=== PATIENT | female | born 1955 | race Caucasian/White ===

== ENCOUNTER → 2016-11-01 | Outpatient (CLI) | payer BC, OTHER ==
[~2016-11-01] MED LIST: ACET-2267 PO; AMLO5TAB2 PO; CCLB10TRX; CIPR500T4 PO; FLUT1DIS26 IH; IBP800T; LEVO50TA6 PO; ONDA4TAB11 PO; POTA10TA10 PO; PRD20T PO; RT-ALBUINH IH; SIMV20TA3 PO; SULF-222 PO; TRIA1TAB3 PO; TRIAMTERENE/HCTZ; VENL150T PO; VNL75CCR
== END ==
LOC: RT 13:11
PROVIDERS: ATTEND Internal Medicine
DX: J84.9 Interstitial pulmonary disease, unspecified (principal)
CPT/HCPCS: 94060; 94726; 94729

== ENCOUNTER → 2017-04-04 | Outpatient (CLI) | payer BC ==
[2017-04-04 16:05] LABS: BASOPHILS % (AUTO) 1 % (0-10); EOSINOPHILS # (AUTO) 0.1 10^3/uL (0.0-0.3); EOSINOPHILS % (AUTO) 1 % (0-10); LYMPHOCYTES % (AUTO) 32 % (12-44); MEAN CORPUSCULAR HEMOGLOBIN 28 PG (25-34); MEAN CORPUSCULAR HGB CONC 32 G/DL (32-36); MEAN CORPUSCULAR VOLUME 87 FL (80-99); MEAN PLATELET VOLUME 10.1 FL (7.4-10.4); MONOCYTES % (AUTO) 16 % (0-12); NEUTROPHILS # (AUTO) 3.2 X 10^3 (1.8-7.8); NEUTROPHILS % (AUTO) 50 % (42-75); PLATELET COUNT 321 10^3/uL (130-400); RED BLOOD COUNT 4.64 10^6/uL (4.35-5.85); RED CELL DISTRIBUTION WIDTH 13.3 % (10.0-14.5); WHITE BLOOD COUNT 6.4 10^3/uL (4.3-11.0)
== END ==
LOC: LAB 15:46
DX: Z51.81 Encounter for therapeutic drug level monitoring (principal)
CPT/HCPCS: 36415; 85025

== ENCOUNTER → 2017-04-21 | Outpatient (CLI) | payer BC ==
[2017-04-21 15:44] LABS: ALBUMIN 4.1 GM/DL (3.2-4.5); BILIRUBIN,TOTAL 0.3 MG/DL (0.1-1.0); CALCIUM 10.1 MG/DL (8.5-10.1); CREATININE SERUM 1.37 MG/DL (0.60-1.30); POTASSIUM 3.7 MMOL/L (3.6-5.0); TOTAL PROTEIN 6.9 GM/DL (6.4-8.2); hs C REACTIVE PROTEIN 0.47 MG/DL (0.00-0.50)
--- NOTE | 2017-04-21 19:19 | Diagnostic Imaging Report ---
Three views of the right knee. INDICATION: Right knee pain. FINDINGS: No fracture, dislocation or radiopaque foreign body is seen. No suprapatellar effusion is noted. IMPRESSION: Unremarkable exam. Dictated by: Dictated on workstation # [id number]
[2017-04-23 13:34] LABS: ALDOLASE 4.3 U/L (1.5-8.1)
== END ==
LOC: RAD 14:54
PROVIDERS: ATTEND Internal Medicine Rheumatology
DX: M25.561 Pain in right knee (principal); M33.21 Polymyositis with respiratory involvement
CPT/HCPCS: 36415; 73562; 80053; 82085; 82550; 82784; 85652; 86141

== ENCOUNTER → 2017-08-03 | Outpatient (CLI) | payer BC | LOC: RT 14:59 | PROVIDERS: ATTEND Internal Medicine | DX: J84.9 Interstitial pulmonary disease, unspecified (principal) ==

== ENCOUNTER 2017-09-16 11:37 | Outpatient (RCR) | payer BC ==
[2017-09-16 12:33] LABS: BASOPHILS % (AUTO) 0 % (0-10); EOSINOPHILS # (AUTO) 0.1 10^3/uL (0.0-0.3); EOSINOPHILS % (AUTO) 1 % (0-10); HEMATOCRIT 46 % (35-52); HEMOGLOBIN 15.2 G/DL (11.5-16.0); LYMPHOCYTES # (AUTO) 1.6 X 10^3 (1.0-4.0); LYMPHOCYTES % (AUTO) 20 % (12-44); MEAN CORPUSCULAR HEMOGLOBIN 28 PG (25-34); MEAN CORPUSCULAR HGB CONC 33 G/DL (32-36); MEAN CORPUSCULAR VOLUME 86 FL (80-99); MEAN PLATELET VOLUME 9.7 FL (7.4-10.4); MONOCYTES # (AUTO) 1.3 X 10^3 (0.0-1.0); MONOCYTES % (AUTO) 16 % (0-12); NEUTROPHILS # (AUTO) 5.1 X 10^3 (1.8-7.8); NEUTROPHILS % (AUTO) 63 % (42-75); PLATELET COUNT 287 10^3/uL (130-400); RED BLOOD COUNT 5.39 10^6/uL (4.35-5.85); RED CELL DISTRIBUTION WIDTH 14.3 % (10.0-14.5); WHITE BLOOD COUNT 8.2 10^3/uL (4.3-11.0)
== END 2017-12-15 | disposition home or self-care (01) ==
LOC: LAB 11:37
PROVIDERS: ATTEND Internal Medicine Rheumatology
DX: Z51.81 Encounter for therapeutic drug level monitoring (principal); Z79.899 Other long term (current) drug therapy
CPT/HCPCS: 36415; 85025

== ENCOUNTER → 2017-09-16 | Outpatient (CLI) | payer BC ==
--- NOTE | 2017-09-16 13:13 | Diagnostic Imaging Report ---
PROCEDURE: CT chest without contrast. TECHNIQUE: Multiple contiguous axial images were obtained through the chest without the use of intravenous contrast. INDICATION: Interstitial lung disease, followup. Comparison is made with prior CT from 07/15/2015. No axillary lymphadenopathy is detected. Hilar and mediastinal evaluation is limited without intravenous contrast but no gross abnormality is seen. No pericardial or pleural fluid is identified on today's study. There has been significant improvement in the patchy bilateral airspace infiltrates when compared to examination from June 2015. Many infiltrates have largely cleared. The minimal residual patchy airspace infiltrates right upper lobe as well as superior segment of the right lower lobe, right middle lobe and lingula are seen. Some minimal patchy infiltrate in the left lower lobe. Left lower lobe, image 17 is noted measuring 3 mm. This was likely present on prior exam, however, was obscured by numerous infiltrates at this location. Tiny nodule subpleural posterolateral right lower lobe is seen, image 30 measuring 4 mm. No other abnormality is seen. Upper abdomen is unremarkable. IMPRESSION: Patchy bilateral upper and lower lobe pulmonary infiltrates, however, this is significantly improved when compared with prior CT from 07/15/2015. There has been resolution of previously noted small bilateral pleural effusions as well. Dictated by: Dictated on workstation # [id number]
== END ==
LOC: RAD 11:40
PROVIDERS: ATTEND Internal Medicine
DX: J84.9 Interstitial pulmonary disease, unspecified (principal); R91.8 Other nonspecific abnormal finding of lung field
CPT/HCPCS: 71250

== ENCOUNTER 2018-09-30 10:00 | Inpatient (IN) | payer SELFPAY ==
[~2018-09-30] VITALS: Ht 154.9 cm; Wt 76.8 kg
[2018-09-30] VITALS (12 sets, daily range): BP systolic 132–162; BP diastolic 69–99
[~2018-09-30 10:00] MED LIST changes: -AMLO5TAB2 PO; +AMLO5TAB9 PO
[2018-09-30] MEDS ORDERED: NS IV 1000 ML 1,000 ML IV ONE ×2 (10:27→11:25)
[2018-09-30 10:35] LABS: BASOPHILS % (AUTO) 0 % (0-10); EOSINOPHILS % (AUTO) 0 % (0-10); HEMATOCRIT 47 % (35-52); HEMOGLOBIN 15.5 G/DL (11.5-16.0); LYMPHOCYTES # (AUTO) 1.9 X 10^3 (1.0-4.0); LYMPHOCYTES % (AUTO) 10 % (12-44); MEAN CORPUSCULAR HEMOGLOBIN 28 PG (25-34); MEAN CORPUSCULAR HGB CONC 33 G/DL (32-36); MEAN CORPUSCULAR VOLUME 84 FL (80-99); MONOCYTES # (AUTO) 2.2 X 10^3 (0.0-1.0); MONOCYTES % (AUTO) 12 % (0-12); NEUTROPHILS # (AUTO) 14.6 X 10^3 (1.8-7.8); NEUTROPHILS % (AUTO) 78 % (42-75); PLATELET COUNT 402 10^3/uL (130-400); RED CELL DISTRIBUTION WIDTH 14.9 % (10.0-14.5); WHITE BLOOD COUNT 18.7 10^3/uL (4.3-11.0)
[2018-09-30] MEDS ORDERED: METO-352 PO (10:38)
[2018-09-30] MEDS ORDERED: VENL150C PO (10:38)
[2018-09-30] MEDS ORDERED: GABA-486 PO (10:38)
[2018-09-30] MEDS ORDERED: GABA-488 PO (10:38)
[2018-09-30] MEDS ORDERED: CLON0.1T PO (10:38)
[2018-09-30] MEDS ORDERED: METO-370 PO (10:38)
[2018-09-30] MEDS ORDERED: MYCO500T34 PO (10:38)
[2018-09-30 10:48] LABS: ALBUMIN 3.8 GM/DL (3.2-4.5); BILIRUBIN,TOTAL 0.4 MG/DL (0.1-1.0); CALCIUM 9.8 MG/DL (8.5-10.1); CREATININE SERUM 2.5 MG/DL (0.60-1.30); POTASSIUM 3.6 MMOL/L (3.6-5.0); TOTAL PROTEIN 6.6 GM/DL (6.4-8.2)
--- NOTE | 2018-09-30 10:49 | ED General ---
General Chief Complaint: Dizziness/Syncope Stated Complaint: NAUSEA, DIZZY, PAIN IN RIGHT LEG, SWEATING Nursing Triage Note: PT PRESENTS TO ED WITH COMPLAINTS OF NAUSEA, DIZZINESS, BILATERAL UPPER THIGH PAIN, L MEDIAL BACK PAIN, AND INCREASED SWEATING. PT STATES WHEN SHE GOT TO WORK THIS AM SHE DID NOT FEEL WELL, MORE TIRED THAN USUAL AND BECAME DIZZY AND DIAPHORETIC. PT HAS HX OF AUTOIMMUNE DZ AND PER DAUGHTER OVER THE PAST MONTH HAS HAD ISSUES WITH HER ELECTROLYTES AND CREATININE LEVELS. Nursing Sepsis Screen: No Definite Risk Source of Information: Patient, Family Exam Limitations: No Limitations History of Present Illness Date Seen by Provider: Sep 30, 2018 Time Seen by Provider: 10:17 Initial Comments This 62-year-old woman presents to the emergency room with complaints of dizziness, diaphoresis, leg aches, nausea, mild cough, and diarrhea this morning. She has multiple chronic problems including interstitial lung disease and polymyositis. She last received a Rituxan injection about 4 days ago. She had previously been on CellCept and is to restart it but has not due to insurance issues. She is afebrile and mildly tachycardic. She also reports increasing creatinine recently. She reports her last creatinine was 1.7 and she is to have it rechecked by Dr. Maya. Dr. Maya is her primary care provider. 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 Eliseo Sorto at [facility]. Allergies and Home Medications Allergies Coded Allergies: No Known Drug Allergies (Verified , 09/01/07) Home Medications Clonidine HCl 0.1 Mg Tablet, 0.1 MG PO DAILY, (Reported) Gabapentin 300 Mg Capsule, 300 MG PO HS, (Reported) Gabapentin 100 Mg Capsule, 100 MG PO DAILY, (Reported) Levothyroxine Sodium 50 Mcg Tablet, 50 MCG PO HS, (Reported) Metoprolol Succinate 50 Mg Tab.er.24h, 50 MG PO DAILY, (Reported) Metoprolol Succinate 50 Mg Tab.er.24h, 50 MG PO DAILY, (Reported) Mycophenolate Mofetil 500 Mg Tablet, 500 MG PO BID, (Reported) Potassium Chloride 10 Meq Tablet.er, 10 MEQ PO DAILY, (Reported) Venlafaxine HCl 150 Mg Cap.er.24h, 150 MG PO DAILY, (Reported) Patient Home Medication List Home Medication List Reviewed: Yes Review of Systems Review of Systems Constitutional: see HPI EENTM: no symptoms reported Respiratory: see HPI Cardiovascular: other (tachycardia) Gastrointestinal: see HPI Genitourinary: see HPI Musculoskeletal: see HPI Skin: no symptoms reported Psychiatric/Neurological: No Symptoms Reported Hematologic/Lymphatic: No Symptoms Reported Immunological/Allergic: see HPI Past Dvqbdok-Dwpbed-Mqxfyo Hx Past Med/Social Hx: Reviewed and Corrections made Patient Social History Alcohol Use: Denies Use Recreational Drug Use: No Smoking Status: Never a Smoker 2nd Hand Smoke Exposure: No Recent Foreign Travel: No Contact w/Someone Who Travel: No Recent Infectious Disease Expo: No Recent Hopitalizations: Yes (CHILDBIRTH ONLY) Past Medical History Surgeries: Yes (ORAL WORK ONLY) Gallbladder Respiratory: Yes (inerstitial lung disease) Cardiac: Yes High Cholesterol, Hypertension Neurological: Yes Neuropathy Reproductive Disorders: No Genitourinary: Yes (HISTORY OF ACUTE RENAL FAILURE) Gastrointestinal: No (RECENT DIAHRREA) Gastroesophageal Reflux Musculoskeletal: Yes (polymyositis) Endocrine: Yes (OVERLAP SYNDROME) Hypothyroidsim HEENT: No Loss of Vision: Denies Hearing Impairment: Denies Cancer: No Psychosocial: Yes Anxiety Integumentary: No Blood Disorders: No Adverse Reaction/Blood Tranf: No Family Medical History No Pertinent Family Hx Physical Exam Vital Signs Vital Signs - First Documented 09/30/18 09/30/18 10:20 14:05 Temp 96.7 Pulse 105 Resp 20 B/P (MAP) 133/80 (97) Pulse Ox 93 O2 Delivery Room Air Capillary Refill : Less Than 3 Seconds Height, Weight, BMI Height: 5'1.00" Weight: 170lbs. 6.0oz. 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63 MMOL/L (0.50-2.00) *H 1.43 MMOL/L (0.50-2.00) Progress/Results/Core Measures Suspected Sepsis Recent Fever Within 48 Hours: No Infection Criteria Present: None New/Unexplained Altered Menta: No Sepsis Screen: No Definite Risk SIRS Temperature:96.7 Pulse: 105 Respiratory Rate: 20 Laboratory Tests 09/30/18 10:00: White Blood Count 18.7H Blood Pressure 133 /80 Mean: 97 09/30/18 11:42: Lactic Acid Level 2.63*H 09/30/18 13:58: Lactic Acid Level 1.43 Laboratory Tests 09/30/18 10:00: Creatinine 2.50H, Platelet Count 402H, Total Bilirubin 0.4 Results/Orders Lab Results Laboratory Tests Test 09/30/18 10:00 09/30/18 11:42 09/30/18 13:58 Range/Units White Blood Count 18.7 H 4.3-11.0 10^3/uL Red Blood Count 5.62 4.35-5.85 10^6/uL Hemoglobin 15.5 11.5-16.0 G/DL Hematocrit 47 35-52 % Mean Corpuscular Volume 84 80-99 FL Mean Corpuscular Hemoglobin 28 25-34 PG Mean Corpuscular Hemoglobin Concent 33 32-36 G/DL Red Cell Distribution Width 14.9 H 10.0-14.5 % Platelet Count 402 H 130-400 10^3/uL Mean Platelet Volume 10.0 7.4-10.4 FL Neutrophils (%) (Auto) 78 H 42-75 % Lymphocytes (%) (Auto) 10 L 12-44 % Monocytes (%) (Auto) 12 0-12 % Eosinophils (%) (Auto) 0 0-10 % Basophils (%) (Auto) 0 0-10 % Neutrophils # (Auto) 14.6 H 1.8-7.8 X 10^3 Lymphocytes # (Auto) 1.9 1.0-4.0 X 10^3 Monocytes # (Auto) 2.2 H 0.0-1.0 X 10^3 Eosinophils # (Auto) 0.0 0.0-0.3 10^3/uL Basophils # (Auto) 0.0 0.0-0.1 10^3/uL Neutrophils % (Manual) 87 % Lymphocytes % (Manual) 4 % Monocytes % (Manual) 9 % Eosinophils % (Manual) 0 % Basophils % (Manual) 0 % Band Neutrophils 0 % Blood Morphology Comment NORMAL Erythrocyte Sedimentation Rate 1 0-30 MM/HR Sodium Level 139 135-145 MMOL/L Potassium Level 3.6 3.6-5.0 MMOL/L Chloride Level 105 98-107 MMOL/L Carbon Dioxide Level 21 21-32 MMOL/L Anion Gap 13 5-14 MMOL/L Blood Urea Nitrogen 25 H 7-18 MG/DL Creatinine 2.50 H 0.60-1.30 MG/DL Estimat Glomerular Filtration Rate 20 BUN/Creatinine Ratio 10 Glucose Level 144 H 70-105 MG/DL Calcium Level 9.8 8.5-10.1 MG/DL Corrected Calcium 10.0 8.5-10.1 MG/DL Total Bilirubin 0.4 0.1-1.0 MG/DL Aspartate Amino Transf (AST/SGOT) 22 5-34 U/L Alanine Aminotransferase (ALT/SGPT) 13 0-55 U/L Alkaline Phosphatase 99 40-136 U/L Total Creatine Kinase 164 29-168 U/L Myoglobin 432.8 H 10.0-92.0 NG/ML C-Reactive Protein High Sensitivity 2.14 H 0.00-0.50 MG/DL Total Protein 6.6 6.4-8.2 GM/DL Albumin 3.8 3.2-4.5 GM/DL Lactic Acid Level 2.63 *H 1.43 0.50-2.00 MMOL/L Micro Results Microbiology 09/30/18 Influenza Types A,B Antigen (KELLY) - Final, Complete My Orders Orders - AFSHIN TAI MD Cbc With Automated Diff (09/30/18 10:27) Comprehensive Metabolic Panel (09/30/18 10:27) Creatine Kinase (09/30/18 10:27) Hs C Reactive Protein (09/30/18 10:27) Ua Culture If Indicated (09/30/18 10:27) Influenza A And B Antigens (09/30/18 10:27) Erythrocyte Sedimentation Rate (09/30/18 10:27) Myoglobin Serum (09/30/18 10:27) Saline Lock/Iv-Start (09/30/18 10:27) Chest Pa/Lat (2 View) (09/30/18 10:27) Ns Iv 1000 Ml (Sodium Chloride 0.9%) (09/30/18 10:27) Manual Differential (09/30/18 10:00) Ns Iv 1000 Ml (Sodium Chloride 0.9%) (09/30/18 11:25) Blood Culture (09/30/18 11:33) Lactic Acid Analyzer (09/30/18 11:33) Piperacillin/Tazobactam (Bulk) (Zosyn In (09/30/18 12:30) Methylprednisolone Sod Succ (Solu-Medrol (09/30/18 12:30) Saline Lock/Iv-Start (09/30/18 12:24) Ns Iv 500 Ml (Sodium Chloride 0.9%) (09/30/18 12:24) Bladder Scan (09/30/18 12:34) General/Regular (09/30/18 Lunch) Medications Given in ED Current Medications Medications Dose Ordered Sig/Shannan Route Start Time Stop Time Status Last Admin Dose Admin Sodium Chloride 500 ml @ 0 mls/hr Q0M ONCE IV 09/30/18 12:24 09/30/18 12:25 DC 09/30/18 14:40 0 MLS/HR Sodium Chloride 1,000 ml @ 0 mls/hr Q0M ONCE IV 09/30/18 10:27 09/30/18 10:29 DC 09/30/18 10:42 0 MLS/HR Sodium Chloride 1,000 ml @ 0 mls/hr Q0M ONCE IV 09/30/18 11:25 09/30/18 11:26 DC 09/30/18 11:44 0 MLS/HR Vital Signs/I&O 09/30/18 09/30/18 09/30/186/19 10:20 14:00 14:05 14:15 Temp 96.7 98.2 Pulse 105 67 77 Resp 20 20 20 B/P (MAP) 133/80 (97) 161/78 (105) 142/69 Pulse Ox 93 98 95 95 O2 Delivery Room Air Room Air Capillary Refill : Less Than 3 Seconds Blood Pressure Mean: 97 Progress Note #1: Time: 11:45 Progress Note Patient has been seen and evaluated. Labs have been reviewed. She has a leukocytosis of 18. Also myoglobin is mildly elevated but CK is normal. Creatinine has bumped up to 2.5. She will receive a second liter of IV fluid. She has not yet been able to urinate to provide a urine specimen. There is suspicion of new interstitial lung disease involvement in the right midlung versus infiltrate. In the context of her leukocytosis, consideration should be given for a new infectious process. Blood cultures and lactic acid will be drawn. UA will be collected as soon as she is able to provide it. Vital signs are stable at this time. Progress Note #2: Time: 12:41 Progress Note Presuming the infiltrate in the right midlung is related to pneumonia, patient meets severe sepsis criteria because of the acute on chronic renal failure. We will treat her accordingly. She is receiving her second liter of IV normal saline now. A total of 2500 mL has been ordered in the ER to complete a 30 ML per kilogram bolus. Zosyn will be initiated in the ER for initial treatment of pneumonia. Case was discussed with Dr. BRENNAN and Dr. Terrell. Based on discussions she will receive Solu-Medrol 125 mg IV as a steroid bolus in the ER. Dr. Terrell requests Solu-Medrol 40 mg IV every 6 and empiric broad- spectrum antibiotic coverage with Zosyn and vancomycin since she is immunocompromised. Progress Note #3: Progress Note Patient received Zosyn in the ER. Patient felt as though she needed to urinate but could not. Bladder scan only revealed 30 ML of urine. Urine specimen cannot be obtained in the ER due to patient's inability to urinate. She received 1500 mL normal saline in the ER with fluid still running and she was transferred to the floor. A second IV was initiated. Instructions were given to completely 2500 mL bolus on the floor. Diagnostic Imaging Diagonstic Imaging: Xray Plain Films/CT/US/NM/MRI: chest Comments Chest x-ray viewed by me and report reviewed. Compared with prior. See report below: NAME: ADDY SIMMONS [facility] REC#: [id number] PT STATUS: REG ER : 1955 PHYSICIAN: AFSHIN TAI MD ADMIT DATE: 09/30/18/ER Draft Date of Exam:09/30/18 CHEST PA/LAT (2 VIEW) EXAMINATION: CHEST (PA AND LATERAL) CLINICAL INDICATION: 62-year-old female, dizziness, syncope. COMPARISON: July 19, 2015. FINDINGS: Stable overall appearance of the cardiomediastinal silhouette. There is no identified pneumothorax. There is no pleural effusion. There are streaky opacities in the left lung base, right midlung, and right lower lobe which are grossly unchanged since comparison exam. The right mid lung opacities; however, are more prominent. There are abdominal surgical clips in the right upper quadrant likely relating to prior cholecystectomy. IMPRESSION: Predominantly unchanged linear opacities in the lungs bilaterally since 2016 suggesting chronic lung changes although there are more prominent linear opacities in the right midlung which could relate to interval progression of chronic lung changes, atelectasis, and/or infiltrate. Dictated on workstation # [id number] Dict: 09/30/18 1058 Trans: 09/30/18 1109 [facility] [id number] Interpreted by: GASTON VEGA MD Departure Communication (Admissions) Time/Spoke to Admitting Phy: 12:10 Dr. BRENNAN Time/Spoke to Consulting Phy: 12:15 Dr. Terrell Impression Primary Impression: Severe sepsis Additional Impressions: Pneumonia Qualified Codes: J18.1 - Lobar pneumonia, unspecified organism Acute on chronic renal failure Qualified Codes: N17.9 - Acute kidney failure, unspecified; N18.9 - Chronic kidney disease, unspecified Elevated myoglobin level Immunocompromised state Diarrhea Qualified Codes: R19.7 - Diarrhea, unspecified Disposition: ADMITTED INPATIENT Condition: Improved Admissions Decision to Admit Reason: Admit from ER (General) Decision to Admit/Date: Sep 30, 2018 Time/Decision to Admit Time: 12:05 Departure-Patient Inst. Referrals: ANALI MAYA MD (PCP/Family) Primary Care Physician AFSHIN TAI MD Sep 30, 2018 10:49
--- NOTE | 2018-09-30 11:10 | Diagnostic Imaging Report ---
EXAMINATION: CHEST (PA AND LATERAL) CLINICAL INDICATION: 62-year-old female, dizziness, syncope. COMPARISON: July 19, 2015. FINDINGS: Stable overall appearance of the cardiomediastinal silhouette. There is no identified pneumothorax. There is no pleural effusion. There are streaky opacities in the left lung base, right midlung, and right lower lobe which are grossly unchanged since comparison exam. The right mid lung opacities; however, are more prominent. There are abdominal surgical clips in the right upper quadrant likely relating to prior cholecystectomy. IMPRESSION: Predominantly unchanged linear opacities in the lungs bilaterally since 2016 suggesting chronic lung changes although there are more prominent linear opacities in the right midlung which could relate to interval progression of chronic lung changes, atelectasis, and/or infiltrate. Dictated by: Dictated on workstation # [id number]
[2018-09-30 11:13] LABS: BAND NEUTROPHILS 0 %; BASOPHILS % (MANUAL) 0 %; EOSINOPHILS % (MANUAL) 0 %; ERYTHROCYTE SEDIMENTATION RATE 1 MM/HR (0-30); LYMPHOCYTES % (MANUAL) 4 %; MONOCYTES % (MANUAL) 9 %; NEUTROPHILS % (MANUAL) 87 %; RBC MORPH NORMAL
[2018-09-30] MEDS ORDERED: NS IV 500 ML 500 ML IV ONE (12:24)
[2018-09-30] MEDS ORDERED: PIPERACILLIN/TAZOBACTAM (BULK) 4.5 GM in NS (IVPB) 100 ML IV ONE (12:30)
[2018-09-30] MEDS ORDERED: methylPREDNISolone 125 MG (Solu-MEDROL) VIAL IVP ONE (12:30)
--- OUTSIDE RECORDS SUMMARY | 2018-09-30 13:17 | XMS REPORT | Encounter Summary ---
Author Author [facility] Organization [facility] Address Unknown Phone Unavailable Care Team Providers Care Keel Press Operator Name Role Phone Damian Lamar MD Unavailable Meghana Maya MD PCP Brad Marr RN 2 Unavailable Buck Sol MD Unavailable Neo Burrell MD Unavailable Mychart, Generic Provider Unavailable Unavailable Fly Hyatt MD Unavailable Dione Vera MD Unavailable Madhav Morales MD Unavailable Brooke Lugo RN Unavailable Unavailable Reason for Visit * Reason Comments Appointment Request Encounter Details Care Team Description Date Type Department Monik Sorto, DO [address] [facility] [address] [place] [address] Appointment Request 09/29/2018 Telephone [facility] [id number] [place] [address] Social History Date Tobacco Use Types Packs/Day Years Used Never Smoker Smokeless Tobacco: Never Used Alcohol Use Drinks/Week oz/Week Comments No 0 Standard 0.0 drinks or equivalent Sex Assigned at Date Recorded Not on file Industry Job Start Date Occupation Not on file Not on file Not on file Travel End Travel History Travel Start No recent travel history available. documented as of this encounter Functional Status Date of Assessment Functional Status Response 09/26/2018 Does the patient have a hearing impairment: No 09/26/2018 Does the patient have a visual impairment: Yes 09/26/2018 Does the patient have impaired ambulation: No 09/26/2018 Does the patient have an activity of daily living No (ADL) impairment: 09/26/2018 Does the patient have an instrumental activity of No daily living (IADL) impairment: Date of Assessment Cognitive Status Response 09/26/2018 Does the patient have a cognitive impairment: No documented as of this encounter Miscellaneous Notes * Telephone Encounter - Rosendo Duran RN - 09/29/2018 10:03 AM CDT Sending message via Tri[employer] * Telephone Encounter - Rosendo Duran RN - 09/29/2018 10:03 AM CDT ----- Message from Monik Sorto DO sent at 09/29/2018 9:58 AM CDT ----- Rosendo, for Ms. Angel - could you reach out to her to refer her to scheduling - she cancelled her follow-up appointment and did not make another one. Also, could you ask if she has a PCP. Ideally her PCP should be following her creatinine. Thanks. Monik Sorto documented in this encounter Plan of Treatment Not on filedocumented as of this encounter Visit Diagnoses Not on filedocumented in this encounter
--- OUTSIDE RECORDS SUMMARY | 2018-09-30 13:17 | XMS REPORT | Encounter Summary ---
Author Author [facility] Organization [facility] Address Unknown Phone Unavailable Care Team Providers Care Washroom Operator Name Role Phone Damian Lamar MD Unavailable Meghana Maya MD PCP Brad Marr RN 2 Unavailable Buck Sol MD Unavailable Neo Burrell MD Unavailable Mychart, Generic Provider Unavailable Unavailable Fly Hyatt MD Unavailable Dione Vera MD Unavailable Madhav Morales MD Unavailable Brooke Lugo RN Unavailable Unavailable Reason for Visit * Reason Comments Results Encounter Details Care Team Description Date Type Department Monik Sorto, DO [address] [facility] [address] [place] [address] Results 09/27/2018 Telephone [facility] [address] [place], [place] [id number] Social History Date Tobacco Use Types Packs/Day [...] Telephone Encounter - Rosendo Duran RN - 09/28/2018 1:27 PM CDT Replying via M-Audio * Telephone Encounter - Monik Sorto DO - 09/28/2018 12:27 PM CDT I would recommend increasing fluid intake to ensure adequate hydration. I will order a repeat Cr, which can be drawn before your next infusion. She can ask them to draw the lab then. Thanks. * Telephone Encounter - Rosendo Duran RN - 09/27/2018 2:02 PM CDT Pt responded to Dr. Sorto's questions concerning worsening kidney function. Pt isn't taking NSAID's Routing to Dr. Sorto for review/recommendations? * Telephone Encounter - Rosendo Duran RN - 09/27/2018 2:02 PM CDT Regarding: RE:lab results Contact: ----- Message from Marysol Malone sent at 09/27/2018 1:38 PM CDT ----- I have been taking Acetaminophen 250mg 2 tabs 2-3 times a day for pain in my back and my legs. I dont think I have taken any since Tuesday. I am trying to drink as much as I can. ----- Message ----- From: NURSE Rosendo Ocasio Sent: 09/27/2018 12:35 PM CDT To: Carolann Angel Subject: lab results Ashu Vuong, Below is Dr. Sorto's review of your recent labs and follow up questions, "-Kidney function is slowly worsening. -Blood counts are stable -Liver tests are normal. -CRP, inflammatory marker, is elevated. -Are you staying well hydrated and are you taking NSAIDs? Thanks." In case you were wondering the kidney function lab is creatinine and on 09-12-18 you were at 1.6 and on 09-26-18 you were at 1.7 (normal range is 0.4-1.0) Taking NSAID's like ibuprofen and aleve as well as something as simple as being dehydrated can make this worse, which is why Dr. Sorto is asking the above questions. Rosendo North RN documented in this encounter Plan of Treatment Order Schedule Name Priority Associated Diagnoses Expected: 10/09/2018, Expires: 09/29/2019 CREATININE Routine Elevated serum creatinine documented as of this encounter Visit Diagnoses Diagnosis Elevated serum creatinine - Primary Other nonspecific findings on examination of blood documented in this encounter
--- OUTSIDE RECORDS SUMMARY | 2018-09-30 13:17 | XMS REPORT | Encounter Summary ---
Author Author [facility] Organization [facility] Address Unknown Phone Unavailable Care Team Providers Care Shop Helper Name Role Phone Damian Lamar MD Unavailable Meghana Maya MD PCP Brda Marr RN 2 Unavailable Buck Sol MD Unavailable Neo Burrell MD Unavailable Mychart, Generic Provider Unavailable Unavailable Fly Hyatt MD Unavailable Dione Vera MD Unavailable Madhav Morales MD Unavailable Brooke Lugo RN Unavailable Unavailable Reason for Visit * Reason Comments Labs Only Encounter Details Care Team Description Date Type Department Michelle Rooney MD [address] [facility] [address] [place] [address] Labs Only 09/12/2018 Telephone [facility] [address] [place], [place] [id number] Social History Date Tobacco Use Types Packs/Day [...] Status Date of Assessment Functional Status Response 02/06/2018 Does the patient have a hearing impairment: No 02/06/2018 Does the patient have a visual impairment: Yes 02/06/2018 Does the patient have impaired ambulation: No 02/06/2018 Does the patient have an activity of daily living No (ADL) impairment: 02/06/2018 Does the patient have an instrumental activity of No daily living (IADL) impairment: Date of Assessment Cognitive Status Response 02/06/2018 Does the patient have a cognitive impairment: No documented as of this encounter Miscellaneous Notes * Telephone Encounter - Michelle Rooney MD - 09/12/2018 8:12 PM CDT Called by [employer] about patient's results. Discovered that this was likely because of your potassium. She believes she is on potassium but it was recalled. On clarification she realizes that this was actually losartan potassium. Her PCP is Dr. Maya. She denies any cardiac symptoms or recent changes in her health. The last time she had shortness of breath was when she needed to climb stairs to get Dr. Sorto 's office. We discussed how if she develops any new cardiovascular symptoms, or other concerning symptoms she needs to go to the emergency room. Tomorrow she needs to discuss this first thing with her PCP, who manages her electrolytes and other labs on a regular basis. I instructed her to call us if she has not heard from her PCP within the next 24 hours. She verbalized understanding and agreement with the plan. documented in this encounter Plan of Treatment Not on filedocumented as of this encounter Visit Diagnoses Not on filedocumented in this encounter
--- OUTSIDE RECORDS SUMMARY | 2018-09-30 13:17 | XMS REPORT | Clinical Summary ---
Author Author [facility] Organization [facility] Address Unknown Phone Unavailable Care Team Providers Care Desktop Support Engineer Name Role Phone Damian Lamar MD Unavailable Meghana Maya MD PCP Brad Marr RN 2 Unavailable Buck Sol MD Unavailable Neo Burrell MD Unavailable Mychart, Generic Provider Unavailable Unavailable Fly Hyatt MD Unavailable Dione Vera MD Unavailable Madhav Morales MD Unavailable Brooke Lugo RN Unavailable Unavailable Source Comments Some departments are not documenting in the electronic medical record. If you do not see the information that you expected, contact Release of Information in the Health Information Management department at [phone] for further assistance in locating additional records.[facility] Allergies Comments Active Allergy Reactions Severity Noted Date Seasonal Allergies RHINORRHEA, Low 12/09/2016 SNEEZING Medications End Date Status Medication Sig Dispensed Refills Start Date Active venlafaxine XR (EFFEXOR Take 150 mg 0 XR) 150 mg capsule by mouth daily. Active coenzyme Q10(+) 100 mg Take 100 mg 0 cap by mouth once. Active metoprolol XL (TOPROL XL) Take 75 mg by 0 25 mg extended release mouth daily. tablet Active cloNIDine (CATAPRESS) 0.1 4 mg tablet 8 Active metoprolol XL (TOPROL XL) 4 50 mg extended release 8 tablet Active potassium chloride 4 (K-DUR) 10 mEq tablet 8 Active gabapentin (NEURONTIN) TAKE ONE 90 capsule 1 300 mg capsule CAPSULE BY 8 MOUTH EVERY NIGHT AT BEDTIME Active mycophenolate mofetil TAKE TWO 180 tablet 0 (CELLCEPT) 500 mg tablet TABLETS BY 8 MOUTH TWICE A DAY. DUE FOR LABS Active Problems Problem Noted Date Meralgia paraesthetica, right 09/07/2018 Long-term current use of rituximab 09/07/2018 Weakness 09/07/2018 Hyperhidrosis 12/11/2016 Neuropathy 12/11/2016 Gastroesophageal reflux disease without esophagitis 11/08/2016 Current chronic use of systemic steroids 05/14/2016 Obesity, Class I, BMI 30-34.9 05/14/2016 Overview: BMI 34.8 on 05/13/2016 Encounter for long-term (current) use of high-risk medication 05/13/2016 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 10/06/2015 Chronic respiratory failure with hypoxia 10/06/2015 ILD (interstitial lung disease) 10/06/2015 Positive GEMA (antinuclear antibody) 08/21/2015 P-ANCA and MPO antibodies positive 08/21/2015 Weakness of right hip 08/21/2015 Myositis associated antibody positive 08/21/2015 Respiratory distress 07/20/2015 Polymyositis associated with autoimmune disease Encounters Care Team Description Date Type Specialty Monik Sorto DO Appointment Request 09/29/2018 Telephone Rheumatology Monik Sorto DO 09/29/2018 Orders Only Rheumatology Monik Sorto DO Results 09/27/2018 Telephone Rheumatology Monik Sorto DO Overlap syndrome (HCC) (Primary Dx); Chronic respiratory failure with hypoxia (HCC); ILD (interstitial lung disease) (HCC); Positive GEMA (antinuclear antibody); P-ANCA and MPO antibodies positive; Weakness of right hip; Myositis associated antibody positive; Polymyositis with respiratory involvement (HCC) 09/26/2018 Infusion Infusion Michael Cleveland Antwon 09/20/2018 Orders Only Infusion Michelle Rooney MD Labs Only 09/12/2018 Telephone Monik Yang DO 09/11/2018 Orders Only Rheumatology Monik Sorto DO General Question 09/07/2018 Telephone Rheumatology Sorto, Monik L., DO Myalgia (Primary Dx); Meralgia paraesthetica, right; Polymyositis with respiratory involvement (HCC); Weakness; ILD (interstitial lung disease) (HCC); Raynaud's disease without gangrene; Long-term current use of rituximab; Positive GEMA (antinuclear antibody); Myositis associated antibody positive 09/06/2018 Office Visit Rheumatology Dmitriy Rameshi 08/24/2018 Documentation Infusion Monik Sorto, General Question 08/22/2018 Telephone Rheumatology Monik Sorto, DO Infusion Therapy 08/16/2018 Telephone Rheumatology Monik Sorto, Infusion Therapy 08/07/2018 Telephone Rheumatology from Last 3 Months Family History Medical History Relation Name Comments Arthritis-rheumatoid Brother Juvenile onset Hypertension Maternal Grandmother Cancer Mother Hypertension Mother Relation Name Status Comments Brother Alive Brother Father Maternal Grandmother Mother Social History Date Tobacco Use Types Packs/Day Years Used Never Smoker Smokeless Tobacco: Never Used Alcohol Use Drinks/Week oz/Week Comments No 0 Standard 0.0 drinks or equivalent Sex Assigned at Date Recorded Not on file Industry Job Start Date Occupation Not on file Not on file Not on file Travel End Travel History Travel Start No recent travel history available. Last Filed Vital Signs Time Taken Vital Sign Reading 09/26/2018 1:50 PM CDT Blood Pressure 157/96 09/26/2018 1:50 PM CDT Pulse 85 09/26/2018 9:47 AM CDT Temperature 36.8 C (98.2 F) 09/06/2018 3:58 PM CDT Respiratory Rate 18 09/26/2018 9:47 AM CDT Oxygen Saturation 95% - Inhaled Oxygen - Concentration 09/26/2018 9:47 AM CDT Weight 79.7 kg (175 lb 12.8 oz) 09/26/2018 9:47 AM CDT Height 154.9 cm (5' 1") 09/26/2018 9:47 AM CDT Body Mass Index 33.22 Plan of Treatment Health Maintenance Due Date Last Done Comments PHYSICAL (COMPREHENSIVE) 11/01/1963 EXAM DTAP/TDAP VACCINES (1 - 1974 Tdap) CERVICAL CANCER SCREENING 1986 BREAST CANCER SCREENING 1996 COLORECTAL CANCER 2006 SCREENING SHINGLES RECOMBINANT 2006 VACCINE (1 of 2) INFLUENZA VACCINE 01/25/2019 HEPATITIS C SCREENING Completed 07/20/2015 HIV SCREENING Completed 07/20/2015 Procedures Comments Procedure Name Priority Date/Time Associated Diagnosis C REACTIVE PROTEIN (CRP) Routine 09/26/2018 Overlap syndrome (HCC) 2:00 PM CDT Chronic respiratory failure with hypoxia (HCC) ILD (interstitial lung disease) (HCC) Positive GEMA (antinuclear antibody) P-ANCA and MPO antibodies positive Weakness of right hip Myositis associated antibody positive Polymyositis with respiratory involvement (HCC) COMPREHENSIVE METABOLIC Routine 09/26/2018 Overlap syndrome (HCC) PANEL 2:00 PM CDT Chronic respiratory failure with hypoxia (HCC) ILD (interstitial lung disease) (HCC) Positive GEMA (antinuclear antibody) P-ANCA and MPO antibodies positive Weakness of right hip Myositis associated antibody positive Polymyositis with respiratory involvement (HCC) CBC AND DIFF Routine 09/26/2018 Overlap syndrome (HCC) 2:00 PM CDT Chronic respiratory failure with hypoxia (HCC) ILD (interstitial lung disease) (HCC) Positive GEMA (antinuclear antibody) P-ANCA and MPO antibodies positive Weakness of right hip Myositis associated antibody positive Polymyositis with respiratory involvement (HCC) ALDOLASE 09/12/2018 2:30 PM CDT CREATINE KINASE-CPK 09/12/2018 2:30 PM CDT CBC AND DIFF 09/12/2018 2:30 PM CDT COMPREHENSIVE METABOLIC 09/12/2018 PANEL 2:30 PM CDT from Last 3 Months Results * CBC AND DIFF (09/26/2018 2:00 PM CDT) Only the most recent of 2 results within the time period is included. White Blood 10.9 4.5 - 11.0 K/UL [facility] Cells RBC 4.32 4.0 - 5.0 M/UL [facility] Hemoglobin 12.1 12.0 - 15.0 GM/DL [facility] Hematocrit 37.0 36 - 45 % [facility] MCV 85.4 80 - 100 FL [facility] MCH 28.0 26 - 34 PG [facility] MCHC 32.8 32.0 - 36.0 G/DL [facility] RDW 15.0 11 - 15 % [facility] Platelet Count 272 150 - 400 K/UL [facility] MPV 8.3 7 - 11 FL [facility] Neutrophils 91 (H) 41 - 77 % [facility] Lymphocytes 6 (L) 24 - 44 % [facility] Monocytes 3 (L) 4 - 12 % [facility] Eosinophils 0 0 - 5 % [facility] Basophils 0 0 - 2 % [facility] Absolute 9.90 (H) 1.8 - 7.0 K/UL [facility] Neutrophil Count Absolute Lymph 0.60 (L) 1.0 - 4.8 K/UL [facility] Count Absolute 0.40 0 - 0.80 K/UL [facility] Monocyte Count Absolute 0.00 0 - 0.45 K/UL [facility] Eosinophil Count Absolute 0.00 0 - 0.20 K/UL [facility] Basophil Count Specimen Blood Performing Organization Address City[facility] Phone Number [facility] [address] [place] [address] * C REACTIVE PROTEIN (CRP) (09/26/2018 2:00 PM CDT) Pathologist [facility] C-Reactive 2.46 (H) <1.0 MG/DL [facility] Protein Specimen Blood Performing Organization Address City/[facility] Phone Number [facility] [address] [place] [address] * COMPREHENSIVE METABOLIC PANEL (09/26/2018 2:00 PM CDT) Only the most recent of 2 results within the time period is included. Pathologist [facility] Sodium 138 137 - 147 MMOL/L [facility] Potassium 4.0 3.5 - 5.1 MMOL/L [facility] Chloride 109 98 - 110 MMOL/L [facility] Glucose 192 (H) 70 - 100 MG/DL [facility] Blood Urea 20 7 - 25 MG/DL [facility] Nitrogen Creatinine 1.70 (H) 0.4 - 1.00 MG/DL [facility] Calcium 9.1 8.5 - 10.6 MG/DL [facility] Total Protein 6.1 6.0 - 8.0 G/DL [facility] Total Bilirubin 0.2 (L) 0.3 - 1.2 MG/DL [facility] Albumin 3.6 3.5 - 5.0 G/DL [facility] Alk Phosphatase 85 25 - 110 U/L [facility] AST (SGOT) 24 7 - 40 U/L [facility] CO2 20 (L) 21 - 30 MMOL/L [facility] ALT (SGPT) 8 7 - 56 U/L [facility] Anion Gap 9 3 - 12 [facility] eGFR Non 31 (L) >60 mL/min [facility] Comment: [place] The eGFR is not validated for use in drug dosing adjustments.Continue to use estimated creatinine clearance per dosing reference text.Please contact the Clinical Pharmacist for questions. eGFR 37 (L) >60 mL/min [facility] [place] Comment: The eGFR is not validated for use in drug dosing adjustments.Continue to use estimated creatinine clearance per dosing reference text.Please contact the Clinical Pharmacist for questions. Specimen Blood Performing Organization Address [facility]ode Phone Number [facility] [address] [place] [address] * ALDOLASE (09/12/2018 2:30 PM CDT) Aldolase 9.3 (H) < OR=8.1 U/L [facility] Comment: DIAGNOSTICS REPORT COMMENT: FASTING:NO Test Performed at: [facility] [address] [place], [id number] MADISON RAYMUNDO DO,MPH Performing Organization Address [facility] Phone Number [facility] [address] [place] [address] * CREATINE KINASE-CPK (09/12/2018 2:30 PM CDT) Creatine Kinase 170 (H) 30 - 135 U/L [facility] Comment: DIAGNOSTICS REPORT COMMENT: FASTING:NO Test Performed at: [facility] [address] [place], [id number] DANUTA PADILLA Performing Organization Address [facility] Phone Number [facility] [address] [place] [address] from Last 3 Months Advance Directives Patient has advance care planning documents, and code status on file. For more information, please contact: [facility] [address] [place] [address] Date Inactivated Comments Code Status Date Activated 07/27/2015 4:09 PM Full Code 07/20/2015 4:54 PM Provider has discussed Code Status Yes w/Patient or Family?
--- OUTSIDE RECORDS SUMMARY | 2018-09-30 13:17 | XMS REPORT | Encounter Summary ---
Author Author [facility] Organization [facility] Address Unknown Phone Unavailable Care Team Providers Care Chaplain Name Role Phone Damian Lamar MD Unavailable Meghana Maya MD PCP Brad Marr RN 2 Unavailable Buck Sol MD Unavailable Neo Burrell MD Unavailable Mychart, Generic Provider Unavailable Unavailable Fly Hyatt MD Unavailable Dione Vera MD Unavailable Madhav Morales MD Unavailable Brooke Lugo RN Unavailable Unavailable Encounter Details Care Team Description Date Type Department Michael Cleveland Antwon 09/20/2018 Orders Only The [address] [address] Social History Date Tobacco Use Types Packs/Day [...] impairment: No documented as of this encounter Plan of Treatment Not on filedocumented as of this encounter Visit Diagnoses Not on filedocumented in this encounter
--- OUTSIDE RECORDS SUMMARY | 2018-09-30 13:17 | XMS REPORT | Encounter Summary ---
Author Author [facility] Organization [facility] Address Unknown Phone Unavailable Care Team Providers Care Gas Technician Name Role Phone Damian Lamar MD Unavailable Meghana Maya MD PCP Brad Marr RN 2 Unavailable Buck Sol MD Unavailable Neo Burrell MD Unavailable Mychart, Generic Provider Unavailable Unavailable Fly Hyatt MD Unavailable Dione Vera MD Unavailable Madhav Morales MD Unavailable Brooke Lugo RN Unavailable Unavailable Reason for Visit * Reason Comments Infusion Therapy * Treatment (Routine) Referred By Contact Referred To Contact Status Reason Specialty Diagnoses / Procedures Bird Castle MD Forwarding address unknown Left [facility] 05/26/18 [facility] Infusion Cl [address] [address] Authorized Infusion Diagnoses Polymyositis with respiratory involvement (HCC) P rocedures RITUXIMAB (RITUXAN) Encounter Details Care Team Description Date Type Department Monik Sorto, DO [address] [place] [address] Overlap syndrome (HCC) (Primary Dx); Chronic respiratory failure with hypoxia (HCC); ILD (interstitial lung disease) (HCC); Positive GEMA (antinuclear antibody); P-ANCA and MPO antibodies positive; Weakness of right hip; Myositis associated antibody positive; Polymyositis with respiratory involvement (HCC) 09/26/2018 Infusion [facility] [address] [address] Social History Date Tobacco Use Types Packs/Day [...] history available. documented as of this encounter Last Filed Vital Signs Time Taken Vital Sign Reading 09/26/2018 1:50 PM CDT Blood Pressure 157/96 09/26/2018 1:50 PM CDT Pulse 85 09/26/2018 9:47 AM CDT Temperature 36.8 C (98.2 F) - Respiratory Rate - 09/26/2018 9:47 AM CDT Oxygen Saturation 95% - Inhaled Oxygen - Concentration 09/26/2018 9:47 AM CDT Weight 79.7 kg (175 lb 12.8 oz) 09/26/2018 9:47 AM CDT Height 154.9 cm (5' 1") 09/26/2018 9:47 AM CDT Body Mass Index 33.22 documented in this encounter Functional Status Date of Assessment [...] impairment: No documented as of this encounter Patient Instructions * Patient Instructions* Stew Teran RN - 09/26/2018 9:00 AM CDT Pt learning assessment complete. Pt education provided on previous clinic visit. Pt denies need for additional education related to diagnosis, test or treatment. documented in this encounter Plan of Treatment Not on filedocumented as of this encounter Procedures Comments Procedure Name Priority Date/Time Associated Diagnosis CBC AND DIFF Routine 09/26/2018 Overlap syndrome (HCC) 2:00 PM CDT Chronic respiratory failure with hypoxia (HCC) ILD (interstitial lung disease) (HCC) Positive GEMA (antinuclear antibody) P-ANCA and MPO antibodies positive Weakness of right hip Myositis associated antibody positive Polymyositis with respiratory involvement (HCC) C REACTIVE PROTEIN (CRP) Routine 09/26/2018 Overlap [...] antibody positive Polymyositis with respiratory involvement (HCC) documented in this encounter Results * C REACTIVE PROTEIN (CRP) (09/26/2018 2:00 PM CDT) C-Reactive 2.46 (H) <1.0 MG/DL [facility] Protein Specimen Blood Performing Organization Address City/State/Zipcode Phone Number [facility] [address] [place] [address] * COMPREHENSIVE METABOLIC PANEL (09/26/2018 2:00 PM CDT) Sodium 138 137 - 147 MMOL/L [facility] [...] (L) >60 mL/min [facility] Comment: [place] The eGFR is not validated for use in drug dosing adjustments.Continue to use estimated creatinine clearance per dosing reference text.Please contact the Clinical Pharmacist for questions. eGFR 37 (L) >60 mL/min [facility] [place] Comment: The eGFR is not validated for use in drug dosing adjustments.Continue to use estimated creatinine clearance per dosing reference text.Please contact the Clinical Pharmacist for questions. Specimen Blood Performing Organization Address City/State/Zipcode Phone Number [facility] [address] [place] [address] * CBC AND DIFF (09/26/2018 2:00 PM CDT) White Blood 10.9 4.5 - 11.0 K/UL [...] Basophil Count Specimen Blood Performing Organization Address City/[facility]/Zipcode Phone Number [facility] [address] [place] [address] documented in this encounter Visit Diagnoses Diagnosis Overlap syndrome (HCC) - Primary Other specified diffuse disease of connective tissue Chronic respiratory failure with hypoxia (HCC) Chronic respiratory failure ILD (interstitial lung disease) (HCC) Postinflammatory pulmonary fibrosis Positive GEMA (antinuclear antibody) Other and unspecified nonspecific immunological findings P-ANCA and MPO antibodies positive Other and unspecified nonspecific immunological findings Weakness of right hip Myositis associated antibody positive Polymyositis with respiratory involvement (HCC) Polymyositis documented in this encounter Administered Medications Action Date Dose Rate Site Medication Order MAR Action 09/26/2018 9:56 AM CDT 500 mg acetaminophen (TYLENOL) tablet 500 mg Given 500 mg, Oral, ONCE, 1 dose, Tue09/26/18 at 1000, Day 1: TOTAL ACETAMINOPHEN DOSE NOT TO EXCEED 4GM DAILY, 09/26/2018 9:56 AM CDT 25 mg diphenhydrAMINE (BENADRYL) capsule 25 mg Given 25 mg, Oral, ONCE, 1 dose, Tue09/26/18 at 1000, Day 1, 09/26/2018 10:05 AM CDT 125 mg methylPREDNISolone (SOLU-MEDROL PF) Given injection 125 mg 125 mg, Intravenous, 2 mL, ONCE, 1 dose, Tue09/26/18 at 1000, Day 1, 09/26/2018 11:48 AM CDT 1,000 mg 100 mL/hr riTUXimab (RITUXAN) 1,000 mg in sodium Dose/Rate chloride 0.9% (NS) 250 mL IVPB Change 1,000 mg, 250 mL, Intravenous, ONCE, 1 dose, Tue09/26/18 at 1030, Day 1 Pharmacy may round to the nearest vial size. -Initiate infusion rate at 50 mg/hr; if there is no reaction, increase the rate by 50 mg/hr increments every 30 minutes, to a maximum rate of 400 mg/hr. -If patient tolerated previous rituximab infusion, subsequent infusions may be started at 100 mg/hr; if there is no reaction, increase the rate by 100 mg/hr increments every 30 minutes, to a maximum rate of 400 mg/hr. -If hypersensitivity or infusion reaction develops during infusion, temporarily slow or stop infusion; if symptoms resolve, increase rate of infusion as tolerated, but If symptoms do not resolve, stop infusion and notify provider. NOTE: This is a HIGH ALERT Medication., 1,000 mg 75 mL/hr Dose/Rate Change 09/26/2018 11:28 AM CDT 1,000 mg 50 mL/hr Dose/Rate Change 09/26/2018 10:56 AM CDT documented in this encounter
--- OUTSIDE RECORDS SUMMARY | 2018-09-30 13:17 | XMS REPORT | Encounter Summary ---
Author Author [facility] Organization [facility] Address Unknown Phone Unavailable Care Team Providers Care Child Welfare Caseworker Name Role Phone Damian Lamar MD Unavailable Meghana Maya MD PCP Brad Marr RN 2 Unavailable Buck Sol MD Unavailable Neo Burrell MD Unavailable Mychart, Generic Provider Unavailable Unavailable Fly Hyatt MD Unavailable Dione Vera MD Unavailable Madhav Morales MD Unavailable Brooke Lugo RN Unavailable Unavailable Encounter Details Care Team Description Date Type Department Monik Sorto, DO [address] [facility] [address] [place] [address] 09/29/2018 Orders Only The [facility] [address] [place], [place] [id number] Social History Date Tobacco Use Types Packs/Day [...]
--- OUTSIDE RECORDS SUMMARY | 2018-09-30 13:17 | XMS REPORT | Encounter Summary ---
Author Author [facility] Organization [facility] Address Unknown Phone Unavailable Care Team Providers Care Forensic Medical Examiner Name Role Phone Damian Lamar MD Unavailable Meghana Maya MD PCP Brad Marr RN 2 Unavailable Buck Sol MD Unavailable Neo Burrell MD Unavailable Mychart, Generic Provider Unavailable Unavailable Fly Hyatt MD Unavailable Dione Vera MD Unavailable Madhav Morales MD Unavailable Brooke Lugo RN Unavailable Unavailable Encounter Details Care Team Description Date Type Department Monik Sorto, DO 4000 [facility] [place] [address] [place] [address] 09/11/2018 Orders Only The [facility] [address] [place], [place] [id number] Social History Date Tobacco Use Types Packs/Day [...] Comments Procedure Name Priority Date/Time Associated Diagnosis ALDOLASE 09/12/2018 2:30 PM CDT CBC AND DIFF 09/12/2018 2:30 PM CDT CREATINE KINASE-CPK 09/12/2018 2:30 PM CDT COMPREHENSIVE METABOLIC 09/12/2018 PANEL 2:30 PM CDT documented in this encounter Results * ALDOLASE (09/12/2018 2:30 PM CDT) Aldolase 9.3 (H) < OR=8.1 U/L [facility] Comment: DIAGNOSTICS REPORT COMMENT: FASTING:NO Test Performed at: [facility] [address], [id number] MADISON RAYMUNDO DO,MPH Performing Organization Address [facility] Phone Number [facility] [id number] [place] [address] * CREATINE KINASE-CPK (09/12/2018 2:30 PM CDT) Pathologist [facility] Creatine Kinase 170 (H) 30 - 135 U/L [facility] Comment: DIAGNOSTICS REPORT COMMENT: FASTING:NO Test Performed at: [facility] [address] [place]DA [id number] DANUTA PADILLA Performing Organization Address [facility] Phone Number [facility] [id number] [facility] [place] [address] * CBC AND DIFF (09/12/2018 2:30 PM CDT) White Blood 8.18 4.0 - 11.0 T/CMM [facility] Cells DIAGNOSTICS RBC 4.92 4.0 - 5.6 x10e6/uL [facility] Hemoglobin 13.5 12.0 - 16.3 GM/DL [facility] Hematocrit 43.4 37.1 - 49.6 % [facility] Comment: DIAGNOSTICS Due to new instrumentation, as of Mar some normal reference ranges have changed. MCV 88.2 81.2 - 102.0 fl [facility] MCH 27.4 26.7 - 32.2 pg [facility] MCHC 31.1 30.3 - 35.0 g/dL [facility] RDW 14.2 12.0 - 14.5 % [facility] Platelet Count 318 150 - 450 T/CMM [facility] MPV 9.9 9.5 - 12.5 fl [facility] Absolute 5.36 1.5 - 8.0 T/CMM [facility] Neutrophil DIAGNOSTICS Count Neutrophils 65.6 34.0 - 75.0 % [facility] Absolute Lymph 1.61 0.6 - 6.0 T/CMM [facility] Count DIAGNOSTICS Lymphocytes 19.7 17.0 - 50.0 % [facility] Absolute 1.14 (H) 0 - 1.1 T/CMM [facility] Monocyte Count DIAGNOSTICS Monocytes 13.9 (H) 4.0 - 12.0 % [facility] Absolute 0.01 0 - 0.6 T/CMM [facility] Eosinophil DIAGNOSTICS Count Eosinophils 0.1 0 - 6 % [facility] Absolute 0.04 0 - 0.2 T/CMM [facility] Basophil Count DIAGNOSTICS Basophils 0.5 0 - 2.0 % [facility] Comment: DIAGNOSTICS Test Performed at: [facility] [address] [place], [id number] DANUTA PADILLA [facility] Organization Address City/State/Zipcode Phone Number [facility] [address] [place] [address] * COMPREHENSIVE METABOLIC PANEL (09/12/2018 2:30 PM CDT) Glucose 101 65 - 105 mg/dL [facility] Blood Urea 17 7 - 17 mg/dL [facility] Nitrogen DIAGNOSTICS Creatinine 1.6 (H) 0.52 - 1.04 mg/dL [facility] eGFR Non 35 SEE BELOW mL/min [facility] Comment: DIAGNOSTICS [place] The GFR is calculated using a modified MDRD calculation. This GFR should not be used to determine patient medication dosages.The Cockcroft-Gault calculation should be used to determine medication dosage. It is recommended that this formula not be used with patients of extreme body size or muscle mass (e.g. obese, severely malnourished, amputees, paraplegics or other muscle wasting diseases) or with unusual dietary intake (e.g. vegetarian, creatine supplements, etc.). REFERENCE for GLOMERULAR FILTRATION RATE AVERAGE GFR FOR 60-69 YEARS OLD=85 mL/min/1.73 sq.meters CHRONIC KIDNEY DISEASE LESS THAN 60 mL/min/1.73 sq.meters KIDNEY FAILURE LESS THAN 15 mL/min/1.73 sq.meters THIRD NATIONAL HEALTH AND NUTRITION EXAMINATION SURVEY 2002 BUN/Creatinine 11 10 - 30 [facility] Ratio DIAGNOSTICS Sodium 144Comment: New Sodium 135 - 145 mmol/L [facility] Reference Range has been DIAGNOSTICS established. Potassium 2.9 (L) 3.5 - 5.1 mmol/L [facility] Chloride 104 98 - 107 mmol/L [facility] CO2 25 20 - 30 mmol/L [facility] Calcium 9.1 8.4 - 10.2 mg/dL [facility] Total Protein 5.7 (L) 6.3 - 8.2 g/dL [facility] Albumin 3.5 3.5 - 5.0 g/dL [facility] Globulin 2.2 (L) 2.3 - 4.0 g/dL [facility] Albumin/Globuli 1.6 1.0 - 2.5 [facility] n Ratio DIAGNOSTICS Total Bilirubin 0.3 0.2 - 1.3 mg/dL [facility] Alk Phosphatase 94 38 - 126 U/L [facility] AST (SGOT) 28 16 - 43 U/L [facility] ALT (SGPT) 14 0 - 35 U/L [facility] Comment: DIAGNOSTICS Test Performed at: [facility] [address] [place] [id number] DANUTA PADILLA Performing Organization Address City/State/Zipcode Phone Number [facility] [address] [place] [address] documented in this encounter Visit Diagnoses Not on filedocumented in this encounter
--- OUTSIDE RECORDS SUMMARY | 2018-09-30 13:17 | XMS REPORT | Encounter Summary ---
Author Author [facility] Organization [facility] Address Unknown Phone Unavailable Care Team Providers Care Sales Representative Meats Name Role Phone Damian Lamar MD Unavailable Meghana Maya MD PCP Brad Marr RN 2 Unavailable Buck Sol MD Unavailable Neo Burrell MD Unavailable Mychart, Generic Provider Unavailable Unavailable Fly Hyatt MD Unavailable Dione Vera MD Unavailable Madhav Morales MD Unavailable Brooke Lugo RN Unavailable Unavailable Reason for Visit * Reason Comments General Question Encounter Details Care Team Description Date Type Department Monik Sorto, DO 4000 [facility] [address] [place] [address] General Question 09/07/2018 Telephone The [facility] [address] [place] [address] Social History Date Tobacco Use Types Packs/Day [...] Telephone Encounter - Rosendo Duran RN - 09/11/2018 12:02 PM CDT Pt responded with, "[address] [place] [address] Also, go ahead and fax the other orders to Dr Blanca office. We will have them submit them to the hospital as needed." Faxed standing labs to [facility] at [phone] and received confirmation refaxed standing labs to [facility] with the stamp on it and received confirmation Faxed the PFT and CT of Chest to pt's PCP at fax number [phone]. And received fax confirmation. Let pt know via [employer] * Telephone Encounter - Rosendo Duran RN - 09/07/2018 3:31 PM CDT Sent pt [facility] message asking for the address of the [facility] to pt and asked if I should send orders for CT and PFT to her PCP. Will await response Labs already printed and stamped. Placing in the refill basket for now * Telephone Encounter - Rosendo Duran RN - 09/07/2018 3:20 PM CDT ----- Message from Monik Sorto DO sent at 09/07/2018 8:54 AM CDT ----- I saw Ms. Angel yesterday in clinic. I ordered some labs for her to have done. She needs them printed and stamped with the [facility] discount stamp. I tried to do this yesterday evening, but, unfortunately, the printer wasn't working. Could you please do this and send them to a [facility] near the patient? Also, I ordered a PFT and CT Chest. The patient requests that they are done at [email or web address]. Is it possible for you to fax the orders there for the patient? Ms. Angel states she can discuss with them about discounted prices. Thanks. Monik Sorto documented in this encounter Plan of Treatment Not on filedocumented as of this encounter Visit Diagnoses Not on filedocumented in this encounter
--- OUTSIDE RECORDS SUMMARY | 2018-09-30 13:18 | XMS REPORT | Encounter Summary ---
Author Author [facility] Organization [facility] Address Unknown Phone Unavailable Care Team Providers Care Impregnator And Drier Name Role Phone Damian Lamar MD Unavailable [...] Date Type Department Monik Sorto, DO 4000 [facility] 6 [place] [address] General Question 08/22/2018 Telephone The [facility] [address] [place] [address] Social History Date Tobacco Use Types Packs/Day [...] Miscellaneous Notes * Telephone Encounter - Rosendo Druan RN - 08/31/2018 8:34 AM DIRECTOR OF PRODUCT MARKETING I let infusion know we wouldn't be signing orders until pt is seen in clinic again. Routing to [facility] to see what we can do to get pt in sooner CTOR OF PRODUCT MARKETING * Telephone Encounter - Buck Sol MD - 08/31/2018 6:47 AM DIRECTOR OF PRODUCT MARKETING The patient was last seen by a physician almost 1 year ago (not myself). I don' t feel comfortable signing these orders without a reassessment by a physician. Please see if the patient can be seen urgently by one of our providers. Thanks, Buck Sol MD MS CTOR OF PRODUCT MARKETING * Telephone Encounter - Rosendo Duran RN - 08/30/2018 8:56 AM DIRECTOR OF PRODUCT MARKETING Received email below from [facility] in [facility], "The form Dr. Sol signed was for replacement Rituxan and the patient has been approved, but scheduling is unable to reach out to the patient since the O2 orders are signed by Dr. Estrella which is no longer with us." Routing to Dr. Sol for review and to go into O2 and resubmit new Rituxan orders CTOR OF PRODUCT MARKETING * Telephone Encounter - Rosendo Duran RN - 08/23/2018 7:43 AM DIRECTOR OF PRODUCT MARKETING Faxed back to My at fax number [phone]. Received fax confirmation Placing in [employer] CTOR OF PRODUCT MARKETING * Telephone Encounter - Rosendo Duran RN - 08/22/2018 9:47 AM DIRECTOR OF PRODUCT MARKETING Received form from [employer] needing signature for pt assistance for Rituxan. Placing in Dr. Sol's box to sign since he is staff production cost estimator CTOR OF PRODUCT MARKETING documented in this encounter Plan of Treatment Not on filedocumented as of this encounter Visit Diagnoses Not on filedocumented in this encounter
--- OUTSIDE RECORDS SUMMARY | 2018-09-30 13:18 | XMS REPORT | Encounter Summary ---
Author Author [facility] Organization [facility] Address Unknown Phone Unavailable Care Team Providers Care Instrument Maker Name Role Phone Damian Lamar MD Unavailable Meghana Maya MD PCP Brad Marr RN 2 Unavailable Buck Sol MD Unavailable Neo Burrell MD Unavailable Mychart, Generic Provider Unavailable Unavailable Fly Hyatt MD Unavailable Dione Vera MD Unavailable Madhav Morales MD Unavailable Brooke Lugo RN Unavailable Unavailable Encounter Details Care Team Description Date Type Department My Ramesh 08/24/2018 Documentation The [address] [address] Social History Date Tobacco Use Types Packs/Day [...] impairment: No documented as of this encounter Progress Notes * My Ramesh - 08/24/2018 9:09 AM SPECIMEN COLLECTOR MEDICATION ASSISTANCE PROGRAM (MAP) HOSPICE SUPERINTENDENT SUPPLIED MEDICATION Drug: Rituxan (rituximab) Solar Technician Program: [employer] Patient Foundation Status: Enrolled Enrollment Period: 08/23/2018-Until therapy is discontinued, patients health insurance or financial status changes, or patient no longer meets the program eligibility requirements. Provided/Replacement: Replacement Notes: Patient eligibility is based off insurance status and/or dx and patient must continue to meet all criteria to remain in the program. Please notify the MAP Program of any changes. This program does not support ancillary charges like chair time, administration fees, lab fees, scans, etc. IMEN COLLECTOR documented in this encounter Plan of Treatment Not on filedocumented as of this encounter Visit Diagnoses Not on filedocumented in this encounter
--- OUTSIDE RECORDS SUMMARY | 2018-09-30 13:18 | XMS REPORT | Encounter Summary ---
Author Author [facility] Organization [facility] Address Unknown Phone Unavailable Care Team Providers Care Farm Machinery Engine Mechanic Name Role Phone Damian Lamar MD Unavailable Meghana Maya MD PCP Brad Marr RN 2 Unavailable Buck Sol MD Unavailable Neo Burrell MD Unavailable Mychart, Generic Provider Unavailable Unavailable Fly Hyatt MD Unavailable Dione Vera MD Unavailable Madhav Morales MD Unavailable Brooke Lugo RN Unavailable Unavailable Reason for Visit * Reason Comments Infusion Therapy Encounter Details Care Team Description Date Type Department Monik Sorto, DO 4000 [facility] [address] [place] [address] Infusion Therapy 08/16/2018 Telephone The [facility] [address] [place] [address] Social History Date Tobacco Use Types Packs/Day [...] encounter Miscellaneous Notes * Telephone Encounter - Stefania Robbins RN - 08/17/2018 11:50 AM JEWELRY ENAMELER Faxed lab orders to [facility] in [facility] fax # [phone] LRY ENAMELER * Addendum Note - Monik Sorto DO - 08/17/2018 11:43 AM JEWELRY ENAMELER Addended by: MONIK SORTO on: 08/17/2018 11:43 AM Modules accepted: Orders LRY ENAMELER * Telephone Encounter - Monik Sorto DO - 08/17/2018 11:41 AM JEWELRY ENAMELER I have ordered the labs. She may have them done with the infusion or if she would prefer, we can fax them. Either way. Thank you. LRY ENAMELER * Telephone Encounter - Stefania Robbins RN - 08/17/2018 11:20 AM JEWELRY ENAMELER What labs would you like? Or are you going to have them done with the infusion? Patient would like labs sent to [facility]. Explained to patient the need to be seen and its importance. She stated understanding. Added to scheduled 12/27/18 at 3PM with Noreen and added to wait- list. LRY ENAMELER * Telephone Encounter - Monik Sorto DO - 08/17/2018 11:01 AM JEWELRY ENAMELER Ms. Angel was seen on 01/23/18 by the rheumatology department, Elsa Johnson APRN. I think it is appropriate to order an infusion at this time. She will need labs done now as well. I will order just one infusion, which should last 6 months. However, before I order the infusion I would like the patient to at least have an appointment scheduled with me. By the time she is due for the next infusion, she will need to be seen again at [facility] before another infusion is ordered. Regarding payment for the infusion, I agree she will have to discus this with the infusion center. Thanks. LRY ENAMELER * Telephone Encounter - Holly Jarvis RN - 08/16/2018 10:28 AM JEWELRY ENAMELER Pt states she lost her insurance but has noticed a bump on her wrist and soreness in her muscles. Pt states she is going to get her infusion to see if this helps as she is due. Pt asking for assistance with paying. Pt did not have a pen and asked for phone numbers to be sent via [employer] Sent pt both infusion scheduling number and billing. Routing to Dr. Sorto for update. LRY ENAMELER documented in this encounter Plan of Treatment Order Schedule Name Priority Associated Diagnoses Expected: 08/17/2018, Expires: 08/17/2019 CBC AND DIFF Routine Polymyositis (HCC) Long-term current use of rituximab Expected: 08/17/2018, Expires: 08/17/2019 ALT (SGPT) Routine Polymyositis (HCC) Long-term current use of rituximab Expected: 08/17/2018, Expires: 08/17/2019 CREATININE Routine Polymyositis (HCC) Long-term current use of rituximab Expected: 08/17/2018, Expires: 08/17/2019 ALDOLASE Routine Polymyositis (HCC) Long-term current use of rituximab Expected: 08/17/2018, Expires: 08/17/2019 CREATINE KINASE-CPK Routine Polymyositis (HCC) Long-term current use of rituximab documented as of this encounter Visit Diagnoses Diagnosis Polymyositis (HCC) - Primary Polymyositis Long-term current use of rituximab documented in this encounter
--- OUTSIDE RECORDS SUMMARY | 2018-09-30 13:18 | XMS REPORT | Encounter Summary ---
Author Author [facility] Organization [facility] Address Unknown Phone Unavailable Care Team Providers Care Promotions Manager Name Role Phone Damian Lamar MD Unavailable Meghana Maya MD PCP Brad Marr RN 2 Unavailable Buck Sol MD Unavailable Neo Burrell MD Unavailable Mychart, Generic Provider Unavailable Unavailable Fly Hyatt MD Unavailable Dione Vera MD Unavailable Madhav Morales MD Unavailable Brooke Lugo RN Unavailable Unavailable Reason for Referral * Radiology Services (Routine) Referred By Contact Referred To Contact Status Reason Specialty Diagnoses / Procedures Jill Pittman MD [address] [facility] [id number] [place] [address] New Request Radiology Diagnoses Myalgia Polymyositis with respiratory involvement (HCC) ILD (interstitial lung disease) (HCC) Raynaud's disease without gangrene P rocedures CT CHEST WO CONTRAST Reason for Visit * Reason Comments Office Visit Follow Up Encounter Details Care Team Description Date Type Department Monik Sorto DO 4000 [facility] [address] [place] [address] Myalgia (Primary Dx); Meralgia paraesthetica, right; Polymyositis with respiratory involvement (HCC); Weakness; ILD (interstitial lung disease) (HCC); Raynaud's disease without gangrene; Long-term current use of rituximab; Positive GEMA (antinuclear antibody); Myositis associated antibody positive 09/06/2018 Office Visit [facility] [id number] [place] [address] Social History Date Tobacco Use Types Packs/Day [...] Vital Signs Time Taken Vital Sign Reading 09/06/2018 3:58 PM CDT Blood Pressure 148/88 09/06/2018 3:58 PM CDT Pulse 113 09/06/2018 3:58 PM CDT Temperature 37.2 C (99 F) 09/06/2018 3:58 PM CDT Respiratory Rate 18 09/06/2018 3:58 PM CDT Oxygen Saturation 97% - Inhaled Oxygen - Concentration 09/06/2018 3:58 PM CDT Weight 77.5 kg (170 lb 12.8 oz) 09/06/2018 3:58 PM CDT Height 152.4 cm (5') 09/06/2018 3:58 PM CDT Body Mass Index 33.36 documented in this encounter Functional Status Date [...] this encounter Patient Instructions * Patient Instructions* Monik Sorto DO - 09/06/2018 3:00 PM CDT -Please have labs done as soon as possible. -I have ordered a CT of your chest and lung function tests. You should hear from the hospital about scheduling them. -Please make an appointment with Dr. Hyatt, lung doctor, as soon as possible. documented in this encounter Progress Notes * Jill Pittman MD - 09/06/2018 3:00 PM CDT ATTESTATION I personally performed the rios portions of the E/M visit, discussed the case with the Rheumatology fellow, Dr. Monik Sorto, and concur with her documentation of history, physical exam, assessment, and treatment plan unless otherwise noted. Ms. Angel presents to transition care for connective tissue disease with associated interstitial lung disease in the setting of her original in presentation in 2015 for acute hypoxemic respiratory failure. Laboratory studies have included positive GEMA, PM/Scl, MPO (but negative pANCA). Aldolase was mildly elevated (11.2) at presentation with normal CK. EMG did not demonstrate any evidence of myopathy. PFTs from 04/2016 were consistent with moderate restriction. CT chest from 06/2015 demonstrated mild to moderate lower lung zone predominant interstitial lung disease with predominant linear and reticular opacities and mild diffuse groundglass opacities and mild traction bronchiectasis. Rituximab and mycophenolate mofetil were utilized in the past. She had previously noted wearing off effect with rituximab. She last received rituximab in -01/2018. She has been off mycophenolate mofetil since . She currently does not have access to insurance. She reports more recently developing myalgia and fatigue. The most painful area is the right forearm. She also notes numbness of the left thigh suggestive of meralgia paresthetica. The pain symptoms are less typical of the disease activity in the past. She notes minimal respiratory symptoms currently. Will plan to update laboratory testing including muscle enzymes. Also, would recommend CT chest in addition to pulmonary function tests to assess disease activity. Will plan to follow-up regarding coverage strategies for rituximab in the setting of currently being without insurance. Staff Name: Jill Pittman MD * Monik Sorto DO - 09/06/2018 3:00 PM CDT Subjective: Carolann Angel is a 62 y.o. female, w/ PMH of polymyositis (weakly positive Anti-PM/Scl Ab, elevated aldolase/CK, normal EMG [09/2015]) associated with ILD, +GEMA >=1280 nucleolar/speckled, persistently +MPO with negative p- ANCA (without evidence of vasculitis), CKD Stage 3, HTN, HLD, hypothyroidism, and anxiety. Previous History: Patient was first seen by the Rheumatology consult service during 06/2015 hospitalization for respiratory failure. Her symptoms date back to 08/2014. At that time she started having fatigue. 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 She was treated with antibiotics and steroids. In 2015, during a hospitalization for respiratory failure, CT Chest showed slightly increased patchy peripheral small areas of consolidation in the lung bases with development of tiny pleural effusions, septal and peribronchaial vascular thickening. She was transferred to [facility] due to concern for possible EGPA with + p-ANCA/negative MPO. Repeat CT chest showed mild to moderate lower lung zone predominant interstitial lung disease with predominantly reticular and linear interstitial opacities peripherally, mild traction bronchiectasis, bilateral fairly diffuse groundglass opacities in the lower lung zones and minimal groundglass opacity in the left lung apex laterally. She was treated with IV pulse dose steroids then discharged on 60mg prednisone qd. MPA and overlap connective tissue disease were both considered as possible etiologies. EMG in 09/2015 was essentially unremarkable. Given +PM/Scl Ab, elevated Aldolase and pattern of lung disease she is felt to have CTD with myositis/ILD. She follows with Dr. Hyatt in the ILD clinic. She received her first RTX infusion in January 2016, which has been continued every 6 months. At in 03/2017, prednisone was discontinued. In 04/2016, MMF was added to her regimen and titrated up to 1000mg BID given decreased lung capacity on PFT's. Because of improvement in PFT's in 08/2017, MMF was decreased to 500mg BID. Patient presents for her first office follow-up since 09/2017. Interval history: Ms. Angel presents today for scheduled follow-up. She states she recently changed jobs and has lost her insurance. Her last rituximab infusions were 01/23 and 02/06/18. She is no longer taking CellCept. She states she stopped taking it in May due to issues with her insurance only wanting to send it to her house; however, patient states she has a neighbor who will likely still her prescriptions and so she has not asked for any refills. She reports that she does not have any shortness of breath or cough. She is experiencing diffuse muscle pains. She specifically has an area on her right forearm, laterally, that is painful, sometimes tender to touch, and is worse with flexing her hand. She also feels just more fatigued and more weak. Denies any dysphasia. She drove herself to the appointment today from 2 hours away. Reviewing patient's previous presentation of myositis, she states that in 2016 she had more weakness and does not remember any specific muscle pains. Of note , patient also has an area on her right outer thigh which she describes as " ", meaning it is numb in that area. Review of Systems HENT: Positive for postnasal drip. Musculoskeletal: Positive for back pain and gait problem. C/o right arm and right leg pains All other systems reviewed and are negative. Objective: cloNIDine (CATAPRESS) 0.1 mg tablet coenzyme Q10(+) 100 mg cap Take 100 mg by mouth once. gabapentin (NEURONTIN) 300 mg capsule TAKE ONE CAPSULE BY MOUTH EVERY NIGHT AT BEDTIME metoprolol XL (TOPROL XL) 25 mg extended release tablet Take 75 mg by mouth daily. metoprolol XL (TOPROL XL) 50 mg extended release tablet mycophenolate mofetil (CELLCEPT) 500 mg tablet TAKE TWO TABLETS BY MOUTH TWICE A DAY. DUE FOR LABS potassium chloride (K-DUR) 10 mEq tablet venlafaxine XR (EFFEXOR XR) 150 mg capsule Take 150 mg by mouth daily. Discussed patient's BMI with her. The body mass index is 33.36 kg/m. and falls within the category of Obesity 1 (30 to <35); specialist visit only, referred back to Primary Care Provider for follow up. Vitals: 09/06/18 1558 BP: 148/88 Pulse: 113 Resp: 18 Temp: 37.2 C (99 F) TempSrc: Oral SpO2: 97% Weight: 77.5 kg (170 lb 12.8 oz) Height: 152.4 cm (60") Physical Exam Constitutional: She is oriented to person, place, and time. She appears well- developed and well-nourished. No distress. HENT: Head: Normocephalic and atraumatic. Mouth/Throat: Oropharynx is clear and moist. Eyes: Conjunctivae are normal. Right eye exhibits no discharge. Left eye exhibits no discharge. No scleral icterus. Cardiovascular: Normal rate, regular rhythm and normal heart sounds. Pulmonary/Chest: Effort normal. No respiratory distress. She has no wheezes. She has rales. Musculoskeletal: Puffy hands without any specific joint swelling. 4/5 strength in biceps/triceps (possibly limited to pain), 5/5 in all other extremities. Neurological: She is alert and oriented to person, place, and time. Skin: Skin is warm and dry. No rash noted. No erythema. Psychiatric: She has a normal mood and affect. Her behavior is normal. Judgment and thought content normal. Vitals reviewed. Assessment: Myalgia Fatigue Weakness Meralgia paresthetica, right Polymyositis (weakly +anti-PM/Scl Ab) ILD Raynauds CKD Stage 3 Variable MPO/p-ANCA positivity + GEMA, >=1280, nucleolar/speckled Immunosuppression on rituximab Vitamin B12 deficiency Peripheral neuropathy Impression: Ms. Angel is being followed by rheumatology for polymyositis and ILD. She has not been seen in the clinic since 09/2017. Since that time, unfortunately, patient has lost insurance and has had difficulty obtaining her drugs and ability to afford doctor's appointments. Patient has some subjective weakness, and possibly objective weakness on exam. However, her her complaint is mostly myalgia, which is not consistent with her original presentation of only weakness. It is possible that there is another reason for myalgia, such as fibromyalgia. But since patient has not been on therapy and since we do not have any recent muscle enzymes we cannot rule out a flare of her polymyositis at this time. We have asked the patient to obtain the labs and imaging as below. We would also like to restart rituximab and will work with our pharmacist to see if patient qualifies for medication assistance. Plan: -Pt is currently not on any therapy due to lack of insurance and issues with access to medications. (Last RTX infusion 02/06/18 and last MMF dose in 05/2018) -Labs today: CBC, CMP, aldolase, CK. (Will fax lab orders with [employer]) -If labs return with muscle enzyme elevations (in setting of myalgias and possible weakness): will start prednisone taper, starting at 60mg daily, as well as continue with plan to restarting RTX. -We would like to restart RTX infusions, 1 gram D1&15, every 6 months if able. I will discuss possible assistance program for patient with our pharmacist, Dolores, RianD. -Will hold off on restarting MMF at this time. Will await lab and imaging results. -Ordered today: Hi Res CT Chest and PFTs. Per pt's request, we will send these orders to [facility] as pt thinks she may be able to negotiate cost there. -Strongly encouraged patient to scheduled a follow-up with Dr. Hyatt, ILD clinic. Her last appointment was 07/2017. -Regarding numbness of right lateral thigh: this is most consistent with meralgia paresthetica, mostly likely related to weight. -Pneumonia vaccine given in 06/2015 (suspect Pneumovax); Prevnar 03/2017 -RTC in 3 months Patient seen and discussed with Dr. Pittman. Monik Sorto DO Rheumatology Fellow, PGY-4 Pager: [phone] documented in this encounter Plan of Treatment Order Schedule Name Priority Associated Diagnoses Expected: 09/06/2018, Expires: 09/07/2019 CBC AND DIFF Routine Myalgia Polymyositis with respiratory involvement (HCC) ILD (interstitial lung disease) (HCC) Raynaud's disease without gangrene Expected: 09/06/2018, Expires: 09/07/2019 COMPREHENSIVE METABOLIC PANEL Routine Myalgia Polymyositis with respiratory involvement (HCC) ILD (interstitial lung disease) (HCC) Raynaud's disease without gangrene Expected: 09/06/2018, Expires: 09/07/2019 ALDOLASE Routine Myalgia Polymyositis with respiratory involvement (HCC) ILD (interstitial lung disease) (HCC) Raynaud's disease without gangrene Expected: 09/06/2018, Expires: 09/07/2019 CREATINE KINASE-CPK Routine Myalgia Polymyositis with respiratory involvement (HCC) ILD (interstitial lung disease) (HCC) Raynaud's disease without gangrene Ordered: 09/06/2018 PFT COMPLETE PULM FUNCTION Routine Myalgia Polymyositis with respiratory involvement (HCC) ILD (interstitial lung disease) (HCC) Raynaud's disease without gangrene Expected: 09/06/2018 (Approximate), Expires: 09/07/2019 CT CHEST WO CONTRAST Routine Myalgia Polymyositis with respiratory involvement (HCC) ILD (interstitial lung disease) (HCC) Raynaud's disease without gangrene documented as of this encounter Visit Diagnoses Diagnosis Myalgia - Primary Mylagia and myositis, unspecified Meralgia paraesthetica, right Polymyositis with respiratory involvement (HCC) Polymyositis Weakness Other malaise and fatigue ILD (interstitial lung disease) (HCC) Postinflammatory pulmonary fibrosis Raynaud's disease without gangrene Long-term current use of rituximab Positive GEMA (antinuclear antibody) Other and unspecified nonspecific immunological findings Myositis associated antibody positive documented in this encounter
--- OUTSIDE RECORDS SUMMARY | 2018-09-30 13:18 | XMS REPORT | Encounter Summary ---
Author Author [facility] Organization [facility] Address Unknown Phone Unavailable Care Team Providers Care Marketing Services Rep Name Role Phone Damian Lamar MD Unavailable [...] Date Type Department Monik Sorto, DO [address] [facility] [address] [place] [address] Infusion Therapy 08/07/2018 Telephone [facility] [address] [place] [address] Social History Date Tobacco Use Types Packs/Day [...] encounter Miscellaneous Notes * Telephone Encounter - Holly Jarvis RN - 08/07/2018 12:24 PM FLOOR FINISHER Pt lvm stating she has questions about helping to get her infusion cost covered. Called pt and lvm. R FINISHER documented in this encounter Plan of Treatment Not on filedocumented as of this encounter Visit Diagnoses Not on filedocumented in this encounter
--- OUTSIDE RECORDS SUMMARY | 2018-09-30 13:21 | XMS REPORT | CCD ---
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 04/21/[address]: 065507780 Never smoker 04/21/2015 Alcohol history Unknown occasionally drinks alcohol 04/21/2015 Allergies, Adverse Reactions, Alerts Substance Reaction Codes Entered Date Inactivated Date Status [id number] REDUCTASE INHIBITORS myalgias Unknown 2015 No Inactive Date Active Past Medical History Illness Codes Condition Status Onset Date Resolved Date Hypokalemia ICD-9: 276.8 ICD-10: E87.6 Active 09/13/2018 Unknown Interstitial pulmonary disease, unspecified ICD-9: 515 ICD-10: J84.9 Active 01/24/2017 Unknown Chronic kidney disease, stage 3 (moderate) ICD-9: 585.3 ICD-10: N18.3 Active 05/04/2018 Unknown Essential (primary) hypertension ICD-9: 401.1 ICD-10: I10 Active 08/30/2016 Unknown Mixed hyperlipidemia ICD-9: 272.2 ICD-10: E78.2 Active 04/20/2015 Unknown Drug-induced polyneuropathy ICD-9: 357.7 ICD-10: G62.0 Active 08/30/2016 Unknown Impaired fasting glucose ICD-9: 790.21 ICD-10: R73.01 Active 04/20/2015 Unknown Other specified hypothyroidism ICD-9: 244.8 ICD-10: E03.8 Active 06/23/2016 Unknown Other fatigue ICD-9: 780.79 ICD-10: R53.83 Active 01/24/2017 Unknown Other malaise ICD-9: 780.79 ICD-10: R53.81 Active 06/22/2017 Unknown Acute laryngopharyngitis ICD-9: 465.0 ICD-10: J06.0 Active 10/13/2016 Unknown Other acute sinusitis ICD-9: 461.8 ICD-10: J01.80 Active 10/13/2016 Unknown Other allergic rhinitis ICD-9: 477.8 ICD-10: J30.89 Active 03/02/2017 Unknown Generalized hyperhidrosis ICD-9: 780.8 ICD-10: R61 Active 01/24/2017 Unknown Pain in left shoulder ICD-9: 719.41 ICD-10: M25.512 Active 07/01/2016 Unknown Pain in thoracic spine ICD-9: 724.1 ICD-10: M54.6 Active 07/01/2016 Unknown Zoster without complications ICD-9: 053.9 ICD-10: B02.9 Active 07/01/2016 Unknown Essential (primary) hypertension ICD-9: 401.9 ICD-10: I10 Active 06/23/2016 Unknown Menopausal and female climacteric states ICD-9: 627.2 ICD-10: N95.1 Active 06/23/2016 Unknown Encounter for screening mammogram for malignant neoplasm of breast ICD-9: V76.12 ICD-10: Z12.31 Active 05/13/2016 Unknown Atrophy of thyroid (acquired) ICD-9: 244.8 ICD-10: E03.4 Active 05/03/2016 Unknown Pain in left foot ICD- 9: 729.5 ICD-10: M79.672 Active 05/03/2016 Unknown Hypothyroidism, unspecified ICD-9: 244.9 ICD-10: E03.9 Active 04/05/2016 Unknown Pain in left leg ICD-9 : 729.5 ICD-10: M79.605 Active 04/05/2016 Unknown Localized edema ICD-9 : 782.3 ICD-10: R60.0 Active 03/17/2016 Unknown Diarrhea, unspecified ICD-9: 787.91 ICD-10: R19.7 Active 09/22/2015 Unknown Acute maxillary sinusitis, unspecified ICD-9: 461.0 ICD-10: J01.00 Active 08/11/2015 Unknown Myositis, unspecified ICD-9: 729.1 ICD-10: M60.9 Active 08/11/2015 Unknown Other myositis, multiple sites ICD-9: 729.1 ICD-10: M60.89 Active 08/03/2015 Unknown [place] Parrish Unknown Active 06/30/2015 Unknown Dyspnea, unspecified ICD-9: 786.09 ICD-10: R06.00 Active 05/15/2015 Unknown Hypertension Unknown Active 04/21/2015 Unknown Hypothryroidism Unknown Active 04/21/2015 Unknown Encounter for screening mammogram for malignant neoplasm of breast ICD-9: V76.11 ICD-10: Z12.31 Active 04/20/2015 Unknown Problems Condition Codes Effective Dates Condition Status Hypokalemia ICD-9: 276.8 ICD-10: E87.6 09/13/2018 Active Interstitial pulmonary disease, unspecified ICD-9: 515 ICD-10: J84.9 01/24/2017 Active Chronic kidney disease, stage 3 (moderate) ICD-9: 585.3 ICD-10: N18.3 05/04/2018 Active Essential (primary) hypertension ICD-9: 401.1 ICD-10: I10 08/30/2016 Active Mixed hyperlipidemia ICD-9: 272.2 ICD-10: E78.2 04/20/2015 Active Drug-induced polyneuropathy ICD-9: 357.7 ICD-10: G62.0 08/30/2016 Active Impaired fasting glucose ICD-9: 790.21 ICD-10: R73.01 04/20/2015 Active Other specified hypothyroidism ICD-9: 244.8 ICD-10: E03.8 06/23/2016 Active Other fatigue ICD-9: 780.79 ICD-10: R53.83 01/24/2017 Active Other malaise ICD-9: 780.79 ICD-10: R53.81 06/22/2017 Active Acute laryngopharyngitis ICD-9: 465.0 ICD-10: J06.0 10/13/2016 Active Other acute sinusitis ICD-9: 461.8 ICD-10: J01.80 10/13/2016 Active Other allergic rhinitis ICD-9: 477.8 ICD-10: J30.89 03/02/2017 Active Generalized hyperhidrosis ICD-9: 780.8 ICD-10: R61 01/24/2017 Active Pain in left shoulder ICD-9: 719.41 ICD-10: M25.512 07/01/2016 Active Pain in thoracic spine ICD-9: 724.1 ICD-10: M54.6 07/01/2016 Active Zoster without complications ICD-9: 053.9 ICD-10: B02.9 07/01/2016 Active Essential (primary) hypertension ICD-9: 401.9 ICD-10: I10 06/23/2016 Active Menopausal and female climacteric states ICD-9: 627.2 ICD-10: N95.1 06/23/2016 Active Encounter for screening mammogram for malignant neoplasm of breast ICD-9: V76.12 ICD-10: Z12.31 05/13/2016 Active Atrophy of thyroid (acquired) ICD-9: 244.8 ICD-10: E03.4 05/03/2016 Active Pain in left foot ICD- 9: 729.5 ICD-10: M79.672 05/03/2016 Active Hypothyroidism, unspecified ICD-9: 244.9 ICD-10: E03.9 04/05/2016 Active Pain in left leg ICD-9 : 729.5 ICD-10: M79.605 04/05/2016 Active Localized edema ICD-9 : 782.3 ICD-10: R60.0 03/17/2016 Active Diarrhea, unspecified ICD-9: 787.91 ICD-10: R19.7 09/22/2015 Active Acute maxillary sinusitis, unspecified ICD-9: 461.0 ICD-10: J01.00 08/11/2015 Active Myositis, unspecified ICD-9: 729.1 ICD-10: M60.9 08/11/2015 Active Other myositis, multiple sites ICD-9: 729.1 ICD-10: M60.89 08/03/2015 Active Churg Parrish Unknown 06/30/2015 Active Dyspnea, unspecified ICD-9: 786.09 ICD-10: R06.00 05/15/2015 Active Hypertension Unknown 04/21/2015 Active Hypothryroidism Unknown 04/21/2015 Active Encounter for screening mammogram for malignant neoplasm of breast ICD-9: V76.11 ICD-10: Z12.31 04/20/2015 Active Medications Medication Codes Instructions Start Date Stop Date Status Fill Instructions candesartan 4 mg tablet RxNorm: 102208 1 Tablet(s) PO daily 10/14/2018 Active potassium chloride ER 10 mEq tablet,extended release RxNorm: 768196 Tablet(s) TAKE ONE TABLET BY MOUTH DAILY 09/15/2018 03/13/2019 Active clonidine HCl 0.1 mg tablet RxNorm: 322631 TAKE ONE TABLET BY MOUTH TWICE A DAY 09/14/2018 02/10/2019 Active losartan 25 mg tablet RxNorm: 388276 TAKE ONE TABLET BY MOUTH DAILY 09/14/2018 11/12/2018 Active clonidine HCl 0.1 mg tablet RxNorm: 294333 Tablet(s) TAKE ONE TABLET BY MOUTH AT BEDTIME 09/13/2018 No Stop Date Active venlafaxine ER 150 mg capsule,extended release 24 hr RxNorm: 629151 TAKE ONE CAPSULE BY MOUTH DAILY 05/15/20182018 Active Lipitor 20 mg tablet RxNorm: 864564 TAKE ONE TABLET BY MOUTH DAILY 05/15/2018 11/10/2018 Active losartan 25 mg tablet RxNorm: 154857 TAKE ONE TABLET BY MOUTH DAILY 04/17/2018 07/14/2018 Inactive losartan 25 mg tablet RxNorm: 291085 TAKE ONE TABLET BY MOUTH DAILY 04/17/2018 04/16/2018 Inactive Lipitor 20 mg tablet RxNorm: 437041 1 Tablet(s) PO daily 201701/11/2018 Inactive Lipitor 20 mg tablet RxNorm: 511935 1 Tablet(s) PO daily 201705/11/2018 Inactive clonidine HCl 0.1 mg tablet RxNorm: 865703 TAKE ONE TABLET BY MOUTH TWICE A DAY 01/04/2018 07/02/2018 Inactive potassium chloride ER 10 mEq tablet,extended release RxNorm: 672658 TAKE ONE TABLET BY MOUTH DAILY 01/04/20182018 Inactive losartan 25 mg tablet RxNorm: 979162 TAKE ONE TABLET BY MOUTH DAILY 01/03/2018 04/02/2018 Inactive levothyroxine 50 mcg tablet RxNorm: 350815 1 Tablet(s) PO daily 12/08/2017 09/12/2018 Inactive losartan 25 mg tablet RxNorm: 675830 1 Tablet(s) PO daily 201701/02/2018 Inactive venlafaxine ER 150 mg capsule,extended release 24 hr RxNorm: 070683 TAKE ONE CAPSULE BY MOUTH DAILY 12/06/20172017 Inactive metoprolol succinate ER 50 mg tablet,extended release 24 hr RxNorm: 161198 TAKE ONE TABLET BY MOUTH DAILY 08/29/201701/25 Inactive metoprolol succinate ER 50 mg tablet,extended release 24 hr RxNorm: 641731 TAKE ONE TABLET BY MOUTH DAILY 08/29/201708/28 Inactive metoprolol succinate ER 50 mg tablet,extended release 24 hr RxNorm: 696207 TAKE ONE TABLET BY MOUTH DAILY 08/29/201708/28 Inactive Tamiflu 75 mg capsule RxNorm: 891790 1 Capsule(s) PO BID 201606/26/2017 Inactive Kenalog 40 mg/mL suspension for injection RxNorm: 7882849 1.5 Milliliter(s) Inj 06/22/2017 06/22/2017 Inactive clonidine HCl 0.1 mg tablet RxNorm: 086626 TAKE ONE TABLET BY MOUTH TWICE A DAY 06/06/2017 12/02/2017 Inactive potassium chloride ER 10 mEq tablet,extended release RxNorm: 547245 TAKE ONE TABLET BY MOUTH DAILY 06/06/20172017 Inactive venlafaxine ER 150 mg capsule,extended release 24 hr RxNorm: 624801 TAKE ONE CAPSULE BY MOUTH DAILY 05/23/20172017 Inactive Zithromax 500 mg tablet RxNorm: 555608 1 Tablet(s) PO daily 05/22/2017 Inactive potassium chloride ER 10 mEq tablet,extended release RxNorm: 857090 TAKE ONE TABLET BY MOUTH DAILY 04/21/20172016 Inactive potassium chloride ER 10 mEq tablet,extended release RxNorm: 827153 TAKE ONE TABLET BY MOUTH DAILY 03/16/20172016 Inactive Zithromax Z-Jacek 250 mg tablet RxNorm: 685180 1 Tablet(s) PO UD 03/02/2017 06/21/2017 Inactive venlafaxine ER 150 mg capsule,extended release 24 hr RxNorm: 807746 Capsule(s) TAKE ONE CAPSULE BY MOUTH DAILY 02/17/2017 02/16/2017 Inactive venlafaxine ER 150 mg capsule,extended release 24 hr RxNorm: 447052 TAKE ONE CAPSULE BY MOUTH DAILY 02/17/20172017 Inactive clonidine HCl 0.1 mg tablet RxNorm: 262264 TAKE ONE TABLET BY MOUTH EVERY NIGHT AT BEDTIME 02/14/2017 01/03/2018 Inactive metoprolol succinate ER 50 mg tablet,extended release 24 hr RxNorm: 319325 TAKE ONE TABLET BY MOUTH DAILY 02/14/201708/12 Inactive Protonix 40 mg tablet,delayed release RxNorm: 561403 TAKE ONE TABLET BY MOUTH DAILY WHILE ON PREDNISONE 01/25/201709/12 Inactive Zithromax Z-Jacek 250 mg tablet RxNorm: 499188 1 Tablet(s) PO UD 01/24/2017 01/03/2018 Inactive potassium chloride ER 10 mEq tablet,extended release RxNorm: 502229 TAKE ONE TABLET BY MOUTH DAILY 01/17/20172016 Inactive clonidine HCl 0.1 mg tablet RxNorm: 134946 TAKE ONE TABLET BY MOUTH EVERY NIGHT AT BEDTIME 01/17/2017 02/13/2017 Inactive potassium chloride ER 10 mEq tablet,extended release RxNorm: 056933 TAKE ONE TABLET BY MOUTH DAILY 12/16/20162016 Inactive venlafaxine ER 150 mg capsule,extended release 24 hr RxNorm: 428028 TAKE ONE CAPSULE BY MOUTH DAILY 11/18/20162016 Inactive clonidine HCl 0.1 mg tablet RxNorm: 005192 TAKE ONE TABLET BY MOUTH EVERY NIGHT AT BEDTIME 11/08/2016 01/06/2017 Inactive clonidine HCl 0.1 mg tablet RxNorm: 266616 1 Tablet(s) BID 01/16/2017 Inactive potassium chloride ER 10 mEq tablet,extended release RxNorm: 055630 TAKE ONE TABLET BY MOUTH DAILY 10/15/20162016 Inactive Zithromax Z-Jacek 250 mg tablet RxNorm: 618609 1 Tablet(s) PO UD 10/13/2016 01/03/2018 Inactive potassium chloride ER 10 mEq tablet,extended release RxNorm: 746627 TAKE ONE TABLET BY MOUTH DAILY 10/12/20162016 Inactive potassium chloride ER 10 mEq tablet,extended release RxNorm: 043437 Tablet(s) BID TAKE ONE TABLET BY MOUTH TWICE DAILY 09/17/2016 10/11/2016 Inactive potassium chloride ER 10 mEq tablet,extended release RxNorm: 121716 TAKE ONE TABLET BY MOUTH DAILY 09/13/20162016 Inactive clonidine HCl 0.1 mg tablet RxNorm: 147032 Tablet(s) TAKE ONE TABLET BY MOUTH EVERY NIGHT AT BEDTIME 08/12/20162016 Inactive gabapentin 300 mg capsule RxNorm: 843592 1 Capsule(s) PO QHS No Stop Date Active venlafaxine ER 150 mg capsule,extended release 24 hr RxNorm: 438742 TAKE ONE CAPSULE BY MOUTH DAILY 08/09/20162016 Inactive metoprolol succinate ER 50 mg tablet,extended release 24 hr RxNorm: 112261 TAKE ONE TABLET BY MOUTH DAILY 07/29/201601/24 Inactive clonidine HCl 0.1 mg tablet RxNorm: 346472 TAKE ONE TABLET BY MOUTH EVERY NIGHT AT BEDTIME 07/21/2016 08/11/2016 Inactive potassium chloride ER 10 mEq tablet,extended release RxNorm: 314648 TAKE ONE TABLET BY MOUTH DAILY 07/14/20162016 Inactive Prescriber not associated with this practice or location acyclovir 400 mg tablet RxNorm: 938306 2 Tablet(s) PO QID 07/0207/11/2016 Inactive cyclobenzaprine 5 mg tablet RxNorm: 593810 1-2 Tablet(s) PO TID as needed 07/02/2016 07/06/2016 Inactive capsaicin 0.1 % topical cream RxNorm: 655340 1 Application TOP TID as needed 07/02/2016 09/12/2018 Inactive Protonix 40 mg tablet,delayed release RxNorm: 339420 TAKE ONE TABLET BY MOUTH DAILY WHILE ON PREDNISONE 06/29/201612/25 Inactive clonidine HCl 0.1 mg tablet RxNorm: 407532 1 Tablet(s) PO QHS 06/25/2016 07/20/2016 Inactive calcium carbonate 500 mg calcium (1,250 mg) tablet RxNorm: 038238 TAKE ONE TABLET BY MOUTH DAILY WHILE ON PREDNISONE. MAY STOP TAKING WHEN PREDNISONE IS COMPLETE 06/01/2016 09/12/2018 Inactive Vitamin D3 1,000 unit tablet RxNorm: 818715 1 Tablet(s) PO daily . May stop taking once prednisone is complete. 04/26/2016 09/12/2018 Inactive metoprolol succinate ER 50 mg tablet,extended release 24 hr RxNorm: 782053 1.5 Tablet(s) PO daily 04/06/2016 06/23/2016 Inactive prednisone 10 mg tablet RxNorm: 878628 1 Tablet(s) PO daily 12/201506/21/2017 Inactive metoprolol succinate ER 50 mg tablet,extended release 24 hr RxNorm: 367748 1 Tablet(s) PO daily 03/18/2016 04/05/2016 Inactive amlodipine 10 mg tablet RxNorm: 383561 1/2 Tablet(s) PO daily 02/24/2016 06/21/2016 Inactive metoprolol succinate ER 25 mg tablet,extended release 24 hr RxNorm: 406160 1 Tablet(s) PO daily 02/24/2016 03/16/2016 Inactive calcium carbonate 500 mg calcium (1,250 mg) tablet RxNorm: 619047 TAKE ONE TABLET BY MOUTH DAILY WHILE ON PREDNISONE. MAY STOP TAKING WHEN PREDNISONE IS COMPLETE 02/16/2016 05/15/2016 Inactive Protonix 40 mg tablet,delayed release RxNorm: 966366 TAKE ONE TABLET BY MOUTH DAILY WHILE ON PREDNISONE 02/10/201605/09 Inactive venlafaxine ER 150 mg capsule,extended release 24 hr RxNorm: 690049 Capsule(s) TAKE ONE CAPSULE BY MOUTH DAILY 12/10/2015 04/07/2016 Inactive calcium carbonate 500 mg calcium (1,250 mg) tablet RxNorm: 214652 1 Tablet(s) PO daily 12/01/2015 01/29/2016 Inactive Vitamin D3 1,000 unit tablet RxNorm: 232403 1 Tablet(s) PO daily 12/01/2015 03/29/2016 Inactive levothyroxine 50 mcg tablet RxNorm: 795033 1 Tablet(s) PO daily 12/01/2015 11/24/2016 Inactive amlodipine 10 mg tablet RxNorm: 525257 1 Tablet(s) PO daily 11/18/2015 Inactive amlodipine 10 mg tablet RxNorm: 059484 1 Tablet(s) PO daily 02/23/2016 Inactive amlodipine 5 mg tablet RxNorm: 929849 1 Tablet(s) PO daily 11/18/2015 Inactive venlafaxine ER 150 mg capsule,extended release 24 hr RxNorm: 052170 TAKE ONE CAPSULE BY MOUTH DAILY 11/13/20152015 Inactive Protonix 40 mg tablet,delayed release RxNorm: 541790 1 Tablet(s) PO daily while on prednisone 2015 02/09/2016 Inactive prednisone 10 mg tablet RxNorm: 256211 2 Tablet(s) PO UD 201504/01/2016 Inactive 60mg for 2 days, then 50mg for 2 days, then 40mg for 2 days, then 30mg for 2 days, then 20mg for 2 days, then 10mg for 2 days, then 5mg for 2 days potassium chloride ER 10 mEq tablet,extended release RxNorm: 800961 TAKE ONE TABLET BY MOUTH DAILY 09/22/20152015 Inactive venlafaxine ER 150 mg capsule,extended release 24 hr RxNorm: 333715 TAKE ONE CAPSULE BY MOUTH DAILY 09/08/20152015 Inactive cefdinir 300 mg capsule RxNorm: 829775 1 Capsule(s) PO BID 08/22/2015 Inactive cefdinir 300 mg capsule RxNorm: 127470 1 Capsule(s) PO BID 08/18/2015 Inactive Kenalog 40 mg/mL suspension for injection RxNorm: 0887957 1 Milliliter(s) Inj 08/04/2015 08/04/2015 Inactive triamterene 37.5 mg-hydrochlorothiazide 25 mg tablet RxNorm: 639036 1 Tablet(s) PO BID 06/17/2015 08/03/2015 Inactive potassium chloride ER 10 mEq tablet,extended release RxNorm: 071728 1 Tablet(s) PO daily 05/30/2015 08/03/2015 Inactive Levaquin 250 mg tablet RxNorm: 380192 Tablet(s) PO UD 500 mg day one, then 250 mg day 2-7 05/27/2015 08/03/2015 Inactive prednisone 10 mg tablet RxNorm: 173261 Tablet(s) PO UD 201410/29/2015 Inactive 60mg for 2 days, then 50mg for 2 days, then 40mg for 2 days, then 30mg for 2 days, then 20mg for 2 days, then 10mg for 2 days, then 5mg for 2 days albuterol sulfate 1.25 mg/3 mL solution for nebulization RxNorm: 901867 3 Milliliter(s) INH Q4-6H as needed dyspnea 05/23/2015 09/12/2018 Inactive Zithromax 500 mg tablet RxNorm: 197203 1 Tablet(s) PO daily 05/15/2015 Inactive Zithromax 500 mg tablet RxNorm: 396819 1 Tablet(s) PO daily 05/20/2015 Inactive prednisone 20 mg tablet RxNorm: 852560 3 Tablet(s) PO daily 05/16/2015 Inactive venlafaxine ER 150 mg capsule,extended release 24 hr RxNorm: 471161 TAKE ONE CAPSULE BY MOUTH DAILY 05/12/20152015 Inactive Keflex 500 mg capsule RxNorm: 222704 1 Capsule(s) PO TID 201405/18/2015 Inactive simvastatin 20 mg tablet RxNorm: 661141 1 Tablet(s) PO daily 04/09/2015 Inactive simvastatin 20 mg tablet RxNorm: 487197 1 Tablet(s) PO daily 08/11/2015 Inactive venlafaxine ER 150 mg capsule,extended release 24 hr RxNorm: 341749 TAKE ONE CAPSULE BY MOUTH DAILY 04/08/20152014 Inactive amlodipine 5 mg tablet RxNorm: 864322 1 Tablet(s) PO daily 04/201503/06/2015 Inactive amlodipine 5 mg tablet RxNorm: 076900 1 Tablet(s) PO daily 04/201507/04/2015 Inactive venlafaxine ER 150 mg capsule,extended release 24 hr RxNorm: 964375 1 Capsule(s) PO daily 01/29/2015 03/29/2015 Inactive Co Q-10 oral RxNorm: 08470 oral No Start Date Active gabapentin 100 mg capsule RxNorm: 030218 1 Capsule(s) PO QAM No Start Date Active albuterol sulfate 1.25 mg/3 mL solution for nebulization RxNorm: 189293 3 Milliliter(s) INH Q4-6H as needed dyspnea No Start Date 05/22/2015 Inactive levothyroxine 50 mcg tablet RxNorm: 302764 1 Tablet(s) PO daily No Start Date 11/30/2015 Inactive metoprolol succinate ER 50 mg tablet,extended release 24 hr RxNorm: 349296 1 Tablet(s) PO daily No Start Date 2018 Inactive gabapentin 300 mg capsule RxNorm: 639060 1 Capsule(s) PO QHS No Start Date 08/09/2016 Inactive vitamin B complex oral RxNorm: 08089 oral No Start Date 09/12/2018 Inactive Vitamin D3 1,000 unit tablet RxNorm: 354608 1 Tablet(s) PO daily No Start Date 11/30/2015 Inactive Protonix 40 mg tablet,delayed release RxNorm: 057676 1 Tablet(s) PO daily while on prednisone No Start Date 10/30/2015 Inactive calcium carbonate oral RxNorm: oral No Start Date 11/30/2015 Inactive potassium chloride ER 10 mEq tablet,extended release RxNorm: 506416 1 Tablet(s) PO daily No Start Date 05/29/2015 Inactive Levaquin 250 mg tablet RxNorm: 286451 Tablet(s) PO UD 500 mg day one, then 250 mg day 2-7 No Start Date 05/26/2015 Inactive triamterene 37.5 mg-hydrochlorothiazide 25 mg tablet RxNorm: 862041 1 Tablet(s) PO BID No Start Date 06/16/2015 Inactive prednisone 10 mg tablet RxNorm: 280278 Tablet(s) PO UD No Start Date 05/26/2015 Inactive 60mg for 2 days, then 50mg for 2 days, then 40mg for 2 days, then 30mg for 2 days, then 20mg for 2 days, then 10mg for 2 days, then 5mg for 2 days venlafaxine ER 150 mg capsule,extended release 24 hr RxNorm: 896824 1 Capsule(s) PO daily No Start Date 01/28/2015 Inactive Medication Administered Medication Codes Instructions Start Date Status Kenalog 40 mg/mL suspension for injection RxNorm: 8747940 1.5Milliliter 06/22/2017 No longer Active Kenalog 40 mg/mL suspension for injection RxNorm: 4092055 1Milliliter 08/04/2015 No longer Active Immunizations No Immunization data Assessments Condition Codes Effective Dates Interstitial pulmonary disease, unspecified ICD-10: J84.9 ICD-9: 515 09/13/2018 Hypokalemia ICD-10: E87.6 ICD-9: 276.8 09/13/2018 Chronic kidney disease, stage 3 (moderate) ICD-10: N18.3 ICD-9: 585.3 05/04/2018 Mixed hyperlipidemia ICD-10: E78.2 ICD-9: 272.2 05/04/2018 Essential (primary) hypertension ICD-10: I10 ICD-9: 401.1 05/04/2018 Other specified hypothyroidism ICD-10: E03.8 ICD-9: 244.8 12/06/2017 Other fatigue ICD-10: R53.83 ICD-9: 780.79 06/22/2017 Other malaise ICD-10: R53.81 ICD-9: 780.79 06/22/2017 Other allergic rhinitis ICD-10: J30.89 ICD-9: 477.8 03/02/2017 Acute laryngopharyngitis ICD-10: J06.0 ICD-9: 465.0 03/02/2017 Other acute sinusitis ICD-10: J01.80 ICD-9: 461.8 03/02/2017 Generalized hyperhidrosis ICD-10: R61 ICD-9: 780.8 01/24/2017 Impaired fasting glucose ICD-10: R73.01 ICD-9: 790.21 08/30/2016 Drug-induced polyneuropathy ICD-10: G62.0 ICD-9: 357.7 08/30/2016 Zoster without complications ICD-10: B02.9 ICD-9: 053.9 07/02/2016 Pain in thoracic spine ICD-10: M54.6 ICD-9: 724.1 07/02/2016 Pain in left shoulder ICD-10: M25.512 ICD-9: 719.41 07/02/2016 Essential (primary) hypertension ICD-10: I10 ICD-9: 401.9 06/24/2016 Menopausal and female climacteric states ICD-10: N95.1 ICD-9: 627.2 06/24/2016 Encounter for screening mammogram for malignant neoplasm of breast ICD-10: Z12.31 ICD-9: V76.12 05/14/2016 Pain in left foot ICD-10: M79.672 ICD-9: 729.5 05/04/2016 Atrophy of thyroid (acquired) ICD-10: E03.4 ICD-9: 244.8 05/04/2016 Pain in left leg ICD-10: M79.605 ICD-9: 729.5 04/06/2016 Localized edema ICD-10: R60.0 ICD-9: 782.3 03/18/2016 Hypothyroidism, unspecified ICD-10: E03.9 ICD-9: 244.9 12/16/2015 Diarrhea, unspecified ICD-10: R19.7 ICD-9: 787.91 09/23/2015 Acute maxillary sinusitis, unspecified ICD-10: J01.00 ICD-9: 461.0 08/12/2015 Myositis, unspecified ICD-10: M60.9 ICD-9: 729.1 08/12/2015 Other myositis, multiple sites ICD-10: M60.89 ICD-9: 729.1 08/04/2015 Dyspnea, unspecified ICD-10: R06.00 ICD-9: 786.09 05/16/2015 Encounter for screening mammogram for malignant neoplasm of breast ICD-10: Z12.31 ICD-9: V76.11 04/21/2015 Reason For Visit Reason For Visit Effective Dates Notes abnormal test results 09/13/2018 hypertension 05/04/2018 hypertension 01/10/2018 hypertension 12/06/2017 cough 06/22/2017 sinus congestion 03/02/2017 diaphoresis 01/24/2017 cough 10/13/2016 hypertension 08/30/2016 shoulder pain 07/02/2016 menopausal symptoms 06/24/2016 hypertension 05/04/2016 hypertension 04/06/2016 blood pressure followup 03/18/2016 blood pressure followup 03/11/2016 edema 02/24/2016 hypertension 12/16/2015 hypertension 10/30/2015 diarrhea 09/23/2015 diarrhea 09/10/2015 nasal discharge 08/12/2015 knee pain 08/04/2015 shortness of breath 05/16/2015 hypothyroid 04/21/2015 Results Observation Observation Code Item Item Code Result Date Electrolytes Ord62 NA 140 mEq/L 09/15/2018 Electrolytes Ord62 K 4.2 mEq/L 09/15/2018 Electrolytes Ord62 CL 111 mEq/L 09/15/2018 Electrolytes Ord62 CO2 20.0 mEq/L 09/15/2018 Electrolytes Ord62 ANION GAP 13 09/15/2018 Comp Metabolic Ecn779 NA 140 mEq/L 01/10/2018 Comp Metabolic Htg896 K 3.8 mEq/L 01/10/2018 Comp Metabolic Uct499 CL 106 mEq/L 01/10/2018 Comp Metabolic Twn769 CO2 25.0 mEq/L 01/10/2018 Comp Metabolic Iwx909 ANION GAP 13 01/10/2018 Comp Metabolic Tam882 GLUCOSE 110 mg/dL 01/10/2018 Comp Metabolic Ttt643 Creat 1.5 mg/dL 01/10/2018 Comp Metabolic Cjo295 eGFR 37 ml/min/1.73m2 01/10/2018 Comp Metabolic Urm117 BUN 23 mg/dL 01/10/2018 Comp Metabolic Qbi595 B/C Ratio 15.3 Ratio 01/10/2018 Comp Metabolic Isg197 CALCIUM 9.2 mg/dL 01/10/2018 Comp Metabolic Sat906 ALK PHOS 87 U/L 01/10/2018 Comp Metabolic Bzo564 AST(SGOT) 15 U/L 01/10/2018 Comp Metabolic Yeq523 ALT(SGPT) 9 U/L 01/10/2018 Comp Metabolic Mnz344 BILI T 0.4 mg/dL 01/10/2018 Comp Metabolic Mnt541 ALBUMIN 3.8 g/dL 01/10/2018 Comp Metabolic Hcm303 TPRO 6.2 g/dL 01/10/2018 Comp Metabolic Nig256 GLOB 2.4 g/dL 01/10/2018 Comp Metabolic Rji235 A/G Ratio 1.6 Ratio 01/10/2018 Comp Metabolic Xwg858 Osmo 284 mOsmo 01/10/2018 C-Reactive Protein Qnt Crqnt CRP 0.5 mg/dl 01/10/2018 Lipid Ord30 CHOL 233 mg/dL 01/10/2018 Lipid Ord30 HDL 33.0 mg/dl 01/10/2018 Lipid Ord30 TRIG 319 mg/dL 01/10/2018 Lipid Ord30 LDL Unable to calculate Due to elevated triglycerides mg/dL 01/10/2018 Lipid Ord30 C/HDL 7.1 Ratio 01/10/2018 Cbc With Differential Ord2 WBC 6.50 K/ul 01/10/2018 Cbc With Differential Ord2 RBC 4.96 M/ul 01/10/2018 Cbc With Differential Ord2 HGB 13.7 g/dl 01/10/2018 Cbc With Differential Ord2 HCT 43.0 % 01/10/2018 Cbc With Differential Ord2 Neut% 61.1 % 01/10/2018 Cbc With Differential Ord2 MCV 86.7 fl 01/10/2018 Cbc With Differential Ord2 Lymph% 22.6 % 01/10/2018 Cbc With Differential Ord2 MCH 27.6 pg 01/10/2018 Cbc With Differential Ord2 [place]% 15.2 % 01/10/2018 Cbc With Differential Ord2 MCHC 31.9 pg 01/10/2018 Cbc With Differential Ord2 Eos% 0.8 % 01/10/2018 Cbc With Differential Ord2 PLT 333 K/ul 01/10/2018 Cbc With Differential Ord2 Baso% 0.3 % 01/10/2018 Cbc With Differential Ord2 RDW 14.3 % 01/10/2018 Cbc With Differential Ord2 Neut ABS# 3.97 K/ul 01/10/2018 Cbc With Differential Ord2 Lymph ABS# 1.47 K/ul 01/10/2018 Cbc With Differential Ord2 [place] ABS# 1.0 K/ul 01/10/2018 Cbc With Differential Ord2 Eos ABS# 0.1 K/ul 01/10/2018 Cbc With Differential Ord2 Baso ABS# 0.0 K/ul 01/10/2018 Sed Rate Ord21 ESR 12 mm/hr 01/10/2018 Free T4 Axe765 FREE T4 0.57 ng/dL 12/06/2017 Tsh Ord6 TSH (3rd IS) 7.40 uIU/mL 12/06/2017 C A/B FLU [id number] Influenza A Scr Negative 06/22/2017 C A/B FLU [id number] Influenza B Scr Negative 06/22/2017 C A/B FLU [id number] Influenza Intrp B AG: PRID:PT:NOSE:NOM:IF See Footnote 06/22/2017 Comp Metabolic Hgz317 NA 140 mEq/L 08/30/2016 Comp Metabolic Kst043 K 3.3 mEq/L 08/30/2016 Comp Metabolic Vmq663 CL 104 mEq/L 08/30/2016 Comp Metabolic Tob652 CO2 26.0 mEq/L 08/30/2016 Comp Metabolic Pvd790 ANION GAP 13 08/30/2016 Comp Metabolic Vbr244 GLUCOSE 143 mg/dL 08/30/2016 Comp Metabolic Bqp777 Creat 1.3 mg/dL 08/30/2016 Comp Metabolic Jqd325 eGFR 43 ml/min/1.73m2 08/30/2016 Comp Metabolic Igf641 BUN 19 mg/dL 08/30/2016 Comp Metabolic Gha500 B/C Ratio 14.3 Ratio 08/30/2016 Comp Metabolic Pvi181 CALCIUM 10.0 mg/dL 08/30/2016 Comp Metabolic Zmu280 ALK PHOS 67 U/L 08/30/2016 Comp Metabolic Zeh451 AST(SGOT) 28 U/L 08/30/2016 Comp Metabolic Eun181 ALT(SGPT) 43 U/L 08/30/2016 Comp Metabolic Fxh028 BILI T 0.4 mg/dL 08/30/2016 Comp Metabolic Npi913 ALBUMIN 4.0 g/dL 08/30/2016 Comp Metabolic Axt880 TPRO 6.2 g/dL 08/30/2016 Comp Metabolic Emm198 GLOB 2.2 g/dL 08/30/2016 Comp Metabolic Uda060 A/G Ratio 1.8 Ratio 08/30/2016 Comp Metabolic Bel254 Osmo 284 mOsmo 08/30/2016 %Hba1C Gks187 % HbA1c 29412-0 6.1 % 08/30/2016 %Hba1C Fip288 Gluc Ave 128 mg/dL 08/30/2016 Free T4 Fla105 FREE T4 0.75 ng/dL 06/25/2016 Tsh Ord6 hTSH II 2.80 uIU/mL 06/25/2016 Metabolic Ord15 NA 142 mEq/L 12/16/2015 Metabolic Ord15 K 3.4 mEq/L 12/16/2015 Metabolic Ord15 CL 107 mEq/L 12/16/2015 Metabolic Ord15 CO2 29.0 mEq/L 12/16/2015 Metabolic Ord15 GLUCOSE 102 mg/dL 12/16/2015 Metabolic Ord15 BUN 23 mg/dL 12/16/2015 Metabolic Ord15 Creat 1.4 mg/dL 12/16/2015 Metabolic Ord15 B/C Ratio 16.7 Ratio 12/16/2015 Metabolic Ord15 eGFR 42 ml/min/1.73m2 12/16/2015 Metabolic Ord15 Osmo 287 mOsmo 12/16/2015 Metabolic Ord15 ANION GAP 9 12/16/2015 Metabolic Ord15 CALCIUM 9.4 mg/dL 12/16/2015 Magnesium Ord90 Mag 2.1 mg/dL 12/16/2015 Free T4 Skr181 FREE T4 0.92 ng/dL 12/16/2015 Tsh Ord6 hTSH II 4.67 uIU/mL 12/16/2015 Sed Rate Ord21 ESR 12 mm/hr 08/05/2015 Tsh Ord6 hTSH II 2.32 uIU/mL 08/04/2015 Cbc With Differential Ord2 WBC 8.40 K/ul 08/04/2015 Cbc With Differential Ord2 RBC 4.21 M/ul 08/04/2015 Cbc With Differential Ord2 HGB 12.0 g/dl 08/04/2015 Cbc With Differential Ord2 HCT 38.5 % 08/04/2015 Cbc With Differential Ord2 Neut% 84.3 % 08/04/2015 Cbc With Differential Ord2 MCV 91.4 fl 08/04/2015 Cbc With Differential Ord2 Lymph% 8.7 % 08/04/2015 Cbc With Differential Ord2 MCH 28.5 pg 08/04/2015 Cbc With Differential Ord2 [place]% 6.1 % 08/04/2015 Cbc With Differential Ord2 MCHC 31.2 pg 08/04/2015 Cbc With Differential Ord2 Eos% 0.8 % 08/04/2015 Cbc With Differential Ord2 PLT 286 K/ul 08/04/2015 Cbc With Differential Ord2 Baso% 0.1 % 08/04/2015 Cbc With Differential Ord2 RDW 18.7 % 08/04/2015 Cbc With Differential Ord2 Neut ABS# 7.08 K/ul 08/04/2015 Cbc With Differential Ord2 Lymph ABS# 0.73 K/ul 08/04/2015 Cbc With Differential Ord2 [place] ABS# 0.5 K/ul 08/04/2015 Cbc With Differential Ord2 Eos ABS# 0.1 K/ul 08/04/2015 Cbc With Differential Ord2 Baso ABS# 0.0 K/ul 08/04/2015 Cbc With Differential Ord2 New Analyzer Notice Please note new ref ranges starting 07-09-2015 due to implemntation of new five part differential hematolgy analyzer. 08/04/2015 C-Reactive Protein Qnt Crqnt CRP 0.8 mg/dl 08/04/2015 Comp Metabolic Zaj233 NA 139 mEq/L 08/04/2015 Comp Metabolic Ivr072 K 3.4 mEq/L 08/04/2015 Comp Metabolic Sja167 CL 109 mEq/L 08/04/2015 Comp Metabolic Kqe760 CO2 22.0 mEq/L 08/04/2015 Comp Metabolic Mkn195 ANION GAP 11 08/04/2015 Comp Metabolic Gfc293 GLUCOSE 177 mg/dL 08/04/2015 Comp Metabolic Rdy033 Creat 1.0 mg/dL 08/04/2015 Comp Metabolic Xpz414 eGFR 64 ml/min/1.73m2 08/04/2015 Comp Metabolic Cor449 BUN 35 mg/dL 08/04/2015 Comp Metabolic Mvj470 B/C Ratio 36.8 Ratio 08/04/2015 Comp Metabolic Ots713 CALCIUM 8.5 mg/dL 08/04/2015 Comp Metabolic Xaf388 ALK PHOS 57 U/L 08/04/2015 Comp Metabolic Vdi913 AST(SGOT) 21 U/L 08/04/2015 Comp Metabolic Ger701 ALT(SGPT) 63 U/L 08/04/2015 Comp Metabolic Pqn917 BILI T 0.3 mg/dL 08/04/2015 Comp Metabolic Rys770 ALBUMIN 3.1 g/dL 08/04/2015 Comp Metabolic Uki464 TPRO 5.1 g/dL 08/04/2015 Comp Metabolic Gid805 GLOB 2.0 g/dL 08/04/2015 Comp Metabolic Kkr107 A/G Ratio 1.6 Ratio 08/04/2015 Comp Metabolic Xab651 Osmo 290 mOsmo 08/04/2015 Cpk Ord61 CPK 52 U/L 08/04/2015 Random Urine Protein/Creatinine Ratio Kay3458 U Prot 8.5 mg/dl 05/27/2015 Random Urine Protein/Creatinine Ratio Flf1923 U CREAT 201.0 mg/dL 05/27/2015 Random Urine Protein/Creatinine Ratio Wdz1590 R MTP/Creat Ratio 0.04 05/27/2015 Urinalysis Ord28 U-Color Yellow 05/27/2015 Urinalysis Ord28 U-Clarity Clear 05/27/2015 Urinalysis Ord28 U-Gluc Negative 05/27/2015 Urinalysis Ord28 U-Bili Negative 05/27/2015 Urinalysis Ord28 U-Ketone Negative 05/27/2015 Urinalysis Ord28 U-SG 1.015 05/27/2015 Urinalysis Ord28 U-Blood Negative 05/27/2015 Urinalysis Ord28 U-pH 6.0 05/27/2015 Urinalysis Ord28 U-Protein Negative 05/27/2015 Urinalysis Ord28 U-Urobilin 0.2 E.U./dL E.U./dL 05/27/2015 Urinalysis Ord28 U-Nitrites Negative 05/27/2015 Urinalysis Ord28 U-Leuk Negative 05/27/2015 Urinalysis Ord28 U-Bact None 05/27/2015 Urinalysis Ord28 U-Squamous Epi None per/HPF 05/27/2015 Urinalysis Ord28 U-Crystal None per/HPF 05/27/2015 Urinalysis Ord28 U-Mucus 4+ 05/27/2015 Urinalysis Ord28 U-Renal tubular epi None 05/27/2015 Urinalysis Ord28 U-RBC None per/HPF 05/27/2015 Urinalysis Ord28 U-Transitional epi None per/HPF 05/27/2015 Urinalysis Ord28 U-WBC RARE per/HPF 05/27/2015 Urinalysis Ord28 U-Cast HYALINE CAST per/HPF 05/27/2015 Urinalysis Ord28 U-VOL VOLUME SUFFICIENT (10mL) 05/27/2015 Urinalysis Ord28 U-Yeast NEGATIVE 05/27/2015 Urinalysis Ord28 U-Com Urine saved if culture needed (specimen acceptable for 48 hours from collection if refrigerated) 05/27/2015 Renal Ypl419 NA 136 mEq/L 05/26/2015 Renal Nys613 K 3.3 mEq/L 05/26/2015 Renal Pmu905 CL 99 mEq/L 05/26/2015 Renal Dwe464 CO2 25.0 mEq/L 05/26/2015 Renal Sax369 ANION GAP 15 05/26/2015 Renal Dwu565 Osmo 274 mOsmo 05/26/2015 Renal Rwk556 GLUCOSE 106 mg/dL 05/26/2015 Renal Oxm493 BUN 17 mg/dL 05/26/2015 Renal Vnm570 Creat 1.4 mg/dL 05/26/2015 Renal Kxw936 eGFR 40 ml/min/1.73m2 05/26/2015 Renal Vfh758 B/C Ratio 12.0 Ratio 05/26/2015 Renal Ylw217 CALCIUM 9.3 mg/dL 05/26/2015 Renal Lll464 PHOS 3.4 mg/dL 05/26/2015 Renal Bfv606 ALBUMIN 3.4 g/dL 05/26/2015 Cbc With Differential Ord2 WBC 10.9 K/uL 05/26/2015 Cbc With Differential Ord2 LYM 2.3 K/uL 05/26/2015 Cbc With Differential Ord2 LYM% 21.2 % 05/26/2015 Cbc With Differential Ord2 NEUT/GRAN 7.6 K/uL 05/26/2015 Cbc With Differential Ord2 NEUT/GRAN % 70.0 % 05/26/2015 Cbc With Differential Ord2 MID 1.0 K/uL 05/26/2015 Cbc With Differential Ord2 MID% 8.8 % 05/26/2015 Cbc With Differential Ord2 RBC 4.92 M/uL 05/26/2015 Cbc With Differential Ord2 HGB 14.4 g/dL 05/26/2015 Cbc With Differential Ord2 HCT 44.0 % 05/26/2015 Cbc With Differential Ord2 MCV 90 fL 05/26/2015 Cbc With Differential Ord2 MCH 29 pg 05/26/2015 Cbc With Differential Ord2 MCHC 33 g/dL 05/26/2015 Cbc With Differential Ord2 PLT 384 K/uL 05/26/2015 Cbc With Differential Ord2 RDW 14.5 % 05/26/2015 Cbc With Differential Ord2 WBC 9.8 K/uL 04/21/2015 Cbc With Differential Ord2 LYM 2.2 K/uL 04/21/2015 Cbc With Differential Ord2 LYM% 22.1 % 04/21/2015 Cbc With Differential Ord2 NEUT/GRAN 6.6 K/uL 04/21/2015 Cbc With Differential Ord2 NEUT/GRAN % 67.2 % 04/21/2015 Cbc With Differential Ord2 MID 1.0 K/uL 04/21/2015 Cbc With Differential Ord2 MID% 10.7 % 04/21/2015 Cbc With Differential Ord2 RBC 5.01 M/uL 04/21/2015 Cbc With Differential Ord2 HGB 14.6 g/dL 04/21/2015 Cbc With Differential Ord2 HCT 45.5 % 04/21/2015 Cbc With Differential Ord2 MCV 91 fL 04/21/2015 Cbc With Differential Ord2 MCH 29 pg 04/21/2015 Cbc With Differential Ord2 MCHC 32 g/dL 04/21/2015 Cbc With Differential Ord2 PLT 374 K/uL 04/21/2015 Cbc With Differential Ord2 RDW 14.3 % 04/21/2015 Free T4 Grt562 FREE T4 0.91 ng/dL 04/21/2015 %Hba1C Jnc040 % HbA1c 34372-8 5.8 % 04/21/2015 %Hba1C Imw643 Gluc Ave 120 mg/dL 04/21/2015 Comp Metabolic Kxl448 NA 137 mEq/L 04/21/2015 Comp Metabolic Mdw437 K 3.6 mEq/L 04/21/2015 Comp Metabolic Ttt310 CL 98 mEq/L 04/21/2015 Comp Metabolic Xnk191 CO2 25.0 mEq/L 04/21/2015 Comp Metabolic Bxe635 ANION GAP 18 04/21/2015 Comp Metabolic Glf343 GLUCOSE 83 mg/dL 04/21/2015 Comp Metabolic Dhi210 Creat 1.6 mg/dL 04/21/2015 Comp Metabolic Qhz274 eGFR 36 ml/min/1.73m2 04/21/2015 Comp Metabolic Nwg678 BUN 28 mg/dL 04/21/2015 Comp Metabolic Flu950 B/C Ratio 17.9 Ratio 04/21/2015 Comp Metabolic Ynq843 CALCIUM 9.5 mg/dL 04/21/2015 Comp Metabolic Eut081 ALK PHOS 60 U/L 04/21/2015 Comp Metabolic Qcm857 AST(SGOT) 22 U/L 04/21/2015 Comp Metabolic Kox235 ALT(SGPT) 10 U/L 04/21/2015 Comp Metabolic Nlv257 BILI T 0.4 mg/dL 04/21/2015 Comp Metabolic Ojv919 ALBUMIN 4.0 g/dL 04/21/2015 Comp Metabolic Djs489 TPRO 6.8 g/dL 04/21/2015 Comp Metabolic Lpk007 GLOB 2.8 g/dL 04/21/2015 Comp Metabolic Mmz041 A/G Ratio 1.4 Ratio 04/21/2015 Comp Metabolic Qws004 Osmo 278 mOsmo 04/21/2015 Tsh Ord6 hTSH II 2.58 uIU/mL 04/21/2015 Review of Systems System Result Effective Dates Constitutional No recent illness 2018 Constitutional No chills 09/13/2018 Constitutional No diaphoresis 09/13/2018 Constitutional No fever 09/13/2018 Eyes No eye erythema 09/13/2018 Ears/Nose/Throat/Neck No nasal discharge 09/13/2018 Ears/Nose/Throat/Neck nasal allergies Cardiovascular No chest pain/pressure Respiratory No cough 09/13/2018 Respiratory dyspnea on exertion 2018 Respiratory No dyspnea 09/13/2018 Respiratory No chest congestion 2018 Gastrointestinal No abdominal pain 2018 Neurologic No alteration of consciousness 09/13/2018 Neurologic No mental status change 2018 Constitutional No recent illness 2017 Constitutional No chills 05/04/2018 Constitutional fatigue 05/04/2018 Constitutional No fever 05/04/2018 Constitutional No malaise 05/04/2018 Eyes No eye pain 05/04/2018 Eyes No vision change 05/04/2018 Ears/Nose/Throat/Neck No dizziness 2017 Ears/Nose/Throat/Neck No nasal allergies 05/04/2018 Ears/Nose/Throat/Neck No nasal discharge 05/04/2018 Cardiovascular No chest pain/pressure 01/2018 Respiratory No chest congestion 2017 Respiratory No cough 05/04/2018 Respiratory dyspnea on exertion 2017 Respiratory No dyspnea 05/04/2018 Gastrointestinal No abdominal pain 2017 Gastrointestinal No constipation 2017 Gastrointestinal No diarrhea 05/04/2018 Gastrointestinal No nausea 05/04/2018 Gastrointestinal No vomiting 05/04/2018 Dermatologic No rash 05/04/2018 Neurologic No alteration of consciousness 05/04/2018 Neurologic No mental status change 2017 Eyes No eye erythema 05/04/2018 Musculoskeletal arthralgia(s) 05/04/2018 Constitutional No recent illness 2017 Constitutional No chills 01/10/2018 Constitutional fatigue 01/10/2018 Constitutional No fever 01/10/2018 Constitutional No malaise 01/10/2018 Eyes No eye pain 01/10/2018 Eyes No vision change 01/10/2018 Ears/Nose/Throat/Neck No dizziness 2017 Ears/Nose/Throat/Neck No nasal allergies 01/10/2018 Ears/Nose/Throat/Neck No nasal discharge 01/10/2018 Cardiovascular No chest pain/pressure Cardiovascular fatigue 01/10/2018 Respiratory No chest congestion 2017 Respiratory No cough 01/10/2018 Respiratory dyspnea on exertion 2017 Respiratory No dyspnea 01/10/2018 Gastrointestinal No abdominal pain 2017 Gastrointestinal No constipation 2017 Gastrointestinal No diarrhea 01/10/2018 Gastrointestinal No nausea 01/10/2018 Gastrointestinal No vomiting 01/10/2018 Musculoskeletal arthralgia(s) 01/10/2018 Dermatologic No rash 01/10/2018 Neurologic No alteration of consciousness 01/10/2018 Neurologic No mental status change 2017 Constitutional diaphoresis 01/10/2018 Eyes No eye pain 12/06/2017 Eyes No vision change 12/06/2017 Ears/Nose/Throat/Neck No dizziness 2017 Cardiovascular No chest pain/pressure 05/2018 Gastrointestinal No abdominal pain 2017 Gastrointestinal No constipation 2017 Gastrointestinal No diarrhea 12/06/2017 Gastrointestinal No nausea 12/06/2017 Gastrointestinal No vomiting 12/06/2017 Musculoskeletal arthralgia(s) 12/06/2017 Dermatologic No rash 12/06/2017 Neurologic No alteration of consciousness 12/06/2017 Constitutional No recent illness 2017 Constitutional No chills 12/06/2017 Constitutional diaphoresis 12/06/2017 Constitutional fatigue 12/06/2017 Constitutional No fever 12/06/2017 Constitutional No malaise 12/06/2017 Ears/Nose/Throat/Neck No nasal discharge 12/06/2017 Ears/Nose/Throat/Neck No nasal allergies 12/06/2017 Cardiovascular dyspnea 12/06/2017 Cardiovascular fatigue 12/06/2017 Respiratory dyspnea on exertion 2017 Respiratory No dyspnea 12/06/2017 Respiratory No cough 12/06/2017 Respiratory No chest congestion 2017 Neurologic No mental status change 2017 Constitutional recent illness 06/22/2017 Constitutional chills 06/22/2017 Constitutional fever 06/22/2017 Eyes No eye erythema 06/22/2017 Ears/Nose/Throat/Neck nasal allergies Ears/Nose/Throat/Neck nasal discharge Ears/Nose/Throat/Neck postnasal drip Ears/Nose/Throat/Neck sinus congestion Ears/Nose/Throat/Neck No sore throat Cardiovascular No chest pain/pressure Respiratory chest congestion 06/22/2017 Respiratory cough 06/22/2017 Gastrointestinal No abdominal pain 2016 Dermatologic No rash 06/22/2017 Neurologic No alteration of consciousness 06/22/2017 Neurologic No mental status change 2016 Constitutional diaphoresis 06/22/2017 Constitutional malaise 06/22/2017 Constitutional No recent illness 2016 Constitutional No chills 03/02/2017 Constitutional No fever 03/02/2017 Eyes No eye erythema 03/02/2017 Ears/Nose/Throat/Neck nasal allergies 11/2016 Ears/Nose/Throat/Neck nasal discharge 11/2016 Ears/Nose/Throat/Neck postnasal drip 11/2016 Ears/Nose/Throat/Neck sinus congestion Cardiovascular No chest pain/pressure 11/2016 Cardiovascular No dyspnea 03/02/2017 Respiratory cough 03/02/2017 Respiratory No dyspnea 03/02/2017 Gastrointestinal No abdominal pain 2016 Dermatologic No rash 03/02/2017 Neurologic No alteration of consciousness 03/02/2017 Neurologic No mental status change 2016 Ears/Nose/Throat/Neck sore throat 2016 Respiratory chest congestion 03/02/2017 Constitutional No recent illness 2016 Constitutional No chills 01/24/2017 Constitutional diaphoresis 01/24/2017 Constitutional No fever 01/24/2017 Constitutional fatigue 01/24/2017 Eyes No eye erythema 01/24/2017 Ears/Nose/Throat/Neck nasal allergies Ears/Nose/Throat/Neck No nasal discharge 01/24/2017 Cardiovascular No chest pain/pressure Cardiovascular No dyspnea 01/24/2017 Respiratory No cough 01/24/2017 Respiratory No dyspnea 01/24/2017 Gastrointestinal No abdominal pain 2016 Dermatologic No rash 01/24/2017 Neurologic No alteration of consciousness 01/24/2017 Neurologic No mental status change 2016 Ears/Nose/Throat/Neck postnasal drip Ears/Nose/Throat/Neck sinus congestion Constitutional recent illness 10/13/2016 Constitutional No fever 10/13/2016 Eyes No eye erythema 10/13/2016 Ears/Nose/Throat/Neck nasal allergies Ears/Nose/Throat/Neck nasal discharge Ears/Nose/Throat/Neck postnasal drip Ears/Nose/Throat/Neck sinus congestion Ears/Nose/Throat/Neck sore throat 2016 Ears/Nose/Throat/Neck headache 2016 Cardiovascular No chest pain/pressure Respiratory cough 10/13/2016 Respiratory dyspnea on exertion 2016 Gastrointestinal No abdominal pain 2016 Neurologic No alteration of consciousness 10/13/2016 Neurologic No mental status change 2016 Constitutional No recent illness 2016 Constitutional No anorexia 08/30/2016 Constitutional No night sweats 2016 Constitutional No chills 08/30/2016 Constitutional diaphoresis 08/30/2016 Constitutional No fatigue 08/30/2016 Constitutional No fever 08/30/2016 Constitutional No insomnia 08/30/2016 Constitutional No malaise 08/30/2016 Constitutional No weight loss 08/30/2016 Constitutional No weight gain 08/30/2016 Constitutional No obesity 08/30/2016 Eyes No eye pain 08/30/2016 Eyes No vision change 08/30/2016 Ears/Nose/Throat/Neck No dizziness 2016 Ears/Nose/Throat/Neck No headache 2016 Cardiovascular dyspnea 08/30/2016 Cardiovascular No chest pain/pressure 11/2016 Cardiovascular fatigue 08/30/2016 Gastrointestinal No abdominal pain 2016 Gastrointestinal No diarrhea 08/30/2016 Gastrointestinal No constipation 2016 Gastrointestinal No nausea 08/30/2016 Gastrointestinal No vomiting 08/30/2016 Respiratory No chest congestion 2016 Respiratory No chest tightness 2016 Respiratory No cigarette smoking 2016 Respiratory No cough 08/30/2016 Respiratory dyspnea 08/30/2016 Genitourinary/Nephrology No dysuria 08/30 Genitourinary/Nephrology No anuria/oliguria 08/30/2016 Musculoskeletal No stiffness 08/30/2016 Musculoskeletal No swelling 08/30/2016 Musculoskeletal arthralgia(s) 08/30/2016 Dermatologic No rash 08/30/2016 Dermatologic No sores 08/30/2016 Neurologic No hearing loss 08/30/2016 Neurologic No headache 08/30/2016 Neurologic No alteration of consciousness 08/30/2016 Psychiatric No anxiety 08/30/2016 Psychiatric No depression 08/30/2016 Hematologic/Lymphatic No abnormal ecchymoses 08/30/2016 Hematologic/Lymphatic No abnormal bleeding and bruising 08/30/2016 Endocrine No polyuria 08/30/2016 Endocrine No polydipsia 08/30/2016 Endocrine No sweating 08/30/2016 Constitutional No recent illness 2016 Constitutional No chills 07/02/2016 Constitutional No fever 07/02/2016 Eyes No eye erythema 07/02/2016 Ears/Nose/Throat/Neck No nasal allergies 07/02/2016 Ears/Nose/Throat/Neck No nasal discharge 07/02/2016 Cardiovascular No chest pain/pressure 11/2016 Cardiovascular No dyspnea 07/02/2016 Respiratory No cough 07/02/2016 Respiratory No dyspnea 07/02/2016 Gastrointestinal No abdominal pain 2016 Neurologic No alteration of consciousness 07/02/2016 Neurologic No mental status change 2016 Musculoskeletal joint complaint 2016 Constitutional No recent illness 2015 Constitutional No chills 06/24/2016 Constitutional No fever 06/24/2016 Eyes No eye erythema 06/24/2016 Ears/Nose/Throat/Neck No nasal discharge 06/24/2016 Ears/Nose/Throat/Neck No nasal allergies 06/24/2016 Cardiovascular No chest pain/pressure Cardiovascular No dyspnea 06/24/2016 Respiratory No cough 06/24/2016 Respiratory No dyspnea 06/24/2016 Gastrointestinal No abdominal pain 2015 Dermatologic No rash 06/24/2016 Neurologic No alteration of consciousness 06/24/2016 Neurologic No mental status change 2015 Endocrine sweating 06/24/2016 Endocrine flushing 06/24/2016 Constitutional No recent illness 2015 Constitutional No anorexia 05/04/2016 Constitutional No night sweats 2015 Constitutional No chills 05/04/2016 Constitutional No diaphoresis 05/04/2016 Constitutional fatigue 05/04/2016 Constitutional No fever 05/04/2016 Constitutional No insomnia 05/04/2016 Constitutional No malaise 05/04/2016 Eyes No eye discharge 05/04/2016 Eyes No eye erythema 05/04/2016 Eyes vision change 05/04/2016 Ears/Nose/Throat/Neck No dizziness 2015 Ears/Nose/Throat/Neck No headache 2015 Cardiovascular No chest pain/pressure 01/2016 Cardiovascular No dyspnea 05/04/2016 Cardiovascular edema 05/04/2016 Respiratory No cough 05/04/2016 Gastrointestinal No abdominal pain 2015 Genitourinary/Nephrology No dysuria 05/04 Dermatologic No rash 05/04/2016 Dermatologic No sores 05/04/2016 Neurologic No alteration of consciousness 05/04/2016 Psychiatric No anxiety 05/04/2016 Psychiatric No depression 05/04/2016 Constitutional No recent illness 2015 Constitutional No anorexia 04/06/2016 Constitutional No night sweats 2015 Constitutional No chills 04/06/2016 Constitutional No diaphoresis 04/06/2016 Constitutional fatigue 04/06/2016 Constitutional No fever 04/06/2016 Constitutional No insomnia 04/06/2016 Constitutional No malaise 04/06/2016 Eyes No eye discharge 04/06/2016 Eyes No eye erythema 04/06/2016 Eyes vision change 04/06/2016 Ears/Nose/Throat/Neck No dizziness 2015 Ears/Nose/Throat/Neck No headache 2015 Cardiovascular No chest pain/pressure 04/2016 Cardiovascular No dyspnea 04/06/2016 Cardiovascular edema 04/06/2016 Respiratory No cough 04/06/2016 Gastrointestinal No abdominal pain 2015 Genitourinary/Nephrology No dysuria 04/06 Musculoskeletal joint complaint 2015 Dermatologic No rash 04/06/2016 Dermatologic No sores 04/06/2016 Neurologic No alteration of consciousness 04/06/2016 Psychiatric No anxiety 04/06/2016 Psychiatric No depression 04/06/2016 Constitutional No recent illness 2015 Constitutional No anorexia 03/18/2016 Constitutional No night sweats 2015 Constitutional No chills 03/18/2016 Constitutional diaphoresis 03/18/2016 Constitutional fatigue 03/18/2016 Constitutional No fever 03/18/2016 Constitutional No insomnia 03/18/2016 Constitutional No malaise 03/18/2016 Constitutional No weight loss 03/18/2016 Constitutional No weight gain 03/18/2016 Eyes No eye discharge 03/18/2016 Eyes No eye erythema 03/18/2016 Ears/Nose/Throat/Neck No dizziness 2015 Ears/Nose/Throat/Neck No headache 2015 Cardiovascular No chest pain/pressure Cardiovascular No dyspnea 03/18/2016 Cardiovascular edema 03/18/2016 Respiratory No cough 03/18/2016 Gastrointestinal No abdominal pain 2015 Genitourinary/Nephrology No dysuria 03/18 Musculoskeletal joint complaint 2015 Dermatologic No rash 03/18/2016 Dermatologic No sores 03/18/2016 Neurologic No alteration of consciousness 03/18/2016 Musculoskeletal joint complaint 2015 Constitutional No anorexia 03/11/2016 Constitutional No recent illness 2015 Constitutional night sweats 03/11/2016 Constitutional No chills 03/11/2016 Constitutional diaphoresis 03/11/2016 Constitutional fatigue 03/11/2016 Constitutional No fever 03/11/2016 Constitutional No insomnia 03/11/2016 Constitutional No malaise 03/11/2016 Constitutional No weight loss 03/11/2016 Constitutional No weight gain 03/11/2016 Eyes No eye discharge 03/11/2016 Eyes No eye erythema 03/11/2016 Eyes vision change 03/11/2016 Ears/Nose/Throat/Neck No dizziness 2015 Ears/Nose/Throat/Neck No headache 2015 Cardiovascular No chest pain/pressure Cardiovascular No dyspnea 03/11/2016 Cardiovascular edema 03/11/2016 Respiratory No cough 03/11/2016 Dermatologic No rash 03/11/2016 Dermatologic No sores 03/11/2016 Genitourinary/Nephrology No dysuria 03/11 Gastrointestinal No abdominal pain 2015 Neurologic No alteration of consciousness 03/11/2016 Gastrointestinal diarrhea 02/24/2016 Gastrointestinal No constipation 2015 Musculoskeletal joint complaint 2015 Constitutional No recent illness 2015 Constitutional No anorexia 02/24/2016 Constitutional No night sweats 2015 Constitutional No chills 02/24/2016 Constitutional No diaphoresis 02/24/2016 Constitutional No fever 02/24/2016 Constitutional No fatigue 02/24/2016 Constitutional No insomnia 02/24/2016 Constitutional No malaise 02/24/2016 Constitutional No weight loss 02/24/2016 Constitutional No weight gain 02/24/2016 Eyes No eye erythema 02/24/2016 Eyes No eye discharge 02/24/2016 Ears/Nose/Throat/Neck No dizziness 2015 Cardiovascular No chest pain/pressure Cardiovascular edema 02/24/2016 Respiratory No cough 02/24/2016 Respiratory dyspnea on exertion 2015 Dermatologic No rash 02/24/2016 Neurologic No alteration of consciousness 02/24/2016 Constitutional No recent illness 2015 Constitutional No anorexia 12/16/2015 Constitutional No night sweats 2015 Constitutional No chills 12/16/2015 Constitutional No diaphoresis 12/16/2015 Constitutional fatigue 12/16/2015 Constitutional No fever 12/16/2015 Constitutional No insomnia 12/16/2015 Constitutional No malaise 12/16/2015 Eyes No eye discharge 12/16/2015 Eyes No eye erythema 12/16/2015 Ears/Nose/Throat/Neck No dizziness 2015 Ears/Nose/Throat/Neck No headache 2015 Ears/Nose/Throat/Neck No nasal allergies 12/16/2015 Ears/Nose/Throat/Neck No nasal discharge 12/16/2015 Cardiovascular No chest pain/pressure Cardiovascular No edema 12/16/2015 Cardiovascular No palpitations 2015 Respiratory No productive sputum 2015 Respiratory No chest congestion 2015 Respiratory No cough 12/16/2015 Respiratory dyspnea on exertion 2015 Respiratory dyspnea 12/16/2015 Gastrointestinal No abdominal pain 2015 Gastrointestinal No constipation 2015 Gastrointestinal No diarrhea 12/16/2015 Musculoskeletal stiffness 12/16/2015 Musculoskeletal joint complaint 2015 Musculoskeletal muscle weakness 2015 Musculoskeletal myalgias 12/16/2015 Dermatologic No rash 12/16/2015 Neurologic No alteration of consciousness 12/16/2015 Psychiatric anxiety 12/16/2015 Psychiatric depression 12/16/2015 Constitutional No recent illness 2015 Constitutional No anorexia 10/30/2015 Constitutional No night sweats 2015 Constitutional No chills 10/30/2015 Constitutional No diaphoresis 10/30/2015 Constitutional fatigue 10/30/2015 Constitutional No fever 10/30/2015 Constitutional No insomnia 10/30/2015 Constitutional No malaise 10/30/2015 Eyes No eye discharge 10/30/2015 Eyes No eye erythema 10/30/2015 Ears/Nose/Throat/Neck No dizziness 2015 Ears/Nose/Throat/Neck No headache 2015 Ears/Nose/Throat/Neck No nasal allergies 10/30/2015 Ears/Nose/Throat/Neck No nasal discharge 10/30/2015 Cardiovascular No chest pain/pressure 10/2015 Cardiovascular No edema 10/30/2015 Cardiovascular exercise intolerance 10/29 Cardiovascular fatigue 10/30/2015 Cardiovascular No palpitations 2015 Respiratory No productive sputum 2015 Respiratory No chest congestion 2015 Respiratory No cough 10/30/2015 Respiratory dyspnea on exertion 2015 Respiratory dyspnea 10/30/2015 Gastrointestinal No abdominal pain 2015 Gastrointestinal No constipation 2015 Gastrointestinal No diarrhea 10/30/2015 Musculoskeletal stiffness 10/30/2015 Musculoskeletal joint complaint 2015 Musculoskeletal muscle weakness 2015 Musculoskeletal myalgias 10/30/2015 Dermatologic No rash 10/30/2015 Neurologic No alteration of consciousness 10/30/2015 Psychiatric anxiety 10/30/2015 Psychiatric depression 10/30/2015 Constitutional No recent illness 2015 Constitutional No anorexia 09/23/2015 Constitutional No night sweats 2015 Constitutional No chills 09/23/2015 Constitutional No diaphoresis 09/23/2015 Constitutional fatigue 09/23/2015 Constitutional No fever 09/23/2015 Constitutional No insomnia 09/23/2015 Constitutional No malaise 09/23/2015 Eyes No eye discharge 09/23/2015 Eyes No eye erythema 09/23/2015 Ears/Nose/Throat/Neck No dizziness 2015 Ears/Nose/Throat/Neck No headache 2015 Ears/Nose/Throat/Neck No nasal allergies 09/23/2015 Ears/Nose/Throat/Neck No nasal discharge 09/23/2015 Cardiovascular No chest pain/pressure Cardiovascular No edema 09/23/2015 Cardiovascular exercise intolerance 09/22 Cardiovascular fatigue 09/23/2015 Cardiovascular No palpitations 2015 Respiratory No productive sputum 2015 Respiratory No chest congestion 2015 Respiratory No cough 09/23/2015 Respiratory dyspnea on exertion 2015 Respiratory dyspnea 09/23/2015 Gastrointestinal No abdominal pain 2015 Gastrointestinal No constipation 2015 Gastrointestinal diarrhea 09/23/2015 Musculoskeletal stiffness 09/23/2015 Musculoskeletal No joint complaint 2015 Musculoskeletal muscle weakness 2015 Musculoskeletal No myalgias 09/23/2015 Dermatologic No rash 09/23/2015 Neurologic No alteration of consciousness 09/23/2015 Psychiatric anxiety 09/23/2015 Psychiatric depression 09/23/2015 Constitutional No recent illness 2015 Constitutional No anorexia 09/10/2015 Constitutional No night sweats 2015 Constitutional No chills 09/10/2015 Constitutional No diaphoresis 09/10/2015 Constitutional fatigue 09/10/2015 Constitutional No fever 09/10/2015 Constitutional No insomnia 09/10/2015 Constitutional No malaise 09/10/2015 Eyes No eye discharge 09/10/2015 Eyes No eye erythema 09/10/2015 Ears/Nose/Throat/Neck No dizziness 2015 Ears/Nose/Throat/Neck No headache 2015 Ears/Nose/Throat/Neck No nasal allergies 09/10/2015 Ears/Nose/Throat/Neck No nasal discharge 09/10/2015 Cardiovascular No chest pain/pressure Cardiovascular No edema 09/10/2015 Cardiovascular exercise intolerance 09/09 Cardiovascular fatigue 09/10/2015 Cardiovascular No palpitations 2015 Respiratory No productive sputum 2015 Respiratory No chest congestion 2015 Respiratory No cough 09/10/2015 Respiratory dyspnea on exertion 2015 Respiratory dyspnea 09/10/2015 Gastrointestinal No abdominal pain 2015 Gastrointestinal No constipation 2015 Gastrointestinal diarrhea 09/10/2015 Musculoskeletal stiffness 09/10/2015 Musculoskeletal muscle weakness 2015 Dermatologic No rash 09/10/2015 Neurologic No alteration of consciousness 09/10/2015 Psychiatric anxiety 09/10/2015 Psychiatric depression 09/10/2015 Musculoskeletal No joint complaint 2015 Musculoskeletal No myalgias 09/10/2015 Constitutional No fatigue 08/12/2015 Constitutional recent illness 08/12/2015 Ears/Nose/Throat/Neck No facial pain Ears/Nose/Throat/Neck headache 2015 Ears/Nose/Throat/Neck nasal discharge Ears/Nose/Throat/Neck No sinusitis 2015 Ears/Nose/Throat/Neck No sore throat Cardiovascular No chest pain/pressure Cardiovascular No dyspnea 08/12/2015 Cardiovascular No edema 08/12/2015 Cardiovascular No fatigue 08/12/2015 Cardiovascular No syncope 08/12/2015 Respiratory No chest tightness 2015 Respiratory No cigarette smoking 2015 Respiratory No cough 08/12/2015 Respiratory No dyspnea 08/12/2015 Respiratory No wheezing 08/12/2015 Gastrointestinal No constipation 2015 Gastrointestinal No diarrhea 08/12/2015 Gastrointestinal No dyspepsia 08/12/2015 Gastrointestinal No nausea 08/12/2015 Musculoskeletal No muscle weakness 2015 Musculoskeletal No myalgias 08/12/2015 Dermatologic No rash 08/12/2015 Neurologic No ataxia 08/12/2015 Neurologic No dizziness 08/12/2015 Neurologic No pain, facial 08/12/2015 Psychiatric No anxiety 08/12/2015 Psychiatric No depression 08/12/2015 Constitutional No recent illness 2015 Constitutional No anorexia 08/04/2015 Constitutional No night sweats 2015 Constitutional No chills 08/04/2015 Constitutional No diaphoresis 08/04/2015 Constitutional fatigue 08/04/2015 Constitutional No fever 08/04/2015 Constitutional No insomnia 08/04/2015 Constitutional No malaise 08/04/2015 Eyes No eye discharge 08/04/2015 Eyes No eye erythema 08/04/2015 Ears/Nose/Throat/Neck No dizziness 2015 Ears/Nose/Throat/Neck No headache 2015 Ears/Nose/Throat/Neck No nasal allergies 08/04/2015 Ears/Nose/Throat/Neck No nasal discharge 08/04/2015 Cardiovascular No chest pain/pressure 01/2016 Cardiovascular No edema 08/04/2015 Cardiovascular exercise intolerance 08/04 Cardiovascular fatigue 08/04/2015 Cardiovascular No palpitations 2015 Respiratory No productive sputum 2015 Respiratory No chest congestion 2015 Respiratory No cough 08/04/2015 Respiratory dyspnea on exertion 2015 Respiratory dyspnea 08/04/2015 Gastrointestinal No abdominal pain 2015 Gastrointestinal No constipation 2015 Gastrointestinal No diarrhea 08/04/2015 Musculoskeletal joint complaint 2015 Dermatologic No rash 08/04/2015 Neurologic No alteration of consciousness 08/04/2015 Psychiatric anxiety 08/04/2015 Psychiatric depression 08/04/2015 Musculoskeletal muscle weakness 2015 Musculoskeletal myalgias 08/04/2015 Musculoskeletal stiffness 08/04/2015 Constitutional No recent illness 2014 Constitutional No night sweats 2014 Constitutional No chills 05/16/2015 Constitutional No diaphoresis 05/16/2015 Constitutional fatigue 05/16/2015 Constitutional No fever 05/16/2015 Constitutional No insomnia 05/16/2015 Constitutional No malaise 05/16/2015 Eyes No eye discharge 05/16/2015 Eyes No eye erythema 05/16/2015 Ears/Nose/Throat/Neck No dizziness 2014 Ears/Nose/Throat/Neck No headache 2014 Ears/Nose/Throat/Neck No nasal allergies 05/16/2015 Ears/Nose/Throat/Neck No nasal discharge 05/16/2015 Cardiovascular No chest pain/pressure Cardiovascular No edema 05/16/2015 Respiratory No productive sputum 2014 Respiratory No chest congestion 2014 Respiratory No cough 05/16/2015 Gastrointestinal No abdominal pain 2014 Gastrointestinal No constipation 2014 Gastrointestinal No diarrhea 05/16/2015 Musculoskeletal No joint complaint 2014 Dermatologic No rash 05/16/2015 Neurologic No alteration of consciousness 05/16/2015 Psychiatric anxiety 05/16/2015 Psychiatric depression 05/16/2015 Constitutional No anorexia 05/16/2015 Cardiovascular fatigue 05/16/2015 Cardiovascular exercise intolerance 05/16 Cardiovascular No palpitations 2014 Respiratory dyspnea on exertion 2014 Respiratory dyspnea 05/16/2015 Constitutional recent illness 05/12/2015 Constitutional fatigue 05/12/2015 Respiratory chest tightness 05/12/2015 Respiratory cigarette smoking 05/12/2015 Respiratory dyspnea on exertion 2014 Gastrointestinal No abdominal pain 2014 Cardiovascular No chest pain/pressure Cardiovascular No arrhythmia 05/12/2015 Constitutional No recent illness 2014 Constitutional No anorexia 04/21/2015 Constitutional No night sweats 2014 Constitutional No chills 04/21/2015 Constitutional No diaphoresis 04/21/2015 Constitutional fatigue 04/21/2015 Constitutional No fever 04/21/2015 Constitutional No insomnia 04/21/2015 Constitutional No malaise 04/21/2015 Constitutional weight loss 04/21/2015 Eyes No eye discharge 04/21/2015 Eyes No eye erythema 04/21/2015 Ears/Nose/Throat/Neck No dizziness 2014 Ears/Nose/Throat/Neck No headache 2014 Ears/Nose/Throat/Neck No nasal allergies 04/21/2015 Ears/Nose/Throat/Neck No nasal discharge 04/21/2015 Cardiovascular No chest pain/pressure Cardiovascular No dyspnea 04/21/2015 Cardiovascular No edema 04/21/2015 Respiratory No productive sputum 2014 Respiratory No chest congestion 2014 Respiratory No cough 04/21/2015 Gastrointestinal No abdominal pain 2014 Gastrointestinal No diarrhea 04/21/2015 Gastrointestinal No constipation 2014 Genitourinary/Nephrology No dysuria 04/21 Neurologic No alteration of consciousness 04/21/2015 Dermatologic No rash 04/21/2015 Musculoskeletal No joint complaint 2014 Psychiatric anxiety 04/21/2015 Psychiatric depression 04/21/2015 Endocrine No hair loss 04/21/2015 Endocrine dry or coarse skin 04/21/2015 Hematologic/Lymphatic No abnormal bleeding and bruising 04/21/2015 Physical Exam Exam Name System Name Item Name Status Result Effective Dates Notes Full Exam - General 1994 Constitutional general appearance Overall: well nourished 09/13/2018 None Full Exam - General 1994 Constitutional general appearance Overall: in no acute distress 09/13/2018 None Full Exam - General 1994 Constitutional general appearance Overall: well developed 09/13/2018 None Full Exam - General 1994 Eyes conjunctiva /eyelids Overall: eyelids normal 09/13/2018 None Full Exam - General 1994 Eyes conjunctiva /eyelids Overall: cornea clear 09/13/2018 None Full Exam - General 1994 Eyes conjunctiva /eyelids Overall: conjunctiva clear 09/13/2018 None Full Exam - General 1994 Ears/Nose/Throat lips/teeth/gingiva Overall: benign lips 09/13/2018 None Full Exam - General 1994 Ears/Nose/Throat oral cavity/pharynx/larynx Overall: oral mucosa clear 09/13/2018 None Full Exam - General 1994 Respiratory respiratory effort/rhythm Overall: normal rate 09/13/2018 None Full Exam - General 1994 Respiratory respiratory effort/rhythm Overall: no retractions 09/13/2018 None Full Exam - General 1994 Respiratory auscultation Diffuse: diminished 09/13/2018 None Full Exam - General 1994 Cardiovascular auscultation of heart Overall: regular rate 09/13/2018 None Full Exam - General 1994 Cardiovascular auscultation of heart Overall: normal heart sounds 09/13/2018 None Full Exam - General 1994 Musculoskeletal head and neck Overall: head atraumatic 09/13/2018 None Full Exam - General 1994 Musculoskeletal gait and station Overall: normal station 09/13/2018 None Full Exam - General 1994 Musculoskeletal gait and station Overall: normal gait 09/13/2018 None Full Exam - General 1994 Neurologic cranial nerves Overall: crainial nerves 2 - 12 grossly intact 09/13/2018 None Full Exam - General 1994 Psychiatric orientation/consciousness Overall: oriented to person, place and time 09/13/2018 None Full Exam - General 1994 Psychiatric mood and affect Overall: normal mood and affect 09/13/2018 None Full Exam - General 1994 Constitutional general appearance Overall: well developed 05/04/2018 None Full Exam - General 1994 Constitutional general appearance Overall: in no acute distress 05/04/2018 None Full Exam - General 1994 Constitutional general appearance Overall: well nourished 05/04/2018 None Full Exam - General 1994 Eyes conjunctiva /eyelids Overall: conjunctiva clear 05/04/2018 None Full Exam - General 1994 Eyes conjunctiva /eyelids Overall: cornea clear 05/04/2018 None Full Exam - General 1994 Eyes conjunctiva /eyelids Overall: eyelids normal 05/04/2018 None Full Exam - General 1994 Ears/Nose/Throat lips/teeth/gingiva Overall: benign lips 05/04/2018 None Full Exam - General 1994 Ears/Nose/Throat oral cavity/pharynx/larynx Overall: oral mucosa clear 05/04/2018 None Full Exam - General 1994 Respiratory auscultation Overall: breath sounds clear bilaterally 05/04/2018 None Full Exam - General 1994 Respiratory auscultation Diffuse: diminished 05/04/2018 None Full Exam - General 1994 Respiratory respiratory effort/rhythm Overall: no retractions 05/04/2018 None Full Exam - General 1994 Respiratory respiratory effort/rhythm Overall: normal rate 05/04/2018 None Full Exam - General 1994 Cardiovascular auscultation of heart Overall: regular rate 05/04/2018 None Full Exam - General 1994 Cardiovascular auscultation of heart Overall: normal heart sounds 05/04/2018 None Full Exam - General 1994 Abdomen abdominal exam Overall: normal bowel sounds 05/04/2018 None Full Exam - General 1994 Musculoskeletal gait and station Overall: normal gait 05/04/2018 None Full Exam - General 1994 Musculoskeletal gait and station Overall: normal station 05/04/2018 None Full Exam - General 1994 Musculoskeletal head and neck Overall: head atraumatic 05/04/2018 None Full Exam - General 1994 Neurologic cranial nerves Overall: crainial nerves 2 - 12 grossly intact 05/04/2018 None Full Exam - General 1994 Psychiatric orientation/consciousness Overall: oriented to person, place and time 05/04/2018 None Full Exam - General 1994 Psychiatric mood and affect Overall: normal mood and affect 05/04/2018 None Full Exam - General 1994 Psychiatric appearance Overall: well-groomed, good eye contact 05/04/2018 None Full Exam - General 1994 Ears/Nose/Throat otoscopic exam Overall: tympanic membranes clear 05/04/2018 None Full Exam - General 1994 Ears/Nose/Throat otoscopic exam Overall: external auditory canals clear 05/04/2018 None Full Exam - General 1994 Constitutional general appearance Overall: well developed 01/10/2018 None Full Exam - General 1994 Constitutional general appearance Overall: in no acute distress 01/10/2018 None Full Exam - General 1994 Constitutional general appearance Overall: well nourished 01/10/2018 None Full Exam - General 1994 Eyes conjunctiva /eyelids Overall: conjunctiva clear 01/10/2018 None Full Exam - General 1994 Eyes conjunctiva /eyelids Overall: cornea clear 01/10/2018 None Full Exam - General 1994 Eyes conjunctiva /eyelids Overall: eyelids normal 01/10/2018 None Full Exam - General 1994 Ears/Nose/Throat lips/teeth/gingiva Overall: benign lips 01/10/2018 None Full Exam - General 1994 Ears/Nose/Throat oral cavity/pharynx/larynx Overall: oral mucosa clear 01/10/2018 None Full Exam - General 1994 Respiratory auscultation Overall: breath sounds clear bilaterally 01/10/2018 None Full Exam - General 1994 Respiratory respiratory effort/rhythm Overall: no retractions 01/10/2018 None Full Exam - General 1994 Respiratory respiratory effort/rhythm Overall: normal rate 01/10/2018 None Full Exam - General 1994 Cardiovascular auscultation of heart Overall: regular rate 01/10/2018 None Full Exam - General 1994 Cardiovascular auscultation of heart Overall: normal heart sounds 01/10/2018 None Full Exam - General 1994 Abdomen abdominal exam Overall: normal bowel sounds 01/10/2018 None Full Exam - General 1994 Musculoskeletal gait and station Overall: normal gait 01/10/2018 None Full Exam - General 1994 Musculoskeletal gait and station Overall: normal station 01/10/2018 None Full Exam - General 1994 Musculoskeletal head and neck Overall: head atraumatic 01/10/2018 None Full Exam - General 1994 Neurologic cranial nerves Overall: crainial nerves 2 - 12 grossly intact 01/10/2018 None Full Exam - General 1994 Psychiatric orientation/consciousness Overall: oriented to person, place and time 01/10/2018 None Full Exam - General 1994 Psychiatric mood and affect Overall: normal mood and affect 01/10/2018 None Full Exam - General 1994 Psychiatric appearance Overall: well-groomed, good eye contact 01/10/2018 None Full Exam - General 1994 Respiratory auscultation Diffuse: diminished 01/10/2018 None Full Exam - General 1994 Constitutional general appearance Overall: in no acute distress 12/06/2017 None Full Exam - General 1994 Constitutional general appearance Overall: well nourished 12/06/2017 None Full Exam - General 1994 Eyes conjunctiva /eyelids Overall: conjunctiva clear 12/06/2017 None Full Exam - General 1994 Eyes conjunctiva /eyelids Overall: cornea clear 12/06/2017 None Full Exam - General 1994 Eyes conjunctiva /eyelids Overall: eyelids normal 12/06/2017 None Full Exam - General 1994 Eyes pupils and irises Overall: pupils equal, round, reactive to light and accomodation 12/06/2017 None Full Exam - General 1994 Ears/Nose/Throat otoscopic exam Overall: external auditory canals clear 12/06/2017 None Full Exam - General 1994 Ears/Nose/Throat otoscopic exam Overall: tympanic membranes clear 12/06/2017 None Full Exam - General 1994 Ears/Nose/Throat lips/teeth/gingiva Overall: benign lips 12/06/2017 None Full Exam - General 1994 Ears/Nose/Throat oral cavity/pharynx/larynx Overall: oral mucosa clear 12/06/2017 None Full Exam - General 1994 Respiratory auscultation Overall: breath sounds clear bilaterally 12/06/2017 None Full Exam - General 1994 Respiratory respiratory effort/rhythm Overall: no retractions 12/06/2017 None Full Exam - General 1994 Respiratory respiratory effort/rhythm Overall: normal rate 12/06/2017 None Full Exam - General 1994 Cardiovascular auscultation of heart Overall: regular rate 12/06/2017 None Full Exam - General 1994 Cardiovascular auscultation of heart Overall: normal heart sounds 12/06/2017 None Full Exam - General 1994 Abdomen abdominal exam Overall: no tenderness 12/06/2017 None Full Exam - General 1994 Abdomen abdominal exam Overall: normal bowel sounds 12/06/2017 None Full Exam - General 1994 Musculoskeletal gait and station Overall: normal gait 12/06/2017 None Full Exam - General 1994 Musculoskeletal gait and station Overall: normal station 12/06/2017 None Full Exam - General 1994 Neurologic cranial nerves Overall: crainial nerves 2 - 12 grossly intact 12/06/2017 None Full Exam - General 1994 Neurologic motor Overall: normal bulk, tone 12/06/2017 None Full Exam - General 1994 Psychiatric orientation/consciousness Overall: oriented to person, place and time 12/06/2017 None Full Exam - General 1994 Psychiatric mood and affect Overall: normal mood and affect 12/06/2017 None Full Exam - General 1994 Psychiatric appearance Overall: well-groomed, good eye contact 12/06/2017 None Full Exam - General 1994 Constitutional general appearance Overall: well developed 12/06/2017 None Full Exam - General 1994 Musculoskeletal head and neck Overall: head atraumatic 12/06/2017 None Full Exam - General 1994 Constitutional general appearance Overall: well developed 06/22/2017 None Full Exam - General 1994 Constitutional general appearance Overall: in no acute distress 06/22/2017 None Full Exam - General 1994 Constitutional general appearance Overall: well nourished 06/22/2017 None Full Exam - General 1994 Eyes conjunctiva /eyelids Overall: conjunctiva clear 06/22/2017 None Full Exam - General 1994 Eyes conjunctiva /eyelids Overall: eyelids normal 06/22/2017 None Full Exam - General 1994 Ears/Nose/Throat otoscopic exam Overall: external auditory canals clear 06/22/2017 None Full Exam - General 1994 Ears/Nose/Throat otoscopic exam Tympanic membrane: air- fluid level 06/22/2017 None Full Exam - General 1994 Ears/Nose/Throat lips/teeth/gingiva Overall: benign lips 06/22/2017 None Full Exam - General 1994 Ears/Nose/Throat oral cavity/pharynx/larynx Overall: oral mucosa clear 06/22/2017 None Full Exam - General 1994 Ears/Nose/Throat oral cavity/pharynx/larynx Posterior Pharynx: clear post nasal drainage 06/22/2017 None Full Exam - General 1994 Ears/Nose/Throat oral cavity/pharynx/larynx Oropharynx: erythema 06/22/2017 None Full Exam - General 1994 Respiratory auscultation Overall: breath sounds clear bilaterally 06/22/2017 None Full Exam - General 1994 Respiratory respiratory effort/rhythm Overall: no retractions 06/22/2017 None Full Exam - General 1994 Respiratory respiratory effort/rhythm Overall: normal rate 06/22/2017 None Full Exam - General 1994 Cardiovascular auscultation of heart Overall: regular rate 06/22/2017 None Full Exam - General 1994 Cardiovascular auscultation of heart Overall: normal heart sounds 06/22/2017 None Full Exam - General 1994 Lymphatic neck nodes Overall: anterior cervical chain benign 06/22/2017 None Full Exam - General 1994 Lymphatic neck nodes Overall: posterior cervical chain benign 06/22/2017 None Full Exam - General 1994 Musculoskeletal gait and station Overall: normal gait 06/22/2017 None Full Exam - General 1994 Musculoskeletal gait and station Overall: normal station 06/22/2017 None Full Exam - General 1994 Musculoskeletal head and neck Overall: head atraumatic 06/22/2017 None Full Exam - General 1994 Neurologic cranial nerves Overall: crainial nerves 2 - 12 grossly intact 06/22/2017 None Full Exam - General 1994 Psychiatric orientation/consciousness Overall: oriented to person, place and time 06/22/2017 None Full Exam - General 1994 Psychiatric mood and affect Overall: normal mood and affect 06/22/2017 None Full Exam - General 1994 Psychiatric appearance Overall: well-groomed, good eye contact 06/22/2017 None Full Exam - General 1994 Constitutional general appearance Overall: well developed 03/02/2017 None Full Exam - General 1994 Constitutional general appearance Overall: in no acute distress 03/02/2017 None Full Exam - General 1994 Constitutional general appearance Overall: well nourished 03/02/2017 None Full Exam - General 1994 Eyes conjunctiva /eyelids Overall: conjunctiva clear 03/02/2017 None Full Exam - General 1994 Eyes conjunctiva /eyelids Overall: eyelids normal 03/02/2017 None Full Exam - General 1994 Ears/Nose/Throat lips/teeth/gingiva Overall: benign lips 03/02/2017 None Full Exam - General 1994 Ears/Nose/Throat oral cavity/pharynx/larynx Overall: oral mucosa clear 03/02/2017 None Full Exam - General 1994 Respiratory auscultation Overall: breath sounds clear bilaterally 03/02/2017 None Full Exam - General 1994 Respiratory respiratory effort/rhythm Overall: no retractions 03/02/2017 None Full Exam - General 1994 Respiratory respiratory effort/rhythm Overall: normal rate 03/02/2017 None Full Exam - General 1994 Cardiovascular auscultation of heart Overall: regular rate 03/02/2017 None Full Exam - General 1994 Cardiovascular auscultation of heart Overall: normal heart sounds 03/02/2017 None Full Exam - General 1994 Musculoskeletal gait and station Overall: normal gait 03/02/2017 None Full Exam - General 1994 Musculoskeletal gait and station Overall: normal station 03/02/2017 None Full Exam - General 1994 Musculoskeletal head and neck Overall: head atraumatic 03/02/2017 None Full Exam - General 1994 Neurologic cranial nerves Overall: crainial nerves 2 - 12 grossly intact 03/02/2017 None Full Exam - General 1994 Psychiatric orientation/consciousness Overall: oriented to person, place and time 03/02/2017 None Full Exam - General 1994 Psychiatric mood and affect Overall: normal mood and affect 03/02/2017 None Full Exam - General 1994 Psychiatric appearance Overall: well-groomed, good eye contact 03/02/2017 None Full Exam - General 1994 Ears/Nose/Throat otoscopic exam Overall: external auditory canals clear 03/02/2017 None Full Exam - General 1994 Ears/Nose/Throat otoscopic exam Tympanic membrane: air- fluid level 03/02/2017 None Full Exam - General 1994 Ears/Nose/Throat oral cavity/pharynx/larynx Posterior Pharynx: clear post nasal drainage 03/02/2017 None Full Exam - General 1994 Ears/Nose/Throat oral cavity/pharynx/larynx Oropharynx: erythema 03/02/2017 None Full Exam - General 1994 Lymphatic neck nodes Overall: posterior cervical chain benign 03/02/2017 None Full Exam - General 1994 Lymphatic neck nodes Overall: anterior cervical chain benign 03/02/2017 None Full Exam - General 1994 Constitutional general appearance Overall: well developed 01/24/2017 None Full Exam - General 1994 Constitutional general appearance Overall: in no acute distress 01/24/2017 None Full Exam - General 1994 Constitutional general appearance Overall: well nourished 01/24/2017 None Full Exam - General 1994 Eyes conjunctiva /eyelids Overall: conjunctiva clear 01/24/2017 None Full Exam - General 1994 Eyes conjunctiva /eyelids Overall: eyelids normal 01/24/2017 None Full Exam - General 1994 Ears/Nose/Throat lips/teeth/gingiva Overall: benign lips 01/24/2017 None Full Exam - General 1994 Ears/Nose/Throat oral cavity/pharynx/larynx Overall: oral mucosa clear 01/24/2017 None Full Exam - General 1994 Respiratory respiratory effort/rhythm Overall: no retractions 01/24/2017 None Full Exam - General 1994 Respiratory respiratory effort/rhythm Overall: normal rate 01/24/2017 None Full Exam - General 1994 Respiratory auscultation Overall: breath sounds clear bilaterally 01/24/2017 None Full Exam - General 1994 Cardiovascular auscultation of heart Overall: regular rate 01/24/2017 None Full Exam - General 1994 Cardiovascular auscultation of heart Overall: normal heart sounds 01/24/2017 None Full Exam - General 1994 Musculoskeletal head and neck Overall: head atraumatic 01/24/2017 None Full Exam - General 1994 Musculoskeletal gait and station Overall: normal gait 01/24/2017 None Full Exam - General 1994 Musculoskeletal gait and station Overall: normal station 01/24/2017 None Full Exam - General 1994 Neurologic cranial nerves Overall: crainial nerves 2 - 12 grossly intact 01/24/2017 None Full Exam - General 1994 Psychiatric orientation/consciousness Overall: oriented to person, place and time 01/24/2017 None Full Exam - General 1994 Psychiatric mood and affect Overall: normal mood and affect 01/24/2017 None Full Exam - General 1994 Psychiatric appearance Overall: well-groomed, good eye contact 01/24/2017 None Full Exam - ENT Constitutional general appearance Overall: well nourished 10/13/2016 None Full Exam - ENT Constitutional general appearance Overall: well developed 10/13/2016 None Full Exam - ENT Constitutional general appearance Overall: in no acute distress 10/13/2016 None Full Exam - ENT Ears/Nose/Throat otoscopic exam Overall: external auditory canals normal 10/13/2016 None Full Exam - ENT Ears/Nose/Throat otoscopic exam Overall: tympanic membranes normal 10/13/2016 None Full Exam - ENT Ears/Nose/Throat lips/ teeth/gingiva Overall: benign lips 10/13/2016 None Full Exam - ENT Ears/Nose/Throat oropharynx Overall: oral mucosa clear 10/13/2016 None Full Exam - ENT Ears/Nose/Throat oropharynx Oropharynx: erythema 10/13/2016 None Full Exam - ENT Face and Head palpation Left maxillary sinus: tender 10/13/2016 None Full Exam - ENT Face and Head palpation Right maxillary sinus: tender 10/13/2016 None Full Exam - ENT Respiratory auscultation Diffuse: diminished None Full Exam - ENT Respiratory inspection Overall: no retractions 10/13/2016 None Full Exam - ENT Respiratory inspection Overall: normal rate None Full Exam - ENT Cardiovascular auscultation of heart Overall: regular rate 10/13/2016 None Full Exam - ENT Cardiovascular auscultation of heart Overall: normal heart sounds 10/13/2016 None Full Exam - ENT Lymphatic palpation of lymph nodes Overall: anterior cervical chain benign 10/13/2016 None Full Exam - ENT Lymphatic palpation of lymph nodes Overall: posterior cervical chain benign 10/13/2016 None Full Exam - ENT Neurologic mood and affect Overall: normal mood 10/13/2016 None Full Exam - ENT Neurologic mood and affect Overall: normal affect 10/13/2016 None Full Exam - ENT Neurologic orientation Overall: oriented to person, place and time 10/13/2016 None Full Exam - General 1994 Constitutional general appearance Development: well developed 08/30/2016 None Full Exam - General 1994 Constitutional general appearance Development: appears stated age 0308/30/2016 None Full Exam - General 1994 Eyes pupils and irises Overall: pupils equal, round, reactive to light and accomodation 08/30/2016 None Full Exam - General 1994 Eyes conjunctiva /eyelids Overall: conjunctiva clear 08/30/2016 None Full Exam - General 1994 Eyes conjunctiva /eyelids Overall: cornea clear 08/30/2016 None Full Exam - General 1994 Eyes conjunctiva /eyelids Overall: eyelids normal 08/30/2016 None Full Exam - General 1994 Ears/Nose/Throat otoscopic exam Overall: external auditory canals clear 08/30/2016 None Full Exam - General 1994 Ears/Nose/Throat otoscopic exam Overall: tympanic membranes clear 08/30/2016 None Full Exam - General 1994 Ears/Nose/Throat lips/teeth/gingiva Overall: benign lips 08/30/2016 None Full Exam - General 1994 Ears/Nose/Throat lips/teeth/gingiva Overall: normal dentition 08/30/2016 None Full Exam - General 1994 Ears/Nose/Throat oral cavity/pharynx/larynx Overall: oral mucosa clear 08/30/2016 None Full Exam - General 1994 Neck thyroid Overall: normal size 11/2016 None Full Exam - General 1994 Neck thyroid Overall: normal consistency 08/30/2016 None Full Exam - General 1994 Neck thyroid Overall: nontender 2016 None Full Exam - General 1994 Neck inspection of neck Overall: normal size 08/30/2016 None Full Exam - General 1994 Neck inspection of neck Overall: normal appearance 08/30/2016 None Full Exam - General 1994 Respiratory auscultation Overall: breath sounds clear bilaterally 08/30/2016 None Full Exam - General 1994 Respiratory respiratory effort/rhythm Overall: no retractions 08/30/2016 None Full Exam - General 1994 Respiratory respiratory effort/rhythm Overall: normal rate 08/30/2016 None Full Exam - General 1994 Cardiovascular auscultation of heart Overall: regular rate 08/30/2016 None Full Exam - General 1994 Cardiovascular auscultation of heart Overall: normal heart sounds 08/30/2016 None Full Exam - General 1994 Cardiovascular auscultation of heart Overall: no murmurs 08/30/2016 None Full Exam - General 1994 Abdomen abdominal exam Overall: no tenderness 08/30/2016 None Full Exam - General 1994 Abdomen abdominal exam Overall: normal bowel sounds 08/30/2016 None Full Exam - General 1994 Neurologic motor Overall: normal bulk, tone 08/30/2016 None Full Exam - General 1994 Psychiatric orientation/consciousness Overall: oriented to person, place and time 08/30/2016 None Full Exam - General 1994 Psychiatric speech Overall: normal quality, no aphasia 08/30/2016 None Full Exam - General 1994 Psychiatric judgment/insight Overall: judgment and insight intact 08/30/2016 None Full Exam - General 1994 Constitutional general appearance Overall: in no acute distress 08/30/2016 None Full Exam - General 1994 Constitutional general appearance Overall: well nourished 08/30/2016 None Full Exam - General 1994 Neurologic cranial nerves Overall: crainial nerves 2 - 12 grossly intact 08/30/2016 None Full Exam - General 1994 Psychiatric mood and affect Overall: normal mood and affect 08/30/2016 None Full Exam - General 1994 Psychiatric appearance Overall: well-groomed, good eye contact 08/30/2016 None Full Exam - General 1994 Musculoskeletal gait and station Overall: normal gait 08/30/2016 None Full Exam - General 1994 Musculoskeletal gait and station Overall: normal station 08/30/2016 None Full Exam - General 1994 Constitutional general appearance Overall: well developed 07/02/2016 None Full Exam - General 1994 Constitutional general appearance Overall: in no acute distress 07/02/2016 None Full Exam - General 1994 Constitutional general appearance Overall: well nourished 07/02/2016 None Full Exam - General 1994 Eyes conjunctiva /eyelids Overall: conjunctiva clear 07/02/2016 None Full Exam - General 1994 Eyes conjunctiva /eyelids Overall: eyelids normal 07/02/2016 None Full Exam - General 1994 Ears/Nose/Throat lips/teeth/gingiva Overall: benign lips 07/02/2016 None Full Exam - General 1994 Ears/Nose/Throat oral cavity/pharynx/larynx Overall: oral mucosa clear 07/02/2016 None Full Exam - General 1994 Respiratory respiratory effort/rhythm Overall: no retractions 07/02/2016 None Full Exam - General 1994 Respiratory respiratory effort/rhythm Overall: normal rate 07/02/2016 None Full Exam - General 1994 Neurologic cranial nerves Overall: crainial nerves 2 - 12 grossly intact 07/02/2016 None Full Exam - General 1994 Psychiatric orientation/consciousness Overall: oriented to person, place and time 07/02/2016 None Full Exam - General 1994 Psychiatric mood and affect Overall: normal mood and affect 07/02/2016 None Full Exam - General 1994 Psychiatric appearance Overall: well-groomed, good eye contact 07/02/2016 None Full Exam - General 1994 Musculoskeletal spine, ribs and pelvis Spine: tender @ thoracic spine 07/02/2016 None Full Exam - General 1994 Integument inspection of skin Location: shoulder 07/02/2016 left posterior - erythematous patch Full Exam - General 1994 Constitutional general appearance Overall: well developed 06/24/2016 None Full Exam - General 1994 Constitutional general appearance Overall: in no acute distress 06/24/2016 None Full Exam - General 1994 Constitutional general appearance Overall: well nourished 06/24/2016 None Full Exam - General 1994 Eyes conjunctiva /eyelids Overall: conjunctiva clear 06/24/2016 None Full Exam - General 1994 Eyes conjunctiva /eyelids Overall: eyelids normal 06/24/2016 None Full Exam - General 1994 Ears/Nose/Throat lips/teeth/gingiva Overall: benign lips 06/24/2016 None Full Exam - General 1994 Ears/Nose/Throat oral cavity/pharynx/larynx Overall: oral mucosa clear 06/24/2016 None Full Exam - General 1994 Respiratory auscultation Overall: breath sounds clear bilaterally 06/24/2016 None Full Exam - General 1994 Respiratory respiratory effort/rhythm Overall: no retractions 06/24/2016 None Full Exam - General 1994 Respiratory respiratory effort/rhythm Overall: normal rate 06/24/2016 None Full Exam - General 1994 Cardiovascular auscultation of heart Overall: regular rate 06/24/2016 None Full Exam - General 1994 Cardiovascular auscultation of heart Overall: normal heart sounds 06/24/2016 None Full Exam - General 1994 Neurologic cranial nerves Overall: crainial nerves 2 - 12 grossly intact 06/24/2016 None Full Exam - General 1994 Psychiatric orientation/consciousness Overall: oriented to person, place and time 06/24/2016 None Full Exam - General 1994 Psychiatric mood and affect Overall: normal mood and affect 06/24/2016 None Full Exam - General 1994 Psychiatric appearance Overall: well-groomed, good eye contact 06/24/2016 None Full Exam - General 1994 Constitutional general appearance Overall: well developed 05/04/2016 None Full Exam - General 1994 Constitutional general appearance Overall: in no acute distress 05/04/2016 None Full Exam - General 1994 Constitutional general appearance Overall: well nourished 05/04/2016 None Full Exam - General 1994 Eyes conjunctiva /eyelids Overall: conjunctiva clear 05/04/2016 None Full Exam - General 1994 Eyes pupils and irises Overall: pupils equal, round, reactive to light and accomodation 05/04/2016 None Full Exam - General 1994 Ears/Nose/Throat lips/teeth/gingiva Overall: benign lips 05/04/2016 None Full Exam - General 1994 Respiratory auscultation Overall: breath sounds clear bilaterally 05/04/2016 None Full Exam - General 1994 Respiratory respiratory effort/rhythm Overall: no retractions 05/04/2016 None Full Exam - General 1994 Respiratory respiratory effort/rhythm Overall: normal rate 05/04/2016 None Full Exam - General 1994 Cardiovascular auscultation of heart Overall: regular rate 05/04/2016 None Full Exam - General 1994 Cardiovascular auscultation of heart Overall: normal heart sounds 05/04/2016 None Full Exam - General 1994 Abdomen abdominal exam Overall: no tenderness 05/04/2016 None Full Exam - General 1994 Abdomen abdominal exam Overall: normal bowel sounds 05/04/2016 None Full Exam - General 1994 Musculoskeletal lower extremity Inspection - foot: swelling 05/04/2016 None Full Exam - General 1994 Musculoskeletal lower extremity Palpation - foot: tender 05/04/2016 None Full Exam - General 1994 Musculoskeletal lower extremity ROM - foot: pain with ROM 05/04/2016 None Full Exam - General 1994 Musculoskeletal gait and station Overall: normal station 05/04/2016 None Full Exam - General 1994 Neurologic cranial nerves Overall: crainial nerves 2 - 12 grossly intact 05/04/2016 None Full Exam - General 1994 Psychiatric orientation/consciousness Overall: oriented to person, place and time 05/04/2016 None Full Exam - General 1994 Constitutional general appearance Overall: well developed 04/06/2016 None Full Exam - General 1994 Constitutional general appearance Overall: in no acute distress 04/06/2016 None Full Exam - General 1994 Constitutional general appearance Overall: well nourished 04/06/2016 None Full Exam - General 1994 Eyes conjunctiva /eyelids Overall: conjunctiva clear 04/06/2016 None Full Exam - General 1994 Eyes pupils and irises Overall: pupils equal, round, reactive to light and accomodation 04/06/2016 None Full Exam - General 1994 Ears/Nose/Throat lips/teeth/gingiva Overall: benign lips 04/06/2016 None Full Exam - General 1994 Respiratory auscultation Overall: breath sounds clear bilaterally 04/06/2016 None Full Exam - General 1994 Respiratory respiratory effort/rhythm Overall: no retractions 04/06/2016 None Full Exam - General 1994 Respiratory respiratory effort/rhythm Overall: normal rate 04/06/2016 None Full Exam - General 1994 Cardiovascular auscultation of heart Overall: regular rate 04/06/2016 None Full Exam - General 1994 Cardiovascular auscultation of heart Overall: normal heart sounds 04/06/2016 None Full Exam - General 1994 Abdomen abdominal exam Overall: no tenderness 04/06/2016 None Full Exam - General 1994 Abdomen abdominal exam Overall: normal bowel sounds 04/06/2016 None Full Exam - General 1994 Musculoskeletal lower extremity Inspection - foot: swelling 04/06/2016 None Full Exam - General 1994 Musculoskeletal lower extremity Palpation - foot: tender 04/06/2016 None Full Exam - General 1994 Musculoskeletal lower extremity ROM - foot: pain with ROM 04/06/2016 None Full Exam - General 1994 Musculoskeletal gait and station Overall: normal station 04/06/2016 None Full Exam - General 1994 Neurologic cranial nerves Overall: crainial nerves 2 - 12 grossly intact 04/06/2016 None Full Exam - General 1994 Psychiatric orientation/consciousness Overall: oriented to person, place and time 04/06/2016 None Full Exam - General 1994 Constitutional general appearance Overall: well developed 03/18/2016 None Full Exam - General 1994 Constitutional general appearance Overall: in no acute distress 03/18/2016 None Full Exam - General 1994 Constitutional general appearance Overall: well nourished 03/18/2016 None Full Exam - General 1994 Eyes conjunctiva /eyelids Overall: conjunctiva clear 03/18/2016 None Full Exam - General 1994 Eyes pupils and irises Overall: pupils equal, round, reactive to light and accomodation 03/18/2016 None Full Exam - General 1994 Ears/Nose/Throat lips/teeth/gingiva Overall: benign lips 03/18/2016 None Full Exam - General 1994 Respiratory auscultation Overall: breath sounds clear bilaterally 03/18/2016 None Full Exam - General 1994 Respiratory respiratory effort/rhythm Overall: no retractions 03/18/2016 None Full Exam - General 1994 Respiratory respiratory effort/rhythm Overall: normal rate 03/18/2016 None Full Exam - General 1994 Cardiovascular auscultation of heart Overall: regular rate 03/18/2016 None Full Exam - General 1994 Cardiovascular auscultation of heart Overall: normal heart sounds 03/18/2016 None Full Exam - General 1994 Abdomen abdominal exam Overall: no tenderness 03/18/2016 None Full Exam - General 1994 Abdomen abdominal exam Overall: normal bowel sounds 03/18/2016 None Full Exam - General 1994 Musculoskeletal gait and station Overall: normal station 03/18/2016 None Full Exam - General 1994 Integument inspection of skin Overall: few scattered moles, no gross abnormalities 03/18/2016 None Full Exam - General 1994 Neurologic cranial nerves Overall: crainial nerves 2 - 12 grossly intact 03/18/2016 None Full Exam - General 1994 Psychiatric orientation/consciousness Overall: oriented to person, place and time 03/18/2016 None Full Exam - General 1994 Constitutional general appearance Overall: well developed 03/11/2016 None Full Exam - General 1994 Constitutional general appearance Overall: in no acute distress 03/11/2016 None Full Exam - General 1994 Constitutional general appearance Overall: well nourished 03/11/2016 None Full Exam - General 1994 Eyes conjunctiva /eyelids Overall: conjunctiva clear 03/11/2016 None Full Exam - General 1994 Eyes pupils and irises Overall: pupils equal, round, reactive to light and accomodation 03/11/2016 None Full Exam - General 1994 Ears/Nose/Throat lips/teeth/gingiva Overall: benign lips 03/11/2016 None Full Exam - General 1994 Respiratory auscultation Overall: breath sounds clear bilaterally 03/11/2016 None Full Exam - General 1994 Respiratory respiratory effort/rhythm Overall: no retractions 03/11/2016 None Full Exam - General 1994 Respiratory respiratory effort/rhythm Overall: normal rate 03/11/2016 None Full Exam - General 1994 Cardiovascular auscultation of heart Overall: regular rate 03/11/2016 None Full Exam - General 1994 Cardiovascular auscultation of heart Overall: normal heart sounds 03/11/2016 None Full Exam - General 1994 Abdomen abdominal exam Overall: no tenderness 03/11/2016 None Full Exam - General 1994 Abdomen abdominal exam Overall: normal bowel sounds 03/11/2016 None Full Exam - General 1994 Musculoskeletal gait and station Overall: normal station 03/11/2016 None Full Exam - General 1994 Integument inspection of skin Overall: few scattered moles, no gross abnormalities 03/11/2016 None Full Exam - General 1994 Neurologic cranial nerves Overall: crainial nerves 2 - 12 grossly intact 03/11/2016 None Full Exam - General 1994 Psychiatric orientation/consciousness Overall: oriented to person, place and time 03/11/2016 None Full Exam - General 1994 Musculoskeletal lower extremity Inspection - foot: swelling 03/11/2016 None Full Exam - General 1994 Musculoskeletal lower extremity Palpation - foot: tender 03/11/2016 None Full Exam - General 1994 Musculoskeletal lower extremity ROM - foot: pain with ROM 03/11/2016 None Full Exam - General 1994 Constitutional general appearance Overall: well developed 02/24/2016 None Full Exam - General 1994 Constitutional general appearance Overall: in no acute distress 02/24/2016 None Full Exam - General 1994 Constitutional general appearance Overall: well nourished 02/24/2016 None Full Exam - General 1994 Eyes conjunctiva /eyelids Overall: conjunctiva clear 02/24/2016 None Full Exam - General 1994 Eyes pupils and irises Overall: pupils equal, round, reactive to light and accomodation 02/24/2016 None Full Exam - General 1994 Ears/Nose/Throat lips/teeth/gingiva Overall: benign lips 02/24/2016 None Full Exam - General 1994 Respiratory auscultation Overall: breath sounds clear bilaterally 02/24/2016 None Full Exam - General 1994 Respiratory respiratory effort/rhythm Overall: no retractions 02/24/2016 None Full Exam - General 1994 Respiratory respiratory effort/rhythm Overall: normal rate 02/24/2016 None Full Exam - General 1994 Cardiovascular extremities Cyanosis present: fingers 02/24/2016 None Full Exam - General 1994 Cardiovascular auscultation of heart Overall: regular rate 02/24/2016 None Full Exam - General 1994 Cardiovascular auscultation of heart Overall: normal heart sounds 02/24/2016 None Full Exam - General 1994 Abdomen abdominal exam Overall: no tenderness 02/24/2016 None Full Exam - General 1994 Abdomen abdominal exam Overall: normal bowel sounds 02/24/2016 None Full Exam - General 1994 Musculoskeletal gait and station Overall: normal station 02/24/2016 None Full Exam - General 1994 Integument inspection of skin Overall: few scattered moles, no gross abnormalities 02/24/2016 None Full Exam - General 1994 Neurologic cranial nerves Overall: crainial nerves 2 - 12 grossly intact 02/24/2016 None Full Exam - General 1994 Psychiatric orientation/consciousness Overall: oriented to person, place and time 02/24/2016 None Full Exam - General 1994 Constitutional general appearance Overall: well developed 12/16/2015 None Full Exam - General 1994 Constitutional general appearance Overall: in no acute distress 12/16/2015 None Full Exam - General 1994 Constitutional general appearance Overall: well nourished 12/16/2015 None Full Exam - General 1994 Eyes conjunctiva /eyelids Overall: conjunctiva clear 12/16/2015 None Full Exam - General 1994 Eyes pupils and irises Overall: pupils equal, round, reactive to light and accomodation 12/16/2015 None Full Exam - General 1994 Ears/Nose/Throat lips/teeth/gingiva Overall: benign lips 12/16/2015 None Full Exam - General 1994 Respiratory auscultation Overall: breath sounds clear bilaterally 12/16/2015 None Full Exam - General 1994 Respiratory auscultation Lower lung field: diminished 12/16/2015 None Full Exam - General 1994 Respiratory respiratory effort/rhythm Overall: no retractions 12/16/2015 None Full Exam - General 1994 Respiratory respiratory effort/rhythm Overall: normal rate 12/16/2015 None Full Exam - General 1994 Cardiovascular extremities Cyanosis present: fingers 12/16/2015 None Full Exam - General 1994 Cardiovascular auscultation of heart Overall: regular rate 12/16/2015 None Full Exam - General 1994 Cardiovascular auscultation of heart Overall: normal heart sounds 12/16/2015 None Full Exam - General 1994 Abdomen abdominal exam Overall: no tenderness 12/16/2015 None Full Exam - General 1994 Abdomen abdominal exam Overall: normal bowel sounds 12/16/2015 None Full Exam - General 1994 Musculoskeletal gait and station Overall: normal station 12/16/2015 None Full Exam - General 1994 Musculoskeletal gait and station Gait: abnormal swing through 12/16/2015 - somewhat waddling gait - per pt due to pain Full Exam - General 1994 Integument inspection of skin Overall: few scattered moles, no gross abnormalities 12/16/2015 None Full Exam - General 1994 Neurologic cranial nerves Overall: crainial nerves 2 - 12 grossly intact 12/16/2015 None Full Exam - General 1994 Psychiatric orientation/consciousness Overall: oriented to person, place and time 12/16/2015 None Full Exam - General 1994 Constitutional general appearance Overall: well developed 10/30/2015 None Full Exam - General 1994 Constitutional general appearance Overall: in no acute distress 10/30/2015 None Full Exam - General 1994 Constitutional general appearance Overall: well nourished 10/30/2015 None Full Exam - General 1994 Eyes conjunctiva /eyelids Overall: conjunctiva clear 10/30/2015 None Full Exam - General 1994 Eyes pupils and irises Overall: pupils equal, round, reactive to light and accomodation 10/30/2015 None Full Exam - General 1994 Ears/Nose/Throat lips/teeth/gingiva Overall: benign lips 10/30/2015 None Full Exam - General 1994 Respiratory auscultation Overall: breath sounds clear bilaterally 10/30/2015 None Full Exam - General 1994 Respiratory auscultation Lower lung field: diminished 10/30/2015 None Full Exam - General 1994 Respiratory respiratory effort/rhythm Overall: no retractions 10/30/2015 None Full Exam - General 1994 Respiratory respiratory effort/rhythm Overall: normal rate 10/30/2015 None Full Exam - General 1994 Cardiovascular extremities Cyanosis present: fingers 10/30/2015 None Full Exam - General 1994 Cardiovascular auscultation of heart Overall: regular rate 10/30/2015 None Full Exam - General 1994 Cardiovascular auscultation of heart Overall: normal heart sounds 10/30/2015 None Full Exam - General 1994 Abdomen abdominal exam Overall: no tenderness 10/30/2015 None Full Exam - General 1994 Abdomen abdominal exam Overall: normal bowel sounds 10/30/2015 None Full Exam - General 1994 Musculoskeletal gait and station Overall: normal station 10/30/2015 None Full Exam - General 1994 Musculoskeletal gait and station Gait: abnormal swing through 10/30/2015 - somewhat waddling gait - per pt due to pain Full Exam - General 1994 Integument inspection of skin Overall: few scattered moles, no gross abnormalities 10/30/2015 None Full Exam - General 1994 Neurologic cranial nerves Overall: crainial nerves 2 - 12 grossly intact 10/30/2015 None Full Exam - General 1994 Psychiatric orientation/consciousness Overall: oriented to person, place and time 10/30/2015 None Full Exam - General 1994 Constitutional general appearance Overall: well developed 09/23/2015 None Full Exam - General 1994 Constitutional general appearance Overall: in no acute distress 09/23/2015 None Full Exam - General 1994 Constitutional general appearance Overall: well nourished 09/23/2015 None Full Exam - General 1994 Eyes conjunctiva /eyelids Overall: conjunctiva clear 09/23/2015 None Full Exam - General 1994 Eyes pupils and irises Overall: pupils equal, round, reactive to light and accomodation 09/23/2015 None Full Exam - General 1994 Ears/Nose/Throat lips/teeth/gingiva Overall: benign lips 09/23/2015 None Full Exam - General 1994 Respiratory auscultation Overall: breath sounds clear bilaterally 09/23/2015 None Full Exam - General 1994 Respiratory auscultation Lower lung field: diminished 09/23/2015 None Full Exam - General 1994 Respiratory respiratory effort/rhythm Overall: no retractions 09/23/2015 None Full Exam - General 1994 Respiratory respiratory effort/rhythm Overall: normal rate 09/23/2015 None Full Exam - General 1994 Cardiovascular extremities Cyanosis present: fingers 09/23/2015 None Full Exam - General 1994 Cardiovascular auscultation of heart Overall: regular rate 09/23/2015 None Full Exam - General 1994 Cardiovascular auscultation of heart Overall: normal heart sounds 09/23/2015 None Full Exam - General 1994 Abdomen abdominal exam Overall: no tenderness 09/23/2015 None Full Exam - General 1994 Abdomen abdominal exam Overall: normal bowel sounds 09/23/2015 None Full Exam - General 1994 Musculoskeletal gait and station Overall: normal station 09/23/2015 None Full Exam - General 1994 Musculoskeletal gait and station Gait: abnormal swing through 09/23/2015 - somewhat waddling gait - per pt due to pain Full Exam - General 1994 Integument inspection of skin Overall: few scattered moles, no gross abnormalities 09/23/2015 None Full Exam - General 1994 Neurologic cranial nerves Overall: crainial nerves 2 - 12 grossly intact 09/23/2015 None Full Exam - General 1994 Psychiatric orientation/consciousness Overall: oriented to person, place and time 09/23/2015 None Full Exam - General 1994 Constitutional general appearance Overall: well developed 09/10/2015 None Full Exam - General 1994 Constitutional general appearance Overall: in no acute distress 09/10/2015 None Full Exam - General 1994 Constitutional general appearance Overall: well nourished 09/10/2015 None Full Exam - General 1994 Eyes conjunctiva /eyelids Overall: conjunctiva clear 09/10/2015 None Full Exam - General 1994 Eyes pupils and irises Overall: pupils equal, round, reactive to light and accomodation 09/10/2015 None Full Exam - General 1994 Ears/Nose/Throat lips/teeth/gingiva Overall: benign lips 09/10/2015 None Full Exam - General 1994 Respiratory auscultation Overall: breath sounds clear bilaterally 09/10/2015 None Full Exam - General 1994 Respiratory auscultation Lower lung field: diminished 09/10/2015 None Full Exam - General 1994 Respiratory respiratory effort/rhythm Overall: no retractions 09/10/2015 None Full Exam - General 1994 Respiratory respiratory effort/rhythm Overall: normal rate 09/10/2015 None Full Exam - General 1994 Cardiovascular extremities Cyanosis present: fingers 09/10/2015 None Full Exam - General 1994 Cardiovascular auscultation of heart Overall: regular rate 09/10/2015 None Full Exam - General 1994 Cardiovascular auscultation of heart Overall: normal heart sounds 09/10/2015 None Full Exam - General 1994 Abdomen abdominal exam Overall: no tenderness 09/10/2015 None Full Exam - General 1994 Abdomen abdominal exam Overall: normal bowel sounds 09/10/2015 None Full Exam - General 1994 Musculoskeletal gait and station Overall: normal station 09/10/2015 None Full Exam - General 1994 Musculoskeletal gait and station Gait: abnormal swing through 09/10/2015 - somewhat waddling gait - per pt due to pain Full Exam - General 1994 Integument inspection of skin Overall: few scattered moles, no gross abnormalities 09/10/2015 None Full Exam - General 1994 Neurologic cranial nerves Overall: crainial nerves 2 - 12 grossly intact 09/10/2015 None Full Exam - General 1994 Psychiatric orientation/consciousness Overall: oriented to person, place and time 09/10/2015 None Full Exam - General 1994 Constitutional general appearance Development: appears stated age 0208/12/2015 None Full Exam - General 1994 Constitutional general appearance Development: well developed 08/12/2015 None Full Exam - General 1994 Constitutional general appearance Hygiene/Attention to Grooming: good hygiene 08/12/2015 None Full Exam - General 1994 Eyes conjunctiva /eyelids Overall: conjunctiva clear 08/12/2015 None Full Exam - General 1994 Eyes conjunctiva /eyelids Overall: cornea clear 08/12/2015 None Full Exam - General 1994 Eyes conjunctiva /eyelids Overall: eyelids normal 08/12/2015 None Full Exam - General 1994 Eyes pupils and irises Overall: pupils equal, round, reactive to light and accomodation 08/12/2015 None Full Exam - General 1994 Ears/Nose/Throat otoscopic exam Overall: external auditory canals clear 08/12/2015 None Full Exam - General 1994 Ears/Nose/Throat otoscopic exam Overall: tympanic membranes clear 08/12/2015 None Full Exam - General 1994 Ears/Nose/Throat lips/teeth/gingiva Overall: benign lips 08/12/2015 None Full Exam - General 1994 Ears/Nose/Throat lips/teeth/gingiva Overall: normal dentition 08/12/2015 None Full Exam - General 1994 Ears/Nose/Throat oral cavity/pharynx/larynx Overall: hypopharynx benign 08/12/2015 None Full Exam - General 1994 Ears/Nose/Throat oral cavity/pharynx/larynx Overall: no masses 08/12/2015 None Full Exam - General 1994 Ears/Nose/Throat oral cavity/pharynx/larynx Overall: oral mucosa clear 08/12/2015 None Full Exam - General 1994 Ears/Nose/Throat oral cavity/pharynx/larynx Overall: oropharyngeal mucosa clear 08/12/2015 None Full Exam - General 1994 Respiratory auscultation Overall: breath sounds clear bilaterally 08/12/2015 None Full Exam - General 1994 Respiratory respiratory effort/rhythm Overall: no retractions 08/12/2015 None Full Exam - General 1994 Respiratory respiratory effort/rhythm Overall: normal rate 08/12/2015 None Full Exam - General 1994 Cardiovascular extremities Overall: no clubbing 08/12/2015 None Full Exam - General 1994 Cardiovascular auscultation of heart Overall: normal heart sounds 08/12/2015 None Full Exam - General 1994 Cardiovascular auscultation of heart Overall: regular rate 08/12/2015 None Full Exam - General 1994 Abdomen abdominal exam Overall: no tenderness 08/12/2015 None Full Exam - General 1994 Abdomen abdominal exam Overall: normal bowel sounds 08/12/2015 None Full Exam - General 1994 Integument inspection of skin Overall: few scattered moles, no gross abnormalities 08/12/2015 None Full Exam - General 1994 Neurologic deep tendon reflexes Overall: deep tendon reflexes intact 08/12/2015 None Full Exam - General 1994 Neurologic cranial nerves Overall: crainial nerves 2 - 12 grossly intact 08/12/2015 None Full Exam - General 1994 Psychiatric orientation/consciousness Overall: oriented to person, place and time 08/12/2015 None Full Exam - General 1994 Psychiatric mood and affect Overall: normal mood and affect 08/12/2015 None Full Exam - General 1994 Constitutional general appearance Overall: well developed 08/04/2015 None Full Exam - General 1994 Constitutional general appearance Overall: in no acute distress 08/04/2015 None Full Exam - General 1994 Constitutional general appearance Overall: well nourished 08/04/2015 None Full Exam - General 1994 Eyes conjunctiva /eyelids Overall: conjunctiva clear 08/04/2015 None Full Exam - General 1994 Eyes pupils and irises Overall: pupils equal, round, reactive to light and accomodation 08/04/2015 None Full Exam - General 1994 Ears/Nose/Throat lips/teeth/gingiva Overall: benign lips 08/04/2015 None Full Exam - General 1994 Respiratory auscultation Overall: breath sounds clear bilaterally 08/04/2015 None Full Exam - General 1994 Respiratory auscultation Lower lung field: diminished 08/04/2015 None Full Exam - General 1994 Respiratory respiratory effort/rhythm Overall: no retractions 08/04/2015 None Full Exam - General 1994 Respiratory respiratory effort/rhythm Overall: normal rate 08/04/2015 None Full Exam - General 1994 Cardiovascular extremities Cyanosis present: fingers 08/04/2015 None Full Exam - General 1994 Cardiovascular auscultation of heart Overall: regular rate 08/04/2015 None Full Exam - General 1994 Cardiovascular auscultation of heart Overall: normal heart sounds 08/04/2015 None Full Exam - General 1994 Abdomen abdominal exam Overall: no tenderness 08/04/2015 None Full Exam - General 1994 Abdomen abdominal exam Overall: normal bowel sounds 08/04/2015 None Full Exam - General 1994 Musculoskeletal gait and station Overall: normal station 08/04/2015 None Full Exam - General 1994 Integument inspection of skin Overall: few scattered moles, no gross abnormalities 08/04/2015 None Full Exam - General 1994 Neurologic cranial nerves Overall: crainial nerves 2 - 12 grossly intact 08/04/2015 None Full Exam - General 1994 Psychiatric orientation/consciousness Overall: oriented to person, place and time 08/04/2015 None Full Exam - General 1994 Musculoskeletal gait and station Gait: abnormal swing through 08/04/2015 - somewhat waddling gait - per pt due to pain Full Exam - General 1994 Constitutional general appearance Overall: well developed 05/16/2015 None Full Exam - General 1994 Constitutional general appearance Overall: in no acute distress 05/16/2015 None Full Exam - General 1994 Constitutional general appearance Overall: well nourished 05/16/2015 None Full Exam - General 1994 Eyes pupils and irises Overall: pupils equal, round, reactive to light and accomodation 05/16/2015 None Full Exam - General 1994 Respiratory auscultation Overall: breath sounds clear bilaterally 05/16/2015 None Full Exam - General 1994 Respiratory respiratory effort/rhythm Overall: no retractions 05/16/2015 None Full Exam - General 1994 Respiratory respiratory effort/rhythm Overall: normal rate 05/16/2015 None Full Exam - General 1994 Cardiovascular auscultation of heart Overall: regular rate 05/16/2015 None Full Exam - General 1994 Cardiovascular auscultation of heart Overall: normal heart sounds 05/16/2015 None Full Exam - General 1994 Abdomen abdominal exam Overall: no tenderness 05/16/2015 None Full Exam - General 1994 Abdomen abdominal exam Overall: normal bowel sounds 05/16/2015 None Full Exam - General 1994 Musculoskeletal gait and station Overall: normal gait 05/16/2015 None Full Exam - General 1994 Musculoskeletal gait and station Overall: normal station 05/16/2015 None Full Exam - General 1994 Integument inspection of skin Overall: few scattered moles, no gross abnormalities 05/16/2015 None Full Exam - General 1994 Neurologic cranial nerves Overall: crainial nerves 2 - 12 grossly intact 05/16/2015 None Full Exam - General 1994 Psychiatric orientation/consciousness Overall: oriented to person, place and time 05/16/2015 None Full Exam - General 1994 Eyes conjunctiva /eyelids Overall: conjunctiva clear 05/16/2015 None Full Exam - General 1994 Ears/Nose/Throat lips/teeth/gingiva Overall: benign lips 05/16/2015 None Full Exam - General 1994 Cardiovascular extremities Cyanosis present: fingers 05/16/2015 None Full Exam - General 1994 Respiratory auscultation Lower lung field: diminished 05/16/2015 None Full Exam - General 1994 Constitutional general appearance Development: well developed 05/12/2015 None Full Exam - General 1994 Constitutional general appearance Development: appears stated age 1105/12/2015 None Full Exam - General 1994 Constitutional general appearance Evidence of Distress: mild distress 05/12/2015 None Full Exam - General 1994 Respiratory respiratory effort/rhythm Overall: normal rate 05/12/2015 None Full Exam - General 1994 Respiratory respiratory effort/rhythm Overall: no retractions 05/12/2015 None Full Exam - General 1994 Respiratory auscultation Overall: breath sounds clear bilaterally 05/12/2015 None Full Exam - General 1994 Cardiovascular auscultation of heart Overall: regular rate 05/12/2015 None Full Exam - General 1994 Cardiovascular auscultation of heart Overall: normal heart sounds 05/12/2015 None Full Exam - General 1994 Cardiovascular auscultation of heart Overall: no murmurs 05/12/2015 None Full Exam - General 1994 Cardiovascular extremities Overall: no clubbing 05/12/2015 None Full Exam - General 1994 Abdomen abdominal exam Overall: no tenderness 05/12/2015 None Full Exam - General 1994 Abdomen abdominal exam Overall: normal bowel sounds 05/12/2015 None Full Exam - General 1994 Psychiatric orientation/consciousness Overall: oriented to person, place and time 05/12/2015 None Full Exam - General 1994 Psychiatric mood and affect Mood: happy 05/12/2015 None Full Exam - General 1994 Psychiatric mood and affect Overall: normal mood and affect 05/12/2015 None Full Exam - General 1994 Constitutional general appearance Overall: well developed 04/21/2015 None Full Exam - General 1994 Constitutional general appearance Overall: well nourished 04/21/2015 None Full Exam - General 1994 Constitutional general appearance Overall: in no acute distress 04/21/2015 None Full Exam - General 1994 Psychiatric orientation/consciousness Overall: oriented to person, place and time 04/21/2015 None Full Exam - General 1994 Neurologic deep tendon reflexes Overall: deep tendon reflexes intact 04/21/2015 None Full Exam - General 1994 Neurologic cranial nerves Overall: crainial nerves 2 - 12 grossly intact 04/21/2015 None Full Exam - General 1994 Integument inspection of skin Overall: few scattered moles, no gross abnormalities 04/21/2015 None Full Exam - General 1994 Musculoskeletal gait and station Overall: normal gait 04/21/2015 None Full Exam - General 1994 Musculoskeletal gait and station Overall: normal station 04/21/2015 None Full Exam - General 1994 Lymphatic neck nodes Overall: anterior cervical chain benign 04/21/2015 None Full Exam - General 1994 Lymphatic neck nodes Overall: posterior cervical chain benign 04/21/2015 None Full Exam - General 1994 Abdomen abdominal exam Overall: no tenderness 04/21/2015 None Full Exam - General 1994 Abdomen abdominal exam Overall: normal bowel sounds 04/21/2015 None Full Exam - General 1994 Cardiovascular auscultation of heart Overall: regular rate 04/21/2015 None Full Exam - General 1994 Cardiovascular auscultation of heart Overall: normal heart sounds 04/21/2015 None Full Exam - General 1994 Cardiovascular auscultation of heart Overall: no murmurs 04/21/2015 None Full Exam - General 1994 Cardiovascular extremities Overall: no clubbing 04/21/2015 None Full Exam - General 1994 Respiratory auscultation Overall: breath sounds clear bilaterally 04/21/2015 None Full Exam - General 1994 Respiratory respiratory effort/rhythm Overall: normal rate 04/21/2015 None Full Exam - General 1994 Respiratory respiratory effort/rhythm Overall: no retractions 04/21/2015 None Full Exam - General 1994 Ears/Nose/Throat otoscopic exam Overall: tympanic membranes clear 04/21/2015 None Full Exam - General 1994 Ears/Nose/Throat otoscopic exam Overall: external auditory canals clear 04/21/2015 None Full Exam - General 1994 Ears/Nose/Throat oral cavity/pharynx/larynx Overall: oropharyngeal mucosa clear 04/21/2015 None Full Exam - General 1994 Ears/Nose/Throat oral cavity/pharynx/larynx Overall: no masses 04/21/2015 None Full Exam - General 1994 Ears/Nose/Throat oral cavity/pharynx/larynx Overall: oral mucosa clear 04/21/2015 None Full Exam - General 1994 Neck thyroid Overall: normal size None Full Exam - General 1994 Eyes conjunctiva /eyelids Overall: conjunctiva clear 04/21/2015 None Full Exam - General 1994 Eyes pupils and irises Overall: pupils equal, round, reactive to light and accomodation 04/21/2015 None Procedures Procedure Codes Date THER/PROPH/DIAG INJ SC/IM CPT-4: 52445 06/22/2017 TRIAMCINOLONE ACET INJ NOS CPT-4: J3301 06/22/2017 THER/PROPH/DIAG INJ SC/IM CPT-4: 25422 08/04/2015 TRIAMCINOLONE ACET INJ NOS CPT-4: J3301 08/04/2015 Vital Signs Date Vital 09/13/2018 Blood Pressure 1: 156/86 Code : 8480-6 BMI: 32.3 Code : 90139-9 Heart Rate 1 : 90 bpm Height: 5'1" SpO2: 98% Weight: 171 lbs 05/04/2018 Blood Pressure 1: 158/88 Code : 8480-6 BMI: 33.3 Code : 44943-8 Heart Rate 1 : 63 bpm Height: 5'1" SpO2: 98% Weight: 176 lbs 01/10/2018 Blood Pressure 1: 138/88 Code : 8480-6 BMI: 31.9 Code : 24896-4 Heart Rate 1 : 78 bpm Height: 5'1" SpO2: 99% Weight: 169 lbs 12/06/2017 Blood Pressure 1: 158/98 Code : 8480-6 BMI: 32.3 Code : 57666-6 Heart Rate 1 : 60 bpm Height: 5'1" SpO2: 100% Weight: 171 lbs 06/22/2017 Blood Pressure 1: 168/92 Code : 8480-6 BMI: 32.6 Code : 96909-1 Heart Rate 1 : 133 bpm Height: 5'1" SpO2: 97% Temperature: 37.6 (C) / 99.7 (F) Weight: 172 lbs 8 oz 03/02/2017 Blood Pressure 1: 168/90 Code : 8480-6 BMI: 35.0 Code : 60904-1 Heart Rate 1 : 80 bpm Height: 5'1" SpO2: 94% Weight: 185 lbs 01/24/2017 Blood Pressure 1: 130/68 Code : 8480-6 BMI: 35.3 Code : 00377-2 Heart Rate 1 : 66 bpm Height: 5'1" SpO2: 98% Weight: 187 lbs 10/13/2016 Blood Pressure 1: 136/74 Code : 8480-6 BMI: 35.1 Code : 85481-8 Heart Rate 1 : 71 bpm Height: 5'1" SpO2: 97% Weight: 186 lbs 08/30/2016 Blood Pressure 1: 128/80 Code : 8480-6 BMI: 35.0 Code : 53053-1 Heart Rate 1 : 75 bpm Height: 5'1" SpO2: 96% Weight: 185 lbs 8 oz 07/02/2016 Blood Pressure 1: 140/78 Code : 8480-6 Heart Rate 1: 63 bpm Height: 5'1" SpO2: 98% 06/24/2016 Blood Pressure 1: 148/100 Code: 8480-6 BMI: 34.2 Code: 88930-8 Heart Rate 1: 110 bpm Height : 5'1" SpO2: 94% Weight: 181 lbs 05/04/2016 Blood Pressure 1: 150/90 Code : 8480-6 Blood Pressure 1: 134/82 Code: 8480-6 BMI: 34.6 Code: 17757-4 Heart Rate 1: 74 bpm Height: 5'1" SpO2: 98% Weight: 183 lbs 04/06/2016 Blood Pressure 1: 156/92 Code : 8480-6 Blood Pressure 1: 158/88 Code: 8480-6 BMI: 34.8 Code: 00624-0 Heart Rate 1: 69 bpm Height: 5'1" SpO2: 97% Weight: 184 lbs 03/18/2016 Blood Pressure 1: 148/90 Code : 8480-6 BMI: 35.1 Code : 55312-7 Heart Rate 1 : 106 bpm Height: 5'1" SpO2: 94% Weight: 186 lbs 03/11/2016 Blood Pressure 1: 140/90 Code : 8480-6 BMI: 35.1 Code : 75378-1 Heart Rate 1 : 103 bpm Height: 5'1" SpO2: 96% Weight: 186 lbs 02/24/2016 Blood Pressure 1: 130/80 Code : 8480-6 BMI: 34.4 Code : 91731-7 Heart Rate 1 : 110 bpm Height: 5'1" SpO2: 96% Weight: 182 lbs 12/16/2015 Blood Pressure 1: 144/98 Code : 8480-6 BMI: 33.8 Code : 37843-1 Heart Rate 1 : 97 bpm Height: 5'1" SpO2: 98% Weight: 179 lbs 10/30/2015 Blood Pressure 1: 138/88 Code : 8480-6 BMI: 33.6 Code : 63266-5 Heart Rate 1 : 88 bpm Height: 5'1" SpO2: 98% Weight: 178 lbs 09/23/2015 Blood Pressure 1: 152/94 Code : 8480-6 BMI: 32.7 Code : 47027-2 Heart Rate 1 : 83 bpm Height: 5'1" SpO2: 97% Weight: 173 lbs 09/10/2015 Blood Pressure 1: 136/82 Code : 8480-6 BMI: 32.1 Code : 20578-2 Heart Rate 1 : 105 bpm Height: 5'1" SpO2: 97% Weight: 170 lbs 08/12/2015 Blood Pressure 1: 132/70 Code : 8480-6 BMI: 31.2 Code : 53808-4 Heart Rate 1 : 88 bpm Height: 5'1" SpO2: 95% Temperature: 36.7 (C) / 98.0 (F) Weight: 165 lbs 08/04/2015 Blood Pressure 1: 136/80 Code : 8480-6 BMI: 31.0 Code : 35815-9 Heart Rate 1 : 110 bpm Height: 5'1" SpO2: 98% Weight: 164 lbs 05/16/2015 Blood Pressure 1: 138/88 Code : 8480-6 BMI: 32.9 Code : 77045-4 Heart Rate 1 : 87 bpm Height: 5'1" SpO2: 90% Weight: 174 lbs 05/12/2015 BMI: 31.7 Code: 81731-1 Height: 5'1" Weight: 168 lbs 04/21/2015 Blood Pressure 1: 124/82 Code : 8480-6 BMI: 32.1 Code : 36489-2 Heart Rate 1 : 87 bpm Height: 5'1" Weight: 170 lbs Functional Status No Functional Status data History of Present Illness Symptom Name Status Result Effective Date Notes Abnormal Indicator abnormal 09/13/2018 None Onset of Symptom several months ago 09/13/2018 None Onset and Resolution ongoing 09/13/2018 None Triggers Denies no known associated factors 09/13/2018 None Test Performed 1 days ago 09/13/2018 None hypertension Onset and Resolution ongoing 05/04/2018 None hypertension Onset of Symptom during adulthood 05/04/2018 None hypertension Blood Pressure Values not checking blood pressure at home 05/04/2018 None hypertension Alleviating Factors medication 05/04/2018 None hypertension Exacerbating Factors stress 05/04/2018 None hypertension Pertinent Findings Denies dizziness 05/04/2018 None hypertension Pertinent Findings Denies dyspnea 05/04/2018 None hypertension Pertinent Findings Denies edema 05/04/2018 None hypertension Onset and Resolution ongoing 01/10/2018 None hypertension Onset of Symptom during adulthood 01/10/2018 None hypertension Blood Pressure Values not checking blood pressure at home 01/10/2018 None hypertension Alleviating Factors medication 01/10/2018 None hypertension Exacerbating Factors stress 01/10/2018 None hypertension Pertinent Findings Denies dizziness 01/10/2018 None hypertension Pertinent Findings Denies dyspnea 01/10/2018 None hypertension Pertinent Findings Denies edema 01/10/2018 None hypertension Onset and Resolution ongoing 12/06/2017 None hypertension Onset of Symptom during adulthood 12/06/2017 None hypertension Blood Pressure Values not checking blood pressure at home 12/06/2017 None hypertension Alleviating Factors medication 12/06/2017 None hypertension Exacerbating Factors stress 12/06/2017 None hypertension Pertinent Findings Denies dizziness 12/06/2017 None hypertension Pertinent Findings Denies dyspnea 12/06/2017 None hypertension Pertinent Findings Denies edema 12/06/2017 None hypothyroid Location at the level of the thyroid 12/06/2017 None hypothyroid Quality chronic 12/06/2017 None hypothyroid Onset and Resolution ongoing 12/06/2017 None hypothyroid Alleviating Factors medication 12/06/2017 None cough Location in the throat 06/22/2017 None cough Location in the lung 06/22/2017 None cough Quality acute None cough Quality hacking 06/22/2017 None cough Quality productive 06/22/2017 None cough Onset and Resolution sudden in onset 06/22/2017 None cough Onset of Symptom 3 days ago 06/22/2017 None cough Pertinent Findings chest discomfort 06/22/2017 None cough Pertinent Findings fever 06/22/2017 None cough Pertinent Findings hoarseness 06/22/2017 None cough Pertinent Findings ill contacts 06/22/2017 None cough Pertinent Findings lethargy 06/22/2017 None cough Pertinent Findings muscle aches 06/22/2017 None cough Pertinent Findings nasal congestion 06/22/2017 None cough Pertinent Findings purulent sputum 06/22/2017 None cough Pertinent Findings post nasal drip 06/22/2017 None cough Pertinent Findings sputum production 06/22/2017 None cough Pertinent Findings weakness 06/22/2017 None cough Pertinent Findings vomiting 06/22/2017 None cough Triggers post nasal drip 06/22/2017 None cough Triggers ill contacts 06/22/2017 None cough Triggers no known associated factors 06/22/2017 None cough Alleviating Factors OTC medications 06/22/2017 None malaise Quality acute 06/22/2017 None malaise Onset and Resolution sudden in onset 06/22/2017 None malaise Onset of Symptom 3 days ago 06/22/2017 None malaise Ill Contacts ill contacts 06/22/2017 None malaise Triggers no known associated factors 06/22/2017 None malaise Triggers stress 06/22/2017 None malaise Pertinent Findings cough 06/22/2017 None malaise Pertinent Findings fever 06/22/2017 None malaise Pertinent Findings lightheadedness 06/22/2017 None malaise Pertinent Findings nausea 06/22/2017 None malaise Pertinent Findings upper respiratory tract symptoms 06/22/2017 None malaise Pertinent Findings vomiting 06/22/2017 None sinus congestion Location frontal sinuses 03/02/2017 None sinus congestion Quality fullness 03/02/2017 None sinus congestion Quality pressure 03/02/2017 None sinus congestion Onset and Resolution sudden in onset 03/02/2017 None sinus congestion Onset of Symptom 2 days ago 03/02/2017 None sinus congestion Frequency of Episodes daily 03/02/2017 None sinus congestion Pertinent Findings cough 03/02/2017 None sinus congestion Pertinent Findings decreased energy level 03/02/2017 None sinus congestion Pertinent Findings hoarseness 03/02/2017 None sore throat Location diffusely 03/02/2017 None sore throat Quality aching 03/02/2017 None sore throat Quality constant 03/02/2017 None sore throat Quality dull 03/02/2017 None sore throat Quality scratchy 03/02/2017 None sore throat Onset and Resolution sudden in onset 03/02/2017 None sore throat Onset of Symptom 2 days ago 03/02/2017 None sore throat Frequency of Episodes daily 03/02/2017 None sore throat Pertinent Findings cough 03/02/2017 None sore throat Pertinent Findings hoarseness 03/02/2017 None diaphoresis Quality constant 01/24/2017 None diaphoresis Onset and Resolution ongoing 01/24/2017 None diaphoresis Onset of Symptom 8 months ago 01/24/2017 None diaphoresis Severity moderate 01/24/2017 None diaphoresis Severity severe 01/24/2017 None diaphoresis Frequency of Episodes daily 01/24/2017 None diaphoresis Triggers no known associated factors 01/24/2017 None diaphoresis Pertinent Findings Denies fever 01/24/2017 None diaphoresis Alleviating Factors medication 01/24/2017 None sinus congestion Location maxillary sinuses 01/24/2017 None sinus congestion Quality acute 01/24/2017 None sinus congestion Location on the left 01/24/2017 None sinus congestion Pertinent Findings Denies fever 01/24/2017 None sinus congestion Pertinent Findings facial pain 01/24/2017 None cough Location in the throat 10/13/2016 None cough Quality constant 10/13/2016 None cough Quality hacking 10/13/2016 None cough Onset and Resolution sudden in onset 10/13/2016 None cough Onset of Symptom 3 days ago 10/13/2016 None cough Frequency of Episodes daily 10/13/2016 None cough Pertinent Findings hoarseness 10/13/2016 None cough Pertinent Findings nasal congestion 10/13/2016 None sore throat Location diffusely 10/13/2016 None sore throat Quality constant 10/13/2016 None sore throat Quality scratchy 10/13/2016 None sore throat Quality aching 10/13/2016 None sore throat Onset and Resolution sudden in onset 10/13/2016 None sore throat Onset of Symptom 4 days ago 10/13/2016 None sore throat Frequency of Episodes daily 10/13/2016 None sinus congestion Location on both sides 10/13/2016 None sinus congestion Quality fullness 10/13/2016 None sinus congestion Onset and Resolution sudden in onset 10/13/2016 None sinus congestion Onset of Symptom 4 days ago 10/13/2016 None sinus congestion Frequency of Episodes daily 10/13/2016 None hypertension Onset and Resolution ongoing 08/30/2016 None hypertension Onset of Symptom during adulthood 08/30/2016 None hypertension Blood Pressure Values not checking blood pressure at home 08/30/2016 None hypertension Alleviating Factors medication 08/30/2016 None hypertension Pertinent Findings Denies dizziness 08/30/2016 None hypertension Pertinent Findings Denies dyspnea 08/30/2016 -She continues to have wheezing though hypertension Pertinent Findings Denies edema 08/30/2016 None hypothyroid Location at the level of the thyroid 08/30/2016 None hypothyroid Quality chronic 08/30/2016 None hypothyroid Onset and Resolution ongoing 08/30/2016 None hypothyroid Alleviating Factors medication 08/30/2016 None hypertension Exacerbating Factors stress 08/30/2016 None shoulder pain Location Left Posterior Shoulder 07/02/2016 None shoulder pain Quality acute 07/02/2016 None shoulder pain Onset and Resolution sudden in onset 07/02/2016 None shoulder pain Onset and Resolution improved during the day 07/02/2016 None shoulder pain Pertinent Findings Denies fever 07/02/2016 None menopausal symptoms Quality constant 06/24/2016 None menopausal symptoms Quality hot flashes 06/24/2016 None menopausal symptoms Quality palpitations 06/24/2016 None menopausal symptoms Onset and Resolution sudden in onset 06/24/2016 None menopausal symptoms Onset of Symptom 1 years ago 06/24/2016 None menopausal symptoms Frequency of Episodes daily 06/24/2016 None hypertension Onset and Resolution ongoing 05/04/2016 None hypertension Onset of Symptom during adulthood 05/04/2016 None hypertension Alleviating Factors medication 05/04/2016 None hypertension Pertinent Findings Denies dizziness 05/04/2016 None hypertension Pertinent Findings Denies dyspnea 05/04/2016 None hypertension Pertinent Findings edema 05/04/2016 -improved hypertension Blood Pressure Values not checking blood pressure at home 05/04/2016 None hypertension Blood Pressure Values patient checking blood pressure at home - did not bring in readings 05/04/2016 None hypothyroid Location at the level of the thyroid 05/04/2016 None hypothyroid Quality chronic 05/04/2016 None hypothyroid Onset and Resolution ongoing 05/04/2016 None hypothyroid Alleviating Factors medication 05/04/2016 None hypertension Onset and Resolution ongoing 04/06/2016 None hypertension Onset of Symptom during adulthood 04/06/2016 None hypertension Alleviating Factors medication 04/06/2016 None hypertension Pertinent Findings Denies dizziness 04/06/2016 None hypertension Pertinent Findings Denies dyspnea 04/06/2016 None hypertension Pertinent Findings edema 04/06/2016 None hypothyroid Location at the level of the thyroid 04/06/2016 None hypothyroid Quality chronic 04/06/2016 None hypothyroid Onset and Resolution ongoing 04/06/2016 None hypothyroid Alleviating Factors medication 04/06/2016 None hypertension Blood Pressure Values patient checking blood pressure at home - did not bring in readings 04/06/2016 None foot pain Location on the left 04/06/2016 None foot pain Location on the right 04/06/2016 None foot pain Location on the plantar surface 04/06/2016 None foot pain Limitation on Activities allows weight bearing activity 04/06/2016 None foot pain Pertinent Findings swelling 04/06/2016 None foot pain Pertinent Findings numbness 04/06/2016 None blood pressure followup Quality intermittent 03/18/2016 None blood pressure followup Onset and Resolution ongoing 03/18/2016 None blood pressure followup Onset of Symptom during adulthood 03/18/2016 None blood pressure followup Frequency of Episodes daily 03/18/2016 None blood pressure followup Pertinent Findings anxiety 03/18/2016 None blood pressure followup Pertinent Findings Denies dyspnea 03/18/2016 None blood pressure followup Pertinent Findings Denies edema 03/18/2016 None blood pressure followup Blood Pressure Values pt checking blood pressure - see scanned document 03/18 None blood pressure followup Quality intermittent 03/11/2016 None blood pressure followup Onset and Resolution ongoing 03/11/2016 None blood pressure followup Blood Pressure Values not checking blood pressure at home 03/11/2016 None blood pressure followup Frequency of Episodes daily 03/11/2016 None blood pressure followup Pertinent Findings anxiety 03/11/2016 None blood pressure followup Pertinent Findings dyspnea 03/11/2016 None blood pressure followup Pertinent Findings Denies edema 03/11/2016 None blood pressure followup Onset of Symptom during adulthood 03/11/2016 None edema Onset and Resolution ongoing 02/24/2016 None edema Onset of Symptom 1 months ago 02/24/2016 None edema Pertinent Findings Denies back pain 02/24/2016 None edema Pertinent Findings Denies dyspnea 02/24/2016 None edema Pertinent Findings Denies tachypnea 02/24/2016 None edema Limitation on Activities does not limit activities 02/24/2016 None edema Frequency of Episodes increasing 02/24/2016 None edema Triggers no known associated factors 02/24/2016 None edema Alleviating Factors rest 02/24/2016 None edema Quality acute None edema Location on the left leg 02/24/2016 None edema Location on the right leg 02/24/2016 None hypertension Onset and Resolution ongoing 12/16/2015 None hypertension Onset of Symptom during adulthood 12/16/2015 None hypertension Blood Pressure Values not checking blood pressure at home 12/16/2015 None hypertension Alleviating Factors medication 12/16/2015 None hypertension Pertinent Findings Denies dizziness 12/16/2015 None hypertension Pertinent Findings Denies dyspnea 12/16/2015 None hypertension Pertinent Findings edema 12/16/2015 None hypothyroid Onset and Resolution ongoing 12/16/2015 None hypothyroid Alleviating Factors medication 12/16/2015 None hypothyroid Quality chronic 12/16/2015 None hypothyroid Location at the level of the thyroid 12/16/2015 None hypertension Quality intermittent 10/30/2015 None hypertension Onset and Resolution ongoing 10/30/2015 None hypertension Onset of Symptom during adulthood 10/30/2015 None hypertension Blood Pressure Values not checking blood pressure at home 10/30/2015 None hypertension Severity not consistently severe symptoms, the symptoms fluctuate from no symptoms to anxiety and headaches 10/30/2015 None hypertension Pertinent Findings Denies dizziness 10/30/2015 None hypertension Pertinent Findings dyspnea 10/30/2015 None hypertension Pertinent Findings Denies edema 10/30/2015 None diarrhea Quality acute 09/23/2015 None diarrhea Quality watery 09/23/2015 None diarrhea Onset and Resolution sudden in onset 09/23/2015 None diarrhea Onset of Symptom 2 days ago 09/23/2015 None nausea Onset and Resolution sudden in onset 09/23/2015 None nausea Onset of Symptom 2 days ago 09/23/2015 None nausea Quality acute 09/23/2015 None diarrhea Quality improving 09/23/2015 None nausea Quality improving 09/23/2015 None diarrhea Quality intermittent 09/10/2015 None diarrhea Quality loose 09/10/2015 None diarrhea Onset and Resolution ongoing 09/10/2015 since her hospitalization diarrhea Timing of Episodes after meals 09/10/2015 None diarrhea Triggers stress 09/10/2015 None nasal discharge Quality acute 08/12/2015 None nasal discharge Quality clear 08/12/2015 None nasal discharge Onset and Resolution sudden in onset 08/12/2015 None nasal discharge Onset of Symptom 2 days ago 08/12/2015 None nasal discharge Pertinent Findings cough 08/12/2015 -nonproductive nasal discharge Pertinent Findings Denies hoarseness 08/12/2015 None nasal discharge Location in both nares 08/12/2015 None sinusitis Location in the bilateral frontal sinuses 08/12/2015 None sinusitis Location in the bilateral maxillary sinuses 08/12/2015 None sinusitis Onset and Resolution gradual in onset 08/12/2015 None sinusitis Onset and Resolution ongoing 08/12/2015 None sinusitis Pertinent Findings facial pain 08/12/2015 None sinusitis Pertinent Findings fatigue 08/12/2015 None sinusitis Pertinent Findings headache 08/12/2015 None sinusitis Pertinent Findings sinus pain 08/12/2015 None sinusitis Pertinent Findings sinus pressure 08/12/2015 None sinusitis Quality acute 08/12/2015 None sinusitis Quality pain 08/12/2015 None sinusitis Quality pressure 08/12/2015 None sinusitis Severity moderate 08/12/2015 None knee pain Location on the right 08/04/2015 None knee pain Location on the left 08/04/2015 None knee pain Quality sharp pain 08/04/2015 None knee pain Quality acute 08/04/2015 None knee pain Onset and Resolution sudden in onset 08/04/2015 None knee pain Onset of Symptom 2 days ago 08/04/2015 None knee pain Timing of Episodes at night 08/04/2015 -most pain is at night knee pain Limitation on Activities allows weight bearing activity 08/04/2015 None knee pain Limitation on Activities moderately limits activities 08/04/2015 None knee pain Severity severe 08/04/2015 None ankle pain Location on the left 08/04/2015 None ankle pain Location on the right 08/04/2015 None ankle pain Quality acute 08/04/2015 None ankle pain Timing of Episodes at night 08/04/2015 -most pain at night ankle pain Timing of Episodes wakes-up from pain 08/04/2015 None ankle pain Onset and Resolution sudden in onset 08/04/2015 None ankle pain Onset of Symptom 2 days ago 08/04/2015 None ankle pain Limitation on Activities allows weight bearing activity 08/04/2015 None ankle pain Limitation on Activities moderately limits activities 08/04/2015 None ankle pain Severity severe 08/04/2015 None foot pain Location on the left 08/04/2015 None foot pain Location on the right 08/04/2015 None foot pain Quality acute 08/04/2015 None foot pain Timing of Episodes wakes-up from pain 08/04/2015 None foot pain Onset and Resolution sudden in onset 08/04/2015 None foot pain Onset of Symptom 2 days ago 08/04/2015 None foot pain Limitation on Activities moderately limits activities 08/04/2015 None foot pain Severity severe 08/04/2015 None Hospital Follow Up Quality acute illness 08/04/2015 None shortness of breath Onset of Symptom during adulthood 05/16/2015 None shortness of breath Onset and Resolution ongoing 05/16/2015 None hypertension Onset and Resolution ongoing 05/16/2015 None hypertension Onset of Symptom during adulthood 05/16/2015 None hypothyroid Quality stable 04/21/2015 None hypothyroid Pertinent Findings Denies coarse skin 04/21/2015 None hypothyroid Pertinent Findings Denies brittle nails 04/21/2015 None hypertension Quality intermittent 04/21/2015 None hypertension Onset and Resolution ongoing 04/21/2015 None hypertension Pertinent Findings anxiety 04/21/2015 controlled with effexor hypertension Pertinent Findings Denies dizziness 04/21/2015 None hypertension Pertinent Findings Denies dyspnea 04/21/2015 None hypothyroid Onset and Resolution ongoing 04/21/2015 None hypothyroid Onset of Symptom during adulthood 04/21/2015 None hypothyroid Frequency of Episodes unchanged 04/21/2015 None hypothyroid Triggers no known associated factors 04/21/2015 None hypothyroid Alleviating Factors medication 04/21/2015 None hypertension Severity not consistently severe symptoms, the symptoms fluctuate from no symptoms to anxiety and headaches 04/21/2015 None hypertension Frequency of Episodes unchanged 04/21/2015 None hypertension Onset of Symptom during adulthood 04/21/2015 None hypertension Blood Pressure Values not checking blood pressure at home 04/21/2015 None hypertension Triggers no known associated factors 04/21/2015 None hypertension Alleviating Factors medication 04/21/2015 None Advance Directives No Advance Directive data Encounters Encounter Performer Location Codes Date EST. PATIENT, LEVEL III Diagnosis: Hypokalemia[ICD10: E87.6] Diagnosis: Interstitial pulmonary disease, unspecified[ICD10: J84.9] Britney Maya MD, [facility] CPT-4: 01993 09/13/2018 14519 EST. PATIENT, LEVEL IV Diagnosis: Essential (primary) hypertension[ICD10: I10] Diagnosis: Interstitial pulmonary disease, unspecified[ICD10: J84.9] Diagnosis: Chronic kidney disease, stage 3 (moderate)[ICD10: N18.3] Diagnosis: Mixed hyperlipidemia[ICD10: E78.2] Britney Maya MD, [facility] CPT-4: 86144 05/04/2018 03496 EST. PATIENT, LEVEL IV Diagnosis: Essential (primary) hypertension[ICD10: I10] Diagnosis: Interstitial pulmonary disease, unspecified[ICD10: J84.9] Diagnosis: Chronic kidney disease, stage 3 (moderate)[ICD10: N18.3] Diagnosis: Mixed hyperlipidemia[ICD10: E78.2] Britney Maya MD, [facility] CPT-4: 33369 01/10/2018 81648 EST. PATIENT, LEVEL IV Diagnosis: Other specified hypothyroidism[ICD10: E03.8] Diagnosis: Essential (primary) hypertension[ICD10: I10] Britney Maya MD, [facility] CPT-4: 68065 12/06/2017 74146 EST. PATIENT, LEVEL IV Diagnosis: Other malaise[ICD10: R53.81] Diagnosis: Other fatigue[ICD10: R53.83] Britney Maya MD, [facility] CPT-4 : 53302 06/22/2017 14825 EST. PATIENT, LEVEL IV Diagnosis: Acute laryngopharyngitis[ICD10: J06.0] Diagnosis: Other acute sinusitis[ICD10: J01.80] Diagnosis: Other allergic rhinitis[ICD10: J30.89] Britney Maya MD, [facility] CPT-4: 88990 03/02/2017 32763 EST. PATIENT, LEVEL IV Diagnosis: Generalized hyperhidrosis[ICD10: R61] Diagnosis: Other acute sinusitis[ICD10: J01.80] Diagnosis: Other fatigue[ICD10: R53.83] Diagnosis: Interstitial pulmonary disease, unspecified[ICD10: J84.9] Britney Maya MD, [facility] CPT-4: 59316 01/24/2017 29109 EST. PATIENT, LEVEL IV Diagnosis: Acute laryngopharyngitis[ICD10: J06.0] Diagnosis: Other acute sinusitis[ICD10: J01.80] Britney Maya MD, [facility] CPT-4: 95844 10/13/2016 ([id number]) 35281 EST. 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 PATIENT, LEVEL IV Diagnosis: Pain in thoracic spine[ICD10: M54.6] Diagnosis: Pain in left shoulder[ICD10: M25.512] Diagnosis: Zoster without complications[ICD10: B02.9] Britney Maya MD, [facility] CPT-4: 92991 07/02/2016 46548 EST. PATIENT, LEVEL III Diagnosis: Other specified hypothyroidism[ICD10: E03.8] Diagnosis: Menopausal and female climacteric states[ICD10: N95.1] Diagnosis: Essential (primary) hypertension[ICD10: I10] Britney Maya MD, [facility] CPT-4: 34495 06/24/2016 ([id number]) 31406 EST. PATIENT, LEVEL IV Diagnosis: Essential (primary) hypertension[ICD10: I10] Diagnosis: Atrophy of thyroid (acquired)[ICD10: E03.4] Diagnosis: Pain in left foot[ICD10: M79.672] Meghana Maya MD, [facility] CPT-4: 45993 05/04/2016 ([id number]) 40676 EST. PATIENT, LEVEL IV Diagnosis: Essential (primary) hypertension[ICD10: I10] Diagnosis: Pain in left leg[ICD10: M79.605] Diagnosis: Pain in left foot[ICD10: M79.672] Diagnosis: Atrophy of thyroid (acquired)[ICD10: E03.4] Meghana Maya MD, [facility] CPT-4: 13800 04/06/2016 ([id number]) 76457 EST. PATIENT, LEVEL III Diagnosis: Essential (primary) hypertension[ICD10: I10] Diagnosis: Localized edema[ICD10: R60.0] Catie Maya MD, [facility] CPT-4: 20599 03/18/2016 ([id number]) 22767 EST. PATIENT, LEVEL III Diagnosis: Essential (primary) hypertension[ICD10: I10] Diagnosis: Pain in left foot[ICD10: M79.672] Catie Maya MD, [facility] CPT-4: 98010 03/11/2016 ([id number]) 96668 EST. PATIENT, LEVEL III Diagnosis: Localized edema[ICD10: R60.0] Diagnosis: Essential (primary) hypertension[ICD10: I10] Catie Maya MD, [facility] CPT-4: 68293 02/24/2016 ([id number]) 28478 EST. PATIENT, LEVEL IV Diagnosis: Hypothyroidism, unspecified[ICD10: E03.9] Diagnosis: Essential (primary) hypertension[ICD10: I10] Meghana Maya MD, [facility] CPT-4: 89906 12/16/2015 ([id number]) 09266 EST. PATIENT, LEVEL III Diagnosis: Essential (primary) hypertension[ICD10: I10] Diagnosis: Hypothyroidism, unspecified[ICD10: E03.9] Meghana aMya MD, [facility] CPT-4: 98805 10/30/2015 [id number]) 00701 EST. PATIENT, LEVEL IV Diagnosis: Diarrhea, unspecified[ICD10: R19.7] Diagnosis: Essential (primary) hypertension[ICD10: I10] Meghana Maya MD, [facility] CPT-4: 85928 09/23/2015 ([id number]) 71956 EST. PATIENT, LEVEL III Diagnosis: Essential (primary) hypertension[ICD10: I10] Diagnosis: Diarrhea, unspecified[ICD10: R19.7] Meghana Maya MD, [facility] CPT-4: 10934 09/10/2015 ([id number]) 96836 EST. PATIENT, LEVEL III Diagnosis: Acute maxillary sinusitis, unspecified[ICD10: J01.00] Diagnosis: Myositis, unspecified[ICD10: M60.9] Meghana Maya MD, [facility] CPT-4: 84840 08/12/2015 ([id number]) 90398 EST. PATIENT, LEVEL IV Diagnosis: Essential (primary) hypertension[ICD10: I10] Diagnosis: Pain in left leg[ICD10: M79.605] Diagnosis: Other myositis, multiple sites[ICD10: M60.89] Diagnosis: Hypothyroidism, unspecified[ICD10: E03.9] Meghana Maya MD, [facility] CPT-4: 23943 08/04/2015 40028 EST. PATIENT, LEVEL III Diagnosis: Dyspnea, unspecified[ICD10: R06.00] Diagnosis: Essential (primary) hypertension[ICD10: I10] Meghana Maya MD, [facility] CPT-4: 83924 05/16/2015 ([id number]) 35484 EST. PATIENT, LEVEL II Diagnosis: Dyspnea, unspecified[ICD10: R06.00] Meghana Maya MD, [facility] CPT-4: 42697 05/12/2015 ([id number]) OFFICE VISIT, NEW - LEVEL 4 Diagnosis: Essential (primary) hypertension[ICD10: I10] Diagnosis: Impaired fasting glucose[ICD10: R73.01] Diagnosis: Mixed hyperlipidemia[ICD10: E78.2] Diagnosis: Hypothyroidism, unspecified[ICD10: E03.9] Diagnosis: Encounter for screening mammogram for malignant neoplasm of breast[ ICD10: Z12.31] Catie Maya MD, [facility] CPT-4: 32815 04/21/2015 Plan of Care Planned Activity Notes Codes Status Date Visit Plan: Hypokalemia - will send RX for potassium and monitor labs Interstitial lung disease - pt is to follow up with specialist and notify clinic with any changes in current treatment plan 09/13/2018 Appointment: [phone] [id number] ([facility] [place] Complex 09/13/2018 Patient Education: Patient Medication Summary Completed 09/13/2018 Visit Plan: Hypertension - well controlled - continue with current medications, continue with no added salt diet. Pt has been encouraged to exercise daily. The pt has been advised to call the office if there are any acute concerns about change in blood pressure readings at home. Hyperlipidemia - pt has been counseled about appropriate diet, exercise, and need for low fat food choices. I have discussed the need for the patient to take medications as prescribed. If the patient has negative side effects from the medication, they are to CALL the office and not abruptly discontinue the medication without discussion with a practitioner in the office. We will check labs in 3-6 months for follow up on the patient's chronic medical problem and to assure normal liver response to medications. Interstitial pulmonary disease and chronic kidney disease - defer to specialist - pt is to notify clinic with any changes in the current treatment plan 05/04/2018 Appointment: Brit[facility] Bower [phone] [id number] (15 min) Moderate 05/04/2018 Patient Education: Patient Medication Summary Completed 05/04/2018 Patient Education: Cholesterol Management Completed 05/04/2018 Appointment: Lab Draw 02/23/2018 Visit Plan: Hypertension - well controlled - continue with current medications, continue with no added salt diet. Pt has been encouraged to exercise daily. The pt has been advised to call the office if there are any acute concerns about change in blood pressure readings at home. Hyperlipidemia - pt has been counseled about appropriate diet, exercise, and need for low fat food choices. I have discussed the need for the patient to take medications as prescribed. If the patient has negative side effects from the medication, they are to CALL the office and not abruptly discontinue the medication without discussion with a practitioner in the office. We will check labs in 3-6 months for follow up on the patient's chronic medical problem and to assure normal liver response to medications. Interstitial pulmonary disease and chronic kidney disease - defer to specialist - pt is to notify clinic with any changes in the current treatment plan 01/10/2018 Appointment: Brit[facility] Bower [phone] [facility] [id number] (30 min) Complex 01/10/2018 Patient Education: Patient Medication Summary Completed 01/10/2018 Patient Education: Obesity Completed 01/10/2018 Visit Plan: Hypertension - The patient has been counseled to cut back on salt in diet for a no added salt diet, low fat diet, start an exercise program with low weight bearing exercises and higher aerobic activity for heart health. The patient is to check blood pressure readings as an outpatient and either fax, call, or email the readings to the office next week for practitioner to review. The pt is to call for acute concerns. Hypothyroidism - pt with chronic hypothyroidism, continue with current medication, will monitor pt to signs or symptoms of lack of adequate supplementation. Pt is to continue with current dose of medication unless directed otherwise. Check labs at regular intervals wither q 3 months or q 6 months based on previous levels of control. 12/06/2017 Appointment: Britney Bowerl: [facility]4 [facility] (15 min) Moderate 12/06/2017 Patient Education: Patient Medication Summary Completed 12/06/2017 Visit Plan: URI - Pt advised to increase fluids, vitamin C. Discussed natural and expected course of this diagnosis and need to alert me if symptoms do not follow expected course, or if any worse. RX sent to patient' s pharmacy. 06/22/2017 Appointment: Britney Bowerl: [address] [facility] (15 min) Moderate 06/22/2017 Patient Education: Patient Medication Summary Completed 06/22/2017 Visit Plan: URI - Pt advised to increase fluids, vitamin C. Discussed natural and expected course of this diagnosis and need to alert me if symptoms do not follow expected course, or if any worse. RX sent to patient' s pharmacy. Sinusitis - Pt has acute infection - pain in face, maxillary region , Pt informed to use decongestant, RX given to patient, sinus rinses also recommended. Call if symptoms do not show improvement. Allergies - chronic - recommended pt to use allergy medication as prescribed. Pt has been counseled as to the appropriate use of the medication. Pt to call if allergy symptoms are not controlled with the medication. If using nasal spray, instructions as follows: Nasal spray- use twice daily, one spray per nostril twice daily, after 30 minutes, rinse out nose with saline spray.. Use opposite hand per nostril to spray in the nasal steroid allergy spray. 03/02/2017 Appointment: Britney Bower WPtel: 1015 [facility] (10 min) Simple 03/02/2017 Patient Education: Patient Medication Summary Completed 03/02/2017 Patient Education: Obesity Completed 03/02/2017 Visit Plan: Sinusitis - Pt has acute infection - pain in face, maxillary region, Pt informed to use decongestant, RX given to patient, sinus rinses also recommended. Call if symptoms do not show improvement. 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 Maya - will increase clonidine to BID - pt is to consider referral to dermatology - notify clinic if symptoms do not improve, if they worsen, or with any other questions or concerns. 01/24/2017 Appointment: Britney Bower WPtel: [facility]5 [facility] (30 min) Complex 01/24/2017 Patient Education: Patient Medication Summary Completed 01/24/2017 Visit Plan: URI - Pt advised to increase fluids, vitamin C. Discussed natural and expected course of this diagnosis and need to alert me if symptoms do not follow expected course, or if any worse. RX sent to patient' s pharmacy. Sinusitis - Pt has acute infection - pain in face, maxillary region , Pt informed to use decongestant, RX given to patient, sinus rinses also recommended. Call if symptoms do not show improvement. 10/13/2016 Appointment: Britney Bower WPtel: [facility]5 [facility] (30 min) Complex 10/13/2016 Patient Education: Patient Medication Summary Completed 10/13/2016 Patient Education: Obesity Completed 10/13/2016 Visit Plan: Hypertension - well controlled - continue with current medications, continue with no added salt diet. Pt has been encouraged to exercise daily. The pt has been advised to call the office if there are any acute concerns about change in blood pressure readings at home. 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 The patient is to call the office if the pain is worsening or does not improve. Shingles - Herpes Zoster - acute in onset - pt started on acyclovir and instructed to call if symptoms worsen or if the pt is concerned about the symptoms. Pt has been advised to avoid contact with persons who may be , or infants, or immunocompromised individuals. Pt has been instructed that shingles will continue to break out and eventually scab over a two week period, until all of the vesicles are scabbed, the pt is to be considered contagious. 07/02/2016 Appointment: Britney Bower WPtel: [facility] (30 min) Complex 07/02/2016 Patient Education: Patient Medication Summary Completed 07/02/2016 Visit Plan: Hypertension - uncontrolled - the patient's medications have been modified as documented in the visit note. The patient has been counseled to cut back on salt in diet for a no added salt diet, low fat diet, start an exercise program with low weight bearing exercises and higher aerobic activity for heart health. The patient is to check blood pressure readings as an outpatient and either fax, call, or email the readings to the office next week for practitioner to review. The pt is to call for acute concerns. Hot Flashes - will send RX - pt is to notify clinic if symptoms do not improve, if they worsen, or with any questions or concerns. Hypothyroidism - pt with chronic hypothyroidism, continue with current medication, will monitor pt to signs or symptoms of lack of adequate supplementation. Pt is to continue with current dose of medication unless directed otherwise. Check labs at regular intervals wither q 3 months or q 6 months based on previous levels of control. 06/24/2016 Appointment: Britney Bower WPtel: [facility] (30 min) Complex 06/24/2016 Patient Education: Patient Medication Summary Completed 06/24/2016 Patient Education: Obesity Completed 06/24/2016 Patient Education: Hypertension Completed 06/24/2016 Patient Education: Patient Medication Summary Completed 05/14/2016 Care Plan: [facility] 17903-2 Pending 05/14/2016 Visit Plan: Hypertension - well controlled - continue with current medications, continue with no added salt diet. Pt has been encouraged to exercise daily. The pt has been advised to call the office if there are any acute concerns about change in blood pressure readings at home. Hypothyroidism - pt with chronic hypothyroidism, continue with current medication, will monitor pt to signs or symptoms of lack of adequate supplementation. Pt is to continue with current dose of medication unless directed otherwise. Check labs at regular intervals wither q 3 months or q 6 months based on previous levels of control. Left foot pain - capzasin cream to area on foot that is painful. 05/04/2016 Appointment: Meghana Maya [facility]Ptel[facility] (15 min) Moderate 05/04/2016 Patient Education: Patient Medication Summary Completed 05/04/2016 Patient Education: Hypertension Completed 05/04/2016 Referral: Sharon Duran Patient informed. Referral info faxed. Completed Visit Plan: Hypertension - uncontrolled - the patient's medications have been modified as documented in the visit note. The patient has been counseled to cut back on salt in diet for a no added salt diet, low fat diet, start an exercise program with low weight bearing exercises and higher aerobic activity for heart health. The patient is to check blood pressure readings as an outpatient and either fax, call, or email the readings to the office next week for practitioner to review. The pt is to call for acute concerns. Metoprolol dose increased. Foot and ankle pain - pt referred to Dr. Crouch for evaluation. Hypothyroid - continue with current medication. 04/06/2016 Appointment: Meghana Maya WPtel: [facility] [place] (15 min) Moderate 04/06/2016 Patient Education: Patient Medication Summary Completed 04/06/2016 Patient Education: Obesity Completed 04/06/2016 Care Plan: Referral Order SNOMED-CT : [id number] Pending 04/06/2016 Visit Plan: Edema-improved with lower dose of amlodipine Hypertension - uncontrolled - the patient's medications have been modified as documented in the visit note. The patient has been counseled to cut back on salt in diet for a no added salt diet, low fat diet, start an exercise program with low weight bearing exercises and higher aerobic activity for heart health. The patient is to check blood pressure readings as an outpatient and either fax , call, or email the readings to the office next week for practitioner to review. The pt is to call for acute concerns. 03/18/2016 Appointment: Catie Shoemaker WPtel: [facility]5 [phone] [place] (15 min) Moderate 03/18/2016 Patient Education: Patient Medication Summary Completed 03/18/2016 Patient Education: Obesity Completed 03/18/2016 Patient Education: Hypertension Completed 03/18/2016 Visit Plan: Hypertension - well controlled - continue with current medications, continue with no added salt diet. Pt has been encouraged to exercise daily. The pt has been advised to call the office if there are any acute concerns about change in blood pressure readings at home. 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 Patient has noticed worsening symptoms since decreasing prednisone. 03/11/2016 Appointment: Catie Shoemaker WPtel: [address] [place], [place] [id number] [place] (15 min) Moderate 03/11/2016 Patient Education: Patient Medication Summary Completed 03/11/2016 Patient Education: Obesity Completed 03/11/2016 Appointment: Catie Shoemaker WPtel: [address] [place], [place] [id number] [place] (30 min) Complex 03/09/2016 Visit Plan: Edema - pt has been advised to elevate legs to prevent dependent edema, compression has been recommended to help to naturally decrease peripheral edema. Diuretic use has been discussed and pt has been instructed in appropriate use of such medication as necessary to further attempt to reduce peripheral edema. Hypertension -tachycardia - continue with current medications, continue with no added salt diet. Pt has been encouraged to exercise daily. The pt has been advised to call the office if there are any acute concerns about change in blood pressure readings at home. Dr Maya in to evaluate patient-cut back on amlodipine to 1/2 tab daily. Add beta anuj- metoprolol 25mg daily 02/24/2016 Appointment: Catie Shoemaker WPtel: 1013 [phone] [place] (15 min) Moderate 02/24/2016 Patient Education: Patient Medication Summary Completed 02/24/2016 Patient Education: Obesity Completed 02/24/2016 Patient Education: Hypertension Completed 02/24/2016 Appointment: Meghana Maya WPtel: [facility]4 [facility] [place] (15 min) Moderate 02/23/2016 Visit Plan: Hypertension - well controlled - continue with current medications, continue with no added salt diet. Pt has been encouraged to exercise daily. The pt has been advised to call the office if there are any acute concerns about change in blood pressure readings at home. Hypothyroidism - pt with chronic hypothyroidism, continue with current medication, will monitor pt to signs or symptoms of lack of adequate supplementation. Pt is to continue with current dose of medication unless directed otherwise. Check labs at regular intervals wither q 3 months or q 6 months based on previous levels of control. 12/16/2015 Appointment: Meghana Maya WPtel: 1016 [facility] [place] (15 min) Moderate 12/16/2015 Patient Education: Patient Medication Summary Completed 12/16/2015 Patient Education: Obesity Completed 12/16/2015 Visit Plan: Hypothyroidism - pt with chronic hypothyroidism , continue with current medication, will monitor pt to signs or symptoms of lack of adequate supplementation. Pt is to continue with current dose of medication unless directed otherwise. Check labs at regular intervals wither q 3 months or q 6 months based on previous levels of control. Hypertension - well controlled - continue with current medications, continue with no added salt diet. Pt has been encouraged to exercise daily. The pt has been advised to call the office if there are any acute concerns about change in blood pressure readings at home. 10/30/2015 Visit Plan: Hypothyroidism - pt with chronic hypothyroidism , continue with current medication, will monitor pt to signs or symptoms of lack of adequate supplementation. Pt is to continue with current dose of medication unless directed otherwise. Check labs at regular intervals wither q 3 months or q 6 months based on previous levels of control. Hypertension - well controlled - continue with current medications, continue with no added salt diet. Pt has been encouraged to exercise daily. The pt has been advised to call the office if there are any acute concerns about change in blood pressure readings at home. 10/30/2015 Visit Plan: Hypertension - well controlled - continue with current medications, continue with no added salt diet. Pt has been encouraged to exercise daily. The pt has been advised to call the office if there are any acute concerns about change in blood pressure readings at home. 10/30/2015 Patient Education: Patient Medication Summary Completed 10/30/2015 Patient Education: Hypertension Completed 10/30/2015 Appointment: (30 min) Complex 10/23/2015 Appointment: Meghana Maya WPtel: [address] [place] [id number] (15 min) Moderate 10/23/2015 Visit Plan: Hypertension - uncontrolled - the patient's medications have not been changed due to acute illness causing the blood pressure to be elevated. Pt to continue with current antihypertensives and will monitor her blood pressures at home. Diarrhea - finish flagyl - start probiotic tid. 09/23/2015 Patient Education: Patient Medication Summary Completed 09/23/2015 Patient Education: Obesity Completed 09/23/2015 Patient Education: Hypertension Completed 09/23/2015 Visit Plan: Diarrhea - recommended bland diet, low fat diet , start on probiotic, and rehydrate with gatorade-like product. Pt to call if feeling worse, diarrhea becomes bloody, or does not improve with above recommendations. Pt to call for acute worsening of stomach upset or stomach pain. Hypertension - well controlled - continue with current medications, continue with no added salt diet. Pt has been encouraged to exercise daily. The pt has been advised to call the office if there are any acute concerns about change in blood pressure readings at home. 09/10/2015 Appointment: Meghana Maya [facility]Ptel: [facility] (15 min) Moderate 09/10/2015 Patient Education: Patient Medication Summary Completed 09/10/2015 Patient Education: Obesity Completed 09/10/2015 Patient Education: Hypertension Completed 09/10/2015 Visit Plan: Sinusitis - Pt has acute infection - pain in face, maxillary region, Pt informed to use decongestant, RX given to patient, sinus rinses also recommended. Call if symptoms do not show improvement. 08/12/2015 Patient Education: Patient Medication Summary Completed 08/12/2015 Patient Education: Hypertension Completed 08/12/2015 Appointment: (30 min) Complex 08/05/2015 Visit Plan: Hypertension - well controlled - continue with current medications, continue with no added salt diet. Pt has been encouraged to exercise daily. The pt has been advised to call the office if there are any acute concerns about change in blood pressure readings at home. Hypothyroid check level. Myalgia/Myositis - check CPK level, hold statin, start coenzyme q10 x 2 weeks. Pt to RTC in one week for re-eval. steroid shot today - i am worried that her decrease in steroids is too fast due to the long time she has been on steroids - she is therefore going to get a steroid shot today. 08/04/2015 Patient Education: Patient Medication Summary Completed 08/04/2015 Patient Education: Hypertension Completed 08/04/2015 Appointment: (30 min) Complex 07/24/2015 Appointment: Meghana Maya WPtel: [facility] (15 min) Moderate 07/24/2015 Appointment: Lab Draw 05/27/2015 Visit Plan: Shortness of breath, fatigue - VQ scan negative. Resting O2 sat 85% on room air, Resting O2 sat 96% on 2 L per NC. Finger tips were cyanotic while on room air, became pink after using O2. States that she gets short of breath with exertion. Will send for Chest X-ray. Will have pt use home oxygen. Will refer to cardiology and for pulmonary function testing. 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 Pt has been encouraged to exercise daily. The pt has been advised to call the office if there are any acute concerns about change in blood pressure readings at home. Hypothyroidism - pt with chronic hypothyroidism, continue with current medication, will monitor pt to signs or symptoms of lack of adequate supplementation. Pt is to continue with current dose of medication unless directed otherwise. Check labs at regular intervals wither q 3 months or q 6 months based on previous levels of control. Hyperlipidemia - pt has been counseled about appropriate diet, exercise, and need for low fat food choices. I have discussed the need for the patient to take medications as prescribed. If the patient has negative side effects from the medication, they are to CALL the office and not abruptly discontinue the medication without discussion with a practitioner in the office. We will check labs in 3-6 months for follow up on the patient's chronic medical problem and to assure normal liver response to medications. Elevated blood sugar-check Hgb A1C 04/21/2015 Patient Education: Patient Medication Summary Completed 04/21/2015 Patient Education: Hypertension Completed 04/21/2015 Care Plan: [facility] : [id number] Ordered 04/21/2015 Appointment: Meghana Maya WPtel: [facility] [place] (S[facility] New Patient 04/01/2015 Referral: Sharon Duran Referral Appointment Requested Instructions Comment . Hypertension - The patient has been counseled to cut back on salt in diet for a no added salt diet, low fat diet, start an exercise program with low weight bearing exercises and higher aerobic activity for heart health. The patient is to check blood pressure readings as an outpatient and either fax , call, or email the readings to the office next week for practitioner to review. The pt is to call for acute concerns. Hypothyroidism - pt with chronic hypothyroidism, continue with current medication, will monitor pt to signs or symptoms of lack of adequate supplementation. Pt is to continue with current dose of medication unless directed otherwise. Check labs at regular intervals wither q 3 months or q 6 months based on previous levels of control. Co-Enzyme Q10 - take daily x 2 weeks STOP the simvastatin - this may be augmenting the muscle weakness and aching . Hypertension - well controlled - continue with current medications, continue with no added salt diet. Pt has been encouraged to exercise daily. The pt has been advised to call the office if there are any acute concerns about change in blood pressure readings at home. Hypothyroid check level. Myalgia/Myositis - check CPK level, hold statin, start coenzyme q10 x 2 weeks. Pt to RTC in one week for re-eval. steroid shot today - i am worried that her decrease in steroids is too fast due to the long time she has been on steroids - she is therefore going to get a steroid shot today. Potassium 40meq tonight, then 40meq in the morning and 20meq in the evening then recheck potassium first thing tuesday so we can adjust it more if needed. Hypokalemia - will send RX for potassium and monitor labs Interstitial lung disease - pt is to follow up with specialist and notify clinic with any changes in current treatment plan . 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 CROUCH IS THE SOLDER MAKING LABORER WHO SPECIALIZES IN FOOT AND ANKLE DISEASE AT [address] INCREASE THE METOPROLOL TO 1.5 PILLS DAILY. . Hypertension - uncontrolled - the patient's medications have been modified as documented in the visit note. The patient has been counseled to cut back on salt in diet for a no added salt diet, low fat diet, start an exercise program with low weight bearing exercises and higher aerobic activity for heart health. The patient is to check blood pressure readings as an outpatient and either fax , call, or email the readings to the office next week for practitioner to review. The pt is to call for acute concerns. Metoprolol dose increased. Foot and ankle pain - pt referred to Dr. Crouch for evaluation. Hypothyroid - continue with current medication. . Left shoulder/thoracic back pain - will send RX - The pt is to use prn antiinflammatories to manage acute pain. The patient is to call the office if the pain is worsening or does not improve. Shingles - Herpes Zoster - acute in onset - pt started on acyclovir and instructed to call if symptoms worsen or if the pt is concerned about the symptoms. Pt has been advised to avoid contact with persons who may be , or infants, or immunocompromised individuals. Pt has been instructed that shingles will continue to break out and eventually scab over a two week period, until all of the vesicles are scabbed, the pt is to be considered contagious. kenalog today. URI - Pt advised to increase fluids, vitamin C. Discussed natural and expected course of this diagnosis and need to alert me if symptoms do not follow expected course, or if any worse. RX sent to patient's pharmacy. . Hypertension - well controlled - continue with current medications, continue with no added salt diet. Pt has been encouraged to exercise daily. The pt has been advised to call the office if there are any acute concerns about change in blood pressure readings at home. Hyperlipidemia - pt has been counseled about appropriate diet, exercise, and need for low fat food choices. I have discussed the need for the patient to take medications as prescribed. If the patient has negative side effects from the medication, they are to CALL the office and not abruptly discontinue the medication without discussion with a practitioner in the office. We will check labs in 3-6 months for follow up on the patient's chronic medical problem and to assure normal liver response to medications. Interstitial pulmonary disease and chronic kidney disease - defer to specialist - pt is to notify clinic with any changes in the current treatment plan DX sinusitis - discussed expected course with the patient, pt advised to call for worsening symptoms, or lack of improvement on prescribed treatment course. . Sinusitis - Pt has acute infection - pain in face, maxillary region, Pt informed to use decongestant, RX given to patient, sinus rinses also recommended. Call if symptoms do not show improvement. Capzasin cream - try a small spot on the left foot- if not too irritating - then use on a larger area of skin across the top of both feet - wear gloves when applying . Hypertension - well controlled - continue with current medications, continue with no added salt diet. Pt has been encouraged to exercise daily. The pt has been advised to call the office if there are any acute concerns about change in blood pressure readings at home. Hypothyroidism - pt with chronic hypothyroidism, continue with current medication, will monitor pt to signs or symptoms of lack of adequate supplementation. Pt is to continue with current dose of medication unless directed otherwise. Check labs at regular intervals wither q 3 months or q 6 months based on previous levels of control. Left foot pain - capzasin cream to area on foot that is painful. . Hypertension - well controlled - continue with current medications, continue with no added salt diet. Pt has been encouraged to exercise daily. The pt has been advised to call the office if there are any acute concerns about change in blood pressure readings at home. Hypothyroidism - pt with chronic hypothyroidism, continue with current medication, will monitor pt to signs or symptoms of lack of adequate supplementation. Pt is to continue with current dose of medication unless directed otherwise. Check labs at regular intervals wither q 3 months or q 6 months based on previous levels of control. . Hypertension - well controlled - continue with current medications, continue with no added salt diet. Pt has been encouraged to exercise daily. The pt has been advised to call the office if there are any acute concerns about change in blood pressure readings at home. Hyperlipidemia - pt has been counseled about appropriate diet, exercise, and need for low fat food choices. I have discussed the need for the patient to take medications as prescribed. If the patient has negative side effects from the medication, they are to CALL the office and not abruptly discontinue the medication without discussion with a practitioner in the office. We will check labs in 3-6 months for follow up on the patient's chronic medical problem and to assure normal liver response to medications. Interstitial pulmonary disease and chronic kidney disease - defer to specialist - pt is to notify clinic with any changes in the current treatment plan . Hypertension - uncontrolled - the patient's medications have not been changed due to acute illness causing the blood pressure to be elevated. Pt to continue with current antihypertensives and will monitor her blood pressures at home. Diarrhea - finish flagyl - start probiotic tid. HgbA1C today- daily prednisone for the past 2 years . Hypertension - well controlled - continue with current medications, continue with no added salt diet. Pt has been encouraged to exercise daily. The pt has been advised to call the office if there are any acute concerns about change in blood pressure readings at home. Sweats/prison use of steroids-check Hgb A1C Peripheral neuropathy-improved with N25-sihuae Dr Duran for tarsel tunnel syndrome PATIENT IS TO CHECK BLOOD PRESSURE AND HEART RATE TWO TIMES DAILY AND BRING IN A RECORD OF THE READINGS INTO THE OFFICE IN TWO WEEKS. APPOINTMENT WITH RHEUMATOLGIST AT XRAY LEFT FOOT . Hypertension - well controlled - continue with current medications, continue with no added salt diet. Pt has been encouraged to exercise daily. The pt has been advised to call the office if there are any acute concerns about change in blood pressure readings at home. 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 Patient has noticed worsening symptoms since decreasing prednisone. DECREASE AMLODIPINE TO 1/2 TAB DAILY START METOPROLOL 25MG DAILY . Edema - pt has been advised to elevate legs to prevent dependent edema, compression has been recommended to help to naturally decrease peripheral edema. Diuretic use has been discussed and pt has been instructed in appropriate use of such medication as necessary to further attempt to reduce peripheral edema. Hypertension -tachycardia - continue with current medications, continue with no added salt diet. Pt has been encouraged to exercise daily. The pt has been advised to call the office if there are any acute concerns about change in blood pressure readings at home. Dr Maya in to evaluate patient-cut back on amlodipine to 1/2 tab daily. Add beta anuj-metoprolol 25mg daily . Shortness of breath, fatigue - VQ scan negative. Resting O2 sat 85% on room air, Resting O2 sat 96% on 2 L per NC. Finger tips were cyanotic while on room air, became pink after using O2. States that she gets short of breath with exertion. Will send for Chest X-ray. Will have pt use home oxygen. Will refer to cardiology and for pulmonary function testing. . URI - Pt advised to increase fluids, vitamin C. Discussed natural and expected course of this diagnosis and need to alert me if symptoms do not follow expected course, or if any worse. RX sent to patient's pharmacy. Sinusitis - Pt has acute infection - pain in face, maxillary region, Pt informed to use decongestant, RX given to patient, sinus rinses also recommended. Call if symptoms do not show improvement. Allergies - chronic - recommended pt to use allergy medication as prescribed. Pt has been counseled as to the appropriate use of the medication. Pt to call if allergy symptoms are not controlled with the medication. If using nasal spray, instructions as follows: Nasal spray- use twice daily, one spray per nostril twice daily, after 30 minutes, rinse out nose with saline spray.. Use opposite hand per nostril to spray in the nasal steroid allergy spray. . URI - Pt advised to increase fluids, vitamin C. Discussed natural and expected course of this diagnosis and need to alert me if symptoms do not follow expected course, or if any worse. RX sent to patient's pharmacy. Sinusitis - Pt has acute infection - pain in face, maxillary region, Pt informed to use decongestant, RX given to patient, sinus rinses also recommended. Call if symptoms do not show improvement. INCREASE METOPROLOL TO 50MG DAILY . Edema-improved with lower dose of amlodipine Hypertension - uncontrolled - the patient's medications have been modified as documented in the visit note. The patient has been counseled to cut back on salt in diet for a no added salt diet, low fat diet, start an exercise program with low weight bearing exercises and higher aerobic activity for heart health. The patient is to check blood pressure readings as an outpatient and either fax , call, or email the readings to the office next week for practitioner to review. The pt is to call for acute concerns. . Sinusitis - Pt has acute infection - pain in face, maxillary region, Pt informed to use decongestant, RX given to patient, sinus rinses also recommended. Call if symptoms do not show improvement. 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 Maya - will increase clonidine to BID - pt is to consider referral to dermatology - notify clinic if symptoms do not improve, if they worsen, or with any other questions or concerns. probiotic - [place]_, probiotic pearls, etc - take three times daily x 2 weeks then 2 times daily x 1 week then daily thereafter. . Diarrhea - recommended bland diet, low fat diet, start on probiotic, and rehydrate with gatorade-like product. Pt to call if feeling worse, diarrhea becomes bloody, or does not improve with above recommendations. Pt to call for acute worsening of stomach upset or stomach pain. Hypertension - well controlled - continue with current medications, continue with no added salt diet. Pt has been encouraged to exercise daily. The pt has been advised to call the office if there are any acute concerns about change in blood pressure readings at home. . Hypertension - uncontrolled - the patient's medications have been modified as documented in the visit note. The patient has been counseled to cut back on salt in diet for a no added salt diet, low fat diet, start an exercise program with low weight bearing exercises and higher aerobic activity for heart health. The patient is to check blood pressure readings as an outpatient and either fax , call, or email the readings to the office next week for practitioner to review. The pt is to call for acute concerns. Hot Flashes - will send RX - pt is to notify clinic if symptoms do not improve, if they worsen, or with any questions or concerns. Hypothyroidism - pt with chronic hypothyroidism, continue with current medication, will monitor pt to signs or symptoms of lack of adequate supplementation. Pt is to continue with current dose of medication unless directed otherwise. Check labs at regular intervals wither q 3 months or q 6 months based on previous levels of control. . Hypothyroidism - pt with chronic hypothyroidism, continue with current medication, will monitor pt to signs or symptoms of lack of adequate supplementation. Pt is to continue with current dose of medication unless directed otherwise. Check labs at regular intervals wither q 3 months or q 6 months based on previous levels of control. Hypertension - well controlled - continue with current medications, continue with no added salt diet. Pt has been encouraged to exercise daily. The pt has been advised to call the office if there are any acute concerns about change in blood pressure readings at home. . Hypothyroidism - pt with chronic hypothyroidism, continue with current medication, will monitor pt to signs or symptoms of lack of adequate supplementation. Pt is to continue with current dose of medication unless directed otherwise. Check labs at regular intervals wither q 3 months or q 6 months based on previous levels of control. Hypertension - well controlled - continue with current medications, continue with no added salt diet. Pt has been encouraged to exercise daily. The pt has been advised to call the office if there are any acute concerns about change in blood pressure readings at home. . Hypertension - well controlled - continue with current medications, continue with no added salt diet. Pt has been encouraged to exercise daily. The pt has been advised to call the office if there are any acute concerns about change in blood pressure readings at home. Plan: ([id number]) [facility] . Hypertension - well controlled - continue with current medications, continue with no added salt diet. Pt has been encouraged to exercise daily. The pt has been advised to call the office if there are any acute concerns about change in blood pressure readings at home. Hypothyroidism - pt with chronic hypothyroidism, continue with current medication, will monitor pt to signs or symptoms of lack of adequate supplementation. Pt is to continue with current dose of medication unless directed otherwise. Check labs at regular intervals wither q 3 months or q 6 months based on previous levels of control. Hyperlipidemia - pt has been counseled about appropriate diet, exercise, and need for low fat food choices. I have discussed the need for the patient to take medications as prescribed. If the patient has negative side effects from the medication, they are to CALL the office and not abruptly discontinue the medication without discussion with a practitioner in the office. We will check labs in 3-6 months for follow up on the patient's chronic medical problem and to assure normal liver response to medications. Elevated blood sugar-check Hgb A1C
--- OUTSIDE RECORDS SUMMARY | 2018-09-30 13:24 | XMS REPORT | CCD ---
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 04/21/[address]: 225206126 Never smoker 04/21/2015 Alcohol history Unknown occasionally drinks alcohol 04/21/2015 Allergies, Adverse Reactions, Alerts Substance Reaction Codes Entered Date Inactivated Date Status [id number] REDUCTASE INHIBITORS myalgias Unknown 2015 No Inactive [...] Fill Instructions candesartan 4 mg tablet RxNorm: 451087 1 Tablet(s) PO daily 10/14/2018 Active potassium chloride ER 10 mEq tablet,extended release RxNorm: 690998 Tablet(s) TAKE ONE TABLET BY MOUTH DAILY 09/15/2018 03/13/2019 Active clonidine HCl 0.1 mg tablet RxNorm: 825899 TAKE ONE TABLET BY MOUTH TWICE A DAY 09/14/2018 02/10/2019 Active losartan 25 mg tablet RxNorm: 945640 TAKE ONE TABLET BY MOUTH DAILY 09/14/2018 11/12/2018 Active clonidine HCl 0.1 mg tablet RxNorm: 927719 Tablet(s) TAKE ONE TABLET BY MOUTH AT BEDTIME 09/13/2018 No Stop Date Active venlafaxine ER 150 mg capsule,extended release 24 hr RxNorm: 392237 TAKE ONE CAPSULE BY MOUTH DAILY 05/15/20182018 Active Lipitor 20 mg tablet RxNorm: 496641 TAKE ONE TABLET BY MOUTH DAILY 05/15/2018 11/10/2018 Active losartan 25 mg tablet RxNorm: 275737 TAKE ONE TABLET BY MOUTH DAILY 04/17/2018 07/14/2018 Inactive losartan 25 mg tablet RxNorm: 419592 TAKE ONE TABLET BY MOUTH DAILY 04/17/2018 04/16/2018 Inactive Lipitor 20 mg tablet RxNorm: 400170 1 Tablet(s) PO daily 201701/11/2018 Inactive Lipitor 20 mg tablet RxNorm: 850758 1 Tablet(s) PO daily 201705/11/2018 Inactive clonidine HCl 0.1 mg tablet RxNorm: 840060 TAKE ONE TABLET BY MOUTH TWICE A DAY 01/04/2018 07/02/2018 Inactive potassium chloride ER 10 mEq tablet,extended release RxNorm: 385473 TAKE ONE TABLET BY MOUTH DAILY 01/04/20182018 Inactive losartan 25 mg tablet RxNorm: 701600 TAKE ONE TABLET BY MOUTH DAILY 01/03/2018 04/02/2018 Inactive levothyroxine 50 mcg tablet RxNorm: 978042 1 Tablet(s) PO daily 12/08/2017 09/12/2018 Inactive losartan 25 mg tablet RxNorm: 865613 1 Tablet(s) PO daily 201701/02/2018 Inactive venlafaxine ER 150 mg capsule,extended release 24 hr RxNorm: 044827 TAKE ONE CAPSULE BY MOUTH DAILY 12/06/20172017 Inactive metoprolol succinate ER 50 mg tablet,extended release 24 hr RxNorm: 692032 TAKE ONE TABLET BY MOUTH DAILY 08/29/201701/25 Inactive metoprolol succinate ER 50 mg tablet,extended release 24 hr RxNorm: 769733 TAKE ONE TABLET BY MOUTH DAILY 08/29/201708/28 Inactive metoprolol succinate ER 50 mg tablet,extended release 24 hr RxNorm: 977222 TAKE ONE TABLET BY MOUTH DAILY 08/29/201708/28 Inactive Tamiflu 75 mg capsule RxNorm: 901726 1 Capsule(s) PO BID 201606/26/2017 Inactive Kenalog 40 mg/mL suspension for injection RxNorm: 1293194 1.5 Milliliter(s) Inj 06/22/2017 06/22/2017 Inactive clonidine HCl 0.1 mg tablet RxNorm: 576442 TAKE ONE TABLET BY MOUTH TWICE A DAY 06/06/2017 12/02/2017 Inactive potassium chloride ER 10 mEq tablet,extended release RxNorm: 251908 TAKE ONE TABLET BY MOUTH DAILY 06/06/20172017 Inactive venlafaxine ER 150 mg capsule,extended release 24 hr RxNorm: 936956 TAKE ONE CAPSULE BY MOUTH DAILY 05/23/20172017 Inactive Zithromax 500 mg tablet RxNorm: 704674 1 Tablet(s) PO daily 05/22/2017 Inactive potassium chloride ER 10 mEq tablet,extended release RxNorm: 652732 TAKE ONE TABLET BY MOUTH DAILY 04/21/20172016 Inactive potassium chloride ER 10 mEq tablet,extended release RxNorm: 713361 TAKE ONE TABLET BY MOUTH DAILY 03/16/20172016 Inactive Zithromax Z-Jacek 250 mg tablet RxNorm: 606766 1 Tablet(s) PO UD 03/02/2017 06/21/2017 Inactive venlafaxine ER 150 mg capsule,extended release 24 hr RxNorm: 567498 Capsule(s) TAKE ONE CAPSULE BY MOUTH DAILY 02/17/2017 02/16/2017 Inactive venlafaxine ER 150 mg capsule,extended release 24 hr RxNorm: 092116 TAKE ONE CAPSULE BY MOUTH DAILY 02/17/20172017 Inactive clonidine HCl 0.1 mg tablet RxNorm: 656723 TAKE ONE TABLET BY MOUTH EVERY NIGHT AT BEDTIME 02/14/2017 01/03/2018 Inactive metoprolol succinate ER 50 mg tablet,extended release 24 hr RxNorm: 486006 TAKE ONE TABLET BY MOUTH DAILY 02/14/201708/12 Inactive Protonix 40 mg tablet,delayed release RxNorm: 540973 TAKE ONE TABLET BY MOUTH DAILY WHILE ON PREDNISONE 01/25/201709/12 Inactive Zithromax Z-Jacek 250 mg tablet RxNorm: 136731 1 Tablet(s) PO UD 01/24/2017 01/03/2018 Inactive potassium chloride ER 10 mEq tablet,extended release RxNorm: 825216 TAKE ONE TABLET BY MOUTH DAILY 01/17/20172016 Inactive clonidine HCl 0.1 mg tablet RxNorm: 153248 TAKE ONE TABLET BY MOUTH EVERY NIGHT AT BEDTIME 01/17/2017 02/13/2017 Inactive potassium chloride ER 10 mEq tablet,extended release RxNorm: 406155 TAKE ONE TABLET BY MOUTH DAILY 12/16/20162016 Inactive venlafaxine ER 150 mg capsule,extended release 24 hr RxNorm: 448366 TAKE ONE CAPSULE BY MOUTH DAILY 11/18/20162016 Inactive clonidine HCl 0.1 mg tablet RxNorm: 435620 TAKE ONE TABLET BY MOUTH EVERY NIGHT AT BEDTIME 11/08/2016 01/06/2017 Inactive clonidine HCl 0.1 mg tablet RxNorm: 268583 1 Tablet(s) BID 01/16/2017 Inactive potassium chloride ER 10 mEq tablet,extended release RxNorm: 791635 TAKE ONE TABLET BY MOUTH DAILY 10/15/20162016 Inactive Zithromax Z-Jacek 250 mg tablet RxNorm: 048973 1 Tablet(s) PO UD 10/13/2016 01/03/2018 Inactive potassium chloride ER 10 mEq tablet,extended release RxNorm: 184797 TAKE ONE TABLET BY MOUTH DAILY 10/12/20162016 Inactive potassium chloride ER 10 mEq tablet,extended release RxNorm: 140429 Tablet(s) BID TAKE ONE TABLET BY MOUTH TWICE DAILY 09/17/2016 10/11/2016 Inactive potassium chloride ER 10 mEq tablet,extended release RxNorm: 174910 TAKE ONE TABLET BY MOUTH DAILY 09/13/20162016 Inactive clonidine HCl 0.1 mg tablet RxNorm: 404306 Tablet(s) TAKE ONE TABLET BY MOUTH EVERY NIGHT AT BEDTIME 08/12/20162016 Inactive gabapentin 300 mg capsule RxNorm: 610717 1 Capsule(s) PO QHS No Stop Date Active venlafaxine ER 150 mg capsule,extended release 24 hr RxNorm: 372655 TAKE ONE CAPSULE BY MOUTH DAILY 08/09/20162016 Inactive metoprolol succinate ER 50 mg tablet,extended release 24 hr RxNorm: 165974 TAKE ONE TABLET BY MOUTH DAILY 07/29/201601/24 Inactive clonidine HCl 0.1 mg tablet RxNorm: 022706 TAKE ONE TABLET BY MOUTH EVERY NIGHT AT BEDTIME 07/21/2016 08/11/2016 Inactive potassium chloride ER 10 mEq tablet,extended release RxNorm: 486790 TAKE ONE TABLET BY MOUTH DAILY 07/14/20162016 Inactive Prescriber not associated with this practice or location acyclovir 400 mg tablet RxNorm: 912932 2 Tablet(s) PO QID 07/0207/11/2016 Inactive cyclobenzaprine 5 mg tablet RxNorm: 219366 1-2 Tablet(s) PO TID as needed 07/02/2016 07/06/2016 Inactive capsaicin 0.1 % topical cream RxNorm: 614370 1 Application TOP TID as needed 07/02/2016 09/12/2018 Inactive Protonix 40 mg tablet,delayed release RxNorm: 087156 TAKE ONE TABLET BY MOUTH DAILY WHILE ON PREDNISONE 06/29/201612/25 Inactive clonidine HCl 0.1 mg tablet RxNorm: 599574 1 Tablet(s) PO QHS 06/25/2016 07/20/2016 Inactive calcium carbonate 500 mg calcium (1,250 mg) tablet RxNorm: 853825 TAKE ONE TABLET BY MOUTH DAILY WHILE ON PREDNISONE. MAY STOP TAKING WHEN PREDNISONE IS COMPLETE 06/01/2016 09/12/2018 Inactive Vitamin D3 1,000 unit tablet RxNorm: 442323 1 Tablet(s) PO daily . May stop taking once prednisone is complete. 04/26/2016 09/12/2018 Inactive metoprolol succinate ER 50 mg tablet,extended release 24 hr RxNorm: 506017 1.5 Tablet(s) PO daily 04/06/2016 06/23/2016 Inactive prednisone 10 mg tablet RxNorm: 077581 1 Tablet(s) PO daily 12/201506/21/2017 Inactive metoprolol succinate ER 50 mg tablet,extended release 24 hr RxNorm: 592040 1 Tablet(s) PO daily 03/18/2016 04/05/2016 Inactive amlodipine 10 mg tablet RxNorm: 960253 1/2 Tablet(s) PO daily 02/24/2016 06/21/2016 Inactive metoprolol succinate ER 25 mg tablet,extended release 24 hr RxNorm: 766929 1 Tablet(s) PO daily 02/24/2016 03/16/2016 Inactive calcium carbonate 500 mg calcium (1,250 mg) tablet RxNorm: 630087 TAKE ONE TABLET BY MOUTH DAILY WHILE ON PREDNISONE. MAY STOP TAKING WHEN PREDNISONE IS COMPLETE 02/16/2016 05/15/2016 Inactive Protonix 40 mg tablet,delayed release RxNorm: 464112 TAKE ONE TABLET BY MOUTH DAILY WHILE ON PREDNISONE 02/10/201605/09 Inactive venlafaxine ER 150 mg capsule,extended release 24 hr RxNorm: 664321 Capsule(s) TAKE ONE CAPSULE BY MOUTH DAILY 12/10/2015 04/07/2016 Inactive calcium carbonate 500 mg calcium (1,250 mg) tablet RxNorm: 677039 1 Tablet(s) PO daily 12/01/2015 01/29/2016 Inactive Vitamin D3 1,000 unit tablet RxNorm: 457068 1 Tablet(s) PO daily 12/01/2015 03/29/2016 Inactive levothyroxine 50 mcg tablet RxNorm: 647752 1 Tablet(s) PO daily 12/01/2015 11/24/2016 Inactive amlodipine 10 mg tablet RxNorm: 312335 1 Tablet(s) PO daily 11/18/2015 Inactive amlodipine 10 mg tablet RxNorm: 603129 1 Tablet(s) PO daily 02/23/2016 Inactive amlodipine 5 mg tablet RxNorm: 384254 1 Tablet(s) PO daily 11/18/2015 Inactive venlafaxine ER 150 mg capsule,extended release 24 hr RxNorm: 262103 TAKE ONE CAPSULE BY MOUTH DAILY 11/13/20152015 Inactive Protonix 40 mg tablet,delayed release RxNorm: 085345 1 Tablet(s) PO daily while on prednisone 2015 02/09/2016 Inactive prednisone 10 mg tablet RxNorm: 234635 2 Tablet(s) PO UD 201504/01/2016 Inactive 60mg for 2 days, then 50mg for 2 days, then 40mg for 2 days, then 30mg for 2 days, then 20mg for 2 days, then 10mg for 2 days, then 5mg for 2 days potassium chloride ER 10 mEq tablet,extended release RxNorm: 219754 TAKE ONE TABLET BY MOUTH DAILY 09/22/20152015 Inactive venlafaxine ER 150 mg capsule,extended release 24 hr RxNorm: 920480 TAKE ONE CAPSULE BY MOUTH DAILY 09/08/20152015 Inactive cefdinir 300 mg capsule RxNorm: 630104 1 Capsule(s) PO BID 08/22/2015 Inactive cefdinir 300 mg capsule RxNorm: 453807 1 Capsule(s) PO BID 08/18/2015 Inactive Kenalog 40 mg/mL suspension for injection RxNorm: 5794565 1 Milliliter(s) Inj 08/04/2015 08/04/2015 Inactive triamterene 37.5 mg-hydrochlorothiazide 25 mg tablet RxNorm: 376719 1 Tablet(s) PO BID 06/17/2015 08/03/2015 Inactive potassium chloride ER 10 mEq tablet,extended release RxNorm: 870255 1 Tablet(s) PO daily 05/30/2015 08/03/2015 Inactive Levaquin 250 mg tablet RxNorm: 824625 Tablet(s) PO UD 500 mg day one, then 250 mg day 2-7 05/27/2015 08/03/2015 Inactive prednisone 10 mg tablet RxNorm: 910773 Tablet(s) PO UD 201410/29/2015 Inactive 60mg for 2 days, then 50mg for 2 days, then 40mg for 2 days, then 30mg for 2 days, then 20mg for 2 days, then 10mg for 2 days, then 5mg for 2 days albuterol sulfate 1.25 mg/3 mL solution for nebulization RxNorm: 781017 3 Milliliter(s) INH Q4-6H as needed dyspnea 05/23/2015 09/12/2018 Inactive Zithromax 500 mg tablet RxNorm: 004763 1 Tablet(s) PO daily 05/15/2015 Inactive Zithromax 500 mg tablet RxNorm: 955639 1 Tablet(s) PO daily 05/20/2015 Inactive prednisone 20 mg tablet RxNorm: 940051 3 Tablet(s) PO daily 05/16/2015 Inactive venlafaxine ER 150 mg capsule,extended release 24 hr RxNorm: 209080 TAKE ONE CAPSULE BY MOUTH DAILY 05/12/20152015 Inactive Keflex 500 mg capsule RxNorm: 789757 1 Capsule(s) PO TID 201405/18/2015 Inactive simvastatin 20 mg tablet RxNorm: 884680 1 Tablet(s) PO daily 04/09/2015 Inactive simvastatin 20 mg tablet RxNorm: 807817 1 Tablet(s) PO daily 08/11/2015 Inactive venlafaxine ER 150 mg capsule,extended release 24 hr RxNorm: 300413 TAKE ONE CAPSULE BY MOUTH DAILY 04/08/20152014 Inactive amlodipine 5 mg tablet RxNorm: 298962 1 Tablet(s) PO daily 04/201503/06/2015 Inactive amlodipine 5 mg tablet RxNorm: 527329 1 Tablet(s) PO daily 04/201507/04/2015 Inactive venlafaxine ER 150 mg capsule,extended release 24 hr RxNorm: 596624 1 Capsule(s) PO daily 01/29/2015 03/29/2015 Inactive Co Q-10 oral RxNorm: 35830 oral No Start Date Active gabapentin 100 mg capsule RxNorm: 678470 1 Capsule(s) PO QAM No Start Date Active albuterol sulfate 1.25 mg/3 mL solution for nebulization RxNorm: 786815 3 Milliliter(s) INH Q4-6H as needed dyspnea No Start Date 05/22/2015 Inactive levothyroxine 50 mcg tablet RxNorm: 474273 1 Tablet(s) PO daily No Start Date 11/30/2015 Inactive metoprolol succinate ER 50 mg tablet,extended release 24 hr RxNorm: 849559 1 Tablet(s) PO daily No Start Date 2018 Inactive gabapentin 300 mg capsule RxNorm: 973597 1 Capsule(s) PO QHS No Start Date 08/09/2016 Inactive vitamin B complex oral RxNorm: 40784 oral No Start Date 09/12/2018 Inactive Vitamin D3 1,000 unit tablet RxNorm: 748889 1 Tablet(s) PO daily No Start Date 11/30/2015 Inactive Protonix 40 mg tablet,delayed release RxNorm: 988748 1 Tablet(s) PO daily while on prednisone No Start Date 10/30/2015 Inactive calcium carbonate oral RxNorm: oral No Start Date 11/30/2015 Inactive potassium chloride ER 10 mEq tablet,extended release RxNorm: 461626 1 Tablet(s) PO daily No Start Date 05/29/2015 Inactive Levaquin 250 mg tablet RxNorm: 086221 Tablet(s) PO UD 500 mg day one, then 250 mg day 2-7 No Start Date 05/26/2015 Inactive triamterene 37.5 mg-hydrochlorothiazide 25 mg tablet RxNorm: 255829 1 Tablet(s) PO BID No Start Date 06/16/2015 Inactive prednisone 10 mg tablet RxNorm: 905411 Tablet(s) PO UD No Start Date 05/26/2015 Inactive 60mg for 2 days, then 50mg for 2 days, then 40mg for 2 days, then 30mg for 2 days, then 20mg for 2 days, then 10mg for 2 days, then 5mg for 2 days venlafaxine ER 150 mg capsule,extended release 24 hr RxNorm: 799486 1 Capsule(s) PO daily No Start Date 01/28/2015 Inactive Medication Administered Medication Codes Instructions Start Date Status Kenalog 40 mg/mL suspension for injection RxNorm: 6818192 1.5Milliliter 06/22/2017 No longer Active Kenalog 40 mg/mL suspension for injection RxNorm: 0062375 1Milliliter 08/04/2015 No longer Active Immunizations No [...] Ord62 ANION GAP 13 09/15/2018 Comp Metabolic Gze382 NA 140 mEq/L 01/10/2018 Comp Metabolic Qrn240 K 3.8 mEq/L 01/10/2018 Comp Metabolic Oid210 CL 106 mEq/L 01/10/2018 Comp Metabolic Wdf760 CO2 25.0 mEq/L 01/10/2018 Comp Metabolic Sck173 ANION GAP 13 01/10/2018 Comp Metabolic Nux969 GLUCOSE 110 mg/dL 01/10/2018 Comp Metabolic Sge272 Creat 1.5 mg/dL 01/10/2018 Comp Metabolic Eyt000 eGFR 37 ml/min/1.73m2 01/10/2018 Comp Metabolic Uwf565 BUN 23 mg/dL 01/10/2018 Comp Metabolic Cuf505 B/C Ratio 15.3 Ratio 01/10/2018 Comp Metabolic Nyq767 CALCIUM 9.2 mg/dL 01/10/2018 Comp Metabolic Zuk083 ALK PHOS 87 U/L 01/10/2018 Comp Metabolic Lyb848 AST(SGOT) 15 U/L 01/10/2018 Comp Metabolic Utc881 ALT(SGPT) 9 U/L 01/10/2018 Comp Metabolic Jzs569 BILI T 0.4 mg/dL 01/10/2018 Comp Metabolic Dcg180 ALBUMIN 3.8 g/dL 01/10/2018 Comp Metabolic Llb156 TPRO 6.2 g/dL 01/10/2018 Comp Metabolic Xmy374 GLOB 2.4 g/dL 01/10/2018 Comp Metabolic Kom675 A/G Ratio 1.6 Ratio 01/10/2018 Comp Metabolic Bft446 Osmo 284 mOsmo 01/10/2018 C-Reactive Protein Qnt [...] 27.6 pg 01/10/2018 Cbc With Differential Ord2 [place]% 15.2 % 01/10/2018 Cbc With Differential Ord2 [...] 1.47 K/ul 01/10/2018 Cbc With Differential Ord2 [place] ABS# 1.0 K/ul 01/10/2018 Cbc With Differential Ord2 Eos ABS# 0.1 K/ul 01/10/2018 Cbc With Differential Ord2 Baso ABS# 0.0 K/ul 01/10/2018 Sed Rate Ord21 ESR 12 mm/hr 01/10/2018 Free T4 Ybq555 FREE T4 0.57 ng/dL 12/06/2017 Tsh Ord6 TSH (3rd IS) 7.40 uIU/mL 12/06/2017 C A/B FLU 0245878 Influenza A Scr Negative 06/22/2017 C A/B FLU 4490822 Influenza B Scr Negative 06/22/2017 C A/B FLU 4098129 Influenza Intrp B AG: PRID:PT:NOSE:NOM:IF See Footnote 06/22/2017 Comp Metabolic Bde019 NA 140 mEq/L 08/30/2016 Comp Metabolic Jfr455 K 3.3 mEq/L 08/30/2016 Comp Metabolic Jxb129 CL 104 mEq/L 08/30/2016 Comp Metabolic Zvi775 CO2 26.0 mEq/L 08/30/2016 Comp Metabolic Ieq604 ANION GAP 13 08/30/2016 Comp Metabolic Enl047 GLUCOSE 143 mg/dL 08/30/2016 Comp Metabolic Irc683 Creat 1.3 mg/dL 08/30/2016 Comp Metabolic Amc886 eGFR 43 ml/min/1.73m2 08/30/2016 Comp Metabolic Qrz417 BUN 19 mg/dL 08/30/2016 Comp Metabolic Owi079 B/C Ratio 14.3 Ratio 08/30/2016 Comp Metabolic Jdu557 CALCIUM 10.0 mg/dL 08/30/2016 Comp Metabolic Zha924 ALK PHOS 67 U/L 08/30/2016 Comp Metabolic Ifh980 AST(SGOT) 28 U/L 08/30/2016 Comp Metabolic Vgo298 ALT(SGPT) 43 U/L 08/30/2016 Comp Metabolic Moq056 BILI T 0.4 mg/dL 08/30/2016 Comp Metabolic Wld980 ALBUMIN 4.0 g/dL 08/30/2016 Comp Metabolic Pop366 TPRO 6.2 g/dL 08/30/2016 Comp Metabolic Zdn242 GLOB 2.2 g/dL 08/30/2016 Comp Metabolic Bnc976 A/G Ratio 1.8 Ratio 08/30/2016 Comp Metabolic Gps094 Osmo 284 mOsmo 08/30/2016 %Hba1C Owm034 % HbA1c 72350-8 6.1 % 08/30/2016 %Hba1C Zeq249 Gluc Ave 128 mg/dL 08/30/2016 Free T4 Ksq389 FREE T4 0.75 ng/dL 06/25/2016 Tsh Ord6 [...] Ord90 Mag 2.1 mg/dL 12/16/2015 Free T4 Hcw322 FREE T4 0.92 ng/dL 12/16/2015 Tsh Ord6 [...] 28.5 pg 08/04/2015 Cbc With Differential Ord2 [place]% 6.1 % 08/04/2015 Cbc With Differential Ord2 [...] 0.73 K/ul 08/04/2015 Cbc With Differential Ord2 [place] ABS# 0.5 K/ul 08/04/2015 Cbc With Differential Ord2 Eos ABS# 0.1 K/ul 08/04/2015 Cbc With Differential Ord2 Baso ABS# 0.0 K/ul 08/04/2015 Cbc With Differential Ord2 New Analyzer Notice Please note new ref ranges starting 07-09-2015 due to implemntation of new five part differential hematolgy analyzer. 08/04/2015 C-Reactive Protein Qnt Crqnt CRP 0.8 mg/dl 08/04/2015 Comp Metabolic Ssh976 NA 139 mEq/L 08/04/2015 Comp Metabolic Cpk299 K 3.4 mEq/L 08/04/2015 Comp Metabolic Sep253 CL 109 mEq/L 08/04/2015 Comp Metabolic Jpx492 CO2 22.0 mEq/L 08/04/2015 Comp Metabolic Agh297 ANION GAP 11 08/04/2015 Comp Metabolic Xox809 GLUCOSE 177 mg/dL 08/04/2015 Comp Metabolic Zac566 Creat 1.0 mg/dL 08/04/2015 Comp Metabolic Dra707 eGFR 64 ml/min/1.73m2 08/04/2015 Comp Metabolic Gou251 BUN 35 mg/dL 08/04/2015 Comp Metabolic Fat312 B/C Ratio 36.8 Ratio 08/04/2015 Comp Metabolic Gon306 CALCIUM 8.5 mg/dL 08/04/2015 Comp Metabolic Kjj362 ALK PHOS 57 U/L 08/04/2015 Comp Metabolic Wja213 AST(SGOT) 21 U/L 08/04/2015 Comp Metabolic Cev166 ALT(SGPT) 63 U/L 08/04/2015 Comp Metabolic Dbb283 BILI T 0.3 mg/dL 08/04/2015 Comp Metabolic Obi720 ALBUMIN 3.1 g/dL 08/04/2015 Comp Metabolic Lot968 TPRO 5.1 g/dL 08/04/2015 Comp Metabolic Beg704 GLOB 2.0 g/dL 08/04/2015 Comp Metabolic Gqn018 A/G Ratio 1.6 Ratio 08/04/2015 Comp Metabolic Lxw775 Osmo 290 mOsmo 08/04/2015 Cpk Ord61 CPK 52 U/L 08/04/2015 Random Urine Protein/Creatinine Ratio For2765 U Prot 8.5 mg/dl 05/27/2015 Random Urine Protein/Creatinine Ratio Fci0878 U CREAT 201.0 mg/dL 05/27/2015 Random Urine Protein/Creatinine Ratio Jgz4645 R MTP/Creat Ratio 0.04 05/27/2015 Urinalysis Ord28 [...] hours from collection if refrigerated) 05/27/2015 Renal Qld391 NA 136 mEq/L 05/26/2015 Renal Epd015 K 3.3 mEq/L 05/26/2015 Renal Aew382 CL 99 mEq/L 05/26/2015 Renal Jfd406 CO2 25.0 mEq/L 05/26/2015 Renal Ewb974 ANION GAP 15 05/26/2015 Renal Itc057 Osmo 274 mOsmo 05/26/2015 Renal Lqu622 GLUCOSE 106 mg/dL 05/26/2015 Renal Eoz518 BUN 17 mg/dL 05/26/2015 Renal Dlf439 Creat 1.4 mg/dL 05/26/2015 Renal Fjo259 eGFR 40 ml/min/1.73m2 05/26/2015 Renal Hza396 B/C Ratio 12.0 Ratio 05/26/2015 Renal Tct119 CALCIUM 9.3 mg/dL 05/26/2015 Renal Dtk540 PHOS 3.4 mg/dL 05/26/2015 Renal Pml208 ALBUMIN 3.4 g/dL 05/26/2015 Cbc With Differential [...] Ord2 RDW 14.3 % 04/21/2015 Free T4 Ndr052 FREE T4 0.91 ng/dL 04/21/2015 %Hba1C Why497 % HbA1c 98252-2 5.8 % 04/21/2015 %Hba1C Gbb730 Gluc Ave 120 mg/dL 04/21/2015 Comp Metabolic Fxs483 NA 137 mEq/L 04/21/2015 Comp Metabolic Rqh015 K 3.6 mEq/L 04/21/2015 Comp Metabolic Xoc634 CL 98 mEq/L 04/21/2015 Comp Metabolic Qst008 CO2 25.0 mEq/L 04/21/2015 Comp Metabolic Own865 ANION GAP 18 04/21/2015 Comp Metabolic Idw311 GLUCOSE 83 mg/dL 04/21/2015 Comp Metabolic Ggv328 Creat 1.6 mg/dL 04/21/2015 Comp Metabolic Mmd597 eGFR 36 ml/min/1.73m2 04/21/2015 Comp Metabolic Yea288 BUN 28 mg/dL 04/21/2015 Comp Metabolic Fnt479 B/C Ratio 17.9 Ratio 04/21/2015 Comp Metabolic Dbs544 CALCIUM 9.5 mg/dL 04/21/2015 Comp Metabolic Lmd060 ALK PHOS 60 U/L 04/21/2015 Comp Metabolic Oxd342 AST(SGOT) 22 U/L 04/21/2015 Comp Metabolic Vzg823 ALT(SGPT) 10 U/L 04/21/2015 Comp Metabolic Kvw366 BILI T 0.4 mg/dL 04/21/2015 Comp Metabolic Knm238 ALBUMIN 4.0 g/dL 04/21/2015 Comp Metabolic Bye139 TPRO 6.8 g/dL 04/21/2015 Comp Metabolic Pzp378 GLOB 2.8 g/dL 04/21/2015 Comp Metabolic Pkz430 A/G Ratio 1.4 Ratio 04/21/2015 Comp Metabolic Lcu246 Osmo 278 mOsmo 04/21/2015 Tsh Ord6 hTSH [...] Procedure Codes Date THER/PROPH/DIAG INJ SC/IM CPT-4: 51243 06/22/2017 TRIAMCINOLONE ACET INJ NOS CPT-4: J3301 06/22/2017 THER/PROPH/DIAG INJ SC/IM CPT-4: 33731 08/04/2015 TRIAMCINOLONE ACET INJ NOS CPT-4: J3301 08/04/2015 Vital Signs Date Vital 09/13/2018 Blood Pressure 1: 156/86 Code : 8480-6 BMI: 32.3 Code : 66319-7 Heart Rate 1 : 90 bpm Height: 5'1" SpO2: 98% Weight: 171 lbs 05/04/2018 Blood Pressure 1: 158/88 Code : 8480-6 BMI: 33.3 Code : 66848-1 Heart Rate 1 : 63 bpm Height: 5'1" SpO2: 98% Weight: 176 lbs 01/10/2018 Blood Pressure 1: 138/88 Code : 8480-6 BMI: 31.9 Code : 58291-6 Heart Rate 1 : 78 bpm Height: 5'1" SpO2: 99% Weight: 169 lbs 12/06/2017 Blood Pressure 1: 158/98 Code : 8480-6 BMI: 32.3 Code : 38092-3 Heart Rate 1 : 60 bpm Height: 5'1" SpO2: 100% Weight: 171 lbs 06/22/2017 Blood Pressure 1: 168/92 Code : 8480-6 BMI: 32.6 Code : 42555-5 Heart Rate 1 : 133 bpm Height: 5'1" SpO2: 97% Temperature: 37.6 (C) / 99.7 (F) Weight: 172 lbs 8 oz 03/02/2017 Blood Pressure 1: 168/90 Code : 8480-6 BMI: 35.0 Code : 21386-2 Heart Rate 1 : 80 bpm Height: 5'1" SpO2: 94% Weight: 185 lbs 01/24/2017 Blood Pressure 1: 130/68 Code : 8480-6 BMI: 35.3 Code : 32134-1 Heart Rate 1 : 66 bpm Height: 5'1" SpO2: 98% Weight: 187 lbs 10/13/2016 Blood Pressure 1: 136/74 Code : 8480-6 BMI: 35.1 Code : 03105-3 Heart Rate 1 : 71 bpm Height: 5'1" SpO2: 97% Weight: 186 lbs 08/30/2016 Blood Pressure 1: 128/80 Code : 8480-6 BMI: 35.0 Code : 59053-3 Heart Rate 1 : 75 bpm Height: 5'1" SpO2: 96% Weight: 185 lbs 8 oz 07/02/2016 Blood Pressure 1: 140/78 Code : 8480-6 Heart Rate 1: 63 bpm Height: 5'1" SpO2: 98% 06/24/2016 Blood Pressure 1: 148/100 Code: 8480-6 BMI: 34.2 Code: 96620-4 Heart Rate 1: 110 bpm Height : 5'1" SpO2: 94% Weight: 181 lbs 05/04/2016 Blood Pressure 1: 150/90 Code : 8480-6 Blood Pressure 1: 134/82 Code: 8480-6 BMI: 34.6 Code: 39445-4 Heart Rate 1: 74 bpm Height: 5'1" SpO2: 98% Weight: 183 lbs 04/06/2016 Blood Pressure 1: 156/92 Code : 8480-6 Blood Pressure 1: 158/88 Code: 8480-6 BMI: 34.8 Code: 60549-8 Heart Rate 1: 69 bpm Height: 5'1" SpO2: 97% Weight: 184 lbs 03/18/2016 Blood Pressure 1: 148/90 Code : 8480-6 BMI: 35.1 Code : 58305-9 Heart Rate 1 : 106 bpm Height: 5'1" SpO2: 94% Weight: 186 lbs 03/11/2016 Blood Pressure 1: 140/90 Code : 8480-6 BMI: 35.1 Code : 42202-9 Heart Rate 1 : 103 bpm Height: 5'1" SpO2: 96% Weight: 186 lbs 02/24/2016 Blood Pressure 1: 130/80 Code : 8480-6 BMI: 34.4 Code : 15917-9 Heart Rate 1 : 110 bpm Height: 5'1" SpO2: 96% Weight: 182 lbs 12/16/2015 Blood Pressure 1: 144/98 Code : 8480-6 BMI: 33.8 Code : 32190-7 Heart Rate 1 : 97 bpm Height: 5'1" SpO2: 98% Weight: 179 lbs 10/30/2015 Blood Pressure 1: 138/88 Code : 8480-6 BMI: 33.6 Code : 19572-4 Heart Rate 1 : 88 bpm Height: 5'1" SpO2: 98% Weight: 178 lbs 09/23/2015 Blood Pressure 1: 152/94 Code : 8480-6 BMI: 32.7 Code : 94655-8 Heart Rate 1 : 83 bpm Height: 5'1" SpO2: 97% Weight: 173 lbs 09/10/2015 Blood Pressure 1: 136/82 Code : 8480-6 BMI: 32.1 Code : 13825-9 Heart Rate 1 : 105 bpm Height: 5'1" SpO2: 97% Weight: 170 lbs 08/12/2015 Blood Pressure 1: 132/70 Code : 8480-6 BMI: 31.2 Code : 91889-9 Heart Rate 1 : 88 bpm Height: 5'1" SpO2: 95% Temperature: 36.7 (C) / 98.0 (F) Weight: 165 lbs 08/04/2015 Blood Pressure 1: 136/80 Code : 8480-6 BMI: 31.0 Code : 39795-6 Heart Rate 1 : 110 bpm Height: 5'1" SpO2: 98% Weight: 164 lbs 05/16/2015 Blood Pressure 1: 138/88 Code : 8480-6 BMI: 32.9 Code : 63975-3 Heart Rate 1 : 87 bpm Height: 5'1" SpO2: 90% Weight: 174 lbs 05/12/2015 BMI: 31.7 Code: 93518-2 Height: 5'1" Weight: 168 lbs 04/21/2015 Blood Pressure 1: 124/82 Code : 8480-6 BMI: 32.1 Code : 96584-9 Heart Rate 1 : 87 bpm Height: [...] pulmonary disease, unspecified[ICD10: J84.9] Britney Maya MD, [facility] CPT-4: 78681 09/13/2018 [id number] EST. PATIENT, LEVEL IV Diagnosis: Essential (primary) hypertension[ICD10: I10] Diagnosis: Interstitial pulmonary disease, unspecified[ICD10: J84.9] Diagnosis: Chronic kidney disease, stage 3 (moderate)[ICD10: N18.3] Diagnosis: Mixed hyperlipidemia[ICD10: E78.2] Britney Maya MD, [facility] CPT-4: 01227 05/04/2018 71351 EST. PATIENT, LEVEL IV Diagnosis: Essential (primary) hypertension[ICD10: I10] Diagnosis: Interstitial pulmonary disease, unspecified[ICD10: J84.9] Diagnosis: Chronic kidney disease, stage 3 (moderate)[ICD10: N18.3] Diagnosis: Mixed hyperlipidemia[ICD10: E78.2] Britney Maya MD, [facility] CPT-4: 28294 01/10/2018 55211 EST. PATIENT, LEVEL IV Diagnosis: Other specified hypothyroidism[ICD10: E03.8] Diagnosis: Essential (primary) hypertension[ICD10: I10] Britney Maya MD, [facility] CPT-4: 26952 12/06/2017 44650 EST. PATIENT, LEVEL IV Diagnosis: Other malaise[ICD10: R53.81] Diagnosis: Other fatigue[ICD10: R53.83] Britney Maya MD, [facility] CPT-4 : 31306 06/22/2017 60607 EST. PATIENT, LEVEL IV Diagnosis: Acute laryngopharyngitis[ICD10: J06.0] Diagnosis: Other acute sinusitis[ICD10: J01.80] Diagnosis: Other allergic rhinitis[ICD10: J30.89] Britney Maya MD, [facility] CPT-4: 93183 03/02/2017 76927 EST. PATIENT, LEVEL IV Diagnosis: Generalized hyperhidrosis[ICD10: R61] Diagnosis: Other acute sinusitis[ICD10: J01.80] Diagnosis: Other fatigue[ICD10: R53.83] Diagnosis: Interstitial pulmonary disease, unspecified[ICD10: J84.9] Britney Maya MD, [facility] CPT-4: 49368 01/24/2017 49792 EST. PATIENT, LEVEL IV Diagnosis: Acute laryngopharyngitis[ICD10: J06.0] Diagnosis: Other acute sinusitis[ICD10: J01.80] Britney Maya MD, [facility] CPT-4: 30751 10/13/2016 ([id number]) 34812 EST. 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 PATIENT, LEVEL IV Diagnosis: Pain in thoracic spine[ICD10: M54.6] Diagnosis: Pain in left shoulder[ICD10: M25.512] Diagnosis: Zoster without complications[ICD10: B02.9] Britney Maya MD, [facility] CPT-4: 67151 07/02/2016 94396 EST. PATIENT, LEVEL III Diagnosis: Other specified hypothyroidism[ICD10: E03.8] Diagnosis: Menopausal and female climacteric states[ICD10: N95.1] Diagnosis: Essential (primary) hypertension[ICD10: I10] Britney Maya MD, [facility] CPT-4: 31736 06/24/2016 ([id number]) 06775 EST. PATIENT, LEVEL IV Diagnosis: Essential (primary) hypertension[ICD10: I10] Diagnosis: Atrophy of thyroid (acquired)[ICD10: E03.4] Diagnosis: Pain in left foot[ICD10: M79.672] Meghana Maya MD, [facility] CPT-4: 09775 05/04/2016 ([id number]) 78775 EST. PATIENT, LEVEL IV Diagnosis: Essential (primary) hypertension[ICD10: I10] Diagnosis: Pain in left leg[ICD10: M79.605] Diagnosis: Pain in left foot[ICD10: M79.672] Diagnosis: Atrophy of thyroid (acquired)[ICD10: E03.4] Meghana Maya MD, [facility] CPT-4: 27761 04/06/2016 ([id number]) 42224 EST. PATIENT, LEVEL III Diagnosis: Essential (primary) hypertension[ICD10: I10] Diagnosis: Localized edema[ICD10: R60.0] Catie Maya MD, [facility] CPT-4: 01461 03/18/2016 ([id number]) 06151 EST. PATIENT, LEVEL III Diagnosis: Essential (primary) hypertension[ICD10: I10] Diagnosis: Pain in left foot[ICD10: M79.672] Catie Maya MD, [facility] CPT-4: 09878 03/11/2016 ([id number]) 40154 EST. PATIENT, LEVEL III Diagnosis: Localized edema[ICD10: R60.0] Diagnosis: Essential (primary) hypertension[ICD10: I10] Catie Maya MD, [facility] CPT-4: 29159 02/24/2016 ([id number]) 92239 EST. PATIENT, LEVEL IV Diagnosis: Hypothyroidism, unspecified[ICD10: E03.9] Diagnosis: Essential (primary) hypertension[ICD10: I10] Meghana Maya MD, [facility] CPT-4: 79652 12/16/2015 ([id number]) 56292 EST. PATIENT, LEVEL III Diagnosis: Essential (primary) hypertension[ICD10: I10] Diagnosis: Hypothyroidism, unspecified[ICD10: E03.9] Meghana Maya MD, [facility] CPT-4: 97097 10/30/2015 [id number]) 40970 EST. PATIENT, LEVEL IV Diagnosis: Diarrhea, unspecified[ICD10: R19.7] Diagnosis: Essential (primary) hypertension[ICD10: I10] Meghana Maya MD, [facility] CPT-4: 39588 09/23/2015 ([id number]) 25554 EST. PATIENT, LEVEL III Diagnosis: Essential (primary) hypertension[ICD10: I10] Diagnosis: Diarrhea, unspecified[ICD10: R19.7] Meghana Maya MD, [facility] CPT-4: 68542 09/10/2015 ([id number]) 33298 EST. PATIENT, LEVEL III Diagnosis: Acute maxillary sinusitis, unspecified[ICD10: J01.00] Diagnosis: Myositis, unspecified[ICD10: M60.9] Meghana Maya MD, [facility] CPT-4: 98200 08/12/2015 ([id number]) 66063 EST. PATIENT, LEVEL IV Diagnosis: Essential (primary) hypertension[ICD10: I10] Diagnosis: Pain in left leg[ICD10: M79.605] Diagnosis: Other myositis, multiple sites[ICD10: M60.89] Diagnosis: Hypothyroidism, unspecified[ICD10: E03.9] Meghana Maya MD, [facility] CPT-4: 66251 08/04/2015 58849 EST. PATIENT, LEVEL III Diagnosis: Dyspnea, unspecified[ICD10: R06.00] Diagnosis: Essential (primary) hypertension[ICD10: I10] Meghana Maya MD, [facility] CPT-4: 35644 05/16/2015 ([id number]) 45926 EST. PATIENT, LEVEL II Diagnosis: Dyspnea, unspecified[ICD10: R06.00] Meghana Maya MD, [facility] CPT-4: 67646 05/12/2015 ([id number]) OFFICE VISIT, NEW - LEVEL 4 Diagnosis: Essential (primary) hypertension[ICD10: I10] Diagnosis: Impaired fasting glucose[ICD10: R73.01] Diagnosis: Mixed hyperlipidemia[ICD10: E78.2] Diagnosis: Hypothyroidism, unspecified[ICD10: E03.9] Diagnosis: Encounter for screening mammogram for malignant neoplasm of breast[ ICD10: Z12.31] Catie Maya MD, [facility] CPT-4: 32417 04/21/2015 Plan of Care Planned Activity Notes Codes Status Date Visit Plan: Hypokalemia - will send RX for potassium and monitor labs Interstitial lung disease - pt is to follow up with specialist and notify clinic with any changes in current treatment plan 09/13/2018 [phone] ([facility] Complex 09/13/2018 Patient Education: Patient [...] treatment plan 05/04/2018 Appointment[phone] ([facility] min) Moderate 05/04/2018 Patient Education: Patient [...] treatment plan 01/10/2018 App[facility]ment[phone] (30 min) Complex 01/10/2018 Patient Education: Patient [...] levels of control. 12/06/2017 Appointment: Britney Bowerl: [facility]7 [facility] (15 min) Moderate 12/06/2017 Patient Education: Patient Medication Summary Completed 12/06/2017 Visit Plan: URI - Pt advised to increase fluids, vitamin C. Discussed natural and expected course of this diagnosis and need to alert me if symptoms do not follow expected course, or if any worse. RX sent to patient' s pharmacy. 06/22/2017 Appointment: Britney Bowerl: [phone] [facility] (15 min) Moderate 06/22/2017 Patient Education: Patient [...] spray. 03/02/2017 Appointment: Britney Bower WPtel: [phone] [facility] (10 min) Simple 03/02/2017 Patient Education: Patient Medication Summary Completed 03/02/2017 Patient Education: Obesity Completed 03/02/2017 Visit Plan: Sinusitis - Pt has acute infection - pain in face, maxillary region, Pt informed to use decongestant, RX given to patient, sinus rinses also recommended. Call if symptoms do not show improvement. 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 Maya - will increase clonidine to BID - pt is to consider referral to dermatology - notify clinic if symptoms do not improve, if they worsen, or with any other questions or concerns. 01/24/2017 Appointment: Britney Bower WPtel: [facility]5 [facility] (30 min) Complex 01/24/2017 Patient Education: [...] show improvement. 10/13/2016 Appointment: Britney Bower WPtel: [facility]5 [facility] (30 min) Complex 10/13/2016 Patient Education: [...] change in blood pressure readings at home. 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 07/02/2016 Appointment: Britney Bower WPtel: [facility] ([facility] 07/02/2016 Patient Education: Patient [...] control. 06/24/2016 Appointment: [phone] ([facility] min) Complex 06/24/2016 Patient Education: Patient Medication Summary Completed 06/24/2016 Patient Education: Obesity Completed 06/24/2016 Patient Education: Hypertension Completed 06/24/2016 Patient Education: Patient Medication Summary Completed 05/14/2016 Care Plan: [facility] : 07601-2 Pending 05/14/2016 Visit Plan: Hypertension - well [...] painful. 05/04/2016 [facility]ment[phone] ([facility] min) Moderate 05/04/2016 Patient Education: [...] current medication. 04/06/2016 Appointment: Meghana Maya WPtel: [facility] [place] (15 min) Moderate 04/06/2016 Patient Education: Patient Medication Summary Completed 04/06/2016 Patient Education: Obesity Completed 04/06/2016 Care Plan: Referral Order SNOMED-CT : [id number] Pending 04/06/2016 Visit Plan: Edema-improved with lower [...] acute concerns. 03/18/2016 Appointment: Catie Shoemaker WPtel: [facility]5 [phone] [place] (15 min) Moderate 03/18/2016 Patient [...] xray left foot-recommend she follow up with venetian blind maker at regarding left foot pain/numbness/weakness. Patient has noticed worsening symptoms since decreasing prednisone. 03/11/2016 Appointment: Catie Shoemaker WPtel: [address] [place], [place] [phone] [place] (15 min) Moderate 03/11/2016 Patient Education: Patient Medication Summary Completed 03/11/2016 Patient Education: Obesity Completed 03/11/2016 Appointment: Catie Shoemaker WPtel: [address] [place], [place] [phone] [place] (30 min) Complex 03/09/2016 Visit Plan: [...] daily 02/24/2016 Appointment: Catie Shoemaker WPtel: [phone] [phone] [place] (15 min) Moderate 02/24/2016 Patient Education: Patient Medication Summary Completed 02/24/2016 Patient Education: Obesity Completed 02/24/2016 Patient Education: Hypertension Completed 02/24/2016 Appointment: Meghana Maya WPtel: [facility]3 [facility] [place] (15 min) Moderate 02/23/2016 Visit Plan: [...] of control. 12/16/2015 Appointment: Meghana Maya WPtel: [phone] [facility] [place] (15 min) Moderate 12/16/2015 Patient Education: [...] min) Complex 10/23/2015 Appointment: Meghana Maya WPtel: [address] [place] [address] (15 min) Moderate 10/23/2015 Visit Plan: Hypertension [...] home. 09/10/2015 Appointment: [phone] ([facility] min) Moderate 09/10/2015 Patient Education: [...] Complex 07/24/2015 Appointment: [phone] [facility] (15 min) Moderate 07/24/2015 Appointment: Lab [...] Completed 04/21/2015 Care Plan: [facility] : 61169-5 Ordered 04/21/2015 Appointment: Meghana Maya WPtel: [facility] [place] ([place] New Patient 04/01/2015 Referral: Sharon Duran Referral Appointment Requested Instructions Comment Co-Enzyme Q10 - take daily x 2 [...] with any changes in current treatment plan DECREASE AMLODIPINE TO 1/2 TAB DAILY START [...] daily. Add beta anuj-metoprolol 25mg daily . Hypertension - uncontrolled - the patient's [...] months based on previous levels of control. Plan: ([id number]) [facility] . Hypertension - well [...] to medications. Elevated blood sugar-check Hgb A1C PATIENT IS TO CHECK BLOOD PRESSURE AND [...] xray left foot-recommend she follow up with venetian blind maker at regarding left foot pain/numbness/weakness. Patient has noticed worsening symptoms since decreasing prednisone. HgbA1C today- daily prednisone for the past 2 years . Hypertension - well controlled - continue with current medications, continue with no added salt diet. Pt has been encouraged to exercise daily. The pt has been advised to call the office if there are any acute concerns about change in blood pressure readings at home. 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 Hypertension - uncontrolled - the patient's medications have not been changed due to acute illness causing the blood pressure to be elevated. Pt to continue with current antihypertensives and will monitor her blood pressures at home. Diarrhea - finish flagyl - start probiotic tid. . Hypertension - well controlled - continue [...] any changes in the current treatment plan kenalog today. URI - Pt advised to increase fluids, vitamin C. Discussed natural and expected course of this diagnosis and need to alert me if symptoms do not follow expected course, or if any worse. RX sent to patient's pharmacy. . Left shoulder/thoracic back pain - will [...] the pt is to be considered contagious. DR. CROUCH IS THE SUPPLY CHAIN PLANNER WHO SPECIALIZES IN FOOT AND ANKLE DISEASE AT [address] INCREASE THE METOPROLOL TO 1.5 PILLS [...] Hypothyroid - continue with current medication. . Hypertension - The patient has been [...] change in blood pressure readings at home. probiotic - [employer], probiotic pearls, etc - take three times [...] in blood pressure readings at home. . Sinusitis - Pt has acute infection - pain in face, maxillary region, Pt informed to use decongestant, RX given to patient, sinus rinses also recommended. Call if symptoms do not show improvement. 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 Maya - will increase clonidine to BID - pt is to consider referral to dermatology - notify clinic if symptoms do not improve, if they worsen, or with any other questions or concerns. INCREASE METOPROLOL TO 50MG DAILY . Edema-improved [...] is to call for acute concerns. . Shortness of breath, fatigue - VQ [...] cardiology and for pulmonary function testing. . Hypertension - well controlled - continue [...] months based on previous levels of control. Capzasin cream - try a small spot [...] to area on foot that is painful. DX sinusitis - discussed expected course with the patient, pt advised to call for worsening symptoms, or lack of improvement on prescribed treatment course. . Sinusitis - Pt has acute infection - pain in face, maxillary region, Pt informed to use decongestant, RX given to patient, sinus rinses also recommended. Call if symptoms do not show improvement. . Hypertension - well controlled - continue [...] changes in the current treatment plan . 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 Hypertension - well controlled - continue [...] in blood pressure readings at home. . URI - Pt advised to increase [...] Call if symptoms do not show improvement. . URI - Pt advised to increase [...]
--- OUTSIDE RECORDS SUMMARY | 2018-09-30 13:27 | XMS REPORT | CCD ---
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 04/21/[address]: 190479963 Never smoker 04/21/2015 Alcohol history Unknown occasionally drinks alcohol 04/21/2015 Allergies, Adverse Reactions, Alerts Substance Reaction Codes Entered Date Inactivated Date Status [id number] REDUCTASE INHIBITORS myalgias Unknown 2015 No Inactive Date Active Past Medical History Illness Codes Condition Status Onset Date Resolved Date Chronic kidney disease, stage 3 (moderate) ICD-9: 585.3 ICD-10: N18.3 Active 05/04/2018 Unknown Essential (primary) hypertension ICD-9: 401.1 ICD-10: I10 Active 08/30/2016 Unknown Interstitial pulmonary disease, unspecified ICD-9: 515 ICD-10: J84.9 Active 01/24/2017 Unknown Mixed hyperlipidemia ICD-9: 272.2 ICD-10: E78.2 [...] Problems Condition Codes Effective Dates Condition Status Chronic kidney disease, stage 3 (moderate) ICD-9: 585.3 ICD-10: N18.3 05/04/2018 Active Essential (primary) hypertension ICD-9: 401.1 ICD-10: I10 08/30/2016 Active Interstitial pulmonary disease, unspecified ICD-9: 515 ICD-10: J84.9 01/24/2017 Active Mixed hyperlipidemia ICD-9: 272.2 ICD-10: E78.2 [...] Fill Instructions candesartan 4 mg tablet RxNorm: 481138 1 Tablet(s) PO daily 10/14/2018 Active potassium chloride ER 10 mEq tablet,extended release RxNorm: 367980 Tablet(s) TAKE ONE TABLET BY MOUTH DAILY 09/15/2018 03/13/2019 Active clonidine HCl 0.1 mg tablet RxNorm: 392906 TAKE ONE TABLET BY MOUTH TWICE A DAY 09/14/2018 02/10/2019 Active losartan 25 mg tablet RxNorm: 880650 TAKE ONE TABLET BY MOUTH DAILY 09/14/2018 11/12/2018 Active clonidine HCl 0.1 mg tablet RxNorm: 230858 Tablet(s) TAKE ONE TABLET BY MOUTH AT BEDTIME 09/13/2018 No Stop Date Active venlafaxine ER 150 mg capsule,extended release 24 hr RxNorm: 492518 TAKE ONE CAPSULE BY MOUTH DAILY 05/15/20182018 Active Lipitor 20 mg tablet RxNorm: 596658 TAKE ONE TABLET BY MOUTH DAILY 05/15/2018 11/10/2018 Active losartan 25 mg tablet RxNorm: 107720 TAKE ONE TABLET BY MOUTH DAILY 04/17/2018 07/14/2018 Inactive losartan 25 mg tablet RxNorm: 175755 TAKE ONE TABLET BY MOUTH DAILY 04/17/2018 04/16/2018 Inactive Lipitor 20 mg tablet RxNorm: 874869 1 Tablet(s) PO daily 201701/11/2018 Inactive Lipitor 20 mg tablet RxNorm: 436968 1 Tablet(s) PO daily 201705/11/2018 Inactive clonidine HCl 0.1 mg tablet RxNorm: 985762 TAKE ONE TABLET BY MOUTH TWICE A DAY 01/04/2018 07/02/2018 Inactive potassium chloride ER 10 mEq tablet,extended release RxNorm: 442149 TAKE ONE TABLET BY MOUTH DAILY 01/04/20182018 Inactive losartan 25 mg tablet RxNorm: 900358 TAKE ONE TABLET BY MOUTH DAILY 01/03/2018 04/02/2018 Inactive levothyroxine 50 mcg tablet RxNorm: 954088 1 Tablet(s) PO daily 12/08/2017 09/12/2018 Inactive losartan 25 mg tablet RxNorm: 023290 1 Tablet(s) PO daily 201701/02/2018 Inactive venlafaxine ER 150 mg capsule,extended release 24 hr RxNorm: 149560 TAKE ONE CAPSULE BY MOUTH DAILY 12/06/20172017 Inactive metoprolol succinate ER 50 mg tablet,extended release 24 hr RxNorm: 747400 TAKE ONE TABLET BY MOUTH DAILY 08/29/201701/25 Inactive metoprolol succinate ER 50 mg tablet,extended release 24 hr RxNorm: 894146 TAKE ONE TABLET BY MOUTH DAILY 08/29/201708/28 Inactive metoprolol succinate ER 50 mg tablet,extended release 24 hr RxNorm: 259966 TAKE ONE TABLET BY MOUTH DAILY 08/29/201708/28 Inactive Tamiflu 75 mg capsule RxNorm: 664615 1 Capsule(s) PO BID 201606/26/2017 Inactive Kenalog 40 mg/mL suspension for injection RxNorm: 4572386 1.5 Milliliter(s) Inj 06/22/2017 06/22/2017 Inactive clonidine HCl 0.1 mg tablet RxNorm: 555207 TAKE ONE TABLET BY MOUTH TWICE A DAY 06/06/2017 12/02/2017 Inactive potassium chloride ER 10 mEq tablet,extended release RxNorm: 032297 TAKE ONE TABLET BY MOUTH DAILY 06/06/20172017 Inactive venlafaxine ER 150 mg capsule,extended release 24 hr RxNorm: 750470 TAKE ONE CAPSULE BY MOUTH DAILY 05/23/20172017 Inactive Zithromax 500 mg tablet RxNorm: 716629 1 Tablet(s) PO daily 05/22/2017 Inactive potassium chloride ER 10 mEq tablet,extended release RxNorm: 527137 TAKE ONE TABLET BY MOUTH DAILY 04/21/20172016 Inactive potassium chloride ER 10 mEq tablet,extended release RxNorm: 411041 TAKE ONE TABLET BY MOUTH DAILY 03/16/20172016 Inactive Zithromax Z-Jacek 250 mg tablet RxNorm: 550315 1 Tablet(s) PO UD 03/02/2017 06/21/2017 Inactive venlafaxine ER 150 mg capsule,extended release 24 hr RxNorm: 781966 Capsule(s) TAKE ONE CAPSULE BY MOUTH DAILY 02/17/2017 02/16/2017 Inactive venlafaxine ER 150 mg capsule,extended release 24 hr RxNorm: 051882 TAKE ONE CAPSULE BY MOUTH DAILY 02/17/20172017 Inactive clonidine HCl 0.1 mg tablet RxNorm: 578995 TAKE ONE TABLET BY MOUTH EVERY NIGHT AT BEDTIME 02/14/2017 01/03/2018 Inactive metoprolol succinate ER 50 mg tablet,extended release 24 hr RxNorm: 253867 TAKE ONE TABLET BY MOUTH DAILY 02/14/201708/12 Inactive Protonix 40 mg tablet,delayed release RxNorm: 680825 TAKE ONE TABLET BY MOUTH DAILY WHILE ON PREDNISONE 01/25/201709/12 Inactive Zithromax Z-Jacek 250 mg tablet RxNorm: 166048 1 Tablet(s) PO UD 01/24/2017 01/03/2018 Inactive potassium chloride ER 10 mEq tablet,extended release RxNorm: 949815 TAKE ONE TABLET BY MOUTH DAILY 01/17/20172016 Inactive clonidine HCl 0.1 mg tablet RxNorm: 910654 TAKE ONE TABLET BY MOUTH EVERY NIGHT AT BEDTIME 01/17/2017 02/13/2017 Inactive potassium chloride ER 10 mEq tablet,extended release RxNorm: 918467 TAKE ONE TABLET BY MOUTH DAILY 12/16/20162016 Inactive venlafaxine ER 150 mg capsule,extended release 24 hr RxNorm: 175598 TAKE ONE CAPSULE BY MOUTH DAILY 11/18/20162016 Inactive clonidine HCl 0.1 mg tablet RxNorm: 344684 TAKE ONE TABLET BY MOUTH EVERY NIGHT AT BEDTIME 11/08/2016 01/06/2017 Inactive clonidine HCl 0.1 mg tablet RxNorm: 945387 1 Tablet(s) BID 01/16/2017 Inactive potassium chloride ER 10 mEq tablet,extended release RxNorm: 468714 TAKE ONE TABLET BY MOUTH DAILY 10/15/20162016 Inactive Zithromax Z-Jacek 250 mg tablet RxNorm: 231562 1 Tablet(s) PO UD 10/13/2016 01/03/2018 Inactive potassium chloride ER 10 mEq tablet,extended release RxNorm: 615140 TAKE ONE TABLET BY MOUTH DAILY 10/12/20162016 Inactive potassium chloride ER 10 mEq tablet,extended release RxNorm: 506426 Tablet(s) BID TAKE ONE TABLET BY MOUTH TWICE DAILY 09/17/2016 10/11/2016 Inactive potassium chloride ER 10 mEq tablet,extended release RxNorm: 148289 TAKE ONE TABLET BY MOUTH DAILY 09/13/20162016 Inactive clonidine HCl 0.1 mg tablet RxNorm: 075078 Tablet(s) TAKE ONE TABLET BY MOUTH EVERY NIGHT AT BEDTIME 08/12/20162016 Inactive gabapentin 300 mg capsule RxNorm: 387657 1 Capsule(s) PO QHS No Stop Date Active venlafaxine ER 150 mg capsule,extended release 24 hr RxNorm: 742717 TAKE ONE CAPSULE BY MOUTH DAILY 08/09/20162016 Inactive metoprolol succinate ER 50 mg tablet,extended release 24 hr RxNorm: 924482 TAKE ONE TABLET BY MOUTH DAILY 07/29/201601/24 Inactive clonidine HCl 0.1 mg tablet RxNorm: 369924 TAKE ONE TABLET BY MOUTH EVERY NIGHT AT BEDTIME 07/21/2016 08/11/2016 Inactive potassium chloride ER 10 mEq tablet,extended release RxNorm: 502038 TAKE ONE TABLET BY MOUTH DAILY 07/14/20162016 Inactive Prescriber not associated with this practice or location acyclovir 400 mg tablet RxNorm: 856750 2 Tablet(s) PO QID 07/0207/11/2016 Inactive cyclobenzaprine 5 mg tablet RxNorm: 706330 1-2 Tablet(s) PO TID as needed 07/02/2016 07/06/2016 Inactive capsaicin 0.1 % topical cream RxNorm: 645028 1 Application TOP TID as needed 07/02/2016 09/12/2018 Inactive Protonix 40 mg tablet,delayed release RxNorm: 405299 TAKE ONE TABLET BY MOUTH DAILY WHILE ON PREDNISONE 06/29/201612/25 Inactive clonidine HCl 0.1 mg tablet RxNorm: 793301 1 Tablet(s) PO QHS 06/25/2016 07/20/2016 Inactive calcium carbonate 500 mg calcium (1,250 mg) tablet RxNorm: 887980 TAKE ONE TABLET BY MOUTH DAILY WHILE ON PREDNISONE. MAY STOP TAKING WHEN PREDNISONE IS COMPLETE 06/01/2016 09/12/2018 Inactive Vitamin D3 1,000 unit tablet RxNorm: 898082 1 Tablet(s) PO daily . May stop taking once prednisone is complete. 04/26/2016 09/12/2018 Inactive metoprolol succinate ER 50 mg tablet,extended release 24 hr RxNorm: 796321 1.5 Tablet(s) PO daily 04/06/2016 06/23/2016 Inactive prednisone 10 mg tablet RxNorm: 884728 1 Tablet(s) PO daily 12/201506/21/2017 Inactive metoprolol succinate ER 50 mg tablet,extended release 24 hr RxNorm: 590191 1 Tablet(s) PO daily 03/18/2016 04/05/2016 Inactive amlodipine 10 mg tablet RxNorm: 364400 1/2 Tablet(s) PO daily 02/24/2016 06/21/2016 Inactive metoprolol succinate ER 25 mg tablet,extended release 24 hr RxNorm: 656720 1 Tablet(s) PO daily 02/24/2016 03/16/2016 Inactive calcium carbonate 500 mg calcium (1,250 mg) tablet RxNorm: 662468 TAKE ONE TABLET BY MOUTH DAILY WHILE ON PREDNISONE. MAY STOP TAKING WHEN PREDNISONE IS COMPLETE 02/16/2016 05/15/2016 Inactive Protonix 40 mg tablet,delayed release RxNorm: 153909 TAKE ONE TABLET BY MOUTH DAILY WHILE ON PREDNISONE 02/10/201605/09 Inactive venlafaxine ER 150 mg capsule,extended release 24 hr RxNorm: 560738 Capsule(s) TAKE ONE CAPSULE BY MOUTH DAILY 12/10/2015 04/07/2016 Inactive calcium carbonate 500 mg calcium (1,250 mg) tablet RxNorm: 325993 1 Tablet(s) PO daily 12/01/2015 01/29/2016 Inactive Vitamin D3 1,000 unit tablet RxNorm: 938708 1 Tablet(s) PO daily 12/01/2015 03/29/2016 Inactive levothyroxine 50 mcg tablet RxNorm: 299901 1 Tablet(s) PO daily 12/01/2015 11/24/2016 Inactive amlodipine 10 mg tablet RxNorm: 064075 1 Tablet(s) PO daily 11/18/2015 Inactive amlodipine 10 mg tablet RxNorm: 189002 1 Tablet(s) PO daily 02/23/2016 Inactive amlodipine 5 mg tablet RxNorm: 236657 1 Tablet(s) PO daily 11/18/2015 Inactive venlafaxine ER 150 mg capsule,extended release 24 hr RxNorm: 408510 TAKE ONE CAPSULE BY MOUTH DAILY 11/13/20152015 Inactive Protonix 40 mg tablet,delayed release RxNorm: 448612 1 Tablet(s) PO daily while on prednisone 2015 02/09/2016 Inactive prednisone 10 mg tablet RxNorm: 775972 2 Tablet(s) PO UD 201504/01/2016 Inactive 60mg for 2 days, then 50mg for 2 days, then 40mg for 2 days, then 30mg for 2 days, then 20mg for 2 days, then 10mg for 2 days, then 5mg for 2 days potassium chloride ER 10 mEq tablet,extended release RxNorm: 146207 TAKE ONE TABLET BY MOUTH DAILY 09/22/20152015 Inactive venlafaxine ER 150 mg capsule,extended release 24 hr RxNorm: 386793 TAKE ONE CAPSULE BY MOUTH DAILY 09/08/20152015 Inactive cefdinir 300 mg capsule RxNorm: 764654 1 Capsule(s) PO BID 08/22/2015 Inactive cefdinir 300 mg capsule RxNorm: 137661 1 Capsule(s) PO BID 08/18/2015 Inactive Kenalog 40 mg/mL suspension for injection RxNorm: 5852674 1 Milliliter(s) Inj 08/04/2015 08/04/2015 Inactive triamterene 37.5 mg-hydrochlorothiazide 25 mg tablet RxNorm: 090954 1 Tablet(s) PO BID 06/17/2015 08/03/2015 Inactive potassium chloride ER 10 mEq tablet,extended release RxNorm: 846868 1 Tablet(s) PO daily 05/30/2015 08/03/2015 Inactive Levaquin 250 mg tablet RxNorm: 406416 Tablet(s) PO UD 500 mg day one, then 250 mg day 2-7 05/27/2015 08/03/2015 Inactive prednisone 10 mg tablet RxNorm: 442068 Tablet(s) PO UD 201410/29/2015 Inactive 60mg for 2 days, then 50mg for 2 days, then 40mg for 2 days, then 30mg for 2 days, then 20mg for 2 days, then 10mg for 2 days, then 5mg for 2 days albuterol sulfate 1.25 mg/3 mL solution for nebulization RxNorm: 748862 3 Milliliter(s) INH Q4-6H as needed dyspnea 05/23/2015 09/12/2018 Inactive Zithromax 500 mg tablet RxNorm: 316728 1 Tablet(s) PO daily 05/15/2015 Inactive Zithromax 500 mg tablet RxNorm: 739177 1 Tablet(s) PO daily 05/20/2015 Inactive prednisone 20 mg tablet RxNorm: 646282 3 Tablet(s) PO daily 05/16/2015 Inactive venlafaxine ER 150 mg capsule,extended release 24 hr RxNorm: 553794 TAKE ONE CAPSULE BY MOUTH DAILY 05/12/20152015 Inactive Keflex 500 mg capsule RxNorm: 733970 1 Capsule(s) PO TID 201405/18/2015 Inactive simvastatin 20 mg tablet RxNorm: 872780 1 Tablet(s) PO daily 04/09/2015 Inactive simvastatin 20 mg tablet RxNorm: 101773 1 Tablet(s) PO daily 08/11/2015 Inactive venlafaxine ER 150 mg capsule,extended release 24 hr RxNorm: 755122 TAKE ONE CAPSULE BY MOUTH DAILY 04/08/20152014 Inactive amlodipine 5 mg tablet RxNorm: 190408 1 Tablet(s) PO daily 04/201503/06/2015 Inactive amlodipine 5 mg tablet RxNorm: 990303 1 Tablet(s) PO daily 04/201507/04/2015 Inactive venlafaxine ER 150 mg capsule,extended release 24 hr RxNorm: 725948 1 Capsule(s) PO daily 01/29/2015 03/29/2015 Inactive Co Q-10 oral RxNorm: 38756 oral No Start Date Active gabapentin 100 mg capsule RxNorm: 893424 1 Capsule(s) PO QAM No Start Date Active albuterol sulfate 1.25 mg/3 mL solution for nebulization RxNorm: 553244 3 Milliliter(s) INH Q4-6H as needed dyspnea No Start Date 05/22/2015 Inactive levothyroxine 50 mcg tablet RxNorm: 869017 1 Tablet(s) PO daily No Start Date 11/30/2015 Inactive metoprolol succinate ER 50 mg tablet,extended release 24 hr RxNorm: 156680 1 Tablet(s) PO daily No Start Date 2018 Inactive gabapentin 300 mg capsule RxNorm: 460876 1 Capsule(s) PO QHS No Start Date 08/09/2016 Inactive vitamin B complex oral RxNorm: 44114 oral No Start Date 09/12/2018 Inactive Vitamin D3 1,000 unit tablet RxNorm: 710116 1 Tablet(s) PO daily No Start Date 11/30/2015 Inactive Protonix 40 mg tablet,delayed release RxNorm: 778189 1 Tablet(s) PO daily while on prednisone No Start Date 10/30/2015 Inactive calcium carbonate oral RxNorm: oral No Start Date 11/30/2015 Inactive potassium chloride ER 10 mEq tablet,extended release RxNorm: 004006 1 Tablet(s) PO daily No Start Date 05/29/2015 Inactive Levaquin 250 mg tablet RxNorm: 896206 Tablet(s) PO UD 500 mg day one, then 250 mg day 2-7 No Start Date 05/26/2015 Inactive triamterene 37.5 mg-hydrochlorothiazide 25 mg tablet RxNorm: 568864 1 Tablet(s) PO BID No Start Date 06/16/2015 Inactive prednisone 10 mg tablet RxNorm: 871063 Tablet(s) PO UD No Start Date 05/26/2015 Inactive 60mg for 2 days, then 50mg for 2 days, then 40mg for 2 days, then 30mg for 2 days, then 20mg for 2 days, then 10mg for 2 days, then 5mg for 2 days venlafaxine ER 150 mg capsule,extended release 24 hr RxNorm: 684083 1 Capsule(s) PO daily No Start Date 01/28/2015 Inactive Medication Administered Medication Codes Instructions Start Date Status Kenalog 40 mg/mL suspension for injection RxNorm: 2243331 1.5Milliliter 06/22/2017 No longer Active Kenalog 40 mg/mL suspension for injection RxNorm: 8785471 1Milliliter 08/04/2015 No longer Active Immunizations No Immunization data Assessments Condition Codes Effective Dates Chronic kidney disease, stage 3 (moderate) ICD-10: N18.3 ICD-9: 585.3 05/04/2018 Interstitial pulmonary disease, unspecified ICD-10: J84.9 ICD-9: 515 05/04/2018 Mixed hyperlipidemia ICD-10: E78.2 ICD-9: 272.2 [...] Visit Reason For Visit Effective Dates Notes hypertension 05/04/2018 hypertension 01/10/2018 hypertension 12/06/2017 cough [...] Ord62 ANION GAP 13 09/15/2018 Comp Metabolic Utd771 NA 140 mEq/L 01/10/2018 Comp Metabolic Adx383 K 3.8 mEq/L 01/10/2018 Comp Metabolic Nmz632 CL 106 mEq/L 01/10/2018 Comp Metabolic Gwn129 CO2 25.0 mEq/L 01/10/2018 Comp Metabolic Hle010 ANION GAP 13 01/10/2018 Comp Metabolic Szo849 GLUCOSE 110 mg/dL 01/10/2018 Comp Metabolic Zul071 Creat 1.5 mg/dL 01/10/2018 Comp Metabolic Xnb270 eGFR 37 ml/min/1.73m2 01/10/2018 Comp Metabolic Rbx400 BUN 23 mg/dL 01/10/2018 Comp Metabolic Gae417 B/C Ratio 15.3 Ratio 01/10/2018 Comp Metabolic Ldb866 CALCIUM 9.2 mg/dL 01/10/2018 Comp Metabolic Ocn411 ALK PHOS 87 U/L 01/10/2018 Comp Metabolic Qou937 AST(SGOT) 15 U/L 01/10/2018 Comp Metabolic Yle031 ALT(SGPT) 9 U/L 01/10/2018 Comp Metabolic Tsl473 BILI T 0.4 mg/dL 01/10/2018 Comp Metabolic Epz542 ALBUMIN 3.8 g/dL 01/10/2018 Comp Metabolic Rwj827 TPRO 6.2 g/dL 01/10/2018 Comp Metabolic Mor995 GLOB 2.4 g/dL 01/10/2018 Comp Metabolic Wdc575 A/G Ratio 1.6 Ratio 01/10/2018 Comp Metabolic Ffx932 Osmo 284 mOsmo 01/10/2018 C-Reactive Protein Qnt [...] 27.6 pg 01/10/2018 Cbc With Differential Ord2 [place]% 15.2 % 01/10/2018 Cbc With Differential Ord2 [...] 1.47 K/ul 01/10/2018 Cbc With Differential Ord2 [place] ABS# 1.0 K/ul 01/10/2018 Cbc With Differential Ord2 Eos ABS# 0.1 K/ul 01/10/2018 Cbc With Differential Ord2 Baso ABS# 0.0 K/ul 01/10/2018 Sed Rate Ord21 ESR 12 mm/hr 01/10/2018 Free T4 Bte712 FREE T4 0.57 ng/dL 12/06/2017 Tsh Ord6 TSH (3rd IS) 7.40 uIU/mL 12/06/2017 C A/B FLU 8090044 Influenza A Scr Negative 06/22/2017 C A/B FLU 8468960 Influenza B Scr Negative 06/22/2017 C A/B FLU 6172986 Influenza Intrp B AG: PRID:PT:NOSE:NOM:IF See Footnote 06/22/2017 Comp Metabolic Vmb421 NA 140 mEq/L 08/30/2016 Comp Metabolic Mxk794 K 3.3 mEq/L 08/30/2016 Comp Metabolic Yup225 CL 104 mEq/L 08/30/2016 Comp Metabolic Xrp423 CO2 26.0 mEq/L 08/30/2016 Comp Metabolic Yfs683 ANION GAP 13 08/30/2016 Comp Metabolic Yvu349 GLUCOSE 143 mg/dL 08/30/2016 Comp Metabolic Uvd525 Creat 1.3 mg/dL 08/30/2016 Comp Metabolic Flt990 eGFR 43 ml/min/1.73m2 08/30/2016 Comp Metabolic Ovt280 BUN 19 mg/dL 08/30/2016 Comp Metabolic Gfg316 B/C Ratio 14.3 Ratio 08/30/2016 Comp Metabolic Yhk024 CALCIUM 10.0 mg/dL 08/30/2016 Comp Metabolic Nti960 ALK PHOS 67 U/L 08/30/2016 Comp Metabolic Vyw485 AST(SGOT) 28 U/L 08/30/2016 Comp Metabolic Jql088 ALT(SGPT) 43 U/L 08/30/2016 Comp Metabolic Bwv911 BILI T 0.4 mg/dL 08/30/2016 Comp Metabolic Vkb030 ALBUMIN 4.0 g/dL 08/30/2016 Comp Metabolic Hxn138 TPRO 6.2 g/dL 08/30/2016 Comp Metabolic Pwp120 GLOB 2.2 g/dL 08/30/2016 Comp Metabolic Oge011 A/G Ratio 1.8 Ratio 08/30/2016 Comp Metabolic Ujy736 Osmo 284 mOsmo 08/30/2016 %Hba1C Pmt141 % HbA1c 51453-0 6.1 % 08/30/2016 %Hba1C Amw786 Gluc Ave 128 mg/dL 08/30/2016 Free T4 Yux442 FREE T4 0.75 ng/dL 06/25/2016 Tsh Ord6 [...] Ord90 Mag 2.1 mg/dL 12/16/2015 Free T4 Qvz948 FREE T4 0.92 ng/dL 12/16/2015 Tsh Ord6 [...] 28.5 pg 08/04/2015 Cbc With Differential Ord2 [place]% 6.1 % 08/04/2015 Cbc With Differential Ord2 [...] 0.73 K/ul 08/04/2015 Cbc With Differential Ord2 [place] ABS# 0.5 K/ul 08/04/2015 Cbc With Differential Ord2 Eos ABS# 0.1 K/ul 08/04/2015 Cbc With Differential Ord2 Baso ABS# 0.0 K/ul 08/04/2015 Cbc With Differential Ord2 New Analyzer Notice Please note new ref ranges starting 07-09-2015 due to implemntation of new five part differential hematolgy analyzer. 08/04/2015 C-Reactive Protein Qnt Crqnt CRP 0.8 mg/dl 08/04/2015 Comp Metabolic Pig679 NA 139 mEq/L 08/04/2015 Comp Metabolic Tic996 K 3.4 mEq/L 08/04/2015 Comp Metabolic Eim175 CL 109 mEq/L 08/04/2015 Comp Metabolic Uec625 CO2 22.0 mEq/L 08/04/2015 Comp Metabolic Wgm667 ANION GAP 11 08/04/2015 Comp Metabolic Uzp548 GLUCOSE 177 mg/dL 08/04/2015 Comp Metabolic Luh383 Creat 1.0 mg/dL 08/04/2015 Comp Metabolic Jgu774 eGFR 64 ml/min/1.73m2 08/04/2015 Comp Metabolic Wsq443 BUN 35 mg/dL 08/04/2015 Comp Metabolic Tfw447 B/C Ratio 36.8 Ratio 08/04/2015 Comp Metabolic Zju211 CALCIUM 8.5 mg/dL 08/04/2015 Comp Metabolic Nac454 ALK PHOS 57 U/L 08/04/2015 Comp Metabolic Oif549 AST(SGOT) 21 U/L 08/04/2015 Comp Metabolic Bdn591 ALT(SGPT) 63 U/L 08/04/2015 Comp Metabolic Tsj751 BILI T 0.3 mg/dL 08/04/2015 Comp Metabolic Kgo609 ALBUMIN 3.1 g/dL 08/04/2015 Comp Metabolic Tyw759 TPRO 5.1 g/dL 08/04/2015 Comp Metabolic Ake219 GLOB 2.0 g/dL 08/04/2015 Comp Metabolic Xgh442 A/G Ratio 1.6 Ratio 08/04/2015 Comp Metabolic Xts315 Osmo 290 mOsmo 08/04/2015 Cpk Ord61 CPK 52 U/L 08/04/2015 Random Urine Protein/Creatinine Ratio Zed9935 U Prot 8.5 mg/dl 05/27/2015 Random Urine Protein/Creatinine Ratio Pmb4639 U CREAT 201.0 mg/dL 05/27/2015 Random Urine Protein/Creatinine Ratio Bzy9307 R MTP/Creat Ratio 0.04 05/27/2015 Urinalysis Ord28 [...] hours from collection if refrigerated) 05/27/2015 Renal Wun029 NA 136 mEq/L 05/26/2015 Renal Fit701 K 3.3 mEq/L 05/26/2015 Renal Pfy807 CL 99 mEq/L 05/26/2015 Renal Jyu088 CO2 25.0 mEq/L 05/26/2015 Renal Yfy636 ANION GAP 15 05/26/2015 Renal Pxf554 Osmo 274 mOsmo 05/26/2015 Renal Jxh352 GLUCOSE 106 mg/dL 05/26/2015 Renal Uof636 BUN 17 mg/dL 05/26/2015 Renal Fql765 Creat 1.4 mg/dL 05/26/2015 Renal Ujf792 eGFR 40 ml/min/1.73m2 05/26/2015 Renal Bdr315 B/C Ratio 12.0 Ratio 05/26/2015 Renal Cru310 CALCIUM 9.3 mg/dL 05/26/2015 Renal Sje812 PHOS 3.4 mg/dL 05/26/2015 Renal Mtb886 ALBUMIN 3.4 g/dL 05/26/2015 Cbc With Differential [...] Ord2 RDW 14.3 % 04/21/2015 Free T4 Tsn385 FREE T4 0.91 ng/dL 04/21/2015 %Hba1C Ztj938 % HbA1c 30341-7 5.8 % 04/21/2015 %Hba1C Xbr331 Gluc Ave 120 mg/dL 04/21/2015 Comp Metabolic Zrr656 NA 137 mEq/L 04/21/2015 Comp Metabolic Kbp092 K 3.6 mEq/L 04/21/2015 Comp Metabolic Lpc041 CL 98 mEq/L 04/21/2015 Comp Metabolic Mgv228 CO2 25.0 mEq/L 04/21/2015 Comp Metabolic Xqr300 ANION GAP 18 04/21/2015 Comp Metabolic Pah674 GLUCOSE 83 mg/dL 04/21/2015 Comp Metabolic Piz165 Creat 1.6 mg/dL 04/21/2015 Comp Metabolic Cov385 eGFR 36 ml/min/1.73m2 04/21/2015 Comp Metabolic Seu277 BUN 28 mg/dL 04/21/2015 Comp Metabolic Utr739 B/C Ratio 17.9 Ratio 04/21/2015 Comp Metabolic Wpm857 CALCIUM 9.5 mg/dL 04/21/2015 Comp Metabolic Lnw669 ALK PHOS 60 U/L 04/21/2015 Comp Metabolic Kxg945 AST(SGOT) 22 U/L 04/21/2015 Comp Metabolic Qys365 ALT(SGPT) 10 U/L 04/21/2015 Comp Metabolic Cmc867 BILI T 0.4 mg/dL 04/21/2015 Comp Metabolic Opp644 ALBUMIN 4.0 g/dL 04/21/2015 Comp Metabolic Bva700 TPRO 6.8 g/dL 04/21/2015 Comp Metabolic Boi306 GLOB 2.8 g/dL 04/21/2015 Comp Metabolic Ltq763 A/G Ratio 1.4 Ratio 04/21/2015 Comp Metabolic Qlu502 Osmo 278 mOsmo 04/21/2015 Tsh Ord6 hTSH II 2.58 uIU/mL 04/21/2015 Review of Systems System Result Effective Dates Constitutional No recent illness 2017 Constitutional No [...] drainage 03/02/2017 None Full Exam - General 1995 Ears/Nose/Throat oral cavity/pharynx/larynx Oropharynx: erythema 03/02/2017 None [...] lips 08/30/2016 None Full Exam - General 1995 Ears/Nose/Throat lips/teeth/gingiva Overall: normal dentition 08/30/2016 None [...] distress 08/30/2016 None Full Exam - General 1995 Constitutional general appearance Overall: well nourished 08/30/2016 [...] Procedure Codes Date THER/PROPH/DIAG INJ SC/IM CPT-4: 89535 06/22/2017 TRIAMCINOLONE ACET INJ NOS CPT-4: J3301 06/22/2017 THER/PROPH/DIAG INJ SC/IM CPT-4: 45196 08/04/2015 TRIAMCINOLONE ACET INJ NOS CPT-4: J3301 08/04/2015 Vital Signs Date Vital 05/04/2018 Blood Pressure 1: 158/88 Code : 8480-6 BMI: 33.3 Code : 89351-4 Heart Rate 1 : 63 bpm Height: 5'1" SpO2: 98% Weight: 176 lbs 01/10/2018 Blood Pressure 1: 138/88 Code : 8480-6 BMI: 31.9 Code : 28024-7 Heart Rate 1 : 78 bpm Height: 5'1" SpO2: 99% Weight: 169 lbs 12/06/2017 Blood Pressure 1: 158/98 Code : 8480-6 BMI: 32.3 Code : 07615-1 Heart Rate 1 : 60 bpm Height: 5'1" SpO2: 100% Weight: 171 lbs 06/22/2017 Blood Pressure 1: 168/92 Code : 8480-6 BMI: 32.6 Code : 68448-2 Heart Rate 1 : 133 bpm Height: 5'1" SpO2: 97% Temperature: 37.6 (C) / 99.7 (F) Weight: 172 lbs 8 oz 03/02/2017 Blood Pressure 1: 168/90 Code : 8480-6 BMI: 35.0 Code : 14399-4 Heart Rate 1 : 80 bpm Height: 5'1" SpO2: 94% Weight: 185 lbs 01/24/2017 Blood Pressure 1: 130/68 Code : 8480-6 BMI: 35.3 Code : 20466-3 Heart Rate 1 : 66 bpm Height: 5'1" SpO2: 98% Weight: 187 lbs 10/13/2016 Blood Pressure 1: 136/74 Code : 8480-6 BMI: 35.1 Code : 75465-4 Heart Rate 1 : 71 bpm Height: 5'1" SpO2: 97% Weight: 186 lbs 08/30/2016 Blood Pressure 1: 128/80 Code : 8480-6 BMI: 35.0 Code : 45786-5 Heart Rate 1 : 75 bpm Height: 5'1" SpO2: 96% Weight: 185 lbs 8 oz 07/02/2016 Blood Pressure 1: 140/78 Code : 8480-6 Heart Rate 1: 63 bpm Height: 5'1" SpO2: 98% 06/24/2016 Blood Pressure 1: 148/100 Code: 8480-6 BMI: 34.2 Code: 62206-3 Heart Rate 1: 110 bpm Height : 5'1" SpO2: 94% Weight: 181 lbs 05/04/2016 Blood Pressure 1: 150/90 Code : 8480-6 Blood Pressure 1: 134/82 Code: 8480-6 BMI: 34.6 Code: 39573-8 Heart Rate 1: 74 bpm Height: 5'1" SpO2: 98% Weight: 183 lbs 04/06/2016 Blood Pressure 1: 156/92 Code : 8480-6 Blood Pressure 1: 158/88 Code: 8480-6 BMI: 34.8 Code: 29604-4 Heart Rate 1: 69 bpm Height: 5'1" SpO2: 97% Weight: 184 lbs 03/18/2016 Blood Pressure 1: 148/90 Code : 8480-6 BMI: 35.1 Code : 32621-6 Heart Rate 1 : 106 bpm Height: 5'1" SpO2: 94% Weight: 186 lbs 03/11/2016 Blood Pressure 1: 140/90 Code : 8480-6 BMI: 35.1 Code : 74872-5 Heart Rate 1 : 103 bpm Height: 5'1" SpO2: 96% Weight: 186 lbs 02/24/2016 Blood Pressure 1: 130/80 Code : 8480-6 BMI: 34.4 Code : 22864-8 Heart Rate 1 : 110 bpm Height: 5'1" SpO2: 96% Weight: 182 lbs 12/16/2015 Blood Pressure 1: 144/98 Code : 8480-6 BMI: 33.8 Code : 30718-2 Heart Rate 1 : 97 bpm Height: 5'1" SpO2: 98% Weight: 179 lbs 10/30/2015 Blood Pressure 1: 138/88 Code : 8480-6 BMI: 33.6 Code : 10745-2 Heart Rate 1 : 88 bpm Height: 5'1" SpO2: 98% Weight: 178 lbs 09/23/2015 Blood Pressure 1: 152/94 Code : 8480-6 BMI: 32.7 Code : 13196-3 Heart Rate 1 : 83 bpm Height: 5'1" SpO2: 97% Weight: 173 lbs 09/10/2015 Blood Pressure 1: 136/82 Code : 8480-6 BMI: 32.1 Code : 70794-4 Heart Rate 1 : 105 bpm Height: 5'1" SpO2: 97% Weight: 170 lbs 08/12/2015 Blood Pressure 1: 132/70 Code : 8480-6 BMI: 31.2 Code : 95766-3 Heart Rate 1 : 88 bpm Height: 5'1" SpO2: 95% Temperature: 36.7 (C) / 98.0 (F) Weight: 165 lbs 08/04/2015 Blood Pressure 1: 136/80 Code : 8480-6 BMI: 31.0 Code : 03542-2 Heart Rate 1 : 110 bpm Height: 5'1" SpO2: 98% Weight: 164 lbs 05/16/2015 Blood Pressure 1: 138/88 Code : 8480-6 BMI: 32.9 Code : 61542-2 Heart Rate 1 : 87 bpm Height: 5'1" SpO2: 90% Weight: 174 lbs 05/12/2015 BMI: 31.7 Code: 44926-7 Height: 5'1" Weight: 168 lbs 04/21/2015 Blood Pressure 1: 124/82 Code : 8480-6 BMI: 32.1 Code : 98639-0 Heart Rate 1 : 87 bpm Height: 5'1" Weight: 170 lbs Functional Status No Functional Status data History of Present Illness Symptom Name Status Result Effective Date Notes hypertension Onset and Resolution ongoing 05/04/2018 None [...] Performer Location Codes Date EST. PATIENT, LEVEL IV Diagnosis: Essential (primary) hypertension[ICD10: I10] Diagnosis: Interstitial pulmonary disease, unspecified[ICD10: J84.9] Diagnosis: Chronic kidney disease, stage 3 (moderate)[ICD10: N18.3] Diagnosis: Mixed hyperlipidemia[ICD10: E78.2] [facility] CPT-4: 17001 05/04/2018 00398 EST. PATIENT, LEVEL IV Diagnosis: Essential (primary) hypertension[ICD10: I10] Diagnosis: Interstitial pulmonary disease, unspecified[ICD10: J84.9] Diagnosis: Chronic kidney disease, stage 3 (moderate)[ICD10: N18.3] Diagnosis: Mixed hyperlipidemia[ICD10: E78.2] [facility] CPT-4: 02188 01/10/2018 32156 EST. PATIENT, LEVEL IV Diagnosis: Other specified hypothyroidism[ICD10: E03.8] Diagnosis: Essential (primary) hypertension[ICD10: I10] Britney Maya MD, [facility] CPT-4: 62783 12/06/2017 79319 EST. PATIENT, LEVEL IV Diagnosis: Other malaise[ICD10: R53.81] Diagnosis: Other fatigue[ICD10: R53.83] Britney Maya MD, [facility] CPT-4 : 57718 06/22/2017 75628 EST. PATIENT, LEVEL IV Diagnosis: Acute laryngopharyngitis[ICD10: J06.0] Diagnosis: Other acute sinusitis[ICD10: J01.80] Diagnosis: Other allergic rhinitis[ICD10: J30.89] Britney Myaa MD, [facility] CPT-4: 95102 03/02/2017 62532 EST. PATIENT, LEVEL IV Diagnosis: Generalized hyperhidrosis[ICD10: R61] Diagnosis: Other acute sinusitis[ICD10: J01.80] Diagnosis: Other fatigue[ICD10: R53.83] Diagnosis: Interstitial pulmonary disease, unspecified[ICD10: J84.9] Britney Maya MD, [facility] CPT-4: 52364 01/24/2017 47656 EST. PATIENT, LEVEL IV Diagnosis: Acute laryngopharyngitis[ICD10: J06.0] Diagnosis: Other acute sinusitis[ICD10: J01.80] Britney Maya MD, [facility] CPT-4: 35887 10/13/2016 ([id number]) 52186 EST. PATIENT, LEVEL IV Diagnosis: Essential (primary) hypertension[ICD10: I10] Diagnosis: Drug-induced polyneuropathy[ICD10: G62.0] Diagnosis: Impaired fasting glucose[ICD10: R73.01] Catie Maya MD, [facility] CPT-4: 96270 08/30/2016 64359 EST. PATIENT, LEVEL IV Diagnosis: Pain in thoracic spine[ICD10: M54.6] Diagnosis: Pain in left shoulder[ICD10: M25.512] Diagnosis: Zoster without complications[ICD10: B02.9] Britney Maya MD, [facility] CPT-4: 40795 07/02/2016 32217 EST. PATIENT, LEVEL III Diagnosis: Other specified hypothyroidism[ICD10: E03.8] Diagnosis: Menopausal and female climacteric states[ICD10: N95.1] Diagnosis: Essential (primary) hypertension[ICD10: I10] Britney Maya MD, [facility] CPT-4: 31832 06/24/2016 ([id number]) 81275 EST. PATIENT, LEVEL IV Diagnosis: Essential (primary) hypertension[ICD10: I10] Diagnosis: Atrophy of thyroid (acquired)[ICD10: E03.4] Diagnosis: Pain in left foot[ICD10: M79.672] Meghana Maya MD, [facility] CPT-4: 36431 05/04/2016 ([id number]) 65648 EST. PATIENT, LEVEL IV Diagnosis: Essential (primary) hypertension[ICD10: I10] Diagnosis: Pain in left leg[ICD10: M79.605] Diagnosis: Pain in left foot[ICD10: M79.672] Diagnosis: Atrophy of thyroid (acquired)[ICD10: E03.4] Meghana Maya MD, [facility] CPT-4: 96797 04/06/2016 ([id number]) 82047 EST. PATIENT, LEVEL III Diagnosis: Essential (primary) hypertension[ICD10: I10] Diagnosis: Localized edema[ICD10: R60.0] Catie Maya MD, [facility] CPT-4: 44687 03/18/2016 ([id number]) 74915 EST. PATIENT, LEVEL III Diagnosis: Essential (primary) hypertension[ICD10: I10] Diagnosis: Pain in left foot[ICD10: M79.672] Catie Maya MD, [facility] CPT-4: 42416 03/11/2016 ([id number]) 52563 EST. PATIENT, LEVEL III Diagnosis: Localized edema[ICD10: R60.0] Diagnosis: Essential (primary) hypertension[ICD10: I10] Catie Maya MD, [facility] CPT-4: 49020 02/24/2016 ([id number]) 46710 EST. PATIENT, LEVEL IV Diagnosis: Hypothyroidism, unspecified[ICD10: E03.9] Diagnosis: Essential (primary) hypertension[ICD10: I10] Meghana Maya MD, [facility] CPT-4: 95534 12/16/2015 ([id number]) 30230 EST. PATIENT, LEVEL III Diagnosis: Essential (primary) hypertension[ICD10: I10] Diagnosis: Hypothyroidism, unspecified[ICD10: E03.9] Meghana Maya MD [facility] CPT-4: 41838 10/30/2015 ([id number]) 11189 EST. PATIENT, LEVEL IV Diagnosis: Diarrhea, unspecified[ICD10: R19.7] Diagnosis: Essential (primary) hypertension[ICD10: I10] Meghana Maya MD [facility] CPT-4: 14729 09/23/2015 ([id number]) 38668 EST. PATIENT, LEVEL III Diagnosis: Essential (primary) hypertension[ICD10: I10] Diagnosis: Diarrhea, unspecified[ICD10: R19.7] Meghana Maya MD [facility] CPT-4: 27257 09/10/2015 ([id number]) 65978 EST. PATIENT, LEVEL III Diagnosis: Acute maxillary sinusitis, unspecified[ICD10: J01.00] Diagnosis: Myositis, unspecified[ICD10: M60.9] Meghana Maya MD [facility] CPT-4: 52490 08/12/2015 ([id number]) 36670 EST. PATIENT, LEVEL IV Diagnosis: Essential (primary) hypertension[ICD10: I10] Diagnosis: Pain in left leg[ICD10: M79.605] Diagnosis: Other myositis, multiple sites[ICD10: M60.89] Diagnosis: Hypothyroidism, unspecified[ICD10: E03.9] Meghana Maya MD, [facility] CPT-4: 64812 08/04/2015 29536 EST. PATIENT, LEVEL III Diagnosis: Dyspnea, unspecified[ICD10: R06.00] Diagnosis: Essential (primary) hypertension[ICD10: I10] Meghana Maay MD [facility] CPT-4: 39797 05/16/2015 ([id number]) 89882 EST. PATIENT, LEVEL II Diagnosis: Dyspnea, unspecified[ICD10: R06.00] Meghana Maya MD [facility] CPT-4: 89743 05/12/2015 ([id number]) OFFICE VISIT, NEW - LEVEL 4 Diagnosis: Essential (primary) hypertension[ICD10: I10] Diagnosis: Impaired fasting glucose[ICD10: R73.01] Diagnosis: Mixed hyperlipidemia[ICD10: E78.2] Diagnosis: Hypothyroidism, unspecified[ICD10: E03.9] Diagnosis: Encounter for screening mammogram for malignant neoplasm of breast[ ICD10: Z12.31] Catie Maya MD, [facility] CPT-4: 62176 04/21/2015 Plan of Care Planned Activity Notes Codes Status Date Appointment: Britney Bower WPtel: [phone] [facility] (30 min) Complex 09/13/2018 Visit Plan: Hypertension - well controlled [...] treatment plan 05/04/2018 Appointment: [phone] (15 min) Moderate 05/04/2018 Patient Education: Patient [...] treatment plan 01/10/2018 Appointment: Britney Bower WPtel: [phone] [facility] (30 min) Complex 01/10/2018 Patient Education: Patient [...] previous levels of control. 12/06/2017 Appointment: Britney Bower WPtel: [phone] [facility] [place] (15 min) Moderate 12/06/2017 Patient Education: Patient Medication Summary Completed 12/06/2017 Visit Plan: URI - Pt advised to increase fluids, vitamin C. Discussed natural and expected course of this diagnosis and need to alert me if symptoms do not follow expected course, or if any worse. RX sent to patient' s pharmacy. 06/22/2017 Appointment: [facility] Bower [phone] [place] (15 min) Moderate 06/22/2017 Patient Education: Patient [...] allergy spray. 03/02/2017 Appointment: Brit[facility] Bower [facility]el[phone] (10 min) Simple 03/02/2017 Patient Education: Patient Medication Summary Completed 03/02/2017 Patient Education: Obesity Completed 03/02/2017 Visit Plan: Sinusitis - Pt has acute infection - pain in face, maxillary region, Pt informed to use decongestant, RX given to patient, sinus rinses also recommended. Call if symptoms do not show improvement. Interstitial pulmonary disease, fatigue - will complete paperwork for pt to come garbage pick up man - pt is to continue with her specialist at [facility] - Discussed with Dr. Maya - will increase clonidine to BID - pt is to consider referral to dermatology - notify clinic if symptoms do not improve, if they worsen, or with any other questions or concerns. 01/24/2017 Appointment: [facility] Bower [phone] (30 min) Complex 01/24/2017 Patient Education: Patient [...] show improvement. 10/13/2016 Appointment: Britney Bower WPtel: [phone] [facility] (30 min) Complex 10/13/2016 Patient Education: Patient Medication Summary Completed 10/13/2016 Patient Education: Obesity Completed 10/13/2016 Visit Plan: Hypertension - well controlled - continue with current medications, continue with no added salt diet. Pt has been encouraged to exercise daily. The pt has been advised to call the office if there are any acute concerns about change in blood pressure readings at home. 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 (15 min) Moderate 08/30/2016 Patient Education: Patient Medication Summary Completed 08/30/2016 Patient Education: Obesity Completed 08/30/2016 Care Plan: [facility] : 20191-5 Ordered 08/30/2016 Care Plan: Comp Metabolic Ordered [...] considered contagious. 07/02/2016 Appointment: Britney Bower WPtel: [phone] [facility] (30 min) Complex 07/02/2016 Patient Education: Patient [...] control. 06/24/2016 Appointment: [phone] (30 min) Complex 06/24/2016 Patient Education: Patient Medication Summary Completed 06/24/2016 Patient Education: Obesity Completed 06/24/2016 Patient Education: Hypertension Completed 06/24/2016 Patient Education: Patient Medication Summary Completed 05/14/2016 Care Plan: [facility] 49238-7 Pending 05/14/2016 Visit Plan: Hypertension - well [...] is painful. 05/04/2016 Appointment: [phone] (15 min) Moderate 05/04/2016 Patient Education: Patient [...] current medication. 04/06/2016 Appointment: Meghana Maya WPtel: [phone] [place] (15 min) Moderate 04/06/2016 Patient Education: Patient Medication Summary Completed 04/06/2016 Patient Education: Obesity Completed 04/06/2016 Care Plan: Referral Order SNOMED-CT : [id number] Pending 04/06/2016 Visit Plan: Edema-improved with lower [...] acute concerns. 03/18/2016 Appointment: Catie Shoemaker WPtel: [phone] [place] (15 min) Moderate 03/18/2016 Patient Education: [...] xray left foot-recommend she follow up with salesperson surgical appliances at regarding left foot pain/numbness/weakness. Patient has noticed worsening symptoms since decreasing prednisone. 03/11/2016 Appointment: Catie Shoemaker WPtel: [address] [place] [address] (15 min) Moderate 03/11/2016 Patient Education: Patient Medication Summary Completed 03/11/2016 Patient Education: Obesity Completed 03/11/2016 Appointment: Catie Shoemaker WPtel: [address] [place] [address] (30 min) Complex 03/09/2016 Visit Plan: Edema [...] 25mg daily 02/24/2016 Appointment: Catie Shoemaker WPtel: [address] [place] [address] (15 min) Moderate 02/24/2016 Patient Education: Patient Medication Summary Completed 02/24/2016 Patient Education: Obesity Completed 02/24/2016 Patient Education: Hypertension Completed 02/24/2016 Appointment: Meghana Maya WPtel: [address] [place], [place] [id number] (15 min) Moderate 02/23/2016 Visit Plan: Hypertension [...] of control. 12/16/2015 Appointment: Meghana Maya WPtel: [phone] (15 min) Moderate 12/16/2015 Patient Education: Patient [...] min) Complex 10/23/2015 Appointment: Meghana Maya WPtel: [phone] [facility] (15 min) Moderate 10/23/2015 Visit Plan: Hypertension [...] at home. 09/10/2015 Appointment: Meghana Maya WPtel: [phone] (15 min) Moderate 09/10/2015 Patient Education: Patient [...] Complex 07/24/2015 Appointment: Meghana Maya WPtel: [phone] (15 min) Moderate 07/24/2015 Appointment: Lab Draw [...] Education: Hypertension Completed 04/21/2015 Care Plan: [facility]AMMOGRAPHY[facility] : 08173-6 Ordered 04/21/2015 Appointment: Meghana Maya WPtel: [facility] [place] (S) New Patient 04/01/2015 Referral: Sharon [...] going to get a steroid shot today. . 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 CROUCH IS THE NIGHT SHIFT SUPERVISOR WHO SPECIALIZES IN FOOT AND ANKLE DISEASE AT [address] INCREASE THE METOPROLOL TO 1.5 PILLS [...] change in blood pressure readings at home. Sweats/half-way use of steroids-check Hgb A1C Peripheral neuropathy-improved with [id number] Dr Duran for tarsel tunnel syndrome PATIENT [...] xray left foot-recommend she follow up with salesperson surgical appliances at regarding left foot pain/numbness/weakness. Patient has [...] will complete paperwork for pt to come garbage pick up man - pt is to continue with her specialist at [facility] - Discussed with Dr. Maya - will increase clonidine to BID - pt is to consider referral to dermatology - notify clinic if symptoms do not improve, if they worsen, or with any other questions or concerns. probiotic - callie [employer], probiotic pearls, etc - take three times [...]
--- OUTSIDE RECORDS SUMMARY | 2018-09-30 13:31 | XMS REPORT | CCD ---
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 04/21/[address]: 723515992 Never smoker 04/21/2015 Alcohol history Unknown occasionally drinks alcohol 04/21/2015 Allergies, Adverse Reactions, Alerts Substance Reaction Codes Entered Date Inactivated Date Status YSYZNPR-XIF-SIV REDUCTASE INHIBITORS myalgias Unknown 2015 No Inactive [...] Fill Instructions candesartan 4 mg tablet RxNorm: 461831 1 Tablet(s) PO daily 10/14/2018 Active clonidine HCl 0.1 mg tablet RxNorm: 624031 TAKE ONE TABLET BY MOUTH TWICE A DAY 09/14/2018 02/10/2019 Active losartan 25 mg tablet RxNorm: 892464 TAKE ONE TABLET BY MOUTH DAILY 09/14/2018 11/12/2018 Active clonidine HCl 0.1 mg tablet RxNorm: 772204 Tablet(s) TAKE ONE TABLET BY MOUTH AT BEDTIME 09/13/2018 No Stop Date Active venlafaxine ER 150 mg capsule,extended release 24 hr RxNorm: 527525 TAKE ONE CAPSULE BY MOUTH DAILY 05/15/20182018 Active Lipitor 20 mg tablet RxNorm: 546463 TAKE ONE TABLET BY MOUTH DAILY 05/15/2018 11/10/2018 Active losartan 25 mg tablet RxNorm: 638054 TAKE ONE TABLET BY MOUTH DAILY 04/17/2018 07/14/2018 Inactive losartan 25 mg tablet RxNorm: 999792 TAKE ONE TABLET BY MOUTH DAILY 04/17/2018 04/16/2018 Inactive Lipitor 20 mg tablet RxNorm: 451993 1 Tablet(s) PO daily 201701/11/2018 Inactive Lipitor 20 mg tablet RxNorm: 873860 1 Tablet(s) PO daily 201705/11/2018 Inactive clonidine HCl 0.1 mg tablet RxNorm: 533819 TAKE ONE TABLET BY MOUTH TWICE A DAY 01/04/2018 07/02/2018 Inactive potassium chloride ER 10 mEq tablet,extended release RxNorm: 568306 TAKE ONE TABLET BY MOUTH DAILY 01/04/20182018 Inactive losartan 25 mg tablet RxNorm: 188595 TAKE ONE TABLET BY MOUTH DAILY 01/03/2018 04/02/2018 Inactive levothyroxine 50 mcg tablet RxNorm: 941067 1 Tablet(s) PO daily 12/08/2017 09/12/2018 Inactive losartan 25 mg tablet RxNorm: 678260 1 Tablet(s) PO daily 201701/02/2018 Inactive venlafaxine ER 150 mg capsule,extended release 24 hr RxNorm: 071922 TAKE ONE CAPSULE BY MOUTH DAILY 12/06/20172017 Inactive metoprolol succinate ER 50 mg tablet,extended release 24 hr RxNorm: 260817 TAKE ONE TABLET BY MOUTH DAILY 08/29/201701/25 Inactive metoprolol succinate ER 50 mg tablet,extended release 24 hr RxNorm: 796868 TAKE ONE TABLET BY MOUTH DAILY 08/29/201708/28 Inactive metoprolol succinate ER 50 mg tablet,extended release 24 hr RxNorm: 840327 TAKE ONE TABLET BY MOUTH DAILY 08/29/201708/28 Inactive Tamiflu 75 mg capsule RxNorm: 920125 1 Capsule(s) PO BID 201606/26/2017 Inactive Kenalog 40 mg/mL suspension for injection RxNorm: 2222295 1.5 Milliliter(s) Inj 06/22/2017 06/22/2017 Inactive clonidine HCl 0.1 mg tablet RxNorm: 507658 TAKE ONE TABLET BY MOUTH TWICE A DAY 06/06/2017 12/02/2017 Inactive potassium chloride ER 10 mEq tablet,extended release RxNorm: 476127 TAKE ONE TABLET BY MOUTH DAILY 06/06/20172017 Inactive venlafaxine ER 150 mg capsule,extended release 24 hr RxNorm: 554681 TAKE ONE CAPSULE BY MOUTH DAILY 05/23/20172017 Inactive Zithromax 500 mg tablet RxNorm: 002503 1 Tablet(s) PO daily 05/22/2017 Inactive potassium chloride ER 10 mEq tablet,extended release RxNorm: 641016 TAKE ONE TABLET BY MOUTH DAILY 04/21/20172016 Inactive potassium chloride ER 10 mEq tablet,extended release RxNorm: 596790 TAKE ONE TABLET BY MOUTH DAILY 03/16/20172016 Inactive Zithromax Z-Jacek 250 mg tablet RxNorm: 174723 1 Tablet(s) PO UD 03/02/2017 06/21/2017 Inactive venlafaxine ER 150 mg capsule,extended release 24 hr RxNorm: 022146 Capsule(s) TAKE ONE CAPSULE BY MOUTH DAILY 02/17/2017 02/16/2017 Inactive venlafaxine ER 150 mg capsule,extended release 24 hr RxNorm: 445419 TAKE ONE CAPSULE BY MOUTH DAILY 02/17/20172017 Inactive clonidine HCl 0.1 mg tablet RxNorm: 603260 TAKE ONE TABLET BY MOUTH EVERY NIGHT AT BEDTIME 02/14/2017 01/03/2018 Inactive metoprolol succinate ER 50 mg tablet,extended release 24 hr RxNorm: 067695 TAKE ONE TABLET BY MOUTH DAILY 02/14/201708/12 Inactive Protonix 40 mg tablet,delayed release RxNorm: 216655 TAKE ONE TABLET BY MOUTH DAILY WHILE ON PREDNISONE 01/25/201709/12 Inactive Zithromax Z-Jacek 250 mg tablet RxNorm: 822279 1 Tablet(s) PO UD 01/24/2017 01/03/2018 Inactive potassium chloride ER 10 mEq tablet,extended release RxNorm: 938821 TAKE ONE TABLET BY MOUTH DAILY 01/17/20172016 Inactive clonidine HCl 0.1 mg tablet RxNorm: 129203 TAKE ONE TABLET BY MOUTH EVERY NIGHT AT BEDTIME 01/17/2017 02/13/2017 Inactive potassium chloride ER 10 mEq tablet,extended release RxNorm: 604117 TAKE ONE TABLET BY MOUTH DAILY 12/16/20162016 Inactive venlafaxine ER 150 mg capsule,extended release 24 hr RxNorm: 036887 TAKE ONE CAPSULE BY MOUTH DAILY 11/18/20162016 Inactive clonidine HCl 0.1 mg tablet RxNorm: 846877 TAKE ONE TABLET BY MOUTH EVERY NIGHT AT BEDTIME 11/08/2016 01/06/2017 Inactive clonidine HCl 0.1 mg tablet RxNorm: 915953 1 Tablet(s) BID 01/16/2017 Inactive potassium chloride ER 10 mEq tablet,extended release RxNorm: 161459 TAKE ONE TABLET BY MOUTH DAILY 10/15/20162016 Inactive Zithromax Z-Jacek 250 mg tablet RxNorm: 882405 1 Tablet(s) PO UD 10/13/2016 01/03/2018 Inactive potassium chloride ER 10 mEq tablet,extended release RxNorm: 157674 TAKE ONE TABLET BY MOUTH DAILY 10/12/20162016 Inactive potassium chloride ER 10 mEq tablet,extended release RxNorm: 674541 Tablet(s) BID TAKE ONE TABLET BY MOUTH TWICE DAILY 09/17/2016 10/11/2016 Inactive potassium chloride ER 10 mEq tablet,extended release RxNorm: 982709 TAKE ONE TABLET BY MOUTH DAILY 09/13/20162016 Inactive clonidine HCl 0.1 mg tablet RxNorm: 748197 Tablet(s) TAKE ONE TABLET BY MOUTH EVERY NIGHT AT BEDTIME 08/12/20162016 Inactive gabapentin 300 mg capsule RxNorm: 742439 1 Capsule(s) PO QHS No Stop Date Active venlafaxine ER 150 mg capsule,extended release 24 hr RxNorm: 123445 TAKE ONE CAPSULE BY MOUTH DAILY 08/09/20162016 Inactive metoprolol succinate ER 50 mg tablet,extended release 24 hr RxNorm: 671378 TAKE ONE TABLET BY MOUTH DAILY 07/29/201601/24 Inactive clonidine HCl 0.1 mg tablet RxNorm: 863264 TAKE ONE TABLET BY MOUTH EVERY NIGHT AT BEDTIME 07/21/2016 08/11/2016 Inactive potassium chloride ER 10 mEq tablet,extended release RxNorm: 787242 TAKE ONE TABLET BY MOUTH DAILY 07/14/20162016 Inactive Prescriber not associated with this practice or location acyclovir 400 mg tablet RxNorm: 591664 2 Tablet(s) PO QID 07/0207/11/2016 Inactive cyclobenzaprine 5 mg tablet RxNorm: 522783 1-2 Tablet(s) PO TID as needed 07/02/2016 07/06/2016 Inactive capsaicin 0.1 % topical cream RxNorm: 832810 1 Application TOP TID as needed 07/02/2016 09/12/2018 Inactive Protonix 40 mg tablet,delayed release RxNorm: 926629 TAKE ONE TABLET BY MOUTH DAILY WHILE ON PREDNISONE 06/29/201612/25 Inactive clonidine HCl 0.1 mg tablet RxNorm: 304670 1 Tablet(s) PO QHS 06/25/2016 07/20/2016 Inactive calcium carbonate 500 mg calcium (1,250 mg) tablet RxNorm: 963969 TAKE ONE TABLET BY MOUTH DAILY WHILE ON PREDNISONE. MAY STOP TAKING WHEN PREDNISONE IS COMPLETE 06/01/2016 09/12/2018 Inactive Vitamin D3 1,000 unit tablet RxNorm: 145469 1 Tablet(s) PO daily . May stop taking once prednisone is complete. 04/26/2016 09/12/2018 Inactive metoprolol succinate ER 50 mg tablet,extended release 24 hr RxNorm: 193587 1.5 Tablet(s) PO daily 04/06/2016 06/23/2016 Inactive prednisone 10 mg tablet RxNorm: 528419 1 Tablet(s) PO daily 12/201506/21/2017 Inactive metoprolol succinate ER 50 mg tablet,extended release 24 hr RxNorm: 385480 1 Tablet(s) PO daily 03/18/2016 04/05/2016 Inactive amlodipine 10 mg tablet RxNorm: 576064 1/2 Tablet(s) PO daily 02/24/2016 06/21/2016 Inactive metoprolol succinate ER 25 mg tablet,extended release 24 hr RxNorm: 358940 1 Tablet(s) PO daily 02/24/2016 03/16/2016 Inactive calcium carbonate 500 mg calcium (1,250 mg) tablet RxNorm: 405901 TAKE ONE TABLET BY MOUTH DAILY WHILE ON PREDNISONE. MAY STOP TAKING WHEN PREDNISONE IS COMPLETE 02/16/2016 05/15/2016 Inactive Protonix 40 mg tablet,delayed release RxNorm: 256068 TAKE ONE TABLET BY MOUTH DAILY WHILE ON PREDNISONE 02/10/201605/09 Inactive venlafaxine ER 150 mg capsule,extended release 24 hr RxNorm: 596274 Capsule(s) TAKE ONE CAPSULE BY MOUTH DAILY 12/10/2015 04/07/2016 Inactive calcium carbonate 500 mg calcium (1,250 mg) tablet RxNorm: 915563 1 Tablet(s) PO daily 12/01/2015 01/29/2016 Inactive Vitamin D3 1,000 unit tablet RxNorm: 100280 1 Tablet(s) PO daily 12/01/2015 03/29/2016 Inactive levothyroxine 50 mcg tablet RxNorm: 046753 1 Tablet(s) PO daily 12/01/2015 11/24/2016 Inactive amlodipine 10 mg tablet RxNorm: 394446 1 Tablet(s) PO daily 11/18/2015 Inactive amlodipine 10 mg tablet RxNorm: 690597 1 Tablet(s) PO daily 02/23/2016 Inactive amlodipine 5 mg tablet RxNorm: 771350 1 Tablet(s) PO daily 11/18/2015 Inactive venlafaxine ER 150 mg capsule,extended release 24 hr RxNorm: 970823 TAKE ONE CAPSULE BY MOUTH DAILY 11/13/20152015 Inactive Protonix 40 mg tablet,delayed release RxNorm: 245971 1 Tablet(s) PO daily while on prednisone 2015 02/09/2016 Inactive prednisone 10 mg tablet RxNorm: 166672 2 Tablet(s) PO UD 201504/01/2016 Inactive 60mg for 2 days, then 50mg for 2 days, then 40mg for 2 days, then 30mg for 2 days, then 20mg for 2 days, then 10mg for 2 days, then 5mg for 2 days potassium chloride ER 10 mEq tablet,extended release RxNorm: 479387 TAKE ONE TABLET BY MOUTH DAILY 09/22/20152015 Inactive venlafaxine ER 150 mg capsule,extended release 24 hr RxNorm: 318016 TAKE ONE CAPSULE BY MOUTH DAILY 09/08/20152015 Inactive cefdinir 300 mg capsule RxNorm: 894036 1 Capsule(s) PO BID 08/22/2015 Inactive cefdinir 300 mg capsule RxNorm: 420268 1 Capsule(s) PO BID 08/18/2015 Inactive Kenalog 40 mg/mL suspension for injection RxNorm: 5660089 1 Milliliter(s) Inj 08/04/2015 08/04/2015 Inactive triamterene 37.5 mg-hydrochlorothiazide 25 mg tablet RxNorm: 559692 1 Tablet(s) PO BID 06/17/2015 08/03/2015 Inactive potassium chloride ER 10 mEq tablet,extended release RxNorm: 838429 1 Tablet(s) PO daily 05/30/2015 08/03/2015 Inactive Levaquin 250 mg tablet RxNorm: 247776 Tablet(s) PO UD 500 mg day one, then 250 mg day 2-7 05/27/2015 08/03/2015 Inactive prednisone 10 mg tablet RxNorm: 413212 Tablet(s) PO UD 201410/29/2015 Inactive 60mg for 2 days, then 50mg for 2 days, then 40mg for 2 days, then 30mg for 2 days, then 20mg for 2 days, then 10mg for 2 days, then 5mg for 2 days albuterol sulfate 1.25 mg/3 mL solution for nebulization RxNorm: 966943 3 Milliliter(s) INH Q4-6H as needed dyspnea 05/23/2015 09/12/2018 Inactive Zithromax 500 mg tablet RxNorm: 030866 1 Tablet(s) PO daily 05/15/2015 Inactive Zithromax 500 mg tablet RxNorm: 005430 1 Tablet(s) PO daily 05/20/2015 Inactive prednisone 20 mg tablet RxNorm: 224606 3 Tablet(s) PO daily 05/16/2015 Inactive venlafaxine ER 150 mg capsule,extended release 24 hr RxNorm: 316459 TAKE ONE CAPSULE BY MOUTH DAILY 05/12/20152015 Inactive Keflex 500 mg capsule RxNorm: 942167 1 Capsule(s) PO TID 201405/18/2015 Inactive simvastatin 20 mg tablet RxNorm: 417777 1 Tablet(s) PO daily 04/09/2015 Inactive simvastatin 20 mg tablet RxNorm: 199066 1 Tablet(s) PO daily 08/11/2015 Inactive venlafaxine ER 150 mg capsule,extended release 24 hr RxNorm: 454006 TAKE ONE CAPSULE BY MOUTH DAILY 04/08/20152014 Inactive amlodipine 5 mg tablet RxNorm: 081435 1 Tablet(s) PO daily 04/201503/06/2015 Inactive amlodipine 5 mg tablet RxNorm: 768868 1 Tablet(s) PO daily 04/201507/04/2015 Inactive venlafaxine ER 150 mg capsule,extended release 24 hr RxNorm: 380980 1 Capsule(s) PO daily 01/29/2015 03/29/2015 Inactive Co Q-10 oral RxNorm: 45049 oral No Start Date Active gabapentin 100 mg capsule RxNorm: 048881 1 Capsule(s) PO QAM No Start Date Active albuterol sulfate 1.25 mg/3 mL solution for nebulization RxNorm: 895832 3 Milliliter(s) INH Q4-6H as needed dyspnea No Start Date 05/22/2015 Inactive levothyroxine 50 mcg tablet RxNorm: 364700 1 Tablet(s) PO daily No Start Date 11/30/2015 Inactive metoprolol succinate ER 50 mg tablet,extended release 24 hr RxNorm: 708157 1 Tablet(s) PO daily No Start Date 2018 Inactive gabapentin 300 mg capsule RxNorm: 992831 1 Capsule(s) PO QHS No Start Date 08/09/2016 Inactive vitamin B complex oral RxNorm: 31480 oral No Start Date 09/12/2018 Inactive Vitamin D3 1,000 unit tablet RxNorm: 699380 1 Tablet(s) PO daily No Start Date 11/30/2015 Inactive Protonix 40 mg tablet,delayed release RxNorm: 748560 1 Tablet(s) PO daily while on prednisone No Start Date 10/30/2015 Inactive calcium carbonate oral RxNorm: oral No Start Date 11/30/2015 Inactive potassium chloride ER 10 mEq tablet,extended release RxNorm: 276592 1 Tablet(s) PO daily No Start Date 05/29/2015 Inactive Levaquin 250 mg tablet RxNorm: 824978 Tablet(s) PO UD 500 mg day one, then 250 mg day 2-7 No Start Date 05/26/2015 Inactive triamterene 37.5 mg-hydrochlorothiazide 25 mg tablet RxNorm: 495305 1 Tablet(s) PO BID No Start Date 06/16/2015 Inactive prednisone 10 mg tablet RxNorm: 478552 Tablet(s) PO UD No Start Date 05/26/2015 Inactive 60mg for 2 days, then 50mg for 2 days, then 40mg for 2 days, then 30mg for 2 days, then 20mg for 2 days, then 10mg for 2 days, then 5mg for 2 days venlafaxine ER 150 mg capsule,extended release 24 hr RxNorm: 613111 1 Capsule(s) PO daily No Start Date 01/28/2015 Inactive Medication Administered Medication Codes Instructions Start Date Status Kenalog 40 mg/mL suspension for injection RxNorm: 6836707 1.5Milliliter 06/22/2017 No longer Active Kenalog 40 mg/mL suspension for injection RxNorm: 5379690 1Milliliter 08/04/2015 No longer Active Immunizations No [...] Ord62 ANION GAP 13 09/15/2018 Comp Metabolic Ckt632 NA 140 mEq/L 01/10/2018 Comp Metabolic Gav605 K 3.8 mEq/L 01/10/2018 Comp Metabolic Edc678 CL 106 mEq/L 01/10/2018 Comp Metabolic Quc179 CO2 25.0 mEq/L 01/10/2018 Comp Metabolic Qpp856 ANION GAP 13 01/10/2018 Comp Metabolic Mis198 GLUCOSE 110 mg/dL 01/10/2018 Comp Metabolic Nth466 Creat 1.5 mg/dL 01/10/2018 Comp Metabolic Wyf617 eGFR 37 ml/min/1.73m2 01/10/2018 Comp Metabolic Stg140 BUN 23 mg/dL 01/10/2018 Comp Metabolic Nux885 B/C Ratio 15.3 Ratio 01/10/2018 Comp Metabolic Tcf582 CALCIUM 9.2 mg/dL 01/10/2018 Comp Metabolic Llj642 ALK PHOS 87 U/L 01/10/2018 Comp Metabolic Ytp277 AST(SGOT) 15 U/L 01/10/2018 Comp Metabolic Fmu960 ALT(SGPT) 9 U/L 01/10/2018 Comp Metabolic Mfg715 BILI T 0.4 mg/dL 01/10/2018 Comp Metabolic Uom462 ALBUMIN 3.8 g/dL 01/10/2018 Comp Metabolic Krf145 TPRO 6.2 g/dL 01/10/2018 Comp Metabolic Jsy783 GLOB 2.4 g/dL 01/10/2018 Comp Metabolic Ygf100 A/G Ratio 1.6 Ratio 01/10/2018 Comp Metabolic Lfw498 Osmo 284 mOsmo 01/10/2018 C-Reactive Protein Qnt [...] 27.6 pg 01/10/2018 Cbc With Differential Ord2 [place]% 15.2 % 01/10/2018 Cbc With Differential Ord2 [...] 1.47 K/ul 01/10/2018 Cbc With Differential Ord2 [place] ABS# 1.0 K/ul 01/10/2018 Cbc With Differential Ord2 Eos ABS# 0.1 K/ul 01/10/2018 Cbc With Differential Ord2 Baso ABS# 0.0 K/ul 01/10/2018 Sed Rate Ord21 ESR 12 mm/hr 01/10/2018 Free T4 Unm044 FREE T4 0.57 ng/dL 12/06/2017 Tsh Ord6 TSH (3rd IS) 7.40 uIU/mL 12/06/2017 C A/B FLU 5818935 Influenza A Scr Negative 06/22/2017 C A/B FLU 1105573 Influenza B Scr Negative 06/22/2017 C A/B FLU 2906536 Influenza Intrp B AG: PRID:PT:NOSE:NOM:IF See Footnote 06/22/2017 Comp Metabolic Cod560 NA 140 mEq/L 08/30/2016 Comp Metabolic Izf852 K 3.3 mEq/L 08/30/2016 Comp Metabolic Yvb680 CL 104 mEq/L 08/30/2016 Comp Metabolic Rfa561 CO2 26.0 mEq/L 08/30/2016 Comp Metabolic Wsz191 ANION GAP 13 08/30/2016 Comp Metabolic Emd934 GLUCOSE 143 mg/dL 08/30/2016 Comp Metabolic Eqb253 Creat 1.3 mg/dL 08/30/2016 Comp Metabolic Mdk300 eGFR 43 ml/min/1.73m2 08/30/2016 Comp Metabolic Xtk765 BUN 19 mg/dL 08/30/2016 Comp Metabolic Kas444 B/C Ratio 14.3 Ratio 08/30/2016 Comp Metabolic Sxe523 CALCIUM 10.0 mg/dL 08/30/2016 Comp Metabolic Eks317 ALK PHOS 67 U/L 08/30/2016 Comp Metabolic Hwj408 AST(SGOT) 28 U/L 08/30/2016 Comp Metabolic Kbm570 ALT(SGPT) 43 U/L 08/30/2016 Comp Metabolic Jvx629 BILI T 0.4 mg/dL 08/30/2016 Comp Metabolic Vqj670 ALBUMIN 4.0 g/dL 08/30/2016 Comp Metabolic Mij873 TPRO 6.2 g/dL 08/30/2016 Comp Metabolic Xml087 GLOB 2.2 g/dL 08/30/2016 Comp Metabolic Pbn916 A/G Ratio 1.8 Ratio 08/30/2016 Comp Metabolic Zkt249 Osmo 284 mOsmo 08/30/2016 %Hba1C Vmn241 % HbA1c 28518-7 6.1 % 08/30/2016 %Hba1C Tsf051 Gluc Ave 128 mg/dL 08/30/2016 Free T4 Tut731 FREE T4 0.75 ng/dL 06/25/2016 Tsh Ord6 [...] Ord90 Mag 2.1 mg/dL 12/16/2015 Free T4 Eez852 FREE T4 0.92 ng/dL 12/16/2015 Tsh Ord6 [...] 28.5 pg 08/04/2015 Cbc With Differential Ord2 [place]% 6.1 % 08/04/2015 Cbc With Differential Ord2 [...] 0.73 K/ul 08/04/2015 Cbc With Differential Ord2 [place] ABS# 0.5 K/ul 08/04/2015 Cbc With Differential Ord2 Eos ABS# 0.1 K/ul 08/04/2015 Cbc With Differential Ord2 Baso ABS# 0.0 K/ul 08/04/2015 Cbc With Differential Ord2 New Analyzer Notice Please note new ref ranges starting 07-09-2015 due to implemntation of new five part differential hematolgy analyzer. 08/04/2015 C-Reactive Protein Qnt Crqnt CRP 0.8 mg/dl 08/04/2015 Comp Metabolic Tar636 NA 139 mEq/L 08/04/2015 Comp Metabolic Cdk443 K 3.4 mEq/L 08/04/2015 Comp Metabolic Leu326 CL 109 mEq/L 08/04/2015 Comp Metabolic Vqy409 CO2 22.0 mEq/L 08/04/2015 Comp Metabolic Ypm246 ANION GAP 11 08/04/2015 Comp Metabolic Zsl115 GLUCOSE 177 mg/dL 08/04/2015 Comp Metabolic Zsx287 Creat 1.0 mg/dL 08/04/2015 Comp Metabolic Xur091 eGFR 64 ml/min/1.73m2 08/04/2015 Comp Metabolic Nfb093 BUN 35 mg/dL 08/04/2015 Comp Metabolic Rfa116 B/C Ratio 36.8 Ratio 08/04/2015 Comp Metabolic Oel819 CALCIUM 8.5 mg/dL 08/04/2015 Comp Metabolic Vrz438 ALK PHOS 57 U/L 08/04/2015 Comp Metabolic Cve868 AST(SGOT) 21 U/L 08/04/2015 Comp Metabolic Ixx788 ALT(SGPT) 63 U/L 08/04/2015 Comp Metabolic Bbc802 BILI T 0.3 mg/dL 08/04/2015 Comp Metabolic Rqf916 ALBUMIN 3.1 g/dL 08/04/2015 Comp Metabolic Gkd637 TPRO 5.1 g/dL 08/04/2015 Comp Metabolic Rsc009 GLOB 2.0 g/dL 08/04/2015 Comp Metabolic Qmf353 A/G Ratio 1.6 Ratio 08/04/2015 Comp Metabolic Knc618 Osmo 290 mOsmo 08/04/2015 Cpk Ord61 CPK 52 U/L 08/04/2015 Random Urine Protein/Creatinine Ratio Lfz6869 U Prot 8.5 mg/dl 05/27/2015 Random Urine Protein/Creatinine Ratio Yti3222 U CREAT 201.0 mg/dL 05/27/2015 Random Urine Protein/Creatinine Ratio Xbz2168 R MTP/Creat Ratio 0.04 05/27/2015 Urinalysis Ord28 [...] hours from collection if refrigerated) 05/27/2015 Renal Qzx929 NA 136 mEq/L 05/26/2015 Renal Xgx064 K 3.3 mEq/L 05/26/2015 Renal Ygj815 CL 99 mEq/L 05/26/2015 Renal Eyi525 CO2 25.0 mEq/L 05/26/2015 Renal Nou680 ANION GAP 15 05/26/2015 Renal Xpe082 Osmo 274 mOsmo 05/26/2015 Renal Ccv102 GLUCOSE 106 mg/dL 05/26/2015 Renal Uvo948 BUN 17 mg/dL 05/26/2015 Renal Hhe743 Creat 1.4 mg/dL 05/26/2015 Renal Bgy316 eGFR 40 ml/min/1.73m2 05/26/2015 Renal Koz039 B/C Ratio 12.0 Ratio 05/26/2015 Renal Gjj216 CALCIUM 9.3 mg/dL 05/26/2015 Renal Oqe962 PHOS 3.4 mg/dL 05/26/2015 Renal Yjy418 ALBUMIN 3.4 g/dL 05/26/2015 Cbc With Differential [...] Ord2 RDW 14.3 % 04/21/2015 Free T4 Anr239 FREE T4 0.91 ng/dL 04/21/2015 %Hba1C Ukv948 % HbA1c 29749-5 5.8 % 04/21/2015 %Hba1C Nqo080 Gluc Ave 120 mg/dL 04/21/2015 Comp Metabolic Nvx701 NA 137 mEq/L 04/21/2015 Comp Metabolic Vcs708 K 3.6 mEq/L 04/21/2015 Comp Metabolic Xih206 CL 98 mEq/L 04/21/2015 Comp Metabolic Klr315 CO2 25.0 mEq/L 04/21/2015 Comp Metabolic Nig934 ANION GAP 18 04/21/2015 Comp Metabolic Gdb725 GLUCOSE 83 mg/dL 04/21/2015 Comp Metabolic Ggl501 Creat 1.6 mg/dL 04/21/2015 Comp Metabolic Qre462 eGFR 36 ml/min/1.73m2 04/21/2015 Comp Metabolic Tlw218 BUN 28 mg/dL 04/21/2015 Comp Metabolic Vad642 B/C Ratio 17.9 Ratio 04/21/2015 Comp Metabolic Aav158 CALCIUM 9.5 mg/dL 04/21/2015 Comp Metabolic Omm183 ALK PHOS 60 U/L 04/21/2015 Comp Metabolic Soy309 AST(SGOT) 22 U/L 04/21/2015 Comp Metabolic Ufx108 ALT(SGPT) 10 U/L 04/21/2015 Comp Metabolic Sxp372 BILI T 0.4 mg/dL 04/21/2015 Comp Metabolic Rer338 ALBUMIN 4.0 g/dL 04/21/2015 Comp Metabolic Dhi390 TPRO 6.8 g/dL 04/21/2015 Comp Metabolic Xtm879 GLOB 2.8 g/dL 04/21/2015 Comp Metabolic Hey209 A/G Ratio 1.4 Ratio 04/21/2015 Comp Metabolic Wfo085 Osmo 278 mOsmo 04/21/2015 Tsh Ord6 hTSH [...] Procedure Codes Date THER/PROPH/DIAG INJ SC/IM CPT-4: 85586 06/22/2017 TRIAMCINOLONE ACET INJ NOS CPT-4: J3301 06/22/2017 THER/PROPH/DIAG INJ SC/IM CPT-4: 36834 08/04/2015 TRIAMCINOLONE ACET INJ NOS CPT-4: J3301 08/04/2015 Vital Signs Date Vital 05/04/2018 Blood Pressure 1: 158/88 Code : 8480-6 BMI: 33.3 Code : 04671-7 Heart Rate 1 : 63 bpm Height: 5'1" SpO2: 98% Weight: 176 lbs 01/10/2018 Blood Pressure 1: 138/88 Code : 8480-6 BMI: 31.9 Code : 99789-8 Heart Rate 1 : 78 bpm Height: 5'1" SpO2: 99% Weight: 169 lbs 12/06/2017 Blood Pressure 1: 158/98 Code : 8480-6 BMI: 32.3 Code : 60741-2 Heart Rate 1 : 60 bpm Height: 5'1" SpO2: 100% Weight: 171 lbs 06/22/2017 Blood Pressure 1: 168/92 Code : 8480-6 BMI: 32.6 Code : 66562-7 Heart Rate 1 : 133 bpm Height: 5'1" SpO2: 97% Temperature: 37.6 (C) / 99.7 (F) Weight: 172 lbs 8 oz 03/02/2017 Blood Pressure 1: 168/90 Code : 8480-6 BMI: 35.0 Code : 53815-5 Heart Rate 1 : 80 bpm Height: 5'1" SpO2: 94% Weight: 185 lbs 01/24/2017 Blood Pressure 1: 130/68 Code : 8480-6 BMI: 35.3 Code : 93315-3 Heart Rate 1 : 66 bpm Height: 5'1" SpO2: 98% Weight: 187 lbs 10/13/2016 Blood Pressure 1: 136/74 Code : 8480-6 BMI: 35.1 Code : 09081-9 Heart Rate 1 : 71 bpm Height: 5'1" SpO2: 97% Weight: 186 lbs 08/30/2016 Blood Pressure 1: 128/80 Code : 8480-6 BMI: 35.0 Code : 64997-2 Heart Rate 1 : 75 bpm Height: 5'1" SpO2: 96% Weight: 185 lbs 8 oz 07/02/2016 Blood Pressure 1: 140/78 Code : 8480-6 Heart Rate 1: 63 bpm Height: 5'1" SpO2: 98% 06/24/2016 Blood Pressure 1: 148/100 Code: 8480-6 BMI: 34.2 Code: 41773-6 Heart Rate 1: 110 bpm Height : 5'1" SpO2: 94% Weight: 181 lbs 05/04/2016 Blood Pressure 1: 150/90 Code : 8480-6 Blood Pressure 1: 134/82 Code: 8480-6 BMI: 34.6 Code: 92255-2 Heart Rate 1: 74 bpm Height: 5'1" SpO2: 98% Weight: 183 lbs 04/06/2016 Blood Pressure 1: 156/92 Code : 8480-6 Blood Pressure 1: 158/88 Code: 8480-6 BMI: 34.8 Code: 14212-1 Heart Rate 1: 69 bpm Height: 5'1" SpO2: 97% Weight: 184 lbs 03/18/2016 Blood Pressure 1: 148/90 Code : 8480-6 BMI: 35.1 Code : 52583-2 Heart Rate 1 : 106 bpm Height: 5'1" SpO2: 94% Weight: 186 lbs 03/11/2016 Blood Pressure 1: 140/90 Code : 8480-6 BMI: 35.1 Code : 48506-7 Heart Rate 1 : 103 bpm Height: 5'1" SpO2: 96% Weight: 186 lbs 02/24/2016 Blood Pressure 1: 130/80 Code : 8480-6 BMI: 34.4 Code : 99762-7 Heart Rate 1 : 110 bpm Height: 5'1" SpO2: 96% Weight: 182 lbs 12/16/2015 Blood Pressure 1: 144/98 Code : 8480-6 BMI: 33.8 Code : 44891-9 Heart Rate 1 : 97 bpm Height: 5'1" SpO2: 98% Weight: 179 lbs 10/30/2015 Blood Pressure 1: 138/88 Code : 8480-6 BMI: 33.6 Code : 10866-0 Heart Rate 1 : 88 bpm Height: 5'1" SpO2: 98% Weight: 178 lbs 09/23/2015 Blood Pressure 1: 152/94 Code : 8480-6 BMI: 32.7 Code : 82976-1 Heart Rate 1 : 83 bpm Height: 5'1" SpO2: 97% Weight: 173 lbs 09/10/2015 Blood Pressure 1: 136/82 Code : 8480-6 BMI: 32.1 Code : 03950-4 Heart Rate 1 : 105 bpm Height: 5'1" SpO2: 97% Weight: 170 lbs 08/12/2015 Blood Pressure 1: 132/70 Code : 8480-6 BMI: 31.2 Code : 89643-0 Heart Rate 1 : 88 bpm Height: 5'1" SpO2: 95% Temperature: 36.7 (C) / 98.0 (F) Weight: 165 lbs 08/04/2015 Blood Pressure 1: 136/80 Code : 8480-6 BMI: 31.0 Code : 59323-7 Heart Rate 1 : 110 bpm Height: 5'1" SpO2: 98% Weight: 164 lbs 05/16/2015 Blood Pressure 1: 138/88 Code : 8480-6 BMI: 32.9 Code : 14247-7 Heart Rate 1 : 87 bpm Height: 5'1" SpO2: 90% Weight: 174 lbs 05/12/2015 BMI: 31.7 Code: 85225-0 Height: 5'1" Weight: 168 lbs 04/21/2015 Blood Pressure 1: 124/82 Code : 8480-6 BMI: 32.1 Code : 11855-9 Heart Rate 1 : 87 bpm Height: [...] hyperlipidemia[ICD10: E78.2] [facility] CPT-4: 10719 05/04/2018 64018 EST. PATIENT, LEVEL IV Diagnosis: Essential (primary) hypertension[ICD10: I10] Diagnosis: Interstitial pulmonary disease, unspecified[ICD10: J84.9] Diagnosis: Chronic kidney disease, stage 3 (moderate)[ICD10: N18.3] Diagnosis: Mixed hyperlipidemia[ICD10: E78.2] [facility] CPT-4: 36928 01/10/2018 81360 EST. PATIENT, LEVEL IV Diagnosis: Other specified hypothyroidism[ICD10: E03.8] Diagnosis: Essential (primary) hypertension[ICD10: I10] [facility] CPT-4: 07796 12/06/2017 51408 EST. PATIENT, LEVEL IV Diagnosis: Other malaise[ICD10: R53.81] Diagnosis: Other fatigue[ICD10: R53.83] Britney Maya MD, [facility] CPT-4 : 73185 06/22/2017 49310 EST. PATIENT, LEVEL IV Diagnosis: Acute laryngopharyngitis[ICD10: J06.0] Diagnosis: Other acute sinusitis[ICD10: J01.80] Diagnosis: Other allergic rhinitis[ICD10: J30.89] Britney Maya MD, [facility] CPT-4: 39383 03/02/2017 36116 EST. PATIENT, LEVEL IV Diagnosis: Generalized hyperhidrosis[ICD10: R61] Diagnosis: Other acute sinusitis[ICD10: J01.80] Diagnosis: Other fatigue[ICD10: R53.83] Diagnosis: Interstitial pulmonary disease, unspecified[ICD10: J84.9] Britney Maya MD, [facility] CPT-4: 28179 01/24/2017 35322 EST. PATIENT, LEVEL IV Diagnosis: Acute laryngopharyngitis[ICD10: J06.0] Diagnosis: Other acute sinusitis[ICD10: J01.80] Britney Maya MD, [facility] CPT-4: 40737 10/13/2016 ([id number]) 19713 EST. PATIENT, LEVEL IV Diagnosis: Essential (primary) hypertension[ICD10: I10] Diagnosis: Drug-induced polyneuropathy[ICD10: G62.0] Diagnosis: Impaired fasting glucose[ICD10: R73.01] Catie Maya MD, [facility] CPT-4: 88837 08/30/2016 70975 EST. PATIENT, LEVEL IV Diagnosis: Pain in thoracic spine[ICD10: M54.6] Diagnosis: Pain in left shoulder[ICD10: M25.512] Diagnosis: Zoster without complications[ICD10: B02.9] Britney Maya MD, [facility] CPT-4: 88965 07/02/2016 65714 EST. PATIENT, LEVEL III Diagnosis: Other specified hypothyroidism[ICD10: E03.8] Diagnosis: Menopausal and female climacteric states[ICD10: N95.1] Diagnosis: Essential (primary) hypertension[ICD10: I10] Britney Maya MD, [facility] CPT-4: 32534 06/24/2016 ([id number]) 90511 EST. PATIENT, LEVEL IV Diagnosis: Essential (primary) hypertension[ICD10: I10] Diagnosis: Atrophy of thyroid (acquired)[ICD10: E03.4] Diagnosis: Pain in left foot[ICD10: M79.672] Meghana Maya MD, [facility] CPT-4: 53018 05/04/2016 ([id number]) 22364 EST. PATIENT, LEVEL IV Diagnosis: Essential (primary) hypertension[ICD10: I10] Diagnosis: Pain in left leg[ICD10: M79.605] Diagnosis: Pain in left foot[ICD10: M79.672] Diagnosis: Atrophy of thyroid (acquired)[ICD10: E03.4] Meghana Maya MD, [facility] CPT-4: 56407 04/06/2016 ([id number]) 37683 EST. PATIENT, LEVEL III Diagnosis: Essential (primary) hypertension[ICD10: I10] Diagnosis: Localized edema[ICD10: R60.0] Catie Maya MD, [facility] CPT-4: 67928 03/18/2016 ([id number]) 49875 EST. PATIENT, LEVEL III Diagnosis: Essential (primary) hypertension[ICD10: I10] Diagnosis: Pain in left foot[ICD10: M79.672] Catie Maya MD, [facility] CPT-4: 98098 03/11/2016 ([id number]) 04365 EST. PATIENT, LEVEL III Diagnosis: Localized edema[ICD10: R60.0] Diagnosis: Essential (primary) hypertension[ICD10: I10] Catie Maya MD, [facility] CPT-4: 47756 02/24/2016 ([id number]) 03695 EST. PATIENT, LEVEL IV Diagnosis: Hypothyroidism, unspecified[ICD10: E03.9] Diagnosis: Essential (primary) hypertension[ICD10: I10] Meghana Maya MD, [facility] CPT-4: 57246 12/16/2015 ([id number]) 07231 EST. PATIENT, LEVEL III Diagnosis: Essential (primary) hypertension[ICD10: I10] Diagnosis: Hypothyroidism, unspecified[ICD10: E03.9] Meghana Maya MD [facility] CPT-4: 68163 10/30/2015 ([id number]) 33785 EST. PATIENT, LEVEL IV Diagnosis: Diarrhea, unspecified[ICD10: R19.7] Diagnosis: Essential (primary) hypertension[ICD10: I10] Meghana Maya MD [facility] CPT-4: 79957 09/23/2015 ([id number]) 67990 EST. PATIENT, LEVEL III Diagnosis: Essential (primary) hypertension[ICD10: I10] Diagnosis: Diarrhea, unspecified[ICD10: R19.7] Meghana Maya MD [facility] CPT-4: 68058 09/10/2015 ([id number]) 81049 EST. PATIENT, LEVEL III Diagnosis: Acute maxillary sinusitis, unspecified[ICD10: J01.00] Diagnosis: Myositis, unspecified[ICD10: M60.9] Meghana Maya MD [facility] CPT-4: 55628 08/12/2015 ([id number]) 17163 EST. PATIENT, LEVEL IV Diagnosis: Essential (primary) hypertension[ICD10: I10] Diagnosis: Pain in left leg[ICD10: M79.605] Diagnosis: Other myositis, multiple sites[ICD10: M60.89] Diagnosis: Hypothyroidism, unspecified[ICD10: E03.9] Meghana Maya MD [facility] CPT-4: 35174 08/04/2015 18817 EST. PATIENT, LEVEL III Diagnosis: Dyspnea, unspecified[ICD10: R06.00] Diagnosis: Essential (primary) hypertension[ICD10: I10] Meghana Maya MD [facility] CPT-4: 97068 05/16/2015 ([id number]) 48989 EST. PATIENT, LEVEL II Diagnosis: Dyspnea, unspecified[ICD10: R06.00] Meghana Maya MD [facility] CPT-4: 72304 05/12/2015 ([id number]) OFFICE VISIT, NEW - LEVEL 4 Diagnosis: Essential (primary) hypertension[ICD10: I10] Diagnosis: Impaired fasting glucose[ICD10: R73.01] Diagnosis: Mixed hyperlipidemia[ICD10: E78.2] Diagnosis: Hypothyroidism, unspecified[ICD10: E03.9] Diagnosis: Encounter for screening mammogram for malignant neoplasm of breast[ ICD10: Z12.31] Catie Maya MD, [facility] CPT-4: 74889 04/21/2015 Plan of Care Planned Activity Notes Codes Status Date Appointment: Britney Bower WPtel: [facility] (30 min) Complex 09/13/2018 Visit Plan: Hypertension [...] plan 05/04/2018 [facility]ment[phone] (15 min) Moderate 05/04/2018 Patient Education: Patient [...] plan 01/10/2018 Appointment: Britney Bower WPtel: [phone] [facility] (30 min) Complex 01/10/2018 Patient Education: Patient [...] of control. 12/06/2017 Appointment: Britney Bower WPtel: [facility] (15 min) Moderate 12/06/2017 Patient Education: Patient Medication Summary Completed 12/06/2017 Visit Plan: URI - Pt advised to increase fluids, vitamin C. Discussed natural and expected course of this diagnosis and need to alert me if symptoms do not follow expected course, or if any worse. RX sent to patient' s pharmacy. 06/22/2017 Appointment: [phone] [place] (15 min) Moderate 06/22/2017 Patient Education: [...] spray. 03/02/2017 Appointment: Britney Bower WPtel: [phone] [phone] (10 min) Simple 03/02/2017 Patient Education: Patient Medication Summary Completed 03/02/2017 Patient Education: Obesity Completed 03/02/2017 Visit Plan: Sinusitis - Pt has acute infection - pain in face, maxillary region, Pt informed to use decongestant, RX given to patient, sinus rinses also recommended. Call if symptoms do not show improvement. 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 Maya - will increase clonidine to BID - pt is to consider referral to dermatology - notify clinic if symptoms do not improve, if they worsen, or with any other questions or concerns. 01/24/2017 Appointment: Britney Bower WPtel: [phone] [phone] (30 min) Complex 01/24/2017 Patient Education: Patient [...] show improvement. 10/13/2016 Appointment: Britney Bower WPtel: [phone] [facility] [place] (30 min) Complex 10/13/2016 Patient Education: Patient Medication Summary Completed 10/13/2016 Patient Education: Obesity Completed 10/13/2016 Visit Plan: Hypertension - well controlled - continue with current medications, continue with no added salt diet. Pt has been encouraged to exercise daily. The pt has been advised to call the office if there are any acute concerns about change in blood pressure readings at home. 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 07/02/2016 Appointment: [phone] [place] (30 min) Complex 07/02/2016 Patient Education: Patient [...] control. 06/24/2016 Appointment: [phone] (30 min) Complex 06/24/2016 Patient Education: Patient Medication Summary Completed 06/24/2016 Patient Education: Obesity Completed 06/24/2016 Patient Education: Hypertension Completed 06/24/2016 Patient Education: Patient Medication Summary Completed 05/14/2016 Care Plan: SCREENINGMAMMOGRAPHYDIGITAL LOINC : 46511-5 Pending 05/14/2016 Visit Plan: Hypertension - well [...] painful. 05/04/2016 Appointment: [phone] (15 min) Moderate 05/04/2016 Patient Education: Patient [...] current medication. 04/06/2016 Appointment: Meghana Maya WPtel: [facility]5 [facility] (15 min) Moderate 04/06/2016 Patient Education: Patient Medication Summary Completed 04/06/2016 Patient Education: Obesity Completed 04/06/2016 Care Plan: Referral Order SNOMED-CT : [id number] Pending 04/06/2016 Visit Plan: Edema-improved with lower [...] acute concerns. 03/18/2016 Appointment: Catie Shoemaker WPtel: [phone] [place] (15 min) Moderate 03/18/2016 Patient Education: [...] xray left foot-recommend she follow up with embedder at regarding left foot pain/numbness/weakness. Patient has noticed worsening symptoms since decreasing prednisone. 03/11/2016 Appointment: Catie Shoemaker WPtel: [phone] (15 min) Moderate 03/11/2016 Patient Education: Patient Medication Summary Completed 03/11/2016 Patient Education: Obesity Completed 03/11/2016 Appointment: Catie Shoemaker WPtel: [phone] [phone] (30 min) Complex 03/09/2016 Visit Plan: Edema [...] 25mg daily 02/24/2016 Appointment: [facility] Shoemaker [facility]Ptel[phone] (15 min) Moderate 02/24/2016 Patient Education: Patient Medication Summary Completed 02/24/2016 Patient Education: Obesity Completed 02/24/2016 Patient Education: Hypertension Completed 02/24/2016 Appointment: Meghana Maya WPtel: [facility] (15 min) Moderate 02/23/2016 Visit Plan: Hypertension [...] control. 12/16/2015 Appointment: Meghana Maya WPtel: [phone] [facility] (15 min) Moderate 12/16/2015 Patient Education: Patient [...] min) Complex 10/23/2015 Appointment: [phone] (15 min) Moderate 10/23/2015 Visit Plan: Hypertension [...] home. 09/10/2015 Appointment: Meghana Maya WPtel: [phone] [facility] (15 min) Moderate 09/10/2015 Patient Education: Patient [...] Complex 07/24/2015 Appointment: Meghana Maya WPtel: [phone] [facility] (15 min) Moderate 07/24/2015 Appointment: Lab Draw [...] Completed 04/21/2015 Care Plan: SCREENINGMAMMOGRAPHYDIGITAL LOINC : 75893-7 Ordered 04/21/2015 Appointment: Meghana Maya WPtel: [facility] [place] ([place] New Patient 04/01/2015 Referral: Sharon [...] VQ scan negative DR. CROUCH IS THE BREAD SLICER MACHINE WHO SPECIALIZES IN FOOT AND ANKLE DISEASE AT [address] INCREASE THE METOPROLOL TO 1.5 PILLS [...] change in blood pressure readings at home. 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 Maya - will increase clonidine to BID - pt is to consider referral to dermatology - notify clinic if symptoms do not improve, if they worsen, or with any other questions or concerns. probiotic - callie [employer], probiotic pearls, etc - take three times [...]
--- OUTSIDE RECORDS SUMMARY | 2018-09-30 13:35 | XMS REPORT | CCD ---
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/[address]: 508025098 Never smoker 04/21/2015 Alcohol history Unknown occasionally drinks alcohol 04/21/2015 Allergies, Adverse Reactions, Alerts Substance Reaction Codes Entered Date Inactivated Date Status [id number] REDUCTASE INHIBITORS myalgias Unknown 2015 No Inactive [...] Start Date Stop Date Status Fill Instructions clonidine HCl 0.1 mg tablet RxNorm: 453211 TAKE ONE TABLET BY MOUTH TWICE A DAY 09/14/2018 02/10/2019 Active losartan 25 mg tablet RxNorm: 899563 TAKE ONE TABLET BY MOUTH DAILY 09/14/2018 11/12/2018 Active venlafaxine ER 150 mg capsule,extended release 24 hr RxNorm: 090353 TAKE ONE CAPSULE BY MOUTH DAILY 05/15/20182018 Active Lipitor 20 mg tablet RxNorm: 598887 TAKE ONE TABLET BY MOUTH DAILY 05/15/2018 11/10/2018 Active losartan 25 mg tablet RxNorm: 193768 TAKE ONE TABLET BY MOUTH DAILY 04/17/2018 07/15/2018 Inactive losartan 25 mg tablet RxNorm: 591687 TAKE ONE TABLET BY MOUTH DAILY 04/17/2018 04/16/2018 Inactive Lipitor 20 mg tablet RxNorm: 648468 1 Tablet(s) PO daily 201701/11/2018 Inactive Lipitor 20 mg tablet RxNorm: 422428 1 Tablet(s) PO daily 201705/11/2018 Inactive clonidine HCl 0.1 mg tablet RxNorm: 101321 TAKE ONE TABLET BY MOUTH TWICE A DAY 01/04/2018 07/02/2018 Inactive potassium chloride ER 10 mEq tablet,extended release RxNorm: 976736 TAKE ONE TABLET BY MOUTH DAILY 01/04/20182018 Inactive losartan 25 mg tablet RxNorm: 127920 TAKE ONE TABLET BY MOUTH DAILY 01/03/2018 04/02/2018 Inactive levothyroxine 50 mcg tablet RxNorm: 360658 1 Tablet(s) PO daily 12/08/2017 09/12/2018 Inactive losartan 25 mg tablet RxNorm: 576232 1 Tablet(s) PO daily 201701/02/2018 Inactive venlafaxine ER 150 mg capsule,extended release 24 hr RxNorm: 220245 TAKE ONE CAPSULE BY MOUTH DAILY 12/06/20172017 Inactive metoprolol succinate ER 50 mg tablet,extended release 24 hr RxNorm: 077387 TAKE ONE TABLET BY MOUTH DAILY 08/29/201701/25 Inactive metoprolol succinate ER 50 mg tablet,extended release 24 hr RxNorm: 391255 TAKE ONE TABLET BY MOUTH DAILY 08/29/201708/28 Inactive metoprolol succinate ER 50 mg tablet,extended release 24 hr RxNorm: 927641 TAKE ONE TABLET BY MOUTH DAILY 08/29/201708/28 Inactive Tamiflu 75 mg capsule RxNorm: 562219 1 Capsule(s) PO BID 201606/26/2017 Inactive Kenalog 40 mg/mL suspension for injection RxNorm: 4511428 1.5 Milliliter(s) Inj 06/22/2017 06/22/2017 Inactive clonidine HCl 0.1 mg tablet RxNorm: 703258 TAKE ONE TABLET BY MOUTH TWICE A DAY 06/06/2017 12/02/2017 Inactive potassium chloride ER 10 mEq tablet,extended release RxNorm: 012819 TAKE ONE TABLET BY MOUTH DAILY 06/06/20172017 Inactive venlafaxine ER 150 mg capsule,extended release 24 hr RxNorm: 278782 TAKE ONE CAPSULE BY MOUTH DAILY 05/23/20172017 Inactive Zithromax 500 mg tablet RxNorm: 406889 1 Tablet(s) PO daily 05/22/2017 Inactive potassium chloride ER 10 mEq tablet,extended release RxNorm: 211253 TAKE ONE TABLET BY MOUTH DAILY 04/21/20172016 Inactive potassium chloride ER 10 mEq tablet,extended release RxNorm: 680806 TAKE ONE TABLET BY MOUTH DAILY 03/16/20172016 Inactive Zithromax Z-Jacek 250 mg tablet RxNorm: 374330 1 Tablet(s) PO UD 03/02/2017 06/21/2017 Inactive venlafaxine ER 150 mg capsule,extended release 24 hr RxNorm: 239886 Capsule(s) TAKE ONE CAPSULE BY MOUTH DAILY 02/17/2017 02/16/2017 Inactive venlafaxine ER 150 mg capsule,extended release 24 hr RxNorm: 262752 TAKE ONE CAPSULE BY MOUTH DAILY 02/17/20172017 Inactive clonidine HCl 0.1 mg tablet RxNorm: 063574 TAKE ONE TABLET BY MOUTH EVERY NIGHT AT BEDTIME 02/14/2017 01/03/2018 Inactive metoprolol succinate ER 50 mg tablet,extended release 24 hr RxNorm: 967379 TAKE ONE TABLET BY MOUTH DAILY 02/14/201708/12 Inactive Protonix 40 mg tablet,delayed release RxNorm: 809902 TAKE ONE TABLET BY MOUTH DAILY WHILE ON PREDNISONE 01/25/201709/12 Inactive Zithromax Z-Jacek 250 mg tablet RxNorm: 814814 1 Tablet(s) PO UD 01/24/2017 01/03/2018 Inactive potassium chloride ER 10 mEq tablet,extended release RxNorm: 739078 TAKE ONE TABLET BY MOUTH DAILY 01/17/20172016 Inactive clonidine HCl 0.1 mg tablet RxNorm: 218323 TAKE ONE TABLET BY MOUTH EVERY NIGHT AT BEDTIME 01/17/2017 02/13/2017 Inactive potassium chloride ER 10 mEq tablet,extended release RxNorm: 889782 TAKE ONE TABLET BY MOUTH DAILY 12/16/20162016 Inactive venlafaxine ER 150 mg capsule,extended release 24 hr RxNorm: 008591 TAKE ONE CAPSULE BY MOUTH DAILY 11/18/20162016 Inactive clonidine HCl 0.1 mg tablet RxNorm: 525395 TAKE ONE TABLET BY MOUTH EVERY NIGHT AT BEDTIME 11/08/2016 01/06/2017 Inactive clonidine HCl 0.1 mg tablet RxNorm: 227007 1 Tablet(s) BID 01/16/2017 Inactive potassium chloride ER 10 mEq tablet,extended release RxNorm: 325706 TAKE ONE TABLET BY MOUTH DAILY 10/15/20162016 Inactive Zithromax Z-Jacek 250 mg tablet RxNorm: 315903 1 Tablet(s) PO UD 10/13/2016 01/03/2018 Inactive potassium chloride ER 10 mEq tablet,extended release RxNorm: 040096 TAKE ONE TABLET BY MOUTH DAILY 10/12/20162016 Inactive potassium chloride ER 10 mEq tablet,extended release RxNorm: 440927 Tablet(s) BID TAKE ONE TABLET BY MOUTH TWICE DAILY 09/17/2016 10/11/2016 Inactive potassium chloride ER 10 mEq tablet,extended release RxNorm: 451359 TAKE ONE TABLET BY MOUTH DAILY 09/13/20162016 Inactive clonidine HCl 0.1 mg tablet RxNorm: 512023 Tablet(s) TAKE ONE TABLET BY MOUTH EVERY NIGHT AT BEDTIME 08/12/20162016 Inactive gabapentin 300 mg capsule RxNorm: 765446 1 Capsule(s) PO Q No Stop Date Active venlafaxine ER 150 mg capsule,extended release 24 hr RxNorm: 209570 TAKE ONE CAPSULE BY MOUTH DAILY 08/09/20162016 Inactive metoprolol succinate ER 50 mg tablet,extended release 24 hr RxNorm: 627355 TAKE ONE TABLET BY MOUTH DAILY 07/29/201601/24 Inactive clonidine HCl 0.1 mg tablet RxNorm: 282050 TAKE ONE TABLET BY MOUTH EVERY NIGHT AT BEDTIME 07/21/2016 08/11/2016 Inactive potassium chloride ER 10 mEq tablet,extended release RxNorm: 846250 TAKE ONE TABLET BY MOUTH DAILY 07/14/20162016 Inactive Prescriber not associated with this practice or location acyclovir 400 mg tablet RxNorm: 764776 2 Tablet(s) PO QID 07/0207/11/2016 Inactive cyclobenzaprine 5 mg tablet RxNorm: 986731 1-2 Tablet(s) PO TID as needed 07/02/2016 07/06/2016 Inactive capsaicin 0.1 % topical cream RxNorm: 317962 1 Application TOP TID as needed 07/02/2016 09/12/2018 Inactive Protonix 40 mg tablet,delayed release RxNorm: 487146 TAKE ONE TABLET BY MOUTH DAILY WHILE ON PREDNISONE 06/29/201612/25 Inactive clonidine HCl 0.1 mg tablet RxNorm: 511256 1 Tablet(s) PO QHS 06/25/2016 07/20/2016 Inactive calcium carbonate 500 mg calcium (1,250 mg) tablet RxNorm: 863261 TAKE ONE TABLET BY MOUTH DAILY WHILE ON PREDNISONE. MAY STOP TAKING WHEN PREDNISONE IS COMPLETE 06/01/2016 09/12/2018 Inactive Vitamin D3 1,000 unit tablet RxNorm: 660086 1 Tablet(s) PO daily . May stop taking once prednisone is complete. 04/26/2016 09/12/2018 Inactive metoprolol succinate ER 50 mg tablet,extended release 24 hr RxNorm: 051255 1.5 Tablet(s) PO daily 04/06/2016 06/23/2016 Inactive prednisone 10 mg tablet RxNorm: 492886 1 Tablet(s) PO daily 12/201506/21/2017 Inactive metoprolol succinate ER 50 mg tablet,extended release 24 hr RxNorm: 133232 1 Tablet(s) PO daily 03/18/2016 04/05/2016 Inactive amlodipine 10 mg tablet RxNorm: 982281 1/2 Tablet(s) PO daily 02/24/2016 06/21/2016 Inactive metoprolol succinate ER 25 mg tablet,extended release 24 hr RxNorm: 964955 1 Tablet(s) PO daily 02/24/2016 03/16/2016 Inactive calcium carbonate 500 mg calcium (1,250 mg) tablet RxNorm: 288531 TAKE ONE TABLET BY MOUTH DAILY WHILE ON PREDNISONE. MAY STOP TAKING WHEN PREDNISONE IS COMPLETE 02/16/2016 05/15/2016 Inactive Protonix 40 mg tablet,delayed release RxNorm: 834628 TAKE ONE TABLET BY MOUTH DAILY WHILE ON PREDNISONE 02/10/201605/09 Inactive venlafaxine ER 150 mg capsule,extended release 24 hr RxNorm: 340597 Capsule(s) TAKE ONE CAPSULE BY MOUTH DAILY 12/10/2015 04/07/2016 Inactive calcium carbonate 500 mg calcium (1,250 mg) tablet RxNorm: 883493 1 Tablet(s) PO daily 12/01/2015 01/29/2016 Inactive Vitamin D3 1,000 unit tablet RxNorm: 614952 1 Tablet(s) PO daily 12/01/2015 03/29/2016 Inactive levothyroxine 50 mcg tablet RxNorm: 216371 1 Tablet(s) PO daily 12/01/2015 11/24/2016 Inactive amlodipine 10 mg tablet RxNorm: 343527 1 Tablet(s) PO daily 11/18/2015 Inactive amlodipine 10 mg tablet RxNorm: 262296 1 Tablet(s) PO daily 02/23/2016 Inactive amlodipine 5 mg tablet RxNorm: 443943 1 Tablet(s) PO daily 11/18/2015 Inactive venlafaxine ER 150 mg capsule,extended release 24 hr RxNorm: 209371 TAKE ONE CAPSULE BY MOUTH DAILY 11/13/20152015 Inactive Protonix 40 mg tablet,delayed release RxNorm: 467957 1 Tablet(s) PO daily while on prednisone 2015 02/09/2016 Inactive prednisone 10 mg tablet RxNorm: 596739 2 Tablet(s) PO UD 201504/01/2016 Inactive 60mg for 2 days, then 50mg for 2 days, then 40mg for 2 days, then 30mg for 2 days, then 20mg for 2 days, then 10mg for 2 days, then 5mg for 2 days potassium chloride ER 10 mEq tablet,extended release RxNorm: 867416 TAKE ONE TABLET BY MOUTH DAILY 09/22/20152015 Inactive venlafaxine ER 150 mg capsule,extended release 24 hr RxNorm: 839287 TAKE ONE CAPSULE BY MOUTH DAILY 09/08/20152015 Inactive cefdinir 300 mg capsule RxNorm: 550650 1 Capsule(s) PO BID 08/22/2015 Inactive cefdinir 300 mg capsule RxNorm: 941161 1 Capsule(s) PO BID 08/18/2015 Inactive Kenalog 40 mg/mL suspension for injection RxNorm: 0268963 1 Milliliter(s) Inj 08/04/2015 08/04/2015 Inactive triamterene 37.5 mg-hydrochlorothiazide 25 mg tablet RxNorm: 806836 1 Tablet(s) PO BID 06/17/2015 08/03/2015 Inactive potassium chloride ER 10 mEq tablet,extended release RxNorm: 005829 1 Tablet(s) PO daily 05/30/2015 08/03/2015 Inactive Levaquin 250 mg tablet RxNorm: 751690 Tablet(s) PO UD 500 mg day one, then 250 mg day 2-7 05/27/2015 08/03/2015 Inactive prednisone 10 mg tablet RxNorm: 111418 Tablet(s) PO UD 201410/29/2015 Inactive 60mg for 2 days, then 50mg for 2 days, then 40mg for 2 days, then 30mg for 2 days, then 20mg for 2 days, then 10mg for 2 days, then 5mg for 2 days albuterol sulfate 1.25 mg/3 mL solution for nebulization RxNorm: 117248 3 Milliliter(s) INH Q4-6H as needed dyspnea 05/23/2015 09/12/2018 Inactive Zithromax 500 mg tablet RxNorm: 593047 1 Tablet(s) PO daily 05/15/2015 Inactive Zithromax 500 mg tablet RxNorm: 109507 1 Tablet(s) PO daily 05/20/2015 Inactive prednisone 20 mg tablet RxNorm: 697274 3 Tablet(s) PO daily 05/16/2015 Inactive venlafaxine ER 150 mg capsule,extended release 24 hr RxNorm: 378422 TAKE ONE CAPSULE BY MOUTH DAILY 05/12/20152015 Inactive Keflex 500 mg capsule RxNorm: 789028 1 Capsule(s) PO TID 201405/18/2015 Inactive simvastatin 20 mg tablet RxNorm: 056808 1 Tablet(s) PO daily 04/09/2015 Inactive simvastatin 20 mg tablet RxNorm: 003908 1 Tablet(s) PO daily 08/11/2015 Inactive venlafaxine ER 150 mg capsule,extended release 24 hr RxNorm: 725923 TAKE ONE CAPSULE BY MOUTH DAILY 04/08/20152014 Inactive amlodipine 5 mg tablet RxNorm: 553160 1 Tablet(s) PO daily 04/201503/06/2015 Inactive amlodipine 5 mg tablet RxNorm: 417724 1 Tablet(s) PO daily 04/201507/04/2015 Inactive venlafaxine ER 150 mg capsule,extended release 24 hr RxNorm: 151634 1 Capsule(s) PO daily 01/29/2015 03/29/2015 Inactive Co Q-10 oral RxNorm: 39646 oral No Start Date Active gabapentin 100 mg capsule RxNorm: 246071 1 Capsule(s) PO QAM No Start Date Active albuterol sulfate 1.25 mg/3 mL solution for nebulization RxNorm: 404467 3 Milliliter(s) INH Q4-6H as needed dyspnea No Start Date 05/22/2015 Inactive levothyroxine 50 mcg tablet RxNorm: 238305 1 Tablet(s) PO daily No Start Date 11/30/2015 Inactive metoprolol succinate ER 50 mg tablet,extended release 24 hr RxNorm: 593036 1 Tablet(s) PO daily No Start Date 2018 Inactive gabapentin 300 mg capsule RxNorm: 629682 1 Capsule(s) PO QHS No Start Date 08/09/2016 Inactive vitamin B complex oral RxNorm: 75188 oral No Start Date 09/12/2018 Inactive Vitamin D3 1,000 unit tablet RxNorm: 856844 1 Tablet(s) PO daily No Start Date 11/30/2015 Inactive Protonix 40 mg tablet,delayed release RxNorm: 867046 1 Tablet(s) PO daily while on prednisone No Start Date 10/30/2015 Inactive calcium carbonate oral RxNorm: oral No Start Date 11/30/2015 Inactive potassium chloride ER 10 mEq tablet,extended release RxNorm: 110634 1 Tablet(s) PO daily No Start Date 05/29/2015 Inactive Levaquin 250 mg tablet RxNorm: 834464 Tablet(s) PO UD 500 mg day one, then 250 mg day 2-7 No Start Date 05/26/2015 Inactive triamterene 37.5 mg-hydrochlorothiazide 25 mg tablet RxNorm: 501878 1 Tablet(s) PO BID No Start Date 06/16/2015 Inactive prednisone 10 mg tablet RxNorm: 312735 Tablet(s) PO UD No Start Date 05/26/2015 Inactive 60mg for 2 days, then 50mg for 2 days, then 40mg for 2 days, then 30mg for 2 days, then 20mg for 2 days, then 10mg for 2 days, then 5mg for 2 days venlafaxine ER 150 mg capsule,extended release 24 hr RxNorm: 834374 1 Capsule(s) PO daily No Start Date 01/28/2015 Inactive Medication Administered Medication Codes Instructions Start Date Status Kenalog 40 mg/mL suspension for injection RxNorm: 1857597 1.5Milliliter 06/22/2017 No longer Active Kenalog 40 mg/mL suspension for injection RxNorm: 1142330 1Milliliter 08/04/2015 No longer Active Immunizations No [...] Observation Code Item Item Code Result Date Comp Metabolic Htf393 NA 140 mEq/L 01/10/2018 Comp Metabolic Rfw047 K 3.8 mEq/L 01/10/2018 Comp Metabolic Gmz752 CL 106 mEq/L 01/10/2018 Comp Metabolic Xre703 CO2 25.0 mEq/L 01/10/2018 Comp Metabolic Wsc274 ANION GAP 13 01/10/2018 Comp Metabolic Qvu379 GLUCOSE 110 mg/dL 01/10/2018 Comp Metabolic Urr961 Creat 1.5 mg/dL 01/10/2018 Comp Metabolic Nbr940 eGFR 37 ml/min/1.73m2 01/10/2018 Comp Metabolic Hxl637 BUN 23 mg/dL 01/10/2018 Comp Metabolic Rdx490 B/C Ratio 15.3 Ratio 01/10/2018 Comp Metabolic Fju899 CALCIUM 9.2 mg/dL 01/10/2018 Comp Metabolic Lgy013 ALK PHOS 87 U/L 01/10/2018 Comp Metabolic Qwj005 AST(SGOT) 15 U/L 01/10/2018 Comp Metabolic Bcl630 ALT(SGPT) 9 U/L 01/10/2018 Comp Metabolic Udt978 BILI T 0.4 mg/dL 01/10/2018 Comp Metabolic Red109 ALBUMIN 3.8 g/dL 01/10/2018 Comp Metabolic Cud837 TPRO 6.2 g/dL 01/10/2018 Comp Metabolic Vyt427 GLOB 2.4 g/dL 01/10/2018 Comp Metabolic Mga167 A/G Ratio 1.6 Ratio 01/10/2018 Comp Metabolic Xji273 Osmo 284 mOsmo 01/10/2018 C-Reactive Protein Qnt [...] 27.6 pg 01/10/2018 Cbc With Differential Ord2 Thayer% 15.2 % 01/10/2018 Cbc With Differential Ord2 [...] 1.47 K/ul 01/10/2018 Cbc With Differential Ord2 Thayer ABS# 1.0 K/ul 01/10/2018 Cbc With Differential Ord2 Eos ABS# 0.1 K/ul 01/10/2018 Cbc With Differential Ord2 Baso ABS# 0.0 K/ul 01/10/2018 Sed Rate Ord21 ESR 12 mm/hr 01/10/2018 Free T4 Fol359 FREE T4 0.57 ng/dL 12/06/2017 Tsh Ord6 TSH (3rd IS) 7.40 uIU/mL 12/06/2017 C A/B FLU 1847808 Influenza A Scr Negative 06/22/2017 C A/B FLU 2633161 Influenza B Scr Negative 06/22/2017 C A/B FLU 3801708 Influenza Intrp B AG: PRID:PT:NOSE:NOM:IF See Footnote 06/22/2017 Comp Metabolic Sgl883 NA 140 mEq/L 08/30/2016 Comp Metabolic Zty793 K 3.3 mEq/L 08/30/2016 Comp Metabolic Mum995 CL 104 mEq/L 08/30/2016 Comp Metabolic Hbq391 CO2 26.0 mEq/L 08/30/2016 Comp Metabolic Xut483 ANION GAP 13 08/30/2016 Comp Metabolic Itp538 GLUCOSE 143 mg/dL 08/30/2016 Comp Metabolic Iws039 Creat 1.3 mg/dL 08/30/2016 Comp Metabolic Lms605 eGFR 43 ml/min/1.73m2 08/30/2016 Comp Metabolic Gmk380 BUN 19 mg/dL 08/30/2016 Comp Metabolic Pdl784 B/C Ratio 14.3 Ratio 08/30/2016 Comp Metabolic Srn946 CALCIUM 10.0 mg/dL 08/30/2016 Comp Metabolic Lxh275 ALK PHOS 67 U/L 08/30/2016 Comp Metabolic Dam524 AST(SGOT) 28 U/L 08/30/2016 Comp Metabolic Grz894 ALT(SGPT) 43 U/L 08/30/2016 Comp Metabolic Deo361 BILI T 0.4 mg/dL 08/30/2016 Comp Metabolic Pra759 ALBUMIN 4.0 g/dL 08/30/2016 Comp Metabolic Szp029 TPRO 6.2 g/dL 08/30/2016 Comp Metabolic Enn569 GLOB 2.2 g/dL 08/30/2016 Comp Metabolic Tct121 A/G Ratio 1.8 Ratio 08/30/2016 Comp Metabolic Qox055 Osmo 284 mOsmo 08/30/2016 %Hba1C Dwy386 % HbA1c 38446-8 6.1 % 08/30/2016 %Hba1C Awd454 Gluc Ave 128 mg/dL 08/30/2016 Free T4 Cyg932 FREE T4 0.75 ng/dL 06/25/2016 Tsh Ord6 [...] Ord90 Mag 2.1 mg/dL 12/16/2015 Free T4 Eet280 FREE T4 0.92 ng/dL 12/16/2015 Tsh Ord6 [...] 28.5 pg 08/04/2015 Cbc With Differential Ord2 Thayer% 6.1 % 08/04/2015 Cbc With Differential Ord2 [...] 0.73 K/ul 08/04/2015 Cbc With Differential Ord2 Thayer ABS# 0.5 K/ul 08/04/2015 Cbc With Differential Ord2 Eos ABS# 0.1 K/ul 08/04/2015 Cbc With Differential Ord2 Baso ABS# 0.0 K/ul 08/04/2015 Cbc With Differential Ord2 New Analyzer Notice Please note new ref ranges starting 07-09-2015 due to implemntation of new five part differential hematolgy analyzer. 08/04/2015 C-Reactive Protein Qnt Crqnt CRP 0.8 mg/dl 08/04/2015 Comp Metabolic Pka283 NA 139 mEq/L 08/04/2015 Comp Metabolic Jcd344 K 3.4 mEq/L 08/04/2015 Comp Metabolic Kbm052 CL 109 mEq/L 08/04/2015 Comp Metabolic Sxt016 CO2 22.0 mEq/L 08/04/2015 Comp Metabolic Sgw821 ANION GAP 11 08/04/2015 Comp Metabolic Aoc708 GLUCOSE 177 mg/dL 08/04/2015 Comp Metabolic Mrf462 Creat 1.0 mg/dL 08/04/2015 Comp Metabolic Ori019 eGFR 64 ml/min/1.73m2 08/04/2015 Comp Metabolic Xnl054 BUN 35 mg/dL 08/04/2015 Comp Metabolic Kcj814 B/C Ratio 36.8 Ratio 08/04/2015 Comp Metabolic Nfp734 CALCIUM 8.5 mg/dL 08/04/2015 Comp Metabolic Veg410 ALK PHOS 57 U/L 08/04/2015 Comp Metabolic Dsp882 AST(SGOT) 21 U/L 08/04/2015 Comp Metabolic Gzj041 ALT(SGPT) 63 U/L 08/04/2015 Comp Metabolic Jmx556 BILI T 0.3 mg/dL 08/04/2015 Comp Metabolic Gpx527 ALBUMIN 3.1 g/dL 08/04/2015 Comp Metabolic Wtr526 TPRO 5.1 g/dL 08/04/2015 Comp Metabolic Kcz656 GLOB 2.0 g/dL 08/04/2015 Comp Metabolic Vam569 A/G Ratio 1.6 Ratio 08/04/2015 Comp Metabolic Aan281 Osmo 290 mOsmo 08/04/2015 Cpk Ord61 CPK 52 U/L 08/04/2015 Random Urine Protein/Creatinine Ratio Bmr9667 U Prot 8.5 mg/dl 05/27/2015 Random Urine Protein/Creatinine Ratio Ibz1684 U CREAT 201.0 mg/dL 05/27/2015 Random Urine Protein/Creatinine Ratio Sii6901 R MTP/Creat Ratio 0.04 05/27/2015 Urinalysis Ord28 [...] hours from collection if refrigerated) 05/27/2015 Renal Sqb523 NA 136 mEq/L 05/26/2015 Renal Hyw695 K 3.3 mEq/L 05/26/2015 Renal Ocz405 CL 99 mEq/L 05/26/2015 Renal Uog227 CO2 25.0 mEq/L 05/26/2015 Renal Iby362 ANION GAP 15 05/26/2015 Renal Ijd088 Osmo 274 mOsmo 05/26/2015 Renal Xij152 GLUCOSE 106 mg/dL 05/26/2015 Renal Due579 BUN 17 mg/dL 05/26/2015 Renal Anw413 Creat 1.4 mg/dL 05/26/2015 Renal Hir102 eGFR 40 ml/min/1.73m2 05/26/2015 Renal Qsx639 B/C Ratio 12.0 Ratio 05/26/2015 Renal Nat815 CALCIUM 9.3 mg/dL 05/26/2015 Renal Dqd792 PHOS 3.4 mg/dL 05/26/2015 Renal Qrx942 ALBUMIN 3.4 g/dL 05/26/2015 Cbc With Differential [...] Ord2 RDW 14.3 % 04/21/2015 Free T4 Sih396 FREE T4 0.91 ng/dL 04/21/2015 %Hba1C Djs072 % HbA1c 05375-9 5.8 % 04/21/2015 %Hba1C Nsd083 Gluc Ave 120 mg/dL 04/21/2015 Comp Metabolic Mar663 NA 137 mEq/L 04/21/2015 Comp Metabolic Huh008 K 3.6 mEq/L 04/21/2015 Comp Metabolic Owe220 CL 98 mEq/L 04/21/2015 Comp Metabolic Iot049 CO2 25.0 mEq/L 04/21/2015 Comp Metabolic Ggv628 ANION GAP 18 04/21/2015 Comp Metabolic Vtg272 GLUCOSE 83 mg/dL 04/21/2015 Comp Metabolic Rrk317 Creat 1.6 mg/dL 04/21/2015 Comp Metabolic Ekn267 eGFR 36 ml/min/1.73m2 04/21/2015 Comp Metabolic Ifc424 BUN 28 mg/dL 04/21/2015 Comp Metabolic Qml019 B/C Ratio 17.9 Ratio 04/21/2015 Comp Metabolic Duw236 CALCIUM 9.5 mg/dL 04/21/2015 Comp Metabolic Rdv998 ALK PHOS 60 U/L 04/21/2015 Comp Metabolic Eop597 AST(SGOT) 22 U/L 04/21/2015 Comp Metabolic Cso783 ALT(SGPT) 10 U/L 04/21/2015 Comp Metabolic Bdr002 BILI T 0.4 mg/dL 04/21/2015 Comp Metabolic Ykn047 ALBUMIN 4.0 g/dL 04/21/2015 Comp Metabolic Ejy753 TPRO 6.8 g/dL 04/21/2015 Comp Metabolic Nca106 GLOB 2.8 g/dL 04/21/2015 Comp Metabolic Viv936 A/G Ratio 1.4 Ratio 04/21/2015 Comp Metabolic Iwd482 Osmo 278 mOsmo 04/21/2015 Tsh Ord6 hTSH [...] Procedure Codes Date THER/PROPH/DIAG INJ SC/IM CPT-4: 84458 06/22/2017 TRIAMCINOLONE ACET INJ NOS CPT-4: J3301 06/22/2017 THER/PROPH/DIAG INJ SC/IM CPT-4: 47594 08/04/2015 TRIAMCINOLONE ACET INJ NOS CPT-4: J3301 08/04/2015 Vital Signs Date Vital 05/04/2018 Blood Pressure 1: 158/88 Code : 8480-6 BMI: 33.3 Code : 89388-9 Heart Rate 1 : 63 bpm Height: 5'1" SpO2: 98% Weight: 176 lbs 01/10/2018 Blood Pressure 1: 138/88 Code : 8480-6 BMI: 31.9 Code : 28525-8 Heart Rate 1 : 78 bpm Height: 5'1" SpO2: 99% Weight: 169 lbs 12/06/2017 Blood Pressure 1: 158/98 Code : 8480-6 BMI: 32.3 Code : 85028-3 Heart Rate 1 : 60 bpm Height: 5'1" SpO2: 100% Weight: 171 lbs 06/22/2017 Blood Pressure 1: 168/92 Code : 8480-6 BMI: 32.6 Code : 74194-9 Heart Rate 1 : 133 bpm Height: 5'1" SpO2: 97% Temperature: 37.6 (C) / 99.7 (F) Weight: 172 lbs 8 oz 03/02/2017 Blood Pressure 1: 168/90 Code : 8480-6 BMI: 35.0 Code : 62359-4 Heart Rate 1 : 80 bpm Height: 5'1" SpO2: 94% Weight: 185 lbs 01/24/2017 Blood Pressure 1: 130/68 Code : 8480-6 BMI: 35.3 Code : 68535-1 Heart Rate 1 : 66 bpm Height: 5'1" SpO2: 98% Weight: 187 lbs 10/13/2016 Blood Pressure 1: 136/74 Code : 8480-6 BMI: 35.1 Code : 81631-7 Heart Rate 1 : 71 bpm Height: 5'1" SpO2: 97% Weight: 186 lbs 08/30/2016 Blood Pressure 1: 128/80 Code : 8480-6 BMI: 35.0 Code : 23000-1 Heart Rate 1 : 75 bpm Height: 5'1" SpO2: 96% Weight: 185 lbs 8 oz 07/02/2016 Blood Pressure 1: 140/78 Code : 8480-6 Heart Rate 1: 63 bpm Height: 5'1" SpO2: 98% 06/24/2016 Blood Pressure 1: 148/100 Code: 8480-6 BMI: 34.2 Code: 20924-0 Heart Rate 1: 110 bpm Height : 5'1" SpO2: 94% Weight: 181 lbs 05/04/2016 Blood Pressure 1: 150/90 Code : 8480-6 Blood Pressure 1: 134/82 Code: 8480-6 BMI: 34.6 Code: 21254-2 Heart Rate 1: 74 bpm Height: 5'1" SpO2: 98% Weight: 183 lbs 04/06/2016 Blood Pressure 1: 156/92 Code : 8480-6 Blood Pressure 1: 158/88 Code: 8480-6 BMI: 34.8 Code: 61255-3 Heart Rate 1: 69 bpm Height: 5'1" SpO2: 97% Weight: 184 lbs 03/18/2016 Blood Pressure 1: 148/90 Code : 8480-6 BMI: 35.1 Code : 50718-5 Heart Rate 1 : 106 bpm Height: 5'1" SpO2: 94% Weight: 186 lbs 03/11/2016 Blood Pressure 1: 140/90 Code : 8480-6 BMI: 35.1 Code : 85506-7 Heart Rate 1 : 103 bpm Height: 5'1" SpO2: 96% Weight: 186 lbs 02/24/2016 Blood Pressure 1: 130/80 Code : 8480-6 BMI: 34.4 Code : 79067-4 Heart Rate 1 : 110 bpm Height: 5'1" SpO2: 96% Weight: 182 lbs 12/16/2015 Blood Pressure 1: 144/98 Code : 8480-6 BMI: 33.8 Code : 29348-4 Heart Rate 1 : 97 bpm Height: 5'1" SpO2: 98% Weight: 179 lbs 10/30/2015 Blood Pressure 1: 138/88 Code : 8480-6 BMI: 33.6 Code : 27477-5 Heart Rate 1 : 88 bpm Height: 5'1" SpO2: 98% Weight: 178 lbs 09/23/2015 Blood Pressure 1: 152/94 Code : 8480-6 BMI: 32.7 Code : 18282-2 Heart Rate 1 : 83 bpm Height: 5'1" SpO2: 97% Weight: 173 lbs 09/10/2015 Blood Pressure 1: 136/82 Code : 8480-6 BMI: 32.1 Code : 52702-1 Heart Rate 1 : 105 bpm Height: 5'1" SpO2: 97% Weight: 170 lbs 08/12/2015 Blood Pressure 1: 132/70 Code : 8480-6 BMI: 31.2 Code : 10171-4 Heart Rate 1 : 88 bpm Height: 5'1" SpO2: 95% Temperature: 36.7 (C) / 98.0 (F) Weight: 165 lbs 08/04/2015 Blood Pressure 1: 136/80 Code : 8480-6 BMI: 31.0 Code : 82915-5 Heart Rate 1 : 110 bpm Height: 5'1" SpO2: 98% Weight: 164 lbs 05/16/2015 Blood Pressure 1: 138/88 Code : 8480-6 BMI: 32.9 Code : 08254-1 Heart Rate 1 : 87 bpm Height: 5'1" SpO2: 90% Weight: 174 lbs 05/12/2015 BMI: 31.7 Code: 89258-0 Height: 5'1" Weight: 168 lbs 04/21/2015 Blood Pressure 1: 124/82 Code : 8480-6 BMI: 32.1 Code : 12975-6 Heart Rate 1 : 87 bpm Height: [...] data Encounters Encounter Performer Location Codes Date 70274 EST. PATIENT, LEVEL IV Diagnosis: Essential (primary) hypertension[ICD10: I10] Diagnosis: Interstitial pulmonary disease, unspecified[ICD10: J84.9] Diagnosis: Chronic kidney disease, stage 3 (moderate)[ICD10: N18.3] Diagnosis: Mixed hyperlipidemia[ICD10: E78.2] Britney Maya MD, [facility] CPT-4: 46486 05/04/2018 26839 EST. PATIENT, LEVEL IV Diagnosis: Essential (primary) hypertension[ICD10: I10] Diagnosis: Interstitial pulmonary disease, unspecified[ICD10: J84.9] Diagnosis: Chronic kidney disease, stage 3 (moderate)[ICD10: N18.3] Diagnosis: Mixed hyperlipidemia[ICD10: E78.2] Britney Maya MD, [facility] CPT-4: 50713 01/10/2018 55787 EST. PATIENT, LEVEL IV Diagnosis: Other specified hypothyroidism[ICD10: E03.8] Diagnosis: Essential (primary) hypertension[ICD10: I10] Britney Maya MD, [facility] CPT-4: 20259 12/06/2017 87359 EST. PATIENT, LEVEL IV Diagnosis: Other malaise[ICD10: R53.81] Diagnosis: Other fatigue[ICD10: R53.83] Britney Maya MD, [facility] CPT-4 : 29117 06/22/2017 00013 EST. PATIENT, LEVEL IV Diagnosis: Acute laryngopharyngitis[ICD10: J06.0] Diagnosis: Other acute sinusitis[ICD10: J01.80] Diagnosis: Other allergic rhinitis[ICD10: J30.89] Britney Maya MD, [facility] CPT-4: 57907 03/02/2017 01096 EST. PATIENT, LEVEL IV Diagnosis: Generalized hyperhidrosis[ICD10: R61] Diagnosis: Other acute sinusitis[ICD10: J01.80] Diagnosis: Other fatigue[ICD10: R53.83] Diagnosis: Interstitial pulmonary disease, unspecified[ICD10: J84.9] Britney Maya MD, [facility] CPT-4: 81762 01/24/2017 56199 EST. PATIENT, LEVEL IV Diagnosis: Acute laryngopharyngitis[ICD10: J06.0] Diagnosis: Other acute sinusitis[ICD10: J01.80] Britney Maya MD, [facility] CPT-4: 97730 10/13/2016 ([id number]) 76062 EST. PATIENT, LEVEL IV Diagnosis: Essential (primary) hypertension[ICD10: I10] Diagnosis: Drug-induced polyneuropathy[ICD10: G62.0] Diagnosis: Impaired fasting glucose[ICD10: R73.01] Catie Maya MD, [facility] CPT-4: 88752 08/30/2016 02364 EST. PATIENT, LEVEL IV Diagnosis: Pain in thoracic spine[ICD10: M54.6] Diagnosis: Pain in left shoulder[ICD10: M25.512] Diagnosis: Zoster without complications[ICD10: B02.9] Britney Maya MD, [facility] CPT-4: 63294 07/02/2016 15535 EST. PATIENT, LEVEL III Diagnosis: Other specified hypothyroidism[ICD10: E03.8] Diagnosis: Menopausal and female climacteric states[ICD10: N95.1] Diagnosis: Essential (primary) hypertension[ICD10: I10] Britney Maya MD, [facility] CPT-4: 20730 06/24/2016 ([id number]) 41869 EST. PATIENT, LEVEL IV Diagnosis: Essential (primary) hypertension[ICD10: I10] Diagnosis: Atrophy of thyroid (acquired)[ICD10: E03.4] Diagnosis: Pain in left foot[ICD10: M79.672] Meghana Maya MD, [facility] CPT-4: 61491 05/04/2016 ([id number]) 99048 EST. PATIENT, LEVEL IV Diagnosis: Essential (primary) hypertension[ICD10: I10] Diagnosis: Pain in left leg[ICD10: M79.605] Diagnosis: Pain in left foot[ICD10: M79.672] Diagnosis: Atrophy of thyroid (acquired)[ICD10: E03.4] Meghana Maya MD, [facility] CPT-4: 55707 04/06/2016 ([id number]) 96762 EST. PATIENT, LEVEL III Diagnosis: Essential (primary) hypertension[ICD10: I10] Diagnosis: Localized edema[ICD10: R60.0] Catie Maya MD, [facility] CPT-4: 91957 03/18/2016 ([id number]) 59570 EST. PATIENT, LEVEL III Diagnosis: Essential (primary) hypertension[ICD10: I10] Diagnosis: Pain in left foot[ICD10: M79.672] Catie Maya MD, [facility] CPT-4: 20338 03/11/2016 ([id number]) 78834 EST. PATIENT, LEVEL III Diagnosis: Localized edema[ICD10: R60.0] Diagnosis: Essential (primary) hypertension[ICD10: I10] Catie Maya MD, [facility] CPT-4: 83863 02/24/2016 ([id number]) 85047 EST. PATIENT, LEVEL IV Diagnosis: Hypothyroidism, unspecified[ICD10: E03.9] Diagnosis: Essential (primary) hypertension[ICD10: I10] Meghana Maya MD, [facility] CPT-4: 73118 12/16/2015 ([id number]) 62883 EST. PATIENT, LEVEL III Diagnosis: Essential (primary) hypertension[ICD10: I10] Diagnosis: Hypothyroidism, unspecified[ICD10: E03.9] Meghana Maya MD, [facility] CPT-4: 15123 10/30/2015 ([id number]) 92108 EST. PATIENT, LEVEL IV Diagnosis: Diarrhea, unspecified[ICD10: R19.7] Diagnosis: Essential (primary) hypertension[ICD10: I10] Meghana Maya MD, [facility] CPT-4: 10318 09/23/2015 ([id number]) 04320 EST. PATIENT, LEVEL III Diagnosis: Essential (primary) hypertension[ICD10: I10] Diagnosis: Diarrhea, unspecified[ICD10: R19.7] Meghana Maya MD, [facility] CPT-4: 86341 09/10/2015 ([id number]) 82720 EST. PATIENT, LEVEL III Diagnosis: Acute maxillary sinusitis, unspecified[ICD10: J01.00] Diagnosis: Myositis, unspecified[ICD10: M60.9] Meghana Maya MD, [facility] CPT-4: 24026 08/12/2015 ([id number]) 41766 EST. PATIENT, LEVEL IV Diagnosis: Essential (primary) hypertension[ICD10: I10] Diagnosis: Pain in left leg[ICD10: M79.605] Diagnosis: Other myositis, multiple sites[ICD10: M60.89] Diagnosis: Hypothyroidism, unspecified[ICD10: E03.9] Meghana Maya MD, [facility] CPT-4: 63466 08/04/2015 95358 EST. PATIENT, LEVEL III Diagnosis: Dyspnea, unspecified[ICD10: R06.00] Diagnosis: Essential (primary) hypertension[ICD10: I10] Meghana Maya MD, [facility] CPT-4: 32422 05/16/2015 ([id number]) 40045 EST. PATIENT, LEVEL II Diagnosis: Dyspnea, unspecified[ICD10: R06.00] [facility] CPT-4: 17357 05/12/2015 ([id number]) OFFICE VISIT, NEW - LEVEL 4 Diagnosis: Essential (primary) hypertension[ICD10: I10] Diagnosis: Impaired fasting glucose[ICD10: R73.01] Diagnosis: Mixed hyperlipidemia[ICD10: E78.2] Diagnosis: Hypothyroidism, unspecified[ICD10: E03.9] Diagnosis: Encounter for screening mammogram for malignant neoplasm of breast[ ICD10: Z12.31] [facility] CPT-4: 69013 04/21/2015 Plan of Care Planned Activity Notes Codes Status Date Appointment: Britney Bower WPtel: [address] [place], [place] [phone] (30 min) Complex 09/13/2018 Visit Plan: Hypertension [...] plan 05/04/2018 Appointment: [phone] (15 min) Moderate 05/04/2018 Patient Education: Patient [...] the current treatment plan 01/10/2018 Appointment: [facility] Bow[facility]el: [phone] (30 min) Complex 01/10/2018 Patient Education: Patient [...] of control. 12/06/2017 Appointment: Britney Bower WPtel: [facility] (15 min) Moderate 12/06/2017 Patient Education: Patient Medication Summary Completed 12/06/2017 Visit Plan: URI - Pt advised to increase fluids, vitamin C. Discussed natural and expected course of this diagnosis and need to alert me if symptoms do not follow expected course, or if any worse. RX sent to patient' s pharmacy. 06/22/2017 Appointment: Britney Bower WPtel: [phone] [phone] (15 min) Moderate 06/22/2017 Patient Education: Patient [...] allergy spray. 03/02/2017 Appointment: Britney Bower WPtel: [facility] (10 min) Simple 03/02/2017 Patient Education: Patient Medication Summary Completed 03/02/2017 Patient Education: Obesity Completed 03/02/2017 Visit Plan: Sinusitis - Pt has acute infection - pain in face, maxillary region, Pt informed to use decongestant, RX given to patient, sinus rinses also recommended. Call if symptoms do not show improvement. 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 Maya - will increase clonidine to BID - pt is to consider referral to dermatology - notify clinic if symptoms do not improve, if they worsen, or with any other questions or concerns. 01/24/2017 Appointment: Britney Bower WPtel: [address] [place], [place] [phone] (30 min) Complex 01/24/2017 Patient Education: Patient [...] show improvement. 10/13/2016 Appointment: Britney Bower WPtel: [address] [place], [place] [phone] (30 min) Complex 10/13/2016 Patient Education: Patient Medication Summary Completed 10/13/2016 Patient Education: Obesity Completed 10/13/2016 Visit Plan: Hypertension - well controlled - continue with current medications, continue with no added salt diet. Pt has been encouraged to exercise daily. The pt has been advised to call the office if there are any acute concerns about change in blood pressure readings at home. Sweats/jail use of steroids-check Hgb A1C Peripheral neuropathy-improved with B12- seeing Dr Duran for tarsel tunnel syndrome 08/30/2016 Appointment: Catie Shoemaker [facility]el[phone] (15 min) Moderate 08/30/2016 Patient Education: Patient Medication Summary Completed 08/30/2016 Patient Education: Obesity Completed 08/30/2016 Care Plan: %Hba1C [facility] : 33211-6 Ordered 08/30/2016 Care Plan: Comp Metabolic Ordered [...] contagious. 07/02/2016 Appointment: Brit[facility] Bower WPtel: [phone] (30 min) Complex 07/02/2016 Patient Education: Patient [...] levels of control. 06/24/2016 Appointment: Britney Bower WPtel:[phone] [place] (30 min) Complex 06/24/2016 Patient Education: Patient Medication Summary Completed 06/24/2016 Patient Education: Obesity Completed 06/24/2016 Patient Education: Hypertension Completed 06/24/2016 Patient Education: Patient Medication Summary Completed 05/14/2016 Care Plan: [employer] : 79785-5 Pending 05/14/2016 Visit Plan: Hypertension - well [...] painful. 05/04/2016 Appointment: [phone] [place] (15 min) Moderate 05/04/2016 Patient Education: Patient [...] current medication. 04/06/2016 Appointment: [phone] [place] (15 min) Moderate 04/06/2016 Patient Education: Patient Medication Summary Completed 04/06/2016 Patient Education: Obesity Completed 04/06/2016 Care Plan: Referral Order SNOMED-CT : [id number] Pending 04/06/2016 Visit Plan: Edema-improved with lower [...] acute concerns. 03/18/2016 Appointment: Catie Shoemaker WPtel: [phone] (15 min) Moderate 03/18/2016 Patient Education: Patient [...] xray left foot-recommend she follow up with radio journalist at regarding left foot pain/numbness/weakness. Patient has noticed worsening symptoms since decreasing prednisone. 03/11/2016 Appointment: Catie Shoemaker WPtel: [address] [place], [place] [phone] (15 min) Moderate 03/11/2016 Patient Education: Patient Medication Summary Completed 03/11/2016 Patient Education: Obesity Completed 03/11/2016 Appointment: Catie Shoemaker WPtel: [phone] (30 min) Complex 03/09/2016 Visit Plan: Edema [...] 25mg daily 02/24/2016 Appointment: Catie Shoemaker WPtel: [phone] [phone] [place] (15 min) Moderate 02/24/2016 Patient Education: Patient Medication Summary Completed 02/24/2016 Patient Education: Obesity Completed 02/24/2016 Patient Education: Hypertension Completed 02/24/2016 Appointment: Meghana Maya WPtel: [phone] [facility] [place] (15 min) Moderate 02/23/2016 Visit [...] of control. 12/16/2015 Appointment: Meghana Maya WPtel: [phone] [facility] (15 min) Moderate 12/16/2015 Patient Education: Patient Medication Summary Completed 12/16/2015 Patient Education: Obesity Completed 12/16/2015 Visit Plan: Hypertension - well controlled - [...] Complex 10/23/2015 Appointment: [facility]el[phone] (15 min) Moderate 10/23/2015 Visit Plan: Hypertension [...] at home. 09/10/2015 Appointment: [facility]Ptel[phone] [facility] (15 min) Moderate 09/10/2015 Patient Education: Patient [...] Complex 07/24/2015 Appointment: [facility]hana [facility]Ptel[phone] (15 min) Moderate 07/24/2015 Appointment: Lab Draw [...] Completed 04/21/2015 Care Plan: [employer] : 15039-7 Ordered 04/21/2015 Appointment: Meghana Maya WPtel: [address] [place], [place] [address] [place] (S) New Patient 04/01/2015 Referral: Sharon Duran Referral Appointment Requested Instructions Comment DR. CROUCH IS THE SCRAP DEALER WHO SPECIALIZES IN FOOT AND ANKLE DISEASE AT [address] INCREASE THE METOPROLOL TO 1.5 PILLS [...] continue with current medication. . Hypertension - well controlled - continue [...] if symptoms do not show improvement. . Shortness of breath, fatigue - VQ [...] to cardiology and for pulmonary function testing. DECREASE AMLODIPINE TO 1/2 TAB DAILY START [...] tab daily. Add beta anuj-metoprolol 25mg daily PATIENT IS TO CHECK BLOOD PRESSURE AND HEART RATE TWO TIMES DAILY AND BRING IN A RECORD OF THE READINGS INTO THE OFFICE IN TWO WEEKS. APPOINTMENT WITH RHEUMATOLGIST AT [facility] LEFT FOOT . Hypertension - well controlled [...] xray left foot-recommend she follow up with radio journalist at regarding left foot pain/numbness/weakness. Patient has noticed worsening symptoms since decreasing prednisone. . Hypertension - uncontrolled - the patient's [...] the current treatment plan . Hypertension - well controlled - continue [...] the pt is to be considered contagious. . 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 Hypertension - The patient has been [...] to medications. Elevated blood sugar-check Hgb A1C . Hypothyroidism - pt with chronic hypothyroidism, [...] based on previous levels of control. . Sinusitis - Pt has acute infection - pain in face, maxillary region, Pt informed to use decongestant, RX given to patient, sinus rinses also recommended. Call if symptoms do not show improvement. 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 . URI - Pt advised to increase [...] spray in the nasal steroid allergy spray. HgbA1C today- daily prednisone for the past 2 years . Hypertension - well controlled - continue with current medications, continue with no added salt diet. Pt has been encouraged to exercise daily. The pt has been advised to call the office if there are any acute concerns about change in blood pressure readings at home. 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 probiotic - callie [employer], probiotic pearls, etc - take three times [...]
--- OUTSIDE RECORDS SUMMARY | 2018-09-30 13:39 | XMS REPORT | CCD ---
Author Author Catie Shoemaker MD, [facility] Address [address] [place] [address] Phone Care Team Providers Care Tire Setter Name Role Phone PP Unavailable CCM Unavailable Summary Purpose Interface Exchange Insurance Providers Payer name Policy type / Coverage type Covered republican ID Effective Begin Date Effective End Date [facility] Commercial Insurance [id number] Unknown Family history Mother Diagnosis Age At Onset Hypertension Unknown Breast cancer Unknown Osteoporosis Unknown Father Diagnosis Age At Onset kidney disease Unknown Cancer Unknown Hyperlipidemia Unknown Social History Social History Element Codes Description Effective Dates Marital status Unknown 04/21/2015 Number of children Unknown 1 04/21/2015 Employment Unknown 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 04/21/[address]: [id number] Never smoker 04/21/2015 Alcohol history Unknown occasionally drinks alcohol 04/21/2015 Allergies, Adverse Reactions, Alerts Substance Reaction Codes Entered Date Inactivated Date Status [id number] REDUCTASE INHIBITORS myalgias Unknown 2015 No Inactive [...] Start Date Stop Date Status Fill Instructions Lipitor 20 mg tablet RxNorm: 569518 TAKE ONE TABLET BY MOUTH DAILY 05/15/2018 11/10/2018 Active losartan 25 mg tablet RxNorm: 932991 TAKE ONE TABLET BY MOUTH DAILY 04/17/2018 07/15/2018 Active losartan 25 mg tablet RxNorm: 280802 TAKE ONE TABLET BY MOUTH DAILY 04/17/2018 04/16/2018 Inactive Lipitor 20 mg tablet RxNorm: 882577 1 Tablet(s) PO daily 201701/11/2018 Inactive Lipitor 20 mg tablet RxNorm: 520810 1 Tablet(s) PO daily 201705/11/2018 Inactive clonidine HCl 0.1 mg tablet RxNorm: 252672 TAKE ONE TABLET BY MOUTH TWICE A DAY 01/04/2018 07/02/2018 Active potassium chloride ER 10 mEq tablet,extended release RxNorm: 884429 TAKE ONE TABLET BY MOUTH DAILY 01/04/20182018 Active losartan 25 mg tablet RxNorm: 066034 TAKE ONE TABLET BY MOUTH DAILY 01/03/2018 04/02/2018 Inactive levothyroxine 50 mcg tablet RxNorm: 414027 1 Tablet(s) PO daily 12/08/2017 12/02/2018 Active venlafaxine ER 150 mg capsule,extended release 24 hr RxNorm: 726958 TAKE ONE CAPSULE BY MOUTH DAILY 12/06/20172017 Inactive losartan 25 mg tablet RxNorm: 566775 1 Tablet(s) PO daily 201701/02/2018 Inactive metoprolol succinate ER 50 mg tablet,extended release 24 hr RxNorm: 681323 TAKE ONE TABLET BY MOUTH DAILY 08/29/201701/25 Inactive metoprolol succinate ER 50 mg tablet,extended release 24 hr RxNorm: 774465 TAKE ONE TABLET BY MOUTH DAILY 08/29/201708/28 Inactive metoprolol succinate ER 50 mg tablet,extended release 24 hr RxNorm: 098610 TAKE ONE TABLET BY MOUTH DAILY 08/29/201708/28 Inactive Tamiflu 75 mg capsule RxNorm: 349794 1 Capsule(s) PO BID 201606/26/2017 Inactive Kenalog 40 mg/mL suspension for injection RxNorm: 4178395 1.5 Milliliter(s) Inj 06/22/2017 06/22/2017 Inactive clonidine HCl 0.1 mg tablet RxNorm: 380590 TAKE ONE TABLET BY MOUTH TWICE A DAY 06/06/2017 12/02/2017 Inactive potassium chloride ER 10 mEq tablet,extended release RxNorm: 852924 TAKE ONE TABLET BY MOUTH DAILY 06/06/20172017 Inactive venlafaxine ER 150 mg capsule,extended release 24 hr RxNorm: 787062 TAKE ONE CAPSULE BY MOUTH DAILY 05/23/20172017 Inactive Zithromax 500 mg tablet RxNorm: 879735 1 Tablet(s) PO daily 05/22/2017 Inactive potassium chloride ER 10 mEq tablet,extended release RxNorm: 265713 TAKE ONE TABLET BY MOUTH DAILY 04/21/20172016 Inactive potassium chloride ER 10 mEq tablet,extended release RxNorm: 258631 TAKE ONE TABLET BY MOUTH DAILY 03/16/20172016 Inactive Zithromax Z-Jacek 250 mg tablet RxNorm: 126437 1 Tablet(s) PO UD 03/02/2017 06/21/2017 Inactive venlafaxine ER 150 mg capsule,extended release 24 hr RxNorm: 987208 TAKE ONE CAPSULE BY MOUTH DAILY 02/17/20172017 Inactive venlafaxine ER 150 mg capsule,extended release 24 hr RxNorm: 517532 Capsule(s) TAKE ONE CAPSULE BY MOUTH DAILY 02/17/2017 02/16/2017 Inactive clonidine HCl 0.1 mg tablet RxNorm: 922423 TAKE ONE TABLET BY MOUTH EVERY NIGHT AT BEDTIME 02/14/2017 01/03/2018 Inactive metoprolol succinate ER 50 mg tablet,extended release 24 hr RxNorm: 511103 TAKE ONE TABLET BY MOUTH DAILY 02/14/201708/12 Inactive Protonix 40 mg tablet,delayed release RxNorm: 842493 TAKE ONE TABLET BY MOUTH DAILY WHILE ON PREDNISONE 01/25/201706/23 Inactive Zithromax Z-Jacek 250 mg tablet RxNorm: 332340 1 Tablet(s) PO UD 01/24/2017 01/03/2018 Inactive potassium chloride ER 10 mEq tablet,extended release RxNorm: 246217 TAKE ONE TABLET BY MOUTH DAILY 01/17/20172016 Inactive clonidine HCl 0.1 mg tablet RxNorm: 802321 TAKE ONE TABLET BY MOUTH EVERY NIGHT AT BEDTIME 01/17/2017 02/13/2017 Inactive potassium chloride ER 10 mEq tablet,extended release RxNorm: 259977 TAKE ONE TABLET BY MOUTH DAILY 12/16/20162016 Inactive venlafaxine ER 150 mg capsule,extended release 24 hr RxNorm: 269542 TAKE ONE CAPSULE BY MOUTH DAILY 11/18/20162016 Inactive clonidine HCl 0.1 mg tablet RxNorm: 176235 TAKE ONE TABLET BY MOUTH EVERY NIGHT AT BEDTIME 11/08/2016 01/06/2017 Inactive clonidine HCl 0.1 mg tablet RxNorm: 557227 1 Tablet(s) BID 01/16/2017 Inactive potassium chloride ER 10 mEq tablet,extended release RxNorm: 267965 TAKE ONE TABLET BY MOUTH DAILY 10/15/20162016 Inactive Zithromax Z-Jacek 250 mg tablet RxNorm: 301107 1 Tablet(s) PO UD 10/13/2016 01/03/2018 Inactive potassium chloride ER 10 mEq tablet,extended release RxNorm: 564066 TAKE ONE TABLET BY MOUTH DAILY 10/12/20162016 Inactive potassium chloride ER 10 mEq tablet,extended release RxNorm: 187406 Tablet(s) BID TAKE ONE TABLET BY MOUTH TWICE DAILY 09/17/2016 10/11/2016 Inactive potassium chloride ER 10 mEq tablet,extended release RxNorm: 186946 TAKE ONE TABLET BY MOUTH DAILY 09/13/20162016 Inactive clonidine HCl 0.1 mg tablet RxNorm: 409980 Tablet(s) TAKE ONE TABLET BY MOUTH EVERY NIGHT AT BEDTIME 08/12/20162016 Inactive gabapentin 300 mg capsule RxNorm: 351737 1 Capsule(s) PO Q No Stop Date Active venlafaxine ER 150 mg capsule,extended release 24 hr RxNorm: 286260 TAKE ONE CAPSULE BY MOUTH DAILY 08/09/20162016 Inactive metoprolol succinate ER 50 mg tablet,extended release 24 hr RxNorm: 154683 TAKE ONE TABLET BY MOUTH DAILY 07/29/201601/24 Inactive clonidine HCl 0.1 mg tablet RxNorm: 040595 TAKE ONE TABLET BY MOUTH EVERY NIGHT AT BEDTIME 07/21/2016 08/11/2016 Inactive potassium chloride ER 10 mEq tablet,extended release RxNorm: 025740 TAKE ONE TABLET BY MOUTH DAILY 07/14/20162016 Inactive Prescriber not associated with this practice or location capsaicin 0.1 % topical cream RxNorm: 953350 1 Application TOP TID as needed 07/02/2016 No Stop Date Active acyclovir 400 mg tablet RxNorm: 765406 2 Tablet(s) PO QID 07/0207/11/2016 Inactive cyclobenzaprine 5 mg tablet RxNorm: 169360 1-2 Tablet(s) PO TID as needed 07/02/2016 07/06/2016 Inactive Protonix 40 mg tablet,delayed release RxNorm: 773560 TAKE ONE TABLET BY MOUTH DAILY WHILE ON PREDNISONE 06/29/201612/25 Inactive clonidine HCl 0.1 mg tablet RxNorm: 402622 1 Tablet(s) PO QHS 06/25/2016 07/20/2016 Inactive calcium carbonate 500 mg calcium (1,250 mg) tablet RxNorm: 953538 TAKE ONE TABLET BY MOUTH DAILY WHILE ON PREDNISONE. MAY STOP TAKING WHEN PREDNISONE IS COMPLETE 06/01/2016 09/28/2016 Inactive Vitamin D3 1,000 unit tablet RxNorm: 817203 1 Tablet(s) PO daily . May stop taking once prednisone is complete. 04/26/2016 10/22/2016 Inactive metoprolol succinate ER 50 mg tablet,extended release 24 hr RxNorm: 007622 1.5 Tablet(s) PO daily 04/06/2016 06/23/2016 Inactive prednisone 10 mg tablet RxNorm: 667888 1 Tablet(s) PO daily 12/201506/21/2017 Inactive metoprolol succinate ER 50 mg tablet,extended release 24 hr RxNorm: 476985 1 Tablet(s) PO daily 03/18/2016 04/05/2016 Inactive amlodipine 10 mg tablet RxNorm: 857685 1/2 Tablet(s) PO daily 02/24/2016 06/21/2016 Inactive metoprolol succinate ER 25 mg tablet,extended release 24 hr RxNorm: 154077 1 Tablet(s) PO daily 02/24/2016 03/16/2016 Inactive calcium carbonate 500 mg calcium (1,250 mg) tablet RxNorm: 021164 TAKE ONE TABLET BY MOUTH DAILY WHILE ON PREDNISONE. MAY STOP TAKING WHEN PREDNISONE IS COMPLETE 02/16/2016 05/15/2016 Inactive Protonix 40 mg tablet,delayed release RxNorm: 130632 TAKE ONE TABLET BY MOUTH DAILY WHILE ON PREDNISONE 02/10/201605/09 Inactive venlafaxine ER 150 mg capsule,extended release 24 hr RxNorm: 700329 Capsule(s) TAKE ONE CAPSULE BY MOUTH DAILY 12/10/2015 04/07/2016 Inactive calcium carbonate 500 mg calcium (1,250 mg) tablet RxNorm: 141373 1 Tablet(s) PO daily 12/01/2015 01/29/2016 Inactive Vitamin D3 1,000 unit tablet RxNorm: 424479 1 Tablet(s) PO daily 12/01/2015 03/29/2016 Inactive levothyroxine 50 mcg tablet RxNorm: 008889 1 Tablet(s) PO daily 12/01/2015 11/24/2016 Inactive amlodipine 10 mg tablet RxNorm: 863151 1 Tablet(s) PO daily 11/18/2015 Inactive amlodipine 10 mg tablet RxNorm: 188662 1 Tablet(s) PO daily 02/23/2016 Inactive amlodipine 5 mg tablet RxNorm: 967731 1 Tablet(s) PO daily 11/18/2015 Inactive venlafaxine ER 150 mg capsule,extended release 24 hr RxNorm: 596224 TAKE ONE CAPSULE BY MOUTH DAILY 11/13/20152015 Inactive Protonix 40 mg tablet,delayed release RxNorm: 875848 1 Tablet(s) PO daily while on prednisone 2015 02/09/2016 Inactive prednisone 10 mg tablet RxNorm: 490820 2 Tablet(s) PO UD 201504/01/2016 Inactive 60mg for 2 days, then 50mg for 2 days, then 40mg for 2 days, then 30mg for 2 days, then 20mg for 2 days, then 10mg for 2 days, then 5mg for 2 days potassium chloride ER 10 mEq tablet,extended release RxNorm: 642811 TAKE ONE TABLET BY MOUTH DAILY 09/22/20152015 Inactive venlafaxine ER 150 mg capsule,extended release 24 hr RxNorm: 765207 TAKE ONE CAPSULE BY MOUTH DAILY 09/08/20152015 Inactive cefdinir 300 mg capsule RxNorm: 051434 1 Capsule(s) PO BID 08/22/2015 Inactive cefdinir 300 mg capsule RxNorm: 081747 1 Capsule(s) PO BID 08/18/2015 Inactive Kenalog 40 mg/mL suspension for injection RxNorm: 4190944 1 Milliliter(s) Inj 08/04/2015 08/04/2015 Inactive triamterene 37.5 mg-hydrochlorothiazide 25 mg tablet RxNorm: 217946 1 Tablet(s) PO BID 06/17/2015 08/03/2015 Inactive potassium chloride ER 10 mEq tablet,extended release RxNorm: 281105 1 Tablet(s) PO daily 05/30/2015 08/03/2015 Inactive Levaquin 250 mg tablet RxNorm: 375538 Tablet(s) PO UD 500 mg day one, then 250 mg day 2-7 05/27/2015 08/03/2015 Inactive prednisone 10 mg tablet RxNorm: 189638 Tablet(s) PO UD 201410/29/2015 Inactive 60mg for 2 days, then 50mg for 2 days, then 40mg for 2 days, then 30mg for 2 days, then 20mg for 2 days, then 10mg for 2 days, then 5mg for 2 days albuterol sulfate 1.25 mg/3 mL solution for nebulization RxNorm: 699946 3 Milliliter(s) INH Q4-6H as needed dyspnea 05/23/2015 No Stop Date Active Zithromax 500 mg tablet RxNorm: 354027 1 Tablet(s) PO daily 05/15/2015 Inactive Zithromax 500 mg tablet RxNorm: 379140 1 Tablet(s) PO daily 05/20/2015 Inactive prednisone 20 mg tablet RxNorm: 500474 3 Tablet(s) PO daily 05/16/2015 Inactive venlafaxine ER 150 mg capsule,extended release 24 hr RxNorm: 381259 TAKE ONE CAPSULE BY MOUTH DAILY 05/12/20152015 Inactive Keflex 500 mg capsule RxNorm: 314479 1 Capsule(s) PO TID 201405/18/2015 Inactive simvastatin 20 mg tablet RxNorm: 697552 1 Tablet(s) PO daily 04/09/2015 Inactive simvastatin 20 mg tablet RxNorm: 699619 1 Tablet(s) PO daily 08/11/2015 Inactive venlafaxine ER 150 mg capsule,extended release 24 hr RxNorm: 442539 TAKE ONE CAPSULE BY MOUTH DAILY 04/08/20152014 Inactive amlodipine 5 mg tablet RxNorm: 486599 1 Tablet(s) PO daily 04/201503/06/2015 Inactive amlodipine 5 mg tablet RxNorm: 249839 1 Tablet(s) PO daily 04/201507/04/2015 Inactive venlafaxine ER 150 mg capsule,extended release 24 hr RxNorm: 904376 1 Capsule(s) PO daily 01/29/2015 03/29/2015 Inactive metoprolol succinate ER 50 mg tablet,extended release 24 hr RxNorm: 341008 1 Tablet(s) PO daily No Start Date Active vitamin B complex oral RxNorm: 39421 oral No Start Date Active Co Q-10 oral RxNorm: 06120 oral No Start Date Active albuterol sulfate 1.25 mg/3 mL solution for nebulization RxNorm: 658862 3 Milliliter(s) INH Q4-6H as needed dyspnea No Start Date 05/22/2015 Inactive levothyroxine 50 mcg tablet RxNorm: 284118 1 Tablet(s) PO daily No Start Date 11/30/2015 Inactive gabapentin 300 mg capsule RxNorm: 831315 1 Capsule(s) PO QHS No Start Date 08/09/2016 Inactive Vitamin D3 1,000 unit tablet RxNorm: 993110 1 Tablet(s) PO daily No Start Date 11/30/2015 Inactive Protonix 40 mg tablet,delayed release RxNorm: 308019 1 Tablet(s) PO daily while on prednisone No Start Date 10/30/2015 Inactive calcium carbonate oral RxNorm: oral No Start Date 11/30/2015 Inactive potassium chloride ER 10 mEq tablet,extended release RxNorm: 475804 1 Tablet(s) PO daily No Start Date 05/29/2015 Inactive Levaquin 250 mg tablet RxNorm: 810392 Tablet(s) PO UD 500 mg day one, then 250 mg day 2-7 No Start Date 05/26/2015 Inactive triamterene 37.5 mg-hydrochlorothiazide 25 mg tablet RxNorm: 474733 1 Tablet(s) PO BID No Start Date 06/16/2015 Inactive prednisone 10 mg tablet RxNorm: 917947 Tablet(s) PO UD No Start Date 05/26/2015 Inactive 60mg for 2 days, then 50mg for 2 days, then 40mg for 2 days, then 30mg for 2 days, then 20mg for 2 days, then 10mg for 2 days, then 5mg for 2 days venlafaxine ER 150 mg capsule,extended release 24 hr RxNorm: 837935 1 Capsule(s) PO daily No Start Date 01/28/2015 Inactive Medication Administered Medication Codes Instructions Start Date Status Kenalog 40 mg/mL suspension for injection RxNorm: 5272051 1.5Milliliter 06/22/2017 No longer Active Kenalog 40 mg/mL suspension for injection RxNorm: 3660510 1Milliliter 08/04/2015 No longer Active Immunizations No [...] Observation Code Item Item Code Result Date C-Reactive Protein Qnt Crqnt CRP 0.5 mg/dl 01/10/2018 Cbc With Differential Ord2 WBC 6.50 K/ul 01/10/2018 Cbc With Differential Ord2 RBC 4.96 M/ul 01/10/2018 Cbc With Differential Ord2 HGB 13.7 g/dl 01/10/2018 Cbc With Differential Ord2 HCT 43.0 % 01/10/2018 Cbc With Differential Ord2 Neut% 61.1 % 01/10/2018 Cbc With Differential Ord2 Lymph% 22.6 % 01/10/2018 Cbc With Differential Ord2 MCV 86.7 fl 01/10/2018 Cbc With Differential Ord2 MCH 27.6 pg 01/10/2018 Cbc With Differential Ord2 [place]% 15.2 % 01/10/2018 Cbc With Differential Ord2 MCHC 31.9 pg 01/10/2018 Cbc With Differential Ord2 Eos% 0.8 % 01/10/2018 Cbc With Differential Ord2 PLT 333 K/ul 01/10/2018 Cbc With Differential Ord2 Baso% 0.3 % 01/10/2018 Cbc With Differential Ord2 Neut ABS# 3.97 K/ul 01/10/2018 Cbc With Differential Ord2 RDW 14.3 % 01/10/2018 Cbc With Differential Ord2 Lymph ABS# 1.47 K/ul 01/10/2018 Cbc With Differential Ord2 [place] ABS# 1.0 K/ul 01/10/2018 Cbc With Differential Ord2 Eos ABS# 0.1 K/ul 01/10/2018 Cbc With Differential Ord2 Baso ABS# 0.0 K/ul 01/10/2018 Lipid Ord30 CHOL 233 mg/dL 01/10/2018 Lipid Ord30 HDL 33.0 mg/dl 01/10/2018 Lipid Ord30 TRIG 319 mg/dL 01/10/2018 Lipid Ord30 LDL Unable to calculate Due to elevated triglycerides mg/dL 01/10/2018 Lipid Ord30 C/HDL 7.1 Ratio 01/10/2018 Comp Metabolic Vcg472 NA 140 mEq/L 01/10/2018 Comp Metabolic Okg641 K 3.8 mEq/L 01/10/2018 Comp Metabolic Pdd727 CL 106 mEq/L 01/10/2018 Comp Metabolic Qcs108 CO2 25.0 mEq/L 01/10/2018 Comp Metabolic Caf444 ANION GAP 13 01/10/2018 Comp Metabolic Hzi091 GLUCOSE 110 mg/dL 01/10/2018 Comp Metabolic Tsd906 Creat 1.5 mg/dL 01/10/2018 Comp Metabolic Oli946 eGFR 37 ml/min/1.73m2 01/10/2018 Comp Metabolic Tkp310 BUN 23 mg/dL 01/10/2018 Comp Metabolic Xvd154 B/C Ratio 15.3 Ratio 01/10/2018 Comp Metabolic Xat532 CALCIUM 9.2 mg/dL 01/10/2018 Comp Metabolic Mcp447 ALK PHOS 87 U/L 01/10/2018 Comp Metabolic Ofm477 AST(SGOT) 15 U/L 01/10/2018 Comp Metabolic Apc034 ALT(SGPT) 9 U/L 01/10/2018 Comp Metabolic Nuq229 BILI T 0.4 mg/dL 01/10/2018 Comp Metabolic Obo675 ALBUMIN 3.8 g/dL 01/10/2018 Comp Metabolic Lzw322 TPRO 6.2 g/dL 01/10/2018 Comp Metabolic Mev207 GLOB 2.4 g/dL 01/10/2018 Comp Metabolic Tyd744 A/G Ratio 1.6 Ratio 01/10/2018 Comp Metabolic Clc884 Osmo 284 mOsmo 01/10/2018 Sed Rate Ord21 ESR 12 mm/hr 01/10/2018 Tsh Ord6 TSH (3rd IS) 7.40 uIU/mL 12/06/2017 Free T4 Giw237 FREE T4 0.57 ng/dL 12/06/2017 C A/B FLU 8980754 Influenza A Scr Negative 06/22/2017 C A/B FLU 2017733 Influenza B Scr Negative 06/22/2017 C A/B FLU [id number] Influenza Intrp B AG: PRID:PT:NOSE:NOM:IF See Footnote 06/22/2017 Comp Metabolic Qiv633 NA 140 mEq/L 08/30/2016 Comp Metabolic Ixf437 K 3.3 mEq/L 08/30/2016 Comp Metabolic Ira939 CL 104 mEq/L 08/30/2016 Comp Metabolic Ypr472 CO2 26.0 mEq/L 08/30/2016 Comp Metabolic Qpy591 ANION GAP 13 08/30/2016 Comp Metabolic Yee638 GLUCOSE 143 mg/dL 08/30/2016 Comp Metabolic Quc847 Creat 1.3 mg/dL 08/30/2016 Comp Metabolic Nuu333 eGFR 43 ml/min/1.73m2 08/30/2016 Comp Metabolic Qds297 BUN 19 mg/dL 08/30/2016 Comp Metabolic Bdd651 B/C Ratio 14.3 Ratio 08/30/2016 Comp Metabolic Rio293 CALCIUM 10.0 mg/dL 08/30/2016 Comp Metabolic Dca116 ALK PHOS 67 U/L 08/30/2016 Comp Metabolic Mit226 AST(SGOT) 28 U/L 08/30/2016 Comp Metabolic Fcr874 ALT(SGPT) 43 U/L 08/30/2016 Comp Metabolic Utu470 BILI T 0.4 mg/dL 08/30/2016 Comp Metabolic Omb880 ALBUMIN 4.0 g/dL 08/30/2016 Comp Metabolic Jsg879 TPRO 6.2 g/dL 08/30/2016 Comp Metabolic Cgy652 GLOB 2.2 g/dL 08/30/2016 Comp Metabolic Bnt694 A/G Ratio 1.8 Ratio 08/30/2016 Comp Metabolic Pvy977 Osmo 284 mOsmo 08/30/2016 %Hba1C Vto457 % HbA1c 56243-2 6.1 % 08/30/2016 %Hba1C Cti305 Gluc Ave 128 mg/dL 08/30/2016 Free T4 Joq624 FREE T4 0.75 ng/dL 06/25/2016 Tsh Ord6 hTSH II 2.80 uIU/mL 06/25/2016 Free T4 Zrj243 FREE T4 0.92 ng/dL 12/16/2015 Metabolic Ord15 NA 142 mEq/L 12/16/2015 Metabolic [...] 12/16/2015 Magnesium Ord90 Mag 2.1 mg/dL 12/16/2015 Tsh Ord6 hTSH II 4.67 uIU/mL 12/16/2015 Sed Rate Ord21 ESR 12 mm/hr 08/05/2015 Cpk Ord61 CPK 52 U/L 08/04/2015 Comp Metabolic Rui661 NA 139 mEq/L 08/04/2015 Comp Metabolic Xuw224 K 3.4 mEq/L 08/04/2015 Comp Metabolic Xvj317 CL 109 mEq/L 08/04/2015 Comp Metabolic Rfc867 CO2 22.0 mEq/L 08/04/2015 Comp Metabolic Fyv678 ANION GAP 11 08/04/2015 Comp Metabolic Tvi556 GLUCOSE 177 mg/dL 08/04/2015 Comp Metabolic Xex394 Creat 1.0 mg/dL 08/04/2015 Comp Metabolic Pko986 eGFR 64 ml/min/1.73m2 08/04/2015 Comp Metabolic Avb110 BUN 35 mg/dL 08/04/2015 Comp Metabolic Ppf019 B/C Ratio 36.8 Ratio 08/04/2015 Comp Metabolic Aws178 CALCIUM 8.5 mg/dL 08/04/2015 Comp Metabolic Vpv953 ALK PHOS 57 U/L 08/04/2015 Comp Metabolic Ydf472 AST(SGOT) 21 U/L 08/04/2015 Comp Metabolic Rry669 ALT(SGPT) 63 U/L 08/04/2015 Comp Metabolic Zyg009 BILI T 0.3 mg/dL 08/04/2015 Comp Metabolic Isd843 ALBUMIN 3.1 g/dL 08/04/2015 Comp Metabolic Szy867 TPRO 5.1 g/dL 08/04/2015 Comp Metabolic Gob447 GLOB 2.0 g/dL 08/04/2015 Comp Metabolic Bhq134 A/G Ratio 1.6 Ratio 08/04/2015 Comp Metabolic Vwz265 Osmo 290 mOsmo 08/04/2015 C-Reactive Protein Qnt Crqnt CRP 0.8 mg/dl 08/04/2015 Cbc With Differential Ord2 WBC 8.40 K/ul 08/04/2015 Cbc With Differential Ord2 RBC 4.21 M/ul 08/04/2015 Cbc With Differential Ord2 HGB 12.0 g/dl 08/04/2015 Cbc With Differential Ord2 HCT 38.5 % 08/04/2015 Cbc With Differential Ord2 Neut% 84.3 % 08/04/2015 Cbc With Differential Ord2 Lymph% 8.7 % 08/04/2015 Cbc With Differential Ord2 MCV 91.4 fl 08/04/2015 Cbc With Differential Ord2 [place]% 6.1 % 08/04/2015 Cbc With Differential Ord2 MCH 28.5 pg 08/04/2015 Cbc With Differential Ord2 Eos% 0.8 % 08/04/2015 Cbc With Differential Ord2 MCHC 31.2 pg 08/04/2015 Cbc With Differential Ord2 Baso% 0.1 % 08/04/2015 Cbc With Differential Ord2 PLT 286 K/ul 08/04/2015 Cbc With Differential Ord2 RDW 18.7 % 08/04/2015 Cbc With Differential Ord2 Neut ABS# 7.08 K/ul 08/04/2015 Cbc With Differential Ord2 Lymph ABS# 0.73 K/ul 08/04/2015 Cbc With Differential Ord2 [place] ABS# 0.5 K/ul 08/04/2015 Cbc With Differential Ord2 Eos ABS# 0.1 K/ul 08/04/2015 Cbc With Differential Ord2 Baso ABS# 0.0 K/ul 08/04/2015 Cbc With Differential Ord2 New Analyzer Notice Please note new ref ranges starting 07-09-2015 due to implemntation of new five part differential hematolgy analyzer. 08/04/2015 Tsh Ord6 hTSH II 2.32 uIU/mL 08/04/2015 Random Urine Protein/Creatinine Ratio Ztk3483 U Prot 8.5 mg/dl 05/27/2015 Random Urine Protein/Creatinine Ratio Mcu3264 U CREAT 201.0 mg/dL 05/27/2015 Random Urine Protein/Creatinine Ratio Iki6822 R MTP/Creat Ratio 0.04 05/27/2015 Urinalysis Ord28 [...] hours from collection if refrigerated) 05/27/2015 Renal Cgu458 NA 136 mEq/L 05/26/2015 Renal Xyi982 K 3.3 mEq/L 05/26/2015 Renal Lab230 CL 99 mEq/L 05/26/2015 Renal Hyl639 CO2 25.0 mEq/L 05/26/2015 Renal Caz934 ANION GAP 15 05/26/2015 Renal Inn564 Osmo 274 mOsmo 05/26/2015 Renal Xjj091 GLUCOSE 106 mg/dL 05/26/2015 Renal Dzr946 BUN 17 mg/dL 05/26/2015 Renal Uqt612 Creat 1.4 mg/dL 05/26/2015 Renal Nsi864 eGFR 40 ml/min/1.73m2 05/26/2015 Renal Egh792 B/C Ratio 12.0 Ratio 05/26/2015 Renal Ewj184 CALCIUM 9.3 mg/dL 05/26/2015 Renal Xea055 PHOS 3.4 mg/dL 05/26/2015 Renal Tlj415 ALBUMIN 3.4 g/dL 05/26/2015 Cbc With Differential [...] With Differential Ord2 RDW 14.5 % 05/26/2015 Free T4 Wvb584 FREE T4 0.91 ng/dL 04/21/2015 Tsh Ord6 hTSH II 2.58 uIU/mL 04/21/2015 Cbc With Differential Ord2 WBC 9.8 K/uL [...] With Differential Ord2 RDW 14.3 % 04/21/2015 %Hba1C Mfp094 % HbA1c 30608-7 5.8 % 04/21/2015 %Hba1C Ckd143 Gluc Ave 120 mg/dL 04/21/2015 Comp Metabolic Yak524 NA 137 mEq/L 04/21/2015 Comp Metabolic Muc367 K 3.6 mEq/L 04/21/2015 Comp Metabolic Szk083 CL 98 mEq/L 04/21/2015 Comp Metabolic Sza283 CO2 25.0 mEq/L 04/21/2015 Comp Metabolic Zka290 ANION GAP 18 04/21/2015 Comp Metabolic Vtn714 GLUCOSE 83 mg/dL 04/21/2015 Comp Metabolic Dnj448 Creat 1.6 mg/dL 04/21/2015 Comp Metabolic Zyj801 eGFR 36 ml/min/1.73m2 04/21/2015 Comp Metabolic Pbl148 BUN 28 mg/dL 04/21/2015 Comp Metabolic Zdh447 B/C Ratio 17.9 Ratio 04/21/2015 Comp Metabolic Dna254 CALCIUM 9.5 mg/dL 04/21/2015 Comp Metabolic Bml984 ALK PHOS 60 U/L 04/21/2015 Comp Metabolic Cwi997 AST(SGOT) 22 U/L 04/21/2015 Comp Metabolic Vji965 ALT(SGPT) 10 U/L 04/21/2015 Comp Metabolic Bba990 BILI T 0.4 mg/dL 04/21/2015 Comp Metabolic Rsj969 ALBUMIN 4.0 g/dL 04/21/2015 Comp Metabolic Fbv130 TPRO 6.8 g/dL 04/21/2015 Comp Metabolic Xrn595 GLOB 2.8 g/dL 04/21/2015 Comp Metabolic Yvu920 A/G Ratio 1.4 Ratio 04/21/2015 Comp Metabolic Bjr878 Osmo 278 mOsmo 04/21/2015 Review of Systems System Result Effective [...] normal 08/30/2016 None Full Exam - General 1995 Ears/Nose/Throat otoscopic exam Overall: external auditory canals [...] Procedure Codes Date THER/PROPH/DIAG INJ SC/IM CPT-4: 22301 06/22/2017 TRIAMCINOLONE ACET INJ NOS CPT-4: J3301 06/22/2017 THER/PROPH/DIAG INJ SC/IM CPT-4: 50085 08/04/2015 TRIAMCINOLONE ACET INJ NOS CPT-4: J3301 08/04/2015 Vital Signs Date Vital 05/04/2018 Blood Pressure 1: 158/88 Code : 8480-6 BMI: 33.3 Code : 77313-8 Heart Rate 1 : 63 bpm Height: 5'1" SpO2: 98% Weight: 176 lbs 01/10/2018 Blood Pressure 1: 138/88 Code : 8480-6 BMI: 31.9 Code : 69420-9 Heart Rate 1 : 78 bpm Height: 5'1" SpO2: 99% Weight: 169 lbs 12/06/2017 Blood Pressure 1: 158/98 Code : 8480-6 BMI: 32.3 Code : 79241-0 Heart Rate 1 : 60 bpm Height: 5'1" SpO2: 100% Weight: 171 lbs 06/22/2017 Blood Pressure 1: 168/92 Code : 8480-6 BMI: 32.6 Code : 49272-3 Heart Rate 1 : 133 bpm Height: 5'1" SpO2: 97% Temperature: 37.6 (C) / 99.7 (F) Weight: 172 lbs 8 oz 03/02/2017 Blood Pressure 1: 168/90 Code : 8480-6 BMI: 35.0 Code : 01327-8 Heart Rate 1 : 80 bpm Height: 5'1" SpO2: 94% Weight: 185 lbs 01/24/2017 Blood Pressure 1: 130/68 Code : 8480-6 BMI: 35.3 Code : 20029-8 Heart Rate 1 : 66 bpm Height: 5'1" SpO2: 98% Weight: 187 lbs 10/13/2016 Blood Pressure 1: 136/74 Code : 8480-6 BMI: 35.1 Code : 70910-2 Heart Rate 1 : 71 bpm Height: 5'1" SpO2: 97% Weight: 186 lbs 08/30/2016 Blood Pressure 1: 128/80 Code : 8480-6 BMI: 35.0 Code : 79050-7 Heart Rate 1 : 75 bpm Height: 5'1" SpO2: 96% Weight: 185 lbs 8 oz 07/02/2016 Blood Pressure 1: 140/78 Code : 8480-6 Heart Rate 1: 63 bpm Height: 5'1" SpO2: 98% 06/24/2016 Blood Pressure 1: 148/100 Code: 8480-6 BMI: 34.2 Code: 57379-3 Heart Rate 1: 110 bpm Height : 5'1" SpO2: 94% Weight: 181 lbs 05/04/2016 Blood Pressure 1: 134/82 Code : 8480-6 Blood Pressure 1: 150/90 Code: 8480-6 BMI: 34.6 Code: 15453-2 Heart Rate 1: 74 bpm Height: 5'1" SpO2: 98% Weight: 183 lbs 04/06/2016 Blood Pressure 1: 158/88 Code : 8480-6 Blood Pressure 1: 156/92 Code: 8480-6 BMI: 34.8 Code: 21714-1 Heart Rate 1: 69 bpm Height: 5'1" SpO2: 97% Weight: 184 lbs 03/18/2016 Blood Pressure 1: 148/90 Code : 8480-6 BMI: 35.1 Code : 53892-6 Heart Rate 1 : 106 bpm Height: 5'1" SpO2: 94% Weight: 186 lbs 03/11/2016 Blood Pressure 1: 140/90 Code : 8480-6 BMI: 35.1 Code : 64428-2 Heart Rate 1 : 103 bpm Height: 5'1" SpO2: 96% Weight: 186 lbs 02/24/2016 Blood Pressure 1: 130/80 Code : 8480-6 BMI: 34.4 Code : 06871-7 Heart Rate 1 : 110 bpm Height: 5'1" SpO2: 96% Weight: 182 lbs 12/16/2015 Blood Pressure 1: 144/98 Code : 8480-6 BMI: 33.8 Code : 28079-7 Heart Rate 1 : 97 bpm Height: 5'1" SpO2: 98% Weight: 179 lbs 10/30/2015 Blood Pressure 1: 138/88 Code : 8480-6 BMI: 33.6 Code : 28900-6 Heart Rate 1 : 88 bpm Height: 5'1" SpO2: 98% Weight: 178 lbs 09/23/2015 Blood Pressure 1: 152/94 Code : 8480-6 BMI: 32.7 Code : 60027-0 Heart Rate 1 : 83 bpm Height: 5'1" SpO2: 97% Weight: 173 lbs 09/10/2015 Blood Pressure 1: 136/82 Code : 8480-6 BMI: 32.1 Code : 36495-7 Heart Rate 1 : 105 bpm Height: 5'1" SpO2: 97% Weight: 170 lbs 08/12/2015 Blood Pressure 1: 132/70 Code : 8480-6 BMI: 31.2 Code : 03713-3 Heart Rate 1 : 88 bpm Height: 5'1" SpO2: 95% Temperature: 36.7 (C) / 98.0 (F) Weight: 165 lbs 08/04/2015 Blood Pressure 1: 136/80 Code : 8480-6 BMI: 31.0 Code : 89500-3 Heart Rate 1 : 110 bpm Height: 5'1" SpO2: 98% Weight: 164 lbs 05/16/2015 Blood Pressure 1: 138/88 Code : 8480-6 BMI: 32.9 Code : 95730-9 Heart Rate 1 : 87 bpm Height: 5'1" SpO2: 90% Weight: 174 lbs 05/12/2015 BMI: 31.7 Code: 31306-7 Height: 5'1" Weight: 168 lbs 04/21/2015 Blood Pressure 1: 124/82 Code : 8480-6 BMI: 32.1 Code : 03707-7 Heart Rate 1 : 87 bpm Height: [...] Diagnosis: Mixed hyperlipidemia[ICD10: E78.2] Britney Maya MD, [facility] CPT-4: 36312 05/04/2018 78771 EST. PATIENT, LEVEL IV Diagnosis: Essential (primary) hypertension[ICD10: I10] Diagnosis: Interstitial pulmonary disease, unspecified[ICD10: J84.9] Diagnosis: Chronic kidney disease, stage 3 (moderate)[ICD10: N18.3] Diagnosis: Mixed hyperlipidemia[ICD10: E78.2] Britney Maya MD, [facility] CPT-4: 97052 01/10/2018 58612 EST. PATIENT, LEVEL IV Diagnosis: Other specified hypothyroidism[ICD10: E03.8] Diagnosis: Essential (primary) hypertension[ICD10: I10] Britney Maya MD, [facility] CPT-4: 95694 12/06/2017 71163 EST. PATIENT, LEVEL IV Diagnosis: Other malaise[ICD10: R53.81] Diagnosis: Other fatigue[ICD10: R53.83] Britney Maya MD, [facility] CPT-4 : 76752 06/22/2017 26956 EST. PATIENT, LEVEL IV Diagnosis: Acute laryngopharyngitis[ICD10: J06.0] Diagnosis: Other acute sinusitis[ICD10: J01.80] Diagnosis: Other allergic rhinitis[ICD10: J30.89] Britney Maya MD, [facility] CPT-4: 77550 03/02/2017 41967 EST. PATIENT, LEVEL IV Diagnosis: Generalized hyperhidrosis[ICD10: R61] Diagnosis: Other acute sinusitis[ICD10: J01.80] Diagnosis: Other fatigue[ICD10: R53.83] Diagnosis: Interstitial pulmonary disease, unspecified[ICD10: J84.9] Britney Maya MD, [facility] CPT-4: 30977 01/24/2017 92094 EST. PATIENT, LEVEL IV Diagnosis: Acute laryngopharyngitis[ICD10: J06.0] Diagnosis: Other acute sinusitis[ICD10: J01.80] Britney Maya MD, [facility] CPT-4: 71655 10/13/2016 ([id number]) 71268 EST. PATIENT, LEVEL IV Diagnosis: Essential (primary) hypertension[ICD10: I10] Diagnosis: Drug-induced polyneuropathy[ICD10: G62.0] Diagnosis: Impaired fasting glucose[ICD10: R73.01] Catie Maya MD, [facility] CPT-4: 24303 08/30/2016 27149 EST. PATIENT, LEVEL IV Diagnosis: Pain in thoracic spine[ICD10: M54.6] Diagnosis: Pain in left shoulder[ICD10: M25.512] Diagnosis: Zoster without complications[ICD10: B02.9] Britney Maya MD, [facility] CPT-4: 39267 07/02/2016 10812 EST. PATIENT, LEVEL III Diagnosis: Other specified hypothyroidism[ICD10: E03.8] Diagnosis: Menopausal and female climacteric states[ICD10: N95.1] Diagnosis: Essential (primary) hypertension[ICD10: I10] Britney Maya MD, [facility] CPT-4: 77063 06/24/2016 ([id number]) 82146 EST. PATIENT, LEVEL IV Diagnosis: Essential (primary) hypertension[ICD10: I10] Diagnosis: Atrophy of thyroid (acquired)[ICD10: E03.4] Diagnosis: Pain in left foot[ICD10: M79.672] Meghana Maya MD, [facility] CPT-4: 52411 05/04/2016 ([id number]) 99179 EST. PATIENT, LEVEL IV Diagnosis: Essential (primary) hypertension[ICD10: I10] Diagnosis: Pain in left leg[ICD10: M79.605] Diagnosis: Pain in left foot[ICD10: M79.672] Diagnosis: Atrophy of thyroid (acquired)[ICD10: E03.4] Meghana Maya MD, [facility] CPT-4: 68599 04/06/2016 ([id number]) 05911 EST. PATIENT, LEVEL III Diagnosis: Essential (primary) hypertension[ICD10: I10] Diagnosis: Localized edema[ICD10: R60.0] Catie Maya MD, [facility] CPT-4: 31874 03/18/2016 ([id number]) 87695 EST. PATIENT, LEVEL III Diagnosis: Essential (primary) hypertension[ICD10: I10] Diagnosis: Pain in left foot[ICD10: M79.672] Catie Maya MD, [facility] CPT-4: 56662 03/11/2016 ([id number]) 99548 EST. PATIENT, LEVEL III Diagnosis: Localized edema[ICD10: R60.0] Diagnosis: Essential (primary) hypertension[ICD10: I10] Catie Maya MD, [facility] CPT-4: 39235 02/24/2016 ([id number]) 16525 EST. PATIENT, LEVEL IV Diagnosis: Hypothyroidism, unspecified[ICD10: E03.9] Diagnosis: Essential (primary) hypertension[ICD10: I10] Meghana Maya MD [facility] CPT-4: 49006 12/16/2015 ([id number]) 77192 EST. PATIENT, LEVEL III Diagnosis: Essential (primary) hypertension[ICD10: I10] Diagnosis: Hypothyroidism, unspecified[ICD10: E03.9] Meghana Maya MD, [facility] CPT-4: 20158 10/30/2015 ([id number]) 91802 EST. PATIENT, LEVEL IV Diagnosis: Diarrhea, unspecified[ICD10: R19.7] Diagnosis: Essential (primary) hypertension[ICD10: I10] Meghana Maya MD, [facility] CPT-4: 06701 09/23/2015 ([id number]) 07553 EST. PATIENT, LEVEL III Diagnosis: Essential (primary) hypertension[ICD10: I10] Diagnosis: Diarrhea, unspecified[ICD10: R19.7] Meghana Maya MD, [facility] CPT-4: 92482 09/10/2015 ([id number]) 44763 EST. PATIENT, LEVEL III Diagnosis: Acute maxillary sinusitis, unspecified[ICD10: J01.00] Diagnosis: Myositis, unspecified[ICD10: M60.9] Meghana Maya MD, [facility] CPT-4: 11631 08/12/2015 ([id number]) 75776 EST. PATIENT, LEVEL IV Diagnosis: Essential (primary) hypertension[ICD10: I10] Diagnosis: Pain in left leg[ICD10: M79.605] Diagnosis: Other myositis, multiple sites[ICD10: M60.89] Diagnosis: Hypothyroidism, unspecified[ICD10: E03.9] Meghana Maya MD, [facility] CPT-4: 79423 08/04/2015 11938 EST. PATIENT, LEVEL III Diagnosis: Dyspnea, unspecified[ICD10: R06.00] Diagnosis: Essential (primary) hypertension[ICD10: I10] Meghana Maya MD, [facility] CPT-4: 04914 05/16/2015 ([id number]) 24343 EST. PATIENT, LEVEL II Diagnosis: Dyspnea, unspecified[ICD10: R06.00] Meghana Maya MD, [facility] CPT-4: 81950 05/12/2015 ([id number]) OFFICE VISIT, NEW - LEVEL 4 Diagnosis: Essential (primary) hypertension[ICD10: I10] Diagnosis: Impaired fasting glucose[ICD10: R73.01] Diagnosis: Mixed hyperlipidemia[ICD10: E78.2] Diagnosis: Hypothyroidism, unspecified[ICD10: E03.9] Diagnosis: Encounter for screening mammogram for malignant neoplasm of breast[ ICD10: Z12.31] Catie Maya MD, [facility] CPT-4: 95487 04/21/2015 Plan of Care Planned Activity Notes Codes Status Date Visit Plan: Hypertension - well controlled - [...] the current treatment plan 05/04/2018 [phone] ([facility] min) Moderate 05/04/2018 Patient Education: [...] the current treatment plan 01/10/2018 App[facility]ment[phone] (30 min) Complex 01/10/2018 Patient Education: Patient [...] previous levels of control. 12/06/2017 Appointment: Britney Bower: [facility] (15 min) Moderate 12/06/2017 Patient Education: Patient Medication Summary Completed 12/06/2017 Visit Plan: URI - Pt advised to increase fluids, vitamin C. Discussed natural and expected course of this diagnosis and need to alert me if symptoms do not follow expected course, or if any worse. RX sent to patient' s pharmacy. 06/22/2017 Appointment: Britney Bower WPtel: [facility]5 [facility] (15 min) Moderate 06/22/2017 Patient Education: Patient [...] allergy spray. 03/02/2017 Appointment: Britney Bower WPtel: [facility]5 [facility] (10 min) Simple 03/02/2017 Patient Education: Patient Medication Summary Completed 03/02/2017 Patient Education: Obesity Completed 03/02/2017 Visit Plan: Sinusitis - Pt has acute infection - pain in face, maxillary region, Pt informed to use decongestant, RX given to patient, sinus rinses also recommended. Call if symptoms do not show improvement. 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 Maya - will increase clonidine to BID - pt is to consider referral to dermatology - notify clinic if symptoms do not improve, if they worsen, or with any other questions or concerns. 01/24/2017 Appointment: Britney Bower WPtel: [address] [place], [place] [id number] (30 min) Complex 01/24/2017 Patient Education: Patient [...] show improvement. 10/13/2016 Appointment: Britney Bower WPtel: [facility] (30 min) Complex 10/13/2016 Patient Education: Patient Medication Summary Completed 10/13/2016 Patient Education: Obesity Completed 10/13/2016 Visit Plan: Hypertension - well controlled - continue with current medications, continue with no added salt diet. Pt has been encouraged to exercise daily. The pt has been advised to call the office if there are any acute concerns about change in blood pressure readings at home. Sweats/halfway use of steroids-check Hgb A1C Peripheral neuropathy-improved with B12- seeing Dr Duran for tarsel tunnel syndrome 08/30/2016 Appointment: Catie Shoemaker WPtel: [facility]6 [phone] (15 min) Moderate 08/30/2016 Patient Education: Patient Medication Summary Completed 08/30/2016 Patient Education: Obesity Completed 08/30/2016 Care Plan: %Hba1C LOINC : 89308-1 Ordered 08/30/2016 Care Plan: Comp Metabolic Ordered [...] contagious. 07/02/2016 Appointment: [phone] ([facility] min) Complex 07/02/2016 Patient Education: [...] control. 06/24/2016 Appointment: [phone] [facility] (30 min) Complex 06/24/2016 Patient Education: Patient Medication Summary Completed 06/24/2016 Patient Education: Obesity Completed 06/24/2016 Patient Education: Hypertension Completed 06/24/2016 Patient Education: Patient Medication Summary Completed 05/14/2016 Care Plan: SCREENINGMAMMOGRAPHYDIGITAL [facility] : 11251-9 Pending 05/14/2016 Visit Plan: Hypertension - well [...] is painful. 05/04/2016 Appointment: Meghana Maya WPtel: [facility]5 [facility] (15 min) Moderate 05/04/2016 Patient Education: Patient [...] medication. 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 Patient has noticed worsening symptoms since decreasing prednisone. 03/11/2016 Appointment: Catie Shoemaker WPtel: [facility] (15 min) Moderate 03/11/2016 Patient Education: Patient Medication Summary Completed 03/11/2016 Patient Education: Obesity Completed 03/11/2016 Appointment: Catie Shoemaker WPtel: [phone] (30 min) Complex 03/09/2016 Visit Plan: Edema [...] daily 02/24/2016 Appointment: Catie Shoemaker WPtel: [phone] [phone] (15 min) Moderate 02/24/2016 Patient Education: Patient Medication Summary Completed 02/24/2016 Patient Education: Obesity Completed 02/24/2016 Patient Education: Hypertension Completed 02/24/2016 Appointment: Meghana Maya WPtel: [phone] [facility] (15 min) Moderate 02/23/2016 Visit Plan: Hypertension [...] of control. 12/16/2015 Appointment: Meghana Maya WPtel: [phone] [facility] (15 min) Moderate 12/16/2015 Patient Education: Patient [...] Complex 10/23/2015 Appointment: [phone] (15 min) Moderate 10/23/2015 Visit Plan: Hypertension [...] home. 09/10/2015 Appointment: [phone] (15 min) Moderate 09/10/2015 Patient Education: [...] min) Complex 07/24/2015 Appointment: [phone] (15 min) Moderate 07/24/2015 Appointment: Lab [...] Completed 04/21/2015 Care Plan: SCREENINGMAMMOGRAPHYDIGITAL LOINC : 25695-1 Ordered 04/21/2015 Appointment: Meghana Maya [facility]Ptel[phone] [facility] [place] New Patient 04/01/2015 Referral: Sharon Duran Referral Appointment Requested Instructions Comment DECREASE AMLODIPINE TO 1/2 TAB DAILY START [...] beta anuj-metoprolol 25mg daily . Hypertension - well controlled - continue [...] Call if symptoms do not show improvement. DR. CROUCH IS THE MEDIA RELATIONS ASSOCIATE WHO SPECIALIZES IN FOOT AND ANKLE DISEASE AT [address] INCREASE THE METOPROLOL TO 1.5 PILLS [...] Hypothyroid - continue with current medication. . 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 . 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 . Hypothyroidism - pt with chronic hypothyroidism, [...] change in blood pressure readings at home. PATIENT IS TO CHECK BLOOD PRESSURE AND HEART RATE TWO TIMES DAILY AND BRING IN A RECORD OF THE READINGS INTO THE OFFICE IN TWO WEEKS. APPOINTMENT WITH RHEUMATOLGIST AT [facility] LEFT FOOT . 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 Patient has [...] any changes in the current treatment plan probiotic - [employer] probiotic pearls, etc - take three times [...] change in blood pressure readings at home. 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 Hypertension - well [...] to medications. Elevated blood sugar-check Hgb A1C kenalog today. URI - Pt advised to [...]
--- OUTSIDE RECORDS SUMMARY | 2018-09-30 13:43 | XMS REPORT | CCD ---
Author Author Catie Shoemaker MD, [facility] Address [address] [place] [address] Phone Care Team Providers Care Mamma Logist Name Role Phone PP Unavailable CCM Unavailable Summary Purpose Interface Exchange Insurance Providers Payer name Policy type / Coverage type Covered green party ID Effective Begin Date Effective End Date [facility] Commercial Insurance [id number] Unknown Family history Mother Diagnosis Age At Onset Hypertension Unknown Breast cancer Unknown Osteoporosis Unknown Father Diagnosis Age At Onset kidney disease Unknown Cancer Unknown Hyperlipidemia Unknown Social History Social History Element Codes Description Effective Dates Marital status Unknown 04/21/2015 Number of children Unknown 1 04/21/2015 Employment Unknown 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 04/21/[address]: 145038259 Never smoker 04/21/2015 Alcohol history Unknown occasionally drinks alcohol 04/21/2015 Allergies, Adverse Reactions, Alerts Substance Reaction Codes Entered Date Inactivated Date Status [id number] REDUCTASE INHIBITORS myalgias Unknown 2015 No Inactive [...] Start Date Stop Date Status Fill Instructions losartan 25 mg tablet RxNorm: 658881 TAKE ONE TABLET BY MOUTH DAILY 04/17/2018 07/15/2018 Active losartan 25 mg tablet RxNorm: 109696 TAKE ONE TABLET BY MOUTH DAILY 04/17/2018 04/16/2018 Inactive Lipitor 20 mg tablet RxNorm: 515200 1 Tablet(s) PO daily 201705/11/2018 Active Lipitor 20 mg tablet RxNorm: 102692 1 Tablet(s) PO daily 201701/11/2018 Inactive clonidine HCl 0.1 mg tablet RxNorm: 092895 TAKE ONE TABLET BY MOUTH TWICE A DAY 01/04/2018 07/02/2018 Active potassium chloride ER 10 mEq tablet,extended release RxNorm: 311617 TAKE ONE TABLET BY MOUTH DAILY 01/04/20182018 Active losartan 25 mg tablet RxNorm: 932579 TAKE ONE TABLET BY MOUTH DAILY 01/03/2018 04/02/2018 Inactive levothyroxine 50 mcg tablet RxNorm: 243270 1 Tablet(s) PO daily 12/08/2017 12/02/2018 Active venlafaxine ER 150 mg capsule,extended release 24 hr RxNorm: 866488 TAKE ONE CAPSULE BY MOUTH DAILY 12/06/20172017 Inactive losartan 25 mg tablet RxNorm: 377023 1 Tablet(s) PO daily 201701/02/2018 Inactive metoprolol succinate ER 50 mg tablet,extended release 24 hr RxNorm: 119115 TAKE ONE TABLET BY MOUTH DAILY 08/29/201701/25 Inactive metoprolol succinate ER 50 mg tablet,extended release 24 hr RxNorm: 047075 TAKE ONE TABLET BY MOUTH DAILY 08/29/201708/28 Inactive metoprolol succinate ER 50 mg tablet,extended release 24 hr RxNorm: 763542 TAKE ONE TABLET BY MOUTH DAILY 08/29/201708/28 Inactive Tamiflu 75 mg capsule RxNorm: 964368 1 Capsule(s) PO BID 201606/26/2017 Inactive Kenalog 40 mg/mL suspension for injection RxNorm: 9636326 1.5 Milliliter(s) Inj 06/22/2017 06/22/2017 Inactive clonidine HCl 0.1 mg tablet RxNorm: 438316 TAKE ONE TABLET BY MOUTH TWICE A DAY 06/06/2017 12/02/2017 Inactive potassium chloride ER 10 mEq tablet,extended release RxNorm: 540014 TAKE ONE TABLET BY MOUTH DAILY 06/06/20172017 Inactive venlafaxine ER 150 mg capsule,extended release 24 hr RxNorm: 195081 TAKE ONE CAPSULE BY MOUTH DAILY 05/23/20172017 Inactive Zithromax 500 mg tablet RxNorm: 564975 1 Tablet(s) PO daily 05/22/2017 Inactive potassium chloride ER 10 mEq tablet,extended release RxNorm: 255073 TAKE ONE TABLET BY MOUTH DAILY 04/21/20172016 Inactive potassium chloride ER 10 mEq tablet,extended release RxNorm: 649086 TAKE ONE TABLET BY MOUTH DAILY 03/16/20172016 Inactive Zithromax Z-Jacek 250 mg tablet RxNorm: 314677 1 Tablet(s) PO UD 03/02/2017 06/21/2017 Inactive venlafaxine ER 150 mg capsule,extended release 24 hr RxNorm: 943842 TAKE ONE CAPSULE BY MOUTH DAILY 02/17/20172017 Inactive venlafaxine ER 150 mg capsule,extended release 24 hr RxNorm: 874666 Capsule(s) TAKE ONE CAPSULE BY MOUTH DAILY 02/17/2017 02/16/2017 Inactive clonidine HCl 0.1 mg tablet RxNorm: 712902 TAKE ONE TABLET BY MOUTH EVERY NIGHT AT BEDTIME 02/14/2017 01/03/2018 Inactive metoprolol succinate ER 50 mg tablet,extended release 24 hr RxNorm: 313628 TAKE ONE TABLET BY MOUTH DAILY 02/14/201708/12 Inactive Protonix 40 mg tablet,delayed release RxNorm: 580656 TAKE ONE TABLET BY MOUTH DAILY WHILE ON PREDNISONE 01/25/201706/23 Inactive Zithromax Z-Jacek 250 mg tablet RxNorm: 530192 1 Tablet(s) PO UD 01/24/2017 01/03/2018 Inactive potassium chloride ER 10 mEq tablet,extended release RxNorm: 022492 TAKE ONE TABLET BY MOUTH DAILY 01/17/20172016 Inactive clonidine HCl 0.1 mg tablet RxNorm: 172905 TAKE ONE TABLET BY MOUTH EVERY NIGHT AT BEDTIME 01/17/2017 02/13/2017 Inactive potassium chloride ER 10 mEq tablet,extended release RxNorm: 813387 TAKE ONE TABLET BY MOUTH DAILY 12/16/20162016 Inactive venlafaxine ER 150 mg capsule,extended release 24 hr RxNorm: 075101 TAKE ONE CAPSULE BY MOUTH DAILY 11/18/20162016 Inactive clonidine HCl 0.1 mg tablet RxNorm: 068533 TAKE ONE TABLET BY MOUTH EVERY NIGHT AT BEDTIME 11/08/2016 01/06/2017 Inactive clonidine HCl 0.1 mg tablet RxNorm: 567338 1 Tablet(s) BID 01/16/2017 Inactive potassium chloride ER 10 mEq tablet,extended release RxNorm: 523941 TAKE ONE TABLET BY MOUTH DAILY 10/15/20162016 Inactive Zithromax Z-Jacek 250 mg tablet RxNorm: 752978 1 Tablet(s) PO UD 10/13/2016 01/03/2018 Inactive potassium chloride ER 10 mEq tablet,extended release RxNorm: 666121 TAKE ONE TABLET BY MOUTH DAILY 10/12/20162016 Inactive potassium chloride ER 10 mEq tablet,extended release RxNorm: 172028 Tablet(s) BID TAKE ONE TABLET BY MOUTH TWICE DAILY 09/17/2016 10/11/2016 Inactive potassium chloride ER 10 mEq tablet,extended release RxNorm: 202800 TAKE ONE TABLET BY MOUTH DAILY 09/13/20162016 Inactive clonidine HCl 0.1 mg tablet RxNorm: 593128 Tablet(s) TAKE ONE TABLET BY MOUTH EVERY NIGHT AT BEDTIME 08/12/20162016 Inactive gabapentin 300 mg capsule RxNorm: 008947 1 Capsule(s) PO QHS No Stop Date Active venlafaxine ER 150 mg capsule,extended release 24 hr RxNorm: 251346 TAKE ONE CAPSULE BY MOUTH DAILY 08/09/20162016 Inactive metoprolol succinate ER 50 mg tablet,extended release 24 hr RxNorm: 251174 TAKE ONE TABLET BY MOUTH DAILY 07/29/201601/24 Inactive clonidine HCl 0.1 mg tablet RxNorm: 710033 TAKE ONE TABLET BY MOUTH EVERY NIGHT AT BEDTIME 07/21/2016 08/11/2016 Inactive potassium chloride ER 10 mEq tablet,extended release RxNorm: 065333 TAKE ONE TABLET BY MOUTH DAILY 07/14/20162016 Inactive Prescriber not associated with this practice or location capsaicin 0.1 % topical cream RxNorm: 303871 1 Application TOP TID as needed 07/02/2016 No Stop Date Active acyclovir 400 mg tablet RxNorm: 966707 2 Tablet(s) PO QID 07/0207/11/2016 Inactive cyclobenzaprine 5 mg tablet RxNorm: 177250 1-2 Tablet(s) PO TID as needed 07/02/2016 07/06/2016 Inactive Protonix 40 mg tablet,delayed release RxNorm: 674182 TAKE ONE TABLET BY MOUTH DAILY WHILE ON PREDNISONE 06/29/201612/25 Inactive clonidine HCl 0.1 mg tablet RxNorm: 036616 1 Tablet(s) PO QHS 06/25/2016 07/20/2016 Inactive calcium carbonate 500 mg calcium (1,250 mg) tablet RxNorm: 529555 TAKE ONE TABLET BY MOUTH DAILY WHILE ON PREDNISONE. MAY STOP TAKING WHEN PREDNISONE IS COMPLETE 06/01/2016 09/28/2016 Inactive Vitamin D3 1,000 unit tablet RxNorm: 540429 1 Tablet(s) PO daily . May stop taking once prednisone is complete. 04/26/2016 10/22/2016 Inactive metoprolol succinate ER 50 mg tablet,extended release 24 hr RxNorm: 009500 1.5 Tablet(s) PO daily 04/06/2016 06/23/2016 Inactive prednisone 10 mg tablet RxNorm: 790505 1 Tablet(s) PO daily 12/201506/21/2017 Inactive metoprolol succinate ER 50 mg tablet,extended release 24 hr RxNorm: 961258 1 Tablet(s) PO daily 03/18/2016 04/05/2016 Inactive amlodipine 10 mg tablet RxNorm: 832485 1/2 Tablet(s) PO daily 02/24/2016 06/21/2016 Inactive metoprolol succinate ER 25 mg tablet,extended release 24 hr RxNorm: 669168 1 Tablet(s) PO daily 02/24/2016 03/16/2016 Inactive calcium carbonate 500 mg calcium (1,250 mg) tablet RxNorm: 541149 TAKE ONE TABLET BY MOUTH DAILY WHILE ON PREDNISONE. MAY STOP TAKING WHEN PREDNISONE IS COMPLETE 02/16/2016 05/15/2016 Inactive Protonix 40 mg tablet,delayed release RxNorm: 419928 TAKE ONE TABLET BY MOUTH DAILY WHILE ON PREDNISONE 02/10/201605/09 Inactive venlafaxine ER 150 mg capsule,extended release 24 hr RxNorm: 920789 Capsule(s) TAKE ONE CAPSULE BY MOUTH DAILY 12/10/2015 04/07/2016 Inactive calcium carbonate 500 mg calcium (1,250 mg) tablet RxNorm: 581823 1 Tablet(s) PO daily 12/01/2015 01/29/2016 Inactive Vitamin D3 1,000 unit tablet RxNorm: 422441 1 Tablet(s) PO daily 12/01/2015 03/29/2016 Inactive levothyroxine 50 mcg tablet RxNorm: 235246 1 Tablet(s) PO daily 12/01/2015 11/24/2016 Inactive amlodipine 10 mg tablet RxNorm: 720907 1 Tablet(s) PO daily 11/18/2015 Inactive amlodipine 10 mg tablet RxNorm: 605449 1 Tablet(s) PO daily 02/23/2016 Inactive amlodipine 5 mg tablet RxNorm: 008606 1 Tablet(s) PO daily 11/18/2015 Inactive venlafaxine ER 150 mg capsule,extended release 24 hr RxNorm: 918223 TAKE ONE CAPSULE BY MOUTH DAILY 11/13/20152015 Inactive Protonix 40 mg tablet,delayed release RxNorm: 077316 1 Tablet(s) PO daily while on prednisone 2015 02/09/2016 Inactive prednisone 10 mg tablet RxNorm: 906409 2 Tablet(s) PO UD 201504/01/2016 Inactive 60mg for 2 days, then 50mg for 2 days, then 40mg for 2 days, then 30mg for 2 days, then 20mg for 2 days, then 10mg for 2 days, then 5mg for 2 days potassium chloride ER 10 mEq tablet,extended release RxNorm: 694718 TAKE ONE TABLET BY MOUTH DAILY 09/22/20152015 Inactive venlafaxine ER 150 mg capsule,extended release 24 hr RxNorm: 985767 TAKE ONE CAPSULE BY MOUTH DAILY 09/08/20152015 Inactive cefdinir 300 mg capsule RxNorm: 416741 1 Capsule(s) PO BID 08/22/2015 Inactive cefdinir 300 mg capsule RxNorm: 115521 1 Capsule(s) PO BID 08/18/2015 Inactive Kenalog 40 mg/mL suspension for injection RxNorm: 4870733 1 Milliliter(s) Inj 08/04/2015 08/04/2015 Inactive triamterene 37.5 mg-hydrochlorothiazide 25 mg tablet RxNorm: 178871 1 Tablet(s) PO BID 06/17/2015 08/03/2015 Inactive potassium chloride ER 10 mEq tablet,extended release RxNorm: 369093 1 Tablet(s) PO daily 05/30/2015 08/03/2015 Inactive Levaquin 250 mg tablet RxNorm: 271106 Tablet(s) PO UD 500 mg day one, then 250 mg day 2-7 05/27/2015 08/03/2015 Inactive prednisone 10 mg tablet RxNorm: 623996 Tablet(s) PO UD 201410/29/2015 Inactive 60mg for 2 days, then 50mg for 2 days, then 40mg for 2 days, then 30mg for 2 days, then 20mg for 2 days, then 10mg for 2 days, then 5mg for 2 days albuterol sulfate 1.25 mg/3 mL solution for nebulization RxNorm: 198623 3 Milliliter(s) INH Q4-6H as needed dyspnea 05/23/2015 No Stop Date Active Zithromax 500 mg tablet RxNorm: 452400 1 Tablet(s) PO daily 05/15/2015 Inactive Zithromax 500 mg tablet RxNorm: 611599 1 Tablet(s) PO daily 05/20/2015 Inactive prednisone 20 mg tablet RxNorm: 552471 3 Tablet(s) PO daily 05/16/2015 Inactive venlafaxine ER 150 mg capsule,extended release 24 hr RxNorm: 013984 TAKE ONE CAPSULE BY MOUTH DAILY 05/12/20152015 Inactive Keflex 500 mg capsule RxNorm: 182679 1 Capsule(s) PO TID 201405/18/2015 Inactive simvastatin 20 mg tablet RxNorm: 214439 1 Tablet(s) PO daily 04/09/2015 Inactive simvastatin 20 mg tablet RxNorm: 082973 1 Tablet(s) PO daily 08/11/2015 Inactive venlafaxine ER 150 mg capsule,extended release 24 hr RxNorm: 497856 TAKE ONE CAPSULE BY MOUTH DAILY 04/08/20152014 Inactive amlodipine 5 mg tablet RxNorm: 358004 1 Tablet(s) PO daily 04/201503/06/2015 Inactive amlodipine 5 mg tablet RxNorm: 895785 1 Tablet(s) PO daily 04/201507/04/2015 Inactive venlafaxine ER 150 mg capsule,extended release 24 hr RxNorm: 652424 1 Capsule(s) PO daily 01/29/2015 03/29/2015 Inactive metoprolol succinate ER 50 mg tablet,extended release 24 hr RxNorm: 929324 1 Tablet(s) PO daily No Start Date Active vitamin B complex oral RxNorm: 46438 oral No Start Date Active Co Q-10 oral RxNorm: 60743 oral No Start Date Active albuterol sulfate 1.25 mg/3 mL solution for nebulization RxNorm: 679249 3 Milliliter(s) INH Q4-6H as needed dyspnea No Start Date 05/22/2015 Inactive levothyroxine 50 mcg tablet RxNorm: 339526 1 Tablet(s) PO daily No Start Date 11/30/2015 Inactive gabapentin 300 mg capsule RxNorm: 086037 1 Capsule(s) PO QHS No Start Date 08/09/2016 Inactive Vitamin D3 1,000 unit tablet RxNorm: 522628 1 Tablet(s) PO daily No Start Date 11/30/2015 Inactive Protonix 40 mg tablet,delayed release RxNorm: 611622 1 Tablet(s) PO daily while on prednisone No Start Date 10/30/2015 Inactive calcium carbonate oral RxNorm: oral No Start Date 11/30/2015 Inactive potassium chloride ER 10 mEq tablet,extended release RxNorm: 437694 1 Tablet(s) PO daily No Start Date 05/29/2015 Inactive Levaquin 250 mg tablet RxNorm: 167199 Tablet(s) PO UD 500 mg day one, then 250 mg day 2-7 No Start Date 05/26/2015 Inactive triamterene 37.5 mg-hydrochlorothiazide 25 mg tablet RxNorm: 829420 1 Tablet(s) PO BID No Start Date 06/16/2015 Inactive prednisone 10 mg tablet RxNorm: 993146 Tablet(s) PO UD No Start Date 05/26/2015 Inactive 60mg for 2 days, then 50mg for 2 days, then 40mg for 2 days, then 30mg for 2 days, then 20mg for 2 days, then 10mg for 2 days, then 5mg for 2 days venlafaxine ER 150 mg capsule,extended release 24 hr RxNorm: 412659 1 Capsule(s) PO daily No Start Date 01/28/2015 Inactive Medication Administered Medication Codes Instructions Start Date Status Kenalog 40 mg/mL suspension for injection RxNorm: 7912566 1.5Milliliter 06/22/2017 No longer Active Kenalog 40 mg/mL suspension for injection RxNorm: 9218016 1Milliliter 08/04/2015 No longer Active Immunizations No [...] Item Item Code Result Date Comp Metabolic Rul750 NA 140 mEq/L 01/10/2018 Comp Metabolic Bia525 K 3.8 mEq/L 01/10/2018 Comp Metabolic Knu018 CL 106 mEq/L 01/10/2018 Comp Metabolic Ext953 CO2 25.0 mEq/L 01/10/2018 Comp Metabolic Mgp960 ANION GAP 13 01/10/2018 Comp Metabolic Iyf037 GLUCOSE 110 mg/dL 01/10/2018 Comp Metabolic Erm356 Creat 1.5 mg/dL 01/10/2018 Comp Metabolic Min335 eGFR 37 ml/min/1.73m2 01/10/2018 Comp Metabolic Djl760 BUN 23 mg/dL 01/10/2018 Comp Metabolic Rse130 B/C Ratio 15.3 Ratio 01/10/2018 Comp Metabolic Sbm007 CALCIUM 9.2 mg/dL 01/10/2018 Comp Metabolic Jjb307 ALK PHOS 87 U/L 01/10/2018 Comp Metabolic Hip700 AST(SGOT) 15 U/L 01/10/2018 Comp Metabolic Sen757 ALT(SGPT) 9 U/L 01/10/2018 Comp Metabolic Bkf041 BILI T 0.4 mg/dL 01/10/2018 Comp Metabolic Znv922 ALBUMIN 3.8 g/dL 01/10/2018 Comp Metabolic Bam386 TPRO 6.2 g/dL 01/10/2018 Comp Metabolic Cwh491 GLOB 2.4 g/dL 01/10/2018 Comp Metabolic Euv122 A/G Ratio 1.6 Ratio 01/10/2018 Comp Metabolic Cwh694 Osmo 284 mOsmo 01/10/2018 C-Reactive Protein Qnt [...] 27.6 pg 01/10/2018 Cbc With Differential Ord2 [place]% 15.2 % 01/10/2018 Cbc With Differential Ord2 [...] 1.47 K/ul 01/10/2018 Cbc With Differential Ord2 [place] ABS# 1.0 K/ul 01/10/2018 Cbc With Differential Ord2 Eos ABS# 0.1 K/ul 01/10/2018 Cbc With Differential Ord2 Baso ABS# 0.0 K/ul 01/10/2018 Sed Rate Ord21 ESR 12 mm/hr 01/10/2018 Free T4 Kmp957 FREE T4 0.57 ng/dL 12/06/2017 Tsh Ord6 TSH (3rd IS) 7.40 uIU/mL 12/06/2017 C A/B FLU [id number] Influenza A Scr Negative 06/22/2017 C A/B FLU 3771829 Influenza B Scr Negative 06/22/2017 C A/B FLU [id number] Influenza Intrp B AG: PRID:PT:NOSE:NOM:IF See Footnote 06/22/2017 Comp Metabolic Sle584 NA 140 mEq/L 08/30/2016 Comp Metabolic Uvg996 K 3.3 mEq/L 08/30/2016 Comp Metabolic Oie415 CL 104 mEq/L 08/30/2016 Comp Metabolic Esy291 CO2 26.0 mEq/L 08/30/2016 Comp Metabolic Hwp059 ANION GAP 13 08/30/2016 Comp Metabolic Hcd925 GLUCOSE 143 mg/dL 08/30/2016 Comp Metabolic Xgt935 Creat 1.3 mg/dL 08/30/2016 Comp Metabolic Hkq752 eGFR 43 ml/min/1.73m2 08/30/2016 Comp Metabolic Bqs855 BUN 19 mg/dL 08/30/2016 Comp Metabolic Afl548 B/C Ratio 14.3 Ratio 08/30/2016 Comp Metabolic Xvb058 CALCIUM 10.0 mg/dL 08/30/2016 Comp Metabolic Pkc962 ALK PHOS 67 U/L 08/30/2016 Comp Metabolic Mvx062 AST(SGOT) 28 U/L 08/30/2016 Comp Metabolic Wxd754 ALT(SGPT) 43 U/L 08/30/2016 Comp Metabolic Clu469 BILI T 0.4 mg/dL 08/30/2016 Comp Metabolic Nlf135 ALBUMIN 4.0 g/dL 08/30/2016 Comp Metabolic Ubp993 TPRO 6.2 g/dL 08/30/2016 Comp Metabolic Kuj170 GLOB 2.2 g/dL 08/30/2016 Comp Metabolic Efe370 A/G Ratio 1.8 Ratio 08/30/2016 Comp Metabolic Dhv566 Osmo 284 mOsmo 08/30/2016 %Hba1C Vso988 % HbA1c 11604-9 6.1 % 08/30/2016 %Hba1C Ydl367 Gluc Ave 128 mg/dL 08/30/2016 Free T4 Udb958 FREE T4 0.75 ng/dL 06/25/2016 Tsh Ord6 [...] Ord90 Mag 2.1 mg/dL 12/16/2015 Free T4 Oye660 FREE T4 0.92 ng/dL 12/16/2015 Tsh Ord6 hTSH II 4.67 uIU/mL 12/16/2015 Sed Rate Ord21 ESR 12 mm/hr 08/05/2015 Tsh Ord6 hTSH II 2.32 uIU/mL 08/04/2015 Cbc With Differential Ord2 WBC 8.40 K/ul 08/04/2015 Cbc With Differential Ord2 RBC 4.21 M/ul 08/04/2015 Cbc With Differential Ord2 HGB 12.0 g/dl 08/04/2015 Cbc With Differential Ord2 Neut% 84.3 % 08/04/2015 Cbc With Differential Ord2 HCT 38.5 % 08/04/2015 Cbc With Differential Ord2 MCV 91.4 fl 08/04/2015 Cbc With Differential Ord2 Lymph% 8.7 % 08/04/2015 Cbc With Differential Ord2 MCH 28.5 pg 08/04/2015 Cbc With Differential Ord2 [place]% 6.1 % 08/04/2015 Cbc With Differential Ord2 [...] 0.73 K/ul 08/04/2015 Cbc With Differential Ord2 [place] ABS# 0.5 K/ul 08/04/2015 Cbc With Differential Ord2 Eos ABS# 0.1 K/ul 08/04/2015 Cbc With Differential Ord2 Baso ABS# 0.0 K/ul 08/04/2015 Cbc With Differential Ord2 New Analyzer Notice Please note new ref ranges starting 07-09-2015 due to implemntation of new five part differential hematolgy analyzer. 08/04/2015 C-Reactive Protein Qnt Crqnt CRP 0.8 mg/dl 08/04/2015 Comp Metabolic Lfq358 NA 139 mEq/L 08/04/2015 Comp Metabolic Rem744 K 3.4 mEq/L 08/04/2015 Comp Metabolic Avp838 CL 109 mEq/L 08/04/2015 Comp Metabolic Btp561 CO2 22.0 mEq/L 08/04/2015 Comp Metabolic Sfp578 ANION GAP 11 08/04/2015 Comp Metabolic Hhv163 GLUCOSE 177 mg/dL 08/04/2015 Comp Metabolic Brk248 Creat 1.0 mg/dL 08/04/2015 Comp Metabolic Rej724 eGFR 64 ml/min/1.73m2 08/04/2015 Comp Metabolic Hva023 BUN 35 mg/dL 08/04/2015 Comp Metabolic Cqb188 B/C Ratio 36.8 Ratio 08/04/2015 Comp Metabolic Fea609 CALCIUM 8.5 mg/dL 08/04/2015 Comp Metabolic Wkn297 ALK PHOS 57 U/L 08/04/2015 Comp Metabolic Inb342 AST(SGOT) 21 U/L 08/04/2015 Comp Metabolic Rhi609 ALT(SGPT) 63 U/L 08/04/2015 Comp Metabolic Ufr954 BILI T 0.3 mg/dL 08/04/2015 Comp Metabolic Qno462 ALBUMIN 3.1 g/dL 08/04/2015 Comp Metabolic Omb557 TPRO 5.1 g/dL 08/04/2015 Comp Metabolic Pkn373 GLOB 2.0 g/dL 08/04/2015 Comp Metabolic Jng454 A/G Ratio 1.6 Ratio 08/04/2015 Comp Metabolic Cps886 Osmo 290 mOsmo 08/04/2015 Cpk Ord61 CPK 52 U/L 08/04/2015 Random Urine Protein/Creatinine Ratio Rwn5546 U Prot 8.5 mg/dl 05/27/2015 Random Urine Protein/Creatinine Ratio Ycz8476 U CREAT 201.0 mg/dL 05/27/2015 Random Urine Protein/Creatinine Ratio Lnu8951 R MTP/Creat Ratio 0.04 05/27/2015 Urinalysis Ord28 [...] U-VOL VOLUME SUFFICIENT (10mL) 05/27/2015 Urinalysis Ord28 U-Com Urine saved if culture needed (specimen acceptable for 48 hours from collection if refrigerated) 05/27/2015 Urinalysis Ord28 U-Yeast NEGATIVE 05/27/2015 Renal Sfy019 NA 136 mEq/L 05/26/2015 Renal Wap856 K 3.3 mEq/L 05/26/2015 Renal Fel049 CL 99 mEq/L 05/26/2015 Renal Rmz552 CO2 25.0 mEq/L 05/26/2015 Renal Ajo911 ANION GAP 15 05/26/2015 Renal Xtd342 Osmo 274 mOsmo 05/26/2015 Renal Zkt021 GLUCOSE 106 mg/dL 05/26/2015 Renal Jkz561 BUN 17 mg/dL 05/26/2015 Renal Swb469 Creat 1.4 mg/dL 05/26/2015 Renal Mhz571 eGFR 40 ml/min/1.73m2 05/26/2015 Renal Mjb736 B/C Ratio 12.0 Ratio 05/26/2015 Renal Yqe150 CALCIUM 9.3 mg/dL 05/26/2015 Renal Nbg044 PHOS 3.4 mg/dL 05/26/2015 Renal Emb580 ALBUMIN 3.4 g/dL 05/26/2015 Cbc With Differential [...] Ord2 RDW 14.3 % 04/21/2015 Free T4 Fip610 FREE T4 0.91 ng/dL 04/21/2015 %Hba1C Jvb513 % HbA1c 48632-6 5.8 % 04/21/2015 %Hba1C Pyj852 Gluc Ave 120 mg/dL 04/21/2015 Comp Metabolic Vtz196 NA 137 mEq/L 04/21/2015 Comp Metabolic Elg174 K 3.6 mEq/L 04/21/2015 Comp Metabolic Ggy265 CL 98 mEq/L 04/21/2015 Comp Metabolic Mvy053 CO2 25.0 mEq/L 04/21/2015 Comp Metabolic Adw918 ANION GAP 18 04/21/2015 Comp Metabolic Syh941 GLUCOSE 83 mg/dL 04/21/2015 Comp Metabolic Wov421 Creat 1.6 mg/dL 04/21/2015 Comp Metabolic Djz518 eGFR 36 ml/min/1.73m2 04/21/2015 Comp Metabolic Ttp147 BUN 28 mg/dL 04/21/2015 Comp Metabolic Hmy115 B/C Ratio 17.9 Ratio 04/21/2015 Comp Metabolic Bpq015 CALCIUM 9.5 mg/dL 04/21/2015 Comp Metabolic Qaf081 ALK PHOS 60 U/L 04/21/2015 Comp Metabolic Egq641 AST(SGOT) 22 U/L 04/21/2015 Comp Metabolic Hqr650 ALT(SGPT) 10 U/L 04/21/2015 Comp Metabolic Lso608 BILI T 0.4 mg/dL 04/21/2015 Comp Metabolic Zvu947 ALBUMIN 4.0 g/dL 04/21/2015 Comp Metabolic Psq560 TPRO 6.8 g/dL 04/21/2015 Comp Metabolic Tga341 GLOB 2.8 g/dL 04/21/2015 Comp Metabolic Yao572 A/G Ratio 1.4 Ratio 04/21/2015 Comp Metabolic Urj151 Osmo 278 mOsmo 04/21/2015 Tsh Ord6 hTSH [...] Procedure Codes Date THER/PROPH/DIAG INJ SC/IM CPT-4: 78256 06/22/2017 TRIAMCINOLONE ACET INJ NOS CPT-4: J3301 06/22/2017 THER/PROPH/DIAG INJ SC/IM CPT-4: 03507 08/04/2015 TRIAMCINOLONE ACET INJ NOS CPT-4: J3301 08/04/2015 Vital Signs Date Vital 05/04/2018 Blood Pressure 1: 158/88 Code : 8480-6 BMI: 33.3 Code : 51200-0 Heart Rate 1 : 63 bpm Height: 5'1" SpO2: 98% Weight: 176 lbs 01/10/2018 Blood Pressure 1: 138/88 Code : 8480-6 BMI: 31.9 Code : 86143-0 Heart Rate 1 : 78 bpm Height: 5'1" SpO2: 99% Weight: 169 lbs 12/06/2017 Blood Pressure 1: 158/98 Code : 8480-6 BMI: 32.3 Code : 40293-0 Heart Rate 1 : 60 bpm Height: 5'1" SpO2: 100% Weight: 171 lbs 06/22/2017 Blood Pressure 1: 168/92 Code : 8480-6 BMI: 32.6 Code : 75020-9 Heart Rate 1 : 133 bpm Height: 5'1" SpO2: 97% Temperature: 37.6 (C) / 99.7 (F) Weight: 172 lbs 8 oz 03/02/2017 Blood Pressure 1: 168/90 Code : 8480-6 BMI: 35.0 Code : 69718-9 Heart Rate 1 : 80 bpm Height: 5'1" SpO2: 94% Weight: 185 lbs 01/24/2017 Blood Pressure 1: 130/68 Code : 8480-6 BMI: 35.3 Code : 51876-6 Heart Rate 1 : 66 bpm Height: 5'1" SpO2: 98% Weight: 187 lbs 10/13/2016 Blood Pressure 1: 136/74 Code : 8480-6 BMI: 35.1 Code : 49781-8 Heart Rate 1 : 71 bpm Height: 5'1" SpO2: 97% Weight: 186 lbs 08/30/2016 Blood Pressure 1: 128/80 Code : 8480-6 BMI: 35.0 Code : 60472-8 Heart Rate 1 : 75 bpm Height: 5'1" SpO2: 96% Weight: 185 lbs 8 oz 07/02/2016 Blood Pressure 1: 140/78 Code : 8480-6 Heart Rate 1: 63 bpm Height: 5'1" SpO2: 98% 06/24/2016 Blood Pressure 1: 148/100 Code: 8480-6 BMI: 34.2 Code: 75478-6 Heart Rate 1: 110 bpm Height : 5'1" SpO2: 94% Weight: 181 lbs 05/04/2016 Blood Pressure 1: 150/90 Code : 8480-6 Blood Pressure 1: 134/82 Code: 8480-6 BMI: 34.6 Code: 80576-3 Heart Rate 1: 74 bpm Height: 5'1" SpO2: 98% Weight: 183 lbs 04/06/2016 Blood Pressure 1: 156/92 Code : 8480-6 Blood Pressure 1: 158/88 Code: 8480-6 BMI: 34.8 Code: 05732-7 Heart Rate 1: 69 bpm Height: 5'1" SpO2: 97% Weight: 184 lbs 03/18/2016 Blood Pressure 1: 148/90 Code : 8480-6 BMI: 35.1 Code : 59735-8 Heart Rate 1 : 106 bpm Height: 5'1" SpO2: 94% Weight: 186 lbs 03/11/2016 Blood Pressure 1: 140/90 Code : 8480-6 BMI: 35.1 Code : 29634-8 Heart Rate 1 : 103 bpm Height: 5'1" SpO2: 96% Weight: 186 lbs 02/24/2016 Blood Pressure 1: 130/80 Code : 8480-6 BMI: 34.4 Code : 57016-3 Heart Rate 1 : 110 bpm Height: 5'1" SpO2: 96% Weight: 182 lbs 12/16/2015 Blood Pressure 1: 144/98 Code : 8480-6 BMI: 33.8 Code : 26600-7 Heart Rate 1 : 97 bpm Height: 5'1" SpO2: 98% Weight: 179 lbs 10/30/2015 Blood Pressure 1: 138/88 Code : 8480-6 BMI: 33.6 Code : 47750-5 Heart Rate 1 : 88 bpm Height: 5'1" SpO2: 98% Weight: 178 lbs 09/23/2015 Blood Pressure 1: 152/94 Code : 8480-6 BMI: 32.7 Code : 11886-7 Heart Rate 1 : 83 bpm Height: 5'1" SpO2: 97% Weight: 173 lbs 09/10/2015 Blood Pressure 1: 136/82 Code : 8480-6 BMI: 32.1 Code : 59011-7 Heart Rate 1 : 105 bpm Height: 5'1" SpO2: 97% Weight: 170 lbs 08/12/2015 Blood Pressure 1: 132/70 Code : 8480-6 BMI: 31.2 Code : 92657-8 Heart Rate 1 : 88 bpm Height: 5'1" SpO2: 95% Temperature: 36.7 (C) / 98.0 (F) Weight: 165 lbs 08/04/2015 Blood Pressure 1: 136/80 Code : 8480-6 BMI: 31.0 Code : 07681-8 Heart Rate 1 : 110 bpm Height: 5'1" SpO2: 98% Weight: 164 lbs 05/16/2015 Blood Pressure 1: 138/88 Code : 8480-6 BMI: 32.9 Code : 88340-9 Heart Rate 1 : 87 bpm Height: 5'1" SpO2: 90% Weight: 174 lbs 05/12/2015 BMI: 31.7 Code: 41584-4 Height: 5'1" Weight: 168 lbs 04/21/2015 Blood Pressure 1: 124/82 Code : 8480-6 BMI: 32.1 Code : 34978-5 Heart Rate 1 : 87 bpm Height: [...] data Encounters Encounter Performer Location Codes Date 76625 EST. PATIENT, LEVEL IV Diagnosis: Essential (primary) hypertension[ICD10: I10] Diagnosis: Interstitial pulmonary disease, unspecified[ICD10: J84.9] Diagnosis: Chronic kidney disease, stage 3 (moderate)[ICD10: N18.3] Diagnosis: Mixed hyperlipidemia[ICD10: E78.2] Britney Maya MD, [facility] CPT-4: 96938 05/04/2018 22496 EST. PATIENT, LEVEL IV Diagnosis: Essential (primary) hypertension[ICD10: I10] Diagnosis: Interstitial pulmonary disease, unspecified[ICD10: J84.9] Diagnosis: Chronic kidney disease, stage 3 (moderate)[ICD10: N18.3] Diagnosis: Mixed hyperlipidemia[ICD10: E78.2] Britney Maya MD, [facility] CPT-4: 29783 01/10/2018 18308 EST. PATIENT, LEVEL IV Diagnosis: Other specified hypothyroidism[ICD10: E03.8] Diagnosis: Essential (primary) hypertension[ICD10: I10] Britney Maya MD, [facility] CPT-4: 20504 12/06/2017 24558 EST. PATIENT, LEVEL IV Diagnosis: Other malaise[ICD10: R53.81] Diagnosis: Other fatigue[ICD10: R53.83] Britney Maya MD, [facility] CPT-4 : 41876 06/22/2017 09780 EST. PATIENT, LEVEL IV Diagnosis: Acute laryngopharyngitis[ICD10: J06.0] Diagnosis: Other acute sinusitis[ICD10: J01.80] Diagnosis: Other allergic rhinitis[ICD10: J30.89] Britney Maya MD, [facility] CPT-4: 18510 03/02/2017 09205 EST. PATIENT, LEVEL IV Diagnosis: Generalized hyperhidrosis[ICD10: R61] Diagnosis: Other acute sinusitis[ICD10: J01.80] Diagnosis: Other fatigue[ICD10: R53.83] Diagnosis: Interstitial pulmonary disease, unspecified[ICD10: J84.9] Britney Maya MD, [facility] CPT-4: 68075 01/24/2017 80622 EST. PATIENT, LEVEL IV Diagnosis: Acute laryngopharyngitis[ICD10: J06.0] Diagnosis: Other acute sinusitis[ICD10: J01.80] Britney Maya MD, [facility] CPT-4: 42889 10/13/2016 ([id number]) 29921 EST. 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 PATIENT, LEVEL IV Diagnosis: Pain in thoracic spine[ICD10: M54.6] Diagnosis: Pain in left shoulder[ICD10: M25.512] Diagnosis: Zoster without complications[ICD10: B02.9] Britney Maya MD, [facility] CPT-4: 18220 07/02/2016 11049 EST. PATIENT, LEVEL III Diagnosis: Other specified hypothyroidism[ICD10: E03.8] Diagnosis: Menopausal and female climacteric states[ICD10: N95.1] Diagnosis: Essential (primary) hypertension[ICD10: I10] Britney Maya MD, [facility] CPT-4: 62970 06/24/2016 ([id number]) 97598 EST. PATIENT, LEVEL IV Diagnosis: Essential (primary) hypertension[ICD10: I10] Diagnosis: Atrophy of thyroid (acquired)[ICD10: E03.4] Diagnosis: Pain in left foot[ICD10: M79.672] Mehgana Maya MD, [facility] CPT-4: 26303 05/04/2016 ([id number]) 48517 EST. PATIENT, LEVEL IV Diagnosis: Essential (primary) hypertension[ICD10: I10] Diagnosis: Pain in left leg[ICD10: M79.605] Diagnosis: Pain in left foot[ICD10: M79.672] Diagnosis: Atrophy of thyroid (acquired)[ICD10: E03.4] Meghana Maya MD, [facility] CPT-4: 74539 04/06/2016 ([id number]) 73608 EST. PATIENT, LEVEL III Diagnosis: Essential (primary) hypertension[ICD10: I10] Diagnosis: Localized edema[ICD10: R60.0] Catie Maya MD, [facility] CPT-4: 29906 03/18/2016 ([id number]) 60179 EST. PATIENT, LEVEL III Diagnosis: Essential (primary) hypertension[ICD10: I10] Diagnosis: Pain in left foot[ICD10: M79.672] Catie Maya MD, [facility] CPT-4: 93486 03/11/2016 ([id number]) 33134 EST. PATIENT, LEVEL III Diagnosis: Localized edema[ICD10: R60.0] Diagnosis: Essential (primary) hypertension[ICD10: I10] Catie Maya MD, [facility] CPT-4: 80796 02/24/2016 ([id number]) 63381 EST. PATIENT, LEVEL IV Diagnosis: Hypothyroidism, unspecified[ICD10: E03.9] Diagnosis: Essential (primary) hypertension[ICD10: I10] Meghana Maya MD, [facility] CPT-4: 75390 12/16/2015 ([id number]) 31986 EST. PATIENT, LEVEL III Diagnosis: Essential (primary) hypertension[ICD10: I10] Diagnosis: Hypothyroidism, unspecified[ICD10: E03.9] Meghana Maya MD, [facility] CPT-4: 90351 10/30/2015 ([id number]) 86920 EST. PATIENT, LEVEL IV Diagnosis: Diarrhea, unspecified[ICD10: R19.7] Diagnosis: Essential (primary) hypertension[ICD10: I10] Meghana Maya MD, [facility] CPT-4: 95533 09/23/2015 ([id number]) 50588 EST. PATIENT, LEVEL III Diagnosis: Essential (primary) hypertension[ICD10: I10] Diagnosis: Diarrhea, unspecified[ICD10: R19.7] Meghana Maya MD, [facility] CPT-4: 20610 09/10/2015 ([id number]) 21187 EST. PATIENT, LEVEL III Diagnosis: Acute maxillary sinusitis, unspecified[ICD10: J01.00] Diagnosis: Myositis, unspecified[ICD10: M60.9] Meghana Maya MD, [facility] CPT-4: 59566 08/12/2015 ([id number]) 21725 EST. PATIENT, LEVEL IV Diagnosis: Essential (primary) hypertension[ICD10: I10] Diagnosis: Pain in left leg[ICD10: M79.605] Diagnosis: Other myositis, multiple sites[ICD10: M60.89] Diagnosis: Hypothyroidism, unspecified[ICD10: E03.9] [facility] CPT-4: 72416 08/04/2015 19133 EST. PATIENT, LEVEL III Diagnosis: Dyspnea, unspecified[ICD10: R06.00] Diagnosis: Essential (primary) hypertension[ICD10: I10] [facility] CPT-4: 11395 05/16/2015 ([id number]) 93133 EST. PATIENT, LEVEL II Diagnosis: Dyspnea, unspecified[ICD10: R06.00] Meghana Maya MD, [facility] CPT-4: 83236 05/12/2015 ([id number]) OFFICE VISIT, NEW - LEVEL 4 Diagnosis: Essential (primary) hypertension[ICD10: I10] Diagnosis: Impaired fasting glucose[ICD10: R73.01] Diagnosis: Mixed hyperlipidemia[ICD10: E78.2] Diagnosis: Hypothyroidism, unspecified[ICD10: E03.9] Diagnosis: Encounter for screening mammogram for malignant neoplasm of breast[ ICD10: Z12.31] Catie Maya MD, [facility] CPT-4: 31347 04/21/2015 Plan of Care Planned Activity Notes [...] the current treatment plan 05/04/2018 [phone] [facility] (15 min) Moderate 05/04/2018 Patient Education: [...] plan 01/10/2018 Appointment: Brit[facility] [phone] [facility] [email or web address] (30 min) Complex 01/10/2018 Patient Education: Patient [...] control. 12/06/2017 Appointment: Brit[facility]el[facility] [phone] [facility] [place] (15 min) Moderate 12/06/2017 Patient Education: Patient Medication Summary Completed 12/06/2017 Visit Plan: URI - Pt advised to increase fluids, vitamin C. Discussed natural and expected course of this diagnosis and need to alert me if symptoms do not follow expected course, or if any worse. RX sent to patient' s pharmacy. 06/22/2017 Appointment: Brit[facility]el[facility] [phone] [facility] (15 min) Moderate 06/22/2017 Patient Education: Patient [...] spray. 03/02/2017 Appointment: Brit[facility]el[facility] [phone] [facility] (10 min) Simple 03/02/2017 Patient Education: Patient Medication Summary Completed 03/02/2017 Patient Education: Obesity Completed 03/02/2017 Visit Plan: Sinusitis - Pt has acute infection - pain in face, maxillary region, Pt informed to use decongestant, RX given to patient, sinus rinses also recommended. Call if symptoms do not show improvement. 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 Maya - will increase clonidine to BID - pt is to consider referral to dermatology - notify clinic if symptoms do not improve, if they worsen, or with any other questions or concerns. 01/24/2017 Appointment: Britney Bower WPtel: [phone] [facility] (30 min) Complex 01/24/2017 Patient Education: Patient [...] show improvement. 10/13/2016 Appointment: Britney Bower WPtel: [phone] [facility] (30 min) Complex 10/13/2016 Patient Education: Patient [...] in blood pressure readings at home. 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 07/02/2016 Appointment: Brit[facility]ower [facility]el[facility] [phone] [facility] (30 min) Complex 07/02/2016 Patient Education: [...] control. 06/24/2016 Appointment: Brit[facility]el[facility] [phone] [facility] (30 min) Complex 06/24/2016 Patient Education: Patient Medication Summary Completed 06/24/2016 Patient Education: Obesity Completed 06/24/2016 Patient Education: Hypertension Completed 06/24/2016 Patient Education: Patient Medication Summary Completed 05/14/2016 Care Plan: SCREENINGMAMMOGRAPHYDIGITAL LOINC : 41920-5 Pending 05/14/2016 Visit Plan: Hypertension - well [...] is painful. 05/04/2016 Appointment: Meghana Maya WPtel: [address] [place], [place] [phone] (15 min) Moderate 05/04/2016 Patient Education: Patient [...] current medication. 04/06/2016 Appointment: Meghana Maya WPtel: [address] [place], [place] [phone] (15 min) Moderate 04/06/2016 Patient Education: Patient Medication Summary Completed 04/06/2016 Patient Education: Obesity Completed 04/06/2016 Care Plan: Referral Order SNOMED-CT : [id number] Pending 04/06/2016 Visit Plan: Edema-improved with lower [...] acute concerns. 03/18/2016 Appointment: Catie Shoemaker WPtel: [phone] (15 min) Moderate 03/18/2016 Patient Education: Patient [...] xray left foot-recommend she follow up with marine equipment sales engineer at regarding left foot pain/numbness/weakness. Patient has noticed worsening symptoms since decreasing prednisone. 03/11/2016 Appointment: Catie Shoemaker WPtel: [phone] [phone] (15 min) Moderate 03/11/2016 Patient Education: Patient Medication Summary Completed 03/11/2016 Patient Education: Obesity Completed 03/11/2016 Appointment: Catie Shoemaker WPtel: [phone] [place] (30 min) Complex 03/09/2016 Visit Plan: [...] daily 02/24/2016 Appointment: Catie Shoemaker WPtel: [phone] [phone] (15 min) Moderate 02/24/2016 Patient Education: Patient Medication Summary Completed 02/24/2016 Patient Education: Obesity Completed 02/24/2016 Patient Education: Hypertension Completed 02/24/2016 Appointment: Meghana Maya WPtel: [phone] [facility] (15 min) Moderate 02/23/2016 Visit Plan: Hypertension [...] of control. 12/16/2015 Appointment: Meghana Maya WPtel: [phone] [facility] (15 min) Moderate 12/16/2015 Patient Education: [...] Complex 10/23/2015 Appointment: Meghana Maya WPtel: [phone] [facility] (15 min) Moderate 10/23/2015 Visit Plan: Hypertension [...] home. 09/10/2015 Appointment: Meghana Maya WPtel: [phone] [facility] (15 min) Moderate 09/10/2015 Patient Education: Patient [...] min) Complex 07/24/2015 Appointment: Meghana Maya WPtel: [facility] (15 min) Moderate 07/24/2015 Appointment: Lab Draw [...] Completed 04/21/2015 Care Plan: SCREENINGMAMMOGRAPHYDIGITAL INC : 57600-3 Ordered 04/21/2015 Appointment: [facility]el[facility] [phone] [facility] [place] (S[facility] New Patient 04/01/2015 Referral: Sharon [...] VQ scan negative DR. CROUCH IS THE DIRECTOR [employer]POR[employer] SALES WHO SPECIALIZES IN FOOT AND ANKLE DISEASE AT [address] INCREASE THE METOPROLOL TO 1.5 PILLS [...] - finish flagyl - start probiotic tid. Plan: ([id number]) SCREENINGMAMMOGRAPHYDIGITAL . Hypertension - well [...] medications. Elevated blood sugar-check Hgb A1C . Hypertension - well controlled - continue [...] blood pressure readings at home. 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 . Shortness of breath, fatigue - VQ [...] IN TWO WEEKS. APPOINTMENT WITH RHEUMATOLGIST AT [facility] LEFT FOOT . Hypertension - well controlled [...] xray left foot-recommend she follow up with marine equipment sales engineer at regarding left foot pain/numbness/weakness. Patient has [...] in blood pressure readings at home. 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 Hypothyroidism - pt with chronic hypothyroidism, [...]
--- OUTSIDE RECORDS SUMMARY | 2018-09-30 13:47 | XMS REPORT | CCD ---
Author Author Catie Shoemaker MD, [facility] Address [address] [place] [address] Phone Care Team Providers Care Conduit Helper Name Role Phone PP Unavailable CCM Unavailable Summary Purpose Interface Exchange Insurance Providers Payer name Policy type / Coverage type Covered green party ID Effective Begin Date Effective End Date [facility] [id number] Unknown Family history Mother Diagnosis Age At Onset Hypertension Unknown Breast cancer Unknown Osteoporosis Unknown Father Diagnosis Age At Onset kidney disease Unknown Cancer Unknown Hyperlipidemia Unknown Social History Social History Element Codes Description Effective Dates Marital status Unknown 04/21/2015 Number of children Unknown 1 04/21/2015 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/[address]: 702043363 Never smoker 04/21/2015 Alcohol history Unknown occasionally drinks alcohol 04/21/2015 Allergies, Adverse Reactions, Alerts Substance Reaction Codes Entered Date Inactivated Date Status [id number]-HAK REDUCTASE INHIBITORS myalgias Unknown 2015 No Inactive [...] Fill Instructions losartan 25 mg tablet RxNorm: 143802 TAKE ONE TABLET BY MOUTH DAILY 04/17/2018 07/15/2018 Active losartan 25 mg tablet RxNorm: 920359 TAKE ONE TABLET BY MOUTH DAILY 04/17/2018 04/16/2018 Inactive Lipitor 20 mg tablet RxNorm: 264383 1 Tablet(s) PO daily 201705/11/2018 Active Lipitor 20 mg tablet RxNorm: 908667 1 Tablet(s) PO daily 201701/11/2018 Inactive clonidine HCl 0.1 mg tablet RxNorm: 906051 TAKE ONE TABLET BY MOUTH TWICE A DAY 01/04/2018 07/02/2018 Active potassium chloride ER 10 mEq tablet,extended release RxNorm: 297086 TAKE ONE TABLET BY MOUTH DAILY 01/04/20182018 Active losartan 25 mg tablet RxNorm: 826704 TAKE ONE TABLET BY MOUTH DAILY 01/03/2018 04/02/2018 Inactive levothyroxine 50 mcg tablet RxNorm: 041129 1 Tablet(s) PO daily 12/08/2017 12/02/2018 Active venlafaxine ER 150 mg capsule,extended release 24 hr RxNorm: 818792 TAKE ONE CAPSULE BY MOUTH DAILY 12/06/20172017 Inactive losartan 25 mg tablet RxNorm: 992822 1 Tablet(s) PO daily 201701/02/2018 Inactive metoprolol succinate ER 50 mg tablet,extended release 24 hr RxNorm: 908445 TAKE ONE TABLET BY MOUTH DAILY 08/29/201701/25 Inactive metoprolol succinate ER 50 mg tablet,extended release 24 hr RxNorm: 346229 TAKE ONE TABLET BY MOUTH DAILY 08/29/201708/28 Inactive metoprolol succinate ER 50 mg tablet,extended release 24 hr RxNorm: 490606 TAKE ONE TABLET BY MOUTH DAILY 08/29/201708/28 Inactive Tamiflu 75 mg capsule RxNorm: 849165 1 Capsule(s) PO BID 201606/26/2017 Inactive Kenalog 40 mg/mL suspension for injection RxNorm: 5794492 1.5 Milliliter(s) Inj 06/22/2017 06/22/2017 Inactive clonidine HCl 0.1 mg tablet RxNorm: 039460 TAKE ONE TABLET BY MOUTH TWICE A DAY 06/06/2017 12/02/2017 Inactive potassium chloride ER 10 mEq tablet,extended release RxNorm: 779966 TAKE ONE TABLET BY MOUTH DAILY 06/06/20172017 Inactive venlafaxine ER 150 mg capsule,extended release 24 hr RxNorm: 820763 TAKE ONE CAPSULE BY MOUTH DAILY 05/23/20172017 Inactive Zithromax 500 mg tablet RxNorm: 052201 1 Tablet(s) PO daily 05/22/2017 Inactive potassium chloride ER 10 mEq tablet,extended release RxNorm: 497806 TAKE ONE TABLET BY MOUTH DAILY 04/21/20172016 Inactive potassium chloride ER 10 mEq tablet,extended release RxNorm: 109165 TAKE ONE TABLET BY MOUTH DAILY 03/16/20172016 Inactive Zithromax Z-Jacek 250 mg tablet RxNorm: 758943 1 Tablet(s) PO UD 03/02/2017 06/21/2017 Inactive venlafaxine ER 150 mg capsule,extended release 24 hr RxNorm: 142969 TAKE ONE CAPSULE BY MOUTH DAILY 02/17/20172017 Inactive venlafaxine ER 150 mg capsule,extended release 24 hr RxNorm: 235987 Capsule(s) TAKE ONE CAPSULE BY MOUTH DAILY 02/17/2017 02/16/2017 Inactive clonidine HCl 0.1 mg tablet RxNorm: 031482 TAKE ONE TABLET BY MOUTH EVERY NIGHT AT BEDTIME 02/14/2017 01/03/2018 Inactive metoprolol succinate ER 50 mg tablet,extended release 24 hr RxNorm: 981394 TAKE ONE TABLET BY MOUTH DAILY 02/14/201708/12 Inactive Protonix 40 mg tablet,delayed release RxNorm: 514313 TAKE ONE TABLET BY MOUTH DAILY WHILE ON PREDNISONE 01/25/201706/23 Inactive Zithromax Z-Jacek 250 mg tablet RxNorm: 236973 1 Tablet(s) PO UD 01/24/2017 01/03/2018 Inactive potassium chloride ER 10 mEq tablet,extended release RxNorm: 895004 TAKE ONE TABLET BY MOUTH DAILY 01/17/20172016 Inactive clonidine HCl 0.1 mg tablet RxNorm: 625982 TAKE ONE TABLET BY MOUTH EVERY NIGHT AT BEDTIME 01/17/2017 02/13/2017 Inactive potassium chloride ER 10 mEq tablet,extended release RxNorm: 931849 TAKE ONE TABLET BY MOUTH DAILY 12/16/20162016 Inactive venlafaxine ER 150 mg capsule,extended release 24 hr RxNorm: 962994 TAKE ONE CAPSULE BY MOUTH DAILY 11/18/20162016 Inactive clonidine HCl 0.1 mg tablet RxNorm: 426577 TAKE ONE TABLET BY MOUTH EVERY NIGHT AT BEDTIME 11/08/2016 01/06/2017 Inactive clonidine HCl 0.1 mg tablet RxNorm: 022754 1 Tablet(s) BID 01/16/2017 Inactive potassium chloride ER 10 mEq tablet,extended release RxNorm: 520971 TAKE ONE TABLET BY MOUTH DAILY 10/15/20162016 Inactive Zithromax Z-Jacek 250 mg tablet RxNorm: 100544 1 Tablet(s) PO UD 10/13/2016 01/03/2018 Inactive potassium chloride ER 10 mEq tablet,extended release RxNorm: 159385 TAKE ONE TABLET BY MOUTH DAILY 10/12/20162016 Inactive potassium chloride ER 10 mEq tablet,extended release RxNorm: 736632 Tablet(s) BID TAKE ONE TABLET BY MOUTH TWICE DAILY 09/17/2016 10/11/2016 Inactive potassium chloride ER 10 mEq tablet,extended release RxNorm: 214098 TAKE ONE TABLET BY MOUTH DAILY 09/13/20162016 Inactive clonidine HCl 0.1 mg tablet RxNorm: 574298 Tablet(s) TAKE ONE TABLET BY MOUTH EVERY NIGHT AT BEDTIME 08/12/20162016 Inactive gabapentin 300 mg capsule RxNorm: 688657 1 Capsule(s) PO QHS No Stop Date Active venlafaxine ER 150 mg capsule,extended release 24 hr RxNorm: 738353 TAKE ONE CAPSULE BY MOUTH DAILY 08/09/20162016 Inactive metoprolol succinate ER 50 mg tablet,extended release 24 hr RxNorm: 481296 TAKE ONE TABLET BY MOUTH DAILY 07/29/201601/24 Inactive clonidine HCl 0.1 mg tablet RxNorm: 711088 TAKE ONE TABLET BY MOUTH EVERY NIGHT AT BEDTIME 07/21/2016 08/11/2016 Inactive potassium chloride ER 10 mEq tablet,extended release RxNorm: 738324 TAKE ONE TABLET BY MOUTH DAILY 07/14/20162016 Inactive Prescriber not associated with this practice or location capsaicin 0.1 % topical cream RxNorm: 807141 1 Application TOP TID as needed 07/02/2016 No Stop Date Active acyclovir 400 mg tablet RxNorm: 225685 2 Tablet(s) PO QID 07/0207/11/2016 Inactive cyclobenzaprine 5 mg tablet RxNorm: 741001 1-2 Tablet(s) PO TID as needed 07/02/2016 07/06/2016 Inactive Protonix 40 mg tablet,delayed release RxNorm: 922085 TAKE ONE TABLET BY MOUTH DAILY WHILE ON PREDNISONE 06/29/201612/25 Inactive clonidine HCl 0.1 mg tablet RxNorm: 702172 1 Tablet(s) PO QHS 06/25/2016 07/20/2016 Inactive calcium carbonate 500 mg calcium (1,250 mg) tablet RxNorm: 202301 TAKE ONE TABLET BY MOUTH DAILY WHILE ON PREDNISONE. MAY STOP TAKING WHEN PREDNISONE IS COMPLETE 06/01/2016 09/28/2016 Inactive Vitamin D3 1,000 unit tablet RxNorm: 927485 1 Tablet(s) PO daily . May stop taking once prednisone is complete. 04/26/2016 10/22/2016 Inactive metoprolol succinate ER 50 mg tablet,extended release 24 hr RxNorm: 561858 1.5 Tablet(s) PO daily 04/06/2016 06/23/2016 Inactive prednisone 10 mg tablet RxNorm: 263649 1 Tablet(s) PO daily 12/201506/21/2017 Inactive metoprolol succinate ER 50 mg tablet,extended release 24 hr RxNorm: 328785 1 Tablet(s) PO daily 03/18/2016 04/05/2016 Inactive amlodipine 10 mg tablet RxNorm: 325472 1/2 Tablet(s) PO daily 02/24/2016 06/21/2016 Inactive metoprolol succinate ER 25 mg tablet,extended release 24 hr RxNorm: 061623 1 Tablet(s) PO daily 02/24/2016 03/16/2016 Inactive calcium carbonate 500 mg calcium (1,250 mg) tablet RxNorm: 251708 TAKE ONE TABLET BY MOUTH DAILY WHILE ON PREDNISONE. MAY STOP TAKING WHEN PREDNISONE IS COMPLETE 02/16/2016 05/15/2016 Inactive Protonix 40 mg tablet,delayed release RxNorm: 797769 TAKE ONE TABLET BY MOUTH DAILY WHILE ON PREDNISONE 02/10/201605/09 Inactive venlafaxine ER 150 mg capsule,extended release 24 hr RxNorm: 454908 Capsule(s) TAKE ONE CAPSULE BY MOUTH DAILY 12/10/2015 04/07/2016 Inactive calcium carbonate 500 mg calcium (1,250 mg) tablet RxNorm: 182040 1 Tablet(s) PO daily 12/01/2015 01/29/2016 Inactive Vitamin D3 1,000 unit tablet RxNorm: 904331 1 Tablet(s) PO daily 12/01/2015 03/29/2016 Inactive levothyroxine 50 mcg tablet RxNorm: 565505 1 Tablet(s) PO daily 12/01/2015 11/24/2016 Inactive amlodipine 10 mg tablet RxNorm: 662294 1 Tablet(s) PO daily 11/18/2015 Inactive amlodipine 10 mg tablet RxNorm: 349291 1 Tablet(s) PO daily 02/23/2016 Inactive amlodipine 5 mg tablet RxNorm: 621443 1 Tablet(s) PO daily 11/18/2015 Inactive venlafaxine ER 150 mg capsule,extended release 24 hr RxNorm: 748920 TAKE ONE CAPSULE BY MOUTH DAILY 11/13/20152015 Inactive Protonix 40 mg tablet,delayed release RxNorm: 580479 1 Tablet(s) PO daily while on prednisone 2015 02/09/2016 Inactive prednisone 10 mg tablet RxNorm: 482222 2 Tablet(s) PO UD 201504/01/2016 Inactive 60mg for 2 days, then 50mg for 2 days, then 40mg for 2 days, then 30mg for 2 days, then 20mg for 2 days, then 10mg for 2 days, then 5mg for 2 days potassium chloride ER 10 mEq tablet,extended release RxNorm: 222307 TAKE ONE TABLET BY MOUTH DAILY 09/22/20152015 Inactive venlafaxine ER 150 mg capsule,extended release 24 hr RxNorm: 089497 TAKE ONE CAPSULE BY MOUTH DAILY 09/08/20152015 Inactive cefdinir 300 mg capsule RxNorm: 438113 1 Capsule(s) PO BID 08/22/2015 Inactive cefdinir 300 mg capsule RxNorm: 978277 1 Capsule(s) PO BID 08/18/2015 Inactive Kenalog 40 mg/mL suspension for injection RxNorm: 5716073 1 Milliliter(s) Inj 08/04/2015 08/04/2015 Inactive triamterene 37.5 mg-hydrochlorothiazide 25 mg tablet RxNorm: 567962 1 Tablet(s) PO BID 06/17/2015 08/03/2015 Inactive potassium chloride ER 10 mEq tablet,extended release RxNorm: 286950 1 Tablet(s) PO daily 05/30/2015 08/03/2015 Inactive Levaquin 250 mg tablet RxNorm: 389532 Tablet(s) PO UD 500 mg day one, then 250 mg day 2-7 05/27/2015 08/03/2015 Inactive prednisone 10 mg tablet RxNorm: 549309 Tablet(s) PO UD 201410/29/2015 Inactive 60mg for 2 days, then 50mg for 2 days, then 40mg for 2 days, then 30mg for 2 days, then 20mg for 2 days, then 10mg for 2 days, then 5mg for 2 days albuterol sulfate 1.25 mg/3 mL solution for nebulization RxNorm: 554697 3 Milliliter(s) INH Q4-6H as needed dyspnea 05/23/2015 No Stop Date Active Zithromax 500 mg tablet RxNorm: 724487 1 Tablet(s) PO daily 05/15/2015 Inactive Zithromax 500 mg tablet RxNorm: 645184 1 Tablet(s) PO daily 05/20/2015 Inactive prednisone 20 mg tablet RxNorm: 472909 3 Tablet(s) PO daily 05/16/2015 Inactive venlafaxine ER 150 mg capsule,extended release 24 hr RxNorm: 525214 TAKE ONE CAPSULE BY MOUTH DAILY 05/12/20152015 Inactive Keflex 500 mg capsule RxNorm: 677760 1 Capsule(s) PO TID 201405/18/2015 Inactive simvastatin 20 mg tablet RxNorm: 364784 1 Tablet(s) PO daily 04/09/2015 Inactive simvastatin 20 mg tablet RxNorm: 818861 1 Tablet(s) PO daily 08/11/2015 Inactive venlafaxine ER 150 mg capsule,extended release 24 hr RxNorm: 076927 TAKE ONE CAPSULE BY MOUTH DAILY 04/08/20152014 Inactive amlodipine 5 mg tablet RxNorm: 211842 1 Tablet(s) PO daily 04/201503/06/2015 Inactive amlodipine 5 mg tablet RxNorm: 353868 1 Tablet(s) PO daily 04/201507/04/2015 Inactive venlafaxine ER 150 mg capsule,extended release 24 hr RxNorm: 399109 1 Capsule(s) PO daily 01/29/2015 03/29/2015 Inactive metoprolol succinate ER 50 mg tablet,extended release 24 hr RxNorm: 794058 1 Tablet(s) PO daily No Start Date Active vitamin B complex oral RxNorm: 27332 oral No Start Date Active Co Q-10 oral RxNorm: 21857 oral No Start Date Active albuterol sulfate 1.25 mg/3 mL solution for nebulization RxNorm: 164893 3 Milliliter(s) INH Q4-6H as needed dyspnea No Start Date 05/22/2015 Inactive levothyroxine 50 mcg tablet RxNorm: 762552 1 Tablet(s) PO daily No Start Date 11/30/2015 Inactive gabapentin 300 mg capsule RxNorm: 548139 1 Capsule(s) PO QHS No Start Date 08/09/2016 Inactive Vitamin D3 1,000 unit tablet RxNorm: 318435 1 Tablet(s) PO daily No Start Date 11/30/2015 Inactive Protonix 40 mg tablet,delayed release RxNorm: 358335 1 Tablet(s) PO daily while on prednisone No Start Date 10/30/2015 Inactive calcium carbonate oral RxNorm: oral No Start Date 11/30/2015 Inactive potassium chloride ER 10 mEq tablet,extended release RxNorm: 319666 1 Tablet(s) PO daily No Start Date 05/29/2015 Inactive Levaquin 250 mg tablet RxNorm: 715410 Tablet(s) PO UD 500 mg day one, then 250 mg day 2-7 No Start Date 05/26/2015 Inactive triamterene 37.5 mg-hydrochlorothiazide 25 mg tablet RxNorm: 893720 1 Tablet(s) PO BID No Start Date 06/16/2015 Inactive prednisone 10 mg tablet RxNorm: 444635 Tablet(s) PO UD No Start Date 05/26/2015 Inactive 60mg for 2 days, then 50mg for 2 days, then 40mg for 2 days, then 30mg for 2 days, then 20mg for 2 days, then 10mg for 2 days, then 5mg for 2 days venlafaxine ER 150 mg capsule,extended release 24 hr RxNorm: 521419 1 Capsule(s) PO daily No Start Date 01/28/2015 Inactive Medication Administered Medication Codes Instructions Start Date Status Kenalog 40 mg/mL suspension for injection RxNorm: 4264506 1.5Milliliter 06/22/2017 No longer Active Kenalog 40 mg/mL suspension for injection RxNorm: 1240995 1Milliliter 08/04/2015 No longer Active Immunizations No [...] Item Item Code Result Date Comp Metabolic Khr259 NA 140 mEq/L 01/10/2018 Comp Metabolic Riw517 K 3.8 mEq/L 01/10/2018 Comp Metabolic Bhq460 CL 106 mEq/L 01/10/2018 Comp Metabolic Mwy538 CO2 25.0 mEq/L 01/10/2018 Comp Metabolic Yrq266 ANION GAP 13 01/10/2018 Comp Metabolic Nnd814 GLUCOSE 110 mg/dL 01/10/2018 Comp Metabolic Upl024 Creat 1.5 mg/dL 01/10/2018 Comp Metabolic Bsd430 eGFR 37 ml/min/1.73m2 01/10/2018 Comp Metabolic Cpw983 BUN 23 mg/dL 01/10/2018 Comp Metabolic Bcn480 B/C Ratio 15.3 Ratio 01/10/2018 Comp Metabolic Tsl280 CALCIUM 9.2 mg/dL 01/10/2018 Comp Metabolic Rlk560 ALK PHOS 87 U/L 01/10/2018 Comp Metabolic Ucy933 AST(SGOT) 15 U/L 01/10/2018 Comp Metabolic Nig569 ALT(SGPT) 9 U/L 01/10/2018 Comp Metabolic Lvw682 BILI T 0.4 mg/dL 01/10/2018 Comp Metabolic Hpd584 ALBUMIN 3.8 g/dL 01/10/2018 Comp Metabolic Lcu728 TPRO 6.2 g/dL 01/10/2018 Comp Metabolic Ggp379 GLOB 2.4 g/dL 01/10/2018 Comp Metabolic Bkb105 A/G Ratio 1.6 Ratio 01/10/2018 Comp Metabolic Lzv539 Osmo 284 mOsmo 01/10/2018 C-Reactive Protein Qnt [...] 27.6 pg 01/10/2018 Cbc With Differential Ord2 [place]% 15.2 % 01/10/2018 Cbc With Differential Ord2 [...] 1.47 K/ul 01/10/2018 Cbc With Differential Ord2 [place] ABS# 1.0 K/ul 01/10/2018 Cbc With Differential Ord2 Eos ABS# 0.1 K/ul 01/10/2018 Cbc With Differential Ord2 Baso ABS# 0.0 K/ul 01/10/2018 Sed Rate Ord21 ESR 12 mm/hr 01/10/2018 Free T4 Osy581 FREE T4 0.57 ng/dL 12/06/2017 Tsh Ord6 TSH (3rd IS) 7.40 uIU/mL 12/06/2017 C A/B FLU 2095830 Influenza A Scr Negative 06/22/2017 C A/B FLU 9574485 Influenza B Scr Negative 06/22/2017 C A/B FLU 6796354 Influenza Intrp B AG: PRID:PT:NOSE:NOM:IF See Footnote 06/22/2017 Comp Metabolic Tlk178 NA 140 mEq/L 08/30/2016 Comp Metabolic Ymm829 K 3.3 mEq/L 08/30/2016 Comp Metabolic Jus689 CL 104 mEq/L 08/30/2016 Comp Metabolic Lpw643 CO2 26.0 mEq/L 08/30/2016 Comp Metabolic Nua167 ANION GAP 13 08/30/2016 Comp Metabolic Ijr959 GLUCOSE 143 mg/dL 08/30/2016 Comp Metabolic Utx522 Creat 1.3 mg/dL 08/30/2016 Comp Metabolic Asw041 eGFR 43 ml/min/1.73m2 08/30/2016 Comp Metabolic Uwc260 BUN 19 mg/dL 08/30/2016 Comp Metabolic Kdt953 B/C Ratio 14.3 Ratio 08/30/2016 Comp Metabolic Ipb488 CALCIUM 10.0 mg/dL 08/30/2016 Comp Metabolic Wos651 ALK PHOS 67 U/L 08/30/2016 Comp Metabolic Iff244 AST(SGOT) 28 U/L 08/30/2016 Comp Metabolic Fml572 ALT(SGPT) 43 U/L 08/30/2016 Comp Metabolic Ekv770 BILI T 0.4 mg/dL 08/30/2016 Comp Metabolic Dpx108 ALBUMIN 4.0 g/dL 08/30/2016 Comp Metabolic Djt101 TPRO 6.2 g/dL 08/30/2016 Comp Metabolic Cim683 GLOB 2.2 g/dL 08/30/2016 Comp Metabolic Dck351 A/G Ratio 1.8 Ratio 08/30/2016 Comp Metabolic Shi934 Osmo 284 mOsmo 08/30/2016 %Hba1C Vpy957 % HbA1c 45255-6 6.1 % 08/30/2016 %Hba1C Byd997 Gluc Ave 128 mg/dL 08/30/2016 Free T4 Zec007 FREE T4 0.75 ng/dL 06/25/2016 Tsh Ord6 [...] Ord90 Mag 2.1 mg/dL 12/16/2015 Free T4 Ewq838 FREE T4 0.92 ng/dL 12/16/2015 Tsh Ord6 [...] 28.5 pg 08/04/2015 Cbc With Differential Ord2 [place]% 6.1 % 08/04/2015 Cbc With Differential Ord2 [...] 0.73 K/ul 08/04/2015 Cbc With Differential Ord2 [place] ABS# 0.5 K/ul 08/04/2015 Cbc With Differential Ord2 Eos ABS# 0.1 K/ul 08/04/2015 Cbc With Differential Ord2 Baso ABS# 0.0 K/ul 08/04/2015 Cbc With Differential Ord2 New Analyzer Notice Please note new ref ranges starting 07-09-2015 due to implemntation of new five part differential hematolgy analyzer. 08/04/2015 C-Reactive Protein Qnt Crqnt CRP 0.8 mg/dl 08/04/2015 Comp Metabolic Uzg639 NA 139 mEq/L 08/04/2015 Comp Metabolic Dqv407 K 3.4 mEq/L 08/04/2015 Comp Metabolic Lii973 CL 109 mEq/L 08/04/2015 Comp Metabolic Ksc529 CO2 22.0 mEq/L 08/04/2015 Comp Metabolic Ggh650 ANION GAP 11 08/04/2015 Comp Metabolic Pgd913 GLUCOSE 177 mg/dL 08/04/2015 Comp Metabolic Zis608 Creat 1.0 mg/dL 08/04/2015 Comp Metabolic Urv673 eGFR 64 ml/min/1.73m2 08/04/2015 Comp Metabolic Sey850 BUN 35 mg/dL 08/04/2015 Comp Metabolic Kuh704 B/C Ratio 36.8 Ratio 08/04/2015 Comp Metabolic Xtn072 CALCIUM 8.5 mg/dL 08/04/2015 Comp Metabolic Zma069 ALK PHOS 57 U/L 08/04/2015 Comp Metabolic Qac336 AST(SGOT) 21 U/L 08/04/2015 Comp Metabolic Ron357 ALT(SGPT) 63 U/L 08/04/2015 Comp Metabolic Mtz549 BILI T 0.3 mg/dL 08/04/2015 Comp Metabolic Jnf913 ALBUMIN 3.1 g/dL 08/04/2015 Comp Metabolic Pjk311 TPRO 5.1 g/dL 08/04/2015 Comp Metabolic Obo871 GLOB 2.0 g/dL 08/04/2015 Comp Metabolic Wgz939 A/G Ratio 1.6 Ratio 08/04/2015 Comp Metabolic Gnm118 Osmo 290 mOsmo 08/04/2015 Cpk Ord61 CPK 52 U/L 08/04/2015 Random Urine Protein/Creatinine Ratio Yoe3167 U Prot 8.5 mg/dl 05/27/2015 Random Urine Protein/Creatinine Ratio Csv2266 U CREAT 201.0 mg/dL 05/27/2015 Random Urine Protein/Creatinine Ratio Qhz2052 R MTP/Creat Ratio 0.04 05/27/2015 Urinalysis Ord28 [...] 05/27/2015 Urinalysis Ord28 U-Yeast NEGATIVE 05/27/2015 Renal Jay918 NA 136 mEq/L 05/26/2015 Renal Pvp754 K 3.3 mEq/L 05/26/2015 Renal Kuw301 CL 99 mEq/L 05/26/2015 Renal Ujf653 CO2 25.0 mEq/L 05/26/2015 Renal Tco465 ANION GAP 15 05/26/2015 Renal Nqw868 Osmo 274 mOsmo 05/26/2015 Renal Vun687 GLUCOSE 106 mg/dL 05/26/2015 Renal Ipg084 BUN 17 mg/dL 05/26/2015 Renal Pvb493 Creat 1.4 mg/dL 05/26/2015 Renal Nwp284 eGFR 40 ml/min/1.73m2 05/26/2015 Renal Ufd154 B/C Ratio 12.0 Ratio 05/26/2015 Renal Ijk081 CALCIUM 9.3 mg/dL 05/26/2015 Renal Nue408 PHOS 3.4 mg/dL 05/26/2015 Renal Jfq414 ALBUMIN 3.4 g/dL 05/26/2015 Cbc With Differential [...] Ord2 RDW 14.3 % 04/21/2015 Free T4 Nlz705 FREE T4 0.91 ng/dL 04/21/2015 %Hba1C Lfm624 % HbA1c 22588-4 5.8 % 04/21/2015 %Hba1C Ooy937 Gluc Ave 120 mg/dL 04/21/2015 Comp Metabolic Ctf399 NA 137 mEq/L 04/21/2015 Comp Metabolic Thb732 K 3.6 mEq/L 04/21/2015 Comp Metabolic Rmp584 CL 98 mEq/L 04/21/2015 Comp Metabolic Xwv574 CO2 25.0 mEq/L 04/21/2015 Comp Metabolic Lnb172 ANION GAP 18 04/21/2015 Comp Metabolic Pnd530 GLUCOSE 83 mg/dL 04/21/2015 Comp Metabolic Bok922 Creat 1.6 mg/dL 04/21/2015 Comp Metabolic Aul863 eGFR 36 ml/min/1.73m2 04/21/2015 Comp Metabolic Ysb619 BUN 28 mg/dL 04/21/2015 Comp Metabolic Iab310 B/C Ratio 17.9 Ratio 04/21/2015 Comp Metabolic Wdr761 CALCIUM 9.5 mg/dL 04/21/2015 Comp Metabolic Ihi945 ALK PHOS 60 U/L 04/21/2015 Comp Metabolic Cct951 AST(SGOT) 22 U/L 04/21/2015 Comp Metabolic Wfi731 ALT(SGPT) 10 U/L 04/21/2015 Comp Metabolic Gux767 BILI T 0.4 mg/dL 04/21/2015 Comp Metabolic Ikj874 ALBUMIN 4.0 g/dL 04/21/2015 Comp Metabolic Ibu243 TPRO 6.8 g/dL 04/21/2015 Comp Metabolic Fnh311 GLOB 2.8 g/dL 04/21/2015 Comp Metabolic Naa272 A/G Ratio 1.4 Ratio 04/21/2015 Comp Metabolic Gic477 Osmo 278 mOsmo 04/21/2015 Tsh Ord6 hTSH [...] Procedure Codes Date THER/PROPH/DIAG INJ SC/IM CPT-4: 02141 06/22/2017 TRIAMCINOLONE ACET INJ NOS CPT-4: J3301 06/22/2017 THER/PROPH/DIAG INJ SC/IM CPT-4: 95906 08/04/2015 TRIAMCINOLONE ACET INJ NOS CPT-4: J3301 08/04/2015 Vital Signs Date Vital 05/04/2018 Blood Pressure 1: 158/88 Code : 8480-6 BMI: 33.3 Code : 69694-3 Heart Rate 1 : 63 bpm Height: 5'1" SpO2: 98% Weight: 176 lbs 01/10/2018 Blood Pressure 1: 138/88 Code : 8480-6 BMI: 31.9 Code : 97709-2 Heart Rate 1 : 78 bpm Height: 5'1" SpO2: 99% Weight: 169 lbs 12/06/2017 Blood Pressure 1: 158/98 Code : 8480-6 BMI: 32.3 Code : 30801-5 Heart Rate 1 : 60 bpm Height: 5'1" SpO2: 100% Weight: 171 lbs 06/22/2017 Blood Pressure 1: 168/92 Code : 8480-6 BMI: 32.6 Code : 01184-4 Heart Rate 1 : 133 bpm Height: 5'1" SpO2: 97% Temperature: 37.6 (C) / 99.7 (F) Weight: 172 lbs 8 oz 03/02/2017 Blood Pressure 1: 168/90 Code : 8480-6 BMI: 35.0 Code : 23682-2 Heart Rate 1 : 80 bpm Height: 5'1" SpO2: 94% Weight: 185 lbs 01/24/2017 Blood Pressure 1: 130/68 Code : 8480-6 BMI: 35.3 Code : 23273-2 Heart Rate 1 : 66 bpm Height: 5'1" SpO2: 98% Weight: 187 lbs 10/13/2016 Blood Pressure 1: 136/74 Code : 8480-6 BMI: 35.1 Code : 18066-1 Heart Rate 1 : 71 bpm Height: 5'1" SpO2: 97% Weight: 186 lbs 08/30/2016 Blood Pressure 1: 128/80 Code : 8480-6 BMI: 35.0 Code : 28029-6 Heart Rate 1 : 75 bpm Height: 5'1" SpO2: 96% Weight: 185 lbs 8 oz 07/02/2016 Blood Pressure 1: 140/78 Code : 8480-6 Heart Rate 1: 63 bpm Height: 5'1" SpO2: 98% 06/24/2016 Blood Pressure 1: 148/100 Code: 8480-6 BMI: 34.2 Code: 32310-7 Heart Rate 1: 110 bpm Height : 5'1" SpO2: 94% Weight: 181 lbs 05/04/2016 Blood Pressure 1: 150/90 Code : 8480-6 Blood Pressure 1: 134/82 Code: 8480-6 BMI: 34.6 Code: 91305-2 Heart Rate 1: 74 bpm Height: 5'1" SpO2: 98% Weight: 183 lbs 04/06/2016 Blood Pressure 1: 156/92 Code : 8480-6 Blood Pressure 1: 158/88 Code: 8480-6 BMI: 34.8 Code: 81124-5 Heart Rate 1: 69 bpm Height: 5'1" SpO2: 97% Weight: 184 lbs 03/18/2016 Blood Pressure 1: 148/90 Code : 8480-6 BMI: 35.1 Code : 93969-4 Heart Rate 1 : 106 bpm Height: 5'1" SpO2: 94% Weight: 186 lbs 03/11/2016 Blood Pressure 1: 140/90 Code : 8480-6 BMI: 35.1 Code : 41078-7 Heart Rate 1 : 103 bpm Height: 5'1" SpO2: 96% Weight: 186 lbs 02/24/2016 Blood Pressure 1: 130/80 Code : 8480-6 BMI: 34.4 Code : 56337-8 Heart Rate 1 : 110 bpm Height: 5'1" SpO2: 96% Weight: 182 lbs 12/16/2015 Blood Pressure 1: 144/98 Code : 8480-6 BMI: 33.8 Code : 78775-8 Heart Rate 1 : 97 bpm Height: 5'1" SpO2: 98% Weight: 179 lbs 10/30/2015 Blood Pressure 1: 138/88 Code : 8480-6 BMI: 33.6 Code : 45530-5 Heart Rate 1 : 88 bpm Height: 5'1" SpO2: 98% Weight: 178 lbs 09/23/2015 Blood Pressure 1: 152/94 Code : 8480-6 BMI: 32.7 Code : 97564-8 Heart Rate 1 : 83 bpm Height: 5'1" SpO2: 97% Weight: 173 lbs 09/10/2015 Blood Pressure 1: 136/82 Code : 8480-6 BMI: 32.1 Code : 88411-5 Heart Rate 1 : 105 bpm Height: 5'1" SpO2: 97% Weight: 170 lbs 08/12/2015 Blood Pressure 1: 132/70 Code : 8480-6 BMI: 31.2 Code : 75536-2 Heart Rate 1 : 88 bpm Height: 5'1" SpO2: 95% Temperature: 36.7 (C) / 98.0 (F) Weight: 165 lbs 08/04/2015 Blood Pressure 1: 136/80 Code : 8480-6 BMI: 31.0 Code : 35956-2 Heart Rate 1 : 110 bpm Height: 5'1" SpO2: 98% Weight: 164 lbs 05/16/2015 Blood Pressure 1: 138/88 Code : 8480-6 BMI: 32.9 Code : 84423-3 Heart Rate 1 : 87 bpm Height: 5'1" SpO2: 90% Weight: 174 lbs 05/12/2015 BMI: 31.7 Code: 87596-1 Height: 5'1" Weight: 168 lbs 04/21/2015 Blood Pressure 1: 124/82 Code : 8480-6 BMI: 32.1 Code : 49177-1 Heart Rate 1 : 87 bpm Height: [...] Diagnosis: Mixed hyperlipidemia[ICD10: E78.2] Britney Maya MD, [facility] CPT-4: 93055 05/04/2018 [id number] EST. PATIENT, LEVEL IV Diagnosis: Essential (primary) hypertension[ICD10: I10] Diagnosis: Interstitial pulmonary disease, unspecified[ICD10: J84.9] Diagnosis: Chronic kidney disease, stage 3 (moderate)[ICD10: N18.3] Diagnosis: Mixed hyperlipidemia[ICD10: E78.2] Britney Maya MD, [facility] CPT-4: 94772 01/10/2018 [id number] EST. PATIENT, LEVEL IV Diagnosis: Other specified hypothyroidism[ICD10: E03.8] Diagnosis: Essential (primary) hypertension[ICD10: I10] Britney Maya MD, [facility] CPT-4: 01275 12/06/2017 91497 EST. PATIENT, LEVEL IV Diagnosis: Other malaise[ICD10: R53.81] Diagnosis: Other fatigue[ICD10: R53.83] Britney Maya MD, [facility] CPT-4 : 26806 06/22/2017 83262 EST. PATIENT, LEVEL IV Diagnosis: Acute laryngopharyngitis[ICD10: J06.0] Diagnosis: Other acute sinusitis[ICD10: J01.80] Diagnosis: Other allergic rhinitis[ICD10: J30.89] Britney Maya MD, [facility] CPT-4: 95778 03/02/2017 71409 EST. PATIENT, LEVEL IV Diagnosis: Generalized hyperhidrosis[ICD10: R61] Diagnosis: Other acute sinusitis[ICD10: J01.80] Diagnosis: Other fatigue[ICD10: R53.83] Diagnosis: Interstitial pulmonary disease, unspecified[ICD10: J84.9] Britney Maya MD, [facility] CPT-4: 11116 01/24/2017 17177 EST. PATIENT, LEVEL IV Diagnosis: Acute laryngopharyngitis[ICD10: J06.0] Diagnosis: Other acute sinusitis[ICD10: J01.80] Britney Maya MD, [facility] CPT-4: 59228 10/13/2016 ([id number]) 58503 EST. 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 PATIENT, LEVEL IV Diagnosis: Pain in thoracic spine[ICD10: M54.6] Diagnosis: Pain in left shoulder[ICD10: M25.512] Diagnosis: Zoster without complications[ICD10: B02.9] Britney Maya MD, [facility] CPT-4: 77250 07/02/2016 54999 EST. PATIENT, LEVEL III Diagnosis: Other specified hypothyroidism[ICD10: E03.8] Diagnosis: Menopausal and female climacteric states[ICD10: N95.1] Diagnosis: Essential (primary) hypertension[ICD10: I10] Britney Maya MD, [facility] CPT-4: 17902 06/24/2016 ([id number]) 34631 EST. PATIENT, LEVEL IV Diagnosis: Essential (primary) hypertension[ICD10: I10] Diagnosis: Atrophy of thyroid (acquired)[ICD10: E03.4] Diagnosis: Pain in left foot[ICD10: M79.672] Meghana Maya MD, [facility] CPT-4: 48952 05/04/2016 ([id number]) 34837 EST. PATIENT, LEVEL IV Diagnosis: Essential (primary) hypertension[ICD10: I10] Diagnosis: Pain in left leg[ICD10: M79.605] Diagnosis: Pain in left foot[ICD10: M79.672] Diagnosis: Atrophy of thyroid (acquired)[ICD10: E03.4] Meghana Maya MD, [facility] CPT-4: 59856 04/06/2016 ([id number]) 83657 EST. PATIENT, LEVEL III Diagnosis: Essential (primary) hypertension[ICD10: I10] Diagnosis: Localized edema[ICD10: R60.0] Catie Maya MD, [facility] CPT-4: 12117 03/18/2016 ([id number]) 10494 EST. PATIENT, LEVEL III Diagnosis: Essential (primary) hypertension[ICD10: I10] Diagnosis: Pain in left foot[ICD10: M79.672] Catie Maya MD, [facility] CPT-4: 59331 03/11/2016 ([id number]) 24818 EST. PATIENT, LEVEL III Diagnosis: Localized edema[ICD10: R60.0] Diagnosis: Essential (primary) hypertension[ICD10: I10] Catie Maya MD, [facility] CPT-4: 23015 02/24/2016 ([id number]) 21472 EST. PATIENT, LEVEL IV Diagnosis: Hypothyroidism, unspecified[ICD10: E03.9] Diagnosis: Essential (primary) hypertension[ICD10: I10] Meghana Maya MD, [facility] CPT-4: 54609 12/16/2015 ([id number]) 89792 EST. PATIENT, LEVEL III Diagnosis: Essential (primary) hypertension[ICD10: I10] Diagnosis: Hypothyroidism, unspecified[ICD10: E03.9] Meghana Maya MD, [facility] CPT-4: 57086 10/30/2015 ([id number]) 31028 EST. PATIENT, LEVEL IV Diagnosis: Diarrhea, unspecified[ICD10: R19.7] Diagnosis: Essential (primary) hypertension[ICD10: I10] Meghana Maya MD, [facility] CPT-4: 92848 09/23/2015 ([id number]) 32706 EST. PATIENT, LEVEL III Diagnosis: Essential (primary) hypertension[ICD10: I10] Diagnosis: Diarrhea, unspecified[ICD10: R19.7] Meghana Maya MD, [facility] CPT-4: 62418 09/10/2015 ([id number]) 40220 EST. PATIENT, LEVEL III Diagnosis: Acute maxillary sinusitis, unspecified[ICD10: J01.00] Diagnosis: Myositis, unspecified[ICD10: M60.9] Meghana Maya MD, [facility] CPT-4: 09511 08/12/2015 ([id number]) 55825 EST. PATIENT, LEVEL IV Diagnosis: Essential (primary) hypertension[ICD10: I10] Diagnosis: Pain in left leg[ICD10: M79.605] Diagnosis: Other myositis, multiple sites[ICD10: M60.89] Diagnosis: Hypothyroidism, unspecified[ICD10: E03.9] Meghana Maya MD, [facility] CPT-4: 31261 08/04/2015 22899 EST. PATIENT, LEVEL III Diagnosis: Dyspnea, unspecified[ICD10: R06.00] Diagnosis: Essential (primary) hypertension[ICD10: I10] [facility] CPT-4: 67338 05/16/2015 ([id number]) 15673 EST. PATIENT, LEVEL II Diagnosis: Dyspnea, unspecified[ICD10: R06.00] Meghana Maya MD, [facility] CPT-4: 05087 05/12/2015 ([id number]) OFFICE VISIT, NEW - LEVEL 4 Diagnosis: Essential (primary) hypertension[ICD10: I10] Diagnosis: Impaired fasting glucose[ICD10: R73.01] Diagnosis: Mixed hyperlipidemia[ICD10: E78.2] Diagnosis: Hypothyroidism, unspecified[ICD10: E03.9] Diagnosis: Encounter for screening mammogram for malignant neoplasm of breast[ ICD10: Z12.31] Catie Maya MD, [facility] CPT-4: 31906 04/21/2015 Plan of Care Planned Activity Notes [...] plan 05/04/2018 [phone] ([facility] min) Moderate 05/04/2018 Patient Education: Patient [...] plan 01/10/2018 Appointment[phone] (30 min) Complex 01/10/2018 Patient Education: Patient [...] control. 12/06/2017 Appointment: Britney Bower WPtel: [phone] [facility] [place] (15 min) Moderate 12/06/2017 Patient Education: Patient Medication Summary Completed 12/06/2017 Visit Plan: URI - Pt advised to increase fluids, vitamin C. Discussed natural and expected course of this diagnosis and need to alert me if symptoms do not follow expected course, or if any worse. RX sent to patient' s pharmacy. 06/22/2017 Appointment: Britney Bower WPtel: [phone] [phone] (15 min) Moderate 06/22/2017 Patient Education: Patient [...] spray. 03/02/2017 Appointment: Britney Bower WPtel: [phone] [facility] (10 min) Simple 03/02/2017 Patient Education: Patient Medication Summary Completed 03/02/2017 Patient Education: Obesity Completed 03/02/2017 Visit Plan: Sinusitis - Pt has acute infection - pain in face, maxillary region, Pt informed to use decongestant, RX given to patient, sinus rinses also recommended. Call if symptoms do not show improvement. Interstitial pulmonary disease, fatigue - will complete paperwork for pt to come meat pickler - pt is to continue with her specialist at [facility] - Discussed with Dr. Maya - will increase clonidine to BID - pt is to consider referral to dermatology - notify clinic if symptoms do not improve, if they worsen, or with any other questions or concerns. 01/24/2017 Appointment: Britney Bower WPtel: [address] [place], [place] [phone] (30 min) Complex 01/24/2017 Patient Education: Patient [...] show improvement. 10/13/2016 Appointment: Britney Bower WPtel: [facility] [place][note 2]4 [facility] (30 min) Complex 10/13/2016 Patient Education: Patient [...] in blood pressure readings at home. Sweats/terminal carman use of steroids-check Hgb A1C Peripheral neuropathy-improved with B12- seeing Dr Duran for tarsel tunnel syndrome 08/30/2016 Appointment: Catie Shoemaker WPtel: [facility] [place][note 2]5 [phone] [place] (15 min) Moderate 08/30/2016 Patient Education: Patient Medication Summary Completed 08/30/2016 Patient Education: Obesity Completed 08/30/2016 Care Plan: %Hba1C LOINC : 58627-4 Ordered 08/30/2016 Care Plan: Comp Metabolic Ordered [...] contagious. 07/02/2016 App[facility]ment[phone] ([facility] min) Complex 07/02/2016 Patient Education: Patient [...] control. 06/24/2016 App[facility]ment: [phone] (30 min) Complex 06/24/2016 Patient Education: Patient Medication Summary Completed 06/24/2016 Patient Education: Obesity Completed 06/24/2016 Patient Education: Hypertension Completed 06/24/2016 Patient Education: Patient Medication Summary Completed 05/14/2016 Care Plan: SCREENINGMAMMOGRAPHYDIGITAL [facility] : 59295-6 Pending 05/14/2016 Visit Plan: Hypertension - well [...] is painful. 05/04/2016 Appointment: Meghana Maya WPtel: [facility] [place][note 2]5 [facility] (15 min) Moderate 05/04/2016 Patient Education: Patient [...] current medication. 04/06/2016 Appointment: Meghana Maya WPtel: [facility] [place][note 2]2 [facility] (15 min) Moderate 04/06/2016 Patient Education: Patient Medication Summary Completed 04/06/2016 Patient Education: Obesity Completed 04/06/2016 Care Plan: Referral Order SNOMED-CT : [id number] Pending 04/06/2016 Visit Plan: Edema-improved with lower [...] acute concerns. 03/18/2016 Appointment: Catie Shoemaker WPtel: [phone] [phone] (15 min) Moderate 03/18/2016 Patient Education: Patient [...] xray left foot-recommend she follow up with systems support engineer at regarding left foot pain/numbness/weakness. Patient has noticed worsening symptoms since decreasing prednisone. 03/11/2016 Appointment: Catie Shoemaker WPtel: [facility] [place][note 2]0 [phone] (15 min) Moderate 03/11/2016 Patient Education: Patient Medication Summary Completed 03/11/2016 Patient Education: Obesity Completed 03/11/2016 Appointment: Catie Shoemaker WPtel: [phone] [phone] (30 min) Complex 03/09/2016 Visit Plan: Edema [...] daily 02/24/2016 Appointment: Catie Shoemaker WPtel: [phone] [phone] (15 min) Moderate 02/24/2016 Patient Education: Patient Medication Summary Completed 02/24/2016 Patient Education: Obesity Completed 02/24/2016 Patient Education: Hypertension Completed 02/24/2016 Appointment: CyrusMeghana WPtel: [phone] [facility] (15 min) Moderate 02/23/2016 Visit Plan: Hypertension [...] of control. 12/16/2015 Appointment: Meghana Maya WPtel: [phone] [facility] (15 min) Moderate 12/16/2015 Patient Education: [...] min) Complex 10/23/2015 Appointment: Meghana Maya WPtel: [phone] [facility] (15 min) Moderate 10/23/2015 Visit Plan: Hypertension [...] at home. 09/10/2015 Appointment: [phone] (15 min) Moderate 09/10/2015 Patient Education: Patient [...] min) Complex 07/24/2015 Appointment: Meghana Maya WPtel: [facility] [place][note 2]0 [facility] (15 min) Moderate 07/24/2015 Appointment: Lab Draw [...] Completed 04/21/2015 Care Plan: SCREENINGMAMMOGRAPHYDIGITAL LOINC : 67538-0 Ordered 04/21/2015 Appointment: Meghana Maya WPtel: [facility] [place][note 2]8 [facility] [place] (S[place] New Patient 04/01/2015 Referral: Sharon [...] VQ scan negative DR. CROUCH IS THE [employer] WHO SPECIALIZES IN FOOT AND ANKLE DISEASE AT [address] INCREASE THE METOPROLOL TO 1.5 PILLS [...] change in blood pressure readings at home. Sweats/snf use of steroids-check Hgb A1C Peripheral neuropathy-improved with [id number] Dr Duran for tarsel tunnel syndrome PATIENT [...] xray left foot-recommend she follow up with systems support engineer at regarding left foot pain/numbness/weakness. Patient [...] will complete paperwork for pt to come meat pickler - pt is to continue with her specialist at [facility] - Discussed with Dr. Maya - will increase clonidine to BID - pt is to consider referral to dermatology - notify clinic if symptoms do not improve, if they worsen, or with any other questions or concerns. probiotic - eyefactive, probiotic pearls, etc - take three times [...]
--- OUTSIDE RECORDS SUMMARY | 2018-09-30 13:50 | XMS REPORT | CCD ---
Author Author Catie Shoemaker MD, [facility] Address [address] [place] [address] Phone Care Team Providers Care Pipe Supervisor Name Role Phone PP Unavailable CCM Unavailable Summary Purpose Interface Exchange Insurance Providers Payer name Policy type / Coverage type Covered democrat ID Effective Begin Date Effective End Date [facility] [id number] Unknown Family history Mother Diagnosis Age At Onset Hypertension Unknown Breast cancer Unknown Osteoporosis Unknown Father Diagnosis Age At Onset kidney disease Unknown Cancer Unknown Hyperlipidemia Unknown Social History Social History Element Codes Description Effective Dates Marital status Unknown 04/21/2015 Number of children Unknown 1 04/21/2015 Employment Unknown 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 04/21/[address]: 380510458 Never smoker 04/21/2015 Alcohol history Unknown occasionally drinks alcohol 04/21/2015 Allergies, Adverse Reactions, Alerts Substance Reaction Codes Entered Date Inactivated Date Status [id number] REDUCTASE INHIBITORS myalgias Unknown 2015 No Inactive Date Active Past Medical History Illness Codes Condition Status Onset Date Resolved Date Other fatigue ICD-9: 780.79 ICD-10: R53.83 Active 01/24/2017 Unknown Other malaise ICD-9: 780.79 ICD-10: R53.81 Active 06/22/2017 Unknown Acute laryngopharyngitis ICD-9: 465.0 ICD-10: J06.0 Active 10/13/2016 Unknown Other acute sinusitis ICD-9: 461.8 ICD-10: J01.80 Active 10/13/2016 Unknown Other allergic rhinitis ICD-9: 477.8 ICD-10: J30.89 Active 03/02/2017 Unknown Generalized hyperhidrosis ICD-9: 780.8 ICD-10: R61 Active 01/24/2017 Unknown Interstitial pulmonary disease, unspecified ICD-9: 515 ICD-10: J84.9 Active 01/24/2017 Unknown Drug-induced polyneuropathy ICD-9: 357.7 ICD-10: G62.0 Active 08/30/2016 Unknown Essential (primary) hypertension ICD-9: 401.1 ICD-10: I10 Active 08/30/2016 Unknown Impaired fasting glucose ICD-9: 790.21 ICD-10: R73.01 Active 04/20/2015 Unknown Pain in left shoulder ICD-9: 719.41 ICD-10: M25.512 Active 07/01/2016 Unknown Pain in thoracic spine ICD-9: 724.1 ICD-10: M54.6 Active 07/01/2016 Unknown Zoster without complications ICD-9: 053.9 ICD-10: B02.9 Active 07/01/2016 Unknown Essential (primary) hypertension ICD-9: 401.9 ICD-10: I10 Active 06/23/2016 Unknown Menopausal and female climacteric states ICD-9: 627.2 ICD-10: N95.1 Active 06/23/2016 Unknown Other specified hypothyroidism ICD-9: 244.8 ICD-10: E03.8 Active 06/23/2016 Unknown Encounter for screening mammogram [...] Unknown Churg Parrish Unknown Active 06/30/2015 Unknown Chronic kidney disease, stage 3 (moderate) ICD-9: 585.3 ICD-10: N18.3 Active 06/05/2015 Unknown Dyspnea, unspecified ICD-9: 786.09 ICD-10: R06.00 Active 05/15/2015 Unknown Hypertension Unknown Active 04/21/2015 Unknown Hypothryroidism Unknown Active 04/21/2015 Unknown Encounter for screening mammogram for malignant neoplasm of breast ICD-9: V76.11 ICD-10: Z12.31 Active 04/20/2015 Unknown Mixed hyperlipidemia ICD-9: 272.2 ICD-10: E78.2 Active 04/20/2015 Unknown Problems Condition Codes Effective Dates Condition Status Other fatigue ICD-9: 780.79 ICD-10: R53.83 01/24/2017 Active Other malaise ICD-9: 780.79 ICD-10: R53.81 06/22/2017 Active Acute laryngopharyngitis ICD-9: 465.0 ICD-10: J06.0 10/13/2016 Active Other acute sinusitis ICD-9: 461.8 ICD-10: J01.80 10/13/2016 Active Other allergic rhinitis ICD-9: 477.8 ICD-10: J30.89 03/02/2017 Active Generalized hyperhidrosis ICD-9: 780.8 ICD-10: R61 01/24/2017 Active Interstitial pulmonary disease, unspecified ICD-9: 515 ICD-10: J84.9 01/24/2017 Active Drug-induced polyneuropathy ICD-9: 357.7 ICD-10: G62.0 08/30/2016 Active Essential (primary) hypertension ICD-9: 401.1 ICD-10: I10 08/30/2016 Active Impaired fasting glucose ICD-9: 790.21 ICD-10: R73.01 04/20/2015 Active Pain in left shoulder ICD-9: 719.41 ICD-10: M25.512 07/01/2016 Active Pain in thoracic spine ICD-9: 724.1 ICD-10: M54.6 07/01/2016 Active Zoster without complications ICD-9: 053.9 ICD-10: B02.9 07/01/2016 Active Essential (primary) hypertension ICD-9: 401.9 ICD-10: I10 06/23/2016 Active Menopausal and female climacteric states ICD-9: 627.2 ICD-10: N95.1 06/23/2016 Active Other specified hypothyroidism ICD-9: 244.8 ICD-10: E03.8 06/23/2016 Active Encounter for screening mammogram for [...] 08/03/2015 Active Churg Parrish Unknown 06/30/2015 Active Chronic kidney disease, stage 3 (moderate) ICD-9: 585.3 ICD-10: N18.3 06/05/2015 Active Dyspnea, unspecified ICD-9: 786.09 ICD-10: R06.00 05/15/2015 Active Hypertension Unknown 04/21/2015 Active Hypothryroidism Unknown 04/21/2015 Active Encounter for screening mammogram for malignant neoplasm of breast ICD-9: V76.11 ICD-10: Z12.31 04/20/2015 Active Mixed hyperlipidemia ICD-9: 272.2 ICD-10: E78.2 04/20/2015 Active Medications Medication Codes Instructions Start Date Stop Date Status Fill Instructions Tamiflu 75 mg capsule RxNorm: 347958 1 Capsule(s) PO BID 201606/26/2017 Inactive Kenalog 40 mg/mL suspension for injection RxNorm: 8344810 1.5 Milliliter(s) Inj 06/22/2017 06/22/2017 Inactive clonidine HCl 0.1 mg tablet RxNorm: 009268 TAKE ONE TABLET BY MOUTH TWICE A DAY 06/06/2017 12/02/2017 Active potassium chloride ER 10 mEq tablet,extended release RxNorm: 678512 TAKE ONE TABLET BY MOUTH DAILY 06/06/20172017 Active venlafaxine ER 150 mg capsule,extended release 24 hr RxNorm: 438254 TAKE ONE CAPSULE BY MOUTH DAILY 05/23/20172017 Active Zithromax 500 mg tablet RxNorm: 649507 1 Tablet(s) PO daily 05/22/2017 Inactive potassium chloride ER 10 mEq tablet,extended release RxNorm: 620878 TAKE ONE TABLET BY MOUTH DAILY 04/21/20172016 Inactive potassium chloride ER 10 mEq tablet,extended release RxNorm: 625277 TAKE ONE TABLET BY MOUTH DAILY 03/16/20172016 Inactive Zithromax Z-Jacek 250 mg tablet RxNorm: 995710 1 Tablet(s) PO UD 03/02/2017 06/21/2017 Inactive venlafaxine ER 150 mg capsule,extended release 24 hr RxNorm: 513603 TAKE ONE CAPSULE BY MOUTH DAILY 02/17/20172017 Active venlafaxine ER 150 mg capsule,extended release 24 hr RxNorm: 607627 Capsule(s) TAKE ONE CAPSULE BY MOUTH DAILY 02/17/2017 02/16/2017 Inactive clonidine HCl 0.1 mg tablet RxNorm: 875553 TAKE ONE TABLET BY MOUTH EVERY NIGHT AT BEDTIME 02/14/2017 05/14/2017 Inactive metoprolol succinate ER 50 mg tablet,extended release 24 hr RxNorm: 859170 TAKE ONE TABLET BY MOUTH DAILY 02/14/201708/12 Active Protonix 40 mg tablet,delayed release RxNorm: 377517 TAKE ONE TABLET BY MOUTH DAILY WHILE ON PREDNISONE 01/25/201706/23 Inactive Zithromax Z-Jacek 250 mg tablet RxNorm: 709250 1 Tablet(s) PO UD 01/24/2017 No Stop Date Active potassium chloride ER 10 mEq tablet,extended release RxNorm: 550201 TAKE ONE TABLET BY MOUTH DAILY 01/17/20172016 Inactive clonidine HCl 0.1 mg tablet RxNorm: 939605 TAKE ONE TABLET BY MOUTH EVERY NIGHT AT BEDTIME 01/17/2017 02/13/2017 Inactive potassium chloride ER 10 mEq tablet,extended release RxNorm: 746598 TAKE ONE TABLET BY MOUTH DAILY 12/16/20162016 Inactive venlafaxine ER 150 mg capsule,extended release 24 hr RxNorm: 931806 TAKE ONE CAPSULE BY MOUTH DAILY 11/18/20162016 Inactive clonidine HCl 0.1 mg tablet RxNorm: 771031 TAKE ONE TABLET BY MOUTH EVERY NIGHT AT BEDTIME 11/08/2016 01/06/2017 Inactive clonidine HCl 0.1 mg tablet RxNorm: 882892 1 Tablet(s) BID 01/16/2017 Inactive potassium chloride ER 10 mEq tablet,extended release RxNorm: 384279 TAKE ONE TABLET BY MOUTH DAILY 10/15/20162016 Inactive Zithromax Z-Jacek 250 mg tablet RxNorm: 935309 1 Tablet(s) PO UD 10/13/2016 No Stop Date Active potassium chloride ER 10 mEq tablet,extended release RxNorm: 230969 TAKE ONE TABLET BY MOUTH DAILY 10/12/20162016 Inactive potassium chloride ER 10 mEq tablet,extended release RxNorm: 906999 Tablet(s) BID TAKE ONE TABLET BY MOUTH TWICE DAILY 09/17/2016 10/11/2016 Inactive potassium chloride ER 10 mEq tablet,extended release RxNorm: 280979 TAKE ONE TABLET BY MOUTH DAILY 09/13/20162016 Inactive clonidine HCl 0.1 mg tablet RxNorm: 574546 Tablet(s) TAKE ONE TABLET BY MOUTH EVERY NIGHT AT BEDTIME 08/12/20162016 Inactive gabapentin 300 mg capsule RxNorm: 006265 1 Capsule(s) PO Q No Stop Date Active venlafaxine ER 150 mg capsule,extended release 24 hr RxNorm: 219814 TAKE ONE CAPSULE BY MOUTH DAILY 08/09/20162016 Inactive metoprolol succinate ER 50 mg tablet,extended release 24 hr RxNorm: 055443 TAKE ONE TABLET BY MOUTH DAILY 07/29/201601/24 Inactive clonidine HCl 0.1 mg tablet RxNorm: 858963 TAKE ONE TABLET BY MOUTH EVERY NIGHT AT BEDTIME 07/21/2016 08/11/2016 Inactive potassium chloride ER 10 mEq tablet,extended release RxNorm: 029495 TAKE ONE TABLET BY MOUTH DAILY 07/14/20162016 Inactive Prescriber not associated with this practice or location capsaicin 0.1 % topical cream RxNorm: 732418 1 Application TOP TID as needed 07/02/2016 No Stop Date Active acyclovir 400 mg tablet RxNorm: 293227 2 Tablet(s) PO QID 07/0207/11/2016 Inactive cyclobenzaprine 5 mg tablet RxNorm: 637608 1-2 Tablet(s) PO TID as needed 07/02/2016 07/06/2016 Inactive Protonix 40 mg tablet,delayed release RxNorm: 304173 TAKE ONE TABLET BY MOUTH DAILY WHILE ON PREDNISONE 06/29/201612/25 Inactive clonidine HCl 0.1 mg tablet RxNorm: 958118 1 Tablet(s) PO QHS 06/25/2016 07/20/2016 Inactive calcium carbonate 500 mg calcium (1,250 mg) tablet RxNorm: 990394 TAKE ONE TABLET BY MOUTH DAILY WHILE ON PREDNISONE. MAY STOP TAKING WHEN PREDNISONE IS COMPLETE 06/01/2016 09/28/2016 Inactive Vitamin D3 1,000 unit tablet RxNorm: 092018 1 Tablet(s) PO daily . May stop taking once prednisone is complete. 04/26/2016 10/22/2016 Inactive metoprolol succinate ER 50 mg tablet,extended release 24 hr RxNorm: 568317 1.5 Tablet(s) PO daily 04/06/2016 06/23/2016 Inactive prednisone 10 mg tablet RxNorm: 137160 1 Tablet(s) PO daily 12/201506/21/2017 Inactive metoprolol succinate ER 50 mg tablet,extended release 24 hr RxNorm: 385015 1 Tablet(s) PO daily 03/18/2016 04/05/2016 Inactive amlodipine 10 mg tablet RxNorm: 898485 1/2 Tablet(s) PO daily 02/24/2016 06/21/2016 Inactive metoprolol succinate ER 25 mg tablet,extended release 24 hr RxNorm: 929109 1 Tablet(s) PO daily 02/24/2016 03/16/2016 Inactive calcium carbonate 500 mg calcium (1,250 mg) tablet RxNorm: 992186 TAKE ONE TABLET BY MOUTH DAILY WHILE ON PREDNISONE. MAY STOP TAKING WHEN PREDNISONE IS COMPLETE 02/16/2016 05/15/2016 Inactive Protonix 40 mg tablet,delayed release RxNorm: 617650 TAKE ONE TABLET BY MOUTH DAILY WHILE ON PREDNISONE 02/10/201605/09 Inactive venlafaxine ER 150 mg capsule,extended release 24 hr RxNorm: 563308 Capsule(s) TAKE ONE CAPSULE BY MOUTH DAILY 12/10/2015 04/07/2016 Inactive levothyroxine 50 mcg tablet RxNorm: 955961 1 Tablet(s) PO daily 12/01/2015 11/24/2016 Inactive calcium carbonate 500 mg calcium (1,250 mg) tablet RxNorm: 988388 1 Tablet(s) PO daily 12/01/2015 01/29/2016 Inactive Vitamin D3 1,000 unit tablet RxNorm: 994815 1 Tablet(s) PO daily 12/01/2015 03/29/2016 Inactive amlodipine 10 mg tablet RxNorm: 932985 1 Tablet(s) PO daily 11/18/2015 Inactive amlodipine 10 mg tablet RxNorm: 078018 1 Tablet(s) PO daily 02/23/2016 Inactive amlodipine 5 mg tablet RxNorm: 248389 1 Tablet(s) PO daily 11/18/2015 Inactive venlafaxine ER 150 mg capsule,extended release 24 hr RxNorm: 629120 TAKE ONE CAPSULE BY MOUTH DAILY 11/13/20152015 Inactive Protonix 40 mg tablet,delayed release RxNorm: 560276 1 Tablet(s) PO daily while on prednisone 2015 02/09/2016 Inactive prednisone 10 mg tablet RxNorm: 672309 2 Tablet(s) PO UD 201504/01/2016 Inactive 60mg for 2 days, then 50mg for 2 days, then 40mg for 2 days, then 30mg for 2 days, then 20mg for 2 days, then 10mg for 2 days, then 5mg for 2 days potassium chloride ER 10 mEq tablet,extended release RxNorm: 260765 TAKE ONE TABLET BY MOUTH DAILY 09/22/20152015 Inactive venlafaxine ER 150 mg capsule,extended release 24 hr RxNorm: 147115 TAKE ONE CAPSULE BY MOUTH DAILY 09/08/20152015 Inactive cefdinir 300 mg capsule RxNorm: 852934 1 Capsule(s) PO BID 08/22/2015 Inactive cefdinir 300 mg capsule RxNorm: 073398 1 Capsule(s) PO BID 08/18/2015 Inactive Kenalog 40 mg/mL suspension for injection RxNorm: 1814035 1 Milliliter(s) Inj 08/04/2015 08/04/2015 Inactive triamterene 37.5 mg-hydrochlorothiazide 25 mg tablet RxNorm: 325247 1 Tablet(s) PO BID 06/17/2015 08/03/2015 Inactive potassium chloride ER 10 mEq tablet,extended release RxNorm: 121402 1 Tablet(s) PO daily 05/30/2015 08/03/2015 Inactive Levaquin 250 mg tablet RxNorm: 136806 Tablet(s) PO UD 500 mg day one, then 250 mg day 2-7 05/27/2015 08/03/2015 Inactive prednisone 10 mg tablet RxNorm: 618054 Tablet(s) PO UD 201410/29/2015 Inactive 60mg for 2 days, then 50mg for 2 days, then 40mg for 2 days, then 30mg for 2 days, then 20mg for 2 days, then 10mg for 2 days, then 5mg for 2 days albuterol sulfate 1.25 mg/3 mL solution for nebulization RxNorm: 227893 3 Milliliter(s) INH Q4-6H as needed dyspnea 05/23/2015 No Stop Date Active Zithromax 500 mg tablet RxNorm: 647951 1 Tablet(s) PO daily 05/15/2015 Inactive Zithromax 500 mg tablet RxNorm: 995225 1 Tablet(s) PO daily 05/20/2015 Inactive prednisone 20 mg tablet RxNorm: 354950 3 Tablet(s) PO daily 05/16/2015 Inactive venlafaxine ER 150 mg capsule,extended release 24 hr RxNorm: 885283 TAKE ONE CAPSULE BY MOUTH DAILY 05/12/20152015 Inactive Keflex 500 mg capsule RxNorm: 733186 1 Capsule(s) PO TID 201405/18/2015 Inactive simvastatin 20 mg tablet RxNorm: 880318 1 Tablet(s) PO daily 04/09/2015 Inactive simvastatin 20 mg tablet RxNorm: 498100 1 Tablet(s) PO daily 08/11/2015 Inactive venlafaxine ER 150 mg capsule,extended release 24 hr RxNorm: 318685 TAKE ONE CAPSULE BY MOUTH DAILY 04/08/20152014 Inactive amlodipine 5 mg tablet RxNorm: 791067 1 Tablet(s) PO daily 04/201503/06/2015 Inactive amlodipine 5 mg tablet RxNorm: 248070 1 Tablet(s) PO daily 04/201507/04/2015 Inactive venlafaxine ER 150 mg capsule,extended release 24 hr RxNorm: 420356 1 Capsule(s) PO daily 01/29/2015 03/29/2015 Inactive metoprolol succinate ER 50 mg tablet,extended release 24 hr RxNorm: 025416 1 Tablet(s) PO daily No Start Date Active vitamin B complex oral RxNorm: 42651 oral No Start Date Active Co Q-10 oral RxNorm: 13392 oral No Start Date Active albuterol sulfate 1.25 mg/3 mL solution for nebulization RxNorm: 366738 3 Milliliter(s) INH Q4-6H as needed dyspnea No Start Date 05/22/2015 Inactive levothyroxine 50 mcg tablet RxNorm: 248408 1 Tablet(s) PO daily No Start Date 11/30/2015 Inactive gabapentin 300 mg capsule RxNorm: 723335 1 Capsule(s) PO QHS No Start Date 08/09/2016 Inactive Vitamin D3 1,000 unit tablet RxNorm: 170324 1 Tablet(s) PO daily No Start Date 11/30/2015 Inactive Protonix 40 mg tablet,delayed release RxNorm: 013366 1 Tablet(s) PO daily while on prednisone No Start Date 10/30/2015 Inactive calcium carbonate oral RxNorm: oral No Start Date 11/30/2015 Inactive potassium chloride ER 10 mEq tablet,extended release RxNorm: 062008 1 Tablet(s) PO daily No Start Date 05/29/2015 Inactive Levaquin 250 mg tablet RxNorm: 119883 Tablet(s) PO UD 500 mg day one, then 250 mg day 2-7 No Start Date 05/26/2015 Inactive triamterene 37.5 mg-hydrochlorothiazide 25 mg tablet RxNorm: 373597 1 Tablet(s) PO BID No Start Date 06/16/2015 Inactive prednisone 10 mg tablet RxNorm: 700430 Tablet(s) PO UD No Start Date 05/26/2015 Inactive 60mg for 2 days, then 50mg for 2 days, then 40mg for 2 days, then 30mg for 2 days, then 20mg for 2 days, then 10mg for 2 days, then 5mg for 2 days venlafaxine ER 150 mg capsule,extended release 24 hr RxNorm: 659015 1 Capsule(s) PO daily No Start Date 01/28/2015 Inactive Medication Administered Medication Codes Instructions Start Date Status Kenalog 40 mg/mL suspension for injection RxNorm: 1132996 1.5Milliliter 06/22/2017 No longer Active Kenalog 40 mg/mL suspension for injection RxNorm: 0269586 1Milliliter 08/04/2015 No longer Active Immunizations No Immunization data Assessments Condition Codes Effective Dates Other fatigue ICD-10: R53.83 ICD-9: 780.79 06/22/2017 Other malaise ICD-10: R53.81 ICD-9: 780.79 06/22/2017 Other allergic rhinitis ICD-10: J30.89 ICD-9: 477.8 03/02/2017 Acute laryngopharyngitis ICD-10: J06.0 ICD-9: 465.0 03/02/2017 Other acute sinusitis ICD-10: J01.80 ICD-9: 461.8 03/02/2017 Generalized hyperhidrosis ICD-10: R61 ICD-9: 780.8 01/24/2017 Interstitial pulmonary disease, unspecified ICD-10: J84.9 ICD-9: 515 01/24/2017 Impaired fasting glucose ICD-10: R73.01 ICD-9: 790.21 08/30/2016 Drug-induced polyneuropathy ICD-10: G62.0 ICD-9: 357.7 08/30/2016 Essential (primary) hypertension ICD-10: I10 ICD-9: 401.1 08/30/2016 Zoster without complications ICD-10: B02.9 ICD-9: 053.9 07/02/2016 Pain in thoracic spine ICD-10: M54.6 ICD-9: 724.1 07/02/2016 Pain in left shoulder ICD-10: M25.512 ICD-9: 719.41 07/02/2016 Essential (primary) hypertension ICD-10: I10 ICD-9: 401.9 06/24/2016 Menopausal and female climacteric states ICD-10: N95.1 ICD-9: 627.2 06/24/2016 Other specified hypothyroidism ICD-10: E03.8 ICD-9: 244.8 06/24/2016 Encounter for screening mammogram for malignant [...] Dyspnea, unspecified ICD-10: R06.00 ICD-9: 786.09 05/16/2015 Mixed hyperlipidemia ICD-10: E78.2 ICD-9: 272.2 04/21/2015 Encounter for screening mammogram for malignant neoplasm of breast ICD-10: Z12.31 ICD-9: V76.11 04/21/2015 Reason For Visit Reason For Visit Effective Dates Notes cough 06/22/2017 sinus congestion 03/02/2017 diaphoresis 01/24/2017 cough 10/13/2016 hypertension 08/30/2016 shoulder pain 07/02/2016 menopausal symptoms 06/24/2016 hypertension 05/04/2016 hypertension 04/06/2016 blood pressure followup 03/18/2016 blood pressure followup 03/11/2016 edema 02/24/2016 hypertension 12/16/2015 hypertension 10/30/2015 diarrhea 09/23/2015 diarrhea 09/10/2015 nasal discharge 08/12/2015 knee pain 08/04/2015 shortness of breath 05/16/2015 hypothyroid 04/21/2015 Results Observation Observation Code Item Item Code Result Date C A/B FLU 0080762 Influenza A Scr Negative 06/22/2017 C A/B FLU 8596224 Influenza B Scr Negative 06/22/2017 C A/B FLU 1094962 Influenza Intrp B AG: PRID:PT:NOSE:NOM:IF See Footnote 06/22/2017 Comp Metabolic Zgb427 NA 140 mEq/L 08/30/2016 Comp Metabolic Cat814 K 3.3 mEq/L 08/30/2016 Comp Metabolic Cnt419 CL 104 mEq/L 08/30/2016 Comp Metabolic Geg696 CO2 26.0 mEq/L 08/30/2016 Comp Metabolic Hvk055 ANION GAP 13 08/30/2016 Comp Metabolic Mjk903 GLUCOSE 143 mg/dL 08/30/2016 Comp Metabolic Pnw184 Creat 1.3 mg/dL 08/30/2016 Comp Metabolic Qbz059 eGFR 43 ml/min/1.73m2 08/30/2016 Comp Metabolic Loq320 BUN 19 mg/dL 08/30/2016 Comp Metabolic Luh246 B/C Ratio 14.3 Ratio 08/30/2016 Comp Metabolic Mtc942 CALCIUM 10.0 mg/dL 08/30/2016 Comp Metabolic Dzr012 ALK PHOS 67 U/L 08/30/2016 Comp Metabolic Efe580 AST(SGOT) 28 U/L 08/30/2016 Comp Metabolic Ufg243 ALT(SGPT) 43 U/L 08/30/2016 Comp Metabolic Amn338 BILI T 0.4 mg/dL 08/30/2016 Comp Metabolic Aea072 ALBUMIN 4.0 g/dL 08/30/2016 Comp Metabolic Uah365 TPRO 6.2 g/dL 08/30/2016 Comp Metabolic Bln168 GLOB 2.2 g/dL 08/30/2016 Comp Metabolic Boh876 A/G Ratio 1.8 Ratio 08/30/2016 Comp Metabolic Amq653 Osmo 284 mOsmo 08/30/2016 %Hba1C Eic258 % HbA1c 19636-5 6.1 % 08/30/2016 %Hba1C Qpd205 Gluc Ave 128 mg/dL 08/30/2016 Free T4 Jtk736 FREE T4 0.75 ng/dL 06/25/2016 Tsh Ord6 [...] Ord90 Mag 2.1 mg/dL 12/16/2015 Free T4 Yby232 FREE T4 0.92 ng/dL 12/16/2015 Tsh Ord6 [...] 28.5 pg 08/04/2015 Cbc With Differential Ord2 [place]% 6.1 % 08/04/2015 Cbc With Differential Ord2 [...] 0.73 K/ul 08/04/2015 Cbc With Differential Ord2 [place] ABS# 0.5 K/ul 08/04/2015 Cbc With Differential Ord2 Eos ABS# 0.1 K/ul 08/04/2015 Cbc With Differential Ord2 Baso ABS# 0.0 K/ul 08/04/2015 Cbc With Differential Ord2 New Analyzer Notice Please note new ref ranges starting 07-09-2015 due to implemntation of new five part differential hematolgy analyzer. 08/04/2015 C-Reactive Protein Qnt Crqnt CRP 0.8 mg/dl 08/04/2015 Comp Metabolic Sqi225 NA 139 mEq/L 08/04/2015 Comp Metabolic Abw590 K 3.4 mEq/L 08/04/2015 Comp Metabolic Ucw158 CL 109 mEq/L 08/04/2015 Comp Metabolic Kyw741 CO2 22.0 mEq/L 08/04/2015 Comp Metabolic Kqa355 ANION GAP 11 08/04/2015 Comp Metabolic Wbx738 GLUCOSE 177 mg/dL 08/04/2015 Comp Metabolic Nwa841 Creat 1.0 mg/dL 08/04/2015 Comp Metabolic Ykw255 eGFR 64 ml/min/1.73m2 08/04/2015 Comp Metabolic Arv908 BUN 35 mg/dL 08/04/2015 Comp Metabolic Iwu083 B/C Ratio 36.8 Ratio 08/04/2015 Comp Metabolic Pih795 CALCIUM 8.5 mg/dL 08/04/2015 Comp Metabolic Ijz870 ALK PHOS 57 U/L 08/04/2015 Comp Metabolic Yho903 AST(SGOT) 21 U/L 08/04/2015 Comp Metabolic Dqn221 ALT(SGPT) 63 U/L 08/04/2015 Comp Metabolic Vik024 BILI T 0.3 mg/dL 08/04/2015 Comp Metabolic Zkv441 ALBUMIN 3.1 g/dL 08/04/2015 Comp Metabolic Dwr825 TPRO 5.1 g/dL 08/04/2015 Comp Metabolic Mlg285 GLOB 2.0 g/dL 08/04/2015 Comp Metabolic Ret461 A/G Ratio 1.6 Ratio 08/04/2015 Comp Metabolic Xaw369 Osmo 290 mOsmo 08/04/2015 Cpk Ord61 CPK 52 U/L 08/04/2015 Random Urine Protein/Creatinine Ratio Tkg5377 U Prot 8.5 mg/dl 05/27/2015 Random Urine Protein/Creatinine Ratio Sci7694 U CREAT 201.0 mg/dL 05/27/2015 Random Urine Protein/Creatinine Ratio Xoc7370 R MTP/Creat Ratio 0.04 05/27/2015 Urinalysis Ord28 [...] 05/27/2015 Urinalysis Ord28 U-Yeast NEGATIVE 05/27/2015 Renal Fdr286 NA 136 mEq/L 05/26/2015 Renal Izi753 K 3.3 mEq/L 05/26/2015 Renal Tpu147 CL 99 mEq/L 05/26/2015 Renal Vla038 CO2 25.0 mEq/L 05/26/2015 Renal Rkw796 ANION GAP 15 05/26/2015 Renal Bbd000 Osmo 274 mOsmo 05/26/2015 Renal Zyr600 GLUCOSE 106 mg/dL 05/26/2015 Renal Vzq063 BUN 17 mg/dL 05/26/2015 Renal Xol220 Creat 1.4 mg/dL 05/26/2015 Renal Lqg517 eGFR 40 ml/min/1.73m2 05/26/2015 Renal Dub962 B/C Ratio 12.0 Ratio 05/26/2015 Renal Rpm038 CALCIUM 9.3 mg/dL 05/26/2015 Renal Vts982 PHOS 3.4 mg/dL 05/26/2015 Renal Btt245 ALBUMIN 3.4 g/dL 05/26/2015 Cbc With Differential [...] Ord2 RDW 14.3 % 04/21/2015 Free T4 Ydf972 FREE T4 0.91 ng/dL 04/21/2015 %Hba1C Wbm015 % HbA1c 32255-7 5.8 % 04/21/2015 %Hba1C Cso120 Gluc Ave 120 mg/dL 04/21/2015 Comp Metabolic Icp500 NA 137 mEq/L 04/21/2015 Comp Metabolic Gch887 K 3.6 mEq/L 04/21/2015 Comp Metabolic Pwj652 CL 98 mEq/L 04/21/2015 Comp Metabolic Wxf091 CO2 25.0 mEq/L 04/21/2015 Comp Metabolic Oso842 ANION GAP 18 04/21/2015 Comp Metabolic Eya358 GLUCOSE 83 mg/dL 04/21/2015 Comp Metabolic Bke156 Creat 1.6 mg/dL 04/21/2015 Comp Metabolic Thm662 eGFR 36 ml/min/1.73m2 04/21/2015 Comp Metabolic Dxp197 BUN 28 mg/dL 04/21/2015 Comp Metabolic Zme748 B/C Ratio 17.9 Ratio 04/21/2015 Comp Metabolic Tep596 CALCIUM 9.5 mg/dL 04/21/2015 Comp Metabolic Eij958 ALK PHOS 60 U/L 04/21/2015 Comp Metabolic Tth113 AST(SGOT) 22 U/L 04/21/2015 Comp Metabolic Oxm515 ALT(SGPT) 10 U/L 04/21/2015 Comp Metabolic Ucd634 BILI T 0.4 mg/dL 04/21/2015 Comp Metabolic Iic090 ALBUMIN 4.0 g/dL 04/21/2015 Comp Metabolic Mgn290 TPRO 6.8 g/dL 04/21/2015 Comp Metabolic Ahr965 GLOB 2.8 g/dL 04/21/2015 Comp Metabolic Ded324 A/G Ratio 1.4 Ratio 04/21/2015 Comp Metabolic Qki848 Osmo 278 mOsmo 04/21/2015 Tsh Ord6 hTSH II 2.58 uIU/mL 04/21/2015 Review of Systems System Result Effective Dates Constitutional recent illness 06/22/2017 Constitutional chills 06/22/2017 [...] Procedure Codes Date THER/PROPH/DIAG INJ SC/IM CPT-4: 46220 06/22/2017 TRIAMCINOLONE ACET INJ NOS CPT-4: J3301 06/22/2017 THER/PROPH/DIAG INJ SC/IM CPT-4: 22610 08/04/2015 TRIAMCINOLONE ACET INJ NOS CPT-4: J3301 08/04/2015 Vital Signs Date Vital 06/22/2017 Blood Pressure 1: 168/92 Code : 8480-6 BMI: 32.6 Code : 71785-8 Heart Rate 1 : 133 bpm Height: 5'1" SpO2: 97% Temperature: 37.6 (C) / 99.7 (F) Weight: 172 lbs 8 oz 03/02/2017 Blood Pressure 1: 168/90 Code : 8480-6 BMI: 35.0 Code : 66295-9 Heart Rate 1 : 80 bpm Height: 5'1" SpO2: 94% Weight: 185 lbs 01/24/2017 Blood Pressure 1: 130/68 Code : 8480-6 BMI: 35.3 Code : 02611-0 Heart Rate 1 : 66 bpm Height: 5'1" SpO2: 98% Weight: 187 lbs 10/13/2016 Blood Pressure 1: 136/74 Code : 8480-6 BMI: 35.1 Code : 17146-0 Heart Rate 1 : 71 bpm Height: 5'1" SpO2: 97% Weight: 186 lbs 08/30/2016 Blood Pressure 1: 128/80 Code : 8480-6 BMI: 35.0 Code : 10198-4 Heart Rate 1 : 75 bpm Height: 5'1" SpO2: 96% Weight: 185 lbs 8 oz 07/02/2016 Blood Pressure 1: 140/78 Code : 8480-6 Heart Rate 1: 63 bpm Height: 5'1" SpO2: 98% 06/24/2016 Blood Pressure 1: 148/100 Code: 8480-6 BMI: 34.2 Code: 56640-5 Heart Rate 1: 110 bpm Height : 5'1" SpO2: 94% Weight: 181 lbs 05/04/2016 Blood Pressure 1: 150/90 Code : 8480-6 Blood Pressure 1: 134/82 Code: 8480-6 BMI: 34.6 Code: 25208-6 Heart Rate 1: 74 bpm Height: 5'1" SpO2: 98% Weight: 183 lbs 04/06/2016 Blood Pressure 1: 156/92 Code : 8480-6 Blood Pressure 1: 158/88 Code: 8480-6 BMI: 34.8 Code: 22863-2 Heart Rate 1: 69 bpm Height: 5'1" SpO2: 97% Weight: 184 lbs 03/18/2016 Blood Pressure 1: 148/90 Code : 8480-6 BMI: 35.1 Code : 43882-7 Heart Rate 1 : 106 bpm Height: 5'1" SpO2: 94% Weight: 186 lbs 03/11/2016 Blood Pressure 1: 140/90 Code : 8480-6 BMI: 35.1 Code : 41857-1 Heart Rate 1 : 103 bpm Height: 5'1" SpO2: 96% Weight: 186 lbs 02/24/2016 Blood Pressure 1: 130/80 Code : 8480-6 BMI: 34.4 Code : 55350-0 Heart Rate 1 : 110 bpm Height: 5'1" SpO2: 96% Weight: 182 lbs 12/16/2015 Blood Pressure 1: 144/98 Code : 8480-6 BMI: 33.8 Code : 63173-1 Heart Rate 1 : 97 bpm Height: 5'1" SpO2: 98% Weight: 179 lbs 10/30/2015 Blood Pressure 1: 138/88 Code : 8480-6 BMI: 33.6 Code : 50389-2 Heart Rate 1 : 88 bpm Height: 5'1" SpO2: 98% Weight: 178 lbs 09/23/2015 Blood Pressure 1: 152/94 Code : 8480-6 BMI: 32.7 Code : 09939-6 Heart Rate 1 : 83 bpm Height: 5'1" SpO2: 97% Weight: 173 lbs 09/10/2015 Blood Pressure 1: 136/82 Code : 8480-6 BMI: 32.1 Code : 48309-7 Heart Rate 1 : 105 bpm Height: 5'1" SpO2: 97% Weight: 170 lbs 08/12/2015 Blood Pressure 1: 132/70 Code : 8480-6 BMI: 31.2 Code : 37391-4 Heart Rate 1 : 88 bpm Height: 5'1" SpO2: 95% Temperature: 36.7 (C) / 98.0 (F) Weight: 165 lbs 08/04/2015 Blood Pressure 1: 136/80 Code : 8480-6 BMI: 31.0 Code : 19208-7 Heart Rate 1 : 110 bpm Height: 5'1" SpO2: 98% Weight: 164 lbs 05/16/2015 Blood Pressure 1: 138/88 Code : 8480-6 BMI: 32.9 Code : 44822-5 Heart Rate 1 : 87 bpm Height: 5'1" SpO2: 90% Weight: 174 lbs 05/12/2015 BMI: 31.7 Code: 19994-1 Height: 5'1" Weight: 168 lbs 04/21/2015 Blood Pressure 1: 124/82 Code : 8480-6 BMI: 32.1 Code : 90128-8 Heart Rate 1 : 87 bpm Height: 5'1" Weight: 170 lbs Functional Status No Functional Status data History of Present Illness Symptom Name Status Result Effective Date Notes cough Location in the throat 06/22/2017 None [...] Codes Date EST. PATIENT, LEVEL IV Diagnosis: Other malaise[ICD10: R53.81] Diagnosis: Other fatigue[ICD10: R53.83] [facility] CPT-4 : 57003 06/22/201759318 EST. PATIENT, LEVEL IV Diagnosis: Acute laryngopharyngitis[ICD10: J06.0] Diagnosis: Other acute sinusitis[ICD10: J01.80] Diagnosis: Other allergic rhinitis[ICD10: J30.89] Britney Maya MD, [facility] CPT-4: 82393 03/02/2017 79632 EST. PATIENT, LEVEL IV Diagnosis: Generalized hyperhidrosis[ICD10: R61] Diagnosis: Other acute sinusitis[ICD10: J01.80] Diagnosis: Other fatigue[ICD10: R53.83] Diagnosis: Interstitial pulmonary disease, unspecified[ICD10: J84.9] Britney Maya MD, [facility] CPT-4: 54903 01/24/2017 78247 EST. PATIENT, LEVEL IV Diagnosis: Acute laryngopharyngitis[ICD10: J06.0] Diagnosis: Other acute sinusitis[ICD10: J01.80] Britney Maya MD, [facility] CPT-4: 33040 10/13/2016 ([id number]) 97330 EST. 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 PATIENT, LEVEL IV Diagnosis: Pain in thoracic spine[ICD10: M54.6] Diagnosis: Pain in left shoulder[ICD10: M25.512] Diagnosis: Zoster without complications[ICD10: B02.9] Britney Maya MD, [facility] CPT-4: 45904 07/02/2016 62950 EST. PATIENT, LEVEL III Diagnosis: Other specified hypothyroidism[ICD10: E03.8] Diagnosis: Menopausal and female climacteric states[ICD10: N95.1] Diagnosis: Essential (primary) hypertension[ICD10: I10] Britney Maya MD, [facility] CPT-4: 60361 06/24/2016 ([id number]) 53573 EST. PATIENT, LEVEL IV Diagnosis: Essential (primary) hypertension[ICD10: I10] Diagnosis: Atrophy of thyroid (acquired)[ICD10: E03.4] Diagnosis: Pain in left foot[ICD10: M79.672] Meghana Maya MD, [facility] CPT-4: 08090 05/04/2016 ([id number]) 84359 EST. PATIENT, LEVEL IV Diagnosis: Essential (primary) hypertension[ICD10: I10] Diagnosis: Pain in left leg[ICD10: M79.605] Diagnosis: Pain in left foot[ICD10: M79.672] Diagnosis: Atrophy of thyroid (acquired)[ICD10: E03.4] Meghana Maya MD, [facility] CPT-4: 30146 04/06/2016 ([id number]) 95365 EST. PATIENT, LEVEL III Diagnosis: Essential (primary) hypertension[ICD10: I10] Diagnosis: Localized edema[ICD10: R60.0] Catie Maya MD, [facility] CPT-4: 43211 03/18/2016 ([id number]) 42816 EST. PATIENT, LEVEL III Diagnosis: Essential (primary) hypertension[ICD10: I10] Diagnosis: Pain in left foot[ICD10: M79.672] Catie Maya MD [facility] CPT-4: 52762 03/11/2016 ([id number]) 01210 EST. PATIENT, LEVEL III Diagnosis: Localized edema[ICD10: R60.0] Diagnosis: Essential (primary) hypertension[ICD10: I10] Catie Maya MD, [facility] CPT-4: 72544 02/24/2016 ([id number]) 29267 EST. PATIENT, LEVEL IV Diagnosis: Hypothyroidism, unspecified[ICD10: E03.9] Diagnosis: Essential (primary) hypertension[ICD10: I10] Meghana Maya MD, [facility] CPT-4: 30607 12/16/2015 ([id number]) 21854 EST. PATIENT, LEVEL III Diagnosis: Essential (primary) hypertension[ICD10: I10] Diagnosis: Hypothyroidism, unspecified[ICD10: E03.9] Meghana Maya MD, [facility] CPT-4: 40080 10/30/2015 ([id number]) 11314 EST. PATIENT, LEVEL IV Diagnosis: Diarrhea, unspecified[ICD10: R19.7] Diagnosis: Essential (primary) hypertension[ICD10: I10] Meghana Maya MD, [facility] CPT-4: 25898 09/23/2015 ([id number]) 51592 EST. PATIENT, LEVEL III Diagnosis: Essential (primary) hypertension[ICD10: I10] Diagnosis: Diarrhea, unspecified[ICD10: R19.7] Meghana Maya MD [facility] CPT-4: 40786 09/10/2015 ([id number]) 75616 EST. PATIENT, LEVEL III Diagnosis: Acute maxillary sinusitis, unspecified[ICD10: J01.00] Diagnosis: Myositis, unspecified[ICD10: M60.9] Meghana Maya MD [facility] CPT-4: 91203 08/12/2015 ([id number]) 60741 EST. PATIENT, LEVEL IV Diagnosis: Essential (primary) hypertension[ICD10: I10] Diagnosis: Pain in left leg[ICD10: M79.605] Diagnosis: Other myositis, multiple sites[ICD10: M60.89] Diagnosis: Hypothyroidism, unspecified[ICD10: E03.9] Meghana Maya MD, [facility] CPT-4: 31977 08/04/2015 23875 EST. PATIENT, LEVEL III Diagnosis: Dyspnea, unspecified[ICD10: R06.00] Diagnosis: Essential (primary) hypertension[ICD10: I10] Meghana Maya MD [facility] CPT-4: 72900 05/16/2015 ([id number]) 10474 EST. PATIENT, LEVEL II Diagnosis: Dyspnea, unspecified[ICD10: R06.00] Meghana Maya MD, [facility] CPT-4: 41132 05/12/2015 ([id number]) OFFICE VISIT, NEW - LEVEL 4 Diagnosis: Essential (primary) hypertension[ICD10: I10] Diagnosis: Impaired fasting glucose[ICD10: R73.01] Diagnosis: Mixed hyperlipidemia[ICD10: E78.2] Diagnosis: Hypothyroidism, unspecified[ICD10: E03.9] Diagnosis: Encounter for screening mammogram for malignant neoplasm of breast[ ICD10: Z12.31] Catie Maya MD, [facility] CPT-4: 30608 04/21/2015 Plan of Care Planned Activity Notes Codes Status Date Visit Plan: URI - Pt advised to increase fluids, vitamin C. Discussed natural and expected course of this diagnosis and need to alert me if symptoms do not follow expected course, or if any worse. RX sent to patient' s pharmacy. 06/22/2017 Appointment: Britney Bower WPtel: [phone] [facility] (15 min) Moderate 06/22/2017 Patient Education: [...] allergy spray. 03/02/2017 Appointment: Britney Bower WPtel: [facility] (10 min) Simple 03/02/2017 Patient Education: Patient Medication Summary Completed 03/02/2017 Patient Education: Obesity Completed 03/02/2017 Visit Plan: Sinusitis - Pt has acute infection - pain in face, maxillary region, Pt informed to use decongestant, RX given to patient, sinus rinses also recommended. Call if symptoms do not show improvement. 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 Maya - will increase clonidine to BID - pt is to consider referral to dermatology - notify clinic if symptoms do not improve, if they worsen, or with any other questions or concerns. 01/24/2017 Appointment: Britney Bower WPtel: [facility] [place] (30 min) Complex 01/24/2017 Patient Education: Patient [...] improvement. 10/13/2016 [phone] [place] ([facility] min) Complex 10/13/2016 Patient Education: [...] change in blood pressure readings at home. 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 07/02/2016 App[facility]ment[phone] [facility] ([facility] min) Complex 07/02/2016 Patient Education: Patient [...] control. 06/24/2016 App[facility]ment[phone] [facility] (30 min) Complex 06/24/2016 Patient Education: Patient Medication Summary Completed 06/24/2016 Patient Education: Obesity Completed 06/24/2016 Patient Education: Hypertension Completed 06/24/2016 Patient Education: Patient Medication Summary Completed 05/14/2016 Care Plan: [facility]MO[facility]APHY[facility] : 41670-9 Pending 05/14/2016 Visit Plan: Hypertension - well [...] painful. 05/04/2016 App[facility]ment[phone] [facility] [place] (15 min) Moderate 05/04/2016 Patient Education: [...] medication. 04/06/2016 Appointment: [phone] [facility] (15 min) Moderate 04/06/2016 Patient Education: Patient Medication Summary Completed 04/06/2016 Patient Education: Obesity Completed 04/06/2016 Care Plan: Referral Order SNOMED-CT : [id number] Pending 04/06/2016 Visit Plan: Edema-improved with lower [...] acute concerns. 03/18/2016 [phone] [phone] [place] (15 min) Moderate 03/18/2016 Patient Education: [...] xray left foot-recommend she follow up with fugitive investigator at regarding left foot pain/numbness/weakness. Patient has noticed worsening symptoms since decreasing prednisone. 03/11/2016 Appointment: Catie Shoemaker WPtel: [phone] [phone] (15 min) Moderate 03/11/2016 Patient Education: Patient Medication Summary Completed 03/11/2016 Patient Education: Obesity Completed 03/11/2016 Appointment: Catie Shoemaker WPtel: [phone] [phone] (30 min) Complex 03/09/2016 Visit Plan: [...] daily 02/24/2016 Appointment: Catie Shoemaker WPtel: [phone] [phone] [place] (15 min) Moderate 02/24/2016 Patient Education: Patient Medication Summary Completed 02/24/2016 Patient Education: Obesity Completed 02/24/2016 Patient Education: Hypertension Completed 02/24/2016 Appointment: Meghana Maya WPtel: [phone] [facility] [place] (15 min) Moderate 02/23/2016 Visit Plan: [...] of control. 12/16/2015 Appointment: Meghana Maya WPtel: [facility] [place] (15 min) Moderate 12/16/2015 Patient Education: [...] 10/30/2015 Appointment: (30 min) Complex 10/23/2015 Appointment: Thornton Meghana WPtel: [phone] [facility] (15 min) Moderate 10/23/2015 Visit Plan: Hypertension [...] home. 09/10/2015 Appointment: Meghana Maya WPtel: [phone] [facility] (15 min) Moderate 09/10/2015 Patient Education: Patient [...] min) Complex 07/24/2015 Appointment: [facility] [phone] [facility] (15 min) Moderate 07/24/2015 Appointment: Lab Draw [...] Completed 04/21/2015 Care Plan: SCREENINGMAMMOGRAPHYDIGITAL LOINC : 01680-5 Ordered 04/21/2015 Appointment: ZulmaMeghana [facility]el[facility] [phone] [facility] [place] ([place] New Patient 04/01/2015 Referral: Sharon [...] VQ scan negative DR. 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 RX sent to patient's pharmacy. DX sinusitis - discussed expected course with [...] previous levels of control. . Hypertension - uncontrolled - the patient's [...] change in blood pressure readings at home. 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 Maya - will increase clonidine to BID - pt is to consider referral to dermatology - notify clinic if symptoms do not improve, if they worsen, or with any other questions or concerns. probiotic - gracielokeshe [employer], probiotic pearls, etc - take three times [...]
--- OUTSIDE RECORDS SUMMARY | 2018-09-30 13:54 | XMS REPORT | CCD ---
Author Author Catie Shoemaker MD, [facility] Address [address] [place] [address] Phone Care Team Providers Care Hog Buyer Name Role Phone PP Unavailable CCM Unavailable Summary Purpose Interface Exchange Insurance Providers Payer name Policy type / Coverage type Covered libertarian ID Effective Begin Date Effective End Date [facility] [id number] Unknown Family history Mother Diagnosis Age At Onset Hypertension Unknown Breast cancer Unknown Osteoporosis Unknown Father Diagnosis Age At Onset kidney disease Unknown Cancer Unknown Hyperlipidemia Unknown Social History Social History Element Codes Description Effective Dates Marital status Unknown 04/21/2015 Number of children Unknown 1 04/21/2015 Employment 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 04/21/[address]: 458552420 Never smoker 04/21/2015 Alcohol history Unknown occasionally drinks alcohol 04/21/2015 Allergies, Adverse Reactions, Alerts Substance Reaction Codes Entered Date Inactivated Date Status RRMULAM-VNT-PJU REDUCTASE INHIBITORS myalgias Unknown 2015 No Inactive [...] Fill Instructions Tamiflu 75 mg capsule RxNorm: 571520 1 Capsule(s) PO BID 201606/26/2017 Inactive Kenalog 40 mg/mL suspension for injection RxNorm: 7846248 1.5 Milliliter(s) Inj 06/22/2017 06/22/2017 Inactive clonidine HCl 0.1 mg tablet RxNorm: 150210 TAKE ONE TABLET BY MOUTH TWICE A DAY 06/06/2017 12/02/2017 Active potassium chloride ER 10 mEq tablet,extended release RxNorm: 792946 TAKE ONE TABLET BY MOUTH DAILY 06/06/20172017 Active venlafaxine ER 150 mg capsule,extended release 24 hr RxNorm: 867936 TAKE ONE CAPSULE BY MOUTH DAILY 05/23/20172017 Active Zithromax 500 mg tablet RxNorm: 111504 1 Tablet(s) PO daily 05/22/2017 Inactive potassium chloride ER 10 mEq tablet,extended release RxNorm: 729991 TAKE ONE TABLET BY MOUTH DAILY 04/21/20172016 Inactive potassium chloride ER 10 mEq tablet,extended release RxNorm: 756268 TAKE ONE TABLET BY MOUTH DAILY 03/16/20172016 Inactive Zithromax Z-Jacek 250 mg tablet RxNorm: 605232 1 Tablet(s) PO UD 03/02/2017 06/21/2017 Inactive venlafaxine ER 150 mg capsule,extended release 24 hr RxNorm: 280569 TAKE ONE CAPSULE BY MOUTH DAILY 02/17/20172017 Active venlafaxine ER 150 mg capsule,extended release 24 hr RxNorm: 245127 Capsule(s) TAKE ONE CAPSULE BY MOUTH DAILY 02/17/2017 02/16/2017 Inactive clonidine HCl 0.1 mg tablet RxNorm: 660184 TAKE ONE TABLET BY MOUTH EVERY NIGHT AT BEDTIME 02/14/2017 05/14/2017 Inactive metoprolol succinate ER 50 mg tablet,extended release 24 hr RxNorm: 521746 TAKE ONE TABLET BY MOUTH DAILY 02/14/201708/12 Active Protonix 40 mg tablet,delayed release RxNorm: 858293 TAKE ONE TABLET BY MOUTH DAILY WHILE ON PREDNISONE 01/25/201706/23 Inactive Zithromax Z-Jacek 250 mg tablet RxNorm: 089854 1 Tablet(s) PO UD 01/24/2017 No Stop Date Active potassium chloride ER 10 mEq tablet,extended release RxNorm: 034429 TAKE ONE TABLET BY MOUTH DAILY 01/17/20172016 Inactive clonidine HCl 0.1 mg tablet RxNorm: 675848 TAKE ONE TABLET BY MOUTH EVERY NIGHT AT BEDTIME 01/17/2017 02/13/2017 Inactive potassium chloride ER 10 mEq tablet,extended release RxNorm: 568934 TAKE ONE TABLET BY MOUTH DAILY 12/16/20162016 Inactive venlafaxine ER 150 mg capsule,extended release 24 hr RxNorm: 395666 TAKE ONE CAPSULE BY MOUTH DAILY 11/18/20162016 Inactive clonidine HCl 0.1 mg tablet RxNorm: 604704 TAKE ONE TABLET BY MOUTH EVERY NIGHT AT BEDTIME 11/08/2016 01/06/2017 Inactive clonidine HCl 0.1 mg tablet RxNorm: 591850 1 Tablet(s) BID 01/16/2017 Inactive potassium chloride ER 10 mEq tablet,extended release RxNorm: 861976 TAKE ONE TABLET BY MOUTH DAILY 10/15/20162016 Inactive Zithromax Z-Jacek 250 mg tablet RxNorm: 693585 1 Tablet(s) PO UD 10/13/2016 No Stop Date Active potassium chloride ER 10 mEq tablet,extended release RxNorm: 039204 TAKE ONE TABLET BY MOUTH DAILY 10/12/20162016 Inactive potassium chloride ER 10 mEq tablet,extended release RxNorm: 163888 Tablet(s) BID TAKE ONE TABLET BY MOUTH TWICE DAILY 09/17/2016 10/11/2016 Inactive potassium chloride ER 10 mEq tablet,extended release RxNorm: 355677 TAKE ONE TABLET BY MOUTH DAILY 09/13/20162016 Inactive clonidine HCl 0.1 mg tablet RxNorm: 257162 Tablet(s) TAKE ONE TABLET BY MOUTH EVERY NIGHT AT BEDTIME 08/12/20162016 Inactive gabapentin 300 mg capsule RxNorm: 238120 1 Capsule(s) PO Q No Stop Date Active venlafaxine ER 150 mg capsule,extended release 24 hr RxNorm: 843711 TAKE ONE CAPSULE BY MOUTH DAILY 08/09/20162016 Inactive metoprolol succinate ER 50 mg tablet,extended release 24 hr RxNorm: 943206 TAKE ONE TABLET BY MOUTH DAILY 07/29/201601/24 Inactive clonidine HCl 0.1 mg tablet RxNorm: 278339 TAKE ONE TABLET BY MOUTH EVERY NIGHT AT BEDTIME 07/21/2016 08/11/2016 Inactive potassium chloride ER 10 mEq tablet,extended release RxNorm: 952331 TAKE ONE TABLET BY MOUTH DAILY 07/14/20162016 Inactive Prescriber not associated with this practice or location capsaicin 0.1 % topical cream RxNorm: 554850 1 Application TOP TID as needed 07/02/2016 No Stop Date Active acyclovir 400 mg tablet RxNorm: 509435 2 Tablet(s) PO QID 07/0207/11/2016 Inactive cyclobenzaprine 5 mg tablet RxNorm: 743680 1-2 Tablet(s) PO TID as needed 07/02/2016 07/06/2016 Inactive Protonix 40 mg tablet,delayed release RxNorm: 848537 TAKE ONE TABLET BY MOUTH DAILY WHILE ON PREDNISONE 06/29/201612/25 Inactive clonidine HCl 0.1 mg tablet RxNorm: 071580 1 Tablet(s) PO QHS 06/25/2016 07/20/2016 Inactive calcium carbonate 500 mg calcium (1,250 mg) tablet RxNorm: 068496 TAKE ONE TABLET BY MOUTH DAILY WHILE ON PREDNISONE. MAY STOP TAKING WHEN PREDNISONE IS COMPLETE 06/01/2016 09/28/2016 Inactive Vitamin D3 1,000 unit tablet RxNorm: 778010 1 Tablet(s) PO daily . May stop taking once prednisone is complete. 04/26/2016 10/22/2016 Inactive metoprolol succinate ER 50 mg tablet,extended release 24 hr RxNorm: 491892 1.5 Tablet(s) PO daily 04/06/2016 06/23/2016 Inactive prednisone 10 mg tablet RxNorm: 463606 1 Tablet(s) PO daily 12/201506/21/2017 Inactive metoprolol succinate ER 50 mg tablet,extended release 24 hr RxNorm: 962219 1 Tablet(s) PO daily 03/18/2016 04/05/2016 Inactive amlodipine 10 mg tablet RxNorm: 629678 1/2 Tablet(s) PO daily 02/24/2016 06/21/2016 Inactive metoprolol succinate ER 25 mg tablet,extended release 24 hr RxNorm: 479116 1 Tablet(s) PO daily 02/24/2016 03/16/2016 Inactive calcium carbonate 500 mg calcium (1,250 mg) tablet RxNorm: 884023 TAKE ONE TABLET BY MOUTH DAILY WHILE ON PREDNISONE. MAY STOP TAKING WHEN PREDNISONE IS COMPLETE 02/16/2016 05/15/2016 Inactive Protonix 40 mg tablet,delayed release RxNorm: 714889 TAKE ONE TABLET BY MOUTH DAILY WHILE ON PREDNISONE 02/10/201605/09 Inactive venlafaxine ER 150 mg capsule,extended release 24 hr RxNorm: 374866 Capsule(s) TAKE ONE CAPSULE BY MOUTH DAILY 12/10/2015 04/07/2016 Inactive levothyroxine 50 mcg tablet RxNorm: 419972 1 Tablet(s) PO daily 12/01/2015 11/24/2016 Inactive calcium carbonate 500 mg calcium (1,250 mg) tablet RxNorm: 916035 1 Tablet(s) PO daily 12/01/2015 01/29/2016 Inactive Vitamin D3 1,000 unit tablet RxNorm: 075303 1 Tablet(s) PO daily 12/01/2015 03/29/2016 Inactive amlodipine 10 mg tablet RxNorm: 843028 1 Tablet(s) PO daily 11/18/2015 Inactive amlodipine 10 mg tablet RxNorm: 303069 1 Tablet(s) PO daily 02/23/2016 Inactive amlodipine 5 mg tablet RxNorm: 511990 1 Tablet(s) PO daily 11/18/2015 Inactive venlafaxine ER 150 mg capsule,extended release 24 hr RxNorm: 593393 TAKE ONE CAPSULE BY MOUTH DAILY 11/13/20152015 Inactive Protonix 40 mg tablet,delayed release RxNorm: 656029 1 Tablet(s) PO daily while on prednisone 2015 02/09/2016 Inactive prednisone 10 mg tablet RxNorm: 997660 2 Tablet(s) PO UD 201504/01/2016 Inactive 60mg for 2 days, then 50mg for 2 days, then 40mg for 2 days, then 30mg for 2 days, then 20mg for 2 days, then 10mg for 2 days, then 5mg for 2 days potassium chloride ER 10 mEq tablet,extended release RxNorm: 618897 TAKE ONE TABLET BY MOUTH DAILY 09/22/20152015 Inactive venlafaxine ER 150 mg capsule,extended release 24 hr RxNorm: 065954 TAKE ONE CAPSULE BY MOUTH DAILY 09/08/20152015 Inactive cefdinir 300 mg capsule RxNorm: 366219 1 Capsule(s) PO BID 08/22/2015 Inactive cefdinir 300 mg capsule RxNorm: 692936 1 Capsule(s) PO BID 08/18/2015 Inactive Kenalog 40 mg/mL suspension for injection RxNorm: 8812861 1 Milliliter(s) Inj 08/04/2015 08/04/2015 Inactive triamterene 37.5 mg-hydrochlorothiazide 25 mg tablet RxNorm: 401164 1 Tablet(s) PO BID 06/17/2015 08/03/2015 Inactive potassium chloride ER 10 mEq tablet,extended release RxNorm: 669358 1 Tablet(s) PO daily 05/30/2015 08/03/2015 Inactive Levaquin 250 mg tablet RxNorm: 351743 Tablet(s) PO UD 500 mg day one, then 250 mg day 2-7 05/27/2015 08/03/2015 Inactive prednisone 10 mg tablet RxNorm: 417719 Tablet(s) PO UD 201410/29/2015 Inactive 60mg for 2 days, then 50mg for 2 days, then 40mg for 2 days, then 30mg for 2 days, then 20mg for 2 days, then 10mg for 2 days, then 5mg for 2 days albuterol sulfate 1.25 mg/3 mL solution for nebulization RxNorm: 321630 3 Milliliter(s) INH Q4-6H as needed dyspnea 05/23/2015 No Stop Date Active Zithromax 500 mg tablet RxNorm: 833193 1 Tablet(s) PO daily 05/15/2015 Inactive Zithromax 500 mg tablet RxNorm: 065971 1 Tablet(s) PO daily 05/20/2015 Inactive prednisone 20 mg tablet RxNorm: 608951 3 Tablet(s) PO daily 05/16/2015 Inactive venlafaxine ER 150 mg capsule,extended release 24 hr RxNorm: 472739 TAKE ONE CAPSULE BY MOUTH DAILY 05/12/20152015 Inactive Keflex 500 mg capsule RxNorm: 218390 1 Capsule(s) PO TID 201405/18/2015 Inactive simvastatin 20 mg tablet RxNorm: 580104 1 Tablet(s) PO daily 04/09/2015 Inactive simvastatin 20 mg tablet RxNorm: 862241 1 Tablet(s) PO daily 08/11/2015 Inactive venlafaxine ER 150 mg capsule,extended release 24 hr RxNorm: 175030 TAKE ONE CAPSULE BY MOUTH DAILY 04/08/20152014 Inactive amlodipine 5 mg tablet RxNorm: 540381 1 Tablet(s) PO daily 04/201503/06/2015 Inactive amlodipine 5 mg tablet RxNorm: 979023 1 Tablet(s) PO daily 04/201507/04/2015 Inactive venlafaxine ER 150 mg capsule,extended release 24 hr RxNorm: 436623 1 Capsule(s) PO daily 01/29/2015 03/29/2015 Inactive metoprolol succinate ER 50 mg tablet,extended release 24 hr RxNorm: 771514 1 Tablet(s) PO daily No Start Date Active vitamin B complex oral RxNorm: 09466 oral No Start Date Active Co Q-10 oral RxNorm: 71905 oral No Start Date Active albuterol sulfate 1.25 mg/3 mL solution for nebulization RxNorm: 947063 3 Milliliter(s) INH Q4-6H as needed dyspnea No Start Date 05/22/2015 Inactive levothyroxine 50 mcg tablet RxNorm: 866240 1 Tablet(s) PO daily No Start Date 11/30/2015 Inactive gabapentin 300 mg capsule RxNorm: 880843 1 Capsule(s) PO QHS No Start Date 08/09/2016 Inactive Vitamin D3 1,000 unit tablet RxNorm: 924520 1 Tablet(s) PO daily No Start Date 11/30/2015 Inactive Protonix 40 mg tablet,delayed release RxNorm: 595111 1 Tablet(s) PO daily while on prednisone No Start Date 10/30/2015 Inactive calcium carbonate oral RxNorm: oral No Start Date 11/30/2015 Inactive potassium chloride ER 10 mEq tablet,extended release RxNorm: 630077 1 Tablet(s) PO daily No Start Date 05/29/2015 Inactive Levaquin 250 mg tablet RxNorm: 719159 Tablet(s) PO UD 500 mg day one, then 250 mg day 2-7 No Start Date 05/26/2015 Inactive triamterene 37.5 mg-hydrochlorothiazide 25 mg tablet RxNorm: 651477 1 Tablet(s) PO BID No Start Date 06/16/2015 Inactive prednisone 10 mg tablet RxNorm: 424191 Tablet(s) PO UD No Start Date 05/26/2015 Inactive 60mg for 2 days, then 50mg for 2 days, then 40mg for 2 days, then 30mg for 2 days, then 20mg for 2 days, then 10mg for 2 days, then 5mg for 2 days venlafaxine ER 150 mg capsule,extended release 24 hr RxNorm: 455930 1 Capsule(s) PO daily No Start Date 01/28/2015 Inactive Medication Administered Medication Codes Instructions Start Date Status Kenalog 40 mg/mL suspension for injection RxNorm: 6346362 1.5Milliliter 06/22/2017 No longer Active Kenalog 40 mg/mL suspension for injection RxNorm: 8354165 1Milliliter 08/04/2015 No longer Active Immunizations No [...] Item Code Result Date C A/B FLU 9225612 Influenza A Scr Negative 06/22/2017 C A/B FLU 0301740 Influenza B Scr Negative 06/22/2017 C A/B FLU 7578591 Influenza Intrp B AG: PRID:PT:NOSE:NOM:IF See Footnote 06/22/2017 Comp Metabolic Nsk489 NA 140 mEq/L 08/30/2016 Comp Metabolic Xbn422 K 3.3 mEq/L 08/30/2016 Comp Metabolic Orn569 CL 104 mEq/L 08/30/2016 Comp Metabolic Ptv626 CO2 26.0 mEq/L 08/30/2016 Comp Metabolic Woz810 ANION GAP 13 08/30/2016 Comp Metabolic Eph150 GLUCOSE 143 mg/dL 08/30/2016 Comp Metabolic Clw426 Creat 1.3 mg/dL 08/30/2016 Comp Metabolic Wtf117 eGFR 43 ml/min/1.73m2 08/30/2016 Comp Metabolic Fko478 BUN 19 mg/dL 08/30/2016 Comp Metabolic Riy035 B/C Ratio 14.3 Ratio 08/30/2016 Comp Metabolic Dst704 CALCIUM 10.0 mg/dL 08/30/2016 Comp Metabolic Mtl546 ALK PHOS 67 U/L 08/30/2016 Comp Metabolic Pyf734 AST(SGOT) 28 U/L 08/30/2016 Comp Metabolic Mop167 ALT(SGPT) 43 U/L 08/30/2016 Comp Metabolic Gpz878 BILI T 0.4 mg/dL 08/30/2016 Comp Metabolic Kyh975 ALBUMIN 4.0 g/dL 08/30/2016 Comp Metabolic Hzf477 TPRO 6.2 g/dL 08/30/2016 Comp Metabolic Eay317 GLOB 2.2 g/dL 08/30/2016 Comp Metabolic Twy090 A/G Ratio 1.8 Ratio 08/30/2016 Comp Metabolic Kzv221 Osmo 284 mOsmo 08/30/2016 %Hba1C Fim406 % HbA1c 41588-0 6.1 % 08/30/2016 %Hba1C Juo107 Gluc Ave 128 mg/dL 08/30/2016 Free T4 Rql102 FREE T4 0.75 ng/dL 06/25/2016 Tsh Ord6 [...] Ord90 Mag 2.1 mg/dL 12/16/2015 Free T4 Kcg237 FREE T4 0.92 ng/dL 12/16/2015 Tsh Ord6 [...] 28.5 pg 08/04/2015 Cbc With Differential Ord2 Smyth% 6.1 % 08/04/2015 Cbc With Differential Ord2 [...] 0.73 K/ul 08/04/2015 Cbc With Differential Ord2 Smyth ABS# 0.5 K/ul 08/04/2015 Cbc With Differential Ord2 Eos ABS# 0.1 K/ul 08/04/2015 Cbc With Differential Ord2 Baso ABS# 0.0 K/ul 08/04/2015 Cbc With Differential Ord2 New Analyzer Notice Please note new ref ranges starting 07-09-2015 due to implemntation of new five part differential hematolgy analyzer. 08/04/2015 C-Reactive Protein Qnt Crqnt CRP 0.8 mg/dl 08/04/2015 Comp Metabolic Cva307 NA 139 mEq/L 08/04/2015 Comp Metabolic Rfb221 K 3.4 mEq/L 08/04/2015 Comp Metabolic Fks772 CL 109 mEq/L 08/04/2015 Comp Metabolic Dbb949 CO2 22.0 mEq/L 08/04/2015 Comp Metabolic Psw493 ANION GAP 11 08/04/2015 Comp Metabolic Qux522 GLUCOSE 177 mg/dL 08/04/2015 Comp Metabolic Chn601 Creat 1.0 mg/dL 08/04/2015 Comp Metabolic Ffj368 eGFR 64 ml/min/1.73m2 08/04/2015 Comp Metabolic Wye891 BUN 35 mg/dL 08/04/2015 Comp Metabolic Qrs237 B/C Ratio 36.8 Ratio 08/04/2015 Comp Metabolic Isg478 CALCIUM 8.5 mg/dL 08/04/2015 Comp Metabolic Coy710 ALK PHOS 57 U/L 08/04/2015 Comp Metabolic Whx787 AST(SGOT) 21 U/L 08/04/2015 Comp Metabolic Jxz309 ALT(SGPT) 63 U/L 08/04/2015 Comp Metabolic Mfi554 BILI T 0.3 mg/dL 08/04/2015 Comp Metabolic Cjb614 ALBUMIN 3.1 g/dL 08/04/2015 Comp Metabolic Qyo040 TPRO 5.1 g/dL 08/04/2015 Comp Metabolic Aba352 GLOB 2.0 g/dL 08/04/2015 Comp Metabolic Bqp253 A/G Ratio 1.6 Ratio 08/04/2015 Comp Metabolic Nyl779 Osmo 290 mOsmo 08/04/2015 Cpk Ord61 CPK 52 U/L 08/04/2015 Random Urine Protein/Creatinine Ratio Agk1849 U Prot 8.5 mg/dl 05/27/2015 Random Urine Protein/Creatinine Ratio Abu6352 U CREAT 201.0 mg/dL 05/27/2015 Random Urine Protein/Creatinine Ratio Sji1859 R MTP/Creat Ratio 0.04 05/27/2015 Urinalysis Ord28 [...] 05/27/2015 Urinalysis Ord28 U-Yeast NEGATIVE 05/27/2015 Renal Zlc748 NA 136 mEq/L 05/26/2015 Renal Vck916 K 3.3 mEq/L 05/26/2015 Renal Bgz584 CL 99 mEq/L 05/26/2015 Renal Xzf099 CO2 25.0 mEq/L 05/26/2015 Renal Lah759 ANION GAP 15 05/26/2015 Renal Dht168 Osmo 274 mOsmo 05/26/2015 Renal Iah282 GLUCOSE 106 mg/dL 05/26/2015 Renal Oov867 BUN 17 mg/dL 05/26/2015 Renal Dhm586 Creat 1.4 mg/dL 05/26/2015 Renal Fnp122 eGFR 40 ml/min/1.73m2 05/26/2015 Renal Nlz093 B/C Ratio 12.0 Ratio 05/26/2015 Renal Nrb162 CALCIUM 9.3 mg/dL 05/26/2015 Renal Syw530 PHOS 3.4 mg/dL 05/26/2015 Renal Zwg649 ALBUMIN 3.4 g/dL 05/26/2015 Cbc With Differential [...] Ord2 RDW 14.3 % 04/21/2015 Free T4 Aog943 FREE T4 0.91 ng/dL 04/21/2015 %Hba1C Cno327 % HbA1c 00379-0 5.8 % 04/21/2015 %Hba1C Wgg844 Gluc Ave 120 mg/dL 04/21/2015 Comp Metabolic Kzr947 NA 137 mEq/L 04/21/2015 Comp Metabolic Uas415 K 3.6 mEq/L 04/21/2015 Comp Metabolic Sma761 CL 98 mEq/L 04/21/2015 Comp Metabolic Saz377 CO2 25.0 mEq/L 04/21/2015 Comp Metabolic Oqv569 ANION GAP 18 04/21/2015 Comp Metabolic Ffq940 GLUCOSE 83 mg/dL 04/21/2015 Comp Metabolic Fqv388 Creat 1.6 mg/dL 04/21/2015 Comp Metabolic Apf673 eGFR 36 ml/min/1.73m2 04/21/2015 Comp Metabolic Yja964 BUN 28 mg/dL 04/21/2015 Comp Metabolic Vrx625 B/C Ratio 17.9 Ratio 04/21/2015 Comp Metabolic Krc067 CALCIUM 9.5 mg/dL 04/21/2015 Comp Metabolic Jyk222 ALK PHOS 60 U/L 04/21/2015 Comp Metabolic Wyu751 AST(SGOT) 22 U/L 04/21/2015 Comp Metabolic Rrh986 ALT(SGPT) 10 U/L 04/21/2015 Comp Metabolic Agp439 BILI T 0.4 mg/dL 04/21/2015 Comp Metabolic Dzu537 ALBUMIN 4.0 g/dL 04/21/2015 Comp Metabolic Mnu523 TPRO 6.8 g/dL 04/21/2015 Comp Metabolic Ipe950 GLOB 2.8 g/dL 04/21/2015 Comp Metabolic Fqf268 A/G Ratio 1.4 Ratio 04/21/2015 Comp Metabolic Tsv378 Osmo 278 mOsmo 04/21/2015 Tsh Ord6 hTSH [...] Procedure Codes Date THER/PROPH/DIAG INJ SC/IM CPT-4: 92497 06/22/2017 TRIAMCINOLONE ACET INJ NOS CPT-4: J3301 06/22/2017 THER/PROPH/DIAG INJ SC/IM CPT-4: 12323 08/04/2015 TRIAMCINOLONE ACET INJ NOS CPT-4: J3301 08/04/2015 Vital Signs Date Vital 06/22/2017 Blood Pressure 1: 168/92 Code : 8480-6 BMI: 32.6 Code : 78845-1 Heart Rate 1 : 133 bpm Height: 5'1" SpO2: 97% Temperature: 37.6 (C) / 99.7 (F) Weight: 172 lbs 8 oz 03/02/2017 Blood Pressure 1: 168/90 Code : 8480-6 BMI: 35.0 Code : 22015-3 Heart Rate 1 : 80 bpm Height: 5'1" SpO2: 94% Weight: 185 lbs 01/24/2017 Blood Pressure 1: 130/68 Code : 8480-6 BMI: 35.3 Code : 96864-6 Heart Rate 1 : 66 bpm Height: 5'1" SpO2: 98% Weight: 187 lbs 10/13/2016 Blood Pressure 1: 136/74 Code : 8480-6 BMI: 35.1 Code : 11057-3 Heart Rate 1 : 71 bpm Height: 5'1" SpO2: 97% Weight: 186 lbs 08/30/2016 Blood Pressure 1: 128/80 Code : 8480-6 BMI: 35.0 Code : 61703-1 Heart Rate 1 : 75 bpm Height: 5'1" SpO2: 96% Weight: 185 lbs 8 oz 07/02/2016 Blood Pressure 1: 140/78 Code : 8480-6 Heart Rate 1: 63 bpm Height: 5'1" SpO2: 98% 06/24/2016 Blood Pressure 1: 148/100 Code: 8480-6 BMI: 34.2 Code: 52951-1 Heart Rate 1: 110 bpm Height : 5'1" SpO2: 94% Weight: 181 lbs 05/04/2016 Blood Pressure 1: 150/90 Code : 8480-6 Blood Pressure 1: 134/82 Code: 8480-6 BMI: 34.6 Code: 92578-4 Heart Rate 1: 74 bpm Height: 5'1" SpO2: 98% Weight: 183 lbs 04/06/2016 Blood Pressure 1: 156/92 Code : 8480-6 Blood Pressure 1: 158/88 Code: 8480-6 BMI: 34.8 Code: 65973-8 Heart Rate 1: 69 bpm Height: 5'1" SpO2: 97% Weight: 184 lbs 03/18/2016 Blood Pressure 1: 148/90 Code : 8480-6 BMI: 35.1 Code : 81540-4 Heart Rate 1 : 106 bpm Height: 5'1" SpO2: 94% Weight: 186 lbs 03/11/2016 Blood Pressure 1: 140/90 Code : 8480-6 BMI: 35.1 Code : 33876-1 Heart Rate 1 : 103 bpm Height: 5'1" SpO2: 96% Weight: 186 lbs 02/24/2016 Blood Pressure 1: 130/80 Code : 8480-6 BMI: 34.4 Code : 25525-0 Heart Rate 1 : 110 bpm Height: 5'1" SpO2: 96% Weight: 182 lbs 12/16/2015 Blood Pressure 1: 144/98 Code : 8480-6 BMI: 33.8 Code : 66320-2 Heart Rate 1 : 97 bpm Height: 5'1" SpO2: 98% Weight: 179 lbs 10/30/2015 Blood Pressure 1: 138/88 Code : 8480-6 BMI: 33.6 Code : 21807-3 Heart Rate 1 : 88 bpm Height: 5'1" SpO2: 98% Weight: 178 lbs 09/23/2015 Blood Pressure 1: 152/94 Code : 8480-6 BMI: 32.7 Code : 93299-2 Heart Rate 1 : 83 bpm Height: 5'1" SpO2: 97% Weight: 173 lbs 09/10/2015 Blood Pressure 1: 136/82 Code : 8480-6 BMI: 32.1 Code : 49373-5 Heart Rate 1 : 105 bpm Height: 5'1" SpO2: 97% Weight: 170 lbs 08/12/2015 Blood Pressure 1: 132/70 Code : 8480-6 BMI: 31.2 Code : 60714-8 Heart Rate 1 : 88 bpm Height: 5'1" SpO2: 95% Temperature: 36.7 (C) / 98.0 (F) Weight: 165 lbs 08/04/2015 Blood Pressure 1: 136/80 Code : 8480-6 BMI: 31.0 Code : 09184-0 Heart Rate 1 : 110 bpm Height: 5'1" SpO2: 98% Weight: 164 lbs 05/16/2015 Blood Pressure 1: 138/88 Code : 8480-6 BMI: 32.9 Code : 38139-3 Heart Rate 1 : 87 bpm Height: 5'1" SpO2: 90% Weight: 174 lbs 05/12/2015 BMI: 31.7 Code: 04831-5 Height: 5'1" Weight: 168 lbs 04/21/2015 Blood Pressure 1: 124/82 Code : 8480-6 BMI: 32.1 Code : 20791-0 Heart Rate 1 : 87 bpm Height: [...] R53.83] [facility] CPT-4 : 57842 06/22/201744007 EST. PATIENT, LEVEL IV Diagnosis: Acute laryngopharyngitis[ICD10: J06.0] Diagnosis: Other acute sinusitis[ICD10: J01.80] Diagnosis: Other allergic rhinitis[ICD10: J30.89] Britney Maya MD, [facility] CPT-4: 40169 03/02/2017 [id number] EST. PATIENT, LEVEL IV Diagnosis: Generalized hyperhidrosis[ICD10: R61] Diagnosis: Other acute sinusitis[ICD10: J01.80] Diagnosis: Other fatigue[ICD10: R53.83] Diagnosis: Interstitial pulmonary disease, unspecified[ICD10: J84.9] Britney Maya MD, [facility] CPT-4: 35204 01/24/2017 [id number] EST. PATIENT, LEVEL IV Diagnosis: Acute laryngopharyngitis[ICD10: J06.0] Diagnosis: Other acute sinusitis[ICD10: J01.80] Britney Maya MD, [facility] CPT-4: 59613 10/13/2016 ([id number]) 64737 EST. PATIENT, LEVEL IV Diagnosis: Essential (primary) hypertension[ICD10: I10] Diagnosis: Drug-induced polyneuropathy[ICD10: G62.0] Diagnosis: Impaired fasting glucose[ICD10: R73.01] Catie Maya MD, [facility] CPT-4: 18705 08/30/2016 91452 EST. PATIENT, LEVEL IV Diagnosis: Pain in thoracic spine[ICD10: M54.6] Diagnosis: Pain in left shoulder[ICD10: M25.512] Diagnosis: Zoster without complications[ICD10: B02.9] Britney Maya MD, [facility] CPT-4: 82782 07/02/2016 [id number] EST. PATIENT, LEVEL III Diagnosis: Other specified hypothyroidism[ICD10: E03.8] Diagnosis: Menopausal and female climacteric states[ICD10: N95.1] Diagnosis: Essential (primary) hypertension[ICD10: I10] Britney Maya MD, [facility] CPT-4: 79416 06/24/2016 ([id number]) 76319 EST. PATIENT, LEVEL IV Diagnosis: Essential (primary) hypertension[ICD10: I10] Diagnosis: Atrophy of thyroid (acquired)[ICD10: E03.4] Diagnosis: Pain in left foot[ICD10: M79.672] Meghana Maya MD, [facility] CPT-4: 94720 05/04/2016 ([id number]) 39661 EST. PATIENT, LEVEL IV Diagnosis: Essential (primary) hypertension[ICD10: I10] Diagnosis: Pain in left leg[ICD10: M79.605] Diagnosis: Pain in left foot[ICD10: M79.672] Diagnosis: Atrophy of thyroid (acquired)[ICD10: E03.4] Meghana Maya MD, [facility] CPT-4: 38154 04/06/2016 ([id number]) 47812 EST. PATIENT, LEVEL III Diagnosis: Essential (primary) hypertension[ICD10: I10] Diagnosis: Localized edema[ICD10: R60.0] Catie Maya MD, [facility] CPT-4: 27249 03/18/2016 ([id number]) 97250 EST. PATIENT, LEVEL III Diagnosis: Essential (primary) hypertension[ICD10: I10] Diagnosis: Pain in left foot[ICD10: M79.672] Catie Maya MD [facility] CPT-4: 57047 03/11/2016 ([id number]) 01489 EST. PATIENT, LEVEL III Diagnosis: Localized edema[ICD10: R60.0] Diagnosis: Essential (primary) hypertension[ICD10: I10] Catie Maya MD, [facility] CPT-4: 66627 02/24/2016 ([id number]) 28121 EST. PATIENT, LEVEL IV Diagnosis: Hypothyroidism, unspecified[ICD10: E03.9] Diagnosis: Essential (primary) hypertension[ICD10: I10] Meghana Maya MD, [facility] CPT-4: 91414 12/16/2015 ([id number]) 70486 EST. PATIENT, LEVEL III Diagnosis: Essential (primary) hypertension[ICD10: I10] Diagnosis: Hypothyroidism, unspecified[ICD10: E03.9] Meghana Maya MD, [facility] CPT-4: 17518 10/30/2015 ([id number]) 59124 EST. PATIENT, LEVEL IV Diagnosis: Diarrhea, unspecified[ICD10: R19.7] Diagnosis: Essential (primary) hypertension[ICD10: I10] Meghana Maya MD, [facility] CPT-4: 88596 09/23/2015 ([id number]) 79309 EST. PATIENT, LEVEL III Diagnosis: Essential (primary) hypertension[ICD10: I10] Diagnosis: Diarrhea, unspecified[ICD10: R19.7] Meghana Maya MD [facility] CPT-4: 95532 09/10/2015 ([id number]) 64991 EST. PATIENT, LEVEL III Diagnosis: Acute maxillary sinusitis, unspecified[ICD10: J01.00] Diagnosis: Myositis, unspecified[ICD10: M60.9] Meghana Maya MD [facility] CPT-4: 10360 08/12/2015 ([id number]) [id number] EST. PATIENT, LEVEL IV Diagnosis: Essential (primary) hypertension[ICD10: I10] Diagnosis: Pain in left leg[ICD10: M79.605] Diagnosis: Other myositis, multiple sites[ICD10: M60.89] Diagnosis: Hypothyroidism, unspecified[ICD10: E03.9] Meghana Maya MD, [facility] CPT-4: 66444 08/04/2015 [id number] EST. PATIENT, LEVEL III Diagnosis: Dyspnea, unspecified[ICD10: R06.00] Diagnosis: Essential (primary) hypertension[ICD10: I10] Meghana Maya MD [facility] CPT-4: 77793 05/16/2015 ([id number]) [id number] EST. PATIENT, LEVEL II Diagnosis: Dyspnea, unspecified[ICD10: R06.00] Meghana Maya MD, [facility] CPT-4: 08060 05/12/2015 ([id number]) OFFICE VISIT, NEW - LEVEL 4 Diagnosis: Essential (primary) hypertension[ICD10: I10] Diagnosis: Impaired fasting glucose[ICD10: R73.01] Diagnosis: Mixed hyperlipidemia[ICD10: E78.2] Diagnosis: Hypothyroidism, unspecified[ICD10: E03.9] Diagnosis: Encounter for screening mammogram for malignant neoplasm of breast[ ICD10: Z12.31] Catie Maya MD, [facility] CPT-4: 90018 04/21/2015 Plan of Care Planned Activity Notes Codes Status Date Visit Plan: URI - Pt advised to increase fluids, vitamin C. Discussed natural and expected course of this diagnosis and need to alert me if symptoms do not follow expected course, or if any worse. RX sent to patient' s pharmacy. 06/22/2017 Appointment: Britney Bower WPtel: [phone] [facility] (15 min) Moderate 06/22/2017 Patient Education: [...] allergy spray. 03/02/2017 Appointment: Britney Bower WPtel: [facility]5 [facility] (10 min) Simple 03/02/2017 Patient Education: Patient Medication Summary Completed 03/02/2017 Patient Education: Obesity Completed 03/02/2017 Visit Plan: Sinusitis - Pt has acute infection - pain in face, maxillary region, Pt informed to use decongestant, RX given to patient, sinus rinses also recommended. Call if symptoms do not show improvement. Interstitial pulmonary disease, fatigue - will complete paperwork for pt to come hot die picker - pt is to continue with her specialist at [facility] - Discussed with Dr. Maya - will increase clonidine to BID - pt is to consider referral to dermatology - notify clinic if symptoms do not improve, if they worsen, or with any other questions or concerns. 01/24/2017 Appointment: Britney Bower WPtel: [facility] [place] (30 min) Complex 01/24/2017 Patient [...] improvement. 10/13/2016 App[facility]ment: [phone] [place] (30 min) Complex 10/13/2016 Patient Education: [...] in blood pressure readings at home. Sweats/termite helper use of steroids-check Hgb A1C Peripheral neuropathy-improved with B12- seeing Dr Duran for tarsel tunnel syndrome 08/30/2016 Appointment: Catie Shoemaker WPtel: [phone] [place] (15 min) Moderate 08/30/2016 Patient Education: Patient Medication Summary Completed 08/30/2016 Patient Education: Obesity Completed 08/30/2016 Care Plan: %Hba1C LOINC : 92722-6 Ordered 08/30/2016 Care Plan: Comp Metabolic Ordered [...] contagious. 07/02/2016 Appointment: Brit[facility]el[phone] (30 min) Complex 07/02/2016 Patient Education: [...] control. 06/24/2016 Appointment: Brit[facility]el[phone] (30 min) Complex 06/24/2016 Patient Education: Patient Medication Summary Completed 06/24/2016 Patient Education: Obesity Completed 06/24/2016 Patient Education: Hypertension Completed 06/24/2016 Patient Education: Patient Medication Summary Completed 05/14/2016 Care Plan: SCREENINGMAMMOGRAPHYDIGITAL [facility] : 43288-1 Pending 05/14/2016 Visit Plan: Hypertension - well [...] [facility] ([facility] min) Moderate 04/06/2016 Patient Education: Patient Medication Summary Completed 04/06/2016 Patient Education: Obesity Completed 04/06/2016 Care Plan: Referral Order SNOMED-CT : [id number] Pending 04/06/2016 Visit Plan: Edema-improved with lower [...] acute concerns. 03/18/2016 Appointment: Catie Shoemaker [facility]Ptel[phone] [facility] [place] (15 min) Moderate 03/18/2016 Patient Education: [...] xray left foot-recommend she follow up with microfilming document preparer at regarding left foot pain/numbness/weakness. Patient has noticed worsening symptoms since decreasing prednisone. 03/11/2016 Appointment: Catie Shoemaker WPtel: [phone] [phone] (15 min) Moderate 03/11/2016 Patient Education: Patient Medication Summary Completed 03/11/2016 Patient Education: Obesity Completed 03/11/2016 Appointment: Catie Shoemaker WPtel: [phone] [phone] (30 min) Complex 03/09/2016 Visit Plan: [...] daily 02/24/2016 Appointment: Catie Shoemaker WPtel: [phone] [phone] [place] (15 min) Moderate 02/24/2016 Patient Education: Patient Medication Summary Completed 02/24/2016 Patient Education: Obesity Completed 02/24/2016 Patient Education: Hypertension Completed 02/24/2016 Appointment: Meghana Maya WPtel: [phone] [facility] [place] (15 min) Moderate 02/23/2016 Visit Plan: [...] of control. 12/16/2015 Appointment: Meghana Maya WPtel: [facility] [place] (15 min) Moderate 12/16/2015 Patient Education: [...] 10/30/2015 Appointment: (30 min) Complex 10/23/2015 Appointment: [place] Meghana WPtel: [phone] [facility] (15 min) Moderate 10/23/2015 Visit Plan: Hypertension [...] home. 09/10/2015 Appointment: Meghana Maya WPtel: [phone] [facility] (15 min) Moderate 09/10/2015 Patient Education: Patient [...] Complex 07/24/2015 Appointment: Meghana [facility]el[phone] (15 min) Moderate [...] Completed 04/21/2015 Care Plan: SCREENINGMAMMOGRAPHYDIGITAL LOINC : 31602-5 Ordered 04/21/2015 Appointment: ZulmaMehgana WPtel: [phone] [facility] [place] (S) New Patient 04/01/2015 Referral: Sharon [...] VQ scan negative DR. CROUCH IS THE CATCHER HELPER WHO SPECIALIZES IN FOOT AND ANKLE DISEASE AT [address] INCREASE THE METOPROLOL TO 1.5 PILLS [...] in blood pressure readings at home. Sweats/termite helper use of steroids-check Hgb A1C Peripheral neuropathy-improved with [id number] Dr Duran for tarsel tunnel syndrome PATIENT [...] xray left foot-recommend she follow up with microfilming document preparer at regarding left foot pain/numbness/weakness. Patient has [...] will complete paperwork for pt to come hot die picker - pt is to continue with her specialist at [facility] - Discussed with Dr. Maya - will increase clonidine to BID - pt is to consider referral to dermatology - notify clinic if symptoms do not improve, if they worsen, or with any other questions or concerns. probiotic - [email or web address], probiotic pearls, etc - take three [...]
--- NOTE | 2018-09-30 14:40 | NUR ---
ANTIBIOTICS: Zosyn - no changes, using adjusted bodywt to calculate CrCl, 22ml/min. No dose adjustments unless CrCl less than or equal to 20ml/min. Vancomycin - loading dose of 1500mg IV over 2 hours x 1, then 500mg every 24 hours x 2 days.
[2018-09-30] MEDS ORDERED: ONDANSETRON 4 MG/2 ML (SDV) Z0FRAN IV PRN (14:45)
[2018-09-30] MEDS ORDERED: VANCOMYCIN 1500 MG/NS 500 ML IVPB IV NR ×2 (14:45)
[2018-09-30] MEDS: NS IV 1000 ML 1,000 ML IV SCH ×2 (15:14→23:38)
[2018-09-30] MEDS ORDERED: NOREPINEPHRINE 4 MG/NS 250 ML DRIP IV SCH ×2 (15:30)
[2018-09-30 15:53] LABS: BILIRUBIN,URINE NEGATIVE (NEGATIVE); CLARITY,URINE SLIGHTLY CLOUDY; COLOR,URINE YELLOW; GLUCOSE, URINE (UA) NEGATIVE (NEGATIVE); KETONES,URINE NEGATIVE (NEGATIVE); LEUKOCYTE ESTERASE ,URINE 3+ (NEGATIVE); NITRITE,URINE NEGATIVE (NEGATIVE); PH,URINE 5 (5-9); PROTEIN,URINE 1+ (NEGATIVE); UROBILINOGEN,URINE NORMAL (NORMAL)
[2018-09-30 16:08] LABS: BACTERIA,URINE NEGATIVE /HPF; SQUAMOUS EPITHELIAL CELL,UR RARE /HPF
--- NOTE | 2018-09-30 16:12 | NUR ---
Carolann Angel] admitted to room 428-1, with an admitting diagnosis of severe sepsis , on 09/30/18 from ED via stretcher, accompanied by staff, and family. CAROLANN ANGEL introduced to surroundings, call light, bed controls, phone, TV, temperature control, lights, meal times, smoking policy, visitor policy, side rail policy, bathrooms and showers. Patient Rights given to patient in the handbook. CAROLANN ANGEL verbalizes understanding that [facility] is not responsible for the loss or damage to any personal effects or valuables that are kept in the patients possession during their hospitalization. The following Patient Care Plans were discussed with the : Discharge Planning, medications, pain management, and dehydration. CAROLANN ANGEL verbalizes understanding of Interdisciplinary Patient Education. Patient and/or family were informed about the Rapid Response Team and its purpose.
[2018-09-30] MEDS: methylPREDNISolone 40 MG/ML (Solu-MEDROL) VIAL IV SCH ×2 (17:50→23:38)
[2018-09-30] MEDS: PIPERACILLIN/TAZO 4.5 GM/NS 100 ML IV SCH ×2 (18:43)
[2018-09-30] MEDS ORDERED: RT-ALBUTEROL/IPRATROPIUM 3 ML (DUONEB) VIAL ONE (20:49)
[2018-10-01 00:05] VITALS: BP 141/63
[2018-10-01] MEDS: PIPERACILLIN/TAZO 4.5 GM/NS 100 ML IV SCH ×6 (02:18→17:57)
[2018-10-01 04:00] VITALS: BP 158/79
[2018-10-01 05:27] LABS: BASOPHILS % (AUTO) 0 % (0-10); EOSINOPHILS % (AUTO) 0 % (0-10); HEMATOCRIT 35 % (35-52); HEMOGLOBIN 11.1 G/DL (11.5-16.0); LYMPHOCYTES # (AUTO) 0.6 X 10^3 (1.0-4.0); LYMPHOCYTES % (AUTO) 6 % (12-44); MEAN CORPUSCULAR HEMOGLOBIN 28 PG (25-34); MEAN CORPUSCULAR HGB CONC 32 G/DL (32-36); MEAN CORPUSCULAR VOLUME 86 FL (80-99); MEAN PLATELET VOLUME 9.7 FL (7.4-10.4); MONOCYTES # (AUTO) 0.4 X 10^3 (0.0-1.0); MONOCYTES % (AUTO) 4 % (0-12); NEUTROPHILS # (AUTO) 10.2 X 10^3 (1.8-7.8); NEUTROPHILS % (AUTO) 91 % (42-75); PLATELET COUNT 287 10^3/uL (130-400); RED CELL DISTRIBUTION WIDTH 14.8 % (10.0-14.5); WHITE BLOOD COUNT 11.3 10^3/uL (4.3-11.0)
[2018-10-01 05:51] LABS: BILIRUBIN,TOTAL 0.2 MG/DL (0.1-1.0); CALCIUM 8.6 MG/DL (8.5-10.1); CREATININE SERUM 2.11 MG/DL (0.60-1.30); POTASSIUM 3.6 MMOL/L (3.6-5.0); TOTAL PROTEIN 5.2 GM/DL (6.4-8.2)
[2018-10-01] MEDS: methylPREDNISolone 40 MG/ML (Solu-MEDROL) VIAL IV SCH ×3 (05:54→17:57)
[2018-10-01] MEDS: NS IV 1000 ML 1,000 ML IV SCH ×2 (06:24→15:35)
--- NOTE | 2018-10-01 06:29 | Pulmonary Consultation ---
History of Present Illness History of Present Illness Date of Consultation 10/01/18 06:25 Date of Admission Allergies and Home Medications Allergies Coded Allergies: No Known Drug Allergies (Verified , 09/01/07) Home Medications Clonidine HCl 0.1 Mg Tablet, 0.1 MG PO DAILY, (Reported) Gabapentin 300 Mg Capsule, 300 MG PO HS, (Reported) Gabapentin 100 Mg Capsule, 100 MG PO DAILY, (Reported) Levothyroxine Sodium 50 Mcg Tablet, 50 MCG PO HS, (Reported) Metoprolol Succinate 50 Mg Tab.er.24h, 50 MG PO DAILY, (Reported) Metoprolol Succinate 50 Mg Tab.er.24h, 50 MG PO DAILY, (Reported) Mycophenolate Mofetil 500 Mg Tablet, 500 MG PO BID, (Reported) Potassium Chloride 10 Meq Tablet.er, 10 MEQ PO DAILY, (Reported) Venlafaxine HCl 150 Mg Cap.er.24h, 150 MG PO DAILY, (Reported) Past Ftwftkx-Ialawr-Bszgnt Hx Past Med/Social Hx: Reviewed and Corrections made Patient Social History Alcohol Use: Denies Use Recreational Drug Use: No Smoking Status: Never a Smoker 2nd Hand Smoke Exposure: No Recent Foreign Travel: No Contact w/Someone Who Travel: No Recent Infectious Disease Expo: No Recent Hopitalizations: Yes (CHILDBIRTH ONLY) Past Medical History Surgeries: Yes (ORAL WORK ONLY) Gallbladder Respiratory: Yes (inerstitial lung disease) Cardiac: Yes High Cholesterol, Hypertension Neurological: Yes Neuropathy Reproductive Disorders: No Genitourinary: Yes (HISTORY OF ACUTE RENAL FAILURE) Gastrointestinal: No (RECENT DIAHRREA) Gastroesophageal Reflux Musculoskeletal: Yes (polymyositis) Endocrine: Yes (OVERLAP SYNDROME) Hypothyroidsim HEENT: No Loss of Vision: Denies Hearing Impairment: Denies Cancer: No Psychosocial: Yes Anxiety Integumentary: No Blood Disorders: No Adverse Reaction/Blood Tranf: No Family Medical History No Pertinent Family Hx Sepsis Event Evaluation Height, Weight, BMI Height: 5'1.00" Weight: 170lbs. 0.0oz. 77.861979av; 32.1 BMI Method:Stated Exam Exam Vital Signs Date Time Temp Pulse Resp B/P (MAP) Pulse Ox O2 Delivery O2 Flow Rate FiO2 10/01/18 01:00 94 09/30/18 20:35 Room Air 09/30/18 19:35 98.5 82 18 132/80 (97) 93 Room Air 09/30/18 19:15 87 09/30/18 17:11 88 20 143/90 (107) 96 Room Air 09/30/18 16:41 86 18 153/84 (107) 98 Room Air 09/30/18 16:10 75 97 21 09/30/18 16:00 98.7 77 20 162/99 (120) 97 Room Air 09/30/18 15:47 77 17 162/89 (113) 98 Room Air 09/30/18 15:32 74 18 159/87 (111) 100 Room Air 09/30/18 15:29 75 09/30/18 15:17 76 16 147/86 (106) 98 Room Air 09/30/18 15:01 76 17 154/83 (106) 97 Room Air 09/30/18 14:46 76 16 161/92 (115) 99 Room Air 09/30/18 14:31 86 17 146/82 (103) 98 Room Air 09/30/18 14:16 75 18 141/87 (105) 98 Room Air 09/30/18 14:15 95 Room Air 09/30/18 14:05 98.2 77 20 142/69 95 Room Air 09/30/18 14:00 67 20 161/78 (105) 98 09/30/18 10:20 96.7 105 20 133/80 (97) 93 I & O 10/01/18 07:00 Intake Total 1120 ml Balance 1120 ml Height & Weight Height: 5'1.00" Weight: 170lbs. 0.0oz. 77.149780gy; 32.1 BMI Method:Stated General Appearance: No Apparent Distress, WD/WN HEENT: PERRL/EOMI, Normal ENT Inspection, Other (oropharynx somewhat dry) Neck: Normal Inspection Respiratory: No Accessory Muscle Use, No Respiratory Distress, Crackles ( bibasilar) Cardiovascular: Regular Rate, Rhythm, No Edema, No Murmur Capillary Refill: Less Than 3 Seconds Extremity: Normal Inspection, Non Tender, No Pedal Edema Neurologic/Psychiatric: Alert, Oriented x3, No Motor/Sensory Deficits, Normal Mood/Affect, turkey picker II-XII Norm as Tested Skin: Normal Color, Warm/Dry Results Lab Laboratory Tests 09/30/18 10:00 10/01/18 05:20 Assessment/Plan Assessment/Plan Severe sepsis with iatrogenic immunosuppression - afebrile since admission Pneumonia with atelectasis -Continue Zosyn, Vanco -Roy cultures Polymyositis -Follows with [facility] -IVF -Monitor HEYDI PEREZ DO Oct 01, 2018 06:29
[2018-10-01 08:00] VITALS: BP 172/77
[2018-10-01] MEDS: RT-ALBUTEROL/IPRATROPIUM 3 ML (DUONEB) VIAL INH SCH ×3 (09:06→18:44)
[2018-10-01] MEDS ORDERED: VENlafaxine XR 75 MG (EFFEXOR XR) CAP PO NR (11:30)
[2018-10-01] MEDS ORDERED: meTOproloL SUCCINATE 50 MG (TOPROL XL) TAB PO NR (11:30)
[2018-10-01] MEDS ORDERED: inSUlin ASPART (NovoLOG) 1 UNIT/0.01 ML (CHARGE PER UNIT) SC SCH (11:30)
[2018-10-01] MEDS ORDERED: ACETAMINOPHEN 325 MG TABLET PO PRN (11:30)
--- NOTE | 2018-10-01 11:31 | History & Physicial ---
History of Present Illness History of Present Illness Reason for visit/HPI This is a 62 year old female with a history of interstitial lung disease and polymyositis who recently started rituxan. She was at work and was very weak with pain in her legs, dizziness and sweats. She called her daughter who then called me and I instructed her to take her to the ER. The daughter reported that her kidney function has also been elevated recently and she was supposed to have that checked with Dr. Maya. The patient also reports that she has had loose stools since her rituxan dose. She was found to be septic with a WBC of 18.7 and an elevated creatinine of 2.5. She reports that her last creatinine was 1.7. She had a probable new infiltrate on CXR and she does admit that she has had some recent cough. She will be admitted for broad spectrum antibiotics, steroids and IV hydration. Pulmonology will be consulted. Date of Admission Sep 30, 2018 at 12:28 Date Seen by a Provider: Oct 01, 2018 Time Seen by a Provider: 09:40 I consulted on this patient on 10/01/18 11:26 Attending Physician Drea Brennan DO Admitting Physician Meghana Maya MD Consult Allergies and Home Medications Allergies Coded Allergies: No Known Drug Allergies (Verified , 09/01/07) Home Medications Clonidine HCl 0.1 Mg Tablet, 0.1 MG PO DAILY, (Reported) Gabapentin 300 Mg Capsule, 300 MG PO HS, (Reported) Gabapentin 100 Mg Capsule, 100 MG PO DAILY, (Reported) Levothyroxine Sodium 50 Mcg Tablet, 50 MCG PO HS, (Reported) Metoprolol Succinate 50 Mg Tab.er.24h, 50 MG PO DAILY, (Reported) Metoprolol Succinate 50 Mg Tab.er.24h, 50 MG PO DAILY, (Reported) Mycophenolate Mofetil 500 Mg Tablet, 500 MG PO BID, (Reported) Potassium Chloride 10 Meq Tablet.er, 10 MEQ PO DAILY, (Reported) Venlafaxine HCl 150 Mg Cap.er.24h, 150 MG PO DAILY, (Reported) Patient Home Medication List Home Medication List Reviewed: Yes Past Zdrzfbb-Dkymys-Ywobri Hx Patient Social History Alcohol Use: Denies Use Recreational Drug Use: No Smoking Status: Never a Smoker 2nd Hand Smoke Exposure: No Recent Foreign Travel: No Contact w/other who traveled: No Recent Hopitalizations: Yes (CHILDBIRTH ONLY) Recent Infectious Disease Expo: No Surgeries Yes (ORAL WORK ONLY) Gallbladder Respiratory Yes (inerstitial lung disease) Cardiovascular Yes High Cholesterol, Hypertension Neurological Yes Neuropathy Reproductive System Hx Reproductive Disorders: No Genitourinary Yes (HISTORY OF ACUTE RENAL FAILURE) Gastrointestinal No (RECENT DIAHRREA) Gastroesophageal Reflux Musculoskeletal Yes (polymyositis) Endocrine History of Endocrine Disorders: Yes (OVERLAP SYNDROME) Endocrine Disorders: Hypothyroidsim HEENT History of HEENT Disorders: No Loss of Vision: Denies Hearing Impairment: Denies Cancer No Psychosocial History of Psychiatric Problem: Yes Behavioral Health Disorders: Anxiety Integumentary History of Skin or Integumenta: No Blood Transfusions History of Blood Disorders: No Adverse Reaction to a Blood Tr: No Family Medical History Significant Family History: No Pertinent Family Hx Review of Systems Constitutional: diaphoresis, dizziness, weakness EENTM: No see HPI, No no symptoms reported, No ear discharge, No hearing loss, No ear pain, No blurred vision, No double vision, No eye pain, No tearing, No vision loss, No dental problems, No hoarseness, No mouth pain, No mouth swelling , No epistaxis, No nose congestion, No nose pain, No throat pain, No throat swelling, No other Respiratory: cough Cardiovascular: No no symptoms reported, No see HPI, No chest pain, No edema, No Hx of Intervention, No palpitations, No syncope, No vascular heart diseas, No other Gastrointestinal: diarrhea Genitourinary: frequency Musculoskeletal: muscle pain, muscle weakness Skin: No no symptoms reported, No see HPI, No change in color, No change in hair/nails, No dryness, No hx of skin cancer, No lesions, No lumps, No pruritus , No rash, No other Psychiatric/Neurological: Weakness Physical Exam Vital Signs Vital Signs - First Documented 09/30/18 09/30/18 09/30/18 10:20 14:05 16:10 Temp 96.7 Pulse 105 Resp 20 B/P (MAP) 133/80 (97) Pulse Ox 93 O2 Delivery Room Air FiO2 21 Capillary Refill : Less Than 3 Seconds Height, Weight, BMI Height: 5'1.00" Weight: 170lbs. 0.0oz. 77.919571yk; 32.1 BMI Method:Stated General Appearance: Mild Distress HEENT: Pharynx Normal Neck: Supple Respiratory: Crackles (bases), Decreased Breath Sounds Cardiovascular: Regular Rate, Rhythm, Systolic Murmur Gastrointestinal: Normal Bowel Sounds, Non Tender, Soft Rectal: Deferred Back: No CVA Tenderness Extremity: Non Tender, No Calf Tenderness, No Pedal Edema Neurologic/Psychiatric: Alert, Oriented x3 Skin: Warm/Dry Comments Laboratory Tests 09/30/18 11:42: Lactic Acid Level 2.63*H 09/30/18 13:58: Lactic Acid Level 1.43 09/30/18 15:45: Urine Color YELLOW, Urine Clarity SLIGHTLY CLOUDY, Urine pH 5, Urine Specific Dickens 1.010L, Urine Protein 1+H, Urine Glucose (UA) NEGATIVE, Urine Ketones NEGATIVE, Urine Nitrite NEGATIVE, Urine Bilirubin NEGATIVE, Urine Urobilinogen NORMAL, Urine Leukocyte Esterase 3+H, Urine RBC (Auto) NEGATIVE, Urine RBC NONE , Urine WBC 5-10H, Urine Squamous Epithelial Cells RARE, Urine Crystals NONE, Urine Bacteria NEGATIVE, Urine Casts NONE, Urine Mucus NEGATIVE, Urine Culture Indicated YES 10/01/18 05:20: White Blood Count 11.3H, Red Blood Count 4.01L, Hemoglobin 11.1#L, Hematocrit 35 , Mean Corpuscular Volume 86, Mean Corpuscular Hemoglobin 28, Mean Corpuscular Hemoglobin Concent 32, Red Cell Distribution Width 14.8H, Platelet Count 287, Mean Platelet Volume 9.7, Neutrophils (%) (Auto) 91H, Lymphocytes (%) (Auto) 6L , Monocytes (%) (Auto) 4, Eosinophils (%) (Auto) 0, Basophils (%) (Auto) 0, Neutrophils # (Auto) 10.2H, Lymphocytes # (Auto) 0.6L, Monocytes # (Auto) 0.4, Eosinophils # (Auto) 0.0, Basophils # (Auto) 0.0, Sodium Level 142, Potassium Level 3.6, Chloride Level 118#H, Carbon Dioxide Level 15L, Anion Gap 9, Blood Urea Nitrogen 28H, Creatinine 2.11H, Estimat Glomerular Filtration Rate 24, BUN/ Creatinine Ratio 13, Glucose Level 244H, Calcium Level 8.6, Corrected Calcium 9.4, Total Bilirubin 0.2, Aspartate Amino Transf (AST/SGOT) 14, Alanine Aminotransferase (ALT/SGPT) 9, Alkaline Phosphatase 70, Total Creatine Kinase 73 , Myoglobin 211.6H, Total Protein 5.2L, Albumin 3.0L Microbiology 09/30/18 Influenza Types A,B Antigen (KELLY) - Final, Complete Assessment/Plan Assessment and Plan 1. Sepsis--cover with broad spectrum abx until cultures back, sepsis protocol 2. Pneumonia--abx as above 3. Polymyositis--IV solumedrol given 4. Interstitial lung disease--oxygen, SVNS, IV solumedrol, treat pneumonia, add IS 5. Acute on Chronic Renal Failure--hydrate and monitor Cr 6. Dehydration--IVFs 7. Recent loose stools--check C. Diff 8. Hyperglycemia--check HbA1C and start accuchecks Admission Diagnosis Admission Status: Inpatient Order (span 2 midnights) Reason for Inpatient Admission: Will need IV abx until all final cultures back as well as IVFs until Cr improving back to baseline Clinical Quality Measures DVT/VTE Risk/Contraindication: Risk Factor Score Per Nursin RFS Level Per Nursing on Admit: 4+=Very High DREA BRENNAN DO Oct 01, 2018 11:31
--- NOTE | 2018-10-01 11:40 | NUR ---
DR VASQUEZ HERE, ORDERED TO GIVE LASIX 40MG IV NOW, DC IV FLUIDS AND GET ABG'S. O2 ON PER NC AT 2 LITERS, WHEEZES HEARD Addendum: 10/01/18 at 1144 by BETO AGUIRRE RN ABOVE ENTRY ON WRONG CHART
[2018-10-01 12:00] VITALS: BP 182/86
[2018-10-01] MEDS ORDERED: FAMOTIDINE 20 MG (PEPCID) TABLET PO NR (13:00)
[2018-10-01] MEDS: ENOXAPARIN 30 MG/0.3 ML (LOVENOX) SYR SC SCH (13:21)
--- NOTE | 2018-10-01 13:53 | NUR ---
INSTRUCTED ON NEED FOR STOOL SPECIMEN, DENIES DIARRHEA, APPETITE GOOD, IV SITE WITHOUT REDNESS OR SWELLING, DENIES PAIN OR SOB, CALL LIGHT WITHIN REACH, INSTRUCTED ON CHECKING BLOOD SUGARS.
[2018-10-01] MEDS ORDERED: VANCOMYCIN 500 MG/NS 100 ML IV SCH ×2 (15:00)
[2018-10-01 16:00] VITALS: BP 139/77
[2018-10-01] MEDS: inSUlin ASPART (NovoLOG) 1 UNIT/0.01 ML (CHARGE PER UNIT) SC SCH ×2 (16:11→21:02)
[2018-10-01 20:00] VITALS: BP 184/92
[2018-10-01] MEDS: GABAPENTIN 300 MG (NEURONTIN) CAP PO SCH (21:01)
[2018-10-01] MEDS: meTOproloL SUCCINATE 50 MG (TOPROL XL) TAB PO SCH (21:58)
[2018-10-01] MEDS ORDERED: cloNIDine 0.1 MG (CATAPRES) TAB PO ONE (22:00)
[2018-10-02] VITALS (10 sets, daily range): BP systolic 166–224; BP diastolic 74–110
[2018-10-02] MEDS: methylPREDNISolone 40 MG/ML (Solu-MEDROL) VIAL IV SCH ×4 (00:16→17:38)
[2018-10-02] MEDS: NS IV 1000 ML 1,000 ML IV SCH ×2 (00:53→17:35)
[2018-10-02] MEDS: PIPERACILLIN/TAZO 4.5 GM/NS 100 ML IV SCH ×6 (02:10→17:39)
[2018-10-02] MEDS: VENlafaxine XR 75 MG (EFFEXOR XR) CAP PO SCH (06:12)
[2018-10-02] MEDS: inSUlin ASPART (NovoLOG) 1 UNIT/0.01 ML (CHARGE PER UNIT) SC SCH ×4 (06:13→21:03)
[2018-10-02] MEDS ORDERED: LEVOTHYROXINE 50 MCG (LEVOTHROID) TAB PO ONE (06:30)
--- NOTE | 2018-10-02 07:06 | Pulmonary Progress Note ---
Subjective Time Seen by a Provider: 06:42 Subjective/Events-last exam pt feels improved. Sepsis Event Evaluation Height, Weight, BMI Height: 5'1.00" Weight: 170lbs. 0.0oz. 77.095014sg; 32.1 BMI Method:Stated Focused Exam Lactate Level 09/30/18 11:42: Lactic Acid Level 2.63*H 09/30/18 13:58: Lactic Acid Level 1.43 Time of Focused Exam: 12:30 Exam Exam Vital Signs Date Time Temp Pulse Resp B/P (MAP) Pulse Ox O2 Delivery O2 Flow Rate FiO2 10/02/18 04:15 98.1 61 18 169/74 (105) 94 Room Air 10/02/18 01:00 61 10/02/18 00:00 97.9 74 18 166/86 (112) 97 Room Air 10/01/18 20:00 97 Room Air 10/01/18 20:00 98.6 86 22 184/92 (122) 97 Room Air 10/01/18 19:00 94 10/01/18 18:45 93 Room Air 10/01/18 16:00 98.0 62 18 139/77 (97) 98 Room Air 10/01/18 13:00 88 10/01/18 12:00 98.0 89 18 182/86 (118) 96 Room Air 10/01/18 09:06 Room Air 10/01/18 08:00 97.0 95 18 172/77 (108) 95 Room Air 10/01/18 08:00 97 Room Air I & O 10/02/18 07:00 Intake Total 2790 ml Output Total 2000 ml Balance 790 ml Height & Weight Height: 5'1.00" Weight: 170lbs. 0.0oz. 77.325388km; 32.1 BMI Method:Stated General Appearance: No Apparent Distress, WD/WN HEENT: Pharynx Normal Neck: Supple Respiratory: Crackles (bases), Decreased Breath Sounds Cardiovascular: Regular Rate, Rhythm, Systolic Murmur Capillary Refill: Less Than 3 Seconds Extremity: Non Tender, No Calf Tenderness, No Pedal Edema Neurologic/Psychiatric: Alert, Oriented x3 Skin: Warm/Dry Results Lab Laboratory Tests 09/30/18 10:00 10/01/18 05:20 Assessment/Plan Assessment/Plan Severe sepsis with iatrogenic immunosuppression - afebrile since admission Pneumonia with atelectasis -Continue Zosyn, Vanco -Roy cultures -PT is now on RA -Will repeat CXR Polymyositis -Follows with [facility] -IVF -Monitor HEYDI PEREZ DO Oct 02, 2018 07:06
[2018-10-02] MEDS: RT-ALBUTEROL/IPRATROPIUM 3 ML (DUONEB) VIAL INH SCH ×5 (07:15→17:35)
--- NOTE | 2018-10-02 08:23 | Diagnostic Imaging Report ---
Portable erect AP chest 0733 hours. INDICATION: Sepsis. FINDINGS: Both the heart and the interstitial densities in the lungs do seem somewhat more prominent than noted on the prior exam of 09/30/2018. The possibility, there is now element of mild pulmonary congestion present should be considered. The vague areas of increased density in the right lung and left lung base noted previously are again evident and essentially no different. There is no new area of pneumonia identified nor is there any sign of a pleural effusion. The mediastinum is somewhat prominent but unchanged when compared to the prior study. The osseous structures are intact. IMPRESSION: The slight prominence of the heart and the interstitial densities does raise the question of early/mild pulmonary congestion. Clinical followup is recommended. Dictated by: Dictated on workstation # [id number]
--- NOTE | 2018-10-02 08:48 | Progress Note ---
Subjective Date Seen by a Provider: Oct 02, 2018 Time Seen by a Provider: 08:50 Subjective/Events-last exam PT REPORTS THAT SHE STILL FEELS REALLY SHORT OF BREATH, SHE DENIES CHEST PAIN, ABDOMINAL PAIN, NAUSEA. Review of Systems General: Fatigue HEENT: No Head Aches Pulmonary: Dyspnea, Cough Cardiovascular: No: Chest Pain, Palpitations Gastrointestinal: No: Nausea, Abdominal Pain Genitourinary: No Dysuria Neurological: No: Weakness, Confusion Focused Exam Lactate Level 09/30/18 11:42: Lactic Acid Level 2.63*H 09/30/18 13:58: Lactic Acid Level 1.43 Time of Focused Exam: 12:30 Objective Exam Last Set of Vital Signs Vital Signs Date Time Temp Pulse Resp B/P (MAP) Pulse Ox O2 Delivery O2 Flow Rate FiO2 10/02/18 08:00 95 Room Air 10/02/18 07:00 66 10/02/18 04:15 98.1 18 169/74 (105) 09/30/18 16:10 21 Capillary Refill : Less Than 3 Seconds I&O Intake and Output 10/02/18 00:00 Intake Total 2860 ml Output Total 2000 ml Balance 860 ml Intake Oral 1520 ml IV Total 1340 ml Output Urine Total 2000 ml General: Alert, Oriented X3, Cooperative HEENT: Atraumatic, PERRLA Neck: Supple Lungs: Other (DECREASED AIR MOVEMENT THROUGHOUT) Heart: Regular Rate Abdomen: Normal Bowel Sounds, Soft, No Tenderness Skin: No Rashes Neuro: Cranial Nerves 3-12 NL Psych/Mental Status: Mental Status NL, Mood NL Results Lab Laboratory Tests 10/01/18 11:53: Glucometer 177H 10/01/18 16:03: Glucometer 146H 10/01/18 21:00: Glucometer 174H 10/02/18 05:31: Glucometer 125H Microbiology 09/30/18 Blood Culture - Preliminary, Resulted No growth 09/30/18 Influenza Types A,B Antigen (KELLY) - Final, Complete Assessment/Plan Assessment/Plan Assess & Plan/Chief Complaint SEPSIS PNEUMONIA POLYMYOSITIS INTERSTITIAL LUNG DISEASE ACUTE ON CHRONIC RENAL FAILURE HYPERGLYCEMIA SEPSIS - CONTINUE WITH ANTIBIOTICS - CONTINUE WITH SEPSIS PROTOCOL PNEUMONIA - CONTINUE WITH ANTIBIOTICS - MONITOR CHEST XRAYS POLYMYOSITIS - CONTINUE WITH IV SOLUMEDROL - WEAN MEDICATION ABLE INTERSTITIAL LUNG DISEASE - SUPPORTIVE CARE ACUTE ON CHRONIC RENAL FAILURE - IMPROVING WITH HYDRATION HYPERGLYCEMIA - WORSE WITH STEROIDS Clinical Quality Measures DVT/VTE Risk/Contraindication: Risk Factor Score Per Nursin RFS Level Per Nursing on Admit: 4+=Very High ANALI MENJIVAR MD Oct 02, 2018 08:48
[2018-10-02] MEDS ORDERED: meTOproloL SUCCINATE 50 MG (TOPROL XL) TAB PO SCH (09:00)
[2018-10-02] MEDS: GABAPENTIN 100 MG (NEURONTIN) CAP PO SCH ×2 (09:10→20:58)
[2018-10-02] MEDS: meTOproloL SUCCINATE 50 MG (TOPROL XL) TAB PO SCH ×2 (09:10→21:00)
--- NOTE | 2018-10-02 09:32 | NUR ---
PRIOR TO A.M. MEDICATIONS PULSE WAS 84 B/P 186/85
[2018-10-02] MEDS ORDERED: LORA10TA7 PO (11:21)
[2018-10-02] MEDS ORDERED: ATOR20TA66 PO (11:21)
[2018-10-02] MEDS ORDERED: LOSA25TA41 PO (11:21)
[2018-10-02] MEDS ORDERED: UBID200C16 PO (11:21)
--- NOTE | 2018-10-02 11:25 | NUR ---
CALLED [facility] FOR A LIST OF MEDICATIONS RECENTLY FILLED. THE PATIENT LISTED TO ME WHAT SHE IS TAKING AND I COMPARED IT WITH THAT LIST. [facility] FILLED: 09-16-18 GABAPENTIN 100MG DAILY #30 09-16-18 VENLAFAXINE ER 150MG DAILY #30 09-16-18 LIPITOR 20MG DAILY #30 09-16-18 LOSARTAN 25MG DAILY #30 09-16-18 CLONIDINE 0.1MG BID #60 (TAKES AT HS ONLY BECAUSE AM DOSE MAKES HER SLEEPY) 09-16-18 POTASSIUM 10MEQ DAILY #30 08-19-18 GABAPENTIN 300MG HS #90 SHE ALSO TAKES CLARITIN AND CO Q 10 DAILY OTC. SHE STATES SHE IS NO LONGER TAKING LEVOTHYROXINE LAST FILLED 50MCG #90 IN FEB, OR METOPROLOL ER 50MG #30 LAST FILLED IN APRIL. SHE IS SUPPOSED TO TAKE CELLCEPT BUT HAS BEEN HAVING TROUBLE AFFORDING IT. GRETCHEN HAD CELLCEPT 500MG ON HOLD IN APRIL. SHE STATES SHE HAS BEEN OUT FOR AWHILE. SHE ALSO RECEIVES RITUXAN FROM EVERY SIX WEEKS, SHE GETS ONE THEN TWO WEEKS LATER A SECOND DOSE AND REPEATS THAT CYCLE EVERY 6 WEEKS.
[2018-10-02] MEDS ORDERED: RTX10V10 IV (11:35)
[2018-10-02] MEDS: ENOXAPARIN 30 MG/0.3 ML (LOVENOX) SYR SC SCH (11:45)
[2018-10-02] MEDS: VANCOMYCIN 1 GM/NS 250 ML IVPB IV SCH ×2 (14:57)
[2018-10-02] MEDS ORDERED: meTOproloL SUCCINATE 50 MG (TOPROL XL) TAB PO NR (16:30)
--- NOTE | 2018-10-02 16:43 | NUR ---
1600 B/P ELEVATED AT THIS TIME AT 200/[address] MENJIVAR NOTIFIED BY THIS RN NEW ORDERS RECEIVED. THIS RN WILL RE-EVALUATE B/P AT 1800 AND REPORT THE RESULTS TO DR. MENJIVAR.
--- NOTE | 2018-10-02 17:55 | NUR ---
RECHECKED HER B/P PER DOCTORS ORDERS AND THIS TIME HER B/P WAS 210/100. DR MENJIVAR IS AWARE, NEW ORDERS RECEIVED.
[2018-10-02] MEDS ORDERED: doxAzosin 2 MG (CARDURA) TAB PO NR (18:15)
--- NOTE | 2018-10-02 20:05 | NUR ---
1949-BP 224/110 CHECKED MANUALLY. 2004-SPOKE WITH DR. MENJIVAR AND INFORMED HER OF PTS BP. TELEPHONE ORDERS RECEIVED FOR 0.1MG CLONIDINE PO 1X DOSE AND 1MG ATIVAN IV 1X DOSE AND TO RECHECK PTS BP 30 MINUTES AFTER GIVING MEDS. WILL CARRY OUT ORDERS AND CONTINUE TO MONITOR PT.
[2018-10-02] MEDS ORDERED: cloNIDine 0.1 MG (CATAPRES) TAB ONE (20:06)
[2018-10-02] MEDS ORDERED: LORazepam INJ 2 MG/ML (ATIVAN) VIAL ONE (20:08)
--- NOTE | 2018-10-02 20:10 | NUR ---
LIZ RIVAS RN TO OVERRIDE 1MG ATIVAN AND 0.1 CLONIDINE AT THIS TIME. THIS RN DOES NOT HAVE OVERRIDE PRIVILEGES.
[2018-10-02] MEDS ORDERED: LORazepam INJ 2 MG/ML (ATIVAN) VIAL IVP NR (20:15)
[2018-10-02] MEDS ORDERED: cloNIDine 0.1 MG (CATAPRES) TAB PO NR (20:15)
--- NOTE | 2018-10-02 20:50 | NUR ---
2014-CLONIDINE AND ATIVAN GIVEN ORDERED 2044- BP RECHECKED 206/108. 2049-SPOKE WITH DR. MENJIVAR AND INFORMED HER OF PTS BP. TELEPHONE ORDERS RECEIVED FOR 0.1MG CLONIDINE PO Q2HRS PRN FOR SYSTOLIC GREATER THAN 180, AND ALSO RECEIVED OKAY TO GIVE 2100 METOPROLOL. WILL CARRY OUT ORDERS AND CONTINUE TO MONITOR PT.
[2018-10-02] MEDS ORDERED: cloNIDine 0.1 MG (CATAPRES) TAB PO PRN (21:00)
[2018-10-02] MEDS: cloNIDine 0.1 MG (CATAPRES) TAB PO SCH (21:02)
[2018-10-02] MEDS: GABAPENTIN 300 MG (NEURONTIN) CAP PO SCH (21:09)
--- NOTE | 2018-10-02 21:50 | NUR ---
2144- BP RECHECKED 202/104. 2149- SPOKE WITH DR. MENJIVAR AND INFORMED HER OF PTS ELEVATED BP. TELEPHONE ORDERS RECEIVED TO RECHECK PTS BP IN 30 MINUTES AND CALL IF STILL ELEVATED. WILL CARRY OUT ORDERS AND CONTINUE TO MONITOR PT.
[2018-10-02] MEDS ORDERED: hydrALAZINE (APRESOLINE) 25 MG TAB PO ONE (22:30)
[2018-10-02] MEDS ORDERED: DILTIAZEM 60 MG (CARDIZEM) TAB PO ONE (22:30)
--- NOTE | 2018-10-02 22:40 | NUR ---
2214- BP 212/110 PULSE 60. 2222- SPOKE WITH DR. MENJIVAR AND INFORMED HER OF PTS ELEVATED BP. TELEPHONE ORDERS RECEIVED FOR CARDIZEM 180MG PO 1X DOSE AND RECHECK BP IN 1 HOUR. 2225-SPOKE WITH ICU SEAT JOINER CHAINSTITCH AND WAS INFORMED PTS HEART RATE HAS RECENTLY BEEN RUNNING IN THE 50S. 2239- SPOKE WITH DR. MENJIVAR AGAIN TO INFORM HER OF PTS HEART RATE BEING IN THE 50'S. TELEPHONE ORDERS RECEIVED NOT TO GIVE CARDIZEM AND TO GIVE HYDRALAZINE 25MG PO 1X DOSE INSTEAD AND TO RECHECK BP IN 1 HOUR. WILL CARRY OUT ORDERS AND CONTINUE TO MONITOR PT.
[2018-10-03] VITALS (28 sets, daily range): BP systolic 132–219; BP diastolic 67–123
--- NOTE | 2018-10-03 00:16 | NUR ---
2350-BP 212/104. 0010-- SPOKE WITH DR. MENJIVAR AND INFORMED HER OF PTS BP. TELEPHONE ORDERS RECEIVED TO TRANSFER PT TO ICU.
--- NOTE | 2018-10-03 01:35 | NUR ---
TRANSFERRED PT TO ICU-6 AND GAVE REPORT TO OLAYINKA TRIPLETT.
[2018-10-03] MEDS ORDERED: methylPREDNISolone 40 MG/ML (Solu-MEDROL) VIAL IV SCH (02:00)
[2018-10-03] MEDS: PIPERACILLIN/TAZO 4.5 GM/NS 100 ML IV SCH ×6 (02:12→18:32)
[2018-10-03] MEDS ORDERED: hydrALAZINE (APESOLINE) 20 MG/ML VIAL ONE (02:21)
[2018-10-03 02:26] LABS: BASOPHILS % (AUTO) 0 % (0-10); EOSINOPHILS % (AUTO) 0 % (0-10); HEMATOCRIT 32 % (35-52); HEMOGLOBIN 10.1 G/DL (11.5-16.0); LYMPHOCYTES % (AUTO) 5 % (12-44); MEAN CORPUSCULAR HEMOGLOBIN 28 PG (25-34); MEAN CORPUSCULAR HGB CONC 32 G/DL (32-36); MEAN CORPUSCULAR VOLUME 87 FL (80-99); MEAN PLATELET VOLUME 9.8 FL (7.4-10.4); MONOCYTES # (AUTO) 1.2 X 10^3 (0.0-1.0); MONOCYTES % (AUTO) 6 % (0-12); NEUTROPHILS # (AUTO) 16.3 X 10^3 (1.8-7.8); NEUTROPHILS % (AUTO) 88 % (42-75); PLATELET COUNT 246 10^3/uL (130-400); RED CELL DISTRIBUTION WIDTH 15.2 % (10.0-14.5); WHITE BLOOD COUNT 18.5 10^3/uL (4.3-11.0)
[2018-10-03] MEDS ORDERED: hydrALAZINE (APESOLINE) 20 MG/ML VIAL IV PRN (02:30)
[2018-10-03 02:45] LABS: CALCIUM 8.6 MG/DL (8.5-10.1); CREATININE SERUM 1.8 MG/DL (0.60-1.30); MAGNESIUM 1.7 MG/DL (1.8-2.4); PHOSPHORUS 3.9 MG/DL (2.3-4.7); POTASSIUM 3.7 MMOL/L (3.6-5.0)
--- NOTE | 2018-10-03 04:53 | Pulmonary Progress Note ---
Subjective Time Seen by a Provider: 05:04 Subjective/Events-last exam Pt transferred here from 4th secondary to SBP of >200 Sepsis Event Evaluation Height, Weight, BMI Height: 5'1.00" Weight: 170lbs. 0.0oz. 77.092270aw; 32.1 BMI Method:Stated Focused Exam Lactate Level 09/30/18 11:42: Lactic Acid Level 2.63*H 09/30/18 13:58: Lactic Acid Level 1.43 Time of Focused Exam: 12:30 Exam Exam Vital Signs Date Time Temp Pulse Resp B/P (MAP) Pulse Ox O2 Delivery O2 Flow Rate FiO2 10/03/18 04:00 61 13 162/89 (113) 94 Nasal Cannula 2.00 10/03/18 03:00 75 16 155/76 (102) 95 Nasal Cannula 2.00 10/03/18 02:30 57 16 171/89 (116) 96 Nasal Cannula 2.00 10/03/18 02:27 48 17 188/88 (121) 95 Nasal Cannula 2.00 10/03/18 02:00 51 17 197/100 (132) 94 Nasal Cannula 2.00 10/03/18 01:52 97.6 54 16 219/110 (146) 93 Nasal Cannula 2.00 10/03/18 01:40 64 10/03/18 01:00 52 10/03/18 00:55 210/100 (136) 10/02/18 23:50 212/104 (140) 10/02/18 23:50 97.6 56 18 90 Room Air 10/02/18 22:15 212/110 (144) 10/02/18 21:45 202/104 (136) 10/02/18 20:45 79 206/108 (140) 10/02/18 20:00 Room Air 10/02/18 19:50 98.9 67 18 224/110 (148) 93 Room Air 10/02/18 19:00 60 10/02/18 16:10 99.2 71 18 97 Room Air 10/02/18 16:00 71 200/100 (133) 10/02/18 12:52 74 10/02/18 12:14 93 Room Air 10/02/18 12:00 98.8 71 18 181/84 (116) 95 Room Air 10/02/18 08:00 95 Room Air 10/02/18 08:00 98.4 84 18 186/85 (118) 93 Room Air 10/02/18 07:15 95 Room Air 10/02/18 07:00 66 I & O 10/03/18 07:00 Intake Total 2825 ml Output Total 1150 ml Balance 1675 ml Height & Weight Height: 5'1.00" Weight: 170lbs. 0.0oz. 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
[2018-10-03] MEDS: NS IV 1000 ML 1,000 ML IV SCH ×2 (05:00→20:54)
[2018-10-03] MEDS ORDERED: amLODIPine 5 MG (NORVASC) TAB ONE (05:32)
[2018-10-03] MEDS: meTOproloL SUCCINATE 50 MG (TOPROL XL) TAB PO SCH ×2 (05:36→20:54)
[2018-10-03] MEDS: amLODIPine 5 MG (NORVASC) TAB PO SCH (05:37)
[2018-10-03] MEDS: POTASSIUM CL 10MEQ/50ML IVPB 50 ML IV SCH (05:50)
[2018-10-03] MEDS: MAGNESIUM 1 GM/100 ML IVPB 100 ML IV SCH ×3 (05:50→11:26)
[2018-10-03] MEDS: inSUlin ASPART (NovoLOG) 1 UNIT/0.01 ML (CHARGE PER UNIT) SC SCH ×4 (05:51→20:52)
[2018-10-03] MEDS: KCL 20 MEQ TAB (K-DUR) PO SCH (05:51)
[2018-10-03] MEDS: RT-ALBUTEROL/IPRATROPIUM 3 ML (DUONEB) VIAL INH SCH ×4 (06:36→19:46)
[2018-10-03 07:16] LABS: ABG BASE EXCESS -4.8 MMOL/L (-2.5-2.5); ABG OXYGEN SATURATION 96 % (94-100); ABG PCO2 34 MMHG (35-45); ABG PH 7.37 (7.37-7.43); ABG PO2 72 MMHG (79-93); ABG TCO2 20.7 MMOL/L (21.0-31.0)
[2018-10-03 07:17] LABS: ALLENS TEST YES-POS; INSPIRED O2 2L; PATIENT TEMP 97.6; VENTILATOR NO
--- NOTE | 2018-10-03 08:42 | Progress Note ---
Subjective Date Seen by a Provider: Oct 03, 2018 Time Seen by a Provider: 08:40 Subjective/Events-last exam PT DENIES CHEST PAIN, SHE DOES COMPLAIN OF SHORTNESS OF BREATH, BUT THINKS THAT IT HAS IMPROVED FORM ADMISSION. Review of Systems General: Fatigue Pulmonary: Dyspnea, Cough Cardiovascular: No: Chest Pain, Palpitations Gastrointestinal: No: Nausea, Abdominal Pain Genitourinary: No Dysuria Neurological: Weakness Focused Exam Lactate Level 09/30/18 11:42: Lactic Acid Level 2.63*H 09/30/18 13:58: Lactic Acid Level 1.43 Time of Focused Exam: 12:30 Objective Exam Last Set of Vital Signs Vital Signs Date Time Temp Pulse Resp B/P (MAP) Pulse Ox O2 Delivery O2 Flow Rate FiO2 10/03/18 06:36 96 Nasal Cannula 2.00 10/03/18 06:00 54 17 179/97 (124) 10/03/18 01:52 97.6 09/30/18 16:10 21 Capillary Refill : Less Than 3 Seconds I&O Intake and Output 10/03/18 00:00 Intake Total 4095 ml Output Total 1650 ml Balance 2445 ml Intake Oral 1855 ml IV Total 2240 ml Output Urine Total 1650 ml # Voids 5 General: Alert, Oriented X3, Cooperative HEENT: Atraumatic, PERRLA Neck: Supple Lungs: Other (DECREASED AIR MOVEMENT THROUGHOUT) Heart: Regular Rate Abdomen: Normal Bowel Sounds, Soft, No Tenderness Extremities: No Edema Skin: No Rashes, No Breakdown Neuro: Strength at 5/5 X4 Ext, Cranial Nerves 3-12 NL Psych/Mental Status: Mental Status NL, Mood NL Results Lab Laboratory Tests 10/02/18 11:17: Glucometer 148H 10/02/18 16:10: Glucometer 141H 10/02/18 20:52: Glucometer 148H 10/03/18 02:20: White Blood Count 18.5H, Red Blood Count 3.63L, Hemoglobin 10.1L, Hematocrit 32L , Mean Corpuscular Volume 87, Mean Corpuscular Hemoglobin 28, Mean Corpuscular Hemoglobin Concent 32, Red Cell Distribution Width 15.2H, Platelet Count 246, Mean Platelet Volume 9.8, Neutrophils (%) (Auto) 88H, Lymphocytes (%) (Auto) 5L , Monocytes (%) (Auto) 6, Eosinophils (%) (Auto) 0, Basophils (%) (Auto) 0, Neutrophils # (Auto) 16.3H, Lymphocytes # (Auto) 1.0, Monocytes # (Auto) 1.2H, Eosinophils # (Auto) 0.0, Basophils # (Auto) 0.0, Sodium Level 140, Potassium Level 3.7, Chloride Level 114H, Carbon Dioxide Level 18L, Anion Gap 8, Blood Urea Nitrogen 30H, Creatinine 1.80H, Estimat Glomerular Filtration Rate 29, BUN/ Creatinine Ratio 17, Glucose Level 123H, Calcium Level 8.6, Phosphorus Level 3.9 , Magnesium Level 1.7L 10/03/18 07:10: Blood Gas Puncture Site RT RAD, Blood Gas Patient Temperature 97.6, Arterial Blood pH 7.37, Arterial Blood Partial Pressure CO2 34L, Arterial Blood Partial Pressure O2 72L, Arterial Blood HCO3 20L, Arterial Blood Total CO2 20.7L, Arterial Blood Oxygen Saturation 96, Arterial Blood Base Excess -4.8L, Clay Test YES-POS, Blood Gas Ventilator Setting NO, Blood Gas Inspired Oxygen 2L Microbiology 09/30/18 Blood Culture - Preliminary, Resulted No growth 09/30/18 Influenza Types A,B Antigen (KELLY) - Final, Complete 09/30/18 Urine Culture - Final, Complete NO GROWTH Assessment/Plan Assessment/Plan Assess & Plan/Chief Complaint SEPSIS PNEUMONIA POLYMYOSITIS INTERSTITIAL LUNG DISEASE ACUTE ON CHRONIC RENAL FAILURE HYPERGLYCEMIA SEPSIS - CONTINUE WITH ANTIBIOTICS - CONTINUE WITH SEPSIS PROTOCOL PNEUMONIA - CONTINUE WITH ANTIBIOTICS - MONITOR CHEST XRAYS POLYMYOSITIS - CONTINUE WITH IV SOLUMEDROL - WEAN MEDICATION ABLE INTERSTITIAL LUNG DISEASE - SUPPORTIVE CARE ACUTE ON CHRONIC RENAL FAILURE - IMPROVING WITH HYDRATION HYPERGLYCEMIA - WORSE WITH STEROIDS Clinical Quality Measures DVT/VTE Risk/Contraindication: Risk Factor Score Per Nursin RFS Level Per Nursing on Admit: 4+=Very High ANALI MENJIVAR MD Oct 03, 2018 08:42
--- NOTE | 2018-10-03 08:44 | Diagnostic Imaging Report ---
EXAMINATION: Portable erect AP chest at 3:35 AM. INDICATION: Respiratory distress. FINDINGS: The appearance of the chest has improved somewhat since 10/02/2018 as the central pulmonary vascularity and interstitial densities in both lungs are less prominent. The heart is stable in size. There is a vague area of increased density overlying the left lung base. In retrospect, this was present on the prior CT chest exam of 09/16/2017. This density may be slightly larger. It may prove worthwhile to repeat the CT chest exam for further evaluation of this finding. The mediastinum is not widened. The osseous structures are intact. IMPRESSION: 1. The appearance of the chest has improved as there does appear to be less pulmonary congestion. 2. The vague nodular density overlying the left lung base may be secondary to scar formation alone. The possibility that there is an underlying neoplastic process should still be considered. Recommendations as above. Dictated by: Dictated on workstation # [id number]
[2018-10-03] MEDS ORDERED: NON-FORMULARY MEDICATION 1 EA EA (Losartan Potassium 25 MG) PO SCH (09:00)
[2018-10-03] MEDS ORDERED: LOSARTAN 25 MG (COZAAR) TAB PO SCH (09:00)
[2018-10-03] MEDS ORDERED: FUROSEMIDE 40 MG/4 ML INJ (LASIX) IVP NR (09:44)
[2018-10-03] MEDS: FAMOTIDINE 20 MG (PEPCID) TABLET PO SCH (10:10)
[2018-10-03] MEDS: LOSARTAN 50 MG (COZAAR) TAB PO SCH (10:10)
[2018-10-03] MEDS: VENlafaxine XR 75 MG (EFFEXOR XR) CAP PO SCH (10:10)
[2018-10-03] MEDS: GABAPENTIN 100 MG (NEURONTIN) CAP PO SCH (10:10)
[2018-10-03] MEDS: methylPREDNISolone 40 MG/ML (Solu-MEDROL) VIAL IV SCH ×2 (10:11→18:33)
[2018-10-03] MEDS ORDERED: RT-ALBUTEROL/IPRATROPIUM 3 ML (DUONEB) VIAL INH PRN (11:00)
--- NOTE | 2018-10-03 13:20 | Physician Query Clarification ---
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 Patient sees a technician semiconductor development, Dr. Eliseo Sorto at [facility]. Treatment: Last received a Rituxan injection about 4 days ago. She had previously been on CellCept and is to restart it but has not due to insurance issues. Question: Can you further specify the specific organ involvement associated with the patient's polymyositis? Please document below. 1. . 2. . 3. Other, with explanation of the clinical findings. 4. Clinically undetermined, no explanation for the clinical findings. PHYSICIAN RESPONSE Can you specify per above: 1 In responding to this query, please exercise your independent professional judgment. The purpose of this communication is to more accurately reflect the complexity of your patients condition. The fact that a question is asked does not imply that any particular answer is desired or expected. Thank you for your timely response to this clarification. Requestors name: Ana Gary [facility] Phone # ext [phone] or [phone] THIS PHYSICIAN QUERY FORM IS A PERMANENT PART OF THE MEDICAL RECORD ANA GARY Oct 03, 2018 13:20 ANALI MENJIVAR MD Oct 10, 2018 20:07
[2018-10-03] MEDS ORDERED: TROUGH ORDER-PHARMACY XX NR (14:00)
[2018-10-03] MEDS: ENOXAPARIN 30 MG/0.3 ML (LOVENOX) SYR SC SCH (15:09)
[2018-10-03] MEDS: VANCOMYCIN 1 GM/NS 250 ML IVPB IV SCH ×2 (16:28)
[2018-10-03] MEDS: cloNIDine 0.1 MG (CATAPRES) TAB PO SCH (20:53)
[2018-10-03] MEDS: GABAPENTIN 300 MG (NEURONTIN) CAP PO SCH (20:53)
[2018-10-04] VITALS: BP 155/75
[2018-10-04] MEDS: methylPREDNISolone 40 MG/ML (Solu-MEDROL) VIAL IV SCH (02:02)
[2018-10-04] MEDS: PIPERACILLIN/TAZO 4.5 GM/NS 100 ML IV SCH ×6 (02:02→17:29)
[2018-10-04 03:55] LABS: BASOPHILS % (AUTO) 0 % (0-10); EOSINOPHILS % (AUTO) 0 % (0-10); HEMATOCRIT 33 % (35-52); HEMOGLOBIN 10.4 G/DL (11.5-16.0); LYMPHOCYTES # (AUTO) 0.9 X 10^3 (1.0-4.0); LYMPHOCYTES % (AUTO) 6 % (12-44); MEAN CORPUSCULAR HEMOGLOBIN 28 PG (25-34); MEAN CORPUSCULAR HGB CONC 32 G/DL (32-36); MEAN CORPUSCULAR VOLUME 86 FL (80-99); MEAN PLATELET VOLUME 10.4 FL (7.4-10.4); MONOCYTES # (AUTO) 1.8 X 10^3 (0.0-1.0); MONOCYTES % (AUTO) 12 % (0-12); NEUTROPHILS % (AUTO) 82 % (42-75); PLATELET COUNT 253 10^3/uL (130-400); RED CELL DISTRIBUTION WIDTH 15.5 % (10.0-14.5); WHITE BLOOD COUNT 14.7 10^3/uL (4.3-11.0)
[2018-10-04 04:00] VITALS: BP 165/90
[2018-10-04 04:14] LABS: CREATININE SERUM 1.85 MG/DL (0.60-1.30); POTASSIUM 3.6 MMOL/L (3.6-5.0)
[2018-10-04 04:15] LABS: CALCIUM 8.2 MG/DL (8.5-10.1); MAGNESIUM 2.3 MG/DL (1.8-2.4); PHOSPHORUS 3.7 MG/DL (2.3-4.7)
[2018-10-04] MEDS: MAGNESIUM 1 GM/100 ML IVPB 100 ML IV SCH (04:18)
[2018-10-04] MEDS: KCL 20 MEQ TAB (K-DUR) PO SCH (04:18)
[2018-10-04] MEDS: POTASSIUM CL 10MEQ/50ML IVPB 50 ML IV SCH (04:19)
[2018-10-04] MEDS: inSUlin ASPART (NovoLOG) 1 UNIT/0.01 ML (CHARGE PER UNIT) SC SCH (04:19)
--- NOTE | 2018-10-04 06:10 | Pulmonary Progress Note ---
Subjective Time Seen by a Provider: 06:40 Sepsis Event Evaluation Height, Weight, BMI Height: 5'1.00" Weight: 169lbs. 2.0oz. 76.389620wm; 32.1 BMI Method:Stated Focused Exam Time of Focused Exam: 12:30 Exam Exam Vital Signs Date Time Temp Pulse Resp B/P (MAP) Pulse Ox O2 Delivery O2 Flow Rate FiO2 10/04/18 04:00 97.5 62 20 165/90 (115) 93 Room Air 10/04/18 01:01 67 10/04/18 00:00 98.2 68 17 155/75 (101) 93 Room Air 10/03/18 23:00 72 16 153/76 (101) 92 Room Air 10/03/18 22:00 76 15 148/76 (100) 94 Room Air 10/03/18 19:46 95 Room Air 10/03/18 19:30 95 Room Air 10/03/18 19:25 98.4 73 24 165/87 (113) 95 Room Air 10/03/18 19:00 79 10/03/18 17:00 72 18 144/67 (92) 92 Room Air 10/03/18 16:15 73 18 160/79 (106) 94 Room Air 10/03/18 16:00 75 19 161/123 (136) 94 Room Air 10/03/18 15:18 94 Room Air 10/03/18 15:00 71 16 145/70 (95) 94 Room Air 10/03/18 14:00 79 38 138/70 (92) 94 Room Air 10/03/18 13:07 97.8 10/03/18 13:00 72 21 151/81 (104) 94 Room Air 10/03/18 12:43 80 10/03/18 12:00 68 16 142/67 (92) 91 Room Air 10/03/18 11:30 71 19 136/67 (90) 91 Room Air 10/03/18 11:00 72 31 132/70 (90) 92 Room Air 10/03/18 10:42 93 Room Air 10/03/18 10:42 69 93 21 10/03/18 10:30 73 24 144/75 (98) 94 Room Air 10/03/18 10:15 Room Air 10/03/18 10:00 70 15 144/75 (98) 95 Nasal Cannula 2.00 10/03/18 09:00 68 14 162/87 (112) 95 Nasal Cannula 2.00 10/03/18 08:56 94 Nasal Cannula 2.00 10/03/18 08:00 97.2 64 17 160/87 (111) 94 Nasal Cannula 2.00 10/03/18 07:12 63 10/03/18 07:00 59 17 165/90 (115) 94 Nasal Cannula 2.00 10/03/18 06:36 96 Nasal Cannula 2.00 I & O 10/04/18 07:00 Intake Total 2350 ml Output Total 2275 ml Balance 75 ml Height & Weight Height: 5'1.00" Weight: 169lbs. 2.0oz. 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
[2018-10-04] MEDS: RT-ALBUTEROL/IPRATROPIUM 3 ML (DUONEB) VIAL INH SCH ×4 (07:03→18:47)
[2018-10-04] MEDS: amLODIPine 5 MG (NORVASC) TAB PO SCH (08:09)
[2018-10-04] MEDS: LOSARTAN 50 MG (COZAAR) TAB PO SCH (08:09)
[2018-10-04] MEDS: meTOproloL SUCCINATE 50 MG (TOPROL XL) TAB PO SCH ×2 (08:10→20:21)
[2018-10-04] MEDS: GABAPENTIN 100 MG (NEURONTIN) CAP PO SCH (08:10)
[2018-10-04] MEDS: VENlafaxine XR 75 MG (EFFEXOR XR) CAP PO SCH (08:10)
[2018-10-04] MEDS: NS IV 1000 ML 1,000 ML IV SCH (08:12)
--- NOTE | 2018-10-04 08:55 | Diagnostic Imaging Report ---
EXAMINATION: Portable erect AP chest at 0030 hours. INDICATION: Dyspnea. FINDINGS: The heart size is stable when compared to the prior exam of 10/03/2018. The small area of increased density in the left lung base seen previously is again evident and no different. There is also some increased density in the right lung base. This, too, is unchanged when compared to the prior exam. The upper lungs remain clear. The mediastinum is not widened. The osseous structures are intact. IMPRESSION: 1. Stable chest. There has been no adverse change since the prior exam. 2. A CT of the chest would be recommended for further evaluation of the parenchymal density in the left lung base when the patient's condition permits. Dictated by: Dictated on workstation # [id number]
--- NOTE | 2018-10-04 09:01 | Progress Note ---
Subjective Date Seen by a Provider: Oct 04, 2018 Time Seen by a Provider: 09:00 Subjective/Events-last exam PT REPORTS THAT SHE IS FEELING BETTER - SHE STATES THAT SHE DOES FEEL LIKE HER BLOOD PRESSURE HAS BEEN INCREASING INTERMITTENTLY. Review of Systems General: No Chills, No Fatigue Pulmonary: Dyspnea; No Cough Cardiovascular: No: Chest Pain Gastrointestinal: No: Nausea Genitourinary: No Dysuria Neurological: Weakness; No: Confusion Focused Exam Time of Focused Exam: 12:30 Objective Exam Last Set of Vital Signs Vital Signs Date Time Temp Pulse Resp B/P (MAP) Pulse Ox O2 Delivery O2 Flow Rate FiO2 10/04/18 07:12 61 10/04/18 07:03 100 Nasal Cannula 2.00 10/04/18 04:00 97.5 20 165/90 (115) 10/03/18 10:42 21 Capillary Refill : Less Than 3 Seconds I&O Intake and Output 10/04/18 00:00 Intake Total 2570 ml Output Total 1650 ml Balance 920 ml Intake Oral 990 ml IV Total 1580 ml Output Urine Total 1650 ml # Voids 2 General: Alert, Oriented X3, Cooperative, No Acute Distress HEENT: Atraumatic, PERRLA Neck: Supple Lungs: Other (IMPROVED) Heart: Regular Rate Abdomen: Normal Bowel Sounds, Soft, No Tenderness Skin: No Rashes, No Breakdown Psych/Mental Status: Mental Status NL, Mood NL Results Lab Laboratory Tests 10/03/18 11:35: Glucometer 140H 10/03/18 15:03: Vancomycin Level Trough 15.6 10/03/18 16:33: Glucometer 187H 10/03/18 20:51: Glucometer 189H 10/04/18 03:25: White Blood Count 14.7H, Red Blood Count 3.76L, Hemoglobin 10.4L, Hematocrit 33L , Mean Corpuscular Volume 86, Mean Corpuscular Hemoglobin 28, Mean Corpuscular Hemoglobin Concent 32, Red Cell Distribution Width 15.5H, Platelet Count 253, Mean Platelet Volume 10.4, Neutrophils (%) (Auto) 82H, Lymphocytes (%) (Auto) 6L , Monocytes (%) (Auto) 12, Eosinophils (%) (Auto) 0, Basophils (%) (Auto) 0, Neutrophils # (Auto) 12.0H, Lymphocytes # (Auto) 0.9L, Monocytes # (Auto) 1.8H, Eosinophils # (Auto) 0.0, Basophils # (Auto) 0.0, Sodium Level 141, Potassium Level 3.6, Chloride Level 115H, Carbon Dioxide Level 19L, Anion Gap 7, Blood Urea Nitrogen 36H, Creatinine 1.85H, Estimat Glomerular Filtration Rate 28, BUN/ Creatinine Ratio 19, Glucose Level 136H, Calcium Level 8.2L, Phosphorus Level 3.7, Magnesium Level 2.3 Microbiology 09/30/18 Blood Culture - Preliminary, Resulted No growth 09/30/18 Influenza Types A,B Antigen (KELLY) - Final, Complete 09/30/18 Urine Culture - Final, Complete NO GROWTH Assessment/Plan Assessment/Plan Assess & Plan/Chief Complaint SEPSIS PNEUMONIA POLYMYOSITIS INTERSTITIAL LUNG DISEASE ACUTE ON CHRONIC RENAL FAILURE HYPERGLYCEMIA UNCONTROLLED HYPERTENSION PNEUMONIA - CONTINUE WITH ANTIBIOTICS - MONITOR CHEST XRAYS UNCONTROLLED HYPERTENSION - STOP SOLUMEDROL - INCREASE BP MEDICATIONS POLYMYOSITIS - CONTINUE WITH IV SOLUMEDROL - WEAN MEDICATION ABLE INTERSTITIAL LUNG DISEASE - SUPPORTIVE CARE ACUTE ON CHRONIC RENAL FAILURE - IMPROVING WITH HYDRATION HYPERGLYCEMIA - WORSE WITH STEROIDS Clinical Quality Measures DVT/VTE Risk/Contraindication: Risk Factor Score Per Nursin RFS Level Per Nursing on Admit: 4+=Very High ANALI MENJIVAR MD Oct 04, 2018 09:01
--- NOTE | 2018-10-04 10:27 | NUR ---
Patient transferred to [facility] per W/C accompanied by METABOLIC SPECIALIST NIXON. Patient and family notified and understand transfer. Personal belongings with patient. Report given AT BEDSIDE to THIS RN BY METABOLIC SPECIALISTUZIEL ALICEA.
[2018-10-04 10:40] VITALS: BP 170/89
[2018-10-04 12:00] VITALS: BP 144/74
[2018-10-04] MEDS ORDERED: predniSONE 20 MG TAB PO NR (12:00)
--- NOTE | 2018-10-04 13:42 | Diagnostic Imaging Report ---
PROCEDURE: CT chest without contrast. TECHNIQUE: Multiple contiguous axial images were obtained through the chest without the use of intravenous contrast. Auto Exposure Controls were utilized during the CT exam to meet ALARA standards for radiation dose reduction. INDICATION: Pneumonia COMPARISON: 09/16/2017 FINDINGS: There is a patchy bilateral nodular infiltrates greatest in the lower lungs involve dependent lower lobes but also found in the lingular segment of the left upper lobe and the right middle lobe. Appearance suggest multifocal atypical pneumonia. No evidence for pulmonary abscess or empyema. No evidence for adenopathy at this nonenhanced exam. The aorta is nonaneurysmal. There is a minute amount of pleural fluid bilaterally without loculation. The visualized upper abdomen showed no free air, free fluid or acute finding. IMPRESSION: Patchy nodular bilateral basilar infiltrates suggest multifocal pneumonia with minute pleural effusions nonloculated. Dictated by: Dictated on workstation # [id number]
[2018-10-04] MEDS: ENOXAPARIN 30 MG/0.3 ML (LOVENOX) SYR SC SCH (14:15)
[2018-10-04 16:00] VITALS: BP 126/69
[2018-10-04 20:00] VITALS: BP 155/68
[2018-10-04] MEDS: cloNIDine 0.1 MG (CATAPRES) TAB PO SCH (20:20)
[2018-10-04] MEDS: GABAPENTIN 300 MG (NEURONTIN) CAP PO SCH (20:20)
[2018-10-05 00:31] VITALS: BP 155/68
[2018-10-05] MEDS: PIPERACILLIN/TAZO 4.5 GM/NS 100 ML IV SCH ×2 (02:14)
[2018-10-05 04:00] VITALS: BP 173/90
[2018-10-05] MEDS: VENlafaxine XR 75 MG (EFFEXOR XR) CAP PO SCH (05:59)
[2018-10-05] MEDS: RT-ALBUTEROL/IPRATROPIUM 3 ML (DUONEB) VIAL INH SCH (06:58)
[2018-10-05] MEDS ORDERED: predniSONE 20 MG TAB PO SCH (07:00)
[2018-10-05 08:00] VITALS: BP 172/84
[2018-10-05] MEDS: FAMOTIDINE 20 MG (PEPCID) TABLET PO SCH (08:15)
[2018-10-05] MEDS: LOSARTAN 50 MG (COZAAR) TAB PO SCH (08:15)
[2018-10-05] MEDS: meTOproloL SUCCINATE 50 MG (TOPROL XL) TAB PO SCH (08:15)
[2018-10-05] MEDS: GABAPENTIN 100 MG (NEURONTIN) CAP PO SCH (08:15)
[2018-10-05] MEDS: amLODIPine 5 MG (NORVASC) TAB PO SCH (08:15)
[2018-10-05] MEDS ORDERED: IPRA3AMP31 INH (09:02)
[2018-10-05] MEDS ORDERED: LACT1CAP57 PO (09:02)
[2018-10-05] MEDS ORDERED: HYDR-3922 PO (09:02)
[2018-10-05] MEDS ORDERED: AMOX-358 PO (09:02)
[2018-10-05] MEDS ORDERED: PRD20T PO (09:02)
[2018-10-05] MEDS ORDERED: METO-370 PO (09:02)
[2018-10-05] MEDS ORDERED: AMLO5TAB9 PO (09:02)
[2018-10-05] MEDS ORDERED: LOSA50TA63 PO (09:02)
--- NOTE | 2018-10-05 09:03 | Discharge Inst-Complex ---
PDI Med Rec & Follow Up Appt. New Medications: Amoxicillin/Potassium Clav (Augmentin 875-125 Tablet) 1 Each Tablet 1 EACH PO BID, #14 TAB Lactobac Cmb #3/Fos/Pantethine (Probiotic & Acidophilus Cap) 1 Each Capsule 1 EACH PO BID, #30 CAP Amlodipine Besylate (Amlodipine Besylate) 5 Mg Tablet 10 MG PO DAILY, #30 TAB 3 Refills HOLD IF SBP IS LESS THAN 130 Hydralazine HCl (Hydralazine HCl) 10 Mg Tablet 10 MG PO Q6H, #120 TAB 2 Refills Ipratropium/Albuterol Sulfate (Iprat-Albut 0.5-3(2.5) mg/3 ml) 3 Ml Ampul.neb 3 ML INH RTQ4HR PRN for SOA, #60 EA 4 Refills INHALE [id number] X 2 WEEKS AND Q4HR PRN SHORTNESS OF BREATH Losartan Potassium (Losartan Potassium) 50 Mg Tablet 50 MG PO DAILY, #30 TAB 6 Refills Metoprolol Succinate (Metoprolol Succinate) 50 Mg Tab.er.24h 75 MG PO BID, #90 TAB 3 Refills Prednisone (Prednisone) 20 Mg Tab 20 MG PO DAILY@0700, #4 TAB Continued Medications: Atorvastatin Calcium (Atorvastatin Calcium) 20 Mg Tablet 20 MG PO DAILY, TAB Gabapentin (Gabapentin) 300 Mg Capsule 300 MG PO HS, CAP Gabapentin (Gabapentin) 100 Mg Capsule 100 MG PO DAILY, CAP Loratadine (Loratadine) 10 Mg Tablet 10 MG PO DAILY, TAB Potassium Chloride (Potassium Chloride) 10 Meq Tablet.er 10 MEQ PO DAILY, TAB Rituximab (Rituxan) 100 Mg/10 Ml Conc IV UD, ML RECEIVES ONE DOSE THEN REPEATS IN 2 WEEKS, REPEATS THIS CYCLE EVERY 6 WEEKS. Ubidecarenone (Co Q-10) 200 Mg Capsule 200 MG PO DAILY, CAP Venlafaxine HCl (Effexor Xr) 150 Mg Cap.er.24h 150 MG PO DAILY, CAP Discontinued Medications: Clonidine HCl (Clonidine HCl) 0.1 Mg Tablet 0.1 MG PO HS, TAB Losartan Potassium (Losartan Potassium) 25 Mg Tablet 25 MG PO DAILY, TAB Prescription: Transmitted to Pharmacy Patient Instructions: APPT WITH [facility] CHRIS POON IN 2 WKS Activity, Diet and PDI Resume Normal Activity: Yes Discharge Diet: Regular Diet Driving Instructions: No Driving for 24 Hours May Return to Work/School/Day: May Return to Work (IN 5 DAYS) Symptoms to Reoprt to DrUlises: Fever Over 101 Degrees F, Pain/Pressure in Chest, Questions/Concerns, Shortness of Breath For Problems or Questions: Contact Your Physician, Go to Emergency Room Infection Signs and Symptoms: Temperature Above 101 F ANALI MENJIVAR MD Oct 05, 2018 09:03
--- NOTE | 2018-10-05 09:06 | Discharge Summary ---
Diagnosis/Chief Complaint Date of Admission Sep 30, 2018 at 12:28 Date of Discharge Discharge Date: Oct 05, 2018 Discharge Time: 1030 Admission Diagnosis Admission Diagnosis SEPSIS PNEUMONIA POLYMYOSITIS INTERSTITIAL LUNG DISEASE ACUTE ON CHRONIC RENAL FAILURE HYPERGLYCEMIA Discharge Diagnosis SEPSIS PNEUMONIA POLYMYOSITIS INTERSTITIAL LUNG DISEASE ACUTE ON CHRONIC RENAL FAILURE HYPERGLYCEMIA Reason Hospital Visit This is a 62 year old female with a history of interstitial lung disease and polymyositis who recently started rituxan. She was at work and was very weak with pain in her legs, dizziness and sweats. She called her daughter who then called me and I instructed her to take her to the ER. The daughter reported that her kidney function has also been elevated recently and she was supposed to have that checked with Dr. Maya. The patient also reports that she has had loose stools since her rituxan dose. She was found to be septic with a WBC of 18.7 and an elevated creatinine of 2.5. She reports that her last creatinine was 1.7. She had a probable new infiltrate on CXR and she does admit that she has had some recent cough. She will be admitted for broad spectrum antibiotics, steroids and IV hydration. Pulmonology will be consulted. Discharge Summary Discharge Physical Examination Allergies: Coded Allergies: No Known Drug Allergies (Verified , 09/01/07) Vitals & I&Os Vital Signs Date Time Temp Pulse Resp B/P (MAP) Pulse Ox O2 Delivery O2 Flow Rate FiO2 10/05/18 12:16 73 18 172/84 95 Room Air 2.00 10/05/18 08:00 97.4 General Appearance: Alert, Oriented X3, Cooperative, No Acute Distress HEENT: Atraumatic, PERRLA, Mucous Memb Moist/Bath Respiratory: Clear to Auscultation, Normal Air Movement Cardiovascular: Regular Rate Abdominal: Normal Bowel Sounds, Soft Extremities: No Cyanosis Skin: No Rashes, No Breakdown Neuro: Strength at 5/5 X4 Ext, Cranial Nerves 3-12 NL Psych/Mental Status: Mental Status NL, Mood NL Hospital Course Was the Problem List Reviewed?: Yes SEPSIS PNEUMONIA POLYMYOSITIS INTERSTITIAL LUNG DISEASE ACUTE ON CHRONIC RENAL FAILURE HYPERGLYCEMIA SEPSIS - RESOLVED PNEUMONIA - FINISHED IV ANTIBIOTICS POLYMYOSITIS - TRANSITION TO ORAL STEROIDS X 4 DAYS INTERSTITIAL LUNG DISEASE - SUPPORTIVE CARE ACUTE ON CHRONIC RENAL FAILURE - IMPROVING WITH HYDRATION HYPERGLYCEMIA - WORSE WITH STEROIDS UNCONTROLLED HYPERTENSION - INCREASED HOME REGIMEN. Discharge Condition at discharge IMPROVED Instructions to patient/family Please see electronic discharge instructions given to patient. Discharge Medications Reviewed and agree with Discharge Medication list on patient's Discharge Instruction sheet Clinical Quality Measures DVT/VTE Risk/Contraindication: Risk Factor Score Per Nursin RFS Level Per Nursing on Admit: 4+=Very High ANALI MAYA MD Oct 05, 2018 09:06
--- NOTE | 2018-10-05 10:12 | NUR ---
ADDY SIMMONS demonstrates understanding of discharge instructions and accurately returns instructions upon questioning. Copy of Post-Discharge Instructions and Medication Discharge Instructions given to patient. ADDY SIMMONS is able to manage continuing needs after discharge. Patients belongings returned to patient. Skin dry and intact; no breakdown noted. Patient discharged from [facility] on 10/05/18 at 1012. ADDY SIMMONS left floor via wheelchair, accompanied by staff and family.
[2018-10-05 12:16] VITALS: BP 172/84
== END 2018-10-05 10:12 | disposition home or self-care (01) | DRG 871 ==
LOC: EDUNIT# 10:00 → ER 10:03 → 4TH 12:28 → ICU 10-03 02:12 → 4TH 10-04 10:15
PROVIDERS: ADMIT Family Medicine; ATTEND Family Medicine
DX: A41.9 Sepsis, unspecified organism (principal); R65.20 Severe sepsis without septic shock; J18.1 Lobar pneumonia, unspecified organism; N17.9 Acute kidney failure, unspecified; J84.9 Interstitial pulmonary disease, unspecified; M33.20 Polymyositis, organ involvement unspecified; J98.11 Atelectasis; E86.0 Dehydration; I16.0 Hypertensive urgency; I12.9 Hypertensive chronic kidney disease with stage 1 through stage 4 chronic kidney disease, or unspecified chronic kidney disease; N18.9 Chronic kidney disease, unspecified; R91.1 Solitary pulmonary nodule; G62.9 Polyneuropathy, unspecified; R19.7 Diarrhea, unspecified; E78.00 Pure hypercholesterolemia, unspecified; R73.9 Hyperglycemia, unspecified; E03.9 Hypothyroidism, unspecified; K21.9 Gastro-esophageal reflux disease without esophagitis; F41.9 Anxiety disorder, unspecified; Z79.899 Other long term (current) drug therapy
CPT/HCPCS: 36415; 71045; 71046; 71250; 80048; 80053; 80202; 81000; 82550; 82805; 82962; 83036; 83605; 83735; 83874; 84100; 85007; 85025; 85027; 85652; 86141; 87040; 87088; 87804; 94640; 94760; 96361; 96365; 96375

== ENCOUNTER 2019-08-06 08:13 | Emergency (ER) | payer SELFPAY ==
[~2019-08-06] VITALS: Ht 154.9 cm; Wt 77.1 kg
[~2019-08-06 08:13] MED LIST changes: +AMOX-358 PO; +ATOR20TA66 PO; +CLON0.1T PO; +GABA-486 PO; +GABA-488 PO; +HYDR-3922 PO; +IPRA3AMP31 INH; +LACT1CAP57 PO; +LORA10TA7 PO; +LOSA25TA41 PO; +LOSA50TA63 PO; +METO-352 PO; +METO50TA7 PO; +MYCO500T34 PO; +RTX10V10 IV; +SIMV20TA26 PO; -SIMV20TA3 PO; +UBID200C16 PO; +VENL150C PO
[2019-08-06] MEDS ORDERED: NS IV 1000 ML 1,000 ML IV SCH (08:53)
[2019-08-06] MEDS ORDERED: methylPREDNISolone 125 MG (Solu-MEDROL) VIAL IVP ONE (09:00)
[2019-08-06 09:09] LABS: BASOPHILS % (AUTO) 0 % (0-10); EOSINOPHILS % (AUTO) 0 % (0-10); HEMATOCRIT 36 % (35-52); LYMPHOCYTES # (AUTO) 1.4 X 10^3 (1.0-4.0); LYMPHOCYTES % (AUTO) 14 % (12-44); MEAN CORPUSCULAR HEMOGLOBIN 27 PG (25-34); MEAN CORPUSCULAR HGB CONC 33 G/DL (32-36); MEAN CORPUSCULAR VOLUME 82 FL (80-99); MEAN PLATELET VOLUME 9.8 FL (7.4-10.4); MONOCYTES # (AUTO) 2.2 X 10^3 (0.0-1.0); MONOCYTES % (AUTO) 23 % (0-12); NEUTROPHILS # (AUTO) 6.3 X 10^3 (1.8-7.8); NEUTROPHILS % (AUTO) 63 % (42-75); PLATELET COUNT 273 10^3/uL (130-400); RED CELL DISTRIBUTION WIDTH 14.3 % (10.0-14.5); WHITE BLOOD COUNT 9.9 10^3/uL (4.3-11.0)
[2019-08-06 09:15] LABS: PROTHROMBIN TIME PATIENT 13.8 SEC (12.2-14.7)
--- NOTE | 2019-08-06 09:24 | Diagnostic Imaging Report ---
INDICATION: Cough and fever. TECHNIQUE: PA and lateral films of the chest were obtained at 9:17 AM. FINDINGS: The heart and mediastinal silhouette are normal in appearance. The lungs are clear. There is no pneumothorax or pleural fluid. IMPRESSION: No acute process in the chest. Dictated by: Dictated on workstation # [id number]
[2019-08-06 09:25] LABS: ALANINE AMINOTRANSFERASE 13 U/L (0-55); ALBUMIN 4.2 GM/DL (3.2-4.5); ALKALINE PHOSPHATASE 89 U/L (40-136); BILIRUBIN,TOTAL 0.3 MG/DL (0.1-1.0); BUN/CREATININE RATIO 7; CALCIUM 9.3 MG/DL (8.5-10.1); CARBON DIOXIDE 21 MMOL/L (21-32); CHLORIDE 108 MMOL/L (98-107); CREATININE SERUM 1.76 MG/DL (0.60-1.30); GFR ESTIMATED 29; GLUCOSE 134 MG/DL (70-105); POTASSIUM 3.7 MMOL/L (3.6-5.0); SODIUM 139 MMOL/L (135-145); TOTAL PROTEIN 6.4 GM/DL (6.4-8.2)
--- NOTE | 2019-08-06 09:27 | ED Cough/URI ---
General Chief Complaint: Respiratory Problems Stated Complaint: COUGH;CHILLS;FEVER Nursing Triage Note: PT AMB TO [facility] 7 WITH COMLPLAINT OF SOA, COUGH, FEVER, CHILLS SINCE YESTERDAY. Sepsis Screen: No Definite Risk Source: patient (SOMEWHAT LMITED HISTORIAN), family (DAUGHTER) History of Present Illness Date Seen by Provider: Aug 06, 2019 Time Seen by Provider: 08:40 Initial Comments PT ARRIVES VIA POV FROM HOME, WITH DAUGHTER. PT LIVES ALONE. PT STATES SHE HAS BEEN SICK SINCE LAST Tuesday08/02/19 HAS HAD NON-PRODUCTIVE COUGH, CHEST CONGESTION, NASAL CONGESTION AND DRAINAGE SYMPTOMS HAVE BEEN WORSE SINCE TUESDAY HAD SUBJECTIVE FEVER AND CHILLS YESTERDAY NO CHEST PAIN, OTHER THAN HER CHEST HURTS WHEN SHE COUGHS HARD NO SHORTNESS OF BREATH OR WHEEZING. TOOK 1 TYLENOL AT 1830 YESTERDAY AND ONE AT 0400 THIS AM HAS NOT TAKEN ANYTHING ELSE FOR SYMPTOMS PT STATES "I HAVE A LUNG DISORDER" STATES SHE HAS BEEN DX WITH INTERSTITIAL LUNG DISEASE, AND IS FOLLOWED BY A HEALTH COACH AT --SEES HIM ONCE A YEAR. PT AND DAUGHTER REPORT THAT HE HAS TOLD THEM THAT IT APPEARS THAT IT IS GETTING BETTER. PT HAS NOT REQUIRED HOME O2 PT HAS NOT REQUIRED HOME NEBULIZER OR INHALER. NO KNOWN SICK CONTACTS, BUT STATES SHE WALKED AROUND THE MALL IN [place] LAST WEEK, AND HAD HER LAB DRAWN THERE. PCP: DR. MENJIVAR HEALTH COACH: AT Allergies and Home Medications Allergies Coded Allergies: No Known Drug Allergies (Verified , 09/01/07) Home Medications Albuterol Sulfate 2.5 Mg/3 Ml Vial.neb, 2.5 MG IH Q4H Prescribed by: VLADISLAV ROBERT on 08/06/19 112 Amlodipine Besylate 5 Mg Tablet, 10 MG PO DAILY HOLD IF SBP IS LESS THAN 130 Prescribed by: ANALI MENJVIAR on 10/05/18 09 Amoxicillin/Potassium Clav 1 Each Tablet, 1 EACH PO BID Prescribed by: ANALI MENJIVAR on 10/05/18901 Atorvastatin Calcium 20 Mg Tablet, 20 MG PO DAILY, (Reported) Azithromycin 500 Mg Tablet, 500 MG PO DAILY FOR INFECTION Prescribed by: VLADISLAV ROBERT on 08/06/19 112 Cefdinir 300 Mg Capsule, 300 MG PO BID Prescribed by: VLADISLAV ROBERT on 08/06/19 112 Gabapentin 300 Mg Capsule, 300 MG PO HS, (Reported) Gabapentin 100 Mg Capsule, 100 MG PO DAILY, (Reported) Guaifenesin/Dextromethorphan 1 Each Tbmp.12hr, 1 EACH PO BID Prescribed by: VLADISLAV ROBERT on 08/06/191128 Hydralazine HCl 10 Mg Tablet, 10 MG PO Q6H Prescribed by: ANALI MENJIVAR on 10/05/18901 Ipratropium/Albuterol Sulfate 3 Ml Ampul.neb, 3 ML INH RTQ4HR PRN for SOA INHALE [id number] X 2 WEEKS AND Q4HR PRN SHORTNESS OF BREATH Prescribed by: ANALI MENJIVAR on 10/05/18901 Lactobac Cmb #3/Fos/Pantethine 1 Each Capsule, 1 EACH PO BID Prescribed by: ANALI MENJIVAR on 10/05/18901 Loratadine 10 Mg Tablet, 10 MG PO DAILY, (Reported) Losartan Potassium 50 Mg Tablet, 50 MG PO DAILY Prescribed by: ANALI MENJIVAR on 10/05/18901 Methylprednisolone 4 Mg Tab.ds.pk, 4 MG PO UD Prescribed by: VLADISLAV ROBERT on 08/06/191128 Metoprolol Succinate 50 Mg Tab.er.24h, 75 MG PO BID Prescribed by: ANALI MENJIVAR on 10/05/18901 Potassium Chloride 10 Meq Tablet.er, 10 MEQ PO DAILY, (Reported) Prednisone 20 Mg Tab, 20 MG PO DAILY@0700 Prescribed by: ANALI MENJIVAR on 10/05/18901 Rituximab 100 Mg/10 Ml Conc, IV UD, (Reported) RECEIVES ONE DOSE THEN REPEATS IN 2 WEEKS, REPEATS THIS CYCLE EVERY 6 WEEKS. Ubidecarenone 200 Mg Capsule, 200 MG PO DAILY, (Reported) Venlafaxine HCl 150 Mg Cap.er.24h, 150 MG PO DAILY, (Reported) Patient Home Medication List Home Medication List Reviewed: Yes Review of Systems Review of Systems Constitutional: see HPI, chills, fever, malaise EENTM: nose congestion; No throat pain Respiratory: see HPI, cough; No phlegm, No short of breath, No wheezing Cardiovascular: see HPI; No edema, No palpitations, No syncope, No vascular heart diseas Gastrointestinal: no symptoms reported; No abdominal pain, No nausea, No vomiting Genitourinary: no symptoms reported Musculoskeletal: no symptoms reported Skin: no symptoms reported Psychiatric/Neurological: No Symptoms Reported Hematologic/Lymphatic: No Symptoms Reported Immunological/Allergic: no symptoms reported Past Gvbnpeq-Sjngsp-Etarhy Hx Past Med/Social Hx: Reviewed and Corrections made Patient Social History Alcohol Use: Denies Use Recreational Drug Use: No Smoking Status: Never a Smoker 2nd Hand Smoke Exposure: No Recent Foreign Travel: No Contact w/Someone Who Travel: No Recent Infectious Disease Expo: No Recent Hopitalizations: No Immunizations Up To Date Tetanus Booster (TDap): Unknown PED Vaccines UTD: Yes Seasonal Allergies Seasonal Allergies: Yes Past Medical History Surgeries: Yes (ORAL SURGERY) Gallbladder Respiratory: Yes (INTERSTITIAL LUNG DISEASE--NO HOME O2, NO INHALERS OR NEBULIZERS) Cardiac: Yes High Cholesterol, Hypertension Neurological: Yes Neuropathy Reproductive Disorders: No [employer] PROFESSIONAL History: 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 BASELINE CREATININE 1.7 ON AVERAGE) Gastrointestinal: Yes Gastroesophageal Reflux Musculoskeletal: Yes (POLYMYOSITIS) Endocrine: Yes (OVERLAP SYNDROME) Hypothyroidsim HEENT: No Loss of Vision: Denies Hearing Impairment: Denies Cancer: No Psychosocial: Yes Anxiety Integumentary: No Blood Disorders: Yes (ANEMIA) Adverse Reaction/Blood Tranf: No Family Medical History No Pertinent Family Hx Physical Exam Vital Signs - First Documented 08/06/19 08:35 Temp 39.9 Pulse 82 Resp 27 B/P (MAP) 167/86 (113) Pulse Ox 91 O2 Delivery Room Air Capillary Refill : Less Than 3 Seconds Height: 5'1.00" Weight: 169lbs. 4.8oz. 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, no motor/sensory deficits, alert, normal mood/affect, oriented x 3 Skin: normal color, warm/dry Focused Exam Lactate Level 08/06/19 08:45: Lactic Acid Level 2.36*H 08/06/19 10:54: Lactic Acid Level 1.98 Lactic Acid Level Laboratory Tests Test 08/06/19 08:45 08/06/19 10:54 Lactic Acid Level 2.36 MMOL/L (0.50-2.00) *H 1.98 MMOL/L (0.50-2.00) Progress/Results/Core Measures Suspected Sepsis Recent Fever Within 48 Hours: Yes Infection Criteria Present: None New/Unexplained Altered Menta: No Sepsis Screen: No Definite Risk SIRS Temperature: Pulse: 82 Respiratory Rate: 27 Laboratory Tests 08/06/19 08:45: White Blood Count 9.9 Blood Pressure 167 /86 Mean: 113 08/06/19 08:45: Lactic Acid Level 2.36*H 08/06/19 10:54: Lactic Acid Level 1.98 Laboratory Tests 08/06/19 08:45: Creatinine 1.76H, INR Comment 1.0, Platelet Count 273, Total Bilirubin 0.3 Results/Orders Lab Results Laboratory Tests Test 08/06/19 08:45 08/06/19 10:54 08/06/19 11:30 Range/Units White Blood Count 9.9 4.3-11.0 10^3/uL Red Blood Count 4.41 4.35-5.85 10^6/uL Hemoglobin 12.0 11.5-16.0 G/DL Hematocrit 36 35-52 % Mean Corpuscular Volume 82 80-99 FL Mean Corpuscular Hemoglobin 27 25-34 PG Mean Corpuscular Hemoglobin Concent 33 32-36 G/DL Red Cell Distribution Width 14.3 10.0-14.5 % Platelet Count 273 130-400 10^3/uL Mean Platelet Volume 9.8 7.4-10.4 FL Neutrophils (%) (Auto) 63 42-75 % Lymphocytes (%) (Auto) 14 12-44 % Monocytes (%) (Auto) 23 H 0-12 % Eosinophils (%) (Auto) 0 0-10 % Basophils (%) (Auto) 0 0-10 % Neutrophils # (Auto) 6.3 1.8-7.8 X 10^3 Lymphocytes # (Auto) 1.4 1.0-4.0 X 10^3 Monocytes # (Auto) 2.2 H 0.0-1.0 X 10^3 Eosinophils # (Auto) 0.0 0.0-0.3 10^3/uL Basophils # (Auto) 0.0 0.0-0.1 10^3/uL Neutrophils % (Manual) 66 % Lymphocytes % (Manual) 11 % Monocytes % (Manual) 19 % Eosinophils % (Manual) 1 % Basophils % (Manual) 1 % Band Neutrophils 2 % Blood Morphology Comment NORMAL Prothrombin Time 13.8 12.2-14.7 SEC INR Comment 1.0 0.8-1.4 Activated Partial Thromboplast Time 34 24-35 SEC Sodium Level 139 135-145 MMOL/L Potassium Level 3.7 3.6-5.0 MMOL/L Chloride Level 108 H 98-107 MMOL/L Carbon Dioxide Level 21 21-32 MMOL/L Anion Gap 10 5-14 MMOL/L Blood Urea Nitrogen 13 7-18 MG/DL Creatinine 1.76 H 0.60-1.30 MG/DL Estimat Glomerular Filtration Rate 29 BUN/Creatinine Ratio 7 Glucose Level 134 H 70-105 MG/DL Lactic Acid Level 2.36 *H 1.98 0.50-2.00 MMOL/L Calcium Level 9.3 8.5-10.1 MG/DL Corrected Calcium 9.1 8.5-10.1 MG/DL Total Bilirubin 0.3 0.1-1.0 MG/DL Aspartate Amino Transf (AST/SGOT) 19 5-34 U/L Alanine Aminotransferase (ALT/SGPT) 13 0-55 U/L Alkaline Phosphatase 89 40-136 U/L Troponin I < 0.028 <0.028 NG/ML B-Type Natriuretic Peptide 153.8 H <100.0 PG/ML Total Protein 6.4 6.4-8.2 GM/DL Albumin 4.2 3.2-4.5 GM/DL Urine Color YELLOW Urine Clarity CLEAR Urine pH 7.0 5-9 Urine Specific Beverly 1.010 L 1.016-1.022 Urine Protein NEGATIVE NEGATIVE Urine Glucose (UA) NEGATIVE NEGATIVE Urine Ketones NEGATIVE NEGATIVE Urine Nitrite NEGATIVE NEGATIVE Urine Bilirubin NEGATIVE NEGATIVE Urine Urobilinogen 0.2 < = 1.0 MG/DL Urine Leukocyte Esterase NEGATIVE NEGATIVE Urine RBC (Auto) NEGATIVE NEGATIVE Urine RBC NONE /HPF Urine WBC RARE /HPF Urine Squamous Epithelial Cells 0-2 /HPF Urine Crystals NONE /LPF Urine Bacteria NEGATIVE /HPF Urine Casts NONE /LPF Urine Mucus NEGATIVE /LPF Urine Culture Indicated NO Micro Results Microbiology 08/06/19 Influenza Types A,B Antigen (KELLY) - Final, Complete My Orders Orders - VLADISLAV ROBERT DO Influenza A And B Antigens (08/06/19 08:18) Cbc With Automated Diff (08/06/19 08:53) Comprehensive Metabolic Panel (08/06/19 08:53) Blood Culture (08/06/19 08:53) Sputum Culture (08/06/19 08:53) Urinalysis (08/06/19 08:53) Urine Culture (08/06/19 08:53) Protime With Inr (08/06/19 08:53) Partial Thromboplastin Time (08/06/19 08:53) Ed Iv/Invasive Line Start (08/06/19 08:53) Ed Iv/Invasive Line Start (08/06/19 08:53) Troponin I (08/06/19 08:53) Vital Signs Adult Sepsis Patie Q15M (08/06/19 08:53) O2 (08/06/19 08:53) Remove Rings In Anticipation O (08/06/19 08:53) Lactic Acid Analyzer (08/06/19 08:53) Ns Iv 1000 Ml (Sodium Chloride 0.9%) (08/06/19 08:53) Chest Pa/Lat (2 View) (08/06/19 08:53) Methylprednisolone Sod Succ (Solu-Medrol (08/06/19 09:00) Manual Differential (08/06/19 08:45) BNP (08/06/19 09:39) Ceftriaxone For Iv Use (Rocephin For I (08/06/19 09:45) Azithromycin Injection (Zithromax Inject (08/06/19 09:45) Albuterol/Ipra Inhalation Soln (Duoneb I (08/06/19 09:45) Rt Request For Service (08/06/19 09:43) Svn Small Volume Nebulizer (08/06/19 09:43) 1/2 Ns Iv Solution (0.45% Sodium Chlorid (08/06/19 09:45) Medications Given in ED Current Medications Medications Dose Ordered Sig/Shannan Route Start Time Stop Time Status Last Admin Dose Admin Albuterol/ Ipratropium 3 ml ONCE ONCE INH 08/06/19 09:45 08/06/19 09:46 DC 08/06/19 09:52 3 ML Azithromycin 500 mg/Sodium Chloride 250 ml @ 250 mls/hr ONCE ONCE IV 08/06/19 09:45 08/06/19 10:44 DC 08/06/19 10:16 250 MLS/HR Ceftriaxone Sodium 1000 mg/ Sterile Water 10 ml @ 200 mls/hr ONCE ONCE IV 08/06/19 09:45 08/06/19 09:47 DC 08/06/19 10:16 200 MLS/HR Methylprednisolone Sodium Succinate 125 mg ONCE ONCE IVP 08/06/19 09:00 08/06/19 09:01 DC 08/06/19 09:06 125 MG Vital Signs/I&O 08/06/19 08/06/19 08:35 09:52 Temp 39.9 Pulse 82 Resp 27 B/P (MAP) 167/86 (113) Pulse Ox 91 95 O2 Delivery Room Air Room Air Capillary Refill : Less Than 3 Seconds Blood Pressure Mean: 113 Progress Note : Progress Note UNEVENTFUL ER STAY NO COUGH NOTED AT ANY TIME PT HAD NO COMPLAINTS OF ANY KIND VITALS STABLE Diagnostic Imaging Comments CXR--NO ACUTE PROCESS, PER RADIOLOGIST REPORT AT 926 Reviewed: Reviewed by Me Departure Impression Primary Impression: Bronchitis Additional Impression: Influenza-like symptoms Disposition: HOME, SELF-CARE Condition: Stable Departure-Patient Inst. Referrals: ANALI MENJIVAR MD (PCP/Family) Primary Care Physician Patient Instructions: Acute Bronchitis, Adult (DC) Add. Discharge Instructions: HOME, REST LOTS OF CLEAR LIQUIDS TYLENOL 1 GRAM 4 TIMES A DAY FOR PAIN OR FEVER FOLLOW UP WITH DR. MENJIVAR IN 3-4 DAYS IF NO BETTER, RETURN TO ER IF WORSE All discharge instructions reviewed with patient and/or family. Voiced understanding. Scripts Nebulizer (Compact Compressor Nebulizer) 1 Each Each EACH MC for BREATHING, #1 Prov: VLADISLAV ROBERT DO 08/06/19 Albuterol Sulfate (Albuterol Sulfate) 2.5 Mg/3 Ml Vial.neb 2.5 MG IH Q4H, #1 EA Prov: YESICA,VLADISLAV K DO 08/06/19 Guaifenesin/Dextromethorphan (Mucinex Dm ER 1,200-60 mg Tab) 1 Each Tbmp.12hr 1 EACH PO BID for 10 Days, #20 EA Prov: VLADISLAV ROBERT DO 08/06/19 Methylprednisolone (Medrol) 4 Mg Tab.ds.pk 4 MG PO UD, #1 PKG Prov: VLADISLAV ROBERT DO 08/06/19 Azithromycin (Zithromax) 500 Mg Tablet 500 MG PO DAILY, #5 TAB FOR INFECTION Prov: VLADISLAV ROBERT DO 08/06/19 Cefdinir (Cefdinir) 300 Mg Capsule 300 MG PO BID for FOR INFECTION, #20 CAP Prov: VLADISLAV ROBERT DO 08/06/19 VLADISLAV ROBERT DO Aug 06, 2019 09:27
[2019-08-06 09:38] LABS: BAND NEUTROPHILS 2 %; BASOPHILS % (MANUAL) 1 %; EOSINOPHILS % (MANUAL) 1 %; LYMPHOCYTES % (MANUAL) 11 %; MONOCYTES % (MANUAL) 19 %; NEUTROPHILS % (MANUAL) 66 %; RBC MORPH NORMAL
[2019-08-06] MEDS ORDERED: AZITHROMYCIN INJECTION 500 MG in NS (IVPB) 250 ML IV ONE (09:45)
[2019-08-06] MEDS ORDERED: RT-ALBUTEROL/IPRATROPIUM 3 ML (DUONEB) VIAL INH ONE (09:45)
[2019-08-06] MEDS ORDERED: cefTRIAXone FOR IV USE 1,000 MG in WATER (STERILE) FOR INJECTION 10 ML IV ONE (09:45)
[2019-08-06] MEDS ORDERED: 1/2 NS IV SOLUTION 1,000 ML IV SCH (09:45)
[2019-08-06] MEDS ORDERED: CEFD300C3 PO (11:29)
[2019-08-06] MEDS ORDERED: NEBU1KIT3 MC (11:29)
[2019-08-06] MEDS ORDERED: ALBU2.5V4 IH (11:29)
[2019-08-06] MEDS ORDERED: METH4TAB PO (11:29)
[2019-08-06] MEDS ORDERED: AZIT500T PO (11:29)
[2019-08-06] MEDS ORDERED: GUAI1TBM19 PO (11:29)
[2019-08-06 11:40] LABS: BILIRUBIN,URINE NEGATIVE (NEGATIVE); CLARITY,URINE CLEAR; COLOR,URINE YELLOW; GLUCOSE, URINE (UA) NEGATIVE (NEGATIVE); KETONES,URINE NEGATIVE (NEGATIVE); LEUKOCYTE ESTERASE ,URINE NEGATIVE (NEGATIVE); NITRITE,URINE NEGATIVE (NEGATIVE); PROTEIN,URINE NEGATIVE (NEGATIVE)
[2019-08-06 11:49] LABS: BACTERIA,URINE NEGATIVE /HPF; SQUAMOUS EPITHELIAL CELL,UR 0-2 /HPF; WBC,URINE RARE /HPF
[2019-08-06 11:57] VITALS: BP 139/65
--- OUTSIDE RECORDS SUMMARY | 2019-08-14 06:04 | XMS REPORT | Encounter Summary ---
Author Author [facility] Organization [facility] Address Unknown Phone Unavailable Care Team Providers [facility] Aide Name Role Phone Damian Lamar MD Unavailable Meghana Maya MD PCP Brad Marr RN 2 Unavailable Buck Sol MD Unavailable Neo Burrell MD Unavailable Mychart, Generic Provider Unavailable Unavailable Fly Hyatt MD Unavailable Dione Vera MD Unavailable Madhav Morales MD Unavailable Brooke Lugo RN Unavailable Unavailable Reason for Visit * Reason Comments Medication Refill Gabapentin Encounter Details Care Team Description Date Type Department aJi Salas MD [address] [facility] [place] [address] 08/03/2019 Refill [facility] - [facility] Level [address]A [address] [place] [address] Social History Date Tobacco Use Types Packs/Day Years Used Never Smoker Smokeless Tobacco: Never Used Drinks/Week oz/Week Comments Alcohol Use 0 Standard drinks or equivalent 0.0 No Sex Assigned at Date Recorded Not on file Industry Job Start Date Occupation Not on file Not on file Not on file Travel End Travel History Travel Start No recent travel history available. documented as of this encounter Functional Status Date of Assessment Functional Status Response 10/24/2018 Does the patient have a hearing impairment: No 09/26/2018 Does the patient have a visual impairment: Yes 10/24/2018 Does the patient have impaired ambulation: No 10/24/2018 Does the patient have an activity of daily living No (ADL) impairment: 10/24/2018 Does the patient have an instrumental activity of No daily living (IADL) impairment: Date of Assessment Cognitive Status Response 10/24/2018 Does the patient have a cognitive impairment: No documented as of this encounter Miscellaneous Notes * Telephone Encounter - Brooke Lugo RN - 08/06/2019 11:56 AM [facility] requesting a refill of Gabapentin. Patient last seen 05/14/19. Follow u p scheduled 10/02/19. Per last OV note nothing noted regarding Gabapentin dosing . Routing to Dr. Sorto to review and approve refill. [facility] documented in this encounter Plan of Treatment Not on filedocumented as of this encounter Visit Diagnoses Not on filedocumented in this encounter
--- OUTSIDE RECORDS SUMMARY | 2019-08-14 06:04 | XMS REPORT | Encounter Summary ---
Author Author [facility] Organization [facility] Address Unknown Phone Unavailable Care Team Providers Care Process Assistant Name Role Phone Damian Lamar MD Unavailable Meghana Maya MD PCP Brad Marr RN 2 Unavailable Buck Sol MD Unavailable Neo Burrell MD Unavailable Mychart, Generic Provider Unavailable Unavailable Fly Hyatt MD Unavailable Dione Vera MD Unavailable Madhav Morales MD Unavailable Brooke Lugo RN Unavailable Unavailable Encounter Details Care Team Description Date Type Department Monik Sorto, DO [address] [facility] [address] [place] [address] [phone] 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
--- OUTSIDE RECORDS SUMMARY | 2019-08-14 06:04 | XMS REPORT | Encounter Summary ---
Author Author [facility] Organization [facility] Address Unknown Phone Unavailable Care Team Providers Care Core Setter Name Role Phone Damian Lamar MD Unavailable Meghana Maya MD PCP Brad Marr RN 2 Unavailable Buck Sol MD Unavailable Neo Burrell MD Unavailable Mychart, Generic Provider Unavailable Unavailable Fly Hyatt MD Unavailable Dione Vera MD Unavailable Madhav Morales MD Unavailable Brooke Lugo RN Unavailable Unavailable Encounter Details Care Team Description Date Type Department Provider, Historical 04/23/2019 Orders Only The [id number] [place] [address] Social History Date Tobacco Use Types Packs/Day [...] Procedures Comments Procedure Name Priority Date/Time Associated Diag nosis IRON + BINDING CAPACITY + Routine 04/04/2019 %SAT+ FERRITIN CBC AND DIFF Routine 04/04/2019 FERRITIN Routine 04/04/2019 documented in this encounter Results * FERRITIN (04/04/2019) Ferritin OTHER OUTSIDE LAB Specimen Blood - Blood Narrative Performed At This result has an attachment that is n ot available. Performing Organization Address City/State/Zipcode Ph one Number OTHER OUTSIDE LAB * IRON + BINDING CAPACITY + %SAT+ FERRITIN (04/04/2019) Iron OTHER OUTSIDE LAB % Saturation OTHER OUTSIDE LAB Iron OTHER OUTSIDE Binding-TIBC LAB Ferritin OTHER OUTSIDE LAB Specimen Blood Narrative Performed At This result has an attachment that is n ot available. Performing Organization Address City/State/Zipcode Ph one Number OTHER OUTSIDE LAB * CBC AND DIFF (04/04/2019) White Blood OTHER OUTSIDE Cells LAB RBC OTHER OUTSIDE LAB Hemoglobin OTHER OUTSIDE LAB Hematocrit OTHER OUTSIDE LAB MCV OTHER OUTSIDE LAB MCH OTHER OUTSIDE LAB MCHC OTHER OUTSIDE LAB Platelet Count OTHER OUTSIDE LAB MPV OTHER OUTSIDE LAB RDW OTHER OUTSIDE LAB Neutrophils OTHER OUTSIDE LAB Absolute OTHER OUTSIDE Neutrophil LAB Count Lymphocytes OTHER OUTSIDE LAB Absolute Lymph OTHER OUTSIDE Count LAB Monocytes OTHER OUTSIDE LAB Absolute OTHER OUTSIDE Monocyte Count LAB Eosinophil OTHER OUTSIDE LAB Absolute OTHER OUTSIDE Eosinophil LAB Count Basophils OTHER OUTSIDE LAB Absolute OTHER OUTSIDE Basophil Count LAB Atypical Lym OTHER OUTSIDE LAB Metamyelocyte OTHER OUTSIDE LAB Myelocyte OTHER OUTSIDE LAB Promyelocyte OTHER OUTSIDE LAB Blast OTHER OUTSIDE LAB RBC Morph OTHER OUTSIDE LAB WBC Morphology OTHER OUTSIDE LAB Specimen Blood - Blood Narrative Performed At This result has an attachment that is n ot available. Performing Organization Address City/State/Zipcode Ph one Number OTHER OUTSIDE LAB documented in this encounter Visit Diagnoses Not on filedocumented in this encounter
--- OUTSIDE RECORDS SUMMARY | 2019-08-14 06:04 | XMS REPORT | Encounter Summary ---
Author Author [facility] Organization [facility] Address Unknown Phone Unavailable Care Team Providers Care Telemarketer Supervisor Name Role Phone Damian Lamar MD Unavailable Meghana Maya MD PCP Brad Marr RN 2 Unavailable Buck Sol MD Unavailable Neo Burrell MD Unavailable Mychart, Generic Provider Unavailable Unavailable Fly Hyatt MD Unavailable Dione Vera MD Unavailable Madhav Morales MD Unavailable Brooke Lugo RN Unavailable Unavailable Reason for Visit * Reason Comments Other lab Encounter Details Care Team Description Date Type Department Monik Sorto, DO [address] [facility] [address] [place] [address] Other (lab) 04/19/2019 Telephone [facility] [address] [place] [address] Social History Date Tobacco Use Types Packs/Day [...] encounter Miscellaneous Notes * Telephone Encounter - Monik Sorto DO - 05/17/2019 4:43 PM MACHINE INSTALLER I actually gave her a lab print out for her to have it done at [facility] at her [facility] nt office visit. Hopefully, she has them done in the next week. Thanks. INE INSTALLER * Telephone Encounter - Marietta Williamson RN - 05/17/2019 2:57 PM MACHINE INSTALLER Called [facility], confirmed patient has not updated IMMUNOGLOBULINS-IGA,IGG,IGM or dered 04/06/2019. Routing to Dr. Sorto as FYI. INE INSTALLER * Telephone Encounter - Marietta Williamson RN - 04/19/2019 9:42 AM CDT Called and advised patient to repeat immunoglobulins 1 month from prior, end of March 2019 or early April 2019. Patient verbalized understanding, requested order to be faxed to [facility] [place], [place] fax: [phone]. Lab order faxed, confirmation received. Patient will let us know once completed. ----- Message from Monik Sorto DO sent at 04/06/2019 12:25 PM CDT ----- Can you please let Ms. Angel know that I have ordered another immunoglobulin le rachele to be checked in about 1 month. Thanks. documented in this encounter Plan of Treatment Not on filedocumented as of this encounter Visit Diagnoses Not on filedocumented in this encounter
--- OUTSIDE RECORDS SUMMARY | 2019-08-14 06:04 | XMS REPORT | Encounter Summary ---
Author Author [facility] Organization [facility] Address Unknown Phone Unavailable Care Team Providers Care Head Of Sales Promotion Name Role Phone Damian Lamar MD Unavailable Meghana Maya MD PCP Brad Marr RN 2 Unavailable Buck Sol MD Unavailable Neo Burrell MD Unavailable Mychart, Generic Provider Unavailable Unavailable Fly Hyatt MD Unavailable Dione Vera MD Unavailable Madhav Morales MD Unavailable Brooke Lugo RN Unavailable Unavailable Reason for Visit * Reason Comments Records Request Dr Maya Encounter Details Care Team Description Date Type Department Hortencia Urban, TONYA [address] [place] [address] Records Request (Dr Maya) 04/02/2019 Telephone [facility] [address] [place] [address] Social History Date Tobacco Use Types Packs/Day [...] encounter Miscellaneous Notes * Telephone Encounter - Marietta Williamson RN - 04/10/2019 11:07 AM CDT Medication list updated, routing to Donta Urban APRN as FYI - also see outside labs scanned to Outside Records. Please also reference 03/30/19 telephone encount er correspondence. * Telephone Encounter - Padmini Lozada - 04/05/2019 10:51 AM CDT Office note received with current medication list and given to the RN to update the account before being scanned to on base. * Telephone Encounter - Padmini Lozada - 04/04/2019 12:17 PM CDT Faxed request for medication list to Dr Maya @ [phone]. Confirmation re ceived @ 10:52am * Telephone Encounter - Padmini Lozada - 04/03/2019 4:10 PM CDT Lab results received and sent to on base to be scanned. * Telephone Encounter - Padmini Lozada - 04/02/2019 12:44 PM CDT Crystal, I saw Ms. Angel yesterday, and she said she had recent labs drawn in [place], [place] ordered by her PCP Dr. Meghana Maya. She said was started on a thyroid med ication but didn't remember details about it. Can you please request any recent labs and updated medications they have started her on? Thank you. Hortencia Faxed request for lab results and medication list to Dr Maya @ [phone]. Confirmation received @ 10:59am documented in this encounter Plan of Treatment Not on filedocumented as of this encounter Visit Diagnoses Not on filedocumented in this encounter
--- OUTSIDE RECORDS SUMMARY | 2019-08-14 06:04 | XMS REPORT | Encounter Summary ---
Author Author [facility] Organization [facility] Address Unknown Phone Unavailable Care Team Providers Care Instrumental Teacher Name Role Phone Damian Lamar MD Unavailable Meghana Maya MD PCP Brad Marr RN 2 Unavailable Buck Sol MD Unavailable Neo Burrell MD Unavailable Mychart, Generic Provider Unavailable Unavailable Fly Hyatt MD Unavailable Dione Vera MD Unavailable Madhav Morales MD Unavailable Brooke Lugo RN Unavailable Unavailable Reason for Visit * Reason Comments Follow-up Phone Call Encounter Details Care Team Description Date Type Department Monik Sorto, DO [address] [facility] [address] [place], [place] [id number] Follow-up Phone Call 03/30/2019 Telephone The [address] [place], [place] [id number] Social History Date Tobacco Use Types Packs/Day [...] Telephone Encounter - Marietta Williamson RN - 04/02/2019 2:18 PM CDT Patient left voicemail requesting return call to review results. Called and advised patient per results and recommendations below. Patient verbal ized understanding, will follow-up with PCP regarding management of thyroid and to check iron levels. Result letter faxed to PCP , fax confirmation received. Called Kimberly with Dr. Maya [phone], updated regarding results and recommendatio ns, she will communicate with patient, will let us know if Dermatology referral needed. Offered appointment 05/14/2019 10:00 AM CFT, patient confirmed, scheduled per Ad min. Provided patient with phone number for Social Work as she is only working p art time, is without insurance, "not old enough for Medicare", states someone at recently helped her with her Bills. * Telephone Encounter - Monik Sorto DO - 03/30/2019 4:24 PM CDT Marietta, please review the following lab results with the pt: -Blood counts look good, are stable. -Kidney function is slightly elevated, which is at pt's baseline. -CRP, marker of inflammation, is normal. -IgG level is low. This is expected - this lets us know rituximab is working. Rituximab does suppress her immune system. This is a known side effect, that was discussed when ritxuimab was started. The idea is that her immune system is ove ractive and the rituximab calms it down. Being on ritxuimab makes her more susce ptible to infections. Rituximab is not associated with hair loss. Hypothyroidism can cause hair loss. Anemia can also cause hair loss, so speaking to PCP about checking iron levels m ay be helpful. After additional evaluation by PCP, and after getting thyroid africa ated, if no improvement in hair loss, I can refer her to a structures engineer in the community for hair loss (none of the dermatologists at specialize in hair los s). Pt also needs to schedule a follow-up with me. Thanks. * Telephone Encounter - Marietta Williamson RN - 03/30/2019 3:18 PM CDT Patient left voicemail requesting return call to follow-up on results from and "issues with auto-immune deficiency" that she discussed with Donta Urban APRN 03/28/2019. Also received call from [facility] with Dr. Maya [phone] stating patient was anxious about results and thinning hair/hair falling out. Called Kimberly, states patient obtained TSH and Free T4 03/12/19, TSH 4.82 was ramona l per Kimberly, Free T4 0.55 (reference range 0.61-1.2) mildly low and Dr. Maya prescribed levothyroxine 25mcg daily. Left voicemail advising patient nurse will follow-up with Dr. Sorto regarding re sults and recommendations, including patient's concerns discussed in 03/28/[address] vis it. Routing to Dr. Sorto for review and recommendations. documented in this encounter Plan of Treatment Not on filedocumented as of this encounter Visit Diagnoses Not on filedocumented in this encounter
--- OUTSIDE RECORDS SUMMARY | 2019-08-14 06:04 | XMS REPORT | Clinical Summary ---
Author Author [facility] Organization [facility] Address Unknown Phone Unavailable Care Team Providers Care Tensioning Machine Operator Name Role Phone Damian Lamar MD Unavailable Meghana Maya MD PCP Brad Marr RN 2 Unavailable Buck Sol MD Unavailable Neo Burrell MD Unavailable Mychart, Generic Provider Unavailable Unavailable Fly Hyatt MD Unavailable Dione Vera MD Unavailable Madhav Morales MD Unavailable Brooke Lugo RN Unavailable Unavailable Source Comments Some departments are not documenting in the electronic medical record. If you d o not see the information that you expected, contact Release of Information in [facility] Health Information Management department at [phone] for further assistan ce in locating additional records.[facility] Allergies Comments Active Allergy Reactions Severity Noted Date Seasonal Allergies RHINORRHEA, Low 12/09/2016 SNEEZING Medications End Date Status Medication Sig Dispensed Refills Start Date Active venlafaxine XR (EFFEXOR Take 150 mg 0 XR) 150 mg capsule by mouth daily. Active coenzyme Q10(+) 100 mg Take 100 mg 0 cap by mouth once. Active cloNIDine (CATAPRESS) 0.1 Take 0.1 mg 06/27 5/201 mg tablet by mouth 8 twice daily. Active metoprolol XL (TOPROL XL) 4 50 mg extended release 8 tablet Active potassium chloride Take 10 mEq 4 (K-DUR) 10 mEq tablet by mouth 8 daily. Active prednisone (DELTASONE) 10 Take two 60 tablet 11 mg tablet tablets by 9 mouth daily with breakfast. Active atorvastatin (LIPITOR) 20 Take 20 mg by 0 mg tablet mouth daily. Active losartan (COZAAR) 50 mg Take 50 mg by 0 tablet mouth daily. Active OXYBUTYNIN CHLORIDE PO Take 5 mg by 0 mouth. Take one-half tab PO daily Active levothyroxine (SYNTHROID) Take 25 mcg 0 25 mcg tablet by mouth daily 30 minutes before breakfast. Active minoxidil (LONITEN) 2.5 Take 2.5 mg 0 mg tablet by mouth twice daily. Active mycophenolate mofetil Take one 180 tablet 0 04/27 (CELLCEPT) 500 mg tablet tablet by 9 mouth twice daily. Take on an empty stomach. Active gabapentin (NEURONTIN) Take one 90 capsule 1 300 mg capsule capsule by 0 mouth at bedtime daily. 08/06/2019 Discontinued gabapentin (NEURONTIN) TAKE ONE 90 capsule 1 300 mg capsule CAPSULE BY 9 MOUTH EVERY NIGHT AT BEDTIME Active Problems Problem Noted Date Uncontrolled hypertension 05/15/2019 Alopecia 05/14/2019 Meralgia paraesthetica, right 09/07/2018 Long-term current use of rituximab 09/07/2018 Weakness 09/07/2018 Hyperhidrosis 12/11/2016 Neuropathy 12/11/2016 Gastroesophageal reflux disease without esophagitis 11/08/2016 Current chronic use of systemic steroids 05/14/2016 Obesity, Class I, BMI 30-34.9 05/14/2016 Overview: BMI 34.8 on 05/13/2016 Encounter for long-term (current) use of high-risk me dication 05/13/2016 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 10/06/2015 Chronic respiratory failure with hypoxia 10/06/2015 ILD (interstitial lung disease) 10/06/2015 Positive GEMA (antinuclear antibody) 08/21/2015 P-ANCA and MPO antibodies positive 08/21/2015 Weakness of right hip 08/21/2015 Myositis associated antibody positive 08/21/2015 Respiratory distress 07/20/2015 Polymyositis associated with autoimmune disease Encounters Care Team Description Date Type Specialty Jai Salas MD 08/03/2019 Refill Allergy,Immunology and Rheumatology Monik Sorto, DO Follow-up Phone Call (need for labs) 06/11/2019 Telephone Rheumatology Monik Sorto, 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); Polymyositis with respiratory involvement (HCC); Long-term current use of rituximab; Encounter for long-term (current) use of high-risk medication; Myositis associated antibody positive; Alopecia; Uncontrolled hypertension 05/14/2019 Office Visit Rheumatology from Last 3 Months Immunizations Name Administration Dates Next Due Flu Vaccine =>6 Months 05/14/2019 Quadrivalent PF Family History Medical History Relation Name Comments None Reported Brother Arthritis-rheumatoid Brother Juvenile onset None Reported Father Hypertension Maternal Grandmother Cancer Mother Hypertension Mother Relation Name Status Comments Brother Alive Brother Other Father Maternal Grandmother Other Mother Social History Date Tobacco Use Types [...] travel history available. Last Filed Vital Signs Reading Time Taken Comments Vital Sign 186/84 05/14/2019 10:13 AM TILE GRADER Blood Pressure 60 05/14/2019 10:13 AM TILE GRADER Pulse 36.7 C (98 F) 05/14/2019 10:13 AM TILE GRADER Temperature 17 05/14/2019 10:13 AM TILE GRADER Respiratory Rate 97% 05/14/2019 10:13 AM TILE GRADER Oxygen Saturation - - Inhaled Oxygen Concentration 78.7 kg (173 lb 6.4 oz) 05/14/2019 10:13 AM TILE GRADER Weight 154.9 cm (5' 1") 05/14/2019 10:13 AM TILE GRADER Height 32.76 05/14/2019 10:13 AM TILE GRADER Body Mass Index Plan of Treatment Health Maintenance Due Date Last Done Comments DTAP/TDAP VACCINES (1 - 11/01/1967 Tdap) PHYSICAL (COMPREHENSIVE) 1974 EXAM CERVICAL CANCER SCREENING 1986 BREAST CANCER SCREENING 1996 COLORECTAL CANCER 2006 SCREENING SHINGLES RECOMBINANT 2006 VACCINE (1 of 2) HEPATITIS C SCREENING Completed 07/20/2015 HIV SCREENING Completed 07/20/2015 INFLUENZA VACCINE Completed 05/14/2019 Results Not on filefrom Last 3 Months Advance Directives Patient Agriscience Teacher Explanation Type Date Recorded Advance Directive/DPOA Date Inactivated Comments Code Status Date Activated 07/27/2015 4:09 PM Full Code 07/20/2015 4:54 PM Provider has discussed Code Status Yes w/Patient or Family?
--- OUTSIDE RECORDS SUMMARY | 2019-08-14 06:04 | XMS REPORT | Encounter Summary ---
Author Author [facility] Organization [facility] Address Unknown Phone Unavailable Care Team Providers Care Wood Furniture Assembler Name Role Phone Damian Lamar MD Unavailable Meghana Maya MD PCP Brad Marr RN 2 Unavailable Buck Sol MD Unavailable Neo Burrell MD Unavailable Mychart, Generic Provider Unavailable Unavailable Fly Hyatt MD Unavailable Dione Vera MD Unavailable Madhav Morales MD Unavailable Brooke Lugo RN Unavailable Unavailable Reason for Visit * Reason Comments General Question Encounter Details Care Team Description Date Type Department Fly Hyatt MD [address] [facility] [address] [place] [address] General Question 04/05/2019 Telephone [facility] [address] [place] [address] Social History Date Tobacco Use [...] encounter Miscellaneous Notes * Telephone Encounter - Lacie Parker RN - 04/05/2019 3:12 PM CDT Carolann Angel called today stating she has been losing her hair for several we eks now. She followed up with her PCP and Photograph Retoucher who have advised her to start using Rogaine but they also wanted her to make sure it was okay with Dr. Hyatt prior to using it, they stated it could affect her breathing and pulmona ry function. Message sent to Dr. Hyatt for recommendation, awaiting response at this time. 04/06/19 @ 0914: Per Dr. Hyatt, he is fine with her using Rogaine at this time. Patient notifie d, verbalized understanding and will call with any other questions or concerns. documented in this encounter Plan of Treatment Not on filedocumented as of this encounter Visit Diagnoses Not on filedocumented in this encounter
--- OUTSIDE RECORDS SUMMARY | 2019-08-14 06:04 | XMS REPORT | Encounter Summary ---
Author Author [facility] Organization [facility] Address Unknown Phone Unavailable Care Team Providers Care Service Learning Coordinator Name Role Phone Damian Lamar MD Unavailable Meghana Maya MD PCP Brad Marr RN 2 Unavailable Buck Sol MD Unavailable Neo Burrell MD Unavailable Mychart, Generic Provider Unavailable Unavailable Fly Hyatt MD Unavailable Dione Vera MD Unavailable Madahv Morales MD Unavailable Brooke Lugo RN Unavailable Unavailable Reason for Visit * Reason Comments Follow-up Phone Call need for labs Encounter Details Care Team Description Date Type Department Monik Sorto, DO [address] [facility] [address] [place] [address] Follow-up Phone Call (need for labs) 06/11/2019 Telephone [facility] [address] [place], [place] [id number] [place] [address] Social History Date Tobacco Use [...] Telephone Encounter - Brooke Lugo RN - 08/03/2019 3:43 PM CARD PROCESSING CLERK Pt called and lvm for a return call regarding nephrology and labs. Called pt and notified her that nephrology had attempted to contact her for an appt last year, but they had trouble contacting her. Provided pt phone number to contact Nephr qamar at [phone]. Pt stated understanding and will call to schedule appt. P t also states she had labs drawn on Tuesday at [facility] in [place], [place]. Will call [facility] lab next week at to request results. Pt also notified of follow up appt and requested a later time that day. Transfer red pt to scheduling to see if they had a later time for her to come in for appt . Pt had no further questions at this time. PROCESSING CLERK * Telephone Encounter - Marietta Williamson RN - 06/12/2019 10:27 AM CARD PROCESSING CLERK Called patient, states she has not obtained labs yet "I've been so busy", states with the holidays she has accrued additional expenses, she will likely postpone labs until after [place]. Advised patient to let us know once labs obtained. Patient verbalized understanding, states she will either go to [facility] or [facility] in [place]. Patient states the travel expenses to [place] would likely c ancel out any benefit of the discount at [facility]. PROCESSING CLERK * Telephone Encounter - Marietta Williamson RN - 06/11/2019 12:02 PM CARD PROCESSING CLERK Called [facility] , no recent results on file for patient since last seen by Dr. Sorto 05/14/19. Left voicemail advising patient to return call to further discuss if and where l abs were drawn since last visit. PROCESSING CLERK documented in this encounter Plan of Treatment Not on filedocumented as of this encounter Visit Diagnoses Not on filedocumented in this encounter
--- OUTSIDE RECORDS SUMMARY | 2019-08-14 06:04 | XMS REPORT | Encounter Summary ---
Author Author [facility] Organization [facility] Address Unknown Phone Unavailable Care Team Providers Care Senior Validation Engineer Name Role Phone Damian Lamar MD Unavailable Meghana Maya MD PCP Brad Marr RN 2 Unavailable Buck Sol MD Unavailable Neo Burrell MD Unavailable Mychart, Generic Provider Unavailable Unavailable Fly Hyatt MD Unavailable Dione Vera MD Unavailable Madhav Morales MD Unavailable Brooke Lugo RN Unavailable Unavailable Encounter Details Care Team Description Date Type Department Michael Cleveland Antwon 04/05/2019 Orders Only The [address] [address] Social History Date Tobacco Use Types Packs/Day [...]
--- OUTSIDE RECORDS SUMMARY | 2019-08-14 06:04 | XMS REPORT | Encounter Summary ---
Author Author [facility] Organization [facility] Address Unknown Phone Unavailable Care Team Providers Care Medical Economics Consultant Name Role Phone Damian Lamar MD Unavailable Meghana Maya MD PCP Brad Marr RN 2 Unavailable Buck Sol MD Unavailable Neo Burrell MD Unavailable Mychart, Generic Provider Unavailable Unavailable Fly Hyatt MD Unavailable Dione Vera MD Unavailable Madhav Morales MD Unavailable Brooke Lugo RN Unavailable Unavailable Reason for Visit * Reason Comments Financial Concerns VM Encounter Details Care Team Description Date Type Department Monik Sorto, DO [address] [facility] [address] [place] [address] Financial Concerns (VM) 04/04/2019 Telephone The [address] [place], [place] [id number] Social History Date Tobacco Use Types Packs/Day [...] encounter Miscellaneous Notes * Telephone Encounter - Jef Baltazar - 04/05/2019 4:20 PM CDT 04-04-19 VM received from pt requesting a return call to discuss options for fi nancing labs and doctor appts. 04-05-19 Return call placed. SW denied being with the billing dept and unable to address financial aspects of pts request (e.g. Financing labs/visits). LALO en couraged pt to visit with the billing dept for more info about this. Pt acknowl edged this noting she's received 100% financial asst but isn't sure how this uyen lies to seeing the doctor. SW again encouraged pt to f/u with the billing dept for answers to specific questions like this. Agreed. Pt notes MAG where she ge ts her labs said that she could get asst from [facility] and [facility]. SW again encouraged pt to f/u with the source directly (e.g. [facility]) but noted pt can request that [facility] send her labs to [facility]. SW denied any knowledge about up front costs due to being uninsured. Pt acknowledged this. SW encouraged pt to go directly to [facility] vs [facility] Pt confirmed she's [place] from . Various [facility] locations noted as [place] [place] [place] the roney s[place] to pts zip code. SW agreed to mail pt this info for further f/u. Accepted . Pt also confirmed applying for Disability in September. SW agreed to also mail p t a Medicaid application. Accepted. Additional active listening and support pr ovided. SW agreed to mail resource info and encouraged pt f/u with the billing dept. Agreed. Call concluded. 04-06-19 [facility] locations and [place] Medicaid application mailed to pt as noted. documented in this encounter Plan of Treatment Not on filedocumented as of this encounter Visit Diagnoses Not on filedocumented in this encounter
--- OUTSIDE RECORDS SUMMARY | 2019-08-14 06:04 | XMS REPORT | Encounter Summary ---
Author Author [facility] Organization [facility] Address Unknown Phone Unavailable Care Team Providers Care Quality Control Representative Name Role Phone Damian Lamar MD Unavailable Meghana Maya MD PCP Brad Marr RN 2 Unavailable Buck Sol MD Unavailable Neo Burrell MD Unavailable Mychart, Generic Provider Unavailable Unavailable Fly Hyatt MD Unavailable Dione Vera MD Unavailable Madhav Morales MD Unavailable Brooke Lugo RN Unavailable Unavailable Reason for Referral * Consult, Test & Treat (Routine) Referred By Contact Referred To Contact Status Reason Specialty Diagnoses / Procedures Radha Chase MD [address] [place] [address] [facility] [address] [place] [address] New Request Specialty Services Nephrology Diagnoses Required 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) Long-term current use of rituximab Encounter for long-term (current) use of high-risk medication Myositis associated antibody positive Alopecia Reason for Visit * Reason Comments Office Visit Follow Up Encounter Details Care Team Description Date Type Department Monik Sorto DO [address] [facility] [address] [place], [place] [id number] 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); Polymyositis with respiratory involvement (HCC); Long-term current use of rituximab; Encounter for long-term (current) use of high-risk medication; Myositis associated antibody positive; Alopecia; Uncontrolled hypertension 05/14/2019 Office Visit [facility] [address] [facility] [id number] [place] [address] Social History Date Tobacco Use Types Packs/Day [...] of this encounter Last Filed Vital Signs Reading Time Taken Comments Vital Sign 186/84 05/14/2019 10:13 AM HOSPITAL MEDICAL ASSISTANT Blood Pressure 60 05/14/2019 10:13 AM HOSPITAL MEDICAL ASSISTANT Pulse 36.7 C (98 F) 05/14/2019 10:13 AM HOSPITAL MEDICAL ASSISTANT Temperature 17 05/14/2019 10:13 AM HOSPITAL MEDICAL ASSISTANT Respiratory Rate 97% 05/14/2019 10:13 AM HOSPITAL MEDICAL ASSISTANT Oxygen Saturation - - Inhaled Oxygen Concentration 78.7 kg (173 lb 6.4 oz) 05/14/2019 10:13 AM HOSPITAL MEDICAL ASSISTANT Weight 154.9 cm (5' 1") 05/14/2019 10:13 AM HOSPITAL MEDICAL ASSISTANT Height 32.76 05/14/2019 10:13 AM HOSPITAL MEDICAL ASSISTANT Body Mass Index documented in this encounter Functional Status Date [...] * Patient Instructions* Monik Sorto DO - 05/14/2019 10:00 AM HOSPITAL MEDICAL ASSISTANT -Continue with rituximab infusions and mycophenolate mofetil 500mg twice a day -You are being refered to nephrology (kidney doctors) -Please make a follow-up appointment with Dr. Hyatt, pulmonary (lung doctor) -Please have labs done every 3 months ITAL MEDICAL ASSISTANT documented in this encounter Progress Notes * Monik Sorto DO - 05/14/2019 10:00 AM HOSPITAL MEDICAL ASSISTANT ATTESTATION HPI: 63-year-old female with a history of myositis, ILD (PM SCL antibody positiv e)-currently being managed with rituximab for muscle disease and CellCept for IL D. Patient follows with Dr. Hyatt in pulmonology. Patient also has a persist ently positive p-ANCA and MPO without any evidence of small vessel vasculitis. She does have a history of CKD stage III. PHYSICAL EXAM: GEN: Pleasant SKIN: normal skin examination, no rashes, no edema CVS: S1S2 normal RS: AEBE no rales or rhonchi MUSCULOSKELETAL EXAM: Normal ROM in bilateral shoulders, elbows, wrists, knees, ankles. No synovitis appreciated in MC Ps, PIPs, DIPs ASSESSMENT/PLAN: 1. Myositis 2. Interstitial lung disease 3. High-risk medication use 4. Positive anti-antibody 5. CKD 6. Uncontrolled hypertension -Since patient's muscle disease and interstitial lung disease are stable we will continue with the same dose of medications. -DMARD monitoring labs every 3 months. -For uncontrolled hypertension-referral to nephrology placed. I pe rsonally performed the rios portions of the E/M visit, discussed case with r irmat/fellow and concur with the documentation of history, physical exam, asse ssment, and treatment plan unless otherwise noted. Radha Chase MD Rheumatology and Immunology 11:30 PM05/16/2019 Subjective: Carolann Angel is a 63 y.o. female, w/ PMH of polymyositis (weakly positive Anti-PM/Scl Ab, elevated aldolase, normal EMG [09/2015]) associated with ILD, +GEMA >=1280 nucleolar/speckled, persistently +MPO with negative p-ANCA (without evidence of vasculitis), CKD Stage 3, HTN, HLD, hypothyroidism, and anxiety. Previous History: Patient was first seen by the Rheumatology consult service during 06/2015 hosp italization for respiratory failure. In 04/2015 she developed dyspnea on exertio n. In 06/2015, during a hospitalization for respiratory failure, CT Chest showed slightly increased patchy peripheral small areas of consolidation in the lung ba ses with development of tiny pleural effusions, septal and peribronchaial vascul ar thickening. She was transferred to [facility] due to concern for possible EGPA with + p-ANCA/negative MPO. Repeat CT chest showed mild to moderate lower lung zon e predominant interstitial lung disease with predominantly reticular and linear interstitial opacities peripherally, mild traction bronchiectasis, bilateral renetta rly diffuse groundglass opacities in the lower lung zones and minimal groundglas s opacity in the left lung apex laterally. She was treated with IV pulse dose st eroids then discharged on 60mg prednisone qd. MPA and overlap connective tissue disease were both considered as possible etiologies. EMG in 09/2015 was essential ly unremarkable. Given +PM/Scl Ab, elevated aldolase, and pattern of lung diseas e she is felt to have myositis/ILD. She received her first RTX infusion in January 2016, which has been continued every 6 months. In 04/2016, MMF was added to her regimen and titrated up to 1000mg BID given decreased lung capacity on P FT's. At OV in 03/2017, prednisone was discontinued. Because of improvement in PFT's in 08/2017, MMF was decreased to 500mg BID. Interval history: Ms. Angel presents to the office for a scheduled follow-up. She is accompanied by her daughter. Last RTX infusions were on 03/28 and 04/11. Tolerating infusions without issue. Pt reports she feels like she has difficulty climbing stairs, po ssibly due to her balance. Also trouble getting out of chairs, but states it recinos s seem to be related to knee pain when standing. Denies difficulty swallowing, c ough, or SOB. Dr. Hyatt restarted her MMF 500mg BID when he saw her in September, she states she needs a refill. Pt also complains of dramatic hair loss that star rita at the end of February. Her PCP started her on iron pills and thyroid medic ation. Told her stress may also be playing a role since at the time the hair los s was starting, pt lost her house. No new rashes. Acid reflux controlled. Review of Systems HENT: Positive for sinus pressure and tinnitus. Gastrointestinal: Positive for diarrhea. Endocrine: Positive for cold intolerance and heat intolerance. Musculoskeletal: Weakness Joint Pain All other systems reviewed and are negative. Objective: atorvastatin (LIPITOR) 20 mg tablet Take 20 mg by mouth daily. cloNIDine (CATAPRESS) 0.1 mg tablet Take 0.1 mg by mouth twice daily. coenzyme Q10(+) 100 mg cap Take 100 mg by mouth once. gabapentin (NEURONTIN) 300 mg capsule TAKE ONE CAPSULE BY MOUTH EVERY NIGHT AT BEDTIME (Patient taking differently: Take 300 mg by mouth at bedtime daily.) levothyroxine (SYNTHROID) 25 mcg tablet Take 25 mcg by mouth daily 30 minute s before breakfast. losartan (COZAAR) 50 mg tablet Take 50 mg by mouth daily. metoprolol XL (TOPROL XL) 50 mg extended release tablet minoxidil (LONITEN) 2.5 mg tablet Take 2.5 mg by mouth twice daily. mycophenolate mofetil (CELLCEPT) 500 mg tablet Take one tablet by mouth twic e daily. Take on an empty stomach. OXYBUTYNIN CHLORIDE PO Take 5 mg by mouth. Take one-half tab PO daily potassium chloride (K-DUR) 10 mEq tablet Take 10 mEq by mouth daily. prednisone (DELTASONE) 10 mg tablet Take two tablets by mouth daily with alex jackson. venlafaxine XR (EFFEXOR XR) 150 mg capsule Take 150 mg by mouth daily. Discussed patient's BMI with her. The body mass index is 32.76 kg/m. and fall s within the category of Obesity 1 (30 to <35); specialist visit only, referred back to Primary Care Provider for follow up. Vitals: 05/14/19 1013 BP: 186/84 Pulse: 60 Resp: 17 Temp: 36.7 C (98 F) TempSrc: Oral SpO2: 97% Weight: 78.7 kg (173 lb 6.4 oz) Height: 154.9 cm (61") Physical Exam Constitutional: She is oriented to person, place, and time. She appears well-dev eloped and well-nourished. No distress. HENT: Head: Normocephalic and atraumatic. Mouth/Throat: Oropharynx is clear and moist. Eyes: Conjunctivae are normal. Right eye exhibits no discharge. Left eye exhibit s no discharge. No scleral icterus. Cardiovascular: Normal rate, regular rhythm and normal heart sounds. Pulmonary/Chest: Effort normal. No respiratory distress. She has no wheezes. She has rales. Musculoskeletal: 5/5 strentgh in all extremities No synovitis Neurological: She is alert and oriented to person, place, and time. Skin: Skin is warm and dry. No rash noted. No erythema. Psychiatric: She has a normal mood and affect. Her behavior is normal. Judgment and thought content normal. Vitals reviewed. Assessment: Alopecia Polymyositis (weakly +anti-PM/Scl Ab) ILD HTN, uncontrolled Raynaud's CKD Stage 3 Immunosuppression on rituximab DMARD monitoring on MMF Vitamin B12 deficiency Peripheral neuropathy Impression: Ms. Angel is being followed by rheumatology for polymyositis with ILD. Currently, her strength is normal and will check muscle enzymes today as we ll. Plan to continue with RTX infusion, and MMF, as desired by pulmonary. Of not e, pt's BP is high today. She denies CP, SOB, ANGEL, or blurry vision. She reports long standing uncontrolled BP so I will refer her to nephrology for further gabo homa. Plan: -Continue RTX 1 gram D1&15, every 6 months -Continue MMF 500mg BID -Continue DMARD lab monitoring q 3 months: CBC, CMP (to be in between RTX infusi ons, as monitoring labs will also be drawn at RTX infusions). Pt given lab order s with discount [facility] stamp. -Labs to be drawn at time of RTX infusion: CBC, CMP, CRP, aldolase, CK -Continue to follow-up with Dr. Hyatt as scheduled -Regarding uncontrolled HTN: pt asymptomatic. Referral placed to nephrology -Alopecia being managed by PCP -Pneumonia vaccine given in 06/2015 (suspect Pneumovax); Prevnar 03/2017. Flu vac cine today. -RTC in 3 months Patient seen and discussed with Dr. Chase. Monik Sorto DO Rheumatology Fellow, PGY-5 Pager: [phone] ITAL MEDICAL ASSISTANT documented in this encounter Plan of Treatment Order Schedule Name Type Priority Associated Diag noses ONE TIME for 15 Occurrences starting until 11/11/2020 CBC AND DIFF Lab Routine Polymyositis as sociated with autoimmune disease (HCC) Polymyositis with respiratory involvement (HCC) Long-term current use of rituximab Encounter for long-term (current) use of high-risk medication Myositis associated antibody positive Alopecia ONE TIME for 15 Occurrences starting until 11/11/2020 COMPREHENSIVE METABOLIC Lab Routine Polymy ositis associated PANEL with autoimmune disease (HCC) Polymyositis with respiratory involvement (HCC) Long-term current use of rituximab Encounter for long-term (current) use of high-risk medication Myositis associated antibody positive Alopecia Expected: 05/14/2019, Expires: 0 ALDOLASE Lab Routine Polymyositis as sociated with autoimmune disease (HCC) Polymyositis with respiratory involvement (HCC) Long-term current use of rituximab Encounter for long-term (current) use of high-risk medication Myositis associated antibody positive Alopecia Expected: 05/14/2019 (Approximate), Expi res: 05/14/2020 CREATINE KINASE-CPK Lab Routine Polymyosit is associated with autoimmune disease (HCC) Polymyositis with respiratory involvement (HCC) Long-term current use of rituximab Encounter for long-term (current) use of high-risk medication Myositis associated antibody positive Alopecia Expected: 05/14/2019 (Approximate), Expi res: 05/14/2020 URINALYSIS DIPSTICK Lab Routine Polymyosit is associated REFLEX TO CULTURE with autoimmune disease (HCC) Polymyositis with respiratory involvement (HCC) Long-term current use of rituximab Encounter for long-term (current) use of high-risk medication Myositis associated antibody positive Alopecia Expected: 05/14/2019 (Approximate), Expi res: 05/14/2020 URINALYSIS MICROSCOPIC Lab Routine Polymyo sitis associated REFLEX TO CULTURE with autoimmune disease (HCC) Polymyositis with respiratory involvement (HCC) Long-term current use of rituximab Encounter for long-term (current) use of high-risk medication Myositis associated antibody positive Alopecia Expected: 05/14/2019 (Approximate), Expi res: 05/14/2020 UA REFLEX CULTURE LABEL Lab Routine Polymy ositis associated with autoimmune disease (HCC) Polymyositis with respiratory involvement (HCC) Long-term current use of rituximab Encounter for long-term (current) use of high-risk medication Myositis associated antibody positive Alopecia Order Schedule Name Type Priority Associated Diag noses Ordered: 05/14/2019 AMB REFERRAL TO Outpatient Routine Polymyositis a ssociated NEPHROLOGY Referral with autoimmune dis ease (HCC) Polymyositis with respiratory involvement (HCC) Long-term current use of rituximab Encounter for long-term (current) use of high-risk medication Myositis associated antibody positive Alopecia documented as of this encounter Visit Diagnoses Diagnosis Polymyositis associated with autoimmune disease (HCC) - Primary Polymyositis Polymyositis with respiratory involveme nt (HCC) Polymyositis Long-term current use of rituximab Encounter for long-term (current) use o f high-risk medication Encounter for long-term (current) use o f other medications Myositis associated antibody positive Alopecia Alopecia, unspecified Uncontrolled hypertension Unspecified essential hypertension documented in this encounter
--- OUTSIDE RECORDS SUMMARY | 2019-08-14 06:04 | XMS REPORT | Encounter Summary ---
Author Author [facility] Organization [facility] Address Unknown Phone Unavailable Care Team Providers Care Chemist Internship Name Role Phone Damian Lamar MD Unavailable Meghana Maya MD PCP Brad Marr RN 2 Unavailable Buck Sol MD Unavailable Neo Burrell MD Unavailable Mychart, Generic Provider Unavailable Unavailable Fly Hyatt MD Unavailable Dione Vera MD Unavailable Madhav Morales MD Unavailable Brooke Lugo RN Unavailable Unavailable Reason for Visit * Treatment (Routine) Referred By Contact Referred To Contact Status Reason Specialty Diagnoses / Procedures Bird Castle MD Forwarding address unknown Left [facility]U 05/26/18 [facility]fusion Cl [address] [place] [id number] Closed Infusion Diagnoses Polymyositis with respiratory involvement (HCC) P rocedures RITUXIMAB (RITUXAN) Encounter Details Care Team Description Date Type Department Monik Sorto, DO [address] [place] [address] [place] [address] Overlap syndrome (HCC) (Primary Dx); Chronic respiratory failure with hypoxia (HCC); ILD (interstitial lung disease) (HCC); Positive GEMA (antinuclear antibody); P-ANCA and MPO antibodies positive; Weakness of right hip; Myositis associated antibody positive; Polymyositis with respiratory involvement (HCC) 04/11/2019 [facility] [address] [place] [id number] Social History Date Tobacco Use Types Packs/Day [...] Signs Reading Time Taken Comments Vital Sign 203/91 04/11/2019 2:54 PM CDT Blood Pressure 67 04/11/2019 2:54 PM CDT Pulse 36.7 C (98.1 F) 04/11/2019 10:36 AM CDT Temperature - - Respiratory Rate 98% 04/11/2019 2:54 PM CDT Oxygen Saturation - - Inhaled Oxygen Concentration 76.7 kg (169 lb 3.2 oz) 04/11/2019 10:36 AM CDT Weight 154.9 cm (5' 0.98") 04/11/2019 10:36 AM CDT Height 31.99 04/11/2019 10:36 AM CDT Body Mass Index documented in this encounter [...] this encounter Patient Instructions * Patient Instructions* Michelle Velasco RN - 04/11/2019 10:45 AM CDT Rituximab injection Brand Name: Rituxan What is this medicine? RITUXIMAB (ri TUX i mab) is a monoclonal antibody. It is used to treat certain t ypes of cancer like non-Hodgkin lymphoma and chronic lymphocytic leukemia. It is also used to treat rheumatoid arthritis, granulomatosis with polyangiitis (or W egener's granulomatosis), microscopic polyangiitis, and pemphigus vulgaris. How should I use this medicine? This medicine is for infusion into a vein. It is administered in a hospital or [facility] by a specially trained health health care technician. A special MedGuide will be given to you by the pharmacist with each prescription and refill. Be sure to read this information carefully each time. Talk to your chinese herbalist regarding the use of this medicine in children. This m edicine is not approved for use in children. What side effects may I notice from receiving this medicine? Side effects that you should report to your doctor or health health care technician a s soon as possible: allergic reactions like skin rash, itching or hives; swelling of the face, li ps, or tongue breathing problems chest pain changes in vision diarrhea headache with fever, neck stiffness, sensitivity to light, nausea, or confusi on fast, irregular heartbeat loss of memory low blood counts - this medicine may decrease the number of white blood cells , red blood cells and platelets. You may be at increased risk for infections and bleeding. mouth sores problems with balance, talking, or walking redness, blistering, peeling or loosening of the skin, including inside the m outh signs of infection - fever or chills, cough, sore throat, pain or difficulty passing urine signs and symptoms of kidney injury like trouble passing urine or change in t he amount of urine signs and symptoms of liver injury like dark yellow or brown urine; general i ll feeling or flu-like symptoms; light-colored stools; loss of appetite; nausea; right upper belly pain; unusually weak or tired; yellowing of the eyes or skin signs and symptoms of low blood pressure like dizziness; feeling faint or lig htheaded, falls; unusually weak or tired stomach pain swelling of the ankles, feet, hands unusual bleeding or bruising vomiting Side effects that usually do not require medical attention (report to your docto r or health health care technician if they continue or are bothersome): headache joint pain muscle cramps or muscle pain nausea tiredness What may interact with this medicine? cisplatin live virus vaccines What if I miss a dose? It is important not to miss a dose. Call your doctor or health health care technician if you are unable to keep an appointment. Where should I keep my medicine? This drug is given in a hospital or clinic and will not be stored at home. What should I tell my health care provider before I take this medicine? They need to know if you have any of these conditions: heart disease infection (especially a virus infection such as hepatitis B, chickenpox, cold sores, or herpes) immune system problems irregular heartbeat kidney disease low blood counts, like low white cell, platelet, or red cell counts lung or breathing disease, like asthma recently received or scheduled to receive a vaccine an unusual or allergic reaction to rituximab, other medicines, foods, dyes, o r preservatives or trying to get breast-feeding What should I watch for while using this medicine? Your condition will be monitored carefully while you are receiving this medicine . You may need blood work done while you are taking this medicine. This medicine can cause serious allergic reactions. To reduce your risk you may need to take medicine before treatment with this medicine. Take your medicine as directed. In some patients, this medicine may cause a serious brain infection that may cau se . If you have any problems seeing, thinking, speaking, walking, or stand ing, tell your healthcare professional right away. If you cannot reach your heal thcare professional, urgently seek other source of medical care. Call your doctor or health health care technician for advice if you get a fever, chil ls or sore throat, or other symptoms of a cold or flu. Do not treat yourself. Th is drug decreases your body's ability to fight infections. Try to avoid being ar ound people who are sick. Do not become while taking this medicine or for 12 months after stoppin g it. Women should inform their doctor if they wish to become or think they might be . There is a potential for serious side effects to an unbo title attorney. Talk to your health health care technician or pharmacist for more informati on. Do not breast-feed an while taking this medicine or for 6 months afte r stopping it. NOTE:This sheet is a summary. It may not cover all possible information. If you have questions about this medicine, talk to your doctor, pharmacist, or health c are provider. Copyright 2019 [employer] documented in this encounter Progress Notes * Michelle Velasco RN - 04/11/2019 10:45 AM CDT 1455: Patient tolerated infusion without difficulty. No signs of reaction note d. Discussed pt's hypertension with her. Several NIBP readings taken following infusion; all low 200s/90s. Pt stated she did not currently have any symptoms but occasionally has a headache at night. Pt also stated she has a new anti-hyp ertensive medication to black pickler from her pharmacy this evening. Declined celso castrejon to be seen by a rheum CRYSTAL LAPPER at this time. Encouraged pt to notify PCP of vane presley. documented in this encounter Plan of Treatment Not on filedocumented as of this encounter Visit Diagnoses Diagnosis Overlap syndrome (HCC) - Primary Other specified diffuse disease of conn ective tissue Chronic respiratory failure with hypoxi a (HCC) Chronic respiratory failure ILD (interstitial lung disease) (HCC) Postinflammatory pulmonary fibrosis Positive GEMA (antinuclear antibody) Other and unspecified nonspecific immun ological findings P-ANCA and MPO antibodies positive Other and unspecified nonspecific immun ological findings Weakness of right hip Myositis associated antibody positive Polymyositis with respiratory involveme nt (HCC) Polymyositis documented in this encounter Administered Medications Action Date Dose Rate Site Medication Order MAR Action 04/11/2019 11:09 AM CDT 500 mg acetaminophen (TYLENOL) tablet 500 mg Given 500 mg, Oral, ONCE, 1 dose, Tue 9 at 1045, Day 15 TOTAL ACETAMINOPHEN DOSE NOT TO EXCEED 4GM DAILY, 04/11/2019 11:09 AM CDT 25 mg diphenhydrAMINE (BENADRYL) capsule 25 mg Given 25 mg, Oral, ONCE, 1 dose, Tue04/11/19 at 1045, Day 15, 04/11/2019 11:09 AM CDT 125 mg methylPREDNISolone (SOLU-MEDROL PF) Given injection 125 mg 125 mg, Intravenous, 2 mL, ONCE, 1 dose , Tue04/11/19 at 1045, Day 15, 04/11/2019 12:47 PM CDT 100 mL/hr riTUXimab (RITUXAN) 1,000 mg in sodium Dose/Rate chloride 0.9% (NS) 250 mL IVPB Change 1,000 mg, 250 mL, Intravenous, ONCE, 1 dose, Tue04/11/19 at 1115, Day 15 Pharmacy may round to the nearest vial size. -Initiate infusion rate at 50 mg/hr; if there is no reaction, increas e the rate by 50 mg/hr increments every 3 0 minutes, to a maximum rate of 400 mg/hr . -If patient tolerated previous rituximab infusion, subsequent infusion s may be started at 100 mg/hr; if there i s no reaction, increase the rate by 100 mg/hr increments every 30 minutes, to a maximum rate of 400 mg/hr. -If hypersensitivity or infusion reaction develops during infusion, temporarily slow or stop infusion; if symptoms resolve, increase rate of infusion as tolerated, but If symptoms do not resolve, stop infusion and notify provider. NOTE: This is a HIGH ALERT Medication., 75 mL/hr Dose/Rate Change 04/11/2019 12:17 PM CDT 50 mL/hr Dose/Rate Change 04/11/2019 11:45 AM CDT documented in this encounter
--- OUTSIDE RECORDS SUMMARY | 2019-08-14 06:04 | XMS REPORT | Encounter Summary ---
Author Author [facility] Organization [facility] Address Unknown Phone Unavailable Care Team Providers Care Paper Feeder Name Role Phone Damian Lamar MD Unavailable Meghana Maya MD PCP Brad Marr RN 2 Unavailable Buck Sol MD Unavailable Neo Burrell MD Unavailable Mychart, Generic Provider Unavailable Unavailable Fly Hyatt MD Unavailable Dione Vera MD Unavailable Madhav Morales MD Unavailable Brooke Lugo RN Unavailable Unavailable Reason for Visit * Reason Comments Office Visit Follow Up Infusion Therapy Encounter Details Care Team Description Date Type Department Hortencia Urban, TONYA [address] [place], [place] [id number] Myalgia (Primary Dx); Polymyositis with respiratory involvement ([facility]); Weakness; ILD (interstitial lung disease) ([facility]); Raynaud's disease without gangrene; Long-term current use of rituximab; Positive GEMA (antinuclear antibody); Neuropathy; CKD (chronic kidney disease) stage 3, GFR 30-59 ml/min ([facility]); Thinning hair 03/28/2019 Office Visit [facility] [address] [place] [address] Social History Date Tobacco Use [...] as of this encounter Progress Notes * Hortencia Urban, [facility] - 03/28/2019 1:00 PM CDT Date of Service: 03/28/2019 Subjective: Carolann Angel is a 63 y.o. female. History of Present Illness Carolann Angel is a 63 y.o. female, w/ PMH of polymyositis (weakly positive Anti-PM/Scl Ab, elevated aldolase/CK, normal EMG [09/2015]) associated w ith ILD, +GEMA >=1280 nucleolar/speckled, persistently +MPO with negative p-ANCA (without evidence of vasculitis), CKD Stage 3, HTN, HLD, hypothyroidism, and anxiety. Previous History: Patient was first seen by the Rheumatology consult service during 06/2015 hosp italization for respiratory failure. Her symptoms date back to 08/2014. At that t ashlyn she started having fatigue. 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 Shewas treated with antibiotics and steroids. In 06/2015, durin g a hospitalization for respiratory failure, CT Chest showed slightly increased patchy peripheral small areas of consolidation in the lung bases with developmen t of tiny pleural effusions, septal and peribronchaial vascular thickening. She was transferred to [facility] due to concern for possible EGPA with + p-ANCA/negative MPO. Repeat CT chest showed mild to moderate lower lung zone predominant inter stitial lung disease with predominantly reticular and linear interstitial opacit ies peripherally, mild traction bronchiectasis, bilateral fairly diffuse groundg lass opacities in the lower lung zones and minimal groundglass opacity in the le ft lung apex laterally. She was treated with IV pulse dose steroids then dischar ged on 60mg prednisone qd. MPA and overlap connective tissue disease were both c onsidered as possible etiologies. EMG in 09/2015 was essentially unremarkable. Gi edi +PM/Scl Ab, elevated Aldolase and pattern of lung disease she is felt to hav e CTD with myositis/ILD. She follows with Dr. Hyatt in the ILD clinic. She r eceived her first RTX infusion in January 2016, which has been continued philly ry 6 months. At OV in 03/2017, prednisone was discontinued.In 04/2016, MMF w as added to her regimen and titrated up to 1000mg BID given decreased lung capac ity on PFT's. Because of improvement in PFT's in 08/2017, MMF was decreased to 500mg BID. Patient presents for her first office follow-up since 09/2017. Interval history: She presents to the infusion clinic today for Day 1 Rituxan infusion. She report s that she has been doing fairly well. She does report some intermittent muscle aching in her legs, particularly when she is on her feet more. She also reports some swelling in her ankles at the end of the day that resolves with elevating h er feet. She takes gabapentin for neuropathy in her feet which she says has impr linette. She reports occasional Raynaud's symptoms of her fingers turning purple wh en they get cold, but denies any ulcers. She reports an occasional cough but den ies dyspnea. She denies joint pain and rash. She reports that her hair has been thinning over the past two weeks. When she wa shes her hair or burrell it she has a lot of hair coming out. She does report bein g under some stress with a recent move. She said she went to her PCP and had her thyroid checked and was put on a small dose of medication. She last saw Dr. Hyatt in pulmonary in September 2018 and had last seen rheumatjonah whitley in August 2018. She reports she has missed or canceled some appointment becaus e of lapses in insurance and not being able to afford to come. She reports that she continues to take CellCept 500 mg twice daily and gabapenti n 300 mg at bedtime. She is off of prednisone. Review of Systems Musculoskeletal: Positive for myalgias. Skin: Hair thinning All other systems reviewed and are negative. Medical History: Diagnosis Date Anxiety HLD (hyperlipidemia) HTN (hypertension) Hypothyroidism ILD (interstitial lung disease) (HCC) Polymyositis associated with autoimmune disease (HCC) Surgical History: Procedure Laterality Date CHOLECYSTECTOMY Family History Problem Relation Age of Onset Cancer Mother Hypertension Mother None Reported Father None Reported Brother Arthritis-rheumatoid Brother Juvenile onset Hypertension Maternal Grandmother Social History Socioeconomic History Marital status: Single Spouse name: Not on file Number of children: Not on file Years of education: Not on file Highest education level: Not on file Occupational History 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 Has one daughter. 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 Objective: cloNIDine (CATAPRESS) 0.1 mg tablet coenzyme Q10(+) 100 mg cap Take 100 mg by mouth once. gabapentin (NEURONTIN) 300 mg capsule TAKE ONE CAPSULE BY MOUTH EVERY NIGHT AT BEDTIME metoprolol XL (TOPROL XL) 25 mg extended release tablet Take 75 mg by mouth daily. metoprolol XL (TOPROL XL) 50 mg extended release tablet mycophenolate mofetil (CELLCEPT) 500 mg tablet Take one tablet by mouth twic e daily. Take on an empty stomach. mycophenolate mofetil (CELLCEPT) 500 mg tablet TAKE TWO TABLETS BY MOUTH TWI CE A DAY. DUE FOR LABS potassium chloride (K-DUR) 10 mEq tablet prednisone (DELTASONE) 10 mg tablet Take two tablets by mouth daily with alex jackson. venlafaxine XR (EFFEXOR XR) 150 mg capsule Take 150 mg by mouth daily. Vital Signs: Pulse: 68 RR: 16 SpO2: 99% on RA Physical Exam Constitutional: She is oriented to person, place, and time. She appears well-dev eloped and well-nourished. HENT: Head: Normocephalic and atraumatic. Eyes: Conjunctivae are normal. Right eye exhibits no discharge. Left eye exhibit s no discharge. No scleral icterus. Cardiovascular: Normal rate, regular rhythm, normal heart sounds and intact dist al pulses. Exam reveals no gallop and no friction rub. No murmur heard. Pulmonary/Chest: Effort normal and breath sounds normal. She has no wheezes. She has no rales. Musculoskeletal: No synovitis of any joints of upper and lower extremities bilaterally. No dactyl itis. Range of motion of joints WFL. Neurological: She is alert and oriented to person, place, and time. Skin: Skin is warm and dry. No rash noted. No erythema. Hair thin on top of scalp. Psychiatric: She has a normal mood and affect. Her behavior is normal. Vitals reviewed. Assessment and Plan: 1. Myalgia 2. Polymyositis with respiratory involvement ([facility]) 3. Weakness 4. ILD (interstitial lung disease) ([facility]) 5. Raynaud's disease without gangrene 6. Long-term current use of rituximab 7. Positive GEMA (antinuclear antibody) 8. Neuropathy 9. CKD (chronic kidney disease) stage 3, GFR 30-59 ml/min ([facility]) 10. Thinning hair She is most concerned today about her thinning hair. On exam hair appears thin a nd scalp is visible on top of her head. She said she was recently put on thyroid medication, unsure of dose. Will recommend she continue to follow with PCP. She denies dyspnea. She reports occasional muscle aches in her legs, particularl y when she works and is on her feet for an extended period of time. She says joe ropathy is improved with gabapentin. She has tolerated Rituxan infusions well in the past. She denies any fevers, ill ness, or infection. Plan: 1. Proceed with Rituxan infusion today, and scheduled again in two weeks. 2. Continue to follow with Dr. Hyatt for ILD. 3. Continue to follow with PCP Dr. Maya in [place], [place]. Will request recor ds regarding recent labs and thyroid medication. 4. She does not currently have a rheumatology follow up. She needs follow up vis it with Dr. Sorto. She also needs to schedule follow up with Dr. Hyatt, as she recently missed a scheduled appointment with him. She will return in 2 weeks for Day 15 Rituxan. Will schedule follow up with Dr. oSrto. Hortencia Urban APRN documented in this encounter Plan of Treatment Not on filedocumented as of this encounter Visit Diagnoses Diagnosis Myalgia - Primary Mylagia and myositis, unspecified Polymyositis with respiratory involveme nt ([facility]) Polymyositis Weakness Other malaise and fatigue ILD (interstitial lung disease) ([facility]) Postinflammatory pulmonary fibrosis Raynaud's disease without gangrene Long-term current use of rituximab Positive GEMA (antinuclear antibody) Other and unspecified nonspecific immun ological findings Neuropathy Mononeuritis of unspecified site CKD (chronic kidney disease) stage 3, G FR 30-59 ml/min ([facility]) Chronic kidney disease, Stage III (mode rate) Thinning hair Alopecia, unspecified documented in this encounter
--- OUTSIDE RECORDS SUMMARY | 2019-08-14 06:05 | XMS REPORT | Encounter Summary ---
Author Author [facility] Organization [facility] Address Unknown Phone Unavailable Care Team Providers Care Station Supervisor Name Role Phone Damian Lamar MD Unavailable Meghana Maya MD PCP Brad Marr RN 2 Unavailable Buck Sol MD Unavailable Neo Burrell MD Unavailable Mychart, Generic Provider Unavailable Unavailable Fly Hyatt MD Unavailable Dione Vera MD Unavailable Madhav Morales MD Unavailable Brooke Lugo RN Unavailable Unavailable Encounter Details Care Team Description Date Type Department Michael Cleveland Antwon 03/22/2019 Orders Only The [address] [address] Social History Date Tobacco Use Types Packs/Day [...]
--- OUTSIDE RECORDS SUMMARY | 2019-08-14 06:05 | XMS REPORT | Encounter Summary ---
Author Author [facility] Organization [facility] Address Unknown Phone Unavailable Care Team Providers Care Glass Sander Belt Name Role Phone Damian Lamar MD Unavailable [...] MD Forwarding address unknown Left [facility] 05/26/18 [facility] Infusion Cl [address] [place] [id number] Closed Infusion Diagnoses Polymyositis with respiratory involvement (HCC) P rocedures RITUXIMAB (RITUXAN) Encounter Details Care Team Description Date Type Department Monik Sorto, DO [address] [place] [address] [phone] Overlap syndrome (HCC) (Primary Dx); Chronic respiratory failure with hypoxia (HCC); ILD (interstitial lung disease) (HCC); Positive GEMA (antinuclear antibody); P-ANCA and MPO antibodies positive; Weakness of right hip; Myositis associated antibody positive; Polymyositis with respiratory involvement (HCC) 03/28/[address] [facility] [address] [place] [id number] Social History Date Tobacco Use Types Packs/Day [...] Signs Reading Time Taken Comments Vital Sign 191/96 03/28/2019 1:37 PM CDT Blood Pressure 68 03/28/2019 1:37 PM CDT Pulse 36.8 C (98.2 F) 03/28/2019 9:45 AM CDT Temperature - - Respiratory Rate 99% 03/28/2019 1:37 PM CDT Oxygen Saturation - - Inhaled Oxygen Concentration 75.9 kg (167 lb 6.4 oz) 03/28/2019 9:45 AM CDT Weight 154.9 cm (5' 1") 03/28/2019 9:45 AM CDT Height 31.63 03/28/2019 9:45 AM CDT Body Mass Index documented in [...] this encounter Patient Instructions * Patient Instructions* Muna Oliver RN - 03/28/2019 10:45 AM CDT Rituximab injection Brand Name: [...] It is administered in a hospital or [facility] by a specially trained health child care specialist. A special MedGuide will be given to you by the pharmacist with each prescription and refill. Be sure to read this information carefully each time. Talk to your aeg[employer] console operator track regarding the use of this medicine in children. This m edicine is not approved for use in children. What side effects may I notice from receiving this medicine? Side effects that you should report to your doctor or health child care specialist a s soon as possible: allergic reactions [...] (report to your docto r or health child care specialist if they continue or are bothersome): headache joint pain muscle cramps or muscle pain nausea tiredness What may interact with this medicine? cisplatin live virus vaccines What if I miss a dose? It is important not to miss a dose. Call your doctor or health child care specialist if you are unable to keep an [...] right away. If you cannot [facility], urgently seek other source of medical care. Call your doctor or health child care specialist for advice if you get a fever, [...] for serious side effects to an unbo overnight cashier. Talk to your health child care specialist or pharmacist for more informati on. Do not breast-feed an while taking this medicine or for 6 months afte r stopping it. NOTE:This sheet is a summary. It may not cover all possible information. If you have questions about this medicine, talk to your doctor, pharmacist, or health c are provider. Copyright 2019 [employer] documented in this encounter Progress Notes * Muna Oliver RN - 03/28/2019 10:45 AM CDT Patient tolerated infusion, no reaction noted. documented in this encounter Plan of Treatment Not on filedocumented as of this encounter Procedures Comments Procedure Name Priority Date/Time Associated Diag nosis HC CBC W/ AUTOMATED DIFF Routine 03/28/2019 Overl ap syndrome (HCC) 9:56 AM CDT Chronic respiratory failure with hypoxia (HCC) ILD (interstitial lung disease) (HCC) Positive GEMA (antinuclear antibody) P-ANCA and MPO antibodies positive Weakness of right hip Myositis associated antibody positive Polymyositis with respiratory involvement (HCC) HC C-REACTIVE PROTEIN Routine 03/28/2019 Overlap syndrome (HCC) (CRP) 9:56 AM CDT Chronic respiratory failure with hypoxia (HCC) ILD (interstitial lung disease) (HCC) Positive GEMA (antinuclear antibody) P-ANCA and MPO antibodies positive Weakness of right hip Myositis associated antibody positive Polymyositis with respiratory involvement (HCC) HC IGG Routine 03/28/2019 Overlap syndrom e (HCC) 9:56 AM CDT Chronic respiratory failure with hypoxia (HCC) ILD (interstitial lung disease) (HCC) Positive GEMA (antinuclear antibody) P-ANCA and MPO antibodies positive Weakness of right hip Myositis associated antibody positive HC COMPREHENSIVE Routine 03/28/2019 Overlap syndr ome (HCC) METABOLIC PANEL 9:56 AM CDT Chronic respiratory failure with hypoxia (HCC) ILD (interstitial lung disease) (HCC) Positive GEMA (antinuclear antibody) P-ANCA and MPO antibodies positive Weakness of right hip Myositis associated antibody positive Polymyositis with respiratory involvement (HCC) documented in this encounter Results * IMMUNOGLOBULIN G (IGG) (03/28/2019 9:56 AM CDT) IgG 504 (L) 762 - 1,488 MG/DL [facility] Specimen Blood Performing Organization Address City[facility] Ph one Number [facility] [address] [place] [address] * C REACTIVE PROTEIN (CRP) (03/28/2019 9:56 AM CDT) C-Reactive 0.85 <1.0 MG/DL [facility] Protein Specimen Blood Performing Organization Address City/[facility]/Zipcode Ph one Number [facility] [address] [place] [address] * COMPREHENSIVE METABOLIC PANEL (03/28/2019 9:56 AM CDT) Sodium 142 137 - 147 MMOL/L [facility] Potassium 3.7 3.5 - 5.1 MMOL/L [facility] Chloride 110 98 - 110 MMOL/L [facility] Glucose 79 70 - 100 MG/DL [facility] Blood Urea 18 7 - 25 MG/DL [facility] Nitrogen Creatinine 1.56 (H) 0.4 - 1.00 MG/DL [facility] Calcium 9.3 8.5 - 10.6 MG/DL [facility] Total Protein 6.1 6.0 - 8.0 G/DL [facility] Total Bilirubin 0.4 0.3 - 1.2 MG/DL [facility] Albumin 3.9 3.5 - 5.0 G/DL [facility] Alk Phosphatase 77 25 - 110 U/L [facility] AST (SGOT) 19 7 - 40 U/L [facility] CO2 25 21 - 30 MMOL/L [facility] ALT (SGPT) 8 7 - 56 U/L [facility] Anion Gap 7 3 - 12 [facility] eGFR Non 34 (L) >60 mL/min [facility] Comment: Lebanese The eGFR is not validated f or use in drug dosing adjustments. Continue to use estimated creatinine clearance per dosing reference text. Please contact the Clinical Pharmacist for questions. eGFR 41 (L) >60 mL/min [facility] [place] Comment: The eGFR is not validated for use in drug dosing adjustments. Continue to use estimated creatinine clearance per dosing reference text. Please contact the Clinical Pharmacist for questions. Specimen Blood Performing Organization Address City/State/Zipcode Ph one Number [facility] [address] [place] [address] * CBC AND DIFF (03/28/2019 9:56 AM CDT) White Blood 6.5 4.5 - 11.0 K/UL [facility] Cells RBC 4.50 4.0 - 5.0 M/UL [facility] Hemoglobin 12.0 12.0 - 15.0 GM/DL [facility] Hematocrit 37.1 36 - 45 % [facility] MCV 82.3 80 - 100 FL [facility] MCH 26.7 26 - 34 PG [facility] MCHC 32.5 32.0 - 36.0 G/DL [facility] RDW 15.4 (H) 11 - 15 % [facility] Platelet Count 252 150 - 400 K/UL [facility] MPV 9.2 7 - 11 FL [facility] Neutrophils 62 41 - 77 % [facility] Lymphocytes 22 (L) 24 - 44 % [facility] Monocytes 15 (H) 4 - 12 % [facility] Eosinophils 1 0 - 5 % [facility] Basophils 0 0 - 2 % [facility] Absolute 4.00 1.8 - 7.0 K/UL [facility] Neutrophil Count Absolute Lymph 1.40 1.0 - 4.8 K/UL [facility] Count Absolute 1.00 (H) 0 - 0.80 K/UL [facility] Monocyte Count Absolute 0.00 0 - 0.45 K/UL [facility] Eosinophil Count Absolute 0.00 0 - 0.20 K/UL [facility] Basophil Count Specimen Blood Performing Organization Address City/State/Zipcode Ph one Number [facility] [address] [place] [address] documented in this encounter Visit Diagnoses Diagnosis [...] Dose Rate Site Medication Order MAR Action 03/28/2019 10:00 AM CDT 500 mg acetaminophen (TYLENOL) tablet 500 mg Given 500 mg, Oral, ONCE, 1 dose, Tue03/28/19 at 1000, Day 1: TOTAL ACETAMINOPHEN DOSE NOT TO EXCEED 4GM DAILY, 03/28/2019 10:00 AM CDT 25 mg diphenhydrAMINE (BENADRYL) capsule 25 mg Given 25 mg, Oral, ONCE, 1 dose, Tue03/28/19 at 1000, Day 1, 03/28/2019 10:00 AM CDT 125 mg methylPREDNISolone (SOLU-MEDROL PF) Given injection 125 mg 125 mg, Intravenous, 2 mL, ONCE, 1 dose , Tue03/28/19 at 1000, Day 1, 03/28/2019 11:46 AM CDT 100 mL/hr riTUXimab (RITUXAN) 1,000 mg in sodium Dose/Rate chloride 0.9% (NS) 250 mL IVPB Change 1,000 mg, 250 mL, Intravenous, ONCE, 1 dose, Tue03/28/19 at 1030, Day 1 Pharmacy may round [...] HIGH ALERT Medication., 75 mL/hr Dose/Rate Change 03/28/2019 11:16 AM CDT 50 mL/hr Dose/Rate Change 03/28/2019 10:46 AM CDT documented in this encounter
--- OUTSIDE RECORDS SUMMARY | 2019-08-14 06:06 | XMS REPORT | CCD ---
Author Author Carolann Shoemaker Organization Meghana Maya MD, [facility] Address [facility] [address] [place] [address] Phone Care Team Providers Care Watch Repairer Apprentice Name Role Phone PP Unavailable CCM Unavailable Summary Purpose Interface Exchange Family history Mother Diagnosis Age At Onset Hypertension Unknown Breast cancer Unknown Osteoporosis Unknown Father Diagnosis Age At Onset kidney disease Unknown Cancer Unknown Hyperlipidemia Unknown Social History Social History Element Codes Description Effective Dates Marital status Unknown D ivorced 04/21/2015 Number of children Unknown 1 04/21/2015 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/21/[address]: 424007927 Never smoker 04/21/2015 Alcohol history Unknown occasionally drinks alcohol 04/21/2015 Allergies, Adverse Reactions, Alerts Substance Reaction Codes Entered Date Inactivated Date Status [id number] REDU CTASE INHIBITORS myalgias Unknown 016 No Inactive Date Active Past Medical History Illness Codes Condition Status Onset Date Resolved Date Essential (primary) hypertension ICD-9: 401.1 ICD-10: I10 Active 08/30/2016 Unknown Hypothyroidism, unsp ecified ICD-9: 244.9 ICD-10: E03.9 Active 04/05/2016 Unknown Other specified hypo thyroidism ICD-9: 244.8 ICD-10: E03.8 Active 06/23/2016 Unknown Chronic kidney disea se, stage 3 (moderate) ICD-9: 585.3 ICD-10: N18.3 Active 10/12/2018 Unknown Encounter for follow -up examination after completed treatment for conditions other than malignant neoplasm ICD-9: V67.9 ICD-10: Z09 Active 10/12/2018 Unknown Hypokalemia ICD-9: 276.8 ICD-10: E87.6 Active 09/13/2018 Unknown Interstitial pulmona ry disease, unspecified ICD-9: 515 ICD-10: J84.9 Active 01/24/2017 Unknown Mixed hyperlipidemia ICD-9: 272.2 ICD-10: E78.2 Active 04/20/2015 Unknown 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 ICD-10: G62.0 Active 08/30/2016 Unknown Impaired fasting glu cose ICD-9: 790.21 ICD-10: R73.01 Active 04/20/2015 Unknown Other fatigue ICD-9: 780.79 ICD-10: R53.83 Active 01/24/2017 Unknown Other malaise ICD-9: 780.79 ICD-10: R53.81 Active 06/22/2017 Unknown Acute laryngopharyng itis ICD-9: 465.0 ICD-10: J06.0 Active 10/13/2016 Unknown Other acute sinusitis ICD-9: 461.8 ICD-10: J01.80 Active 10/13/2016 Unknown Other allergic rhinitis ICD-9: 477.8 ICD-10: J30.89 Active 03/02/2017 Unknown Generalized hyperhid rosis ICD-9: 780.8 ICD-10: R61 Active 01/24/2017 Unknown Pain in left shoulder ICD-9: 719.41 ICD-10: M25.512 Active 07/01/2016 Unknown Pain in thoracic spine ICD-9: 724.1 ICD-10: M54.6 Active 07/01/2016 Unknown Zoster without compl ications ICD-9: 053.9 ICD-10: B02.9 Active 07/01/2016 Unknown Essential (primary) hypertension ICD-9: 401.9 ICD-10: I10 Active 06/23/2016 Unknown Menopausal and femal e climacteric states ICD-9: 627.2 ICD-10: N95.1 Active 06/23/2016 Unknown Encounter for screen ing mammogram for malignant neoplasm of breast ICD-9: V76.12 ICD-10: Z12.31 Active 05/13/2016 Unknown Atrophy of thyroid ( acquired) ICD-9: 244.8 ICD-10: E03.4 Active 05/03/2016 Unknown Pain in left foot ICD-9: 729.5 ICD-10: M79.672 Active 05/03/2016 Unknown Pain in left leg ICD-9: 729.5 ICD-10: M79.605 Active 04/05/2016 Unknown Localized edema ICD-9: 782.3 ICD-10: R60.0 Active 03/17/2016 Unknown Diarrhea, unspecified ICD-9: 787.91 ICD-10: R19.7 Active 09/22/2015 Unknown Acute maxillary sinu sitis, unspecified ICD-9: 461.0 ICD-10: J01.00 Active 08/11/2015 Unknown Myositis, unspecified ICD-9: 729.1 ICD-10: M60.9 Active 08/11/2015 Unknown Other myositis, mult iple sites ICD-9: 729.1 ICD-10: M60.89 Active 08/03/2015 Unknown Churg Parrish Unknown Active 06/30/2015 Unknow n Dyspnea, unspecified ICD-9: 786.09 ICD-10: R06.00 Active 05/15/2015 Unknown Hypertension Unknown Active 04/21/2015 Unknow n Hypothryroidism Unknown Active 04/21/2015 Unknow n Encounter for screen ing mammogram for malignant neoplasm of breast ICD-9: V76.11 ICD-10: Z12.31 Active 04/20/2015 Unknown Problems Condition Codes Effectiv e Dates Condition Status Essential (primary) hypertension ICD-9: 401.1 ICD-10: I10 08/30/2016 Active Hypothyroidism, unsp ecified ICD-9: 244.9 ICD-10: E03.9 04/05/2016 Active Other specified hypo thyroidism ICD-9: 244.8 ICD-10: E03.8 06/23/2016 Active Chronic kidney disea se, stage 3 (moderate) ICD-9: 585.3 ICD-10: N18.3 10/12/2018 Active Encounter for follow -up examination after completed treatment for conditions other than malignant neoplasm ICD-9: V67.9 ICD-10: Z09 10/12/2018 Active Hypokalemia ICD-9: 276.8 ICD-10: E87.6 09/13/2018 Active Interstitial pulmona ry disease, unspecified ICD-9: 515 ICD-10: J84.9 01/24/2017 Active Mixed hyperlipidemia ICD-9: 272.2 ICD-10: E78.2 04/20/2015 Active 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 ICD-10: G62.0 08/30/2016 Active Impaired fasting glu cose ICD-9: 790.21 ICD-10: R73.01 04/20/2015 Active Other fatigue ICD-9: 780.79 ICD-10: R53.83 01/24/2017 Active Other malaise ICD-9: 780.79 ICD-10: R53.81 06/22/2017 Active Acute laryngopharyng itis ICD-9: 465.0 ICD-10: J06.0 10/13/2016 Active Other acute sinusitis ICD-9: 461.8 ICD-10: J01.80 10/13/2016 Active Other allergic rhinitis ICD-9: 477.8 ICD-10: J30.89 03/02/2017 Active Generalized hyperhid rosis ICD-9: 780.8 ICD-10: R61 01/24/2017 Active Pain in left shoulder ICD-9: 719.41 ICD-10: M25.512 07/01/2016 Active Pain in thoracic spine ICD-9: 724.1 ICD-10: M54.6 07/01/2016 Active Zoster without compl ications ICD-9: 053.9 ICD-10: B02.9 07/01/2016 Active Essential (primary) hypertension ICD-9: 401.9 ICD-10: I10 06/23/2016 Active Menopausal and femal e climacteric states ICD-9: 627.2 ICD-10: N95.1 06/23/2016 Active Encounter for screen ing mammogram for malignant neoplasm of breast ICD-9: V76.12 ICD-10: Z12.31 05/13/2016 Active Atrophy of thyroid ( acquired) ICD-9: 244.8 ICD-10: E03.4 05/03/2016 Active Pain in left foot ICD-9: 729.5 ICD-10: M79.672 05/03/2016 Active Pain in left leg ICD-9: 729.5 ICD-10: M79.605 04/05/2016 Active Localized edema ICD-9: 782.3 ICD-10: R60.0 03/17/2016 Active Diarrhea, unspecified ICD-9: 787.91 ICD-10: R19.7 09/22/2015 Active Acute maxillary sinu sitis, unspecified ICD-9: 461.0 ICD-10: J01.00 08/11/2015 Active Myositis, unspecified ICD-9: 729.1 ICD-10: M60.9 08/11/2015 Active Other myositis, mult iple sites ICD-9: 729.1 ICD-10: M60.89 08/03/2015 Active Churg Parrish Unknown 06/30/2015 Active Dyspnea, unspecified ICD-9: 786.09 ICD-10: R06.00 05/15/2015 Active Hypertension Unknown 04/21/2015 Active Hypothryroidism Unknown 04/21/2015 Active Encounter for screen ing mammogram for malignant neoplasm of breast ICD-9: V76.11 ICD-10: Z12.31 04/20/2015 Active Medications Medication Codes Instruc tions Start Date Stop Date Sta tus Fill Instructions levothyroxine 25 mcg tablet RxNorm: 828083 1 Tablet(s) PO QAM 03/13/2019 07/10/2019 Active levothyroxine 25 mcg tablet RxNorm: 139678 1 Tablet(s) PO QAM 03/13/2019 03/12/2019 Inactive losartan 50 mg tablet RxNorm: 954639 1 Tablet(s) PO daily 02/06/2019 06/05/2019 Active oxybutynin chloride 5 mg tablet RxNorm: 993621 Tablet(s) TAKE ONE-ANGEL LF TABLET BY MOUTH DAILY 02/06/2019 06/05/2019 Active metoprolol succinate ER 50 mg tablet,extended release 24 hr RxNorm: 509846 1 Tablet(s) PO BID 02/06/2019 06/05/2019 Active oxybutynin chloride 5 mg tablet RxNorm: 470910 TAKE ONE-HALF TABLET BY MOUTH DAILY 01/30/2019 02/05/2019 In active metoprolol succinate ER 100 mg tablet,extended release 24 hr RxNorm: 933375 1 Tablet(s) PO daily 01/22/2019 01/21/2019 Inactive metoprolol succinate ER 50 mg tablet,extended release 24 hr RxNorm: 988141 1 Tablet(s) PO daily 01/22/2019 02/05/2019 Inactive metoprolol succinate ER 100 mg tablet,extended release 24 hr RxNorm: 889360 1 Tablet(s) PO daily 01/22/2019 01/22/2019 Inactive oxybutynin chloride 5 mg tablet RxNorm: 124915 1/2 Tablet(s) PO hari y 01/04/2019 01/29/2019 In active oxybutynin chloride 5 mg tablet RxNorm: 251734 1/2 Tablet(s) PO hari y 01/04/2019 01/03/2019 In active Lipitor 20 mg tablet RxNorm: 988560 TAKE ONE TABLET BY MOUTH DAILY 12/04/2018 06/01/2019 Ac tive venlafaxine ER 150 m g capsule,extended release 24 hr RxNorm: 386418 TAKE ONE CAPSULE BY MOUTH DAILY 12/04/2018 06/01/2019 Active losartan 25 mg tablet RxNorm: 497666 TAKE ONE TABLET BY MOUTH DAILY 12/04/2018 01/24/2019 In active nystatin 100,000 uni t/mL oral suspension RxNorm: 968343 4 Unit(s) PO QID 10/17/2018 10/23/2018 In active nystatin 100,000 uni t/mL oral suspension RxNorm: 263309 4 Unit(s) PO QID 10/17/2018 10/16/2018 In active metoprolol succinate ER 50 mg tablet,extended release 24 hr RxNorm: 499706 1 Tablet(s) PO daily 10/17/2018 01/19/2019 Inactive potassium chloride E R 10 mEq tablet,extended release RxNorm: 982318 Tablet(s) TAKE ONE TABLET BY MOUTH DAILY 09/15/2018 03/13/2019 Inactive candesartan 4 mg tablet RxNorm: 319238 1 Tablet(s) PO daily 09/15/2018 10/14/2018 Inactive clonidine HCl 0.1 mg tablet RxNorm: 679869 TAKE ONE TABLET BY [facility] TWICE A DAY 09/14/2018 02/10/2019 In active losartan 25 mg tablet RxNorm: 980055 TAKE ONE TABLET BY MOUTH DAILY 09/14/2018 11/12/2018 In active clonidine HCl 0.1 mg tablet RxNorm: 405869 Tablet(s) TAKE ONE TA BLET BY MOUTH AT BEDTIME 09/13/2018 No Stop Date Active venlafaxine ER 150 m g capsule,extended release 24 hr RxNorm: 591588 TAKE ONE CAPSULE BY MOUTH DAILY 05/15/2018 11/10/2018 Inactive Lipitor 20 mg tablet RxNorm: 900509 TAKE ONE TABLET BY MOUTH DAILY 05/15/2018 11/10/2018 In active losartan 25 mg tablet RxNorm: 956383 TAKE ONE TABLET BY MOUTH DAILY 04/17/2018 07/14/2018 In active losartan 25 mg tablet RxNorm: 147566 TAKE ONE TABLET BY MOUTH DAILY 04/17/2018 04/16/2018 In active Lipitor 20 mg tablet RxNorm: 633330 1 Tablet(s) PO daily 01/12/2018 01/11/2018 Inactive Lipitor 20 mg tablet RxNorm: 345108 1 Tablet(s) PO daily 01/12/2018 05/11/2018 Inactive clonidine HCl 0.1 mg tablet RxNorm: 112464 TAKE ONE TABLET BY [facility] TWICE A DAY 01/04/2018 07/02/2018 In active potassium chloride E R 10 mEq tablet,extended release RxNorm: 657005 TAKE ONE TABLET BY MOUTH DAILY 01/04/2018 09/12/2018 Inactive losartan 25 mg tablet RxNorm: 163979 TAKE ONE TABLET BY MOUTH DAILY 01/03/2018 04/02/2018 In active levothyroxine 50 mcg tablet RxNorm: 755330 1 Tablet(s) PO daily 12/08/2017 09/12/2018 Inactive losartan 25 mg tablet RxNorm: 089635 1 Tablet(s) PO daily 12/06/2017 01/02/2018 Inactive venlafaxine ER 150 m g capsule,extended release 24 hr RxNorm: 600888 TAKE ONE CAPSULE BY MOUTH DAILY 12/06/2017 05/04/2018 Inactive metoprolol succinate ER 50 mg tablet,extended release 24 hr RxNorm: 985268 TAKE ONE TABLET BY MOUTH DAILY 08/29/2017 01/25/2018 Inactive metoprolol succinate ER 50 mg tablet,extended release 24 hr RxNorm: 582340 TAKE ONE TABLET BY MOUTH DAILY 08/29/2017 08/28/2017 Inactive metoprolol succinate ER 50 mg tablet,extended release 24 hr RxNorm: 018171 TAKE ONE TABLET BY MOUTH DAILY 08/29/2017 08/28/2017 Inactive Tamiflu 75 mg capsule RxNorm: 512436 1 Capsule(s) PO BID 06/22/2017 06/26/2017 Inactive Kenalog 40 mg/mL jenna pension for injection RxNorm: 2628820 1.5 Milliliter(s) In j 06/22/2017 06/22/2017 In active clonidine HCl 0.1 mg tablet RxNorm: 564966 TAKE ONE TABLET BY [facility] TWICE A DAY 06/06/2017 12/02/2017 In active potassium chloride E R 10 mEq tablet,extended release RxNorm: 343845 TAKE ONE TABLET BY MOUTH DAILY 06/06/2017 12/02/2017 Inactive venlafaxine ER 150 m g capsule,extended release 24 hr RxNorm: 275944 TAKE ONE CAPSULE BY MOUTH DAILY 05/23/2017 11/18/2017 Inactive Zithromax 500 mg tablet RxNorm: 303274 1 Tablet(s) PO daily 05/18/2017 05/22/2017 Inactive potassium chloride E R 10 mEq tablet,extended release RxNorm: 442105 TAKE ONE TABLET BY MOUTH DAILY 04/21/2017 05/20/2017 Inactive potassium chloride E R 10 mEq tablet,extended release RxNorm: 739522 TAKE ONE TABLET BY MOUTH DAILY 03/16/2017 04/14/2017 Inactive Zithromax Z-Jacek 250 mg tablet RxNorm: 594109 1 Tablet(s) PO UD 03/02/2017 06/21/2017 Inactive venlafaxine ER 150 m g capsule,extended release 24 hr RxNorm: 220138 Capsule(s) TAKE ONE CAPSULE BY MOUTH DAILY 02/17/2017 02/16/2017 Inactive venlafaxine ER 150 m g capsule,extended release 24 hr RxNorm: 343716 TAKE ONE CAPSULE BY MOUTH DAILY 02/17/2017 05/14/2018 Inactive clonidine HCl 0.1 mg tablet RxNorm: 423814 TAKE ONE TABLET BY [facility] EVERY NIGHT AT BEDTIME 02/14/2017 01/03/2018 Inactive metoprolol succinate ER 50 mg tablet,extended release 24 hr RxNorm: 398033 TAKE ONE TABLET BY MOUTH DAILY 02/14/2017 08/12/2017 Inactive Protonix 40 mg table t,delayed release RxNorm: 957979 TAKE ONE TABLET BY [facility] DAILY WHILE ON PREDNISONE 01/25/2017 09/12/2018 Inactive Zithromax Z-Jacek 250 mg tablet RxNorm: 205828 1 Tablet(s) PO UD 01/24/2017 01/03/2018 Inactive potassium chloride E R 10 mEq tablet,extended release RxNorm: 080363 TAKE ONE TABLET BY MOUTH DAILY 01/17/2017 03/15/2017 Inactive clonidine HCl 0.1 mg tablet RxNorm: 218483 TAKE ONE TABLET BY [facility] EVERY NIGHT AT BEDTIME 01/17/2017 02/13/2017 Inactive potassium chloride E R 10 mEq tablet,extended release RxNorm: 360310 TAKE ONE TABLET BY MOUTH DAILY 12/16/2016 01/14/2017 Inactive venlafaxine ER 150 m g capsule,extended release 24 hr RxNorm: 641871 TAKE ONE CAPSULE BY MOUTH DAILY 11/18/2016 02/15/2017 Inactive clonidine HCl 0.1 mg tablet RxNorm: 735218 TAKE ONE TABLET BY DE [facility] EVERY NIGHT AT BEDTIME 11/08/2016 01/06/2017 Inactive clonidine HCl 0.1 mg tablet RxNorm: 048859 1 Tablet(s) BID 10/19/2016 01/16/2017 Inactive potassium chloride E R 10 mEq tablet,extended release RxNorm: 440695 TAKE ONE TABLET BY MOUTH DAILY 10/15/2016 11/13/2016 Inactive Zithromax Z-Jacek 250 mg tablet RxNorm: 262821 1 Tablet(s) PO UD 10/13/2016 01/03/2018 Inactive potassium chloride E R 10 mEq tablet,extended release RxNorm: 422618 TAKE ONE TABLET BY MOUTH DAILY 10/12/2016 10/14/2016 Inactive potassium chloride E R 10 mEq tablet,extended release RxNorm: 119949 Tablet(s) BID TAKE ONE TABLET BY MOUTH TWICE DAILY 09/17/2016 10/11/2016 Inactive potassium chloride E R 10 mEq tablet,extended release RxNorm: 880050 TAKE ONE TABLET BY MOUTH DAILY 09/13/2016 09/16/2016 Inactive clonidine HCl 0.1 mg tablet RxNorm: 466219 Tablet(s) TAKE ONE TA BLET BY MOUTH EVERY NIGHT AT BEDTIME 08/12/2016 10/18/2016 Inactive gabapentin 300 mg ca psule RxNorm: 627054 1 Capsule(s) PO Q 08/10/2016 No Stop Date Active venlafaxine ER 150 m g capsule,extended release 24 hr RxNorm: 484318 TAKE ONE CAPSULE BY MOUTH DAILY 08/09/2016 11/06/2016 Inactive metoprolol succinate ER 50 mg tablet,extended release 24 hr RxNorm: 011841 TAKE ONE TABLET BY MOUTH DAILY 07/29/2016 01/24/2017 Inactive clonidine HCl 0.1 mg tablet RxNorm: 267847 TAKE ONE TABLET BY MO [facility] EVERY NIGHT AT BEDTIME 07/21/2016 08/11/2016 Inactive potassium chloride E R 10 mEq tablet,extended release RxNorm: 396713 TAKE ONE TABLET BY MOUTH DAILY 07/14/2016 09/11/2016 Inactive Prescriber not associated w ith this practice or location acyclovir 400 mg tablet RxNorm: 355237 2 Tablet(s) PO QID 07/02/2016 07/11/2016 Inactive cyclobenzaprine 5 mg tablet RxNorm: 821827 1-2 Tablet(s) PO TID as needed 07/02/2016 07/06/2016 In active capsaicin 0.1 % topi reagan cream RxNorm: 808841 1 Application TOP TID as needed 07/02/2016 09/12/2018 In active Protonix 40 mg table t,delayed release RxNorm: 700507 TAKE ONE TABLET BY [facility] DAILY WHILE ON PREDNISONE 06/29/2016 12/25/2016 Inactive clonidine HCl 0.1 mg tablet RxNorm: 790616 1 Tablet(s) PO QHS 06/25/2016 07/20/2016 Inactive calcium carbonate 50 0 mg calcium (1,250 mg) tablet RxNorm: 581278 TAKE ONE TABLET BY MOUTH DAILY WHILE ON PREDNISONE. MAY STOP TAKING WHEN PREDNISONE IS COMPLETE 06/01/2016 09/12/2018 In active Vitamin D3 1,000 uni t tablet RxNorm: 735896 1 Tablet(s) PO daily . May stop taking once prednisone is complete. 04/26/2016 09/12/2018 Inactive metoprolol succinate ER 50 mg tablet,extended release 24 hr RxNorm: 191085 1.5 Tablet(s) PO daily 04/06/2016 06/23/2016 Inactive prednisone 10 mg tablet RxNorm: 135590 1 Tablet(s) PO daily 04/02/2016 06/21/2017 Inactive metoprolol succinate ER 50 mg tablet,extended release 24 hr RxNorm: 651667 1 Tablet(s) PO daily 03/18/2016 04/05/2016 Inactive amlodipine 10 mg tablet RxNorm: 725027 1/2 Tablet(s) PO daily 02/24/2016 06/21/2016 Inactive metoprolol succinate ER 25 mg tablet,extended release 24 hr RxNorm: 549022 1 Tablet(s) PO daily 02/24/2016 03/16/2016 Inactive calcium carbonate 50 0 mg calcium (1,250 mg) tablet RxNorm: 377092 TAKE ONE TABLET BY MOUTH DAILY WHILE ON PREDNISONE. MAY STOP TAKING WHEN PREDNISONE IS COMPLETE 02/16/2016 05/15/2016 In active Protonix 40 mg table t,delayed release RxNorm: 804476 TAKE ONE TABLET BY [facility] DAILY WHILE ON PREDNISONE 02/10/2016 05/09/2016 Inactive venlafaxine ER 150 m g capsule,extended release 24 hr RxNorm: 750151 Capsule(s) TAKE ONE CAPSULE BY MOUTH DAILY 12/10/2015 04/07/2016 Inactive calcium carbonate 50 0 mg calcium (1,250 mg) tablet RxNorm: 506836 1 Tablet(s) PO daily 12/01/2015 01/29/2016 Inactive Vitamin D3 1,000 uni t tablet RxNorm: 388318 1 Tablet(s) PO daily 12/01/2015 03/29/2016 Inactive levothyroxine 50 mcg tablet RxNorm: 806562 1 Tablet(s) PO daily 12/01/2015 11/24/2016 Inactive amlodipine 10 mg tablet RxNorm: 480607 1 Tablet(s) PO daily 11/19/2015 11/18/2015 Inactive amlodipine 10 mg tablet RxNorm: 536559 1 Tablet(s) PO daily 11/19/2015 02/23/2016 Inactive amlodipine 5 mg tablet RxNorm: 101178 1 Tablet(s) PO daily 11/17/2015 11/18/2015 Inactive venlafaxine ER 150 m g capsule,extended release 24 hr RxNorm: 801100 TAKE ONE CAPSULE BY MOUTH DAILY 11/13/2015 12/09/2015 Inactive Protonix 40 mg table t,delayed release RxNorm: 583043 1 Tablet(s) PO daily while on prednisone 2015 02/09/2016 Inactive prednisone 10 mg tablet RxNorm: 627596 2 Tablet(s) PO UD 10/30/2015 04/01/2016 Inactive 60mg for 2 days, then 50mg for 2 days, then 40mg for 2 days, then 30mg for 2 days, then 20mg for 2 days, then 10mg for 2 days, then 5mg for 2 days potassium chloride E R 10 mEq tablet,extended release RxNorm: 860124 TAKE ONE TABLET BY MOUTH DAILY 09/22/2015 12/19/2015 Inactive venlafaxine ER 150 m g capsule,extended release 24 hr RxNorm: 916278 TAKE ONE CAPSULE BY MOUTH DAILY 09/08/2015 11/06/2015 Inactive cefdinir 300 mg capsule RxNorm: 133700 1 Capsule(s) PO BID 08/20/2015 08/22/2015 Inactive cefdinir 300 mg capsule RxNorm: 697075 1 Capsule(s) PO BID 08/12/2015 08/18/2015 Inactive Kenalog 40 mg/mL jenna pension for injection RxNorm: 9890862 1 Milliliter(s) Inj 08/04/2015 08/04/2015 In active triamterene 37.5 mg- hydrochlorothiazide 25 mg tablet RxNorm: 544266 1 Tablet(s) PO BID 06/17/2015 08/03/2015 Inactive potassium chloride E R 10 mEq tablet,extended release RxNorm: 716063 1 Tablet(s) PO daily 05/30/2015 08/03/2015 Inactive Levaquin 250 mg tablet RxNorm: 817259 Tablet(s) PO UD 500 mg day one, then 250 mg day 2-7 05/27/2015 08/03/2015 Inactive prednisone 10 mg tablet RxNorm: 752604 Tablet(s) PO UD 05/27/2015 10/29/2015 Inactive 60mg for 2 days, then 50mg for 2 days, then 40mg for 2 days, then 30mg for 2 days, then 20mg for 2 days, then 10mg for 2 days, then 5mg for 2 days albuterol sulfate 1. 25 mg/3 mL solution for nebulization RxNorm: 062999 3 Milliliter(s) INH Q4-6H as needed dyspnea 05/23/2015 09/12/2018 Inactive Zithromax 500 mg tablet RxNorm: 468832 1 Tablet(s) PO daily 05/16/2015 05/15/2015 Inactive Zithromax 500 mg tablet RxNorm: 826218 1 Tablet(s) PO daily 05/16/2015 05/20/2015 Inactive prednisone 20 mg tablet RxNorm: 233696 3 Tablet(s) PO daily 05/12/2015 05/16/2015 Inactive venlafaxine ER 150 m g capsule,extended release 24 hr RxNorm: 056384 TAKE ONE CAPSULE BY MOUTH DAILY 05/12/2015 08/09/2015 Inactive Keflex 500 mg capsule RxNorm: 732220 1 Capsule(s) PO TID 05/12/2015 05/18/2015 Inactive simvastatin 20 mg ta blet RxNorm: 915972 1 Tablet(s) PO daily 04/10/2015 04/09/2015 Inactive simvastatin 20 mg ta blet RxNorm: 615300 1 Tablet(s) PO daily 04/10/2015 08/11/2015 Inactive venlafaxine ER 150 m g capsule,extended release 24 hr RxNorm: 919649 TAKE ONE CAPSULE BY MOUTH DAILY 04/08/2015 05/07/2015 Inactive amlodipine 5 mg tablet RxNorm: 319169 1 Tablet(s) PO daily 03/07/2015 03/06/2015 Inactive amlodipine 5 mg tablet RxNorm: 171660 1 Tablet(s) PO daily 03/07/2015 07/04/2015 Inactive venlafaxine ER 150 m g capsule,extended release 24 hr RxNorm: 194733 1 Capsule(s) PO daily 01/29/2015 03/29/2015 Inactive Co Q-10 oral RxNorm: 45548 oral No Start Date Active gabapentin 100 mg ca psule RxNorm: 579121 1 Capsule(s) PO QAM No Start Date Active albuterol sulfate 1. 25 mg/3 mL solution for nebulization RxNorm: 931533 3 Milliliter(s) INH Q4-6H as needed dyspnea No Start Date 05/22/2015 Inactive levothyroxine 50 mcg tablet RxNorm: 067565 1 Tablet(s) PO daily No Start Date 11/30/2015 Inactive metoprolol succinate ER 50 mg tablet,extended release 24 hr RxNorm: 016163 1 Tablet(s) PO daily No Start Date 09/12/2018 Inactive gabapentin 300 mg ca psule RxNorm: 479323 1 Capsule(s) PO QHS No Start Date 08/09/2016 Inactive vitamin B complex oral RxNorm: 15787 oral No Start Date 09/12/2018 Inactive Vitamin D3 1,000 uni t tablet RxNorm: 848697 1 Tablet(s) PO daily No Start Date 11/30/2015 Inactive Protonix 40 mg table t,delayed release RxNorm: 828163 1 Tablet(s) PO daily while on prednisone No Start Date 10/30/2015 Inactive calcium carbonate oral RxNorm: oral No Start Date 11/30/2015 Inactive potassium chloride E R 10 mEq tablet,extended release RxNorm: 474134 1 Tablet(s) PO daily No Start Date 05/29/2015 Inactive Levaquin 250 mg tablet RxNorm: 296171 Tablet(s) PO UD 500 mg day one, then 250 mg day 2-7 No Start Date 05/26/2015 Inactive triamterene 37.5 mg- hydrochlorothiazide 25 mg tablet RxNorm: 726963 1 Tablet(s) PO BID No Start Date 06/16/2015 Inactive prednisone 10 mg tablet RxNorm: 783331 Tablet(s) PO UD No Start Date 05/26/2015 Inactive 60mg for 2 days, then 50mg for 2 days, then 40mg for 2 days, then 30mg for 2 days, then 20mg for 2 days, then 10mg for 2 days, then 5mg for 2 days venlafaxine ER 150 m g capsule,extended release 24 hr RxNorm: 226488 1 Capsule(s) PO daily No Start Date 01/28/2015 Inactive Medication Administered Medication Codes Instruc tions Start Date Status Kenalog 40 mg/mL suspension for injection RxNorm: 6765433 1.5Milliliter 06/22/2017 No longer Active Kenalog 40 mg/mL suspension for injection RxNorm: 7691455 1Milliliter 08/04/2015 N o longer Active Immunizations No Immunization data Assessments Condition Codes Effectiv e Dates Essential (primary) hypertension ICD -10: I10 ICD-9: 401.1 03/12/2019 Other specified hypothyroidism ICD-1 0: E03.8 ICD-9: 244.8 03/12/2019 Encounter for follow-up examination afte r completed treatment for conditions other than malignant neoplasm ICD-10: Z09 ICD-9: V67.9 10/12/2018 Chronic kidney disease, stage 3 (moderate) ICD-10: N18.3 ICD-9: 585.3 10/12/2018 Interstitial pulmonary disease, unspecified ICD-10: J84.9 ICD-9: 515 09/13/2018 Hypokalemia ICD-10: E87.6 ICD-9: 276.8 09/13/2018 Mixed hyperlipidemia ICD-10: E78.2 ICD-9: 272.2 05/04/2018 Other fatigue ICD-10: R53.83 ICD-9: 780.79 06/22/2017 Other malaise ICD-10: R53.81 ICD-9: 780.79 06/22/2017 Other allergic rhinitis ICD-10: J30. 89 ICD-9: 477.8 03/02/2017 Acute laryngopharyngitis ICD-10: J06 .0 ICD-9: 465.0 03/02/2017 Other acute sinusitis ICD-10: J01.80 ICD-9: 461.8 03/02/2017 Generalized hyperhidrosis ICD-10: R6 1 ICD-9: 780.8 01/24/2017 Impaired fasting glucose ICD-10: R73 .01 ICD-9: 790.21 08/30/2016 Drug-induced polyneuropathy ICD-10: G62.0 ICD-9: 357.7 08/30/2016 Zoster without complications ICD-10: B02.9 ICD-9: 053.9 07/02/2016 Pain in thoracic spine ICD-10: M54.6 ICD-9: 724.1 07/02/2016 Pain in left shoulder ICD-10: M25.51 2 ICD-9: 719.41 07/02/2016 Essential (primary) hypertension ICD -10: I10 ICD-9: 401.9 06/24/2016 Menopausal and female climacteric states ICD-10: N95.1 ICD-9: 627.2 06/24/2016 Encounter for screening mammogram for ma lignant neoplasm of breast ICD-10: Z12.31 ICD-9: V76.12 05/14/2016 Pain in left foot ICD-10: M79.672 ICD-9: 729.5 05/04/2016 Atrophy of thyroid (acquired) ICD-10 : E03.4 ICD-9: 244.8 05/04/2016 Pain in left leg ICD-10: M79.605 ICD-9: 729.5 04/06/2016 Localized edema ICD-10: R60.0 ICD-9: 782.3 03/18/2016 Hypothyroidism, unspecified ICD-10: E03.9 ICD-9: 244.9 12/16/2015 Diarrhea, unspecified ICD-10: R19.7 ICD-9: 787.91 09/23/2015 Acute maxillary sinusitis, unspecified ICD-10: J01.00 ICD-9: 461.0 08/12/2015 Myositis, unspecified ICD-10: M60.9 ICD-9: 729.1 08/12/2015 Other myositis, multiple sites ICD-1 0: M60.89 ICD-9: 729.1 08/04/2015 Dyspnea, unspecified ICD-10: R06.00 ICD-9: 786.09 05/16/2015 Encounter for screening mammogram for ma lignant neoplasm of breast ICD-10: Z12.31 ICD-9: V76.11 04/21/2015 Reason For Visit Reason For Visit Effective Dates Notes hair loss 03/12/2019 hypertension 01/22/2019 Hospital Follow Up 10/12/2018 abnormal test results 09/13/2018 hypertension 05/04/2018 hypertension [...] Observation Code Item Item Code Result Date Tsh Ord6 TSH (3rd IS) 4.82 uIU/mL 03/12/2019 Free T4 Azx725 FREE T4 0.55 ng/dL 03/12/2019 Comp Metabolic Ohv340 NA 142 mEq/L 10/12/2018 Comp Metabolic Nzi926 K 4.0 mEq/L 10/12/2018 Comp Metabolic Mea223 CL 105 mEq/L 10/12/2018 Comp Metabolic Bcb346 CO2 21.0 mEq/L 10/12/2018 Comp Metabolic Pmw807 AN ION GAP 20 10/12/2018 Comp Metabolic Qwm776 GL UCOSE 105 mg/dL 10/12/2018 Comp Metabolic Yhz270 Cr eat 1.8 mg/dL 10/12/2018 Comp Metabolic Fig616 eG FR 30 ml/min/1.73m2 10/12 Comp Metabolic Riu764 BUN 19 mg/dL 10/12/2018 Comp Metabolic Bct344 B/ C Ratio 10.5 Ratio 10/12/2018 Comp Metabolic Hac257 CA LCIUM 9.0 mg/dL 10/12/2018 Comp Metabolic Vph836 AL K PHOS 74 U/L 10/12/2018 Comp Metabolic Qvg766 T(SGOT) 21 U/L 10/12/2018 Comp Metabolic Zgv865 AL T(SGPT) 22 U/L 10/12/2018 Comp Metabolic Arz332 BI LI T 0.4 mg/dL 10/12/2018 Comp Metabolic Zro455 AL BUMIN 3.9 g/dL 10/12/2018 Comp Metabolic Mzy737 TP RO 6.1 g/dL 10/12/2018 Comp Metabolic Eyt292 GL OB 2.2 g/dL 10/12/2018 Comp Metabolic Wke007 A/ G Ratio 1.7 Ratio 10/12/2018 Comp Metabolic Hus994 Os mo 286 mOsmo 10/12/2018 Cbc With Differential Ord2 WBC 14.12 K/ul 10/12/2018 Cbc With Differential Ord2 RBC 5.00 M/ul 10/12/2018 Cbc With Differential Ord2 HGB 14.0 g/dl 10/12/2018 Cbc With Differential Ord2 HCT 44.9 % 10/12/2018 Cbc With Differential Ord2 Neut% 70.5 % 10/12/2018 Cbc With Differential Ord2 MCV 89.8 fl 10/12/2018 Cbc With Differential Ord2 Lymph% 12.5 % 10/12/2018 Cbc With Differential Ord2 MCH 28.0 pg 10/12/2018 Cbc With Differential Ord2 [place]% 16.6 % 10/12/2018 Cbc With Differential Ord2 MCHC 31.2 pg 10/12/2018 Cbc With Differential Ord2 Eos% 0.2 % 10/12/2018 Cbc With Differential Ord2 Baso% 0.2 % 10/12/2018 Cbc With Differential Ord2 PLT 304 K/ul 10/12/2018 Cbc With Differential Ord2 Neut ABS# 9.94 K/ul 10/12/2018 Cbc With Differential Ord2 RDW 16.3 % 10/12/2018 Cbc With Differential Ord2 Lymph ABS# 1.77 K/ul 10/12/2018 Cbc With Differential Ord2 [place] ABS# 2.4 K/ul 10/12/2018 Cbc With Differential Ord2 Eos ABS# 0.0 K/ul 10/12/2018 Cbc With Differential Ord2 Baso ABS# 0.0 K/ul 10/12/2018 Electrolytes Ord62 NA 140 mEq/L 09/15/2018 Electrolytes Ord62 K 4.2 mEq/L 09/15/2018 Electrolytes Ord62 CL 111 mEq/L 09/15/2018 Electrolytes Ord62 CO2 20.0 mEq/L 09/15/2018 Electrolytes Ord62 ANION GAP 13 09/15/2018 Comp Metabolic Nac360 NA 140 mEq/L 01/10/2018 Comp Metabolic Gra141 K 3.8 mEq/L 01/10/2018 Comp Metabolic Bdd256 CL 106 mEq/L 01/10/2018 Comp Metabolic Cpk757 CO2 25.0 mEq/L 01/10/2018 Comp Metabolic Wvn611 AN ION GAP 13 01/10/2018 Comp Metabolic Cak748 GL UCOSE 110 mg/dL 01/10/2018 Comp Metabolic Khe485 Cr eat 1.5 mg/dL 01/10/2018 Comp Metabolic Ejb159 eG FR 37 ml/min/1.73m2 01/10 Comp Metabolic Wrf603 BUN 23 mg/dL 01/10/2018 Comp Metabolic Lmc738 B/ C Ratio 15.3 Ratio 01/10/2018 Comp Metabolic Ujc049 CA LCIUM 9.2 mg/dL 01/10/2018 Comp Metabolic Cqt092 AL K PHOS 87 U/L 01/10/2018 Comp Metabolic Vwy630 T(SGOT) 15 U/L 01/10/2018 Comp Metabolic Yzf681 AL T(SGPT) 9 U/L 01/10/2018 Comp Metabolic Fix842 BI LI T 0.4 mg/dL 01/10/2018 Comp Metabolic Hio003 AL BUMIN 3.8 g/dL 01/10/2018 Comp Metabolic Gjf504 TP RO 6.2 g/dL 01/10/2018 Comp Metabolic Ykj122 GL OB 2.4 g/dL 01/10/2018 Comp Metabolic Hyg361 A/ G Ratio 1.6 Ratio 01/10/2018 Comp Metabolic Woo673 Os mo 284 mOsmo 01/10/2018 C-Reactive Protein Qnt Crqnt CRP 0.5 mg/dl 01/10/2018 Lipid Ord30 CHOL 233 mg/dL 01/10/2018 Lipid Ord30 HDL 33.0 mg/dl 01/10/2018 Lipid Ord30 TRIG 319 mg/dL 01/10/2018 Lipid Ord30 LDL Unable to calculate Due to elevated trig lycerides mg/dL 01/10/2018 Lipid Ord30 C/HDL 7.1 Ratio [...] 27.6 pg 01/10/2018 Cbc With Differential Ord2 [place]% 15.2 % 01/10/2018 Cbc With Differential Ord2 [...] 1.47 K/ul 01/10/2018 Cbc With Differential Ord2 [place] ABS# 1.0 K/ul 01/10/2018 Cbc With Differential Ord2 Eos ABS# 0.1 K/ul 01/10/2018 Cbc With Differential Ord2 Baso ABS# 0.0 K/ul 01/10/2018 Sed Rate Ord21 ESR 12 mm/hr 01/10/2018 Free T4 Kek140 FREE T4 0.57 ng/dL 12/06/2017 Tsh Ord6 TSH (3rd IS) 7.40 uIU/mL 12/06/2017 C A/B FLU [id number] Influe nza A Scr Negative 06/22/2017 C A/B FLU [id number] Influe nza B Scr Negative 06/22/2017 C A/B FLU [id number] Influe nza Intrp B AG:PRID:PT:NOSE:NOM:IF See Footnote 06/22/2017 Comp Metabolic Zvn003 NA 140 mEq/L 08/30/2016 Comp Metabolic Fau421 K 3.3 mEq/L 08/30/2016 Comp Metabolic Rvd816 CL 104 mEq/L 08/30/2016 Comp Metabolic Iea780 CO2 26.0 mEq/L 08/30/2016 Comp Metabolic Vvs068 AN ION GAP 13 08/30/2016 Comp Metabolic Jqm820 GL UCOSE 143 mg/dL 08/30/2016 Comp Metabolic Hff079 Cr eat 1.3 mg/dL 08/30/2016 Comp Metabolic Fmq509 eG FR 43 ml/min/1.73m2 08/30 Comp Metabolic Tmw066 BUN 19 mg/dL 08/30/2016 Comp Metabolic Ubt077 B/ C Ratio 14.3 Ratio 08/30/2016 Comp Metabolic Udj517 CA LCIUM 10.0 mg/dL 08/30/2016 Comp Metabolic Cxm745 AL K PHOS 67 U/L 08/30/2016 Comp Metabolic Bed081 T(SGOT) 28 U/L 08/30/2016 Comp Metabolic Fiy757 AL T(SGPT) 43 U/L 08/30/2016 Comp Metabolic Cuh416 BI LI T 0.4 mg/dL 08/30/2016 Comp Metabolic Clh565 AL BUMIN 4.0 g/dL 08/30/2016 Comp Metabolic Lon553 TP RO 6.2 g/dL 08/30/2016 Comp Metabolic Kiv612 GL OB 2.2 g/dL 08/30/2016 Comp Metabolic Dgc490 A/ G Ratio 1.8 Ratio 08/30/2016 Comp Metabolic Xfn024 Os mo 284 mOsmo 08/30/2016 %Hba1C Npt248 % HbA1c 58973-1 6.1 % 08/30/2016 %Hba1C Dep416 Gluc Ave 128 mg/dL 08/30/2016 Free T4 Eal303 FREE T4 0.75 ng/dL 06/25/2016 Tsh Ord6 [...] Ord90 Mag 2.1 mg/dL 12/16/2015 Free T4 Euh728 FREE T4 0.92 ng/dL 12/16/2015 Tsh Ord6 [...] 28.5 pg 08/04/2015 Cbc With Differential Ord2 [place]% 6.1 % 08/04/2015 Cbc With Differential Ord2 [...] 0.73 K/ul 08/04/2015 Cbc With Differential Ord2 [place] ABS# 0.5 K/ul 08/04/2015 Cbc With Differential Ord2 Eos ABS# 0.1 K/ul 08/04/2015 Cbc With Differential Ord2 Baso ABS# 0.0 K/ul 08/04/2015 Cbc With Differential Ord2 New Analyzer Notice Please note new ref ranges s tarting 07-09-2015 due to implemntation of new five part differential hematolgy analyzer. 08/04/2015 C-Reactive Protein Qnt Crqnt CRP 0.8 mg/dl 08/04/2015 Comp Metabolic Juk271 NA 139 mEq/L 08/04/2015 Comp Metabolic Rax656 K 3.4 mEq/L 08/04/2015 Comp Metabolic Bmz308 CL 109 mEq/L 08/04/2015 Comp Metabolic Hvr032 CO2 22.0 mEq/L 08/04/2015 Comp Metabolic Zoc766 AN ION GAP 11 08/04/2015 Comp Metabolic Mlz915 GL UCOSE 177 mg/dL 08/04/2015 Comp Metabolic Gjy364 Cr eat 1.0 mg/dL 08/04/2015 Comp Metabolic Inl535 eG FR 64 ml/min/1.73m2 08/04 Comp Metabolic Byu438 BUN 35 mg/dL 08/04/2015 Comp Metabolic Iga112 B/ C Ratio 36.8 Ratio 08/04/2015 Comp Metabolic Jir309 CA LCIUM 8.5 mg/dL 08/04/2015 Comp Metabolic Xwc664 AL K PHOS 57 U/L 08/04/2015 Comp Metabolic Vbf091 T(SGOT) 21 U/L 08/04/2015 Comp Metabolic Psi257 AL T(SGPT) 63 U/L 08/04/2015 Comp Metabolic Nhu210 BI LI T 0.3 mg/dL 08/04/2015 Comp Metabolic Oql282 AL BUMIN 3.1 g/dL 08/04/2015 Comp Metabolic Hbv427 TP RO 5.1 g/dL 08/04/2015 Comp Metabolic Vdf194 GL OB 2.0 g/dL 08/04/2015 Comp Metabolic Jjv161 A/ G Ratio 1.6 Ratio 08/04/2015 Comp Metabolic Exk393 Os mo 290 mOsmo 08/04/2015 Cpk Ord61 CPK 52 U/L 08/04/2015 Random Urine Protein/Creatinine Ratio Hmi5530 U Prot 8.5 mg/dl 05/27/2015 Random Urine Protein/Creatinine Ratio Fbv6665 U CREAT 201.0 mg/dL 05/27/2015 Random Urine Protein/Creatinine Ratio Ned0232 R MTP/Creat Ratio 0.04 05/27/2015 Urinalysis Ord28 U-Color Yellow 05/27/2015 Urinalysis Ord28 U-[place] ty Clear 05/27/2015 Urinalysis Ord28 U-Gluc Negative 05/27/2015 Urinalysis Ord28 U-Bili Negative 05/27/2015 Urinalysis Ord28 U-Ketone Negative 05/27/2015 Urinalysis Ord28 U-SG 1.015 05/27/2015 Urinalysis Ord28 U-Blood Negative 05/27/2015 Urinalysis Ord28 U-pH 6.0 05/27/2015 Urinalysis Ord28 U-Prote in Negative 05/27/2015 Urinalysis Ord28 U-Urobi elmer 0.2 E.U./dL E.U./dL Urinalysis Ord28 U-Nitri david Negative 05/27/2015 Urinalysis Ord28 U-Leuk Negative 05/27/2015 Urinalysis Ord28 U-Bact None 05/27/2015 Urinalysis Ord28 U-Squam ous Epi None per/HPF 5 Urinalysis Ord28 U-Cryst al None per/HPF 5 Urinalysis Ord28 U-Mucus 4+ 05/27/2015 Urinalysis Ord28 U-Renal tubular epi None 05/27/2015 Urinalysis Ord28 U-RBC None per/HPF 05/27/2015 Urinalysis Ord28 U-Trans itional epi None per/HPF 5 Urinalysis Ord28 U-WBC RARE per/HPF 05/27/2015 Urinalysis Ord28 U-Cast HYALINE CAST per/HPF 05/27/2015 Urinalysis Ord28 U-VOL VOLUME SUFFICIENT (10mL) 05/27/2015 Urinalysis Ord28 U-Yeast NEGATIVE 05/27/2015 Urinalysis Ord28 U-Com Urine saved if culture needed (specimen acceptable for 48 hours from collection if refrigerated) 05/27/2015 Renal Oxf341 NA 136 mEq/L 05/26/2015 Renal Gyr117 K 3.3 mEq/L 05/26/2015 Renal Nls670 CL 99 mEq/L 05/26/2015 Renal Hin196 CO2 25.0 mEq/L 05/26/2015 Renal Aip855 ANION GAP 15 05/26/2015 Renal Fue645 Osmo 274 mOsmo 05/26/2015 Renal Ebv378 GLUCOSE 106 mg/dL 05/26/2015 Renal Mir724 BUN 17 mg/dL 05/26/2015 Renal Ezf273 Creat 1.4 mg/dL 05/26/2015 Renal Zlb415 eGFR 40 ml/min/1.73m2 05/26/2015 Renal Wsm982 B/C Ratio 12.0 Ratio 05/26/2015 Renal Gqk740 CALCIUM 9.3 mg/dL 05/26/2015 Renal Ssw987 PHOS 3.4 mg/dL 05/26/2015 Renal Bsj839 ALBUMIN 3.4 g/dL 05/26/2015 Cbc With Differential [...] Ord2 RDW 14.3 % 04/21/2015 Free T4 Zra688 FREE T4 0.91 ng/dL 04/21/2015 %Hba1C Aps722 % HbA1c 17462-7 5.8 % 04/21/2015 %Hba1C Exv009 Gluc Ave 120 mg/dL 04/21/2015 Comp Metabolic Zrt875 NA 137 mEq/L 04/21/2015 Comp Metabolic Tqn526 K 3.6 mEq/L 04/21/2015 Comp Metabolic Emx942 CL 98 mEq/L 04/21/2015 Comp Metabolic Sku659 CO2 25.0 mEq/L 04/21/2015 Comp Metabolic Vit667 AN ION GAP 18 04/21/2015 Comp Metabolic Wgj445 GL UCOSE 83 mg/dL 04/21/2015 Comp Metabolic Qlb074 Cr eat 1.6 mg/dL 04/21/2015 Comp Metabolic Ekd525 eG FR 36 ml/min/1.73m2 04/21 Comp Metabolic Buf369 BUN 28 mg/dL 04/21/2015 Comp Metabolic Tha725 B/ C Ratio 17.9 Ratio 04/21/2015 Comp Metabolic Yzs607 CA LCIUM 9.5 mg/dL 04/21/2015 Comp Metabolic Ubu987 AL K PHOS 60 U/L 04/21/2015 Comp Metabolic Ygt008 T(SGOT) 22 U/L 04/21/2015 Comp Metabolic Jqs125 AL T(SGPT) 10 U/L 04/21/2015 Comp Metabolic Sza961 BI LI T 0.4 mg/dL 04/21/2015 Comp Metabolic Hyg404 AL BUMIN 4.0 g/dL 04/21/2015 Comp Metabolic Mns349 TP RO 6.8 g/dL 04/21/2015 Comp Metabolic Stu974 GL OB 2.8 g/dL 04/21/2015 Comp Metabolic Bqq237 A/ G Ratio 1.4 Ratio 04/21/2015 Comp Metabolic Gho215 Os mo 278 mOsmo 04/21/2015 Tsh Ord6 hTSH II 2.58 uIU/mL 04/21/2015 Review of Systems System Result Effective Dates Constitutional No recent illness 03/12/2019 Constitutional No chills 03/12/2019 Constitutional No diaphoresis 03/12/2019 Constitutional No fever 03/12/2019 Eyes No eye erythema Ears/Nose/Throat/Neck No nasal discharge 03/12/2019 Cardiovascular No chest pain/pressure 03/12/2019 Cardiovascular No dyspnea 03/12/2019 Respiratory No chest congestion 03/12/2019 Respiratory No cough Gastrointestinal No abdominal pain 03/12/2019 Neurologic No alteration of consciousness 03/12/2019 Neurologic No mental status change 03/12/2019 Constitutional fatigue 0 03/12/2019 Endocrine hair loss 02/25 Constitutional recent illness 10/12/2018 Constitutional No chills 10/12/2018 Constitutional No diaphoresis 10/12/2018 Constitutional No fever 10/12/2018 Eyes No eye erythema Ears/Nose/Throat/Neck No nasal discharge 10/12/2018 Cardiovascular No chest pain/pressure 10/12/2018 Respiratory No cough Respiratory No chest congestion 10/12/2018 Respiratory dyspnea on exertion 10/12/2018 Respiratory No dyspnea 0 10/12/2018 Neurologic No alteration of consciousness 10/12/2018 Neurologic No mental status change 10/12/2018 Constitutional No recent illness 09/13/2018 Constitutional No chills 09/13/2018 Constitutional No diaphoresis 09/13/2018 Constitutional No fever 09/13/2018 Eyes No eye erythema Ears/Nose/Throat/Neck No nasal discharge 09/13/2018 Ears/Nose/Throat/Neck nasal allergies 09/13/2018 Cardiovascular No chest pain/pressure 09/13/2018 Respiratory No cough Respiratory dyspnea on exertion 09/13/2018 Respiratory No dyspnea 0 09/13/2018 Respiratory No chest congestion 09/13/2018 Gastrointestinal No abdominal pain 09/13/2018 Neurologic No alteration of consciousness 09/13/2018 Neurologic No mental status change 09/13/2018 Constitutional No recent illness 05/04/2018 Constitutional No chills 05/04/2018 Constitutional fatigue 1 07/04/2017 Constitutional No fever 05/04/2018 Constitutional No malaise 05/04/2018 Eyes No eye pain 018 Eyes No vision change Ears/Nose/Throat/Neck No dizziness 05/04/2018 Ears/Nose/Throat/Neck No nasal allergies 05/04/2018 Ears/Nose/Throat/Neck No nasal discharge 05/04/2018 Cardiovascular No chest pain/pressure 05/04/2018 Respiratory No chest congestion 05/04/2018 Respiratory No cough 01/2018 Respiratory dyspnea on exertion 05/04/2018 Respiratory No dyspnea 1 07/04/2017 Gastrointestinal No abdominal pain 05/04/2018 Gastrointestinal No constipation 05/04/2018 Gastrointestinal No diarrhea 05/04/2018 Gastrointestinal No nausea 05/04/2018 Gastrointestinal No vomiting 05/04/2018 Dermatologic No rash 01/2018 Neurologic No alteration of consciousness 05/04/2018 Neurologic No mental status change 05/04/2018 Eyes No eye erythema 01/2018 Musculoskeletal arthralgia(s) 05/04/2018 Constitutional No recent illness 01/10/2018 Constitutional No chills 01/10/2018 Constitutional fatigue 0 01/10/2018 Constitutional No fever 01/10/2018 Constitutional No malaise 01/10/2018 Eyes No eye pain 018 Eyes No vision change Ears/Nose/Throat/Neck No dizziness 01/10/2018 Ears/Nose/Throat/Neck No nasal allergies 01/10/2018 Ears/Nose/Throat/Neck No nasal discharge 01/10/2018 Cardiovascular No chest pain/pressure 01/10/2018 Cardiovascular fatigue 0 01/10/2018 Respiratory No chest congestion 01/10/2018 Respiratory No cough Respiratory dyspnea on exertion 01/10/2018 Respiratory No dyspnea 0 01/10/2018 Gastrointestinal No abdominal pain 01/10/2018 Gastrointestinal No constipation 01/10/2018 Gastrointestinal No diarrhea 01/10/2018 Gastrointestinal No nausea 01/10/2018 Gastrointestinal No vomiting 01/10/2018 Musculoskeletal arthralgia(s) 01/10/2018 Dermatologic No rash Neurologic No alteration of consciousness 01/10/2018 Neurologic No mental status change 01/10/2018 Constitutional diaphoresis 01/10/2018 Eyes No eye pain 018 Eyes No vision change Ears/Nose/Throat/Neck No dizziness 12/06/2017 Cardiovascular No chest pain/pressure 12/06/2017 Gastrointestinal No abdominal pain 12/06/2017 Gastrointestinal No constipation 12/06/2017 Gastrointestinal No diarrhea 12/06/2017 Gastrointestinal No nausea 12/06/2017 Gastrointestinal No vomiting 12/06/2017 Musculoskeletal arthralgia(s) 12/06/2017 Dermatologic No rash 05/2018 Neurologic No alteration of consciousness 12/06/2017 Constitutional No recent illness 12/06/2017 Constitutional No chills 12/06/2017 Constitutional diaphoresis 12/06/2017 Constitutional fatigue 0 12/06/2017 Constitutional No fever 12/06/2017 Constitutional No malaise 12/06/2017 Ears/Nose/Throat/Neck No nasal discharge 12/06/2017 Ears/Nose/Throat/Neck No nasal allergies 12/06/2017 Cardiovascular dyspnea 0 12/06/2017 Cardiovascular fatigue 0 12/06/2017 Respiratory dyspnea on exertion 12/06/2017 Respiratory No dyspnea 0 12/06/2017 Respiratory No cough 05/2018 Respiratory No chest congestion 12/06/2017 Neurologic No mental status change 12/06/2017 Constitutional recent illness 06/22/2017 Constitutional chills Constitutional fever Eyes No eye erythema Ears/Nose/Throat/Neck nasal allergies 06/22/2017 Ears/Nose/Throat/Neck nasal discharge 06/22/2017 Ears/Nose/Throat/Neck postnasal drip 06/22/2017 Ears/Nose/Throat/Neck sinus congestion 06/22/2017 Ears/Nose/Throat/Neck No sore throat 06/22/2017 Cardiovascular No chest pain/pressure 06/22/2017 Respiratory chest congestion 06/22/2017 Respiratory cough 2016 Gastrointestinal No abdominal pain 06/22/2017 Dermatologic No rash Neurologic No alteration of consciousness 06/22/2017 Neurologic No mental status change 06/22/2017 Constitutional diaphoresis 06/22/2017 Constitutional malaise 1 08/23/2016 Constitutional No recent illness 03/02/2017 Constitutional No chills 03/02/2017 Constitutional No fever 03/02/2017 Eyes No eye erythema 11/2016 Ears/Nose/Throat/Neck nasal allergies 03/02/2017 Ears/Nose/Throat/Neck nasal discharge 03/02/2017 Ears/Nose/Throat/Neck postnasal drip 03/02/2017 Ears/Nose/Throat/Neck sinus congestion 03/02/2017 Cardiovascular No chest pain/pressure 03/02/2017 Cardiovascular No dyspnea 03/02/2017 Respiratory cough 2016 Respiratory No dyspnea 0 03/02/2017 Gastrointestinal No abdominal pain 03/02/2017 Dermatologic No rash 11/2016 Neurologic No alteration of consciousness 03/02/2017 Neurologic No mental status change 03/02/2017 Ears/Nose/Throat/Neck sore throat 03/02/2017 Respiratory chest congestion 03/02/2017 Constitutional No recent illness 01/24/2017 Constitutional No chills 01/24/2017 Constitutional diaphoresis 01/24/2017 Constitutional No fever 01/24/2017 Constitutional fatigue 0 01/24/2017 Eyes No eye erythema Ears/Nose/Throat/Neck nasal allergies 01/24/2017 Ears/Nose/Throat/Neck No nasal discharge 01/24/2017 Cardiovascular No chest pain/pressure 01/24/2017 Cardiovascular No dyspnea 01/24/2017 Respiratory No cough Respiratory No dyspnea 0 01/24/2017 Gastrointestinal No abdominal pain 01/24/2017 Dermatologic No rash Neurologic No alteration of consciousness 01/24/2017 Neurologic No mental status change 01/24/2017 Ears/Nose/Throat/Neck postnasal drip 01/24/2017 Ears/Nose/Throat/Neck sinus congestion 01/24/2017 Constitutional recent illness 10/13/2016 Constitutional No fever 10/13/2016 Eyes No eye erythema Ears/Nose/Throat/Neck nasal allergies 10/13/2016 Ears/Nose/Throat/Neck nasal discharge 10/13/2016 Ears/Nose/Throat/Neck postnasal drip 10/13/2016 Ears/Nose/Throat/Neck sinus congestion 10/13/2016 Ears/Nose/Throat/Neck sore throat 10/13/2016 Ears/Nose/Throat/Neck headache 10/13/2016 Cardiovascular No chest pain/pressure 10/13/2016 Respiratory cough 2016 Respiratory dyspnea on exertion 10/13/2016 Gastrointestinal No abdominal pain 10/13/2016 Neurologic No alteration of consciousness 10/13/2016 Neurologic No mental status change 10/13/2016 Constitutional No recent illness 08/30/2016 Constitutional No anorexia 08/30/2016 Constitutional No night sweats 08/30/2016 Constitutional No chills 08/30/2016 Constitutional diaphoresis 08/30/2016 Constitutional No fatigue 08/30/2016 Constitutional No fever 08/30/2016 Constitutional No insomnia 08/30/2016 Constitutional No malaise 08/30/2016 Constitutional No weight loss 08/30/2016 Constitutional No weight gain 08/30/2016 Constitutional No obesity 08/30/2016 Eyes No eye pain 017 Eyes No vision change Ears/Nose/Throat/Neck No dizziness 08/30/2016 Ears/Nose/Throat/Neck No headache 08/30/2016 Cardiovascular dyspnea 0 08/30/2016 Cardiovascular No chest pain/pressure 08/30/2016 Cardiovascular fatigue 0 08/30/2016 Gastrointestinal No abdominal pain 08/30/2016 Gastrointestinal No diarrhea 08/30/2016 Gastrointestinal No constipation 08/30/2016 Gastrointestinal No nausea 08/30/2016 Gastrointestinal No vomiting 08/30/2016 Respiratory No chest congestion 08/30/2016 Respiratory No chest tightness 08/30/2016 Respiratory No cigarette smoking 08/30/2016 Respiratory No cough 11/2016 Respiratory dyspnea 11/2016 Genitourinary/Nephrology No dysuria 08/30/2016 Genitourinary/Nephrology No anuria/oliguri a 08/30/2016 Musculoskeletal No stiffness 08/30/2016 Musculoskeletal No swelling 08/30/2016 Musculoskeletal arthralgia(s) 08/30/2016 Dermatologic No rash 11/2016 Dermatologic No sores Neurologic No hearing loss 08/30/2016 Neurologic No headache 0 08/30/2016 Neurologic No alteration of consciousness 08/30/2016 Psychiatric No anxiety 0 08/30/2016 Psychiatric No depression 08/30/2016 Hematologic/Lymphatic No abnormal ec chymoses 08/30/2016 Hematologic/Lymphatic No abnormal bl eeding and bruising 08/30/2016 Endocrine No polyuria Endocrine No polydipsia 08/30/2016 Endocrine No sweating Constitutional No recent illness 07/02/2016 Constitutional No chills 07/02/2016 Constitutional No fever 07/02/2016 Eyes No eye erythema 11/2016 Ears/Nose/Throat/Neck No nasal allergies 07/02/2016 Ears/Nose/Throat/Neck No nasal discharge 07/02/2016 Cardiovascular No chest pain/pressure 07/02/2016 Cardiovascular No dyspnea 07/02/2016 Respiratory No cough 11/2016 Respiratory No dyspnea 0 07/02/2016 Gastrointestinal No abdominal pain 07/02/2016 Neurologic No alteration of consciousness 07/02/2016 Neurologic No mental status change 07/02/2016 Musculoskeletal joint complaint 07/02/2016 Constitutional No recent illness 06/24/2016 Constitutional No chills 06/24/2016 Constitutional No fever 06/24/2016 Eyes No eye erythema Ears/Nose/Throat/Neck No nasal discharge 06/24/2016 Ears/Nose/Throat/Neck No nasal allergies 06/24/2016 Cardiovascular No chest pain/pressure 06/24/2016 Cardiovascular No dyspnea 06/24/2016 Respiratory No cough Respiratory No dyspnea 1 08/25/2015 Gastrointestinal No abdominal pain 06/24/2016 Dermatologic No rash Neurologic No alteration of consciousness 06/24/2016 Neurologic No mental status change 06/24/2016 Endocrine sweating 06/24 Endocrine flushing 06/24 Constitutional No recent illness 05/04/2016 Constitutional No anorexia 05/04/2016 Constitutional No night sweats 05/04/2016 Constitutional No chills 05/04/2016 Constitutional No diaphoresis 05/04/2016 Constitutional fatigue 1 07/04/2015 Constitutional No fever 05/04/2016 Constitutional No insomnia 05/04/2016 Constitutional No malaise 05/04/2016 Eyes No eye discharge Eyes No eye erythema 01/2016 Eyes vision change 05/04 Ears/Nose/Throat/Neck No dizziness 05/04/2016 Ears/Nose/Throat/Neck No headache 05/04/2016 Cardiovascular No chest pain/pressure 05/04/2016 Cardiovascular No dyspnea 05/04/2016 Cardiovascular edema 01/2016 Respiratory No cough 01/2016 Gastrointestinal No abdominal pain 05/04/2016 Genitourinary/Nephrology No dysuria 05/04/2016 Dermatologic No rash 01/2016 Dermatologic No sores Neurologic No alteration of consciousness 05/04/2016 Psychiatric No anxiety 1 07/04/2015 Psychiatric No depression 05/04/2016 Constitutional No recent illness 04/06/2016 Constitutional No anorexia 04/06/2016 Constitutional No night sweats 04/06/2016 Constitutional No chills 04/06/2016 Constitutional No diaphoresis 04/06/2016 Constitutional fatigue 1 Constitutional No fever 04/06/2016 Constitutional No insomnia 04/06/2016 Constitutional No malaise 04/06/2016 Eyes No eye discharge Eyes No eye erythema 04/2016 Eyes vision change 04/06 Ears/Nose/Throat/Neck No dizziness 04/06/2016 Ears/Nose/Throat/Neck No headache 04/06/2016 Cardiovascular No chest pain/pressure 04/06/2016 Cardiovascular No dyspnea 04/06/2016 Cardiovascular edema 04/2016 Respiratory No cough 04/2016 Gastrointestinal No abdominal pain 04/06/2016 Genitourinary/Nephrology No dysuria 04/06/2016 Musculoskeletal joint complaint 04/06/2016 Dermatologic No rash 04/2016 Dermatologic No sores Neurologic No alteration of consciousness 04/06/2016 Psychiatric No anxiety 1 Psychiatric No depression 04/06/2016 Constitutional No recent illness 03/18/2016 Constitutional No anorexia 03/18/2016 Constitutional No night sweats 03/18/2016 Constitutional No chills 03/18/2016 Constitutional diaphoresis 03/18/2016 Constitutional fatigue 0 03/18/2016 Constitutional No fever 03/18/2016 Constitutional No insomnia 03/18/2016 Constitutional No malaise 03/18/2016 Constitutional No weight loss 03/18/2016 Constitutional No weight gain 03/18/2016 Eyes No eye discharge Eyes No eye erythema Ears/Nose/Throat/Neck No dizziness 03/18/2016 Ears/Nose/Throat/Neck No headache 03/18/2016 Cardiovascular No chest pain/pressure 03/18/2016 Cardiovascular No dyspnea 03/18/2016 Cardiovascular edema Respiratory No cough Gastrointestinal No abdominal pain 03/18/2016 Genitourinary/Nephrology No dysuria 03/18/2016 Musculoskeletal joint complaint 03/18/2016 Dermatologic No rash Dermatologic No sores Neurologic No alteration of consciousness 03/18/2016 Musculoskeletal joint complaint 03/11/2016 Constitutional No anorexia 03/11/2016 Constitutional No recent illness 03/11/2016 Constitutional night sweats 03/11/2016 Constitutional No chills 03/11/2016 Constitutional diaphoresis 03/11/2016 Constitutional fatigue 0 03/11/2016 Constitutional No fever 03/11/2016 Constitutional No insomnia 03/11/2016 Constitutional No malaise 03/11/2016 Constitutional No weight loss 03/11/2016 Constitutional No weight gain 03/11/2016 Eyes No eye discharge Eyes No eye erythema Eyes vision change 03/11 Ears/Nose/Throat/Neck No dizziness 03/11/2016 Ears/Nose/Throat/Neck No headache 03/11/2016 Cardiovascular No chest pain/pressure 03/11/2016 Cardiovascular No dyspnea 03/11/2016 Cardiovascular edema Respiratory No cough Dermatologic No rash Dermatologic No sores Genitourinary/Nephrology No dysuria 03/11/2016 Gastrointestinal No abdominal pain 03/11/2016 Neurologic No alteration of consciousness 03/11/2016 Gastrointestinal diarrhea 02/24/2016 Gastrointestinal No constipation 02/24/2016 Musculoskeletal joint complaint 02/24/2016 Constitutional No recent illness 02/24/2016 Constitutional No anorexia 02/24/2016 Constitutional No night sweats 02/24/2016 Constitutional No chills 02/24/2016 Constitutional No diaphoresis 02/24/2016 Constitutional No fever 02/24/2016 Constitutional No fatigue 02/24/2016 Constitutional No insomnia 02/24/2016 Constitutional No malaise 02/24/2016 Constitutional No weight loss 02/24/2016 Constitutional No weight gain 02/24/2016 Eyes No eye erythema Eyes No eye discharge Ears/Nose/Throat/Neck No dizziness 02/24/2016 Cardiovascular No chest pain/pressure 02/24/2016 Cardiovascular edema Respiratory No cough Respiratory dyspnea on exertion 02/24/2016 Dermatologic No rash Neurologic No alteration of consciousness 02/24/2016 Constitutional No recent illness 12/16/2015 Constitutional No anorexia 12/16/2015 Constitutional No night sweats 12/16/2015 Constitutional No chills 12/16/2015 Constitutional No diaphoresis 12/16/2015 Constitutional fatigue 0 12/16/2015 Constitutional No fever 12/16/2015 Constitutional No insomnia 12/16/2015 Constitutional No malaise 12/16/2015 Eyes No eye discharge Eyes No eye erythema Ears/Nose/Throat/Neck No dizziness 12/16/2015 Ears/Nose/Throat/Neck No headache 12/16/2015 Ears/Nose/Throat/Neck No nasal allergies 12/16/2015 Ears/Nose/Throat/Neck No nasal discharge 12/16/2015 Cardiovascular No chest pain/pressure 12/16/2015 Cardiovascular No edema 12/16/2015 Cardiovascular No palpitations 12/16/2015 Respiratory No productive sputum 12/16/2015 Respiratory No chest congestion 12/16/2015 Respiratory No cough Respiratory dyspnea on exertion 12/16/2015 Respiratory dyspnea 11/26 Gastrointestinal No abdominal pain 12/16/2015 Gastrointestinal No constipation 12/16/2015 Gastrointestinal No diarrhea 12/16/2015 Musculoskeletal stiffness 12/16/2015 Musculoskeletal joint complaint 12/16/2015 Musculoskeletal muscle weakness 12/16/2015 Musculoskeletal myalgias 12/16/2015 Dermatologic No rash Neurologic No alteration of consciousness 12/16/2015 Psychiatric anxiety 11/26 Psychiatric depression 0 12/16/2015 Constitutional No recent illness 10/30/2015 Constitutional No anorexia 10/30/2015 Constitutional No night sweats 10/30/2015 Constitutional No chills 10/30/2015 Constitutional No diaphoresis 10/30/2015 Constitutional fatigue 0 10/30/2015 Constitutional No fever 10/30/2015 Constitutional No insomnia 10/30/2015 Constitutional No malaise 10/30/2015 Eyes No eye discharge Eyes No eye erythema 10/2015 Ears/Nose/Throat/Neck No dizziness 10/30/2015 Ears/Nose/Throat/Neck No headache 10/30/2015 Ears/Nose/Throat/Neck No nasal allergies 10/30/2015 Ears/Nose/Throat/Neck No nasal discharge 10/30/2015 Cardiovascular No chest pain/pressure 10/30/2015 Cardiovascular No edema 10/30/2015 Cardiovascular exercise intolerance 10/30/2015 Cardiovascular fatigue 0 10/30/2015 Cardiovascular No palpitations 10/30/2015 Respiratory No productive sputum 10/30/2015 Respiratory No chest congestion 10/30/2015 Respiratory No cough 10/2015 Respiratory dyspnea on exertion 10/30/2015 Respiratory dyspnea 05/0 10/2015 Gastrointestinal No abdominal pain 10/30/2015 Gastrointestinal No constipation 10/30/2015 Gastrointestinal No diarrhea 10/30/2015 Musculoskeletal stiffness 10/30/2015 Musculoskeletal joint complaint 10/30/2015 Musculoskeletal muscle weakness 10/30/2015 Musculoskeletal myalgias 10/30/2015 Dermatologic No rash 10/2015 Neurologic No alteration of consciousness 10/30/2015 Psychiatric anxiety 050 10/2015 Psychiatric depression 0 10/30/2015 Constitutional No recent illness 09/23/2015 Constitutional No anorexia 09/23/2015 Constitutional No night sweats 09/23/2015 Constitutional No chills 09/23/2015 Constitutional No diaphoresis 09/23/2015 Constitutional fatigue 0 09/23/2015 Constitutional No fever 09/23/2015 Constitutional No insomnia 09/23/2015 Constitutional No malaise 09/23/2015 Eyes No eye discharge Eyes No eye erythema Ears/Nose/Throat/Neck No dizziness 09/23/2015 Ears/Nose/Throat/Neck No headache 09/23/2015 Ears/Nose/Throat/Neck No nasal allergies 09/23/2015 Ears/Nose/Throat/Neck No nasal discharge 09/23/2015 Cardiovascular No chest pain/pressure 09/23/2015 Cardiovascular No edema 09/23/2015 Cardiovascular exercise intolerance 09/23/2015 Cardiovascular fatigue 0 09/23/2015 Cardiovascular No palpitations 09/23/2015 Respiratory No productive sputum 09/23/2015 Respiratory No chest congestion 09/23/2015 Respiratory No cough Respiratory dyspnea on exertion 09/23/2015 Respiratory dyspnea 08/26 Gastrointestinal No abdominal pain 09/23/2015 Gastrointestinal No constipation 09/23/2015 Gastrointestinal diarrhea 09/23/2015 Musculoskeletal stiffness 09/23/2015 Musculoskeletal No joint complaint 09/23/2015 Musculoskeletal muscle weakness 09/23/2015 Musculoskeletal No myalgias 09/23/2015 Dermatologic No rash Neurologic No alteration of consciousness 09/23/2015 Psychiatric anxiety 08/26 Psychiatric depression 0 09/23/2015 Constitutional No recent illness 09/10/2015 Constitutional No anorexia 09/10/2015 Constitutional No night sweats 09/10/2015 Constitutional No chills 09/10/2015 Constitutional No diaphoresis 09/10/2015 Constitutional fatigue 0 09/10/2015 Constitutional No fever 09/10/2015 Constitutional No insomnia 09/10/2015 Constitutional No malaise 09/10/2015 Eyes No eye discharge Eyes No eye erythema Ears/Nose/Throat/Neck No dizziness 09/10/2015 Ears/Nose/Throat/Neck No headache 09/10/2015 Ears/Nose/Throat/Neck No nasal allergies 09/10/2015 Ears/Nose/Throat/Neck No nasal discharge 09/10/2015 Cardiovascular No chest pain/pressure 09/10/2015 Cardiovascular No edema 09/10/2015 Cardiovascular exercise intolerance 09/10/2015 Cardiovascular fatigue 0 09/10/2015 Cardiovascular No palpitations 09/10/2015 Respiratory No productive sputum 09/10/2015 Respiratory No chest congestion 09/10/2015 Respiratory No cough Respiratory dyspnea on exertion 09/10/2015 Respiratory dyspnea 08/25 Gastrointestinal No abdominal pain 09/10/2015 Gastrointestinal No constipation 09/10/2015 Gastrointestinal diarrhea 09/10/2015 Musculoskeletal stiffness 09/10/2015 Musculoskeletal muscle weakness 09/10/2015 Dermatologic No rash Neurologic No alteration of consciousness 09/10/2015 Psychiatric anxiety 08/25 Psychiatric depression 0 09/10/2015 Musculoskeletal No joint complaint 09/10/2015 Musculoskeletal No myalgias 09/10/2015 Constitutional No fatigue 08/12/2015 Constitutional recent illness 08/12/2015 Ears/Nose/Throat/Neck No facial pain 08/12/2015 Ears/Nose/Throat/Neck headache 08/12/2015 Ears/Nose/Throat/Neck nasal discharge 08/12/2015 Ears/Nose/Throat/Neck No sinusitis 08/12/2015 Ears/Nose/Throat/Neck No sore throat 08/12/2015 Cardiovascular No chest pain/pressure 08/12/2015 Cardiovascular No dyspnea 08/12/2015 Cardiovascular No edema 08/12/2015 Cardiovascular No fatigue 08/12/2015 Cardiovascular No syncope 08/12/2015 Respiratory No chest tightness 08/12/2015 Respiratory No cigarette smoking 08/12/2015 Respiratory No cough Respiratory No dyspnea 0 08/12/2015 Respiratory No wheezing 08/12/2015 Gastrointestinal No constipation 08/12/2015 Gastrointestinal No diarrhea 08/12/2015 Gastrointestinal No dyspepsia 08/12/2015 Gastrointestinal No nausea 08/12/2015 Musculoskeletal No muscle weakness 08/12/2015 Musculoskeletal No myalgias 08/12/2015 Dermatologic No rash Neurologic No ataxia Neurologic No dizziness 08/12/2015 Neurologic No pain, facial 08/12/2015 Psychiatric No anxiety 0 08/12/2015 Psychiatric No depression 08/12/2015 Constitutional No recent illness 08/04/2015 Constitutional No anorexia 08/04/2015 Constitutional No night sweats 08/04/2015 Constitutional No chills 08/04/2015 Constitutional No diaphoresis 08/04/2015 Constitutional fatigue 0 08/04/2015 Constitutional No fever 08/04/2015 Constitutional No insomnia 08/04/2015 Constitutional No malaise 08/04/2015 Eyes No eye discharge Eyes No eye erythema 01/2016 Ears/Nose/Throat/Neck No dizziness 08/04/2015 Ears/Nose/Throat/Neck No headache 08/04/2015 Ears/Nose/Throat/Neck No nasal allergies 08/04/2015 Ears/Nose/Throat/Neck No nasal discharge 08/04/2015 Cardiovascular No chest pain/pressure 08/04/2015 Cardiovascular No edema 08/04/2015 Cardiovascular exercise intolerance 08/04/2015 Cardiovascular fatigue 0 08/04/2015 Cardiovascular No palpitations 08/04/2015 Respiratory No productive sputum 08/04/2015 Respiratory No chest congestion 08/04/2015 Respiratory No cough 01/2016 Respiratory dyspnea on exertion 08/04/2015 Respiratory dyspnea 01/2016 Gastrointestinal No abdominal pain 08/04/2015 Gastrointestinal No constipation 08/04/2015 Gastrointestinal No diarrhea 08/04/2015 Musculoskeletal joint complaint 08/04/2015 Dermatologic No rash 01/2016 Neurologic No alteration of consciousness 08/04/2015 Psychiatric anxiety 02/0 01/2016 Psychiatric depression 0 08/04/2015 Musculoskeletal muscle weakness 08/04/2015 Musculoskeletal myalgias 08/04/2015 Musculoskeletal stiffness 08/04/2015 Constitutional No recent illness 05/16/2015 Constitutional No night sweats 05/16/2015 Constitutional No chills 05/16/2015 Constitutional No diaphoresis 05/16/2015 Constitutional fatigue 1 07/16/2014 Constitutional No fever 05/16/2015 Constitutional No insomnia 05/16/2015 Constitutional No malaise 05/16/2015 Eyes No eye discharge Eyes No eye erythema Ears/Nose/Throat/Neck No dizziness 05/16/2015 Ears/Nose/Throat/Neck No headache 05/16/2015 Ears/Nose/Throat/Neck No nasal allergies 05/16/2015 Ears/Nose/Throat/Neck No nasal discharge 05/16/2015 Cardiovascular No chest pain/pressure 05/16/2015 Cardiovascular No edema 05/16/2015 Respiratory No productive sputum 05/16/2015 Respiratory No chest congestion 05/16/2015 Respiratory No cough Gastrointestinal No abdominal pain 05/16/2015 Gastrointestinal No constipation 05/16/2015 Gastrointestinal No diarrhea 05/16/2015 Musculoskeletal No joint complaint 05/16/2015 Dermatologic No rash Neurologic No alteration of consciousness 05/16/2015 Psychiatric anxiety 04/28 Psychiatric depression 1 07/16/2014 Constitutional No anorexia 05/16/2015 Cardiovascular fatigue 1 07/16/2014 Cardiovascular exercise intolerance 05/16/2015 Cardiovascular No palpitations 05/16/2015 Respiratory dyspnea on exertion 05/16/2015 Respiratory dyspnea 04/28 Constitutional recent illness 05/12/2015 Constitutional fatigue 1 07/12/2014 Respiratory chest tightness 05/12/2015 Respiratory cigarette smoking 05/12/2015 Respiratory dyspnea on exertion 05/12/2015 Gastrointestinal No abdominal pain 05/12/2015 Cardiovascular No chest pain/pressure 05/12/2015 Cardiovascular No arrhythmia 05/12/2015 Constitutional No recent illness 04/21/2015 Constitutional No anorexia 04/21/2015 Constitutional No night sweats 04/21/2015 Constitutional No chills 04/21/2015 Constitutional No diaphoresis 04/21/2015 Constitutional fatigue 1 Constitutional No fever 04/21/2015 Constitutional No insomnia 04/21/2015 Constitutional No malaise 04/21/2015 Constitutional weight loss 04/21/2015 Eyes No eye discharge Eyes No eye erythema Ears/Nose/Throat/Neck No dizziness 04/21/2015 Ears/Nose/Throat/Neck No headache 04/21/2015 Ears/Nose/Throat/Neck No nasal allergies 04/21/2015 Ears/Nose/Throat/Neck No nasal discharge 04/21/2015 Cardiovascular No chest pain/pressure 04/21/2015 Cardiovascular No dyspnea 04/21/2015 Cardiovascular No edema 04/21/2015 Respiratory No productive sputum 04/21/2015 Respiratory No chest congestion 04/21/2015 Respiratory No cough Gastrointestinal No abdominal pain 04/21/2015 Gastrointestinal No diarrhea 04/21/2015 Gastrointestinal No constipation 04/21/2015 Genitourinary/Nephrology No dysuria 04/21/2015 Neurologic No alteration of consciousness 04/21/2015 Dermatologic No rash Musculoskeletal No joint complaint 04/21/2015 Psychiatric anxiety 03/28 Psychiatric depression 1 Endocrine No hair loss 1 Endocrine dry or coarse skin 04/21/2015 Hematologic/Lymphatic No abnormal bl eeding and bruising 04/21/2015 Physical Exam Exam Name System Name It em Name Status Result Effective Dates Notes Full Exam - General 1994 Constitutional general appearance Overall: well developed 03/12/2019 None Full Exam - General 1994 Constitutional general appearance Overall: in no acute distress 03/12/2019 None Full Exam - General 1994 Constitutional general appearance Overall: well nourished 03/12/2019 None Full Exam - General 1994 Eyes conjunctiva/eyelids Overall: conjunctiva clear 03/12/2019 None Full Exam - General 1994 Eyes conjunctiva/eyelids Overall: cornea clear 03/12/2019 None Full Exam - General 1994 Eyes conjunctiva/eyelids Overall: eyelids normal 03/12/2019 None Full Exam - General 1994 Ears/Nose/Throat lips/teeth/gingiva Overall: benign lips 03/12/2019 None Full Exam - General 1994 Ears/Nose/Throat oral cavity/pharynx/larynx Overall: oral mucosa clear 03/12/2019 None Full Exam - General 1994 Ears/Nose/Throat oral cavity/pharynx/larynx Overall: oropharyngeal mucosa clear 03/12/2019 None Full Exam - General 1994 Respiratory auscultation Overall: breath sounds clear bilaterally 03/12/2019 None Full Exam - General 1994 Respiratory respiratory effort/rhythm Overall: no retractions 03/12/2019 None Full Exam - General 1994 Respiratory respiratory effort/rhythm Overall: normal rate 03/12/2019 None Full Exam - General 1994 Cardiovascular auscultation of heart Overall: regular rate 03/12/2019 None Full Exam - General 1994 Cardiovascular auscultation of heart Overall: normal heart sounds 03/12/2019 None Full Exam - General 1994 Musculoskeletal head and neck Overall: head atraumatic 03/12/2019 None Full Exam - General 1994 Neurologic cranial nerves Overall: crainial nerves 2 - 12 grossly intact 03/12/2019 None Full Exam - General 1994 Psychiatric orientation/consciousness Overall: oriented to person, place and time 03/12/2019 None Full Exam - General 1994 Psychiatric mood and affect Overall: normal mood and affect 03/12/2019 None Full Exam - General 1994 Psychiatric appearance Overall: well-groomed, good eye contact 03/12/2019 None Full Exam - General 1994 Constitutional general appearance Overall: well developed 10/12/2018 None Full Exam - General 1994 Constitutional general appearance Overall: in no acute distress 10/12/2018 None Full Exam - General 1994 Constitutional general appearance Overall: well nourished 10/12/2018 None Full Exam - General 1994 Eyes conjunctiva/eyelids Overall: eyelids normal 10/12/2018 None Full Exam - General 1994 Eyes conjunctiva/eyelids Overall: cornea clear 10/12/2018 None Full Exam - General 1994 Eyes conjunctiva/eyelids Overall: conjunctiva clear 10/12/2018 None Full Exam - General 1994 Ears/Nose/Throat otoscopic exam Overall: tympanic membranes clear 10/12/2018 None Full Exam - General 1994 Ears/Nose/Throat otoscopic exam Overall: external auditory canals clear 10/12/2018 None Full Exam - General 1994 Ears/Nose/Throat lips/teeth/gingiva Overall: benign lips 10/12/2018 None Full Exam - General 1994 Ears/Nose/Throat oral cavity/pharynx/larynx Overall: oral mucosa clear 10/12/2018 None Full Exam - General 1994 Respiratory respiratory effort/rhythm Overall: normal rate 10/12/2018 None Full Exam - General 1994 Respiratory respiratory effort/rhythm Overall: no retractions 10/12/2018 None Full Exam - General 1994 Respiratory auscultation Diffuse: diminished 10/12/2018 None Full Exam - General 1994 Cardiovascular auscultation of heart Overall: regular rate 10/12/2018 None Full Exam - General 1994 Cardiovascular auscultation of heart Overall: normal heart sounds 10/12/2018 None Full Exam - General 1994 Musculoskeletal head and neck Overall: head atraumatic 10/12/2018 None Full Exam - General 1994 Musculoskeletal gait and station Overall: normal station 10/12/2018 None Full Exam - General 1994 Musculoskeletal gait and station Overall: normal gait 10/12/2018 None Full Exam - General 1994 Neurologic cranial nerves Overall: crainial nerves 2 - 12 grossly intact 10/12/2018 None Full Exam - General 1994 Psychiatric orientation/consciousness Overall: oriented to person, place and time 10/12/2018 None Full Exam - General 1994 Psychiatric mood and affect Overall: normal mood and affect 10/12/2018 None Full Exam - General 1994 Constitutional general appearance Overall: well nourished 09/13/2018 None Full Exam - General 1994 Constitutional general appearance Overall: in no acute distress 09/13/2018 None Full Exam - General 1994 Constitutional general appearance Overall: well developed 09/13/2018 None Full Exam - General 1994 Eyes conjunctiva/eyelids Overall: eyelids normal 09/13/2018 None Full Exam - General 1994 Eyes conjunctiva/eyelids Overall: cornea clear 09/13/2018 None Full Exam - General 1994 Eyes conjunctiva/eyelids Overall: conjunctiva clear 09/13/2018 None Full Exam [...] None Full Exam - General 1994 Eyes conjunctiva/eyelids Overall: conjunctiva clear 05/04/2018 None Full Exam - General 1994 Eyes conjunctiva/eyelids Overall: cornea clear 05/04/2018 None Full Exam - General 1994 Eyes conjunctiva/eyelids Overall: eyelids normal 05/04/2018 None Full Exam [...] None Full Exam - General 1994 Eyes conjunctiva/eyelids Overall: conjunctiva clear 01/10/2018 None Full Exam - General 1994 Eyes conjunctiva/eyelids Overall: cornea clear 01/10/2018 None Full Exam - General 1994 Eyes conjunctiva/eyelids Overall: eyelids normal 01/10/2018 None Full Exam [...] None Full Exam - General 1994 Eyes conjunctiva/eyelids Overall: conjunctiva clear 12/06/2017 None Full Exam - General 1994 Eyes conjunctiva/eyelids Overall: cornea clear 12/06/2017 None Full Exam - General 1994 Eyes conjunctiva/eyelids Overall: eyelids normal 12/06/2017 None Full Exam [...] None Full Exam - General 1994 Eyes conjunctiva/eyelids Overall: conjunctiva clear 06/22/2017 None Full Exam - General 1994 Eyes conjunctiva/eyelids Overall: eyelids normal 06/22/2017 None Full Exam - General 1994 Ears/Nose/Throat otoscopic exam Overall: external auditory canals clear 06/22/2017 None Full Exam - General 1994 Ears/Nose/Throat otoscopic exam Tympanic membrane: air-fluid level 06/22/2017 None Full Exam - General [...] None Full Exam - General 1994 Eyes conjunctiva/eyelids Overall: conjunctiva clear 03/02/2017 None Full Exam - General 1994 Eyes conjunctiva/eyelids Overall: eyelids normal 03/02/2017 None Full Exam [...] General 1994 Ears/Nose/Throat otoscopic exam Tympanic membrane: air-fluid level 03/02/2017 None Full Exam - General [...] None Full Exam - General 1994 Eyes conjunctiva/eyelids Overall: conjunctiva clear 01/24/2017 None Full Exam - General 1994 Eyes conjunctiva/eyelids Overall: eyelids normal 01/24/2017 None Full Exam [...] 10/13/2016 None Full Exam - ENT Ears/Nose/Throat lips/teeth/gingiva Overall: benign lips 10/13/2016 None Full Exam - ENT Ears/Nose/Throat oropharynx Overall: oral mucosa clear 10/13/2016 None Full Exam - ENT Ears/Nose/Throat oropharynx Oropharynx: erythema 10/13/2016 None Full Exam - ENT Face and Head palpation Left maxillary sinus: tender 10/13/2016 None Full Exam - ENT Face and Head palpation Right maxillary sinus: tender 10/13/2016 None Full Exam - ENT Respiratory auscultation Diffuse: diminished 09/25 None Full Exam - ENT Respiratory inspection [...] Neurologic orientation Overall: oriented to person, place a nd time 10/13/2016 None Full Exam - General 1994 Constitutional general appearance Development: well developed 08/30/2016 None Full Exam - General 1994 Constitutional general appearance Development: appears stated age 0308/30/2016 None Full Exam - General 1994 Eyes pupils and irises Overall: pupils equal, round, reactive to light and accomodation 08/30/2016 None Full Exam - General 1994 Eyes conjunctiva/eyelids Overall: conjunctiva clear 08/30/2016 None Full Exam - General 1994 Eyes conjunctiva/eyelids Overall: cornea clear 08/30/2016 None Full Exam - General 1994 Eyes conjunctiva/eyelids Overall: eyelids normal 08/30/2016 None Full Exam [...] - General 1994 Neck thyroid Overall: nontender 08/30 None Full Exam - General 1994 Neck [...] None Full Exam - General 1994 Eyes conjunctiva/eyelids Overall: conjunctiva clear 07/02/2016 None Full Exam - General 1994 Eyes conjunctiva/eyelids Overall: eyelids normal 07/02/2016 None Full Exam [...] skin Location: shoulder 07/02/2016 left posterior - erythema tous patch Full Exam - General 1994 Constitutional general appearance Overall: well developed 06/24/2016 None Full Exam - General 1994 Constitutional general appearance Overall: in no acute distress 06/24/2016 None Full Exam - General 1994 Constitutional general appearance Overall: well nourished 06/24/2016 None Full Exam - General 1994 Eyes conjunctiva/eyelids Overall: conjunctiva clear 06/24/2016 None Full Exam - General 1994 Eyes conjunctiva/eyelids Overall: eyelids normal 06/24/2016 None Full Exam [...] None Full Exam - General 1994 Eyes conjunctiva/eyelids Overall: conjunctiva clear 05/04/2016 None Full Exam [...] None Full Exam - General 1994 Eyes conjunctiva/eyelids Overall: conjunctiva clear 04/06/2016 None Full Exam [...] None Full Exam - General 1994 Eyes conjunctiva/eyelids Overall: conjunctiva clear 03/18/2016 None Full Exam [...] None Full Exam - General 1994 Eyes conjunctiva/eyelids Overall: conjunctiva clear 03/11/2016 None Full Exam [...] None Full Exam - General 1994 Eyes conjunctiva/eyelids Overall: conjunctiva clear 02/24/2016 None Full Exam [...] None Full Exam - General 1994 Eyes conjunctiva/eyelids Overall: conjunctiva clear 12/16/2015 None Full Exam [...] None Full Exam - General 1994 Eyes conjunctiva/eyelids Overall: conjunctiva clear 10/30/2015 None Full Exam [...] None Full Exam - General 1994 Eyes conjunctiva/eyelids Overall: conjunctiva clear 09/23/2015 None Full Exam [...] None Full Exam - General 1994 Eyes conjunctiva/eyelids Overall: conjunctiva clear 09/10/2015 None Full Exam [...] None Full Exam - General 1994 Eyes conjunctiva/eyelids Overall: conjunctiva clear 08/12/2015 None Full Exam - General 1994 Eyes conjunctiva/eyelids Overall: cornea clear 08/12/2015 None Full Exam - General 1994 Eyes conjunctiva/eyelids Overall: eyelids normal 08/12/2015 None Full Exam [...] None Full Exam - General 1994 Eyes conjunctiva/eyelids Overall: conjunctiva clear 08/04/2015 None Full Exam [...] None Full Exam - General 1994 Eyes conjunctiva/eyelids Overall: conjunctiva clear 05/16/2015 None Full Exam [...] None Full Exam - General 1994 Eyes conjunctiva/eyelids Overall: conjunctiva clear 04/21/2015 None Full Exam - General 1994 Eyes pupils and irises Overall: pupils equal, round, reactive to light and accomodation 04/21/2015 None Procedures Procedure Codes Date THER/PROPH/DIAG INJ SC/IM CPT-4: 16130 06/22/2017 TRIAMCINOLONE ACET I [place] NOS CPT-4: J3301 06/22/2017 THER/PROPH/DIAG INJ SC/IM CPT-4: 33316 08/04/2015 TRIAMCINOLONE ACET I [place] NOS CPT-4: J3301 08/04/2015 Vital Signs Date Vital 03/12/2019 Blood Pressure 1: 148/88 Code: 8480-6 BMI: 31.4 Code: 30317-3 Heart Rate 1: 66 bpm Height: 5'1" SpO2: 96% Weight: 166 lbs 01/22/2019 Blood Pressure 1: 220/128 Code: 8480-6 Heart Rate 1: 100 bpm SpO2: 98% 10/12/2018 Blood Pressure 1: 110/74 Code: 8480-6 Heart Rate 1: 105 bpm Height: 5'1" SpO2: 95% Weight: 09/13/2018 Blood Pressure 1: 156/86 Code: 8480-6 BMI: 32.3 Code: 73835-3 Heart Rate 1: 90 bpm Height: 5'1" SpO2: 98% Weight: 171 lbs 05/04/2018 Blood Pressure 1: 158/88 Code: 8480-6 BMI: 33.3 Code: 22581-2 Heart Rate 1: 63 bpm Height: 5'1" SpO2: 98% Weight: 176 lbs 01/10/2018 Blood Pressure 1: 138/88 Code: 8480-6 BMI: 31.9 Code: 83132-6 Heart Rate 1: 78 bpm Height: 5'1" SpO2: 99% Weight: 169 lbs 12/06/2017 Blood Pressure 1: 158/98 Code: 8480-6 BMI: 32.3 Code: 68335-4 Heart Rate 1: 60 bpm Height: 5'1" SpO2: 100% Weight: 171 lbs 06/22/2017 Blood Pressure 1: 168/92 Code: 8480-6 BMI: 32.6 Code: 91275-0 Heart Rate 1: 133 bpm Height: 5'1" SpO2: 97% Temperature: 37.6 (C ) / 99.7 (F) Weight: 172 lbs 8 oz 03/02/2017 Blood Pressure 1: 168/90 Code: 8480-6 BMI: 35.0 Code: 19154-2 Heart Rate 1: 80 bpm Height: 5'1" SpO2: 94% Weight: 185 lbs 01/24/2017 Blood Pressure 1: 130/68 Code: 8480-6 BMI: 35.3 Code: 02780-6 Heart Rate 1: 66 bpm Height: 5'1" SpO2: 98% Weight: 187 lbs 10/13/2016 Blood Pressure 1: 136/74 Code: 8480-6 BMI: 35.1 Code: 00815-6 Heart Rate 1: 71 bpm Height: 5'1" SpO2: 97% Weight: 186 lbs 08/30/2016 Blood Pressure 1: 128/80 Code: 8480-6 BMI: 35.0 Code: 51611-0 Heart Rate 1: 75 bpm Height: 5'1" SpO2: 96% Weight: 185 lbs 8 oz 07/02/2016 Blood Pressure 1: 140/78 Code: 8480-6 Heart Rate 1: 63 bpm Height: 5'1" SpO2: 98% 06/24/2016 Blood Pressure 1: 148/100 Code: 8480-6 BMI: 34.2 Code: 58323-0 Heart Rate 1: 110 bpm Height: 5'1" SpO2: 94% Weight: 181 lbs 05/04/2016 Blood Pressure 1: 150/90 Code: 8480-6 Blood Pressure 1: 134/82 Code: 8480-6 BMI: 34.6 Code: 83649-1 Heart Rate 1: 74 bpm Height: 5'1" SpO2: 98% Weight: 183 lbs 04/06/2016 Blood Pressure 1: 156/92 Code: 8480-6 Blood Pressure 1: 158/88 Code: 8480-6 BMI: 34.8 Code: 51661-2 Heart Rate 1: 69 bpm Height: 5'1" SpO2: 97% Weight: 184 lbs 03/18/2016 Blood Pressure 1: 148/90 Code: 8480-6 BMI: 35.1 Code: 79746-8 Heart Rate 1: 106 bpm Height: 5'1" SpO2: 94% Weight: 186 lbs 03/11/2016 Blood Pressure 1: 140/90 Code: 8480-6 BMI: 35.1 Code: 55042-2 Heart Rate 1: 103 bpm Height: 5'1" SpO2: 96% Weight: 186 lbs 02/24/2016 Blood Pressure 1: 130/80 Code: 8480-6 BMI: 34.4 Code: 24315-2 Heart Rate 1: 110 bpm Height: 5'1" SpO2: 96% Weight: 182 lbs 12/16/2015 Blood Pressure 1: 144/98 Code: 8480-6 BMI: 33.8 Code: 57643-8 Heart Rate 1: 97 bpm Height: 5'1" SpO2: 98% Weight: 179 lbs 10/30/2015 Blood Pressure 1: 138/88 Code: 8480-6 BMI: 33.6 Code: 69470-5 Heart Rate 1: 88 bpm Height: 5'1" SpO2: 98% Weight: 178 lbs 09/23/2015 Blood Pressure 1: 152/94 Code: 8480-6 BMI: 32.7 Code: 41267-3 Heart Rate 1: 83 bpm Height: 5'1" SpO2: 97% Weight: 173 lbs 09/10/2015 Blood Pressure 1: 136/82 Code: 8480-6 BMI: 32.1 Code: 55129-6 Heart Rate 1: 105 bpm Height: 5'1" SpO2: 97% Weight: 170 lbs 08/12/2015 Blood Pressure 1: 132/70 Code: 8480-6 BMI: 31.2 Code: 25371-9 Heart Rate 1: 88 bpm Height: 5'1" SpO2: 95% Temperature: 36.7 (C ) / 98.0 (F) Weight: 165 lbs 08/04/2015 Blood Pressure 1: 136/80 Code: 8480-6 BMI: 31.0 Code: 36591-2 Heart Rate 1: 110 bpm Height: 5'1" SpO2: 98% Weight: 164 lbs 05/16/2015 Blood Pressure 1: 138/88 Code: 8480-6 BMI: 32.9 Code: 63466-9 Heart Rate 1: 87 bpm Height: 5'1" SpO2: 90% Weight: 174 lbs 05/12/2015 BMI: 31.7 Code: 86900-1 Height: 5'1" Weight: 168 lbs 04/21/2015 Blood Pressure 1: 124/82 Code: 8480-6 BMI: 32.1 Code: 87394-5 Heart Rate 1: 87 bpm Height: 5'1" Weight: 170 lbs Functional Status No Functional Status data History of Present Illness Symptom Name Status Resu lt Effective Date Notes Location on the scalp 03/12/2019 None Quality new 03/12/2019 None Onset and Resolution s udden in onset 03/12/2019 None Onset of Symptom 1 wee k ago 03/12/2019 None Limitation on Activities moderately limits activities 03/12/2019 None Frequency of Episodes unchanged 03/12/2019 None Frequency of Episodes daily 03/12/2019 None _ infection 10/12/2018 None Onset of Symptom 2 wee ks ago 10/12/2018 None Abnormal Indicator abn ormal 09/13/2018 None Onset of Symptom sever al months ago 09/13/2018 None Onset and Resolution o ngoing 09/13/2018 None Triggers Denies no kno wn associated factors 09/13/2018 None Test Performed 1 [...] of the thyroid 12/06/2017 None hypothyroid Quality flight surgeon marley 12/06/2017 None hypothyroid Onset and Resolution ongoing 12/06/2017 None hypothyroid Alleviating Factors medication 12/06/2017 None cough Location in the th roat 06/22/2017 None cough Location in the braulio ng 06/22/2017 None cough Quality acute 06/22/2017 None cough Quality hacking 06/22/2017 None cough [...] Findings vomiting 06/22/2017 None cough Triggers post nasa l drip 06/22/2017 None cough Triggers ill conta cts 06/22/2017 None cough Triggers no known associated factors 06/22/2017 None cough Alleviating Factors OTC medications 06/22/2017 None malaise Quality acute 06/22/2017 None malaise Onset and Resolution sudden in onset 06/22/2017 None malaise Onset of Symptom 3 days ago 06/22/2017 None malaise Ill Contacts ill contacts 06/22/2017 None malaise Triggers no know n associated factors 06/22/2017 None malaise Triggers stress [...] Findings hoarseness 03/02/2017 None sore throat Location dif fusely 03/02/2017 None sore throat Quality achi ng 03/02/2017 None sore throat Quality cons tant 03/02/2017 None sore throat Quality dull 03/02/2017 None sore throat Quality scra tchy 03/02/2017 None sore throat Onset and Resolution sudden in onset 03/02/2017 None sore throat Onset of Symptom 2 days ago 03/02/2017 None sore throat Frequency of Episodes daily 03/02/2017 None sore throat Pertinent Findings cough 03/02/2017 None sore throat Pertinent Findings hoarseness 03/02/2017 None diaphoresis Quality cons tant 01/24/2017 None diaphoresis Onset and Resolution ongoing 01/24/2017 None diaphoresis Onset of Symptom 8 months ago 01/24/2017 None diaphoresis Severity mod erate 01/24/2017 None diaphoresis Severity sev ere 01/24/2017 None diaphoresis Frequency of Episodes daily [...] pain 01/24/2017 None cough Location in the th roat 10/13/2016 None cough Quality constant 10/13/2016 None cough Quality hacking 10/13/2016 None cough Onset and Resolution sudden in onset 10/13/2016 None cough Onset of Symptom 3 days ago 10/13/2016 None cough Frequency of Episodes daily 10/13/2016 None cough Pertinent Findings hoarseness 10/13/2016 None cough Pertinent Findings nasal congestion 10/13/2016 None sore throat Location dif fusely 10/13/2016 None sore throat Quality cons tant 10/13/2016 None sore throat Quality scra tchy 10/13/2016 None sore throat Quality achi ng 10/13/2016 None sore throat Onset and Resolution [...] of the thyroid 08/30/2016 None hypothyroid Quality flight surgeon marley 08/30/2016 None hypothyroid Onset and Resolution ongoing 08/30/2016 None hypothyroid Alleviating Factors medication 08/30/2016 None hypertension Exacerbating Factors stress 08/30/2016 None shoulder pain Location L eft Posterior Shoulder 07/02/2016 None shoulder pain Quality ac eloisa 07/02/2016 None shoulder pain Onset and Resolution [...] of the thyroid 05/04/2016 None hypothyroid Quality flight surgeon marley 05/04/2016 None hypothyroid Onset and Resolution ongoing [...] of the thyroid 04/06/2016 None hypothyroid Quality flight surgeon marley 04/06/2016 None hypothyroid Onset and Resolution ongoing 04/06/2016 None hypothyroid Alleviating Factors medication 04/06/2016 None hypertension Blood Pressure Values patient checking blood pressure at home - did not bring in readings 04/06/2016 None foot pain Location on th e left 04/06/2016 None foot pain Location on th e right 04/06/2016 None foot pain Location on th e plantar surface 04/06/2016 None foot pain Limitation on Activities allows weight bearing activity 04/06/2016 None foot pain Pertinent Findings swelling 04/06/2016 None foot pain Pertinent Findings numbness 04/06/2016 None blood pressure followup Quality intermittent 03/18/2016 None blood pressure followup Onset and Re solution ongoing 03/18/2016 None blood pressure followup Onset of Symptom during adulthood 03/18/2016 None blood pressure followup Frequency of Episodes daily 03/18/2016 None blood pressure followup Pertinent Findings anxiety 03/18/2016 None blood pressure followup Pertinent Findings Denies dyspnea 03/18/2016 None blood pressure followup Pertinent Findings Denies edema 03/18/2016 None blood pressure followup Blood Pressu re Values pt checking blood pressure - see scanned document 03/18/2016 None blood pressure followup Quality intermittent 03/11/2016 None blood pressure followup Onset and Re solution ongoing 03/11/2016 None blood pressure followup Blood Pressu re Values not checking blood pressure at home [...] Factors rest 02/24/2016 None edema Quality acute 02/24/2016 None edema Location on the le ft leg 02/24/2016 None edema Location on the ri ght leg 02/24/2016 None hypertension Onset and Resolution [...] Alleviating Factors medication 12/16/2015 None hypothyroid Quality flight surgeon marley 12/16/2015 None hypothyroid Location at the level of the thyroid 12/16/2015 None hypertension Quality int ermittent 10/30/2015 None hypertension Onset and Resolution ongoing 10/30/2015 None hypertension Onset of Symptom during adulthood 10/30/2015 None hypertension Blood Pressure Values not checking blood pressure at home 10/30/2015 None hypertension Severity no t consistently severe symptoms, the symptoms fluctuate from [...] nausea Quality acute 09/23/2015 None diarrhea Quality improvi ng 09/23/2015 None nausea Quality improving 09/23/2015 None diarrhea Quality intermi ttent 09/10/2015 None diarrhea Quality loose 09/10/2015 None [...] both nares 08/12/2015 None sinusitis Location in th e bilateral frontal sinuses 08/12/2015 None sinusitis Location in th e bilateral maxillary sinuses 08/12/2015 None sinusitis Onset [...] sinusitis Quality pain 08/12/2015 None sinusitis Quality pressu re 08/12/2015 None sinusitis Severity moder ate 08/12/2015 None knee pain Location on th e right 08/04/2015 None knee pain Location on th e left 08/04/2015 None knee pain Quality sharp [...] severe 08/04/2015 None ankle pain Location on t he left 08/04/2015 None ankle pain Location on t he right 08/04/2015 None ankle pain Quality acute [...] limits activities 08/04/2015 None ankle pain Severity tyler re 08/04/2015 None foot pain Location on th e left 08/04/2015 None foot pain Location on th e right 08/04/2015 None foot pain Quality acute [...] Symptom during adulthood 05/16/2015 None hypothyroid Quality stab le 04/21/2015 None hypothyroid Pertinent Findings Denies coarse skin 04/21/2015 None hypothyroid Pertinent Findings Denies brittle nails 04/21/2015 None hypertension Quality int ermittent 04/21/2015 None hypertension Onset and Resolution ongoing [...] Alleviating Factors medication 04/21/2015 None hypertension Severity no t consistently severe symptoms, the symptoms fluctuate from [...] No Advance Directive data Encounters Encounter Performer Loca tion Codes Date EST. PATIENT, LEVEL IV Diagnosis: Other specified hypothyroidism[ICD10: E03.8] Diagnosis: Essential (primary) hypertension[ICD10: I10] Britney Maya MD, [facility] CPT-4: 02479 03/12/2019 ([id number]) Miscellcliffordou s no charge Diagnosis: Essential (primary) hypertension[ICD10: I10] Meghana Maya MD, [facility] CPT-4: 42540 01/22/2019 [id number] EST. PATIENT, LEVEL III Diagnosis: Chronic kidney disease, stage 3 (moderate)[ICD10: N18.3] Diagnosis: Essential (primary) hypertension[ICD10: I10] Diagnosis: Encounter for follow-up examination after completed treatment for conditions other than malignant neoplasm[ICD10: Z09] Britney Maya MD, [facility] CPT-4: 45434 10/12/2018 66003 EST. PATIENT, LEVEL III Diagnosis: Hypokalemia[ICD10: E87.6] Diagnosis: Interstitial pulmonary disease, unspecified[ICD10: J84.9] Britney Maya MD, [facility] CPT-4: 22622 09/13/2018 38327 EST. PATIENT, LEVEL IV Diagnosis: Essential (primary) hypertension[ICD10: I10] Diagnosis: Interstitial pulmonary disease, unspecified[ICD10: J84.9] Diagnosis: Chronic kidney disease, stage 3 (moderate)[ICD10: N18.3] Diagnosis: Mixed hyperlipidemia[ICD10: E78.2] Britney Maya MD, [facility] CPT-4: 36517 05/04/2018 82284 EST. PATIENT, LEVEL IV Diagnosis: Essential (primary) hypertension[ICD10: I10] Diagnosis: Interstitial pulmonary disease, unspecified[ICD10: J84.9] Diagnosis: Chronic kidney disease, stage 3 (moderate)[ICD10: N18.3] Diagnosis: Mixed hyperlipidemia[ICD10: E78.2] Britney Maya MD, [facility] CPT-4: 86282 01/10/2018 23339 EST. PATIENT, LEVEL IV Diagnosis: Other specified hypothyroidism[ICD10: E03.8] Diagnosis: Essential (primary) hypertension[ICD10: I10] Britney Maya MD, [facility] CPT-4: 83483 12/06/2017 63033 EST. PATIENT, LEVEL IV Diagnosis: Other malaise[ICD10: R53.81] Diagnosis: Other fatigue[ICD10: R53.83] Britney Maya MD, [facility] CPT-4: 73382 06/22/2017 38817 EST. PATIENT, LEVEL IV Diagnosis: Acute laryngopharyngitis[ICD10: J06.0] Diagnosis: Other acute sinusitis[ICD10: J01.80] Diagnosis: Other allergic rhinitis[ICD10: J30.89] Britney Maya MD, [facility] CPT-4: 70364 03/02/2017 70805 EST. PATIENT, LEVEL IV Diagnosis: Generalized hyperhidrosis[ICD10: R61] Diagnosis: Other acute sinusitis[ICD10: J01.80] Diagnosis: Other fatigue[ICD10: R53.83] Diagnosis: Interstitial pulmonary disease, unspecified[ICD10: J84.9] Britney Maya MD, [facility] CPT-4: 24556 01/24/2017 54791 EST. PATIENT, LEVEL IV Diagnosis: Acute laryngopharyngitis[ICD10: J06.0] Diagnosis: Other acute sinusitis[ICD10: J01.80] Britney Maya MD, [facility] CPT- 4: 23328 10/13/2016 ([id number]) 65006 EST. 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 PATIENT, LEVEL IV Diagnosis: Pain in thoracic spine[ICD10: M54.6] Diagnosis: Pain in left shoulder[ICD10: M25.512] Diagnosis: Zoster without complications[ICD10: B02.9] Britney Maya MD, [facility] CPT-4: 76779 07/02/2016 99357 EST. PATIENT, LEVEL III Diagnosis: Other specified hypothyroidism[ICD10: E03.8] Diagnosis: Menopausal and female climacteric states[ICD10: N95.1] Diagnosis: Essential (primary) hypertension[ICD10: I10] Britney Maya MD, [facility] CPT-4: 05130 06/24/2016 ([id number]) 51816 EST. P ATIENT, LEVEL IV Diagnosis: Essential (primary) hypertension[ICD10: I10] Diagnosis: Atrophy of thyroid (acquired)[ICD10: E03.4] Diagnosis: Pain in left foot[ICD10: M79.672] Meghana Maya MD, [facility] CPT-4: 44978 05/04/2016 ([id number]) 07649 EST. P ATIENT, LEVEL IV Diagnosis: Essential (primary) hypertension[ICD10: I10] Diagnosis: Pain in left leg[ICD10: M79.605] Diagnosis: Pain in left foot[ICD10: M79.672] Diagnosis: Atrophy of thyroid (acquired)[ICD10: E03.4] Meghana Maya MD, [facility] CPT-4: 30210 04/06/2016 ([id number]) 61996 EST. P ATIENT, LEVEL III Diagnosis: Essential (primary) hypertension[ICD10: I10] Diagnosis: Localized edema[ICD10: R60.0] Catie Maya MD, [facility] CPT- 4: 52222 03/18/2016 ([id number]) 69330 EST. P ATIENT, LEVEL III Diagnosis: Essential (primary) hypertension[ICD10: I10] Diagnosis: Pain in left foot[ICD10: M79.672] Catie Maya MD, [facility] CPT- 4: 32038 03/11/2016 ([id number]) 64683 EST. P ATIENT, LEVEL III Diagnosis: Localized edema[ICD10: R60.0] Diagnosis: Essential (primary) hypertension[ICD10: I10] Catie Maya MD, [facility] CPT-4: 27549 02/24/2016 ([id number]) 77111 EST. P ATIENT, LEVEL IV Diagnosis: Hypothyroidism, unspecified[ICD10: E03.9] Diagnosis: Essential (primary) hypertension[ICD10: I10] Meghana Maya MD, [facility] CPT-4: 04989 12/16/2015 ([id number]) 95709 EST. P ATIENT, LEVEL III Diagnosis: Essential (primary) hypertension[ICD10: I10] Diagnosis: Hypothyroidism, unspecified[ICD10: E03.9] Meghana Maya MD, [facility] CPT-4: 62718 10/30/2015 ([id number]) 76884 EST. P ATIENT, LEVEL IV Diagnosis: Diarrhea, unspecified[ICD10: R19.7] Diagnosis: Essential (primary) hypertension[ICD10: I10] Meghana Maya MD, [facility] CPT-4: 29003 09/23/2015 ([id number]) 96212 EST. P ATIENT, LEVEL III Diagnosis: Essential (primary) hypertension[ICD10: I10] Diagnosis: Diarrhea, unspecified[ICD10: R19.7] Meghana Maya MD, [facility] CPT- 4: 29016 09/10/2015 ([id number]) 27646 EST. P ATIENT, LEVEL III Diagnosis: Acute maxillary sinusitis, unspecified[ICD10: J01.00] Diagnosis: Myositis, unspecified[ICD10: M60.9] Meghana Maya MD, [facility] CPT- 4: 93336 08/12/2015 ([id number]) 38849 EST. P ATIENT, LEVEL IV Diagnosis: Essential (primary) hypertension[ICD10: I10] Diagnosis: Pain in left leg[ICD10: M79.605] Diagnosis: Other myositis, multiple sites[ICD10: M60.89] Diagnosis: Hypothyroidism, unspecified[ICD10: E03.9] Meghana Maya MD, [facility] CPT-4: 84254 08/04/2015 75533 EST. PATIENT, LEVEL III Diagnosis: Dyspnea, unspecified[ICD10: R06.00] Diagnosis: Essential (primary) hypertension[ICD10: I10] Meghana Maya MD, [facility] CPT-4: 58018 05/16/2015 ([id number]) 98417 EST. P ATIENT, LEVEL II Diagnosis: Dyspnea, unspecified[ICD10: R06.00] Meghana Maya MD, [facility] CPT- 4: 29923 05/12/2015 ([id number]) OFFICE [facility] LEVEL 4 Diagnosis: Essential (primary) hypertension[ICD10: I10] Diagnosis: Impaired fasting glucose[ICD10: R73.01] Diagnosis: Mixed hyperlipidemia[ICD10: E78.2] Diagnosis: Hypothyroidism, unspecified[ICD10: E03.9] Diagnosis: Encounter for screening mammogram for malignant neoplasm of breast[ICD10: Z12.31] Catie Maya MD, [facility] CPT-4: 67105 04/21/2015 Plan of Care Planned Activity Notes C odes Status Date Visit Plan: Hypertension - uncontro lled - the patient's medications have been modified as documented in the visit note. The patient has been counseled to cut back on salt in diet for a no added salt diet, low fat d iet, start an exercise program with low weight [...] directed otherwise. Check labs at regular intervals q 3 months or q 6 months bas ed on previous levels of control. 03/12/2019 Appointment: Britney Bower WPtel[facility] [address] [facility] (30 min) Complex 03/12/2019 Patient Education: Patient Medication Summary Completed 03/12/2019 Care Plan: Tsh Pending 03/12/2019 Care Plan: Free T4 Pending 03/12/2019 Appointment: Nurse Visit 01/22/2019 Patient Education: Patient Medication Summary Completed 01/22/2019 Appointment: Britney Bowertel: [facility] [address] [facility] (30 min) Complex 10/26/2018 Appointment: Britney Bower WPtel: [facility] [address] [facility] Nurse Visit 10/17/2018 Visit Plan: Hypertension - The melanie ent has been counseled to cut back on [...] pt is to call for acute concerns. Chronic kidney disease - will repeat labs and continue to monitor - pt has seen a clerk general in the 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 Hospital follow up - This was a follow up appointment from the patient's hospitalization during which time Dr. Maya formulated the assessment and plan for the follow up on this patient's medical condition. 10/12/2018 Appointment: Britney Bowertel: [address] [facility] (30 min) Complex 10/12/2018 Patient Education: Patient Medication Summary Completed 10/12/2018 Visit Plan: Hypokalemia - will send RX for potassium and monitor labs Interstitial lung disease - pt is to follow up with specialist and notify clinic with any changes in current treatment plan 09/13/2018 Appointment: [facility] ([facility] 09/13/2018 Patient Education: Patient Medication Summary Completed 09/13/2018 Visit Plan: Hypertension - well con trolled - continue with current medications, continue with [...] the current treatment plan 05/04/2018 Appointment: Brit[facility] (15 min) Moderate 05/04/2018 Patient Education: Patient Medication Summary Completed 05/04/2018 Patient Education: Cholesterol Management Completed 05/04/2018 Appointment: Lab Draw 02/23/2018 Visit Plan: Hypertension - well con trolled - continue with current medications, continue with [...] treatment plan 01/10/2018 Appointment: Britney Bower WPtel: [facility] [address] [facility] (30 min) Complex 01/10/2018 Patient Education: Patient Medication Summary Completed 01/10/2018 Patient Education: Obesity Completed 01/10/2018 Visit Plan: Hypertension - The melanie ent has been counseled to cut back on [...] of control. 12/06/2017 Appointment: Britney Bower WPtel: [facility] [address] [facility] (15 min) Moderate 12/06/2017 Patient Education: Patient Medication Summary Completed 12/06/2017 Visit Plan: URI - Pt advised to inc rease fluids, vitamin C. Discussed natural and expected course of this diagnosis and need to alert me if symptoms do not follow expected course, or if any worse. RX sent to patient's pharmacy. 06/22/2017 Appointment: Britney Bower WPtel: [facility] [address] [facility] (15 min) Moderate 06/22/2017 Patient Education: Patient Medication Summary Completed 06/22/2017 Visit Plan: URI - Pt advised to inc rease fluids, vitamin C. Discussed natural and expected [...] allergy spray. 03/02/2017 Appointment: Britney Bower WPtel: [address] [place] [address] (10 min) Simple 03/02/2017 Patient Education: Patient Medication Summary Completed 03/02/2017 Patient Education: Obesity Completed 03/02/2017 Visit Plan: Sinusitis - Pt has acut e infection - pain in face, maxillary region, Pt informed to use decongestant, RX given to patient, sinus rinses also recommended. Call if symptoms do not show improvement. Inters titial pulmonary disease, fatigue - will complete paperwork for pt to come fern picker - pt is to continue with her specialist at [facility] - Discussed with Dr. Maya - will increase clonidine to BID - pt is to consider referral to dermatology - notify clinic if symptoms do not improve, if they worsen, or with any other questions or concerns. 01/24/2017 Appointment: Britney Bower WPtel: [address] [place] [place] [id number] 01/24/2017 Patient Education: Patient Medication Summary Completed 01/24/2017 Visit Plan: URI - Pt advised to inc rease fluids, vitamin C. Discussed natural and expected [...] show improvement. 10/13/2016 Appointment: Britney Bower WPtel: [facility] [address] [facility] Complex 10/13/2016 Patient Education: Patient Medication Summary Completed 10/13/2016 Patient Education: Obesity Completed 10/13/2016 Visit Plan: Hypertension - well con trolled - continue with current medications, continue with no added salt diet. Pt has been encouraged to exercise daily. The pt has been advised to call the office if there are any acute concerns about change in blood pressure readings at home. 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 07/02/2016 Appointment: Britney Bower [phone] ([place]) Complex 07/02/2016 Patient Education: Patient Medication Summary Completed 07/02/2016 Visit Plan: Hypertension - uncontro lled - the patient's medications have been modified as documented in the visit note. The patient has been counseled to cut back on salt in diet for a no added salt diet, low fat d iet, start an exercise program with low weight [...] control. 06/24/2016 Appointment: Britney Bower [facility]el[phone] [place] ([place]) Complex 06/24/2016 Patient Education: Patient Medication Summary Completed 06/24/2016 Patient Education: Obesity Completed 06/24/2016 Patient Education: Hypertension Completed 06/24/2016 Patient Education: Patient Medication Summary Completed 05/14/2016 Care Plan: SCREENINGMAMMOGRAPHYDIGITAL LOINC : 89190-1 Pending 05/14/2016 Visit Plan: Hypertension - well con trolled - continue with current medications, continue with [...] months based on previous levels of control. L eft foot pain - capzasin cream to area on foot that is painful. 05/04/2016 Appointment: Meghana Maya [facility]el[phone] (15 min) Moderate 05/04/2016 Patient Education: Patient Medication Summary Completed 05/04/2016 Patient Education: Hypertension Completed 05/04/2016 Referral: Sharon Duran Patient infor med. Referral info faxed. Completed 04/13/2016 Visit Plan: Hypertension - uncontro lled - the patient's medications have been modified as documented in the visit note. The patient has been counseled to cut back on salt in diet for a no added salt diet, low fat d iet, start an exercise program with low weight [...] current medication. 04/06/2016 Appointment: Meghana Maya [facility]el[facility] [id number] [facility] [place] (15 min) Moderate 04/06/2016 Patient Education: Patient Medication Summary Completed 04/06/2016 Patient Education: Obesity Completed 04/06/2016 Care Plan: Referral Order SNOMED-CT : [id number] Pending 04/06/2016 Visit Plan: Edema-improved with low er dose of amlodipine Hypertension - uncontrolled - [...] acute concerns. 03/18/2016 Appointment: Catie Shoemaker WPtel[facility] [id number] [facility] [place] [place] (15 min) Moderate 03/18/2016 Patient Education: Patient Medication Summary Completed 03/18/2016 Patient Education: Obesity Completed 03/18/2016 Patient Education: Hypertension Completed 03/18/2016 Visit Plan: Hypertension - well con trolled - continue with current medications, continue with [...] xray left foot-recommend she follow up with [facility] consultant at regarding left foot pain/numbness/weakness. Patient has noticed worsening symptoms since decreasing prednisone. 03/11/2016 Appointment: Catie Shoemaker WPtel: [phone] [id number] (15 min) Moderate 03/11/2016 Patient Education: Patient Medication Summary Completed 03/11/2016 Patient Education: Obesity Completed 03/11/2016 Appointment: Catie Shoemaker WPtel: [phone] [id number] (30 min) Complex 03/09/2016 Visit Plan: Edema - pt has been adv ised to elevate legs to prevent dependent edema, compression has been recommended to help to naturally decrease peripheral edema. Diuretic use has been discussed and pt has been i nstructed in appropriate use of such medication as [...] 25mg daily 02/24/2016 Appointment: Catie Shoemaker WPtel: [facility] [id number] [phone] (15 min) Moderate 02/24/2016 Patient Education: Patient Medication Summary Completed 02/24/2016 Patient Education: Obesity Completed 02/24/2016 Patient Education: Hypertension Completed 02/24/2016 Appointment: Meghana Maya WPtel: [facility] [id number] [facility] (15 min) Moderate 02/23/2016 Visit Plan: Hypertension - well con trolled - continue with current medications, continue with [...] of control. 12/16/2015 Appointment: Meghana Maya WPtel: [phone] [place] ([place] min) Moderate 12/16/2015 Patient Education: Patient Medication Summary Completed 12/16/2015 Patient Education: Obesity Completed 12/16/2015 Visit Plan: Hypothyroidism - pt wit h chronic hypothyroidism, continue with current medication, will [...] home. 10/30/2015 Visit Plan: Hypothyroidism - pt wit h chronic hypothyroidism, continue with current medication, will [...] home. 10/30/2015 Visit Plan: Hypertension - well con trolled - continue with current medications, continue with [...] Complex 10/23/2015 Appointment: Meghana Maya WPtel: [phone] [facility] [place] [place] (15 min) Moderate 10/23/2015 Visit Plan: Hypertension - uncontro lled - the patient's medications have not been [...] bloody, or does not improve with above recomm endations. Pt to call for acute worsening of stomach upset or stomach pain. Hypertension - well controlled - continue with current medications, continue with no added salt diet. Pt has been encouraged to exercise daily. The pt has been advised to call the office if there are any acute concerns about change in blood pressure readings at home. 09/10/2015 Appointment: Meghana Maya WPtel: [phone] [facility] [place] [place] (15 min) Moderate 09/10/2015 Patient Education: Patient Medication Summary Completed 09/10/2015 Patient Education: Obesity Completed 09/10/2015 Patient Education: Hypertension Completed 09/10/2015 Visit Plan: Sinusitis - Pt has acut e infection - pain in face, maxillary region, Pt informed to use decongestant, RX given to patient, sinus rinses also recommended. Call if symptoms do not show improvement. 08/12/2015 Patient Education: Patient Medication Summary Completed 08/12/2015 Patient Education: Hypertension Completed 08/12/2015 Appointment: (30 min) Complex 08/05/2015 Visit Plan: Hypertension - well con trolled - continue with current medications, continue with [...] min) Complex 07/24/2015 Appointment: Meghana Maya WPtel: [facility] [id number] [facility] [place] [place] (15 min) Moderate 07/24/2015 Appointment: Lab Draw 05/27/2015 Visit Plan: Shortness of breath, fa tigue - VQ scan negative. 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 H yperlipidemia - pt has been counseled about appropriate [...] Completed 04/21/2015 Care Plan: SCREENINGMAMMOGRAPHYDIGITAL LOINC : 94529-4 Ordered 04/21/2015 Appointment: Meghana Maya WPtel: [phone] [facility] [place] [place] [place] (S[place] New Patient 04/01/2015 Referral: Sharon Duran Referral Appointment Requested Instructions Comment [phone] - fax f or our office increase losartan to 100mg daily . Hypertension - uncontrolled - the melanie ent's medications have been modified as documented in [...] directed otherwise. Check labs at regular intervals q 3 months or q 6 months based on previous levels of control. . Hypertension - wel l controlled - continue with current medications, continue [...] the current treatment plan . Hypertension - unc ontrolled - the patient's medications have not been changed due to acute illness causing the blood pressure to be elevated. Pt to continue with current antihypertensives and will monitor her blood pressures at home. Diarrhea - finish flagyl - start probiotic tid. . URI - Pt advised t o increase fluids, vitamin C. Discussed natural and [...] do not show improvement. . Hypertension - unc ontrolled - the patient's medications have been modified [...] previous levels of control. . Hypothyroidism - p t with chronic hypothyroidism, continue with current medication, [...] pressure readings at home. . Hypertension - wel l controlled - continue with current medications, continue [...] previous levels of control. Capzasin cream - tr y a small spot on the left foot- if not too irritating - then use on a larger area of skin across the top of both feet - wear gloves when applying . Hypertension - well controlled - taylor nue with current medications, continue with no added [...] foot that is painful. DX sinusitis - discu ssed expected course with the patient, pt advised to call for worsening symptoms, or lack of improvement on prescribed treatment course. . Sinusitis - Pt has acute infection - p ain in face, maxillary region, Pt informed to use decongestant, RX given to patient, sinus rinses also recommended. Call if symptoms do not show improvement. . Hypertension - wel l controlled - continue with current medications, continue [...] any changes in the current treatment plan elviaalog today. URI - Pt advised to increase fluids, vitamin C. Discussed natural and expected course of this diagnosis and need to alert me if symptoms do not follow expected course, or if any worse. RX sent to patient's pharmacy. . Left shoulder/thor acic back pain - will send RX - [...] be considered contagious. DR. CROUCH IS THE P ODIATRIST WHO SPECIALIZES IN FOOT AND ANKLE DISEASE AT [address] INCREASE THE METOPROLOL TO 1.5 PILLS DAILY. . Hypertension - uncontrolled - the melanie ent's medications have been modified as documented in [...] continue with current medication. . 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 Hypokalemia - will send RX for potassium and monitor labs Interstitial lung disease - pt is to follow up with specialist and notify clinic with any changes in current treatment plan Co-Enzyme Q10 - take daily x 2 weeks STOP the simvastatin - this may be augmenting the muscle weakness and aching . Hypertension - well controlled - taylor nue with current medications, continue with no added [...] previous levels of control. . Hypertension - The patient has been [...] pt is to call for acute concerns. Chronic kidney disease - will repeat labs and continue to monitor - pt has seen a clerk general in the 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 Hospital follow up - This was a follow up appointment from the patient's hospitalization during which time Dr. Maya formulated the assessment and plan for the follow up on this patient's medical condition. 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 Maya - will increase clonidine to BID - pt is to consider referral to dermatology - notify clinic if symptoms do not improve, if they worsen, or with any other questions or concerns. INCREASE METOPROLOL TO 50MG DAILY . Edema-improved with lower dose of amlo dipine Hypertension - uncontrolled - the patient's medications [...] acute concerns. . URI - Pt advised t o increase fluids, vitamin C. Discussed natural and [...] nasal steroid allergy spray. . Shortness of breat h, fatigue - VQ scan negative. Resting O2 [...] FOOT . Hypertension - well controlled - taylor nue with current medications, continue with no added [...] xray left foot-recommend she follow up with [employer] [facility] consultant at regarding left foot pain/numbness/weakness. Patient has noticed worsening symptoms since decreasing prednisone. HgbA1C today- daily prednisone for the past 2 years . Hypertension - well controlled - taylor nue with current medications, continue with no added salt diet. Pt has been encouraged to exercise daily. The pt has been advised to call the office if there are any acute concerns about change in blood pressure readings at home. 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 Hypothyroidism - p t with chronic hypothyroidism, continue with current medication, [...] pressure readings at home. . Hypertension - wel l controlled - continue with current medications, continue with no added salt diet. Pt has been encouraged to exercise daily. The pt has been advised to call the office if there are any acute concerns about change in blood pressure readings at home. Plan: ([id number]) SCREEN INGMAMMOGRAPHYDIGITAL . Hypertension - well controlled - taylor nue with current medications, continue with no added [...]
--- OUTSIDE RECORDS SUMMARY | 2019-08-14 06:09 | XMS REPORT | CCD ---
Author Author Carolann Shoemaker Organization Meghana Maya MD, [facility] Address [facility] [place] [address] Phone Care Team Providers Care Polish Maker Name Role Phone PP Unavailable CCM Unavailable Summary Purpose Interface Exchange Family history Mother Diagnosis Age At Onset Hypertension Unknown Breast cancer Unknown Osteoporosis Unknown Father Diagnosis Age At Onset kidney disease Unknown Cancer Unknown Hyperlipidemia Unknown Social History Social History Element Codes Description Effective Dates Marital status Unknown D ivorced 04/21/2015 Number of children Unknown 1 04/21/2015 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/[address]: 750859697 Never smoker 04/21/2015 Alcohol history Unknown occasionally drinks alcohol 04/21/2015 Allergies, Adverse Reactions, Alerts Substance Reaction Codes Entered Date Inactivated Date Status [id number] REDU CTASE INHIBITORS myalgias Unknown 016 No [...] Fill Instructions levothyroxine 25 mcg tablet RxNorm: 187007 1 Tablet(s) PO QAM 03/13/2019 07/10/2019 Active levothyroxine 25 mcg tablet RxNorm: 831797 1 Tablet(s) PO QAM 03/13/2019 03/12/2019 Inactive losartan 50 mg tablet RxNorm: 875651 1 Tablet(s) PO daily 02/06/2019 06/05/2019 Active oxybutynin chloride 5 mg tablet RxNorm: 759889 Tablet(s) TAKE ONE-ANGEL LF TABLET BY MOUTH DAILY 02/06/2019 06/05/2019 Active metoprolol succinate ER 50 mg tablet,extended release 24 hr RxNorm: 304172 1 Tablet(s) PO BID 02/06/2019 06/05/2019 Active oxybutynin chloride 5 mg tablet RxNorm: 902963 TAKE ONE-HALF TABLET BY MOUTH DAILY 01/30/2019 02/05/2019 In active metoprolol succinate ER 100 mg tablet,extended release 24 hr RxNorm: 352475 1 Tablet(s) PO daily 01/22/2019 01/21/2019 Inactive metoprolol succinate ER 50 mg tablet,extended release 24 hr RxNorm: 560543 1 Tablet(s) PO daily 01/22/2019 02/05/2019 Inactive metoprolol succinate ER 100 mg tablet,extended release 24 hr RxNorm: 283470 1 Tablet(s) PO daily 01/22/2019 01/22/2019 Inactive oxybutynin chloride 5 mg tablet RxNorm: 951347 1/2 Tablet(s) PO hari y 01/04/2019 01/29/2019 In active oxybutynin chloride 5 mg tablet RxNorm: 010228 1/2 Tablet(s) PO hari y 01/04/2019 01/03/2019 In active Lipitor 20 mg tablet RxNorm: 805276 TAKE ONE TABLET BY MOUTH DAILY 12/04/2018 06/01/2019 Ac tive venlafaxine ER 150 m g capsule,extended release 24 hr RxNorm: 427761 TAKE ONE CAPSULE BY MOUTH DAILY 12/04/2018 06/01/2019 Active losartan 25 mg tablet RxNorm: 485368 TAKE ONE TABLET BY MOUTH DAILY 12/04/2018 01/24/2019 In active nystatin 100,000 uni t/mL oral suspension RxNorm: 888755 4 Unit(s) PO QID 10/17/2018 10/23/2018 In active nystatin 100,000 uni t/mL oral suspension RxNorm: 217980 4 Unit(s) PO QID 10/17/2018 10/16/2018 In active metoprolol succinate ER 50 mg tablet,extended release 24 hr RxNorm: 042319 1 Tablet(s) PO daily 10/17/2018 01/19/2019 Inactive potassium chloride E R 10 mEq tablet,extended release RxNorm: 921092 Tablet(s) TAKE ONE TABLET BY MOUTH DAILY 09/15/2018 03/13/2019 Inactive candesartan 4 mg tablet RxNorm: 852194 1 Tablet(s) PO daily 09/15/2018 10/14/2018 Inactive clonidine HCl 0.1 mg tablet RxNorm: 532492 TAKE ONE TABLET BY [facility] TWICE A DAY 09/14/2018 02/10/2019 In active losartan 25 mg tablet RxNorm: 978443 TAKE ONE TABLET BY MOUTH DAILY 09/14/2018 11/12/2018 In active clonidine HCl 0.1 mg tablet RxNorm: 607496 Tablet(s) TAKE ONE TA BLET BY MOUTH AT BEDTIME 09/13/2018 No Stop Date Active venlafaxine ER 150 m g capsule,extended release 24 hr RxNorm: 874422 TAKE ONE CAPSULE BY MOUTH DAILY 05/15/2018 11/10/2018 Inactive Lipitor 20 mg tablet RxNorm: 256194 TAKE ONE TABLET BY MOUTH DAILY 05/15/2018 11/10/2018 In active losartan 25 mg tablet RxNorm: 058983 TAKE ONE TABLET BY MOUTH DAILY 04/17/2018 07/14/2018 In active losartan 25 mg tablet RxNorm: 225448 TAKE ONE TABLET BY MOUTH DAILY 04/17/2018 04/16/2018 In active Lipitor 20 mg tablet RxNorm: 833576 1 Tablet(s) PO daily 01/12/2018 01/11/2018 Inactive Lipitor 20 mg tablet RxNorm: 075439 1 Tablet(s) PO daily 01/12/2018 05/11/2018 Inactive clonidine HCl 0.1 mg tablet RxNorm: 494068 TAKE ONE TABLET BY [facility] TWICE A DAY 01/04/2018 07/02/2018 In active potassium chloride E R 10 mEq tablet,extended release RxNorm: 304355 TAKE ONE TABLET BY MOUTH DAILY 01/04/2018 09/12/2018 Inactive losartan 25 mg tablet RxNorm: 455586 TAKE ONE TABLET BY MOUTH DAILY 01/03/2018 04/02/2018 In active levothyroxine 50 mcg tablet RxNorm: 585718 1 Tablet(s) PO daily 12/08/2017 09/12/2018 Inactive losartan 25 mg tablet RxNorm: 618231 1 Tablet(s) PO daily 12/06/2017 01/02/2018 Inactive venlafaxine ER 150 m g capsule,extended release 24 hr RxNorm: 451971 TAKE ONE CAPSULE BY MOUTH DAILY 12/06/2017 05/04/2018 Inactive metoprolol succinate ER 50 mg tablet,extended release 24 hr RxNorm: 034790 TAKE ONE TABLET BY MOUTH DAILY 08/29/2017 01/25/2018 Inactive metoprolol succinate ER 50 mg tablet,extended release 24 hr RxNorm: 172571 TAKE ONE TABLET BY MOUTH DAILY 08/29/2017 08/28/2017 Inactive metoprolol succinate ER 50 mg tablet,extended release 24 hr RxNorm: 410243 TAKE ONE TABLET BY MOUTH DAILY 08/29/2017 08/28/2017 Inactive Tamiflu 75 mg capsule RxNorm: 262875 1 Capsule(s) PO BID 06/22/2017 06/26/2017 Inactive Kenalog 40 mg/mL jenna pension for injection RxNorm: 4392093 1.5 Milliliter(s) In j 06/22/2017 06/22/2017 In active clonidine HCl 0.1 mg tablet RxNorm: 461965 TAKE ONE TABLET BY [facility] TWICE A DAY 06/06/2017 12/02/2017 In active potassium chloride E R 10 mEq tablet,extended release RxNorm: 436785 TAKE ONE TABLET BY MOUTH DAILY 06/06/2017 12/02/2017 Inactive venlafaxine ER 150 m g capsule,extended release 24 hr RxNorm: 441965 TAKE ONE CAPSULE BY MOUTH DAILY 05/23/2017 11/18/2017 Inactive Zithromax 500 mg tablet RxNorm: 368566 1 Tablet(s) PO daily 05/18/2017 05/22/2017 Inactive potassium chloride E R 10 mEq tablet,extended release RxNorm: 883212 TAKE ONE TABLET BY MOUTH DAILY 04/21/2017 05/20/2017 Inactive potassium chloride E R 10 mEq tablet,extended release RxNorm: 636538 TAKE ONE TABLET BY MOUTH DAILY 03/16/2017 04/14/2017 Inactive Zithromax Z-Jacek 250 mg tablet RxNorm: 689937 1 Tablet(s) PO UD 03/02/2017 06/21/2017 Inactive venlafaxine ER 150 m g capsule,extended release 24 hr RxNorm: 665487 Capsule(s) TAKE ONE CAPSULE BY MOUTH DAILY 02/17/2017 02/16/2017 Inactive venlafaxine ER 150 m g capsule,extended release 24 hr RxNorm: 051504 TAKE ONE CAPSULE BY MOUTH DAILY 02/17/2017 05/14/2018 Inactive clonidine HCl 0.1 mg tablet RxNorm: 855581 TAKE ONE TABLET BY [facility] EVERY NIGHT AT BEDTIME 02/14/2017 01/03/2018 Inactive metoprolol succinate ER 50 mg tablet,extended release 24 hr RxNorm: 667571 TAKE ONE TABLET BY MOUTH DAILY 02/14/2017 08/12/2017 Inactive Protonix 40 mg table t,delayed release RxNorm: 046588 TAKE ONE TABLET BY [facility] DAILY WHILE ON PREDNISONE 01/25/2017 09/12/2018 Inactive Zithromax Z-Jacek 250 mg tablet RxNorm: 800778 1 Tablet(s) PO UD 01/24/2017 01/03/2018 Inactive potassium chloride E R 10 mEq tablet,extended release RxNorm: 409979 TAKE ONE TABLET BY MOUTH DAILY 01/17/2017 03/15/2017 Inactive clonidine HCl 0.1 mg tablet RxNorm: 298433 TAKE ONE TABLET BY [facility] EVERY NIGHT AT BEDTIME 01/17/2017 02/13/2017 Inactive potassium chloride E R 10 mEq tablet,extended release RxNorm: 043988 TAKE ONE TABLET BY MOUTH DAILY 12/16/2016 01/14/2017 Inactive venlafaxine ER 150 m g capsule,extended release 24 hr RxNorm: 826225 TAKE ONE CAPSULE BY MOUTH DAILY 11/18/2016 02/15/2017 Inactive clonidine HCl 0.1 mg tablet RxNorm: 379224 TAKE ONE TABLET BY [place] [facility] EVERY NIGHT AT BEDTIME 11/08/2016 01/06/2017 Inactive clonidine HCl 0.1 mg tablet RxNorm: 661949 1 Tablet(s) BID 10/19/2016 01/16/2017 Inactive potassium chloride E R 10 mEq tablet,extended release RxNorm: 166559 TAKE ONE TABLET BY MOUTH DAILY 10/15/2016 11/13/2016 Inactive Zithromax Z-Ajcek 250 mg tablet RxNorm: 625866 1 Tablet(s) PO UD 10/13/2016 01/03/2018 Inactive potassium chloride E R 10 mEq tablet,extended release RxNorm: 742091 TAKE ONE TABLET BY MOUTH DAILY 10/12/2016 10/14/2016 Inactive potassium chloride E R 10 mEq tablet,extended release RxNorm: 090005 Tablet(s) BID TAKE ONE TABLET BY MOUTH TWICE DAILY 09/17/2016 10/11/2016 Inactive potassium chloride E R 10 mEq tablet,extended release RxNorm: 123762 TAKE ONE TABLET BY MOUTH DAILY 09/13/2016 09/16/2016 Inactive clonidine HCl 0.1 mg tablet RxNorm: 654432 Tablet(s) TAKE ONE TA BLET BY MOUTH EVERY NIGHT AT BEDTIME 08/12/2016 10/18/2016 Inactive gabapentin 300 mg ca psule RxNorm: 456116 1 Capsule(s) PO Q 08/10/2016 No Stop Date Active venlafaxine ER 150 m g capsule,extended release 24 hr RxNorm: 781044 TAKE ONE CAPSULE BY MOUTH DAILY 08/09/2016 11/06/2016 Inactive metoprolol succinate ER 50 mg tablet,extended release 24 hr RxNorm: 971312 TAKE ONE TABLET BY MOUTH DAILY 07/29/2016 01/24/2017 Inactive clonidine HCl 0.1 mg tablet RxNorm: 345963 TAKE ONE TABLET BY [facility] EVERY NIGHT AT BEDTIME 07/21/2016 08/11/2016 Inactive potassium chloride E R 10 mEq tablet,extended release RxNorm: 539414 TAKE ONE TABLET BY MOUTH DAILY 07/14/2016 09/11/2016 Inactive Prescriber not associated w ith this practice or location acyclovir 400 mg tablet RxNorm: 484227 2 Tablet(s) PO QID 07/02/2016 07/11/2016 Inactive cyclobenzaprine 5 mg tablet RxNorm: 365651 1-2 Tablet(s) PO TID as needed 07/02/2016 07/06/2016 In active capsaicin 0.1 % topi reagan cream RxNorm: 812877 1 Application TOP TID as needed 07/02/2016 09/12/2018 In active Protonix 40 mg table t,delayed release RxNorm: 911452 TAKE ONE TABLET BY [facility] DAILY WHILE ON PREDNISONE 06/29/2016 12/25/2016 Inactive clonidine HCl 0.1 mg tablet RxNorm: 791124 1 Tablet(s) PO QHS 06/25/2016 07/20/2016 Inactive calcium carbonate 50 0 mg calcium (1,250 mg) tablet RxNorm: 946895 TAKE ONE TABLET BY MOUTH DAILY WHILE ON PREDNISONE. MAY STOP TAKING WHEN PREDNISONE IS COMPLETE 06/01/2016 09/12/2018 In active Vitamin D3 1,000 uni t tablet RxNorm: 680000 1 Tablet(s) PO daily . May stop taking once prednisone is complete. 04/26/2016 09/12/2018 Inactive metoprolol succinate ER 50 mg tablet,extended release 24 hr RxNorm: 556723 1.5 Tablet(s) PO daily 04/06/2016 06/23/2016 Inactive prednisone 10 mg tablet RxNorm: 696066 1 Tablet(s) PO daily 04/02/2016 06/21/2017 Inactive metoprolol succinate ER 50 mg tablet,extended release 24 hr RxNorm: 122759 1 Tablet(s) PO daily 03/18/2016 04/05/2016 Inactive amlodipine 10 mg tablet RxNorm: 045257 1/2 Tablet(s) PO daily 02/24/2016 06/21/2016 Inactive metoprolol succinate ER 25 mg tablet,extended release 24 hr RxNorm: 435493 1 Tablet(s) PO daily 02/24/2016 03/16/2016 Inactive calcium carbonate 50 0 mg calcium (1,250 mg) tablet RxNorm: 441631 TAKE ONE TABLET BY MOUTH DAILY WHILE ON PREDNISONE. MAY STOP TAKING WHEN PREDNISONE IS COMPLETE 02/16/2016 05/15/2016 In active Protonix 40 mg table t,delayed release RxNorm: 424746 TAKE ONE TABLET BY [facility] DAILY WHILE ON PREDNISONE 02/10/2016 05/09/2016 Inactive venlafaxine ER 150 m g capsule,extended release 24 hr RxNorm: 585566 Capsule(s) TAKE ONE CAPSULE BY MOUTH DAILY 12/10/2015 04/07/2016 Inactive calcium carbonate 50 0 mg calcium (1,250 mg) tablet RxNorm: 740566 1 Tablet(s) PO daily 12/01/2015 01/29/2016 Inactive Vitamin D3 1,000 uni t tablet RxNorm: 475249 1 Tablet(s) PO daily 12/01/2015 03/29/2016 Inactive levothyroxine 50 mcg tablet RxNorm: 907272 1 Tablet(s) PO daily 12/01/2015 11/24/2016 Inactive amlodipine 10 mg tablet RxNorm: 433287 1 Tablet(s) PO daily 11/19/2015 11/18/2015 Inactive amlodipine 10 mg tablet RxNorm: 117411 1 Tablet(s) PO daily 11/19/2015 02/23/2016 Inactive amlodipine 5 mg tablet RxNorm: 934123 1 Tablet(s) PO daily 11/17/2015 11/18/2015 Inactive venlafaxine ER 150 m g capsule,extended release 24 hr RxNorm: 185635 TAKE ONE CAPSULE BY MOUTH DAILY 11/13/2015 12/09/2015 Inactive Protonix 40 mg table t,delayed release RxNorm: 201781 1 Tablet(s) PO daily while on prednisone 2015 02/09/2016 Inactive prednisone 10 mg tablet RxNorm: 147342 2 Tablet(s) PO UD 10/30/2015 04/01/2016 Inactive 60mg for 2 days, then 50mg for 2 days, then 40mg for 2 days, then 30mg for 2 days, then 20mg for 2 days, then 10mg for 2 days, then 5mg for 2 days potassium chloride E R 10 mEq tablet,extended release RxNorm: 634847 TAKE ONE TABLET BY MOUTH DAILY 09/22/2015 12/19/2015 Inactive venlafaxine ER 150 m g capsule,extended release 24 hr RxNorm: 790409 TAKE ONE CAPSULE BY MOUTH DAILY 09/08/2015 11/06/2015 Inactive cefdinir 300 mg capsule RxNorm: 679367 1 Capsule(s) PO BID 08/20/2015 08/22/2015 Inactive cefdinir 300 mg capsule RxNorm: 280924 1 Capsule(s) PO BID 08/12/2015 08/18/2015 Inactive Kenalog 40 mg/mL jenna pension for injection RxNorm: 5388211 1 Milliliter(s) Inj 08/04/2015 08/04/2015 In active triamterene 37.5 mg- hydrochlorothiazide 25 mg tablet RxNorm: 603909 1 Tablet(s) PO BID 06/17/2015 08/03/2015 Inactive potassium chloride E R 10 mEq tablet,extended release RxNorm: 338529 1 Tablet(s) PO daily 05/30/2015 08/03/2015 Inactive Levaquin 250 mg tablet RxNorm: 485003 Tablet(s) PO UD 500 mg day one, then 250 mg day 2-7 05/27/2015 08/03/2015 Inactive prednisone 10 mg tablet RxNorm: 762666 Tablet(s) PO UD 05/27/2015 10/29/2015 Inactive 60mg for 2 days, then 50mg for 2 days, then 40mg for 2 days, then 30mg for 2 days, then 20mg for 2 days, then 10mg for 2 days, then 5mg for 2 days albuterol sulfate 1. 25 mg/3 mL solution for nebulization RxNorm: 246086 3 Milliliter(s) INH Q4-6H as needed dyspnea 05/23/2015 09/12/2018 Inactive Zithromax 500 mg tablet RxNorm: 921392 1 Tablet(s) PO daily 05/16/2015 05/15/2015 Inactive Zithromax 500 mg tablet RxNorm: 219309 1 Tablet(s) PO daily 05/16/2015 05/20/2015 Inactive prednisone 20 mg tablet RxNorm: 203989 3 Tablet(s) PO daily 05/12/2015 05/16/2015 Inactive venlafaxine ER 150 m g capsule,extended release 24 hr RxNorm: 604917 TAKE ONE CAPSULE BY MOUTH DAILY 05/12/2015 08/09/2015 Inactive Keflex 500 mg capsule RxNorm: 671675 1 Capsule(s) PO TID 05/12/2015 05/18/2015 Inactive simvastatin 20 mg ta blet RxNorm: 555664 1 Tablet(s) PO daily 04/10/2015 04/09/2015 Inactive simvastatin 20 mg ta blet RxNorm: 795086 1 Tablet(s) PO daily 04/10/2015 08/11/2015 Inactive venlafaxine ER 150 m g capsule,extended release 24 hr RxNorm: 701042 TAKE ONE CAPSULE BY MOUTH DAILY 04/08/2015 05/07/2015 Inactive amlodipine 5 mg tablet RxNorm: 234196 1 Tablet(s) PO daily 03/07/2015 03/06/2015 Inactive amlodipine 5 mg tablet RxNorm: 506906 1 Tablet(s) PO daily 03/07/2015 07/04/2015 Inactive venlafaxine ER 150 m g capsule,extended release 24 hr RxNorm: 325572 1 Capsule(s) PO daily 01/29/2015 03/29/2015 Inactive Co Q-10 oral RxNorm: 30308 oral No Start Date Active gabapentin 100 mg ca psule RxNorm: 513340 1 Capsule(s) PO QAM No Start Date Active albuterol sulfate 1. 25 mg/3 mL solution for nebulization RxNorm: 050523 3 Milliliter(s) INH Q4-6H as needed dyspnea No Start Date 05/22/2015 Inactive levothyroxine 50 mcg tablet RxNorm: 434965 1 Tablet(s) PO daily No Start Date 11/30/2015 Inactive metoprolol succinate ER 50 mg tablet,extended release 24 hr RxNorm: 539819 1 Tablet(s) PO daily No Start Date 09/12/2018 Inactive gabapentin 300 mg ca psule RxNorm: 345984 1 Capsule(s) PO QHS No Start Date 08/09/2016 Inactive vitamin B complex oral RxNorm: 13992 oral No Start Date 09/12/2018 Inactive Vitamin D3 1,000 uni t tablet RxNorm: 571391 1 Tablet(s) PO daily No Start Date 11/30/2015 Inactive Protonix 40 mg table t,delayed release RxNorm: 903437 1 Tablet(s) PO daily while on prednisone No Start Date 10/30/2015 Inactive calcium carbonate oral RxNorm: oral No Start Date 11/30/2015 Inactive potassium chloride E R 10 mEq tablet,extended release RxNorm: 530416 1 Tablet(s) PO daily No Start Date 05/29/2015 Inactive Levaquin 250 mg tablet RxNorm: 704497 Tablet(s) PO UD 500 mg day one, then 250 mg day 2-7 No Start Date 05/26/2015 Inactive triamterene 37.5 mg- hydrochlorothiazide 25 mg tablet RxNorm: 871079 1 Tablet(s) PO BID No Start Date 06/16/2015 Inactive prednisone 10 mg tablet RxNorm: 071751 Tablet(s) PO UD No Start Date 05/26/2015 Inactive 60mg for 2 days, then 50mg for 2 days, then 40mg for 2 days, then 30mg for 2 days, then 20mg for 2 days, then 10mg for 2 days, then 5mg for 2 days venlafaxine ER 150 m g capsule,extended release 24 hr RxNorm: 806330 1 Capsule(s) PO daily No Start Date 01/28/2015 Inactive Medication Administered Medication Codes Instruc tions Start Date Status Kenalog 40 mg/mL suspension for injection RxNorm: 3829549 1.5Milliliter 06/22/2017 No longer Active Kenalog 40 mg/mL suspension for injection RxNorm: 9260408 1Milliliter 08/04/2015 N o longer Active Immunizations [...] (3rd IS) 4.82 uIU/mL 03/12/2019 Free T4 Zyf378 FREE T4 0.55 ng/dL 03/12/2019 Comp Metabolic Lxp879 NA 142 mEq/L 10/12/2018 Comp Metabolic Tqs707 K 4.0 mEq/L 10/12/2018 Comp Metabolic Gfz613 CL 105 mEq/L 10/12/2018 Comp Metabolic Iji880 CO2 21.0 mEq/L 10/12/2018 Comp Metabolic Mgc176 AN ION GAP 20 10/12/2018 Comp Metabolic Axn488 GL UCOSE 105 mg/dL 10/12/2018 Comp Metabolic Ehg609 Cr eat 1.8 mg/dL 10/12/2018 Comp Metabolic Vhk785 eG FR 30 ml/min/1.73m2 10/12 Comp Metabolic Ijo597 BUN 19 mg/dL 10/12/2018 Comp Metabolic Zpl410 B/ C Ratio 10.5 Ratio 10/12/2018 Comp Metabolic Xnn361 CA LCIUM 9.0 mg/dL 10/12/2018 Comp Metabolic Aia474 AL K PHOS 74 U/L 10/12/2018 Comp Metabolic Riv705 T(SGOT) 21 U/L 10/12/2018 Comp Metabolic Mbn088 AL T(SGPT) 22 U/L 10/12/2018 Comp Metabolic Zwh606 BI LI T 0.4 mg/dL 10/12/2018 Comp Metabolic Ifw034 AL BUMIN 3.9 g/dL 10/12/2018 Comp Metabolic Ywc243 TP RO 6.1 g/dL 10/12/2018 Comp Metabolic Ymd488 GL OB 2.2 g/dL 10/12/2018 Comp Metabolic Wfe580 A/ G Ratio 1.7 Ratio 10/12/2018 Comp Metabolic Ded212 Os mo 286 mOsmo 10/12/2018 Cbc With [...] 28.0 pg 10/12/2018 Cbc With Differential Ord2 [place]% 16.6 % 10/12/2018 Cbc With Differential Ord2 [...] 1.77 K/ul 10/12/2018 Cbc With Differential Ord2 [place] ABS# 2.4 K/ul 10/12/2018 Cbc With Differential Ord2 Eos ABS# 0.0 K/ul 10/12/2018 Cbc With Differential Ord2 Baso ABS# 0.0 K/ul 10/12/2018 Electrolytes Ord62 NA 140 mEq/L 09/15/2018 Electrolytes Ord62 K 4.2 mEq/L 09/15/2018 Electrolytes Ord62 CL 111 mEq/L 09/15/2018 Electrolytes Ord62 CO2 20.0 mEq/L 09/15/2018 Electrolytes Ord62 ANION GAP 13 09/15/2018 Comp Metabolic Acy936 NA 140 mEq/L 01/10/2018 Comp Metabolic Vcc524 K 3.8 mEq/L 01/10/2018 Comp Metabolic Sff364 CL 106 mEq/L 01/10/2018 Comp Metabolic Nyh745 CO2 25.0 mEq/L 01/10/2018 Comp Metabolic Qwq355 AN ION GAP 13 01/10/2018 Comp Metabolic Nje490 GL UCOSE 110 mg/dL 01/10/2018 Comp Metabolic Gue120 Cr eat 1.5 mg/dL 01/10/2018 Comp Metabolic Yct337 eG FR 37 ml/min/1.73m2 01/10 Comp Metabolic Ppf237 BUN 23 mg/dL 01/10/2018 Comp Metabolic Jcw741 B/ C Ratio 15.3 Ratio 01/10/2018 Comp Metabolic Rtu946 CA LCIUM 9.2 mg/dL 01/10/2018 Comp Metabolic Qut003 AL K PHOS 87 U/L 01/10/2018 Comp Metabolic Psy227 T(SGOT) 15 U/L 01/10/2018 Comp Metabolic Zis654 AL T(SGPT) 9 U/L 01/10/2018 Comp Metabolic Ztc287 BI LI T 0.4 mg/dL 01/10/2018 Comp Metabolic Rwx343 AL BUMIN 3.8 g/dL 01/10/2018 Comp Metabolic Hpz445 TP RO 6.2 g/dL 01/10/2018 Comp Metabolic Xok093 GL OB 2.4 g/dL 01/10/2018 Comp Metabolic Tii370 A/ G Ratio 1.6 Ratio 01/10/2018 Comp Metabolic Ity456 Os mo 284 mOsmo 01/10/2018 C-Reactive Protein [...] 27.6 pg 01/10/2018 Cbc With Differential Ord2 [place]% 15.2 % 01/10/2018 Cbc With Differential Ord2 [...] 1.47 K/ul 01/10/2018 Cbc With Differential Ord2 [place] ABS# 1.0 K/ul 01/10/2018 Cbc With Differential Ord2 Eos ABS# 0.1 K/ul 01/10/2018 Cbc With Differential Ord2 Baso ABS# 0.0 K/ul 01/10/2018 Sed Rate Ord21 ESR 12 mm/hr 01/10/2018 Free T4 Ich253 FREE T4 0.57 ng/dL 12/06/2017 Tsh Ord6 TSH (3rd IS) 7.40 uIU/mL 12/06/2017 C A/B FLU [id number] Influe nza A Scr Negative 06/22/2017 C A/B FLU [id number] Influe nza B Scr Negative 06/22/2017 C A/B FLU [id number] Influe nza Intrp B AG:PRID:PT:NOSE:NOM:IF See Footnote 06/22/2017 Comp Metabolic Sed372 NA 140 mEq/L 08/30/2016 Comp Metabolic Vgn164 K 3.3 mEq/L 08/30/2016 Comp Metabolic Qpt968 CL 104 mEq/L 08/30/2016 Comp Metabolic Soy617 CO2 26.0 mEq/L 08/30/2016 Comp Metabolic Tgj584 AN ION GAP 13 08/30/2016 Comp Metabolic Huj647 GL UCOSE 143 mg/dL 08/30/2016 Comp Metabolic Igh978 Cr eat 1.3 mg/dL 08/30/2016 Comp Metabolic Tlc713 eG FR 43 ml/min/1.73m2 08/30 Comp Metabolic Yyx954 BUN 19 mg/dL 08/30/2016 Comp Metabolic Uyt538 B/ C Ratio 14.3 Ratio 08/30/2016 Comp Metabolic Kpk738 CA LCIUM 10.0 mg/dL 08/30/2016 Comp Metabolic Alj844 AL K PHOS 67 U/L 08/30/2016 Comp Metabolic Jkm648 T(SGOT) 28 U/L 08/30/2016 Comp Metabolic Lde583 AL T(SGPT) 43 U/L 08/30/2016 Comp Metabolic Dbb918 BI LI T 0.4 mg/dL 08/30/2016 Comp Metabolic Kfm955 AL BUMIN 4.0 g/dL 08/30/2016 Comp Metabolic Vwz760 TP RO 6.2 g/dL 08/30/2016 Comp Metabolic Lni485 GL OB 2.2 g/dL 08/30/2016 Comp Metabolic Yso779 A/ G Ratio 1.8 Ratio 08/30/2016 Comp Metabolic Qdh938 Os mo 284 mOsmo 08/30/2016 %Hba1C Dyl729 % HbA1c 84449-3 6.1 % 08/30/2016 %Hba1C Pxt264 Gluc Ave 128 mg/dL 08/30/2016 Free T4 Qqh481 FREE T4 0.75 ng/dL 06/25/2016 Tsh Ord6 [...] Ord90 Mag 2.1 mg/dL 12/16/2015 Free T4 Zic701 FREE T4 0.92 ng/dL 12/16/2015 Tsh Ord6 [...] 28.5 pg 08/04/2015 Cbc With Differential Ord2 [place]% 6.1 % 08/04/2015 Cbc With Differential Ord2 [...] 0.73 K/ul 08/04/2015 Cbc With Differential Ord2 [place] ABS# 0.5 K/ul 08/04/2015 Cbc With Differential Ord2 Eos ABS# 0.1 K/ul 08/04/2015 Cbc With Differential Ord2 Baso ABS# 0.0 K/ul 08/04/2015 Cbc With Differential Ord2 New Analyzer Notice Please note new ref ranges s tarting 07-09-2015 due to implemntation of new five part differential hematolgy analyzer. 08/04/2015 C-Reactive Protein Qnt Crqnt CRP 0.8 mg/dl 08/04/2015 Comp Metabolic Cnm695 NA 139 mEq/L 08/04/2015 Comp Metabolic Nek222 K 3.4 mEq/L 08/04/2015 Comp Metabolic Yye304 CL 109 mEq/L 08/04/2015 Comp Metabolic Bqc300 CO2 22.0 mEq/L 08/04/2015 Comp Metabolic Ima523 AN ION GAP 11 08/04/2015 Comp Metabolic Ers780 GL UCOSE 177 mg/dL 08/04/2015 Comp Metabolic Rgz574 Cr eat 1.0 mg/dL 08/04/2015 Comp Metabolic Olc508 eG FR 64 ml/min/1.73m2 08/04 Comp Metabolic Mzc262 BUN 35 mg/dL 08/04/2015 Comp Metabolic Hcw798 B/ C Ratio 36.8 Ratio 08/04/2015 Comp Metabolic Qvp104 CA LCIUM 8.5 mg/dL 08/04/2015 Comp Metabolic Uhq757 AL K PHOS 57 U/L 08/04/2015 Comp Metabolic Gpb723 T(SGOT) 21 U/L 08/04/2015 Comp Metabolic Xte733 AL T(SGPT) 63 U/L 08/04/2015 Comp Metabolic Iln968 BI LI T 0.3 mg/dL 08/04/2015 Comp Metabolic Mlg180 AL BUMIN 3.1 g/dL 08/04/2015 Comp Metabolic Kwj432 TP RO 5.1 g/dL 08/04/2015 Comp Metabolic Qiw156 GL OB 2.0 g/dL 08/04/2015 Comp Metabolic Hbg413 A/ G Ratio 1.6 Ratio 08/04/2015 Comp Metabolic Yfm189 Os mo 290 mOsmo 08/04/2015 Cpk Ord61 CPK 52 U/L 08/04/2015 Random Urine Protein/Creatinine Ratio Vtk6413 U Prot 8.5 mg/dl 05/27/2015 Random Urine Protein/Creatinine Ratio Don2135 U CREAT 201.0 mg/dL 05/27/2015 Random Urine Protein/Creatinine Ratio Qlr0865 R MTP/Creat Ratio 0.04 05/27/2015 Urinalysis Ord28 [...] hours from collection if refrigerated) 05/27/2015 Renal Ybq077 NA 136 mEq/L 05/26/2015 Renal Huu953 K 3.3 mEq/L 05/26/2015 Renal Yps729 CL 99 mEq/L 05/26/2015 Renal Ril065 CO2 25.0 mEq/L 05/26/2015 Renal Exy771 ANION GAP 15 05/26/2015 Renal Mhf667 Osmo 274 mOsmo 05/26/2015 Renal Huq507 GLUCOSE 106 mg/dL 05/26/2015 Renal Hwz528 BUN 17 mg/dL 05/26/2015 Renal Bdn954 Creat 1.4 mg/dL 05/26/2015 Renal Acp775 eGFR 40 ml/min/1.73m2 05/26/2015 Renal Khq042 B/C Ratio 12.0 Ratio 05/26/2015 Renal Nyh043 CALCIUM 9.3 mg/dL 05/26/2015 Renal Gzj264 PHOS 3.4 mg/dL 05/26/2015 Renal Cat524 ALBUMIN 3.4 g/dL 05/26/2015 Cbc With Differential [...] Ord2 RDW 14.3 % 04/21/2015 Free T4 Otc571 FREE T4 0.91 ng/dL 04/21/2015 %Hba1C Lcm124 % HbA1c 77047-5 5.8 % 04/21/2015 %Hba1C Twq100 Gluc Ave 120 mg/dL 04/21/2015 Comp Metabolic Hcp399 NA 137 mEq/L 04/21/2015 Comp Metabolic Gic012 K 3.6 mEq/L 04/21/2015 Comp Metabolic Amj723 CL 98 mEq/L 04/21/2015 Comp Metabolic Bdj615 CO2 25.0 mEq/L 04/21/2015 Comp Metabolic Mxj026 AN ION GAP 18 04/21/2015 Comp Metabolic Ldw308 GL UCOSE 83 mg/dL 04/21/2015 Comp Metabolic Age552 Cr eat 1.6 mg/dL 04/21/2015 Comp Metabolic Are248 eG FR 36 ml/min/1.73m2 04/21 Comp Metabolic Pfh675 BUN 28 mg/dL 04/21/2015 Comp Metabolic Hlh026 B/ C Ratio 17.9 Ratio 04/21/2015 Comp Metabolic Xwi173 CA LCIUM 9.5 mg/dL 04/21/2015 Comp Metabolic Rcz374 AL K PHOS 60 U/L 04/21/2015 Comp Metabolic Scw063 T(SGOT) 22 U/L 04/21/2015 Comp Metabolic Bjs993 AL T(SGPT) 10 U/L 04/21/2015 Comp Metabolic Bei883 BI LI T 0.4 mg/dL 04/21/2015 Comp Metabolic Cyd596 AL BUMIN 4.0 g/dL 04/21/2015 Comp Metabolic Jts234 TP RO 6.8 g/dL 04/21/2015 Comp Metabolic Ree075 GL OB 2.8 g/dL 04/21/2015 Comp Metabolic Lry895 A/ G Ratio 1.4 Ratio 04/21/2015 Comp Metabolic Ofr103 Os mo 278 mOsmo 04/21/2015 Tsh Ord6 [...] Procedure Codes Date THER/PROPH/DIAG INJ SC/IM CPT-4: 63059 06/22/2017 TRIAMCINOLONE ACET I [place] NOS CPT-4: J3301 06/22/2017 THER/PROPH/DIAG INJ SC/IM CPT-4: 24866 08/04/2015 TRIAMCINOLONE ACET I [place] NOS CPT-4: J3301 08/04/2015 Vital Signs Date Vital 03/12/2019 Blood Pressure 1: 148/88 Code: 8480-6 BMI: 31.4 Code: 12223-2 Heart Rate 1: 66 bpm Height: 5'1" SpO2: 96% Weight: 166 lbs 01/22/2019 Blood Pressure 1: 220/128 Code: 8480-6 Heart Rate 1: 100 bpm SpO2: 98% 10/12/2018 Blood Pressure 1: 110/74 Code: 8480-6 Heart Rate 1: 105 bpm Height: 5'1" SpO2: 95% Weight: 09/13/2018 Blood Pressure 1: 156/86 Code: 8480-6 BMI: 32.3 Code: 55089-3 Heart Rate 1: 90 bpm Height: 5'1" SpO2: 98% Weight: 171 lbs 05/04/2018 Blood Pressure 1: 158/88 Code: 8480-6 BMI: 33.3 Code: 96464-0 Heart Rate 1: 63 bpm Height: 5'1" SpO2: 98% Weight: 176 lbs 01/10/2018 Blood Pressure 1: 138/88 Code: 8480-6 BMI: 31.9 Code: 40800-1 Heart Rate 1: 78 bpm Height: 5'1" SpO2: 99% Weight: 169 lbs 12/06/2017 Blood Pressure 1: 158/98 Code: 8480-6 BMI: 32.3 Code: 47227-5 Heart Rate 1: 60 bpm Height: 5'1" SpO2: 100% Weight: 171 lbs 06/22/2017 Blood Pressure 1: 168/92 Code: 8480-6 BMI: 32.6 Code: 10046-4 Heart Rate 1: 133 bpm Height: 5'1" SpO2: 97% Temperature: 37.6 (C ) / 99.7 (F) Weight: 172 lbs 8 oz 03/02/2017 Blood Pressure 1: 168/90 Code: 8480-6 BMI: 35.0 Code: 97431-9 Heart Rate 1: 80 bpm Height: 5'1" SpO2: 94% Weight: 185 lbs 01/24/2017 Blood Pressure 1: 130/68 Code: 8480-6 BMI: 35.3 Code: 94127-4 Heart Rate 1: 66 bpm Height: 5'1" SpO2: 98% Weight: 187 lbs 10/13/2016 Blood Pressure 1: 136/74 Code: 8480-6 BMI: 35.1 Code: 83151-7 Heart Rate 1: 71 bpm Height: 5'1" SpO2: 97% Weight: 186 lbs 08/30/2016 Blood Pressure 1: 128/80 Code: 8480-6 BMI: 35.0 Code: 35579-8 Heart Rate 1: 75 bpm Height: 5'1" SpO2: 96% Weight: 185 lbs 8 oz 07/02/2016 Blood Pressure 1: 140/78 Code: 8480-6 Heart Rate 1: 63 bpm Height: 5'1" SpO2: 98% 06/24/2016 Blood Pressure 1: 148/100 Code: 8480-6 BMI: 34.2 Code: 22042-4 Heart Rate 1: 110 bpm Height: 5'1" SpO2: 94% Weight: 181 lbs 05/04/2016 Blood Pressure 1: 150/90 Code: 8480-6 Blood Pressure 1: 134/82 Code: 8480-6 BMI: 34.6 Code: 41667-1 Heart Rate 1: 74 bpm Height: 5'1" SpO2: 98% Weight: 183 lbs 04/06/2016 Blood Pressure 1: 156/92 Code: 8480-6 Blood Pressure 1: 158/88 Code: 8480-6 BMI: 34.8 Code: 89150-1 Heart Rate 1: 69 bpm Height: 5'1" SpO2: 97% Weight: 184 lbs 03/18/2016 Blood Pressure 1: 148/90 Code: 8480-6 BMI: 35.1 Code: 63524-6 Heart Rate 1: 106 bpm Height: 5'1" SpO2: 94% Weight: 186 lbs 03/11/2016 Blood Pressure 1: 140/90 Code: 8480-6 BMI: 35.1 Code: 93515-0 Heart Rate 1: 103 bpm Height: 5'1" SpO2: 96% Weight: 186 lbs 02/24/2016 Blood Pressure 1: 130/80 Code: 8480-6 BMI: 34.4 Code: 40201-5 Heart Rate 1: 110 bpm Height: 5'1" SpO2: 96% Weight: 182 lbs 12/16/2015 Blood Pressure 1: 144/98 Code: 8480-6 BMI: 33.8 Code: 22228-3 Heart Rate 1: 97 bpm Height: 5'1" SpO2: 98% Weight: 179 lbs 10/30/2015 Blood Pressure 1: 138/88 Code: 8480-6 BMI: 33.6 Code: 93779-9 Heart Rate 1: 88 bpm Height: 5'1" SpO2: 98% Weight: 178 lbs 09/23/2015 Blood Pressure 1: 152/94 Code: 8480-6 BMI: 32.7 Code: 59096-8 Heart Rate 1: 83 bpm Height: 5'1" SpO2: 97% Weight: 173 lbs 09/10/2015 Blood Pressure 1: 136/82 Code: 8480-6 BMI: 32.1 Code: 58511-9 Heart Rate 1: 105 bpm Height: 5'1" SpO2: 97% Weight: 170 lbs 08/12/2015 Blood Pressure 1: 132/70 Code: 8480-6 BMI: 31.2 Code: 79712-2 Heart Rate 1: 88 bpm Height: 5'1" SpO2: 95% Temperature: 36.7 (C ) / 98.0 (F) Weight: 165 lbs 08/04/2015 Blood Pressure 1: 136/80 Code: 8480-6 BMI: 31.0 Code: 69957-2 Heart Rate 1: 110 bpm Height: 5'1" SpO2: 98% Weight: 164 lbs 05/16/2015 Blood Pressure 1: 138/88 Code: 8480-6 BMI: 32.9 Code: 15702-4 Heart Rate 1: 87 bpm Height: 5'1" SpO2: 90% Weight: 174 lbs 05/12/2015 BMI: 31.7 Code: 27682-4 Height: 5'1" Weight: 168 lbs 04/21/2015 Blood Pressure 1: 124/82 Code: 8480-6 BMI: 32.1 Code: 95825-0 Heart Rate 1: 87 bpm Height: 5'1" [...] of the thyroid 12/06/2017 None hypothyroid Quality 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/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 [place] 12/06/2017 None hypothyroid Onset and Resolution [...] of the thyroid 08/30/2016 None hypothyroid Quality grounds/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 [place] 08/30/2016 None hypothyroid Onset and Resolution [...] of the thyroid 05/04/2016 None hypothyroid Quality grounds/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 [place] 05/04/2016 None hypothyroid Onset and Resolution [...] of the thyroid 04/06/2016 None hypothyroid Quality 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 PATIENT, LEVEL III Diagnosis: Chronic kidney disease, stage 3 (moderate)[ICD10: N18.3] Diagnosis: Essential (primary) hypertension[ICD10: I10] Diagnosis: Encounter for follow-up examination after completed treatment for conditions other than malignant neoplasm[ICD10: Z09] Britney Maya MD, [facility] CPT-4: 00204 10/12/2018 39548 EST. PATIENT, LEVEL III Diagnosis: Hypokalemia[ICD10: E87.6] Diagnosis: Interstitial pulmonary disease, unspecified[ICD10: J84.9] Britney Maya MD, [facility] CPT-4: 85562 09/13/2018 84012 EST. PATIENT, LEVEL IV Diagnosis: Essential (primary) hypertension[ICD10: I10] Diagnosis: Interstitial pulmonary disease, unspecified[ICD10: J84.9] Diagnosis: Chronic kidney disease, stage 3 (moderate)[ICD10: N18.3] Diagnosis: Mixed hyperlipidemia[ICD10: E78.2] Britney Maya MD, [facility] CPT-4: 76626 05/04/2018 62196 EST. PATIENT, LEVEL IV Diagnosis: Essential (primary) hypertension[ICD10: I10] Diagnosis: Interstitial pulmonary disease, unspecified[ICD10: J84.9] Diagnosis: Chronic kidney disease, stage 3 (moderate)[ICD10: N18.3] Diagnosis: Mixed hyperlipidemia[ICD10: E78.2] Britney Maya MD, [facility] CPT-4: 81218 01/10/2018 84059 EST. PATIENT, LEVEL IV Diagnosis: Other specified hypothyroidism[ICD10: E03.8] Diagnosis: Essential (primary) hypertension[ICD10: I10] Britney Maya MD, [facility] CPT-4: 46693 12/06/2017 01073 EST. PATIENT, LEVEL IV Diagnosis: Other malaise[ICD10: R53.81] Diagnosis: Other fatigue[ICD10: R53.83] Britney Maya MD, [facility] CPT-4: 04553 06/22/2017 71143 EST. PATIENT, LEVEL IV Diagnosis: Acute laryngopharyngitis[ICD10: J06.0] Diagnosis: Other acute sinusitis[ICD10: J01.80] Diagnosis: Other allergic rhinitis[ICD10: J30.89] Britney Maya MD, [facility] CPT-4: 21396 03/02/2017 52037 EST. PATIENT, LEVEL IV Diagnosis: Generalized hyperhidrosis[ICD10: R61] Diagnosis: Other acute sinusitis[ICD10: J01.80] Diagnosis: Other fatigue[ICD10: R53.83] Diagnosis: Interstitial pulmonary disease, unspecified[ICD10: J84.9] Britney Maya MD, [facility] CPT-4: 71658 01/24/2017 63210 EST. PATIENT, LEVEL IV Diagnosis: Acute laryngopharyngitis[ICD10: J06.0] Diagnosis: Other acute sinusitis[ICD10: J01.80] Britney Maya MD, [facility] CPT- 4: 91271 10/13/2016 ([id number]) 93109 EST. P ATIENT, LEVEL IV Diagnosis: Essential (primary) hypertension[ICD10: I10] Diagnosis: Drug-induced polyneuropathy[ICD10: G62.0] Diagnosis: Impaired fasting glucose[ICD10: R73.01] Catie Maya MD, [facility] CPT-4: 95142 08/30/2016 66912 EST. PATIENT, LEVEL IV Diagnosis: Pain in thoracic spine[ICD10: M54.6] Diagnosis: Pain in left shoulder[ICD10: M25.512] Diagnosis: Zoster without complications[ICD10: B02.9] Britney Maya MD, [facility] CPT-4: 35072 07/02/2016 94755 EST. PATIENT, LEVEL III Diagnosis: Other specified hypothyroidism[ICD10: E03.8] Diagnosis: Menopausal and female climacteric states[ICD10: N95.1] Diagnosis: Essential (primary) hypertension[ICD10: I10] Britney Maya MD, [facility] CPT-4: 27370 06/24/2016 ([id number]) 35806 EST. P ATIENT, LEVEL IV Diagnosis: Essential (primary) hypertension[ICD10: I10] Diagnosis: Atrophy of thyroid (acquired)[ICD10: E03.4] Diagnosis: Pain in left foot[ICD10: M79.672] Meghana Maya MD, [facility] CPT-4: 51878 05/04/2016 ([id number]) 17845 EST. P ATIENT, LEVEL IV Diagnosis: Essential (primary) hypertension[ICD10: I10] Diagnosis: Pain in left leg[ICD10: M79.605] Diagnosis: Pain in left foot[ICD10: M79.672] Diagnosis: Atrophy of thyroid (acquired)[ICD10: E03.4] Meghana Maya MD, C CPT-4: 07025 04/06/2016 ([id number]) 06389 EST. P ATIENT, LEVEL III Diagnosis: Essential (primary) hypertension[ICD10: I10] Diagnosis: Localized edema[ICD10: R60.0] Catie Maya MD, [facility] CPT- 4: 52904 03/18/2016 ([id number]) 52658 EST. P ATIENT, LEVEL III Diagnosis: Essential (primary) hypertension[ICD10: I10] Diagnosis: Pain in left foot[ICD10: M79.672] Catie Maya MD, [facility] CPT- 4: 72425 03/11/2016 ([id number]) 51485 EST. P ATIENT, LEVEL III Diagnosis: Localized edema[ICD10: R60.0] Diagnosis: Essential (primary) hypertension[ICD10: I10] Catie Maya MD, [facility] CPT-4: 03193 02/24/2016 ([id number]) 78529 EST. P ATIENT, LEVEL IV Diagnosis: Hypothyroidism, unspecified[ICD10: E03.9] Diagnosis: Essential (primary) hypertension[ICD10: I10] Meghana Maya MD, [facility] CPT-4: 95366 12/16/2015 ([id number]) 32744 EST. P ATIENT, LEVEL III Diagnosis: Essential (primary) hypertension[ICD10: I10] Diagnosis: Hypothyroidism, unspecified[ICD10: E03.9] Meghana Maya MD, [facility] CPT-4: 84422 10/30/2015 ([id number]) 15054 EST. P ATIENT, LEVEL IV Diagnosis: Diarrhea, unspecified[ICD10: R19.7] Diagnosis: Essential (primary) hypertension[ICD10: I10] Meghana Maya MD, [facility] CPT-4: 15743 09/23/2015 ([id number]) 22328 EST. P ATIENT, LEVEL III Diagnosis: Essential (primary) hypertension[ICD10: I10] Diagnosis: Diarrhea, unspecified[ICD10: R19.7] Meghana Maya MD, [facility] CPT- 4: 73625 09/10/2015 ([id number]) 42063 EST. P ATIENT, LEVEL III Diagnosis: Acute maxillary sinusitis, unspecified[ICD10: J01.00] Diagnosis: Myositis, unspecified[ICD10: M60.9] Meghana Maya MD, [facility] CPT- 4: 74342 08/12/2015 ([id number]) 90536 EST. P ATIENT, LEVEL IV Diagnosis: Essential (primary) hypertension[ICD10: I10] Diagnosis: Pain in left leg[ICD10: M79.605] Diagnosis: Other myositis, multiple sites[ICD10: M60.89] Diagnosis: Hypothyroidism, unspecified[ICD10: E03.9] Meghana Maya MD, [facility] CPT-4: 71874 08/04/2015 19426 EST. PATIENT, LEVEL III Diagnosis: Dyspnea, unspecified[ICD10: R06.00] Diagnosis: Essential (primary) hypertension[ICD10: I10] Meghana Maya MD, [facility] CPT-4: 31346 05/16/2015 ([id number]) 23113 EST. P ATIENT, LEVEL II Diagnosis: Dyspnea, unspecified[ICD10: R06.00] Meghana Maya MD, [facility] CPT- 4: 84358 05/12/2015 ([id number]) OFFICE [facility] LEVEL 4 Diagnosis: Essential (primary) hypertension[ICD10: I10] Diagnosis: Impaired fasting glucose[ICD10: R73.01] Diagnosis: Mixed hyperlipidemia[ICD10: E78.2] Diagnosis: Hypothyroidism, unspecified[ICD10: E03.9] Diagnosis: Encounter for screening mammogram for malignant neoplasm of breast[ICD10: Z12.31] Catie Maya MD, [facility] CPT-4: 69110 04/21/2015 Plan of Care Planned Activity Notes [...] of control. 03/12/2019 Appointment: Britney Bower WPtel: [facility] (30 min) Complex 03/12/2019 Patient Education: Patient Medication Summary Completed 03/12/2019 Care Plan: Tsh Pending 03/12/2019 Care Plan: Free T4 Pending 03/12/2019 Appointment: Nurse Visit 01/22/2019 Patient Education: Patient Medication Summary Completed 01/22/2019 Appointment: Britney Bowertel: [facility] (30 min) Complex 10/26/2018 Appointment: Britney Bower WPtel: [facility] Nurse Visit 10/17/2018 Visit Plan: Hypertension - [...] to monitor - pt has seen a clubhouse manager in the 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 Hospital follow up - This was a follow up appointment from the patient's hospitalization during which time Dr. Maya formulated the assessment and plan for the follow up on this patient's medical condition. 10/12/2018 Appointment: Britney Bowertel: [phone] [facility] (30 min) Complex 10/12/2018 Patient Education: Patient Medication Summary Completed 10/12/2018 Visit Plan: Hypokalemia - will send RX for potassium and monitor labs Interstitial lung disease - pt is to follow up with specialist and notify clinic with any changes in current treatment plan 09/13/2018 [facility] ([facility] 09/13/2018 Patient Education: Patient [...] treatment plan 05/04/2018 Appointment: [facility]el[phone] (15 min) Moderate 05/04/2018 Patient Education: Patient [...] treatment plan 01/10/2018 Appointment: Britney Bower WPtel: [facility] (30 min) Complex 01/10/2018 Patient Education: Patient [...] Appointment: Britney Bower WPtel: [facility] (15 min) Moderate 12/06/2017 Patient Education: Patient Medication Summary Completed 12/06/2017 Visit Plan: URI - Pt advised to inc rease fluids, vitamin C. Discussed natural and expected course of this diagnosis and need to alert me if symptoms do not follow expected course, or if any worse. RX sent to patient's pharmacy. 06/22/2017 Appointment: Britney Bower WPtel: [facility] (15 min) Moderate 06/22/2017 Patient Education: Patient [...] allergy spray. 03/02/2017 Appointment: Britney Bower WPtel: [address] [place] [address] (10 min) Simple 03/02/2017 Patient Education: Patient [...] will complete paperwork for pt to come pickling solution maker - pt is to continue with her specialist at [facility] - Discussed with Dr. Maya - will increase clonidine to BID - pt is to consider referral to dermatology - notify clinic if symptoms do not improve, if they worsen, or with any other questions or concerns. 01/24/2017 Appointment: Britney Bower WPtel: [address] [place], [place] [id number] (30 min) Complex 01/24/2017 Patient Education: Patient [...] Appointment: Britney Bower WPtel: [facility] (30 min) Complex 10/13/2016 Patient Education: Patient [...] change in blood pressure readings at home. 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 07/02/2016 Appointment: Brit[facility]Ptel[phone] (30 min) Complex 07/02/2016 Patient [...] control. 06/24/2016 Appointment: [facility]el[phone] (30 min) Complex 06/24/2016 Patient Education: Patient Medication Summary Completed 06/24/2016 Patient Education: Obesity Completed 06/24/2016 Patient Education: Hypertension Completed 06/24/2016 Patient Education: Patient Medication Summary Completed 05/14/2016 Care Plan: SCREENINGMAMMOGRAPHYDIGITAL LOINC : 49252-7 Pending 05/14/2016 Visit Plan: Hypertension - well [...] painful. 05/04/2016 Appointment[phone] ([facility] min) Moderate 05/04/2016 Patient Education: [...] Appointment: Meghana Maya WPtel: [facility] [place] (15 min) Moderate 04/06/2016 Patient Education: Patient Medication Summary Completed 04/06/2016 Patient Education: Obesity Completed 04/06/2016 Care Plan: Referral Order SNOMED-CT : [id number] Pending 04/06/2016 Visit Plan: Edema-improved with low [...] Appointment: Catie Shoemaker WPtel: [facility] [place] (15 min) Moderate 03/18/2016 [...] xray left foot-recommend she follow up with balance truing inspector at regarding left foot pain/numbness/weakness. Patient has noticed worsening symptoms since decreasing prednisone. 03/11/2016 Appointment: Catie Shoemaker WPtel: [phone] [id number] (15 min) Moderate 03/11/2016 Patient Education: Patient Medication Summary Completed 03/11/2016 Patient Education: Obesity Completed 03/11/2016 Appointment: Catie Shoemaker WPtel: [phone] [facility] (30 min) Complex 03/09/2016 Visit Plan: [...] Appointment: Catie Shoemaker WPtel: [phone] (15 min) Moderate 02/24/2016 Patient Education: Patient Medication Summary Completed 02/24/2016 Patient Education: Obesity Completed 02/24/2016 Patient Education: Hypertension Completed 02/24/2016 Appointment: Meghana Maya WPtel: [facility] (15 min) Moderate 02/23/2016 Visit [...] control. 12/16/2015 Appointment: [facility]el[facility] (15 min) Moderate 12/16/2015 Patient Education: Patient [...] Complex 10/23/2015 Appointment: [facility]el[phone] (15 min) Moderate 10/23/2015 Visit Plan: [...] home. 09/10/2015 Appointment: [facility]Ptel[facility] (15 min) Moderate 09/10/2015 Patient Education: [...] min) Complex 07/24/2015 Appointment: Meghana Maya WPtel: [facility] (15 min) Moderate 07/24/2015 Appointment: Lab [...] Completed 04/21/2015 Care Plan: SCREENINGMAMMOGRAPHYDIGITAL LOINC : 01434-9 Ordered 04/21/2015 Appointment: Meghana Maya [facility]Ptel[facility] [place] ([place] New Patient 04/01/2015 Referral: Sharon Duran Referral Appointment Requested Instructions Comment [phone] - fax f or our office increase [...] get a steroid shot today. Potassium 40meq arun ght, then 40meq in the morning and 20meq in the evening then recheck potassium first thing tuesday so we can adjust it more if needed. Hypokalemia - will send RX for potassium and monitor labs Interstitial lung disease - pt is to follow up with specialist and notify clinic with any changes in current treatment plan . 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 CROUCH IS THE P ODIATRIST WHO SPECIALIZES IN FOOT AND ANKLE DISEASE AT [address] INCREASE THE METOPROLOL TO 1.5 PILLS [...] - continue with current medication. . Left shoulder/thor acic back pain - [...] sent to patient's pharmacy. . Hypertension - wel l controlled - [...] the current treatment plan DX sinusitis - discu ssed expected course with the patient, pt advised to call for worsening symptoms, or lack of improvement on prescribed treatment course. . Sinusitis - Pt has acute infection - p ain in face, maxillary region, Pt informed to use decongestant, RX given to patient, sinus rinses also recommended. Call if symptoms do not show improvement. Capzasin cream - tr y a small [...] foot that is painful. . Hypertension - wel l controlled - [...] change in blood pressure readings at home. 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 Patient has [...] beta anuj-metoprolol 25mg daily . Shortness of breat h, fatigue - [...] function testing. . URI - Pt advised t o [...] allergy spray. . URI - Pt advised t o [...] will complete paperwork for pt to come pickling solution maker - pt is to continue with her specialist at [facility] - Discussed with Dr. Maya - will increase clonidine to BID - pt is to consider referral to dermatology - notify clinic if symptoms do not improve, if they worsen, or with any other questions or concerns. probiotic - StartMel Joyent, probiotic pearls, etc - take three times [...] pressure readings at home. . Hypertension - The patient has been [...] to monitor - pt has seen a clubhouse manager in the 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 Hospital follow up - This was a follow up appointment from the patient's hospitalization during which time Dr. Maya formulated the assessment and plan for the follow up on this patient's medical condition. . Hypertension - unc ontrolled - the [...] pressure readings at home. . Hypothyroidism - p t with chronic [...]
--- OUTSIDE RECORDS SUMMARY | 2019-08-14 06:11 | XMS REPORT | CCD ---
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 04/21/[address]: [id number] Never smoker 04/21/2015 Alcohol history Unknown occasionally drinks alcohol 04/21/2015 Allergies, Adverse Reactions, Alerts Substance Reaction Codes Entered Date Inactivated Date Status [id number] REDU CTASE INHIBITORS myalgias Unknown 016 No [...] Date Stop Date Sta tus Fill Instructions losartan 50 mg tablet RxNorm: 679366 1 Tablet(s) PO daily 02/06/2019 06/05/2019 Active oxybutynin chloride 5 mg tablet RxNorm: 678388 Tablet(s) TAKE ONE-ANGEL LF TABLET BY MOUTH DAILY 02/06/2019 06/05/2019 Active metoprolol succinate ER 50 mg tablet,extended release 24 hr RxNorm: 341156 1 Tablet(s) PO BID 02/06/2019 06/05/2019 Active oxybutynin chloride 5 mg tablet RxNorm: 002543 TAKE ONE-HALF TABLET BY MOUTH DAILY 01/30/2019 02/05/2019 In active metoprolol succinate ER 100 mg tablet,extended release 24 hr RxNorm: 648514 1 Tablet(s) PO daily 01/22/2019 01/21/2019 Inactive metoprolol succinate ER 50 mg tablet,extended release 24 hr RxNorm: 683212 1 Tablet(s) PO daily 01/22/2019 02/05/2019 Inactive metoprolol succinate ER 100 mg tablet,extended release 24 hr RxNorm: 026230 1 Tablet(s) PO daily 01/22/2019 01/22/2019 Inactive oxybutynin chloride 5 mg tablet RxNorm: 297257 1/2 Tablet(s) PO hari y 01/04/2019 01/29/2019 In active oxybutynin chloride 5 mg tablet RxNorm: 349972 1/2 Tablet(s) PO hari y 01/04/2019 01/03/2019 In active Lipitor 20 mg tablet RxNorm: 440755 TAKE ONE TABLET BY MOUTH DAILY 12/04/2018 06/01/2019 Ac tive venlafaxine ER 150 m g capsule,extended release 24 hr RxNorm: 626295 TAKE ONE CAPSULE BY MOUTH DAILY 12/04/2018 06/01/2019 Active losartan 25 mg tablet RxNorm: 420055 TAKE ONE TABLET BY MOUTH DAILY 12/04/2018 01/24/2019 In active nystatin 100,000 uni t/mL oral suspension RxNorm: 515401 4 Unit(s) PO QID 10/17/2018 10/23/2018 In active nystatin 100,000 uni t/mL oral suspension RxNorm: 281907 4 Unit(s) PO QID 10/17/2018 10/16/2018 In active metoprolol succinate ER 50 mg tablet,extended release 24 hr RxNorm: 342097 1 Tablet(s) PO daily 10/17/2018 01/19/2019 Inactive potassium chloride E R 10 mEq tablet,extended release RxNorm: 913596 Tablet(s) TAKE ONE TABLET BY MOUTH DAILY 09/15/2018 03/13/2019 Active candesartan 4 mg tablet RxNorm: 130303 1 Tablet(s) PO daily 09/15/2018 10/14/2018 Inactive clonidine HCl 0.1 mg tablet RxNorm: 866919 TAKE ONE TABLET BY [facility] TWICE A DAY 09/14/2018 02/10/2019 In active losartan 25 mg tablet RxNorm: 850112 TAKE ONE TABLET BY MOUTH DAILY 09/14/2018 11/12/2018 In active clonidine HCl 0.1 mg tablet RxNorm: 003816 Tablet(s) TAKE ONE TA BLET BY MOUTH AT BEDTIME 09/13/2018 No Stop Date Active venlafaxine ER 150 m g capsule,extended release 24 hr RxNorm: 435016 TAKE ONE CAPSULE BY MOUTH DAILY 05/15/2018 11/10/2018 Inactive Lipitor 20 mg tablet RxNorm: 297762 TAKE ONE TABLET BY MOUTH DAILY 05/15/2018 11/10/2018 In active losartan 25 mg tablet RxNorm: 568790 TAKE ONE TABLET BY MOUTH DAILY 04/17/2018 07/14/2018 In active losartan 25 mg tablet RxNorm: 410120 TAKE ONE TABLET BY MOUTH DAILY 04/17/2018 04/16/2018 In active Lipitor 20 mg tablet RxNorm: 183859 1 Tablet(s) PO daily 01/12/2018 01/11/2018 Inactive Lipitor 20 mg tablet RxNorm: 624940 1 Tablet(s) PO daily 01/12/2018 05/11/2018 Inactive clonidine HCl 0.1 mg tablet RxNorm: 048554 TAKE ONE TABLET BY [facility] TWICE A DAY 01/04/2018 07/02/2018 In active potassium chloride E R 10 mEq tablet,extended release RxNorm: 410285 TAKE ONE TABLET BY MOUTH DAILY 01/04/2018 09/12/2018 Inactive losartan 25 mg tablet RxNorm: 926052 TAKE ONE TABLET BY MOUTH DAILY 01/03/2018 04/02/2018 In active levothyroxine 50 mcg tablet RxNorm: 345021 1 Tablet(s) PO daily 12/08/2017 09/12/2018 Inactive losartan 25 mg tablet RxNorm: 302402 1 Tablet(s) PO daily 12/06/2017 01/02/2018 Inactive venlafaxine ER 150 m g capsule,extended release 24 hr RxNorm: 383511 TAKE ONE CAPSULE BY MOUTH DAILY 12/06/2017 05/04/2018 Inactive metoprolol succinate ER 50 mg tablet,extended release 24 hr RxNorm: 833455 TAKE ONE TABLET BY MOUTH DAILY 08/29/2017 01/25/2018 Inactive metoprolol succinate ER 50 mg tablet,extended release 24 hr RxNorm: 036694 TAKE ONE TABLET BY MOUTH DAILY 08/29/2017 08/28/2017 Inactive metoprolol succinate ER 50 mg tablet,extended release 24 hr RxNorm: 303140 TAKE ONE TABLET BY MOUTH DAILY 08/29/2017 08/28/2017 Inactive Tamiflu 75 mg capsule RxNorm: 866172 1 Capsule(s) PO BID 06/22/2017 06/26/2017 Inactive Kenalog 40 mg/mL jenna pension for injection RxNorm: 8417085 1.5 Milliliter(s) In j 06/22/2017 06/22/2017 In active clonidine HCl 0.1 mg tablet RxNorm: 690311 TAKE ONE TABLET BY [facility] TWICE A DAY 06/06/2017 12/02/2017 In active potassium chloride E R 10 mEq tablet,extended release RxNorm: 798213 TAKE ONE TABLET BY MOUTH DAILY 06/06/2017 12/02/2017 Inactive venlafaxine ER 150 m g capsule,extended release 24 hr RxNorm: 945490 TAKE ONE CAPSULE BY MOUTH DAILY 05/23/2017 11/18/2017 Inactive Zithromax 500 mg tablet RxNorm: 858302 1 Tablet(s) PO daily 05/18/2017 05/22/2017 Inactive potassium chloride E R 10 mEq tablet,extended release RxNorm: 191582 TAKE ONE TABLET BY MOUTH DAILY 04/21/2017 05/20/2017 Inactive potassium chloride E R 10 mEq tablet,extended release RxNorm: 580244 TAKE ONE TABLET BY MOUTH DAILY 03/16/2017 04/14/2017 Inactive Zithromax Z-Jacek 250 mg tablet RxNorm: 938999 1 Tablet(s) PO UD 03/02/2017 06/21/2017 Inactive venlafaxine ER 150 m g capsule,extended release 24 hr RxNorm: 034267 Capsule(s) TAKE ONE CAPSULE BY MOUTH DAILY 02/17/2017 02/16/2017 Inactive venlafaxine ER 150 m g capsule,extended release 24 hr RxNorm: 046552 TAKE ONE CAPSULE BY MOUTH DAILY 02/17/2017 05/14/2018 Inactive clonidine HCl 0.1 mg tablet RxNorm: 312972 TAKE ONE TABLET BY [facility] EVERY NIGHT AT BEDTIME 02/14/2017 01/03/2018 Inactive metoprolol succinate ER 50 mg tablet,extended release 24 hr RxNorm: 193943 TAKE ONE TABLET BY MOUTH DAILY 02/14/2017 08/12/2017 Inactive Protonix 40 mg table t,delayed release RxNorm: 812822 TAKE ONE TABLET BY [facility] DAILY WHILE ON PREDNISONE 01/25/2017 09/12/2018 Inactive Zithromax Z-Jacek 250 mg tablet RxNorm: 632343 1 Tablet(s) PO UD 01/24/2017 01/03/2018 Inactive potassium chloride E R 10 mEq tablet,extended release RxNorm: 391290 TAKE ONE TABLET BY MOUTH DAILY 01/17/2017 03/15/2017 Inactive clonidine HCl 0.1 mg tablet RxNorm: 846426 TAKE ONE TABLET BY [facility] EVERY NIGHT AT BEDTIME 01/17/2017 02/13/2017 Inactive potassium chloride E R 10 mEq tablet,extended release RxNorm: 067125 TAKE ONE TABLET BY MOUTH DAILY 12/16/2016 01/14/2017 Inactive venlafaxine ER 150 m g capsule,extended release 24 hr RxNorm: 560415 TAKE ONE CAPSULE BY MOUTH DAILY 11/18/2016 02/15/2017 Inactive clonidine HCl 0.1 mg tablet RxNorm: 949702 TAKE ONE TABLET BY [facility] EVERY NIGHT AT BEDTIME 11/08/2016 01/06/2017 Inactive clonidine HCl 0.1 mg tablet RxNorm: 758762 1 Tablet(s) BID 10/19/2016 01/16/2017 Inactive potassium chloride E R 10 mEq tablet,extended release RxNorm: 026680 TAKE ONE TABLET BY MOUTH DAILY 10/15/2016 11/13/2016 Inactive Zithromax Z-Jacek 250 mg tablet RxNorm: 816980 1 Tablet(s) PO UD 10/13/2016 01/03/2018 Inactive potassium chloride E R 10 mEq tablet,extended release RxNorm: 101646 TAKE ONE TABLET BY MOUTH DAILY 10/12/2016 10/14/2016 Inactive potassium chloride E R 10 mEq tablet,extended release RxNorm: 236200 Tablet(s) BID TAKE ONE TABLET BY MOUTH TWICE DAILY 09/17/2016 10/11/2016 Inactive potassium chloride E R 10 mEq tablet,extended release RxNorm: 313278 TAKE ONE TABLET BY MOUTH DAILY 09/13/2016 09/16/2016 Inactive clonidine HCl 0.1 mg tablet RxNorm: 139648 Tablet(s) TAKE ONE TA BLET BY MOUTH EVERY NIGHT AT BEDTIME 08/12/2016 10/18/2016 Inactive gabapentin 300 mg ca psule RxNorm: 129269 1 Capsule(s) PO [facility] 08/10/2016 No Stop Date Active venlafaxine ER 150 m g capsule,extended release 24 hr RxNorm: 452693 TAKE ONE CAPSULE BY MOUTH DAILY 08/09/2016 11/06/2016 Inactive metoprolol succinate ER 50 mg tablet,extended release 24 hr RxNorm: 377920 TAKE ONE TABLET BY MOUTH DAILY 07/29/2016 01/24/2017 Inactive clonidine HCl 0.1 mg tablet RxNorm: 136024 TAKE ONE TABLET BY [facility] EVERY NIGHT AT BEDTIME 07/21/2016 08/11/2016 Inactive potassium chloride E R 10 mEq tablet,extended release RxNorm: 929984 TAKE ONE TABLET BY MOUTH DAILY 07/14/2016 09/11/2016 Inactive Prescriber not associated w ith this practice or location acyclovir 400 mg tablet RxNorm: 851556 2 Tablet(s) PO QID 07/02/2016 07/11/2016 Inactive cyclobenzaprine 5 mg tablet RxNorm: 000829 1-2 Tablet(s) PO TID as needed 07/02/2016 07/06/2016 In active capsaicin 0.1 % topi reagan cream RxNorm: 075135 1 Application TOP TID as needed 07/02/2016 09/12/2018 In active Protonix 40 mg table t,delayed release RxNorm: 021170 TAKE ONE TABLET BY [facility] DAILY WHILE ON PREDNISONE 06/29/2016 12/25/2016 Inactive clonidine HCl 0.1 mg tablet RxNorm: 581494 1 Tablet(s) PO QHS 06/25/2016 07/20/2016 Inactive calcium carbonate 50 0 mg calcium (1,250 mg) tablet RxNorm: 966680 TAKE ONE TABLET BY MOUTH DAILY WHILE ON PREDNISONE. MAY STOP TAKING WHEN PREDNISONE IS COMPLETE 06/01/2016 09/12/2018 In active Vitamin D3 1,000 uni t tablet RxNorm: 268298 1 Tablet(s) PO daily . May stop taking once prednisone is complete. 04/26/2016 09/12/2018 Inactive metoprolol succinate ER 50 mg tablet,extended release 24 hr RxNorm: 463629 1.5 Tablet(s) PO daily 04/06/2016 06/23/2016 Inactive prednisone 10 mg tablet RxNorm: 557210 1 Tablet(s) PO daily 04/02/2016 06/21/2017 Inactive metoprolol succinate ER 50 mg tablet,extended release 24 hr RxNorm: 020601 1 Tablet(s) PO daily 03/18/2016 04/05/2016 Inactive amlodipine 10 mg tablet RxNorm: 192165 1/2 Tablet(s) PO daily 02/24/2016 06/21/2016 Inactive metoprolol succinate ER 25 mg tablet,extended release 24 hr RxNorm: 682499 1 Tablet(s) PO daily 02/24/2016 03/16/2016 Inactive calcium carbonate 50 0 mg calcium (1,250 mg) tablet RxNorm: 506715 TAKE ONE TABLET BY MOUTH DAILY WHILE ON PREDNISONE. MAY STOP TAKING WHEN PREDNISONE IS COMPLETE 02/16/2016 05/15/2016 In active Protonix 40 mg table t,delayed release RxNorm: 920327 TAKE ONE TABLET BY [facility] DAILY WHILE ON PREDNISONE 02/10/2016 05/09/2016 Inactive venlafaxine ER 150 m g capsule,extended release 24 hr RxNorm: 579529 Capsule(s) TAKE ONE CAPSULE BY MOUTH DAILY 12/10/2015 04/07/2016 Inactive calcium carbonate 50 0 mg calcium (1,250 mg) tablet RxNorm: 870487 1 Tablet(s) PO daily 12/01/2015 01/29/2016 Inactive Vitamin D3 1,000 uni t tablet RxNorm: 415835 1 Tablet(s) PO daily 12/01/2015 03/29/2016 Inactive levothyroxine 50 mcg tablet RxNorm: 473576 1 Tablet(s) PO daily 12/01/2015 11/24/2016 Inactive amlodipine 10 mg tablet RxNorm: 515593 1 Tablet(s) PO daily 11/19/2015 11/18/2015 Inactive amlodipine 10 mg tablet RxNorm: 755143 1 Tablet(s) PO daily 11/19/2015 02/23/2016 Inactive amlodipine 5 mg tablet RxNorm: 337319 1 Tablet(s) PO daily 11/17/2015 11/18/2015 Inactive venlafaxine ER 150 m g capsule,extended release 24 hr RxNorm: 828525 TAKE ONE CAPSULE BY MOUTH DAILY 11/13/2015 12/09/2015 Inactive Protonix 40 mg table t,delayed release RxNorm: 873336 1 Tablet(s) PO daily while on prednisone 2015 02/09/2016 Inactive prednisone 10 mg tablet RxNorm: 187695 2 Tablet(s) PO UD 10/30/2015 04/01/2016 Inactive 60mg for 2 days, then 50mg for 2 days, then 40mg for 2 days, then 30mg for 2 days, then 20mg for 2 days, then 10mg for 2 days, then 5mg for 2 days potassium chloride E R 10 mEq tablet,extended release RxNorm: 229186 TAKE ONE TABLET BY MOUTH DAILY 09/22/2015 12/19/2015 Inactive venlafaxine ER 150 m g capsule,extended release 24 hr RxNorm: 229099 TAKE ONE CAPSULE BY MOUTH DAILY 09/08/2015 11/06/2015 Inactive cefdinir 300 mg capsule RxNorm: 321734 1 Capsule(s) PO BID 08/20/2015 08/22/2015 Inactive cefdinir 300 mg capsule RxNorm: 355994 1 Capsule(s) PO BID 08/12/2015 08/18/2015 Inactive Kenalog 40 mg/mL jenna pension for injection RxNorm: 4663092 1 Milliliter(s) Inj 08/04/2015 08/04/2015 In active triamterene 37.5 mg- hydrochlorothiazide 25 mg tablet RxNorm: 287576 1 Tablet(s) PO BID 06/17/2015 08/03/2015 Inactive potassium chloride E R 10 mEq tablet,extended release RxNorm: 681392 1 Tablet(s) PO daily 05/30/2015 08/03/2015 Inactive Levaquin 250 mg tablet RxNorm: 990777 Tablet(s) PO UD 500 mg day one, then 250 mg day 2-7 05/27/2015 08/03/2015 Inactive prednisone 10 mg tablet RxNorm: 411949 Tablet(s) PO UD 05/27/2015 10/29/2015 Inactive 60mg for 2 days, then 50mg for 2 days, then 40mg for 2 days, then 30mg for 2 days, then 20mg for 2 days, then 10mg for 2 days, then 5mg for 2 days albuterol sulfate 1. 25 mg/3 mL solution for nebulization RxNorm: 772253 3 Milliliter(s) INH Q4-6H as needed dyspnea 05/23/2015 09/12/2018 Inactive Zithromax 500 mg tablet RxNorm: 739017 1 Tablet(s) PO daily 05/16/2015 05/15/2015 Inactive Zithromax 500 mg tablet RxNorm: 355952 1 Tablet(s) PO daily 05/16/2015 05/20/2015 Inactive prednisone 20 mg tablet RxNorm: 963854 3 Tablet(s) PO daily 05/12/2015 05/16/2015 Inactive venlafaxine ER 150 m g capsule,extended release 24 hr RxNorm: 116908 TAKE ONE CAPSULE BY MOUTH DAILY 05/12/2015 08/09/2015 Inactive Keflex 500 mg capsule RxNorm: 069200 1 Capsule(s) PO TID 05/12/2015 05/18/2015 Inactive simvastatin 20 mg ta blet RxNorm: 556562 1 Tablet(s) PO daily 04/10/2015 04/09/2015 Inactive simvastatin 20 mg ta blet RxNorm: 000986 1 Tablet(s) PO daily 04/10/2015 08/11/2015 Inactive venlafaxine ER 150 m g capsule,extended release 24 hr RxNorm: 285325 TAKE ONE CAPSULE BY MOUTH DAILY 04/08/2015 05/07/2015 Inactive amlodipine 5 mg tablet RxNorm: 270149 1 Tablet(s) PO daily 03/07/2015 03/06/2015 Inactive amlodipine 5 mg tablet RxNorm: 729511 1 Tablet(s) PO daily 03/07/2015 07/04/2015 Inactive venlafaxine ER 150 m g capsule,extended release 24 hr RxNorm: 849527 1 Capsule(s) PO daily 01/29/2015 03/29/2015 Inactive Co Q-10 oral RxNorm: 94465 oral No Start Date Active gabapentin 100 mg ca psule RxNorm: 679650 1 Capsule(s) PO QAM No Start Date Active albuterol sulfate 1. 25 mg/3 mL solution for nebulization RxNorm: 550804 3 Milliliter(s) INH Q4-6H as needed dyspnea No Start Date 05/22/2015 Inactive levothyroxine 50 mcg tablet RxNorm: 451873 1 Tablet(s) PO daily No Start Date 11/30/2015 Inactive metoprolol succinate ER 50 mg tablet,extended release 24 hr RxNorm: 008148 1 Tablet(s) PO daily No Start Date 09/12/2018 Inactive gabapentin 300 mg ca psule RxNorm: 262042 1 Capsule(s) PO QHS No Start Date 08/09/2016 Inactive vitamin B complex oral RxNorm: 78956 oral No Start Date 09/12/2018 Inactive Vitamin D3 1,000 uni t tablet RxNorm: 737112 1 Tablet(s) PO daily No Start Date 11/30/2015 Inactive Protonix 40 mg table t,delayed release RxNorm: 177633 1 Tablet(s) PO daily while on prednisone No Start Date 10/30/2015 Inactive calcium carbonate oral RxNorm: oral No Start Date 11/30/2015 Inactive potassium chloride E R 10 mEq tablet,extended release RxNorm: 914658 1 Tablet(s) PO daily No Start Date 05/29/2015 Inactive Levaquin 250 mg tablet RxNorm: 001494 Tablet(s) PO UD 500 mg day one, then 250 mg day 2-7 No Start Date 05/26/2015 Inactive triamterene 37.5 mg- hydrochlorothiazide 25 mg tablet RxNorm: 587330 1 Tablet(s) PO BID No Start Date 06/16/2015 Inactive prednisone 10 mg tablet RxNorm: 538522 Tablet(s) PO UD No Start Date 05/26/2015 Inactive 60mg for 2 days, then 50mg for 2 days, then 40mg for 2 days, then 30mg for 2 days, then 20mg for 2 days, then 10mg for 2 days, then 5mg for 2 days venlafaxine ER 150 m g capsule,extended release 24 hr RxNorm: 575227 1 Capsule(s) PO daily No Start Date 01/28/2015 Inactive Medication Administered Medication Codes Instruc tions Start Date Status Kenalog 40 mg/mL suspension for injection RxNorm: 2141754 1.5Milliliter 06/22/2017 No longer Active Kenalog 40 mg/mL suspension for injection RxNorm: 4376127 1Milliliter 08/04/2015 N o longer Active Immunizations [...] (3rd IS) 4.82 uIU/mL 03/12/2019 Free T4 Rdg547 FREE T4 0.55 ng/dL 03/12/2019 Comp Metabolic Fum896 NA 142 mEq/L 10/12/2018 Comp Metabolic Pwg659 K 4.0 mEq/L 10/12/2018 Comp Metabolic Qop740 CL 105 mEq/L 10/12/2018 Comp Metabolic Sjf455 CO2 21.0 mEq/L 10/12/2018 Comp Metabolic Arp131 AN ION GAP 20 10/12/2018 Comp Metabolic Ppz086 GL UCOSE 105 mg/dL 10/12/2018 Comp Metabolic Fvk898 Cr eat 1.8 mg/dL 10/12/2018 Comp Metabolic Xgv145 eG FR 30 ml/min/1.73m2 10/12 Comp Metabolic Hmq258 BUN 19 mg/dL 10/12/2018 Comp Metabolic Qdq880 B/ C Ratio 10.5 Ratio 10/12/2018 Comp Metabolic Ugn811 CA LCIUM 9.0 mg/dL 10/12/2018 Comp Metabolic Ggj048 AL K PHOS 74 U/L 10/12/2018 Comp Metabolic Bzc849 T(SGOT) 21 U/L 10/12/2018 Comp Metabolic Nmw499 AL T(SGPT) 22 U/L 10/12/2018 Comp Metabolic Igb645 BI LI T 0.4 mg/dL 10/12/2018 Comp Metabolic Grt376 AL BUMIN 3.9 g/dL 10/12/2018 Comp Metabolic Naz098 TP RO 6.1 g/dL 10/12/2018 Comp Metabolic Wbr820 GL OB 2.2 g/dL 10/12/2018 Comp Metabolic Nma586 A/ G Ratio 1.7 Ratio 10/12/2018 Comp Metabolic Oyy290 Os mo 286 mOsmo 10/12/2018 Cbc With [...] 28.0 pg 10/12/2018 Cbc With Differential Ord2 Scre[place]% 16.6 % 10/12/2018 Cbc With Differential Ord2 [...] 1.77 K/ul 10/12/2018 Cbc With Differential Ord2 [place] ABS# 2.4 K/ul 10/12/2018 Cbc With Differential Ord2 Eos ABS# 0.0 K/ul 10/12/2018 Cbc With Differential Ord2 Baso ABS# 0.0 K/ul 10/12/2018 Electrolytes Ord62 NA 140 mEq/L 09/15/2018 Electrolytes Ord62 K 4.2 mEq/L 09/15/2018 Electrolytes Ord62 CL 111 mEq/L 09/15/2018 Electrolytes Ord62 CO2 20.0 mEq/L 09/15/2018 Electrolytes Ord62 ANION GAP 13 09/15/2018 Comp Metabolic Mch355 NA 140 mEq/L 01/10/2018 Comp Metabolic Rdw575 K 3.8 mEq/L 01/10/2018 Comp Metabolic Cxp317 CL 106 mEq/L 01/10/2018 Comp Metabolic Ydo971 CO2 25.0 mEq/L 01/10/2018 Comp Metabolic Mff146 AN ION GAP 13 01/10/2018 Comp Metabolic Xgs609 GL UCOSE 110 mg/dL 01/10/2018 Comp Metabolic Pqa312 Cr eat 1.5 mg/dL 01/10/2018 Comp Metabolic Yoe454 eG FR 37 ml/min/1.73m2 01/10 Comp Metabolic Rpu138 BUN 23 mg/dL 01/10/2018 Comp Metabolic Cwq720 B/ C Ratio 15.3 Ratio 01/10/2018 Comp Metabolic Kej997 CA LCIUM 9.2 mg/dL 01/10/2018 Comp Metabolic Rem342 AL K PHOS 87 U/L 01/10/2018 Comp Metabolic Oil298 T(SGOT) 15 U/L 01/10/2018 Comp Metabolic Kth152 AL T(SGPT) 9 U/L 01/10/2018 Comp Metabolic Hnb422 BI LI T 0.4 mg/dL 01/10/2018 Comp Metabolic Ilo050 AL BUMIN 3.8 g/dL 01/10/2018 Comp Metabolic Fhn956 TP RO 6.2 g/dL 01/10/2018 Comp Metabolic Mvf077 GL OB 2.4 g/dL 01/10/2018 Comp Metabolic Aug086 A/ G Ratio 1.6 Ratio 01/10/2018 Comp Metabolic Chc585 Os mo 284 mOsmo 01/10/2018 C-Reactive Protein [...] 27.6 pg 01/10/2018 Cbc With Differential Ord2 [place]% 15.2 % 01/10/2018 Cbc With Differential Ord2 [...] 1.47 K/ul 01/10/2018 Cbc With Differential Ord2 [place] ABS# 1.0 K/ul 01/10/2018 Cbc With Differential Ord2 Eos ABS# 0.1 K/ul 01/10/2018 Cbc With Differential Ord2 Baso ABS# 0.0 K/ul 01/10/2018 Sed Rate Ord21 ESR 12 mm/hr 01/10/2018 Free T4 Swq066 FREE T4 0.57 ng/dL 12/06/2017 Tsh Ord6 TSH (3rd IS) 7.40 uIU/mL 12/06/2017 C A/B FLU 0546026 Influe nza A Scr Negative 06/22/2017 C A/B FLU 8980134 Influe nza B Scr Negative 06/22/2017 C A/B FLU 1038001 Influe nza Intrp B AG:PRID:PT:NOSE:NOM:IF See Footnote 06/22/2017 Comp Metabolic Pbq330 NA 140 mEq/L 08/30/2016 Comp Metabolic Lms756 K 3.3 mEq/L 08/30/2016 Comp Metabolic Dfu722 CL 104 mEq/L 08/30/2016 Comp Metabolic Rgb724 CO2 26.0 mEq/L 08/30/2016 Comp Metabolic Yib765 AN ION GAP 13 08/30/2016 Comp Metabolic Iob732 GL UCOSE 143 mg/dL 08/30/2016 Comp Metabolic Ebh401 Cr eat 1.3 mg/dL 08/30/2016 Comp Metabolic Knq603 eG FR 43 ml/min/1.73m2 08/30 Comp Metabolic Mzr007 BUN 19 mg/dL 08/30/2016 Comp Metabolic Ojv663 B/ C Ratio 14.3 Ratio 08/30/2016 Comp Metabolic Wuu662 CA LCIUM 10.0 mg/dL 08/30/2016 Comp Metabolic Uff266 AL K PHOS 67 U/L 08/30/2016 Comp Metabolic Fca846 T(SGOT) 28 U/L 08/30/2016 Comp Metabolic Xou569 AL T(SGPT) 43 U/L 08/30/2016 Comp Metabolic Ppu067 BI LI T 0.4 mg/dL 08/30/2016 Comp Metabolic Mtj914 AL BUMIN 4.0 g/dL 08/30/2016 Comp Metabolic Vok663 TP RO 6.2 g/dL 08/30/2016 Comp Metabolic Ykj441 GL OB 2.2 g/dL 08/30/2016 Comp Metabolic Jpo641 A/ G Ratio 1.8 Ratio 08/30/2016 Comp Metabolic Obj074 Os mo 284 mOsmo 08/30/2016 %Hba1C Tqg337 % HbA1c 57514-6 6.1 % 08/30/2016 %Hba1C Exv748 Gluc Ave 128 mg/dL 08/30/2016 Free T4 Vxp273 FREE T4 0.75 ng/dL 06/25/2016 Tsh Ord6 [...] Ord90 Mag 2.1 mg/dL 12/16/2015 Free T4 Hik530 FREE T4 0.92 ng/dL 12/16/2015 Tsh Ord6 [...] 28.5 pg 08/04/2015 Cbc With Differential Ord2 [place]% 6.1 % 08/04/2015 Cbc With Differential Ord2 [...] 0.73 K/ul 08/04/2015 Cbc With Differential Ord2 [place] ABS# 0.5 K/ul 08/04/2015 Cbc With Differential Ord2 Eos ABS# 0.1 K/ul 08/04/2015 Cbc With Differential Ord2 Baso ABS# 0.0 K/ul 08/04/2015 Cbc With Differential Ord2 New Analyzer Notice Please note new ref ranges s tarting 07-09-2015 due to implemntation of new five part differential hematolgy analyzer. 08/04/2015 C-Reactive Protein Qnt Crqnt CRP 0.8 mg/dl 08/04/2015 Comp Metabolic Moq706 NA 139 mEq/L 08/04/2015 Comp Metabolic Fsx145 K 3.4 mEq/L 08/04/2015 Comp Metabolic Vnk491 CL 109 mEq/L 08/04/2015 Comp Metabolic Qnq866 CO2 22.0 mEq/L 08/04/2015 Comp Metabolic Zkx018 AN ION GAP 11 08/04/2015 Comp Metabolic Uxs009 GL UCOSE 177 mg/dL 08/04/2015 Comp Metabolic Ezp724 Cr eat 1.0 mg/dL 08/04/2015 Comp Metabolic Cpu802 eG FR 64 ml/min/1.73m2 08/04 Comp Metabolic Cbz426 BUN 35 mg/dL 08/04/2015 Comp Metabolic Qbu587 B/ C Ratio 36.8 Ratio 08/04/2015 Comp Metabolic Mzy500 CA LCIUM 8.5 mg/dL 08/04/2015 Comp Metabolic Dco794 AL K PHOS 57 U/L 08/04/2015 Comp Metabolic Pik111 T(SGOT) 21 U/L 08/04/2015 Comp Metabolic Qnq553 AL T(SGPT) 63 U/L 08/04/2015 Comp Metabolic Aav937 BI LI T 0.3 mg/dL 08/04/2015 Comp Metabolic Qdv306 AL BUMIN 3.1 g/dL 08/04/2015 Comp Metabolic Ibc527 TP RO 5.1 g/dL 08/04/2015 Comp Metabolic Rsq348 GL OB 2.0 g/dL 08/04/2015 Comp Metabolic Pkg188 A/ G Ratio 1.6 Ratio 08/04/2015 Comp Metabolic Bko933 Os mo 290 mOsmo 08/04/2015 Cpk Ord61 CPK 52 U/L 08/04/2015 Random Urine Protein/Creatinine Ratio Pif0358 U Prot 8.5 mg/dl 05/27/2015 Random Urine Protein/Creatinine Ratio Cvl3234 U CREAT 201.0 mg/dL 05/27/2015 Random Urine Protein/Creatinine Ratio Cbt4659 R MTP/Creat Ratio 0.04 05/27/2015 Urinalysis Ord28 [...] hours from collection if refrigerated) 05/27/2015 Renal Qrw624 NA 136 mEq/L 05/26/2015 Renal Xcn097 K 3.3 mEq/L 05/26/2015 Renal Htn266 CL 99 mEq/L 05/26/2015 Renal Ufb141 CO2 25.0 mEq/L 05/26/2015 Renal Qho016 ANION GAP 15 05/26/2015 Renal Tev738 Osmo 274 mOsmo 05/26/2015 Renal Nto418 GLUCOSE 106 mg/dL 05/26/2015 Renal Glq736 BUN 17 mg/dL 05/26/2015 Renal Rcx196 Creat 1.4 mg/dL 05/26/2015 Renal Amd145 eGFR 40 ml/min/1.73m2 05/26/2015 Renal Vhg369 B/C Ratio 12.0 Ratio 05/26/2015 Renal Nek786 CALCIUM 9.3 mg/dL 05/26/2015 Renal Aio234 PHOS 3.4 mg/dL 05/26/2015 Renal Ssk693 ALBUMIN 3.4 g/dL 05/26/2015 Cbc With Differential [...] Ord2 RDW 14.3 % 04/21/2015 Free T4 Tdo232 FREE T4 0.91 ng/dL 04/21/2015 %Hba1C Qcc844 % HbA1c 86471-4 5.8 % 04/21/2015 %Hba1C Vbo041 Gluc Ave 120 mg/dL 04/21/2015 Comp Metabolic Jnd138 NA 137 mEq/L 04/21/2015 Comp Metabolic Dra639 K 3.6 mEq/L 04/21/2015 Comp Metabolic Kvb081 CL 98 mEq/L 04/21/2015 Comp Metabolic Lat032 CO2 25.0 mEq/L 04/21/2015 Comp Metabolic Aic732 AN ION GAP 18 04/21/2015 Comp Metabolic Xww278 GL UCOSE 83 mg/dL 04/21/2015 Comp Metabolic Vgk621 Cr eat 1.6 mg/dL 04/21/2015 Comp Metabolic Pkc341 eG FR 36 ml/min/1.73m2 04/21 Comp Metabolic Ubx493 BUN 28 mg/dL 04/21/2015 Comp Metabolic Uyz683 B/ C Ratio 17.9 Ratio 04/21/2015 Comp Metabolic Ewb718 CA LCIUM 9.5 mg/dL 04/21/2015 Comp Metabolic Mal738 AL K PHOS 60 U/L 04/21/2015 Comp Metabolic Giy750 T(SGOT) 22 U/L 04/21/2015 Comp Metabolic Uxi250 AL T(SGPT) 10 U/L 04/21/2015 Comp Metabolic Qbl718 BI LI T 0.4 mg/dL 04/21/2015 Comp Metabolic Ffz123 AL BUMIN 4.0 g/dL 04/21/2015 Comp Metabolic Nus834 TP RO 6.8 g/dL 04/21/2015 Comp Metabolic Hgb900 GL OB 2.8 g/dL 04/21/2015 Comp Metabolic Llc691 A/ G Ratio 1.4 Ratio 04/21/2015 Comp Metabolic Xpy159 Os mo 278 mOsmo 04/21/2015 Tsh Ord6 [...] 08/30/2016 Respiratory No cough 11/2016 Respiratory dyspnea 03/11/2016 Genitourinary/Nephrology No dysuria 08/30/2016 Genitourinary/Nephrology No anuria/oliguri [...] Respiratory dyspnea on exertion 10/30/2015 Respiratory dyspnea 10/2015 Gastrointestinal No abdominal pain 10/30/2015 Gastrointestinal [...] No alteration of consciousness 08/04/2015 Psychiatric anxiety 01/2016 Psychiatric depression 0 08/04/2015 Musculoskeletal muscle [...] normal 01/10/2018 None Full Exam - General 1995 Ears/Nose/Throat lips/teeth/gingiva Overall: benign lips 01/10/2018 None [...] level 03/02/2017 None Full Exam - General 1995 Ears/Nose/Throat oral cavity/pharynx/larynx Posterior Pharynx: clear post [...] clear 08/30/2016 None Full Exam - General 1995 Ears/Nose/Throat otoscopic exam Overall: tympanic membranes clear [...] Procedure Codes Date THER/PROPH/DIAG INJ SC/IM CPT-4: 72495 06/22/2017 TRIAMCINOLONE ACET I [place] NOS CPT-4: J3301 06/22/2017 THER/PROPH/DIAG INJ SC/IM CPT-4: 56731 08/04/2015 TRIAMCINOLONE ACET I [place] NOS CPT-4: J3301 08/04/2015 Vital Signs Date Vital 03/12/2019 Blood Pressure 1: 148/88 Code: 8480-6 BMI: 31.4 Code: 75549-2 Heart Rate 1: 66 bpm Height: 5'1" SpO2: 96% Weight: 166 lbs 01/22/2019 Blood Pressure 1: 220/128 Code: 8480-6 Heart Rate 1: 100 bpm SpO2: 98% 10/12/2018 Blood Pressure 1: 110/74 Code: 8480-6 Heart Rate 1: 105 bpm Height: 5'1" SpO2: 95% Weight: 09/13/2018 Blood Pressure 1: 156/86 Code: 8480-6 BMI: 32.3 Code: 53859-0 Heart Rate 1: 90 bpm Height: 5'1" SpO2: 98% Weight: 171 lbs 05/04/2018 Blood Pressure 1: 158/88 Code: 8480-6 BMI: 33.3 Code: 24814-2 Heart Rate 1: 63 bpm Height: 5'1" SpO2: 98% Weight: 176 lbs 01/10/2018 Blood Pressure 1: 138/88 Code: 8480-6 BMI: 31.9 Code: 62406-6 Heart Rate 1: 78 bpm Height: 5'1" SpO2: 99% Weight: 169 lbs 12/06/2017 Blood Pressure 1: 158/98 Code: 8480-6 BMI: 32.3 Code: 51698-3 Heart Rate 1: 60 bpm Height: 5'1" SpO2: 100% Weight: 171 lbs 06/22/2017 Blood Pressure 1: 168/92 Code: 8480-6 BMI: 32.6 Code: 43891-4 Heart Rate 1: 133 bpm Height: 5'1" SpO2: 97% Temperature: 37.6 (C ) / 99.7 (F) Weight: 172 lbs 8 oz 03/02/2017 Blood Pressure 1: 168/90 Code: 8480-6 BMI: 35.0 Code: 87058-9 Heart Rate 1: 80 bpm Height: 5'1" SpO2: 94% Weight: 185 lbs 01/24/2017 Blood Pressure 1: 130/68 Code: 8480-6 BMI: 35.3 Code: 81922-1 Heart Rate 1: 66 bpm Height: 5'1" SpO2: 98% Weight: 187 lbs 10/13/2016 Blood Pressure 1: 136/74 Code: 8480-6 BMI: 35.1 Code: 66114-2 Heart Rate 1: 71 bpm Height: 5'1" SpO2: 97% Weight: 186 lbs 08/30/2016 Blood Pressure 1: 128/80 Code: 8480-6 BMI: 35.0 Code: 59798-3 Heart Rate 1: 75 bpm Height: 5'1" SpO2: 96% Weight: 185 lbs 8 oz 07/02/2016 Blood Pressure 1: 140/78 Code: 8480-6 Heart Rate 1: 63 bpm Height: 5'1" SpO2: 98% 06/24/2016 Blood Pressure 1: 148/100 Code: 8480-6 BMI: 34.2 Code: 86353-6 Heart Rate 1: 110 bpm Height: 5'1" SpO2: 94% Weight: 181 lbs 05/04/2016 Blood Pressure 1: 150/90 Code: 8480-6 Blood Pressure 1: 134/82 Code: 8480-6 BMI: 34.6 Code: 61702-5 Heart Rate 1: 74 bpm Height: 5'1" SpO2: 98% Weight: 183 lbs 04/06/2016 Blood Pressure 1: 156/92 Code: 8480-6 Blood Pressure 1: 158/88 Code: 8480-6 BMI: 34.8 Code: 23213-1 Heart Rate 1: 69 bpm Height: 5'1" SpO2: 97% Weight: 184 lbs 03/18/2016 Blood Pressure 1: 148/90 Code: 8480-6 BMI: 35.1 Code: 34638-7 Heart Rate 1: 106 bpm Height: 5'1" SpO2: 94% Weight: 186 lbs 03/11/2016 Blood Pressure 1: 140/90 Code: 8480-6 BMI: 35.1 Code: 04150-2 Heart Rate 1: 103 bpm Height: 5'1" SpO2: 96% Weight: 186 lbs 02/24/2016 Blood Pressure 1: 130/80 Code: 8480-6 BMI: 34.4 Code: 52800-4 Heart Rate 1: 110 bpm Height: 5'1" SpO2: 96% Weight: 182 lbs 12/16/2015 Blood Pressure 1: 144/98 Code: 8480-6 BMI: 33.8 Code: 72250-9 Heart Rate 1: 97 bpm Height: 5'1" SpO2: 98% Weight: 179 lbs 10/30/2015 Blood Pressure 1: 138/88 Code: 8480-6 BMI: 33.6 Code: 67764-6 Heart Rate 1: 88 bpm Height: 5'1" SpO2: 98% Weight: 178 lbs 09/23/2015 Blood Pressure 1: 152/94 Code: 8480-6 BMI: 32.7 Code: 80383-3 Heart Rate 1: 83 bpm Height: 5'1" SpO2: 97% Weight: 173 lbs 09/10/2015 Blood Pressure 1: 136/82 Code: 8480-6 BMI: 32.1 Code: 08291-0 Heart Rate 1: 105 bpm Height: 5'1" SpO2: 97% Weight: 170 lbs 08/12/2015 Blood Pressure 1: 132/70 Code: 8480-6 BMI: 31.2 Code: 98592-9 Heart Rate 1: 88 bpm Height: 5'1" SpO2: 95% Temperature: 36.7 (C ) / 98.0 (F) Weight: 165 lbs 08/04/2015 Blood Pressure 1: 136/80 Code: 8480-6 BMI: 31.0 Code: 88785-8 Heart Rate 1: 110 bpm Height: 5'1" SpO2: 98% Weight: 164 lbs 05/16/2015 Blood Pressure 1: 138/88 Code: 8480-6 BMI: 32.9 Code: 31911-3 Heart Rate 1: 87 bpm Height: 5'1" SpO2: 90% Weight: 174 lbs 05/12/2015 BMI: 31.7 Code: 71772-5 Height: 5'1" Weight: 168 lbs 04/21/2015 Blood Pressure 1: 124/82 Code: 8480-6 BMI: 32.1 Code: 81553-8 Heart Rate 1: 87 bpm Height: 5'1" [...] of the thyroid 12/06/2017 None hypothyroid Quality security tester marley 12/06/2017 None hypothyroid Onset and Resolution [...] of the thyroid 08/30/2016 None hypothyroid Quality security tester marley 08/30/2016 None hypothyroid Onset and Resolution [...] of the thyroid 05/04/2016 None hypothyroid Quality security tester marley 05/04/2016 None hypothyroid Onset and Resolution [...] of the thyroid 04/06/2016 None hypothyroid Quality security tester marley 04/06/2016 None hypothyroid Onset and Resolution [...] Alleviating Factors medication 12/16/2015 None hypothyroid Quality security tester marley 12/16/2015 None hypothyroid Location at the [...] Encounters Encounter Performer Loca tion Codes Date 33001 EST. PATIENT, LEVEL IV Diagnosis: Other specified hypothyroidism[ICD10: E03.8] Diagnosis: Essential (primary) hypertension[ICD10: I10] Britney Maya MD, [facility] CPT-4: 99628 03/12/2019 ([id number]) Neil nevarez no charge Diagnosis: Essential (primary) hypertension[ICD10: I10] Meghana Maya MD, [facility] CPT-4: 89992 01/22/2019 76235 EST. PATIENT, LEVEL III Diagnosis: Chronic kidney disease, stage 3 (moderate)[ICD10: N18.3] Diagnosis: Essential (primary) hypertension[ICD10: I10] Diagnosis: Encounter for follow-up examination after completed treatment for conditions other than malignant neoplasm[ICD10: Z09] Britney Maya MD, [facility] CPT-4: 06904 10/12/2018 12054 EST. PATIENT, LEVEL III Diagnosis: Hypokalemia[ICD10: E87.6] Diagnosis: Interstitial pulmonary disease, unspecified[ICD10: J84.9] Britney Maya MD, [facility] CPT-4: 56997 09/13/2018 87685 EST. PATIENT, LEVEL IV Diagnosis: Essential (primary) hypertension[ICD10: I10] Diagnosis: Interstitial pulmonary disease, unspecified[ICD10: J84.9] Diagnosis: Chronic kidney disease, stage 3 (moderate)[ICD10: N18.3] Diagnosis: Mixed hyperlipidemia[ICD10: E78.2] Britney Maya MD, [facility] CPT-4: 54777 05/04/2018 65841 EST. PATIENT, LEVEL IV Diagnosis: Essential (primary) hypertension[ICD10: I10] Diagnosis: Interstitial pulmonary disease, unspecified[ICD10: J84.9] Diagnosis: Chronic kidney disease, stage 3 (moderate)[ICD10: N18.3] Diagnosis: Mixed hyperlipidemia[ICD10: E78.2] Britney Maya MD, [facility] CPT-4: 63836 01/10/2018 00216 EST. PATIENT, LEVEL IV Diagnosis: Other specified hypothyroidism[ICD10: E03.8] Diagnosis: Essential (primary) hypertension[ICD10: I10] Britney Maya MD, [facility] CPT-4: 59401 12/06/2017 11200 EST. PATIENT, LEVEL IV Diagnosis: Other malaise[ICD10: R53.81] Diagnosis: Other fatigue[ICD10: R53.83] Britney Maya MD, [facility] CPT-4: 07604 06/22/2017 57364 EST. PATIENT, LEVEL IV Diagnosis: Acute laryngopharyngitis[ICD10: J06.0] Diagnosis: Other acute sinusitis[ICD10: J01.80] Diagnosis: Other allergic rhinitis[ICD10: J30.89] Britney Maya MD, [facility] CPT-4: 84483 03/02/2017 21683 EST. PATIENT, LEVEL IV Diagnosis: Generalized hyperhidrosis[ICD10: R61] Diagnosis: Other acute sinusitis[ICD10: J01.80] Diagnosis: Other fatigue[ICD10: R53.83] Diagnosis: Interstitial pulmonary disease, unspecified[ICD10: J84.9] Britney Maya MD, [facility] CPT-4: 48222 01/24/2017 04855 EST. PATIENT, LEVEL IV Diagnosis: Acute laryngopharyngitis[ICD10: J06.0] Diagnosis: Other acute sinusitis[ICD10: J01.80] Britney Maya MD, [facility] CPT- 4: 83051 10/13/2016 ([id number]) 93694 EST. P ATIENT, LEVEL IV Diagnosis: Essential (primary) hypertension[ICD10: I10] Diagnosis: Drug-induced polyneuropathy[ICD10: G62.0] Diagnosis: Impaired fasting glucose[ICD10: R73.01] Catie Maya MD, [facility] CPT-4: 54179 08/30/2016 83997 EST. PATIENT, LEVEL IV Diagnosis: Pain in thoracic spine[ICD10: M54.6] Diagnosis: Pain in left shoulder[ICD10: M25.512] Diagnosis: Zoster without complications[ICD10: B02.9] Britney Maya MD, [facility] CPT-4: 65133 07/02/2016 29278 EST. PATIENT, LEVEL III Diagnosis: Other specified hypothyroidism[ICD10: E03.8] Diagnosis: Menopausal and female climacteric states[ICD10: N95.1] Diagnosis: Essential (primary) hypertension[ICD10: I10] Britney Maya MD, [facility] CPT-4: 63941 06/24/2016 ([id number]) 75479 EST. P ATIENT, LEVEL IV Diagnosis: Essential (primary) hypertension[ICD10: I10] Diagnosis: Atrophy of thyroid (acquired)[ICD10: E03.4] Diagnosis: Pain in left foot[ICD10: M79.672] Meghana Maya MD, [facility] CPT-4: 50098 05/04/2016 ([id number]) 08508 EST. P ATIENT, LEVEL IV Diagnosis: Essential (primary) hypertension[ICD10: I10] Diagnosis: Pain in left leg[ICD10: M79.605] Diagnosis: Pain in left foot[ICD10: M79.672] Diagnosis: Atrophy of thyroid (acquired)[ICD10: E03.4] Meghana Maya MD, [facility] CPT-4: 69010 04/06/2016 ([id number]) 17044 EST. P ATIENT, LEVEL III Diagnosis: Essential (primary) hypertension[ICD10: I10] Diagnosis: Localized edema[ICD10: R60.0] Catie Maya MD, [facility] CPT- 4: 65216 03/18/2016 ([id number]) 56798 EST. P ATIENT, LEVEL III Diagnosis: Essential (primary) hypertension[ICD10: I10] Diagnosis: Pain in left foot[ICD10: M79.672] Catie Maya MD, [facility] CPT- 4: 28430 03/11/2016 ([id number]) 94675 EST. P ATIENT, LEVEL III Diagnosis: Localized edema[ICD10: R60.0] Diagnosis: Essential (primary) hypertension[ICD10: I10] Catie Maya MD, [facility] CPT-4: 05980 02/24/2016 ([id number]) 61695 EST. P ATIENT, LEVEL IV Diagnosis: Hypothyroidism, unspecified[ICD10: E03.9] Diagnosis: Essential (primary) hypertension[ICD10: I10] Meghana Maya MD, [facility] CPT-4: 36849 12/16/2015 ([id number]) 63751 EST. P ATIENT, LEVEL III Diagnosis: Essential (primary) hypertension[ICD10: I10] Diagnosis: Hypothyroidism, unspecified[ICD10: E03.9] Meghana Maya MD, [facility] CPT-4: 17745 10/30/2015 ([id number]) 19901 EST. P ATIENT, LEVEL IV Diagnosis: Diarrhea, unspecified[ICD10: R19.7] Diagnosis: Essential (primary) hypertension[ICD10: I10] Meghana Maya MD, [facility] CPT-4: 57669 09/23/2015 ([id number]) 57466 EST. P ATIENT, LEVEL III Diagnosis: Essential (primary) hypertension[ICD10: I10] Diagnosis: Diarrhea, unspecified[ICD10: R19.7] Meghana Maya MD, [facility] CPT- 4: 06885 09/10/2015 ([id number]) 63193 EST. P ATIENT, LEVEL III Diagnosis: Acute maxillary sinusitis, unspecified[ICD10: J01.00] Diagnosis: Myositis, unspecified[ICD10: M60.9] Meghana Maya MD, [facility] CPT- 4: 51000 08/12/2015 ([id number] 13620 EST. P ATIENT, LEVEL IV Diagnosis: Essential (primary) hypertension[ICD10: I10] Diagnosis: Pain in left leg[ICD10: M79.605] Diagnosis: Other myositis, multiple sites[ICD10: M60.89] Diagnosis: Hypothyroidism, unspecified[ICD10: E03.9] Meghana Maya MD, C CPT-4: 07872 08/04/2015 99957 EST. PATIENT, LEVEL III Diagnosis: Dyspnea, unspecified[ICD10: R06.00] Diagnosis: Essential (primary) hypertension[ICD10: I10] Meghana Maay MD, C CPT-4: 96354 05/16/2015 ([id number]) 10981 EST. P ATIENT, LEVEL II Diagnosis: Dyspnea, unspecified[ICD10: R06.00] Meghana Maya MD, [facility] CPT- 4: 07617 05/12/2015 ([id number]) [facility] Diagnosis: Essential (primary) hypertension[ICD10: I10] Diagnosis: Impaired fasting glucose[ICD10: R73.01] Diagnosis: Mixed hyperlipidemia[ICD10: E78.2] Diagnosis: Hypothyroidism, unspecified[ICD10: E03.9] Diagnosis: Encounter for screening mammogram for malignant neoplasm of breast[ICD10: Z12.31] Catie Maya MD, [facility] CPT-4: 50962 04/21/2015 Plan of Care Planned Activity Notes [...] ed on previous levels of control. 03/12/2019 Patient Education: Patient Medication Summary Completed 03/12/2019 Care Plan: Tsh Pending 03/12/2019 Care Plan: Free T4 Pending 03/12/2019 Appointment: Nurse Visit 01/22/2019 Patient Education: Patient Medication Summary Completed 01/22/2019 Appointment: Britney Bower WPtel: [address] [place], [place] [address] (30 min) Complex 10/26/2018 Appointment: Britney Bower WPtel: [address] [place], [place] [phone] Nurse Visit 10/17/2018 Visit Plan: Hypertension - [...] to monitor - pt has seen a surgical assistant certified in the 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 Hospital follow up - This was a follow up appointment from the patient's hospitalization during which time Dr. Maya formulated the assessment and plan for the follow up on this patient's medical condition. 10/12/2018 Appointment: Brit[facility] Bower [facility]el[facility] ([facility] min) Complex 10/12/2018 Patient Education: Patient Medication Summary Completed 10/12/2018 Visit Plan: Hypokalemia - will send RX for potassium and monitor labs Interstitial lung disease - pt is to follow up with specialist and notify clinic with any changes in current treatment plan 09/13/2018 Appointment: Britney Bower WPtel[facility] (30 min) Complex 09/13/2018 Patient Education: [...] plan 05/04/2018 Appointment: Brit[facility]Ptel[facility] [phone] [facility] (15 min) Moderate 05/04/2018 Patient Education: Patient Medication Summary Completed 05/04/2018 Patient Education: Cholesterol Management Completed 05/04/2018 Appointment: Lab Draw 02/23/2018 Visit Plan: Hypertension - jodie oliveira iraisruy - continue with current medications, continue with [...] plan 01/10/2018 Appointment: Brit[facility]ower [facility]Ptel[facility] [phone] [facility] (30 min) Complex 01/10/2018 Patient Education: [...] of control. 12/06/2017 Appointment: Britney Bower WPtel: [phone] [facility] (15 min) Moderate 12/06/2017 Patient Education: Patient Medication Summary Completed 12/06/2017 Visit Plan: URI - Pt advised to inc rease fluids, vitamin C. Discussed natural and expected course of this diagnosis and need to alert me if symptoms do not follow expected course, or if any worse. RX sent to patient's pharmacy. 06/22/2017 Appointment: Britney Bower WPtel[facility] [phone] [facility] (15 min) Moderate 06/22/2017 Patient Education: [...] spray. 03/02/2017 Appointment: Brit[facility]ower [facility]Ptel[facility] [phone] [facility] (10 min) Simple 03/02/2017 Patient Education: [...] will complete paperwork for pt to come worm picker - pt is to continue with her specialist at [facility] - Discussed with Dr. Maya - will increase clonidine to BID - pt is to consider referral to dermatology - notify clinic if symptoms do not improve, if they worsen, or with any other questions or concerns. 01/24/2017 Appointment: Britney Bower WPtel: [phone] [facility] (30 min) Complex 01/24/2017 Patient Education: Patient [...] show improvement. 10/13/2016 Appointment: Britney Bower WPtel: [facility] (30 min) Complex 10/13/2016 Patient Education: Patient [...] change in blood pressure readings at home. Sweats/skilled nursing use of steroids-check Hgb A1C Peripheral neuropathy-improved with X59-fedqvy Dr Duran for tarsel tunnel syndrome 08/30/2016 Appointment: Catie Shoemaker [facility]Ptel[facility] [phone] [phone] [place] (15 min) Moderate 08/30/2016 Patient Education: Patient Medication Summary Completed 08/30/2016 Patient Education: Obesity Completed 08/30/2016 Care Plan: %Hba1C RAEANN Guaman : 23095-4 Ordered 08/30/2016 Care Plan: Comp Metabolic Ordered [...] 07/02/2016 Appointment: Brit[facility] Bower [facility]Ptel[facility] [phone] [facility] [place] (30 min) Complex 07/02/2016 Patient Education: [...] 06/24/2016 Appointment: Brit[facility]Ptel[facility] [phone] [facility] (30 min) Complex 06/24/2016 Patient Education: Patient Medication Summary Completed 06/24/2016 Patient Education: Obesity Completed 06/24/2016 Patient Education: Hypertension Completed 06/24/2016 Patient Education: Patient Medication Summary Completed 05/14/2016 Care Plan[facility] 73585[facility]0 Pending 05/14/2016 Visit Plan: Hypertension - well [...] painful. 05/04/2016 Appointment: [phone] [facility] (15 min) Moderate 05/04/2016 Patient Education: Patient [...] medication. 04/06/2016 Appointment: Meghana Maya WPtel: [phone] [facility] [place] (15 min) Moderate 04/06/2016 Patient Education: Patient Medication Summary Completed 04/06/2016 Patient Education: Obesity Completed 04/06/2016 Care Plan: Referral Order SNOMED-CT : [id number] Pending 04/06/2016 Visit Plan: Edema-improved with low [...] acute concerns. 03/18/2016 Appointment: Catie Shoemaker WPtel: [facility]4 [phone] (15 min) Moderate 03/18/2016 Patient Education: Patient [...] xray left foot-recommend she follow up with wood cut engraver at regarding left foot pain/numbness/weakness. Patient has noticed worsening symptoms since decreasing prednisone. 03/11/2016 Appointment: Catie Shoemaker WPtel: [facility]7 [phone] [place] (15 min) Moderate 03/11/2016 Patient Education: Patient Medication Summary Completed 03/11/2016 Patient Education: Obesity Completed 03/11/2016 Appointment: Catie Shoemaker WPtel: [facility]2 [phone] [place] (30 min) Complex 03/09/2016 Visit Plan: [...] 25mg daily 02/24/2016 Appointment: Catie Shoemaker WPtel: [phone] (15 min) Moderate 02/24/2016 Patient Education: Patient Medication Summary Completed 02/24/2016 Patient Education: Obesity Completed 02/24/2016 Patient Education: Hypertension Completed 02/24/2016 Appointment: Meghana Maya WPtel: [facility]8 [facility]66[facility] (15 min) Moderate 02/23/2016 Visit Plan: [...] control. 12/16/2015 Appointment: Meghana Maya WPtel: [phone] [facility]66[facility] (15 min) Moderate 12/16/2015 Patient Education: Patient [...] min) Complex 10/23/2015 Appointment: Meghana Maya WPtel: [address] [place], [place] [address] (15 min) Moderate 10/23/2015 Visit Plan: Hypertension [...] home. 09/10/2015 Appointment: [phone] [facility] (15 min) Moderate 09/10/2015 Patient Education: Patient [...] 08/04/2015 Appointment: (30 min) Complex 07/24/2015 Appointment: Zulma Meghana [facility]Ptel[facility] [phone] [facility] (15 min) Moderate 07/24/2015 Appointment: Lab Draw [...] Completed 04/21/2015 Care Plan: SCREENINGMAMMOGRAPHYDIGITAL LOINC : 50695-7 Ordered 04/21/2015 Appointment: Meghana Maya WPtel: [facility] [place] ([place] New Patient 04/01/2015 Referral: Sharon Duran Referral Appointment Requested Instructions Comment [phone] - fax f or our office increase [...] SPECIALIZES IN FOOT AND ANKLE DISEASE AT [address] INCREASE THE METOPROLOL TO 1.5 PILLS [...] in blood pressure readings at home. 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 Patient has [...] will complete paperwork for pt to come worm picker - pt is to continue with her specialist at [facility] - Discussed with Dr. Maya - will increase clonidine to BID - pt is to consider referral to dermatology - notify clinic if symptoms do not improve, if they worsen, or with any other questions or concerns. probiotic - culturel Accipiter Radar, probiotic pearls, etc - take three times [...] to monitor - pt has seen a surgical assistant certified in the past and does not want [...]
--- OUTSIDE RECORDS SUMMARY | 2019-08-14 06:12 | XMS REPORT | CCD ---
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 04/21/[address]: [id number] Never smoker 04/21/2015 Alcohol history Unknown occasionally drinks alcohol 04/21/2015 Allergies, Adverse Reactions, Alerts Substance Reaction Codes Entered Date Inactivated Date Status WQNORGY-DBS-ARS REDU CTASE INHIBITORS myalgias Unknown 016 No Inactive Date Active Past Medical History Illness Codes Condition Status Onset Date Resolved Date Hypothyroidism, unsp ecified ICD-9: 244.9 ICD-10: E03.9 Active 04/05/2016 Unknown Other specified hypo thyroidism ICD-9: 244.8 ICD-10: E03.8 Active 06/23/2016 Unknown Essential (primary) hypertension ICD-9: 401.1 ICD-10: I10 Active 08/30/2016 Unknown Chronic kidney disea se, stage 3 [...] Condition Codes Effectiv e Dates Condition Status Hypothyroidism, unsp ecified ICD-9: 244.9 ICD-10: E03.9 04/05/2016 Active Other specified hypo thyroidism ICD-9: 244.8 ICD-10: E03.8 06/23/2016 Active Essential (primary) hypertension ICD-9: 401.1 ICD-10: I10 08/30/2016 Active Chronic kidney disea se, stage 3 [...] Fill Instructions losartan 50 mg tablet RxNorm: 414667 1 Tablet(s) PO daily 02/06/2019 06/05/2019 Active oxybutynin chloride 5 mg tablet RxNorm: 185773 Tablet(s) TAKE ONE-ANGEL LF TABLET BY MOUTH DAILY 02/06/2019 06/05/2019 Active metoprolol succinate ER 50 mg tablet,extended release 24 hr RxNorm: 475170 1 Tablet(s) PO BID 02/06/2019 06/05/2019 Active oxybutynin chloride 5 mg tablet RxNorm: 743550 TAKE ONE-HALF TABLET BY MOUTH DAILY 01/30/2019 02/05/2019 In active metoprolol succinate ER 100 mg tablet,extended release 24 hr RxNorm: 121916 1 Tablet(s) PO daily 01/22/2019 01/21/2019 Inactive metoprolol succinate ER 50 mg tablet,extended release 24 hr RxNorm: 978682 1 Tablet(s) PO daily 01/22/2019 02/05/2019 Inactive metoprolol succinate ER 100 mg tablet,extended release 24 hr RxNorm: 661941 1 Tablet(s) PO daily 01/22/2019 01/22/2019 Inactive oxybutynin chloride 5 mg tablet RxNorm: 219417 1/2 Tablet(s) PO hari y 01/04/2019 01/29/2019 In active oxybutynin chloride 5 mg tablet RxNorm: 798014 1/2 Tablet(s) PO hari y 01/04/2019 01/03/2019 In active Lipitor 20 mg tablet RxNorm: 193159 TAKE ONE TABLET BY MOUTH DAILY 12/04/2018 06/01/2019 Ac tive venlafaxine ER 150 m g capsule,extended release 24 hr RxNorm: 398819 TAKE ONE CAPSULE BY MOUTH DAILY 12/04/2018 06/01/2019 Active losartan 25 mg tablet RxNorm: 536465 TAKE ONE TABLET BY MOUTH DAILY 12/04/2018 01/24/2019 In active nystatin 100,000 uni t/mL oral suspension RxNorm: 292158 4 Unit(s) PO QID 10/17/2018 10/23/2018 In active nystatin 100,000 uni t/mL oral suspension RxNorm: 191042 4 Unit(s) PO QID 10/17/2018 10/16/2018 In active metoprolol succinate ER 50 mg tablet,extended release 24 hr RxNorm: 801916 1 Tablet(s) PO daily 10/17/2018 01/19/2019 Inactive potassium chloride E R 10 mEq tablet,extended release RxNorm: 841689 Tablet(s) TAKE ONE TABLET BY MOUTH DAILY 09/15/2018 03/13/2019 Active candesartan 4 mg tablet RxNorm: 901118 1 Tablet(s) PO daily 09/15/2018 10/14/2018 Inactive clonidine HCl 0.1 mg tablet RxNorm: 484152 TAKE ONE TABLET BY [facility] TWICE A DAY 09/14/2018 02/10/2019 In active losartan 25 mg tablet RxNorm: 439313 TAKE ONE TABLET BY MOUTH DAILY 09/14/2018 11/12/2018 In active clonidine HCl 0.1 mg tablet RxNorm: 931334 Tablet(s) TAKE ONE TA BLET BY MOUTH AT BEDTIME 09/13/2018 No Stop Date Active venlafaxine ER 150 m g capsule,extended release 24 hr RxNorm: 016724 TAKE ONE CAPSULE BY MOUTH DAILY 05/15/2018 11/10/2018 Inactive Lipitor 20 mg tablet RxNorm: 853931 TAKE ONE TABLET BY MOUTH DAILY 05/15/2018 11/10/2018 In active losartan 25 mg tablet RxNorm: 476703 TAKE ONE TABLET BY MOUTH DAILY 04/17/2018 07/14/2018 In active losartan 25 mg tablet RxNorm: 645621 TAKE ONE TABLET BY MOUTH DAILY 04/17/2018 04/16/2018 In active Lipitor 20 mg tablet RxNorm: 427253 1 Tablet(s) PO daily 01/12/2018 01/11/2018 Inactive Lipitor 20 mg tablet RxNorm: 563109 1 Tablet(s) PO daily 01/12/2018 05/11/2018 Inactive clonidine HCl 0.1 mg tablet RxNorm: 012146 TAKE ONE TABLET BY [facility] TWICE A DAY 01/04/2018 07/02/2018 In active potassium chloride E R 10 mEq tablet,extended release RxNorm: 632057 TAKE ONE TABLET BY MOUTH DAILY 01/04/2018 09/12/2018 Inactive losartan 25 mg tablet RxNorm: 445475 TAKE ONE TABLET BY MOUTH DAILY 01/03/2018 04/02/2018 In active levothyroxine 50 mcg tablet RxNorm: 799602 1 Tablet(s) PO daily 12/08/2017 09/12/2018 Inactive losartan 25 mg tablet RxNorm: 193527 1 Tablet(s) PO daily 12/06/2017 01/02/2018 Inactive venlafaxine ER 150 m g capsule,extended release 24 hr RxNorm: 852990 TAKE ONE CAPSULE BY MOUTH DAILY 12/06/2017 05/04/2018 Inactive metoprolol succinate ER 50 mg tablet,extended release 24 hr RxNorm: 246518 TAKE ONE TABLET BY MOUTH DAILY 08/29/2017 01/25/2018 Inactive metoprolol succinate ER 50 mg tablet,extended release 24 hr RxNorm: 131441 TAKE ONE TABLET BY MOUTH DAILY 08/29/2017 08/28/2017 Inactive metoprolol succinate ER 50 mg tablet,extended release 24 hr RxNorm: 835876 TAKE ONE TABLET BY MOUTH DAILY 08/29/2017 08/28/2017 Inactive Tamiflu 75 mg capsule RxNorm: 685257 1 Capsule(s) PO BID 06/22/2017 06/26/2017 Inactive Kenalog 40 mg/mL jenna pension for injection RxNorm: 3056895 1.5 Milliliter(s) In j 06/22/2017 06/22/2017 In active clonidine HCl 0.1 mg tablet RxNorm: 844637 TAKE ONE TABLET BY [facility] TWICE A DAY 06/06/2017 12/02/2017 In active potassium chloride E R 10 mEq tablet,extended release RxNorm: 117112 TAKE ONE TABLET BY MOUTH DAILY 06/06/2017 12/02/2017 Inactive venlafaxine ER 150 m g capsule,extended release 24 hr RxNorm: 813837 TAKE ONE CAPSULE BY MOUTH DAILY 05/23/2017 11/18/2017 Inactive Zithromax 500 mg tablet RxNorm: 481829 1 Tablet(s) PO daily 05/18/2017 05/22/2017 Inactive potassium chloride E R 10 mEq tablet,extended release RxNorm: 255404 TAKE ONE TABLET BY MOUTH DAILY 04/21/2017 05/20/2017 Inactive potassium chloride E R 10 mEq tablet,extended release RxNorm: 869399 TAKE ONE TABLET BY MOUTH DAILY 03/16/2017 04/14/2017 Inactive Zithromax Z-Jacek 250 mg tablet RxNorm: 787658 1 Tablet(s) PO UD 03/02/2017 06/21/2017 Inactive venlafaxine ER 150 m g capsule,extended release 24 hr RxNorm: 068896 Capsule(s) TAKE ONE CAPSULE BY MOUTH DAILY 02/17/2017 02/16/2017 Inactive venlafaxine ER 150 m g capsule,extended release 24 hr RxNorm: 180448 TAKE ONE CAPSULE BY MOUTH DAILY 02/17/2017 05/14/2018 Inactive clonidine HCl 0.1 mg tablet RxNorm: 149008 TAKE ONE TABLET BY [facility] EVERY NIGHT AT BEDTIME 02/14/2017 01/03/2018 Inactive metoprolol succinate ER 50 mg tablet,extended release 24 hr RxNorm: 621385 TAKE ONE TABLET BY MOUTH DAILY 02/14/2017 08/12/2017 Inactive Protonix 40 mg table t,delayed release RxNorm: 534286 TAKE ONE TABLET BY [facility] DAILY WHILE ON PREDNISONE 01/25/2017 09/12/2018 Inactive Zithromax Z-Jacek 250 mg tablet RxNorm: 432751 1 Tablet(s) PO UD 01/24/2017 01/03/2018 Inactive potassium chloride E R 10 mEq tablet,extended release RxNorm: 930278 TAKE ONE TABLET BY MOUTH DAILY 01/17/2017 03/15/2017 Inactive clonidine HCl 0.1 mg tablet RxNorm: 326966 TAKE ONE TABLET BY [facility] EVERY NIGHT AT BEDTIME 01/17/2017 02/13/2017 Inactive potassium chloride E R 10 mEq tablet,extended release RxNorm: 060838 TAKE ONE TABLET BY MOUTH DAILY 12/16/2016 01/14/2017 Inactive venlafaxine ER 150 m g capsule,extended release 24 hr RxNorm: 859017 TAKE ONE CAPSULE BY MOUTH DAILY 11/18/2016 02/15/2017 Inactive clonidine HCl 0.1 mg tablet RxNorm: 824611 TAKE ONE TABLET BY [facility] EVERY NIGHT AT BEDTIME 11/08/2016 01/06/2017 Inactive clonidine HCl 0.1 mg tablet RxNorm: 707021 1 Tablet(s) BID 10/19/2016 01/16/2017 Inactive potassium chloride E R 10 mEq tablet,extended release RxNorm: 823102 TAKE ONE TABLET BY MOUTH DAILY 10/15/2016 11/13/2016 Inactive Zithromax Z-Jacek 250 mg tablet RxNorm: 606326 1 Tablet(s) PO UD 10/13/2016 01/03/2018 Inactive potassium chloride E R 10 mEq tablet,extended release RxNorm: 706006 TAKE ONE TABLET BY MOUTH DAILY 10/12/2016 10/14/2016 Inactive potassium chloride E R 10 mEq tablet,extended release RxNorm: 490172 Tablet(s) BID TAKE ONE TABLET BY MOUTH TWICE DAILY 09/17/2016 10/11/2016 Inactive potassium chloride E R 10 mEq tablet,extended release RxNorm: 201193 TAKE ONE TABLET BY MOUTH DAILY 09/13/2016 09/16/2016 Inactive clonidine HCl 0.1 mg tablet RxNorm: 876913 Tablet(s) TAKE ONE TA BLET BY MOUTH EVERY NIGHT AT BEDTIME 08/12/2016 10/18/2016 Inactive gabapentin 300 mg ca psule RxNorm: 865709 1 Capsule(s) PO [facility] 08/10/2016 No Stop Date Active venlafaxine ER 150 m g capsule,extended release 24 hr RxNorm: 781581 TAKE ONE CAPSULE BY MOUTH DAILY 08/09/2016 11/06/2016 Inactive metoprolol succinate ER 50 mg tablet,extended release 24 hr RxNorm: 352020 TAKE ONE TABLET BY MOUTH DAILY 07/29/2016 01/24/2017 Inactive clonidine HCl 0.1 mg tablet RxNorm: 086305 TAKE ONE TABLET BY [facility] EVERY NIGHT AT BEDTIME 07/21/2016 08/11/2016 Inactive potassium chloride E R 10 mEq tablet,extended release RxNorm: 778794 TAKE ONE TABLET BY MOUTH DAILY 07/14/2016 09/11/2016 Inactive Prescriber not associated w ith this practice or location acyclovir 400 mg tablet RxNorm: 639820 2 Tablet(s) PO QID 07/02/2016 07/11/2016 Inactive cyclobenzaprine 5 mg tablet RxNorm: 623491 1-2 Tablet(s) PO TID as needed 07/02/2016 07/06/2016 In active capsaicin 0.1 % topi reagan cream RxNorm: 731470 1 Application TOP TID as needed 07/02/2016 09/12/2018 In active Protonix 40 mg table t,delayed release RxNorm: 987254 TAKE ONE TABLET BY [facility] DAILY WHILE ON PREDNISONE 06/29/2016 12/25/2016 Inactive clonidine HCl 0.1 mg tablet RxNorm: 197972 1 Tablet(s) PO QHS 06/25/2016 07/20/2016 Inactive calcium carbonate 50 0 mg calcium (1,250 mg) tablet RxNorm: 959740 TAKE ONE TABLET BY MOUTH DAILY WHILE ON PREDNISONE. MAY STOP TAKING WHEN PREDNISONE IS COMPLETE 06/01/2016 09/12/2018 In active Vitamin D3 1,000 uni t tablet RxNorm: 688918 1 Tablet(s) PO daily . May stop taking once prednisone is complete. 04/26/2016 09/12/2018 Inactive metoprolol succinate ER 50 mg tablet,extended release 24 hr RxNorm: 529560 1.5 Tablet(s) PO daily 04/06/2016 06/23/2016 Inactive prednisone 10 mg tablet RxNorm: 346152 1 Tablet(s) PO daily 04/02/2016 06/21/2017 Inactive metoprolol succinate ER 50 mg tablet,extended release 24 hr RxNorm: 297955 1 Tablet(s) PO daily 03/18/2016 04/05/2016 Inactive amlodipine 10 mg tablet RxNorm: 121749 1/2 Tablet(s) PO daily 02/24/2016 06/21/2016 Inactive metoprolol succinate ER 25 mg tablet,extended release 24 hr RxNorm: 246040 1 Tablet(s) PO daily 02/24/2016 03/16/2016 Inactive calcium carbonate 50 0 mg calcium (1,250 mg) tablet RxNorm: 581628 TAKE ONE TABLET BY MOUTH DAILY WHILE ON PREDNISONE. MAY STOP TAKING WHEN PREDNISONE IS COMPLETE 02/16/2016 05/15/2016 In active Protonix 40 mg table t,delayed release RxNorm: 491324 TAKE ONE TABLET BY [facility] DAILY WHILE ON PREDNISONE 02/10/2016 05/09/2016 Inactive venlafaxine ER 150 m g capsule,extended release 24 hr RxNorm: 762233 Capsule(s) TAKE ONE CAPSULE BY MOUTH DAILY 12/10/2015 04/07/2016 Inactive calcium carbonate 50 0 mg calcium (1,250 mg) tablet RxNorm: 124965 1 Tablet(s) PO daily 12/01/2015 01/29/2016 Inactive Vitamin D3 1,000 uni t tablet RxNorm: 711532 1 Tablet(s) PO daily 12/01/2015 03/29/2016 Inactive levothyroxine 50 mcg tablet RxNorm: 277205 1 Tablet(s) PO daily 12/01/2015 11/24/2016 Inactive amlodipine 10 mg tablet RxNorm: 403474 1 Tablet(s) PO daily 11/19/2015 11/18/2015 Inactive amlodipine 10 mg tablet RxNorm: 216617 1 Tablet(s) PO daily 11/19/2015 02/23/2016 Inactive amlodipine 5 mg tablet RxNorm: 211192 1 Tablet(s) PO daily 11/17/2015 11/18/2015 Inactive venlafaxine ER 150 m g capsule,extended release 24 hr RxNorm: 021040 TAKE ONE CAPSULE BY MOUTH DAILY 11/13/2015 12/09/2015 Inactive Protonix 40 mg table t,delayed release RxNorm: 769581 1 Tablet(s) PO daily while on prednisone 2015 02/09/2016 Inactive prednisone 10 mg tablet RxNorm: 891564 2 Tablet(s) PO UD 10/30/2015 04/01/2016 Inactive 60mg for 2 days, then 50mg for 2 days, then 40mg for 2 days, then 30mg for 2 days, then 20mg for 2 days, then 10mg for 2 days, then 5mg for 2 days potassium chloride E R 10 mEq tablet,extended release RxNorm: 577943 TAKE ONE TABLET BY MOUTH DAILY 09/22/2015 12/19/2015 Inactive venlafaxine ER 150 m g capsule,extended release 24 hr RxNorm: 306052 TAKE ONE CAPSULE BY MOUTH DAILY 09/08/2015 11/06/2015 Inactive cefdinir 300 mg capsule RxNorm: 989895 1 Capsule(s) PO BID 08/20/2015 08/22/2015 Inactive cefdinir 300 mg capsule RxNorm: 404910 1 Capsule(s) PO BID 08/12/2015 08/18/2015 Inactive Kenalog 40 mg/mL jenna pension for injection RxNorm: 5346900 1 Milliliter(s) Inj 08/04/2015 08/04/2015 In active triamterene 37.5 mg- hydrochlorothiazide 25 mg tablet RxNorm: 526711 1 Tablet(s) PO BID 06/17/2015 08/03/2015 Inactive potassium chloride E R 10 mEq tablet,extended release RxNorm: 322992 1 Tablet(s) PO daily 05/30/2015 08/03/2015 Inactive Levaquin 250 mg tablet RxNorm: 235961 Tablet(s) PO UD 500 mg day one, then 250 mg day 2-7 05/27/2015 08/03/2015 Inactive prednisone 10 mg tablet RxNorm: 000831 Tablet(s) PO UD 05/27/2015 10/29/2015 Inactive 60mg for 2 days, then 50mg for 2 days, then 40mg for 2 days, then 30mg for 2 days, then 20mg for 2 days, then 10mg for 2 days, then 5mg for 2 days albuterol sulfate 1. 25 mg/3 mL solution for nebulization RxNorm: 502772 3 Milliliter(s) INH Q4-6H as needed dyspnea 05/23/2015 09/12/2018 Inactive Zithromax 500 mg tablet RxNorm: 362528 1 Tablet(s) PO daily 05/16/2015 05/15/2015 Inactive Zithromax 500 mg tablet RxNorm: 274180 1 Tablet(s) PO daily 05/16/2015 05/20/2015 Inactive prednisone 20 mg tablet RxNorm: 034181 3 Tablet(s) PO daily 05/12/2015 05/16/2015 Inactive venlafaxine ER 150 m g capsule,extended release 24 hr RxNorm: 043871 TAKE ONE CAPSULE BY MOUTH DAILY 05/12/2015 08/09/2015 Inactive Keflex 500 mg capsule RxNorm: 730822 1 Capsule(s) PO TID 05/12/2015 05/18/2015 Inactive simvastatin 20 mg ta blet RxNorm: 304259 1 Tablet(s) PO daily 04/10/2015 04/09/2015 Inactive simvastatin 20 mg ta blet RxNorm: 066906 1 Tablet(s) PO daily 04/10/2015 08/11/2015 Inactive venlafaxine ER 150 m g capsule,extended release 24 hr RxNorm: 376558 TAKE ONE CAPSULE BY MOUTH DAILY 04/08/2015 05/07/2015 Inactive amlodipine 5 mg tablet RxNorm: 225720 1 Tablet(s) PO daily 03/07/2015 03/06/2015 Inactive amlodipine 5 mg tablet RxNorm: 325568 1 Tablet(s) PO daily 03/07/2015 07/04/2015 Inactive venlafaxine ER 150 m g capsule,extended release 24 hr RxNorm: 762840 1 Capsule(s) PO daily 01/29/2015 03/29/2015 Inactive Co Q-10 oral RxNorm: 54202 oral No Start Date Active gabapentin 100 mg ca psule RxNorm: 314540 1 Capsule(s) PO QAM No Start Date Active albuterol sulfate 1. 25 mg/3 mL solution for nebulization RxNorm: 424312 3 Milliliter(s) INH Q4-6H as needed dyspnea No Start Date 05/22/2015 Inactive levothyroxine 50 mcg tablet RxNorm: 236380 1 Tablet(s) PO daily No Start Date 11/30/2015 Inactive metoprolol succinate ER 50 mg tablet,extended release 24 hr RxNorm: 916458 1 Tablet(s) PO daily No Start Date 09/12/2018 Inactive gabapentin 300 mg ca psule RxNorm: 748238 1 Capsule(s) PO QHS No Start Date 08/09/2016 Inactive vitamin B complex oral RxNorm: 43729 oral No Start Date 09/12/2018 Inactive Vitamin D3 1,000 uni t tablet RxNorm: 921924 1 Tablet(s) PO daily No Start Date 11/30/2015 Inactive Protonix 40 mg table t,delayed release RxNorm: 752334 1 Tablet(s) PO daily while on prednisone No Start Date 10/30/2015 Inactive calcium carbonate oral RxNorm: oral No Start Date 11/30/2015 Inactive potassium chloride E R 10 mEq tablet,extended release RxNorm: 698754 1 Tablet(s) PO daily No Start Date 05/29/2015 Inactive Levaquin 250 mg tablet RxNorm: 932608 Tablet(s) PO UD 500 mg day one, then 250 mg day 2-7 No Start Date 05/26/2015 Inactive triamterene 37.5 mg- hydrochlorothiazide 25 mg tablet RxNorm: 157301 1 Tablet(s) PO BID No Start Date 06/16/2015 Inactive prednisone 10 mg tablet RxNorm: 329275 Tablet(s) PO UD No Start Date 05/26/2015 Inactive 60mg for 2 days, then 50mg for 2 days, then 40mg for 2 days, then 30mg for 2 days, then 20mg for 2 days, then 10mg for 2 days, then 5mg for 2 days venlafaxine ER 150 m g capsule,extended release 24 hr RxNorm: 868122 1 Capsule(s) PO daily No Start Date 01/28/2015 Inactive Medication Administered Medication Codes Instruc tions Start Date Status Kenalog 40 mg/mL suspension for injection RxNorm: 9375250 1.5Milliliter 06/22/2017 No longer Active Kenalog 40 mg/mL suspension for injection RxNorm: 6269246 1Milliliter 08/04/2015 N o longer Active Immunizations No Immunization data Assessments Condition Codes Effectiv e Dates Essential (primary) hypertension ICD -10: I10 ICD-9: 401.1 01/22/2019 Encounter for follow-up examination afte r completed treatment for conditions other than malignant neoplasm ICD-10: Z09 ICD-9: V67.9 10/12/2018 Chronic kidney disease, stage 3 (moderate) ICD-10: N18.3 ICD-9: 585.3 10/12/2018 Interstitial pulmonary disease, unspecified ICD-10: J84.9 ICD-9: 515 09/13/2018 Hypokalemia ICD-10: E87.6 ICD-9: 276.8 09/13/2018 Mixed hyperlipidemia ICD-10: E78.2 ICD-9: 272.2 05/04/2018 Other specified hypothyroidism ICD-1 0: E03.8 ICD-9: 244.8 12/06/2017 Other fatigue ICD-10: [...] Reason For Visit Effective Dates Notes hypertension 01/22/2019 Hospital Follow Up 10/12/2018 abnormal [...] Observation Code Item Item Code Result Date Free T4 Usr077 FREE T4 0.55 ng/dL 03/12/2019 Comp Metabolic Nur008 NA 142 mEq/L 10/12/2018 Comp Metabolic Dpz220 K 4.0 mEq/L 10/12/2018 Comp Metabolic Uor485 CL 105 mEq/L 10/12/2018 Comp Metabolic Fcr379 CO2 21.0 mEq/L 10/12/2018 Comp Metabolic Psq231 AN ION GAP 20 10/12/2018 Comp Metabolic Ank213 GL UCOSE 105 mg/dL 10/12/2018 Comp Metabolic Pbh099 Cr eat 1.8 mg/dL 10/12/2018 Comp Metabolic Lgf408 eG FR 30 ml/min/1.73m2 10/12 Comp Metabolic Wwd397 BUN 19 mg/dL 10/12/2018 Comp Metabolic Zde349 B/ C Ratio 10.5 Ratio 10/12/2018 Comp Metabolic Tlo768 CA LCIUM 9.0 mg/dL 10/12/2018 Comp Metabolic Ppl977 AL K PHOS 74 U/L 10/12/2018 Comp Metabolic Vro587 T(SGOT) 21 U/L 10/12/2018 Comp Metabolic Icp470 AL T(SGPT) 22 U/L 10/12/2018 Comp Metabolic Hsk800 BI LI T 0.4 mg/dL 10/12/2018 Comp Metabolic Rsb905 AL BUMIN 3.9 g/dL 10/12/2018 Comp Metabolic Rug177 TP RO 6.1 g/dL 10/12/2018 Comp Metabolic Ref748 GL OB 2.2 g/dL 10/12/2018 Comp Metabolic Dcy151 A/ G Ratio 1.7 Ratio 10/12/2018 Comp Metabolic Xjo873 Os mo 286 mOsmo 10/12/2018 Cbc With [...] 28.0 pg 10/12/2018 Cbc With Differential Ord2 [place]% 16.6 % 10/12/2018 Cbc With Differential Ord2 [...] 1.77 K/ul 10/12/2018 Cbc With Differential Ord2 [place] ABS# 2.4 K/ul 10/12/2018 Cbc With Differential Ord2 Eos ABS# 0.0 K/ul 10/12/2018 Cbc With Differential Ord2 Baso ABS# 0.0 K/ul 10/12/2018 Electrolytes Ord62 NA 140 mEq/L 09/15/2018 Electrolytes Ord62 K 4.2 mEq/L 09/15/2018 Electrolytes Ord62 CL 111 mEq/L 09/15/2018 Electrolytes Ord62 CO2 20.0 mEq/L 09/15/2018 Electrolytes Ord62 ANION GAP 13 09/15/2018 Comp Metabolic Xrr426 NA 140 mEq/L 01/10/2018 Comp Metabolic Ecp121 K 3.8 mEq/L 01/10/2018 Comp Metabolic Njr864 CL 106 mEq/L 01/10/2018 Comp Metabolic Xhj155 CO2 25.0 mEq/L 01/10/2018 Comp Metabolic Agw578 AN ION GAP 13 01/10/2018 Comp Metabolic Ylx739 GL UCOSE 110 mg/dL 01/10/2018 Comp Metabolic Epq775 Cr eat 1.5 mg/dL 01/10/2018 Comp Metabolic Yrf103 eG FR 37 ml/min/1.73m2 01/10 Comp Metabolic Cmv586 BUN 23 mg/dL 01/10/2018 Comp Metabolic Vfz950 B/ C Ratio 15.3 Ratio 01/10/2018 Comp Metabolic Smr616 CA LCIUM 9.2 mg/dL 01/10/2018 Comp Metabolic Rsr962 AL K PHOS 87 U/L 01/10/2018 Comp Metabolic Edt795 T(SGOT) 15 U/L 01/10/2018 Comp Metabolic Klf299 AL T(SGPT) 9 U/L 01/10/2018 Comp Metabolic Vww641 BI LI T 0.4 mg/dL 01/10/2018 Comp Metabolic Mih107 AL BUMIN 3.8 g/dL 01/10/2018 Comp Metabolic Lsj823 TP RO 6.2 g/dL 01/10/2018 Comp Metabolic Ssg839 GL OB 2.4 g/dL 01/10/2018 Comp Metabolic Pfo415 A/ G Ratio 1.6 Ratio 01/10/2018 Comp Metabolic Efy496 Os mo 284 mOsmo 01/10/2018 C-Reactive Protein [...] 27.6 pg 01/10/2018 Cbc With Differential Ord2 [place]% 15.2 % 01/10/2018 Cbc With Differential Ord2 [...] 1.47 K/ul 01/10/2018 Cbc With Differential Ord2 [place] ABS# 1.0 K/ul 01/10/2018 Cbc With Differential Ord2 Eos ABS# 0.1 K/ul 01/10/2018 Cbc With Differential Ord2 Baso ABS# 0.0 K/ul 01/10/2018 Sed Rate Ord21 ESR 12 mm/hr 01/10/2018 Free T4 Njq588 FREE T4 0.57 ng/dL 12/06/2017 Tsh Ord6 TSH (3rd IS) 7.40 uIU/mL 12/06/2017 C A/B FLU 1129903 Influe nza A Scr Negative 06/22/2017 C A/B FLU 3248674 Influe nza B Scr Negative 06/22/2017 C A/B FLU 4095699 Influe nza Intrp B AG:PRID:PT:NOSE:NOM:IF See Footnote 06/22/2017 Comp Metabolic Olj212 NA 140 mEq/L 08/30/2016 Comp Metabolic Kye603 K 3.3 mEq/L 08/30/2016 Comp Metabolic Ntt115 CL 104 mEq/L 08/30/2016 Comp Metabolic Aya817 CO2 26.0 mEq/L 08/30/2016 Comp Metabolic Puo034 AN ION GAP 13 08/30/2016 Comp Metabolic Olu172 GL UCOSE 143 mg/dL 08/30/2016 Comp Metabolic Aby315 Cr eat 1.3 mg/dL 08/30/2016 Comp Metabolic Pwk670 eG FR 43 ml/min/1.73m2 08/30 Comp Metabolic Giq754 BUN 19 mg/dL 08/30/2016 Comp Metabolic Gqm239 B/ C Ratio 14.3 Ratio 08/30/2016 Comp Metabolic Ubd071 CA LCIUM 10.0 mg/dL 08/30/2016 Comp Metabolic Wqv816 AL K PHOS 67 U/L 08/30/2016 Comp Metabolic Wgf832 T(SGOT) 28 U/L 08/30/2016 Comp Metabolic Fmk787 AL T(SGPT) 43 U/L 08/30/2016 Comp Metabolic Wke798 BI LI T 0.4 mg/dL 08/30/2016 Comp Metabolic Dey976 AL BUMIN 4.0 g/dL 08/30/2016 Comp Metabolic Rfj465 TP RO 6.2 g/dL 08/30/2016 Comp Metabolic Onz592 GL OB 2.2 g/dL 08/30/2016 Comp Metabolic Yiw346 A/ G Ratio 1.8 Ratio 08/30/2016 Comp Metabolic Rfm055 Os mo 284 mOsmo 08/30/2016 %Hba1C Gve691 % HbA1c 72223-7 6.1 % 08/30/2016 %Hba1C Npo188 Gluc Ave 128 mg/dL 08/30/2016 Free T4 Kwu625 FREE T4 0.75 ng/dL 06/25/2016 Tsh Ord6 [...] Ord90 Mag 2.1 mg/dL 12/16/2015 Free T4 Dvw257 FREE T4 0.92 ng/dL 12/16/2015 Tsh Ord6 [...] 28.5 pg 08/04/2015 Cbc With Differential Ord2 [place]% 6.1 % 08/04/2015 Cbc With Differential Ord2 [...] 0.73 K/ul 08/04/2015 Cbc With Differential Ord2 [place] ABS# 0.5 K/ul 08/04/2015 Cbc With Differential Ord2 Eos ABS# 0.1 K/ul 08/04/2015 Cbc With Differential Ord2 Baso ABS# 0.0 K/ul 08/04/2015 Cbc With Differential Ord2 New Analyzer Notice Please note new ref ranges s tarting 07-09-2015 due to implemntation of new five part differential hematolgy analyzer. 08/04/2015 C-Reactive Protein Qnt Crqnt CRP 0.8 mg/dl 08/04/2015 Comp Metabolic Ypx154 NA 139 mEq/L 08/04/2015 Comp Metabolic Duz526 K 3.4 mEq/L 08/04/2015 Comp Metabolic Coh534 CL 109 mEq/L 08/04/2015 Comp Metabolic Fog565 CO2 22.0 mEq/L 08/04/2015 Comp Metabolic Rvv088 AN ION GAP 11 08/04/2015 Comp Metabolic Pws969 GL UCOSE 177 mg/dL 08/04/2015 Comp Metabolic Yyt729 Cr eat 1.0 mg/dL 08/04/2015 Comp Metabolic Cxg002 eG FR 64 ml/min/1.73m2 08/04 Comp Metabolic Boz280 BUN 35 mg/dL 08/04/2015 Comp Metabolic Ser975 B/ C Ratio 36.8 Ratio 08/04/2015 Comp Metabolic Xol763 CA LCIUM 8.5 mg/dL 08/04/2015 Comp Metabolic Zcq455 AL K PHOS 57 U/L 08/04/2015 Comp Metabolic Efa302 T(SGOT) 21 U/L 08/04/2015 Comp Metabolic Wsh620 AL T(SGPT) 63 U/L 08/04/2015 Comp Metabolic Zkt212 BI LI T 0.3 mg/dL 08/04/2015 Comp Metabolic Uso780 AL BUMIN 3.1 g/dL 08/04/2015 Comp Metabolic Bha554 TP RO 5.1 g/dL 08/04/2015 Comp Metabolic Ezb569 GL OB 2.0 g/dL 08/04/2015 Comp Metabolic Ypz644 A/ G Ratio 1.6 Ratio 08/04/2015 Comp Metabolic Clf971 Os mo 290 mOsmo 08/04/2015 Cpk Ord61 CPK 52 U/L 08/04/2015 Random Urine Protein/Creatinine Ratio [id number] U Prot 8.5 mg/dl 05/27/2015 Random Urine Protein/Creatinine Ratio Gge4837 U CREAT 201.0 mg/dL 05/27/2015 Random Urine Protein/Creatinine Ratio Nbs5099 R MTP/Creat Ratio 0.04 05/27/2015 Urinalysis Ord28 [...] hours from collection if refrigerated) 05/27/2015 Renal Zeb884 NA 136 mEq/L 05/26/2015 Renal Njj079 K 3.3 mEq/L 05/26/2015 Renal Wjx119 CL 99 mEq/L 05/26/2015 Renal Bcr034 CO2 25.0 mEq/L 05/26/2015 Renal Fzx501 ANION GAP 15 05/26/2015 Renal Rxg983 Osmo 274 mOsmo 05/26/2015 Renal Ueq204 GLUCOSE 106 mg/dL 05/26/2015 Renal Rsw793 BUN 17 mg/dL 05/26/2015 Renal Alv978 Creat 1.4 mg/dL 05/26/2015 Renal Ztz059 eGFR 40 ml/min/1.73m2 05/26/2015 Renal Ali362 B/C Ratio 12.0 Ratio 05/26/2015 Renal Yjb887 CALCIUM 9.3 mg/dL 05/26/2015 Renal Cau254 PHOS 3.4 mg/dL 05/26/2015 Renal Cop679 ALBUMIN 3.4 g/dL 05/26/2015 Cbc With Differential [...] Ord2 RDW 14.3 % 04/21/2015 Free T4 Jwc818 FREE T4 0.91 ng/dL 04/21/2015 %Hba1C Eaq441 % HbA1c 10772-1 5.8 % 04/21/2015 %Hba1C Owg968 Gluc Ave 120 mg/dL 04/21/2015 Comp Metabolic Hph448 NA 137 mEq/L 04/21/2015 Comp Metabolic Szj607 K 3.6 mEq/L 04/21/2015 Comp Metabolic Lvj495 CL 98 mEq/L 04/21/2015 Comp Metabolic Hpv245 CO2 25.0 mEq/L 04/21/2015 Comp Metabolic Qsh556 AN ION GAP 18 04/21/2015 Comp Metabolic Owr310 GL UCOSE 83 mg/dL 04/21/2015 Comp Metabolic Kdr698 Cr eat 1.6 mg/dL 04/21/2015 Comp Metabolic Tjg439 eG FR 36 ml/min/1.73m2 04/21 Comp Metabolic Zar862 BUN 28 mg/dL 04/21/2015 Comp Metabolic Kxx896 B/ C Ratio 17.9 Ratio 04/21/2015 Comp Metabolic Tic072 CA LCIUM 9.5 mg/dL 04/21/2015 Comp Metabolic Myh567 AL K PHOS 60 U/L 04/21/2015 Comp Metabolic Acm592 T(SGOT) 22 U/L 04/21/2015 Comp Metabolic Cwu796 AL T(SGPT) 10 U/L 04/21/2015 Comp Metabolic Wdc500 BI LI T 0.4 mg/dL 04/21/2015 Comp Metabolic Fuk622 AL BUMIN 4.0 g/dL 04/21/2015 Comp Metabolic Olw984 TP RO 6.8 g/dL 04/21/2015 Comp Metabolic Ghs360 GL OB 2.8 g/dL 04/21/2015 Comp Metabolic Nvd607 A/ G Ratio 1.4 Ratio 04/21/2015 Comp Metabolic Ptr355 Os mo 278 mOsmo 04/21/2015 Tsh Ord6 hTSH II 2.58 uIU/mL 04/21/2015 Review of Systems System Result Effective Dates Constitutional recent illness 10/12/2018 Constitutional No chills [...] 08/30/2016 Respiratory No cough 11/2016 Respiratory dyspnea 03/0 11/2016 Genitourinary/Nephrology No dysuria 08/30/2016 Genitourinary/Nephrology No [...] No alteration of consciousness 10/30/2015 Psychiatric anxiety 05/0 10/2015 Psychiatric depression 0 10/30/2015 Constitutional No [...] clear 10/12/2018 None Full Exam - General 1995 Ears/Nose/Throat [...] clear 09/13/2018 None Full Exam - General 1995 Ears/Nose/Throat lips/teeth/gingiva Overall: benign lips 09/13/2018 None [...] nourished 03/02/2017 None Full Exam - General 1995 Eyes conjunctiva/eyelids Overall: conjunctiva clear 03/02/2017 None Full Exam - General 1994 Eyes conjunctiva/eyelids Overall: eyelids normal 03/02/2017 None Full Exam - General 1995 Ears/Nose/Throat lips/teeth/gingiva Overall: benign lips 03/02/2017 None Full Exam - General 1995 Ears/Nose/Throat oral cavity/pharynx/larynx Overall: oral mucosa clear [...] Procedure Codes Date THER/PROPH/DIAG INJ SC/IM CPT-4: 91590 06/22/2017 TRIAMCINOLONE ACET I [place] NOS CPT-4: J3301 06/22/2017 THER/PROPH/DIAG INJ SC/IM CPT-4: 52830 08/04/2015 TRIAMCINOLONE ACET I [place] NOS CPT-4: J3301 08/04/2015 Vital Signs Date Vital 01/22/2019 Blood Pressure 1: 220/128 Code: 8480-6 Heart Rate 1: 100 bpm SpO2: 98% 10/12/2018 Blood Pressure 1: 110/74 Code: 8480-6 Heart Rate 1: 105 bpm Height: 5'1" SpO2: 95% Weight: 09/13/2018 Blood Pressure 1: 156/86 Code: 8480-6 BMI: 32.3 Code: 68323-0 Heart Rate 1: 90 bpm Height: 5'1" SpO2: 98% Weight: 171 lbs 05/04/2018 Blood Pressure 1: 158/88 Code: 8480-6 BMI: 33.3 Code: 65057-0 Heart Rate 1: 63 bpm Height: 5'1" SpO2: 98% Weight: 176 lbs 01/10/2018 Blood Pressure 1: 138/88 Code: 8480-6 BMI: 31.9 Code: 51580-9 Heart Rate 1: 78 bpm Height: 5'1" SpO2: 99% Weight: 169 lbs 12/06/2017 Blood Pressure 1: 158/98 Code: 8480-6 BMI: 32.3 Code: 37424-6 Heart Rate 1: 60 bpm Height: 5'1" SpO2: 100% Weight: 171 lbs 06/22/2017 Blood Pressure 1: 168/92 Code: 8480-6 BMI: 32.6 Code: 58778-4 Heart Rate 1: 133 bpm Height: 5'1" SpO2: 97% Temperature: 37.6 (C ) / 99.7 (F) Weight: 172 lbs 8 oz 03/02/2017 Blood Pressure 1: 168/90 Code: 8480-6 BMI: 35.0 Code: 06128-5 Heart Rate 1: 80 bpm Height: 5'1" SpO2: 94% Weight: 185 lbs 01/24/2017 Blood Pressure 1: 130/68 Code: 8480-6 BMI: 35.3 Code: 91928-0 Heart Rate 1: 66 bpm Height: 5'1" SpO2: 98% Weight: 187 lbs 10/13/2016 Blood Pressure 1: 136/74 Code: 8480-6 BMI: 35.1 Code: 70405-1 Heart Rate 1: 71 bpm Height: 5'1" SpO2: 97% Weight: 186 lbs 08/30/2016 Blood Pressure 1: 128/80 Code: 8480-6 BMI: 35.0 Code: 83713-9 Heart Rate 1: 75 bpm Height: 5'1" SpO2: 96% Weight: 185 lbs 8 oz 07/02/2016 Blood Pressure 1: 140/78 Code: 8480-6 Heart Rate 1: 63 bpm Height: 5'1" SpO2: 98% 06/24/2016 Blood Pressure 1: 148/100 Code: 8480-6 BMI: 34.2 Code: 07618-1 Heart Rate 1: 110 bpm Height: 5'1" SpO2: 94% Weight: 181 lbs 05/04/2016 Blood Pressure 1: 150/90 Code: 8480-6 Blood Pressure 1: 134/82 Code: 8480-6 BMI: 34.6 Code: 45390-0 Heart Rate 1: 74 bpm Height: 5'1" SpO2: 98% Weight: 183 lbs 04/06/2016 Blood Pressure 1: 156/92 Code: 8480-6 Blood Pressure 1: 158/88 Code: 8480-6 BMI: 34.8 Code: 31111-8 Heart Rate 1: 69 bpm Height: 5'1" SpO2: 97% Weight: 184 lbs 03/18/2016 Blood Pressure 1: 148/90 Code: 8480-6 BMI: 35.1 Code: 75437-0 Heart Rate 1: 106 bpm Height: 5'1" SpO2: 94% Weight: 186 lbs 03/11/2016 Blood Pressure 1: 140/90 Code: 8480-6 BMI: 35.1 Code: 59110-4 Heart Rate 1: 103 bpm Height: 5'1" SpO2: 96% Weight: 186 lbs 02/24/2016 Blood Pressure 1: 130/80 Code: 8480-6 BMI: 34.4 Code: 98780-6 Heart Rate 1: 110 bpm Height: 5'1" SpO2: 96% Weight: 182 lbs 12/16/2015 Blood Pressure 1: 144/98 Code: 8480-6 BMI: 33.8 Code: 86034-4 Heart Rate 1: 97 bpm Height: 5'1" SpO2: 98% Weight: 179 lbs 10/30/2015 Blood Pressure 1: 138/88 Code: 8480-6 BMI: 33.6 Code: 51131-6 Heart Rate 1: 88 bpm Height: 5'1" SpO2: 98% Weight: 178 lbs 09/23/2015 Blood Pressure 1: 152/94 Code: 8480-6 BMI: 32.7 Code: 56115-2 Heart Rate 1: 83 bpm Height: 5'1" SpO2: 97% Weight: 173 lbs 09/10/2015 Blood Pressure 1: 136/82 Code: 8480-6 BMI: 32.1 Code: 11870-0 Heart Rate 1: 105 bpm Height: 5'1" SpO2: 97% Weight: 170 lbs 08/12/2015 Blood Pressure 1: 132/70 Code: 8480-6 BMI: 31.2 Code: 52487-6 Heart Rate 1: 88 bpm Height: 5'1" SpO2: 95% Temperature: 36.7 (C ) / 98.0 (F) Weight: 165 lbs 08/04/2015 Blood Pressure 1: 136/80 Code: 8480-6 BMI: 31.0 Code: 19455-4 Heart Rate 1: 110 bpm Height: 5'1" SpO2: 98% Weight: 164 lbs 05/16/2015 Blood Pressure 1: 138/88 Code: 8480-6 BMI: 32.9 Code: 22591-2 Heart Rate 1: 87 bpm Height: 5'1" SpO2: 90% Weight: 174 lbs 05/12/2015 BMI: 31.7 Code: 37484-8 Height: 5'1" Weight: 168 lbs 04/21/2015 Blood Pressure 1: 124/82 Code: 8480-6 BMI: 32.1 Code: 98901-2 Heart Rate 1: 87 bpm Height: 5'1" Weight: 170 lbs Functional Status No Functional Status data History of Present Illness Symptom Name Status Resu lt Effective Date Notes _ infection 10/12/2018 None Onset of Symptom [...] of the thyroid 12/06/2017 None hypothyroid Quality equal opportunity officer [place] 12/06/2017 None hypothyroid Onset and Resolution [...] of the thyroid 08/30/2016 None hypothyroid Quality equal opportunity officer [place] 08/30/2016 None hypothyroid Onset and Resolution ongoing 08/30/2016 None hypothyroid Alleviating Factors medication 08/30/2016 None hypertension Exacerbating Factors stress 08/30/2016 None shoulder pain Location L eft Posterior Shoulder 07/02/2016 None shoulder pain Quality [place] 07/02/2016 None shoulder pain Onset and Resolution [...] of the thyroid 05/04/2016 None hypothyroid Quality equal opportunity officer [place] 05/04/2016 None hypothyroid Onset and Resolution [...] of the thyroid 04/06/2016 None hypothyroid Quality equal opportunity officer [place] 04/06/2016 None hypothyroid Onset and Resolution [...] Alleviating Factors medication 12/16/2015 None hypothyroid Quality equal opportunity officer [place] 12/16/2015 None hypothyroid Location at the [...] Encounters Encounter Performer Loca tion Codes Date ([id number]) Miscellaneou s no charge Diagnosis: Essential (primary) hypertension[ICD10: I10] Meghana Maya MD, [place] CPT-4: 69570 01/22/2019 75427 EST. PATIENT, LEVEL III Diagnosis: Chronic kidney disease, stage 3 (moderate)[ICD10: N18.3] Diagnosis: Essential (primary) hypertension[ICD10: I10] Diagnosis: Encounter for follow-up examination after completed treatment for conditions other than malignant neoplasm[ICD10: Z09] Britney Maya MD, [facility] CPT-4: 73137 10/12/2018 36621 EST. PATIENT, LEVEL III Diagnosis: Hypokalemia[ICD10: E87.6] Diagnosis: Interstitial pulmonary disease, unspecified[ICD10: J84.9] Britney Maya MD, [facility] CPT-4: 93791 09/13/2018 26903 EST. PATIENT, LEVEL IV Diagnosis: Essential (primary) hypertension[ICD10: I10] Diagnosis: Interstitial pulmonary disease, unspecified[ICD10: J84.9] Diagnosis: Chronic kidney disease, stage 3 (moderate)[ICD10: N18.3] Diagnosis: Mixed hyperlipidemia[ICD10: E78.2] Britney Maya MD, [facility] CPT-4: 46498 05/04/2018 38991 EST. PATIENT, LEVEL IV Diagnosis: Essential (primary) hypertension[ICD10: I10] Diagnosis: Interstitial pulmonary disease, unspecified[ICD10: J84.9] Diagnosis: Chronic kidney disease, stage 3 (moderate)[ICD10: N18.3] Diagnosis: Mixed hyperlipidemia[ICD10: E78.2] Britney Maya MD, [facility] CPT-4: 75754 01/10/2018 93290 EST. PATIENT, LEVEL IV Diagnosis: Other specified hypothyroidism[ICD10: E03.8] Diagnosis: Essential (primary) hypertension[ICD10: I10] Britney Maya MD, [facility] CPT-4: 41812 12/06/2017 62280 EST. PATIENT, LEVEL IV Diagnosis: Other malaise[ICD10: R53.81] Diagnosis: Other fatigue[ICD10: R53.83] Britney Maya MD, [facility] CPT-4: 24813 06/22/2017 73062 EST. PATIENT, LEVEL IV Diagnosis: Acute laryngopharyngitis[ICD10: J06.0] Diagnosis: Other acute sinusitis[ICD10: J01.80] Diagnosis: Other allergic rhinitis[ICD10: J30.89] Britney Maya MD, [facility] CPT-4: 87878 03/02/2017 90822 EST. PATIENT, LEVEL IV Diagnosis: Generalized hyperhidrosis[ICD10: R61] Diagnosis: Other acute sinusitis[ICD10: J01.80] Diagnosis: Other fatigue[ICD10: R53.83] Diagnosis: Interstitial pulmonary disease, unspecified[ICD10: J84.9] Britney Maya MD, [facility] CPT-4: 21543 01/24/2017 78380 EST. PATIENT, LEVEL IV Diagnosis: Acute laryngopharyngitis[ICD10: J06.0] Diagnosis: Other acute sinusitis[ICD10: J01.80] Britney Maya MD, [facility] CPT- 4: 09860 10/13/2016 ([id number]) 99275 EST. P ATIENT, LEVEL IV Diagnosis: Essential (primary) hypertension[ICD10: I10] Diagnosis: Drug-induced polyneuropathy[ICD10: G62.0] Diagnosis: Impaired fasting glucose[ICD10: R73.01] Catie Maya MD, [facility] CPT-4: 59160 08/30/2016 00696 EST. PATIENT, LEVEL IV Diagnosis: Pain in thoracic spine[ICD10: M54.6] Diagnosis: Pain in left shoulder[ICD10: M25.512] Diagnosis: Zoster without complications[ICD10: B02.9] Britney Maya MD, [facility] CPT-4: 84084 07/02/2016 08936 EST. PATIENT, LEVEL III Diagnosis: Other specified hypothyroidism[ICD10: E03.8] Diagnosis: Menopausal and female climacteric states[ICD10: N95.1] Diagnosis: Essential (primary) hypertension[ICD10: I10] Britney Maya MD, [facility] CPT-4: 72670 06/24/2016 ([id number]) 18729 EST. P ATIENT, LEVEL IV Diagnosis: Essential (primary) hypertension[ICD10: I10] Diagnosis: Atrophy of thyroid (acquired)[ICD10: E03.4] Diagnosis: Pain in left foot[ICD10: M79.672] Meghana Maya MD, [facility] CPT-4: 59902 05/04/2016 ([id number]) 66215 EST. P ATIENT, LEVEL IV Diagnosis: Essential (primary) hypertension[ICD10: I10] Diagnosis: Pain in left leg[ICD10: M79.605] Diagnosis: Pain in left foot[ICD10: M79.672] Diagnosis: Atrophy of thyroid (acquired)[ICD10: E03.4] Meghana Maya MD, C CPT-4: 56949 04/06/2016 ([id number]) 08096 EST. P ATIENT, LEVEL III Diagnosis: Essential (primary) hypertension[ICD10: I10] Diagnosis: Localized edema[ICD10: R60.0] Catie Maya MD, [facility] CPT- 4: 59099 03/18/2016 ([id number]) 91701 EST. P ATIENT, LEVEL III Diagnosis: Essential (primary) hypertension[ICD10: I10] Diagnosis: Pain in left foot[ICD10: M79.672] Catie Maya MD, [facility] CPT- 4: 79973 03/11/2016 ([id number]) 12925 EST. P ATIENT, LEVEL III Diagnosis: Localized edema[ICD10: R60.0] Diagnosis: Essential (primary) hypertension[ICD10: I10] Catie Maya MD, [facility] CPT-4: 62248 02/24/2016 ([id number]) 80949 EST. P ATIENT, LEVEL IV Diagnosis: Hypothyroidism, unspecified[ICD10: E03.9] Diagnosis: Essential (primary) hypertension[ICD10: I10] Meghana Maya MD, C CPT-4: 63431 12/16/2015 ([id number]) 37691 EST. P ATIENT, LEVEL III Diagnosis: Essential (primary) hypertension[ICD10: I10] Diagnosis: Hypothyroidism, unspecified[ICD10: E03.9] Meghana Maya MD, C CPT-4: 53558 10/30/2015 ([id number]) 07449 EST. P ATIENT, LEVEL IV Diagnosis: Diarrhea, unspecified[ICD10: R19.7] Diagnosis: Essential (primary) hypertension[ICD10: I10] Meghana Maya MD, C CPT-4: 25810 09/23/2015 ([id number]) 72707 EST. P ATIENT, LEVEL III Diagnosis: Essential (primary) hypertension[ICD10: I10] Diagnosis: Diarrhea, unspecified[ICD10: R19.7] Meghana Maya MD, [facility] CPT- 4: 93240 09/10/2015 ([id number]) 39799 EST. P ATIENT, LEVEL III Diagnosis: Acute maxillary sinusitis, unspecified[ICD10: J01.00] Diagnosis: Myositis, unspecified[ICD10: M60.9] Meghana Maya MD, [facility] CPT- 4: 02703 08/12/2015 ([id number]) 17477 EST. P ATIENT, LEVEL IV Diagnosis: Essential (primary) hypertension[ICD10: I10] Diagnosis: Pain in left leg[ICD10: M79.605] Diagnosis: Other myositis, multiple sites[ICD10: M60.89] Diagnosis: Hypothyroidism, unspecified[ICD10: E03.9] Meghana Maya MD, [facility] CPT-4: 56075 08/04/2015 35087 EST. PATIENT, LEVEL III Diagnosis: Dyspnea, unspecified[ICD10: R06.00] Diagnosis: Essential (primary) hypertension[ICD10: I10] Meghana Maya MD, [facility] CPT-4: 58833 05/16/2015 ([id number]) 42886 EST. P ATIENT, LEVEL II Diagnosis: Dyspnea, unspecified[ICD10: R06.00] Meghana Maya MD, [facility] CPT- 4: 45252 05/12/2015 ([id number]) OFFICE ABIELI T, [facility] - LEVEL 4 Diagnosis: Essential (primary) hypertension[ICD10: I10] Diagnosis: Impaired fasting glucose[ICD10: R73.01] Diagnosis: Mixed hyperlipidemia[ICD10: E78.2] Diagnosis: Hypothyroidism, unspecified[ICD10: E03.9] Diagnosis: Encounter for screening mammogram for malignant neoplasm of breast[ICD10: Z12.31] [facility] CPT-4: 42004 04/21/2015 Plan of Care Planned Activity Notes C odes Status Date Appointment: Nurse Visit 01/22/2019 Patient Education: Patient Medication Summary Completed 01/22/2019 Appointment: Britney Bower WPtel: [address] [place], [place] [id number] (30 min) Complex 10/26/2018 Appointment: Britney Bower WPtel: [address] [place], [place] [id number] Nurse Visit 10/17/2018 Visit Plan: Hypertension - [...] to monitor - pt has seen a control chemist in the 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 Hospital follow up - This was a follow up appointment from the patient's hospitalization during which time Dr. Maya formulated the assessment and plan for the follow up on this patient's medical condition. 10/12/2018 Appointment: Britney Bower WPtel: [facility] (30 min) Complex 10/12/2018 Patient Education: Patient Medication Summary Completed 10/12/2018 Visit Plan: Hypokalemia - will send RX for potassium and monitor labs Interstitial lung disease - pt is to follow up with specialist and notify clinic with any changes in current treatment plan 09/13/2018 Appointment: Brit[facility] Bower WPtel[facility] (30 min) Complex 09/13/2018 Patient Education: Patient [...] plan 05/04/2018 Appointment: [facility]ower [facility]Ptel[facility] [phone] [facility] (15 min) Moderate 05/04/2018 Patient Education: Patient Medication Summary Completed 05/04/2018 Patient Education: Cholesterol Management Completed 05/04/2018 Appointment: Lab Draw 02/23/2018 Visit Plan: Hypertension - jodie lopez - continue with current medications, continue with [...] current treatment plan 01/10/2018 Appointment: [facility] Bowertel: [phone] [facility] (30 min) Complex 01/10/2018 Patient Education: Patient [...] of control. 12/06/2017 Appointment: Britney Bower WPtel: [address] [place], [place] [phone] (15 min) Moderate 12/06/2017 Patient Education: Patient Medication Summary Completed 12/06/2017 Visit Plan: URI - Pt advised to inc rease fluids, vitamin C. Discussed natural and expected course of this diagnosis and need to alert me if symptoms do not follow expected course, or if any worse. RX sent to patient's pharmacy. 06/22/2017 Appointment: Brit[facility] Bower WPtel[facility] [phone] [facility] (15 min) Moderate 06/22/2017 Patient Education: Patient [...] allergy spray. 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 Maya - will increase clonidine to BID - pt is to consider referral to dermatology - notify clinic if symptoms do not improve, if they worsen, or with any other questions or concerns. 01/24/2017 Appointment: Britney Bower WPtel: [facility] (30 min) Complex 01/24/2017 Patient Education: Patient [...] show improvement. 10/13/2016 Appointment: Britney Bower WPtel: [facility] (30 min) Complex 10/13/2016 Patient Education: Patient [...] in blood pressure readings at home. 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 07/02/2016 Appointment: Brit[facility] Bower [facility]Ptel[facility] [phone] [facility] (30 min) Complex 07/02/2016 Patient Education: Patient [...] control. 06/24/2016 Appointment: [facility]ower [facility]Ptel[facility] [phone] [facility] (30 min) Complex 06/24/2016 Patient Education: Patient Medication Summary Completed 06/24/2016 Patient Education: Obesity Completed 06/24/2016 Patient Education: Hypertension Completed 06/24/2016 Patient Education: Patient Medication Summary Completed 05/14/2016 Care Plan: SCREENINGMAMMOGRAPHYDIGITAL [facility] : 92998-2 Pending 05/14/2016 Visit Plan: Hypertension - well [...] Appointment[phone] (15 min) Moderate 05/04/2016 Patient Education: [...] medication. 04/06/2016 Appointment: [facility]ana [facility]Ptel[phone] [facility] [place] (15 min) Moderate 04/06/2016 Patient Education: Patient Medication Summary Completed 04/06/2016 Patient Education: Obesity Completed 04/06/2016 Care Plan: Referral Order SNOMED-CT : [id number] Pending 04/06/2016 Visit Plan: Edema-improved with low [...] acute concerns. 03/18/2016 Appointment: Catie Shoemaker WPtel: [phone] (15 min) Moderate 03/18/2016 Patient Education: Patient [...] xray left foot-recommend she follow up with benefits analyst at regarding left foot pain/numbness/weakness. Patient has noticed worsening symptoms since decreasing prednisone. 03/11/2016 Appointment: Catie Shoemaker WPtel: [phone] [place] (15 min) Moderate 03/11/2016 Patient Education: Patient Medication Summary Completed 03/11/2016 Patient Education: Obesity Completed 03/11/2016 Appointment: Catie Shoemaker WPtel: [phone] (30 min) Complex 03/09/2016 Visit Plan: Edema [...] 25mg daily 02/24/2016 Appointment: Catie Shoemaker WPtel: [phone] [phone] (15 min) Moderate 02/24/2016 Patient Education: Patient Medication Summary Completed 02/24/2016 Patient Education: Obesity Completed 02/24/2016 Patient Education: Hypertension Completed 02/24/2016 Appointment: Meghana Maya WPtel: [facility] (15 min) Moderate 02/23/2016 Visit Plan: Hypertension [...] control. 12/16/2015 Appointment: Meghana Maya WPtel: [phone] [facility] (15 min) Moderate 12/16/2015 Patient Education: Patient [...] min) Complex 10/23/2015 Appointment: Meghana Maya WPtel: [address] [place], [place] [address] (15 min) Moderate 10/23/2015 Visit Plan: Hypertension [...] Appointment: [facility]el[facility] [phone] [facility] (15 min) Moderate 09/10/2015 Patient Education: [...] 08/04/2015 Appointment: (30 min) Complex 07/24/2015 Appointment: [place] Meg[facility]ana [facility]Ptel: [phone] [facility] (15 min) Moderate 07/24/2015 Appointment: Lab [...] Education: Hypertension Completed 04/21/2015 Care Plan: SCREENINGMAMMOGRAPHYDIGITAL [facility] : 52306-8 Ordered 04/21/2015 Appointment: Meghana Maya WPtel: [facility] [place] (S[facility] New Patient 04/01/2015 Referral: [...] SPECIALIZES IN FOOT AND ANKLE DISEASE AT [address] INCREASE THE METOPROLOL TO 1.5 PILLS [...] change in blood pressure readings at home. Sweats/retirement use of steroids-check Hgb A1C Peripheral neuropathy-improved with T78-tlctot Dr Duran for tarsel tunnel syndrome PATIENT [...] xray left foot-recommend she follow up with benefits analyst at regarding left foot pain/numbness/weakness. 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 Maya - will increase clonidine to BID - pt is to consider referral to dermatology - notify clinic if symptoms do not improve, if they worsen, or with any other questions or concerns. probiotic - pato Loomio, probiotic pearls, etc - take three times [...] to monitor - pt has seen a control chemist in the past and does not want [...]
--- OUTSIDE RECORDS SUMMARY | 2019-08-14 06:14 | XMS REPORT | CCD ---
Author Author Carolann Shoemaker Organization Meghana Maya MD, [facility] Address [facility] [place] [address] Phone Care Team Providers Care Intelligence Operations Specialist Name Role Phone PP Unavailable CCM Unavailable Summary Purpose Interface Exchange Family history Mother Diagnosis Age At Onset Hypertension Unknown Breast cancer Unknown Osteoporosis Unknown Father Diagnosis Age At Onset kidney disease Unknown Cancer Unknown Hyperlipidemia Unknown Social History Social History Element Codes Description Effective Dates Marital status Unknown D ivorced 04/21/2015 Number of children Unknown 1 04/21/2015 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/[address]: 810558684 Never smoker 04/21/2015 Alcohol history Unknown occasionally drinks alcohol 04/21/2015 Allergies, Adverse Reactions, Alerts Substance Reaction Codes Entered Date Inactivated Date Status [id number] REDU CTASE INHIBITORS myalgias Unknown 016 No [...] ICD-10: R73.01 Active 04/20/2015 Unknown Other specified hypo thyroidism ICD-9: 244.8 [...] ICD-9: 729.5 ICD-10: M79.672 Active 05/03/2016 Unknown Hypothyroidism, unsp ecified ICD-9: 244.9 ICD-10: E03.9 Active 04/05/2016 Unknown Pain in left leg ICD-9: 729.5 [...] 790.21 ICD-10: R73.01 04/20/2015 Active Other specified hypo thyroidism ICD-9: 244.8 ICD-10: E03.8 06/23/2016 Active Other [...] foot ICD-9: 729.5 ICD-10: M79.672 05/03/2016 Active Hypothyroidism, unsp ecified ICD-9: 244.9 ICD-10: E03.9 04/05/2016 Active Pain in left leg ICD-9: 729.5 [...] Fill Instructions losartan 50 mg tablet RxNorm: 412101 1 Tablet(s) PO daily 02/06/2019 06/05/2019 Active oxybutynin chloride 5 mg tablet RxNorm: 198512 Tablet(s) TAKE ONE-ANGEL LF TABLET BY MOUTH DAILY 02/06/2019 06/05/2019 Active metoprolol succinate ER 50 mg tablet,extended release 24 hr RxNorm: 104448 1 Tablet(s) PO BID 02/06/2019 06/05/2019 Active oxybutynin chloride 5 mg tablet RxNorm: 378552 TAKE ONE-HALF TABLET BY MOUTH DAILY 01/30/2019 02/05/2019 In active metoprolol succinate ER 100 mg tablet,extended release 24 hr RxNorm: 133575 1 Tablet(s) PO daily 01/22/2019 01/21/2019 Inactive metoprolol succinate ER 50 mg tablet,extended release 24 hr RxNorm: 117723 1 Tablet(s) PO daily 01/22/2019 02/05/2019 Inactive metoprolol succinate ER 100 mg tablet,extended release 24 hr RxNorm: 222913 1 Tablet(s) PO daily 01/22/2019 01/22/2019 Inactive oxybutynin chloride 5 mg tablet RxNorm: 585104 1/2 Tablet(s) PO hari y 01/04/2019 01/29/2019 In active oxybutynin chloride 5 mg tablet RxNorm: 210926 1/2 Tablet(s) PO hari y 01/04/2019 01/03/2019 In active Lipitor 20 mg tablet RxNorm: 228634 TAKE ONE TABLET BY MOUTH DAILY 12/04/2018 06/01/2019 Ac tive venlafaxine ER 150 m g capsule,extended release 24 hr RxNorm: 870385 TAKE ONE CAPSULE BY MOUTH DAILY 12/04/2018 06/01/2019 Active losartan 25 mg tablet RxNorm: 013150 TAKE ONE TABLET BY MOUTH DAILY 12/04/2018 01/24/2019 In active nystatin 100,000 uni t/mL oral suspension RxNorm: 546367 4 Unit(s) PO QID 10/17/2018 10/23/2018 In active nystatin 100,000 uni t/mL oral suspension RxNorm: 565771 4 Unit(s) PO QID 10/17/2018 10/16/2018 In active metoprolol succinate ER 50 mg tablet,extended release 24 hr RxNorm: 977309 1 Tablet(s) PO daily 10/17/2018 01/19/2019 Inactive potassium chloride E R 10 mEq tablet,extended release RxNorm: 018623 Tablet(s) TAKE ONE TABLET BY MOUTH DAILY 09/15/2018 03/13/2019 Active candesartan 4 mg tablet RxNorm: 404719 1 Tablet(s) PO daily 09/15/2018 10/14/2018 Inactive clonidine HCl 0.1 mg tablet RxNorm: 870602 TAKE ONE TABLET BY [facility] TWICE A DAY 09/14/2018 02/10/2019 Ac tive losartan 25 mg tablet RxNorm: 980925 TAKE ONE TABLET BY MOUTH DAILY 09/14/2018 11/12/2018 In active clonidine HCl 0.1 mg tablet RxNorm: 125535 Tablet(s) TAKE ONE TA BLET BY MOUTH AT BEDTIME 09/13/2018 No Stop Date Active venlafaxine ER 150 m g capsule,extended release 24 hr RxNorm: 475427 TAKE ONE CAPSULE BY MOUTH DAILY 05/15/2018 11/10/2018 Inactive Lipitor 20 mg tablet RxNorm: 474427 TAKE ONE TABLET BY MOUTH DAILY 05/15/2018 11/10/2018 In active losartan 25 mg tablet RxNorm: 794616 TAKE ONE TABLET BY MOUTH DAILY 04/17/2018 07/14/2018 In active losartan 25 mg tablet RxNorm: 222783 TAKE ONE TABLET BY MOUTH DAILY 04/17/2018 04/16/2018 In active Lipitor 20 mg tablet RxNorm: 681946 1 Tablet(s) PO daily 01/12/2018 01/11/2018 Inactive Lipitor 20 mg tablet RxNorm: 671840 1 Tablet(s) PO daily 01/12/2018 05/11/2018 Inactive clonidine HCl 0.1 mg tablet RxNorm: 562496 TAKE ONE TABLET BY [facility] TWICE A DAY 01/04/2018 07/02/2018 In active potassium chloride E R 10 mEq tablet,extended release RxNorm: 986143 TAKE ONE TABLET BY MOUTH DAILY 01/04/2018 09/12/2018 Inactive losartan 25 mg tablet RxNorm: 813536 TAKE ONE TABLET BY MOUTH DAILY 01/03/2018 04/02/2018 In active levothyroxine 50 mcg tablet RxNorm: 759859 1 Tablet(s) PO daily 12/08/2017 09/12/2018 Inactive losartan 25 mg tablet RxNorm: 148851 1 Tablet(s) PO daily 12/06/2017 01/02/2018 Inactive venlafaxine ER 150 m g capsule,extended release 24 hr RxNorm: 436653 TAKE ONE CAPSULE BY MOUTH DAILY 12/06/2017 05/04/2018 Inactive metoprolol succinate ER 50 mg tablet,extended release 24 hr RxNorm: 629373 TAKE ONE TABLET BY MOUTH DAILY 08/29/2017 01/25/2018 Inactive metoprolol succinate ER 50 mg tablet,extended release 24 hr RxNorm: 743886 TAKE ONE TABLET BY MOUTH DAILY 08/29/2017 08/28/2017 Inactive metoprolol succinate ER 50 mg tablet,extended release 24 hr RxNorm: 717980 TAKE ONE TABLET BY MOUTH DAILY 08/29/2017 08/28/2017 Inactive Tamiflu 75 mg capsule RxNorm: 601447 1 Capsule(s) PO BID 06/22/2017 06/26/2017 Inactive Kenalog 40 mg/mL jenna pension for injection RxNorm: 7576754 1.5 Milliliter(s) In j 06/22/2017 06/22/2017 In active clonidine HCl 0.1 mg tablet RxNorm: 294802 TAKE ONE TABLET BY [facility] TWICE A DAY 06/06/2017 12/02/2017 In active potassium chloride E R 10 mEq tablet,extended release RxNorm: 718902 TAKE ONE TABLET BY MOUTH DAILY 06/06/2017 12/02/2017 Inactive venlafaxine ER 150 m g capsule,extended release 24 hr RxNorm: 019860 TAKE ONE CAPSULE BY MOUTH DAILY 05/23/2017 11/18/2017 Inactive Zithromax 500 mg tablet RxNorm: 662731 1 Tablet(s) PO daily 05/18/2017 05/22/2017 Inactive potassium chloride E R 10 mEq tablet,extended release RxNorm: 172506 TAKE ONE TABLET BY MOUTH DAILY 04/21/2017 05/20/2017 Inactive potassium chloride E R 10 mEq tablet,extended release RxNorm: 374203 TAKE ONE TABLET BY MOUTH DAILY 03/16/2017 04/14/2017 Inactive Zithromax Z-Jacek 250 mg tablet RxNorm: 439705 1 Tablet(s) PO UD 03/02/2017 06/21/2017 Inactive venlafaxine ER 150 m g capsule,extended release 24 hr RxNorm: 923214 Capsule(s) TAKE ONE CAPSULE BY MOUTH DAILY 02/17/2017 02/16/2017 Inactive venlafaxine ER 150 m g capsule,extended release 24 hr RxNorm: 265259 TAKE ONE CAPSULE BY MOUTH DAILY 02/17/2017 05/14/2018 Inactive clonidine HCl 0.1 mg tablet RxNorm: 825143 TAKE ONE TABLET BY [facility] EVERY NIGHT AT BEDTIME 02/14/2017 01/03/2018 Inactive metoprolol succinate ER 50 mg tablet,extended release 24 hr RxNorm: 073925 TAKE ONE TABLET BY MOUTH DAILY 02/14/2017 08/12/2017 Inactive Protonix 40 mg table t,delayed release RxNorm: 607057 TAKE ONE TABLET BY [facility] DAILY WHILE ON PREDNISONE 01/25/2017 09/12/2018 Inactive Zithromax Z-Jacek 250 mg tablet RxNorm: 027394 1 Tablet(s) PO UD 01/24/2017 01/03/2018 Inactive potassium chloride E R 10 mEq tablet,extended release RxNorm: 693489 TAKE ONE TABLET BY MOUTH DAILY 01/17/2017 03/15/2017 Inactive clonidine HCl 0.1 mg tablet RxNorm: 010141 TAKE ONE TABLET BY [facility] EVERY NIGHT AT BEDTIME 01/17/2017 02/13/2017 Inactive potassium chloride E R 10 mEq tablet,extended release RxNorm: 729444 TAKE ONE TABLET BY MOUTH DAILY 12/16/2016 01/14/2017 Inactive venlafaxine ER 150 m g capsule,extended release 24 hr RxNorm: 204763 TAKE ONE CAPSULE BY MOUTH DAILY 11/18/2016 02/15/2017 Inactive clonidine HCl 0.1 mg tablet RxNorm: 502606 TAKE ONE TABLET BY [facility] EVERY NIGHT AT BEDTIME 11/08/2016 01/06/2017 Inactive clonidine HCl 0.1 mg tablet RxNorm: 170471 1 Tablet(s) BID 10/19/2016 01/16/2017 Inactive potassium chloride E R 10 mEq tablet,extended release RxNorm: 821939 TAKE ONE TABLET BY MOUTH DAILY 10/15/2016 11/13/2016 Inactive Zithromax Z-Jacek 250 mg tablet RxNorm: 538211 1 Tablet(s) PO UD 10/13/2016 01/03/2018 Inactive potassium chloride E R 10 mEq tablet,extended release RxNorm: 005817 TAKE ONE TABLET BY MOUTH DAILY 10/12/2016 10/14/2016 Inactive potassium chloride E R 10 mEq tablet,extended release RxNorm: 353488 Tablet(s) BID TAKE ONE TABLET BY MOUTH TWICE DAILY 09/17/2016 10/11/2016 Inactive potassium chloride E R 10 mEq tablet,extended release RxNorm: 643026 TAKE ONE TABLET BY MOUTH DAILY 09/13/2016 09/16/2016 Inactive clonidine HCl 0.1 mg tablet RxNorm: 160413 Tablet(s) TAKE ONE TA BLET BY MOUTH EVERY NIGHT AT BEDTIME 08/12/2016 10/18/2016 Inactive gabapentin 300 mg ca psule RxNorm: 965909 1 Capsule(s) PO [facility] 08/10/2016 No Stop Date Active venlafaxine ER 150 m g capsule,extended release 24 hr RxNorm: 068191 TAKE ONE CAPSULE BY MOUTH DAILY 08/09/2016 11/06/2016 Inactive metoprolol succinate ER 50 mg tablet,extended release 24 hr RxNorm: 636551 TAKE ONE TABLET BY MOUTH DAILY 07/29/2016 01/24/2017 Inactive clonidine HCl 0.1 mg tablet RxNorm: 801857 TAKE ONE TABLET BY [facility] EVERY NIGHT AT BEDTIME 07/21/2016 08/11/2016 Inactive potassium chloride E R 10 mEq tablet,extended release RxNorm: 605304 TAKE ONE TABLET BY MOUTH DAILY 07/14/2016 09/11/2016 Inactive Prescriber not associated w ith this practice or location acyclovir 400 mg tablet RxNorm: 931691 2 Tablet(s) PO QID 07/02/2016 07/11/2016 Inactive cyclobenzaprine 5 mg tablet RxNorm: 033441 1-2 Tablet(s) PO TID as needed 07/02/2016 07/06/2016 In active capsaicin 0.1 % topi reagan cream RxNorm: 847637 1 Application TOP TID as needed 07/02/2016 09/12/2018 In active Protonix 40 mg table t,delayed release RxNorm: 900294 TAKE ONE TABLET BY [facility] DAILY WHILE ON PREDNISONE 06/29/2016 12/25/2016 Inactive clonidine HCl 0.1 mg tablet RxNorm: 107300 1 Tablet(s) PO QHS 06/25/2016 07/20/2016 Inactive calcium carbonate 50 0 mg calcium (1,250 mg) tablet RxNorm: 914430 TAKE ONE TABLET BY MOUTH DAILY WHILE ON PREDNISONE. MAY STOP TAKING WHEN PREDNISONE IS COMPLETE 06/01/2016 09/12/2018 In active Vitamin D3 1,000 uni t tablet RxNorm: 621683 1 Tablet(s) PO daily . May stop taking once prednisone is complete. 04/26/2016 09/12/2018 Inactive metoprolol succinate ER 50 mg tablet,extended release 24 hr RxNorm: 780521 1.5 Tablet(s) PO daily 04/06/2016 06/23/2016 Inactive prednisone 10 mg tablet RxNorm: 973021 1 Tablet(s) PO daily 04/02/2016 06/21/2017 Inactive metoprolol succinate ER 50 mg tablet,extended release 24 hr RxNorm: 723509 1 Tablet(s) PO daily 03/18/2016 04/05/2016 Inactive amlodipine 10 mg tablet RxNorm: 144932 1/2 Tablet(s) PO daily 02/24/2016 06/21/2016 Inactive metoprolol succinate ER 25 mg tablet,extended release 24 hr RxNorm: 809837 1 Tablet(s) PO daily 02/24/2016 03/16/2016 Inactive calcium carbonate 50 0 mg calcium (1,250 mg) tablet RxNorm: 283935 TAKE ONE TABLET BY MOUTH DAILY WHILE ON PREDNISONE. MAY STOP TAKING WHEN PREDNISONE IS COMPLETE 02/16/2016 05/15/2016 In active Protonix 40 mg table t,delayed release RxNorm: 653566 TAKE ONE TABLET BY [facility] DAILY WHILE ON PREDNISONE 02/10/2016 05/09/2016 Inactive venlafaxine ER 150 m g capsule,extended release 24 hr RxNorm: 664796 Capsule(s) TAKE ONE CAPSULE BY MOUTH DAILY 12/10/2015 04/07/2016 Inactive calcium carbonate 50 0 mg calcium (1,250 mg) tablet RxNorm: 313901 1 Tablet(s) PO daily 12/01/2015 01/29/2016 Inactive Vitamin D3 1,000 uni t tablet RxNorm: 951888 1 Tablet(s) PO daily 12/01/2015 03/29/2016 Inactive levothyroxine 50 mcg tablet RxNorm: 450837 1 Tablet(s) PO daily 12/01/2015 11/24/2016 Inactive amlodipine 10 mg tablet RxNorm: 459299 1 Tablet(s) PO daily 11/19/2015 11/18/2015 Inactive amlodipine 10 mg tablet RxNorm: 367779 1 Tablet(s) PO daily 11/19/2015 02/23/2016 Inactive amlodipine 5 mg tablet RxNorm: 363902 1 Tablet(s) PO daily 11/17/2015 11/18/2015 Inactive venlafaxine ER 150 m g capsule,extended release 24 hr RxNorm: 841222 TAKE ONE CAPSULE BY MOUTH DAILY 11/13/2015 12/09/2015 Inactive Protonix 40 mg table t,delayed release RxNorm: 767013 1 Tablet(s) PO daily while on prednisone 2015 02/09/2016 Inactive prednisone 10 mg tablet RxNorm: 766484 2 Tablet(s) PO UD 10/30/2015 04/01/2016 Inactive 60mg for 2 days, then 50mg for 2 days, then 40mg for 2 days, then 30mg for 2 days, then 20mg for 2 days, then 10mg for 2 days, then 5mg for 2 days potassium chloride E R 10 mEq tablet,extended release RxNorm: 295191 TAKE ONE TABLET BY MOUTH DAILY 09/22/2015 12/19/2015 Inactive venlafaxine ER 150 m g capsule,extended release 24 hr RxNorm: 701353 TAKE ONE CAPSULE BY MOUTH DAILY 09/08/2015 11/06/2015 Inactive cefdinir 300 mg capsule RxNorm: 427951 1 Capsule(s) PO BID 08/20/2015 08/22/2015 Inactive cefdinir 300 mg capsule RxNorm: 996357 1 Capsule(s) PO BID 08/12/2015 08/18/2015 Inactive Kenalog 40 mg/mL jenna pension for injection RxNorm: 3591816 1 Milliliter(s) Inj 08/04/2015 08/04/2015 In active triamterene 37.5 mg- hydrochlorothiazide 25 mg tablet RxNorm: 190137 1 Tablet(s) PO BID 06/17/2015 08/03/2015 Inactive potassium chloride E R 10 mEq tablet,extended release RxNorm: 251710 1 Tablet(s) PO daily 05/30/2015 08/03/2015 Inactive Levaquin 250 mg tablet RxNorm: 919081 Tablet(s) PO UD 500 mg day one, then 250 mg day 2-7 05/27/2015 08/03/2015 Inactive prednisone 10 mg tablet RxNorm: 482417 Tablet(s) PO UD 05/27/2015 10/29/2015 Inactive 60mg for 2 days, then 50mg for 2 days, then 40mg for 2 days, then 30mg for 2 days, then 20mg for 2 days, then 10mg for 2 days, then 5mg for 2 days albuterol sulfate 1. 25 mg/3 mL solution for nebulization RxNorm: 714866 3 Milliliter(s) INH Q4-6H as needed dyspnea 05/23/2015 09/12/2018 Inactive Zithromax 500 mg tablet RxNorm: 466889 1 Tablet(s) PO daily 05/16/2015 05/15/2015 Inactive Zithromax 500 mg tablet RxNorm: 410855 1 Tablet(s) PO daily 05/16/2015 05/20/2015 Inactive prednisone 20 mg tablet RxNorm: 383290 3 Tablet(s) PO daily 05/12/2015 05/16/2015 Inactive venlafaxine ER 150 m g capsule,extended release 24 hr RxNorm: 254259 TAKE ONE CAPSULE BY MOUTH DAILY 05/12/2015 08/09/2015 Inactive Keflex 500 mg capsule RxNorm: 570221 1 Capsule(s) PO TID 05/12/2015 05/18/2015 Inactive simvastatin 20 mg ta blet RxNorm: 727984 1 Tablet(s) PO daily 04/10/2015 04/09/2015 Inactive simvastatin 20 mg ta blet RxNorm: 819975 1 Tablet(s) PO daily 04/10/2015 08/11/2015 Inactive venlafaxine ER 150 m g capsule,extended release 24 hr RxNorm: 047054 TAKE ONE CAPSULE BY MOUTH DAILY 04/08/2015 05/07/2015 Inactive amlodipine 5 mg tablet RxNorm: 079658 1 Tablet(s) PO daily 03/07/2015 03/06/2015 Inactive amlodipine 5 mg tablet RxNorm: 703495 1 Tablet(s) PO daily 03/07/2015 07/04/2015 Inactive venlafaxine ER 150 m g capsule,extended release 24 hr RxNorm: 059771 1 Capsule(s) PO daily 01/29/2015 03/29/2015 Inactive Co Q-10 oral RxNorm: 48332 oral No Start Date Active gabapentin 100 mg ca psule RxNorm: 234704 1 Capsule(s) PO QAM No Start Date Active albuterol sulfate 1. 25 mg/3 mL solution for nebulization RxNorm: 839189 3 Milliliter(s) INH Q4-6H as needed dyspnea No Start Date 05/22/2015 Inactive levothyroxine 50 mcg tablet RxNorm: 256856 1 Tablet(s) PO daily No Start Date 11/30/2015 Inactive metoprolol succinate ER 50 mg tablet,extended release 24 hr RxNorm: 761773 1 Tablet(s) PO daily No Start Date 09/12/2018 Inactive gabapentin 300 mg ca psule RxNorm: 011565 1 Capsule(s) PO QHS No Start Date 08/09/2016 Inactive vitamin B complex oral RxNorm: 60577 oral No Start Date 09/12/2018 Inactive Vitamin D3 1,000 uni t tablet RxNorm: 846656 1 Tablet(s) PO daily No Start Date 11/30/2015 Inactive Protonix 40 mg table t,delayed release RxNorm: 649352 1 Tablet(s) PO daily while on prednisone No Start Date 10/30/2015 Inactive calcium carbonate oral RxNorm: oral No Start Date 11/30/2015 Inactive potassium chloride E R 10 mEq tablet,extended release RxNorm: 499198 1 Tablet(s) PO daily No Start Date 05/29/2015 Inactive Levaquin 250 mg tablet RxNorm: 390157 Tablet(s) PO UD 500 mg day one, then 250 mg day 2-7 No Start Date 05/26/2015 Inactive triamterene 37.5 mg- hydrochlorothiazide 25 mg tablet RxNorm: 100237 1 Tablet(s) PO BID No Start Date 06/16/2015 Inactive prednisone 10 mg tablet RxNorm: 789846 Tablet(s) PO UD No Start Date 05/26/2015 Inactive 60mg for 2 days, then 50mg for 2 days, then 40mg for 2 days, then 30mg for 2 days, then 20mg for 2 days, then 10mg for 2 days, then 5mg for 2 days venlafaxine ER 150 m g capsule,extended release 24 hr RxNorm: 612435 1 Capsule(s) PO daily No Start Date 01/28/2015 Inactive Medication Administered Medication Codes Instruc tions Start Date Status Kenalog 40 mg/mL suspension for injection RxNorm: 0710006 1.5Milliliter 06/22/2017 No longer Active Kenalog 40 mg/mL suspension for injection RxNorm: 9437640 1Milliliter 08/04/2015 N o longer Active Immunizations [...] Item Item Code Result Date Comp Metabolic Uwz386 NA 142 mEq/L 10/12/2018 Comp Metabolic Lht541 K 4.0 mEq/L 10/12/2018 Comp Metabolic Ppp558 CL 105 mEq/L 10/12/2018 Comp Metabolic Pea361 CO2 21.0 mEq/L 10/12/2018 Comp Metabolic Ipo483 AN ION GAP 20 10/12/2018 Comp Metabolic Ego447 GL UCOSE 105 mg/dL 10/12/2018 Comp Metabolic Xlr962 Cr eat 1.8 mg/dL 10/12/2018 Comp Metabolic Ufr528 eG FR 30 ml/min/1.73m2 10/12 Comp Metabolic Opt322 BUN 19 mg/dL 10/12/2018 Comp Metabolic Gyu439 B/ C Ratio 10.5 Ratio 10/12/2018 Comp Metabolic Hsj503 CA LCIUM 9.0 mg/dL 10/12/2018 Comp Metabolic Rem228 AL K PHOS 74 U/L 10/12/2018 Comp Metabolic Bij885 T(SGOT) 21 U/L 10/12/2018 Comp Metabolic Isn438 AL T(SGPT) 22 U/L 10/12/2018 Comp Metabolic Jvp343 BI LI T 0.4 mg/dL 10/12/2018 Comp Metabolic Sxv529 AL BUMIN 3.9 g/dL 10/12/2018 Comp Metabolic Vnu307 TP RO 6.1 g/dL 10/12/2018 Comp Metabolic Jze063 GL OB 2.2 g/dL 10/12/2018 Comp Metabolic Lfi497 A/ G Ratio 1.7 Ratio 10/12/2018 Comp Metabolic Sld722 Os mo 286 mOsmo 10/12/2018 Cbc With [...] 28.0 pg 10/12/2018 Cbc With Differential Ord2 Day% 16.6 % 10/12/2018 Cbc With Differential Ord2 [...] 1.77 K/ul 10/12/2018 Cbc With Differential Ord2 Day ABS# 2.4 K/ul 10/12/2018 Cbc With Differential Ord2 Eos ABS# 0.0 K/ul 10/12/2018 Cbc With Differential Ord2 Baso ABS# 0.0 K/ul 10/12/2018 Electrolytes Ord62 NA 140 mEq/L 09/15/2018 Electrolytes Ord62 K 4.2 mEq/L 09/15/2018 Electrolytes Ord62 CL 111 mEq/L 09/15/2018 Electrolytes Ord62 CO2 20.0 mEq/L 09/15/2018 Electrolytes Ord62 ANION GAP 13 09/15/2018 Comp Metabolic Iod109 NA 140 mEq/L 01/10/2018 Comp Metabolic Rfm254 K 3.8 mEq/L 01/10/2018 Comp Metabolic Pwl758 CL 106 mEq/L 01/10/2018 Comp Metabolic Dkq365 CO2 25.0 mEq/L 01/10/2018 Comp Metabolic Ems473 AN ION GAP 13 01/10/2018 Comp Metabolic Oug857 GL UCOSE 110 mg/dL 01/10/2018 Comp Metabolic Yxw637 Cr eat 1.5 mg/dL 01/10/2018 Comp Metabolic Cwh436 eG FR 37 ml/min/1.73m2 01/10 Comp Metabolic Trg764 BUN 23 mg/dL 01/10/2018 Comp Metabolic Jqp375 B/ C Ratio 15.3 Ratio 01/10/2018 Comp Metabolic Bal717 CA LCIUM 9.2 mg/dL 01/10/2018 Comp Metabolic Fob867 AL K PHOS 87 U/L 01/10/2018 Comp Metabolic Luo291 T(SGOT) 15 U/L 01/10/2018 Comp Metabolic Hjl644 AL T(SGPT) 9 U/L 01/10/2018 Comp Metabolic Vtr356 BI LI T 0.4 mg/dL 01/10/2018 Comp Metabolic Mua275 AL BUMIN 3.8 g/dL 01/10/2018 Comp Metabolic Imp457 TP RO 6.2 g/dL 01/10/2018 Comp Metabolic Mwu911 GL OB 2.4 g/dL 01/10/2018 Comp Metabolic Ixy773 A/ G Ratio 1.6 Ratio 01/10/2018 Comp Metabolic Ruh838 Os mo 284 mOsmo 01/10/2018 C-Reactive Protein [...] 13.7 g/dl 01/10/2018 Cbc With Differential Ord2 Neut% 61.1 % 01/10/2018 Cbc With Differential Ord2 HCT 43.0 % 01/10/2018 Cbc With Differential Ord2 Lymph% 22.6 % 01/10/2018 Cbc With Differential Ord2 MCV 86.7 fl 01/10/2018 Cbc With Differential Ord2 MCH 27.6 pg 01/10/2018 Cbc With Differential Ord2 Day% 15.2 % 01/10/2018 Cbc With Differential Ord2 [...] 1.47 K/ul 01/10/2018 Cbc With Differential Ord2 Day ABS# 1.0 K/ul 01/10/2018 Cbc With Differential Ord2 Eos ABS# 0.1 K/ul 01/10/2018 Cbc With Differential Ord2 Baso ABS# 0.0 K/ul 01/10/2018 Sed Rate Ord21 ESR 12 mm/hr 01/10/2018 Free T4 Xxw248 FREE T4 0.57 ng/dL 12/06/2017 Tsh Ord6 TSH (3rd IS) 7.40 uIU/mL 12/06/2017 C A/B FLU [id number] Influe nza A Scr Negative 06/22/2017 C A/B FLU [id number] Influe nza B Scr Negative 06/22/2017 C A/B FLU [id number] Influe nza Intrp B AG:PRID:PT:NOSE:NOM:IF See Footnote 06/22/2017 Comp Metabolic Anc273 NA 140 mEq/L 08/30/2016 Comp Metabolic Suh440 K 3.3 mEq/L 08/30/2016 Comp Metabolic Chy247 CL 104 mEq/L 08/30/2016 Comp Metabolic Sqd392 CO2 26.0 mEq/L 08/30/2016 Comp Metabolic Wzm875 AN ION GAP 13 08/30/2016 Comp Metabolic Fco716 GL UCOSE 143 mg/dL 08/30/2016 Comp Metabolic Fnk370 Cr eat 1.3 mg/dL 08/30/2016 Comp Metabolic Iip345 eG FR 43 ml/min/1.73m2 08/30 Comp Metabolic Xxm969 BUN 19 mg/dL 08/30/2016 Comp Metabolic Gfz293 B/ C Ratio 14.3 Ratio 08/30/2016 Comp Metabolic Blb749 CA LCIUM 10.0 mg/dL 08/30/2016 Comp Metabolic Jfw802 AL K PHOS 67 U/L 08/30/2016 Comp Metabolic Hap673 T(SGOT) 28 U/L 08/30/2016 Comp Metabolic Hun055 AL T(SGPT) 43 U/L 08/30/2016 Comp Metabolic Vlt210 BI LI T 0.4 mg/dL 08/30/2016 Comp Metabolic Zvs287 AL BUMIN 4.0 g/dL 08/30/2016 Comp Metabolic Uch261 TP RO 6.2 g/dL 08/30/2016 Comp Metabolic Roj838 GL OB 2.2 g/dL 08/30/2016 Comp Metabolic Sbg994 A/ G Ratio 1.8 Ratio 08/30/2016 Comp Metabolic Ydh986 Os mo 284 mOsmo 08/30/2016 %Hba1C Oza137 % HbA1c 05450-9 6.1 % 08/30/2016 %Hba1C Reu551 Gluc Ave 128 mg/dL 08/30/2016 Free T4 Kbf721 FREE T4 0.75 ng/dL 06/25/2016 Tsh Ord6 [...] Ord90 Mag 2.1 mg/dL 12/16/2015 Free T4 Aty088 FREE T4 0.92 ng/dL 12/16/2015 Tsh Ord6 [...] 8.7 % 08/04/2015 Cbc With Differential Ord2 Day% 6.1 % 08/04/2015 Cbc With Differential Ord2 MCH 28.5 pg 08/04/2015 Cbc With Differential Ord2 MCHC 31.2 pg 08/04/2015 Cbc With Differential Ord2 Eos% 0.8 % 08/04/2015 Cbc With Differential Ord2 PLT 286 K/ul 08/04/2015 Cbc With Differential Ord2 Baso% 0.1 % 08/04/2015 Cbc With Differential Ord2 RDW 18.7 % 08/04/2015 Cbc With Differential Ord2 Neut ABS# 7.08 K/ul 08/04/2015 Cbc With Differential Ord2 Lymph ABS# 0.73 K/ul 08/04/2015 Cbc With Differential Ord2 Day ABS# 0.5 K/ul 08/04/2015 Cbc With Differential Ord2 Eos ABS# 0.1 K/ul 08/04/2015 Cbc With Differential Ord2 Baso ABS# 0.0 K/ul 08/04/2015 Cbc With Differential Ord2 New Analyzer Notice Please note new ref ranges s tarting 07-09-2015 due to implemntation of new five part differential hematolgy analyzer. 08/04/2015 C-Reactive Protein Qnt Crqnt CRP 0.8 mg/dl 08/04/2015 Comp Metabolic Rtn679 NA 139 mEq/L 08/04/2015 Comp Metabolic Isx100 K 3.4 mEq/L 08/04/2015 Comp Metabolic Jlm986 CL 109 mEq/L 08/04/2015 Comp Metabolic Afm919 CO2 22.0 mEq/L 08/04/2015 Comp Metabolic Nqa322 AN ION GAP 11 08/04/2015 Comp Metabolic Quu895 GL UCOSE 177 mg/dL 08/04/2015 Comp Metabolic Loc585 Cr eat 1.0 mg/dL 08/04/2015 Comp Metabolic Wwv409 eG FR 64 ml/min/1.73m2 08/04 Comp Metabolic Hns585 BUN 35 mg/dL 08/04/2015 Comp Metabolic Vqe315 B/ C Ratio 36.8 Ratio 08/04/2015 Comp Metabolic Lgu204 CA LCIUM 8.5 mg/dL 08/04/2015 Comp Metabolic Lix931 AL K PHOS 57 U/L 08/04/2015 Comp Metabolic Qat979 T(SGOT) 21 U/L 08/04/2015 Comp Metabolic Pha344 AL T(SGPT) 63 U/L 08/04/2015 Comp Metabolic Mhk464 BI LI T 0.3 mg/dL 08/04/2015 Comp Metabolic Alm032 AL BUMIN 3.1 g/dL 08/04/2015 Comp Metabolic Hfi780 TP RO 5.1 g/dL 08/04/2015 Comp Metabolic Tzc935 GL OB 2.0 g/dL 08/04/2015 Comp Metabolic Svg338 A/ G Ratio 1.6 Ratio 08/04/2015 Comp Metabolic Yiz102 Os mo 290 mOsmo 08/04/2015 Cpk Ord61 CPK 52 U/L 08/04/2015 Random Urine Protein/Creatinine Ratio Uti1790 U Prot 8.5 mg/dl 05/27/2015 Random Urine Protein/Creatinine Ratio [id number] U CREAT 201.0 mg/dL 05/27/2015 Random Urine Protein/Creatinine Ratio Foy1635 R MTP/Creat Ratio 0.04 05/27/2015 Urinalysis Ord28 [...] hours from collection if refrigerated) 05/27/2015 Renal Odm324 NA 136 mEq/L 05/26/2015 Renal Gey585 K 3.3 mEq/L 05/26/2015 Renal Bzq916 CL 99 mEq/L 05/26/2015 Renal Fwj918 CO2 25.0 mEq/L 05/26/2015 Renal Dra713 ANION GAP 15 05/26/2015 Renal Oxn720 Osmo 274 mOsmo 05/26/2015 Renal Ozq810 GLUCOSE 106 mg/dL 05/26/2015 Renal Psl993 BUN 17 mg/dL 05/26/2015 Renal Opf394 Creat 1.4 mg/dL 05/26/2015 Renal Chp010 eGFR 40 ml/min/1.73m2 05/26/2015 Renal Tiv364 B/C Ratio 12.0 Ratio 05/26/2015 Renal Vrp591 CALCIUM 9.3 mg/dL 05/26/2015 Renal Rtw945 PHOS 3.4 mg/dL 05/26/2015 Renal Fqa384 ALBUMIN 3.4 g/dL 05/26/2015 Cbc With Differential [...] Ord2 RDW 14.3 % 04/21/2015 Free T4 Exf765 FREE T4 0.91 ng/dL 04/21/2015 %Hba1C Ykq256 % HbA1c 00166-6 5.8 % 04/21/2015 %Hba1C Ers677 Gluc Ave 120 mg/dL 04/21/2015 Comp Metabolic Mim944 NA 137 mEq/L 04/21/2015 Comp Metabolic Ynd766 K 3.6 mEq/L 04/21/2015 Comp Metabolic Mbo942 CL 98 mEq/L 04/21/2015 Comp Metabolic Vzh449 CO2 25.0 mEq/L 04/21/2015 Comp Metabolic Pna852 AN ION GAP 18 04/21/2015 Comp Metabolic Ixg617 GL UCOSE 83 mg/dL 04/21/2015 Comp Metabolic Epr805 Cr eat 1.6 mg/dL 04/21/2015 Comp Metabolic Dvl100 eG FR 36 ml/min/1.73m2 04/21 Comp Metabolic Zlu244 BUN 28 mg/dL 04/21/2015 Comp Metabolic Zxx405 B/ C Ratio 17.9 Ratio 04/21/2015 Comp Metabolic Rrf620 CA LCIUM 9.5 mg/dL 04/21/2015 Comp Metabolic Ihk589 AL K PHOS 60 U/L 04/21/2015 Comp Metabolic Hum269 T(SGOT) 22 U/L 04/21/2015 Comp Metabolic Vfi436 AL T(SGPT) 10 U/L 04/21/2015 Comp Metabolic Dmd934 BI LI T 0.4 mg/dL 04/21/2015 Comp Metabolic Lwb660 AL BUMIN 4.0 g/dL 04/21/2015 Comp Metabolic Nny154 TP RO 6.8 g/dL 04/21/2015 Comp Metabolic Khc674 GL OB 2.8 g/dL 04/21/2015 Comp Metabolic Qxn544 A/ G Ratio 1.4 Ratio 04/21/2015 Comp Metabolic Uwj295 Os mo 278 mOsmo 04/21/2015 Tsh Ord6 [...] Procedure Codes Date THER/PROPH/DIAG INJ SC/IM CPT-4: 65750 06/22/2017 TRIAMCINOLONE ACET I [place] NOS CPT-4: J3301 06/22/2017 THER/PROPH/DIAG INJ SC/IM CPT-4: 17480 08/04/2015 TRIAMCINOLONE ACET I [place] NOS CPT-4: J3301 08/04/2015 Vital Signs Date Vital 01/22/2019 Blood Pressure 1: 220/128 Code: 8480-6 Heart Rate 1: 100 bpm SpO2: 98% 10/12/2018 Blood Pressure 1: 110/74 Code: 8480-6 Heart Rate 1: 105 bpm Height: 5'1" SpO2: 95% Weight: 09/13/2018 Blood Pressure 1: 156/86 Code: 8480-6 BMI: 32.3 Code: 17227-3 Heart Rate 1: 90 bpm Height: 5'1" SpO2: 98% Weight: 171 lbs 05/04/2018 Blood Pressure 1: 158/88 Code: 8480-6 BMI: 33.3 Code: 54762-2 Heart Rate 1: 63 bpm Height: 5'1" SpO2: 98% Weight: 176 lbs 01/10/2018 Blood Pressure 1: 138/88 Code: 8480-6 BMI: 31.9 Code: 77776-2 Heart Rate 1: 78 bpm Height: 5'1" SpO2: 99% Weight: 169 lbs 12/06/2017 Blood Pressure 1: 158/98 Code: 8480-6 BMI: 32.3 Code: 21854-1 Heart Rate 1: 60 bpm Height: 5'1" SpO2: 100% Weight: 171 lbs 06/22/2017 Blood Pressure 1: 168/92 Code: 8480-6 BMI: 32.6 Code: 75732-2 Heart Rate 1: 133 bpm Height: 5'1" SpO2: 97% Temperature: 37.6 (C ) / 99.7 (F) Weight: 172 lbs 8 oz 03/02/2017 Blood Pressure 1: 168/90 Code: 8480-6 BMI: 35.0 Code: 52181-8 Heart Rate 1: 80 bpm Height: 5'1" SpO2: 94% Weight: 185 lbs 01/24/2017 Blood Pressure 1: 130/68 Code: 8480-6 BMI: 35.3 Code: 80974-0 Heart Rate 1: 66 bpm Height: 5'1" SpO2: 98% Weight: 187 lbs 10/13/2016 Blood Pressure 1: 136/74 Code: 8480-6 BMI: 35.1 Code: 31929-1 Heart Rate 1: 71 bpm Height: 5'1" SpO2: 97% Weight: 186 lbs 08/30/2016 Blood Pressure 1: 128/80 Code: 8480-6 BMI: 35.0 Code: 21286-6 Heart Rate 1: 75 bpm Height: 5'1" SpO2: 96% Weight: 185 lbs 8 oz 07/02/2016 Blood Pressure 1: 140/78 Code: 8480-6 Heart Rate 1: 63 bpm Height: 5'1" SpO2: 98% 06/24/2016 Blood Pressure 1: 148/100 Code: 8480-6 BMI: 34.2 Code: 23016-7 Heart Rate 1: 110 bpm Height: 5'1" SpO2: 94% Weight: 181 lbs 05/04/2016 Blood Pressure 1: 134/82 Code: 8480-6 Blood Pressure 1: 150/90 Code: 8480-6 BMI: 34.6 Code: 14059-3 Heart Rate 1: 74 bpm Height: 5'1" SpO2: 98% Weight: 183 lbs 04/06/2016 Blood Pressure 1: 156/92 Code: 8480-6 Blood Pressure 1: 158/88 Code: 8480-6 BMI: 34.8 Code: 20237-3 Heart Rate 1: 69 bpm Height: 5'1" SpO2: 97% Weight: 184 lbs 03/18/2016 Blood Pressure 1: 148/90 Code: 8480-6 BMI: 35.1 Code: 17361-7 Heart Rate 1: 106 bpm Height: 5'1" SpO2: 94% Weight: 186 lbs 03/11/2016 Blood Pressure 1: 140/90 Code: 8480-6 BMI: 35.1 Code: 40171-4 Heart Rate 1: 103 bpm Height: 5'1" SpO2: 96% Weight: 186 lbs 02/24/2016 Blood Pressure 1: 130/80 Code: 8480-6 BMI: 34.4 Code: 30046-4 Heart Rate 1: 110 bpm Height: 5'1" SpO2: 96% Weight: 182 lbs 12/16/2015 Blood Pressure 1: 144/98 Code: 8480-6 BMI: 33.8 Code: 10069-7 Heart Rate 1: 97 bpm Height: 5'1" SpO2: 98% Weight: 179 lbs 10/30/2015 Blood Pressure 1: 138/88 Code: 8480-6 BMI: 33.6 Code: 75421-8 Heart Rate 1: 88 bpm Height: 5'1" SpO2: 98% Weight: 178 lbs 09/23/2015 Blood Pressure 1: 152/94 Code: 8480-6 BMI: 32.7 Code: 96839-2 Heart Rate 1: 83 bpm Height: 5'1" SpO2: 97% Weight: 173 lbs 09/10/2015 Blood Pressure 1: 136/82 Code: 8480-6 BMI: 32.1 Code: 89516-4 Heart Rate 1: 105 bpm Height: 5'1" SpO2: 97% Weight: 170 lbs 08/12/2015 Blood Pressure 1: 132/70 Code: 8480-6 BMI: 31.2 Code: 03159-7 Heart Rate 1: 88 bpm Height: 5'1" SpO2: 95% Temperature: 36.7 (C ) / 98.0 (F) Weight: 165 lbs 08/04/2015 Blood Pressure 1: 136/80 Code: 8480-6 BMI: 31.0 Code: 99685-5 Heart Rate 1: 110 bpm Height: 5'1" SpO2: 98% Weight: 164 lbs 05/16/2015 Blood Pressure 1: 138/88 Code: 8480-6 BMI: 32.9 Code: 70279-2 Heart Rate 1: 87 bpm Height: 5'1" SpO2: 90% Weight: 174 lbs 05/12/2015 BMI: 31.7 Code: 33003-5 Height: 5'1" Weight: 168 lbs 04/21/2015 Blood Pressure 1: 124/82 Code: 8480-6 BMI: 32.1 Code: 73308-7 Heart Rate 1: 87 bpm Height: 5'1" [...] of the thyroid 12/06/2017 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 PATIENT, LEVEL III Diagnosis: Chronic kidney disease, stage 3 (moderate)[ICD10: N18.3] Diagnosis: Essential (primary) hypertension[ICD10: I10] Diagnosis: Encounter for follow-up examination after completed treatment for conditions other than malignant neoplasm[ICD10: Z09] Britney Maya MD, [facility] CPT-4: 56796 10/12/2018 52595 EST. PATIENT, LEVEL III Diagnosis: Hypokalemia[ICD10: E87.6] Diagnosis: Interstitial pulmonary disease, unspecified[ICD10: J84.9] Britney Maya MD, [facility] CPT-4: 63245 09/13/2018 41227 EST. PATIENT, LEVEL IV Diagnosis: Essential (primary) hypertension[ICD10: I10] Diagnosis: Interstitial pulmonary disease, unspecified[ICD10: J84.9] Diagnosis: Chronic kidney disease, stage 3 (moderate)[ICD10: N18.3] Diagnosis: Mixed hyperlipidemia[ICD10: E78.2] Britney Maya MD, [facility] CPT-4: 92440 05/04/2018 52251 EST. PATIENT, LEVEL IV Diagnosis: Essential (primary) hypertension[ICD10: I10] Diagnosis: Interstitial pulmonary disease, unspecified[ICD10: J84.9] Diagnosis: Chronic kidney disease, stage 3 (moderate)[ICD10: N18.3] Diagnosis: Mixed hyperlipidemia[ICD10: E78.2] Britney Maya MD, [facility] CPT-4: 16423 01/10/2018 70184 EST. PATIENT, LEVEL IV Diagnosis: Other specified hypothyroidism[ICD10: E03.8] Diagnosis: Essential (primary) hypertension[ICD10: I10] Britney Maya MD, [facility] CPT-4: 55223 12/06/2017 45387 EST. PATIENT, LEVEL IV Diagnosis: Other malaise[ICD10: R53.81] Diagnosis: Other fatigue[ICD10: R53.83] Britney Maya MD, [facility] CPT-4: 74707 06/22/2017 23508 EST. PATIENT, LEVEL IV Diagnosis: Acute laryngopharyngitis[ICD10: J06.0] Diagnosis: Other acute sinusitis[ICD10: J01.80] Diagnosis: Other allergic rhinitis[ICD10: J30.89] Britney Maya MD, [facility] CPT-4: 04183 03/02/2017 70671 EST. PATIENT, LEVEL IV Diagnosis: Generalized hyperhidrosis[ICD10: R61] Diagnosis: Other acute sinusitis[ICD10: J01.80] Diagnosis: Other fatigue[ICD10: R53.83] Diagnosis: Interstitial pulmonary disease, unspecified[ICD10: J84.9] Britney Maya MD, [facility] CPT-4: 45030 01/24/2017 38825 EST. PATIENT, LEVEL IV Diagnosis: Acute laryngopharyngitis[ICD10: J06.0] Diagnosis: Other acute sinusitis[ICD10: J01.80] Britney Maya MD, [facility] CPT- 4: 23774 10/13/2016 ([id number]) 49058 [facility]. 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 PATIENT, LEVEL IV Diagnosis: Pain in thoracic spine[ICD10: M54.6] Diagnosis: Pain in left shoulder[ICD10: M25.512] Diagnosis: Zoster without complications[ICD10: B02.9] Britney Maya MD, [facility] CPT-4: 29379 07/02/2016 80946 EST. PATIENT, LEVEL III Diagnosis: Other specified hypothyroidism[ICD10: E03.8] Diagnosis: Menopausal and female climacteric states[ICD10: N95.1] Diagnosis: Essential (primary) hypertension[ICD10: I10] Britney Maya MD, [facility] CPT-4: 90737 06/24/2016 ([id number]) 29058 EST. P ATIENT, LEVEL IV Diagnosis: Essential (primary) hypertension[ICD10: I10] Diagnosis: Atrophy of thyroid (acquired)[ICD10: E03.4] Diagnosis: Pain in left foot[ICD10: M79.672] Meghana Maya MD, [facility] CPT-4: 72481 05/04/2016 ([id number]) 42187 EST. P ATIENT, LEVEL IV Diagnosis: Essential (primary) hypertension[ICD10: I10] Diagnosis: Pain in left leg[ICD10: M79.605] Diagnosis: Pain in left foot[ICD10: M79.672] Diagnosis: Atrophy of thyroid (acquired)[ICD10: E03.4] Meghana Maya MD, C CPT-4: 56952 04/06/2016 ([id number]) 59029 EST. P ATIENT, LEVEL III Diagnosis: Essential (primary) hypertension[ICD10: I10] Diagnosis: Localized edema[ICD10: R60.0] Catie Maya MD, [facility] CPT- 4: 53870 03/18/2016 ([id number]) 14289 EST. P ATIENT, LEVEL III Diagnosis: Essential (primary) hypertension[ICD10: I10] Diagnosis: Pain in left foot[ICD10: M79.672] Catie Maya MD, [facility] CPT- 4: 97625 03/11/2016 ([id number]) 69006 EST. P ATIENT, LEVEL III Diagnosis: Localized edema[ICD10: R60.0] Diagnosis: Essential (primary) hypertension[ICD10: I10] Catie Maya MD, [facility] CPT-4: 81345 02/24/2016 ([id number]) 07513 EST. P ATIENT, LEVEL IV Diagnosis: Hypothyroidism, unspecified[ICD10: E03.9] Diagnosis: Essential (primary) hypertension[ICD10: I10] Meghana Maya MD, [facility] CPT-4: 61145 12/16/2015 ([id number]) 41022 EST. P ATIENT, LEVEL III Diagnosis: Essential (primary) hypertension[ICD10: I10] Diagnosis: Hypothyroidism, unspecified[ICD10: E03.9] Meghana Maya MD, [facility] CPT-4: 15980 10/30/2015 ([id number]) 98708 EST. P ATIENT, LEVEL IV Diagnosis: Diarrhea, unspecified[ICD10: R19.7] Diagnosis: Essential (primary) hypertension[ICD10: I10] Meghana Maya MD, [facility] CPT-4: 51765 09/23/2015 ([id number]) 71088 EST. [facility]: Essential (primary) hypertension[ICD10: I10] Diagnosis: Diarrhea, unspecified[ICD10: R19.7] Meghana Maya MD, [facility] CPT- 4: 53527 09/10/2015 ([id number]) 63399 EST. [facility] Diagnosis: Acute maxillary sinusitis, unspecified[ICD10: J01.00] Diagnosis: Myositis, unspecified[ICD10: M60.9] Meghana Maya MD, [facility] CPT- 4: 81060 08/12/2015 ([id number]) 25428 EST. [facility]: Essential (primary) hypertension[ICD10: I10] Diagnosis: Pain in left leg[ICD10: M79.605] Diagnosis: Other myositis, multiple sites[ICD10: M60.89] Diagnosis: Hypothyroidism, unspecified[ICD10: E03.9] Meghana Maya MD, [facility] CPT-4: 80398 08/04/2015 06748 EST. PATIENT, LEVEL III Diagnosis: Dyspnea, unspecified[ICD10: R06.00] Diagnosis: Essential (primary) hypertension[ICD10: I10] Meghana Maya MD, [facility] CPT-4: 89687 05/16/2015 ([id number]) 40369 EST. [facility] Diagnosis: Dyspnea, unspecified[ICD10: R06.00] Meghana Maya MD, [facility] CPT- 4: 03117 05/12/2015 ([id number]) [facility] - LEVEL 4 Diagnosis: Essential (primary) hypertension[ICD10: I10] Diagnosis: Impaired fasting glucose[ICD10: R73.01] Diagnosis: Mixed hyperlipidemia[ICD10: E78.2] Diagnosis: Hypothyroidism, unspecified[ICD10: E03.9] Diagnosis: Encounter for screening mammogram for malignant neoplasm of breast[ICD10: Z12.31] [facility] CPT-4: 09560 04/21/2015 Plan of Care Planned Activity Notes C odes Status Date Appointment: Nurse Visit 01/22/2019 Patient Education: Patient Medication Summary Completed 01/22/2019 Appointment: Britney Bower WPtel: [address] [place], [place] [phone] (30 min) Complex 10/26/2018 Appointment: Britney Bower WPtel: [address] [place], [place] [phone] [[email or web address]] Nurse Visit 10/17/2018 Visit Plan: Hypertension - [...] to monitor - pt has seen a frame fixer in the 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 Hospital follow up - This was a follow up appointment from the patient's hospitalization during which time Dr. Maya formulated the assessment and plan for the follow up on this patient's medical condition. 10/12/2018 Appointment: Britney Bower WPtel: [address] [place], [place] [phone] (30 min) Complex 10/12/2018 Patient Education: Patient Medication Summary Completed 10/12/2018 Visit Plan: Hypokalemia - will send RX for potassium and monitor labs Interstitial lung disease - pt is to follow up with specialist and notify clinic with any changes in current treatment plan 09/13/2018 Appointment: Britney Bower WPtel: [address] [place], [place] [phone] (30 min) Complex 09/13/2018 Patient Education: Patient [...] plan 05/04/2018 Appointment[facility] [phone] [facility] (15 min) Moderate 05/04/2018 Patient Education: [...] treatment plan 01/10/2018 Appointment: [facility]el[facility] [phone] [facility] (30 min) Complex 01/10/2018 Patient Education: [...] control. 12/06/2017 Appointment: Britney Bower WPtel: [phone] [facility] [address] [place] [address] [[email or web address]] (15 min) Moderate 12/06/2017 Patient Education: Patient Medication Summary Completed 12/06/2017 Visit Plan: URI - Pt advised to inc rease fluids, vitamin C. Discussed natural and expected course of this diagnosis and need to alert me if symptoms do not follow expected course, or if any worse. RX sent to patient's pharmacy. 06/22/2017 Appointment: Britney Bower WPtel: [phone] [facility] [address] (15 min) Moderate 06/22/2017 Patient Education: Patient [...] spray. 03/02/2017 Appointment: Britney Bower WPtel: [phone] [facility] [address] [place] [address] (10 min) Simple 03/02/2017 Patient Education: Patient [...] or concerns. 01/24/2017 Appointment: Britney Bower WPtel: [facility]6 [facility] [address] [place] [address] (30 min) Complex 01/24/2017 Patient Education: [...] show improvement. 10/13/2016 Appointment: Britney Bower WPtel: [facility]5 [facility] [address] (30 min) Complex 10/13/2016 Patient Education: Patient [...] change in blood pressure readings at home. Sweats/custodial use of steroids-check Hgb A1C Peripheral neuropathy-improved with [id number] Dr Duran for tarsel tunnel syndrome 08/30/2016 Appointment: Catie Shoemaker WPtel: [facility]9 [facility] [address] [place] [phone] (15 min) Moderate 08/30/2016 Patient Education: Patient Medication Summary Completed 08/30/2016 Patient Education: Obesity Completed 08/30/2016 Care Plan: %Hba1C RAEANN Guaman : 76867-0 Ordered 08/30/2016 Care Plan: Comp Metabolic Ordered [...] contagious. 07/02/2016 Appointment: [facility]Ptel[facility] [phone] [facility] (30 min) Complex 07/02/2016 Patient Education: [...] Bower WPtel: [phone] [facility] [address] [place] [address] [place] (30 min) Complex 06/24/2016 Patient Education: Patient Medication Summary Completed 06/24/2016 Patient Education: Obesity Completed 06/24/2016 Patient Education: Hypertension Completed 06/24/2016 Patient Education: Patient Medication Summary Completed 05/14/2016 Care Plan: SCREENINGMAMMOGRAPHYDIGITAL LOINC : 59134-8 Pending 05/14/2016 Visit Plan: Hypertension - well [...] is painful. 05/04/2016 Appointment: [phone] (15 min) Moderate 05/04/2016 Patient Education: Patient [...] current medication. 04/06/2016 Appointment: Meghana [facility]Ptel[phone] [facility] [place] (15 min) Moderate 04/06/2016 Patient Education: Patient Medication Summary Completed 04/06/2016 Patient Education: Obesity Completed 04/06/2016 Care Plan: Referral Order SNOMED-CT : [id number] Pending 04/06/2016 Visit Plan: Edema-improved with low [...] acute concerns. 03/18/2016 Appointment: Catie Shoemaker WPtel: [facility]3 [facility] [address] [place] [phone] (15 min) Moderate 03/18/2016 Patient Education: Patient Medication Summary Completed 03/18/2016 Patient Education: Obesity Completed 03/18/2016 Patient Education: Hypertension Completed 03/18/2016 Visit Plan: Hypertension - well con jessica - continue with current medications, continue with [...] xray left foot-recommend she follow up with solar pool heating installer at regarding left foot pain/numbness/weakness. Patient has noticed worsening symptoms since decreasing prednisone. 03/11/2016 Appointment: Catie Shoemaker WPtel: [phone] [place] (15 min) Moderate 03/11/2016 Patient Education: Patient Medication Summary Completed 03/11/2016 Patient Education: Obesity Completed 03/11/2016 Appointment: Catie Shoemaker [facility]Ptel[phone] (30 min) Complex 03/09/2016 Visit Plan: Edema [...] 25mg daily 02/24/2016 Appointment: Catie Shoemaker WPtel: [phone] [facility] [address] [place] [phone] [place] (15 min) Moderate 02/24/2016 Patient Education: Patient Medication Summary Completed 02/24/2016 Patient Education: Obesity Completed 02/24/2016 Patient Education: Hypertension Completed 02/24/2016 Appointment: Meghana Maya WPtel: [phone] [facility] (15 min) Moderate 02/23/2016 Visit Plan: Hypertension [...] control. 12/16/2015 Appointment: Meghana Maya WPtel: [phone] [facility] (15 min) Moderate 12/16/2015 Patient Education: Patient [...] min) Complex 10/23/2015 Appointment: Meghana Maya WPtel: [address] [place] [address] (15 min) Moderate 10/23/2015 Visit Plan: Hypertension [...] home. 09/10/2015 Appointment: Meg[facility]Ptel[phone] [facility] (15 min) Moderate 09/10/2015 Patient Education: [...] Complex 07/24/2015 Appointment: Meghana Maya WPtel: [phone] [facility] (15 min) Moderate 07/24/2015 Appointment: Lab [...] Education: Hypertension Completed 04/21/2015 Care Plan: SCREENINGMAMMOGRAPHYDIGITAL [facility] : 60215-7 Ordered 04/21/2015 Appointment: Meghana Maya WPtel: [facility] [place] (S) New Patient 04/01/2015 Referral: [...] get a steroid shot today. Potassium 40meq raun ght, then 40meq in the morning and [...] SPECIALIZES IN FOOT AND ANKLE DISEASE AT [address] INCREASE THE METOPROLOL TO 1.5 PILLS [...] change in blood pressure readings at home. Sweats/custodial use of steroids-check Hgb A1C Peripheral neuropathy-improved with [id number] Dr Duran for tarsel tunnel syndrome PATIENT [...] xray left foot-recommend she follow up with solar pool heating installer at regarding left foot pain/numbness/weakness. Patient has [...] other questions or concerns. probiotic - pato ramos Spyra, probiotic pearls, etc - take three times [...] to monitor - pt has seen a frame fixer in the past and does not want [...]
--- OUTSIDE RECORDS SUMMARY | 2019-08-14 06:16 | XMS REPORT | CCD ---
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/21/[address]: [id number] Never smoker 04/21/2015 Alcohol history Unknown occasionally drinks alcohol 04/21/2015 Allergies, Adverse Reactions, Alerts Substance Reaction Codes Entered Date Inactivated Date Status [id number] REDU CTASE INHIBITORS myalgias Unknown 016 No [...] Date Stop Date Sta tus Fill Instructions oxybutynin chloride 5 mg tablet RxNorm: 617198 TAKE ONE-HALF TABLET BY MOUTH DAILY 01/30/2019 04/29/2019 Ac tive metoprolol succinate ER 50 mg tablet,extended release 24 hr RxNorm: 035577 1 Tablet(s) PO daily 01/22/2019 01/16/2020 Active metoprolol succinate ER 100 mg tablet,extended release 24 hr RxNorm: 190829 1 Tablet(s) PO daily 01/22/2019 01/21/2019 Inactive metoprolol succinate ER 100 mg tablet,extended release 24 hr RxNorm: 812165 1 Tablet(s) PO daily 01/22/2019 01/22/2019 Inactive oxybutynin chloride 5 mg tablet RxNorm: 563084 1/2 Tablet(s) PO hari y 01/04/2019 01/29/2019 In active oxybutynin chloride 5 mg tablet RxNorm: 353495 1/2 Tablet(s) PO hari y 01/04/2019 01/03/2019 In active losartan 25 mg tablet RxNorm: 861666 TAKE ONE TABLET BY MOUTH DAILY 12/04/2018 06/01/2019 Ac tive Lipitor 20 mg tablet RxNorm: 457584 TAKE ONE TABLET BY MOUTH DAILY 12/04/2018 06/01/2019 Ac tive venlafaxine ER 150 m g capsule,extended release 24 hr RxNorm: 400872 TAKE ONE CAPSULE BY MOUTH DAILY 12/04/2018 06/01/2019 Active nystatin 100,000 uni t/mL oral suspension RxNorm: 203063 4 Unit(s) PO QID 10/17/2018 10/23/2018 In active nystatin 100,000 uni t/mL oral suspension RxNorm: 260444 4 Unit(s) PO QID 10/17/2018 10/16/2018 In active metoprolol succinate ER 50 mg tablet,extended release 24 hr RxNorm: 595533 1 Tablet(s) PO daily 10/17/2018 01/19/2019 Inactive potassium chloride E R 10 mEq tablet,extended release RxNorm: 354705 Tablet(s) TAKE ONE TABLET BY MOUTH DAILY 09/15/2018 03/13/2019 Active candesartan 4 mg tablet RxNorm: 111547 1 Tablet(s) PO daily 09/15/2018 10/14/2018 Inactive clonidine HCl 0.1 mg tablet RxNorm: 919505 TAKE ONE TABLET BY MO UT TWICE A DAY 09/14/2018 02/10/2019 Ac tive losartan 25 mg tablet RxNorm: 854916 TAKE ONE TABLET BY MOUTH DAILY 09/14/2018 11/12/2018 In active clonidine HCl 0.1 mg tablet RxNorm: 649531 Tablet(s) TAKE ONE TA BLET BY MOUTH AT BEDTIME 09/13/2018 No Stop Date Active venlafaxine ER 150 m g capsule,extended release 24 hr RxNorm: 364007 TAKE ONE CAPSULE BY MOUTH DAILY 05/15/2018 11/10/2018 Inactive Lipitor 20 mg tablet RxNorm: 327041 TAKE ONE TABLET BY MOUTH DAILY 05/15/2018 11/10/2018 In active losartan 25 mg tablet RxNorm: 040404 TAKE ONE TABLET BY MOUTH DAILY 04/17/2018 07/14/2018 In active losartan 25 mg tablet RxNorm: 380802 TAKE ONE TABLET BY MOUTH DAILY 04/17/2018 04/16/2018 In active Lipitor 20 mg tablet RxNorm: 636090 1 Tablet(s) PO daily 01/12/2018 01/11/2018 Inactive Lipitor 20 mg tablet RxNorm: 113927 1 Tablet(s) PO daily 01/12/2018 05/11/2018 Inactive clonidine HCl 0.1 mg tablet RxNorm: 773659 TAKE ONE TABLET BY MO UT TWICE A DAY 01/04/2018 07/02/2018 In active potassium chloride E R 10 mEq tablet,extended release RxNorm: 124443 TAKE ONE TABLET BY MOUTH DAILY 01/04/2018 09/12/2018 Inactive losartan 25 mg tablet RxNorm: 885781 TAKE ONE TABLET BY MOUTH DAILY 01/03/2018 04/02/2018 In active levothyroxine 50 mcg tablet RxNorm: 826206 1 Tablet(s) PO daily 12/08/2017 09/12/2018 Inactive losartan 25 mg tablet RxNorm: 882441 1 Tablet(s) PO daily 12/06/2017 01/02/2018 Inactive venlafaxine ER 150 m g capsule,extended release 24 hr RxNorm: 285858 TAKE ONE CAPSULE BY MOUTH DAILY 12/06/2017 05/04/2018 Inactive metoprolol succinate ER 50 mg tablet,extended release 24 hr RxNorm: 499036 TAKE ONE TABLET BY MOUTH DAILY 08/29/2017 01/25/2018 Inactive metoprolol succinate ER 50 mg tablet,extended release 24 hr RxNorm: 214375 TAKE ONE TABLET BY MOUTH DAILY 08/29/2017 08/28/2017 Inactive metoprolol succinate ER 50 mg tablet,extended release 24 hr RxNorm: 133260 TAKE ONE TABLET BY MOUTH DAILY 08/29/2017 08/28/2017 Inactive Tamiflu 75 mg capsule RxNorm: 845809 1 Capsule(s) PO BID 06/22/2017 06/26/2017 Inactive Kenalog 40 mg/mL jenna pension for injection RxNorm: 5280242 1.5 Milliliter(s) In j 06/22/2017 06/22/2017 In active clonidine HCl 0.1 mg tablet RxNorm: 244248 TAKE ONE TABLET BY [facility] TWICE A DAY 06/06/2017 12/02/2017 In active potassium chloride E R 10 mEq tablet,extended release RxNorm: 603522 TAKE ONE TABLET BY MOUTH DAILY 06/06/2017 12/02/2017 Inactive venlafaxine ER 150 m g capsule,extended release 24 hr RxNorm: 794550 TAKE ONE CAPSULE BY MOUTH DAILY 05/23/2017 11/18/2017 Inactive Zithromax 500 mg tablet RxNorm: 319103 1 Tablet(s) PO daily 05/18/2017 05/22/2017 Inactive potassium chloride E R 10 mEq tablet,extended release RxNorm: 760796 TAKE ONE TABLET BY MOUTH DAILY 04/21/2017 05/20/2017 Inactive potassium chloride E R 10 mEq tablet,extended release RxNorm: 331615 TAKE ONE TABLET BY MOUTH DAILY 03/16/2017 04/14/2017 Inactive Zithromax Z-Jacek 250 mg tablet RxNorm: 001320 1 Tablet(s) PO UD 03/02/2017 06/21/2017 Inactive venlafaxine ER 150 m g capsule,extended release 24 hr RxNorm: 594685 Capsule(s) TAKE ONE CAPSULE BY MOUTH DAILY 02/17/2017 02/16/2017 Inactive venlafaxine ER 150 m g capsule,extended release 24 hr RxNorm: 849520 TAKE ONE CAPSULE BY MOUTH DAILY 02/17/2017 05/14/2018 Inactive clonidine HCl 0.1 mg tablet RxNorm: 631193 TAKE ONE TABLET BY [facility] EVERY NIGHT AT BEDTIME 02/14/2017 01/03/2018 Inactive metoprolol succinate ER 50 mg tablet,extended release 24 hr RxNorm: 432756 TAKE ONE TABLET BY MOUTH DAILY 02/14/2017 08/12/2017 Inactive Protonix 40 mg table t,delayed release RxNorm: 927639 TAKE ONE TABLET BY [facility] DAILY WHILE ON PREDNISONE 01/25/2017 09/12/2018 Inactive Zithromax Z-Jacek 250 mg tablet RxNorm: 412291 1 Tablet(s) PO UD 01/24/2017 01/03/2018 Inactive potassium chloride E R 10 mEq tablet,extended release RxNorm: 285706 TAKE ONE TABLET BY MOUTH DAILY 01/17/2017 03/15/2017 Inactive clonidine HCl 0.1 mg tablet RxNorm: 709510 TAKE ONE TABLET BY [facility] EVERY NIGHT AT BEDTIME 01/17/2017 02/13/2017 Inactive potassium chloride E R 10 mEq tablet,extended release RxNorm: 007146 TAKE ONE TABLET BY MOUTH DAILY 12/16/2016 01/14/2017 Inactive venlafaxine ER 150 m g capsule,extended release 24 hr RxNorm: 387537 TAKE ONE CAPSULE BY MOUTH DAILY 11/18/2016 02/15/2017 Inactive clonidine HCl 0.1 mg tablet RxNorm: 251850 TAKE ONE TABLET BY MO [facility] EVERY NIGHT AT BEDTIME 11/08/2016 01/06/2017 Inactive clonidine HCl 0.1 mg tablet RxNorm: 204958 1 Tablet(s) BID 10/19/2016 01/16/2017 Inactive potassium chloride E R 10 mEq tablet,extended release RxNorm: 903801 TAKE ONE TABLET BY MOUTH DAILY 10/15/2016 11/13/2016 Inactive Zithromax Z-Jacek 250 mg tablet RxNorm: 267533 1 Tablet(s) PO UD 10/13/2016 01/03/2018 Inactive potassium chloride E R 10 mEq tablet,extended release RxNorm: 846408 TAKE ONE TABLET BY MOUTH DAILY 10/12/2016 10/14/2016 Inactive potassium chloride E R 10 mEq tablet,extended release RxNorm: 550879 Tablet(s) BID TAKE ONE TABLET BY MOUTH TWICE DAILY 09/17/2016 10/11/2016 Inactive potassium chloride E R 10 mEq tablet,extended release RxNorm: 759939 TAKE ONE TABLET BY MOUTH DAILY 09/13/2016 09/16/2016 Inactive clonidine HCl 0.1 mg tablet RxNorm: 135397 Tablet(s) TAKE ONE TA BLET BY MOUTH EVERY NIGHT AT BEDTIME 08/12/2016 10/18/2016 Inactive gabapentin 300 mg ca psule RxNorm: 506857 1 Capsule(s) PO QHS 08/10/2016 No Stop Date Active venlafaxine ER 150 m g capsule,extended release 24 hr RxNorm: 931236 TAKE ONE CAPSULE BY MOUTH DAILY 08/09/2016 11/06/2016 Inactive metoprolol succinate ER 50 mg tablet,extended release 24 hr RxNorm: 868094 TAKE ONE TABLET BY MOUTH DAILY 07/29/2016 01/24/2017 Inactive clonidine HCl 0.1 mg tablet RxNorm: 340851 TAKE ONE TABLET BY MO [facility] EVERY NIGHT AT BEDTIME 07/21/2016 08/11/2016 Inactive potassium chloride E R 10 mEq tablet,extended release RxNorm: 917358 TAKE ONE TABLET BY MOUTH DAILY 07/14/2016 09/11/2016 Inactive Prescriber not associated w ith this practice or location acyclovir 400 mg tablet RxNorm: 193658 2 Tablet(s) PO QID 07/02/2016 07/11/2016 Inactive cyclobenzaprine 5 mg tablet RxNorm: 624868 1-2 Tablet(s) PO TID as needed 07/02/2016 07/06/2016 In active capsaicin 0.1 % topi reagan cream RxNorm: 381449 1 Application TOP TID as needed 07/02/2016 09/12/2018 In active Protonix 40 mg table t,delayed release RxNorm: 029848 TAKE ONE TABLET BY [facility] DAILY WHILE ON PREDNISONE 06/29/2016 12/25/2016 Inactive clonidine HCl 0.1 mg tablet RxNorm: 837951 1 Tablet(s) PO QHS 06/25/2016 07/20/2016 Inactive calcium carbonate 50 0 mg calcium (1,250 mg) tablet RxNorm: 358217 TAKE ONE TABLET BY MOUTH DAILY WHILE ON PREDNISONE. MAY STOP TAKING WHEN PREDNISONE IS COMPLETE 06/01/2016 09/12/2018 In active Vitamin D3 1,000 uni t tablet RxNorm: 124818 1 Tablet(s) PO daily . May stop taking once prednisone is complete. 04/26/2016 09/12/2018 Inactive metoprolol succinate ER 50 mg tablet,extended release 24 hr RxNorm: 426761 1.5 Tablet(s) PO daily 04/06/2016 06/23/2016 Inactive prednisone 10 mg tablet RxNorm: 418391 1 Tablet(s) PO daily 04/02/2016 06/21/2017 Inactive metoprolol succinate ER 50 mg tablet,extended release 24 hr RxNorm: 617014 1 Tablet(s) PO daily 03/18/2016 04/05/2016 Inactive amlodipine 10 mg tablet RxNorm: 031429 1/2 Tablet(s) PO daily 02/24/2016 06/21/2016 Inactive metoprolol succinate ER 25 mg tablet,extended release 24 hr RxNorm: 915260 1 Tablet(s) PO daily 02/24/2016 03/16/2016 Inactive calcium carbonate 50 0 mg calcium (1,250 mg) tablet RxNorm: 838049 TAKE ONE TABLET BY MOUTH DAILY WHILE ON PREDNISONE. MAY STOP TAKING WHEN PREDNISONE IS COMPLETE 02/16/2016 05/15/2016 In active Protonix 40 mg table t,delayed release RxNorm: 347829 TAKE ONE TABLET BY [facility] DAILY WHILE ON PREDNISONE 02/10/2016 05/09/2016 Inactive venlafaxine ER 150 m g capsule,extended release 24 hr RxNorm: 191316 Capsule(s) TAKE ONE CAPSULE BY MOUTH DAILY 12/10/2015 04/07/2016 Inactive calcium carbonate 50 0 mg calcium (1,250 mg) tablet RxNorm: 462614 1 Tablet(s) PO daily 12/01/2015 01/29/2016 Inactive Vitamin D3 1,000 uni t tablet RxNorm: 392825 1 Tablet(s) PO daily 12/01/2015 03/29/2016 Inactive levothyroxine 50 mcg tablet RxNorm: 338663 1 Tablet(s) PO daily 12/01/2015 11/24/2016 Inactive amlodipine 10 mg tablet RxNorm: 722750 1 Tablet(s) PO daily 11/19/2015 11/18/2015 Inactive amlodipine 10 mg tablet RxNorm: 754470 1 Tablet(s) PO daily 11/19/2015 02/23/2016 Inactive amlodipine 5 mg tablet RxNorm: 721091 1 Tablet(s) PO daily 11/17/2015 11/18/2015 Inactive venlafaxine ER 150 m g capsule,extended release 24 hr RxNorm: 438398 TAKE ONE CAPSULE BY MOUTH DAILY 11/13/2015 12/09/2015 Inactive Protonix 40 mg table t,delayed release RxNorm: 858800 1 Tablet(s) PO daily while on prednisone 2015 02/09/2016 Inactive prednisone 10 mg tablet RxNorm: 131763 2 Tablet(s) PO UD 10/30/2015 04/01/2016 Inactive 60mg for 2 days, then 50mg for 2 days, then 40mg for 2 days, then 30mg for 2 days, then 20mg for 2 days, then 10mg for 2 days, then 5mg for 2 days potassium chloride E R 10 mEq tablet,extended release RxNorm: 818155 TAKE ONE TABLET BY MOUTH DAILY 09/22/2015 12/19/2015 Inactive venlafaxine ER 150 m g capsule,extended release 24 hr RxNorm: 088371 TAKE ONE CAPSULE BY MOUTH DAILY 09/08/2015 11/06/2015 Inactive cefdinir 300 mg capsule RxNorm: 830239 1 Capsule(s) PO BID 08/20/2015 08/22/2015 Inactive cefdinir 300 mg capsule RxNorm: 808951 1 Capsule(s) PO BID 08/12/2015 08/18/2015 Inactive Kenalog 40 mg/mL jenna pension for injection RxNorm: 2923848 1 Milliliter(s) Inj 08/04/2015 08/04/2015 In active triamterene 37.5 mg- hydrochlorothiazide 25 mg tablet RxNorm: 480561 1 Tablet(s) PO BID 06/17/2015 08/03/2015 Inactive potassium chloride E R 10 mEq tablet,extended release RxNorm: 374205 1 Tablet(s) PO daily 05/30/2015 08/03/2015 Inactive Levaquin 250 mg tablet RxNorm: 029556 Tablet(s) PO UD 500 mg day one, then 250 mg day 2-7 05/27/2015 08/03/2015 Inactive prednisone 10 mg tablet RxNorm: 277141 Tablet(s) PO UD 05/27/2015 10/29/2015 Inactive 60mg for 2 days, then 50mg for 2 days, then 40mg for 2 days, then 30mg for 2 days, then 20mg for 2 days, then 10mg for 2 days, then 5mg for 2 days albuterol sulfate 1. 25 mg/3 mL solution for nebulization RxNorm: 056197 3 Milliliter(s) INH Q4-6H as needed dyspnea 05/23/2015 09/12/2018 Inactive Zithromax 500 mg tablet RxNorm: 245821 1 Tablet(s) PO daily 05/16/2015 05/15/2015 Inactive Zithromax 500 mg tablet RxNorm: 667719 1 Tablet(s) PO daily 05/16/2015 05/20/2015 Inactive prednisone 20 mg tablet RxNorm: 669277 3 Tablet(s) PO daily 05/12/2015 05/16/2015 Inactive venlafaxine ER 150 m g capsule,extended release 24 hr RxNorm: 033473 TAKE ONE CAPSULE BY MOUTH DAILY 05/12/2015 08/09/2015 Inactive Keflex 500 mg capsule RxNorm: 374446 1 Capsule(s) PO TID 05/12/2015 05/18/2015 Inactive simvastatin 20 mg ta blet RxNorm: 723497 1 Tablet(s) PO daily 04/10/2015 04/09/2015 Inactive simvastatin 20 mg ta blet RxNorm: 519743 1 Tablet(s) PO daily 04/10/2015 08/11/2015 Inactive venlafaxine ER 150 m g capsule,extended release 24 hr RxNorm: 526699 TAKE ONE CAPSULE BY MOUTH DAILY 04/08/2015 05/07/2015 Inactive amlodipine 5 mg tablet RxNorm: 258529 1 Tablet(s) PO daily 03/07/2015 03/06/2015 Inactive amlodipine 5 mg tablet RxNorm: 141994 1 Tablet(s) PO daily 03/07/2015 07/04/2015 Inactive venlafaxine ER 150 m g capsule,extended release 24 hr RxNorm: 408412 1 Capsule(s) PO daily 01/29/2015 03/29/2015 Inactive Co Q-10 oral RxNorm: 25005 oral No Start Date Active gabapentin 100 mg ca psule RxNorm: 092290 1 Capsule(s) PO QAM No Start Date Active albuterol sulfate 1. 25 mg/3 mL solution for nebulization RxNorm: 386173 3 Milliliter(s) INH Q4-6H as needed dyspnea No Start Date 05/22/2015 Inactive levothyroxine 50 mcg tablet RxNorm: 235342 1 Tablet(s) PO daily No Start Date 11/30/2015 Inactive metoprolol succinate ER 50 mg tablet,extended release 24 hr RxNorm: 958312 1 Tablet(s) PO daily No Start Date 09/12/2018 Inactive gabapentin 300 mg ca psule RxNorm: 112948 1 Capsule(s) PO QHS No Start Date 08/09/2016 Inactive vitamin B complex oral RxNorm: 44355 oral No Start Date 09/12/2018 Inactive Vitamin D3 1,000 uni t tablet RxNorm: 753309 1 Tablet(s) PO daily No Start Date 11/30/2015 Inactive Protonix 40 mg table t,delayed release RxNorm: 842534 1 Tablet(s) PO daily while on prednisone No Start Date 10/30/2015 Inactive calcium carbonate oral RxNorm: oral No Start Date 11/30/2015 Inactive potassium chloride E R 10 mEq tablet,extended release RxNorm: 759729 1 Tablet(s) PO daily No Start Date 05/29/2015 Inactive Levaquin 250 mg tablet RxNorm: 126001 Tablet(s) PO UD 500 mg day one, then 250 mg day 2-7 No Start Date 05/26/2015 Inactive triamterene 37.5 mg- hydrochlorothiazide 25 mg tablet RxNorm: 081548 1 Tablet(s) PO BID No Start Date 06/16/2015 Inactive prednisone 10 mg tablet RxNorm: 371374 Tablet(s) PO UD No Start Date 05/26/2015 Inactive 60mg for 2 days, then 50mg for 2 days, then 40mg for 2 days, then 30mg for 2 days, then 20mg for 2 days, then 10mg for 2 days, then 5mg for 2 days venlafaxine ER 150 m g capsule,extended release 24 hr RxNorm: 305051 1 Capsule(s) PO daily No Start Date 01/28/2015 Inactive Medication Administered Medication Codes Instruc tions Start Date Status Kenalog 40 mg/mL suspension for injection RxNorm: 5257223 1.5Milliliter 06/22/2017 No longer Active Kenalog 40 mg/mL suspension for injection RxNorm: 0759426 1Milliliter 08/04/2015 N o longer Active Immunizations [...] Item Item Code Result Date Comp Metabolic Pty858 NA 142 mEq/L 10/12/2018 Comp Metabolic Wwf984 K 4.0 mEq/L 10/12/2018 Comp Metabolic Gqq873 CL 105 mEq/L 10/12/2018 Comp Metabolic Ckg550 CO2 21.0 mEq/L 10/12/2018 Comp Metabolic Nrl728 AN ION GAP 20 10/12/2018 Comp Metabolic Ser159 GL UCOSE 105 mg/dL 10/12/2018 Comp Metabolic Mdw676 Cr eat 1.8 mg/dL 10/12/2018 Comp Metabolic Mmk973 eG FR 30 ml/min/1.73m2 10/12 Comp Metabolic Yek307 BUN 19 mg/dL 10/12/2018 Comp Metabolic Bsp616 B/ C Ratio 10.5 Ratio 10/12/2018 Comp Metabolic Tsm288 CA LCIUM 9.0 mg/dL 10/12/2018 Comp Metabolic Zfm098 AL K PHOS 74 U/L 10/12/2018 Comp Metabolic Ejb372 T(SGOT) 21 U/L 10/12/2018 Comp Metabolic Tvs822 AL T(SGPT) 22 U/L 10/12/2018 Comp Metabolic Vto420 BI LI T 0.4 mg/dL 10/12/2018 Comp Metabolic Nsm901 AL BUMIN 3.9 g/dL 10/12/2018 Comp Metabolic Opr072 TP RO 6.1 g/dL 10/12/2018 Comp Metabolic Nwi129 GL OB 2.2 g/dL 10/12/2018 Comp Metabolic Rzh937 A/ G Ratio 1.7 Ratio 10/12/2018 Comp Metabolic Xoa902 Os mo 286 mOsmo 10/12/2018 Cbc With [...] 28.0 pg 10/12/2018 Cbc With Differential Ord2 [place]% 16.6 % 10/12/2018 Cbc With Differential Ord2 [...] 1.77 K/ul 10/12/2018 Cbc With Differential Ord2 [place] ABS# 2.4 K/ul 10/12/2018 Cbc With Differential Ord2 Eos ABS# 0.0 K/ul 10/12/2018 Cbc With Differential Ord2 Baso ABS# 0.0 K/ul 10/12/2018 Electrolytes Ord62 NA 140 mEq/L 09/15/2018 Electrolytes Ord62 K 4.2 mEq/L 09/15/2018 Electrolytes Ord62 CL 111 mEq/L 09/15/2018 Electrolytes Ord62 CO2 20.0 mEq/L 09/15/2018 Electrolytes Ord62 ANION GAP 13 09/15/2018 Comp Metabolic Mft695 NA 140 mEq/L 01/10/2018 Comp Metabolic Euu152 K 3.8 mEq/L 01/10/2018 Comp Metabolic Pcl485 CL 106 mEq/L 01/10/2018 Comp Metabolic Ykb310 CO2 25.0 mEq/L 01/10/2018 Comp Metabolic Fhz406 AN ION GAP 13 01/10/2018 Comp Metabolic Lkl521 GL UCOSE 110 mg/dL 01/10/2018 Comp Metabolic Xue714 Cr eat 1.5 mg/dL 01/10/2018 Comp Metabolic Gbs269 eG FR 37 ml/min/1.73m2 01/10 Comp Metabolic Kkh084 BUN 23 mg/dL 01/10/2018 Comp Metabolic Yak143 B/ C Ratio 15.3 Ratio 01/10/2018 Comp Metabolic Maq718 CA LCIUM 9.2 mg/dL 01/10/2018 Comp Metabolic Xnm925 AL K PHOS 87 U/L 01/10/2018 Comp Metabolic Ccf534 T(SGOT) 15 U/L 01/10/2018 Comp Metabolic Iis880 AL T(SGPT) 9 U/L 01/10/2018 Comp Metabolic Qyy033 BI LI T 0.4 mg/dL 01/10/2018 Comp Metabolic Bfv533 AL BUMIN 3.8 g/dL 01/10/2018 Comp Metabolic Puj489 TP RO 6.2 g/dL 01/10/2018 Comp Metabolic Ail437 GL OB 2.4 g/dL 01/10/2018 Comp Metabolic Vds716 A/ G Ratio 1.6 Ratio 01/10/2018 Comp Metabolic Oln570 Os mo 284 mOsmo 01/10/2018 C-Reactive Protein [...] 27.6 pg 01/10/2018 Cbc With Differential Ord2 [place]% 15.2 % 01/10/2018 Cbc With Differential Ord2 [...] 1.47 K/ul 01/10/2018 Cbc With Differential Ord2 [place] ABS# 1.0 K/ul 01/10/2018 Cbc With Differential Ord2 Eos ABS# 0.1 K/ul 01/10/2018 Cbc With Differential Ord2 Baso ABS# 0.0 K/ul 01/10/2018 Sed Rate Ord21 ESR 12 mm/hr 01/10/2018 Free T4 Xik542 FREE T4 0.57 ng/dL 12/06/2017 Tsh Ord6 TSH (3rd IS) 7.40 uIU/mL 12/06/2017 C A/B FLU [id number] Influe nza A Scr Negative 06/22/2017 C A/B FLU [id number] Influe nza B Scr Negative 06/22/2017 C A/B FLU [id number] Influe nza Intrp B AG:PRID:PT:NOSE:NOM:IF See Footnote 06/22/2017 Comp Metabolic Egm929 NA 140 mEq/L 08/30/2016 Comp Metabolic Omq087 K 3.3 mEq/L 08/30/2016 Comp Metabolic Qwc377 CL 104 mEq/L 08/30/2016 Comp Metabolic Xbd074 CO2 26.0 mEq/L 08/30/2016 Comp Metabolic Hbw577 AN ION GAP 13 08/30/2016 Comp Metabolic Zro347 GL UCOSE 143 mg/dL 08/30/2016 Comp Metabolic Bog750 Cr eat 1.3 mg/dL 08/30/2016 Comp Metabolic Gpi330 eG FR 43 ml/min/1.73m2 08/30 Comp Metabolic Bdh951 BUN 19 mg/dL 08/30/2016 Comp Metabolic Lct895 B/ C Ratio 14.3 Ratio 08/30/2016 Comp Metabolic Kky713 CA LCIUM 10.0 mg/dL 08/30/2016 Comp Metabolic Ado195 AL K PHOS 67 U/L 08/30/2016 Comp Metabolic Uhi710 T(SGOT) 28 U/L 08/30/2016 Comp Metabolic Cmo160 AL T(SGPT) 43 U/L 08/30/2016 Comp Metabolic Gic037 BI LI T 0.4 mg/dL 08/30/2016 Comp Metabolic Jmk785 AL BUMIN 4.0 g/dL 08/30/2016 Comp Metabolic Iod447 TP RO 6.2 g/dL 08/30/2016 Comp Metabolic Kxt044 GL OB 2.2 g/dL 08/30/2016 Comp Metabolic Yxp251 A/ G Ratio 1.8 Ratio 08/30/2016 Comp Metabolic Wrv497 Os mo 284 mOsmo 08/30/2016 %Hba1C Hiq262 % HbA1c 20230-4 6.1 % 08/30/2016 %Hba1C Csp631 Gluc Ave 128 mg/dL 08/30/2016 Free T4 Rgt738 FREE T4 0.75 ng/dL 06/25/2016 Tsh Ord6 [...] Ord90 Mag 2.1 mg/dL 12/16/2015 Free T4 Fpa833 FREE T4 0.92 ng/dL 12/16/2015 Tsh Ord6 [...] 28.5 pg 08/04/2015 Cbc With Differential Ord2 [place]% 6.1 % 08/04/2015 Cbc With Differential Ord2 [...] 0.73 K/ul 08/04/2015 Cbc With Differential Ord2 [place] ABS# 0.5 K/ul 08/04/2015 Cbc With Differential Ord2 Eos ABS# 0.1 K/ul 08/04/2015 Cbc With Differential Ord2 Baso ABS# 0.0 K/ul 08/04/2015 Cbc With Differential Ord2 New Analyzer Notice Please note new ref ranges s tarting 07-09-2015 due to implemntation of new five part differential hematolgy analyzer. 08/04/2015 C-Reactive Protein Qnt Crqnt CRP 0.8 mg/dl 08/04/2015 Comp Metabolic Ret054 NA 139 mEq/L 08/04/2015 Comp Metabolic Zuv749 K 3.4 mEq/L 08/04/2015 Comp Metabolic Eae072 CL 109 mEq/L 08/04/2015 Comp Metabolic Wmo583 CO2 22.0 mEq/L 08/04/2015 Comp Metabolic Vpg068 AN ION GAP 11 08/04/2015 Comp Metabolic Onn607 GL UCOSE 177 mg/dL 08/04/2015 Comp Metabolic Eeg667 Cr eat 1.0 mg/dL 08/04/2015 Comp Metabolic Zrr070 eG FR 64 ml/min/1.73m2 08/04 Comp Metabolic Sns653 BUN 35 mg/dL 08/04/2015 Comp Metabolic Lob546 B/ C Ratio 36.8 Ratio 08/04/2015 Comp Metabolic Gam165 CA LCIUM 8.5 mg/dL 08/04/2015 Comp Metabolic Btb603 AL K PHOS 57 U/L 08/04/2015 Comp Metabolic Tgg858 T(SGOT) 21 U/L 08/04/2015 Comp Metabolic Uod158 AL T(SGPT) 63 U/L 08/04/2015 Comp Metabolic Gee344 BI LI T 0.3 mg/dL 08/04/2015 Comp Metabolic Krn536 AL BUMIN 3.1 g/dL 08/04/2015 Comp Metabolic Scn418 TP RO 5.1 g/dL 08/04/2015 Comp Metabolic Hpk246 GL OB 2.0 g/dL 08/04/2015 Comp Metabolic Zvq141 A/ G Ratio 1.6 Ratio 08/04/2015 Comp Metabolic Rgr068 Os mo 290 mOsmo 08/04/2015 Cpk Ord61 CPK 52 U/L 08/04/2015 Random Urine Protein/Creatinine Ratio Gvr7129 U Prot 8.5 mg/dl 05/27/2015 Random Urine Protein/Creatinine Ratio Etk4533 U CREAT 201.0 mg/dL 05/27/2015 Random Urine Protein/Creatinine Ratio Bmz4106 R MTP/Creat Ratio 0.04 05/27/2015 Urinalysis Ord28 [...] hours from collection if refrigerated) 05/27/2015 Renal Vwe645 NA 136 mEq/L 05/26/2015 Renal Twr073 K 3.3 mEq/L 05/26/2015 Renal Hpi091 CL 99 mEq/L 05/26/2015 Renal Pix378 CO2 25.0 mEq/L 05/26/2015 Renal Eoo364 ANION GAP 15 05/26/2015 Renal Ceg257 Osmo 274 mOsmo 05/26/2015 Renal Cqm652 GLUCOSE 106 mg/dL 05/26/2015 Renal Dyc870 BUN 17 mg/dL 05/26/2015 Renal Xwm831 Creat 1.4 mg/dL 05/26/2015 Renal Hzl821 eGFR 40 ml/min/1.73m2 05/26/2015 Renal Jqa244 B/C Ratio 12.0 Ratio 05/26/2015 Renal Nuu770 CALCIUM 9.3 mg/dL 05/26/2015 Renal Awa446 PHOS 3.4 mg/dL 05/26/2015 Renal Amm891 ALBUMIN 3.4 g/dL 05/26/2015 Cbc With Differential [...] Ord2 RDW 14.3 % 04/21/2015 Free T4 Fbj067 FREE T4 0.91 ng/dL 04/21/2015 %Hba1C Jcp668 % HbA1c 79719-5 5.8 % 04/21/2015 %Hba1C Yww616 Gluc Ave 120 mg/dL 04/21/2015 Comp Metabolic Sfk316 NA 137 mEq/L 04/21/2015 Comp Metabolic Lgr099 K 3.6 mEq/L 04/21/2015 Comp Metabolic Tap766 CL 98 mEq/L 04/21/2015 Comp Metabolic Qgl624 CO2 25.0 mEq/L 04/21/2015 Comp Metabolic Sep013 AN ION GAP 18 04/21/2015 Comp Metabolic Wdv960 GL UCOSE 83 mg/dL 04/21/2015 Comp Metabolic Iyw080 Cr eat 1.6 mg/dL 04/21/2015 Comp Metabolic Itp797 eG FR 36 ml/min/1.73m2 04/21 Comp Metabolic Bpu242 BUN 28 mg/dL 04/21/2015 Comp Metabolic Vpd348 B/ C Ratio 17.9 Ratio 04/21/2015 Comp Metabolic Qwo446 CA LCIUM 9.5 mg/dL 04/21/2015 Comp Metabolic Kbl099 AL K PHOS 60 U/L 04/21/2015 Comp Metabolic Ngj512 T(SGOT) 22 U/L 04/21/2015 Comp Metabolic Uft069 AL T(SGPT) 10 U/L 04/21/2015 Comp Metabolic Cmf929 BI LI T 0.4 mg/dL 04/21/2015 Comp Metabolic Yxj036 AL BUMIN 4.0 g/dL 04/21/2015 Comp Metabolic Sno522 TP RO 6.8 g/dL 04/21/2015 Comp Metabolic Oxv357 GL OB 2.8 g/dL 04/21/2015 Comp Metabolic Wef494 A/ G Ratio 1.4 Ratio 04/21/2015 Comp Metabolic Wdc325 Os mo 278 mOsmo 04/21/2015 Tsh Ord6 [...] No alteration of consciousness 10/30/2015 Psychiatric anxiety 0 10/2015 Psychiatric depression 0 10/30/2015 Constitutional No [...] Respiratory dyspnea on exertion 09/23/2015 Respiratory dyspnea /2 02/2016 Gastrointestinal No abdominal pain 09/23/2015 Gastrointestinal No [...] clear 04/21/2015 None Full Exam - General 1995 Eyes pupils and irises Overall: pupils equal, round, reactive to light and accomodation 04/21/2015 None Procedures Procedure Codes Date THER/PROPH/DIAG INJ SC/IM CPT-4: 67041 06/22/2017 TRIAMCINOLONE ACET I [place] NOS CPT-4: J3301 06/22/2017 THER/PROPH/DIAG INJ SC/IM CPT-4: 11913 08/04/2015 TRIAMCINOLONE ACET I [place] NOS CPT-4: J3301 08/04/2015 Vital Signs Date Vital 01/22/2019 Blood Pressure 1: 220/128 Code: 8480-6 Heart Rate 1: 100 bpm SpO2: 98% 10/12/2018 Blood Pressure 1: 110/74 Code: 8480-6 Heart Rate 1: 105 bpm Height: 5'1" SpO2: 95% Weight: 09/13/2018 Blood Pressure 1: 156/86 Code: 8480-6 BMI: 32.3 Code: 53726-1 Heart Rate 1: 90 bpm Height: 5'1" SpO2: 98% Weight: 171 lbs 05/04/2018 Blood Pressure 1: 158/88 Code: 8480-6 BMI: 33.3 Code: 15524-4 Heart Rate 1: 63 bpm Height: 5'1" SpO2: 98% Weight: 176 lbs 01/10/2018 Blood Pressure 1: 138/88 Code: 8480-6 BMI: 31.9 Code: 33552-6 Heart Rate 1: 78 bpm Height: 5'1" SpO2: 99% Weight: 169 lbs 12/06/2017 Blood Pressure 1: 158/98 Code: 8480-6 BMI: 32.3 Code: 79839-9 Heart Rate 1: 60 bpm Height: 5'1" SpO2: 100% Weight: 171 lbs 06/22/2017 Blood Pressure 1: 168/92 Code: 8480-6 BMI: 32.6 Code: 36238-1 Heart Rate 1: 133 bpm Height: 5'1" SpO2: 97% Temperature: 37.6 (C ) / 99.7 (F) Weight: 172 lbs 8 oz 03/02/2017 Blood Pressure 1: 168/90 Code: 8480-6 BMI: 35.0 Code: 68500-1 Heart Rate 1: 80 bpm Height: 5'1" SpO2: 94% Weight: 185 lbs 01/24/2017 Blood Pressure 1: 130/68 Code: 8480-6 BMI: 35.3 Code: 79001-2 Heart Rate 1: 66 bpm Height: 5'1" SpO2: 98% Weight: 187 lbs 10/13/2016 Blood Pressure 1: 136/74 Code: 8480-6 BMI: 35.1 Code: 85829-3 Heart Rate 1: 71 bpm Height: 5'1" SpO2: 97% Weight: 186 lbs 08/30/2016 Blood Pressure 1: 128/80 Code: 8480-6 BMI: 35.0 Code: 87247-1 Heart Rate 1: 75 bpm Height: 5'1" SpO2: 96% Weight: 185 lbs 8 oz 07/02/2016 Blood Pressure 1: 140/78 Code: 8480-6 Heart Rate 1: 63 bpm Height: 5'1" SpO2: 98% 06/24/2016 Blood Pressure 1: 148/100 Code: 8480-6 BMI: 34.2 Code: 75459-8 Heart Rate 1: 110 bpm Height: 5'1" SpO2: 94% Weight: 181 lbs 05/04/2016 Blood Pressure 1: 150/90 Code: 8480-6 Blood Pressure 1: 134/82 Code: 8480-6 BMI: 34.6 Code: 40773-8 Heart Rate 1: 74 bpm Height: 5'1" SpO2: 98% Weight: 183 lbs 04/06/2016 Blood Pressure 1: 156/92 Code: 8480-6 Blood Pressure 1: 158/88 Code: 8480-6 BMI: 34.8 Code: 38156-7 Heart Rate 1: 69 bpm Height: 5'1" SpO2: 97% Weight: 184 lbs 03/18/2016 Blood Pressure 1: 148/90 Code: 8480-6 BMI: 35.1 Code: 35117-2 Heart Rate 1: 106 bpm Height: 5'1" SpO2: 94% Weight: 186 lbs 03/11/2016 Blood Pressure 1: 140/90 Code: 8480-6 BMI: 35.1 Code: 20041-2 Heart Rate 1: 103 bpm Height: 5'1" SpO2: 96% Weight: 186 lbs 02/24/2016 Blood Pressure 1: 130/80 Code: 8480-6 BMI: 34.4 Code: 63954-9 Heart Rate 1: 110 bpm Height: 5'1" SpO2: 96% Weight: 182 lbs 12/16/2015 Blood Pressure 1: 144/98 Code: 8480-6 BMI: 33.8 Code: 64157-4 Heart Rate 1: 97 bpm Height: 5'1" SpO2: 98% Weight: 179 lbs 10/30/2015 Blood Pressure 1: 138/88 Code: 8480-6 BMI: 33.6 Code: 30474-8 Heart Rate 1: 88 bpm Height: 5'1" SpO2: 98% Weight: 178 lbs 09/23/2015 Blood Pressure 1: 152/94 Code: 8480-6 BMI: 32.7 Code: 44842-4 Heart Rate 1: 83 bpm Height: 5'1" SpO2: 97% Weight: 173 lbs 09/10/2015 Blood Pressure 1: 136/82 Code: 8480-6 BMI: 32.1 Code: 11211-4 Heart Rate 1: 105 bpm Height: 5'1" SpO2: 97% Weight: 170 lbs 08/12/2015 Blood Pressure 1: 132/70 Code: 8480-6 BMI: 31.2 Code: 10085-6 Heart Rate 1: 88 bpm Height: 5'1" SpO2: 95% Temperature: 36.7 (C ) / 98.0 (F) Weight: 165 lbs 08/04/2015 Blood Pressure 1: 136/80 Code: 8480-6 BMI: 31.0 Code: 77174-8 Heart Rate 1: 110 bpm Height: 5'1" SpO2: 98% Weight: 164 lbs 05/16/2015 Blood Pressure 1: 138/88 Code: 8480-6 BMI: 32.9 Code: 20981-2 Heart Rate 1: 87 bpm Height: 5'1" SpO2: 90% Weight: 174 lbs 05/12/2015 BMI: 31.7 Code: 33432-7 Height: 5'1" Weight: 168 lbs 04/21/2015 Blood Pressure 1: 124/82 Code: 8480-6 BMI: 32.1 Code: 60116-6 Heart Rate 1: 87 bpm Height: 5'1" [...] of the thyroid 12/06/2017 None hypothyroid Quality machine try out setter marley 12/06/2017 None hypothyroid Onset and Resolution [...] of the thyroid 08/30/2016 None hypothyroid Quality machine try out setter marley 08/30/2016 None hypothyroid Onset and Resolution [...] of the thyroid 05/04/2016 None hypothyroid Quality machine try out setter marley 05/04/2016 None hypothyroid Onset and Resolution [...] of the thyroid 04/06/2016 None hypothyroid Quality machine try out setter marley 04/06/2016 None hypothyroid Onset and Resolution [...] Alleviating Factors medication 12/16/2015 None hypothyroid Quality machine try out setter marley 12/16/2015 None hypothyroid Location at the [...] Encounters Encounter Performer Loca tion Codes Date ([id number]) Miscellaneou s no charge Diagnosis: Essential (primary) hypertension[ICD10: I10] Meghana Maya MD, C CPT-4: 19006 01/22/2019 93727 EST. PATIENT, LEVEL III Diagnosis: Chronic kidney disease, stage 3 (moderate)[ICD10: N18.3] Diagnosis: Essential (primary) hypertension[ICD10: I10] Diagnosis: Encounter for follow-up examination after completed treatment for conditions other than malignant neoplasm[ICD10: Z09] Britney Maya MD, [facility] CPT-4: 74040 10/12/2018 33412 EST. PATIENT, LEVEL III Diagnosis: Hypokalemia[ICD10: E87.6] Diagnosis: Interstitial pulmonary disease, unspecified[ICD10: J84.9] Britney Maya MD, [facility] CPT-4: 12832 09/13/2018 99975 EST. PATIENT, LEVEL IV Diagnosis: Essential (primary) hypertension[ICD10: I10] Diagnosis: Interstitial pulmonary disease, unspecified[ICD10: J84.9] Diagnosis: Chronic kidney disease, stage 3 (moderate)[ICD10: N18.3] Diagnosis: Mixed hyperlipidemia[ICD10: E78.2] Britney Maya MD, [facility] CPT-4: 73953 05/04/2018 16044 EST. PATIENT, LEVEL IV Diagnosis: Essential (primary) hypertension[ICD10: I10] Diagnosis: Interstitial pulmonary disease, unspecified[ICD10: J84.9] Diagnosis: Chronic kidney disease, stage 3 (moderate)[ICD10: N18.3] Diagnosis: Mixed hyperlipidemia[ICD10: E78.2] Britney Maya MD, [facility] CPT-4: 40807 01/10/2018 03767 EST. PATIENT, LEVEL IV Diagnosis: Other specified hypothyroidism[ICD10: E03.8] Diagnosis: Essential (primary) hypertension[ICD10: I10] Britney Maya MD, [facility] CPT-4: 66679 12/06/2017 07167 EST. PATIENT, LEVEL IV Diagnosis: Other malaise[ICD10: R53.81] Diagnosis: Other fatigue[ICD10: R53.83] Britney Maya MD, [facility] CPT-4: 73825 06/22/2017 07028 EST. PATIENT, LEVEL IV Diagnosis: Acute laryngopharyngitis[ICD10: J06.0] Diagnosis: Other acute sinusitis[ICD10: J01.80] Diagnosis: Other allergic rhinitis[ICD10: J30.89] Britney Maya MD, [facility] CPT-4: 94259 03/02/2017 95098 EST. PATIENT, LEVEL IV Diagnosis: Generalized hyperhidrosis[ICD10: R61] Diagnosis: Other acute sinusitis[ICD10: J01.80] Diagnosis: Other fatigue[ICD10: R53.83] Diagnosis: Interstitial pulmonary disease, unspecified[ICD10: J84.9] Britney Maya MD, [facility] CPT-4: 13295 01/24/2017 28372 EST. PATIENT, LEVEL IV Diagnosis: Acute laryngopharyngitis[ICD10: J06.0] Diagnosis: Other acute sinusitis[ICD10: J01.80] Britney aMya MD, [facility] CPT- 4: 65351 10/13/2016 ([id number]) 61419 EST. 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 PATIENT, LEVEL IV Diagnosis: Pain in thoracic spine[ICD10: M54.6] Diagnosis: Pain in left shoulder[ICD10: M25.512] Diagnosis: Zoster without complications[ICD10: B02.9] Britney Maya MD, [facility] CPT-4: 91958 07/02/2016 48699 EST. PATIENT, LEVEL III Diagnosis: Other specified hypothyroidism[ICD10: E03.8] Diagnosis: Menopausal and female climacteric states[ICD10: N95.1] Diagnosis: Essential (primary) hypertension[ICD10: I10] Britney Maya MD, [facility] CPT-4: 30132 06/24/2016 ([id number]) 48591 EST. P ATIENT, LEVEL IV Diagnosis: Essential (primary) hypertension[ICD10: I10] Diagnosis: Atrophy of thyroid (acquired)[ICD10: E03.4] Diagnosis: Pain in left foot[ICD10: M79.672] Meghana Maya MD, [facility] CPT-4: 23524 05/04/2016 ([id number]) 11414 EST. P ATIENT, LEVEL IV Diagnosis: Essential (primary) hypertension[ICD10: I10] Diagnosis: Pain in left leg[ICD10: M79.605] Diagnosis: Pain in left foot[ICD10: M79.672] Diagnosis: Atrophy of thyroid (acquired)[ICD10: E03.4] Meghana Maya MD, C CPT-4: 35868 04/06/2016 ([id number]) 81093 EST. P ATIENT, LEVEL III Diagnosis: Essential (primary) hypertension[ICD10: I10] Diagnosis: Localized edema[ICD10: R60.0] Catie Maya MD, [facility] CPT- 4: 53822 03/18/2016 ([id number]) 81806 EST. P ATIENT, LEVEL III Diagnosis: Essential (primary) hypertension[ICD10: I10] Diagnosis: Pain in left foot[ICD10: M79.672] Catie Maya MD, [facility] CPT- 4: 77840 03/11/2016 ([id number]) 48685 EST. P ATIENT, LEVEL III Diagnosis: Localized edema[ICD10: R60.0] Diagnosis: Essential (primary) hypertension[ICD10: I10] Catie Maya MD, [facility] CPT-4: 80176 02/24/2016 ([id number]) 57674 EST. P ATIENT, LEVEL IV Diagnosis: Hypothyroidism, unspecified[ICD10: E03.9] Diagnosis: Essential (primary) hypertension[ICD10: I10] Meghana Maya MD, C CPT-4: 20207 12/16/2015 ([id number]) 54497 EST. P ATIENT, LEVEL III Diagnosis: Essential (primary) hypertension[ICD10: I10] Diagnosis: Hypothyroidism, unspecified[ICD10: E03.9] Meghana Maya MD, C CPT-4: 22679 10/30/2015 ([id number]) 66674 EST. P ATIENT, LEVEL IV Diagnosis: Diarrhea, unspecified[ICD10: R19.7] Diagnosis: Essential (primary) hypertension[ICD10: I10] Meghana Maya MD, C CPT-4: 19291 09/23/2015 ([id number]) 59530 EST. P ATIENT, LEVEL III Diagnosis: Essential (primary) hypertension[ICD10: I10] Diagnosis: Diarrhea, unspecified[ICD10: R19.7] Meghana Maya MD, [facility] CPT- 4: 31760 09/10/2015 ([id number]) 46127 EST. P ATIENT, LEVEL III Diagnosis: Acute maxillary sinusitis, unspecified[ICD10: J01.00] Diagnosis: Myositis, unspecified[ICD10: M60.9] Meghana Maya MD, [facility] CPT- 4: 97421 08/12/2015 ([id number]) 78562 EST. P ATIENT, LEVEL IV Diagnosis: Essential (primary) hypertension[ICD10: I10] Diagnosis: Pain in left leg[ICD10: M79.605] Diagnosis: Other myositis, multiple sites[ICD10: M60.89] Diagnosis: Hypothyroidism, unspecified[ICD10: E03.9] Meghana Maya MD, [facility] CPT-4: 77065 08/04/2015 66244 EST. PATIENT, LEVEL III Diagnosis: Dyspnea, unspecified[ICD10: R06.00] Diagnosis: Essential (primary) hypertension[ICD10: I10] Meghana Maya MD, [facility] CPT-4: 76387 05/16/2015 ([id number]) 98668 EST. P ATIENT, LEVEL II Diagnosis: Dyspnea, unspecified[ICD10: R06.00] Meghana Maya MD, [facility] CPT- 4: 77526 05/12/2015 ([id number]) [facility] L[facility] Diagnosis: Essential (primary) hypertension[ICD10: I10] Diagnosis: Impaired fasting glucose[ICD10: R73.01] Diagnosis: Mixed hyperlipidemia[ICD10: E78.2] Diagnosis: Hypothyroidism, unspecified[ICD10: E03.9] Diagnosis: Encounter for screening mammogram for malignant neoplasm of breast[ICD10: Z12.31] Catei Maya MD, [facility] CPT-4: 75114 04/21/2015 Plan of Care Planned Activity Notes C odes Status Date Appointment: Nurse Visit 01/22/2019 Patient Education: Patient Medication Summary Completed 01/22/2019 Appointment: Britney Bower WPtel: [phone] [facility] (30 min) [facility] 10/26/2018 [phone] [facility] 10/17/2018 Visit Plan: Hypertension - [...] to monitor - pt has seen a pipe fitter street service in the 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 Hospital follow up - This was a follow up appointment from the patient's hospitalization during which time Dr. Maya formulated the assessment and plan for the follow up on this patient's medical condition. 10/12/2018 Appointment: Britney Bower WPtel: [facility] (30 min) Complex 10/12/2018 Patient Education: Patient Medication Summary Completed 10/12/2018 Visit Plan: Hypokalemia - will send RX for potassium and monitor labs Interstitial lung disease - pt is to follow up with specialist and notify clinic with any changes in current treatment plan 09/13/2018 Appointment: Brit[facility] Bower [facility] ([facility] min) Complex 09/13/2018 Patient Education: [...] plan 05/04/2018 App[facility]ment[phone] (15 min) Moderate 05/04/2018 Patient Education: Patient Medication Summary Completed 05/04/2018 Patient Education: Cholesterol Management Completed 05/04/2018 Appointment: Lab Draw 02/23/2018 Visit Plan: Hypertension - jodie oliveira jessica - continue with current medications, continue [...] treatment plan 01/10/2018 App[facility]ment: [phone] ([facility] min) Complex 01/10/2018 Patient Education: [...] of control. 12/06/2017 Appointment: Britney Bower WPtel: [facility] (15 min) Moderate 12/06/2017 Patient Education: Patient Medication Summary Completed 12/06/2017 Visit Plan: URI - Pt advised to inc rease fluids, vitamin C. Discussed natural and expected course of this diagnosis and need to alert me if symptoms do not follow expected course, or if any worse. RX sent to patient's pharmacy. 06/22/2017 Appointment: Britney Bower WPtel: [phone] [facility] (15 min) Moderate 06/22/2017 Patient Education: [...] spray. 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 Maya - will increase clonidine to BID - pt is to consider referral to dermatology - notify clinic if symptoms do not improve, if they worsen, or with any other questions or concerns. 01/24/2017 Appointment: Britney Bower WPtel: [phone] [facility] (30 min) Complex 01/24/2017 Patient Education: [...] improvement. 10/13/2016 Appointment: Britney Bower WPtel: [phone] [facility] (30 min) Complex 10/13/2016 Patient Education: [...] of steroids-check Hgb A1C Peripheral neuropathy-improved with [id number] Dr Duran for tarsel tunnel syndrome 08/30/2016 Appointment: Catie Shoemaker WPtel: [phone] [phone] [place] (15 min) Moderate 08/30/2016 Patient Education: Patient Medication Summary Completed 08/30/2016 Patient Education: Obesity Completed 08/30/2016 Care Plan: %Hba1C GINNYIN C : 15821-6 Ordered 08/30/2016 Care Plan: Comp Metabolic Ordered [...] contagious. 07/02/2016 Appointment: [phone] (30 min) Complex 07/02/2016 Patient Education: [...] previous levels of control. 06/24/2016 Appointment: [phone] (30 min) Complex 06/24/2016 Patient Education: Patient Medication Summary Completed 06/24/2016 Patient Education: Obesity Completed 06/24/2016 Patient Education: Hypertension Completed 06/24/2016 Patient Education: Patient Medication Summary Completed 05/14/2016 Care Plan: SCREENINGMAMMOGRAPHYDIGITAL INC : 54634-9 Pending 05/14/2016 Visit Plan: Hypertension - well [...] painful. 05/04/2016 Appointment: Meghana Maya WPtel: [phone] [facility] (15 min) Moderate 05/04/2016 Patient Education: Patient [...] medication. 04/06/2016 [phone] ([facility]) Moderate 04/06/2016 Patient Education: Patient Medication Summary Completed 04/06/2016 Patient Education: Obesity Completed 04/06/2016 Care Plan: Referral Order SNOMED-CT : [id number] Pending 04/06/2016 Visit Plan: Edema-improved with low [...] concerns. 03/18/2016 Appointment: Catie Shoemaker WPtel: [phone] (15 min) Moderate 03/18/2016 Patient Education: [...] xray left foot-recommend she follow up with school bus technician at regarding left foot pain/numbness/weakness. Patient has noticed worsening symptoms since decreasing prednisone. 03/11/2016 Appointment: Catie Shoemaker WPtel: [address] [place], [place] [id number] [place] [address] (15 min) Moderate 03/11/2016 Patient Education: Patient Medication Summary Completed 03/11/2016 Patient Education: Obesity Completed 03/11/2016 Appointment: Catie Shoemaker WPtel: [id number] (30 min) Complex 03/09/2016 Visit Plan: [...] daily 02/24/2016 Appointment: Catie Shoemaker WPtel: [phone] [facility] (15 min) Moderate 02/24/2016 Patient Education: Patient Medication Summary Completed 02/24/2016 Patient Education: Obesity Completed 02/24/2016 Patient Education: Hypertension Completed 02/24/2016 Appointment: Meghana Maya WPtel: [phone] [facility] (15 min) Moderate 02/23/2016 Visit Plan: [...] of control. 12/16/2015 Appointment: Meghana Maya WPtel: [facility] (15 min) Moderate 12/16/2015 Patient Education: [...] 10/30/2015 Visit Plan: Hypertension - well con lucioed - continue with current medications, continue with [...] Complex 10/23/2015 [facility]ment[phone] (15 min) Moderate 10/23/2015 Visit Plan: [...] at home. 09/10/2015 Appointment: [phone] (15 min) Moderate 09/10/2015 Patient Education: [...] min) Complex 07/24/2015 Appointment: Meghana Maya [facility]Ptel[facility] (15 min) Moderate 07/24/2015 Appointment: Lab [...] Completed 04/21/2015 Care Plan: SCREENINGMAMMOGRAPHYDIGITAL LOINC : 58608-3 Ordered 04/21/2015 Appointment: Meghana Maya WPtel: [address] [place], [place] [address] [place] (S) New Patient 04/01/2015 Referral: Sharon Duran Referral Appointment Requested Instructions Comment Potassium 40meq arun ght, then 40meq in the morning and 20meq in the evening then recheck potassium first thing tuesday so we can adjust it more if needed. Hypokalemia - will send RX for potassium and monitor labs Interstitial lung disease - pt is to follow up with specialist and notify clinic with any changes in current treatment plan kenalog today. URI - Pt advised to increase fluids, vitamin C. Discussed natural and expected course of this diagnosis and need to alert me if symptoms do not follow expected course, or if any worse. RX sent to patient's pharmacy. PATIENT IS TO CHECK BLOOD PRESSURE AND HEART RATE TWO TIMES DAILY AND BRING IN A RECORD OF THE READINGS INTO THE OFFICE IN TWO WEEKS. APPOINTMENT WITH RHEUMATOLGIST AT [facility] LEFT FOOT . Hypertension - well [...] xray left foot-recommend she follow up with school bus technician at regarding left foot pain/numbness/weakness. Patient has noticed worsening symptoms since decreasing prednisone. INCREASE METOPROLOL TO 50MG DAILY . Edema-improved [...] is to call for acute concerns. . Hypertension - The patient has been [...] to monitor - pt has seen a pipe fitter street service in the 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 Hospital follow up - This was a follow up appointment from the patient's hospitalization during which time Dr. Maya formulated the assessment and plan for the follow up on this patient's medical condition. . URI - Pt advised t o [...] show improvement. . URI - Pt advised t o [...] spray in the nasal steroid allergy spray. Plan: (G0202) SCREEN INGMAMMOGRAPHYDIGITAL . Hypertension - [...] medications. Elevated blood sugar-check Hgb A1C . Shortness of breat h, fatigue - [...] tab daily. Add beta anuj-metoprolol 25mg daily HgbA1C today- daily prednisone for the past [...] of steroids-check Hgb A1C Peripheral neuropathy-improved with [id number] Dr Duran for tarsel tunnel syndrome . Hypertension - unc ontrolled - the patient's medications have not been changed due to acute illness causing the blood pressure to be elevated. Pt to continue with current antihypertensives and will monitor her blood pressures at home. Diarrhea - finish flagyl - start probiotic tid. . Hypertension - wel l controlled - [...] the current treatment plan . Hypertension - wel l controlled - [...] changes in the current treatment plan . Left shoulder/thor acic back pain - [...] SPECIALIZES IN FOOT AND ANKLE DISEASE AT [address] INCREASE THE METOPROLOL TO 1.5 PILLS [...] pressure readings at home. . Hypertension - unc ontrolled - the [...] months based on previous levels of control. probiotic - [facility], probiotic pearls, etc - take three times [...] will complete paperwork for pt to come rate supervisor - pt is to continue with her specialist at [facility] - Discussed with Dr. Maya - will increase clonidine to BID - pt is to consider referral to dermatology - notify clinic if symptoms do not improve, if they worsen, or with any other questions or concerns. . Hypothyroidism - p t with chronic [...]
--- OUTSIDE RECORDS SUMMARY | 2019-08-14 06:17 | XMS REPORT | CCD ---
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/[address]: [id number] Never smoker 04/21/2015 Alcohol history Unknown occasionally drinks alcohol 04/21/2015 Allergies, Adverse Reactions, Alerts Substance Reaction Codes Entered Date Inactivated Date Status [id number] REDU CTASE INHIBITORS myalgias Unknown 016 No [...] Date Stop Date Sta tus Fill Instructions metoprolol succinate ER 50 mg tablet,extended release 24 hr RxNorm: 525114 1 Tablet(s) PO daily 01/22/2019 01/16/2020 Active metoprolol succinate ER 100 mg tablet,extended release 24 hr RxNorm: 265154 1 Tablet(s) PO daily 01/22/2019 01/21/2019 Inactive metoprolol succinate ER 100 mg tablet,extended release 24 hr RxNorm: 970662 1 Tablet(s) PO daily 01/22/2019 01/22/2019 Inactive oxybutynin chloride 5 mg tablet RxNorm: 717977 1/2 Tablet(s) PO hari y 01/04/2019 02/02/2019 Ac tive oxybutynin chloride 5 mg tablet RxNorm: 807202 1/2 Tablet(s) PO hari y 01/04/2019 01/03/2019 In active losartan 25 mg tablet RxNorm: 074373 TAKE ONE TABLET BY MOUTH DAILY 12/04/2018 06/01/2019 Ac tive Lipitor 20 mg tablet RxNorm: 566364 TAKE ONE TABLET BY MOUTH DAILY 12/04/2018 06/01/2019 Ac tive venlafaxine ER 150 m g capsule,extended release 24 hr RxNorm: 984584 TAKE ONE CAPSULE BY MOUTH DAILY 12/04/2018 06/01/2019 Active nystatin 100,000 uni t/mL oral suspension RxNorm: 962205 4 Unit(s) PO QID 10/17/2018 10/23/2018 In active nystatin 100,000 uni t/mL oral suspension RxNorm: 855479 4 Unit(s) PO QID 10/17/2018 10/16/2018 In active metoprolol succinate ER 50 mg tablet,extended release 24 hr RxNorm: 115377 1 Tablet(s) PO daily 10/17/2018 01/19/2019 Inactive potassium chloride E R 10 mEq tablet,extended release RxNorm: 967491 Tablet(s) TAKE ONE TABLET BY MOUTH DAILY 09/15/2018 03/13/2019 Active candesartan 4 mg tablet RxNorm: 105376 1 Tablet(s) PO daily 09/15/2018 10/14/2018 Inactive clonidine HCl 0.1 mg tablet RxNorm: 374502 TAKE ONE TABLET BY MO UT TWICE A DAY 09/14/2018 02/10/2019 Ac tive losartan 25 mg tablet RxNorm: 395226 TAKE ONE TABLET BY MOUTH DAILY 09/14/2018 11/12/2018 In active clonidine HCl 0.1 mg tablet RxNorm: 047127 Tablet(s) TAKE ONE TA BLET BY MOUTH AT BEDTIME 09/13/2018 No Stop Date Active venlafaxine ER 150 m g capsule,extended release 24 hr RxNorm: 810096 TAKE ONE CAPSULE BY MOUTH DAILY 05/15/2018 11/10/2018 Inactive Lipitor 20 mg tablet RxNorm: 833860 TAKE ONE TABLET BY MOUTH DAILY 05/15/2018 11/10/2018 In active losartan 25 mg tablet RxNorm: 025097 TAKE ONE TABLET BY MOUTH DAILY 04/17/2018 07/14/2018 In active losartan 25 mg tablet RxNorm: 242219 TAKE ONE TABLET BY MOUTH DAILY 04/17/2018 04/16/2018 In active Lipitor 20 mg tablet RxNorm: 511535 1 Tablet(s) PO daily 01/12/2018 01/11/2018 Inactive Lipitor 20 mg tablet RxNorm: 872323 1 Tablet(s) PO daily 01/12/2018 05/11/2018 Inactive clonidine HCl 0.1 mg tablet RxNorm: 026251 TAKE ONE TABLET BY MO UT TWICE A DAY 01/04/2018 07/02/2018 In active potassium chloride E R 10 mEq tablet,extended release RxNorm: 105120 TAKE ONE TABLET BY MOUTH DAILY 01/04/2018 09/12/2018 Inactive losartan 25 mg tablet RxNorm: 073897 TAKE ONE TABLET BY MOUTH DAILY 01/03/2018 04/02/2018 In active levothyroxine 50 mcg tablet RxNorm: 717416 1 Tablet(s) PO daily 12/08/2017 09/12/2018 Inactive losartan 25 mg tablet RxNorm: 124647 1 Tablet(s) PO daily 12/06/2017 01/02/2018 Inactive venlafaxine ER 150 m g capsule,extended release 24 hr RxNorm: 667787 TAKE ONE CAPSULE BY MOUTH DAILY 12/06/2017 05/04/2018 Inactive metoprolol succinate ER 50 mg tablet,extended release 24 hr RxNorm: 124074 TAKE ONE TABLET BY MOUTH DAILY 08/29/2017 01/25/2018 Inactive metoprolol succinate ER 50 mg tablet,extended release 24 hr RxNorm: 590711 TAKE ONE TABLET BY MOUTH DAILY 08/29/2017 08/28/2017 Inactive metoprolol succinate ER 50 mg tablet,extended release 24 hr RxNorm: 255607 TAKE ONE TABLET BY MOUTH DAILY 08/29/2017 08/28/2017 Inactive Tamiflu 75 mg capsule RxNorm: 600250 1 Capsule(s) PO BID 06/22/2017 06/26/2017 Inactive Kenalog 40 mg/mL jenna pension for injection RxNorm: 9496241 1.5 Milliliter(s) In j 06/22/2017 06/22/2017 In active clonidine HCl 0.1 mg tablet RxNorm: 682235 TAKE ONE TABLET BY [facility] TWICE A DAY 06/06/2017 12/02/2017 In active potassium chloride E R 10 mEq tablet,extended release RxNorm: 588336 TAKE ONE TABLET BY MOUTH DAILY 06/06/2017 12/02/2017 Inactive venlafaxine ER 150 m g capsule,extended release 24 hr RxNorm: 168148 TAKE ONE CAPSULE BY MOUTH DAILY 05/23/2017 11/18/2017 Inactive Zithromax 500 mg tablet RxNorm: 717238 1 Tablet(s) PO daily 05/18/2017 05/22/2017 Inactive potassium chloride E R 10 mEq tablet,extended release RxNorm: 542582 TAKE ONE TABLET BY MOUTH DAILY 04/21/2017 05/20/2017 Inactive potassium chloride E R 10 mEq tablet,extended release RxNorm: 290268 TAKE ONE TABLET BY MOUTH DAILY 03/16/2017 04/14/2017 Inactive Zithromax Z-Jacek 250 mg tablet RxNorm: 397560 1 Tablet(s) PO UD 03/02/2017 06/21/2017 Inactive venlafaxine ER 150 m g capsule,extended release 24 hr RxNorm: 525298 Capsule(s) TAKE ONE CAPSULE BY MOUTH DAILY 02/17/2017 02/16/2017 Inactive venlafaxine ER 150 m g capsule,extended release 24 hr RxNorm: 199311 TAKE ONE CAPSULE BY MOUTH DAILY 02/17/2017 05/14/2018 Inactive clonidine HCl 0.1 mg tablet RxNorm: 200733 TAKE ONE TABLET BY MO UT EVERY NIGHT AT BEDTIME 02/14/2017 01/03/2018 Inactive metoprolol succinate ER 50 mg tablet,extended release 24 hr RxNorm: 673109 TAKE ONE TABLET BY MOUTH DAILY 02/14/2017 08/12/2017 Inactive Protonix 40 mg table t,delayed release RxNorm: 397528 TAKE ONE TABLET BY MO UT DAILY WHILE ON PREDNISONE 01/25/2017 09/12/2018 Inactive Zithromax Z-Jacek 250 mg tablet RxNorm: 225955 1 Tablet(s) PO UD 01/24/2017 01/03/2018 Inactive potassium chloride E R 10 mEq tablet,extended release RxNorm: 938331 TAKE ONE TABLET BY MOUTH DAILY 01/17/2017 03/15/2017 Inactive clonidine HCl 0.1 mg tablet RxNorm: 839588 TAKE ONE TABLET BY ME UT EVERY NIGHT AT BEDTIME 01/17/2017 02/13/2017 Inactive potassium chloride E R 10 mEq tablet,extended release RxNorm: 195716 TAKE ONE TABLET BY MOUTH DAILY 12/16/2016 01/14/2017 Inactive venlafaxine ER 150 m g capsule,extended release 24 hr RxNorm: 609902 TAKE ONE CAPSULE BY MOUTH DAILY 11/18/2016 02/15/2017 Inactive clonidine HCl 0.1 mg tablet RxNorm: 397507 TAKE ONE TABLET BY MO UT EVERY NIGHT AT BEDTIME 11/08/2016 01/06/2017 Inactive clonidine HCl 0.1 mg tablet RxNorm: 453511 1 Tablet(s) BID 10/19/2016 01/16/2017 Inactive potassium chloride E R 10 mEq tablet,extended release RxNorm: 962707 TAKE ONE TABLET BY MOUTH DAILY 10/15/2016 11/13/2016 Inactive Zithromax Z-Jacek 250 mg tablet RxNorm: 141361 1 Tablet(s) PO UD 10/13/2016 01/03/2018 Inactive potassium chloride E R 10 mEq tablet,extended release RxNorm: 661719 TAKE ONE TABLET BY MOUTH DAILY 10/12/2016 10/14/2016 Inactive potassium chloride E R 10 mEq tablet,extended release RxNorm: 032763 Tablet(s) BID TAKE ONE TABLET BY MOUTH TWICE DAILY 09/17/2016 10/11/2016 Inactive potassium chloride E R 10 mEq tablet,extended release RxNorm: 178388 TAKE ONE TABLET BY MOUTH DAILY 09/13/2016 09/16/2016 Inactive clonidine HCl 0.1 mg tablet RxNorm: 396491 Tablet(s) TAKE ONE TA BLET BY MOUTH EVERY NIGHT AT BEDTIME 08/12/2016 10/18/2016 Inactive gabapentin 300 mg ca psule RxNorm: 173573 1 Capsule(s) PO QHS 08/10/2016 No Stop Date Active venlafaxine ER 150 m g capsule,extended release 24 hr RxNorm: 521103 TAKE ONE CAPSULE BY MOUTH DAILY 08/09/2016 11/06/2016 Inactive metoprolol succinate ER 50 mg tablet,extended release 24 hr RxNorm: 870237 TAKE ONE TABLET BY MOUTH DAILY 07/29/2016 01/24/2017 Inactive clonidine HCl 0.1 mg tablet RxNorm: 467108 TAKE ONE TABLET BY MO UTH EVERY NIGHT AT BEDTIME 07/21/2016 08/11/2016 Inactive potassium chloride E R 10 mEq tablet,extended release RxNorm: 805959 TAKE ONE TABLET BY MOUTH DAILY 07/14/2016 09/11/2016 Inactive Prescriber not associated w ith this practice or location acyclovir 400 mg tablet RxNorm: 824846 2 Tablet(s) PO QID 07/02/2016 07/11/2016 Inactive cyclobenzaprine 5 mg tablet RxNorm: 429341 1-2 Tablet(s) PO TID as needed 07/02/2016 07/06/2016 In active capsaicin 0.1 % topi reagan cream RxNorm: 384982 1 Application TOP TID as needed 07/02/2016 09/12/2018 In active Protonix 40 mg table t,delayed release RxNorm: 745264 TAKE ONE TABLET BY MO UTH DAILY WHILE ON PREDNISONE 06/29/2016 12/25/2016 Inactive clonidine HCl 0.1 mg tablet RxNorm: 401608 1 Tablet(s) PO QHS 06/25/2016 07/20/2016 Inactive calcium carbonate 50 0 mg calcium (1,250 mg) tablet RxNorm: 394876 TAKE ONE TABLET BY MOUTH DAILY WHILE ON PREDNISONE. MAY STOP TAKING WHEN PREDNISONE IS COMPLETE 06/01/2016 09/12/2018 In active Vitamin D3 1,000 uni t tablet RxNorm: 099956 1 Tablet(s) PO daily . May stop taking once prednisone is complete. 04/26/2016 09/12/2018 Inactive metoprolol succinate ER 50 mg tablet,extended release 24 hr RxNorm: 775471 1.5 Tablet(s) PO daily 04/06/2016 06/23/2016 Inactive prednisone 10 mg tablet RxNorm: 610443 1 Tablet(s) PO daily 04/02/2016 06/21/2017 Inactive metoprolol succinate ER 50 mg tablet,extended release 24 hr RxNorm: 614373 1 Tablet(s) PO daily 03/18/2016 04/05/2016 Inactive amlodipine 10 mg tablet RxNorm: 567332 1/2 Tablet(s) PO daily 02/24/2016 06/21/2016 Inactive metoprolol succinate ER 25 mg tablet,extended release 24 hr RxNorm: 003618 1 Tablet(s) PO daily 02/24/2016 03/16/2016 Inactive calcium carbonate 50 0 mg calcium (1,250 mg) tablet RxNorm: 373549 TAKE ONE TABLET BY MOUTH DAILY WHILE ON PREDNISONE. MAY STOP TAKING WHEN PREDNISONE IS COMPLETE 02/16/2016 05/15/2016 In active Protonix 40 mg table t,delayed release RxNorm: 554348 TAKE ONE TABLET BY MO UTH DAILY WHILE ON PREDNISONE 02/10/2016 05/09/2016 Inactive venlafaxine ER 150 m g capsule,extended release 24 hr RxNorm: 929534 Capsule(s) TAKE ONE CAPSULE BY MOUTH DAILY 12/10/2015 04/07/2016 Inactive calcium carbonate 50 0 mg calcium (1,250 mg) tablet RxNorm: 273844 1 Tablet(s) PO daily 12/01/2015 01/29/2016 Inactive Vitamin D3 1,000 uni t tablet RxNorm: 693349 1 Tablet(s) PO daily 12/01/2015 03/29/2016 Inactive levothyroxine 50 mcg tablet RxNorm: 945637 1 Tablet(s) PO daily 12/01/2015 11/24/2016 Inactive amlodipine 10 mg tablet RxNorm: 989593 1 Tablet(s) PO daily 11/19/2015 11/18/2015 Inactive amlodipine 10 mg tablet RxNorm: 904732 1 Tablet(s) PO daily 11/19/2015 02/23/2016 Inactive amlodipine 5 mg tablet RxNorm: 091741 1 Tablet(s) PO daily 11/17/2015 11/18/2015 Inactive venlafaxine ER 150 m g capsule,extended release 24 hr RxNorm: 681410 TAKE ONE CAPSULE BY MOUTH DAILY 11/13/2015 12/09/2015 Inactive Protonix 40 mg table t,delayed release RxNorm: 586169 1 Tablet(s) PO daily while on prednisone 2015 02/09/2016 Inactive prednisone 10 mg tablet RxNorm: 327483 2 Tablet(s) PO UD 10/30/2015 04/01/2016 Inactive 60mg for 2 days, then 50mg for 2 days, then 40mg for 2 days, then 30mg for 2 days, then 20mg for 2 days, then 10mg for 2 days, then 5mg for 2 days potassium chloride E R 10 mEq tablet,extended release RxNorm: 771270 TAKE ONE TABLET BY MOUTH DAILY 09/22/2015 12/19/2015 Inactive venlafaxine ER 150 m g capsule,extended release 24 hr RxNorm: 887942 TAKE ONE CAPSULE BY MOUTH DAILY 09/08/2015 11/06/2015 Inactive cefdinir 300 mg capsule RxNorm: 578352 1 Capsule(s) PO BID 08/20/2015 08/22/2015 Inactive cefdinir 300 mg capsule RxNorm: 459370 1 Capsule(s) PO BID 08/12/2015 08/18/2015 Inactive Kenalog 40 mg/mL jenna pension for injection RxNorm: 0992302 1 Milliliter(s) Inj 08/04/2015 08/04/2015 In active triamterene 37.5 mg- hydrochlorothiazide 25 mg tablet RxNorm: 912287 1 Tablet(s) PO BID 06/17/2015 08/03/2015 Inactive potassium chloride E R 10 mEq tablet,extended release RxNorm: 946109 1 Tablet(s) PO daily 05/30/2015 08/03/2015 Inactive Levaquin 250 mg tablet RxNorm: 567056 Tablet(s) PO UD 500 mg day one, then 250 mg day 2-7 05/27/2015 08/03/2015 Inactive prednisone 10 mg tablet RxNorm: 299260 Tablet(s) PO UD 05/27/2015 10/29/2015 Inactive 60mg for 2 days, then 50mg for 2 days, then 40mg for 2 days, then 30mg for 2 days, then 20mg for 2 days, then 10mg for 2 days, then 5mg for 2 days albuterol sulfate 1. 25 mg/3 mL solution for nebulization RxNorm: 324411 3 Milliliter(s) INH Q4-6H as needed dyspnea 05/23/2015 09/12/2018 Inactive Zithromax 500 mg tablet RxNorm: 129771 1 Tablet(s) PO daily 05/16/2015 05/15/2015 Inactive Zithromax 500 mg tablet RxNorm: 071322 1 Tablet(s) PO daily 05/16/2015 05/20/2015 Inactive prednisone 20 mg tablet RxNorm: 836501 3 Tablet(s) PO daily 05/12/2015 05/16/2015 Inactive venlafaxine ER 150 m g capsule,extended release 24 hr RxNorm: 108136 TAKE ONE CAPSULE BY MOUTH DAILY 05/12/2015 08/09/2015 Inactive Keflex 500 mg capsule RxNorm: 639011 1 Capsule(s) PO TID 05/12/2015 05/18/2015 Inactive simvastatin 20 mg ta blet RxNorm: 784942 1 Tablet(s) PO daily 04/10/2015 04/09/2015 Inactive simvastatin 20 mg ta blet RxNorm: 979413 1 Tablet(s) PO daily 04/10/2015 08/11/2015 Inactive venlafaxine ER 150 m g capsule,extended release 24 hr RxNorm: 950241 TAKE ONE CAPSULE BY MOUTH DAILY 04/08/2015 05/07/2015 Inactive amlodipine 5 mg tablet RxNorm: 351234 1 Tablet(s) PO daily 03/07/2015 03/06/2015 Inactive amlodipine 5 mg tablet RxNorm: 094131 1 Tablet(s) PO daily 03/07/2015 07/04/2015 Inactive venlafaxine ER 150 m g capsule,extended release 24 hr RxNorm: 176095 1 Capsule(s) PO daily 01/29/2015 03/29/2015 Inactive Co Q-10 oral RxNorm: 74987 oral No Start Date Active gabapentin 100 mg ca psule RxNorm: 067298 1 Capsule(s) PO QAM No Start Date Active albuterol sulfate 1. 25 mg/3 mL solution for nebulization RxNorm: 161500 3 Milliliter(s) INH Q4-6H as needed dyspnea No Start Date 05/22/2015 Inactive levothyroxine 50 mcg tablet RxNorm: 924269 1 Tablet(s) PO daily No Start Date 11/30/2015 Inactive metoprolol succinate ER 50 mg tablet,extended release 24 hr RxNorm: 755922 1 Tablet(s) PO daily No Start Date 09/12/2018 Inactive gabapentin 300 mg ca psule RxNorm: 677519 1 Capsule(s) PO QHS No Start Date 08/09/2016 Inactive vitamin B complex oral RxNorm: 99275 oral No Start Date 09/12/2018 Inactive Vitamin D3 1,000 uni t tablet RxNorm: 914033 1 Tablet(s) PO daily No Start Date 11/30/2015 Inactive Protonix 40 mg table t,delayed release RxNorm: 753409 1 Tablet(s) PO daily while on prednisone No Start Date 10/30/2015 Inactive calcium carbonate oral RxNorm: oral No Start Date 11/30/2015 Inactive potassium chloride E R 10 mEq tablet,extended release RxNorm: 349553 1 Tablet(s) PO daily No Start Date 05/29/2015 Inactive Levaquin 250 mg tablet RxNorm: 981349 Tablet(s) PO UD 500 mg day one, then 250 mg day 2-7 No Start Date 05/26/2015 Inactive triamterene 37.5 mg- hydrochlorothiazide 25 mg tablet RxNorm: 345677 1 Tablet(s) PO BID No Start Date 06/16/2015 Inactive prednisone 10 mg tablet RxNorm: 768704 Tablet(s) PO UD No Start Date 05/26/2015 Inactive 60mg for 2 days, then 50mg for 2 days, then 40mg for 2 days, then 30mg for 2 days, then 20mg for 2 days, then 10mg for 2 days, then 5mg for 2 days venlafaxine ER 150 m g capsule,extended release 24 hr RxNorm: 835647 1 Capsule(s) PO daily No Start Date 01/28/2015 Inactive Medication Administered Medication Codes Instruc tions Start Date Status Kenalog 40 mg/mL suspension for injection RxNorm: 6299561 1.5Milliliter 06/22/2017 No longer Active Kenalog 40 mg/mL suspension for injection RxNorm: 1715171 1Milliliter 08/04/2015 N o longer Active Immunizations [...] Item Item Code Result Date Comp Metabolic Qdv054 NA 142 mEq/L 10/12/2018 Comp Metabolic Khb971 K 4.0 mEq/L 10/12/2018 Comp Metabolic Ybf009 CL 105 mEq/L 10/12/2018 Comp Metabolic Idx470 CO2 21.0 mEq/L 10/12/2018 Comp Metabolic Dgy492 AN ION GAP 20 10/12/2018 Comp Metabolic Nyx802 GL UCOSE 105 mg/dL 10/12/2018 Comp Metabolic Gwi908 Cr eat 1.8 mg/dL 10/12/2018 Comp Metabolic Xwp963 eG FR 30 ml/min/1.73m2 10/12 Comp Metabolic Cew227 BUN 19 mg/dL 10/12/2018 Comp Metabolic Rki338 B/ C Ratio 10.5 Ratio 10/12/2018 Comp Metabolic Wdt631 CA LCIUM 9.0 mg/dL 10/12/2018 Comp Metabolic Gjv913 AL K PHOS 74 U/L 10/12/2018 Comp Metabolic Oft826 T(SGOT) 21 U/L 10/12/2018 Comp Metabolic Smv329 AL T(SGPT) 22 U/L 10/12/2018 Comp Metabolic Vsi042 BI LI T 0.4 mg/dL 10/12/2018 Comp Metabolic Hxm662 AL BUMIN 3.9 g/dL 10/12/2018 Comp Metabolic Upn231 TP RO 6.1 g/dL 10/12/2018 Comp Metabolic Nid430 GL OB 2.2 g/dL 10/12/2018 Comp Metabolic Iku892 A/ G Ratio 1.7 Ratio 10/12/2018 Comp Metabolic Gko566 Os mo 286 mOsmo 10/12/2018 Cbc With [...] 28.0 pg 10/12/2018 Cbc With Differential Ord2 [place]% 16.6 % 10/12/2018 Cbc With Differential Ord2 [...] 1.77 K/ul 10/12/2018 Cbc With Differential Ord2 [place] ABS# 2.4 K/ul 10/12/2018 Cbc With Differential Ord2 Eos ABS# 0.0 K/ul 10/12/2018 Cbc With Differential Ord2 Baso ABS# 0.0 K/ul 10/12/2018 Electrolytes Ord62 NA 140 mEq/L 09/15/2018 Electrolytes Ord62 K 4.2 mEq/L 09/15/2018 Electrolytes Ord62 CL 111 mEq/L 09/15/2018 Electrolytes Ord62 CO2 20.0 mEq/L 09/15/2018 Electrolytes Ord62 ANION GAP 13 09/15/2018 Comp Metabolic Iwk707 NA 140 mEq/L 01/10/2018 Comp Metabolic Vdm025 K 3.8 mEq/L 01/10/2018 Comp Metabolic Scd449 CL 106 mEq/L 01/10/2018 Comp Metabolic Mui958 CO2 25.0 mEq/L 01/10/2018 Comp Metabolic Nns319 AN ION GAP 13 01/10/2018 Comp Metabolic Zol792 GL UCOSE 110 mg/dL 01/10/2018 Comp Metabolic Dhg326 Cr eat 1.5 mg/dL 01/10/2018 Comp Metabolic Mag291 eG FR 37 ml/min/1.73m2 01/10 Comp Metabolic Vjx007 BUN 23 mg/dL 01/10/2018 Comp Metabolic Nwz325 B/ C Ratio 15.3 Ratio 01/10/2018 Comp Metabolic Lsh117 CA LCIUM 9.2 mg/dL 01/10/2018 Comp Metabolic Wek659 AL K PHOS 87 U/L 01/10/2018 Comp Metabolic Wbj895 T(SGOT) 15 U/L 01/10/2018 Comp Metabolic Aya153 AL T(SGPT) 9 U/L 01/10/2018 Comp Metabolic Ojt795 BI LI T 0.4 mg/dL 01/10/2018 Comp Metabolic Duk172 AL BUMIN 3.8 g/dL 01/10/2018 Comp Metabolic Zgq794 TP RO 6.2 g/dL 01/10/2018 Comp Metabolic Chi898 GL OB 2.4 g/dL 01/10/2018 Comp Metabolic Var478 A/ G Ratio 1.6 Ratio 01/10/2018 Comp Metabolic Wib769 Os mo 284 mOsmo 01/10/2018 C-Reactive Protein [...] 27.6 pg 01/10/2018 Cbc With Differential Ord2 [place]% 15.2 % 01/10/2018 Cbc With Differential Ord2 [...] 1.47 K/ul 01/10/2018 Cbc With Differential Ord2 [place] ABS# 1.0 K/ul 01/10/2018 Cbc With Differential Ord2 Eos ABS# 0.1 K/ul 01/10/2018 Cbc With Differential Ord2 Baso ABS# 0.0 K/ul 01/10/2018 Sed Rate Ord21 ESR 12 mm/hr 01/10/2018 Free T4 Mxz751 FREE T4 0.57 ng/dL 12/06/2017 Tsh Ord6 TSH (3rd IS) 7.40 uIU/mL 12/06/2017 C A/B FLU 9802017 Influe nza A Scr Negative 06/22/2017 C A/B FLU [id number] Influe nza B Scr Negative 06/22/2017 C A/B FLU [id number] Influe nza Intrp B AG:PRID:PT:NOSE:NOM:IF See Footnote 06/22/2017 Comp Metabolic Aoo481 NA 140 mEq/L 08/30/2016 Comp Metabolic Llm659 K 3.3 mEq/L 08/30/2016 Comp Metabolic Qbo822 CL 104 mEq/L 08/30/2016 Comp Metabolic Zka212 CO2 26.0 mEq/L 08/30/2016 Comp Metabolic Jgp660 AN ION GAP 13 08/30/2016 Comp Metabolic Gxm811 GL UCOSE 143 mg/dL 08/30/2016 Comp Metabolic Cda942 Cr eat 1.3 mg/dL 08/30/2016 Comp Metabolic Ads477 eG FR 43 ml/min/1.73m2 08/30 Comp Metabolic Fqf570 BUN 19 mg/dL 08/30/2016 Comp Metabolic Ftn564 B/ C Ratio 14.3 Ratio 08/30/2016 Comp Metabolic Cic770 CA LCIUM 10.0 mg/dL 08/30/2016 Comp Metabolic Aao425 AL K PHOS 67 U/L 08/30/2016 Comp Metabolic Jhb299 T(SGOT) 28 U/L 08/30/2016 Comp Metabolic Cxv002 AL T(SGPT) 43 U/L 08/30/2016 Comp Metabolic Lty484 BI LI T 0.4 mg/dL 08/30/2016 Comp Metabolic Jkd023 AL BUMIN 4.0 g/dL 08/30/2016 Comp Metabolic Bqd009 TP RO 6.2 g/dL 08/30/2016 Comp Metabolic Krd417 GL OB 2.2 g/dL 08/30/2016 Comp Metabolic Xqm428 A/ G Ratio 1.8 Ratio 08/30/2016 Comp Metabolic Yle004 Os mo 284 mOsmo 08/30/2016 %Hba1C Lzp269 % HbA1c 56107-5 6.1 % 08/30/2016 %Hba1C Gmb831 Gluc Ave 128 mg/dL 08/30/2016 Free T4 Keo807 FREE T4 0.75 ng/dL 06/25/2016 Tsh Ord6 [...] Ord90 Mag 2.1 mg/dL 12/16/2015 Free T4 Een235 FREE T4 0.92 ng/dL 12/16/2015 Tsh Ord6 [...] 28.5 pg 08/04/2015 Cbc With Differential Ord2 [place]% 6.1 % 08/04/2015 Cbc With Differential Ord2 [...] 0.73 K/ul 08/04/2015 Cbc With Differential Ord2 [place] ABS# 0.5 K/ul 08/04/2015 Cbc With Differential Ord2 Eos ABS# 0.1 K/ul 08/04/2015 Cbc With Differential Ord2 Baso ABS# 0.0 K/ul 08/04/2015 Cbc With Differential Ord2 New Analyzer Notice Please note new ref ranges s tarting 07-09-2015 due to implemntation of new five part differential hematolgy analyzer. 08/04/2015 C-Reactive Protein Qnt Crqnt CRP 0.8 mg/dl 08/04/2015 Comp Metabolic Bpb224 NA 139 mEq/L 08/04/2015 Comp Metabolic Qnk805 K 3.4 mEq/L 08/04/2015 Comp Metabolic Hwb600 CL 109 mEq/L 08/04/2015 Comp Metabolic Djd476 CO2 22.0 mEq/L 08/04/2015 Comp Metabolic Nfz188 AN ION GAP 11 08/04/2015 Comp Metabolic Pik012 GL UCOSE 177 mg/dL 08/04/2015 Comp Metabolic Aeq566 Cr eat 1.0 mg/dL 08/04/2015 Comp Metabolic Blg211 eG FR 64 ml/min/1.73m2 08/04 Comp Metabolic Rwh461 BUN 35 mg/dL 08/04/2015 Comp Metabolic Kfa735 B/ C Ratio 36.8 Ratio 08/04/2015 Comp Metabolic Fpc031 CA LCIUM 8.5 mg/dL 08/04/2015 Comp Metabolic Byl126 AL K PHOS 57 U/L 08/04/2015 Comp Metabolic Qjk835 T(SGOT) 21 U/L 08/04/2015 Comp Metabolic Ock472 AL T(SGPT) 63 U/L 08/04/2015 Comp Metabolic Vml966 BI LI T 0.3 mg/dL 08/04/2015 Comp Metabolic Dmc955 AL BUMIN 3.1 g/dL 08/04/2015 Comp Metabolic Acv658 TP RO 5.1 g/dL 08/04/2015 Comp Metabolic Jbi652 GL OB 2.0 g/dL 08/04/2015 Comp Metabolic Dnn237 A/ G Ratio 1.6 Ratio 08/04/2015 Comp Metabolic Dfv292 Os mo 290 mOsmo 08/04/2015 Cpk Ord61 CPK 52 U/L 08/04/2015 Random Urine Protein/Creatinine Ratio Any7829 U Prot 8.5 mg/dl 05/27/2015 Random Urine Protein/Creatinine Ratio Ufz5198 U CREAT 201.0 mg/dL 05/27/2015 Random Urine Protein/Creatinine Ratio Kot6715 R MTP/Creat Ratio 0.04 05/27/2015 Urinalysis Ord28 [...] hours from collection if refrigerated) 05/27/2015 Renal Lox774 NA 136 mEq/L 05/26/2015 Renal Fpu354 K 3.3 mEq/L 05/26/2015 Renal Rde946 CL 99 mEq/L 05/26/2015 Renal Ldm904 CO2 25.0 mEq/L 05/26/2015 Renal Pjc717 ANION GAP 15 05/26/2015 Renal Sfk237 Osmo 274 mOsmo 05/26/2015 Renal Nlo165 GLUCOSE 106 mg/dL 05/26/2015 Renal Ocu442 BUN 17 mg/dL 05/26/2015 Renal Mab078 Creat 1.4 mg/dL 05/26/2015 Renal Qao889 eGFR 40 ml/min/1.73m2 05/26/2015 Renal Fzs656 B/C Ratio 12.0 Ratio 05/26/2015 Renal Nuf268 CALCIUM 9.3 mg/dL 05/26/2015 Renal Esy304 PHOS 3.4 mg/dL 05/26/2015 Renal Ljo173 ALBUMIN 3.4 g/dL 05/26/2015 Cbc With Differential [...] Ord2 RDW 14.3 % 04/21/2015 Free T4 Yat249 FREE T4 0.91 ng/dL 04/21/2015 %Hba1C Kpv490 % HbA1c 20878-7 5.8 % 04/21/2015 %Hba1C Cje911 Gluc Ave 120 mg/dL 04/21/2015 Comp Metabolic Wcn861 NA 137 mEq/L 04/21/2015 Comp Metabolic Bth339 K 3.6 mEq/L 04/21/2015 Comp Metabolic Ibv648 CL 98 mEq/L 04/21/2015 Comp Metabolic Yrn389 CO2 25.0 mEq/L 04/21/2015 Comp Metabolic Wax238 AN ION GAP 18 04/21/2015 Comp Metabolic Cul548 GL UCOSE 83 mg/dL 04/21/2015 Comp Metabolic Vzd028 Cr eat 1.6 mg/dL 04/21/2015 Comp Metabolic Ypb965 eG FR 36 ml/min/1.73m2 04/21 Comp Metabolic Eyv653 BUN 28 mg/dL 04/21/2015 Comp Metabolic Jnw750 B/ C Ratio 17.9 Ratio 04/21/2015 Comp Metabolic Ruh664 CA LCIUM 9.5 mg/dL 04/21/2015 Comp Metabolic Cms270 AL K PHOS 60 U/L 04/21/2015 Comp Metabolic Upl306 T(SGOT) 22 U/L 04/21/2015 Comp Metabolic Kgj085 AL T(SGPT) 10 U/L 04/21/2015 Comp Metabolic Mfe502 BI LI T 0.4 mg/dL 04/21/2015 Comp Metabolic Wgu137 AL BUMIN 4.0 g/dL 04/21/2015 Comp Metabolic Fqf567 TP RO 6.8 g/dL 04/21/2015 Comp Metabolic Bxw272 GL OB 2.8 g/dL 04/21/2015 Comp Metabolic Jxc518 A/ G Ratio 1.4 Ratio 04/21/2015 Comp Metabolic Lng918 Os mo 278 mOsmo 04/21/2015 Tsh Ord6 [...] Respiratory dyspnea on exertion 08/04/2015 Respiratory dyspnea 0 01/2016 Gastrointestinal No abdominal pain 08/04/2015 Gastrointestinal [...] clear 03/02/2017 None Full Exam - General 1995 Ears/Nose/Throat otoscopic exam Tympanic membrane: air-fluid level [...] Procedure Codes Date THER/PROPH/DIAG INJ SC/IM CPT-4: 44842 06/22/2017 TRIAMCINOLONE ACET I [place] NOS CPT-4: J3301 06/22/2017 THER/PROPH/DIAG INJ SC/IM CPT-4: 70813 08/04/2015 TRIAMCINOLONE ACET I [place] NOS CPT-4: J3301 08/04/2015 Vital Signs Date Vital 01/22/2019 Blood Pressure 1: 220/128 Code: 8480-6 Heart Rate 1: 100 bpm SpO2: 98% 10/12/2018 Blood Pressure 1: 110/74 Code: 8480-6 Heart Rate 1: 105 bpm Height: 5'1" SpO2: 95% Weight: 09/13/2018 Blood Pressure 1: 156/86 Code: 8480-6 BMI: 32.3 Code: 90137-2 Heart Rate 1: 90 bpm Height: 5'1" SpO2: 98% Weight: 171 lbs 05/04/2018 Blood Pressure 1: 158/88 Code: 8480-6 BMI: 33.3 Code: 48082-8 Heart Rate 1: 63 bpm Height: 5'1" SpO2: 98% Weight: 176 lbs 01/10/2018 Blood Pressure 1: 138/88 Code: 8480-6 BMI: 31.9 Code: 63887-8 Heart Rate 1: 78 bpm Height: 5'1" SpO2: 99% Weight: 169 lbs 12/06/2017 Blood Pressure 1: 158/98 Code: 8480-6 BMI: 32.3 Code: 22527-3 Heart Rate 1: 60 bpm Height: 5'1" SpO2: 100% Weight: 171 lbs 06/22/2017 Blood Pressure 1: 168/92 Code: 8480-6 BMI: 32.6 Code: 16215-0 Heart Rate 1: 133 bpm Height: 5'1" SpO2: 97% Temperature: 37.6 (C ) / 99.7 (F) Weight: 172 lbs 8 oz 03/02/2017 Blood Pressure 1: 168/90 Code: 8480-6 BMI: 35.0 Code: 72674-1 Heart Rate 1: 80 bpm Height: 5'1" SpO2: 94% Weight: 185 lbs 01/24/2017 Blood Pressure 1: 130/68 Code: 8480-6 BMI: 35.3 Code: 21071-1 Heart Rate 1: 66 bpm Height: 5'1" SpO2: 98% Weight: 187 lbs 10/13/2016 Blood Pressure 1: 136/74 Code: 8480-6 BMI: 35.1 Code: 64379-2 Heart Rate 1: 71 bpm Height: 5'1" SpO2: 97% Weight: 186 lbs 08/30/2016 Blood Pressure 1: 128/80 Code: 8480-6 BMI: 35.0 Code: 73818-7 Heart Rate 1: 75 bpm Height: 5'1" SpO2: 96% Weight: 185 lbs 8 oz 07/02/2016 Blood Pressure 1: 140/78 Code: 8480-6 Heart Rate 1: 63 bpm Height: 5'1" SpO2: 98% 06/24/2016 Blood Pressure 1: 148/100 Code: 8480-6 BMI: 34.2 Code: 82262-1 Heart Rate 1: 110 bpm Height: 5'1" SpO2: 94% Weight: 181 lbs 05/04/2016 Blood Pressure 1: 150/90 Code: 8480-6 Blood Pressure 1: 134/82 Code: 8480-6 BMI: 34.6 Code: 60044-1 Heart Rate 1: 74 bpm Height: 5'1" SpO2: 98% Weight: 183 lbs 04/06/2016 Blood Pressure 1: 156/92 Code: 8480-6 Blood Pressure 1: 158/88 Code: 8480-6 BMI: 34.8 Code: 39010-5 Heart Rate 1: 69 bpm Height: 5'1" SpO2: 97% Weight: 184 lbs 03/18/2016 Blood Pressure 1: 148/90 Code: 8480-6 BMI: 35.1 Code: 30923-0 Heart Rate 1: 106 bpm Height: 5'1" SpO2: 94% Weight: 186 lbs 03/11/2016 Blood Pressure 1: 140/90 Code: 8480-6 BMI: 35.1 Code: 39946-3 Heart Rate 1: 103 bpm Height: 5'1" SpO2: 96% Weight: 186 lbs 02/24/2016 Blood Pressure 1: 130/80 Code: 8480-6 BMI: 34.4 Code: 20406-2 Heart Rate 1: 110 bpm Height: 5'1" SpO2: 96% Weight: 182 lbs 12/16/2015 Blood Pressure 1: 144/98 Code: 8480-6 BMI: 33.8 Code: 85488-5 Heart Rate 1: 97 bpm Height: 5'1" SpO2: 98% Weight: 179 lbs 10/30/2015 Blood Pressure 1: 138/88 Code: 8480-6 BMI: 33.6 Code: 21480-9 Heart Rate 1: 88 bpm Height: 5'1" SpO2: 98% Weight: 178 lbs 09/23/2015 Blood Pressure 1: 152/94 Code: 8480-6 BMI: 32.7 Code: 43450-6 Heart Rate 1: 83 bpm Height: 5'1" SpO2: 97% Weight: 173 lbs 09/10/2015 Blood Pressure 1: 136/82 Code: 8480-6 BMI: 32.1 Code: 22092-6 Heart Rate 1: 105 bpm Height: 5'1" SpO2: 97% Weight: 170 lbs 08/12/2015 Blood Pressure 1: 132/70 Code: 8480-6 BMI: 31.2 Code: 01719-4 Heart Rate 1: 88 bpm Height: 5'1" SpO2: 95% Temperature: 36.7 (C ) / 98.0 (F) Weight: 165 lbs 08/04/2015 Blood Pressure 1: 136/80 Code: 8480-6 BMI: 31.0 Code: 72964-5 Heart Rate 1: 110 bpm Height: 5'1" SpO2: 98% Weight: 164 lbs 05/16/2015 Blood Pressure 1: 138/88 Code: 8480-6 BMI: 32.9 Code: 74639-9 Heart Rate 1: 87 bpm Height: 5'1" SpO2: 90% Weight: 174 lbs 05/12/2015 BMI: 31.7 Code: 41864-8 Height: 5'1" Weight: 168 lbs 04/21/2015 Blood Pressure 1: 124/82 Code: 8480-6 BMI: 32.1 Code: 66630-1 Heart Rate 1: 87 bpm Height: 5'1" [...] of the thyroid 12/06/2017 None hypothyroid Quality funeral home assistant marley 12/06/2017 None hypothyroid Onset and Resolution [...] of the thyroid 08/30/2016 None hypothyroid Quality funeral home assistant [place]ley 08/30/2016 None hypothyroid Onset and Resolution [...] of the thyroid 05/04/2016 None hypothyroid Quality funeral home assistant marley 05/04/2016 None hypothyroid Onset and Resolution [...] of the thyroid 04/06/2016 None hypothyroid Quality funeral home assistant marley 04/06/2016 None hypothyroid Onset and Resolution [...] Alleviating Factors medication 12/16/2015 None hypothyroid Quality funeral home assistant marley 12/16/2015 None hypothyroid Location at the [...] Encounters Encounter Performer Loca tion Codes Date ([id number]) Miscellaneou s no charge Diagnosis: Essential (primary) hypertension[ICD10: I10] Meghana Maya MD, [facility] CPT-4: 87757 01/22/2019 71948 EST. PATIENT, LEVEL III Diagnosis: Chronic kidney disease, stage 3 (moderate)[ICD10: N18.3] Diagnosis: Essential (primary) hypertension[ICD10: I10] Diagnosis: Encounter for follow-up examination after completed treatment for conditions other than malignant neoplasm[ICD10: Z09] Britney Maya MD, [facility] CPT-4: 87024 10/12/2018 30974 EST. PATIENT, LEVEL III Diagnosis: Hypokalemia[ICD10: E87.6] Diagnosis: Interstitial pulmonary disease, unspecified[ICD10: J84.9] Britney Maya MD, [facility] CPT-4: 09742 09/13/2018 09334 EST. PATIENT, LEVEL IV Diagnosis: Essential (primary) hypertension[ICD10: I10] Diagnosis: Interstitial pulmonary disease, unspecified[ICD10: J84.9] Diagnosis: Chronic kidney disease, stage 3 (moderate)[ICD10: N18.3] Diagnosis: Mixed hyperlipidemia[ICD10: E78.2] Britney Maya MD, [facility] CPT-4: 51150 05/04/2018 01697 EST. PATIENT, LEVEL IV Diagnosis: Essential (primary) hypertension[ICD10: I10] Diagnosis: Interstitial pulmonary disease, unspecified[ICD10: J84.9] Diagnosis: Chronic kidney disease, stage 3 (moderate)[ICD10: N18.3] Diagnosis: Mixed hyperlipidemia[ICD10: E78.2] Britney Maya MD, [facility] CPT-4: 51817 01/10/2018 81487 EST. PATIENT, LEVEL IV Diagnosis: Other specified hypothyroidism[ICD10: E03.8] Diagnosis: Essential (primary) hypertension[ICD10: I10] Britney Maya MD, [facility] CPT-4: 54760 12/06/2017 17906 EST. PATIENT, LEVEL IV Diagnosis: Other malaise[ICD10: R53.81] Diagnosis: Other fatigue[ICD10: R53.83] Britney Maya MD, [facility] CPT-4: 42286 06/22/2017 09423 EST. PATIENT, LEVEL IV Diagnosis: Acute laryngopharyngitis[ICD10: J06.0] Diagnosis: Other acute sinusitis[ICD10: J01.80] Diagnosis: Other allergic rhinitis[ICD10: J30.89] Britney Maya MD, [facility] CPT-4: 23692 03/02/2017 12350 EST. PATIENT, LEVEL IV Diagnosis: Generalized hyperhidrosis[ICD10: R61] Diagnosis: Other acute sinusitis[ICD10: J01.80] Diagnosis: Other fatigue[ICD10: R53.83] Diagnosis: Interstitial pulmonary disease, unspecified[ICD10: J84.9] Britney Maya MD, [facility] CPT-4: 19282 01/24/2017 79136 EST. PATIENT, LEVEL IV Diagnosis: Acute laryngopharyngitis[ICD10: J06.0] Diagnosis: Other acute sinusitis[ICD10: J01.80] Britney Maya MD, [facility] CPT- 4: 04754 10/13/2016 ([id number]) 56648 EST. P ATIENT, LEVEL IV Diagnosis: Essential (primary) hypertension[ICD10: I10] Diagnosis: Drug-induced polyneuropathy[ICD10: G62.0] Diagnosis: Impaired fasting glucose[ICD10: R73.01] Catie Maya MD, [facility] CPT-4: 52440 08/30/2016 73021 EST. PATIENT, LEVEL IV Diagnosis: Pain in thoracic spine[ICD10: M54.6] Diagnosis: Pain in left shoulder[ICD10: M25.512] Diagnosis: Zoster without complications[ICD10: B02.9] Britney Maya MD, [facility] CPT-4: 79110 07/02/2016 96313 EST. PATIENT, LEVEL III Diagnosis: Other specified hypothyroidism[ICD10: E03.8] Diagnosis: Menopausal and female climacteric states[ICD10: N95.1] Diagnosis: Essential (primary) hypertension[ICD10: I10] Britney Maya MD, [facility] CPT-4: 31498 06/24/2016 ([id number]) 27677 EST. P ATIENT, LEVEL IV Diagnosis: Essential (primary) hypertension[ICD10: I10] Diagnosis: Atrophy of thyroid (acquired)[ICD10: E03.4] Diagnosis: Pain in left foot[ICD10: M79.672] Meghana Maya MD, [facility] CPT-4: 53103 05/04/2016 ([id number]) 03019 EST. P ATIENT, LEVEL IV Diagnosis: Essential (primary) hypertension[ICD10: I10] Diagnosis: Pain in left leg[ICD10: M79.605] Diagnosis: Pain in left foot[ICD10: M79.672] Diagnosis: Atrophy of thyroid (acquired)[ICD10: E03.4] Meghana Maya MD, [facility] CPT-4: 80001 04/06/2016 ([id number]) 57012 EST. P ATIENT, LEVEL III Diagnosis: Essential (primary) hypertension[ICD10: I10] Diagnosis: Localized edema[ICD10: R60.0] Catie Maya MD, [facility] CPT- 4: 51392 03/18/2016 ([id number]) 36164 EST. P ATIENT, LEVEL III Diagnosis: Essential (primary) hypertension[ICD10: I10] Diagnosis: Pain in left foot[ICD10: M79.672] Catie Maya MD, [facility] CPT- 4: 69329 03/11/2016 ([id number]) 43968 EST. P ATIENT, LEVEL III Diagnosis: Localized edema[ICD10: R60.0] Diagnosis: Essential (primary) hypertension[ICD10: I10] Catie Maya MD, [facility] CPT-4: 59790 02/24/2016 ([id number]) 78177 EST. P ATIENT, LEVEL IV Diagnosis: Hypothyroidism, unspecified[ICD10: E03.9] Diagnosis: Essential (primary) hypertension[ICD10: I10] Meghana Maya MD, C CPT-4: 31791 12/16/2015 ([id number]) 09004 EST. P ATIENT, LEVEL III Diagnosis: Essential (primary) hypertension[ICD10: I10] Diagnosis: Hypothyroidism, unspecified[ICD10: E03.9] Meghana Maya MD, [facility] CPT-4: 72821 10/30/2015 ([id number]) 54627 EST. P ATIENT, LEVEL IV Diagnosis: Diarrhea, unspecified[ICD10: R19.7] Diagnosis: Essential (primary) hypertension[ICD10: I10] Meghana Maya MD, [facility] CPT-4: 26251 09/23/2015 ([id number]) 35593 EST. P ATIENT, LEVEL III Diagnosis: Essential (primary) hypertension[ICD10: I10] Diagnosis: Diarrhea, unspecified[ICD10: R19.7] Meghana Maya MD, [facility] CPT- 4: 82595 09/10/2015 ([id number]) 55537 EST. P ATIENT, LEVEL III Diagnosis: Acute maxillary sinusitis, unspecified[ICD10: J01.00] Diagnosis: Myositis, unspecified[ICD10: M60.9] Meghana Maya MD, [facility] CPT- 4: 58606 08/12/2015 ([id number]) 83940 EST. P ATIENT, LEVEL IV Diagnosis: Essential (primary) hypertension[ICD10: I10] Diagnosis: Pain in left leg[ICD10: M79.605] Diagnosis: Other myositis, multiple sites[ICD10: M60.89] Diagnosis: Hypothyroidism, unspecified[ICD10: E03.9] Meghana Maya MD, [facility] CPT-4: 10904 08/04/2015 08037 EST. PATIENT, LEVEL III Diagnosis: Dyspnea, unspecified[ICD10: R06.00] Diagnosis: Essential (primary) hypertension[ICD10: I10] Meghana Maya MD, [facility] CPT-4: 62661 05/16/2015 ([id number]) 83652 EST. P ATIENT, LEVEL II Diagnosis: Dyspnea, unspecified[ICD10: R06.00] Meghana Maya MD, [facility] CPT- 4: 90002 05/12/2015 ([id number]) [facility] 4 Diagnosis: Essential (primary) hypertension[ICD10: I10] Diagnosis: Impaired fasting glucose[ICD10: R73.01] Diagnosis: Mixed hyperlipidemia[ICD10: E78.2] Diagnosis: Hypothyroidism, unspecified[ICD10: E03.9] Diagnosis: Encounter for screening mammogram for malignant neoplasm of breast[ICD10: Z12.31] Catie Maya MD, [facility] CPT-4: 84620 04/21/2015 Plan of Care Planned Activity Notes C odes Status Date Appointment: Nurse Visit 01/22/2019 Patient Education: Patient Medication Summary Completed 01/22/2019 Appointment: Britney Bower WPtel: [address] [place], [place] [id number] (30 min) Complex 10/26/2018 Appointment: Britney Bower WPtel: [address] [place], [place] [id number] Nurse Visit 10/17/2018 Visit Plan: Hypertension - [...] to monitor - 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 Hospital follow up - This was a follow up appointment from the patient's hospitalization during which time Dr. Maya formulated the assessment and plan for the follow up on this patient's medical condition. 10/12/2018 Appointment: Britney Bower: [facility] (30 min) Complex 10/12/2018 Patient Education: Patient Medication Summary Completed 10/12/2018 Visit Plan: Hypokalemia - will send RX for potassium and monitor labs Interstitial lung disease - pt is to follow up with specialist and notify clinic with any changes in current treatment plan 09/13/2018 Appointment: Britney Bower: [facility] (30 min) Complex 09/13/2018 Patient Education: Patient Medication Summary Completed 09/13/2018 Visit Plan: Hypertension - well con lucioed [...] plan 05/04/2018 Appointment: Britney Bower WPtel: [phone] [facility] (15 min) Moderate 05/04/2018 Patient Education: Patient Medication Summary Completed 05/04/2018 Patient Education: Cholesterol Management Completed 05/04/2018 Appointment: Lab Draw 02/23/2018 Visit Plan: Hypertension - well roxanne valdesed - continue with current medications, continue with [...] plan 01/10/2018 Appointment: Britney Bower WPtel: [phone] [facility] (30 min) Complex 01/10/2018 Patient Education: Patient [...] of control. 12/06/2017 Appointment: Britney Bower WPtel: [phone] [facility] (15 min) Moderate 12/06/2017 Patient Education: Patient Medication Summary Completed 12/06/2017 Visit Plan: URI - Pt advised to inc rease fluids, vitamin C. Discussed natural and expected course of this diagnosis and need to alert me if symptoms do not follow expected course, or if any worse. RX sent to patient's pharmacy. 06/22/2017 Appointment: Britney Bower WPtel: [phone] [facility] (15 min) Moderate 06/22/2017 Patient Education: Patient [...] spray. 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 Maya - will increase clonidine to BID - pt is to consider referral to dermatology - notify clinic if symptoms do not improve, if they worsen, or with any other questions or concerns. 01/24/2017 Appointment: Britney Bower WPtel: [address] [place], [place] [phone] (30 min) Complex 01/24/2017 Patient Education: Patient [...] show improvement. 10/13/2016 Appointment: Britney Bower WPtel: [address] [place], [place] [phone] (30 min) Complex 10/13/2016 Patient Education: Patient [...] in blood pressure readings at home. 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 07/02/2016 Appointment: [phone] ([facility] min) Complex 07/02/2016 Patient Education: Patient [...] control. 06/24/2016 App[facility]ment: [phone] (30 min) Complex 06/24/2016 Patient Education: Patient Medication Summary Completed 06/24/2016 Patient Education: Obesity Completed 06/24/2016 Patient Education: Hypertension Completed 06/24/2016 Patient Education: Patient Medication Summary Completed 05/14/2016 Care Plan: SCREENINGMAMMOGRAPHYDIGITAL [facility] : 10677-0 Pending 05/14/2016 Visit Plan: Hypertension - well [...] painful. 05/04/2016 Appointment: [phone] (15 min) Moderate 05/04/2016 Patient Education: [...] medication. 04/06/2016 Appointment: [facility]el[phone] (15 min) Moderate 04/06/2016 Patient Education: Patient Medication Summary Completed 04/06/2016 Patient Education: Obesity Completed 04/06/2016 Care Plan: Referral Order SNOMED-CT : [id number] Pending 04/06/2016 Visit Plan: Edema-improved with low [...] acute concerns. 03/18/2016 Appointment: Catie Shoemaker WPtel: [address] [place], [place] [phone] (15 min) Moderate 03/18/2016 Patient Education: Patient [...] xray left foot-recommend she follow up with block chopper hand at regarding left foot pain/numbness/weakness. Patient has noticed worsening symptoms since decreasing prednisone. 03/11/2016 Appointment: Catie Shoemaker WPtel: [address] [place], [place] [phone] (15 min) Moderate 03/11/2016 Patient Education: Patient Medication Summary Completed 03/11/2016 Patient Education: Obesity Completed 03/11/2016 Appointment: Catie Shoemaker WPtel: [address] [place], [place] [phone] (30 min) Complex 03/09/2016 Visit Plan: Edema [...] 25mg daily 02/24/2016 Appointment: Catie Shoemaker WPtel: [phone] [place] (15 min) Moderate 02/24/2016 Patient Education: Patient Medication Summary Completed 02/24/2016 Patient Education: Obesity Completed 02/24/2016 Patient Education: Hypertension Completed 02/24/2016 Appointment: Meghana Maya WPtel: [phone] [facility] (15 min) Moderate 02/23/2016 Visit Plan: [...] control. 12/16/2015 Appointment: Megh[facility]Ptel: [phone] (15 min) Moderate 12/16/2015 Patient Education: [...] min) Complex 10/23/2015 Appointment: Meghana Maya WPtel: [phone] [facility] (15 min) Moderate 10/23/2015 Visit Plan: [...] at home. 09/10/2015 Appointment: Meghana Maya [facility]Ptel: [phone] (15 min) Moderate 09/10/2015 Patient Education: [...] min) Complex 07/24/2015 Appointment: Meghana Maya WPtel: [facility] (15 min) Moderate 07/24/2015 Appointment: Lab [...] Completed 04/21/2015 Care Plan: SCREENINGMAMMOGRAPHYDIGITAL LOINC : 62708-4 Ordered 04/21/2015 Appointment: Meghana Maya WPtel: [phone] [place] ([place] New Patient 04/01/2015 Referral: [...] IN FOOT AND ANKLE DISEASE AT [address] INCREASE THE METOPROLOL TO 1.5 PILLS [...] in blood pressure readings at home. 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 APPOINTMENT WITH RHEUMATOLGIST AT [facility] . Hypertension - well controlled [...] xray left foot-recommend she follow up with block chopper hand at regarding left foot pain/numbness/weakness. 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 Maya - will increase clonidine to BID - pt is to consider referral to dermatology - notify clinic if symptoms do not improve, if they worsen, or with any other questions or concerns. probiotic - [email or web address], probiotic pearls, etc - take three times [...] to monitor - pt has seen a farm boss in the past and does not want [...]
--- OUTSIDE RECORDS SUMMARY | 2019-08-14 06:19 | XMS REPORT | CCD ---
Author Author Carolann Shoemaker Organization Meghana Maya MD, [facility] Address [facility] [place] [address] Phone Care Team Providers Care Manager Consumer Name Role Phone PP Unavailable CCM Unavailable Summary Purpose Interface Exchange Family history Mother Diagnosis Age At Onset Hypertension Unknown Breast cancer Unknown Osteoporosis Unknown Father Diagnosis Age At Onset kidney disease Unknown Cancer Unknown Hyperlipidemia Unknown Social History Social History Element Codes Description Effective Dates Marital status Unknown D ivorced 04/21/2015 Number of children Unknown 1 04/21/2015 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/[address]: 075169059 Never smoker 04/21/2015 Alcohol history Unknown occasionally drinks alcohol 04/21/2015 Allergies, Adverse Reactions, Alerts Substance Reaction Codes Entered Date Inactivated Date Status [id number] REDU CTASE INHIBITORS myalgias Unknown 016 No [...] 50 mg tablet,extended release 24 hr RxNorm: 932371 1 Tablet(s) PO daily 01/22/2019 01/16/2020 Active metoprolol succinate ER 100 mg tablet,extended release 24 hr RxNorm: 928188 1 Tablet(s) PO daily 01/22/2019 01/21/2019 Inactive metoprolol succinate ER 100 mg tablet,extended release 24 hr RxNorm: 952448 1 Tablet(s) PO daily 01/22/2019 01/22/2019 Inactive oxybutynin chloride 5 mg tablet RxNorm: 359416 1/2 Tablet(s) PO hari y 01/04/2019 02/02/2019 Ac tive oxybutynin chloride 5 mg tablet RxNorm: 201458 1/2 Tablet(s) PO hari y 01/04/2019 01/03/2019 In active losartan 25 mg tablet RxNorm: 987284 TAKE ONE TABLET BY MOUTH DAILY 12/04/2018 06/01/2019 Ac tive Lipitor 20 mg tablet RxNorm: 302682 TAKE ONE TABLET BY MOUTH DAILY 12/04/2018 06/01/2019 Ac tive venlafaxine ER 150 m g capsule,extended release 24 hr RxNorm: 743880 TAKE ONE CAPSULE BY MOUTH DAILY 12/04/2018 06/01/2019 Active nystatin 100,000 uni t/mL oral suspension RxNorm: 030282 4 Unit(s) PO QID 10/17/2018 10/23/2018 In active nystatin 100,000 uni t/mL oral suspension RxNorm: 788688 4 Unit(s) PO QID 10/17/2018 10/16/2018 In active metoprolol succinate ER 50 mg tablet,extended release 24 hr RxNorm: 894054 1 Tablet(s) PO daily 10/17/2018 01/19/2019 Inactive potassium chloride E R 10 mEq tablet,extended release RxNorm: 942370 Tablet(s) TAKE ONE TABLET BY MOUTH DAILY 09/15/2018 03/13/2019 Active candesartan 4 mg tablet RxNorm: 315476 1 Tablet(s) PO daily 09/15/2018 10/14/2018 Inactive clonidine HCl 0.1 mg tablet RxNorm: 632585 TAKE ONE TABLET BY MO UT TWICE A DAY 09/14/2018 02/10/2019 Ac tive losartan 25 mg tablet RxNorm: 200419 TAKE ONE TABLET BY MOUTH DAILY 09/14/2018 11/12/2018 In active clonidine HCl 0.1 mg tablet RxNorm: 996393 Tablet(s) TAKE ONE TA BLET BY MOUTH AT BEDTIME 09/13/2018 No Stop Date Active venlafaxine ER 150 m g capsule,extended release 24 hr RxNorm: 284526 TAKE ONE CAPSULE BY MOUTH DAILY 05/15/2018 11/10/2018 Inactive Lipitor 20 mg tablet RxNorm: 260454 TAKE ONE TABLET BY MOUTH DAILY 05/15/2018 11/10/2018 In active losartan 25 mg tablet RxNorm: 741567 TAKE ONE TABLET BY MOUTH DAILY 04/17/2018 07/14/2018 In active losartan 25 mg tablet RxNorm: 217712 TAKE ONE TABLET BY MOUTH DAILY 04/17/2018 04/16/2018 In active Lipitor 20 mg tablet RxNorm: 071378 1 Tablet(s) PO daily 01/12/2018 01/11/2018 Inactive Lipitor 20 mg tablet RxNorm: 411940 1 Tablet(s) PO daily 01/12/2018 05/11/2018 Inactive clonidine HCl 0.1 mg tablet RxNorm: 570319 TAKE ONE TABLET BY MO UT TWICE A DAY 01/04/2018 07/02/2018 In active potassium chloride E R 10 mEq tablet,extended release RxNorm: 370619 TAKE ONE TABLET BY MOUTH DAILY 01/04/2018 09/12/2018 Inactive losartan 25 mg tablet RxNorm: 744660 TAKE ONE TABLET BY MOUTH DAILY 01/03/2018 04/02/2018 In active levothyroxine 50 mcg tablet RxNorm: 267421 1 Tablet(s) PO daily 12/08/2017 09/12/2018 Inactive losartan 25 mg tablet RxNorm: 231621 1 Tablet(s) PO daily 12/06/2017 01/02/2018 Inactive venlafaxine ER 150 m g capsule,extended release 24 hr RxNorm: 722242 TAKE ONE CAPSULE BY MOUTH DAILY 12/06/2017 05/04/2018 Inactive metoprolol succinate ER 50 mg tablet,extended release 24 hr RxNorm: 991143 TAKE ONE TABLET BY MOUTH DAILY 08/29/2017 01/25/2018 Inactive metoprolol succinate ER 50 mg tablet,extended release 24 hr RxNorm: 723068 TAKE ONE TABLET BY MOUTH DAILY 08/29/2017 08/28/2017 Inactive metoprolol succinate ER 50 mg tablet,extended release 24 hr RxNorm: 332141 TAKE ONE TABLET BY MOUTH DAILY 08/29/2017 08/28/2017 Inactive Tamiflu 75 mg capsule RxNorm: 660169 1 Capsule(s) PO BID 06/22/2017 06/26/2017 Inactive Kenalog 40 mg/mL jenna pension for injection RxNorm: 9319335 1.5 Milliliter(s) In j 06/22/2017 06/22/2017 In active clonidine HCl 0.1 mg tablet RxNorm: 171182 TAKE ONE TABLET BY [facility] TWICE A DAY 06/06/2017 12/02/2017 In active potassium chloride E R 10 mEq tablet,extended release RxNorm: 984633 TAKE ONE TABLET BY MOUTH DAILY 06/06/2017 12/02/2017 Inactive venlafaxine ER 150 m g capsule,extended release 24 hr RxNorm: 855459 TAKE ONE CAPSULE BY MOUTH DAILY 05/23/2017 11/18/2017 Inactive Zithromax 500 mg tablet RxNorm: 749132 1 Tablet(s) PO daily 05/18/2017 05/22/2017 Inactive potassium chloride E R 10 mEq tablet,extended release RxNorm: 048733 TAKE ONE TABLET BY MOUTH DAILY 04/21/2017 05/20/2017 Inactive potassium chloride E R 10 mEq tablet,extended release RxNorm: 506364 TAKE ONE TABLET BY MOUTH DAILY 03/16/2017 04/14/2017 Inactive Zithromax Z-Jacek 250 mg tablet RxNorm: 126969 1 Tablet(s) PO UD 03/02/2017 06/21/2017 Inactive venlafaxine ER 150 m g capsule,extended release 24 hr RxNorm: 943462 Capsule(s) TAKE ONE CAPSULE BY MOUTH DAILY 02/17/2017 02/16/2017 Inactive venlafaxine ER 150 m g capsule,extended release 24 hr RxNorm: 080282 TAKE ONE CAPSULE BY MOUTH DAILY 02/17/2017 05/14/2018 Inactive clonidine HCl 0.1 mg tablet RxNorm: 902577 TAKE ONE TABLET BY MO UT EVERY NIGHT AT BEDTIME 02/14/2017 01/03/2018 Inactive metoprolol succinate ER 50 mg tablet,extended release 24 hr RxNorm: 670983 TAKE ONE TABLET BY MOUTH DAILY 02/14/2017 08/12/2017 Inactive Protonix 40 mg table t,delayed release RxNorm: 907987 TAKE ONE TABLET BY MO UT DAILY WHILE ON PREDNISONE 01/25/2017 09/12/2018 Inactive Zithromax Z-Jacek 250 mg tablet RxNorm: 479668 1 Tablet(s) PO UD 01/24/2017 01/03/2018 Inactive potassium chloride E R 10 mEq tablet,extended release RxNorm: 454439 TAKE ONE TABLET BY MOUTH DAILY 01/17/2017 03/15/2017 Inactive clonidine HCl 0.1 mg tablet RxNorm: 317717 TAKE ONE TABLET BY SD UT EVERY NIGHT AT BEDTIME 01/17/2017 02/13/2017 Inactive potassium chloride E R 10 mEq tablet,extended release RxNorm: 383816 TAKE ONE TABLET BY MOUTH DAILY 12/16/2016 01/14/2017 Inactive venlafaxine ER 150 m g capsule,extended release 24 hr RxNorm: 550905 TAKE ONE CAPSULE BY MOUTH DAILY 11/18/2016 02/15/2017 Inactive clonidine HCl 0.1 mg tablet RxNorm: 725181 TAKE ONE TABLET BY MO UT EVERY NIGHT AT BEDTIME 11/08/2016 01/06/2017 Inactive clonidine HCl 0.1 mg tablet RxNorm: 862745 1 Tablet(s) BID 10/19/2016 01/16/2017 Inactive potassium chloride E R 10 mEq tablet,extended release RxNorm: 579296 TAKE ONE TABLET BY MOUTH DAILY 10/15/2016 11/13/2016 Inactive Zithromax Z-Jacek 250 mg tablet RxNorm: 123272 1 Tablet(s) PO UD 10/13/2016 01/03/2018 Inactive potassium chloride E R 10 mEq tablet,extended release RxNorm: 039042 TAKE ONE TABLET BY MOUTH DAILY 10/12/2016 10/14/2016 Inactive potassium chloride E R 10 mEq tablet,extended release RxNorm: 379655 Tablet(s) BID TAKE ONE TABLET BY MOUTH TWICE DAILY 09/17/2016 10/11/2016 Inactive potassium chloride E R 10 mEq tablet,extended release RxNorm: 364545 TAKE ONE TABLET BY MOUTH DAILY 09/13/2016 09/16/2016 Inactive clonidine HCl 0.1 mg tablet RxNorm: 629184 Tablet(s) TAKE ONE TA BLET BY MOUTH EVERY NIGHT AT BEDTIME 08/12/2016 10/18/2016 Inactive gabapentin 300 mg ca psule RxNorm: 261785 1 Capsule(s) PO QHS 08/10/2016 No Stop Date Active venlafaxine ER 150 m g capsule,extended release 24 hr RxNorm: 339375 TAKE ONE CAPSULE BY MOUTH DAILY 08/09/2016 11/06/2016 Inactive metoprolol succinate ER 50 mg tablet,extended release 24 hr RxNorm: 486697 TAKE ONE TABLET BY MOUTH DAILY 07/29/2016 01/24/2017 Inactive clonidine HCl 0.1 mg tablet RxNorm: 911929 TAKE ONE TABLET BY MO UTH EVERY NIGHT AT BEDTIME 07/21/2016 08/11/2016 Inactive potassium chloride E R 10 mEq tablet,extended release RxNorm: 296385 TAKE ONE TABLET BY MOUTH DAILY 07/14/2016 09/11/2016 Inactive Prescriber not associated w ith this practice or location acyclovir 400 mg tablet RxNorm: 780348 2 Tablet(s) PO QID 07/02/2016 07/11/2016 Inactive cyclobenzaprine 5 mg tablet RxNorm: 400110 1-2 Tablet(s) PO TID as needed 07/02/2016 07/06/2016 In active capsaicin 0.1 % topi reagan cream RxNorm: 716514 1 Application TOP TID as needed 07/02/2016 09/12/2018 In active Protonix 40 mg table t,delayed release RxNorm: 161348 TAKE ONE TABLET BY MO UTH DAILY WHILE ON PREDNISONE 06/29/2016 12/25/2016 Inactive clonidine HCl 0.1 mg tablet RxNorm: 677939 1 Tablet(s) PO QHS 06/25/2016 07/20/2016 Inactive calcium carbonate 50 0 mg calcium (1,250 mg) tablet RxNorm: 296386 TAKE ONE TABLET BY MOUTH DAILY WHILE ON PREDNISONE. MAY STOP TAKING WHEN PREDNISONE IS COMPLETE 06/01/2016 09/12/2018 In active Vitamin D3 1,000 uni t tablet RxNorm: 808266 1 Tablet(s) PO daily . May stop taking once prednisone is complete. 04/26/2016 09/12/2018 Inactive metoprolol succinate ER 50 mg tablet,extended release 24 hr RxNorm: 473071 1.5 Tablet(s) PO daily 04/06/2016 06/23/2016 Inactive prednisone 10 mg tablet RxNorm: 824466 1 Tablet(s) PO daily 04/02/2016 06/21/2017 Inactive metoprolol succinate ER 50 mg tablet,extended release 24 hr RxNorm: 904941 1 Tablet(s) PO daily 03/18/2016 04/05/2016 Inactive amlodipine 10 mg tablet RxNorm: 000650 1/2 Tablet(s) PO daily 02/24/2016 06/21/2016 Inactive metoprolol succinate ER 25 mg tablet,extended release 24 hr RxNorm: 546679 1 Tablet(s) PO daily 02/24/2016 03/16/2016 Inactive calcium carbonate 50 0 mg calcium (1,250 mg) tablet RxNorm: 196465 TAKE ONE TABLET BY MOUTH DAILY WHILE ON PREDNISONE. MAY STOP TAKING WHEN PREDNISONE IS COMPLETE 02/16/2016 05/15/2016 In active Protonix 40 mg table t,delayed release RxNorm: 581705 TAKE ONE TABLET BY MO UTH DAILY WHILE ON PREDNISONE 02/10/2016 05/09/2016 Inactive venlafaxine ER 150 m g capsule,extended release 24 hr RxNorm: 975328 Capsule(s) TAKE ONE CAPSULE BY MOUTH DAILY 12/10/2015 04/07/2016 Inactive calcium carbonate 50 0 mg calcium (1,250 mg) tablet RxNorm: 560165 1 Tablet(s) PO daily 12/01/2015 01/29/2016 Inactive Vitamin D3 1,000 uni t tablet RxNorm: 044245 1 Tablet(s) PO daily 12/01/2015 03/29/2016 Inactive levothyroxine 50 mcg tablet RxNorm: 065348 1 Tablet(s) PO daily 12/01/2015 11/24/2016 Inactive amlodipine 10 mg tablet RxNorm: 723707 1 Tablet(s) PO daily 11/19/2015 11/18/2015 Inactive amlodipine 10 mg tablet RxNorm: 651309 1 Tablet(s) PO daily 11/19/2015 02/23/2016 Inactive amlodipine 5 mg tablet RxNorm: 472556 1 Tablet(s) PO daily 11/17/2015 11/18/2015 Inactive venlafaxine ER 150 m g capsule,extended release 24 hr RxNorm: 201627 TAKE ONE CAPSULE BY MOUTH DAILY 11/13/2015 12/09/2015 Inactive Protonix 40 mg table t,delayed release RxNorm: 297505 1 Tablet(s) PO daily while on prednisone 2015 02/09/2016 Inactive prednisone 10 mg tablet RxNorm: 238363 2 Tablet(s) PO UD 10/30/2015 04/01/2016 Inactive 60mg for 2 days, then 50mg for 2 days, then 40mg for 2 days, then 30mg for 2 days, then 20mg for 2 days, then 10mg for 2 days, then 5mg for 2 days potassium chloride E R 10 mEq tablet,extended release RxNorm: 806781 TAKE ONE TABLET BY MOUTH DAILY 09/22/2015 12/19/2015 Inactive venlafaxine ER 150 m g capsule,extended release 24 hr RxNorm: 829585 TAKE ONE CAPSULE BY MOUTH DAILY 09/08/2015 11/06/2015 Inactive cefdinir 300 mg capsule RxNorm: 399878 1 Capsule(s) PO BID 08/20/2015 08/22/2015 Inactive cefdinir 300 mg capsule RxNorm: 245355 1 Capsule(s) PO BID 08/12/2015 08/18/2015 Inactive Kenalog 40 mg/mL jenna pension for injection RxNorm: 4087724 1 Milliliter(s) Inj 08/04/2015 08/04/2015 In active triamterene 37.5 mg- hydrochlorothiazide 25 mg tablet RxNorm: 749562 1 Tablet(s) PO BID 06/17/2015 08/03/2015 Inactive potassium chloride E R 10 mEq tablet,extended release RxNorm: 399863 1 Tablet(s) PO daily 05/30/2015 08/03/2015 Inactive Levaquin 250 mg tablet RxNorm: 023030 Tablet(s) PO UD 500 mg day one, then 250 mg day 2-7 05/27/2015 08/03/2015 Inactive prednisone 10 mg tablet RxNorm: 568095 Tablet(s) PO UD 05/27/2015 10/29/2015 Inactive 60mg for 2 days, then 50mg for 2 days, then 40mg for 2 days, then 30mg for 2 days, then 20mg for 2 days, then 10mg for 2 days, then 5mg for 2 days albuterol sulfate 1. 25 mg/3 mL solution for nebulization RxNorm: 712518 3 Milliliter(s) INH Q4-6H as needed dyspnea 05/23/2015 09/12/2018 Inactive Zithromax 500 mg tablet RxNorm: 383958 1 Tablet(s) PO daily 05/16/2015 05/15/2015 Inactive Zithromax 500 mg tablet RxNorm: 515577 1 Tablet(s) PO daily 05/16/2015 05/20/2015 Inactive prednisone 20 mg tablet RxNorm: 969089 3 Tablet(s) PO daily 05/12/2015 05/16/2015 Inactive venlafaxine ER 150 m g capsule,extended release 24 hr RxNorm: 529857 TAKE ONE CAPSULE BY MOUTH DAILY 05/12/2015 08/09/2015 Inactive Keflex 500 mg capsule RxNorm: 294031 1 Capsule(s) PO TID 05/12/2015 05/18/2015 Inactive simvastatin 20 mg ta blet RxNorm: 729564 1 Tablet(s) PO daily 04/10/2015 04/09/2015 Inactive simvastatin 20 mg ta blet RxNorm: 188096 1 Tablet(s) PO daily 04/10/2015 08/11/2015 Inactive venlafaxine ER 150 m g capsule,extended release 24 hr RxNorm: 488566 TAKE ONE CAPSULE BY MOUTH DAILY 04/08/2015 05/07/2015 Inactive amlodipine 5 mg tablet RxNorm: 765585 1 Tablet(s) PO daily 03/07/2015 03/06/2015 Inactive amlodipine 5 mg tablet RxNorm: 317904 1 Tablet(s) PO daily 03/07/2015 07/04/2015 Inactive venlafaxine ER 150 m g capsule,extended release 24 hr RxNorm: 050057 1 Capsule(s) PO daily 01/29/2015 03/29/2015 Inactive Co Q-10 oral RxNorm: 51490 oral No Start Date Active gabapentin 100 mg ca psule RxNorm: 830439 1 Capsule(s) PO QAM No Start Date Active albuterol sulfate 1. 25 mg/3 mL solution for nebulization RxNorm: 007691 3 Milliliter(s) INH Q4-6H as needed dyspnea No Start Date 05/22/2015 Inactive levothyroxine 50 mcg tablet RxNorm: 331277 1 Tablet(s) PO daily No Start Date 11/30/2015 Inactive metoprolol succinate ER 50 mg tablet,extended release 24 hr RxNorm: 608019 1 Tablet(s) PO daily No Start Date 09/12/2018 Inactive gabapentin 300 mg ca psule RxNorm: 296165 1 Capsule(s) PO QHS No Start Date 08/09/2016 Inactive vitamin B complex oral RxNorm: 87366 oral No Start Date 09/12/2018 Inactive Vitamin D3 1,000 uni t tablet RxNorm: 429221 1 Tablet(s) PO daily No Start Date 11/30/2015 Inactive Protonix 40 mg table t,delayed release RxNorm: 939709 1 Tablet(s) PO daily while on prednisone No Start Date 10/30/2015 Inactive calcium carbonate oral RxNorm: oral No Start Date 11/30/2015 Inactive potassium chloride E R 10 mEq tablet,extended release RxNorm: 729156 1 Tablet(s) PO daily No Start Date 05/29/2015 Inactive Levaquin 250 mg tablet RxNorm: 907624 Tablet(s) PO UD 500 mg day one, then 250 mg day 2-7 No Start Date 05/26/2015 Inactive triamterene 37.5 mg- hydrochlorothiazide 25 mg tablet RxNorm: 947146 1 Tablet(s) PO BID No Start Date 06/16/2015 Inactive prednisone 10 mg tablet RxNorm: 222235 Tablet(s) PO UD No Start Date 05/26/2015 Inactive 60mg for 2 days, then 50mg for 2 days, then 40mg for 2 days, then 30mg for 2 days, then 20mg for 2 days, then 10mg for 2 days, then 5mg for 2 days venlafaxine ER 150 m g capsule,extended release 24 hr RxNorm: 126135 1 Capsule(s) PO daily No Start Date 01/28/2015 Inactive Medication Administered Medication Codes Instruc tions Start Date Status Kenalog 40 mg/mL suspension for injection RxNorm: 3357053 1.5Milliliter 06/22/2017 No longer Active Kenalog 40 mg/mL suspension for injection RxNorm: 3363950 1Milliliter 08/04/2015 N o longer Active Immunizations [...] Item Item Code Result Date Comp Metabolic Eqd099 NA 142 mEq/L 10/12/2018 Comp Metabolic Qjx532 K 4.0 mEq/L 10/12/2018 Comp Metabolic Zcx108 CL 105 mEq/L 10/12/2018 Comp Metabolic Hjc293 CO2 21.0 mEq/L 10/12/2018 Comp Metabolic Qjr827 AN ION GAP 20 10/12/2018 Comp Metabolic Wgn457 GL UCOSE 105 mg/dL 10/12/2018 Comp Metabolic Swd066 Cr eat 1.8 mg/dL 10/12/2018 Comp Metabolic Kks593 eG FR 30 ml/min/1.73m2 10/12 Comp Metabolic Eem271 BUN 19 mg/dL 10/12/2018 Comp Metabolic Hiq230 B/ C Ratio 10.5 Ratio 10/12/2018 Comp Metabolic Iwu655 CA LCIUM 9.0 mg/dL 10/12/2018 Comp Metabolic Nuw528 AL K PHOS 74 U/L 10/12/2018 Comp Metabolic Hup271 T(SGOT) 21 U/L 10/12/2018 Comp Metabolic Xgm145 AL T(SGPT) 22 U/L 10/12/2018 Comp Metabolic Gdv454 BI LI T 0.4 mg/dL 10/12/2018 Comp Metabolic Iex766 AL BUMIN 3.9 g/dL 10/12/2018 Comp Metabolic Zty630 TP RO 6.1 g/dL 10/12/2018 Comp Metabolic Vll003 GL OB 2.2 g/dL 10/12/2018 Comp Metabolic Iwn286 A/ G Ratio 1.7 Ratio 10/12/2018 Comp Metabolic Xrj833 Os mo 286 mOsmo 10/12/2018 Cbc With [...] 28.0 pg 10/12/2018 Cbc With Differential Ord2 Reeves% 16.6 % 10/12/2018 Cbc With Differential Ord2 [...] 1.77 K/ul 10/12/2018 Cbc With Differential Ord2 Reeves ABS# 2.4 K/ul 10/12/2018 Cbc With Differential Ord2 Eos ABS# 0.0 K/ul 10/12/2018 Cbc With Differential Ord2 Baso ABS# 0.0 K/ul 10/12/2018 Electrolytes Ord62 NA 140 mEq/L 09/15/2018 Electrolytes Ord62 K 4.2 mEq/L 09/15/2018 Electrolytes Ord62 CL 111 mEq/L 09/15/2018 Electrolytes Ord62 CO2 20.0 mEq/L 09/15/2018 Electrolytes Ord62 ANION GAP 13 09/15/2018 Comp Metabolic Qzv431 NA 140 mEq/L 01/10/2018 Comp Metabolic Pbe825 K 3.8 mEq/L 01/10/2018 Comp Metabolic Ddf767 CL 106 mEq/L 01/10/2018 Comp Metabolic Ckc659 CO2 25.0 mEq/L 01/10/2018 Comp Metabolic Iiz729 AN ION GAP 13 01/10/2018 Comp Metabolic Zxg191 GL UCOSE 110 mg/dL 01/10/2018 Comp Metabolic Tau704 Cr eat 1.5 mg/dL 01/10/2018 Comp Metabolic Zgb786 eG FR 37 ml/min/1.73m2 01/10 Comp Metabolic Eeh616 BUN 23 mg/dL 01/10/2018 Comp Metabolic Vhr509 B/ C Ratio 15.3 Ratio 01/10/2018 Comp Metabolic Asz289 CA LCIUM 9.2 mg/dL 01/10/2018 Comp Metabolic Kgv584 AL K PHOS 87 U/L 01/10/2018 Comp Metabolic Kmy008 T(SGOT) 15 U/L 01/10/2018 Comp Metabolic Xtn199 AL T(SGPT) 9 U/L 01/10/2018 Comp Metabolic Vim138 BI LI T 0.4 mg/dL 01/10/2018 Comp Metabolic Ict869 AL BUMIN 3.8 g/dL 01/10/2018 Comp Metabolic Ksd154 TP RO 6.2 g/dL 01/10/2018 Comp Metabolic Lmd305 GL OB 2.4 g/dL 01/10/2018 Comp Metabolic Khr733 A/ G Ratio 1.6 Ratio 01/10/2018 Comp Metabolic Gpq108 Os mo 284 mOsmo 01/10/2018 C-Reactive Protein [...] 27.6 pg 01/10/2018 Cbc With Differential Ord2 Reeves% 15.2 % 01/10/2018 Cbc With Differential Ord2 [...] 1.47 K/ul 01/10/2018 Cbc With Differential Ord2 Reeves ABS# 1.0 K/ul 01/10/2018 Cbc With Differential Ord2 Eos ABS# 0.1 K/ul 01/10/2018 Cbc With Differential Ord2 Baso ABS# 0.0 K/ul 01/10/2018 Sed Rate Ord21 ESR 12 mm/hr 01/10/2018 Free T4 Dvj461 FREE T4 0.57 ng/dL 12/06/2017 Tsh Ord6 TSH (3rd IS) 7.40 uIU/mL 12/06/2017 C A/B FLU 0687192 Influe nza A Scr Negative 06/22/2017 C A/B FLU 1223202 Influe nza B Scr Negative 06/22/2017 C A/B FLU [id number] Influe nza Intrp B AG:PRID:PT:NOSE:NOM:IF See Footnote 06/22/2017 Comp Metabolic Llo332 NA 140 mEq/L 08/30/2016 Comp Metabolic Ghf222 K 3.3 mEq/L 08/30/2016 Comp Metabolic Png655 CL 104 mEq/L 08/30/2016 Comp Metabolic Vfg774 CO2 26.0 mEq/L 08/30/2016 Comp Metabolic Yhy740 AN ION GAP 13 08/30/2016 Comp Metabolic Moc877 GL UCOSE 143 mg/dL 08/30/2016 Comp Metabolic Ili460 Cr eat 1.3 mg/dL 08/30/2016 Comp Metabolic Zsn757 eG FR 43 ml/min/1.73m2 08/30 Comp Metabolic Hrf762 BUN 19 mg/dL 08/30/2016 Comp Metabolic Ccr682 B/ C Ratio 14.3 Ratio 08/30/2016 Comp Metabolic Dzy531 CA LCIUM 10.0 mg/dL 08/30/2016 Comp Metabolic Pii833 AL K PHOS 67 U/L 08/30/2016 Comp Metabolic Pot955 T(SGOT) 28 U/L 08/30/2016 Comp Metabolic Uyd810 AL T(SGPT) 43 U/L 08/30/2016 Comp Metabolic Qgb644 BI LI T 0.4 mg/dL 08/30/2016 Comp Metabolic Ihi160 AL BUMIN 4.0 g/dL 08/30/2016 Comp Metabolic Uov558 TP RO 6.2 g/dL 08/30/2016 Comp Metabolic Jcm093 GL OB 2.2 g/dL 08/30/2016 Comp Metabolic Hin659 A/ G Ratio 1.8 Ratio 08/30/2016 Comp Metabolic Awi121 Os mo 284 mOsmo 08/30/2016 %Hba1C Jgx103 % HbA1c 88047-7 6.1 % 08/30/2016 %Hba1C Aze608 Gluc Ave 128 mg/dL 08/30/2016 Free T4 Kub422 FREE T4 0.75 ng/dL 06/25/2016 Tsh Ord6 [...] Ord90 Mag 2.1 mg/dL 12/16/2015 Free T4 Dzl630 FREE T4 0.92 ng/dL 12/16/2015 Tsh Ord6 [...] 28.5 pg 08/04/2015 Cbc With Differential Ord2 Reeves% 6.1 % 08/04/2015 Cbc With Differential Ord2 [...] 0.73 K/ul 08/04/2015 Cbc With Differential Ord2 Reeves ABS# 0.5 K/ul 08/04/2015 Cbc With Differential Ord2 Eos ABS# 0.1 K/ul 08/04/2015 Cbc With Differential Ord2 Baso ABS# 0.0 K/ul 08/04/2015 Cbc With Differential Ord2 New Analyzer Notice Please note new ref ranges s tarting 07-09-2015 due to implemntation of new five part differential hematolgy analyzer. 08/04/2015 C-Reactive Protein Qnt Crqnt CRP 0.8 mg/dl 08/04/2015 Comp Metabolic Xqd139 NA 139 mEq/L 08/04/2015 Comp Metabolic Gav329 K 3.4 mEq/L 08/04/2015 Comp Metabolic Jxk779 CL 109 mEq/L 08/04/2015 Comp Metabolic Bqo629 CO2 22.0 mEq/L 08/04/2015 Comp Metabolic Glx620 AN ION GAP 11 08/04/2015 Comp Metabolic Lpo210 GL UCOSE 177 mg/dL 08/04/2015 Comp Metabolic Vxw156 Cr eat 1.0 mg/dL 08/04/2015 Comp Metabolic Eqh944 eG FR 64 ml/min/1.73m2 08/04 Comp Metabolic Eds979 BUN 35 mg/dL 08/04/2015 Comp Metabolic Kly293 B/ C Ratio 36.8 Ratio 08/04/2015 Comp Metabolic Mtu388 CA LCIUM 8.5 mg/dL 08/04/2015 Comp Metabolic Nff505 AL K PHOS 57 U/L 08/04/2015 Comp Metabolic Lxq078 T(SGOT) 21 U/L 08/04/2015 Comp Metabolic Mli489 AL T(SGPT) 63 U/L 08/04/2015 Comp Metabolic Gag315 BI LI T 0.3 mg/dL 08/04/2015 Comp Metabolic Iqs704 AL BUMIN 3.1 g/dL 08/04/2015 Comp Metabolic Php278 TP RO 5.1 g/dL 08/04/2015 Comp Metabolic Iey004 GL OB 2.0 g/dL 08/04/2015 Comp Metabolic Btv770 A/ G Ratio 1.6 Ratio 08/04/2015 Comp Metabolic Iqm745 Os mo 290 mOsmo 08/04/2015 Cpk Ord61 CPK 52 U/L 08/04/2015 Random Urine Protein/Creatinine Ratio Pup9421 U Prot 8.5 mg/dl 05/27/2015 Random Urine Protein/Creatinine Ratio Xwy6291 U CREAT 201.0 mg/dL 05/27/2015 Random Urine Protein/Creatinine Ratio Iaj5689 R MTP/Creat Ratio 0.04 05/27/2015 Urinalysis Ord28 [...] hours from collection if refrigerated) 05/27/2015 Renal Kkz424 NA 136 mEq/L 05/26/2015 Renal Pli328 K 3.3 mEq/L 05/26/2015 Renal Mql977 CL 99 mEq/L 05/26/2015 Renal Ywn469 CO2 25.0 mEq/L 05/26/2015 Renal Upn213 ANION GAP 15 05/26/2015 Renal Ngc917 Osmo 274 mOsmo 05/26/2015 Renal Twr917 GLUCOSE 106 mg/dL 05/26/2015 Renal Gyj264 BUN 17 mg/dL 05/26/2015 Renal Gaw367 Creat 1.4 mg/dL 05/26/2015 Renal Wfs448 eGFR 40 ml/min/1.73m2 05/26/2015 Renal Hqf732 B/C Ratio 12.0 Ratio 05/26/2015 Renal Iuq148 CALCIUM 9.3 mg/dL 05/26/2015 Renal Xwf349 PHOS 3.4 mg/dL 05/26/2015 Renal Awh781 ALBUMIN 3.4 g/dL 05/26/2015 Cbc With Differential [...] Ord2 RDW 14.3 % 04/21/2015 Free T4 Gbu417 FREE T4 0.91 ng/dL 04/21/2015 %Hba1C Dbn833 % HbA1c 50119-3 5.8 % 04/21/2015 %Hba1C Fjh418 Gluc Ave 120 mg/dL 04/21/2015 Comp Metabolic Nbl649 NA 137 mEq/L 04/21/2015 Comp Metabolic Uzr797 K 3.6 mEq/L 04/21/2015 Comp Metabolic Kzn219 CL 98 mEq/L 04/21/2015 Comp Metabolic Grq817 CO2 25.0 mEq/L 04/21/2015 Comp Metabolic Cby443 AN ION GAP 18 04/21/2015 Comp Metabolic Iwm137 GL UCOSE 83 mg/dL 04/21/2015 Comp Metabolic Iil726 Cr eat 1.6 mg/dL 04/21/2015 Comp Metabolic Jlx268 eG FR 36 ml/min/1.73m2 04/21 Comp Metabolic Pia751 BUN 28 mg/dL 04/21/2015 Comp Metabolic Mwk335 B/ C Ratio 17.9 Ratio 04/21/2015 Comp Metabolic Wgd323 CA LCIUM 9.5 mg/dL 04/21/2015 Comp Metabolic Ngh208 AL K PHOS 60 U/L 04/21/2015 Comp Metabolic Nqx604 T(SGOT) 22 U/L 04/21/2015 Comp Metabolic Xhn627 AL T(SGPT) 10 U/L 04/21/2015 Comp Metabolic Izv981 BI LI T 0.4 mg/dL 04/21/2015 Comp Metabolic Vms532 AL BUMIN 4.0 g/dL 04/21/2015 Comp Metabolic Ubl910 TP RO 6.8 g/dL 04/21/2015 Comp Metabolic Prx277 GL OB 2.8 g/dL 04/21/2015 Comp Metabolic Rkk331 A/ G Ratio 1.4 Ratio 04/21/2015 Comp Metabolic Mzm948 Os mo 278 mOsmo 04/21/2015 Tsh Ord6 [...] Procedure Codes Date THER/PROPH/DIAG INJ SC/IM CPT-4: 84049 06/22/2017 TRIAMCINOLONE ACET I [place] NOS CPT-4: J3301 06/22/2017 THER/PROPH/DIAG INJ SC/IM CPT-4: 75666 08/04/2015 TRIAMCINOLONE ACET I [place] NOS CPT-4: J3301 08/04/2015 Vital Signs Date Vital 01/22/2019 Blood Pressure 1: 220/128 Code: 8480-6 Heart Rate 1: 100 bpm SpO2: 98% 10/12/2018 Blood Pressure 1: 110/74 Code: 8480-6 Heart Rate 1: 105 bpm Height: 5'1" SpO2: 95% Weight: 09/13/2018 Blood Pressure 1: 156/86 Code: 8480-6 BMI: 32.3 Code: 69065-9 Heart Rate 1: 90 bpm Height: 5'1" SpO2: 98% Weight: 171 lbs 05/04/2018 Blood Pressure 1: 158/88 Code: 8480-6 BMI: 33.3 Code: 19155-3 Heart Rate 1: 63 bpm Height: 5'1" SpO2: 98% Weight: 176 lbs 01/10/2018 Blood Pressure 1: 138/88 Code: 8480-6 BMI: 31.9 Code: 12382-7 Heart Rate 1: 78 bpm Height: 5'1" SpO2: 99% Weight: 169 lbs 12/06/2017 Blood Pressure 1: 158/98 Code: 8480-6 BMI: 32.3 Code: 75956-0 Heart Rate 1: 60 bpm Height: 5'1" SpO2: 100% Weight: 171 lbs 06/22/2017 Blood Pressure 1: 168/92 Code: 8480-6 BMI: 32.6 Code: 78328-4 Heart Rate 1: 133 bpm Height: 5'1" SpO2: 97% Temperature: 37.6 (C ) / 99.7 (F) Weight: 172 lbs 8 oz 03/02/2017 Blood Pressure 1: 168/90 Code: 8480-6 BMI: 35.0 Code: 83291-1 Heart Rate 1: 80 bpm Height: 5'1" SpO2: 94% Weight: 185 lbs 01/24/2017 Blood Pressure 1: 130/68 Code: 8480-6 BMI: 35.3 Code: 67044-7 Heart Rate 1: 66 bpm Height: 5'1" SpO2: 98% Weight: 187 lbs 10/13/2016 Blood Pressure 1: 136/74 Code: 8480-6 BMI: 35.1 Code: 96124-7 Heart Rate 1: 71 bpm Height: 5'1" SpO2: 97% Weight: 186 lbs 08/30/2016 Blood Pressure 1: 128/80 Code: 8480-6 BMI: 35.0 Code: 75810-3 Heart Rate 1: 75 bpm Height: 5'1" SpO2: 96% Weight: 185 lbs 8 oz 07/02/2016 Blood Pressure 1: 140/78 Code: 8480-6 Heart Rate 1: 63 bpm Height: 5'1" SpO2: 98% 06/24/2016 Blood Pressure 1: 148/100 Code: 8480-6 BMI: 34.2 Code: 82942-0 Heart Rate 1: 110 bpm Height: 5'1" SpO2: 94% Weight: 181 lbs 05/04/2016 Blood Pressure 1: 150/90 Code: 8480-6 Blood Pressure 1: 134/82 Code: 8480-6 BMI: 34.6 Code: 58732-4 Heart Rate 1: 74 bpm Height: 5'1" SpO2: 98% Weight: 183 lbs 04/06/2016 Blood Pressure 1: 156/92 Code: 8480-6 Blood Pressure 1: 158/88 Code: 8480-6 BMI: 34.8 Code: 08558-9 Heart Rate 1: 69 bpm Height: 5'1" SpO2: 97% Weight: 184 lbs 03/18/2016 Blood Pressure 1: 148/90 Code: 8480-6 BMI: 35.1 Code: 67671-3 Heart Rate 1: 106 bpm Height: 5'1" SpO2: 94% Weight: 186 lbs 03/11/2016 Blood Pressure 1: 140/90 Code: 8480-6 BMI: 35.1 Code: 08044-3 Heart Rate 1: 103 bpm Height: 5'1" SpO2: 96% Weight: 186 lbs 02/24/2016 Blood Pressure 1: 130/80 Code: 8480-6 BMI: 34.4 Code: 27664-3 Heart Rate 1: 110 bpm Height: 5'1" SpO2: 96% Weight: 182 lbs 12/16/2015 Blood Pressure 1: 144/98 Code: 8480-6 BMI: 33.8 Code: 27727-9 Heart Rate 1: 97 bpm Height: 5'1" SpO2: 98% Weight: 179 lbs 10/30/2015 Blood Pressure 1: 138/88 Code: 8480-6 BMI: 33.6 Code: 59658-9 Heart Rate 1: 88 bpm Height: 5'1" SpO2: 98% Weight: 178 lbs 09/23/2015 Blood Pressure 1: 152/94 Code: 8480-6 BMI: 32.7 Code: 81112-4 Heart Rate 1: 83 bpm Height: 5'1" SpO2: 97% Weight: 173 lbs 09/10/2015 Blood Pressure 1: 136/82 Code: 8480-6 BMI: 32.1 Code: 75038-1 Heart Rate 1: 105 bpm Height: 5'1" SpO2: 97% Weight: 170 lbs 08/12/2015 Blood Pressure 1: 132/70 Code: 8480-6 BMI: 31.2 Code: 23189-0 Heart Rate 1: 88 bpm Height: 5'1" SpO2: 95% Temperature: 36.7 (C ) / 98.0 (F) Weight: 165 lbs 08/04/2015 Blood Pressure 1: 136/80 Code: 8480-6 BMI: 31.0 Code: 63495-3 Heart Rate 1: 110 bpm Height: 5'1" SpO2: 98% Weight: 164 lbs 05/16/2015 Blood Pressure 1: 138/88 Code: 8480-6 BMI: 32.9 Code: 58402-2 Heart Rate 1: 87 bpm Height: 5'1" SpO2: 90% Weight: 174 lbs 05/12/2015 BMI: 31.7 Code: 76363-8 Height: 5'1" Weight: 168 lbs 04/21/2015 Blood Pressure 1: 124/82 Code: 8480-6 BMI: 32.1 Code: 59929-3 Heart Rate 1: 87 bpm Height: 5'1" [...] of the thyroid 12/06/2017 None hypothyroid Quality social sciences lecturer marley 12/06/2017 None hypothyroid Onset and Resolution [...] of the thyroid 08/30/2016 None hypothyroid Quality social sciences lecturer marley 08/30/2016 None hypothyroid Onset and Resolution [...] of the thyroid 05/04/2016 None hypothyroid Quality social sciences lecturer marley 05/04/2016 None hypothyroid Onset and Resolution [...] of the thyroid 04/06/2016 None hypothyroid Quality social sciences lecturer marley 04/06/2016 None hypothyroid Onset and Resolution [...] Alleviating Factors medication 12/16/2015 None hypothyroid Quality social sciences lecturer marley 12/16/2015 None hypothyroid Location at the [...] Encounters Encounter Performer Loca tion Codes Date ([id number]) Miscellaneou s no charge Diagnosis: Essential (primary) hypertension[ICD10: I10] Meghana Maya MD, [facility] CPT-4: 01618 01/22/2019 50336 EST. PATIENT, LEVEL III Diagnosis: Chronic kidney disease, stage 3 (moderate)[ICD10: N18.3] Diagnosis: Essential (primary) hypertension[ICD10: I10] Diagnosis: Encounter for follow-up examination after completed treatment for conditions other than malignant neoplasm[ICD10: Z09] Britney Maya MD, [facility] CPT-4: 01058 10/12/2018 54040 EST. PATIENT, LEVEL III Diagnosis: Hypokalemia[ICD10: E87.6] Diagnosis: Interstitial pulmonary disease, unspecified[ICD10: J84.9] Britney Maya MD, [facility] CPT-4: 89081 09/13/2018 97148 EST. PATIENT, LEVEL IV Diagnosis: Essential (primary) hypertension[ICD10: I10] Diagnosis: Interstitial pulmonary disease, unspecified[ICD10: J84.9] Diagnosis: Chronic kidney disease, stage 3 (moderate)[ICD10: N18.3] Diagnosis: Mixed hyperlipidemia[ICD10: E78.2] Britney Maya MD, [facility] CPT-4: 18821 05/04/2018 85651 EST. PATIENT, LEVEL IV Diagnosis: Essential (primary) hypertension[ICD10: I10] Diagnosis: Interstitial pulmonary disease, unspecified[ICD10: J84.9] Diagnosis: Chronic kidney disease, stage 3 (moderate)[ICD10: N18.3] Diagnosis: Mixed hyperlipidemia[ICD10: E78.2] Britney Maya MD, [facility] CPT-4: 08563 01/10/2018 14534 EST. PATIENT, LEVEL IV Diagnosis: Other specified hypothyroidism[ICD10: E03.8] Diagnosis: Essential (primary) hypertension[ICD10: I10] Britney Maya MD, [facility] CPT-4: 81930 12/06/2017 99715 EST. PATIENT, LEVEL IV Diagnosis: Other malaise[ICD10: R53.81] Diagnosis: Other fatigue[ICD10: R53.83] Britney Maya MD, [facility] CPT-4: 34108 06/22/2017 22029 EST. PATIENT, LEVEL IV Diagnosis: Acute laryngopharyngitis[ICD10: J06.0] Diagnosis: Other acute sinusitis[ICD10: J01.80] Diagnosis: Other allergic rhinitis[ICD10: J30.89] Britney Maya MD, [facility] CPT-4: 57765 03/02/2017 08268 EST. PATIENT, LEVEL IV Diagnosis: Generalized hyperhidrosis[ICD10: R61] Diagnosis: Other acute sinusitis[ICD10: J01.80] Diagnosis: Other fatigue[ICD10: R53.83] Diagnosis: Interstitial pulmonary disease, unspecified[ICD10: J84.9] Britney Maya MD, [facility] CPT-4: 48559 01/24/2017 91079 EST. PATIENT, LEVEL IV Diagnosis: Acute laryngopharyngitis[ICD10: J06.0] Diagnosis: Other acute sinusitis[ICD10: J01.80] Britney Maya MD, [facility] CPT- 4: 36644 10/13/2016 ([id number]) 84030 EST. 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 PATIENT, LEVEL IV Diagnosis: Pain in thoracic spine[ICD10: M54.6] Diagnosis: Pain in left shoulder[ICD10: M25.512] Diagnosis: Zoster without complications[ICD10: B02.9] Britney Maya MD, [facility] CPT-4: 95958 07/02/2016 38864 EST. PATIENT, LEVEL III Diagnosis: Other specified hypothyroidism[ICD10: E03.8] Diagnosis: Menopausal and female climacteric states[ICD10: N95.1] Diagnosis: Essential (primary) hypertension[ICD10: I10] Britney Maya MD, [facility] CPT-4: 78675 06/24/2016 ([id number]) 57720 EST. P ATIENT, LEVEL IV Diagnosis: Essential (primary) hypertension[ICD10: I10] Diagnosis: Atrophy of thyroid (acquired)[ICD10: E03.4] Diagnosis: Pain in left foot[ICD10: M79.672] Meghana Maya MD, [facility] CPT-4: 55744 05/04/2016 ([id number]) 26192 EST. P ATIENT, LEVEL IV Diagnosis: Essential (primary) hypertension[ICD10: I10] Diagnosis: Pain in left leg[ICD10: M79.605] Diagnosis: Pain in left foot[ICD10: M79.672] Diagnosis: Atrophy of thyroid (acquired)[ICD10: E03.4] Meghana Maya MD, [facility] CPT-4: 17980 04/06/2016 ([id number]) 47517 EST. P ATIENT, LEVEL III Diagnosis: Essential (primary) hypertension[ICD10: I10] Diagnosis: Localized edema[ICD10: R60.0] Catie Maya MD, [facility] CPT- 4: 41992 03/18/2016 ([id number]) 48249 EST. P ATIENT, LEVEL III Diagnosis: Essential (primary) hypertension[ICD10: I10] Diagnosis: Pain in left foot[ICD10: M79.672] Catie Maya MD, [facility] CPT- 4: 15663 03/11/2016 ([id number]) 59881 EST. P ATIENT, LEVEL III Diagnosis: Localized edema[ICD10: R60.0] Diagnosis: Essential (primary) hypertension[ICD10: I10] Catie Maya MD, [facility] CPT-4: 76674 02/24/2016 ([id number]) 33340 EST. P ATIENT, LEVEL IV Diagnosis: Hypothyroidism, unspecified[ICD10: E03.9] Diagnosis: Essential (primary) hypertension[ICD10: I10] Meghana Maya MD, C CPT-4: 02252 12/16/2015 ([id number]) 93395 EST. P ATIENT, LEVEL III Diagnosis: Essential (primary) hypertension[ICD10: I10] Diagnosis: Hypothyroidism, unspecified[ICD10: E03.9] Meghana Maya MD, C CPT-4: 30668 10/30/2015 ([id number]) 24348 EST. P ATIENT, LEVEL IV Diagnosis: Diarrhea, unspecified[ICD10: R19.7] Diagnosis: Essential (primary) hypertension[ICD10: I10] Meghana Maya MD, C CPT-4: 59727 09/23/2015 ([id number]) 59155 EST. P ATIENT, LEVEL III Diagnosis: Essential (primary) hypertension[ICD10: I10] Diagnosis: Diarrhea, unspecified[ICD10: R19.7] Meghana Maya MD, [facility] CPT- 4: 72225 09/10/2015 ([id number]) 11356 EST. P ATIENT, LEVEL III Diagnosis: Acute maxillary sinusitis, unspecified[ICD10: J01.00] Diagnosis: Myositis, unspecified[ICD10: M60.9] Meghana Maya MD, [facility] CPT- 4: 39656 08/12/2015 ([id number]) 72213 EST. P ATIENT, LEVEL IV Diagnosis: Essential (primary) hypertension[ICD10: I10] Diagnosis: Pain in left leg[ICD10: M79.605] Diagnosis: Other myositis, multiple sites[ICD10: M60.89] Diagnosis: Hypothyroidism, unspecified[ICD10: E03.9] Meghana Maya MD, C CPT-4: 32678 08/04/2015 56642 EST. PATIENT, LEVEL III Diagnosis: Dyspnea, unspecified[ICD10: R06.00] Diagnosis: Essential (primary) hypertension[ICD10: I10] Meghana Maya MD, [facility] CPT-4: 13304 05/16/2015 ([id number]) 72625 EST. P ATIENT, LEVEL II Diagnosis: Dyspnea, unspecified[ICD10: R06.00] Meghana Maya MD, [facility] CPT- 4: 84237 05/12/2015 ([id number]) [facility] 4 Diagnosis: Essential (primary) hypertension[ICD10: I10] Diagnosis: Impaired fasting glucose[ICD10: R73.01] Diagnosis: Mixed hyperlipidemia[ICD10: E78.2] Diagnosis: Hypothyroidism, unspecified[ICD10: E03.9] Diagnosis: Encounter for screening mammogram for malignant neoplasm of breast[ICD10: Z12.31] Catie Maya MD, [facility] CPT-4: 05002 04/21/2015 Plan of Care Planned Activity Notes C odes Status Date Appointment: Nurse Visit 01/22/2019 Patient Education: Patient Medication Summary Completed 01/22/2019 Appointment: Britney Bower WPtel: [address] [place], [place] [address] (30 min) Complex 10/26/2018 Appointment: Britney Bower WPtel: [address] [place], [place] [address] Nurse Visit 10/17/2018 Visit Plan: Hypertension - [...] to monitor - pt has seen a cash control specialist in the 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 Hospital follow up - This was a follow up appointment from the patient's hospitalization during which time Dr. Maya formulated the assessment and plan for the follow up on this patient's medical condition. 10/12/2018 Appointment: Britney Bower: [facility] (30 min) Complex 10/12/2018 Patient Education: Patient Medication Summary Completed 10/12/2018 Visit Plan: Hypokalemia - will send RX for potassium and monitor labs Interstitial lung disease - pt is to follow up with specialist and notify clinic with any changes in current treatment plan 09/13/2018 Appointment: Britney Bower: [facility] (30 min) Complex 09/13/2018 Patient Education: Patient [...] plan 05/04/2018 Appointment: Britney Bower WPtel: [phone] [facility] (15 min) Moderate 05/04/2018 Patient Education: Patient [...] plan 01/10/2018 Appointment: Britney Bower WPtel: [phone] [facility] (30 min) Complex 01/10/2018 Patient Education: [...] of control. 12/06/2017 Appointment: Britney Bower WPtel: [phone] [facility] (15 min) Moderate 12/06/2017 Patient Education: Patient Medication Summary Completed 12/06/2017 Visit Plan: URI - Pt advised to inc rease fluids, vitamin C. Discussed natural and expected course of this diagnosis and need to alert me if symptoms do not follow expected course, or if any worse. RX sent to patient's pharmacy. 06/22/2017 Appointment: Britney Bower WPtel: [phone] [facility] (15 min) Moderate 06/22/2017 Patient Education: [...] spray. 03/02/2017 [phone] (10 min[facility] Simple 03/02/2017 Patient Education: Patient [...] will complete paperwork for pt to come strip picker - pt is to continue with her specialist at Hyper[facility] - Discussed with Dr. Maya - will increase clonidine to BID - pt is to consider referral to dermatology - notify clinic if symptoms do not improve, if they worsen, or with any other questions or concerns. 01/24/2017 Appointment: Britney Bower WPtel: [address] [place], [place] [phone] (30 min) Complex 01/24/2017 Patient Education: Patient [...] show improvement. 10/13/2016 Appointment: Britney Bower WPtel: [address] [place], [place] [phone] (30 min) Complex 10/13/2016 Patient Education: Patient [...] change in blood pressure readings at home. Sweats/exterminator helper termite use of steroids-check Hgb A1C Peripheral neuropathy-improved with D85-ripsdu Dr Duran for tarsel tunnel syndrome 08/30/2016 Appointment: Catie Shoemaker WPtel: [address] [place], [place] [phone] (15 min) Moderate 08/30/2016 Patient Education: Patient Medication Summary Completed 08/30/2016 Patient Education: Obesity Completed 08/30/2016 Care Plan: %Hba1C LOIN C : 73036-4 Ordered 08/30/2016 Care Plan: Comp Metabolic Ordered [...] contagious. 07/02/2016 App[facility]ment: [phone] [facility] ([facility]) Complex 07/02/2016 Patient [...] control. 06/24/2016 [facility]ment[phone] [facility] (30 min) Complex 06/24/2016 Patient Education: Patient Medication Summary Completed 06/24/2016 Patient Education: Obesity Completed 06/24/2016 Patient Education: Hypertension Completed 06/24/2016 Patient Education: Patient Medication Summary Completed 05/14/2016 Care Plan: SCREENING[facility]AMMOGRAPHYDIGITAL [facility] 18029-3 Pending 05/14/2016 Visit Plan: Hypertension - well [...] painful. 05/04/2016 [phone] (15 min) Moderate 05/04/2016 Patient Education: Patient [...] medication. 04/06/2016 App[facility]ment[phone] (15 min) Moderate 04/06/2016 Patient Education: Patient Medication Summary Completed 04/06/2016 Patient Education: Obesity Completed 04/06/2016 Care Plan: Referral Order SNOMED-CT : [id number] Pending 04/06/2016 Visit Plan: Edema-improved with low [...] acute concerns. 03/18/2016 Appointment: Catie Shoemaker WPtel: [address] [place], [place] [phone] (15 min) Moderate 03/18/2016 Patient Education: Patient [...] xray left foot-recommend she follow up with mold washer at regarding left foot pain/numbness/weakness. Patient has noticed worsening symptoms since decreasing prednisone. 03/11/2016 Appointment: Catie Shoemaker WPtel: [address] [place], [place] [phone] (15 min) Moderate 03/11/2016 Patient Education: Patient Medication Summary Completed 03/11/2016 Patient Education: Obesity Completed 03/11/2016 Appointment: Catie Shoemaker WPtel: [address] [place], [place] [phone] (30 min) Complex 03/09/2016 Visit Plan: Edema [...] amlodipine to 1/2 tab daily. Add beta anju- metoprolol 25mg daily 02/24/2016 Appointment: Catie Shoemaker WPtel: [phone] [place] (15 min) Moderate 02/24/2016 Patient Education: Patient Medication Summary Completed 02/24/2016 Patient Education: Obesity Completed 02/24/2016 Patient Education: Hypertension Completed 02/24/2016 Appointment: Meghana Maya WPtel: [phone] [facility] (15 min) Moderate 02/23/2016 Visit Plan: [...] Meghana Maya WPtel[facility] (15 min) Moderate 12/16/2015 Patient Education: Patient Medication Summary Completed 12/16/2015 Patient Education: Obesity Completed 12/16/2015 Visit Plan: Hypertension - well con trolled [...] min) Complex 10/23/2015 Appointment: Meghana Maya WPtel: [phone] [facility] (15 min) Moderate 10/23/2015 Visit Plan: [...] at home. 09/10/2015 Appointment: [phone] (15 min) Moderate 09/10/2015 Patient Education: Patient [...] min) Complex 07/24/2015 Appointment: Meghana Maya WPtel: [facility] (15 min) Moderate 07/24/2015 Appointment: Lab Draw [...] Completed 04/21/2015 Care Plan: SCREENINGMAMMOGRAPHYDIGITAL LOINC : 52744-0 Ordered 04/21/2015 App[facility]ment: Meghana [phone] [place] ([place] New Patient 04/01/2015 Referral: Sharon [...] SPECIALIZES IN FOOT AND ANKLE DISEASE AT [address] INCREASE THE METOPROLOL TO 1.5 PILLS [...] any changes in the current treatment plan Plan: ([id number]) SCREEN INGMAMMOGRAPHYDIGITAL . Hypertension - [...] blood sugar-check Hgb A1C . Hypertension - wel l controlled - [...] to monitor - pt has seen a cash control specialist in the 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 Hospital follow up - This was a follow up appointment from the patient's hospitalization during which time Dr. Maya formulated the assessment and plan for the follow up on this patient's medical condition. probiotic - cultureTaptera, probiotic pearls, etc - take three times [...] will complete paperwork for pt to come strip picker - pt is to continue with [...] xray left foot-recommend she follow up with mold washer at regarding left foot pain/numbness/weakness. Patient has [...] change in blood pressure readings at home. 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 Hypertension - unc ontrolled - the patient's medications have not been changed due to acute illness causing the blood pressure to be elevated. Pt to continue with current antihypertensives and will monitor her blood pressures at home. Diarrhea - finish flagyl - start probiotic tid.
--- OUTSIDE RECORDS SUMMARY | 2019-08-14 06:21 | XMS REPORT | CCD ---
Author Author Carolann Shoemaker Organization Meghana Maya MD, [facility] Address [facility] [place] [address] Phone Care Team Providers Care Data Mining Analyst Name Role Phone PP Unavailable CCM Unavailable Summary Purpose Interface Exchange Family history Mother Diagnosis Age At Onset Hypertension Unknown Breast cancer Unknown Osteoporosis Unknown Father Diagnosis Age At Onset kidney disease Unknown Cancer Unknown Hyperlipidemia Unknown Social History Social History Element Codes Description Effective Dates Marital status Unknown D ivorced 04/21/2015 Number of children Unknown 1 04/21/2015 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/[address]: 546921996 Never smoker 04/21/2015 Alcohol history Unknown occasionally drinks alcohol 04/21/2015 Allergies, Adverse Reactions, Alerts Substance Reaction Codes Entered Date Inactivated Date Status [id number] REDU CTASE INHIBITORS myalgias Unknown 016 No Inactive Date Active Past Medical History Illness Codes Condition Status Onset Date Resolved Date Chronic kidney disea se, stage 3 (moderate) ICD-9: 585.3 ICD-10: N18.3 Active 10/12/2018 Unknown Encounter for follow -up examination after completed treatment for conditions other than malignant neoplasm ICD-9: V67.9 ICD-10: Z09 Active 10/12/2018 Unknown Essential (primary) hypertension ICD-9: 401.1 ICD-10: I10 Active 08/30/2016 Unknown Hypokalemia ICD-9: 276.8 ICD-10: E87.6 Active [...] Condition Codes Effectiv e Dates Condition Status Chronic kidney disea se, stage 3 (moderate) ICD-9: 585.3 ICD-10: N18.3 10/12/2018 Active Encounter for follow -up examination after completed treatment for conditions other than malignant neoplasm ICD-9: V67.9 ICD-10: Z09 10/12/2018 Active Essential (primary) hypertension ICD-9: 401.1 ICD-10: I10 08/30/2016 Active Hypokalemia ICD-9: 276.8 ICD-10: E87.6 09/13/2018 [...] Date Stop Date Sta tus Fill Instructions Lipitor 20 mg tablet RxNorm: 496356 TAKE ONE TABLET BY MOUTH DAILY 12/04/2018 06/01/2019 Ac tive venlafaxine ER 150 m g capsule,extended release 24 hr RxNorm: 039194 TAKE ONE CAPSULE BY MOUTH DAILY 12/04/2018 06/01/2019 Active metoprolol succinate ER 50 mg tablet,extended release 24 hr RxNorm: 278650 1 Tablet(s) PO daily 10/17/2018 10/11/2019 Active nystatin 100,000 uni t/mL oral suspension RxNorm: 738367 4 Unit(s) PO QID 10/17/2018 10/23/2018 In active nystatin 100,000 uni t/mL oral suspension RxNorm: 679244 4 Unit(s) PO QID 10/17/2018 10/16/2018 In active potassium chloride E R 10 mEq tablet,extended release RxNorm: 151662 Tablet(s) TAKE ONE TABLET BY MOUTH DAILY 09/15/2018 03/13/2019 Active candesartan 4 mg tablet RxNorm: 588266 1 Tablet(s) PO daily 09/15/2018 10/14/2018 Inactive clonidine HCl 0.1 mg tablet RxNorm: 627562 TAKE ONE TABLET BY [facility] TWICE A DAY 09/14/2018 02/10/2019 Ac tive losartan 25 mg tablet RxNorm: 203290 TAKE ONE TABLET BY MOUTH DAILY 09/14/2018 11/12/2018 In active clonidine HCl 0.1 mg tablet RxNorm: 204743 Tablet(s) TAKE ONE TA BLET BY MOUTH AT BEDTIME 09/13/2018 No Stop Date Active venlafaxine ER 150 m g capsule,extended release 24 hr RxNorm: 383034 TAKE ONE CAPSULE BY MOUTH DAILY 05/15/2018 11/10/2018 Inactive Lipitor 20 mg tablet RxNorm: 008551 TAKE ONE TABLET BY MOUTH DAILY 05/15/2018 11/10/2018 In active losartan 25 mg tablet RxNorm: 300198 TAKE ONE TABLET BY MOUTH DAILY 04/17/2018 07/14/2018 In active losartan 25 mg tablet RxNorm: 129346 TAKE ONE TABLET BY MOUTH DAILY 04/17/2018 04/16/2018 In active Lipitor 20 mg tablet RxNorm: 136330 1 Tablet(s) PO daily 01/12/2018 01/11/2018 Inactive Lipitor 20 mg tablet RxNorm: 990662 1 Tablet(s) PO daily 01/12/2018 05/11/2018 Inactive clonidine HCl 0.1 mg tablet RxNorm: 919103 TAKE ONE TABLET BY [facility] TWICE A DAY 01/04/2018 07/02/2018 In active potassium chloride E R 10 mEq tablet,extended release RxNorm: 492325 TAKE ONE TABLET BY MOUTH DAILY 01/04/2018 09/12/2018 Inactive losartan 25 mg tablet RxNorm: 827951 TAKE ONE TABLET BY MOUTH DAILY 01/03/2018 04/02/2018 In active levothyroxine 50 mcg tablet RxNorm: 893313 1 Tablet(s) PO daily 12/08/2017 09/12/2018 Inactive losartan 25 mg tablet RxNorm: 286821 1 Tablet(s) PO daily 12/06/2017 01/02/2018 Inactive venlafaxine ER 150 m g capsule,extended release 24 hr RxNorm: 661714 TAKE ONE CAPSULE BY MOUTH DAILY 12/06/2017 05/04/2018 Inactive metoprolol succinate ER 50 mg tablet,extended release 24 hr RxNorm: 216156 TAKE ONE TABLET BY MOUTH DAILY 08/29/2017 01/25/2018 Inactive metoprolol succinate ER 50 mg tablet,extended release 24 hr RxNorm: 486153 TAKE ONE TABLET BY MOUTH DAILY 08/29/2017 08/28/2017 Inactive metoprolol succinate ER 50 mg tablet,extended release 24 hr RxNorm: 909813 TAKE ONE TABLET BY MOUTH DAILY 08/29/2017 08/28/2017 Inactive Tamiflu 75 mg capsule RxNorm: 182736 1 Capsule(s) PO BID 06/22/2017 06/26/2017 Inactive Kenalog 40 mg/mL jenna pension for injection RxNorm: 6700065 1.5 Milliliter(s) In j 06/22/2017 06/22/2017 In active clonidine HCl 0.1 mg tablet RxNorm: 107145 TAKE ONE TABLET BY [facility] TWICE A DAY 06/06/2017 12/02/2017 In active potassium chloride E R 10 mEq tablet,extended release RxNorm: 932534 TAKE ONE TABLET BY MOUTH DAILY 06/06/2017 12/02/2017 Inactive venlafaxine ER 150 m g capsule,extended release 24 hr RxNorm: 563213 TAKE ONE CAPSULE BY MOUTH DAILY 05/23/2017 11/18/2017 Inactive Zithromax 500 mg tablet RxNorm: 498072 1 Tablet(s) PO daily 05/18/2017 05/22/2017 Inactive potassium chloride E R 10 mEq tablet,extended release RxNorm: 884798 TAKE ONE TABLET BY MOUTH DAILY 04/21/2017 05/20/2017 Inactive potassium chloride E R 10 mEq tablet,extended release RxNorm: 940411 TAKE ONE TABLET BY MOUTH DAILY 03/16/2017 04/14/2017 Inactive Zithromax Z-Jacek 250 mg tablet RxNorm: 274765 1 Tablet(s) PO UD 03/02/2017 06/21/2017 Inactive venlafaxine ER 150 m g capsule,extended release 24 hr RxNorm: 935476 Capsule(s) TAKE ONE CAPSULE BY MOUTH DAILY 02/17/2017 02/16/2017 Inactive venlafaxine ER 150 m g capsule,extended release 24 hr RxNorm: 182228 TAKE ONE CAPSULE BY MOUTH DAILY 02/17/2017 05/14/2018 Inactive clonidine HCl 0.1 mg tablet RxNorm: 040779 TAKE ONE TABLET BY [facility] EVERY NIGHT AT BEDTIME 02/14/2017 01/03/2018 Inactive metoprolol succinate ER 50 mg tablet,extended release 24 hr RxNorm: 410958 TAKE ONE TABLET BY MOUTH DAILY 02/14/2017 08/12/2017 Inactive Protonix 40 mg table t,delayed release RxNorm: 422748 TAKE ONE TABLET BY [facility] DAILY WHILE ON PREDNISONE 01/25/2017 09/12/2018 Inactive Zithromax Z-Jacek 250 mg tablet RxNorm: 716844 1 Tablet(s) PO UD 01/24/2017 01/03/2018 Inactive potassium chloride E R 10 mEq tablet,extended release RxNorm: 776923 TAKE ONE TABLET BY MOUTH DAILY 01/17/2017 03/15/2017 Inactive clonidine HCl 0.1 mg tablet RxNorm: 621967 TAKE ONE TABLET BY [facility] EVERY NIGHT AT BEDTIME 01/17/2017 02/13/2017 Inactive potassium chloride E R 10 mEq tablet,extended release RxNorm: 310160 TAKE ONE TABLET BY MOUTH DAILY 12/16/2016 01/14/2017 Inactive venlafaxine ER 150 m g capsule,extended release 24 hr RxNorm: 685901 TAKE ONE CAPSULE BY MOUTH DAILY 11/18/2016 02/15/2017 Inactive clonidine HCl 0.1 mg tablet RxNorm: 304317 TAKE ONE TABLET BY [facility] EVERY NIGHT AT BEDTIME 11/08/2016 01/06/2017 Inactive clonidine HCl 0.1 mg tablet RxNorm: 055123 1 Tablet(s) BID 10/19/2016 01/16/2017 Inactive potassium chloride E R 10 mEq tablet,extended release RxNorm: 197831 TAKE ONE TABLET BY MOUTH DAILY 10/15/2016 11/13/2016 Inactive Zithromax Z-Jacek 250 mg tablet RxNorm: 430300 1 Tablet(s) PO UD 10/13/2016 01/03/2018 Inactive potassium chloride E R 10 mEq tablet,extended release RxNorm: 899077 TAKE ONE TABLET BY MOUTH DAILY 10/12/2016 10/14/2016 Inactive potassium chloride E R 10 mEq tablet,extended release RxNorm: 762835 Tablet(s) BID TAKE ONE TABLET BY MOUTH TWICE DAILY 09/17/2016 10/11/2016 Inactive potassium chloride E R 10 mEq tablet,extended release RxNorm: 284316 TAKE ONE TABLET BY MOUTH DAILY 09/13/2016 09/16/2016 Inactive clonidine HCl 0.1 mg tablet RxNorm: 565005 Tablet(s) TAKE ONE TA BLET BY MOUTH EVERY NIGHT AT BEDTIME 08/12/2016 10/18/2016 Inactive gabapentin 300 mg ca psule RxNorm: 502103 1 Capsule(s) PO Q 08/10/2016 No Stop Date Active venlafaxine ER 150 m g capsule,extended release 24 hr RxNorm: 303213 TAKE ONE CAPSULE BY MOUTH DAILY 08/09/2016 11/06/2016 Inactive metoprolol succinate ER 50 mg tablet,extended release 24 hr RxNorm: 974798 TAKE ONE TABLET BY MOUTH DAILY 07/29/2016 01/24/2017 Inactive clonidine HCl 0.1 mg tablet RxNorm: 129275 TAKE ONE TABLET BY [facility] EVERY NIGHT AT BEDTIME 07/21/2016 08/11/2016 Inactive potassium chloride E R 10 mEq tablet,extended release RxNorm: 825307 TAKE ONE TABLET BY MOUTH DAILY 07/14/2016 09/11/2016 Inactive Prescriber not associated w ith this practice or location acyclovir 400 mg tablet RxNorm: 699861 2 Tablet(s) PO QID 07/02/2016 07/11/2016 Inactive cyclobenzaprine 5 mg tablet RxNorm: 407905 1-2 Tablet(s) PO TID as needed 07/02/2016 07/06/2016 In active capsaicin 0.1 % topi reagan cream RxNorm: 213553 1 Application TOP TID as needed 07/02/2016 09/12/2018 In active Protonix 40 mg table t,delayed release RxNorm: 953072 TAKE ONE TABLET BY [facility] DAILY WHILE ON PREDNISONE 06/29/2016 12/25/2016 Inactive clonidine HCl 0.1 mg tablet RxNorm: 032392 1 Tablet(s) PO QHS 06/25/2016 07/20/2016 Inactive calcium carbonate 50 0 mg calcium (1,250 mg) tablet RxNorm: 866030 TAKE ONE TABLET BY MOUTH DAILY WHILE ON PREDNISONE. MAY STOP TAKING WHEN PREDNISONE IS COMPLETE 06/01/2016 09/12/2018 In active Vitamin D3 1,000 uni t tablet RxNorm: 404036 1 Tablet(s) PO daily . May stop taking once prednisone is complete. 04/26/2016 09/12/2018 Inactive metoprolol succinate ER 50 mg tablet,extended release 24 hr RxNorm: 834540 1.5 Tablet(s) PO daily 04/06/2016 06/23/2016 Inactive prednisone 10 mg tablet RxNorm: 929453 1 Tablet(s) PO daily 04/02/2016 06/21/2017 Inactive metoprolol succinate ER 50 mg tablet,extended release 24 hr RxNorm: 921960 1 Tablet(s) PO daily 03/18/2016 04/05/2016 Inactive amlodipine 10 mg tablet RxNorm: 265438 1/2 Tablet(s) PO daily 02/24/2016 06/21/2016 Inactive metoprolol succinate ER 25 mg tablet,extended release 24 hr RxNorm: 621160 1 Tablet(s) PO daily 02/24/2016 03/16/2016 Inactive calcium carbonate 50 0 mg calcium (1,250 mg) tablet RxNorm: 234538 TAKE ONE TABLET BY MOUTH DAILY WHILE ON PREDNISONE. MAY STOP TAKING WHEN PREDNISONE IS COMPLETE 02/16/2016 05/15/2016 In active Protonix 40 mg table t,delayed release RxNorm: 439467 TAKE ONE TABLET BY [facility] DAILY WHILE ON PREDNISONE 02/10/2016 05/09/2016 Inactive venlafaxine ER 150 m g capsule,extended release 24 hr RxNorm: 598655 Capsule(s) TAKE ONE CAPSULE BY MOUTH DAILY 12/10/2015 04/07/2016 Inactive calcium carbonate 50 0 mg calcium (1,250 mg) tablet RxNorm: 247800 1 Tablet(s) PO daily 12/01/2015 01/29/2016 Inactive Vitamin D3 1,000 uni t tablet RxNorm: 485670 1 Tablet(s) PO daily 12/01/2015 03/29/2016 Inactive levothyroxine 50 mcg tablet RxNorm: 809732 1 Tablet(s) PO daily 12/01/2015 11/24/2016 Inactive amlodipine 10 mg tablet RxNorm: 598385 1 Tablet(s) PO daily 11/19/2015 11/18/2015 Inactive amlodipine 10 mg tablet RxNorm: 777197 1 Tablet(s) PO daily 11/19/2015 02/23/2016 Inactive amlodipine 5 mg tablet RxNorm: 077042 1 Tablet(s) PO daily 11/17/2015 11/18/2015 Inactive venlafaxine ER 150 m g capsule,extended release 24 hr RxNorm: 143981 TAKE ONE CAPSULE BY MOUTH DAILY 11/13/2015 12/09/2015 Inactive Protonix 40 mg table t,delayed release RxNorm: 570556 1 Tablet(s) PO daily while on prednisone 2015 02/09/2016 Inactive prednisone 10 mg tablet RxNorm: 014765 2 Tablet(s) PO UD 10/30/2015 04/01/2016 Inactive 60mg for 2 days, then 50mg for 2 days, then 40mg for 2 days, then 30mg for 2 days, then 20mg for 2 days, then 10mg for 2 days, then 5mg for 2 days potassium chloride E R 10 mEq tablet,extended release RxNorm: 274435 TAKE ONE TABLET BY MOUTH DAILY 09/22/2015 12/19/2015 Inactive venlafaxine ER 150 m g capsule,extended release 24 hr RxNorm: 342488 TAKE ONE CAPSULE BY MOUTH DAILY 09/08/2015 11/06/2015 Inactive cefdinir 300 mg capsule RxNorm: 131046 1 Capsule(s) PO BID 08/20/2015 08/22/2015 Inactive cefdinir 300 mg capsule RxNorm: 313396 1 Capsule(s) PO BID 08/12/2015 08/18/2015 Inactive Kenalog 40 mg/mL jenna pension for injection RxNorm: 4438675 1 Milliliter(s) Inj 08/04/2015 08/04/2015 In active triamterene 37.5 mg- hydrochlorothiazide 25 mg tablet RxNorm: 917571 1 Tablet(s) PO BID 06/17/2015 08/03/2015 Inactive potassium chloride E R 10 mEq tablet,extended release RxNorm: 881524 1 Tablet(s) PO daily 05/30/2015 08/03/2015 Inactive Levaquin 250 mg tablet RxNorm: 332012 Tablet(s) PO UD 500 mg day one, then 250 mg day 2-7 05/27/2015 08/03/2015 Inactive prednisone 10 mg tablet RxNorm: 422418 Tablet(s) PO UD 05/27/2015 10/29/2015 Inactive 60mg for 2 days, then 50mg for 2 days, then 40mg for 2 days, then 30mg for 2 days, then 20mg for 2 days, then 10mg for 2 days, then 5mg for 2 days albuterol sulfate 1. 25 mg/3 mL solution for nebulization RxNorm: 449351 3 Milliliter(s) INH Q4-6H as needed dyspnea 05/23/2015 09/12/2018 Inactive Zithromax 500 mg tablet RxNorm: 730022 1 Tablet(s) PO daily 05/16/2015 05/15/2015 Inactive Zithromax 500 mg tablet RxNorm: 174019 1 Tablet(s) PO daily 05/16/2015 05/20/2015 Inactive prednisone 20 mg tablet RxNorm: 060903 3 Tablet(s) PO daily 05/12/2015 05/16/2015 Inactive venlafaxine ER 150 m g capsule,extended release 24 hr RxNorm: 817077 TAKE ONE CAPSULE BY MOUTH DAILY 05/12/2015 08/09/2015 Inactive Keflex 500 mg capsule RxNorm: 678416 1 Capsule(s) PO TID 05/12/2015 05/18/2015 Inactive simvastatin 20 mg ta blet RxNorm: 208014 1 Tablet(s) PO daily 04/10/2015 04/09/2015 Inactive simvastatin 20 mg ta blet RxNorm: 020176 1 Tablet(s) PO daily 04/10/2015 08/11/2015 Inactive venlafaxine ER 150 m g capsule,extended release 24 hr RxNorm: 284831 TAKE ONE CAPSULE BY MOUTH DAILY 04/08/2015 05/07/2015 Inactive amlodipine 5 mg tablet RxNorm: 426936 1 Tablet(s) PO daily 03/07/2015 03/06/2015 Inactive amlodipine 5 mg tablet RxNorm: 420987 1 Tablet(s) PO daily 03/07/2015 07/04/2015 Inactive venlafaxine ER 150 m g capsule,extended release 24 hr RxNorm: 380891 1 Capsule(s) PO daily 01/29/2015 03/29/2015 Inactive Co Q-10 oral RxNorm: 36052 oral No Start Date Active gabapentin 100 mg ca psule RxNorm: 591432 1 Capsule(s) PO QAM No Start Date Active albuterol sulfate 1. 25 mg/3 mL solution for nebulization RxNorm: 068730 3 Milliliter(s) INH Q4-6H as needed dyspnea No Start Date 05/22/2015 Inactive levothyroxine 50 mcg tablet RxNorm: 203978 1 Tablet(s) PO daily No Start Date 11/30/2015 Inactive metoprolol succinate ER 50 mg tablet,extended release 24 hr RxNorm: 108940 1 Tablet(s) PO daily No Start Date 09/12/2018 Inactive gabapentin 300 mg ca psule RxNorm: 902099 1 Capsule(s) PO QHS No Start Date 08/09/2016 Inactive vitamin B complex oral RxNorm: 18933 oral No Start Date 09/12/2018 Inactive Vitamin D3 1,000 uni t tablet RxNorm: 176927 1 Tablet(s) PO daily No Start Date 11/30/2015 Inactive Protonix 40 mg table t,delayed release RxNorm: 522045 1 Tablet(s) PO daily while on prednisone No Start Date 10/30/2015 Inactive calcium carbonate oral RxNorm: oral No Start Date 11/30/2015 Inactive potassium chloride E R 10 mEq tablet,extended release RxNorm: 534422 1 Tablet(s) PO daily No Start Date 05/29/2015 Inactive Levaquin 250 mg tablet RxNorm: 465895 Tablet(s) PO UD 500 mg day one, then 250 mg day 2-7 No Start Date 05/26/2015 Inactive triamterene 37.5 mg- hydrochlorothiazide 25 mg tablet RxNorm: 078156 1 Tablet(s) PO BID No Start Date 06/16/2015 Inactive prednisone 10 mg tablet RxNorm: 553121 Tablet(s) PO UD No Start Date 05/26/2015 Inactive 60mg for 2 days, then 50mg for 2 days, then 40mg for 2 days, then 30mg for 2 days, then 20mg for 2 days, then 10mg for 2 days, then 5mg for 2 days venlafaxine ER 150 m g capsule,extended release 24 hr RxNorm: 174618 1 Capsule(s) PO daily No Start Date 01/28/2015 Inactive Medication Administered Medication Codes Instruc tions Start Date Status Kenalog 40 mg/mL suspension for injection RxNorm: 5234235 1.5Milliliter 06/22/2017 No longer Active Kenalog 40 mg/mL suspension for injection RxNorm: 5236187 1Milliliter 08/04/2015 N o longer Active Immunizations No Immunization data Assessments Condition Codes Effectiv e Dates Encounter for follow-up examination afte r completed treatment for conditions other than malignant neoplasm ICD-10: Z09 ICD-9: V67.9 10/12/2018 Essential (primary) hypertension ICD -10: I10 ICD-9: 401.1 10/12/2018 Chronic kidney disease, stage 3 (moderate) [...] Visit Reason For Visit Effective Dates Notes Hospital Follow Up 10/12/2018 abnormal test results [...] Item Item Code Result Date Comp Metabolic Drt503 NA 142 mEq/L 10/12/2018 Comp Metabolic Wte034 K 4.0 mEq/L 10/12/2018 Comp Metabolic Huf095 CL 105 mEq/L 10/12/2018 Comp Metabolic Jpx549 CO2 21.0 mEq/L 10/12/2018 Comp Metabolic Poy263 AN ION GAP 20 10/12/2018 Comp Metabolic Gkw292 GL UCOSE 105 mg/dL 10/12/2018 Comp Metabolic Ofo267 Cr eat 1.8 mg/dL 10/12/2018 Comp Metabolic Gat286 eG FR 30 ml/min/1.73m2 10/12 Comp Metabolic Bfh799 BUN 19 mg/dL 10/12/2018 Comp Metabolic Dus739 B/ C Ratio 10.5 Ratio 10/12/2018 Comp Metabolic Fsr093 CA LCIUM 9.0 mg/dL 10/12/2018 Comp Metabolic Lqt344 AL K PHOS 74 U/L 10/12/2018 Comp Metabolic Tdh108 T(SGOT) 21 U/L 10/12/2018 Comp Metabolic Ecd068 AL T(SGPT) 22 U/L 10/12/2018 Comp Metabolic Quk776 BI LI T 0.4 mg/dL 10/12/2018 Comp Metabolic Xcg003 AL BUMIN 3.9 g/dL 10/12/2018 Comp Metabolic Obf538 TP RO 6.1 g/dL 10/12/2018 Comp Metabolic Kls485 GL OB 2.2 g/dL 10/12/2018 Comp Metabolic Bgq462 A/ G Ratio 1.7 Ratio 10/12/2018 Comp Metabolic Ruj276 Os mo 286 mOsmo 10/12/2018 Cbc With [...] 28.0 pg 10/12/2018 Cbc With Differential Ord2 Love% 16.6 % 10/12/2018 Cbc With Differential Ord2 [...] 1.77 K/ul 10/12/2018 Cbc With Differential Ord2 Love ABS# 2.4 K/ul 10/12/2018 Cbc With Differential Ord2 Eos ABS# 0.0 K/ul 10/12/2018 Cbc With Differential Ord2 Baso ABS# 0.0 K/ul 10/12/2018 Electrolytes Ord62 NA 140 mEq/L 09/15/2018 Electrolytes Ord62 K 4.2 mEq/L 09/15/2018 Electrolytes Ord62 CL 111 mEq/L 09/15/2018 Electrolytes Ord62 CO2 20.0 mEq/L 09/15/2018 Electrolytes Ord62 ANION GAP 13 09/15/2018 Comp Metabolic Ewt081 NA 140 mEq/L 01/10/2018 Comp Metabolic Euc845 K 3.8 mEq/L 01/10/2018 Comp Metabolic Hvc740 CL 106 mEq/L 01/10/2018 Comp Metabolic Iuc884 CO2 25.0 mEq/L 01/10/2018 Comp Metabolic Olx474 AN ION GAP 13 01/10/2018 Comp Metabolic Ifz968 GL UCOSE 110 mg/dL 01/10/2018 Comp Metabolic Qss134 Cr eat 1.5 mg/dL 01/10/2018 Comp Metabolic Syz380 eG FR 37 ml/min/1.73m2 01/10 Comp Metabolic Hoc090 BUN 23 mg/dL 01/10/2018 Comp Metabolic Ytm770 B/ C Ratio 15.3 Ratio 01/10/2018 Comp Metabolic Sdo308 CA LCIUM 9.2 mg/dL 01/10/2018 Comp Metabolic Msg310 AL K PHOS 87 U/L 01/10/2018 Comp Metabolic Mow211 T(SGOT) 15 U/L 01/10/2018 Comp Metabolic Bpc916 AL T(SGPT) 9 U/L 01/10/2018 Comp Metabolic Viz605 BI LI T 0.4 mg/dL 01/10/2018 Comp Metabolic Wou190 AL BUMIN 3.8 g/dL 01/10/2018 Comp Metabolic Cuu369 TP RO 6.2 g/dL 01/10/2018 Comp Metabolic Ucy567 GL OB 2.4 g/dL 01/10/2018 Comp Metabolic Mcu380 A/ G Ratio 1.6 Ratio 01/10/2018 Comp Metabolic Uar648 Os mo 284 mOsmo 01/10/2018 C-Reactive Protein [...] 27.6 pg 01/10/2018 Cbc With Differential Ord2 Love% 15.2 % 01/10/2018 Cbc With Differential Ord2 [...] 1.47 K/ul 01/10/2018 Cbc With Differential Ord2 Love ABS# 1.0 K/ul 01/10/2018 Cbc With Differential Ord2 Eos ABS# 0.1 K/ul 01/10/2018 Cbc With Differential Ord2 Baso ABS# 0.0 K/ul 01/10/2018 Sed Rate Ord21 ESR 12 mm/hr 01/10/2018 Free T4 Qmj320 FREE T4 0.57 ng/dL 12/06/2017 Tsh Ord6 TSH (3rd IS) 7.40 uIU/mL 12/06/2017 C A/B FLU [id number] Influe nza A Scr Negative 06/22/2017 C A/B FLU 1497719 Influe nza B Scr Negative 06/22/2017 C A/B FLU 2554630 Influe nza Intrp B AG:PRID:PT:NOSE:NOM:IF See Footnote 06/22/2017 Comp Metabolic Hda506 NA 140 mEq/L 08/30/2016 Comp Metabolic Wec389 K 3.3 mEq/L 08/30/2016 Comp Metabolic Kki374 CL 104 mEq/L 08/30/2016 Comp Metabolic Ecq806 CO2 26.0 mEq/L 08/30/2016 Comp Metabolic Nth101 AN ION GAP 13 08/30/2016 Comp Metabolic Juh263 GL UCOSE 143 mg/dL 08/30/2016 Comp Metabolic Ncf492 Cr eat 1.3 mg/dL 08/30/2016 Comp Metabolic Fdy045 eG FR 43 ml/min/1.73m2 08/30 Comp Metabolic Wkh734 BUN 19 mg/dL 08/30/2016 Comp Metabolic Giv658 B/ C Ratio 14.3 Ratio 08/30/2016 Comp Metabolic Nem364 CA LCIUM 10.0 mg/dL 08/30/2016 Comp Metabolic Prx690 AL K PHOS 67 U/L 08/30/2016 Comp Metabolic Vwd382 T(SGOT) 28 U/L 08/30/2016 Comp Metabolic Ypc943 AL T(SGPT) 43 U/L 08/30/2016 Comp Metabolic Ytb627 BI LI T 0.4 mg/dL 08/30/2016 Comp Metabolic Kwj334 AL BUMIN 4.0 g/dL 08/30/2016 Comp Metabolic Fvy525 TP RO 6.2 g/dL 08/30/2016 Comp Metabolic Sed857 GL OB 2.2 g/dL 08/30/2016 Comp Metabolic Gdv101 A/ G Ratio 1.8 Ratio 08/30/2016 Comp Metabolic Xls537 Os mo 284 mOsmo 08/30/2016 %Hba1C Fcw229 % HbA1c 56669-2 6.1 % 08/30/2016 %Hba1C Dwh565 Gluc Ave 128 mg/dL 08/30/2016 Free T4 Blk068 FREE T4 0.75 ng/dL 06/25/2016 Tsh Ord6 [...] Ord90 Mag 2.1 mg/dL 12/16/2015 Free T4 Rbn956 FREE T4 0.92 ng/dL 12/16/2015 Tsh Ord6 [...] 28.5 pg 08/04/2015 Cbc With Differential Ord2 Love% 6.1 % 08/04/2015 Cbc With Differential Ord2 [...] 0.73 K/ul 08/04/2015 Cbc With Differential Ord2 Love ABS# 0.5 K/ul 08/04/2015 Cbc With Differential Ord2 Eos ABS# 0.1 K/ul 08/04/2015 Cbc With Differential Ord2 Baso ABS# 0.0 K/ul 08/04/2015 Cbc With Differential Ord2 New Analyzer Notice Please note new ref ranges s tarting 07-09-2015 due to implemntation of new five part differential hematolgy analyzer. 08/04/2015 C-Reactive Protein Qnt Crqnt CRP 0.8 mg/dl 08/04/2015 Comp Metabolic Gqq736 NA 139 mEq/L 08/04/2015 Comp Metabolic Keg052 K 3.4 mEq/L 08/04/2015 Comp Metabolic Jgx751 CL 109 mEq/L 08/04/2015 Comp Metabolic Fqf844 CO2 22.0 mEq/L 08/04/2015 Comp Metabolic Anm535 AN ION GAP 11 08/04/2015 Comp Metabolic Wls654 GL UCOSE 177 mg/dL 08/04/2015 Comp Metabolic Dke535 Cr eat 1.0 mg/dL 08/04/2015 Comp Metabolic Rak702 eG FR 64 ml/min/1.73m2 08/04 Comp Metabolic Fkp589 BUN 35 mg/dL 08/04/2015 Comp Metabolic Lsx247 B/ C Ratio 36.8 Ratio 08/04/2015 Comp Metabolic Kxb962 CA LCIUM 8.5 mg/dL 08/04/2015 Comp Metabolic Vlg624 AL K PHOS 57 U/L 08/04/2015 Comp Metabolic Azc243 T(SGOT) 21 U/L 08/04/2015 Comp Metabolic Zxu208 AL T(SGPT) 63 U/L 08/04/2015 Comp Metabolic Kyz672 BI LI T 0.3 mg/dL 08/04/2015 Comp Metabolic Kwz876 AL BUMIN 3.1 g/dL 08/04/2015 Comp Metabolic Poq441 TP RO 5.1 g/dL 08/04/2015 Comp Metabolic Zox518 GL OB 2.0 g/dL 08/04/2015 Comp Metabolic Jdd351 A/ G Ratio 1.6 Ratio 08/04/2015 Comp Metabolic Lkt061 Os mo 290 mOsmo 08/04/2015 Cpk Ord61 CPK 52 U/L 08/04/2015 Random Urine Protein/Creatinine Ratio Bkx3936 U Prot 8.5 mg/dl 05/27/2015 Random Urine Protein/Creatinine Ratio Njt3928 U CREAT 201.0 mg/dL 05/27/2015 Random Urine Protein/Creatinine Ratio Fom7655 R MTP/Creat Ratio 0.04 05/27/2015 Urinalysis Ord28 [...] hours from collection if refrigerated) 05/27/2015 Renal Gvo194 NA 136 mEq/L 05/26/2015 Renal Icu276 K 3.3 mEq/L 05/26/2015 Renal Dzz988 CL 99 mEq/L 05/26/2015 Renal Jni336 CO2 25.0 mEq/L 05/26/2015 Renal Fnf317 ANION GAP 15 05/26/2015 Renal Hcv419 Osmo 274 mOsmo 05/26/2015 Renal Hum696 GLUCOSE 106 mg/dL 05/26/2015 Renal Cck456 BUN 17 mg/dL 05/26/2015 Renal Tdy111 Creat 1.4 mg/dL 05/26/2015 Renal Mst998 eGFR 40 ml/min/1.73m2 05/26/2015 Renal Wqx465 B/C Ratio 12.0 Ratio 05/26/2015 Renal Zuj104 CALCIUM 9.3 mg/dL 05/26/2015 Renal Ugc291 PHOS 3.4 mg/dL 05/26/2015 Renal Jjl522 ALBUMIN 3.4 g/dL 05/26/2015 Cbc With Differential [...] Ord2 RDW 14.3 % 04/21/2015 Free T4 Pfu150 FREE T4 0.91 ng/dL 04/21/2015 %Hba1C Eqs954 % HbA1c 01121-6 5.8 % 04/21/2015 %Hba1C Adw662 Gluc Ave 120 mg/dL 04/21/2015 Comp Metabolic Cor148 NA 137 mEq/L 04/21/2015 Comp Metabolic Cus694 K 3.6 mEq/L 04/21/2015 Comp Metabolic Xrp492 CL 98 mEq/L 04/21/2015 Comp Metabolic Knd518 CO2 25.0 mEq/L 04/21/2015 Comp Metabolic Wgg957 AN ION GAP 18 04/21/2015 Comp Metabolic Voo729 GL UCOSE 83 mg/dL 04/21/2015 Comp Metabolic Ndc683 Cr eat 1.6 mg/dL 04/21/2015 Comp Metabolic Sus358 eG FR 36 ml/min/1.73m2 04/21 Comp Metabolic Ppm662 BUN 28 mg/dL 04/21/2015 Comp Metabolic Uyx710 B/ C Ratio 17.9 Ratio 04/21/2015 Comp Metabolic Pnh630 CA LCIUM 9.5 mg/dL 04/21/2015 Comp Metabolic Olh518 AL K PHOS 60 U/L 04/21/2015 Comp Metabolic Vko040 T(SGOT) 22 U/L 04/21/2015 Comp Metabolic Vpg407 AL T(SGPT) 10 U/L 04/21/2015 Comp Metabolic Gpx760 BI LI T 0.4 mg/dL 04/21/2015 Comp Metabolic Bot693 AL BUMIN 4.0 g/dL 04/21/2015 Comp Metabolic Yrk284 TP RO 6.8 g/dL 04/21/2015 Comp Metabolic Dei221 GL OB 2.8 g/dL 04/21/2015 Comp Metabolic Wtp729 A/ G Ratio 1.4 Ratio 04/21/2015 Comp Metabolic Qsk138 Os mo 278 mOsmo 04/21/2015 Tsh Ord6 [...] Respiratory dyspnea on exertion 10/30/2015 Respiratory dyspnea 0 10/2015 Gastrointestinal No abdominal pain 10/30/2015 Gastrointestinal [...] lips 09/13/2018 None Full Exam - General 1995 [...] 08/30/2016 None Full Exam - General 1995 Eyes conjunctiva/eyelids Overall: cornea clear 08/30/2016 None [...] Procedure Codes Date THER/PROPH/DIAG INJ SC/IM CPT-4: 80562 06/22/2017 TRIAMCINOLONE ACET I [place] NOS CPT-4: J3301 06/22/2017 THER/PROPH/DIAG INJ SC/IM CPT-4: 02780 08/04/2015 TRIAMCINOLONE ACET I [place] NOS CPT-4: J3301 08/04/2015 Vital Signs Date Vital 10/12/2018 Blood Pressure 1: 110/74 Code: 8480-6 Heart Rate 1: 105 bpm Height: 5'1" SpO2: 95% Weight: 09/13/2018 Blood Pressure 1: 156/86 Code: 8480-6 BMI: 32.3 Code: 91392-3 Heart Rate 1: 90 bpm Height: 5'1" SpO2: 98% Weight: 171 lbs 05/04/2018 Blood Pressure 1: 158/88 Code: 8480-6 BMI: 33.3 Code: 14685-7 Heart Rate 1: 63 bpm Height: 5'1" SpO2: 98% Weight: 176 lbs 01/10/2018 Blood Pressure 1: 138/88 Code: 8480-6 BMI: 31.9 Code: 61883-4 Heart Rate 1: 78 bpm Height: 5'1" SpO2: 99% Weight: 169 lbs 12/06/2017 Blood Pressure 1: 158/98 Code: 8480-6 BMI: 32.3 Code: 36577-5 Heart Rate 1: 60 bpm Height: 5'1" SpO2: 100% Weight: 171 lbs 06/22/2017 Blood Pressure 1: 168/92 Code: 8480-6 BMI: 32.6 Code: 63219-2 Heart Rate 1: 133 bpm Height: 5'1" SpO2: 97% Temperature: 37.6 (C ) / 99.7 (F) Weight: 172 lbs 8 oz 03/02/2017 Blood Pressure 1: 168/90 Code: 8480-6 BMI: 35.0 Code: 34895-9 Heart Rate 1: 80 bpm Height: 5'1" SpO2: 94% Weight: 185 lbs 01/24/2017 Blood Pressure 1: 130/68 Code: 8480-6 BMI: 35.3 Code: 68722-6 Heart Rate 1: 66 bpm Height: 5'1" SpO2: 98% Weight: 187 lbs 10/13/2016 Blood Pressure 1: 136/74 Code: 8480-6 BMI: 35.1 Code: 10316-0 Heart Rate 1: 71 bpm Height: 5'1" SpO2: 97% Weight: 186 lbs 08/30/2016 Blood Pressure 1: 128/80 Code: 8480-6 BMI: 35.0 Code: 66143-6 Heart Rate 1: 75 bpm Height: 5'1" SpO2: 96% Weight: 185 lbs 8 oz 07/02/2016 Blood Pressure 1: 140/78 Code: 8480-6 Heart Rate 1: 63 bpm Height: 5'1" SpO2: 98% 06/24/2016 Blood Pressure 1: 148/100 Code: 8480-6 BMI: 34.2 Code: 75286-4 Heart Rate 1: 110 bpm Height: 5'1" SpO2: 94% Weight: 181 lbs 05/04/2016 Blood Pressure 1: 150/90 Code: 8480-6 Blood Pressure 1: 134/82 Code: 8480-6 BMI: 34.6 Code: 74373-3 Heart Rate 1: 74 bpm Height: 5'1" SpO2: 98% Weight: 183 lbs 04/06/2016 Blood Pressure 1: 156/92 Code: 8480-6 Blood Pressure 1: 158/88 Code: 8480-6 BMI: 34.8 Code: 08879-7 Heart Rate 1: 69 bpm Height: 5'1" SpO2: 97% Weight: 184 lbs 03/18/2016 Blood Pressure 1: 148/90 Code: 8480-6 BMI: 35.1 Code: 13319-5 Heart Rate 1: 106 bpm Height: 5'1" SpO2: 94% Weight: 186 lbs 03/11/2016 Blood Pressure 1: 140/90 Code: 8480-6 BMI: 35.1 Code: 82020-7 Heart Rate 1: 103 bpm Height: 5'1" SpO2: 96% Weight: 186 lbs 02/24/2016 Blood Pressure 1: 130/80 Code: 8480-6 BMI: 34.4 Code: 98373-2 Heart Rate 1: 110 bpm Height: 5'1" SpO2: 96% Weight: 182 lbs 12/16/2015 Blood Pressure 1: 144/98 Code: 8480-6 BMI: 33.8 Code: 58314-6 Heart Rate 1: 97 bpm Height: 5'1" SpO2: 98% Weight: 179 lbs 10/30/2015 Blood Pressure 1: 138/88 Code: 8480-6 BMI: 33.6 Code: 87596-8 Heart Rate 1: 88 bpm Height: 5'1" SpO2: 98% Weight: 178 lbs 09/23/2015 Blood Pressure 1: 152/94 Code: 8480-6 BMI: 32.7 Code: 18349-5 Heart Rate 1: 83 bpm Height: 5'1" SpO2: 97% Weight: 173 lbs 09/10/2015 Blood Pressure 1: 136/82 Code: 8480-6 BMI: 32.1 Code: 38377-6 Heart Rate 1: 105 bpm Height: 5'1" SpO2: 97% Weight: 170 lbs 08/12/2015 Blood Pressure 1: 132/70 Code: 8480-6 BMI: 31.2 Code: 22511-3 Heart Rate 1: 88 bpm Height: 5'1" SpO2: 95% Temperature: 36.7 (C ) / 98.0 (F) Weight: 165 lbs 08/04/2015 Blood Pressure 1: 136/80 Code: 8480-6 BMI: 31.0 Code: 37499-7 Heart Rate 1: 110 bpm Height: 5'1" SpO2: 98% Weight: 164 lbs 05/16/2015 Blood Pressure 1: 138/88 Code: 8480-6 BMI: 32.9 Code: 49546-5 Heart Rate 1: 87 bpm Height: 5'1" SpO2: 90% Weight: 174 lbs 05/12/2015 BMI: 31.7 Code: 95282-8 Height: 5'1" Weight: 168 lbs 04/21/2015 Blood Pressure 1: 124/82 Code: 8480-6 BMI: 32.1 Code: 55903-3 Heart Rate 1: 87 bpm Height: 5'1" [...] of the thyroid 12/06/2017 None hypothyroid Quality wing scorer marlye 12/06/2017 None hypothyroid Onset and Resolution ongoing [...] of the thyroid 08/30/2016 None hypothyroid Quality wing scorer marley 08/30/2016 None hypothyroid Onset and Resolution [...] of the thyroid 05/04/2016 None hypothyroid Quality wing scorer marley 05/04/2016 None hypothyroid Onset and Resolution [...] of the thyroid 04/06/2016 None hypothyroid Quality wing scorer marley 04/06/2016 None hypothyroid Onset and Resolution [...] Alleviating Factors medication 12/16/2015 None hypothyroid Quality wing scorer marley 12/16/2015 None hypothyroid Location at the [...] Encounters Encounter Performer Loca tion Codes Date 38205 EST. PATIENT, LEVEL III Diagnosis: Chronic kidney disease, stage 3 (moderate)[ICD10: N18.3] Diagnosis: Essential (primary) hypertension[ICD10: I10] Diagnosis: Encounter for follow-up examination after completed treatment for conditions other than malignant neoplasm[ICD10: Z09] Britney Maya MD, [facility] CPT-4: 18630 10/12/2018 90928 EST. PATIENT, LEVEL III Diagnosis: Hypokalemia[ICD10: E87.6] Diagnosis: Interstitial pulmonary disease, unspecified[ICD10: J84.9] Britney Maya MD, [facility] CPT-4: 87158 09/13/2018 96075 EST. PATIENT, LEVEL IV Diagnosis: Essential (primary) hypertension[ICD10: I10] Diagnosis: Interstitial pulmonary disease, unspecified[ICD10: J84.9] Diagnosis: Chronic kidney disease, stage 3 (moderate)[ICD10: N18.3] Diagnosis: Mixed hyperlipidemia[ICD10: E78.2] Britney Maya MD, [facility] CPT-4: 88806 05/04/2018 37671 EST. PATIENT, LEVEL IV Diagnosis: Essential (primary) hypertension[ICD10: I10] Diagnosis: Interstitial pulmonary disease, unspecified[ICD10: J84.9] Diagnosis: Chronic kidney disease, stage 3 (moderate)[ICD10: N18.3] Diagnosis: Mixed hyperlipidemia[ICD10: E78.2] Britney Maya MD, [facility] CPT-4: 21012 01/10/2018 57265 EST. PATIENT, LEVEL IV Diagnosis: Other specified hypothyroidism[ICD10: E03.8] Diagnosis: Essential (primary) hypertension[ICD10: I10] Britney Maya MD, [facility] CPT-4: 10214 12/06/2017 83049 EST. PATIENT, LEVEL IV Diagnosis: Other malaise[ICD10: R53.81] Diagnosis: Other fatigue[ICD10: R53.83] Britney Maya MD, [facility] CPT-4: 52380 06/22/2017 37737 EST. PATIENT, LEVEL IV Diagnosis: Acute laryngopharyngitis[ICD10: J06.0] Diagnosis: Other acute sinusitis[ICD10: J01.80] Diagnosis: Other allergic rhinitis[ICD10: J30.89] Britney Maya MD, [facility] CPT-4: 52847 03/02/2017 14882 EST. PATIENT, LEVEL IV Diagnosis: Generalized hyperhidrosis[ICD10: R61] Diagnosis: Other acute sinusitis[ICD10: J01.80] Diagnosis: Other fatigue[ICD10: R53.83] Diagnosis: Interstitial pulmonary disease, unspecified[ICD10: J84.9] Britney Maya MD, [facility] CPT-4: 01129 01/24/2017 12062 EST. PATIENT, LEVEL IV Diagnosis: Acute laryngopharyngitis[ICD10: J06.0] Diagnosis: Other acute sinusitis[ICD10: J01.80] Britney Maya MD, [facility] CPT- 4: 73808 10/13/2016 ([id number]) 59480 EST. P ATIENT, LEVEL IV Diagnosis: Essential (primary) hypertension[ICD10: I10] Diagnosis: Drug-induced polyneuropathy[ICD10: G62.0] Diagnosis: Impaired fasting glucose[ICD10: R73.01] Catie Maya MD, [facility] CPT-4: 25046 08/30/2016 02996 EST. PATIENT, LEVEL IV Diagnosis: Pain in thoracic spine[ICD10: M54.6] Diagnosis: Pain in left shoulder[ICD10: M25.512] Diagnosis: Zoster without complications[ICD10: B02.9] Britney Maya MD, [facility] CPT-4: 88552 07/02/2016 91379 EST. PATIENT, LEVEL III Diagnosis: Other specified hypothyroidism[ICD10: E03.8] Diagnosis: Menopausal and female climacteric states[ICD10: N95.1] Diagnosis: Essential (primary) hypertension[ICD10: I10] Britney Maya MD, [facility] CPT-4: 53510 06/24/2016 ([id number]) 07112 EST. P ATIENT, LEVEL IV Diagnosis: Essential (primary) hypertension[ICD10: I10] Diagnosis: Atrophy of thyroid (acquired)[ICD10: E03.4] Diagnosis: Pain in left foot[ICD10: M79.672] Meghana Maya MD, [facility] CPT-4: 55092 05/04/2016 ([id number]) 11943 EST. P ATIENT, LEVEL IV Diagnosis: Essential (primary) hypertension[ICD10: I10] Diagnosis: Pain in left leg[ICD10: M79.605] Diagnosis: Pain in left foot[ICD10: M79.672] Diagnosis: Atrophy of thyroid (acquired)[ICD10: E03.4] Meghana Maya MD, C CPT-4: 36862 04/06/2016 ([id number]) 80151 EST. P ATIENT, LEVEL III Diagnosis: Essential (primary) hypertension[ICD10: I10] Diagnosis: Localized edema[ICD10: R60.0] Catie Maya MD, [facility] CPT- 4: 34369 03/18/2016 ([id number]) 79682 EST. P ATIENT, LEVEL III Diagnosis: Essential (primary) hypertension[ICD10: I10] Diagnosis: Pain in left foot[ICD10: M79.672] Catie Maya MD, [facility] CPT- 4: 99599 03/11/2016 ([id number]) 76148 EST. P ATIENT, LEVEL III Diagnosis: Localized edema[ICD10: R60.0] Diagnosis: Essential (primary) hypertension[ICD10: I10] Catie Maya MD, [facility] CPT-4: 87128 02/24/2016 ([id number]) 50696 EST. P ATIENT, LEVEL IV Diagnosis: Hypothyroidism, unspecified[ICD10: E03.9] Diagnosis: Essential (primary) hypertension[ICD10: I10] Meghana Maya MD, [facility] CPT-4: 55573 12/16/2015 ([id number]) 98365 EST. P ATIENT, LEVEL III Diagnosis: Essential (primary) hypertension[ICD10: I10] Diagnosis: Hypothyroidism, unspecified[ICD10: E03.9] Meghana Maya MD, [facility] CPT-4: 25725 10/30/2015 ([id number]) 10285 EST. P ATIENT, LEVEL IV Diagnosis: Diarrhea, unspecified[ICD10: R19.7] Diagnosis: Essential (primary) hypertension[ICD10: I10] Meghana Maya MD, [facility] CPT-4: 80031 09/23/2015 ([id number]) 90042 EST. P ATIENT, LEVEL III Diagnosis: Essential (primary) hypertension[ICD10: I10] Diagnosis: Diarrhea, unspecified[ICD10: R19.7] Meghana Maya MD, [facility] CPT- 4: 87866 09/10/2015 ([id number]) 08240 EST. P ATIENT, LEVEL III Diagnosis: Acute maxillary sinusitis, unspecified[ICD10: J01.00] Diagnosis: Myositis, unspecified[ICD10: M60.9] Meghana Maya MD, [facility] CPT- 4: 19252 08/12/2015 ([id number]) 26616 EST. P ATIENT, LEVEL IV Diagnosis: Essential (primary) hypertension[ICD10: I10] Diagnosis: Pain in left leg[ICD10: M79.605] Diagnosis: Other myositis, multiple sites[ICD10: M60.89] Diagnosis: Hypothyroidism, unspecified[ICD10: E03.9] Meghana Maya MD, [facility] CPT-4: 01204 08/04/2015 86811 EST. PATIENT, LEVEL III Diagnosis: Dyspnea, unspecified[ICD10: R06.00] Diagnosis: Essential (primary) hypertension[ICD10: I10] Meghana Maya MD, C CPT-4: 06643 05/16/2015 ([id number]) 54509 EST. P ATIENT, LEVEL II Diagnosis: Dyspnea, unspecified[ICD10: R06.00] Meghana Maya MD, [facility] CPT- 4: 86215 05/12/2015 ([id number]) [facility], [facility] - LEVEL 4 Diagnosis: Essential (primary) hypertension[ICD10: I10] Diagnosis: Impaired fasting glucose[ICD10: R73.01] Diagnosis: Mixed hyperlipidemia[ICD10: E78.2] Diagnosis: Hypothyroidism, unspecified[ICD10: E03.9] Diagnosis: Encounter for screening mammogram for malignant neoplasm of breast[ICD10: Z12.31] [facility] CPT-4: 69182 04/21/2015 Plan of Care Planned Activity Notes C odes Status Date Appointment: Britney Bower WPtel: [address] [place], [place] [phone] (30 min) Complex 10/26/2018 Appointment: Britney Bower WPtel: [address] [place], [place] [phone] Nurse Visit 10/17/2018 Visit Plan: Hypertension - [...] to monitor - pt has seen a weather stripper in the 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 Hospital follow up - This was a follow up appointment from the patient's hospitalization during which time Dr. Maya formulated the assessment and plan for the follow up on this patient's medical condition. 10/12/2018 Appointment: Britney Bower WPtel: [address] [place], [place] [address] (30 min) Complex 10/12/2018 Patient Education: Patient Medication Summary Completed 10/12/2018 Visit Plan: Hypokalemia - will send RX for potassium and monitor labs Interstitial lung disease - pt is to follow up with specialist and notify clinic with any changes in current treatment plan 09/13/2018 Appointment: Britney Bower WPtel: [address] [place], [place] [phone] (30 min) Complex 09/13/2018 Patient Education: Patient [...] plan 05/04/2018 [facility]ment[phone] ([facility] min) Moderate 05/04/2018 Patient Education: [...] plan 01/10/2018 Appointment: [phone] (30 min) Complex 01/10/2018 Patient Education: [...] of control. 12/06/2017 Appointment: Britney Bower WPtel: [facility]5 [facility] (15 min) Moderate 12/06/2017 Patient Education: Patient Medication Summary Completed 12/06/2017 Visit Plan: URI - Pt advised to inc rease fluids, vitamin C. Discussed natural and expected course of this diagnosis and need to alert me if symptoms do not follow expected course, or if any worse. RX sent to patient's pharmacy. 06/22/2017 Appointment: Britney Bower WPtel: [phone] [facility] (15 min) Moderate 06/22/2017 [...] allergy spray. 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 Maya - will increase clonidine to BID - pt is to consider referral to dermatology - notify clinic if symptoms do not improve, if they worsen, or with any other questions or concerns. 01/24/2017 Appointment: Britney Bower WPtel: [facility]5 [facility] (30 min) Complex 01/24/2017 Patient Education: Patient [...] show improvement. 10/13/2016 Appointment: Britney Bower WPtel: [phone] [facility] (30 min) Complex 10/13/2016 Patient Education: [...] change in blood pressure readings at home. 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 07/02/2016 Appointment: [phone] [facility] (30 min) Complex 07/02/2016 Patient Education: [...] control. 06/24/2016 Appointment: [phone] (30 min) Complex 06/24/2016 Patient Education: Patient Medication Summary Completed 06/24/2016 Patient Education: Obesity Completed 06/24/2016 Patient Education: Hypertension Completed 06/24/2016 Patient Education: Patient Medication Summary Completed 05/14/2016 Care Plan: SCREENINGMAMMOGRAPHYDIGITAL [facility] : 80197-0 Pending 05/14/2016 Visit Plan: Hypertension - well [...] painful. 05/04/2016 Appointment: [phone] [facility] (15 min) Moderate 05/04/2016 Patient Education: [...] current medication. 04/06/2016 Appointment: Meghana Maya WPtel: [facility] (15 min) Moderate 04/06/2016 Patient Education: Patient Medication Summary Completed 04/06/2016 Patient Education: Obesity Completed 04/06/2016 Care Plan: Referral Order SNOMED-CT : [id number] Pending 04/06/2016 Visit Plan: Edema-improved with low [...] acute concerns. 03/18/2016 Appointment: Catie Shoemaker WPtel: [facility]8 [phone] (15 min) Moderate 03/18/2016 Patient Education: Patient [...] xray left foot-recommend she follow up with spinner concrete pipe at regarding left foot pain/numbness/weakness. Patient has noticed worsening symptoms since decreasing prednisone. 03/11/2016 Appointment: Catie Shoemaker WPtel: [facility]9 [phone] [place] (15 min) Moderate 03/11/2016 Patient Education: Patient Medication Summary Completed 03/11/2016 Patient Education: Obesity Completed 03/11/2016 Appointment: Catie Shoemaker WPtel: [address] [place], [place] [phone] [place] (30 min) Complex 03/09/2016 Visit Plan: [...] 25mg daily 02/24/2016 Appointment: Catie Shoemaker WPtel: [phone] (15 min) Moderate 02/24/2016 Patient Education: Patient Medication Summary Completed 02/24/2016 Patient Education: Obesity Completed 02/24/2016 Patient Education: Hypertension Completed 02/24/2016 Appointment: Meghana Maya WPtel: [facility] (15 min) Moderate 02/23/2016 Visit Plan: Hypertension [...] of control. 12/16/2015 Appointment: Meghana Maya WPtel: [facility]5 [facility] (15 min) Moderate 12/16/2015 Patient Education: Patient [...] min) Complex 10/23/2015 Appointment: Meghana Maya WPtel: [address] [place], [place] [address] (15 min) Moderate 10/23/2015 Visit Plan: Hypertension [...] home. 09/10/2015 Appointment: [facility]Ptel[facility] [phone] [facility] (15 min) Moderate 09/10/2015 Patient Education: [...] Complex 07/24/2015 Appointment: [phone] [facility] [place] (15 min) Moderate 07/24/2015 Appointment: Lab Draw [...] Completed 04/21/2015 Care Plan: SCREENINGMAMMOGRAPHYDIGITAL LOINC : 65295-3 Ordered 04/21/2015 Appointment: Meghana Maya WPtel: [address] [place], [place] [id number] [place] (S) New Patient 04/01/2015 Referral: Sharon [...] SPECIALIZES IN FOOT AND ANKLE DISEASE AT [address] INCREASE THE METOPROLOL TO 1.5 PILLS [...] change in blood pressure readings at home. 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 Maya - will increase clonidine to BID - pt is to consider referral to dermatology - notify clinic if symptoms do not improve, if they worsen, or with any other questions or concerns. probiotic - gracie [place], probiotic pearls, etc - take three times [...] to monitor - pt has seen a weather stripper in the past and does not want [...]
--- OUTSIDE RECORDS SUMMARY | 2019-08-14 06:22 | XMS REPORT | CCD ---
Author Author Carolann Shoemaker Organization Meghana Maya MD, [facility] Address [facility] [place] [address] Phone Care Team Providers Care Regular Senior Care Provider Name Role Phone PP Unavailable CCM Unavailable Summary Purpose Interface Exchange Family history Mother Diagnosis Age At Onset Hypertension Unknown Breast cancer Unknown Osteoporosis Unknown Father Diagnosis Age At Onset kidney disease Unknown Cancer Unknown Hyperlipidemia Unknown Social History Social History Element Codes Description Effective Dates Marital status Unknown D ivorced 04/21/2015 Number of children Unknown 1 04/21/2015 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/[address]: 314603757 Never smoker 04/21/2015 Alcohol history Unknown occasionally drinks alcohol 04/21/2015 Allergies, Adverse Reactions, Alerts Substance Reaction Codes Entered Date Inactivated Date Status [id number] REDU CTASE INHIBITORS myalgias Unknown 016 No [...] Date Stop Date Sta tus Fill Instructions venlafaxine ER 150 m g capsule,extended release 24 hr RxNorm: 318614 TAKE ONE CAPSULE BY MOUTH DAILY 12/04/2018 06/01/2019 Active metoprolol succinate ER 50 mg tablet,extended release 24 hr RxNorm: 878828 1 Tablet(s) PO daily 10/17/2018 10/11/2019 Active nystatin 100,000 uni t/mL oral suspension RxNorm: 799241 4 Unit(s) PO QID 10/17/2018 10/23/2018 In active nystatin 100,000 uni t/mL oral suspension RxNorm: 087688 4 Unit(s) PO QID 10/17/2018 10/16/2018 In active potassium chloride E R 10 mEq tablet,extended release RxNorm: 257553 Tablet(s) TAKE ONE TABLET BY MOUTH DAILY 09/15/2018 03/13/2019 Active candesartan 4 mg tablet RxNorm: 881374 1 Tablet(s) PO daily 09/15/2018 10/14/2018 Inactive clonidine HCl 0.1 mg tablet RxNorm: 198673 TAKE ONE TABLET BY [facility] TWICE A DAY 09/14/2018 02/10/2019 Ac tive losartan 25 mg tablet RxNorm: 617673 TAKE ONE TABLET BY MOUTH DAILY 09/14/2018 11/12/2018 In active clonidine HCl 0.1 mg tablet RxNorm: 969839 Tablet(s) TAKE ONE TA BLET BY MOUTH AT BEDTIME 09/13/2018 No Stop Date Active Lipitor 20 mg tablet RxNorm: 135246 TAKE ONE TABLET BY MOUTH DAILY 05/15/2018 11/10/2018 In active venlafaxine ER 150 m g capsule,extended release 24 hr RxNorm: 471428 TAKE ONE CAPSULE BY MOUTH DAILY 05/15/2018 11/10/2018 Inactive losartan 25 mg tablet RxNorm: 668093 TAKE ONE TABLET BY MOUTH DAILY 04/17/2018 07/14/2018 In active losartan 25 mg tablet RxNorm: 128922 TAKE ONE TABLET BY MOUTH DAILY 04/17/2018 04/16/2018 In active Lipitor 20 mg tablet RxNorm: 285856 1 Tablet(s) PO daily 01/12/2018 01/11/2018 Inactive Lipitor 20 mg tablet RxNorm: 448144 1 Tablet(s) PO daily 01/12/2018 05/11/2018 Inactive clonidine HCl 0.1 mg tablet RxNorm: 970459 TAKE ONE TABLET BY [facility] TWICE A DAY 01/04/2018 07/02/2018 In active potassium chloride E R 10 mEq tablet,extended release RxNorm: 525103 TAKE ONE TABLET BY MOUTH DAILY 01/04/2018 09/12/2018 Inactive losartan 25 mg tablet RxNorm: 711032 TAKE ONE TABLET BY MOUTH DAILY 01/03/2018 04/02/2018 In active levothyroxine 50 mcg tablet RxNorm: 281809 1 Tablet(s) PO daily 12/08/2017 09/12/2018 Inactive losartan 25 mg tablet RxNorm: 931870 1 Tablet(s) PO daily 12/06/2017 01/02/2018 Inactive venlafaxine ER 150 m g capsule,extended release 24 hr RxNorm: 597613 TAKE ONE CAPSULE BY MOUTH DAILY 12/06/2017 05/04/2018 Inactive metoprolol succinate ER 50 mg tablet,extended release 24 hr RxNorm: 070308 TAKE ONE TABLET BY MOUTH DAILY 08/29/2017 01/25/2018 Inactive metoprolol succinate ER 50 mg tablet,extended release 24 hr RxNorm: 123645 TAKE ONE TABLET BY MOUTH DAILY 08/29/2017 08/28/2017 Inactive metoprolol succinate ER 50 mg tablet,extended release 24 hr RxNorm: 654255 TAKE ONE TABLET BY MOUTH DAILY 08/29/2017 08/28/2017 Inactive Tamiflu 75 mg capsule RxNorm: 073109 1 Capsule(s) PO BID 06/22/2017 06/26/2017 Inactive Kenalog 40 mg/mL jenna pension for injection RxNorm: 0850980 1.5 Milliliter(s) In j 06/22/2017 06/22/2017 In active clonidine HCl 0.1 mg tablet RxNorm: 126277 TAKE ONE TABLET BY [facility] TWICE A DAY 06/06/2017 12/02/2017 In active potassium chloride E R 10 mEq tablet,extended release RxNorm: 161198 TAKE ONE TABLET BY MOUTH DAILY 06/06/2017 12/02/2017 Inactive venlafaxine ER 150 m g capsule,extended release 24 hr RxNorm: 902637 TAKE ONE CAPSULE BY MOUTH DAILY 05/23/2017 11/18/2017 Inactive Zithromax 500 mg tablet RxNorm: 955425 1 Tablet(s) PO daily 05/18/2017 05/22/2017 Inactive potassium chloride E R 10 mEq tablet,extended release RxNorm: 909220 TAKE ONE TABLET BY MOUTH DAILY 04/21/2017 05/20/2017 Inactive potassium chloride E R 10 mEq tablet,extended release RxNorm: 907727 TAKE ONE TABLET BY MOUTH DAILY 03/16/2017 04/14/2017 Inactive Zithromax Z-Jacek 250 mg tablet RxNorm: 932598 1 Tablet(s) PO UD 03/02/2017 06/21/2017 Inactive venlafaxine ER 150 m g capsule,extended release 24 hr RxNorm: 893481 Capsule(s) TAKE ONE CAPSULE BY MOUTH DAILY 02/17/2017 02/16/2017 Inactive venlafaxine ER 150 m g capsule,extended release 24 hr RxNorm: 427348 TAKE ONE CAPSULE BY MOUTH DAILY 02/17/2017 05/14/2018 Inactive clonidine HCl 0.1 mg tablet RxNorm: 101824 TAKE ONE TABLET BY [facility] EVERY NIGHT AT BEDTIME 02/14/2017 01/03/2018 Inactive metoprolol succinate ER 50 mg tablet,extended release 24 hr RxNorm: 111077 TAKE ONE TABLET BY MOUTH DAILY 02/14/2017 08/12/2017 Inactive Protonix 40 mg table t,delayed release RxNorm: 307114 TAKE ONE TABLET BY [facility] DAILY WHILE ON PREDNISONE 01/25/2017 09/12/2018 Inactive Zithromax Z-Jacek 250 mg tablet RxNorm: 453436 1 Tablet(s) PO UD 01/24/2017 01/03/2018 Inactive potassium chloride E R 10 mEq tablet,extended release RxNorm: 877835 TAKE ONE TABLET BY MOUTH DAILY 01/17/2017 03/15/2017 Inactive clonidine HCl 0.1 mg tablet RxNorm: 367936 TAKE ONE TABLET BY [facility] EVERY NIGHT AT BEDTIME 01/17/2017 02/13/2017 Inactive potassium chloride E R 10 mEq tablet,extended release RxNorm: 576115 TAKE ONE TABLET BY MOUTH DAILY 12/16/2016 01/14/2017 Inactive venlafaxine ER 150 m g capsule,extended release 24 hr RxNorm: 717264 TAKE ONE CAPSULE BY MOUTH DAILY 11/18/2016 02/15/2017 Inactive clonidine HCl 0.1 mg tablet RxNorm: 650444 TAKE ONE TABLET BY [facility] EVERY NIGHT AT BEDTIME 11/08/2016 01/06/2017 Inactive clonidine HCl 0.1 mg tablet RxNorm: 366591 1 Tablet(s) BID 10/19/2016 01/16/2017 Inactive potassium chloride E R 10 mEq tablet,extended release RxNorm: 978545 TAKE ONE TABLET BY MOUTH DAILY 10/15/2016 11/13/2016 Inactive Zithromax Z-Jacek 250 mg tablet RxNorm: 260050 1 Tablet(s) PO UD 10/13/2016 01/03/2018 Inactive potassium chloride E R 10 mEq tablet,extended release RxNorm: 882937 TAKE ONE TABLET BY MOUTH DAILY 10/12/2016 10/14/2016 Inactive potassium chloride E R 10 mEq tablet,extended release RxNorm: 406658 Tablet(s) BID TAKE ONE TABLET BY MOUTH TWICE DAILY 09/17/2016 10/11/2016 Inactive potassium chloride E R 10 mEq tablet,extended release RxNorm: 159141 TAKE ONE TABLET BY MOUTH DAILY 09/13/2016 09/16/2016 Inactive clonidine HCl 0.1 mg tablet RxNorm: 620504 Tablet(s) TAKE ONE TA BLET BY MOUTH EVERY NIGHT AT BEDTIME 08/12/2016 10/18/2016 Inactive gabapentin 300 mg ca psule RxNorm: 431450 1 Capsule(s) PO Q 08/10/2016 No Stop Date Active venlafaxine ER 150 m g capsule,extended release 24 hr RxNorm: 874192 TAKE ONE CAPSULE BY MOUTH DAILY 08/09/2016 11/06/2016 Inactive metoprolol succinate ER 50 mg tablet,extended release 24 hr RxNorm: 207766 TAKE ONE TABLET BY MOUTH DAILY 07/29/2016 01/24/2017 Inactive clonidine HCl 0.1 mg tablet RxNorm: 499775 TAKE ONE TABLET BY [facility] EVERY NIGHT AT BEDTIME 07/21/2016 08/11/2016 Inactive potassium chloride E R 10 mEq tablet,extended release RxNorm: 230049 TAKE ONE TABLET BY MOUTH DAILY 07/14/2016 09/11/2016 Inactive Prescriber not associated w ith this practice or location acyclovir 400 mg tablet RxNorm: 117496 2 Tablet(s) PO QID 07/02/2016 07/11/2016 Inactive cyclobenzaprine 5 mg tablet RxNorm: 850296 1-2 Tablet(s) PO TID as needed 07/02/2016 07/06/2016 In active capsaicin 0.1 % topi reagan cream RxNorm: 357564 1 Application TOP TID as needed 07/02/2016 09/12/2018 In active Protonix 40 mg table t,delayed release RxNorm: 325196 TAKE ONE TABLET BY [facility] DAILY WHILE ON PREDNISONE 06/29/2016 12/25/2016 Inactive clonidine HCl 0.1 mg tablet RxNorm: 662019 1 Tablet(s) PO QHS 06/25/2016 07/20/2016 Inactive calcium carbonate 50 0 mg calcium (1,250 mg) tablet RxNorm: 335567 TAKE ONE TABLET BY MOUTH DAILY WHILE ON PREDNISONE. MAY STOP TAKING WHEN PREDNISONE IS COMPLETE 06/01/2016 09/12/2018 In active Vitamin D3 1,000 uni t tablet RxNorm: 050380 1 Tablet(s) PO daily . May stop taking once prednisone is complete. 04/26/2016 09/12/2018 Inactive metoprolol succinate ER 50 mg tablet,extended release 24 hr RxNorm: 072649 1.5 Tablet(s) PO daily 04/06/2016 06/23/2016 Inactive prednisone 10 mg tablet RxNorm: 991281 1 Tablet(s) PO daily 04/02/2016 06/21/2017 Inactive metoprolol succinate ER 50 mg tablet,extended release 24 hr RxNorm: 195374 1 Tablet(s) PO daily 03/18/2016 04/05/2016 Inactive amlodipine 10 mg tablet RxNorm: 580307 1/2 Tablet(s) PO daily 02/24/2016 06/21/2016 Inactive metoprolol succinate ER 25 mg tablet,extended release 24 hr RxNorm: 227226 1 Tablet(s) PO daily 02/24/2016 03/16/2016 Inactive calcium carbonate 50 0 mg calcium (1,250 mg) tablet RxNorm: 227953 TAKE ONE TABLET BY MOUTH DAILY WHILE ON PREDNISONE. MAY STOP TAKING WHEN PREDNISONE IS COMPLETE 02/16/2016 05/15/2016 In active Protonix 40 mg table t,delayed release RxNorm: 742287 TAKE ONE TABLET BY [facility] DAILY WHILE ON PREDNISONE 02/10/2016 05/09/2016 Inactive venlafaxine ER 150 m g capsule,extended release 24 hr RxNorm: 059655 Capsule(s) TAKE ONE CAPSULE BY MOUTH DAILY 12/10/2015 04/07/2016 Inactive calcium carbonate 50 0 mg calcium (1,250 mg) tablet RxNorm: 646257 1 Tablet(s) PO daily 12/01/2015 01/29/2016 Inactive Vitamin D3 1,000 uni t tablet RxNorm: 345470 1 Tablet(s) PO daily 12/01/2015 03/29/2016 Inactive levothyroxine 50 mcg tablet RxNorm: 681706 1 Tablet(s) PO daily 12/01/2015 11/24/2016 Inactive amlodipine 10 mg tablet RxNorm: 324673 1 Tablet(s) PO daily 11/19/2015 11/18/2015 Inactive amlodipine 10 mg tablet RxNorm: 735927 1 Tablet(s) PO daily 11/19/2015 02/23/2016 Inactive amlodipine 5 mg tablet RxNorm: 075905 1 Tablet(s) PO daily 11/17/2015 11/18/2015 Inactive venlafaxine ER 150 m g capsule,extended release 24 hr RxNorm: 221756 TAKE ONE CAPSULE BY MOUTH DAILY 11/13/2015 12/09/2015 Inactive Protonix 40 mg table t,delayed release RxNorm: 136647 1 Tablet(s) PO daily while on prednisone 2015 02/09/2016 Inactive prednisone 10 mg tablet RxNorm: 771645 2 Tablet(s) PO UD 10/30/2015 04/01/2016 Inactive 60mg for 2 days, then 50mg for 2 days, then 40mg for 2 days, then 30mg for 2 days, then 20mg for 2 days, then 10mg for 2 days, then 5mg for 2 days potassium chloride E R 10 mEq tablet,extended release RxNorm: 143694 TAKE ONE TABLET BY MOUTH DAILY 09/22/2015 12/19/2015 Inactive venlafaxine ER 150 m g capsule,extended release 24 hr RxNorm: 924089 TAKE ONE CAPSULE BY MOUTH DAILY 09/08/2015 11/06/2015 Inactive cefdinir 300 mg capsule RxNorm: 853402 1 Capsule(s) PO BID 08/20/2015 08/22/2015 Inactive cefdinir 300 mg capsule RxNorm: 275313 1 Capsule(s) PO BID 08/12/2015 08/18/2015 Inactive Kenalog 40 mg/mL jenna pension for injection RxNorm: 5609217 1 Milliliter(s) Inj 08/04/2015 08/04/2015 In active triamterene 37.5 mg- hydrochlorothiazide 25 mg tablet RxNorm: 133465 1 Tablet(s) PO BID 06/17/2015 08/03/2015 Inactive potassium chloride E R 10 mEq tablet,extended release RxNorm: 787875 1 Tablet(s) PO daily 05/30/2015 08/03/2015 Inactive Levaquin 250 mg tablet RxNorm: 735426 Tablet(s) PO UD 500 mg day one, then 250 mg day 2-7 05/27/2015 08/03/2015 Inactive prednisone 10 mg tablet RxNorm: 132257 Tablet(s) PO UD 05/27/2015 10/29/2015 Inactive 60mg for 2 days, then 50mg for 2 days, then 40mg for 2 days, then 30mg for 2 days, then 20mg for 2 days, then 10mg for 2 days, then 5mg for 2 days albuterol sulfate 1. 25 mg/3 mL solution for nebulization RxNorm: 678493 3 Milliliter(s) INH Q4-6H as needed dyspnea 05/23/2015 09/12/2018 Inactive Zithromax 500 mg tablet RxNorm: 391797 1 Tablet(s) PO daily 05/16/2015 05/15/2015 Inactive Zithromax 500 mg tablet RxNorm: 162463 1 Tablet(s) PO daily 05/16/2015 05/20/2015 Inactive prednisone 20 mg tablet RxNorm: 065284 3 Tablet(s) PO daily 05/12/2015 05/16/2015 Inactive venlafaxine ER 150 m g capsule,extended release 24 hr RxNorm: 737727 TAKE ONE CAPSULE BY MOUTH DAILY 05/12/2015 08/09/2015 Inactive Keflex 500 mg capsule RxNorm: 461895 1 Capsule(s) PO TID 05/12/2015 05/18/2015 Inactive simvastatin 20 mg ta blet RxNorm: 837751 1 Tablet(s) PO daily 04/10/2015 04/09/2015 Inactive simvastatin 20 mg ta blet RxNorm: 485034 1 Tablet(s) PO daily 04/10/2015 08/11/2015 Inactive venlafaxine ER 150 m g capsule,extended release 24 hr RxNorm: 441133 TAKE ONE CAPSULE BY MOUTH DAILY 04/08/2015 05/07/2015 Inactive amlodipine 5 mg tablet RxNorm: 386386 1 Tablet(s) PO daily 03/07/2015 03/06/2015 Inactive amlodipine 5 mg tablet RxNorm: 003234 1 Tablet(s) PO daily 03/07/2015 07/04/2015 Inactive venlafaxine ER 150 m g capsule,extended release 24 hr RxNorm: 319385 1 Capsule(s) PO daily 01/29/2015 03/29/2015 Inactive Co Q-10 oral RxNorm: 11152 oral No Start Date Active gabapentin 100 mg ca psule RxNorm: 098183 1 Capsule(s) PO QAM No Start Date Active albuterol sulfate 1. 25 mg/3 mL solution for nebulization RxNorm: 127788 3 Milliliter(s) INH Q4-6H as needed dyspnea No Start Date 05/22/2015 Inactive levothyroxine 50 mcg tablet RxNorm: 532393 1 Tablet(s) PO daily No Start Date 11/30/2015 Inactive metoprolol succinate ER 50 mg tablet,extended release 24 hr RxNorm: 379883 1 Tablet(s) PO daily No Start Date 09/12/2018 Inactive gabapentin 300 mg ca psule RxNorm: 316046 1 Capsule(s) PO QHS No Start Date 08/09/2016 Inactive vitamin B complex oral RxNorm: 38306 oral No Start Date 09/12/2018 Inactive Vitamin D3 1,000 uni t tablet RxNorm: 782917 1 Tablet(s) PO daily No Start Date 11/30/2015 Inactive Protonix 40 mg table t,delayed release RxNorm: 506883 1 Tablet(s) PO daily while on prednisone No Start Date 10/30/2015 Inactive calcium carbonate oral RxNorm: oral No Start Date 11/30/2015 Inactive potassium chloride E R 10 mEq tablet,extended release RxNorm: 132489 1 Tablet(s) PO daily No Start Date 05/29/2015 Inactive Levaquin 250 mg tablet RxNorm: 101132 Tablet(s) PO UD 500 mg day one, then 250 mg day 2-7 No Start Date 05/26/2015 Inactive triamterene 37.5 mg- hydrochlorothiazide 25 mg tablet RxNorm: 596993 1 Tablet(s) PO BID No Start Date 06/16/2015 Inactive prednisone 10 mg tablet RxNorm: 875094 Tablet(s) PO UD No Start Date 05/26/2015 Inactive 60mg for 2 days, then 50mg for 2 days, then 40mg for 2 days, then 30mg for 2 days, then 20mg for 2 days, then 10mg for 2 days, then 5mg for 2 days venlafaxine ER 150 m g capsule,extended release 24 hr RxNorm: 298193 1 Capsule(s) PO daily No Start Date 01/28/2015 Inactive Medication Administered Medication Codes Instruc tions Start Date Status Kenalog 40 mg/mL suspension for injection RxNorm: 2556962 1.5Milliliter 06/22/2017 No longer Active Kenalog 40 mg/mL suspension for injection RxNorm: 0757069 1Milliliter 08/04/2015 N o longer Active Immunizations [...] Item Item Code Result Date Comp Metabolic Yjl490 NA 142 mEq/L 10/12/2018 Comp Metabolic Yjl805 K 4.0 mEq/L 10/12/2018 Comp Metabolic Lty400 CL 105 mEq/L 10/12/2018 Comp Metabolic Wyb707 CO2 21.0 mEq/L 10/12/2018 Comp Metabolic Rct531 AN ION GAP 20 10/12/2018 Comp Metabolic Zki655 GL UCOSE 105 mg/dL 10/12/2018 Comp Metabolic Wiy086 Cr eat 1.8 mg/dL 10/12/2018 Comp Metabolic Zuq919 eG FR 30 ml/min/1.73m2 10/12 Comp Metabolic Qrf126 BUN 19 mg/dL 10/12/2018 Comp Metabolic Vno059 B/ C Ratio 10.5 Ratio 10/12/2018 Comp Metabolic Bzu926 CA LCIUM 9.0 mg/dL 10/12/2018 Comp Metabolic Nlh376 AL K PHOS 74 U/L 10/12/2018 Comp Metabolic Fbr014 T(SGOT) 21 U/L 10/12/2018 Comp Metabolic Url169 AL T(SGPT) 22 U/L 10/12/2018 Comp Metabolic Xvf449 BI LI T 0.4 mg/dL 10/12/2018 Comp Metabolic Pyw435 AL BUMIN 3.9 g/dL 10/12/2018 Comp Metabolic Qbi417 TP RO 6.1 g/dL 10/12/2018 Comp Metabolic Aev200 GL OB 2.2 g/dL 10/12/2018 Comp Metabolic Yju815 A/ G Ratio 1.7 Ratio 10/12/2018 Comp Metabolic Ufo200 Os mo 286 mOsmo 10/12/2018 Cbc With [...] 28.0 pg 10/12/2018 Cbc With Differential Ord2 Carbon% 16.6 % 10/12/2018 Cbc With Differential Ord2 [...] 1.77 K/ul 10/12/2018 Cbc With Differential Ord2 Carbon ABS# 2.4 K/ul 10/12/2018 Cbc With Differential Ord2 Eos ABS# 0.0 K/ul 10/12/2018 Cbc With Differential Ord2 Baso ABS# 0.0 K/ul 10/12/2018 Electrolytes Ord62 NA 140 mEq/L 09/15/2018 Electrolytes Ord62 K 4.2 mEq/L 09/15/2018 Electrolytes Ord62 CL 111 mEq/L 09/15/2018 Electrolytes Ord62 CO2 20.0 mEq/L 09/15/2018 Electrolytes Ord62 ANION GAP 13 09/15/2018 Comp Metabolic Gun921 NA 140 mEq/L 01/10/2018 Comp Metabolic Stq311 K 3.8 mEq/L 01/10/2018 Comp Metabolic Mxb244 CL 106 mEq/L 01/10/2018 Comp Metabolic Wcf714 CO2 25.0 mEq/L 01/10/2018 Comp Metabolic Evv678 AN ION GAP 13 01/10/2018 Comp Metabolic Axp706 GL UCOSE 110 mg/dL 01/10/2018 Comp Metabolic Bqx862 Cr eat 1.5 mg/dL 01/10/2018 Comp Metabolic Uvr854 eG FR 37 ml/min/1.73m2 01/10 Comp Metabolic Gaw130 BUN 23 mg/dL 01/10/2018 Comp Metabolic Wmp490 B/ C Ratio 15.3 Ratio 01/10/2018 Comp Metabolic Acv138 CA LCIUM 9.2 mg/dL 01/10/2018 Comp Metabolic Sbh091 AL K PHOS 87 U/L 01/10/2018 Comp Metabolic Tbr139 T(SGOT) 15 U/L 01/10/2018 Comp Metabolic Jsk272 AL T(SGPT) 9 U/L 01/10/2018 Comp Metabolic Tbj103 BI LI T 0.4 mg/dL 01/10/2018 Comp Metabolic Iig421 AL BUMIN 3.8 g/dL 01/10/2018 Comp Metabolic Rgt760 TP RO 6.2 g/dL 01/10/2018 Comp Metabolic Scc367 GL OB 2.4 g/dL 01/10/2018 Comp Metabolic Klk090 A/ G Ratio 1.6 Ratio 01/10/2018 Comp Metabolic Cdq389 Os mo 284 mOsmo 01/10/2018 C-Reactive Protein [...] 27.6 pg 01/10/2018 Cbc With Differential Ord2 Carbon% 15.2 % 01/10/2018 Cbc With Differential Ord2 [...] 1.47 K/ul 01/10/2018 Cbc With Differential Ord2 Carbon ABS# 1.0 K/ul 01/10/2018 Cbc With Differential Ord2 Eos ABS# 0.1 K/ul 01/10/2018 Cbc With Differential Ord2 Baso ABS# 0.0 K/ul 01/10/2018 Sed Rate Ord21 ESR 12 mm/hr 01/10/2018 Free T4 Ihz168 FREE T4 0.57 ng/dL 12/06/2017 Tsh Ord6 TSH (3rd IS) 7.40 uIU/mL 12/06/2017 C A/B FLU [id number] Influe nza A Scr Negative 06/22/2017 C A/B FLU [id number] Influe nza B Scr Negative 06/22/2017 C A/B FLU [id number] Influe nza Intrp B AG:PRID:PT:NOSE:NOM:IF See Footnote 06/22/2017 Comp Metabolic Wrz467 NA 140 mEq/L 08/30/2016 Comp Metabolic Yff313 K 3.3 mEq/L 08/30/2016 Comp Metabolic Bta592 CL 104 mEq/L 08/30/2016 Comp Metabolic Lfp710 CO2 26.0 mEq/L 08/30/2016 Comp Metabolic Lkk790 AN ION GAP 13 08/30/2016 Comp Metabolic Wjj985 GL UCOSE 143 mg/dL 08/30/2016 Comp Metabolic Sgr716 Cr eat 1.3 mg/dL 08/30/2016 Comp Metabolic Zyw661 eG FR 43 ml/min/1.73m2 08/30 Comp Metabolic Obf431 BUN 19 mg/dL 08/30/2016 Comp Metabolic Mjd950 B/ C Ratio 14.3 Ratio 08/30/2016 Comp Metabolic Cqg025 CA LCIUM 10.0 mg/dL 08/30/2016 Comp Metabolic Siq184 AL K PHOS 67 U/L 08/30/2016 Comp Metabolic Yoz753 T(SGOT) 28 U/L 08/30/2016 Comp Metabolic Wxd112 AL T(SGPT) 43 U/L 08/30/2016 Comp Metabolic Uul573 BI LI T 0.4 mg/dL 08/30/2016 Comp Metabolic Joi519 AL BUMIN 4.0 g/dL 08/30/2016 Comp Metabolic Crt588 TP RO 6.2 g/dL 08/30/2016 Comp Metabolic Jwu907 GL OB 2.2 g/dL 08/30/2016 Comp Metabolic Qgd855 A/ G Ratio 1.8 Ratio 08/30/2016 Comp Metabolic Cvl777 Os mo 284 mOsmo 08/30/2016 %Hba1C Tgp809 % HbA1c 68936-6 6.1 % 08/30/2016 %Hba1C Wdq402 Gluc Ave 128 mg/dL 08/30/2016 Free T4 Kib998 FREE T4 0.75 ng/dL 06/25/2016 Tsh Ord6 [...] Ord90 Mag 2.1 mg/dL 12/16/2015 Free T4 Edh626 FREE T4 0.92 ng/dL 12/16/2015 Tsh Ord6 [...] 28.5 pg 08/04/2015 Cbc With Differential Ord2 Carbon% 6.1 % 08/04/2015 Cbc With Differential Ord2 [...] 0.73 K/ul 08/04/2015 Cbc With Differential Ord2 Carbon ABS# 0.5 K/ul 08/04/2015 Cbc With Differential Ord2 Eos ABS# 0.1 K/ul 08/04/2015 Cbc With Differential Ord2 Baso ABS# 0.0 K/ul 08/04/2015 Cbc With Differential Ord2 New Analyzer Notice Please note new ref ranges s tarting 07-09-2015 due to implemntation of new five part differential hematolgy analyzer. 08/04/2015 C-Reactive Protein Qnt Crqnt CRP 0.8 mg/dl 08/04/2015 Comp Metabolic Pyy069 NA 139 mEq/L 08/04/2015 Comp Metabolic Gbg620 K 3.4 mEq/L 08/04/2015 Comp Metabolic Zij820 CL 109 mEq/L 08/04/2015 Comp Metabolic Rst503 CO2 22.0 mEq/L 08/04/2015 Comp Metabolic Oml935 AN ION GAP 11 08/04/2015 Comp Metabolic Wsm387 GL UCOSE 177 mg/dL 08/04/2015 Comp Metabolic Mnt785 Cr eat 1.0 mg/dL 08/04/2015 Comp Metabolic Qli499 eG FR 64 ml/min/1.73m2 08/04 Comp Metabolic Ens013 BUN 35 mg/dL 08/04/2015 Comp Metabolic Vxq941 B/ C Ratio 36.8 Ratio 08/04/2015 Comp Metabolic Rbm539 CA LCIUM 8.5 mg/dL 08/04/2015 Comp Metabolic Gwx463 AL K PHOS 57 U/L 08/04/2015 Comp Metabolic Nxz484 T(SGOT) 21 U/L 08/04/2015 Comp Metabolic Igw204 AL T(SGPT) 63 U/L 08/04/2015 Comp Metabolic Etv356 BI LI T 0.3 mg/dL 08/04/2015 Comp Metabolic Mnj560 AL BUMIN 3.1 g/dL 08/04/2015 Comp Metabolic Rkr173 TP RO 5.1 g/dL 08/04/2015 Comp Metabolic Rly748 GL OB 2.0 g/dL 08/04/2015 Comp Metabolic Lcb931 A/ G Ratio 1.6 Ratio 08/04/2015 Comp Metabolic Szg325 Os mo 290 mOsmo 08/04/2015 Cpk Ord61 CPK 52 U/L 08/04/2015 Random Urine Protein/Creatinine Ratio Iwe1602 U Prot 8.5 mg/dl 05/27/2015 Random Urine Protein/Creatinine Ratio Ley4552 U CREAT 201.0 mg/dL 05/27/2015 Random Urine Protein/Creatinine Ratio Afg3002 R MTP/Creat Ratio 0.04 05/27/2015 Urinalysis Ord28 [...] hours from collection if refrigerated) 05/27/2015 Renal Wkm962 NA 136 mEq/L 05/26/2015 Renal Qoh790 K 3.3 mEq/L 05/26/2015 Renal Bml518 CL 99 mEq/L 05/26/2015 Renal Gwt802 CO2 25.0 mEq/L 05/26/2015 Renal Laf929 ANION GAP 15 05/26/2015 Renal Rvn213 Osmo 274 mOsmo 05/26/2015 Renal Laq213 GLUCOSE 106 mg/dL 05/26/2015 Renal Yjr100 BUN 17 mg/dL 05/26/2015 Renal Ewq390 Creat 1.4 mg/dL 05/26/2015 Renal Eri731 eGFR 40 ml/min/1.73m2 05/26/2015 Renal Gdp505 B/C Ratio 12.0 Ratio 05/26/2015 Renal Ljp234 CALCIUM 9.3 mg/dL 05/26/2015 Renal Uiz681 PHOS 3.4 mg/dL 05/26/2015 Renal Spo774 ALBUMIN 3.4 g/dL 05/26/2015 Cbc With Differential [...] Ord2 RDW 14.3 % 04/21/2015 Free T4 Wos698 FREE T4 0.91 ng/dL 04/21/2015 %Hba1C Lnf080 % HbA1c 40677-1 5.8 % 04/21/2015 %Hba1C Vny399 Gluc Ave 120 mg/dL 04/21/2015 Comp Metabolic Tyi439 NA 137 mEq/L 04/21/2015 Comp Metabolic Lol143 K 3.6 mEq/L 04/21/2015 Comp Metabolic Tsd584 CL 98 mEq/L 04/21/2015 Comp Metabolic Pdt804 CO2 25.0 mEq/L 04/21/2015 Comp Metabolic Phl713 AN ION GAP 18 04/21/2015 Comp Metabolic Ocn871 GL UCOSE 83 mg/dL 04/21/2015 Comp Metabolic Sxg590 Cr eat 1.6 mg/dL 04/21/2015 Comp Metabolic Vup972 eG FR 36 ml/min/1.73m2 04/21 Comp Metabolic Mdt710 BUN 28 mg/dL 04/21/2015 Comp Metabolic Zaw287 B/ C Ratio 17.9 Ratio 04/21/2015 Comp Metabolic Unz271 CA LCIUM 9.5 mg/dL 04/21/2015 Comp Metabolic Nae854 AL K PHOS 60 U/L 04/21/2015 Comp Metabolic Vnr817 T(SGOT) 22 U/L 04/21/2015 Comp Metabolic Fkt542 AL T(SGPT) 10 U/L 04/21/2015 Comp Metabolic Ldk588 BI LI T 0.4 mg/dL 04/21/2015 Comp Metabolic Lib814 AL BUMIN 4.0 g/dL 04/21/2015 Comp Metabolic Ied506 TP RO 6.8 g/dL 04/21/2015 Comp Metabolic Cat426 GL OB 2.8 g/dL 04/21/2015 Comp Metabolic Kzz870 A/ G Ratio 1.4 Ratio 04/21/2015 Comp Metabolic Zbe636 Os mo 278 mOsmo 04/21/2015 Tsh Ord6 [...] Respiratory dyspnea on exertion 12/16/2015 Respiratory dyspnea /06/2015 Gastrointestinal No abdominal pain 12/16/2015 Gastrointestinal No [...] Respiratory dyspnea on exertion 10/30/2015 Respiratory dyspnea 050 10/2015 Gastrointestinal No abdominal pain 10/30/2015 Gastrointestinal [...] erythema 03/02/2017 None Full Exam - General 1995 Lymphatic neck nodes Overall: posterior cervical chain [...] time 08/30/2016 None Full Exam - General 1995 Psychiatric speech Overall: normal quality, no aphasia [...] Procedure Codes Date THER/PROPH/DIAG INJ SC/IM CPT-4: 33233 06/22/2017 TRIAMCINOLONE ACET I [place] NOS CPT-4: J3301 06/22/2017 THER/PROPH/DIAG INJ SC/IM CPT-4: 83675 08/04/2015 TRIAMCINOLONE ACET I [place] NOS CPT-4: J3301 08/04/2015 Vital Signs Date Vital 10/12/2018 Blood Pressure 1: 110/74 Code: 8480-6 Heart Rate 1: 105 bpm Height: 5'1" SpO2: 95% Weight: 09/13/2018 Blood Pressure 1: 156/86 Code: 8480-6 BMI: 32.3 Code: 95583-3 Heart Rate 1: 90 bpm Height: 5'1" SpO2: 98% Weight: 171 lbs 05/04/2018 Blood Pressure 1: 158/88 Code: 8480-6 BMI: 33.3 Code: 34328-4 Heart Rate 1: 63 bpm Height: 5'1" SpO2: 98% Weight: 176 lbs 01/10/2018 Blood Pressure 1: 138/88 Code: 8480-6 BMI: 31.9 Code: 38950-8 Heart Rate 1: 78 bpm Height: 5'1" SpO2: 99% Weight: 169 lbs 12/06/2017 Blood Pressure 1: 158/98 Code: 8480-6 BMI: 32.3 Code: 11888-6 Heart Rate 1: 60 bpm Height: 5'1" SpO2: 100% Weight: 171 lbs 06/22/2017 Blood Pressure 1: 168/92 Code: 8480-6 BMI: 32.6 Code: 98019-5 Heart Rate 1: 133 bpm Height: 5'1" SpO2: 97% Temperature: 37.6 (C ) / 99.7 (F) Weight: 172 lbs 8 oz 03/02/2017 Blood Pressure 1: 168/90 Code: 8480-6 BMI: 35.0 Code: 40262-1 Heart Rate 1: 80 bpm Height: 5'1" SpO2: 94% Weight: 185 lbs 01/24/2017 Blood Pressure 1: 130/68 Code: 8480-6 BMI: 35.3 Code: 99546-3 Heart Rate 1: 66 bpm Height: 5'1" SpO2: 98% Weight: 187 lbs 10/13/2016 Blood Pressure 1: 136/74 Code: 8480-6 BMI: 35.1 Code: 80092-4 Heart Rate 1: 71 bpm Height: 5'1" SpO2: 97% Weight: 186 lbs 08/30/2016 Blood Pressure 1: 128/80 Code: 8480-6 BMI: 35.0 Code: 59948-5 Heart Rate 1: 75 bpm Height: 5'1" SpO2: 96% Weight: 185 lbs 8 oz 07/02/2016 Blood Pressure 1: 140/78 Code: 8480-6 Heart Rate 1: 63 bpm Height: 5'1" SpO2: 98% 06/24/2016 Blood Pressure 1: 148/100 Code: 8480-6 BMI: 34.2 Code: 72501-8 Heart Rate 1: 110 bpm Height: 5'1" SpO2: 94% Weight: 181 lbs 05/04/2016 Blood Pressure 1: 150/90 Code: 8480-6 Blood Pressure 1: 134/82 Code: 8480-6 BMI: 34.6 Code: 52809-3 Heart Rate 1: 74 bpm Height: 5'1" SpO2: 98% Weight: 183 lbs 04/06/2016 Blood Pressure 1: 156/92 Code: 8480-6 Blood Pressure 1: 158/88 Code: 8480-6 BMI: 34.8 Code: 57856-3 Heart Rate 1: 69 bpm Height: 5'1" SpO2: 97% Weight: 184 lbs 03/18/2016 Blood Pressure 1: 148/90 Code: 8480-6 BMI: 35.1 Code: 98831-6 Heart Rate 1: 106 bpm Height: 5'1" SpO2: 94% Weight: 186 lbs 03/11/2016 Blood Pressure 1: 140/90 Code: 8480-6 BMI: 35.1 Code: 08145-7 Heart Rate 1: 103 bpm Height: 5'1" SpO2: 96% Weight: 186 lbs 02/24/2016 Blood Pressure 1: 130/80 Code: 8480-6 BMI: 34.4 Code: 74424-6 Heart Rate 1: 110 bpm Height: 5'1" SpO2: 96% Weight: 182 lbs 12/16/2015 Blood Pressure 1: 144/98 Code: 8480-6 BMI: 33.8 Code: 63496-1 Heart Rate 1: 97 bpm Height: 5'1" SpO2: 98% Weight: 179 lbs 10/30/2015 Blood Pressure 1: 138/88 Code: 8480-6 BMI: 33.6 Code: 58272-6 Heart Rate 1: 88 bpm Height: 5'1" SpO2: 98% Weight: 178 lbs 09/23/2015 Blood Pressure 1: 152/94 Code: 8480-6 BMI: 32.7 Code: 52901-8 Heart Rate 1: 83 bpm Height: 5'1" SpO2: 97% Weight: 173 lbs 09/10/2015 Blood Pressure 1: 136/82 Code: 8480-6 BMI: 32.1 Code: 69710-8 Heart Rate 1: 105 bpm Height: 5'1" SpO2: 97% Weight: 170 lbs 08/12/2015 Blood Pressure 1: 132/70 Code: 8480-6 BMI: 31.2 Code: 87066-6 Heart Rate 1: 88 bpm Height: 5'1" SpO2: 95% Temperature: 36.7 (C ) / 98.0 (F) Weight: 165 lbs 08/04/2015 Blood Pressure 1: 136/80 Code: 8480-6 BMI: 31.0 Code: 64149-6 Heart Rate 1: 110 bpm Height: 5'1" SpO2: 98% Weight: 164 lbs 05/16/2015 Blood Pressure 1: 138/88 Code: 8480-6 BMI: 32.9 Code: 67573-0 Heart Rate 1: 87 bpm Height: 5'1" SpO2: 90% Weight: 174 lbs 05/12/2015 BMI: 31.7 Code: 25264-2 Height: 5'1" Weight: 168 lbs 04/21/2015 Blood Pressure 1: 124/82 Code: 8480-6 BMI: 32.1 Code: 03097-8 Heart Rate 1: 87 bpm Height: 5'1" [...] of the thyroid 12/06/2017 None hypothyroid Quality chrome plater marley 12/06/2017 None hypothyroid Onset and Resolution [...] of the thyroid 08/30/2016 None hypothyroid Quality chrome plater marley 08/30/2016 None hypothyroid Onset and Resolution [...] of the thyroid 05/04/2016 None hypothyroid Quality chrome plater marley 05/04/2016 None hypothyroid Onset and Resolution [...] of the thyroid 04/06/2016 None hypothyroid Quality chrome plater marley 04/06/2016 None hypothyroid Onset and Resolution [...] Alleviating Factors medication 12/16/2015 None hypothyroid Quality chrome plater marley 12/16/2015 None hypothyroid Location at the [...] Loca tion Codes Date EST. PATIENT, LEVEL III Diagnosis: Chronic kidney disease, stage 3 (moderate)[ICD10: N18.3] Diagnosis: Essential (primary) hypertension[ICD10: I10] Diagnosis: Encounter for follow-up examination after completed treatment for conditions other than malignant neoplasm[ICD10: Z09] Britney Maya MD, [facility] CPT-4: 56160 10/12/2018 77046 EST. PATIENT, LEVEL III Diagnosis: Hypokalemia[ICD10: E87.6] Diagnosis: Interstitial pulmonary disease, unspecified[ICD10: J84.9] Britney Maya MD, [facility] CPT-4: 15469 09/13/2018 00230 EST. PATIENT, LEVEL IV Diagnosis: Essential (primary) hypertension[ICD10: I10] Diagnosis: Interstitial pulmonary disease, unspecified[ICD10: J84.9] Diagnosis: Chronic kidney disease, stage 3 (moderate)[ICD10: N18.3] Diagnosis: Mixed hyperlipidemia[ICD10: E78.2] Britney Maya MD, [facility] CPT-4: 27350 05/04/2018 93707 EST. PATIENT, LEVEL IV Diagnosis: Essential (primary) hypertension[ICD10: I10] Diagnosis: Interstitial pulmonary disease, unspecified[ICD10: J84.9] Diagnosis: Chronic kidney disease, stage 3 (moderate)[ICD10: N18.3] Diagnosis: Mixed hyperlipidemia[ICD10: E78.2] Britney Maya MD, [facility] CPT-4: 56165 01/10/2018 36037 EST. PATIENT, LEVEL IV Diagnosis: Other specified hypothyroidism[ICD10: E03.8] Diagnosis: Essential (primary) hypertension[ICD10: I10] Britney Maya MD, [facility] CPT-4: 23434 12/06/2017 80859 EST. PATIENT, LEVEL IV Diagnosis: Other malaise[ICD10: R53.81] Diagnosis: Other fatigue[ICD10: R53.83] Britney Maya MD, [facility] CPT-4: 62884 06/22/2017 01618 EST. PATIENT, LEVEL IV Diagnosis: Acute laryngopharyngitis[ICD10: J06.0] Diagnosis: Other acute sinusitis[ICD10: J01.80] Diagnosis: Other allergic rhinitis[ICD10: J30.89] Britney Maya MD, [facility] CPT-4: 99931 03/02/2017 06218 EST. PATIENT, LEVEL IV Diagnosis: Generalized hyperhidrosis[ICD10: R61] Diagnosis: Other acute sinusitis[ICD10: J01.80] Diagnosis: Other fatigue[ICD10: R53.83] Diagnosis: Interstitial pulmonary disease, unspecified[ICD10: J84.9] Britney Maya MD, [facility] CPT-4: 73038 01/24/2017 59632 EST. PATIENT, LEVEL IV Diagnosis: Acute laryngopharyngitis[ICD10: J06.0] Diagnosis: Other acute sinusitis[ICD10: J01.80] Britney Maya MD, [facility] CPT- 4: 03799 10/13/2016 ([id number]) 15453 EST. P ATIENT, LEVEL IV Diagnosis: Essential (primary) hypertension[ICD10: I10] Diagnosis: Drug-induced polyneuropathy[ICD10: G62.0] Diagnosis: Impaired fasting glucose[ICD10: R73.01] Catie Maya MD, [facility] CPT-4: 92821 08/30/2016 45279 EST. PATIENT, LEVEL IV Diagnosis: Pain in thoracic spine[ICD10: M54.6] Diagnosis: Pain in left shoulder[ICD10: M25.512] Diagnosis: Zoster without complications[ICD10: B02.9] Britney Maya MD, [facility] CPT-4: 30108 07/02/2016 77075 EST. PATIENT, LEVEL III Diagnosis: Other specified hypothyroidism[ICD10: E03.8] Diagnosis: Menopausal and female climacteric states[ICD10: N95.1] Diagnosis: Essential (primary) hypertension[ICD10: I10] Britney Maya MD, [facility] CPT-4: 15626 06/24/2016 ([id number]) 78102 EST. P ATIENT, LEVEL IV Diagnosis: Essential (primary) hypertension[ICD10: I10] Diagnosis: Atrophy of thyroid (acquired)[ICD10: E03.4] Diagnosis: Pain in left foot[ICD10: M79.672] Meghana Maya MD, [facility] CPT-4: 82853 05/04/2016 ([id number]) 68596 EST. P ATIENT, LEVEL IV Diagnosis: Essential (primary) hypertension[ICD10: I10] Diagnosis: Pain in left leg[ICD10: M79.605] Diagnosis: Pain in left foot[ICD10: M79.672] Diagnosis: Atrophy of thyroid (acquired)[ICD10: E03.4] Meghana Maya MD, C CPT-4: 15286 04/06/2016 ([id number]) 88369 EST. P ATIENT, LEVEL III Diagnosis: Essential (primary) hypertension[ICD10: I10] Diagnosis: Localized edema[ICD10: R60.0] Catie Maya MD, [facility] CPT- 4: 83321 03/18/2016 ([id number]) 31633 EST. P ATIENT, LEVEL III Diagnosis: Essential (primary) hypertension[ICD10: I10] Diagnosis: Pain in left foot[ICD10: M79.672] Catie Maya MD, [facility] CPT- 4: 39107 03/11/2016 ([id number]) 38085 EST. P ATIENT, LEVEL III Diagnosis: Localized edema[ICD10: R60.0] Diagnosis: Essential (primary) hypertension[ICD10: I10] Catie Maya MD, [facility] CPT-4: 09271 02/24/2016 ([id number]) 37748 EST. P ATIENT, LEVEL IV Diagnosis: Hypothyroidism, unspecified[ICD10: E03.9] Diagnosis: Essential (primary) hypertension[ICD10: I10] Meghana Maya MD, C CPT-4: 87916 12/16/2015 ([id number]) 51141 EST. P ATIENT, LEVEL III Diagnosis: Essential (primary) hypertension[ICD10: I10] Diagnosis: Hypothyroidism, unspecified[ICD10: E03.9] Meghana Maya MD, LL C CPT-4: 08988 10/30/2015 ([id number]) 44965 EST. P ATIENT, LEVEL IV Diagnosis: Diarrhea, unspecified[ICD10: R19.7] Diagnosis: Essential (primary) hypertension[ICD10: I10] Meghana Maya MD, [facility] CPT-4: 27236 09/23/2015 ([id number]) 86247 EST. P ATIENT, LEVEL III Diagnosis: Essential (primary) hypertension[ICD10: I10] Diagnosis: Diarrhea, unspecified[ICD10: R19.7] Meghana Maya MD, [facility] CPT- 4: 76204 09/10/2015 ([id number]) 33361 EST. P ATIENT, LEVEL III Diagnosis: Acute maxillary sinusitis, unspecified[ICD10: J01.00] Diagnosis: Myositis, unspecified[ICD10: M60.9] Meghana Maya MD, [facility] CPT- 4: 51158 08/12/2015 ([id number]) 39802 EST. P ATIENT, LEVEL IV Diagnosis: Essential (primary) hypertension[ICD10: I10] Diagnosis: Pain in left leg[ICD10: M79.605] Diagnosis: Other myositis, multiple sites[ICD10: M60.89] Diagnosis: Hypothyroidism, unspecified[ICD10: E03.9] Meghana Maya MD, [facility] CPT-4: 13197 08/04/2015 59884 EST. PATIENT, LEVEL III Diagnosis: Dyspnea, unspecified[ICD10: R06.00] Diagnosis: Essential (primary) hypertension[ICD10: I10] Meghana Maya MD, [facility] CPT-4: 17833 05/16/2015 ([id number]) 52923 EST. P ATIENT, LEVEL II Diagnosis: Dyspnea, unspecified[ICD10: R06.00] Meghana Maya MD, [facility] CPT- 4: 40425 05/12/2015 ([id number]) OFFICE VISI , [facility] - LEVEL 4 Diagnosis: Essential (primary) hypertension[ICD10: I10] Diagnosis: Impaired fasting glucose[ICD10: R73.01] Diagnosis: Mixed hyperlipidemia[ICD10: E78.2] Diagnosis: Hypothyroidism, unspecified[ICD10: E03.9] Diagnosis: Encounter for screening mammogram for malignant neoplasm of breast[ICD10: Z12.31] Catie Maya MD, [facility] CPT-4: 79781 04/21/2015 Plan of Care Planned Activity Notes C odes Status Date Appointment: Britney Bower WPtel: [facility]0 [facility] (30 min) Complex 10/26/2018 Appointment: Britney Bower WPtel: [address] [place], [place] [phone] Nurse Visit 10/17/2018 Visit Plan: Hypertension - [...] to monitor - pt has seen a tail end rider in the 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 Hospital follow up - This was a follow up appointment from the patient's hospitalization during which time Dr. Maya formulated the assessment and plan for the follow up on this patient's medical condition. 10/12/2018 Appointment: Britney Bower WPtel: [address] [place], [place] [phone] (30 min) Complex 10/12/2018 Patient Education: Patient Medication Summary Completed 10/12/2018 Visit Plan: Hypokalemia - will send RX for potassium and monitor labs Interstitial lung disease - pt is to follow up with specialist and notify clinic with any changes in current treatment plan 09/13/2018 Appointment: Britney Bower WPtel: [facility]0 [facility] (30 min) Complex 09/13/2018 Patient Education: [...] plan 05/04/2018 [phone] ([facility] min) Moderate 05/04/2018 Patient [...] treatment plan 01/10/2018 Appointment: [phone] ([facility] min) Complex 01/10/2018 Patient Education: Patient [...] of control. 12/06/2017 Appointment: Brit[facility]ower [facility]el[facility] (15 min) Moderate 12/06/2017 Patient Education: Patient Medication Summary Completed 12/06/2017 Visit Plan: URI - Pt advised to inc rease fluids, vitamin C. Discussed natural and expected course of this diagnosis and need to alert me if symptoms do not follow expected course, or if any worse. RX sent to patient's pharmacy. 06/22/2017 Appointment: Britney Bower [facility]Ptel[facility] (15 min) Moderate 06/22/2017 Patient [...] the nasal steroid allergy spray. 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 Maya - will increase clonidine to BID - pt is to consider referral to dermatology - notify clinic if symptoms do not improve, if they worsen, or with any other questions or concerns. 01/24/2017 Appointment: Britney Bower WPtel: [address] [place] [phone] (30 min) Complex 01/24/2017 Patient [...] show improvement. 10/13/2016 Appointment: Britney Bower WPtel: [address] [place], [place] [phone] (30 min) Complex 10/13/2016 Patient Education: Patient [...] blood pressure readings at home. 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 07/02/2016 Appointment: [phone] ([facility] min) Complex 07/02/2016 Patient [...] of control. 06/24/2016 Appointment: [facility] [phone] [facility] [place] (30 min) Complex 06/24/2016 Patient Education: Patient Medication Summary Completed 06/24/2016 Patient Education: Obesity Completed 06/24/2016 Patient Education: Hypertension Completed 06/24/2016 Patient Education: Patient Medication Summary Completed 05/14/2016 Care Plan: SCREENINGMAMMOGRAPHYDIGITAL LOINC : 24209-6 Pending 05/14/2016 Visit Plan: Hypertension - well [...] painful. 05/04/2016 [facility]ment[phone] [place] (15 min) Moderate 05/04/2016 Patient Education: [...] medication. 04/06/2016 Appointment: [phone] [facility] [place] (15 min) Moderate 04/06/2016 Patient Education: Patient Medication Summary Completed 04/06/2016 Patient Education: Obesity Completed 04/06/2016 Care Plan: Referral Order SNOMED-CT : [id number] Pending 04/06/2016 Visit Plan: Edema-improved with low [...] acute concerns. 03/18/2016 Appointment: Catie Shoemaker WPtel[phone] [place] (15 min) Moderate 03/18/2016 [...] xray left foot-recommend she follow up with sales office manager at regarding left foot pain/numbness/weakness. Patient has noticed worsening symptoms since decreasing prednisone. 03/11/2016 Appointment: Catie Shoemaker WPtel: [phone] [place] (15 min) Moderate 03/11/2016 Patient Education: Patient Medication Summary Completed 03/11/2016 Patient Education: Obesity Completed 03/11/2016 Appointment: Catie Shoemaker WPtel: [phone] [place] (30 min) Complex 03/09/2016 Visit Plan: [...] daily 02/24/2016 Appointment: Catie Shoemaker WPtel: [phone] [phone] [place] (15 min) Moderate 02/24/2016 Patient Education: Patient Medication Summary Completed 02/24/2016 Patient Education: Obesity Completed 02/24/2016 Patient Education: Hypertension Completed 02/24/2016 Appointment: Meghana Maya WPtel: [phone] [facility] [place] (15 min) Moderate 02/23/2016 Visit Plan: [...] WPtel: [phone] [facility] [place] (15 min) Moderate 12/16/2015 Patient Education: [...] min) Complex 10/23/2015 Appointment: Meghana Maya WPtel: [address] [place] [address] (15 min) Moderate 10/23/2015 Visit Plan: Hypertension [...] at home. 09/10/2015 Appointment: Meghana Maya WPtel: [facility] (15 min) Moderate 09/10/2015 Patient Education: Patient [...] min) Complex 07/24/2015 Appointment: Zulma Meghana WPtel: [facility] (15 min) Moderate 07/24/2015 Appointment: Lab Draw [...] Education: Hypertension Completed 04/21/2015 Care Plan: SCREENINGMAMMOGRAPHYDIGITAL [facility] : 80332-7 Ordered 04/21/2015 Appointment: [facility]hana [phone] [facility] [place] ([place] New Patient 04/01/2015 Referral: Sharon Duran Referral Appointment Requested Instructions Comment . Hypertension - wel l controlled - [...] any changes in the current treatment plan DECREASE AMLODIPINE TO 1/2 [...] daily. Add beta anuj-metoprolol 25mg daily . URI - Pt advised t o [...] to cardiology and for pulmonary function testing. PATIENT IS TO CHECK BLOOD PRESSURE AND [...] xray left foot-recommend she follow up with sales office manager at regarding left foot pain/numbness/weakness. Patient has [...] change in blood pressure readings at home. Sweats/correction use of steroids-check Hgb A1C Peripheral neuropathy-improved with [id number] Dr Duran for tarsel tunnel syndrome . [...] Call if symptoms do not show improvement. kenalog today. URI - Pt advised to [...] [facility] AT [address] INCREASE THE METOPROLOL TO 1.5 PILLS [...] to monitor - pt has seen a tail end rider in the 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 Hospital follow up - This was a follow up appointment from the patient's hospitalization during which time Dr. Maya formulated the assessment and plan for the follow up on this patient's medical condition. 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 . Hypothyroidism - p t with chronic [...]
--- OUTSIDE RECORDS SUMMARY | 2019-08-14 06:24 | XMS REPORT | CCD ---
Author Author Carolann Shoemaker Organization Meghana Maya MD, [facility] Address [facility] [place] [address] Phone Care Team Providers Care Supervisor Propellant Charge Loading Name Role Phone PP Unavailable CCM Unavailable Summary Purpose Interface Exchange Insurance Providers Payer name Policy type / Coverage type Covered alliance party ID Effective Begin Date Effective End Date MEDICA Commercial Insurance [id number] Unknown Family history Mother Diagnosis Age At Onset Hypertension Unknown Breast cancer Unknown Osteoporosis Unknown Father Diagnosis Age At Onset kidney disease Unknown Cancer Unknown Hyperlipidemia Unknown Social History Social History Element Codes Description Effective Dates Marital status Unknown D ivorced 04/21/2015 Number of children Unknown 1 04/21/2015 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 04/21/[address]: [id number] Never smoker 04/21/2015 Alcohol history Unknown occasionally drinks alcohol 04/21/2015 Allergies, Adverse Reactions, Alerts Substance Reaction Codes Entered Date Inactivated Date Status [id number] REDU CTASE INHIBITORS myalgias Unknown 016 No Inactive Date Active Past Medical History Illness Codes Condition Status Onset Date Resolved Date Acute laryngopharyng itis ICD-9: 465.0 ICD-10: J06.0 Active 10/13/2016 Unknown Other acute sinusitis ICD-9: 461.8 ICD-10: J01.80 Active 10/13/2016 Unknown 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 ICD-10: G62.0 Active 08/30/2016 Unknown Essential (primary) hypertension ICD-9: 401.1 ICD-10: I10 Active 08/30/2016 Unknown Impaired fasting glu cose [...] ICD-10: N95.1 Active 06/23/2016 Unknown Other specified hypo thyroidism ICD-9: 244.8 ICD-10: E03.8 Active 06/23/2016 Unknown Encounter for screen ing [...] Churg Parrish Unknown Active 06/30/2015 Unknow n Chronic kidney disea se, stage 3 (moderate) [...] E78.2 Active 04/20/2015 Unknown Problems Condition Codes Effectiv e Dates Condition Status Acute laryngopharyng itis ICD-9: 465.0 ICD-10: J06.0 10/13/2016 Active Other acute sinusitis ICD-9: 461.8 ICD-10: J01.80 10/13/2016 Active 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 ICD-10: G62.0 08/30/2016 Active Essential (primary) hypertension ICD-9: 401.1 ICD-10: I10 08/30/2016 Active Impaired fasting glu cose ICD-9: 790.21 ICD-10: R73.01 04/20/2015 Active Pain in left shoulder ICD-9: 719.41 ICD-10: M25.512 07/01/2016 Active Pain in thoracic spine ICD-9: 724.1 ICD-10: M54.6 07/01/2016 Active Zoster without compl ications ICD-9: 053.9 ICD-10: B02.9 07/01/2016 Active Essential (primary) hypertension ICD-9: 401.9 ICD-10: I10 06/23/2016 Active Menopausal and femal e climacteric states ICD-9: 627.2 ICD-10: N95.1 06/23/2016 Active Other specified hypo thyroidism ICD-9: 244.8 ICD-10: E03.8 06/23/2016 Active Encounter for screen ing mammogram [...] Churg Parrish Unknown 06/30/2015 Active Chronic kidney disea se, stage 3 (moderate) ICD-9: 585.3 ICD-10: N18.3 06/05/2015 Active Dyspnea, unspecified ICD-9: 786.09 ICD-10: R06.00 05/15/2015 Active Hypertension Unknown 04/21/2015 Active Hypothryroidism Unknown 04/21/2015 Active Encounter for screen ing mammogram for malignant neoplasm of breast ICD-9: V76.11 ICD-10: Z12.31 04/20/2015 Active Mixed hyperlipidemia ICD-9: 272.2 ICD-10: E78.2 04/20/2015 Active Medications Medication Codes Instruc tions Start Date Stop Date Sta tus Fill Instructions potassium chloride E R 10 mEq tablet,extended release RxNorm: 432818 TAKE ONE TABLET BY MOUTH DAILY 12/16/2016 01/14/2017 Active venlafaxine ER 150 m g capsule,extended release 24 hr RxNorm: 571236 TAKE ONE CAPSULE BY MOUTH DAILY 11/18/2016 02/15/2017 Active clonidine HCl 0.1 mg tablet RxNorm: 097369 TAKE ONE TABLET BY [facility] EVERY NIGHT AT BEDTIME 11/08/2016 01/06/2017 Active clonidine HCl 0.1 mg tablet RxNorm: 093304 1 Tablet(s) BID 10/19/2016 01/16/2017 Active potassium chloride E R 10 mEq tablet,extended release RxNorm: 595732 TAKE ONE TABLET BY MOUTH DAILY 10/15/2016 11/13/2016 Inactive Zithromax Z-Jacek 250 mg tablet RxNorm: 819371 1 Tablet(s) PO UD 10/13/2016 No Stop Date Active potassium chloride E R 10 mEq tablet,extended release RxNorm: 507426 TAKE ONE TABLET BY MOUTH DAILY 10/12/2016 10/14/2016 Inactive potassium chloride E R 10 mEq tablet,extended release RxNorm: 073341 Tablet(s) BID TAKE ONE TABLET BY MOUTH TWICE DAILY 09/17/2016 10/11/2016 Inactive potassium chloride E R 10 mEq tablet,extended release RxNorm: 083412 TAKE ONE TABLET BY MOUTH DAILY 09/13/2016 09/16/2016 Inactive clonidine HCl 0.1 mg tablet RxNorm: 590834 Tablet(s) TAKE ONE TA BLET BY MOUTH EVERY NIGHT AT BEDTIME 08/12/2016 10/18/2016 Inactive gabapentin 300 mg ca psule RxNorm: 702336 1 Capsule(s) PO QHS 08/10/2016 No Stop Date Active venlafaxine ER 150 m g capsule,extended release 24 hr RxNorm: 197127 TAKE ONE CAPSULE BY MOUTH DAILY 08/09/2016 11/06/2016 Inactive metoprolol succinate ER 50 mg tablet,extended release 24 hr RxNorm: 343289 TAKE ONE TABLET BY MOUTH DAILY 07/29/2016 01/24/2017 Active clonidine HCl 0.1 mg tablet RxNorm: 920421 TAKE ONE TABLET BY [facility] EVERY NIGHT AT BEDTIME 07/21/2016 08/11/2016 Inactive potassium chloride E R 10 mEq tablet,extended release RxNorm: 053465 TAKE ONE TABLET BY MOUTH DAILY 07/14/2016 09/11/2016 Inactive Prescriber not associated w ith this practice or location capsaicin 0.1 % topi reagan cream RxNorm: 281354 1 Application TOP TID as needed 07/02/2016 No Stop Date Active acyclovir 400 mg tablet RxNorm: 119262 2 Tablet(s) PO QID 07/02/2016 07/11/2016 Inactive cyclobenzaprine 5 mg tablet RxNorm: 435205 1-2 Tablet(s) PO TID as needed 07/02/2016 07/06/2016 In active Protonix 40 mg table t,delayed release RxNorm: 537428 TAKE ONE TABLET BY [facility] DAILY WHILE ON PREDNISONE 06/29/2016 12/25/2016 Active clonidine HCl 0.1 mg tablet RxNorm: 384339 1 Tablet(s) PO QHS 06/25/2016 07/20/2016 Inactive calcium carbonate 50 0 mg calcium (1,250 mg) tablet RxNorm: 604392 TAKE ONE TABLET BY MOUTH DAILY WHILE ON PREDNISONE. MAY STOP TAKING WHEN PREDNISONE IS COMPLETE 06/01/2016 09/28/2016 In active Vitamin D3 1,000 uni t tablet RxNorm: 297903 1 Tablet(s) PO daily . May stop taking once prednisone is complete. 04/26/2016 10/22/2016 Inactive metoprolol succinate ER 50 mg tablet,extended release 24 hr RxNorm: 673515 1.5 Tablet(s) PO daily 04/06/2016 06/23/2016 Inactive prednisone 10 mg tablet RxNorm: 891856 1 Tablet(s) PO daily 04/02/2016 03/27/2017 Active metoprolol succinate ER 50 mg tablet,extended release 24 hr RxNorm: 403727 1 Tablet(s) PO daily 03/18/2016 04/05/2016 Inactive amlodipine 10 mg tablet RxNorm: 472971 1/2 Tablet(s) PO daily 02/24/2016 06/21/2016 Inactive metoprolol succinate ER 25 mg tablet,extended release 24 hr RxNorm: 170890 1 Tablet(s) PO daily 02/24/2016 03/16/2016 Inactive calcium carbonate 50 0 mg calcium (1,250 mg) tablet RxNorm: 721332 TAKE ONE TABLET BY MOUTH DAILY WHILE ON PREDNISONE. MAY STOP TAKING WHEN PREDNISONE IS COMPLETE 02/16/2016 05/15/2016 In active Protonix 40 mg table t,delayed release RxNorm: 039143 TAKE ONE TABLET BY [facility] DAILY WHILE ON PREDNISONE 02/10/2016 05/09/2016 Inactive venlafaxine ER 150 m g capsule,extended release 24 hr RxNorm: 876542 Capsule(s) TAKE ONE CAPSULE BY MOUTH DAILY 12/10/2015 04/07/2016 Inactive levothyroxine 50 mcg tablet RxNorm: 205818 1 Tablet(s) PO daily 12/01/2015 11/24/2016 Inactive calcium carbonate 50 0 mg calcium (1,250 mg) tablet RxNorm: 086941 1 Tablet(s) PO daily 12/01/2015 01/29/2016 Inactive Vitamin D3 1,000 uni t tablet RxNorm: 528942 1 Tablet(s) PO daily 12/01/2015 03/29/2016 Inactive amlodipine 10 mg tablet RxNorm: 586558 1 Tablet(s) PO daily 11/19/2015 11/18/2015 Inactive amlodipine 10 mg tablet RxNorm: 205792 1 Tablet(s) PO daily 11/19/2015 02/23/2016 Inactive amlodipine 5 mg tablet RxNorm: 913990 1 Tablet(s) PO daily 11/17/2015 11/18/2015 Inactive venlafaxine ER 150 m g capsule,extended release 24 hr RxNorm: 557761 TAKE ONE CAPSULE BY MOUTH DAILY 11/13/2015 12/09/2015 Inactive Protonix 40 mg table t,delayed release RxNorm: 328072 1 Tablet(s) PO daily while on prednisone 2015 02/09/2016 Inactive prednisone 10 mg tablet RxNorm: 720711 2 Tablet(s) PO UD 10/30/2015 04/01/2016 Inactive 60mg for 2 days, then 50mg for 2 days, then 40mg for 2 days, then 30mg for 2 days, then 20mg for 2 days, then 10mg for 2 days, then 5mg for 2 days potassium chloride E R 10 mEq tablet,extended release RxNorm: 611281 TAKE ONE TABLET BY MOUTH DAILY 09/22/2015 12/19/2015 Inactive venlafaxine ER 150 m g capsule,extended release 24 hr RxNorm: 378104 TAKE ONE CAPSULE BY MOUTH DAILY 09/08/2015 11/06/2015 Inactive cefdinir 300 mg capsule RxNorm: 353369 1 Capsule(s) PO BID 08/20/2015 08/22/2015 Inactive cefdinir 300 mg capsule RxNorm: 317295 1 Capsule(s) PO BID 08/12/2015 08/18/2015 Inactive Kenalog 40 mg/mL jenna pension for injection RxNorm: 9001064 1 Milliliter(s) Inj 08/04/2015 08/04/2015 In active triamterene 37.5 mg- hydrochlorothiazide 25 mg tablet RxNorm: 079967 1 Tablet(s) PO BID 06/17/2015 08/03/2015 Inactive potassium chloride E R 10 mEq tablet,extended release RxNorm: 420786 1 Tablet(s) PO daily 05/30/2015 08/03/2015 Inactive Levaquin 250 mg tablet RxNorm: 288575 Tablet(s) PO UD 500 mg day one, then 250 mg day 2-7 05/27/2015 08/03/2015 Inactive prednisone 10 mg tablet RxNorm: 864492 Tablet(s) PO UD 05/27/2015 10/29/2015 Inactive 60mg for 2 days, then 50mg for 2 days, then 40mg for 2 days, then 30mg for 2 days, then 20mg for 2 days, then 10mg for 2 days, then 5mg for 2 days albuterol sulfate 1. 25 mg/3 mL solution for nebulization RxNorm: 354338 3 Milliliter(s) INH Q4-6H as needed dyspnea 05/23/2015 No Stop Date Active Zithromax 500 mg tablet RxNorm: 525615 1 Tablet(s) PO daily 05/16/2015 05/15/2015 Inactive Zithromax 500 mg tablet RxNorm: 095204 1 Tablet(s) PO daily 05/16/2015 05/20/2015 Inactive prednisone 20 mg tablet RxNorm: 674172 3 Tablet(s) PO daily 05/12/2015 05/16/2015 Inactive venlafaxine ER 150 m g capsule,extended release 24 hr RxNorm: 934394 TAKE ONE CAPSULE BY MOUTH DAILY 05/12/2015 08/09/2015 Inactive Keflex 500 mg capsule RxNorm: 690915 1 Capsule(s) PO TID 05/12/2015 05/18/2015 Inactive simvastatin 20 mg ta blet RxNorm: 819719 1 Tablet(s) PO daily 04/10/2015 04/09/2015 Inactive simvastatin 20 mg ta blet RxNorm: 929445 1 Tablet(s) PO daily 04/10/2015 08/11/2015 Inactive venlafaxine ER 150 m g capsule,extended release 24 hr RxNorm: 977113 TAKE ONE CAPSULE BY MOUTH DAILY 04/08/2015 05/07/2015 Inactive amlodipine 5 mg tablet RxNorm: 654910 1 Tablet(s) PO daily 03/07/2015 03/06/2015 Inactive amlodipine 5 mg tablet RxNorm: 317673 1 Tablet(s) PO daily 03/07/2015 07/04/2015 Inactive venlafaxine ER 150 m g capsule,extended release 24 hr RxNorm: 021741 1 Capsule(s) PO daily 01/29/2015 03/29/2015 Inactive metoprolol succinate ER 50 mg tablet,extended release 24 hr RxNorm: 277902 1 Tablet(s) PO daily No Start Date Active vitamin B complex oral RxNorm: 87660 oral No Start Date Active Co Q-10 oral RxNorm: 41494 oral No Start Date Active albuterol sulfate 1. 25 mg/3 mL solution for nebulization RxNorm: 045936 3 Milliliter(s) INH Q4-6H as needed dyspnea No Start Date 05/22/2015 Inactive levothyroxine 50 mcg tablet RxNorm: 689890 1 Tablet(s) PO daily No Start Date 11/30/2015 Inactive gabapentin 300 mg ca psule RxNorm: 316386 1 Capsule(s) PO QHS No Start Date 08/09/2016 Inactive Vitamin D3 1,000 uni t tablet RxNorm: 116019 1 Tablet(s) PO daily No Start Date 11/30/2015 Inactive Protonix 40 mg table t,delayed release RxNorm: 250428 1 Tablet(s) PO daily while on prednisone No Start Date 10/30/2015 Inactive calcium carbonate oral RxNorm: oral No Start Date 11/30/2015 Inactive potassium chloride E R 10 mEq tablet,extended release RxNorm: 189575 1 Tablet(s) PO daily No Start Date 05/29/2015 Inactive Levaquin 250 mg tablet RxNorm: 083536 Tablet(s) PO UD 500 mg day one, then 250 mg day 2-7 No Start Date 05/26/2015 Inactive triamterene 37.5 mg- hydrochlorothiazide 25 mg tablet RxNorm: 419148 1 Tablet(s) PO BID No Start Date 06/16/2015 Inactive prednisone 10 mg tablet RxNorm: 673258 Tablet(s) PO UD No Start Date 05/26/2015 Inactive 60mg for 2 days, then 50mg for 2 days, then 40mg for 2 days, then 30mg for 2 days, then 20mg for 2 days, then 10mg for 2 days, then 5mg for 2 days venlafaxine ER 150 m g capsule,extended release 24 hr RxNorm: 738400 1 Capsule(s) PO daily No Start Date 01/28/2015 Inactive Medication Administered Medication Codes Instruc tions Start Date Status Kenalog 40 mg/mL suspension for injection RxNorm: 2295130 1Milliliter 08/04/2015 N o longer Active Immunizations No Immunization data Assessments Condition Codes Effectiv e Dates Other acute sinusitis ICD-10: J01.80 ICD-9: 461.8 10/13/2016 Acute laryngopharyngitis ICD-10: J06 .0 ICD-9: 465.0 10/13/2016 Impaired fasting glucose ICD-10: R73 .01 ICD-9: 790.21 08/30/2016 Drug-induced polyneuropathy ICD-10: G62.0 ICD-9: 357.7 08/30/2016 Essential (primary) hypertension ICD -10: I10 ICD-9: 401.1 08/30/2016 Zoster without complications ICD-10: B02.9 ICD-9: 053.9 07/02/2016 Pain in thoracic spine ICD-10: M54.6 ICD-9: 724.1 07/02/2016 Pain in left shoulder ICD-10: M25.51 2 ICD-9: 719.41 07/02/2016 Menopausal and female climacteric states ICD-10: N95.1 ICD-9: 627.2 06/24/2016 Other specified hypothyroidism ICD-1 0: E03.8 ICD-9: 244.8 06/24/2016 Essential (primary) hypertension ICD -10: I10 ICD-9: 401.9 06/24/2016 Encounter for screening mammogram for ma lignant neoplasm of breast ICD-10: Z12.31 ICD-9: V76.12 05/14/2016 Atrophy of thyroid (acquired) ICD-10 : E03.4 ICD-9: 244.8 05/04/2016 Pain in left foot ICD-10: M79.672 ICD-9: 729.5 05/04/2016 Pain in left leg ICD-10: M79.605 [...] of breast ICD-10: Z12.31 ICD-9: V76.11 04/21/2015 Mixed hyperlipidemia ICD-10: E78.2 ICD-9: 272.2 04/21/2015 Reason For Visit Reason For Visit Effective Dates Notes cough 10/13/2016 hypertension 08/30/2016 shoulder pain 07/02/2016 menopausal symptoms 06/24/2016 hypertension 05/04/2016 hypertension 04/06/2016 blood pressure followup 03/18/2016 blood pressure followup 03/11/2016 edema 02/24/2016 hypertension 12/16/2015 hypertension 10/30/2015 diarrhea 09/23/2015 diarrhea 09/10/2015 nasal discharge 08/12/2015 knee pain 08/04/2015 shortness of breath 05/16/2015 hypothyroid 04/21/2015 Results Observation Observation Code Item Item Code Result Date Comp Metabolic Zgr378 NA 140 mEq/L 08/30/2016 Comp Metabolic Kfw942 K 3.3 mEq/L 08/30/2016 Comp Metabolic Tcu721 CL 104 mEq/L 08/30/2016 Comp Metabolic Vvt106 CO2 26.0 mEq/L 08/30/2016 Comp Metabolic Nzg662 AN ION GAP 13 08/30/2016 Comp Metabolic Ywr102 GL UCOSE 143 mg/dL 08/30/2016 Comp Metabolic Lxq459 Cr eat 1.3 mg/dL 08/30/2016 Comp Metabolic Wpw508 eG FR 43 ml/min/1.73m2 08/30 Comp Metabolic Ics144 BUN 19 mg/dL 08/30/2016 Comp Metabolic Uyd354 B/ C Ratio 14.3 Ratio 08/30/2016 Comp Metabolic Cvg244 CA LCIUM 10.0 mg/dL 08/30/2016 Comp Metabolic Hpx166 AL K PHOS 67 U/L 08/30/2016 Comp Metabolic Hpi849 T(SGOT) 28 U/L 08/30/2016 Comp Metabolic Ocs213 AL T(SGPT) 43 U/L 08/30/2016 Comp Metabolic Ulr238 BI LI T 0.4 mg/dL 08/30/2016 Comp Metabolic Ilj158 AL BUMIN 4.0 g/dL 08/30/2016 Comp Metabolic Pba691 TP RO 6.2 g/dL 08/30/2016 Comp Metabolic Eer343 GL OB 2.2 g/dL 08/30/2016 Comp Metabolic Yqn619 A/ G Ratio 1.8 Ratio 08/30/2016 Comp Metabolic Mzi040 Os mo 284 mOsmo 08/30/2016 %Hba1C Drw996 % HbA1c 24537-3 6.1 % 08/30/2016 %Hba1C Ghq073 Gluc Ave 128 mg/dL 08/30/2016 Free T4 Dqp812 FREE T4 0.75 ng/dL 06/25/2016 Tsh Ord6 [...] Ord90 Mag 2.1 mg/dL 12/16/2015 Free T4 Fnf410 FREE T4 0.92 ng/dL 12/16/2015 Tsh Ord6 [...] 8.7 % 08/04/2015 Cbc With Differential Ord2 [place]% 6.1 % 08/04/2015 Cbc With Differential Ord2 MCH 28.5 pg 08/04/2015 Cbc With Differential Ord2 MCHC 31.2 pg 08/04/2015 Cbc With Differential Ord2 Eos% 0.8 % 08/04/2015 Cbc With Differential Ord2 Baso% 0.1 % 08/04/2015 Cbc With Differential Ord2 PLT 286 K/ul 08/04/2015 Cbc With Differential Ord2 Neut ABS# 7.08 K/ul 08/04/2015 Cbc With Differential Ord2 RDW 18.7 % 08/04/2015 Cbc With Differential Ord2 Lymph ABS# 0.73 K/ul 08/04/2015 Cbc With Differential Ord2 [place] ABS# 0.5 K/ul 08/04/2015 Cbc With Differential Ord2 Eos ABS# 0.1 K/ul 08/04/2015 Cbc With Differential Ord2 Baso ABS# 0.0 K/ul 08/04/2015 Cbc With Differential Ord2 New Analyzer Notice Please note new ref ranges s tarting 07-09-2015 due to implemntation of new five part differential hematolgy analyzer. 08/04/2015 C-Reactive Protein Qnt Crqnt CRP 0.8 mg/dl 08/04/2015 Comp Metabolic Bgn217 NA 139 mEq/L 08/04/2015 Comp Metabolic Soy840 K 3.4 mEq/L 08/04/2015 Comp Metabolic Zpp581 CL 109 mEq/L 08/04/2015 Comp Metabolic Mth065 CO2 22.0 mEq/L 08/04/2015 Comp Metabolic Fcm985 AN ION GAP 11 08/04/2015 Comp Metabolic Avt332 GL UCOSE 177 mg/dL 08/04/2015 Comp Metabolic Fav579 Cr eat 1.0 mg/dL 08/04/2015 Comp Metabolic Ctq475 eG FR 64 ml/min/1.73m2 08/04 Comp Metabolic Brq412 BUN 35 mg/dL 08/04/2015 Comp Metabolic Jbn872 B/ C Ratio 36.8 Ratio 08/04/2015 Comp Metabolic Asm588 CA LCIUM 8.5 mg/dL 08/04/2015 Comp Metabolic Pxn498 AL K PHOS 57 U/L 08/04/2015 Comp Metabolic Rct010 T(SGOT) 21 U/L 08/04/2015 Comp Metabolic Kho817 AL T(SGPT) 63 U/L 08/04/2015 Comp Metabolic Okq920 BI LI T 0.3 mg/dL 08/04/2015 Comp Metabolic Ejo944 AL BUMIN 3.1 g/dL 08/04/2015 Comp Metabolic Rhe002 TP RO 5.1 g/dL 08/04/2015 Comp Metabolic Upw121 GL OB 2.0 g/dL 08/04/2015 Comp Metabolic Zct614 A/ G Ratio 1.6 Ratio 08/04/2015 Comp Metabolic Gsh558 Os mo 290 mOsmo 08/04/2015 Cpk Ord61 CPK 52 U/L 08/04/2015 Random Urine Protein/Creatinine Ratio Tzx3000 U Prot 8.5 mg/dl 05/27/2015 Random Urine Protein/Creatinine Ratio Jsj3984 U CREAT 201.0 mg/dL 05/27/2015 Random Urine Protein/Creatinine Ratio Zud4213 R MTP/Creat Ratio 0.04 05/27/2015 Urinalysis Ord28 [...] hours from collection if refrigerated) 05/27/2015 Renal Enk667 NA 136 mEq/L 05/26/2015 Renal Hmy090 K 3.3 mEq/L 05/26/2015 Renal Wya326 CL 99 mEq/L 05/26/2015 Renal Kyg541 CO2 25.0 mEq/L 05/26/2015 Renal Lns023 ANION GAP 15 05/26/2015 Renal Txm824 Osmo 274 mOsmo 05/26/2015 Renal Sig397 GLUCOSE 106 mg/dL 05/26/2015 Renal Jea893 BUN 17 mg/dL 05/26/2015 Renal Agt984 Creat 1.4 mg/dL 05/26/2015 Renal Qdi338 eGFR 40 ml/min/1.73m2 05/26/2015 Renal Xfo586 B/C Ratio 12.0 Ratio 05/26/2015 Renal Piq527 CALCIUM 9.3 mg/dL 05/26/2015 Renal Pkz486 PHOS 3.4 mg/dL 05/26/2015 Renal Ikl235 ALBUMIN 3.4 g/dL 05/26/2015 Cbc With Differential [...] Ord2 RDW 14.3 % 04/21/2015 Free T4 Qpi578 FREE T4 0.91 ng/dL 04/21/2015 %Hba1C Qtg014 % HbA1c 60030-7 5.8 % 04/21/2015 %Hba1C Xqt323 Gluc Ave 120 mg/dL 04/21/2015 Comp Metabolic Qnl209 NA 137 mEq/L 04/21/2015 Comp Metabolic Gtt016 K 3.6 mEq/L 04/21/2015 Comp Metabolic Zxv433 CL 98 mEq/L 04/21/2015 Comp Metabolic Kqd516 CO2 25.0 mEq/L 04/21/2015 Comp Metabolic Quf163 AN ION GAP 18 04/21/2015 Comp Metabolic Wlz999 GL UCOSE 83 mg/dL 04/21/2015 Comp Metabolic Dkg339 Cr eat 1.6 mg/dL 04/21/2015 Comp Metabolic Uys472 eG FR 36 ml/min/1.73m2 04/21 Comp Metabolic Zhf429 BUN 28 mg/dL 04/21/2015 Comp Metabolic Dry473 B/ C Ratio 17.9 Ratio 04/21/2015 Comp Metabolic Jwm476 CA LCIUM 9.5 mg/dL 04/21/2015 Comp Metabolic Kis885 AL K PHOS 60 U/L 04/21/2015 Comp Metabolic Zmc708 T(SGOT) 22 U/L 04/21/2015 Comp Metabolic Pwp969 AL T(SGPT) 10 U/L 04/21/2015 Comp Metabolic Wsb268 BI LI T 0.4 mg/dL 04/21/2015 Comp Metabolic Dti647 AL BUMIN 4.0 g/dL 04/21/2015 Comp Metabolic Tag516 TP RO 6.8 g/dL 04/21/2015 Comp Metabolic Ceu392 GL OB 2.8 g/dL 04/21/2015 Comp Metabolic Bnc062 A/ G Ratio 1.4 Ratio 04/21/2015 Comp Metabolic Pvp246 Os mo 278 mOsmo 04/21/2015 Tsh Ord6 hTSH II 2.58 uIU/mL 04/21/2015 Review of Systems System Result Effective Dates Constitutional recent illness 10/13/2016 Constitutional No fever [...] Result Effective Dates Notes Full Exam - ENT Constitutional general appearance [...] time 10/13/2016 None Full Exam - General 1995 Constitutional general appearance Development: well developed 08/30/2016 [...] dentition 08/30/2016 None Full Exam - General 1995 [...] tenderness 08/30/2016 None Full Exam - General 1995 Abdomen abdominal exam Overall: normal bowel sounds [...] Procedure Codes Date THER/PROPH/DIAG INJ SC/IM CPT-4: [id number] 08/04/2015 TRIAMCINOLONE ACET I [place] NOS CPT-4: [id number] 08/04/2015 Vital Signs Date Vital 10/13/2016 Blood Pressure 1: 136/74 Code: 8480-6 BMI: 35.1 Code: 90521-0 Heart Rate 1: 71 bpm Height: 5'1" SpO2: 97% Weight: 186 lbs 08/30/2016 Blood Pressure 1: 128/80 Code: 8480-6 BMI: 35.0 Code: 18772-8 Heart Rate 1: 75 bpm Height: 5'1" SpO2: 96% Weight: 185 lbs 8 oz 07/02/2016 Blood Pressure 1: 140/78 Code: 8480-6 Heart Rate 1: 63 bpm Height: 5'1" SpO2: 98% 06/24/2016 Blood Pressure 1: 148/100 Code: 8480-6 BMI: 34.2 Code: 00841-2 Heart Rate 1: 110 bpm Height: 5'1" SpO2: 94% Weight: 181 lbs 05/04/2016 Blood Pressure 1: 134/82 Code: 8480-6 Blood Pressure 1: 150/90 Code: 8480-6 BMI: 34.6 Code: 26123-0 Heart Rate 1: 74 bpm Height: 5'1" SpO2: 98% Weight: 183 lbs 04/06/2016 Blood Pressure 1: 158/88 Code: 8480-6 Blood Pressure 1: 156/92 Code: 8480-6 BMI: 34.8 Code: 64850-5 Heart Rate 1: 69 bpm Height: 5'1" SpO2: 97% Weight: 184 lbs 03/18/2016 Blood Pressure 1: 148/90 Code: 8480-6 BMI: 35.1 Code: 39929-9 Heart Rate 1: 106 bpm Height: 5'1" SpO2: 94% Weight: 186 lbs 03/11/2016 Blood Pressure 1: 140/90 Code: 8480-6 BMI: 35.1 Code: 00277-3 Heart Rate 1: 103 bpm Height: 5'1" SpO2: 96% Weight: 186 lbs 02/24/2016 Blood Pressure 1: 130/80 Code: 8480-6 BMI: 34.4 Code: 07664-8 Heart Rate 1: 110 bpm Height: 5'1" SpO2: 96% Weight: 182 lbs 12/16/2015 Blood Pressure 1: 144/98 Code: 8480-6 BMI: 33.8 Code: 61654-3 Heart Rate 1: 97 bpm Height: 5'1" SpO2: 98% Weight: 179 lbs 10/30/2015 Blood Pressure 1: 138/88 Code: 8480-6 BMI: 33.6 Code: 87417-7 Heart Rate 1: 88 bpm Height: 5'1" SpO2: 98% Weight: 178 lbs 09/23/2015 Blood Pressure 1: 152/94 Code: 8480-6 BMI: 32.7 Code: 15024-6 Heart Rate 1: 83 bpm Height: 5'1" SpO2: 97% Weight: 173 lbs 09/10/2015 Blood Pressure 1: 136/82 Code: 8480-6 BMI: 32.1 Code: 56708-2 Heart Rate 1: 105 bpm Height: 5'1" SpO2: 97% Weight: 170 lbs 08/12/2015 Blood Pressure 1: 132/70 Code: 8480-6 BMI: 31.2 Code: 04871-4 Heart Rate 1: 88 bpm Height: 5'1" SpO2: 95% Temperature: 36.7 (C ) / 98.0 (F) Weight: 165 lbs 08/04/2015 Blood Pressure 1: 136/80 Code: 8480-6 BMI: 31.0 Code: 27277-4 Heart Rate 1: 110 bpm Height: 5'1" SpO2: 98% Weight: 164 lbs 05/16/2015 Blood Pressure 1: 138/88 Code: 8480-6 BMI: 32.9 Code: 60823-0 Heart Rate 1: 87 bpm Height: 5'1" SpO2: 90% Weight: 174 lbs 05/12/2015 BMI: 31.7 Code: 03780-6 Height: 5'1" Weight: 168 lbs 04/21/2015 Blood Pressure 1: 124/82 Code: 8480-6 BMI: 32.1 Code: 22300-1 Heart Rate 1: 87 bpm Height: 5'1" Weight: 170 lbs Functional Status No Functional Status data History of Present Illness Symptom Name Status Resu lt Effective Date Notes cough Location in the roat 10/13/2016 None cough Quality constant 10/13/2016 [...] of the thyroid 08/30/2016 None hypothyroid Quality ash handler marley 08/30/2016 None hypothyroid Onset and Resolution ongoing 08/30/2016 None hypothyroid Alleviating Factors medication 08/30/2016 None hypertension Exacerbating Factors stress 08/30/2016 None shoulder pain Location L eft Posterior Shoulder 07/02/2016 None shoulder pain Quality ac iqugmiut 07/02/2016 None shoulder pain Onset and Resolution [...] of the thyroid 05/04/2016 None hypothyroid Quality ash handler marley 05/04/2016 None hypothyroid Onset and Resolution [...] of the thyroid 04/06/2016 None hypothyroid Quality ash handler marley 04/06/2016 None hypothyroid Onset and Resolution [...] Alleviating Factors medication 12/16/2015 None hypothyroid Quality ash handler marley 12/16/2015 None hypothyroid Location at the [...] Encounters Encounter Performer Loca tion Codes Date [id number] EST. PATIENT, LEVEL IV Diagnosis: Acute laryngopharyngitis[ICD10: J06.0] Diagnosis: Other acute sinusitis[ICD10: J01.80] Britney Maya MD, [facility] CPT- 4: 02444 10/13/2016 ([id number]) [id number] EST. P ATIENT, LEVEL IV Diagnosis: Essential (primary) hypertension[ICD10: I10] Diagnosis: Drug-induced polyneuropathy[ICD10: G62.0] Diagnosis: Impaired fasting glucose[ICD10: R73.01] Catie Maya MD, [facility] CPT-4: 48273 08/30/2016 [id number] EST. PATIENT, LEVEL IV Diagnosis: Pain in thoracic spine[ICD10: M54.6] Diagnosis: Pain in left shoulder[ICD10: M25.512] Diagnosis: Zoster without complications[ICD10: B02.9] Britney Maya MD, [facility] CPT-4: 08878 07/02/2016 31555 EST. PATIENT, LEVEL III Diagnosis: Other specified hypothyroidism[ICD10: E03.8] Diagnosis: Menopausal and female climacteric states[ICD10: N95.1] Diagnosis: Essential (primary) hypertension[ICD10: I10] Britney Maya MD, [facility] CPT-4: 03683 06/24/2016 ([id number]) 21717 EST. P ATIENT, LEVEL IV Diagnosis: Essential (primary) hypertension[ICD10: I10] Diagnosis: Atrophy of thyroid (acquired)[ICD10: E03.4] Diagnosis: Pain in left foot[ICD10: M79.672] Meghana Maya MD, [facility] CPT-4: 38817 05/04/2016 ([id number]) 07478 EST. P ATIENT, LEVEL IV Diagnosis: Essential (primary) hypertension[ICD10: I10] Diagnosis: Pain in left leg[ICD10: M79.605] Diagnosis: Pain in left foot[ICD10: M79.672] Diagnosis: Atrophy of thyroid (acquired)[ICD10: E03.4] Meghana Maya MD, [facility] CPT-4: 37533 04/06/2016 ([id number]) 21978 EST. P ATIENT, LEVEL III Diagnosis: Essential (primary) hypertension[ICD10: I10] Diagnosis: Localized edema[ICD10: R60.0] Catie Maya MD, [facility] CPT- 4: 85926 03/18/2016 ([id number]) 63572 EST. P ATIENT, LEVEL III Diagnosis: Essential (primary) hypertension[ICD10: I10] Diagnosis: Pain in left foot[ICD10: M79.672] Catie Maya MD, [facility] CPT- 4: 02800 03/11/2016 ([id number]) 82166 EST. P ATIENT, LEVEL III Diagnosis: Localized edema[ICD10: R60.0] Diagnosis: Essential (primary) hypertension[ICD10: I10] Catie Maya MD, [facility] CPT-4: 16672 02/24/2016 ([id number]) 36449 EST. P ATIENT, LEVEL IV Diagnosis: Hypothyroidism, unspecified[ICD10: E03.9] Diagnosis: Essential (primary) hypertension[ICD10: I10] Meghana Maya MD, [facility] CPT-4: 46025 12/16/2015 ([id number]) 56176 EST. P ATIENT, LEVEL III Diagnosis: Essential (primary) hypertension[ICD10: I10] Diagnosis: Hypothyroidism, unspecified[ICD10: E03.9] Meghana Maya MD, [facility] CPT-4: 35272 10/30/2015 ([id number]) 48170 EST. P ATIENT, LEVEL IV Diagnosis: Diarrhea, unspecified[ICD10: R19.7] Diagnosis: Essential (primary) hypertension[ICD10: I10] Meghana Maya MD, [facility] CPT-4: 11042 09/23/2015 ([id number]) 29521 EST. P ATIENT, LEVEL III Diagnosis: Essential (primary) hypertension[ICD10: I10] Diagnosis: Diarrhea, unspecified[ICD10: R19.7] Meghana Maya MD, [facility] CPT- 4: 84555 09/10/2015 ([id number]) 22287 EST. P ATIENT, LEVEL III Diagnosis: Acute maxillary sinusitis, unspecified[ICD10: J01.00] Diagnosis: Myositis, unspecified[ICD10: M60.9] Meghana Maya MD, [facility] CPT- 4: 35409 08/12/2015 ([id number]) 25800 EST. P ATIENT, LEVEL IV Diagnosis: Essential (primary) hypertension[ICD10: I10] Diagnosis: Pain in left leg[ICD10: M79.605] Diagnosis: Other myositis, multiple sites[ICD10: M60.89] Diagnosis: Hypothyroidism, unspecified[ICD10: E03.9] Meghana Maya MD, [facility] CPT-4: 69833 08/04/2015 35701 EST. PATIENT, LEVEL III Diagnosis: Dyspnea, unspecified[ICD10: R06.00] Diagnosis: Essential (primary) hypertension[ICD10: I10] Meghana Maya MD, [facility] CPT-4: 03970 05/16/2015 ([id number]) 08296 EST. P ATIENT, LEVEL II Diagnosis: Dyspnea, unspecified[ICD10: R06.00] Meghana Maya MD, [facility] CPT- 4: 85471 05/12/2015 ([id number]) [facility] Diagnosis: Essential (primary) hypertension[ICD10: I10] Diagnosis: Impaired fasting glucose[ICD10: R73.01] Diagnosis: Mixed hyperlipidemia[ICD10: E78.2] Diagnosis: Hypothyroidism, unspecified[ICD10: E03.9] Diagnosis: Encounter for screening mammogram for malignant neoplasm of breast[ICD10: Z12.31] Catie Maya MD, [facility] CPT-4: 59865 04/21/2015 Plan of Care Planned Activity Notes C odes Status Date Visit Plan: URI - Pt advised to increase fluids, vitamin C. Discussed natural and expected course of this diagnosis and need to alert me if symptoms do not follow expected course, or if any worse. RX sent to patient's pharmacy.Sinusitis - Pt has acute infection - pain in face, maxillary region, Pt informed to use decongestant, RX given to patient, sinus rinses also recommended. Call if symptoms do not show improvement. 10/13/2016 Appointment: Britney Bower WPtel: [address] [place], [place] [phone] (30 min) Complex 10/13/2016 Patient Education: Patient Medication Summary Completed 10/13/2016 Patient Education: Obesity Completed 10/13/2016 Visit Plan: Hypertension - well controll ed - continue with current medications, continue with no added salt diet. 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 Peripheral neuropathy-improved with [id number] Dr Duran for tarsel tunnel syndrome 08/30/2016 Appointment: Catie Shoemaker [facility]el[facility] [phone] [phone] [place] (15 min) Moderate 08/30/2016 Patient Education: Patient Medication Summary Completed 08/30/2016 Patient Education: Obesity Completed 08/30/2016 Care Plan: %Hba1C RAEANN C : 00501-8 Ordered 08/30/2016 Care Plan: Comp Metabolic Ordered [...] may be , or infants, or immunocompromised individuals.Pt has been instructed that shingles will continue to break out and eventually scab over a two week period, until all of the vesicles are scabbed, the pt is to be considered contagious. 07/02/2016 Appointment: Britney Bower [facility]el[facility] [phone] [facility] [place] (30 min) Complex 07/02/2016 Patient Education: [...] the office next week for practitioner to review.The pt is to call for acute concerns.Hot Flashes - will send RX - pt [...] Bower [facility]Ptel[facility] [phone] [facility] (30 min) Complex 06/24/2016 Patient Education: Patient Medication Summary Completed 06/24/2016 Patient Education: Obesity Completed 06/24/2016 Patient Education: Hypertension Completed 06/24/2016 Patient Education: Patient Medication Summary Completed 05/14/2016 Care Plan: SCREENINGMAMMOGRAPHYDIGITAL LOINC : 03716-5 Pending 05/14/2016 Visit Plan: Hypertension - well controll ed - continue with current medications, continue with no added salt diet. Pt has been encouraged to exercise daily.The pt has been advised to call the office if there are any acute concerns about change in blood pressure readings at home.Hypothyroidism - pt with chronic hypothyroidism, continue with current medication, will monitor pt to signs or symptoms of lack of adequate supplementation. Pt is to continue with current dose of medication unless directed otherwise. Check labs at regular intervals wither q 3 months or q 6 months based on previous levels of control.Left foot pain - capzasin cream to area on foot that is painful. 05/04/2016 Appointment: [facility] [phone] [facility] (15 min) Moderate 05/04/2016 Patient Education: Patient Medication Summary Completed 05/04/2016 Patient Education: Hypertension Completed 05/04/2016 Referral: Sharon Duran Patient infor med. Referral info faxed. Completed 04/13/2016 Visit Plan: Hypertension - uncontrolled - the [...] the office next week for practitioner to review.The pt is to call for acute concerns.Metoprolol dose increased.Foot and ankle pain - pt referred to Dr. Crouch for evaluation.Hypothyroid - continue with current medication. 04/06/2016 Appointment: Meghana Maya WPtel: [facility] [place] (15 min) Moderate 04/06/2016 Patient Education: Patient Medication Summary Completed 04/06/2016 Patient Education: Obesity Completed 04/06/2016 Care Plan: Referral Order SNOMED-CT : [id number] Pending 04/06/2016 Visit Plan: Edema-improved with lower do se of amlodipine Hypertension - uncontrolled - the [...] the office next week for practitioner to review.The pt is to call for acute concerns. 03/18/2016 Appointment: Catie Shoemaker WPtel: [phone] [place] (15 min) Moderate 03/18/2016 Patient Education: Patient Medication Summary Completed 03/18/2016 Patient Education: Obesity Completed 03/18/2016 Patient Education: Hypertension Completed 03/18/2016 Visit Plan: Hypertension - well controll ed - continue with current medications, continue with no added salt diet. Pt has been encouraged to exercise daily.The pt has been advised to call the office if there are any acute concerns about change in blood pressure readings at home.Edema-improved with medication changes Left foot pain-fell about an hour ago with swelling left foot-will send patient to the hospital for xray left foot-recommend she follow up with finishing operator at regarding left foot pain/numbness/weakness. Patient has noticed worsening symptoms since decreasing prednisone. 03/11/2016 Appointment: Catie Shoemaker WPtel: [phone] (15 min) Moderate 03/11/2016 Patient Education: Patient Medication Summary Completed 03/11/2016 Patient Education: Obesity Completed 03/11/2016 Appointment: Catie Shoemaker WPtel: [phone] [phone] (30 min) Complex 03/09/2016 Visit Plan: Edema - pt has been advised to elevate legs to prevent dependent edema, compression has been recommended to help to naturally decrease peripheral edema. Diuretic use has been discussed and pt has been instructed in appropriate use of such medication as necessary to further attempt to reduce peripheral edema.Hypertension -tachycardia - continue with current medications, continue with no added salt diet. Pt has been encouraged to exercise daily.The pt has been advised to call the office if there are any acute concerns about change in blood pressure readings at home.Dr Maya in to evaluate patient-cut back on amlodipine to 1/2 tab daily. Add beta anuj-metoprolol 25mg daily 02/24/2016 Appointment: Catie Shoemaker WPtel: [phone] (15 min) Moderate 02/24/2016 Patient Education: Patient Medication Summary Completed 02/24/2016 Patient Education: Obesity Completed 02/24/2016 Patient Education: Hypertension Completed 02/24/2016 Appointment: Meghana Maya WPtel: [facility] (15 min) Moderate 02/23/2016 Visit Plan: Hypertension - well controll ed - continue with current medications, continue with no added salt diet. Pt has been encouraged to exercise daily.The pt has been advised to call the office if there are any acute concerns about change in blood pressure readings at home.Hypothyroidism - pt with chronic hypothyroidism, continue with current medication, will monitor pt to signs or symptoms of lack of adequate supplementation. Pt is to continue with current dose of medication unless directed otherwise. Check labs at regular intervals wither q 3 months or q 6 months based on previous levels of control. 2015 Appointment: Meghana Maya WPtel: [facility] (15 min) Moderate 12/16/2015 Patient Education: Patient Medication Summary Completed 12/16/2015 Patient Education: Obesity Completed 12/16/2015 Visit Plan: Hypothyroidism - pt with chr onic hypothyroidism, continue with current medication, will monitor pt to signs or symptoms of lack of adequate supplementation. Pt is to continue with current dose of medication unless directed otherwise. Check labs at regular intervals wither q 3 months or q 6 months based on previous levels of control.Hypertension - well controlled - continue with current medications, continue with no added salt diet. Pt has been encouraged to exercise daily.The pt has been advised to call the office if there are any acute concerns about change in blood pressure readings at home. 10/30/2015 Visit Plan: Hypothyroidism - pt with chr onic hypothyroidism, continue with current medication, will monitor pt to signs or symptoms of lack of adequate supplementation. Pt is to continue with current dose of medication unless directed otherwise. Check labs at regular intervals wither q 3 months or q 6 months based on previous levels of control.Hypertension - well controlled - continue with current medications, continue with no added salt diet. Pt has been encouraged to exercise daily.The pt has been advised to call the office if there are any acute concerns about change in blood pressure readings at home. 10/30/2015 Visit Plan: Hypertension - well controll ed - continue with current medications, continue with no added salt diet. Pt has been encouraged to exercise daily.The pt has been advised to call the office if there are any acute concerns about change in blood pressure readings at home. 10/30/2015 Patient Education: Patient Medication Summary Completed 10/30/2015 Patient Education: Hypertension Completed 10/30/2015 Appointment: (30 min) Complex 10/23/2015 Appointment: [facility]Ptel[phone] (15 min) Moderate 10/23/2015 Visit Plan: Hypertension - uncontrolled - the patient's medications have not been changed due to acute illness causing the blood pressure to be elevated.Pt to continue with current antihypertensives and will monitor her blood pressures at home.Diarrhea - finish flagyl - start probiotic tid. [...] acute worsening of stomach upset or stomach pain.Hypertension - well controlled - continue with current medications, continue with no added salt diet. Pt has b een encouraged to exercise daily.The pt has been advised to call the office if there are any acute concerns about change in blood pressure readings at home. 09/10/2015 Appointment: Meghana Maya WPtel: [phone] [facility] (15 min) Moderate 09/10/2015 Patient Education: Patient Medication Summary Completed 09/10/2015 Patient Education: Obesity Completed 09/10/2015 Patient Education: Hypertension Completed 09/10/2015 Visit Plan: Sinusitis - Pt has acute inf ection - pain in face, maxillary region, Pt informed to use decongestant, RX given to patient, sinus rinses also recommended. Call if symptoms do not show improvement. 08/12/2015 Patient Education: Patient Medication Summary Completed 08/12/2015 Patient Education: Hypertension Completed 08/12/2015 Appointment: (30 min) Complex 08/05/2015 Visit Plan: Hypertension - well controll ed - continue with current medications, continue with no added salt diet. Pt has been encouraged to exercise daily.The pt has been advised to call the office if there are any acute concerns about change in blood pressure readings at home.Hypothyroid check level.Myalgia/Myositis - check CPK level, hold statin, start coenzyme q10 x 2 weeks.Pt to RTC in one week for re-eval.steroid shot today - i am worried that her decrease in steroids is too fast due to the long time she has been on steroids - she is therefore going to get a steroid shot today. 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 Pt has been encouraged to exercise daily.The pt has been advised to call the office if there are any acute concerns about change in blood pressure readings at home.Hypothyroidism - pt with chronic hypothyroidism, continue with current medication, will monitor pt to signs or symptoms of lack of adequate supplementation. Pt is to continue with current dose of medication unless directed otherwise. Check labs at regular intervals wither q 3 months or q 6 months based on previous levels of control.Hyperlipidemia - pt has been counseled about appropriate [...] and to assure normal liver response to medications.Elevated blood sugar- check Hgb A1C 04/21/2015 Patient Education: Patient Medication Summary Completed 04/21/2015 Patient Education: Hypertension Completed 04/21/2015 Care Plan: SCREENINGMAMMOGRAPHYDIGITAL LOINC : 19158-9 Ordered 04/21/2015 Appointment: Meghana Maya WPtel: [address] [place] [id number] [place] (S) New Patient 04/01/2015 Referral: Sharon [...] a steroid shot today. . 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 CROUCH IS THE P ODIATRIST WHO SPECIALIZES IN FOOT AND ANKLE DISEASE AT [address] INCREASE THE METOPROLOL TO 1.5 PILLS [...] the pt is to be considered contagious. DX sinusitis - discu ssed expected course [...] previous levels of control. . Hypertension - unc ontrolled - the [...] in blood pressure readings at home. 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 Patient has [...] pt is to call for acute concerns. probiotic - [employer], probiotic pearls, etc - take three times [...]
--- OUTSIDE RECORDS SUMMARY | 2019-08-14 06:25 | XMS REPORT | CCD ---
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 04/21/[address]: [id number] Never smoker 04/21/2015 Alcohol history Unknown occasionally drinks alcohol 04/21/2015 Allergies, Adverse Reactions, Alerts Substance Reaction Codes Entered Date Inactivated Date Status [id number] REDU CTASE INHIBITORS myalgias Unknown 016 No [...] Date Stop Date Sta tus Fill Instructions nystatin 100,000 uni t/mL oral suspension RxNorm: 659354 4 Unit(s) PO QID 10/17/2018 10/23/2018 Ac tive metoprolol succinate ER 50 mg tablet,extended release 24 hr RxNorm: 675825 1 Tablet(s) PO daily 10/17/2018 10/11/2019 Active nystatin 100,000 uni t/mL oral suspension RxNorm: 952644 4 Unit(s) PO QID 10/17/2018 10/16/2018 In active potassium chloride E R 10 mEq tablet,extended release RxNorm: 148079 Tablet(s) TAKE ONE TABLET BY MOUTH DAILY 09/15/2018 03/13/2019 Active candesartan 4 mg tablet RxNorm: 051895 1 Tablet(s) PO daily 09/15/2018 10/14/2018 Inactive clonidine HCl 0.1 mg tablet RxNorm: 328347 TAKE ONE TABLET BY [facility] TWICE A DAY 09/14/2018 02/10/2019 Ac tive losartan 25 mg tablet RxNorm: 176754 TAKE ONE TABLET BY MOUTH DAILY 09/14/2018 11/12/2018 Ac tive clonidine HCl 0.1 mg tablet RxNorm: 105563 Tablet(s) TAKE ONE TA BLET BY MOUTH AT BEDTIME 09/13/2018 No Stop Date Active venlafaxine ER 150 m g capsule,extended release 24 hr RxNorm: 427998 TAKE ONE CAPSULE BY MOUTH DAILY 05/15/2018 11/10/2018 Active Lipitor 20 mg tablet RxNorm: 225653 TAKE ONE TABLET BY MOUTH DAILY 05/15/2018 11/10/2018 Ac tive losartan 25 mg tablet RxNorm: 519474 TAKE ONE TABLET BY MOUTH DAILY 04/17/2018 07/14/2018 In active losartan 25 mg tablet RxNorm: 075010 TAKE ONE TABLET BY MOUTH DAILY 04/17/2018 04/16/2018 In active Lipitor 20 mg tablet RxNorm: 880172 1 Tablet(s) PO daily 01/12/2018 01/11/2018 Inactive Lipitor 20 mg tablet RxNorm: 978415 1 Tablet(s) PO daily 01/12/2018 05/11/2018 Inactive clonidine HCl 0.1 mg tablet RxNorm: 114029 TAKE ONE TABLET BY [facility] TWICE A DAY 01/04/2018 07/02/2018 In active potassium chloride E R 10 mEq tablet,extended release RxNorm: 696067 TAKE ONE TABLET BY MOUTH DAILY 01/04/2018 09/12/2018 Inactive losartan 25 mg tablet RxNorm: 583111 TAKE ONE TABLET BY MOUTH DAILY 01/03/2018 04/02/2018 In active levothyroxine 50 mcg tablet RxNorm: 674582 1 Tablet(s) PO daily 12/08/2017 09/12/2018 Inactive losartan 25 mg tablet RxNorm: 815831 1 Tablet(s) PO daily 12/06/2017 01/02/2018 Inactive venlafaxine ER 150 m g capsule,extended release 24 hr RxNorm: 538110 TAKE ONE CAPSULE BY MOUTH DAILY 12/06/2017 05/04/2018 Inactive metoprolol succinate ER 50 mg tablet,extended release 24 hr RxNorm: 868566 TAKE ONE TABLET BY MOUTH DAILY 08/29/2017 01/25/2018 Inactive metoprolol succinate ER 50 mg tablet,extended release 24 hr RxNorm: 221950 TAKE ONE TABLET BY MOUTH DAILY 08/29/2017 08/28/2017 Inactive metoprolol succinate ER 50 mg tablet,extended release 24 hr RxNorm: 575873 TAKE ONE TABLET BY MOUTH DAILY 08/29/2017 08/28/2017 Inactive Tamiflu 75 mg capsule RxNorm: 758676 1 Capsule(s) PO BID 06/22/2017 06/26/2017 Inactive Kenalog 40 mg/mL jenna pension for injection RxNorm: 8813780 1.5 Milliliter(s) In j 06/22/2017 06/22/2017 In active clonidine HCl 0.1 mg tablet RxNorm: 560828 TAKE ONE TABLET BY [facility] TWICE A DAY 06/06/2017 12/02/2017 In active potassium chloride E R 10 mEq tablet,extended release RxNorm: 884474 TAKE ONE TABLET BY MOUTH DAILY 06/06/2017 12/02/2017 Inactive venlafaxine ER 150 m g capsule,extended release 24 hr RxNorm: 891106 TAKE ONE CAPSULE BY MOUTH DAILY 05/23/2017 11/18/2017 Inactive Zithromax 500 mg tablet RxNorm: 206944 1 Tablet(s) PO daily 05/18/2017 05/22/2017 Inactive potassium chloride E R 10 mEq tablet,extended release RxNorm: 677655 TAKE ONE TABLET BY MOUTH DAILY 04/21/2017 05/20/2017 Inactive potassium chloride E R 10 mEq tablet,extended release RxNorm: 721622 TAKE ONE TABLET BY MOUTH DAILY 03/16/2017 04/14/2017 Inactive Zithromax Z-Jacek 250 mg tablet RxNorm: 370793 1 Tablet(s) PO UD 03/02/2017 06/21/2017 Inactive venlafaxine ER 150 m g capsule,extended release 24 hr RxNorm: 863695 Capsule(s) TAKE ONE CAPSULE BY MOUTH DAILY 02/17/2017 02/16/2017 Inactive venlafaxine ER 150 m g capsule,extended release 24 hr RxNorm: 435306 TAKE ONE CAPSULE BY MOUTH DAILY 02/17/2017 05/14/2018 Inactive clonidine HCl 0.1 mg tablet RxNorm: 523133 TAKE ONE TABLET BY [facility] EVERY NIGHT AT BEDTIME 02/14/2017 01/03/2018 Inactive metoprolol succinate ER 50 mg tablet,extended release 24 hr RxNorm: 500683 TAKE ONE TABLET BY MOUTH DAILY 02/14/2017 08/12/2017 Inactive Protonix 40 mg table t,delayed release RxNorm: 808588 TAKE ONE TABLET BY [facility] DAILY WHILE ON PREDNISONE 01/25/2017 09/12/2018 Inactive Zithromax Z-Jacek 250 mg tablet RxNorm: 655886 1 Tablet(s) PO UD 01/24/2017 01/03/2018 Inactive potassium chloride E R 10 mEq tablet,extended release RxNorm: 537776 TAKE ONE TABLET BY MOUTH DAILY 01/17/2017 03/15/2017 Inactive clonidine HCl 0.1 mg tablet RxNorm: 554763 TAKE ONE TABLET BY [facility] EVERY NIGHT AT BEDTIME 01/17/2017 02/13/2017 Inactive potassium chloride E R 10 mEq tablet,extended release RxNorm: 340577 TAKE ONE TABLET BY MOUTH DAILY 12/16/2016 01/14/2017 Inactive venlafaxine ER 150 m g capsule,extended release 24 hr RxNorm: 291333 TAKE ONE CAPSULE BY MOUTH DAILY 11/18/2016 02/15/2017 Inactive clonidine HCl 0.1 mg tablet RxNorm: 733355 TAKE ONE TABLET BY [facility] EVERY NIGHT AT BEDTIME 11/08/2016 01/06/2017 Inactive clonidine HCl 0.1 mg tablet RxNorm: 966423 1 Tablet(s) BID 10/19/2016 01/16/2017 Inactive potassium chloride E R 10 mEq tablet,extended release RxNorm: 434537 TAKE ONE TABLET BY MOUTH DAILY 10/15/2016 11/13/2016 Inactive Zithromax Z-Jacek 250 mg tablet RxNorm: 051441 1 Tablet(s) PO UD 10/13/2016 01/03/2018 Inactive potassium chloride E R 10 mEq tablet,extended release RxNorm: 855098 TAKE ONE TABLET BY MOUTH DAILY 10/12/2016 10/14/2016 Inactive potassium chloride E R 10 mEq tablet,extended release RxNorm: 484614 Tablet(s) BID TAKE ONE TABLET BY MOUTH TWICE DAILY 09/17/2016 10/11/2016 Inactive potassium chloride E R 10 mEq tablet,extended release RxNorm: 038789 TAKE ONE TABLET BY MOUTH DAILY 09/13/2016 09/16/2016 Inactive clonidine HCl 0.1 mg tablet RxNorm: 257051 Tablet(s) TAKE ONE TA BLET BY MOUTH EVERY NIGHT AT BEDTIME 08/12/2016 10/18/2016 Inactive gabapentin 300 mg ca psule RxNorm: 102958 1 Capsule(s) PO QHS 08/10/2016 No Stop Date Active venlafaxine ER 150 m g capsule,extended release 24 hr RxNorm: 194505 TAKE ONE CAPSULE BY MOUTH DAILY 08/09/2016 11/06/2016 Inactive metoprolol succinate ER 50 mg tablet,extended release 24 hr RxNorm: 773400 TAKE ONE TABLET BY MOUTH DAILY 07/29/2016 01/24/2017 Inactive clonidine HCl 0.1 mg tablet RxNorm: 476640 TAKE ONE TABLET BY [facility] EVERY NIGHT AT BEDTIME 07/21/2016 08/11/2016 Inactive potassium chloride E R 10 mEq tablet,extended release RxNorm: 886258 TAKE ONE TABLET BY MOUTH DAILY 07/14/2016 09/11/2016 Inactive Prescriber not associated w ith this practice or location acyclovir 400 mg tablet RxNorm: 566195 2 Tablet(s) PO QID 07/02/2016 07/11/2016 Inactive cyclobenzaprine 5 mg tablet RxNorm: 166438 1-2 Tablet(s) PO TID as needed 07/02/2016 07/06/2016 In active capsaicin 0.1 % topi reagan cream RxNorm: 135552 1 Application TOP TID as needed 07/02/2016 09/12/2018 In active Protonix 40 mg table t,delayed release RxNorm: 386280 TAKE ONE TABLET BY [facility] DAILY WHILE ON PREDNISONE 06/29/2016 12/25/2016 Inactive clonidine HCl 0.1 mg tablet RxNorm: 443537 1 Tablet(s) PO QHS 06/25/2016 07/20/2016 Inactive calcium carbonate 50 0 mg calcium (1,250 mg) tablet RxNorm: 791203 TAKE ONE TABLET BY MOUTH DAILY WHILE ON PREDNISONE. MAY STOP TAKING WHEN PREDNISONE IS COMPLETE 06/01/2016 09/12/2018 In active Vitamin D3 1,000 uni t tablet RxNorm: 912423 1 Tablet(s) PO daily . May stop taking once prednisone is complete. 04/26/2016 09/12/2018 Inactive metoprolol succinate ER 50 mg tablet,extended release 24 hr RxNorm: 656223 1.5 Tablet(s) PO daily 04/06/2016 06/23/2016 Inactive prednisone 10 mg tablet RxNorm: 799416 1 Tablet(s) PO daily 04/02/2016 06/21/2017 Inactive metoprolol succinate ER 50 mg tablet,extended release 24 hr RxNorm: 008402 1 Tablet(s) PO daily 03/18/2016 04/05/2016 Inactive amlodipine 10 mg tablet RxNorm: 456778 1/2 Tablet(s) PO daily 02/24/2016 06/21/2016 Inactive metoprolol succinate ER 25 mg tablet,extended release 24 hr RxNorm: 392072 1 Tablet(s) PO daily 02/24/2016 03/16/2016 Inactive calcium carbonate 50 0 mg calcium (1,250 mg) tablet RxNorm: 558109 TAKE ONE TABLET BY MOUTH DAILY WHILE ON PREDNISONE. MAY STOP TAKING WHEN PREDNISONE IS COMPLETE 02/16/2016 05/15/2016 In active Protonix 40 mg table t,delayed release RxNorm: 360941 TAKE ONE TABLET BY [facility] DAILY WHILE ON PREDNISONE 02/10/2016 05/09/2016 Inactive venlafaxine ER 150 m g capsule,extended release 24 hr RxNorm: 501657 Capsule(s) TAKE ONE CAPSULE BY MOUTH DAILY 12/10/2015 04/07/2016 Inactive calcium carbonate 50 0 mg calcium (1,250 mg) tablet RxNorm: 586824 1 Tablet(s) PO daily 12/01/2015 01/29/2016 Inactive Vitamin D3 1,000 uni t tablet RxNorm: 944200 1 Tablet(s) PO daily 12/01/2015 03/29/2016 Inactive levothyroxine 50 mcg tablet RxNorm: 012630 1 Tablet(s) PO daily 12/01/2015 11/24/2016 Inactive amlodipine 10 mg tablet RxNorm: 194095 1 Tablet(s) PO daily 11/19/2015 11/18/2015 Inactive amlodipine 10 mg tablet RxNorm: 878233 1 Tablet(s) PO daily 11/19/2015 02/23/2016 Inactive amlodipine 5 mg tablet RxNorm: 266584 1 Tablet(s) PO daily 11/17/2015 11/18/2015 Inactive venlafaxine ER 150 m g capsule,extended release 24 hr RxNorm: 314061 TAKE ONE CAPSULE BY MOUTH DAILY 11/13/2015 12/09/2015 Inactive Protonix 40 mg table t,delayed release RxNorm: 450031 1 Tablet(s) PO daily while on prednisone 2015 02/09/2016 Inactive prednisone 10 mg tablet RxNorm: 355591 2 Tablet(s) PO UD 10/30/2015 04/01/2016 Inactive 60mg for 2 days, then 50mg for 2 days, then 40mg for 2 days, then 30mg for 2 days, then 20mg for 2 days, then 10mg for 2 days, then 5mg for 2 days potassium chloride E R 10 mEq tablet,extended release RxNorm: 305119 TAKE ONE TABLET BY MOUTH DAILY 09/22/2015 12/19/2015 Inactive venlafaxine ER 150 m g capsule,extended release 24 hr RxNorm: 025773 TAKE ONE CAPSULE BY MOUTH DAILY 09/08/2015 11/06/2015 Inactive cefdinir 300 mg capsule RxNorm: 274540 1 Capsule(s) PO BID 08/20/2015 08/22/2015 Inactive cefdinir 300 mg capsule RxNorm: 655573 1 Capsule(s) PO BID 08/12/2015 08/18/2015 Inactive Kenalog 40 mg/mL jenna pension for injection RxNorm: 8434272 1 Milliliter(s) Inj 08/04/2015 08/04/2015 In active triamterene 37.5 mg- hydrochlorothiazide 25 mg tablet RxNorm: 574038 1 Tablet(s) PO BID 06/17/2015 08/03/2015 Inactive potassium chloride E R 10 mEq tablet,extended release RxNorm: 570612 1 Tablet(s) PO daily 05/30/2015 08/03/2015 Inactive Levaquin 250 mg tablet RxNorm: 864663 Tablet(s) PO UD 500 mg day one, then 250 mg day 2-7 05/27/2015 08/03/2015 Inactive prednisone 10 mg tablet RxNorm: 227025 Tablet(s) PO UD 05/27/2015 10/29/2015 Inactive 60mg for 2 days, then 50mg for 2 days, then 40mg for 2 days, then 30mg for 2 days, then 20mg for 2 days, then 10mg for 2 days, then 5mg for 2 days albuterol sulfate 1. 25 mg/3 mL solution for nebulization RxNorm: 062556 3 Milliliter(s) INH Q4-6H as needed dyspnea 05/23/2015 09/12/2018 Inactive Zithromax 500 mg tablet RxNorm: 810365 1 Tablet(s) PO daily 05/16/2015 05/15/2015 Inactive Zithromax 500 mg tablet RxNorm: 343788 1 Tablet(s) PO daily 05/16/2015 05/20/2015 Inactive prednisone 20 mg tablet RxNorm: 218633 3 Tablet(s) PO daily 05/12/2015 05/16/2015 Inactive venlafaxine ER 150 m g capsule,extended release 24 hr RxNorm: 497600 TAKE ONE CAPSULE BY MOUTH DAILY 05/12/2015 08/09/2015 Inactive Keflex 500 mg capsule RxNorm: 947931 1 Capsule(s) PO TID 05/12/2015 05/18/2015 Inactive simvastatin 20 mg ta blet RxNorm: 214345 1 Tablet(s) PO daily 04/10/2015 04/09/2015 Inactive simvastatin 20 mg ta blet RxNorm: 472720 1 Tablet(s) PO daily 04/10/2015 08/11/2015 Inactive venlafaxine ER 150 m g capsule,extended release 24 hr RxNorm: 694480 TAKE ONE CAPSULE BY MOUTH DAILY 04/08/2015 05/07/2015 Inactive amlodipine 5 mg tablet RxNorm: 999918 1 Tablet(s) PO daily 03/07/2015 03/06/2015 Inactive amlodipine 5 mg tablet RxNorm: 204242 1 Tablet(s) PO daily 03/07/2015 07/04/2015 Inactive venlafaxine ER 150 m g capsule,extended release 24 hr RxNorm: 418607 1 Capsule(s) PO daily 01/29/2015 03/29/2015 Inactive Co Q-10 oral RxNorm: 00894 oral No Start Date Active gabapentin 100 mg ca psule RxNorm: 954019 1 Capsule(s) PO QAM No Start Date Active albuterol sulfate 1. 25 mg/3 mL solution for nebulization RxNorm: 020962 3 Milliliter(s) INH Q4-6H as needed dyspnea No Start Date 05/22/2015 Inactive levothyroxine 50 mcg tablet RxNorm: 369251 1 Tablet(s) PO daily No Start Date 11/30/2015 Inactive metoprolol succinate ER 50 mg tablet,extended release 24 hr RxNorm: 935315 1 Tablet(s) PO daily No Start Date 09/12/2018 Inactive gabapentin 300 mg ca psule RxNorm: 181975 1 Capsule(s) PO QHS No Start Date 08/09/2016 Inactive vitamin B complex oral RxNorm: 05084 oral No Start Date 09/12/2018 Inactive Vitamin D3 1,000 uni t tablet RxNorm: 473049 1 Tablet(s) PO daily No Start Date 11/30/2015 Inactive Protonix 40 mg table t,delayed release RxNorm: 831171 1 Tablet(s) PO daily while on prednisone No Start Date 10/30/2015 Inactive calcium carbonate oral RxNorm: oral No Start Date 11/30/2015 Inactive potassium chloride E R 10 mEq tablet,extended release RxNorm: 516450 1 Tablet(s) PO daily No Start Date 05/29/2015 Inactive Levaquin 250 mg tablet RxNorm: 079526 Tablet(s) PO UD 500 mg day one, then 250 mg day 2-7 No Start Date 05/26/2015 Inactive triamterene 37.5 mg- hydrochlorothiazide 25 mg tablet RxNorm: 564974 1 Tablet(s) PO BID No Start Date 06/16/2015 Inactive prednisone 10 mg tablet RxNorm: 570325 Tablet(s) PO UD No Start Date 05/26/2015 Inactive 60mg for 2 days, then 50mg for 2 days, then 40mg for 2 days, then 30mg for 2 days, then 20mg for 2 days, then 10mg for 2 days, then 5mg for 2 days venlafaxine ER 150 m g capsule,extended release 24 hr RxNorm: 552104 1 Capsule(s) PO daily No Start Date 01/28/2015 Inactive Medication Administered Medication Codes Instruc tions Start Date Status Kenalog 40 mg/mL suspension for injection RxNorm: 2668030 1.5Milliliter 06/22/2017 No longer Active Kenalog 40 mg/mL suspension for injection RxNorm: 2948540 1Milliliter 08/04/2015 N o longer Active Immunizations [...] Item Item Code Result Date Comp Metabolic Xcz729 NA 142 mEq/L 10/12/2018 Comp Metabolic Vfl581 K 4.0 mEq/L 10/12/2018 Comp Metabolic Riq044 CL 105 mEq/L 10/12/2018 Comp Metabolic Ici808 CO2 21.0 mEq/L 10/12/2018 Comp Metabolic Qoc078 AN ION GAP 20 10/12/2018 Comp Metabolic Mof230 GL UCOSE 105 mg/dL 10/12/2018 Comp Metabolic Hnz262 Cr eat 1.8 mg/dL 10/12/2018 Comp Metabolic Klw931 eG FR 30 ml/min/1.73m2 10/12 Comp Metabolic Uzg696 BUN 19 mg/dL 10/12/2018 Comp Metabolic Vlt576 B/ C Ratio 10.5 Ratio 10/12/2018 Comp Metabolic Vnn855 CA LCIUM 9.0 mg/dL 10/12/2018 Comp Metabolic Nng621 AL K PHOS 74 U/L 10/12/2018 Comp Metabolic Uoq265 T(SGOT) 21 U/L 10/12/2018 Comp Metabolic Ina384 AL T(SGPT) 22 U/L 10/12/2018 Comp Metabolic Dhr364 BI LI T 0.4 mg/dL 10/12/2018 Comp Metabolic Jkg505 AL BUMIN 3.9 g/dL 10/12/2018 Comp Metabolic Mib834 TP RO 6.1 g/dL 10/12/2018 Comp Metabolic Msp631 GL OB 2.2 g/dL 10/12/2018 Comp Metabolic For866 A/ G Ratio 1.7 Ratio 10/12/2018 Comp Metabolic Zgh258 Os mo 286 mOsmo 10/12/2018 Cbc With [...] 28.0 pg 10/12/2018 Cbc With Differential Ord2 [place]% 16.6 % 10/12/2018 Cbc With Differential Ord2 [...] 1.77 K/ul 10/12/2018 Cbc With Differential Ord2 [place] ABS# 2.4 K/ul 10/12/2018 Cbc With Differential Ord2 Eos ABS# 0.0 K/ul 10/12/2018 Cbc With Differential Ord2 Baso ABS# 0.0 K/ul 10/12/2018 Electrolytes Ord62 NA 140 mEq/L 09/15/2018 Electrolytes Ord62 K 4.2 mEq/L 09/15/2018 Electrolytes Ord62 CL 111 mEq/L 09/15/2018 Electrolytes Ord62 CO2 20.0 mEq/L 09/15/2018 Electrolytes Ord62 ANION GAP 13 09/15/2018 Comp Metabolic Jih575 NA 140 mEq/L 01/10/2018 Comp Metabolic Dbf782 K 3.8 mEq/L 01/10/2018 Comp Metabolic Akq805 CL 106 mEq/L 01/10/2018 Comp Metabolic Zqp285 CO2 25.0 mEq/L 01/10/2018 Comp Metabolic Jgu770 AN ION GAP 13 01/10/2018 Comp Metabolic Ufw436 GL UCOSE 110 mg/dL 01/10/2018 Comp Metabolic Nve651 Cr eat 1.5 mg/dL 01/10/2018 Comp Metabolic Vqb726 eG FR 37 ml/min/1.73m2 01/10 Comp Metabolic Red169 BUN 23 mg/dL 01/10/2018 Comp Metabolic Oli591 B/ C Ratio 15.3 Ratio 01/10/2018 Comp Metabolic Ebf827 CA LCIUM 9.2 mg/dL 01/10/2018 Comp Metabolic Ydh627 AL K PHOS 87 U/L 01/10/2018 Comp Metabolic Xjk820 T(SGOT) 15 U/L 01/10/2018 Comp Metabolic Szj762 AL T(SGPT) 9 U/L 01/10/2018 Comp Metabolic Dml162 BI LI T 0.4 mg/dL 01/10/2018 Comp Metabolic Squ951 AL BUMIN 3.8 g/dL 01/10/2018 Comp Metabolic Jrl689 TP RO 6.2 g/dL 01/10/2018 Comp Metabolic Pma645 GL OB 2.4 g/dL 01/10/2018 Comp Metabolic Foz641 A/ G Ratio 1.6 Ratio 01/10/2018 Comp Metabolic Otz467 Os mo 284 mOsmo 01/10/2018 C-Reactive Protein [...] 27.6 pg 01/10/2018 Cbc With Differential Ord2 [place]% 15.2 % 01/10/2018 Cbc With Differential Ord2 [...] 1.47 K/ul 01/10/2018 Cbc With Differential Ord2 [place] ABS# 1.0 K/ul 01/10/2018 Cbc With Differential Ord2 Eos ABS# 0.1 K/ul 01/10/2018 Cbc With Differential Ord2 Baso ABS# 0.0 K/ul 01/10/2018 Sed Rate Ord21 ESR 12 mm/hr 01/10/2018 Free T4 Hbu742 FREE T4 0.57 ng/dL 12/06/2017 Tsh Ord6 TSH (3rd IS) 7.40 uIU/mL 12/06/2017 C A/B FLU 7820916 Influe nza A Scr Negative 06/22/2017 C A/B FLU [id number] Influe nza B Scr Negative 06/22/2017 C A/B FLU [id number] Influe nza Intrp B AG:PRID:PT:NOSE:NOM:IF See Footnote 06/22/2017 Comp Metabolic Jzr357 NA 140 mEq/L 08/30/2016 Comp Metabolic Pgv167 K 3.3 mEq/L 08/30/2016 Comp Metabolic Qli949 CL 104 mEq/L 08/30/2016 Comp Metabolic Qcd335 CO2 26.0 mEq/L 08/30/2016 Comp Metabolic Gih896 AN ION GAP 13 08/30/2016 Comp Metabolic Bdb542 GL UCOSE 143 mg/dL 08/30/2016 Comp Metabolic Zkb631 Cr eat 1.3 mg/dL 08/30/2016 Comp Metabolic Orx810 eG FR 43 ml/min/1.73m2 08/30 Comp Metabolic Muf934 BUN 19 mg/dL 08/30/2016 Comp Metabolic Rxi827 B/ C Ratio 14.3 Ratio 08/30/2016 Comp Metabolic Szx837 CA LCIUM 10.0 mg/dL 08/30/2016 Comp Metabolic Wnv035 AL K PHOS 67 U/L 08/30/2016 Comp Metabolic Gcd623 T(SGOT) 28 U/L 08/30/2016 Comp Metabolic Vgs862 AL T(SGPT) 43 U/L 08/30/2016 Comp Metabolic Rpo964 BI LI T 0.4 mg/dL 08/30/2016 Comp Metabolic Aig734 AL BUMIN 4.0 g/dL 08/30/2016 Comp Metabolic Hsk124 TP RO 6.2 g/dL 08/30/2016 Comp Metabolic Shh171 GL OB 2.2 g/dL 08/30/2016 Comp Metabolic Msg914 A/ G Ratio 1.8 Ratio 08/30/2016 Comp Metabolic Bnw091 Os mo 284 mOsmo 08/30/2016 %Hba1C Vqg270 % HbA1c 78461-8 6.1 % 08/30/2016 %Hba1C Fmr623 Gluc Ave 128 mg/dL 08/30/2016 Free T4 Hfc209 FREE T4 0.75 ng/dL 06/25/2016 Tsh Ord6 [...] Ord90 Mag 2.1 mg/dL 12/16/2015 Free T4 Hne750 FREE T4 0.92 ng/dL 12/16/2015 Tsh Ord6 [...] 28.5 pg 08/04/2015 Cbc With Differential Ord2 [place]% 6.1 % 08/04/2015 Cbc With Differential Ord2 [...] 0.73 K/ul 08/04/2015 Cbc With Differential Ord2 [place] ABS# 0.5 K/ul 08/04/2015 Cbc With Differential Ord2 Eos ABS# 0.1 K/ul 08/04/2015 Cbc With Differential Ord2 Baso ABS# 0.0 K/ul 08/04/2015 Cbc With Differential Ord2 New Analyzer Notice Please note new ref ranges s tarting 07-09-2015 due to implemntation of new five part differential hematolgy analyzer. 08/04/2015 C-Reactive Protein Qnt Crqnt CRP 0.8 mg/dl 08/04/2015 Comp Metabolic Cpv559 NA 139 mEq/L 08/04/2015 Comp Metabolic Udc586 K 3.4 mEq/L 08/04/2015 Comp Metabolic Nxj701 CL 109 mEq/L 08/04/2015 Comp Metabolic Opb326 CO2 22.0 mEq/L 08/04/2015 Comp Metabolic Xyx305 AN ION GAP 11 08/04/2015 Comp Metabolic Vnz010 GL UCOSE 177 mg/dL 08/04/2015 Comp Metabolic Gxc661 Cr eat 1.0 mg/dL 08/04/2015 Comp Metabolic Vxu193 eG FR 64 ml/min/1.73m2 08/04 Comp Metabolic Wfd323 BUN 35 mg/dL 08/04/2015 Comp Metabolic Ued980 B/ C Ratio 36.8 Ratio 08/04/2015 Comp Metabolic Kru401 CA LCIUM 8.5 mg/dL 08/04/2015 Comp Metabolic Vht013 AL K PHOS 57 U/L 08/04/2015 Comp Metabolic Plm350 T(SGOT) 21 U/L 08/04/2015 Comp Metabolic Chr787 AL T(SGPT) 63 U/L 08/04/2015 Comp Metabolic Hof380 BI LI T 0.3 mg/dL 08/04/2015 Comp Metabolic Hao569 AL BUMIN 3.1 g/dL 08/04/2015 Comp Metabolic Qwt698 TP RO 5.1 g/dL 08/04/2015 Comp Metabolic Bsd916 GL OB 2.0 g/dL 08/04/2015 Comp Metabolic Mwf749 A/ G Ratio 1.6 Ratio 08/04/2015 Comp Metabolic Mnz569 Os mo 290 mOsmo 08/04/2015 Cpk Ord61 CPK 52 U/L 08/04/2015 Random Urine Protein/Creatinine Ratio Tfc4942 U Prot 8.5 mg/dl 05/27/2015 Random Urine Protein/Creatinine Ratio Hpo1867 U CREAT 201.0 mg/dL 05/27/2015 Random Urine Protein/Creatinine Ratio Tka7216 R MTP/Creat Ratio 0.04 05/27/2015 Urinalysis Ord28 [...] hours from collection if refrigerated) 05/27/2015 Renal Zsl983 NA 136 mEq/L 05/26/2015 Renal Qta484 K 3.3 mEq/L 05/26/2015 Renal Tkk475 CL 99 mEq/L 05/26/2015 Renal Nct864 CO2 25.0 mEq/L 05/26/2015 Renal Njw030 ANION GAP 15 05/26/2015 Renal Mjr184 Osmo 274 mOsmo 05/26/2015 Renal Rav214 GLUCOSE 106 mg/dL 05/26/2015 Renal Xnl451 BUN 17 mg/dL 05/26/2015 Renal Piy305 Creat 1.4 mg/dL 05/26/2015 Renal Tyv818 eGFR 40 ml/min/1.73m2 05/26/2015 Renal Vyd457 B/C Ratio 12.0 Ratio 05/26/2015 Renal Hvx963 CALCIUM 9.3 mg/dL 05/26/2015 Renal Yqu222 PHOS 3.4 mg/dL 05/26/2015 Renal Rvr996 ALBUMIN 3.4 g/dL 05/26/2015 Cbc With Differential [...] Ord2 RDW 14.3 % 04/21/2015 Free T4 Ofc427 FREE T4 0.91 ng/dL 04/21/2015 %Hba1C Bnq926 % HbA1c 99330-0 5.8 % 04/21/2015 %Hba1C Lpk403 Gluc Ave 120 mg/dL 04/21/2015 Comp Metabolic Ibb395 NA 137 mEq/L 04/21/2015 Comp Metabolic Kpd219 K 3.6 mEq/L 04/21/2015 Comp Metabolic Wgk427 CL 98 mEq/L 04/21/2015 Comp Metabolic Cnq673 CO2 25.0 mEq/L 04/21/2015 Comp Metabolic Uyc915 AN ION GAP 18 04/21/2015 Comp Metabolic Rpy492 GL UCOSE 83 mg/dL 04/21/2015 Comp Metabolic Clz576 Cr eat 1.6 mg/dL 04/21/2015 Comp Metabolic Icq579 eG FR 36 ml/min/1.73m2 04/21 Comp Metabolic Nld076 BUN 28 mg/dL 04/21/2015 Comp Metabolic Opn749 B/ C Ratio 17.9 Ratio 04/21/2015 Comp Metabolic Wvh060 CA LCIUM 9.5 mg/dL 04/21/2015 Comp Metabolic Eww669 AL K PHOS 60 U/L 04/21/2015 Comp Metabolic Dqr597 T(SGOT) 22 U/L 04/21/2015 Comp Metabolic Ouo183 AL T(SGPT) 10 U/L 04/21/2015 Comp Metabolic Hvf827 BI LI T 0.4 mg/dL 04/21/2015 Comp Metabolic Bjr450 AL BUMIN 4.0 g/dL 04/21/2015 Comp Metabolic Xzg553 TP RO 6.8 g/dL 04/21/2015 Comp Metabolic Luc199 GL OB 2.8 g/dL 04/21/2015 Comp Metabolic Umn448 A/ G Ratio 1.4 Ratio 04/21/2015 Comp Metabolic Ukw755 Os mo 278 mOsmo 04/21/2015 Tsh Ord6 [...] No alteration of consciousness 12/16/2015 Psychiatric anxiety 2 06/2015 Psychiatric depression 0 12/16/2015 Constitutional No recent [...] Respiratory dyspnea on exertion 09/10/2015 Respiratory dyspnea /11/2015 Gastrointestinal No abdominal pain 09/10/2015 Gastrointestinal No [...] Respiratory dyspnea on exertion 05/16/2015 Respiratory dyspnea 2 Constitutional recent illness 05/12/2015 Constitutional fatigue 1 [...] lips 10/12/2018 None Full Exam - General 1995 [...] normal 09/13/2018 None Full Exam - General 1995 Eyes conjunctiva/eyelids Overall: cornea clear 09/13/2018 None [...] Procedure Codes Date THER/PROPH/DIAG INJ SC/IM CPT-4: 56066 06/22/2017 TRIAMCINOLONE ACET I [place] NOS CPT-4: J3301 06/22/2017 THER/PROPH/DIAG INJ SC/IM CPT-4: 94021 08/04/2015 TRIAMCINOLONE ACET I [place] NOS CPT-4: J3301 08/04/2015 Vital Signs Date Vital 10/12/2018 Blood Pressure 1: 110/74 Code: 8480-6 Heart Rate 1: 105 bpm Height: 5'1" SpO2: 95% Weight: 09/13/2018 Blood Pressure 1: 156/86 Code: 8480-6 BMI: 32.3 Code: 96052-6 Heart Rate 1: 90 bpm Height: 5'1" SpO2: 98% Weight: 171 lbs 05/04/2018 Blood Pressure 1: 158/88 Code: 8480-6 BMI: 33.3 Code: 56535-5 Heart Rate 1: 63 bpm Height: 5'1" SpO2: 98% Weight: 176 lbs 01/10/2018 Blood Pressure 1: 138/88 Code: 8480-6 BMI: 31.9 Code: 09045-0 Heart Rate 1: 78 bpm Height: 5'1" SpO2: 99% Weight: 169 lbs 12/06/2017 Blood Pressure 1: 158/98 Code: 8480-6 BMI: 32.3 Code: 80215-8 Heart Rate 1: 60 bpm Height: 5'1" SpO2: 100% Weight: 171 lbs 06/22/2017 Blood Pressure 1: 168/92 Code: 8480-6 BMI: 32.6 Code: 27999-7 Heart Rate 1: 133 bpm Height: 5'1" SpO2: 97% Temperature: 37.6 (C ) / 99.7 (F) Weight: 172 lbs 8 oz 03/02/2017 Blood Pressure 1: 168/90 Code: 8480-6 BMI: 35.0 Code: 60324-1 Heart Rate 1: 80 bpm Height: 5'1" SpO2: 94% Weight: 185 lbs 01/24/2017 Blood Pressure 1: 130/68 Code: 8480-6 BMI: 35.3 Code: 61100-4 Heart Rate 1: 66 bpm Height: 5'1" SpO2: 98% Weight: 187 lbs 10/13/2016 Blood Pressure 1: 136/74 Code: 8480-6 BMI: 35.1 Code: 42812-4 Heart Rate 1: 71 bpm Height: 5'1" SpO2: 97% Weight: 186 lbs 08/30/2016 Blood Pressure 1: 128/80 Code: 8480-6 BMI: 35.0 Code: 81911-2 Heart Rate 1: 75 bpm Height: 5'1" SpO2: 96% Weight: 185 lbs 8 oz 07/02/2016 Blood Pressure 1: 140/78 Code: 8480-6 Heart Rate 1: 63 bpm Height: 5'1" SpO2: 98% 06/24/2016 Blood Pressure 1: 148/100 Code: 8480-6 BMI: 34.2 Code: 06842-8 Heart Rate 1: 110 bpm Height: 5'1" SpO2: 94% Weight: 181 lbs 05/04/2016 Blood Pressure 1: 150/90 Code: 8480-6 Blood Pressure 1: 134/82 Code: 8480-6 BMI: 34.6 Code: 63249-0 Heart Rate 1: 74 bpm Height: 5'1" SpO2: 98% Weight: 183 lbs 04/06/2016 Blood Pressure 1: 156/92 Code: 8480-6 Blood Pressure 1: 158/88 Code: 8480-6 BMI: 34.8 Code: 12552-0 Heart Rate 1: 69 bpm Height: 5'1" SpO2: 97% Weight: 184 lbs 03/18/2016 Blood Pressure 1: 148/90 Code: 8480-6 BMI: 35.1 Code: 59500-2 Heart Rate 1: 106 bpm Height: 5'1" SpO2: 94% Weight: 186 lbs 03/11/2016 Blood Pressure 1: 140/90 Code: 8480-6 BMI: 35.1 Code: 57254-1 Heart Rate 1: 103 bpm Height: 5'1" SpO2: 96% Weight: 186 lbs 02/24/2016 Blood Pressure 1: 130/80 Code: 8480-6 BMI: 34.4 Code: 66716-3 Heart Rate 1: 110 bpm Height: 5'1" SpO2: 96% Weight: 182 lbs 12/16/2015 Blood Pressure 1: 144/98 Code: 8480-6 BMI: 33.8 Code: 73024-4 Heart Rate 1: 97 bpm Height: 5'1" SpO2: 98% Weight: 179 lbs 10/30/2015 Blood Pressure 1: 138/88 Code: 8480-6 BMI: 33.6 Code: 04972-1 Heart Rate 1: 88 bpm Height: 5'1" SpO2: 98% Weight: 178 lbs 09/23/2015 Blood Pressure 1: 152/94 Code: 8480-6 BMI: 32.7 Code: 00611-6 Heart Rate 1: 83 bpm Height: 5'1" SpO2: 97% Weight: 173 lbs 09/10/2015 Blood Pressure 1: 136/82 Code: 8480-6 BMI: 32.1 Code: 19704-1 Heart Rate 1: 105 bpm Height: 5'1" SpO2: 97% Weight: 170 lbs 08/12/2015 Blood Pressure 1: 132/70 Code: 8480-6 BMI: 31.2 Code: 54102-9 Heart Rate 1: 88 bpm Height: 5'1" SpO2: 95% Temperature: 36.7 (C ) / 98.0 (F) Weight: 165 lbs 08/04/2015 Blood Pressure 1: 136/80 Code: 8480-6 BMI: 31.0 Code: 64378-8 Heart Rate 1: 110 bpm Height: 5'1" SpO2: 98% Weight: 164 lbs 05/16/2015 Blood Pressure 1: 138/88 Code: 8480-6 BMI: 32.9 Code: 65334-4 Heart Rate 1: 87 bpm Height: 5'1" SpO2: 90% Weight: 174 lbs 05/12/2015 BMI: 31.7 Code: 92955-6 Height: 5'1" Weight: 168 lbs 04/21/2015 Blood Pressure 1: 124/82 Code: 8480-6 BMI: 32.1 Code: 44000-8 Heart Rate 1: 87 bpm Height: 5'1" [...] of the thyroid 12/06/2017 None hypothyroid 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 marley 12/06/2017 None hypothyroid Onset and Resolution [...] of the thyroid 08/30/2016 None hypothyroid 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 marley 08/30/2016 None hypothyroid Onset and Resolution [...] of the thyroid 05/04/2016 None hypothyroid 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 marley 05/04/2016 None hypothyroid Onset and Resolution [...] of the thyroid 04/06/2016 None hypothyroid 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 marley 04/06/2016 None hypothyroid Onset and Resolution [...] Alleviating Factors medication 12/16/2015 None hypothyroid 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 marley 12/16/2015 None hypothyroid Location at the [...] than malignant neoplasm[ICD10: Z09] Britney Maya MD, [facility] CPT-4: 38542 10/12/2018 04923 EST. PATIENT, LEVEL III Diagnosis: Hypokalemia[ICD10: E87.6] Diagnosis: Interstitial pulmonary disease, unspecified[ICD10: J84.9] Britney Maya MD, [facility] CPT-4: 83997 09/13/2018 05486 EST. PATIENT, LEVEL IV Diagnosis: Essential (primary) hypertension[ICD10: I10] Diagnosis: Interstitial pulmonary disease, unspecified[ICD10: J84.9] Diagnosis: Chronic kidney disease, stage 3 (moderate)[ICD10: N18.3] Diagnosis: Mixed hyperlipidemia[ICD10: E78.2] Britney Maya MD, [facility] CPT-4: 64438 05/04/2018 62130 EST. PATIENT, LEVEL IV Diagnosis: Essential (primary) hypertension[ICD10: I10] Diagnosis: Interstitial pulmonary disease, unspecified[ICD10: J84.9] Diagnosis: Chronic kidney disease, stage 3 (moderate)[ICD10: N18.3] Diagnosis: Mixed hyperlipidemia[ICD10: E78.2] Britney Maya MD, [facility] CPT-4: 39293 01/10/2018 37192 EST. PATIENT, LEVEL IV Diagnosis: Other specified hypothyroidism[ICD10: E03.8] Diagnosis: Essential (primary) hypertension[ICD10: I10] Britney Maya MD, [facility] CPT-4: 23781 12/06/2017 44675 EST. PATIENT, LEVEL IV Diagnosis: Other malaise[ICD10: R53.81] Diagnosis: Other fatigue[ICD10: R53.83] Britney Maya MD, [facility] CPT-4: 49566 06/22/2017 62227 EST. PATIENT, LEVEL IV Diagnosis: Acute laryngopharyngitis[ICD10: J06.0] Diagnosis: Other acute sinusitis[ICD10: J01.80] Diagnosis: Other allergic rhinitis[ICD10: J30.89] Britney Maya MD, [facility] CPT-4: 83435 03/02/2017 79538 EST. PATIENT, LEVEL IV Diagnosis: Generalized hyperhidrosis[ICD10: R61] Diagnosis: Other acute sinusitis[ICD10: J01.80] Diagnosis: Other fatigue[ICD10: R53.83] Diagnosis: Interstitial pulmonary disease, unspecified[ICD10: J84.9] Britney Maya MD, [facility] CPT-4: 42975 01/24/2017 85399 EST. PATIENT, LEVEL IV Diagnosis: Acute laryngopharyngitis[ICD10: J06.0] Diagnosis: Other acute sinusitis[ICD10: J01.80] Britney Maya MD, [facility] CPT- 4: 62002 10/13/2016 ([id number]) 79422 EST. P ATIENT, LEVEL IV Diagnosis: Essential (primary) hypertension[ICD10: I10] Diagnosis: Drug-induced polyneuropathy[ICD10: G62.0] Diagnosis: Impaired fasting glucose[ICD10: R73.01] Catie Maya MD, [facility] CPT-4: 78273 08/30/2016 42326 EST. PATIENT, LEVEL IV Diagnosis: Pain in thoracic spine[ICD10: M54.6] Diagnosis: Pain in left shoulder[ICD10: M25.512] Diagnosis: Zoster without complications[ICD10: B02.9] Britney Maya MD, [facility] CPT-4: 19203 07/02/2016 72604 EST. PATIENT, LEVEL III Diagnosis: Other specified hypothyroidism[ICD10: E03.8] Diagnosis: Menopausal and female climacteric states[ICD10: N95.1] Diagnosis: Essential (primary) hypertension[ICD10: I10] Britney Maya MD, [facility] CPT-4: 51589 06/24/2016 ([id number]) 11316 EST. P ATIENT, LEVEL IV Diagnosis: Essential (primary) hypertension[ICD10: I10] Diagnosis: Atrophy of thyroid (acquired)[ICD10: E03.4] Diagnosis: Pain in left foot[ICD10: M79.672] Meghana Maya MD, [facility] CPT-4: 14178 05/04/2016 ([id number]) 26714 EST. P ATIENT, LEVEL IV Diagnosis: Essential (primary) hypertension[ICD10: I10] Diagnosis: Pain in left leg[ICD10: M79.605] Diagnosis: Pain in left foot[ICD10: M79.672] Diagnosis: Atrophy of thyroid (acquired)[ICD10: E03.4] Meghana Maya MD, C CPT-4: 80086 04/06/2016 ([id number]) 32856 EST. P ATIENT, LEVEL III Diagnosis: Essential (primary) hypertension[ICD10: I10] Diagnosis: Localized edema[ICD10: R60.0] Catie Maya MD, [facility] CPT- 4: 97499 03/18/2016 ([id number]) 42878 EST. P ATIENT, LEVEL III Diagnosis: Essential (primary) hypertension[ICD10: I10] Diagnosis: Pain in left foot[ICD10: M79.672] Catie Maya MD, [facility] CPT- 4: 29729 03/11/2016 ([id number]) 22087 EST. P ATIENT, LEVEL III Diagnosis: Localized edema[ICD10: R60.0] Diagnosis: Essential (primary) hypertension[ICD10: I10] Catie Maya MD, [facility] CPT-4: 67790 02/24/2016 ([id number]) 47267 EST. P ATIENT, LEVEL IV Diagnosis: Hypothyroidism, unspecified[ICD10: E03.9] Diagnosis: Essential (primary) hypertension[ICD10: I10] Meghana Maya MD, C CPT-4: 75112 12/16/2015 ([id number]) 47022 EST. P ATIENT, LEVEL III Diagnosis: Essential (primary) hypertension[ICD10: I10] Diagnosis: Hypothyroidism, unspecified[ICD10: E03.9] Meghana Maya MD, C CPT-4: 98833 10/30/2015 ([id number]) 12684 EST. P ATIENT, LEVEL IV Diagnosis: Diarrhea, unspecified[ICD10: R19.7] Diagnosis: Essential (primary) hypertension[ICD10: I10] Meghana Maya MD, C CPT-4: 09654 09/23/2015 ([id number]) 47348 EST. P ATIENT, LEVEL III Diagnosis: Essential (primary) hypertension[ICD10: I10] Diagnosis: Diarrhea, unspecified[ICD10: R19.7] Meghana Maya MD, [facility] CPT- 4: 93316 09/10/2015 ([id number]) 90801 EST. P ATIENT, LEVEL III Diagnosis: Acute maxillary sinusitis, unspecified[ICD10: J01.00] Diagnosis: Myositis, unspecified[ICD10: M60.9] Meghana Maya MD, [facility] CPT- 4: 24457 08/12/2015 ([id number]) 23433 EST. P ATIENT, LEVEL IV Diagnosis: Essential (primary) hypertension[ICD10: I10] Diagnosis: Pain in left leg[ICD10: M79.605] Diagnosis: Other myositis, multiple sites[ICD10: M60.89] Diagnosis: Hypothyroidism, unspecified[ICD10: E03.9] Meghana Maya MD, C CPT-4: 21094 08/04/2015 95105 EST. PATIENT, LEVEL III Diagnosis: Dyspnea, unspecified[ICD10: R06.00] Diagnosis: Essential (primary) hypertension[ICD10: I10] Meghana Maya MD, C CPT-4: 94020 05/16/2015 ([id number]) 48091 EST. P ATIENT, LEVEL II Diagnosis: Dyspnea, unspecified[ICD10: R06.00] Meghana Maya MD, [facility] CPT- 4: 40656 05/12/2015 ([id number]) [facility] LEVEL 4 Diagnosis: Essential (primary) hypertension[ICD10: I10] Diagnosis: Impaired fasting glucose[ICD10: R73.01] Diagnosis: Mixed hyperlipidemia[ICD10: E78.2] Diagnosis: Hypothyroidism, unspecified[ICD10: E03.9] Diagnosis: Encounter for screening mammogram for malignant neoplasm of breast[ICD10: Z12.31[facility] CPT-4: 40086 04/21/2015 Plan of Care Planned Activity Notes C odes Status Date Visit Plan: Hypertension - The melanie ent [...] to monitor - pt has seen a registered nurse post partum in the 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 Hospital follow up - This was a follow up appointment from the patient's hospitalization during which time Dr. Maya formulated the assessment and plan for the follow up on this patient's medical condition. 10/12/2018 Appointment: Britney Bower WPtel: [facility] (30 min) Complex 10/12/2018 Patient Education: Patient Medication Summary Completed 10/12/2018 Visit Plan: Hypokalemia - will send RX for potassium and monitor labs Interstitial lung disease - pt is to follow up with specialist and notify clinic with any changes in current treatment plan 09/13/2018 Appointment: [phone] (30 min) Complex 09/13/2018 Patient Education: Patient [...] treatment plan 05/04/2018 Appointment: [facility]el[phone] (15 min) Moderate 05/04/2018 Patient Education: Patient [...] treatment plan 01/10/2018 Appointment: [facility]el[phone] (30 min) Complex 01/10/2018 Patient Education: Patient [...] of control. 12/06/2017 Appointment: Brit[facility]ower [facility]el[phone] (15 min) Moderate 12/06/2017 Patient Education: Patient Medication Summary Completed 12/06/2017 Visit Plan: URI - Pt advised to inc rease fluids, vitamin C. Discussed natural and expected course of this diagnosis and need to alert me if symptoms do not follow expected course, or if any worse. RX sent to patient's pharmacy. 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 Maya - will increase clonidine to BID - pt is to consider referral to dermatology - notify clinic if symptoms do not improve, if they worsen, or with any other questions or concerns. 01/24/2017 Appointment: Britney Bower WPtel: [phone] [facility] (30 min) Complex 01/24/2017 Patient Education: [...] show improvement. 10/13/2016 Appointment: Britney Bower WPtel: [phone] [facility] (30 min) Complex 10/13/2016 Patient Education: [...] of steroids-check Hgb A1C Peripheral neuropathy-improved with [id number] Dr Duran for tarsel tunnel syndrome 08/30/2016 Appointment: Catie Shoemaker [facility]el[phone] [place] (15 min) Moderate 08/30/2016 Patient Education: Patient Medication Summary Completed 08/30/2016 Patient Education: Obesity Completed 08/30/2016 Care Plan: %Hba1C RAEANN C : 26124-4 Ordered 08/30/2016 Care Plan: Comp Metabolic Ordered [...] contagious. 07/02/2016 Appointment: Britney Bower [facility]Ptel[phone] [place] (30 min) Complex 07/02/2016 Patient Education: Patient [...] control. 06/24/2016 Appointment: Brit[facility] Bower [facility]el[phone] (30 min) Complex 06/24/2016 Patient Education: Patient Medication Summary Completed 06/24/2016 Patient Education: Obesity Completed 06/24/2016 Patient Education: Hypertension Completed 06/24/2016 Patient Education: Patient Medication Summary Completed 05/14/2016 Care Plan: SCREENINGMAMMOGRAPHYDIGITAL LOINC : 79348-9 Pending 05/14/2016 Visit Plan: Hypertension - well [...] is painful. 05/04/2016 Appointment: Meghana Maya WPtel: [phone] [facility] (15 min) Moderate 05/04/2016 Patient Education: Patient [...] current medication. 04/06/2016 Appointment: Meghana Maya WPtel: [phone] [facility] (15 min) Moderate 04/06/2016 Patient Education: Patient Medication Summary Completed 04/06/2016 Patient Education: Obesity Completed 04/06/2016 Care Plan: Referral Order SNOMED-CT : [id number] Pending 04/06/2016 Visit Plan: Edema-improved with low [...] acute concerns. 03/18/2016 Appointment: Catie Shoemaker WPtel: [phone] [phone] (15 min) Moderate 03/18/2016 Patient Education: [...] xray left foot-recommend she follow up with cardiopulmonary technician at regarding left foot pain/numbness/weakness. Patient has noticed worsening symptoms since decreasing prednisone. 03/11/2016 Appointment: Catie Shoemaker WPtel: [phone] (15 min) Moderate 03/11/2016 Patient Education: Patient Medication Summary Completed 03/11/2016 Patient Education: Obesity Completed 03/11/2016 Appointment: Catie Shoemaker WPtel: [phone] (30 min) Complex 03/09/2016 Visit Plan: [...] daily 02/24/2016 Appointment: Catie Shoemaker WPtel: [phone] [phone] (15 min) Moderate 02/24/2016 Patient Education: Patient Medication Summary Completed 02/24/2016 Patient Education: Obesity Completed 02/24/2016 Patient Education: Hypertension Completed 02/24/2016 Appointment: Lodi Meghana WPtel: [phone] [facility] (15 min) Moderate 02/23/2016 Visit Plan: Hypertension [...] control. 12/16/2015 Appointment: Meghana Maya WPtel: [phone] [facility] (15 min) Moderate 12/16/2015 Patient Education: Patient [...] Complex 10/23/2015 [facility]ment[phone] ([facility] min) Moderate 10/23/2015 Visit Plan: Hypertension [...] home. 09/10/2015 Appointment: [phone] (15 min) Moderate 09/10/2015 Patient Education: [...] min) Complex 07/24/2015 Appointment: Meghana Maya WPtel[facility] (15 min) Moderate 07/24/2015 Appointment: Lab [...] Education: Hypertension Completed 04/21/2015 Care Plan: SCREENINGMAMMOGRAPHYDIGITAL [facility] : 66283-6 Ordered 04/21/2015 Appointment: Meghana Maya WPtel: [address] [place], [place] [address] [place] (S) New Patient 04/01/2015 Referral: Sharon [...] SPECIALIZES IN FOOT AND ANKLE DISEASE AT [address] INCREASE THE METOPROLOL TO 1.5 PILLS [...] of steroids-check Hgb A1C Peripheral neuropathy-improved with [id number] Dr Duran for tarsel tunnel syndrome PATIENT [...] xray left foot-recommend she follow up with cardiopulmonary technician at regarding left foot pain/numbness/weakness. 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 Maya - will increase clonidine to BID - pt is to consider referral to dermatology - notify clinic if symptoms do not improve, if they worsen, or with any other questions or concerns. probiotic - [employer] OOTU, probiotic pearls, etc - take three times [...] to monitor - pt has seen a registered nurse post partum in the past and does not want [...]
--- OUTSIDE RECORDS SUMMARY | 2019-08-14 06:27 | XMS REPORT | CCD ---
Author Author Carolann Shoemaker Organization Meghana Maya MD, [facility] Address [facility] [place] [address] Phone Care Team Providers Care Website Developer Name Role Phone PP Unavailable CCM Unavailable Summary Purpose Interface Exchange Family history Mother Diagnosis Age At Onset Hypertension Unknown Breast cancer Unknown Osteoporosis Unknown Father Diagnosis Age At Onset kidney disease Unknown Cancer Unknown Hyperlipidemia Unknown Social History Social History Element Codes Description Effective Dates Marital status Unknown D ivorced 04/21/2015 Number of children Unknown 1 04/21/2015 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/21/[address]: 201032360 Never smoker 04/21/2015 Alcohol history Unknown occasionally drinks alcohol 04/21/2015 Allergies, Adverse Reactions, Alerts Substance Reaction Codes Entered Date Inactivated Date Status LPASDYN-QID-LAD REDU CTASE INHIBITORS myalgias Unknown 016 No [...] E R 10 mEq tablet,extended release RxNorm: 444849 Tablet(s) TAKE ONE TABLET BY MOUTH DAILY 09/15/2018 03/13/2019 Active candesartan 4 mg tablet RxNorm: 241954 1 Tablet(s) PO daily 09/15/2018 10/14/2018 Inactive clonidine HCl 0.1 mg tablet RxNorm: 113355 [facility] TABLET [facility] DAY 09/14/2018 02/10/2019 Ac tive losartan 25 mg tablet RxNorm: 790222 TAKE ONE TABLET BY MOUTH DAILY 09/14/2018 11/12/2018 Ac tive clonidine HCl 0.1 mg tablet RxNorm: 829912 Tablet(s) TAKE ONE TA BLET BY MOUTH AT BEDTIME 09/13/2018 No Stop Date Active venlafaxine ER 150 m g capsule,extended release 24 hr RxNorm: 100905 TAKE ONE CAPSULE BY MOUTH DAILY 05/15/2018 11/10/2018 Active Lipitor 20 mg tablet RxNorm: 153801 TAKE ONE TABLET BY MOUTH DAILY 05/15/2018 11/10/2018 Ac tive losartan 25 mg tablet RxNorm: 384461 TAKE ONE TABLET BY MOUTH DAILY 04/17/2018 07/14/2018 In active losartan 25 mg tablet RxNorm: 549054 TAKE ONE TABLET BY MOUTH DAILY 04/17/2018 04/16/2018 In active Lipitor 20 mg tablet RxNorm: 414450 1 Tablet(s) PO daily 01/12/2018 01/11/2018 Inactive Lipitor 20 mg tablet RxNorm: 946976 1 Tablet(s) PO daily 01/12/2018 05/11/2018 Inactive clonidine HCl 0.1 mg tablet RxNorm: 059053 TAKE ONE TABLET [facility] TW[facility] DAY 01/04/2018 07/02/2018 In active potassium chloride E R 10 mEq tablet,extended release RxNorm: 109752 TAKE ONE TABLET BY MOUTH DAILY 01/04/2018 09/12/2018 Inactive losartan 25 mg tablet RxNorm: 786304 TAKE ONE TABLET BY MOUTH DAILY 01/03/2018 04/02/2018 In active levothyroxine 50 mcg tablet RxNorm: 174139 1 Tablet(s) PO daily 12/08/2017 09/12/2018 Inactive losartan 25 mg tablet RxNorm: 822525 1 Tablet(s) PO daily 12/06/2017 01/02/2018 Inactive venlafaxine ER 150 m g capsule,extended release 24 hr RxNorm: 169849 TAKE ONE CAPSULE BY MOUTH DAILY 12/06/2017 05/04/2018 Inactive metoprolol succinate ER 50 mg tablet,extended release 24 hr RxNorm: 684721 TAKE ONE TABLET BY MOUTH DAILY 08/29/2017 01/25/2018 Inactive metoprolol succinate ER 50 mg tablet,extended release 24 hr RxNorm: 207496 TAKE ONE TABLET BY MOUTH DAILY 08/29/2017 08/28/2017 Inactive metoprolol succinate ER 50 mg tablet,extended release 24 hr RxNorm: 561867 TAKE ONE TABLET BY MOUTH DAILY 08/29/2017 08/28/2017 Inactive Tamiflu 75 mg capsule RxNorm: 688863 1 Capsule(s) PO BID 06/22/2017 06/26/2017 Inactive Kenalog 40 mg/mL jenna pension for injection RxNorm: 6389228 1.5 Milliliter(s) In j 06/22/2017 06/22/2017 In active clonidine HCl 0.1 mg tablet RxNorm: 523497 TAKE ONE TABLET [facility] TWICE A DAY 06/06/2017 12/02/2017 In active potassium chloride E R 10 mEq tablet,extended release RxNorm: 724125 TAKE ONE TABLET BY MOUTH DAILY 06/06/2017 12/02/2017 Inactive venlafaxine ER 150 m g capsule,extended release 24 hr RxNorm: 096780 TAKE ONE CAPSULE BY MOUTH DAILY 05/23/2017 11/18/2017 Inactive Zithromax 500 mg tablet RxNorm: 696147 1 Tablet(s) PO daily 05/18/2017 05/22/2017 Inactive potassium chloride E R 10 mEq tablet,extended release RxNorm: 587957 TAKE ONE TABLET BY MOUTH DAILY 04/21/2017 05/20/2017 Inactive potassium chloride E R 10 mEq tablet,extended release RxNorm: 881372 TAKE ONE TABLET BY MOUTH DAILY 03/16/2017 04/14/2017 Inactive Zithromax Z-Jacek 250 mg tablet RxNorm: 901957 1 Tablet(s) PO UD 03/02/2017 06/21/2017 Inactive venlafaxine ER 150 m g capsule,extended release 24 hr RxNorm: 912576 Capsule(s) TAKE ONE CAPSULE BY MOUTH DAILY 02/17/2017 02/16/2017 Inactive venlafaxine ER 150 m g capsule,extended release 24 hr RxNorm: 232974 TAKE ONE CAPSULE BY MOUTH DAILY 02/17/2017 05/14/2018 Inactive clonidine HCl 0.1 mg tablet RxNorm: 794582 TAKE ONE TABLET [facility] EVERY NIGHT AT BEDTIME 02/14/2017 01/03/2018 Inactive metoprolol succinate ER 50 mg tablet,extended release 24 hr RxNorm: 639308 TAKE ONE TABLET BY MOUTH DAILY 02/14/2017 08/12/2017 Inactive Protonix 40 mg table t,delayed release RxNorm: 441755 TAKE ONE TABLET [facility] DAILY WHILE ON PREDNISONE 01/25/2017 09/12/2018 Inactive Zithromax Z-Jacek 250 mg tablet RxNorm: 733359 1 Tablet(s) PO UD 01/24/2017 01/03/2018 Inactive potassium chloride E R 10 mEq tablet,extended release RxNorm: 125258 TAKE ONE TABLET BY MOUTH DAILY 01/17/2017 03/15/2017 Inactive clonidine HCl 0.1 mg tablet RxNorm: 994934 TAKE ONE TABLET [facility] EVERY NIGHT AT BEDTIME 01/17/2017 02/13/2017 Inactive potassium chloride E R 10 mEq tablet,extended release RxNorm: 576936 TAKE ONE TABLET BY MOUTH DAILY 12/16/2016 01/14/2017 Inactive venlafaxine ER 150 m g capsule,extended release 24 hr RxNorm: 976570 TAKE ONE CAPSULE BY MOUTH DAILY 11/18/2016 02/15/2017 Inactive clonidine HCl 0.1 mg tablet RxNorm: 162429 TAKE ONE TABLET [facility] EVERY NIGHT AT BEDTIME 11/08/2016 01/06/2017 Inactive clonidine HCl 0.1 mg tablet RxNorm: 244211 1 Tablet(s) BID 10/19/2016 01/16/2017 Inactive potassium chloride E R 10 mEq tablet,extended release RxNorm: 570782 TAKE ONE TABLET BY MOUTH DAILY 10/15/2016 11/13/2016 Inactive Zithromax Z-Jacek 250 mg tablet RxNorm: 330114 1 Tablet(s) PO UD 10/13/2016 01/03/2018 Inactive potassium chloride E R 10 mEq tablet,extended release RxNorm: 654698 TAKE ONE TABLET BY MOUTH DAILY 10/12/2016 10/14/2016 Inactive potassium chloride E R 10 mEq tablet,extended release RxNorm: 892968 Tablet(s) BID TAKE ONE TABLET BY MOUTH TWICE DAILY 09/17/2016 10/11/2016 Inactive potassium chloride E R 10 mEq tablet,extended release RxNorm: 431605 TAKE ONE TABLET BY MOUTH DAILY 09/13/2016 09/16/2016 Inactive clonidine HCl 0.1 mg tablet RxNorm: 978259 Tablet(s) TAKE ONE TA BLET BY MOUTH EVERY NIGHT AT BEDTIME 08/12/2016 10/18/2016 Inactive gabapentin 300 mg ca psule RxNorm: 697547 1 Capsule(s) PO QHS 08/10/2016 No Stop Date Active venlafaxine ER 150 m g capsule,extended release 24 hr RxNorm: 598388 TAKE ONE CAPSULE BY MOUTH DAILY 08/09/2016 11/06/2016 Inactive metoprolol succinate ER 50 mg tablet,extended release 24 hr RxNorm: 596705 TAKE ONE TABLET BY MOUTH DAILY 07/29/2016 01/24/2017 Inactive clonidine HCl 0.1 mg tablet RxNorm: 274704 TAKE ONE TABLET [facility] EVERY NIGHT AT BEDTIME 07/21/2016 08/11/2016 Inactive potassium chloride E R 10 mEq tablet,extended release RxNorm: 050856 TAKE ONE TABLET BY MOUTH DAILY 07/14/2016 09/11/2016 Inactive Prescriber not associated w ith this practice or location acyclovir 400 mg tablet RxNorm: 672038 2 Tablet(s) PO QID 07/02/2016 07/11/2016 Inactive cyclobenzaprine 5 mg tablet RxNorm: 103264 1-2 Tablet(s) PO TID as needed 07/02/2016 07/06/2016 In active capsaicin 0.1 % topi reagan cream RxNorm: 609844 1 Application TOP TID as needed 07/02/2016 09/12/2018 In active Protonix 40 mg table t,delayed release RxNorm: 591727 TAKE ONE TABLET BY [facility] DAILY WHILE ON PREDNISONE 06/29/2016 12/25/2016 Inactive clonidine HCl 0.1 mg tablet RxNorm: 838343 1 Tablet(s) PO QHS 06/25/2016 07/20/2016 Inactive calcium carbonate 50 0 mg calcium (1,250 mg) tablet RxNorm: 210816 TAKE ONE TABLET BY MOUTH DAILY WHILE ON PREDNISONE. MAY STOP TAKING WHEN PREDNISONE IS COMPLETE 06/01/2016 09/12/2018 In active Vitamin D3 1,000 uni t tablet RxNorm: 066794 1 Tablet(s) PO daily . May stop taking once prednisone is complete. 04/26/2016 09/12/2018 Inactive metoprolol succinate ER 50 mg tablet,extended release 24 hr RxNorm: 508995 1.5 Tablet(s) PO daily 04/06/2016 06/23/2016 Inactive prednisone 10 mg tablet RxNorm: 697924 1 Tablet(s) PO daily 04/02/2016 06/21/2017 Inactive metoprolol succinate ER 50 mg tablet,extended release 24 hr RxNorm: 546823 1 Tablet(s) PO daily 03/18/2016 04/05/2016 Inactive amlodipine 10 mg tablet RxNorm: 105487 1/2 Tablet(s) PO daily 02/24/2016 06/21/2016 Inactive metoprolol succinate ER 25 mg tablet,extended release 24 hr RxNorm: 000839 1 Tablet(s) PO daily 02/24/2016 03/16/2016 Inactive calcium carbonate 50 0 mg calcium (1,250 mg) tablet RxNorm: 314341 TAKE ONE TABLET BY MOUTH DAILY WHILE ON PREDNISONE. MAY STOP TAKING WHEN PREDNISONE IS COMPLETE 02/16/2016 05/15/2016 In active Protonix 40 mg table t,delayed release RxNorm: 805968 TAKE ONE TABLET [facility] DAILY WHILE ON PREDNISONE 02/10/2016 05/09/2016 Inactive venlafaxine ER 150 m g capsule,extended release 24 hr RxNorm: 717948 Capsule(s) TAKE ONE CAPSULE BY MOUTH DAILY 12/10/2015 04/07/2016 Inactive calcium carbonate 50 0 mg calcium (1,250 mg) tablet RxNorm: 393205 1 Tablet(s) PO daily 12/01/2015 01/29/2016 Inactive Vitamin D3 1,000 uni t tablet RxNorm: 032283 1 Tablet(s) PO daily 12/01/2015 03/29/2016 Inactive levothyroxine 50 mcg tablet RxNorm: 794995 1 Tablet(s) PO daily 12/01/2015 11/24/2016 Inactive amlodipine 10 mg tablet RxNorm: 818070 1 Tablet(s) PO daily 11/19/2015 11/18/2015 Inactive amlodipine 10 mg tablet RxNorm: 155065 1 Tablet(s) PO daily 11/19/2015 02/23/2016 Inactive amlodipine 5 mg tablet RxNorm: 284693 1 Tablet(s) PO daily 11/17/2015 11/18/2015 Inactive venlafaxine ER 150 m g capsule,extended release 24 hr RxNorm: 474915 TAKE ONE CAPSULE BY MOUTH DAILY 11/13/2015 12/09/2015 Inactive Protonix 40 mg table t,delayed release RxNorm: 918958 1 Tablet(s) PO daily while on prednisone 2015 02/09/2016 Inactive prednisone 10 mg tablet RxNorm: 624936 2 Tablet(s) PO UD 10/30/2015 04/01/2016 Inactive 60mg for 2 days, then 50mg for 2 days, then 40mg for 2 days, then 30mg for 2 days, then 20mg for 2 days, then 10mg for 2 days, then 5mg for 2 days potassium chloride E R 10 mEq tablet,extended release RxNorm: 365134 TAKE ONE TABLET BY MOUTH DAILY 09/22/2015 12/19/2015 Inactive venlafaxine ER 150 m g capsule,extended release 24 hr RxNorm: 779832 TAKE ONE CAPSULE BY MOUTH DAILY 09/08/2015 11/06/2015 Inactive cefdinir 300 mg capsule RxNorm: 756669 1 Capsule(s) PO BID 08/20/2015 08/22/2015 Inactive cefdinir 300 mg capsule RxNorm: 999188 1 Capsule(s) PO BID 08/12/2015 08/18/2015 Inactive Kenalog 40 mg/mL jenna pension for injection RxNorm: 2369437 1 Milliliter(s) Inj 08/04/2015 08/04/2015 In active triamterene 37.5 mg- hydrochlorothiazide 25 mg tablet RxNorm: 952723 1 Tablet(s) PO BID 06/17/2015 08/03/2015 Inactive potassium chloride E R 10 mEq tablet,extended release RxNorm: 176326 1 Tablet(s) PO daily 05/30/2015 08/03/2015 Inactive Levaquin 250 mg tablet RxNorm: 474377 Tablet(s) PO UD 500 mg day one, then 250 mg day 2-7 05/27/2015 08/03/2015 Inactive prednisone 10 mg tablet RxNorm: 486753 Tablet(s) PO UD 05/27/2015 10/29/2015 Inactive 60mg for 2 days, then 50mg for 2 days, then 40mg for 2 days, then 30mg for 2 days, then 20mg for 2 days, then 10mg for 2 days, then 5mg for 2 days albuterol sulfate 1. 25 mg/3 mL solution for nebulization RxNorm: 328942 3 Milliliter(s) INH Q4-6H as needed dyspnea 05/23/2015 09/12/2018 Inactive Zithromax 500 mg tablet RxNorm: 993655 1 Tablet(s) PO daily 05/16/2015 05/15/2015 Inactive Zithromax 500 mg tablet RxNorm: 942027 1 Tablet(s) PO daily 05/16/2015 05/20/2015 Inactive prednisone 20 mg tablet RxNorm: 390748 3 Tablet(s) PO daily 05/12/2015 05/16/2015 Inactive venlafaxine ER 150 m g capsule,extended release 24 hr RxNorm: 263276 TAKE ONE CAPSULE BY MOUTH DAILY 05/12/2015 08/09/2015 Inactive Keflex 500 mg capsule RxNorm: 717300 1 Capsule(s) PO TID 05/12/2015 05/18/2015 Inactive simvastatin 20 mg ta blet RxNorm: 880916 1 Tablet(s) PO daily 04/10/2015 04/09/2015 Inactive simvastatin 20 mg ta blet RxNorm: 414485 1 Tablet(s) PO daily 04/10/2015 08/11/2015 Inactive venlafaxine ER 150 m g capsule,extended release 24 hr RxNorm: 929364 TAKE ONE CAPSULE BY MOUTH DAILY 04/08/2015 05/07/2015 Inactive amlodipine 5 mg tablet RxNorm: 845424 1 Tablet(s) PO daily 03/07/2015 03/06/2015 Inactive amlodipine 5 mg tablet RxNorm: 586235 1 Tablet(s) PO daily 03/07/2015 07/04/2015 Inactive venlafaxine ER 150 m g capsule,extended release 24 hr RxNorm: 786509 1 Capsule(s) PO daily 01/29/2015 03/29/2015 Inactive Co Q-10 oral RxNorm: 77030 oral No Start Date Active gabapentin 100 mg ca psule RxNorm: 121491 1 Capsule(s) PO QAM No Start Date Active albuterol sulfate 1. 25 mg/3 mL solution for nebulization RxNorm: 768506 3 Milliliter(s) INH Q4-6H as needed dyspnea No Start Date 05/22/2015 Inactive levothyroxine 50 mcg tablet RxNorm: 568655 1 Tablet(s) PO daily No Start Date 11/30/2015 Inactive metoprolol succinate ER 50 mg tablet,extended release 24 hr RxNorm: 014567 1 Tablet(s) PO daily No Start Date 09/12/2018 Inactive gabapentin 300 mg ca psule RxNorm: 040944 1 Capsule(s) PO QHS No Start Date 08/09/2016 Inactive vitamin B complex oral RxNorm: 53804 oral No Start Date 09/12/2018 Inactive Vitamin D3 1,000 uni t tablet RxNorm: 206476 1 Tablet(s) PO daily No Start Date 11/30/2015 Inactive Protonix 40 mg table t,delayed release RxNorm: 296355 1 Tablet(s) PO daily while on prednisone No Start Date 10/30/2015 Inactive calcium carbonate oral RxNorm: oral No Start Date 11/30/2015 Inactive potassium chloride E R 10 mEq tablet,extended release RxNorm: 976589 1 Tablet(s) PO daily No Start Date 05/29/2015 Inactive Levaquin 250 mg tablet RxNorm: 092488 Tablet(s) PO UD 500 mg day one, then 250 mg day 2-7 No Start Date 05/26/2015 Inactive triamterene 37.5 mg- hydrochlorothiazide 25 mg tablet RxNorm: 294559 1 Tablet(s) PO BID No Start Date 06/16/2015 Inactive prednisone 10 mg tablet RxNorm: 989964 Tablet(s) PO UD No Start Date 05/26/2015 Inactive 60mg for 2 days, then 50mg for 2 days, then 40mg for 2 days, then 30mg for 2 days, then 20mg for 2 days, then 10mg for 2 days, then 5mg for 2 days venlafaxine ER 150 m g capsule,extended release 24 hr RxNorm: 262563 1 Capsule(s) PO daily No Start Date 01/28/2015 Inactive Medication Administered Medication Codes Instruc tions Start Date Status Kenalog 40 mg/mL suspension for injection RxNorm: 4058049 1.5Milliliter 06/22/2017 No longer Active Kenalog 40 mg/mL suspension for injection RxNorm: 1748544 1Milliliter 08/04/2015 N o longer Active Immunizations [...] Item Item Code Result Date Comp Metabolic Pku372 NA 142 mEq/L 10/12/2018 Comp Metabolic Hlc998 K 4.0 mEq/L 10/12/2018 Comp Metabolic Wup543 CL 105 mEq/L 10/12/2018 Comp Metabolic Pgm803 CO2 21.0 mEq/L 10/12/2018 Comp Metabolic Wbg730 AN ION GAP 20 10/12/2018 Comp Metabolic Gpj463 GL UCOSE 105 mg/dL 10/12/2018 Comp Metabolic Ury417 Cr eat 1.8 mg/dL 10/12/2018 Comp Metabolic Vah262 eG FR 30 ml/min/1.73m2 10/12 Comp Metabolic Jlt482 BUN 19 mg/dL 10/12/2018 Comp Metabolic Akh903 B/ C Ratio 10.5 Ratio 10/12/2018 Comp Metabolic Tbr225 CA LCIUM 9.0 mg/dL 10/12/2018 Comp Metabolic Umk814 AL K PHOS 74 U/L 10/12/2018 Comp Metabolic Ida729 T(SGOT) 21 U/L 10/12/2018 Comp Metabolic Lba464 AL T(SGPT) 22 U/L 10/12/2018 Comp Metabolic Lik918 BI LI T 0.4 mg/dL 10/12/2018 Comp Metabolic Awp197 AL BUMIN 3.9 g/dL 10/12/2018 Comp Metabolic Moj146 TP RO 6.1 g/dL 10/12/2018 Comp Metabolic Zax088 GL OB 2.2 g/dL 10/12/2018 Comp Metabolic Nuj875 A/ G Ratio 1.7 Ratio 10/12/2018 Comp Metabolic Nwm189 Os mo 286 mOsmo 10/12/2018 Cbc With [...] 28.0 pg 10/12/2018 Cbc With Differential Ord2 Jerauld% 16.6 % 10/12/2018 Cbc With Differential Ord2 [...] 1.77 K/ul 10/12/2018 Cbc With Differential Ord2 Jerauld ABS# 2.4 K/ul 10/12/2018 Cbc With Differential Ord2 Eos ABS# 0.0 K/ul 10/12/2018 Cbc With Differential Ord2 Baso ABS# 0.0 K/ul 10/12/2018 Electrolytes Ord62 NA 140 mEq/L 09/15/2018 Electrolytes Ord62 K 4.2 mEq/L 09/15/2018 Electrolytes Ord62 CL 111 mEq/L 09/15/2018 Electrolytes Ord62 CO2 20.0 mEq/L 09/15/2018 Electrolytes Ord62 ANION GAP 13 09/15/2018 Comp Metabolic Wom772 NA 140 mEq/L 01/10/2018 Comp Metabolic Fck566 K 3.8 mEq/L 01/10/2018 Comp Metabolic Xjn951 CL 106 mEq/L 01/10/2018 Comp Metabolic Lgx167 CO2 25.0 mEq/L 01/10/2018 Comp Metabolic Lyq560 AN ION GAP 13 01/10/2018 Comp Metabolic Pit635 GL UCOSE 110 mg/dL 01/10/2018 Comp Metabolic Erh006 Cr eat 1.5 mg/dL 01/10/2018 Comp Metabolic Dme451 eG FR 37 ml/min/1.73m2 01/10 Comp Metabolic Sed489 BUN 23 mg/dL 01/10/2018 Comp Metabolic Foz426 B/ C Ratio 15.3 Ratio 01/10/2018 Comp Metabolic Dhr720 CA LCIUM 9.2 mg/dL 01/10/2018 Comp Metabolic Lcb296 AL K PHOS 87 U/L 01/10/2018 Comp Metabolic Kxd693 T(SGOT) 15 U/L 01/10/2018 Comp Metabolic Bqd010 AL T(SGPT) 9 U/L 01/10/2018 Comp Metabolic Tvn928 BI LI T 0.4 mg/dL 01/10/2018 Comp Metabolic Upz096 AL BUMIN 3.8 g/dL 01/10/2018 Comp Metabolic Aao112 TP RO 6.2 g/dL 01/10/2018 Comp Metabolic Usw749 GL OB 2.4 g/dL 01/10/2018 Comp Metabolic Krc686 A/ G Ratio 1.6 Ratio 01/10/2018 Comp Metabolic Yyv460 Os mo 284 mOsmo 01/10/2018 C-Reactive Protein [...] 27.6 pg 01/10/2018 Cbc With Differential Ord2 Jerauld% 15.2 % 01/10/2018 Cbc With Differential Ord2 [...] 1.47 K/ul 01/10/2018 Cbc With Differential Ord2 Jerauld ABS# 1.0 K/ul 01/10/2018 Cbc With Differential Ord2 Eos ABS# 0.1 K/ul 01/10/2018 Cbc With Differential Ord2 Baso ABS# 0.0 K/ul 01/10/2018 Sed Rate Ord21 ESR 12 mm/hr 01/10/2018 Free T4 Fyf022 FREE T4 0.57 ng/dL 12/06/2017 Tsh Ord6 TSH (3rd IS) 7.40 uIU/mL 12/06/2017 C A/B FLU [id number] Influe nza A Scr Negative 06/22/2017 C A/B FLU [id number] Influe nza B Scr Negative 06/22/2017 C A/B FLU [id number] Influe nza Intrp B AG:PRID:PT:NOSE:NOM:IF See Footnote 06/22/2017 Comp Metabolic Dut997 NA 140 mEq/L 08/30/2016 Comp Metabolic Fkf883 K 3.3 mEq/L 08/30/2016 Comp Metabolic Tdv730 CL 104 mEq/L 08/30/2016 Comp Metabolic Iso093 CO2 26.0 mEq/L 08/30/2016 Comp Metabolic Hfh426 AN ION GAP 13 08/30/2016 Comp Metabolic Lsa793 GL UCOSE 143 mg/dL 08/30/2016 Comp Metabolic Hdl595 Cr eat 1.3 mg/dL 08/30/2016 Comp Metabolic Uop515 eG FR 43 ml/min/1.73m2 08/30 Comp Metabolic Bea428 BUN 19 mg/dL 08/30/2016 Comp Metabolic Bnr181 B/ C Ratio 14.3 Ratio 08/30/2016 Comp Metabolic Vvh808 CA LCIUM 10.0 mg/dL 08/30/2016 Comp Metabolic Bfu839 AL K PHOS 67 U/L 08/30/2016 Comp Metabolic Uhn543 T(SGOT) 28 U/L 08/30/2016 Comp Metabolic Cja480 AL T(SGPT) 43 U/L 08/30/2016 Comp Metabolic Jdf135 BI LI T 0.4 mg/dL 08/30/2016 Comp Metabolic Qys278 AL BUMIN 4.0 g/dL 08/30/2016 Comp Metabolic Lnh504 TP RO 6.2 g/dL 08/30/2016 Comp Metabolic Dmr857 GL OB 2.2 g/dL 08/30/2016 Comp Metabolic Grr903 A/ G Ratio 1.8 Ratio 08/30/2016 Comp Metabolic Pin543 Os mo 284 mOsmo 08/30/2016 %Hba1C Oje023 % HbA1c 44189-6 6.1 % 08/30/2016 %Hba1C Xwq569 Gluc Ave 128 mg/dL 08/30/2016 Free T4 Dbs474 FREE T4 0.75 ng/dL 06/25/2016 Tsh Ord6 [...] Ord90 Mag 2.1 mg/dL 12/16/2015 Free T4 Bkw875 FREE T4 0.92 ng/dL 12/16/2015 Tsh Ord6 [...] 28.5 pg 08/04/2015 Cbc With Differential Ord2 Jerauld% 6.1 % 08/04/2015 Cbc With Differential Ord2 [...] 0.73 K/ul 08/04/2015 Cbc With Differential Ord2 Jerauld ABS# 0.5 K/ul 08/04/2015 Cbc With Differential Ord2 Eos ABS# 0.1 K/ul 08/04/2015 Cbc With Differential Ord2 Baso ABS# 0.0 K/ul 08/04/2015 Cbc With Differential Ord2 New Analyzer Notice Please note new ref ranges s tarting 07-09-2015 due to implemntation of new five part differential hematolgy analyzer. 08/04/2015 C-Reactive Protein Qnt Crqnt CRP 0.8 mg/dl 08/04/2015 Comp Metabolic Upd001 NA 139 mEq/L 08/04/2015 Comp Metabolic Jgz326 K 3.4 mEq/L 08/04/2015 Comp Metabolic Kly976 CL 109 mEq/L 08/04/2015 Comp Metabolic Svx707 CO2 22.0 mEq/L 08/04/2015 Comp Metabolic Oct392 AN ION GAP 11 08/04/2015 Comp Metabolic Lqa774 GL UCOSE 177 mg/dL 08/04/2015 Comp Metabolic Ebz553 Cr eat 1.0 mg/dL 08/04/2015 Comp Metabolic Zhw784 eG FR 64 ml/min/1.73m2 08/04 Comp Metabolic Lhq625 BUN 35 mg/dL 08/04/2015 Comp Metabolic Vyh255 B/ C Ratio 36.8 Ratio 08/04/2015 Comp Metabolic Qwz886 CA LCIUM 8.5 mg/dL 08/04/2015 Comp Metabolic Kgj207 AL K PHOS 57 U/L 08/04/2015 Comp Metabolic Yhl412 T(SGOT) 21 U/L 08/04/2015 Comp Metabolic Scb874 AL T(SGPT) 63 U/L 08/04/2015 Comp Metabolic Uhi825 BI LI T 0.3 mg/dL 08/04/2015 Comp Metabolic Xzw942 AL BUMIN 3.1 g/dL 08/04/2015 Comp Metabolic Lgz655 TP RO 5.1 g/dL 08/04/2015 Comp Metabolic Lgz906 GL OB 2.0 g/dL 08/04/2015 Comp Metabolic Gqk951 A/ G Ratio 1.6 Ratio 08/04/2015 Comp Metabolic Ccs597 Os mo 290 mOsmo 08/04/2015 Cpk Ord61 CPK 52 U/L 08/04/2015 Random Urine Protein/Creatinine Ratio Ukd5845 U Prot 8.5 mg/dl 05/27/2015 Random Urine Protein/Creatinine Ratio Mic9729 U CREAT 201.0 mg/dL 05/27/2015 Random Urine Protein/Creatinine Ratio Mll0865 R MTP/Creat Ratio 0.04 05/27/2015 Urinalysis Ord28 [...] hours from collection if refrigerated) 05/27/2015 Renal Yfb598 NA 136 mEq/L 05/26/2015 Renal Zvd087 K 3.3 mEq/L 05/26/2015 Renal Zxi867 CL 99 mEq/L 05/26/2015 Renal Hdy612 CO2 25.0 mEq/L 05/26/2015 Renal Uop307 ANION GAP 15 05/26/2015 Renal Rwt897 Osmo 274 mOsmo 05/26/2015 Renal Xti373 GLUCOSE 106 mg/dL 05/26/2015 Renal Lck028 BUN 17 mg/dL 05/26/2015 Renal Rey951 Creat 1.4 mg/dL 05/26/2015 Renal Dva331 eGFR 40 ml/min/1.73m2 05/26/2015 Renal Tfp926 B/C Ratio 12.0 Ratio 05/26/2015 Renal Mpk445 CALCIUM 9.3 mg/dL 05/26/2015 Renal Srx195 PHOS 3.4 mg/dL 05/26/2015 Renal Pge065 ALBUMIN 3.4 g/dL 05/26/2015 Cbc With Differential [...] Ord2 RDW 14.3 % 04/21/2015 Free T4 Npz968 FREE T4 0.91 ng/dL 04/21/2015 %Hba1C Sbd223 % HbA1c 84207-2 5.8 % 04/21/2015 %Hba1C Igg441 Gluc Ave 120 mg/dL 04/21/2015 Comp Metabolic Hlc706 NA 137 mEq/L 04/21/2015 Comp Metabolic Gcq155 K 3.6 mEq/L 04/21/2015 Comp Metabolic Cpw998 CL 98 mEq/L 04/21/2015 Comp Metabolic Oln410 CO2 25.0 mEq/L 04/21/2015 Comp Metabolic Ocg607 AN ION GAP 18 04/21/2015 Comp Metabolic Kyf413 GL UCOSE 83 mg/dL 04/21/2015 Comp Metabolic Yym400 Cr eat 1.6 mg/dL 04/21/2015 Comp Metabolic Qge428 eG FR 36 ml/min/1.73m2 04/21 Comp Metabolic Ufn646 BUN 28 mg/dL 04/21/2015 Comp Metabolic Lrm993 B/ C Ratio 17.9 Ratio 04/21/2015 Comp Metabolic Bet814 CA LCIUM 9.5 mg/dL 04/21/2015 Comp Metabolic Qwh878 AL K PHOS 60 U/L 04/21/2015 Comp Metabolic Hor008 T(SGOT) 22 U/L 04/21/2015 Comp Metabolic Tmb210 AL T(SGPT) 10 U/L 04/21/2015 Comp Metabolic Afw195 BI LI T 0.4 mg/dL 04/21/2015 Comp Metabolic Lwx486 AL BUMIN 4.0 g/dL 04/21/2015 Comp Metabolic Tua223 TP RO 6.8 g/dL 04/21/2015 Comp Metabolic Kza475 GL OB 2.8 g/dL 04/21/2015 Comp Metabolic Nvl398 A/ G Ratio 1.4 Ratio 04/21/2015 Comp Metabolic Zpc740 Os mo 278 mOsmo 04/21/2015 Tsh Ord6 [...] Procedure Codes Date THER/PROPH/DIAG INJ SC/IM CPT-4: 13151 06/22/2017 TRIAMCINOLONE ACET I [place] NOS CPT-4: J3301 06/22/2017 THER/PROPH/DIAG INJ SC/IM CPT-4: 51941 08/04/2015 TRIAMCINOLONE ACET I [place] NOS CPT-4: J3301 08/04/2015 Vital Signs Date Vital 10/12/2018 Blood Pressure 1: 110/74 Code: 8480-6 Heart Rate 1: 105 bpm Height: 5'1" SpO2: 95% Weight: 09/13/2018 Blood Pressure 1: 156/86 Code: 8480-6 BMI: 32.3 Code: 81131-9 Heart Rate 1: 90 bpm Height: 5'1" SpO2: 98% Weight: 171 lbs 05/04/2018 Blood Pressure 1: 158/88 Code: 8480-6 BMI: 33.3 Code: 95789-6 Heart Rate 1: 63 bpm Height: 5'1" SpO2: 98% Weight: 176 lbs 01/10/2018 Blood Pressure 1: 138/88 Code: 8480-6 BMI: 31.9 Code: 84933-5 Heart Rate 1: 78 bpm Height: 5'1" SpO2: 99% Weight: 169 lbs 12/06/2017 Blood Pressure 1: 158/98 Code: 8480-6 BMI: 32.3 Code: 88890-5 Heart Rate 1: 60 bpm Height: 5'1" SpO2: 100% Weight: 171 lbs 06/22/2017 Blood Pressure 1: 168/92 Code: 8480-6 BMI: 32.6 Code: 25780-7 Heart Rate 1: 133 bpm Height: 5'1" SpO2: 97% Temperature: 37.6 (C ) / 99.7 (F) Weight: 172 lbs 8 oz 03/02/2017 Blood Pressure 1: 168/90 Code: 8480-6 BMI: 35.0 Code: 43734-7 Heart Rate 1: 80 bpm Height: 5'1" SpO2: 94% Weight: 185 lbs 01/24/2017 Blood Pressure 1: 130/68 Code: 8480-6 BMI: 35.3 Code: 48937-2 Heart Rate 1: 66 bpm Height: 5'1" SpO2: 98% Weight: 187 lbs 10/13/2016 Blood Pressure 1: 136/74 Code: 8480-6 BMI: 35.1 Code: 89394-7 Heart Rate 1: 71 bpm Height: 5'1" SpO2: 97% Weight: 186 lbs 08/30/2016 Blood Pressure 1: 128/80 Code: 8480-6 BMI: 35.0 Code: 30574-3 Heart Rate 1: 75 bpm Height: 5'1" SpO2: 96% Weight: 185 lbs 8 oz 07/02/2016 Blood Pressure 1: 140/78 Code: 8480-6 Heart Rate 1: 63 bpm Height: 5'1" SpO2: 98% 06/24/2016 Blood Pressure 1: 148/100 Code: 8480-6 BMI: 34.2 Code: 96155-1 Heart Rate 1: 110 bpm Height: 5'1" SpO2: 94% Weight: 181 lbs 05/04/2016 Blood Pressure 1: 150/90 Code: 8480-6 Blood Pressure 1: 134/82 Code: 8480-6 BMI: 34.6 Code: 87081-1 Heart Rate 1: 74 bpm Height: 5'1" SpO2: 98% Weight: 183 lbs 04/06/2016 Blood Pressure 1: 156/92 Code: 8480-6 Blood Pressure 1: 158/88 Code: 8480-6 BMI: 34.8 Code: 83271-9 Heart Rate 1: 69 bpm Height: 5'1" SpO2: 97% Weight: 184 lbs 03/18/2016 Blood Pressure 1: 148/90 Code: 8480-6 BMI: 35.1 Code: 77535-3 Heart Rate 1: 106 bpm Height: 5'1" SpO2: 94% Weight: 186 lbs 03/11/2016 Blood Pressure 1: 140/90 Code: 8480-6 BMI: 35.1 Code: 08382-5 Heart Rate 1: 103 bpm Height: 5'1" SpO2: 96% Weight: 186 lbs 02/24/2016 Blood Pressure 1: 130/80 Code: 8480-6 BMI: 34.4 Code: 72967-9 Heart Rate 1: 110 bpm Height: 5'1" SpO2: 96% Weight: 182 lbs 12/16/2015 Blood Pressure 1: 144/98 Code: 8480-6 BMI: 33.8 Code: 69024-1 Heart Rate 1: 97 bpm Height: 5'1" SpO2: 98% Weight: 179 lbs 10/30/2015 Blood Pressure 1: 138/88 Code: 8480-6 BMI: 33.6 Code: 84158-6 Heart Rate 1: 88 bpm Height: 5'1" SpO2: 98% Weight: 178 lbs 09/23/2015 Blood Pressure 1: 152/94 Code: 8480-6 BMI: 32.7 Code: 05839-8 Heart Rate 1: 83 bpm Height: 5'1" SpO2: 97% Weight: 173 lbs 09/10/2015 Blood Pressure 1: 136/82 Code: 8480-6 BMI: 32.1 Code: 65365-0 Heart Rate 1: 105 bpm Height: 5'1" SpO2: 97% Weight: 170 lbs 08/12/2015 Blood Pressure 1: 132/70 Code: 8480-6 BMI: 31.2 Code: 20840-5 Heart Rate 1: 88 bpm Height: 5'1" SpO2: 95% Temperature: 36.7 (C ) / 98.0 (F) Weight: 165 lbs 08/04/2015 Blood Pressure 1: 136/80 Code: 8480-6 BMI: 31.0 Code: 61515-5 Heart Rate 1: 110 bpm Height: 5'1" SpO2: 98% Weight: 164 lbs 05/16/2015 Blood Pressure 1: 138/88 Code: 8480-6 BMI: 32.9 Code: 35406-0 Heart Rate 1: 87 bpm Height: 5'1" SpO2: 90% Weight: 174 lbs 05/12/2015 BMI: 31.7 Code: 02303-0 Height: 5'1" Weight: 168 lbs 04/21/2015 Blood Pressure 1: 124/82 Code: 8480-6 BMI: 32.1 Code: 44775-3 Heart Rate 1: 87 bpm Height: 5'1" [...] of the thyroid 12/06/2017 None hypothyroid [employer] [place] 12/06/2017 None hypothyroid Onset and Resolution [...] of the thyroid 08/30/2016 None hypothyroid [employer] [place] 08/30/2016 None hypothyroid Onset and Resolution [...] of the thyroid 05/04/2016 None hypothyroid [employer] [place] 05/04/2016 None hypothyroid Onset and Resolution [...] of the thyroid 04/06/2016 None hypothyroid [employer] [place] 04/06/2016 None hypothyroid Onset and Resolution [...] Alleviating Factors medication 12/16/2015 None hypothyroid [employer] [place] 12/16/2015 None hypothyroid Location at the [...] Encounters Encounter Performer Loca tion Codes Date 99537 EST. PATIENT, LEVEL III Diagnosis: Chronic kidney disease, stage 3 (moderate)[ICD10: N18.3] Diagnosis: Essential (primary) hypertension[ICD10: I10] Diagnosis: Encounter for follow-up examination after completed treatment for conditions other than malignant neoplasm[ICD10: Z09] Britney Maya MD, [facility] CPT-4: 66554 10/12/2018 69928 EST. PATIENT, LEVEL III Diagnosis: Hypokalemia[ICD10: E87.6] Diagnosis: Interstitial pulmonary disease, unspecified[ICD10: J84.9] Britney Maya MD, [facility] CPT-4: 37286 09/13/2018 37479 EST. PATIENT, LEVEL IV Diagnosis: Essential (primary) hypertension[ICD10: I10] Diagnosis: Interstitial pulmonary disease, unspecified[ICD10: J84.9] Diagnosis: Chronic kidney disease, stage 3 (moderate)[ICD10: N18.3] Diagnosis: Mixed hyperlipidemia[ICD10: E78.2] Britney Maya MD, [facility] CPT-4: 18198 05/04/2018 41304 EST. PATIENT, LEVEL IV Diagnosis: Essential (primary) hypertension[ICD10: I10] Diagnosis: Interstitial pulmonary disease, unspecified[ICD10: J84.9] Diagnosis: Chronic kidney disease, stage 3 (moderate)[ICD10: N18.3] Diagnosis: Mixed hyperlipidemia[ICD10: E78.2] Britney Maya MD, [facility] CPT-4: 28864 01/10/2018 00943 EST. PATIENT, LEVEL IV Diagnosis: Other specified hypothyroidism[ICD10: E03.8] Diagnosis: Essential (primary) hypertension[ICD10: I10] Britney Maya MD, [facility] CPT-4: 37914 12/06/2017 63852 EST. PATIENT, LEVEL IV Diagnosis: Other malaise[ICD10: R53.81] Diagnosis: Other fatigue[ICD10: R53.83] Britney Maya MD, [facility] CPT-4: 77320 06/22/2017 60999 EST. PATIENT, LEVEL IV Diagnosis: Acute laryngopharyngitis[ICD10: J06.0] Diagnosis: Other acute sinusitis[ICD10: J01.80] Diagnosis: Other allergic rhinitis[ICD10: J30.89] Britney Maya MD, [facility] CPT-4: 97317 03/02/2017 88228 EST. PATIENT, LEVEL IV Diagnosis: Generalized hyperhidrosis[ICD10: R61] Diagnosis: Other acute sinusitis[ICD10: J01.80] Diagnosis: Other fatigue[ICD10: R53.83] Diagnosis: Interstitial pulmonary disease, unspecified[ICD10: J84.9] Britney Maya MD, [facility] CPT-4: 98449 01/24/2017 30446 EST. PATIENT, LEVEL IV Diagnosis: Acute laryngopharyngitis[ICD10: J06.0] Diagnosis: Other acute sinusitis[ICD10: J01.80] Britney Maya MD, [facility] CPT- 4: 44185 10/13/2016 ([id number]) 64686 EST. 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 PATIENT, LEVEL IV Diagnosis: Pain in thoracic spine[ICD10: M54.6] Diagnosis: Pain in left shoulder[ICD10: M25.512] Diagnosis: Zoster without complications[ICD10: B02.9] Britney Maya MD, [facility] CPT-4: 70105 07/02/2016 61700 EST. PATIENT, LEVEL III Diagnosis: Other specified hypothyroidism[ICD10: E03.8] Diagnosis: Menopausal and female climacteric states[ICD10: N95.1] Diagnosis: Essential (primary) hypertension[ICD10: I10] Britney Maya MD, [facility] CPT-4: 23140 06/24/2016 ([id number]) 72023 EST. P ATIENT, LEVEL IV Diagnosis: Essential (primary) hypertension[ICD10: I10] Diagnosis: Atrophy of thyroid (acquired)[ICD10: E03.4] Diagnosis: Pain in left foot[ICD10: M79.672] Meghana Maya MD, [facility] CPT-4: 31421 05/04/2016 ([id number]) 26243 EST. P ATIENT, LEVEL IV Diagnosis: Essential (primary) hypertension[ICD10: I10] Diagnosis: Pain in left leg[ICD10: M79.605] Diagnosis: Pain in left foot[ICD10: M79.672] Diagnosis: Atrophy of thyroid (acquired)[ICD10: E03.4] Meghana Maya MD, C CPT-4: 02421 04/06/2016 ([id number]) 54546 EST. P ATIENT, LEVEL III Diagnosis: Essential (primary) hypertension[ICD10: I10] Diagnosis: Localized edema[ICD10: R60.0] Catie Maya MD, [facility] CPT- 4: 06583 03/18/2016 ([id number]) 70923 EST. P ATIENT, LEVEL III Diagnosis: Essential (primary) hypertension[ICD10: I10] Diagnosis: Pain in left foot[ICD10: M79.672] Catie Maya MD, [facility] CPT- 4: 70645 03/11/2016 ([id number]) 74776 EST. P ATIENT, LEVEL III Diagnosis: Localized edema[ICD10: R60.0] Diagnosis: Essential (primary) hypertension[ICD10: I10] Catie Maya MD, [facility] CPT-4: 00597 02/24/2016 ([id number]) 96616 EST. P ATIENT, LEVEL IV Diagnosis: Hypothyroidism, unspecified[ICD10: E03.9] Diagnosis: Essential (primary) hypertension[ICD10: I10] Meghana Maya MD, C CPT-4: 83063 12/16/2015 ([id number]) 84990 EST. P ATIENT, LEVEL III Diagnosis: Essential (primary) hypertension[ICD10: I10] Diagnosis: Hypothyroidism, unspecified[ICD10: E03.9] Meghana Maya MD, C CPT-4: 90175 10/30/2015 ([id number]) 72611 EST. P ATIENT, LEVEL IV Diagnosis: Diarrhea, unspecified[ICD10: R19.7] Diagnosis: Essential (primary) hypertension[ICD10: I10] Meghana Maya MD, C CPT-4: 27539 09/23/2015 ([id number]) 32809 EST. P ATIENT, LEVEL III Diagnosis: Essential (primary) hypertension[ICD10: I10] Diagnosis: Diarrhea, unspecified[ICD10: R19.7] Meghana Maya MD, [facility] CPT- 4: 21614 09/10/2015 ([id number]) 50260 EST. P ATIENT, LEVEL III Diagnosis: Acute maxillary sinusitis, unspecified[ICD10: J01.00] Diagnosis: Myositis, unspecified[ICD10: M60.9] Meghana Maya MD, [facility] CPT- 4: 53313 08/12/2015 ([id number]) 00241 EST. P ATIENT, LEVEL IV Diagnosis: Essential (primary) hypertension[ICD10: I10] Diagnosis: Pain in left leg[ICD10: M79.605] Diagnosis: Other myositis, multiple sites[ICD10: M60.89] Diagnosis: Hypothyroidism, unspecified[ICD10: E03.9] Meghana Maya MD, [facility] CPT-4: 79580 08/04/2015 56914 EST. PATIENT, LEVEL III Diagnosis: Dyspnea, unspecified[ICD10: R06.00] Diagnosis: Essential (primary) hypertension[ICD10: I10] Meghana Maya MD, [facility] CPT-4: 71692 05/16/2015 ([id number]) 99227 EST. P ATIENT, LEVEL II Diagnosis: Dyspnea, unspecified[ICD10: R06.00] Meghana Maya MD, [facility] CPT- 4: 10326 05/12/2015 ([id number]) OFFICE [facility] - LEVEL 4 Diagnosis: Essential (primary) hypertension[ICD10: I10] Diagnosis: Impaired fasting glucose[ICD10: R73.01] Diagnosis: Mixed hyperlipidemia[ICD10: E78.2] Diagnosis: Hypothyroidism, unspecified[ICD10: E03.9] Diagnosis: Encounter for screening mammogram for malignant neoplasm of breast[ICD10: Z12.31] Catie Maya MD, [facility] CPT-4: 42072 04/21/2015 Plan of Care Planned Activity Notes [...] to monitor - pt has seen a gis physical scientist in the 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 Hospital follow up - This was a follow up appointment from the patient's hospitalization during which time Dr. Maya formulated the assessment and plan for the follow up on this patient's medical condition. 10/12/2018 Appointment: Britney Bower WPtel: [phone] [facility] (30 min) Complex 10/12/2018 Patient Education: Patient Medication Summary Completed 10/12/2018 Visit Plan: Hypokalemia - will send RX for potassium and monitor labs Interstitial lung disease - pt is to follow up with specialist and notify clinic with any changes in current treatment plan 09/13/2018 Appointment: Britney Bower WPtel: [phone] [facility] (30 min) Complex 09/13/2018 Patient Education: [...] current treatment plan 05/04/2018 Appointment: Britney Bowertel: [phone] [facility] [place] (15 min) Moderate 05/04/2018 Patient Education: Patient [...] plan 01/10/2018 Appointment: [phone] ([facility] Complex 01/10/2018 Patient Education: [...] control. 12/06/2017 Appointment: Brit[facility] Bower [facility]Ptel[phone] (15 min) Moderate 12/06/2017 Patient Education: Patient Medication Summary Completed 12/06/2017 Visit Plan: URI - Pt advised to inc rease fluids, vitamin C. Discussed natural and expected course of this diagnosis and need to alert me if symptoms do not follow expected course, or if any worse. RX sent to patient's pharmacy. 06/22/2017 Appointment: Britney Bower WPtel: [phone] [facility] [place] (15 min) Moderate 06/22/2017 Patient Education: [...] spray. 03/02/2017 Appointment: Britney Bower WPtel: [phone] [facility] [place] (10 min) Simple 03/02/2017 Patient Education: Patient [...] will complete paperwork for pt to come case picker - pt is to continue with her specialist at [facility] - Discussed with Dr. Maya - will increase clonidine to BID - pt is to consider referral to dermatology - notify clinic if symptoms do not improve, if they worsen, or with any other questions or concerns. 01/24/2017 Appointment: Britney Boewr [facility]Ptel[phone] [place] (30 min) Complex 01/24/2017 Patient Education: [...] show improvement. 10/13/2016 Appointment: Britney Bower WPtel: [phone] [facility] (30 min) Complex 10/13/2016 Patient Education: [...] change in blood pressure readings at home. 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 07/02/2016 Appointment: Brit[facility] Bower [facility]Ptel[phone] (30 min) Complex 07/02/2016 Patient Education: [...] control. 06/24/2016 Appointment: Brit[facility] Bower [facility]Ptel[phone] (30 min) Complex 06/24/2016 Patient Education: Patient Medication Summary Completed 06/24/2016 Patient Education: Obesity Completed 06/24/2016 Patient Education: Hypertension Completed 06/24/2016 Patient Education: Patient Medication Summary Completed 05/14/2016 Care Plan: [facility]CREENINGMAMMOGRAPHYDIGITAL [facility] : 08821-0 Pending 05/14/2016 Visit Plan: Hypertension - well [...] Maya [facility]el[phone] [place] (15 min) Moderate 05/04/2016 Patient Education: [...] medication. 04/06/2016 Appointment: Meghana Maya WPtel: [phone] (15 min) Moderate 04/06/2016 Patient Education: Patient Medication Summary Completed 04/06/2016 Patient Education: Obesity Completed 04/06/2016 Care Plan: Referral Order SNOMED-CT : [id number] Pending 04/06/2016 Visit Plan: Edema-improved with low [...] concerns. 03/18/2016 Appointment: Catie Shoemaker WPtel[phone] [place] (15 min) Moderate 03/18/2016 Patient [...] xray left foot-recommend she follow up with community health coordinator at regarding left foot pain/numbness/weakness. Patient has noticed worsening symptoms since decreasing prednisone. 03/11/2016 Appointment: Catie Shoemaker WPtel: [facility]5 [address] (15 min) Moderate 03/11/2016 Patient Education: Patient Medication Summary Completed 03/11/2016 Patient Education: Obesity Completed 03/11/2016 Appointment: Catie Shoemaker WPtel: [address] [place], [place] [id number] (30 min) Complex 03/09/2016 Visit Plan: Edema [...] 25mg daily 02/24/2016 Appointment: Catie Shoemaker WPtel: [facility]7 [address] (15 min) Moderate 02/24/2016 Patient Education: Patient Medication Summary Completed 02/24/2016 Patient Education: Obesity Completed 02/24/2016 Patient Education: Hypertension Completed 02/24/2016 Appointment: Meghana Maya WPtel: [facility]3 [facility]66[facility] (15 min) Moderate 02/23/2016 Visit [...] of control. 12/16/2015 Appointment: Meghana Maya WPtel: [facility] (15 min) Moderate 12/16/2015 Patient Education: Patient [...] Complex 10/23/2015 Appointment: Meghana Maya WPtel: [phone] (15 min) Moderate 10/23/2015 Visit Plan: Hypertension [...] at home. 09/10/2015 Appointment: Meghana Maya WPtel: [facility]5 [facility] (15 min) Moderate 09/10/2015 Patient Education: Patient [...] Maya WPtel: [phone] (15 min) Moderate 07/24/2015 Appointment: Lab Draw [...] Completed 04/21/2015 Care Plan: SCREENINGMAMMOGRAPHYDIGITAL LOINC : 28016-4 Ordered 04/21/2015 Appointment: Meghana Maya WPtel: [facility] [place] (S) New Patient 04/01/2015 Referral: Sharon [...] SPECIALIZES IN FOOT AND ANKLE DISEASE AT [address] INCREASE THE METOPROLOL TO 1.5 [...] change in blood pressure readings at home. 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 Patient has [...] will complete paperwork for pt to come case picker - pt is to continue with her specialist at [facility] - Discussed with Dr. Maya - will increase clonidine to BID - pt is to consider referral to dermatology - notify clinic if symptoms do not improve, if they worsen, or with any other questions or concerns. probiotic - culturel [employer], probiotic pearls, etc - take three times [...] to monitor - pt has seen a gis physical scientist in the past and does not want [...]
--- OUTSIDE RECORDS SUMMARY | 2019-08-14 06:28 | XMS REPORT | CCD ---
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/[address]: [id number] Never smoker 04/21/2015 Alcohol history Unknown occasionally drinks alcohol 04/21/2015 Allergies, Adverse Reactions, Alerts Substance Reaction Codes Entered Date Inactivated Date Status [id number] REDU CTASE INHIBITORS myalgias Unknown 016 No [...] E R 10 mEq tablet,extended release RxNorm: 879120 Tablet(s) TAKE ONE TABLET BY MOUTH DAILY 09/15/2018 03/13/2019 Active candesartan 4 mg tablet RxNorm: 916678 1 Tablet(s) PO daily 09/15/2018 10/14/2018 Inactive clonidine HCl 0.1 mg tablet RxNorm: 690799 TAKE ONE TABLET BY [facility] TWICE A DAY 09/14/2018 02/10/2019 Ac tive losartan 25 mg tablet RxNorm: 214189 TAKE ONE TABLET BY MOUTH DAILY 09/14/2018 11/12/2018 Ac tive clonidine HCl 0.1 mg tablet RxNorm: 050368 Tablet(s) TAKE ONE TA BLET BY MOUTH AT BEDTIME 09/13/2018 No Stop Date Active venlafaxine ER 150 m g capsule,extended release 24 hr RxNorm: 866661 TAKE ONE CAPSULE BY MOUTH DAILY 05/15/2018 11/10/2018 Active Lipitor 20 mg tablet RxNorm: 972557 TAKE ONE TABLET BY MOUTH DAILY 05/15/2018 11/10/2018 Ac tive losartan 25 mg tablet RxNorm: 626577 TAKE ONE TABLET BY MOUTH DAILY 04/17/2018 07/14/2018 In active losartan 25 mg tablet RxNorm: 445078 TAKE ONE TABLET BY MOUTH DAILY 04/17/2018 04/16/2018 In active Lipitor 20 mg tablet RxNorm: 560180 1 Tablet(s) PO daily 01/12/2018 01/11/2018 Inactive Lipitor 20 mg tablet RxNorm: 559397 1 Tablet(s) PO daily 01/12/2018 05/11/2018 Inactive clonidine HCl 0.1 mg tablet RxNorm: 337735 TAKE ONE TABLET BY [facility] TWICE A DAY 01/04/2018 07/02/2018 In active potassium chloride E R 10 mEq tablet,extended release RxNorm: 719774 TAKE ONE TABLET BY MOUTH DAILY 01/04/2018 09/12/2018 Inactive losartan 25 mg tablet RxNorm: 407734 TAKE ONE TABLET BY MOUTH DAILY 01/03/2018 04/02/2018 In active levothyroxine 50 mcg tablet RxNorm: 505594 1 Tablet(s) PO daily 12/08/2017 09/12/2018 Inactive losartan 25 mg tablet RxNorm: 088011 1 Tablet(s) PO daily 12/06/2017 01/02/2018 Inactive venlafaxine ER 150 m g capsule,extended release 24 hr RxNorm: 157499 TAKE ONE CAPSULE BY MOUTH DAILY 12/06/2017 05/04/2018 Inactive metoprolol succinate ER 50 mg tablet,extended release 24 hr RxNorm: 297875 TAKE ONE TABLET BY MOUTH DAILY 08/29/2017 01/25/2018 Inactive metoprolol succinate ER 50 mg tablet,extended release 24 hr RxNorm: 936982 TAKE ONE TABLET BY MOUTH DAILY 08/29/2017 08/28/2017 Inactive metoprolol succinate ER 50 mg tablet,extended release 24 hr RxNorm: 491194 TAKE ONE TABLET BY MOUTH DAILY 08/29/2017 08/28/2017 Inactive Tamiflu 75 mg capsule RxNorm: 923625 1 Capsule(s) PO BID 06/22/2017 06/26/2017 Inactive Kenalog 40 mg/mL jenna pension for injection RxNorm: 6126056 1.5 Milliliter(s) In j 06/22/2017 06/22/2017 In active clonidine HCl 0.1 mg tablet RxNorm: 876560 TAKE ONE TABLET BY [facility] TWICE A DAY 06/06/2017 12/02/2017 In active potassium chloride E R 10 mEq tablet,extended release RxNorm: 290049 TAKE ONE TABLET BY MOUTH DAILY 06/06/2017 12/02/2017 Inactive venlafaxine ER 150 m g capsule,extended release 24 hr RxNorm: 667062 TAKE ONE CAPSULE BY MOUTH DAILY 05/23/2017 11/18/2017 Inactive Zithromax 500 mg tablet RxNorm: 674521 1 Tablet(s) PO daily 05/18/2017 05/22/2017 Inactive potassium chloride E R 10 mEq tablet,extended release RxNorm: 718012 TAKE ONE TABLET BY MOUTH DAILY 04/21/2017 05/20/2017 Inactive potassium chloride E R 10 mEq tablet,extended release RxNorm: 043097 TAKE ONE TABLET BY MOUTH DAILY 03/16/2017 04/14/2017 Inactive Zithromax Z-Jacek 250 mg tablet RxNorm: 037127 1 Tablet(s) PO UD 03/02/2017 06/21/2017 Inactive venlafaxine ER 150 m g capsule,extended release 24 hr RxNorm: 184704 Capsule(s) TAKE ONE CAPSULE BY MOUTH DAILY 02/17/2017 02/16/2017 Inactive venlafaxine ER 150 m g capsule,extended release 24 hr RxNorm: 644067 TAKE ONE CAPSULE BY MOUTH DAILY 02/17/2017 05/14/2018 Inactive clonidine HCl 0.1 mg tablet RxNorm: 408832 TAKE ONE TABLET BY [facility] EVERY NIGHT AT BEDTIME 02/14/2017 01/03/2018 Inactive metoprolol succinate ER 50 mg tablet,extended release 24 hr RxNorm: 475959 TAKE ONE TABLET BY MOUTH DAILY 02/14/2017 08/12/2017 Inactive Protonix 40 mg table t,delayed release RxNorm: 152561 TAKE ONE TABLET BY [facility] DAILY WHILE ON PREDNISONE 01/25/2017 09/12/2018 Inactive Zithromax Z-Jacek 250 mg tablet RxNorm: 014651 1 Tablet(s) PO UD 01/24/2017 01/03/2018 Inactive potassium chloride E R 10 mEq tablet,extended release RxNorm: 095242 TAKE ONE TABLET BY MOUTH DAILY 01/17/2017 03/15/2017 Inactive clonidine HCl 0.1 mg tablet RxNorm: 443741 TAKE ONE TABLET BY [facility] EVERY NIGHT AT BEDTIME 01/17/2017 02/13/2017 Inactive potassium chloride E R 10 mEq tablet,extended release RxNorm: 918686 TAKE ONE TABLET BY MOUTH DAILY 12/16/2016 01/14/2017 Inactive venlafaxine ER 150 m g capsule,extended release 24 hr RxNorm: 455743 TAKE ONE CAPSULE BY MOUTH DAILY 11/18/2016 02/15/2017 Inactive clonidine HCl 0.1 mg tablet RxNorm: 031316 TAKE ONE TABLET BY [facility] EVERY NIGHT AT BEDTIME 11/08/2016 01/06/2017 Inactive clonidine HCl 0.1 mg tablet RxNorm: 079761 1 Tablet(s) BID 10/19/2016 01/16/2017 Inactive potassium chloride E R 10 mEq tablet,extended release RxNorm: 732388 TAKE ONE TABLET BY MOUTH DAILY 10/15/2016 11/13/2016 Inactive Zithromax Z-Jacek 250 mg tablet RxNorm: 102535 1 Tablet(s) PO UD 10/13/2016 01/03/2018 Inactive potassium chloride E R 10 mEq tablet,extended release RxNorm: 267149 TAKE ONE TABLET BY MOUTH DAILY 10/12/2016 10/14/2016 Inactive potassium chloride E R 10 mEq tablet,extended release RxNorm: 285571 Tablet(s) BID TAKE ONE TABLET BY MOUTH TWICE DAILY 09/17/2016 10/11/2016 Inactive potassium chloride E R 10 mEq tablet,extended release RxNorm: 688103 TAKE ONE TABLET BY MOUTH DAILY 09/13/2016 09/16/2016 Inactive clonidine HCl 0.1 mg tablet RxNorm: 194424 Tablet(s) TAKE ONE TA BLET BY MOUTH EVERY NIGHT AT BEDTIME 08/12/2016 10/18/2016 Inactive gabapentin 300 mg ca psule RxNorm: 831677 1 Capsule(s) PO QHS 08/10/2016 No Stop Date Active venlafaxine ER 150 m g capsule,extended release 24 hr RxNorm: 805338 TAKE ONE CAPSULE BY MOUTH DAILY 08/09/2016 11/06/2016 Inactive metoprolol succinate ER 50 mg tablet,extended release 24 hr RxNorm: 268143 TAKE ONE TABLET BY MOUTH DAILY 07/29/2016 01/24/2017 Inactive clonidine HCl 0.1 mg tablet RxNorm: 206655 TAKE ONE TABLET BY [facility] EVERY NIGHT AT BEDTIME 07/21/2016 08/11/2016 Inactive potassium chloride E R 10 mEq tablet,extended release RxNorm: 213804 TAKE ONE TABLET BY MOUTH DAILY 07/14/2016 09/11/2016 Inactive Prescriber not associated w ith this practice or location acyclovir 400 mg tablet RxNorm: 565173 2 Tablet(s) PO QID 07/02/2016 07/11/2016 Inactive cyclobenzaprine 5 mg tablet RxNorm: 646738 1-2 Tablet(s) PO TID as needed 07/02/2016 07/06/2016 In active capsaicin 0.1 % topi reagan cream RxNorm: 025599 1 Application TOP TID as needed 07/02/2016 09/12/2018 In active Protonix 40 mg table t,delayed release RxNorm: 615866 TAKE ONE TABLET BY [facility] DAILY WHILE ON PREDNISONE 06/29/2016 12/25/2016 Inactive clonidine HCl 0.1 mg tablet RxNorm: 375673 1 Tablet(s) PO QHS 06/25/2016 07/20/2016 Inactive calcium carbonate 50 0 mg calcium (1,250 mg) tablet RxNorm: 683609 TAKE ONE TABLET BY MOUTH DAILY WHILE ON PREDNISONE. MAY STOP TAKING WHEN PREDNISONE IS COMPLETE 06/01/2016 09/12/2018 In active Vitamin D3 1,000 uni t tablet RxNorm: 071911 1 Tablet(s) PO daily . May stop taking once prednisone is complete. 04/26/2016 09/12/2018 Inactive metoprolol succinate ER 50 mg tablet,extended release 24 hr RxNorm: 673755 1.5 Tablet(s) PO daily 04/06/2016 06/23/2016 Inactive prednisone 10 mg tablet RxNorm: 164790 1 Tablet(s) PO daily 04/02/2016 06/21/2017 Inactive metoprolol succinate ER 50 mg tablet,extended release 24 hr RxNorm: 365372 1 Tablet(s) PO daily 03/18/2016 04/05/2016 Inactive amlodipine 10 mg tablet RxNorm: 680068 1/2 Tablet(s) PO daily 02/24/2016 06/21/2016 Inactive metoprolol succinate ER 25 mg tablet,extended release 24 hr RxNorm: 024637 1 Tablet(s) PO daily 02/24/2016 03/16/2016 Inactive calcium carbonate 50 0 mg calcium (1,250 mg) tablet RxNorm: 298786 TAKE ONE TABLET BY MOUTH DAILY WHILE ON PREDNISONE. MAY STOP TAKING WHEN PREDNISONE IS COMPLETE 02/16/2016 05/15/2016 In active Protonix 40 mg table t,delayed release RxNorm: 267037 TAKE ONE TABLET BY [facility] DAILY WHILE ON PREDNISONE 02/10/2016 05/09/2016 Inactive venlafaxine ER 150 m g capsule,extended release 24 hr RxNorm: 261228 Capsule(s) TAKE ONE CAPSULE BY MOUTH DAILY 12/10/2015 04/07/2016 Inactive calcium carbonate 50 0 mg calcium (1,250 mg) tablet RxNorm: 122286 1 Tablet(s) PO daily 12/01/2015 01/29/2016 Inactive Vitamin D3 1,000 uni t tablet RxNorm: 998812 1 Tablet(s) PO daily 12/01/2015 03/29/2016 Inactive levothyroxine 50 mcg tablet RxNorm: 765309 1 Tablet(s) PO daily 12/01/2015 11/24/2016 Inactive amlodipine 10 mg tablet RxNorm: 953073 1 Tablet(s) PO daily 11/19/2015 11/18/2015 Inactive amlodipine 10 mg tablet RxNorm: 294788 1 Tablet(s) PO daily 11/19/2015 02/23/2016 Inactive amlodipine 5 mg tablet RxNorm: 299732 1 Tablet(s) PO daily 11/17/2015 11/18/2015 Inactive venlafaxine ER 150 m g capsule,extended release 24 hr RxNorm: 962562 TAKE ONE CAPSULE BY MOUTH DAILY 11/13/2015 12/09/2015 Inactive Protonix 40 mg table t,delayed release RxNorm: 475557 1 Tablet(s) PO daily while on prednisone 2015 02/09/2016 Inactive prednisone 10 mg tablet RxNorm: 921109 2 Tablet(s) PO UD 10/30/2015 04/01/2016 Inactive 60mg for 2 days, then 50mg for 2 days, then 40mg for 2 days, then 30mg for 2 days, then 20mg for 2 days, then 10mg for 2 days, then 5mg for 2 days potassium chloride E R 10 mEq tablet,extended release RxNorm: 599974 TAKE ONE TABLET BY MOUTH DAILY 09/22/2015 12/19/2015 Inactive venlafaxine ER 150 m g capsule,extended release 24 hr RxNorm: 809924 TAKE ONE CAPSULE BY MOUTH DAILY 09/08/2015 11/06/2015 Inactive cefdinir 300 mg capsule RxNorm: 672090 1 Capsule(s) PO BID 08/20/2015 08/22/2015 Inactive cefdinir 300 mg capsule RxNorm: 264113 1 Capsule(s) PO BID 08/12/2015 08/18/2015 Inactive Kenalog 40 mg/mL jenna pension for injection RxNorm: 5256671 1 Milliliter(s) Inj 08/04/2015 08/04/2015 In active triamterene 37.5 mg- hydrochlorothiazide 25 mg tablet RxNorm: 753918 1 Tablet(s) PO BID 06/17/2015 08/03/2015 Inactive potassium chloride E R 10 mEq tablet,extended release RxNorm: 855010 1 Tablet(s) PO daily 05/30/2015 08/03/2015 Inactive Levaquin 250 mg tablet RxNorm: 684478 Tablet(s) PO UD 500 mg day one, then 250 mg day 2-7 05/27/2015 08/03/2015 Inactive prednisone 10 mg tablet RxNorm: 301967 Tablet(s) PO UD 05/27/2015 10/29/2015 Inactive 60mg for 2 days, then 50mg for 2 days, then 40mg for 2 days, then 30mg for 2 days, then 20mg for 2 days, then 10mg for 2 days, then 5mg for 2 days albuterol sulfate 1. 25 mg/3 mL solution for nebulization RxNorm: 173340 3 Milliliter(s) INH Q4-6H as needed dyspnea 05/23/2015 09/12/2018 Inactive Zithromax 500 mg tablet RxNorm: 282416 1 Tablet(s) PO daily 05/16/2015 05/15/2015 Inactive Zithromax 500 mg tablet RxNorm: 167273 1 Tablet(s) PO daily 05/16/2015 05/20/2015 Inactive prednisone 20 mg tablet RxNorm: 649790 3 Tablet(s) PO daily 05/12/2015 05/16/2015 Inactive venlafaxine ER 150 m g capsule,extended release 24 hr RxNorm: 189516 TAKE ONE CAPSULE BY MOUTH DAILY 05/12/2015 08/09/2015 Inactive Keflex 500 mg capsule RxNorm: 776749 1 Capsule(s) PO TID 05/12/2015 05/18/2015 Inactive simvastatin 20 mg ta blet RxNorm: 778124 1 Tablet(s) PO daily 04/10/2015 04/09/2015 Inactive simvastatin 20 mg ta blet RxNorm: 499113 1 Tablet(s) PO daily 04/10/2015 08/11/2015 Inactive venlafaxine ER 150 m g capsule,extended release 24 hr RxNorm: 935399 TAKE ONE CAPSULE BY MOUTH DAILY 04/08/2015 05/07/2015 Inactive amlodipine 5 mg tablet RxNorm: 917275 1 Tablet(s) PO daily 03/07/2015 03/06/2015 Inactive amlodipine 5 mg tablet RxNorm: 587378 1 Tablet(s) PO daily 03/07/2015 07/04/2015 Inactive venlafaxine ER 150 m g capsule,extended release 24 hr RxNorm: 822052 1 Capsule(s) PO daily 01/29/2015 03/29/2015 Inactive Co Q-10 oral RxNorm: 36213 oral No Start Date Active gabapentin 100 mg ca psule RxNorm: 419771 1 Capsule(s) PO QAM No Start Date Active albuterol sulfate 1. 25 mg/3 mL solution for nebulization RxNorm: 536193 3 Milliliter(s) INH Q4-6H as needed dyspnea No Start Date 05/22/2015 Inactive levothyroxine 50 mcg tablet RxNorm: 160271 1 Tablet(s) PO daily No Start Date 11/30/2015 Inactive metoprolol succinate ER 50 mg tablet,extended release 24 hr RxNorm: 602707 1 Tablet(s) PO daily No Start Date 09/12/2018 Inactive gabapentin 300 mg ca psule RxNorm: 223953 1 Capsule(s) PO QHS No Start Date 08/09/2016 Inactive vitamin B complex oral RxNorm: 75982 oral No Start Date 09/12/2018 Inactive Vitamin D3 1,000 uni t tablet RxNorm: 495358 1 Tablet(s) PO daily No Start Date 11/30/2015 Inactive Protonix 40 mg table t,delayed release RxNorm: 342383 1 Tablet(s) PO daily while on prednisone No Start Date 10/30/2015 Inactive calcium carbonate oral RxNorm: oral No Start Date 11/30/2015 Inactive potassium chloride E R 10 mEq tablet,extended release RxNorm: 399632 1 Tablet(s) PO daily No Start Date 05/29/2015 Inactive Levaquin 250 mg tablet RxNorm: 754717 Tablet(s) PO UD 500 mg day one, then 250 mg day 2-7 No Start Date 05/26/2015 Inactive triamterene 37.5 mg- hydrochlorothiazide 25 mg tablet RxNorm: 031218 1 Tablet(s) PO BID No Start Date 06/16/2015 Inactive prednisone 10 mg tablet RxNorm: 447370 Tablet(s) PO UD No Start Date 05/26/2015 Inactive 60mg for 2 days, then 50mg for 2 days, then 40mg for 2 days, then 30mg for 2 days, then 20mg for 2 days, then 10mg for 2 days, then 5mg for 2 days venlafaxine ER 150 m g capsule,extended release 24 hr RxNorm: 724498 1 Capsule(s) PO daily No Start Date 01/28/2015 Inactive Medication Administered Medication Codes Instruc tions Start Date Status Kenalog 40 mg/mL suspension for injection RxNorm: 3396778 1.5Milliliter 06/22/2017 No longer Active Kenalog 40 mg/mL suspension for injection RxNorm: 7214314 1Milliliter 08/04/2015 N o longer Active Immunizations [...] Item Item Code Result Date Comp Metabolic Quc945 NA 142 mEq/L 10/12/2018 Comp Metabolic Ikg430 K 4.0 mEq/L 10/12/2018 Comp Metabolic Dnu744 CL 105 mEq/L 10/12/2018 Comp Metabolic Ong627 CO2 21.0 mEq/L 10/12/2018 Comp Metabolic Lpf072 AN ION GAP 20 10/12/2018 Comp Metabolic Gkz157 GL UCOSE 105 mg/dL 10/12/2018 Comp Metabolic Tjc724 Cr eat 1.8 mg/dL 10/12/2018 Comp Metabolic Jzw007 eG FR 30 ml/min/1.73m2 10/12 Comp Metabolic Ikl025 BUN 19 mg/dL 10/12/2018 Comp Metabolic Vnc687 B/ C Ratio 10.5 Ratio 10/12/2018 Comp Metabolic Hhp357 CA LCIUM 9.0 mg/dL 10/12/2018 Comp Metabolic Zux077 AL K PHOS 74 U/L 10/12/2018 Comp Metabolic Swf862 T(SGOT) 21 U/L 10/12/2018 Comp Metabolic Pxe664 AL T(SGPT) 22 U/L 10/12/2018 Comp Metabolic Cre394 BI LI T 0.4 mg/dL 10/12/2018 Comp Metabolic Lao819 AL BUMIN 3.9 g/dL 10/12/2018 Comp Metabolic Rjt072 TP RO 6.1 g/dL 10/12/2018 Comp Metabolic Lbi610 GL OB 2.2 g/dL 10/12/2018 Comp Metabolic Tig600 A/ G Ratio 1.7 Ratio 10/12/2018 Comp Metabolic Vdp055 Os mo 286 mOsmo 10/12/2018 Cbc With [...] 28.0 pg 10/12/2018 Cbc With Differential Ord2 Nolan% 16.6 % 10/12/2018 Cbc With Differential Ord2 [...] 1.77 K/ul 10/12/2018 Cbc With Differential Ord2 Nolan ABS# 2.4 K/ul 10/12/2018 Cbc With Differential Ord2 Eos ABS# 0.0 K/ul 10/12/2018 Cbc With Differential Ord2 Baso ABS# 0.0 K/ul 10/12/2018 Electrolytes Ord62 NA 140 mEq/L 09/15/2018 Electrolytes Ord62 K 4.2 mEq/L 09/15/2018 Electrolytes Ord62 CL 111 mEq/L 09/15/2018 Electrolytes Ord62 CO2 20.0 mEq/L 09/15/2018 Electrolytes Ord62 ANION GAP 13 09/15/2018 Comp Metabolic Ley143 NA 140 mEq/L 01/10/2018 Comp Metabolic Kak443 K 3.8 mEq/L 01/10/2018 Comp Metabolic Rqz492 CL 106 mEq/L 01/10/2018 Comp Metabolic Jmr634 CO2 25.0 mEq/L 01/10/2018 Comp Metabolic Qqt594 AN ION GAP 13 01/10/2018 Comp Metabolic Men463 GL UCOSE 110 mg/dL 01/10/2018 Comp Metabolic Caq809 Cr eat 1.5 mg/dL 01/10/2018 Comp Metabolic Fsp884 eG FR 37 ml/min/1.73m2 01/10 Comp Metabolic Gqx168 BUN 23 mg/dL 01/10/2018 Comp Metabolic Mej169 B/ C Ratio 15.3 Ratio 01/10/2018 Comp Metabolic Sjc426 CA LCIUM 9.2 mg/dL 01/10/2018 Comp Metabolic Zxm316 AL K PHOS 87 U/L 01/10/2018 Comp Metabolic Awn194 T(SGOT) 15 U/L 01/10/2018 Comp Metabolic Wtg779 AL T(SGPT) 9 U/L 01/10/2018 Comp Metabolic Ahk640 BI LI T 0.4 mg/dL 01/10/2018 Comp Metabolic Cob486 AL BUMIN 3.8 g/dL 01/10/2018 Comp Metabolic Bmr584 TP RO 6.2 g/dL 01/10/2018 Comp Metabolic Mpq312 GL OB 2.4 g/dL 01/10/2018 Comp Metabolic Hba226 A/ G Ratio 1.6 Ratio 01/10/2018 Comp Metabolic Axf031 Os mo 284 mOsmo 01/10/2018 C-Reactive Protein [...] 27.6 pg 01/10/2018 Cbc With Differential Ord2 Nolan% 15.2 % 01/10/2018 Cbc With Differential Ord2 [...] 1.47 K/ul 01/10/2018 Cbc With Differential Ord2 Nolan ABS# 1.0 K/ul 01/10/2018 Cbc With Differential Ord2 Eos ABS# 0.1 K/ul 01/10/2018 Cbc With Differential Ord2 Baso ABS# 0.0 K/ul 01/10/2018 Sed Rate Ord21 ESR 12 mm/hr 01/10/2018 Free T4 Gdg467 FREE T4 0.57 ng/dL 12/06/2017 Tsh Ord6 TSH (3rd IS) 7.40 uIU/mL 12/06/2017 C A/B FLU [id number] Influe nza A Scr Negative 06/22/2017 C A/B FLU [id number] Influe nza B Scr Negative 06/22/2017 C A/B FLU [id number] Influe nza Intrp B AG:PRID:PT:NOSE:NOM:IF See Footnote 06/22/2017 Comp Metabolic Hah395 NA 140 mEq/L 08/30/2016 Comp Metabolic Dsx032 K 3.3 mEq/L 08/30/2016 Comp Metabolic Ems986 CL 104 mEq/L 08/30/2016 Comp Metabolic Cia088 CO2 26.0 mEq/L 08/30/2016 Comp Metabolic Xuh768 AN ION GAP 13 08/30/2016 Comp Metabolic Szx308 GL UCOSE 143 mg/dL 08/30/2016 Comp Metabolic Hiw822 Cr eat 1.3 mg/dL 08/30/2016 Comp Metabolic Mso837 eG FR 43 ml/min/1.73m2 08/30 Comp Metabolic Idi406 BUN 19 mg/dL 08/30/2016 Comp Metabolic Upk753 B/ C Ratio 14.3 Ratio 08/30/2016 Comp Metabolic Hwc158 CA LCIUM 10.0 mg/dL 08/30/2016 Comp Metabolic Roj263 AL K PHOS 67 U/L 08/30/2016 Comp Metabolic Hzk860 T(SGOT) 28 U/L 08/30/2016 Comp Metabolic Lfl183 AL T(SGPT) 43 U/L 08/30/2016 Comp Metabolic Syz959 BI LI T 0.4 mg/dL 08/30/2016 Comp Metabolic Opp916 AL BUMIN 4.0 g/dL 08/30/2016 Comp Metabolic Ofw599 TP RO 6.2 g/dL 08/30/2016 Comp Metabolic Btx204 GL OB 2.2 g/dL 08/30/2016 Comp Metabolic Mlv253 A/ G Ratio 1.8 Ratio 08/30/2016 Comp Metabolic Yyy976 Os mo 284 mOsmo 08/30/2016 %Hba1C Btj752 % HbA1c 49776-2 6.1 % 08/30/2016 %Hba1C Vaz968 Gluc Ave 128 mg/dL 08/30/2016 Free T4 Juc811 FREE T4 0.75 ng/dL 06/25/2016 Tsh Ord6 [...] Ord90 Mag 2.1 mg/dL 12/16/2015 Free T4 Ssm430 FREE T4 0.92 ng/dL 12/16/2015 Tsh Ord6 [...] 28.5 pg 08/04/2015 Cbc With Differential Ord2 Nolan% 6.1 % 08/04/2015 Cbc With Differential Ord2 [...] 0.73 K/ul 08/04/2015 Cbc With Differential Ord2 Nolan ABS# 0.5 K/ul 08/04/2015 Cbc With Differential Ord2 Eos ABS# 0.1 K/ul 08/04/2015 Cbc With Differential Ord2 Baso ABS# 0.0 K/ul 08/04/2015 Cbc With Differential Ord2 New Analyzer Notice Please note new ref ranges s tarting 07-09-2015 due to implemntation of new five part differential hematolgy analyzer. 08/04/2015 C-Reactive Protein Qnt Crqnt CRP 0.8 mg/dl 08/04/2015 Comp Metabolic Bug906 NA 139 mEq/L 08/04/2015 Comp Metabolic Vlg796 K 3.4 mEq/L 08/04/2015 Comp Metabolic Jpo418 CL 109 mEq/L 08/04/2015 Comp Metabolic Xfq927 CO2 22.0 mEq/L 08/04/2015 Comp Metabolic Bxh306 AN ION GAP 11 08/04/2015 Comp Metabolic Ooc746 GL UCOSE 177 mg/dL 08/04/2015 Comp Metabolic Xso257 Cr eat 1.0 mg/dL 08/04/2015 Comp Metabolic Qum892 eG FR 64 ml/min/1.73m2 08/04 Comp Metabolic Zre620 BUN 35 mg/dL 08/04/2015 Comp Metabolic Vnh566 B/ C Ratio 36.8 Ratio 08/04/2015 Comp Metabolic Qbr598 CA LCIUM 8.5 mg/dL 08/04/2015 Comp Metabolic Olr920 AL K PHOS 57 U/L 08/04/2015 Comp Metabolic Vua773 T(SGOT) 21 U/L 08/04/2015 Comp Metabolic Gki657 AL T(SGPT) 63 U/L 08/04/2015 Comp Metabolic Jzw486 BI LI T 0.3 mg/dL 08/04/2015 Comp Metabolic Ghc298 AL BUMIN 3.1 g/dL 08/04/2015 Comp Metabolic Gaw322 TP RO 5.1 g/dL 08/04/2015 Comp Metabolic Pxr879 GL OB 2.0 g/dL 08/04/2015 Comp Metabolic Fni164 A/ G Ratio 1.6 Ratio 08/04/2015 Comp Metabolic Ebb143 Os mo 290 mOsmo 08/04/2015 Cpk Ord61 CPK 52 U/L 08/04/2015 Random Urine Protein/Creatinine Ratio Vkm7416 U Prot 8.5 mg/dl 05/27/2015 Random Urine Protein/Creatinine Ratio Knb7916 U CREAT 201.0 mg/dL 05/27/2015 Random Urine Protein/Creatinine Ratio Kyf1776 R MTP/Creat Ratio 0.04 05/27/2015 Urinalysis Ord28 [...] hours from collection if refrigerated) 05/27/2015 Renal Kst641 NA 136 mEq/L 05/26/2015 Renal Hjh220 K 3.3 mEq/L 05/26/2015 Renal Rhr534 CL 99 mEq/L 05/26/2015 Renal Kju603 CO2 25.0 mEq/L 05/26/2015 Renal Ite147 ANION GAP 15 05/26/2015 Renal Egh806 Osmo 274 mOsmo 05/26/2015 Renal Xbo572 GLUCOSE 106 mg/dL 05/26/2015 Renal Qne795 BUN 17 mg/dL 05/26/2015 Renal Iog021 Creat 1.4 mg/dL 05/26/2015 Renal Tet141 eGFR 40 ml/min/1.73m2 05/26/2015 Renal Bpy157 B/C Ratio 12.0 Ratio 05/26/2015 Renal Jsk204 CALCIUM 9.3 mg/dL 05/26/2015 Renal Ado324 PHOS 3.4 mg/dL 05/26/2015 Renal Tdz416 ALBUMIN 3.4 g/dL 05/26/2015 Cbc With Differential [...] Ord2 RDW 14.3 % 04/21/2015 Free T4 Qxh723 FREE T4 0.91 ng/dL 04/21/2015 %Hba1C Dwk365 % HbA1c 31310-3 5.8 % 04/21/2015 %Hba1C Ist119 Gluc Ave 120 mg/dL 04/21/2015 Comp Metabolic Vul007 NA 137 mEq/L 04/21/2015 Comp Metabolic Dqv741 K 3.6 mEq/L 04/21/2015 Comp Metabolic Ing007 CL 98 mEq/L 04/21/2015 Comp Metabolic Cbh277 CO2 25.0 mEq/L 04/21/2015 Comp Metabolic Ywj351 AN ION GAP 18 04/21/2015 Comp Metabolic Zkr175 GL UCOSE 83 mg/dL 04/21/2015 Comp Metabolic Lhk649 Cr eat 1.6 mg/dL 04/21/2015 Comp Metabolic Jgs397 eG FR 36 ml/min/1.73m2 04/21 Comp Metabolic Uyp363 BUN 28 mg/dL 04/21/2015 Comp Metabolic Tou034 B/ C Ratio 17.9 Ratio 04/21/2015 Comp Metabolic Jkq605 CA LCIUM 9.5 mg/dL 04/21/2015 Comp Metabolic Kov001 AL K PHOS 60 U/L 04/21/2015 Comp Metabolic Kbt782 T(SGOT) 22 U/L 04/21/2015 Comp Metabolic Gkq235 AL T(SGPT) 10 U/L 04/21/2015 Comp Metabolic Pqs903 BI LI T 0.4 mg/dL 04/21/2015 Comp Metabolic Xwo266 AL BUMIN 4.0 g/dL 04/21/2015 Comp Metabolic Kgt403 TP RO 6.8 g/dL 04/21/2015 Comp Metabolic Jwr391 GL OB 2.8 g/dL 04/21/2015 Comp Metabolic Cbv826 A/ G Ratio 1.4 Ratio 04/21/2015 Comp Metabolic Piv421 Os mo 278 mOsmo 04/21/2015 Tsh Ord6 [...] Procedure Codes Date THER/PROPH/DIAG INJ SC/IM CPT-4: 81296 06/22/2017 TRIAMCINOLONE ACET I [place] NOS CPT-4: J3301 06/22/2017 THER/PROPH/DIAG INJ SC/IM CPT-4: 68231 08/04/2015 TRIAMCINOLONE ACET I [place] NOS CPT-4: J3301 08/04/2015 Vital Signs Date Vital 10/12/2018 Blood Pressure 1: 110/74 Code: 8480-6 Heart Rate 1: 105 bpm Height: 5'1" SpO2: 95% Weight: 09/13/2018 Blood Pressure 1: 156/86 Code: 8480-6 BMI: 32.3 Code: 07835-2 Heart Rate 1: 90 bpm Height: 5'1" SpO2: 98% Weight: 171 lbs 05/04/2018 Blood Pressure 1: 158/88 Code: 8480-6 BMI: 33.3 Code: 71662-2 Heart Rate 1: 63 bpm Height: 5'1" SpO2: 98% Weight: 176 lbs 01/10/2018 Blood Pressure 1: 138/88 Code: 8480-6 BMI: 31.9 Code: 25603-3 Heart Rate 1: 78 bpm Height: 5'1" SpO2: 99% Weight: 169 lbs 12/06/2017 Blood Pressure 1: 158/98 Code: 8480-6 BMI: 32.3 Code: 79141-0 Heart Rate 1: 60 bpm Height: 5'1" SpO2: 100% Weight: 171 lbs 06/22/2017 Blood Pressure 1: 168/92 Code: 8480-6 BMI: 32.6 Code: 66281-1 Heart Rate 1: 133 bpm Height: 5'1" SpO2: 97% Temperature: 37.6 (C ) / 99.7 (F) Weight: 172 lbs 8 oz 03/02/2017 Blood Pressure 1: 168/90 Code: 8480-6 BMI: 35.0 Code: 59920-8 Heart Rate 1: 80 bpm Height: 5'1" SpO2: 94% Weight: 185 lbs 01/24/2017 Blood Pressure 1: 130/68 Code: 8480-6 BMI: 35.3 Code: 79104-9 Heart Rate 1: 66 bpm Height: 5'1" SpO2: 98% Weight: 187 lbs 10/13/2016 Blood Pressure 1: 136/74 Code: 8480-6 BMI: 35.1 Code: 41028-9 Heart Rate 1: 71 bpm Height: 5'1" SpO2: 97% Weight: 186 lbs 08/30/2016 Blood Pressure 1: 128/80 Code: 8480-6 BMI: 35.0 Code: 44363-5 Heart Rate 1: 75 bpm Height: 5'1" SpO2: 96% Weight: 185 lbs 8 oz 07/02/2016 Blood Pressure 1: 140/78 Code: 8480-6 Heart Rate 1: 63 bpm Height: 5'1" SpO2: 98% 06/24/2016 Blood Pressure 1: 148/100 Code: 8480-6 BMI: 34.2 Code: 70547-6 Heart Rate 1: 110 bpm Height: 5'1" SpO2: 94% Weight: 181 lbs 05/04/2016 Blood Pressure 1: 150/90 Code: 8480-6 Blood Pressure 1: 134/82 Code: 8480-6 BMI: 34.6 Code: 78510-5 Heart Rate 1: 74 bpm Height: 5'1" SpO2: 98% Weight: 183 lbs 04/06/2016 Blood Pressure 1: 156/92 Code: 8480-6 Blood Pressure 1: 158/88 Code: 8480-6 BMI: 34.8 Code: 60595-2 Heart Rate 1: 69 bpm Height: 5'1" SpO2: 97% Weight: 184 lbs 03/18/2016 Blood Pressure 1: 148/90 Code: 8480-6 BMI: 35.1 Code: 51083-1 Heart Rate 1: 106 bpm Height: 5'1" SpO2: 94% Weight: 186 lbs 03/11/2016 Blood Pressure 1: 140/90 Code: 8480-6 BMI: 35.1 Code: 55041-1 Heart Rate 1: 103 bpm Height: 5'1" SpO2: 96% Weight: 186 lbs 02/24/2016 Blood Pressure 1: 130/80 Code: 8480-6 BMI: 34.4 Code: 65938-8 Heart Rate 1: 110 bpm Height: 5'1" SpO2: 96% Weight: 182 lbs 12/16/2015 Blood Pressure 1: 144/98 Code: 8480-6 BMI: 33.8 Code: 13931-8 Heart Rate 1: 97 bpm Height: 5'1" SpO2: 98% Weight: 179 lbs 10/30/2015 Blood Pressure 1: 138/88 Code: 8480-6 BMI: 33.6 Code: 23528-8 Heart Rate 1: 88 bpm Height: 5'1" SpO2: 98% Weight: 178 lbs 09/23/2015 Blood Pressure 1: 152/94 Code: 8480-6 BMI: 32.7 Code: 41861-9 Heart Rate 1: 83 bpm Height: 5'1" SpO2: 97% Weight: 173 lbs 09/10/2015 Blood Pressure 1: 136/82 Code: 8480-6 BMI: 32.1 Code: 58663-0 Heart Rate 1: 105 bpm Height: 5'1" SpO2: 97% Weight: 170 lbs 08/12/2015 Blood Pressure 1: 132/70 Code: 8480-6 BMI: 31.2 Code: 19979-9 Heart Rate 1: 88 bpm Height: 5'1" SpO2: 95% Temperature: 36.7 (C ) / 98.0 (F) Weight: 165 lbs 08/04/2015 Blood Pressure 1: 136/80 Code: 8480-6 BMI: 31.0 Code: 33765-4 Heart Rate 1: 110 bpm Height: 5'1" SpO2: 98% Weight: 164 lbs 05/16/2015 Blood Pressure 1: 138/88 Code: 8480-6 BMI: 32.9 Code: 38616-9 Heart Rate 1: 87 bpm Height: 5'1" SpO2: 90% Weight: 174 lbs 05/12/2015 BMI: 31.7 Code: 10460-9 Height: 5'1" Weight: 168 lbs 04/21/2015 Blood Pressure 1: 124/82 Code: 8480-6 BMI: 32.1 Code: 80898-3 Heart Rate 1: 87 bpm Height: 5'1" [...] of the thyroid 12/06/2017 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[place] 12/06/2017 None hypothyroid Onset and Resolution [...] of the thyroid 08/30/2016 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[place] 08/30/2016 None hypothyroid Onset and Resolution [...] of the thyroid 05/04/2016 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 PATIENT, LEVEL III Diagnosis: Chronic kidney disease, stage 3 (moderate)[ICD10: N18.3] Diagnosis: Essential (primary) hypertension[ICD10: I10] Diagnosis: Encounter for follow-up examination after completed treatment for conditions other than malignant neoplasm[ICD10: Z09] Britney Maya MD, [facility] CPT-4: 30137 10/12/2018 94792 EST. PATIENT, LEVEL III Diagnosis: Hypokalemia[ICD10: E87.6] Diagnosis: Interstitial pulmonary disease, unspecified[ICD10: J84.9] Britney Maya MD, [facility] CPT-4: 41853 09/13/2018 58134 EST. PATIENT, LEVEL IV Diagnosis: Essential (primary) hypertension[ICD10: I10] Diagnosis: Interstitial pulmonary disease, unspecified[ICD10: J84.9] Diagnosis: Chronic kidney disease, stage 3 (moderate)[ICD10: N18.3] Diagnosis: Mixed hyperlipidemia[ICD10: E78.2] Britney Maya MD, [facility] CPT-4: 38191 05/04/2018 43198 EST. PATIENT, LEVEL IV Diagnosis: Essential (primary) hypertension[ICD10: I10] Diagnosis: Interstitial pulmonary disease, unspecified[ICD10: J84.9] Diagnosis: Chronic kidney disease, stage 3 (moderate)[ICD10: N18.3] Diagnosis: Mixed hyperlipidemia[ICD10: E78.2] Britney Maya MD, [facility] CPT-4: 18378 01/10/2018 98676 EST. PATIENT, LEVEL IV Diagnosis: Other specified hypothyroidism[ICD10: E03.8] Diagnosis: Essential (primary) hypertension[ICD10: I10] Britney Maya MD, [facility] CPT-4: 29668 12/06/2017 11702 EST. PATIENT, LEVEL IV Diagnosis: Other malaise[ICD10: R53.81] Diagnosis: Other fatigue[ICD10: R53.83] Britney Maya MD, [facility] CPT-4: 39556 06/22/2017 01797 EST. PATIENT, LEVEL IV Diagnosis: Acute laryngopharyngitis[ICD10: J06.0] Diagnosis: Other acute sinusitis[ICD10: J01.80] Diagnosis: Other allergic rhinitis[ICD10: J30.89] Britney Maya MD, [facility] CPT-4: 13360 03/02/2017 67032 EST. PATIENT, LEVEL IV Diagnosis: Generalized hyperhidrosis[ICD10: R61] Diagnosis: Other acute sinusitis[ICD10: J01.80] Diagnosis: Other fatigue[ICD10: R53.83] Diagnosis: Interstitial pulmonary disease, unspecified[ICD10: J84.9] Britney Maya MD, [facility] CPT-4: 81192 01/24/2017 47273 EST. PATIENT, LEVEL IV Diagnosis: Acute laryngopharyngitis[ICD10: J06.0] Diagnosis: Other acute sinusitis[ICD10: J01.80] Britney Maya MD, [facility] CPT- 4: 95360 10/13/2016 ([id number]) 92829 EST. P ATIENT, LEVEL IV Diagnosis: Essential (primary) hypertension[ICD10: I10] Diagnosis: Drug-induced polyneuropathy[ICD10: G62.0] Diagnosis: Impaired fasting glucose[ICD10: R73.01] Catie Maya MD, [facility] CPT-4: 75085 08/30/2016 57965 EST. PATIENT, LEVEL IV Diagnosis: Pain in thoracic spine[ICD10: M54.6] Diagnosis: Pain in left shoulder[ICD10: M25.512] Diagnosis: Zoster without complications[ICD10: B02.9] Britney Maya MD, [facility] CPT-4: 05605 07/02/2016 46220 EST. PATIENT, LEVEL III Diagnosis: Other specified hypothyroidism[ICD10: E03.8] Diagnosis: Menopausal and female climacteric states[ICD10: N95.1] Diagnosis: Essential (primary) hypertension[ICD10: I10] Britney Maya MD, [facility] CPT-4: 67867 06/24/2016 ([id number]) 41909 EST. P ATIENT, LEVEL IV Diagnosis: Essential (primary) hypertension[ICD10: I10] Diagnosis: Atrophy of thyroid (acquired)[ICD10: E03.4] Diagnosis: Pain in left foot[ICD10: M79.672] Meghana Maya MD, [facility] CPT-4: 09914 05/04/2016 ([id number]) 91075 EST. P ATIENT, LEVEL IV Diagnosis: Essential (primary) hypertension[ICD10: I10] Diagnosis: Pain in left leg[ICD10: M79.605] Diagnosis: Pain in left foot[ICD10: M79.672] Diagnosis: Atrophy of thyroid (acquired)[ICD10: E03.4] Meghana Maya MD, C CPT-4: 24593 04/06/2016 ([id number]) 07269 EST. P ATIENT, LEVEL III Diagnosis: Essential (primary) hypertension[ICD10: I10] Diagnosis: Localized edema[ICD10: R60.0] Catie Maya MD, [facility] CPT- 4: 47151 03/18/2016 ([id number]) 45823 EST. P ATIENT, LEVEL III Diagnosis: Essential (primary) hypertension[ICD10: I10] Diagnosis: Pain in left foot[ICD10: M79.672] Catie Maya MD, [facility] CPT- 4: 22716 03/11/2016 ([id number]) 93075 EST. P ATIENT, LEVEL III Diagnosis: Localized edema[ICD10: R60.0] Diagnosis: Essential (primary) hypertension[ICD10: I10] Catie Maya MD, [facility] CPT-4: 23110 02/24/2016 ([id number]) 89541 EST. P ATIENT, LEVEL IV Diagnosis: Hypothyroidism, unspecified[ICD10: E03.9] Diagnosis: Essential (primary) hypertension[ICD10: I10] Meghana Maya MD, C CPT-4: 00097 12/16/2015 ([id number]) 95766 EST. P ATIENT, LEVEL III Diagnosis: Essential (primary) hypertension[ICD10: I10] Diagnosis: Hypothyroidism, unspecified[ICD10: E03.9] Meghana Maya MD, C CPT-4: 21468 10/30/2015 ([id number]) 30969 EST. P ATIENT, LEVEL IV Diagnosis: Diarrhea, unspecified[ICD10: R19.7] Diagnosis: Essential (primary) hypertension[ICD10: I10] Meghana Maya MD, C CPT-4: 84782 09/23/2015 ([id number]) 46712 EST. P ATIENT, LEVEL III Diagnosis: Essential (primary) hypertension[ICD10: I10] Diagnosis: Diarrhea, unspecified[ICD10: R19.7] Meghana Maya MD, [facility] CPT- 4: 89550 09/10/2015 ([id number]) 94917 EST. P ATIENT, LEVEL III Diagnosis: Acute maxillary sinusitis, unspecified[ICD10: J01.00] Diagnosis: Myositis, unspecified[ICD10: M60.9] Meghana Maya MD, [facility] CPT- 4: 28085 08/12/2015 ([id number]) 93643 EST. P ATIENT, LEVEL IV Diagnosis: Essential (primary) hypertension[ICD10: I10] Diagnosis: Pain in left leg[ICD10: M79.605] Diagnosis: Other myositis, multiple sites[ICD10: M60.89] Diagnosis: Hypothyroidism, unspecified[ICD10: E03.9] Meghana Maya MD, [facility] CPT-4: 95390 08/04/2015 84717 EST. PATIENT, LEVEL III Diagnosis: Dyspnea, unspecified[ICD10: R06.00] Diagnosis: Essential (primary) hypertension[ICD10: I10] Meghana Maya MD, [facility] CPT-4: 92042 05/16/2015 ([id number]) 42376 EST. P ATIENT, LEVEL II Diagnosis: Dyspnea, unspecified[ICD10: R06.00] Meghana Maya MD, [facility] CPT- 4: 55121 05/12/2015 ([id number]) OFFICE [facility] - LEVEL 4 Diagnosis: Essential (primary) hypertension[ICD10: I10] Diagnosis: Impaired fasting glucose[ICD10: R73.01] Diagnosis: Mixed hyperlipidemia[ICD10: E78.2] Diagnosis: Hypothyroidism, unspecified[ICD10: E03.9] Diagnosis: Encounter for screening mammogram for malignant neoplasm of breast[ICD10: Z12.31] Catie aMya MD, [facility] CPT-4: 42023 04/21/2015 Plan of Care Planned Activity Notes [...] to monitor - pt has seen a geospatial technologist in the 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 Hospital follow up - This was a follow up appointment from the patient's hospitalization during which time Dr. Maya formulated the assessment and plan for the follow up on this patient's medical condition. 10/12/2018 Appointment: Britney Bower WPtel: [phone] [facility] (30 min) Complex 10/12/2018 Patient Education: Patient Medication Summary Completed 10/12/2018 Visit Plan: Hypokalemia - will send RX for potassium and monitor labs Interstitial lung disease - pt is to follow up with specialist and notify clinic with any changes in current treatment plan 09/13/2018 Appointment: Britney Bower WPtel: [phone] [facility] (30 min) Complex 09/13/2018 Patient Education: Patient [...] current treatment plan 05/04/2018 Appointment: Britney Bowertel: [phone] [facility] [place] (15 min) Moderate 05/04/2018 Patient Education: [...] plan 01/10/2018 [phone] [facility] 01/10/2018 Patient Education: [...] control. 12/06/2017 App[facility]ment: [phone] ([facility] min) Moderate 12/06/2017 Patient Education: Patient Medication Summary Completed 12/06/2017 Visit Plan: URI - Pt advised to inc rease fluids, vitamin C. Discussed natural and expected course of this diagnosis and need to alert me if symptoms do not follow expected course, or if any worse. RX sent to patient's pharmacy. 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 Maya - will increase clonidine to BID - pt is to consider referral to dermatology - notify clinic if symptoms do not improve, if they worsen, or with any other questions or concerns. 01/24/2017 Appointment: [phone] [place] (30 min) Complex 01/24/2017 Patient [...] improvement. 10/13/2016 Appointment: Britney Bower WPtel: [phone] [facility] (30 min) Complex 10/13/2016 Patient Education: Patient [...] change in blood pressure readings at home. 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 07/02/2016 Appointment: [phone] ([facility]) Complex 07/02/2016 Patient Education: [...] control. 06/24/2016 App[facility]ment: [phone] ([facility] min) Complex 06/24/2016 Patient Education: Patient Medication Summary Completed 06/24/2016 Patient Education: Obesity Completed 06/24/2016 Patient Education: Hypertension Completed 06/24/2016 Patient Education: Patient Medication Summary Completed 05/14/2016 Care Plan: SCREENINGMAMMOGRAPHYDIGITAL [facility] : 86731-2 Pending 05/14/2016 Visit Plan: Hypertension - well [...] painful. 05/04/2016 Appointment: [phone] [place] (15 min) Moderate 05/04/2016 Patient Education: [...] medication. 04/06/2016 Appointment: [facility]Ptel[phone] (15 min) Moderate 04/06/2016 Patient Education: Patient Medication Summary Completed 04/06/2016 Patient Education: Obesity Completed 04/06/2016 Care Plan: Referral Order SNOMED-CT : [id number] Pending 04/06/2016 Visit Plan: Edema-improved with low [...] acute concerns. 03/18/2016 Appointment: [facility] Shoemaker [facility]Ptel[phone] [place] (15 min) Moderate 03/18/2016 Patient [...] xray left foot-recommend she follow up with clerical coordinator at regarding left foot pain/numbness/weakness. Patient has noticed worsening symptoms since decreasing prednisone. 03/11/2016 Appointment: Catie Shoemaker WPtel: [facility] (15 min) Moderate 03/11/2016 Patient Education: Patient Medication Summary Completed 03/11/2016 Patient Education: Obesity Completed 03/11/2016 Appointment: Catie Shoemaker WPtel: [address] [place], [place] [id number] (30 min) Complex 03/09/2016 Visit Plan: Edema [...] 02/24/2016 Appointment: Catie Shoemaker WPtel: [facility] (15 min) Moderate 02/24/2016 Patient Education: Patient Medication Summary Completed 02/24/2016 Patient Education: Obesity Completed 02/24/2016 Patient Education: Hypertension Completed 02/24/2016 Appointment: Meghana Maya WPtel: [facility]0 [facility] (15 min) Moderate 02/23/2016 [...] of control. 12/16/2015 Appointment: Meghana Maya WPtel: [facility] (15 min) Moderate 12/16/2015 Patient Education: [...] Complex 10/23/2015 Appointment: Meghana Maya WPtel: [phone] (15 min) Moderate 10/23/2015 Visit Plan: [...] at home. 09/10/2015 Appointment: Meghana Maya WPtel: [facility]5 [facility] (15 min) Moderate 09/10/2015 Patient Education: Patient [...] Complex 07/24/2015 Appointment: Meghana Maya WPtel: [phone] (15 min) Moderate 07/24/2015 Appointment: Lab [...] Completed 04/21/2015 Care Plan: SCREENINGMAMMOGRAPHYDIGITAL LOINC : 71736-7 Ordered 04/21/2015 Appointment: Meghana Maya WPtel: [facility] [place] (S[facility] New Patient 04/01/2015 Referral: [...] SPECIALIZES IN FOOT AND ANKLE DISEASE AT [address] INCREASE THE METOPROLOL TO 1.5 PILLS [...] change in blood pressure readings at home. 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 Maya - will increase clonidine to BID - pt is to consider referral to dermatology - notify clinic if symptoms do not improve, if they worsen, or with any other questions or concerns. probiotic - culturel Mobim, probiotic pearls, etc - take three times [...] to monitor - pt has seen a geospatial technologist in the past and does not want [...]
--- OUTSIDE RECORDS SUMMARY | 2019-08-14 06:35 | XMS REPORT | Continuity of Care Document ---
Author Organization Unknown Address Unknown Phone Unavailable Allergies Active Description Code Type Severity Reaction Onset Reported/Identified Relationship to Patient Clinical Status Yes No Known Drug Allergies [id number] Drug Allergy Unknown N/A 09/01/2007 Medications There is no data. Problems Date Dx Coded Attending Type Code Diagnosis Diagnosed By 05/16/2012 Ot 593.9 LOREN Sherry URETERAL DIS NOS 10/24/2014 Ot V76.12 10/24/2014 Ot 611.89 10/24/2014 Ot V76.12 10/24/2014 Ot 610.0 10/24/2014 Ot V76.12 10/24/2014 Ot 587 10/24/2014 Ot 593.9 10/24/2014 BUSHRA MCPHERSON MD Ot V76.12 04/22/2015 Ot 611.89 04/22/2015 Ot V76.12 04/22/2015 Ot 610.0 04/22/2015 Ot V76.12 04/22/2015 Ot 587 04/22/2015 Ot 593.9 04/22/2015 BUSHRA MCPHERSON MD Ot V76.12 05/01/2015 Ot 611.89 05/01/2015 Ot V76.12 05/01/2015 Ot 610.0 05/01/2015 Ot V76.12 05/01/2015 Ot 587 05/01/2015 Ot 593.9 05/01/2015 BUSHRA MCPHERSON MD Ot V76.12 05/12/2015 JUVENAL MARION Ot Z12.39 05/14/2015 KAREN BOLDEN TROUBLE TRACER Ot R06.02 05/14/2015 JUVENAL MARION Ot Z12.39 05/29/2015 KAREN BOLDEN TROUBLE TRACER Ot R06.02 06/04/2015 KAREN BOLDEN APRN Ot R06.02 06/04/2015 KAREN BOLDEN TROUBLE TRACER Ot R06.02 06/12/2015 KAREN BOLDEN APRN Ot J18.9 07/02/2015 CHRIS GOLDBERGHEYDI Ot J18. 9 07/02/2015 CHRIS HEYDI GOLDBERG Ot R06. 00 07/02/2015 CHRIS HEYDI GOLDBERG Ot R09. 02 07/02/2015 JUVENAL MARION BRAND ADVOCATE Ot Z12.39 07/02/2015 KAREN BOLDEN TROUBLE TRACER Ot R06.02 07/02/2015 KAREN BOLDEN TROUBLE TRACER Ot R06.02 07/02/2015 KAREN BOLDEN TROUBLE TRACER Ot J18.9 07/02/2015 VLADISLAV GARCIA TRANSFORMER MAKER-C Ot N18.3 07/02/2015 VLADISLAV GARCIA TRANSFORMER MAKER-C Ot N26.9 07/02/2015 VLADISLAV GARCIA TRANSFORMER MAKER-C Ot N28.1 07/02/2015 CHRIS GOLDBERG HEYDI Alejandre Ot J18. 9 07/02/2015 CHRIS GOLDBERG HEYDI Alejandre Ot R06. 00 07/02/2015 CHRIS GOLDBERG HEYDI Alejandre Ot R09. 02 07/08/2015 OTTO RUDOLPH, ANALI A Ot A41.9 07/08/2015 OTTO RUDOLPH, ANALI A Ot E03.9 07/08/2015 OTTO RUDOLPH, ANALI A Ot E86.0 07/08/2015 OTTO RUDOLPH, ANALI A Ot I12.9 07/08/2015 OTTO RUDOLPH, ANALI A Ot J18.9 07/08/2015 OTTO RUDOLPH, ANALI A Ot J96.20 07/08/2015 OTTO RUDOLPH, ANALI A Ot M30.1 07/08/2015 OTTO RUDOLPH, ANALI A Ot N18.3 07/08/2015 OTTO RUDOLPH, ANALI A Ot R65.20 07/09/2015 OTTO RUDOLPH, ANALI A Ot A41.9 07/09/2015 OTTO RUDOLPH, ANALI A Ot E03.9 07/09/2015 OTTO RUDOLPH, ANALI A Ot E86.0 07/09/2015 OTTO RUDOLPH, ANALI A Ot I12.9 07/09/2015 OTTO RUDOLPH, ANALI A Ot J18.9 07/09/2015 OTTO RUDOLPH, ANALI A Ot J96.20 07/09/2015 OTTO RUDOLPH, ANALI A Ot M30.1 07/09/2015 OTTO RUDOLPH, ANALI A Ot N18.3 07/09/2015 OTTO RUDOLPH, ANALI A Ot R65.20 07/09/2015 NEW, VLADISLAV Penn TRANSFORMER MAKER-C Ot N18.3 07/09/2015 NEW, VLADISLAV Penn TRANSFORMER MAKER-C Ot N26.9 07/09/2015 NEW, VLADISLAV Penn TRANSFORMER MAKER-C Ot N28.1 07/09/2015 HEYDI PEREZ DO M Ot J18. 9 07/09/2015 HEYDI PEREZ DO M Ot R06. 00 07/09/2015 HEYDI PEREZ DO M Ot R09. 02 07/10/2015 OTTO RUDOLPH, ANALI A Ot A41.9 07/10/2015 OTTO RUDOLPH, ANALI A Ot E03.9 07/10/2015 OTTO RUDOLPH, ANALI A Ot E86.0 07/10/2015 OTTO RUDOLPH, ANALI A Ot I12.9 07/10/2015 OTTO RUDOLPH, ANALI A Ot J18.9 07/10/2015 OTTO RUDOLPH, ANALI A Ot J96.20 07/10/2015 OTTO RUDOLPH, ANALI A Ot M30.1 07/10/2015 OTTO RUDOLPH, ANALI A Ot N18.3 07/10/2015 OTTO RUDOLPH, ANALI A Ot R65.20 07/10/2015 OTTO RUDOLPH, ANALI A Ot A41.9 07/10/2015 OTTO RUDOLPH, ANALI A Ot E03.9 07/10/2015 OTTO RUDOLPH, ANALI A Ot E86.0 07/10/2015 OTTO RUDOLPH, ANALI A Ot I12.9 07/10/2015 OTTO RUDOLPH, ANALI A Ot J18.9 07/10/2015 OTTO RUDOLPH, ANALI A Ot J96.20 07/10/2015 OTTO RUDOLPH, ANALI A Ot M30.1 07/10/2015 OTTO RUDOLPH, ANALI A Ot N18.3 07/10/2015 OTTO RDUOLPH, ANALI A Ot R65.20 07/10/2015 OTTO RUDOLPH, ANALI A Ot A41.9 07/10/2015 OTTO RUDOLPH, ANALI A Ot E03.9 07/10/2015 OTTO RUDOLPH, ANALI A Ot E86.0 07/10/2015 OTTO RUDOLPH, ANALI A Ot I12.9 07/10/2015 OTTO RUDOLPH, ANALI A Ot J18.9 07/10/2015 OTTO RUDOLPH, ANALI A Ot J96.20 07/10/2015 OTTO RUDOLPH, AANLI A Ot M30.1 07/10/2015 OTTO RUDOLPH, ANALI A Ot N18.3 07/10/2015 OTTO RUDLOPH, ANALI A Ot R65.20 07/11/2015 OTTO RUDOLPH, ANALI A Ot A41.9 07/11/2015 OTTO RUDOLPH, ANALI A Ot E03.9 07/11/2015 OTTO RUDOLPH, ANALI A Ot E86.0 07/11/2015 OTTO RUDOLPH, ANALI A Ot I12.9 07/11/2015 OTTO RUDOLPH, ANALI A Ot J18.9 07/11/2015 OTTO RUDOLPH, ANALI A Ot J96.20 07/11/2015 OTTO RUDOLPH, ANALI A Ot M30.1 07/11/2015 OTTO RUDOLPH, ANALI A Ot N18.3 07/11/2015 OTTO RUDOLPH, ANALI A Ot R65.20 07/12/2015 OTTO RUDOLPH, ANALI A Ot A41.9 07/12/2015 OTTO RUDOLPH, ANALI A Ot E03.9 07/12/2015 OTTO RUDOLPH, ANALI A Ot E86.0 07/12/2015 OTTO RUDOLPH, ANALI A Ot I12.9 07/12/2015 OTTO RUDOLPH, ANALI A Ot J18.9 07/12/2015 OTTO RUDOLPH, ANALI A Ot J96.20 07/12/2015 OTTO RUDOLPH, ANALI A Ot M30.1 07/12/2015 OTTO RUDOLPH, ANALI A Ot N18.3 07/12/2015 OTTO RUDOLPH, ANALI A Ot R65.20 07/13/2015 OTTO RUDOLPH, ANALI A Ot A41.9 07/13/2015 OTTO RUDOLPH, ANALI A Ot E03.9 07/13/2015 OTTO RUDOLPH, ANALI A Ot E86.0 07/13/2015 OTTO RUDOLPH, ANALI A Ot I12.9 07/13/2015 OTTO RUDOLPH, ANALI A Ot J18.9 07/13/2015 OTTO RUDOLPH, ANALI A Ot J96.20 07/13/2015 OTTO RUDOLPH, ANALI A Ot M30.1 07/13/2015 OTTO RUDOLPH, ANALI A Ot N18.3 07/13/2015 OTTO RUDOLPH, ANALI A Ot R65.20 07/14/2015 OTTO RUDOLPH, ANALI A Ot A41.9 07/14/2015 OTTO RUDOLPH, ANALI A Ot E03.9 07/14/2015 OTTO RUDOLPH, ANALI A Ot E86.0 07/14/2015 OTTO RUDOLPH, ANALI A Ot I12.9 07/14/2015 OTTO RUDOLPH, ANALI A Ot J18.9 07/14/2015 OTTO RUDOLPH, ANALI A Ot J96.20 07/14/2015 OTTO RUDOLPH, ANALI A Ot M30.1 07/14/2015 OTTO RUDOLPH, ANALI A Ot N18.3 07/14/2015 OTTO RUDOLPH, ANALI A Ot R65.20 07/15/2015 OTTO RUDOLPH, ANALI A Ot A41.9 07/15/2015 OTTO RUDOLPH, ANALI A Ot E03.9 07/15/2015 OTTO RUDOLPH, ANALI A Ot E86.0 07/15/2015 OTTO RUDOLPH, ANALI A Ot I12.9 07/15/2015 OTTO RUDOLPH, ANALI A Ot J18.9 07/15/2015 OTTO RUDOLPH, ANALI A Ot J96.20 07/15/2015 OTTO RUDOLPH, ANALI A Ot M30.1 07/15/2015 OTTO RUDOLPH, ANALI A Ot N18.3 07/15/2015 OTTO RUDOLPH, ANALI A Ot R65.20 07/16/2015 OTTO RUDOLPH, ANALI A Ot A41.9 07/16/2015 OTTO RUDOLPH, ANALI A Ot E03.9 07/16/2015 OTTO RUDOLPH, ANALI A Ot E86.0 07/16/2015 OTTO RUDOLPH, ANALI A Ot I12.9 07/16/2015 OTTO RUDOLPH, ANALI A Ot J18.9 07/16/2015 OTTO RUDOLPH, ANALI A Ot J96.20 07/16/2015 OTTO RUDOLPH, ANALI A Ot M30.1 07/16/2015 OTTO RUDOLPH, ANALI A Ot N18.3 07/16/2015 OTTO RUDOLPH, ANALI A Ot R65.20 07/17/2015 OTTO RUDOLPH, ANALI A Ot A41.9 07/17/2015 OTTO RUDOLPH, ANALI A Ot E03.9 07/17/2015 OTTO RUDOLPH, ANALI A Ot E86.0 07/17/2015 OTTO RUDOLPH, ANALI A Ot I12.9 07/17/2015 OTTO RUDOLPH, ANALI A Ot J18.9 07/17/2015 OTTO RUDOLPH, ANALI A Ot J96.20 07/17/2015 OTTO RUDOLPH, ANALI A Ot M30.1 07/17/2015 OTTO RUDOLPH, ANALI A Ot N18.3 07/17/2015 OTTO RUDOLPH, ANALI A Ot R65.20 07/19/2015 OTTO RUDOLPH, ANALI A Ot A41.9 07/19/2015 OTTO RUDOLPH, ANALI A Ot E03.9 07/19/2015 OTTO RUDOLPH, ANALI A Ot E86.0 07/19/2015 OTTO RUDOLPH, ANAIL A Ot I12.9 07/19/2015 OTTO RUDOLPH, ANALI A Ot J18.9 07/19/2015 OTTO RUDOLPH, ANALI A Ot J96.20 07/19/2015 OTTO RUDOLPH, ANALI A Ot M30.1 07/19/2015 OTTO RUDOLPH, ANALI A Ot N18.3 07/19/2015 OTTO RUDOLPH, ANALI A Ot R65.20 07/20/2015 OTTO RUDOLPH, ANALI Martinez Ot A41.9 SEPSIS, UNSPECIFIED ORGANISM 07/20/2015 OTTO RUDOLPH, ANALI Martinez Ot D72.829 ELEVATED WHITE BLOOD CELL COUNT, UNSPECI 07/20/2015 OTTO RUDOLPH, ANALI Martinez Ot E03.9 HYPOTHYROIDISM, UNSPECIFIED 07/20/2015 OTTO RUDOLPH, ANALI A Ot E86.0 DEHYDRATION 07/20/2015 OTTO RUDOLPH, ANALI Martinez Ot I12.9 HYPERTENSIVE CHRONIC KIDNEY DISEASE W ST 07/20/2015 OTTO RUDOLPH, ANALI Martinez Ot J18.9 PNEUMONIA, UNSPECIFIED ORGANISM 07/20/2015 OTTO RUDOLPH, ANALI Martinez Ot J96.20 ACUTE AND CHR RESP FAILURE, UNSP W HYPOX 07/20/2015 OTTO RUDOLPH, ANALI Martinez Ot J98.11 ATELECTASIS 07/20/2015 ANALI MENJIVAR MD Ot K59.00 CONSTIPATION, UNSPECIFIED 07/20/2015 ANALI MENJIVAR MD Ot M30.1 POLYARTERITIS WITH LUNG INVOLVEMENT [GUERRA 07/20/2015 ANALI MENJIVAR MD Ot N18.3 CHRONIC KIDNEY DISEASE, STAGE 3 (MODERAT 07/20/2015 ANALI MENJIVAR MD Ot R50.9 FEVER, UNSPECIFIED 07/20/2015 ANALI MENJIVAR MD Ot R5 1 HEADACHE 07/20/2015 ANALI MENJIVAR MD Ot R65.20 SEVERE SEPSIS WITHOUT SEPTIC SHOCK 07/20/2015 ANALI MENJIVAR MD Ot T38.0X5A ADVERSE EFFECT OF GLUCOCORT/SYNTH ANALOG 07/20/2015 ANALI MENJIVAR MD Ot Z2 3 ENCOUNTER FOR IMMUNIZATION 07/20/2015 ANALI MENJIVAR MD Ot Z99.81 DEPENDENCE ON SUPPLEMENTAL OXYGEN 08/08/2015 Ot 611.89 08/08/2015 Ot V76.12 08/08/2015 Ot 610.0 08/08/2015 Ot V76.12 08/08/2015 Ot 587 08/08/2015 Ot 593.9 08/08/2015 VIDA RUDOLPH, BUSHRA Alejandre Ot V76.12 09/04/2015 BRADY RUDOLPH, HEYDI Alejandre Ot J84.9 09/04/2015 HEYDI ABREU MD Ot Q99.8 09/04/2015 HEYDI ABREU MD Ot R76.8 09/04/2015 BRADY RUDOLPH, HEYDI Alejander Ot R79.89 09/21/2015 GRETCHEN POZO MD Ot N39.0 URINARY TRACT INFECTION, SITE NOT SPECIF 09/21/2015 GRETCHEN POZO MD Ot R11.2 NAUSEA WITH VOMITING, UNSPECIFIED 09/21/2015 GRETCHEN POZO MD Ot R19.7 DIARRHEA, UNSPECIFIED 09/22/2015 BRADY RUDOLPH, HEYDI Alejandre Ot J84.9 09/22/2015 HEYDI ABREU MD Ot Q99.8 09/22/2015 HEYDI ABREU MD Ot R76.8 09/22/2015 HEYDI ABREU MD Ot R79.89 09/23/2015 GRETCHEN POZO MD Ot N39.0 09/23/2015 NOHELIA RUDOLPH, GRETCHEN Tan Ot R11.2 09/23/2015 NOHELIA RUDOLPH, GRETCHEN Tan Ot R19.7 10/03/2015 NOHELIA RUDOLPH, GRETCHEN Tan Ot N39.0 10/03/2015 NOHELIA RUDOLPH, GRETCHEN Tan Ot R11.2 10/03/2015 NOHELIA RUDOLPH, GRETCHEN Tan Ot R19.7 01/14/2016 DAHLIA RUDOLPH, RITIKA Weller Ot J84. 9 INTERSTITIAL PULMONARY DISEASE, UNSPECIF 01/14/2016 DAHLIA RUDOLPH, RITIKA Weller Ot R09. 02 HYPOXEMIA 03/30/2016 JUVENAL MARION Ot M79.672 PAIN IN LEFT FOOT 04/29/2016 BRADY RUDOLPH, HEYDI Alejandre Ot J84.9 INTERSTITIAL PULMONARY DISEASE, UNSPECIF 04/29/2016 BRADY RUDOLPH, HEYDI Alejandre Ot Q99.8 OTHER SPECIFIED CHROMOSOME ABNORMALITIES 04/29/2016 HEYDI ABREU MD Ot R76.8 OTHER SPECIFIED ABNORMAL IMMUNOLOGICAL F 04/29/2016 BRADY RUDOLPH, HEYDI Alejandre Ot R79.89 OTHER SPECIFIED ABNORMAL FINDINGS OF BLO 04/29/2016 DAHLIA RUDOLPH, RITIKA Weller Ot J84. 9 INTERSTITIAL PULMONARY DISEASE, UNSPECIF 04/29/2016 DAHLIA RUDOLPH, RITIKA Weller Ot R09. 02 HYPOXEMIA 04/29/2016 JUVENAL MARION Ot M79.672 PAIN IN LEFT FOOT 04/30/2016 KAREN BOLDEN APRN Ot M33.20 POLYMYOSITIS, ORGAN INVOLVEMENT UNSPECIF 05/14/2016 KAREN BOLDEN APRN Ot M33.20 POLYMYOSITIS, ORGAN INVOLVEMENT UNSPECIF 08/05/2016 Ot V76.12 OTH SCREEN MAMMO- MALIGN NEOPLASM OF MAU 08/05/2016 Ot 587 RENAL SCLEROSIS NOS 08/05/2016 Ot 593.9 LOREN L URETERAL DIS NOS 08/05/2016 BUSHRA MCPHERSON MD Ot V76.12 OTH SCREEN MAMMO-MALIGN NEOPLASM OF MAU 02/09/2017 RITIKA VILLAGOMEZ MD Ot J84. 9 INTERSTITIAL PULMONARY DISEASE, UNSPECIF 02/09/2017 JUVENAL MARION Ot Z12.39 ENCOUNTER FOR OTH SCREENING FOR MALIGNAN 02/09/2017 KAREN BOLDEN APRN Ot R06.02 SHORTNESS OF BREATH 02/09/2017 KAREN BOLDEN TROUBLE TRACER Ot R06.02 SHORTNESS OF BREATH 02/09/2017 KAREN BOLDEN TROUBLE TRACER Ot J18.9 PNEUMONIA, UNSPECIFIED ORGANISM 02/09/2017 RADHAVLADISLAVUlises TRANSFORMER MAKER-C Ot N18.3 CHRONIC KIDNEY DISEASE, STAGE 3 (MODERAT 02/09/2017 RADHAVLADISLAVUlises TRANSFORMER MAKER-C Ot N26.9 RENAL SCLEROSIS, UNSPECIFIED 02/09/2017 RADHAVLADISLAVUlises TRANSFORMER MAKER-C Ot N28.1 CYST OF KIDNEY, ACQUIRED 02/09/2017 HEYDI PEREZ DO Ot J18. 9 PNEUMONIA, UNSPECIFIED ORGANISM 02/09/2017 HEYDI PEREZ DO Ot R06. 00 DYSPNEA, UNSPECIFIED 02/09/2017 HEYDI PEREZ DO Ot R09. 02 HYPOXEMIA 02/09/2017 DAHLIA RUDOLPH, RITIKA Weller Ot J84. 9 INTERSTITIAL PULMONARY DISEASE, UNSPECIF 03/24/2017 JUVENAL MARION Ot Z12.39 ENCOUNTER FOR OTH SCREENING FOR MALIGNAN 03/24/2017 KAREN BOLDEN TROUBLE TRACER Ot R06.02 SHORTNESS OF BREATH 03/24/2017 KAREN BOLDEN TROUBLE TRACER Ot R06.02 SHORTNESS OF BREATH 03/24/2017 KAREN BOLDEN TROUBLE TRACER Ot J18.9 PNEUMONIA, UNSPECIFIED ORGANISM 03/24/2017 RADHAVLADISLAVUlises TRANSFORMER MAKER-C Ot N18.3 CHRONIC KIDNEY DISEASE, STAGE 3 (MODERAT 03/24/2017 RADHAVLADISLAVUlises TRANSFORMER MAKER-C Ot N26.9 RENAL SCLEROSIS, UNSPECIFIED 03/24/2017 RADHAVLADISLAVUlises TRANSFORMER MAKER-C Ot N28.1 CYST OF KIDNEY, ACQUIRED 03/24/2017 HEYDI PEREZ DO Ot J18. 9 PNEUMONIA, UNSPECIFIED ORGANISM 03/24/2017 HEYDI PEREZ DO Ot R06. 00 DYSPNEA, UNSPECIFIED 03/24/2017 HEYDI PEREZ DO Ot R09. 02 HYPOXEMIA 03/24/2017 DAHLIA RUDOLPH, RITIKA Weller Ot J84. 9 INTERSTITIAL PULMONARY DISEASE, UNSPECIF 04/04/2017 DAHLIA RUDOLPH, RITIKA Weller Ot J84. 9 INTERSTITIAL PULMONARY DISEASE, UNSPECIF 04/21/2017 ALLAN RUDOLPH, LEBRON Triana Ot Z51.81 ENCOUNTER FOR THERAPEUTIC DRUG LEVEL MON 04/22/2017 ERICK RUDOLPH, PIM Ot M25.5 61 PAIN IN RIGHT KNEE 04/22/2017 ERICK RUDOLPH, PIM Ot M33.2 1 POLYMYOSITIS WITH RESPIRATORY INVOLVEMEN 05/05/2017 ERICK RUDOLPH, PIM Ot M25.5 61 PAIN IN RIGHT KNEE 05/05/2017 ERICK RUDOLPH, PIM Ot M33.2 1 POLYMYOSITIS WITH RESPIRATORY INVOLVEMEN 08/04/2017 DAHLIA RUDOLPH, RITIKA Weller Ot J84. 9 INTERSTITIAL PULMONARY DISEASE, UNSPECIF 09/19/2017 DAHLIA RUDOLPH, RITIKA Weller Ot J84. 9 INTERSTITIAL PULMONARY DISEASE, UNSPECIF 09/19/2017 DAHLIA RUDOLPH, RITIKA Weller Ot R91. 8 OTHER NONSPECIFIC ABNORMAL FINDING OF YAW 09/22/2017 RITIKA VILLAGOMEZ MD Ot J84. 9 INTERSTITIAL PULMONARY DISEASE, UNSPECIF 09/22/2017 DAHLIA RUDOLPH, RITIKA Weller Ot R91. 8 OTHER NONSPECIFIC ABNORMAL FINDING OF YAW 09/30/2017 RITIKA VILLAGOMEZ MD Ot J84. 9 INTERSTITIAL PULMONARY DISEASE, UNSPECIF 09/30/2017 DAHLIA RUDOLPH, RITIKA Weller Ot R91. 8 OTHER NONSPECIFIC ABNORMAL FINDING OF YAW 10/10/2017 MORGAN GONZALEZ MD Ot Z51.81 ENCOUNTER FOR THERAPEUTIC DRUG LEVEL MON 10/10/2017 MORGAN GONZALEZ MD Ot Z79.899 OTHER TRAVELING ELECTRICIAN (CURRENT) DRUG THERAPY 12/15/2017 MORGAN GONZALEZ MD Ot Z51.81 ENCOUNTER FOR THERAPEUTIC DRUG LEVEL MON 12/15/2017 MORGAN GONZALEZ MD Ot Z79.899 OTHER INTERMEDIATE (CURRENT) DRUG THERAPY 12/19/2017 MORGAN GONZALEZ MD Ot Z51.81 ENCOUNTER FOR THERAPEUTIC DRUG LEVEL MON 12/19/2017 MORGAN GONZALEZ MD Ot Z79.899 OTHER TRAVELING ELECTRICIAN (CURRENT) DRUG THERAPY 03/25/2018 RITIKA VILLAGOMEZ MD Ot J84. 9 INTERSTITIAL PULMONARY DISEASE, UNSPECIF 03/25/2018 RITIKA VILLAGOMEZ MD Ot R91. 8 OTHER NONSPECIFIC ABNORMAL FINDING OF YAW 03/25/2018 RITIKA VILLAGOMEZ MD Ot J84. 9 INTERSTITIAL PULMONARY DISEASE, UNSPECIF 03/25/2018 ALLAN RUDOLPH, LEBRON Triana Ot Z51.81 ENCOUNTER FOR THERAPEUTIC DRUG LEVEL MON 03/25/2018 ERICK RUDOLPH, PIM Ot M25.5 61 PAIN IN RIGHT KNEE 03/25/2018 ERICK RUDOLPH, PIM Ot M33.2 1 POLYMYOSITIS WITH RESPIRATORY INVOLVEMEN 03/25/2018 DAHLIA RUDOLPH, RITIKA Weller Ot J84. 9 INTERSTITIAL PULMONARY DISEASE, UNSPECIF 03/25/2018 DAHLIA RUDOLPH, RITIKA Weller Ot J84. 9 INTERSTITIAL PULMONARY DISEASE, UNSPECIF 03/25/2018 DAHLIA RUDOLPH, RITIKA Weller Ot R91. 8 OTHER NONSPECIFIC ABNORMAL FINDING OF YAW 03/25/2018 CARLOS RUDOLPH, MORGAN Alejandre Ot Z51.81 ENCOUNTER FOR THERAPEUTIC DRUG LEVEL MON 03/25/2018 CARLOS RUDOLPH, MORGAN Alejandre Ot Z79.899 OTHER INTERMEDIATE (CURRENT) DRUG THERAPY 04/12/2018 JUVENAL MARION Ot Z12.39 ENCOUNTER FOR OTH SCREENING FOR MALIGNAN 04/12/2018 KAREN BOLDEN TROUBLE TRACER Ot R06.02 SHORTNESS OF BREATH 04/12/2018 KAREN BOLDEN TROUBLE TRACER Ot R06.02 SHORTNESS OF BREATH 04/12/2018 KAREN BOLDEN TROUBLE TRACER Ot J18.9 PNEUMONIA, UNSPECIFIED ORGANISM 04/12/2018 VLADISLAV GARCIA TRANSFORMER MAKER-C Ot N18.3 CHRONIC KIDNEY DISEASE, STAGE 3 (MODERAT 04/12/2018 VLADISLAV GARCIA TRANSFORMER MAKER-C Ot N26.9 RENAL SCLEROSIS, UNSPECIFIED 04/12/2018 VLADISLAV GARCIA TRANSFORMER MAKER-C Ot N28.1 CYST OF KIDNEY, ACQUIRED 04/12/2018 HEYDI PEREZ DO Ot J18. 9 PNEUMONIA, UNSPECIFIED ORGANISM 04/12/2018 HEYDI PEREZ DO Ot R06. 00 DYSPNEA, UNSPECIFIED 04/12/2018 HEYDI PEREZ DO Ot R09. 02 HYPOXEMIA 04/12/2018 DAHLIA RUDOLPH, RITIKA Weller Ot J84. 9 INTERSTITIAL PULMONARY DISEASE, UNSPECIF 09/14/2018 DAHLIA RUDOLPH, RITIKA Weller Ot J84. 9 INTERSTITIAL PULMONARY DISEASE, UNSPECIF 09/14/2018 ALLAN RUDOLPH, LEBRON Triana Ot Z51.81 ENCOUNTER FOR THERAPEUTIC DRUG LEVEL MON 09/14/2018 ERICK RUDOLPH, PIM Ot M25.5 61 PAIN IN RIGHT KNEE 09/14/2018 ERICK RUDOLPH, PIM Ot M33.2 1 POLYMYOSITIS WITH RESPIRATORY INVOLVEMEN 09/14/2018 RITIKA VILLAGOMEZ MD Ot J84. 9 INTERSTITIAL PULMONARY DISEASE, UNSPECIF 09/14/2018 DAHLIA RUDOLPH, RITIKA Weller Ot J84. 9 INTERSTITIAL PULMONARY DISEASE, UNSPECIF 09/14/2018 DAHLIA RUDOLPH, RITIKA Weller Ot R91. 8 OTHER NONSPECIFIC ABNORMAL FINDING OF YAW 09/14/2018 CARLOS RUDOLPH, MORGAN Alejandre Ot Z51.81 ENCOUNTER FOR THERAPEUTIC DRUG LEVEL MON 09/14/2018 CARLOS RUDOLPH, MORGAN Alejandre Ot Z79.899 OTHER INTERMEDIATE (CURRENT) DRUG THERAPY 10/04/2018 ORENDER DO, MARISSA S Ot A41.9 SEPSIS, UNSPECIFIED ORGANISM 10/04/2018 ORENDER DO, MARISSA S Ot E03.9 HYPOTHYROIDISM, UNSPECIFIED 10/04/2018 ORENDER DO, MARISSA S Ot E78.00 PURE HYPERCHOLESTEROLEMIA, UNSPECIFIED 10/04/2018 ORENDER DO, MARISSA S Ot E86.0 DEHYDRATION 10/04/2018 ORENDER DO, MARISSA S Ot F41.9 ANXIETY DISORDER, UNSPECIFIED 10/04/2018 ORENDER DO, MARISSA S Ot G62.9 POLYNEUROPATHY, UNSPECIFIED 10/04/2018 ORENDER DO, MARISSA S Ot I12.9 HYPERTENSIVE CHRONIC KIDNEY DISEASE W ST 10/04/2018 ORENDER DO, MARISSA S Ot J18.1 LOBAR PNEUMONIA, UNSPECIFIED ORGANISM 10/04/2018 ORENDER DO, MARISSA S Ot J84.9 INTERSTITIAL PULMONARY DISEASE, UNSPECIF 10/04/2018 ORENDER DO, MARISSA S Ot J98.11 ATELECTASIS 10/04/2018 ORENDER DO, MARISSA S Ot K21.9 GASTRO-ESOPHAGEAL REFLUX DISEASE WITHOUT 10/04/2018 ORENDER DO, MARISSA S Ot M33.20 POLYMYOSITIS, ORGAN INVOLVEMENT UNSPECIF 10/04/2018 ORENDER DO, MARISSA S Ot N17.9 ACUTE KIDNEY FAILURE, UNSPECIFIED 10/04/2018 ORENDER DO, MARISSA S Ot N18.9 CHRONIC KIDNEY DISEASE, UNSPECIFIED 10/04/2018 ORENDER DO, MARISSA S Ot R19.7 DIARRHEA, UNSPECIFIED 10/04/2018 ORENDER DO, MARISSA S Ot R65.20 SEVERE SEPSIS WITHOUT SEPTIC SHOCK 10/04/2018 ORENDER DO, MARISSA S Ot R73.9 HYPERGLYCEMIA, UNSPECIFIED 10/04/2018 ORENDER DO, MARISSA S Ot Z79.899 OTHER INTERMEDIATE (CURRENT) DRUG THERAPY 10/04/2018 ORENDER DO, MARISSA S Ot A41.9 SEPSIS, UNSPECIFIED ORGANISM 10/04/2018 ORENDER DO, MARISSA S Ot E03.9 HYPOTHYROIDISM, UNSPECIFIED 10/04/2018 ORENDER DO, MARISSA S Ot E78.00 PURE HYPERCHOLESTEROLEMIA, UNSPECIFIED 10/04/2018 ORENDER DO, MARISSA S Ot E86.0 DEHYDRATION 10/04/2018 ORENDER DO, MARISSA S Ot F41.9 ANXIETY DISORDER, UNSPECIFIED 10/04/2018 ORENDER DO, MARISSA S Ot G62.9 POLYNEUROPATHY, UNSPECIFIED 10/04/2018 ORENDER DO, MARISSA S Ot I12.9 HYPERTENSIVE CHRONIC KIDNEY DISEASE W ST 10/04/2018 ORENDER DO, MARISSA S Ot J18.1 LOBAR PNEUMONIA, UNSPECIFIED ORGANISM 10/04/2018 ORENDER DO, MARISSA S Ot J84.9 INTERSTITIAL PULMONARY DISEASE, UNSPECIF 10/04/2018 ORENDER DO, MARISSA S Ot J98.11 ATELECTASIS 10/04/2018 ORENDER DO, MARISSA S Ot K21.9 GASTRO-ESOPHAGEAL REFLUX DISEASE WITHOUT 10/04/2018 ORENDER DO, MARISSA S Ot M33.20 POLYMYOSITIS, ORGAN INVOLVEMENT UNSPECIF 10/04/2018 ORENDER DO, MARISSA S Ot N17.9 ACUTE KIDNEY FAILURE, UNSPECIFIED 10/04/2018 ORENDER DO, MARISSA S Ot N18.9 CHRONIC KIDNEY DISEASE, UNSPECIFIED 10/04/2018 ORENDER DO, MARISSA S Ot R19.7 DIARRHEA, UNSPECIFIED 10/04/2018 ORENDER DO, MARISSA S Ot R65.20 SEVERE SEPSIS WITHOUT SEPTIC SHOCK 10/04/2018 ORENDER DO, MARISSA S Ot R73.9 HYPERGLYCEMIA, UNSPECIFIED 10/04/2018 ORENDER DO, MARISSA S Ot Z79.899 OTHER INTERMEDIATE (CURRENT) DRUG THERAPY 10/05/2018 ORENDER DO, MARISSA S Ot A41.9 SEPSIS, UNSPECIFIED ORGANISM 10/05/2018 ORENDER DO, MARISSA S Ot E03.9 HYPOTHYROIDISM, UNSPECIFIED 10/05/2018 ORENDER DO, MARISSA S Ot E78.00 PURE HYPERCHOLESTEROLEMIA, UNSPECIFIED 10/05/2018 ORENDER DO, MARISSA S Ot E86.0 DEHYDRATION 10/05/2018 ORENDER DO, MARISSA S Ot F41.9 ANXIETY DISORDER, UNSPECIFIED 10/05/2018 ORENDER DO, MARISSA S Ot G62.9 POLYNEUROPATHY, UNSPECIFIED 10/05/2018 ORENDER DO, MARISSA S Ot I12.9 HYPERTENSIVE CHRONIC KIDNEY DISEASE W ST 10/05/2018 ORENDER DO, MARISSA S Ot J18.1 LOBAR PNEUMONIA, UNSPECIFIED ORGANISM 10/05/2018 ORENDER DO, MARISSA S Ot J84.9 INTERSTITIAL PULMONARY DISEASE, UNSPECIF 10/05/2018 ORENDER DO, MARISSA S Ot J98.11 ATELECTASIS 10/05/2018 ORENDER DO, MARISSA S Ot K21.9 GASTRO-ESOPHAGEAL REFLUX DISEASE WITHOUT 10/05/2018 ORENDER DO, MARISSA S Ot M33.20 POLYMYOSITIS, ORGAN INVOLVEMENT UNSPECIF 10/05/2018 ORENDER DO, MARISSA S Ot N17.9 ACUTE KIDNEY FAILURE, UNSPECIFIED 10/05/2018 ORENDER DO, MARISSA S Ot N18.9 CHRONIC KIDNEY DISEASE, UNSPECIFIED 10/05/2018 ORENDER DO, MARISSA S Ot R19.7 DIARRHEA, UNSPECIFIED 10/05/2018 ORENDER DO, MARISSA S Ot R65.20 SEVERE SEPSIS WITHOUT SEPTIC SHOCK 10/05/2018 ORENDER DO, MARISSA S Ot R73.9 HYPERGLYCEMIA, UNSPECIFIED 10/05/2018 ORENDER DO, MARISSA S Ot Z79.899 OTHER INTERMEDIATE (CURRENT) DRUG THERAPY 10/05/2018 ORENDER DO, MARISSA S Ot A41.9 SEPSIS, UNSPECIFIED ORGANISM 10/05/2018 ORENDER DO, MARISSA S Ot E03.9 HYPOTHYROIDISM, UNSPECIFIED 10/05/2018 ORENDER DO, MARISSA S Ot E78.00 PURE HYPERCHOLESTEROLEMIA, UNSPECIFIED 10/05/2018 ORENDER DO, MARISSA S Ot E86.0 DEHYDRATION 10/05/2018 ORENDER DO, MARISSA S Ot F41.9 ANXIETY DISORDER, UNSPECIFIED 10/05/2018 ORENDER DO, MARISSA S Ot G62.9 POLYNEUROPATHY, UNSPECIFIED 10/05/2018 ORENDER DO, MARISSA S Ot I12.9 HYPERTENSIVE CHRONIC KIDNEY DISEASE W ST 10/05/2018 ORENDER DO, MARISSA S Ot I16.0 HYPERTENSIVE URGENCY 10/05/2018 ORENDER DO, MARISSA S Ot J18.1 LOBAR PNEUMONIA, UNSPECIFIED ORGANISM 10/05/2018 ORENDER DO, MARISSA S Ot J84.9 INTERSTITIAL PULMONARY DISEASE, UNSPECIF 10/05/2018 ORENDER DO, MARISSA S Ot J98.11 ATELECTASIS 10/05/2018 ORENDER DO, MARISSA S Ot K21.9 GASTRO-ESOPHAGEAL REFLUX DISEASE WITHOUT 10/05/2018 ORENDER DO, MARISSA S Ot M33.20 POLYMYOSITIS, ORGAN INVOLVEMENT UNSPECIF 10/05/2018 ORENDER DO, MARISSA S Ot N17.9 ACUTE KIDNEY FAILURE, UNSPECIFIED 10/05/2018 ORENDER DO, MARISSA S Ot N18.9 CHRONIC KIDNEY DISEASE, UNSPECIFIED 10/05/2018 ORENDER DO, MARISSA S Ot R19.7 DIARRHEA, UNSPECIFIED 10/05/2018 ORENDER DO, MARISSA S Ot R65.20 SEVERE SEPSIS WITHOUT SEPTIC SHOCK 10/05/2018 ORENDER DO, MARISSA S Ot R73.9 HYPERGLYCEMIA, UNSPECIFIED 10/05/2018 ORENDER DO, MARISSA S Ot R91.1 SOLITARY PULMONARY NODULE 10/05/2018 ORENDER DO, MARISSA S Ot Z79.899 OTHER INTERMEDIATE (CURRENT) DRUG THERAPY 02/15/2019 JUVENAL MARION Ot Z12.39 ENCOUNTER FOR OT SCREENING FOR MALIGNAN 02/15/2019 KAREN BOLDEN APRN Ot R06.02 SHORTNESS OF BREATH 02/15/2019 KAREN BOLDEN APRN Ot R06.02 SHORTNESS OF BREATH 02/15/2019 KAREN BOLDEN APRN Ot J18.9 PNEUMONIA, UNSPECIFIED ORGANISM 02/15/2019 NEW, VLADISLAV Penn [employer]-C Ot N18.3 CHRONIC KIDNEY DISEASE, STAGE 3 (MODERAT 02/15/2019 NEW, VLADISLAV Penn [employer]-C Ot N26.9 RENAL SCLEROSIS, UNSPECIFIED 02/15/2019 NEWVLADISLAV TR[employer]FORMER MAKER-C Ot N28.1 CYST OF KIDNEY, ACQUIRED 02/15/2019 HEYDI PEREZ DO Ot J18. 9 PNEUMONIA, UNSPECIFIED ORGANISM 02/15/2019 HEYDI PEREZ DO Ot R06. 00 DYSPNEA, UNSPECIFIED 02/15/2019 HEYDI PEREZ DO Ot R09. 02 HYPOXEMIA 02/15/2019 DAHLIA RUDOLPH, RITIKA Weller Ot J84. 9 INTERSTITIAL PULMONARY DISEASE, UNSPECIF 05/09/2019 Ot 530.81 05/09/2019 Ot 574.20 05/09/2019 Ot V72.81 05/09/2019 Ot V72.83 05/09/2019 Ot V76.12 OTH SCREEN MAMMO- MALIGN NEOPLASM OF MAU 05/09/2019 KAREN BOLDEN APRN Ot J18.9 PNEUMONIA, UNSPECIFIED ORGANISM 05/09/2019 DAHLIA RUDOLPH, RITIKA Weller Ot J84. 9 INTERSTITIAL PULMONARY DISEASE, UNSPECIF 05/09/2019 CARLOS RUDOLPH, MORGAN Alejandre Ot Z51.81 ENCOUNTER FOR THERAPEUTIC DRUG LEVEL MON 05/09/2019 CARLOS RUDOLPH, MORGAN Alejandre Ot Z79.899 OTHER INTERMEDIATE (CURRENT) DRUG THERAPY 05/09/2019 Ot 611.89 OTH ER SPECIFIED DISORDERS OF BREAST 05/09/2019 Ot V76.12 OTH SCREEN MAMMO- MALIGN NEOPLASM OF MAU 05/09/2019 Ot 610.0 BHAKTI TARY CYST OF BREAST 05/09/2019 Ot V76.12 OTH SCREEN MAMMO- MALIGN NEOPLASM OF MAU 05/09/2019 Ot 587 RENAL SCLEROSIS NOS 05/09/2019 VIDA RUDOLPH, BUSHRA Alejandre Ot V76.12 OTH SCREEN MAMMO-MALIGN NEOPLASM OF MAU 05/09/2019 JUVENAL MARION Ot Z12.39 ENCOUNTER FOR OTH SCREENING FOR MALIGNAN 05/09/2019 KAREN BOLDEN APRN Ot R06.02 SHORTNESS OF BREATH 05/09/2019 KAREN BOLDEN APRN Ot R06.02 SHORTNESS OF BREATH 05/09/2019 KAREN BOLDEN APRN Ot J18.9 PNEUMONIA, UNSPECIFIED ORGANISM 05/09/2019 RADHAVLADISLAVUlises [employer]FORMER MAKER-C Ot N18.3 CHRONIC KIDNEY DISEASE, STAGE 3 (MODERAT 05/09/2019 RADHA VLADISLAV [employer] Ot N26.9 RENAL SCLEROSIS, UNSPECIFIED 05/09/2019 RADHAVLADISLAVUlises [employer]-C Ot N28.1 CYST OF KIDNEY, ACQUIRED 05/09/2019 HEYDI PEREZ DO Ot J18. 9 PNEUMONIA, UNSPECIFIED ORGANISM 05/09/2019 HEYDI PEREZ DO Ot R06. 00 DYSPNEA, UNSPECIFIED 05/09/2019 HEYDI PEREZ DO Ot R09. 02 HYPOXEMIA 05/09/2019 HEYDI ABREU MD, Ot J84.9 INTERSTITIAL PULMONARY DISEASE, UNSPECIF 05/09/2019 HEYDI ABREU MD Ot Q99.8 OTHER SPECIFIED CHROMOSOME ABNORMALITIES 05/09/2019 BRADY RUDOLPH, HEYDI Alejandre Ot R76.8 OTHER SPECIFIED ABNORMAL IMMUNOLOGICAL F 05/09/2019 BRADY RUDOLPH, HEYDI Alejandre Ot R79.89 OTHER SPECIFIED ABNORMAL FINDINGS OF BLO 05/09/2019 DAHLIA RUDOLPH, RITIKA Weller Ot J84. 9 INTERSTITIAL PULMONARY DISEASE, UNSPECIF 05/09/2019 DAHLIA RUDOLPH, RITIKA Weller Ot R09. 02 HYPOXEMIA 05/09/2019 JUVENAL MARION Ot M79.672 PAIN IN LEFT FOOT 05/09/2019 KAREN BOLDEN APRN Ot M33.20 POLYMYOSITIS, ORGAN INVOLVEMENT UNSPECIF 05/09/2019 DAHLIA RUDOLPH, RITIKA Weller Ot J84. 9 INTERSTITIAL PULMONARY DISEASE, UNSPECIF 05/09/2019 ALLAN RUDOLPH, LEBRON Triana Ot Z51.81 ENCOUNTER FOR THERAPEUTIC DRUG LEVEL MON 05/09/2019 ERICK RUDOLPH, PIM Ot M25.5 61 PAIN IN RIGHT KNEE 05/09/2019 ERICK RUDOLPH, PIM Ot M33.2 1 POLYMYOSITIS WITH RESPIRATORY INVOLVEMEN 05/09/2019 DAHLIA RUDOLPH, RITIKA Weller Ot J84. 9 INTERSTITIAL PULMONARY DISEASE, UNSPECIF 05/09/2019 DAHLIA RUDOLPH, RITIKA Weller Ot J84. 9 INTERSTITIAL PULMONARY DISEASE, UNSPECIF 05/09/2019 DAHLIA RUDOLPH, RITIKA Weller Ot R91. 8 OTHER NONSPECIFIC ABNORMAL FINDING OF YAW 05/09/2019 CARLOS RUDOLPH, MORGAN Alejandre Ot Z51.81 ENCOUNTER FOR THERAPEUTIC DRUG LEVEL MON 05/09/2019 CARLOS RUDOLPH, MORGAN Alejandre Ot Z79.899 OTHER INTERMEDIATE (CURRENT) DRUG THERAPY 08/06/2019 DAHLIA RUDOLPH, RITIKA Weller Ot J84. 9 INTERSTITIAL PULMONARY DISEASE, UNSPECIF 08/06/2019 ALLAN RUDOLPH, LEBRON B Ot Z51.81 ENCOUNTER FOR THERAPEUTIC DRUG LEVEL MON 08/06/2019 ERICK RUDOLPH, PIM Ot M25.5 61 PAIN IN RIGHT KNEE 08/06/2019 ERICK RUDOLPH, PIM Ot M33.2 1 POLYMYOSITIS WITH RESPIRATORY INVOLVEMEN 08/06/2019 DAHLIA RUDOLPH, RITIKA Weller Ot J84. 9 INTERSTITIAL PULMONARY DISEASE, UNSPECIF 08/06/2019 DAHLIA RUDOLPH, RITIKA Weller Ot J84. 9 INTERSTITIAL PULMONARY DISEASE, UNSPECIF 08/06/2019 DAHLIA RUDOLPH, RITIKA Weller Ot R91. 8 OTHER NONSPECIFIC ABNORMAL FINDING OF YAW 08/06/2019 MORGAN GONZALEZ MD Ot Z51.81 ENCOUNTER FOR THERAPEUTIC DRUG LEVEL MON 08/06/2019 MORGAN GONZALEZ MD Ot Z79.899 OTHER INTERMEDIATE (CURRENT) DRUG THERAPY 08/06/2019 DAHLIA RUDOLPH, RITIKA Weller Ot J84. 9 INTERSTITIAL PULMONARY DISEASE, UNSPECIF 08/06/2019 ALLAN RUDOLPH, LEBRON B Ot Z51.81 ENCOUNTER FOR THERAPEUTIC DRUG LEVEL MON 08/06/2019 ERICK RUDOLPH, PIM Ot M25.5 61 PAIN IN RIGHT KNEE 08/06/2019 ERICK RUDOLPH, PIM Ot M33.2 1 POLYMYOSITIS WITH RESPIRATORY INVOLVEMEN 08/06/2019 RITIKA VILLAGOMEZ MD Ot J84. 9 INTERSTITIAL PULMONARY DISEASE, UNSPECIF 08/06/2019 DAHLIA RUDOLPH, RITIKA Weller Ot J84. 9 INTERSTITIAL PULMONARY DISEASE, UNSPECIF 08/06/2019 DAHLIA RUDOLPH, RITIKA Weller Ot R91. 8 OTHER NONSPECIFIC ABNORMAL FINDING OF YAW 08/06/2019 MORGAN GONZALEZ MD Ot Z51.81 ENCOUNTER FOR THERAPEUTIC DRUG LEVEL MON 08/06/2019 MORGAN GONZALEZ MD Ot Z79.899 OTHER INTERMEDIATE (CURRENT) DRUG THERAPY Procedures Code Description Performed By Per formed On [id number] DR LOCKHART OF RIGHT MIDDLE LOBE BRONCHUS, 07/03/2015 [id number] IN SERTION OF ENDOTRACHEAL AIRWAY INTO TR 07/05/2015 [id number] RE SPIRATORY VENTILATION, 24- 96 CONSECUTI 07/05/2015 Results Test Result Range Complete blood count (CBC) with automate d white blood cell (WBC) differential - 04/29/16 09:04 Blood leukocytes automated count (number/volume) 9.1 10*3/uL 4.3-11.0 Blood erythrocytes automated count (number/volume) 5.00 10*6/uL 4.35-5.85 Venous blood hemoglobin measurement (mass/volume) 13.9 g/dL 11.5-16.0 Blood hematocrit (volume fraction) 43 % 35-52 Automated erythrocyte mean corpuscular volume 86 [ foz_us] 80-99 Automated erythrocyte mean corpuscular h emoglobin (mass per erythrocyte) 28 pg 25-34 Automated erythrocyte mean corpuscular h emoglobin concentration measurement (mass/volume) 32 g/dL 32-36 Automated erythrocyte distribution width ratio 14. 0 % 10.0- 14.5 Automated blood platelet count (count/volume) 317 10*3/uL 130-400 Automated blood platelet mean volume measurement 10.1 [foz_us] 7.4-10.4 Automated blood neutrophils/100 leukocytes 61 % 42-75 Automated blood lymphocytes/100 leukocytes 22 % 12-44 Blood monocytes/100 leukocytes 15 % 0-12 Automated blood eosinophils/100 leukocytes 1 % 0-10 Automated blood basophils/100 leukocytes 1 % 0-10 Blood neutrophils automated count (number/volume) 5.6 10*3 1.8-7.8 Blood lymphocytes automated count (number/volume) 2.0 10*3 1.0-4.0 Blood monocytes automated count (number/volume) 1. 4 10*3 0.0-1.0 Automated eosinophil count 0.1 10*3/uL 0 .0-0.3 Automated blood basophil count (count/volume) 0.1 10*3/uL 0.0-0.1 Whole blood basic metabolic panel - 09/09 09:04 Serum or plasma sodium measurement (moles/volume) 144 mmol/L 135-145 Serum or plasma potassium measurement (moles/volume) 3.4 mmol/L 3.6-5.0 Serum or plasma chloride measurement (moles/volume) 109 mmol/L 98-107 Carbon dioxide 25 mmol/L 21-32 Serum or plasma anion gap determination (moles/volume) 10 mmol/L 5-14 Serum or plasma urea nitrogen measurement (mass/volume ) 17 mg/dL 7-18 Serum or plasma creatinine measurement (mass/volume) 1.32 mg/dL 0.60-1.30 Serum or plasma urea nitrogen/creatinine mass ratio 13 NRG Serum or plasma creatinine measurement w ith calculation of estimated glomerular filtration rate 41 NRG Serum or plasma glucose measurement (mass/volume) 97 mg/dL 70-105 Serum or plasma calcium measurement (mass/volume) 9.4 mg/dL 8.5-10.1 Serum or plasma creatine kinase measurem ent (enzymatic activity/volume) - 04/29/16 09:04 Serum or plasma creatine kinase measurem ent (enzymatic activity/volume) 45 U/L 29-168 Serum or plasma C reactive protein measu rement (mass/volume) - 04/29/16 09:04 Serum or plasma C reactive protein measurement (mass/v olume) 0.28 mg/dL 0.00-0.50 Erythrocyte sedimentation rate by shimon gren method - 04/29/16 09:04 Erythrocyte sedimentation rate by westergren method 6 mm 0- 30 Serum aldolase measurement - 04/29/16 09 :04 Serum aldolase measurement 5.3 U/L 1.5 -8.1 Complete blood count (CBC) with automate d white blood cell (WBC) differential - 04/04/17 15:53 Blood leukocytes automated count (number/volume) 6.4 10*3/uL 4.3-11.0 Blood erythrocytes automated count (number/volume) 4.64 10*6/uL 4.35-5.85 Venous blood hemoglobin measurement (mass/volume) 12.9 g/dL 11.5-16.0 Blood hematocrit (volume fraction) 40 % 35-52 Automated erythrocyte mean corpuscular volume 87 [ foz_us] 80-99 Automated erythrocyte mean corpuscular h emoglobin (mass per erythrocyte) 28 pg 25-34 Automated erythrocyte mean corpuscular h emoglobin concentration measurement (mass/volume) 32 g/dL 32-36 Automated erythrocyte distribution width ratio 13. 3 % 10.0- 14.5 Automated blood platelet count (count/volume) 321 10*3/uL 130-400 Automated blood platelet mean volume measurement 10.1 [foz_us] 7.4-10.4 Automated blood neutrophils/100 leukocytes 50 % 42-75 Automated blood lymphocytes/100 leukocytes 32 % 12-44 Blood monocytes/100 leukocytes 16 % 0-12 Automated blood eosinophils/100 leukocytes 1 % 0-10 Automated blood basophils/100 leukocytes 1 % 0-10 Blood neutrophils automated count (number/volume) 3.2 10*3 1.8-7.8 Blood lymphocytes automated count (number/volume) 2.0 10*3 1.0-4.0 Blood monocytes automated count (number/volume) 1. 0 10*3 0.0-1.0 Automated eosinophil count 0.1 10*3/uL 0 .0-0.3 Automated blood basophil count (count/volume) 0.0 10*3/uL 0.0-0.1 Comprehensive metabolic panel - 04/21/17 15:16 Serum or plasma sodium measurement (moles/volume) 142 mmol/L 135-145 Serum or plasma potassium measurement (moles/volume) 3.7 mmol/L 3.6-5.0 Serum or plasma chloride measurement (moles/volume) 106 mmol/L 98-107 Carbon dioxide 27 mmol/L 21-32 Serum or plasma anion gap determination (moles/volume) 9 mmol/L 5-14 Serum or plasma urea nitrogen measurement (mass/volume ) 17 mg/dL 7-18 Serum or plasma creatinine measurement (mass/volume) 1.37 mg/dL 0.60-1.30 Serum or plasma urea nitrogen/creatinine mass ratio 12 NRG Serum or plasma creatinine measurement w ith calculation of estimated glomerular filtration rate 39 NRG Serum or plasma glucose measurement (mass/volume) 106 mg/dL 70-105 Serum or plasma calcium measurement (mass/volume) 10.1 mg/dL 8.5-10.1 Serum or plasma total bilirubin measurement (mass/volu me) 0.3 mg/dL 0.1-1.0 Serum or plasma alkaline phosphatase penny surement (enzymatic activity/volume) 93 U/L 40-136 Serum or plasma aspartate aminotransfera se measurement (enzymatic activity/volume) 27 U/L 5-34 Serum or plasma alanine aminotransferase measurement (enzymatic activity/volume) 21 U/L 0-55 Serum or plasma protein measurement (mass/volume) 6.9 g/dL 6.4-8.2 Serum or plasma albumin measurement (mass/volume) 4.1 g/dL 3.2-4.5 Serum or plasma creatine kinase measurem ent (enzymatic activity/volume) - 04/21/17 15:16 Serum or plasma creatine kinase measurem ent (enzymatic activity/volume) 62 U/L 29-168 Serum or plasma C reactive protein measu rement (mass/volume) - 04/21/17 15:16 Serum or plasma C reactive protein measurement (mass/v olume) 0.47 mg/dL 0.00-0.50 Erythrocyte sedimentation rate by shimon gren method - 04/21/17 15:16 Erythrocyte sedimentation rate by westergren method 13 mm 0- 30 Serum aldolase measurement - 04/21/17 15 :16 Serum aldolase measurement 4.3 U/L 1.5 -8.1 Serum or plasma IgG measurement (mass/vo lume) - 04/21/17 15:16 Immunoglobulin panel (IgG, IgM, IgA) serum 607 % [id number] Complete blood count (CBC) with automate d white blood cell (WBC) differential - 09/16/17 12:29 Blood leukocytes automated count (number/volume) 8.2 10*3/uL 4.3-11.0 Blood erythrocytes automated count (number/volume) 5.39 10*6/uL 4.35-5.85 Venous blood hemoglobin measurement (mass/volume) 15.2 g/dL 11.5-16.0 Blood hematocrit (volume fraction) 46 % 35-52 Automated erythrocyte mean corpuscular volume 86 [ foz_us] 80-99 Automated erythrocyte mean corpuscular h emoglobin (mass per erythrocyte) 28 pg 25-34 Automated erythrocyte mean corpuscular h emoglobin concentration measurement (mass/volume) 33 g/dL 32-36 Automated erythrocyte distribution width ratio 14. 3 % 10.0- 14.5 Automated blood platelet count (count/volume) 287 10*3/uL 130-400 Automated blood platelet mean volume measurement 9.7 [foz_us] 7.4-10.4 Automated blood neutrophils/100 leukocytes 63 % 42-75 Automated blood lymphocytes/100 leukocytes 20 % 12-44 Blood monocytes/100 leukocytes 16 % 0-12 Automated blood eosinophils/100 leukocytes 1 % 0-10 Automated blood basophils/100 leukocytes 0 % 0-10 Blood neutrophils automated count (number/volume) 5.1 10*3 1.8-7.8 Blood lymphocytes automated count (number/volume) 1.6 10*3 1.0-4.0 Blood monocytes automated count (number/volume) 1. 3 10*3 0.0-1.0 Automated eosinophil count 0.1 10*3/uL 0 .0-0.3 Automated blood basophil count (count/volume) 0.0 10*3/uL 0.0-0.1 Complete blood count (CBC) with automate d white blood cell (WBC) differential - 09/30/18 10:00 Blood leukocytes automated count (number/volume) 18.7 10*3/uL 4.3-11.0 Blood erythrocytes automated count (number/volume) 5.62 10*6/uL 4.35-5.85 Venous blood hemoglobin measurement (mass/volume) 15.5 g/dL 11.5-16.0 Blood hematocrit (volume fraction) 47 % 35-52 Automated erythrocyte mean corpuscular volume 84 [ foz_us] 80-99 Automated erythrocyte mean corpuscular h emoglobin (mass per erythrocyte) 28 pg 25-34 Automated erythrocyte mean corpuscular h emoglobin concentration measurement (mass/volume) 33 g/dL 32-36 Automated erythrocyte distribution width ratio 14. 9 % 10.0- 14.5 Automated blood platelet count (count/volume) 402 10*3/uL 130-400 Automated blood platelet mean volume measurement 10.0 [foz_us] 7.4-10.4 Automated blood neutrophils/100 leukocytes 78 % 42-75 Automated blood lymphocytes/100 leukocytes 10 % 12-44 Blood monocytes/100 leukocytes 12 % 0-12 Automated blood eosinophils/100 leukocytes 0 % 0-10 Automated blood basophils/100 leukocytes 0 % 0-10 Blood neutrophils automated count (number/volume) 14.6 10*3 1.8-7.8 Blood lymphocytes automated count (number/volume) 1.9 10*3 1.0-4.0 Blood monocytes automated count (number/volume) 2. 2 10*3 0.0-1.0 Automated eosinophil count 0.0 10*3/uL 0 .0-0.3 Automated blood basophil count (count/volume) 0.0 10*3/uL 0.0-0.1 Comprehensive metabolic panel - 09/30/18 10:00 Serum or plasma sodium measurement (moles/volume) 139 mmol/L 135-145 Serum or plasma potassium measurement (moles/volume) 3.6 mmol/L 3.6-5.0 Serum or plasma chloride measurement (moles/volume) 105 mmol/L 98-107 Carbon dioxide 21 mmol/L 21-32 Serum or plasma anion gap determination (moles/volume) 13 mmol/L 5-14 Serum or plasma urea nitrogen measurement (mass/volume ) 25 mg/dL 7-18 Serum or plasma creatinine measurement (mass/volume) 2.50 mg/dL 0.60-1.30 Serum or plasma urea nitrogen/creatinine mass ratio 10 NRG Serum or plasma creatinine measurement w ith calculation of estimated glomerular filtration rate 20 NRG Serum or plasma glucose measurement (mass/volume) 144 mg/dL 70-105 Serum or plasma calcium measurement (mass/volume) 9.8 mg/dL 8.5-10.1 Serum or plasma total bilirubin measurement (mass/volu me) 0.4 mg/dL 0.1-1.0 Serum or plasma alkaline phosphatase penny surement (enzymatic activity/volume) 99 U/L 40-136 Serum or plasma aspartate aminotransfera se measurement (enzymatic activity/volume) 22 U/L 5-34 Serum or plasma alanine aminotransferase measurement (enzymatic activity/volume) 13 U/L 0-55 Serum or plasma protein measurement (mass/volume) 6.6 g/dL 6.4-8.2 Serum or plasma albumin measurement (mass/volume) 3.8 g/dL 3.2-4.5 CALCIUM CORRECTED 10.0 mg/dL 8.5-10.1 Serum or plasma creatine kinase measurem ent (enzymatic activity/volume) - 09/30/18 10:00 Serum or plasma creatine kinase measurem ent (enzymatic activity/volume) 164 U/L 29-168 Myoglobin, serum - 09/30/18 10:00 Myoglobin, serum 432.8 ng/mL 10.0-92.0 Serum or plasma C reactive protein measu rement (mass/volume) - 09/30/18 10:00 Serum or plasma C reactive protein measurement (mass/v olume) 2.14 mg/dL 0.00-0.50 Blood manual differential performed dete ction - 09/30/18 10:00 Blood monocytes/100 leukocytes 9 % NRG Manual blood segmented neutrophils/100 leukocytes 87 % NRG Blood band neutrophils/100 leukocytes 0 % NRG Manual blood lymphocytes/100 leukocytes 4 % NRG Manual eosinophils/100 leukocytes in nose 0 % NRG Manual blood basophils/100 leukocytes 0 % NRG Blood erythrocyte morphology finding identification NORMAL NRG Erythrocyte sedimentation rate by shimon gren method - 09/30/18 10:00 Erythrocyte sedimentation rate by westergren method 1 mm 0- 30 Influenza virus A and B antigen detectio n - 09/30/18 10:38 FLU RESULT NEGATIVE FOR INFLUENZA A AND B ANTIGENS BY IA NRG Blood lactic acid measurement (moles/vol ume) - 09/30/18 11:42 Blood lactic acid measurement (moles/volume) 2.63 mmol/L 0.50-2.00 Bacterial blood culture - 09/30/18 11:42 Bacterial blood culture NG NRG Bacterial blood culture - 09/30/18 12:08 Bacterial blood culture NG NRG Serum or plasma lactate measurement (mol es/volume) - 09/30/18 13:58 Serum or plasma lactate measurement (moles/volume) 1.43 mmol/L 0.50-2.00 Complete urinalysis with reflex to cultu re - 09/30/18 15:45 Urine color determination YELLOW NRG Urine clarity determination SLIGHTLY CLOUDY NRG Urine pH measurement by test strip 5 5-9 Specific gravity of urine by test strip 1.010 1.016-1.022 Urine protein assay by test strip, semi-quantitative 1+ NEGATIVE Urine glucose detection by automated test strip NE GATIVE NEGATIVE Erythrocytes detection in urine sediment by light micr oscopy NEGATIVE NEGATIVE Urine ketones detection by automated test strip NE GATIVE NEGATIVE Urine nitrite detection by test strip NEGATIVE NEGATIVE Urine total bilirubin detection by test strip NEGA TIVE NEGATIVE Urine urobilinogen measurement by automated test strip (mass/volume) NORMAL NORMAL Urine leukocyte esterase detection by dipstick 3+ NEGATIVE Automated urine sediment erythrocyte cou nt by microscopy (number/high power field) NONE NRG Automated urine sediment leukocyte count by microscopy (number/high power field) [HPF] NRG Bacteria detection in urine sediment by light microsco py NEGATIVE NRG Squamous epithelial cells detection in u rine sediment by light microscopy RARE NRG Crystals detection in urine sediment by light microsco py NONE NRG Casts detection in urine sediment by light microscopy NONE NRG Mucus detection in urine sediment by light microscopy NEGATIVE NRG Complete urinalysis with reflex to culture YES NRG Bacterial urine culture - 09/30/18 15:45 Bacterial urine culture NG NRG Complete blood count (CBC) with automate d white blood cell (WBC) differential - 10/01/18 05:20 Blood leukocytes automated count (number/volume) 11.3 10*3/uL 4.3-11.0 Blood erythrocytes automated count (number/volume) 4.01 10*6/uL 4.35-5.85 Venous blood hemoglobin measurement (mass/volume) 11.1 g/dL 11.5-16.0 Blood hematocrit (volume fraction) 35 % 35-52 Automated erythrocyte mean corpuscular volume 86 [ foz_us] 80-99 Automated erythrocyte mean corpuscular h emoglobin (mass per erythrocyte) 28 pg 25-34 Automated erythrocyte mean corpuscular h emoglobin concentration measurement (mass/volume) 32 g/dL 32-36 Automated erythrocyte distribution width ratio 14. 8 % 10.0- 14.5 Automated blood platelet count (count/volume) 287 10*3/uL 130-400 Automated blood platelet mean volume measurement 9.7 [foz_us] 7.4-10.4 Automated blood neutrophils/100 leukocytes 91 % 42-75 Automated blood lymphocytes/100 leukocytes 6 % 12-44 Blood monocytes/100 leukocytes 4 % 0-12 Automated blood eosinophils/100 leukocytes 0 % 0-10 Automated blood basophils/100 leukocytes 0 % 0-10 Blood neutrophils automated count (number/volume) 10.2 10*3 1.8-7.8 Blood lymphocytes automated count (number/volume) 0.6 10*3 1.0-4.0 Blood monocytes automated count (number/volume) 0. 4 10*3 0.0-1.0 Automated eosinophil count 0.0 10*3/uL 0 .0-0.3 Automated blood basophil count (count/volume) 0.0 10*3/uL 0.0-0.1 Comprehensive metabolic panel - 10/01/18 05:20 Serum or plasma sodium measurement (moles/volume) 142 mmol/L 135-145 Serum or plasma potassium measurement (moles/volume) 3.6 mmol/L 3.6-5.0 Serum or plasma chloride measurement (moles/volume) 118 mmol/L 98-107 Carbon dioxide 15 mmol/L 21-32 Serum or plasma anion gap determination (moles/volume) 9 mmol/L 5-14 Serum or plasma urea nitrogen measurement (mass/volume ) 28 mg/dL 7-18 Serum or plasma creatinine measurement (mass/volume) 2.11 mg/dL 0.60-1.30 Serum or plasma urea nitrogen/creatinine mass ratio 13 NRG Serum or plasma creatinine measurement w ith calculation of estimated glomerular filtration rate 24 NRG Serum or plasma glucose measurement (mass/volume) 244 mg/dL 70-105 Serum or plasma calcium measurement (mass/volume) 8.6 mg/dL 8.5-10.1 Serum or plasma total bilirubin measurement (mass/volu me) 0.2 mg/dL 0.1-1.0 Serum or plasma alkaline phosphatase penny surement (enzymatic activity/volume) 70 U/L 40-136 Serum or plasma aspartate aminotransfera se measurement (enzymatic activity/volume) 14 U/L 5-34 Serum or plasma alanine aminotransferase measurement (enzymatic activity/volume) 9 U/L 0-55 Serum or plasma protein measurement (mass/volume) 5.2 g/dL 6.4-8.2 Serum or plasma albumin measurement (mass/volume) 3.0 g/dL 3.2-4.5 CALCIUM CORRECTED 9.4 mg/dL 8.5-10.1 Serum or plasma creatine kinase measurem ent (enzymatic activity/volume) - 10/01/18 05:20 Serum or plasma creatine kinase measurem ent (enzymatic activity/volume) 73 U/L 29-168 Myoglobin, serum - 10/01/18 05:20 Myoglobin, serum 211.6 ng/mL 10.0-92.0 Hemoglobin A1c - 10/01/18 05:20 Blood hemoglobin A1C measurement (mass/volume) 6.1 % 4.0-5.6 MEAN BLOOD GLUCOSE 128 % <=126 Capillary blood glucose measurement by g lucometer (mass/volume) - 10/01/18 11:53 Capillary blood glucose measurement by glucometer (mas s/volume) 177 mg/dL 70-110 Capillary blood glucose measurement by g lucometer (mass/volume) - 10/01/18 16:03 Capillary blood glucose measurement by glucometer (mas s/volume) 146 mg/dL 70-110 Capillary blood glucose measurement by g lucometer (mass/volume) - 10/01/18 21:00 Capillary blood glucose measurement by glucometer (mas s/volume) 174 mg/dL 70-110 Capillary blood glucose measurement by g lucometer (mass/volume) - 10/02/18 05:31 Capillary blood glucose measurement by glucometer (mas s/volume) 125 mg/dL 70-110 Capillary blood glucose measurement by g lucometer (mass/volume) - 10/02/18 11:17 Capillary blood glucose measurement by glucometer (mas s/volume) 148 mg/dL 70-110 Capillary blood glucose measurement by g lucometer (mass/volume) - 10/02/18 16:10 Capillary blood glucose measurement by glucometer (mas s/volume) 141 mg/dL 70-110 Capillary blood glucose measurement by g lucometer (mass/volume) - 10/02/18 20:52 Capillary blood glucose measurement by glucometer (mas s/volume) 148 mg/dL 70-110 Complete blood count (CBC) with automate d white blood cell (WBC) differential - 10/03/18 02:20 Blood leukocytes automated count (number/volume) 18.5 10*3/uL 4.3-11.0 Blood erythrocytes automated count (number/volume) 3.63 10*6/uL 4.35-5.85 Venous blood hemoglobin measurement (mass/volume) 10.1 g/dL 11.5-16.0 Blood hematocrit (volume fraction) 32 % 35-52 Automated erythrocyte mean corpuscular volume 87 [ foz_us] 80-99 Automated erythrocyte mean corpuscular h emoglobin (mass per erythrocyte) 28 pg 25-34 Automated erythrocyte mean corpuscular h emoglobin concentration measurement (mass/volume) 32 g/dL 32-36 Automated erythrocyte distribution width ratio 15. 2 % 10.0- 14.5 Automated blood platelet count (count/volume) 246 10*3/uL 130-400 Automated blood platelet mean volume measurement 9.8 [foz_us] 7.4-10.4 Automated blood neutrophils/100 leukocytes 88 % 42-75 Automated blood lymphocytes/100 leukocytes 5 % 12-44 Blood monocytes/100 leukocytes 6 % 0-12 Automated blood eosinophils/100 leukocytes 0 % 0-10 Automated blood basophils/100 leukocytes 0 % 0-10 Blood neutrophils automated count (number/volume) 16.3 10*3 1.8-7.8 Blood lymphocytes automated count (number/volume) 1.0 10*3 1.0-4.0 Blood monocytes automated count (number/volume) 1. 2 10*3 0.0-1.0 Automated eosinophil count 0.0 10*3/uL 0 .0-0.3 Automated blood basophil count (count/volume) 0.0 10*3/uL 0.0-0.1 Whole blood basic metabolic panel - 03/15 02:20 Serum or plasma sodium measurement (moles/volume) 140 mmol/L 135-145 Serum or plasma potassium measurement (moles/volume) 3.7 mmol/L 3.6-5.0 Serum or plasma chloride measurement (moles/volume) 114 mmol/L 98-107 Carbon dioxide 18 mmol/L 21-32 Serum or plasma anion gap determination (moles/volume) 8 mmol/L 5-14 Serum or plasma urea nitrogen measurement (mass/volume ) 30 mg/dL 7-18 Serum or plasma creatinine measurement (mass/volume) 1.80 mg/dL 0.60-1.30 Serum or plasma urea nitrogen/creatinine mass ratio 17 NRG Serum or plasma creatinine measurement w ith calculation of estimated glomerular filtration rate 29 NRG Serum or plasma glucose measurement (mass/volume) 123 mg/dL 70-105 Serum or plasma calcium measurement (mass/volume) 8.6 mg/dL 8.5-10.1 Serum or plasma phosphate measurement (m ass/volume) - 10/03/18 02:20 Serum or plasma phosphate measurement (mass/volume) 3.9 mg/dL 2.3-4.7 Magnesium - 10/03/18 02:20 Magnesium 1.7 mg/dL 1.8-2.4 Arterial blood gas measurement - 9 07:10 Blood pCO2 34 mm[Hg] 35-45 Blood pO2 72 mm[Hg] 79-93 Arterial blood bicarbonate measurement (moles/volume) 20 mmol/L 23-27 Arterial blood base excess by calculation -4.8 mmo l/L -2.5-2.5 Arterial blood oxygen saturation measurement 96 % 94-100 * Inhaled oxygen flow rate 2L NRG Arterial blood pH measurement with patient temperature correction 7.37 7.37-7.43 Arterial blood carbon dioxide, total measurement (mole s/volume) 20.7 mmol/L 21.0-31.0 Body site RT RAD NRG Assessment of wrist artery patency prior to arterial p uncture YES-POS NRG Setting of ventilation mode NO NR G Measurement of body temperature 97.6 NRG Capillary blood glucose measurement by g lucometer (mass/volume) - 10/03/18 11:35 Capillary blood glucose measurement by glucometer (mas s/volume) 140 mg/dL 70-110 Vancomycin trough - 10/03/18 15:03 Vancomycin trough 15.6 ug/mL 10.0-20.0 Capillary blood glucose measurement by g lucometer (mass/volume) - 10/03/18 16:33 Capillary blood glucose measurement by glucometer (mas s/volume) 187 mg/dL 70-110 Capillary blood glucose measurement by g lucometer (mass/volume) - 10/03/18 20:51 Capillary blood glucose measurement by glucometer (mas s/volume) 189 mg/dL 70-110 Complete blood count (CBC) with automate d white blood cell (WBC) differential - 10/04/18 03:25 Blood leukocytes automated count (number/volume) 14.7 10*3/uL 4.3-11.0 Blood erythrocytes automated count (number/volume) 3.76 10*6/uL 4.35-5.85 Venous blood hemoglobin measurement (mass/volume) 10.4 g/dL 11.5-16.0 Blood hematocrit (volume fraction) 33 % 35-52 Automated erythrocyte mean corpuscular volume 86 [ foz_us] 80-99 Automated erythrocyte mean corpuscular h emoglobin (mass per erythrocyte) 28 pg 25-34 Automated erythrocyte mean corpuscular h emoglobin concentration measurement (mass/volume) 32 g/dL 32-36 Automated erythrocyte distribution width ratio 15. 5 % 10.0- 14.5 Automated blood platelet count (count/volume) 253 10*3/uL 130-400 Automated blood platelet mean volume measurement 10.4 [foz_us] 7.4-10.4 Automated blood neutrophils/100 leukocytes 82 % 42-75 Automated blood lymphocytes/100 leukocytes 6 % 12-44 Blood monocytes/100 leukocytes 12 % 0-12 Automated blood eosinophils/100 leukocytes 0 % 0-10 Automated blood basophils/100 leukocytes 0 % 0-10 Blood neutrophils automated count (number/volume) 12.0 10*3 1.8-7.8 Blood lymphocytes automated count (number/volume) 0.9 10*3 1.0-4.0 Blood monocytes automated count (number/volume) 1. 8 10*3 0.0-1.0 Automated eosinophil count 0.0 10*3/uL 0 .0-0.3 Automated blood basophil count (count/volume) 0.0 10*3/uL 0.0-0.1 Whole blood basic metabolic panel - 09/25 03:25 Serum or plasma sodium measurement (moles/volume) 141 mmol/L 135-145 Serum or plasma potassium measurement (moles/volume) 3.6 mmol/L 3.6-5.0 Serum or plasma chloride measurement (moles/volume) 115 mmol/L 98-107 Carbon dioxide 19 mmol/L 21-32 Serum or plasma anion gap determination (moles/volume) 7 mmol/L 5-14 Serum or plasma urea nitrogen measurement (mass/volume ) 36 mg/dL 7-18 Serum or plasma creatinine measurement (mass/volume) 1.85 mg/dL 0.60-1.30 Serum or plasma urea nitrogen/creatinine mass ratio 19 NRG Serum or plasma creatinine measurement w ith calculation of estimated glomerular filtration rate 28 NRG Serum or plasma glucose measurement (mass/volume) 136 mg/dL 70-105 Serum or plasma calcium measurement (mass/volume) 8.2 mg/dL 8.5-10.1 Serum or plasma phosphate measurement (m ass/volume) - 10/04/18 03:25 Serum or plasma phosphate measurement (mass/volume) 3.7 mg/dL 2.3-4.7 Magnesium - 10/04/18 03:25 Magnesium 2.3 mg/dL 1.8-2.4 Complete blood count (CBC) with automate d white blood cell (WBC) differential - 08/06/19 08:45 Blood leukocytes automated count (number/volume) 9.9 10*3/uL 4.3-11.0 Blood erythrocytes automated count (number/volume) 4.41 10*6/uL 4.35-5.85 Venous blood hemoglobin measurement (mass/volume) 12.0 g/dL 11.5-16.0 Blood hematocrit (volume fraction) 36 % 35-52 Automated erythrocyte mean corpuscular volume 82 [ foz_us] 80-99 Automated erythrocyte mean corpuscular h emoglobin (mass per erythrocyte) 27 pg 25-34 Automated erythrocyte mean corpuscular h emoglobin concentration measurement (mass/volume) 33 g/dL 32-36 Automated erythrocyte distribution width ratio 14. 3 % 10.0- 14.5 Automated blood platelet count (count/volume) 273 10*3/uL 130-400 Automated blood platelet mean volume measurement 9.8 [fo_us] 7.4-10.4 Automated blood neutrophils/100 leukocytes 63 % 42-75 Automated blood lymphocytes/100 leukocytes 14 % 12-44 Blood monocytes/100 leukocytes 23 % 0-12 Automated blood eosinophils/100 leukocytes 0 % 0-10 Automated blood basophils/100 leukocytes 0 % 0-10 Blood neutrophils automated count (number/volume) 6.3 10*3 1.8-7.8 Blood lymphocytes automated count (number/volume) 1.4 10*3 1.0-4.0 Blood monocytes automated count (number/volume) 2. 2 10*3 0.0-1.0 Automated eosinophil count 0.0 10*3/uL 0 .0-0.3 Automated blood basophil count (count/volume) 0.0 10*3/uL 0.0-0.1 PT panel in platelet poor plasma by coag ulation assay - 08/06/19 08:45 Prothrombin time (PT) in platelet poor plasma by coagu lation assay 13.8 s 12.2-14.7 INR in platelet poor plasma or blood by coagulation as say 1.0 0.8-1.4 Activated partial thromboplastin time (a PTT) in platelet poor plasma bycoagulation assay - 08/06/19 08:45 Activated partial thromboplastin time (a PTT) in platelet poor plasma bycoagulation assay 34 s 24-35 Influenza virus A and B antigen detectio n - 08/06/19 08:45 FLU RESULT NEGATIVE FOR INFLUENZA A AND B ANTIGENS BY IA NRG Blood lactic acid measurement (moles/vol ume) - 08/06/19 08:45 Blood lactic acid measurement (moles/volume) 2.36 mmol/L 0.50-2.00 Comprehensive metabolic panel - 08/06/19 08:45 Serum or plasma sodium measurement (moles/volume) 139 mmol/L 135-145 Serum or plasma potassium measurement (moles/volume) 3.7 mmol/L 3.6-5.0 Serum or plasma chloride measurement (moles/volume) 108 mmol/L 98-107 Carbon dioxide 21 mmol/L 21-32 Serum or plasma anion gap determination (moles/volume) 10 mmol/L 5-14 Serum or plasma urea nitrogen measurement (mass/volume ) 13 mg/dL 7-18 Serum or plasma creatinine measurement (mass/volume) 1.76 mg/dL 0.60-1.30 Serum or plasma urea nitrogen/creatinine mass ratio 7 NRG Serum or plasma creatinine measurement w ith calculation of estimated glomerular filtration rate 29 NRG Serum or plasma glucose measurement (mass/volume) 134 mg/dL 70-105 Serum or plasma calcium measurement (mass/volume) 9.3 mg/dL 8.5-10.1 Serum or plasma total bilirubin measurement (mass/volu me) 0.3 mg/dL 0.1-1.0 Serum or plasma alkaline phosphatase penny surement (enzymatic activity/volume) 89 U/L 40-136 Serum or plasma aspartate aminotransfera se measurement (enzymatic activity/volume) 19 U/L 5-34 Serum or plasma alanine aminotransferase measurement (enzymatic activity/volume) 13 U/L 0-55 Serum or plasma protein measurement (mass/volume) 6.4 g/dL 6.4-8.2 Serum or plasma albumin measurement (mass/volume) 4.2 g/dL 3.2-4.5 CALCIUM CORRECTED 9.1 mg/dL 8.5-10.1 Serum or plasma troponin i.cardiac measu rement (mass/volume) - 08/06/19 08:45 Serum or plasma troponin i.cardiac measurement (mass/v olume) < ng/mL <0.028 Manual absolute plasma cell count - 07/28 08:45 Blood monocytes/100 leukocytes 19 % NRG Manual blood segmented neutrophils/100 leukocytes 66 % NRG Blood band neutrophils/100 leukocytes 2 % NRG Manual blood lymphocytes/100 leukocytes 11 % NRG Manual eosinophils/100 leukocytes in nose 1 % NRG Manual blood basophils/100 leukocytes 1 % NRG Blood erythrocyte morphology finding identification NORMAL NRG Serum or plasma lithium measurement (mol es/volume) - 08/06/19 08:45 BNP PT 153.8 pg/mL <100.0 Bacterial blood culture - 02/10/20 08:45 Bacterial blood culture NG NRG Bacterial blood culture - 08/06/19 09:05 Bacterial blood culture NG NRG Serum or plasma lactate measurement (mol es/volume) - 08/06/19 10:54 Serum or plasma lactate measurement (moles/volume) 1.98 mmol/L 0.50-2.00 Complete urinalysis with reflex to cultu re - 08/06/19 11:30 Urine color determination YELLOW NRG Urine clarity determination CLEAR NR G Urine pH measurement by test strip 7.0 5-9 Specific gravity of urine by test strip 1.010 1.016-1.022 Urine protein assay by test strip, semi-quantitative NEGATIVE NEGATIVE Urine glucose detection by automated test strip NE GATIVE NEGATIVE Erythrocytes detection in urine sediment by light micr oscopy NEGATIVE NEGATIVE Urine ketones detection by automated test strip NE GATIVE NEGATIVE Urine nitrite detection by test strip NEGATIVE NEGATIVE Urine total bilirubin detection by test strip NEGA TIVE NEGATIVE Urine urobilinogen measurement by automated test strip (mass/volume) 0.2 mg/dL < = 1.0 Urine leukocyte esterase detection by dipstick NEG ATIVE NEGATIVE Automated urine sediment erythrocyte cou nt by microscopy (number/high power field) NONE NRG Automated urine sediment leukocyte count by microscopy (number/high power field) RARE NRG Bacteria detection in urine sediment by light microsco py NEGATIVE NRG Squamous epithelial cells detection in u rine sediment by light microscopy 0-2 NRG Crystals detection in urine sediment by light microsco py NONE NRG Casts detection in urine sediment by light microscopy NONE NRG Mucus detection in urine sediment by light microscopy NEGATIVE NRG Complete urinalysis with reflex to culture NO NRG Bacterial urine culture - 08/06/19 11:30 Bacterial urine culture NG NRG Encounters ACCT No. Visit Date/Time Discharge Status Pt. Type Provider Facility Loc./Unit Complaint [id number] 05/31/2019 11:13:04 05/31/2019 23:59:5 9 CLS Outpatient [id number] 08/06/2019 08:14:00 020 11:57:00 DIS Emergency VLADISLAV ROBERT DO [facility] ER COUGH;CHILLS;FEVER [id number] 10/13/2018 14:15:00 019 23:59:59 CLS Preadmit KAREN BOLDEN APRN [facility] RT INTERSTITIAL LUNG DISEA SE [id number] 09/30/2018 12:28:00 019 10:12:00 DIS Inpatient MARISSA BRENNAN DO [facility] 4TH SEVERE SEPSIS,A CUTE ON CHRONIC RF,PNEUMONIA [id number] 09/13/2018 08:53:00 23:59:59 CLS Preadmit KAREN BOLDEN TROUBLE TRACER [facility] RAD PULM FIBROSIS [id number] 04/20/2018 14:32:00 23:59:59 CLS Preadmit RITIKA VILLAGOMEZ MD [facility] RT INTERSTITAL LUNG DISEAS E [id number] 12/16/2017 00:09:00 23:59:59 CLS Preadmit MORGAN GONZALEZ MD [facility] LAB Z51.81 [id number] 09/16/2017 11:37:00 018 00:01:00 DIS Outpatient MORGAN GONZALEZ MD [facility] LAB Z51.81 [id number] 09/16/2017 11:40:00 018 23:59:59 CLS Outpatient RITIKA VILLAGOMEZ MD [facility] RAD INTERSTITIAL LUNG DISEA SE [id number] 08/03/2017 14:59:00 018 23:59:59 CLS Outpatient RITIKA VILLAGOMEZ MD [facility] RT ILD [id number] 04/21/2017 14:54:00 23:59:59 CLS Outpatient ERICK RUDOLPH, PIM [facility] RAD M25.561,M33.21 [id number] 04/04/2017 15:46:00 017 23:59:59 CLS Outpatient LEBRON LEMUS MD [facility] LAB Z51.81 [id number] 11/01/2016 13:11:00 23:59:59 CLS Outpatient RITIKA VILLAGOMEZ MD [facility] RT ILD [id number] 04/29/2016 08:58:00 016 23:59:59 CLS Outpatient KAREN BOLDEN APRN [facility] LAB POLYMYOSITIS [id number] 03/11/2016 12:24:00 016 23:59:59 CLS Outpatient JUVENAL MARION BRAND ADVOCATE [facility] RAD L FOOT PAIN [id number] 01/13/2016 08:25:00 016 23:59:59 CLS Outpatient DAHLIA RUDOLPH, RITIKA Weller [facility] RT HYPOXEMIA,ILD,HCC [id number] 09/21/2015 05:38:00 09:58:00 DIS Emergency GRETCHEN POZO MD [facility] ER V/D [id number] 09/03/2015 08:50:00 23:59:59 CLS Outpatient HEYDI ABREU MD [facility] LAB CREATININE ELEVATION,I LD,P-ANCA MPO ANTIBODIES + [id number] 07/02/2015 21:18:00 11:55:00 DIS Inpatient OTTO RUDOLPH, ANALI Martinez [facility] 4TH SEPSIS,PNEUMONIA,RENAL INSUFFICIENCY [id number] 06/25/2015 12:39:00 23:59:59 CLS Outpatient HEYDI PEREZ DO [facility] RAD DYSPNEA,HYPOXIA, PNEUMO SHERLEY [id number] 06/25/2015 12:35:00 23:59:59 CLS Outpatient VLADISLAV GARCIAC [facility] RAD CKD STAGE III [id number] 05/23/2015 11:55:00 23:59:59 CLS Outpatient KAREN BOLDEN APRN [facility] RAD PNEUMONIA [id number] 05/16/2015 11:21:00 23:59:59 CLS Outpatient KAREN BOLDEN APRN [facility] RAD SOB [id number] 05/12/2015 13:13:00 23:59:59 CLS Outpatient KAREN BOLDEN APRN [facility] RAD SHORT OF BREATH [id number] 05/01/2015 09:49:00 23:59:59 CLS Outpatient JUVENAL MARION [facility] RAD SCREENING [id number] 11/02/2012 08:46:00 013 23:59:59 CLS Outpatient BUSHRA MCPHERSON MD [facility] RAD SCREENING [id number] 05/09/2019 09:29:00 Document Registration [id number] 05/09/2019 09:29:00 Document Registration [id number] 05/17/2012 00:00:00 Document Registration [id number] 02/16/2012 09:53:00 Document Registration [id number] 02/11/2012 10:54:00 Document Registration [id number] 09/06/2011 08:08:00 Document Registration [id number] 08/04/2010 13:27:00 Document Registration [id number] 07/27/2010 09:13:00 Document Registration [id number] 05/26/2009 08:09:00 Document Registration [id number] 08/29/2007 09:45:00 Document Registration
== END 2019-08-06 11:57 | disposition home or self-care (01) ==
LOC: EDUNIT# 08:13 → ER 08:14
DX: J40 Bronchitis, not specified as acute or chronic (principal); R09.89 Other specified symptoms and signs involving the circulatory and respiratory systems; I10 Essential (primary) hypertension; E78.00 Pure hypercholesterolemia, unspecified; F41.9 Anxiety disorder, unspecified; K21.9 Gastro-esophageal reflux disease without esophagitis; G62.9 Polyneuropathy, unspecified; E03.9 Hypothyroidism, unspecified
CPT/HCPCS: 36415; 71046; 80053; 81000; 83605; 83880; 84484; 85007; 85027; 85610; 85730; 87040; 87088; 87804; 94640; 96361; 96365; 96375

== ENCOUNTER → 2020-09-25 | Outpatient (CLI) | payer SELFPAY ==
[~2020-09-25] MED LIST changes: +ALBU2.5V4 IH; +AMLO-250 PO; -AMLO5TAB9 PO; +AZIT500T PO; +CEFD300C3 PO; -CIPR500T4 PO; +CIPR500T5 PO; +CLN.1T PO; -CLON0.1T PO; +GUAI1TBM19 PO; +METH4TAB PO; +NEBU1KIT3 MC; +RT-ALBUTEROL SULF 2.5 MG/3 ML PRE-MIX VIAL INH ONE
== END ==
LOC: RT 08:00
PROVIDERS: ATTEND Registered Nurse
DX: J84.9 Interstitial pulmonary disease, unspecified (principal)
CPT/HCPCS: 94060; 94726; 94729

== ENCOUNTER 2021-06-07 14:08 | Emergency (ER) | payer SELFPAY ==
[~2021-06-07] VITALS: Ht 154 cm; Wt 72.0 kg
[~2021-06-07 14:08] MED LIST changes: -RT-ALBUTEROL SULF 2.5 MG/3 ML PRE-MIX VIAL INH ONE
[2021-06-07] MEDS ORDERED: NS IV 1000 ML 1,000 ML IV SCH (14:45)
[2021-06-07] MEDS ORDERED: ACETAMINOPHEN 500 MG TAB (TYLENOL) PO ONE (14:45)
--- NOTE | 2021-06-07 14:50 | ED General ---
General Chief Complaint: COVID19 Suspect/Confirmed Stated Complaint: COVID POSITIVE/O2 AT 85%/FEVER/COUGH/BODY ACHE Nursing Triage Note: ARRIVED VIA AMB TO ROOM 09. TESTED POSITIVE FOR COVID TODAY WITH A RAPID TEST FROM HOME. STATES SHE FEELS SOA AND IS HAVING SOME DIARRHEA. STATES HER PULSE OX AT HOME WAS IN THE 80'S ON ROOM AIR. Source of Information: Patient Exam Limitations: No Limitations History of Present Illness Date Seen by Provider: Jun 07, 2021 Time Seen by Provider: 14:30 Initial Comments Patient is a 65-year-old female who presents to the emergency department today with a chief complaint of fevers, body aches, cough and a little shortness of breath. Patient states that she checked her home oxygen this morning and she was running 85 so she became concerned. She states that she did an at home Cov id test and it was positive this morning. She is formally vaccinated in August of this year but has not had a booster. Patient relates to me that she has a history of an autoimmune lung disease for which she receives infusions through every 6 months. She tells me she has quite extensive scarring in her lungs and it is frequently misdiagnosed as pneumonia. She tells me she has chronic diarrhea after having had a cholecystectomy. She denies sore throat, earache. No runny nose or congestion. She feels generally unwell. Her last dose of Tylenol was around 3 AM for subjective fever. She is running 1-1.4 here today. She is not tachycardic. She is quite hypertensive with a diastolic of 145. She states she has not taken any of her daily medications this morning. Shortly after my initial assessment I gave her her home medications of amlodipine 5 mg and metoprolol 50 mg. She denies any leg swelling or calf cramping. No urinary distress. She is not due for her next "infusion" until September. All other review of systems reviewed and negative except as stated Timing/Duration: 12-24 Hours Severity: Moderate Associated Systoms: Fever/Chills, Malaise, Shortness of Air, Weakness Allergies and Home Medications Allergies Coded Allergies: No Known Drug Allergies (Verified , 09/01/07) Patient Home Medication List Home Medication List Reviewed: Yes Albuterol Sulfate (Albuterol Sulfate) 2.5 Mg/3 Ml Vial.neb, 2.5 MG IH Q4H Prescribed by: VLADISLAV ROBERT on 08/06/191128 Amlodipine Besylate (Amlodipine Besylate) 5 Mg Tablet, 10 MG PO DAILY Prescribed by: ANALI MENJIVAR on 10/05/18901 Amoxicillin/Potassium Clav (Augmentin 875-125 Tablet) 1 Each Tablet, 1 EACH PO BID Prescribed by: ANALI MENJIVAR on 10/05/18901 Atorvastatin Calcium (Atorvastatin Calcium) 20 Mg Tablet, 20 MG PO DAILY, (Reported) Entered as Reported by: CARL FU on 10/02/18 112 Azithromycin (Zithromax) 500 Mg Tablet, 500 MG PO DAILY Prescribed by: VLADISLAV ROBERT on 08/06/19 112 Cefdinir (Cefdinir) 300 Mg Capsule, 300 MG PO BID Prescribed by: VLADISLAV ROBERT on 08/06/19 112 Gabapentin (Gabapentin) 300 Mg Capsule, 300 MG PO HS, (Reported) Entered as Reported by: BREANA GUTIERREZ on 09/30/18 1038 Gabapentin (Gabapentin) 100 Mg Capsule, 100 MG PO DAILY, (Reported) Entered as Reported by: BREANA GUTIREREZ on 09/30/18 1038 Guaifenesin/Dextromethorphan (Mucinex Dm ER 1,200-60 mg Tab) 1 Each Tbmp.12hr, 1 EACH PO BID Prescribed by: VLADISLAV ROBERT on 08/06/191128 Hydralazine HCl (Hydralazine HCl) 10 Mg Tablet, 10 MG PO Q6H Prescribed by: ANALI MENJIVAR on 10/05/18901 Ipratropium/Albuterol Sulfate (Iprat-Albut 0.5-3(2.5) mg/3 ml) 3 Ml Ampul.neb, 3 ML INH RTQ4HR PRN for SOA Prescribed by: ANALI MENJIVAR on 10/05/18 09 Lactobac Cmb #3/Fos/Pantethine (Probiotic & Acidophilus Cap) 1 Each Capsule, 1 EACH PO BID Prescribed by: ANALI MENJIVAR on 10/05/18901 Loratadine (Loratadine) 10 Mg Tablet, 10 MG PO DAILY, (Reported) Entered as Reported by: CARL FU on 10/02/18 112 Losartan Potassium (Losartan Potassium) 50 Mg Tablet, 50 MG PO DAILY Prescribed by: ANALI MENJIVAR on 10/05/18 09 Methylprednisolone (Medrol) 4 Mg Tab.ds.pk, 4 MG PO UD Prescribed by: VLADISLAV ROBERT on 08/06/19 112 Metoprolol Succinate (Metoprolol Succinate) 50 Mg Tab.er.24h, 75 MG PO BID Prescribed by: ANALI MENJIVAR on 10/05/18 09 Nebulizer (Compact Compressor Nebulizer) 1 Each Each, EACH MC, (DME) Prescribed by: VLADISLAV ROBERT on 08/06/19 1129 Potassium Chloride (Potassium Chloride) 10 Meq Tablet.er, 10 MEQ PO DAILY, (Reported) Entered as Reported by: DEREK FISHMAN on 07/02/15 1833 Prednisone (Prednisone) 20 Mg Tab, 20 MG PO DAILY@0700 Prescribed by: ANALI MENJIVAR on 10/05/18 09 Rituximab (Rituxan) 100 Mg/10 Ml Conc, IV UD, (Reported) Entered as Reported by: CARL FU on 10/02/18 1135 Ubidecarenone (Co Q-10) 200 Mg Capsule, 200 MG PO DAILY, (Reported) Entered as Reported by: CARL FU on 10/02/18 1121 Venlafaxine HCl (Effexor Xr) 150 Mg Cap.er.24h, 150 MG PO DAILY, (Reported) Entered as Reported by: BREANA GUTIERREZ on 09/30/18 1038 Review of Systems Review of Systems Constitutional: see HPI, fever, malaise, weakness EENTM: no symptoms reported Respiratory: cough, short of breath Cardiovascular: no symptoms reported Gastrointestinal: diarrhea Genitourinary: no symptoms reported : No Musculoskeletal: muscle cramps Skin: no symptoms reported Psychiatric/Neurological: No Symptoms Reported All Other Systems Reviewed Negative Unless Noted: Yes Past Qraskpb-Ezfvem-Slcijs Hx Patient Social History Tobacco Use?: No Substance use?: No Alcohol Use?: No Immunizations Up To Date Tetanus Booster (TDap): Unknown PED Vaccines UTD: Yes Second COVID19 Vaccination [place]: 09/14 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 BASELINE CREATININE 1.7 ON AVERAGE) Gastrointestinal: Yes Gastroesophageal Reflux Musculoskeletal: Yes (POLYMYOSITIS) Endocrine: Yes (OVERLAP SYNDROME) Hypothyroidsim HEENT: No Loss of Vision: Denies Hearing Impairment: Denies Cancer: No Psychosocial: Yes Anxiety Integumentary: No Blood Disorders: Yes (ANEMIA) Adverse Reaction/Blood Tranf: No Family Medical History No Pertinent Family Hx Physical Exam Vital Signs Vital Signs - First Documented 06/07/21 14:33 Pulse 73 Resp 18 B/P (MAP) 195/141 (159) Pulse Ox 99 O2 Delivery Room Air Capillary Refill : Less Than 3 Seconds Height, Weight, BMI Height: 5'1.00" Weight: 169lbs. 4.8oz. 76.254807xx; 30.00 BMI Method:Stated General Appearance: No Apparent Distress, WD/WN Eyes: Bilateral Eye Normal Inspection, Bilateral Eye PERRL, Bilateral Eye EOMI HEENT: Other (Very dry oral mucosa) Neck: Normal Inspection Respiratory: Lungs Clear, Normal Breath Sounds, No Accessory Muscle Use, No Respiratory Distress Cardiovascular: Regular Rate, Rhythm (70's), Systolic Murmur (Soft systolic murmur heard at the left and right upper sternal border), Other (Frequent PVCs auscultated) Gastrointestinal: Normal Bowel Sounds, Non Tender, Soft Extremity: Normal Inspection, Normal Range of Motion, Non Tender, No Calf Tenderness, No Pedal Edema Neurologic/Psychiatric: Alert, Oriented x3, No Motor/Sensory Deficits, Normal Mood/Affect Skin: Normal Color, Warm/Dry Focused Exam Lactate Level 06/07/21 14:43: Lactic Acid Level 1.84 Lactic Acid Level Laboratory Tests Test 06/07/21 14:43 Lactic Acid Level 1.84 MMOL/L (0.50-2.00) Progress/Results/Core Measures Suspected Sepsis SIRS Temperature: Pulse: 73 Respiratory Rate: 18 Laboratory Tests 06/07/21 14:43: White Blood Count 8.1 Blood Pressure 195 /141 Mean: 159 06/07/21 14:43: Lactic Acid Level 1.84 Laboratory Tests 06/07/21 14:43: Creatinine 1.40H, Platelet Count 228, Total Bilirubin 0.2 06/07/21 15:39: INR Comment 1.0 Results/Orders Lab Results Laboratory Tests Test 06/07/21 14:43 06/07/21 15:39 Range/Units White Blood Count 8.1 4.3-11.0 10^3/uL Red Blood Count 5.39 H 3.80-5.11 10^6/uL Hemoglobin 14.9 11.5-16.0 g/dL Hematocrit 47 35-52 % Mean Corpuscular Volume 88 80-99 fL Mean Corpuscular Hemoglobin 28 25-34 pg Mean Corpuscular Hemoglobin Concent 32 32-36 g/dL Red Cell Distribution Width 14.1 10.0-14.5 % Platelet Count 228 130-400 10^3/uL Mean Platelet Volume 10.5 9.0-12.2 fL Immature Granulocyte % (Auto) 0 % Neutrophils (%) (Auto) 46 42-75 % Lymphocytes (%) (Auto) 31 12-44 % Monocytes (%) (Auto) 23 H 0-12 % Eosinophils (%) (Auto) 0 0-10 % Basophils (%) (Auto) 0 0-10 % Neutrophils # (Auto) 3.8 1.8-7.8 X 10^3 Lymphocytes # (Auto) 2.5 1.0-4.0 X 10^3 Monocytes # (Auto) 1.8 H 0.0-1.0 X 10^3 Eosinophils # (Auto) 0.0 0.0-0.3 10^3/uL Basophils # (Auto) 0.0 0.0-0.1 10^3/uL Immature Granulocyte # (Auto) 0.0 0.0-0.1 10^3/uL Neutrophils % (Manual) 54 % Lymphocytes % (Manual) 28 % Monocytes % (Manual) 18 % Eosinophils % (Manual) 0 % Basophils % (Manual) 0 % Band Neutrophils 0 % Blood Morphology Comment NORMAL Sodium Level 141 135-145 MMOL/L Potassium Level 3.9 3.6-5.0 MMOL/L Chloride Level 106 98-107 MMOL/L Carbon Dioxide Level 22 21-32 MMOL/L Anion Gap 13 5-14 MMOL/L Blood Urea Nitrogen 14 7-18 MG/DL Creatinine 1.40 H 0.60-1.30 MG/DL Estimat Glomerular Filtration Rate 38 BUN/Creatinine Ratio 10 Glucose Level 87 70-105 MG/DL Lactic Acid Level 1.84 0.50-2.00 MMOL/L Calcium Level 9.3 8.5-10.1 MG/DL Corrected Calcium 9.2 8.5-10.1 MG/DL Total Bilirubin 0.2 0.1-1.0 MG/DL Aspartate Amino Transf (AST/SGOT) 32 5-34 U/L Alanine Aminotransferase (ALT/SGPT) 19 0-55 U/L Alkaline Phosphatase 91 40-136 U/L C-Reactive Protein High Sensitivity 0.67 H 0.00-0.50 MG/DL Total Protein 6.8 6.4-8.2 GM/DL Albumin 4.1 3.2-4.5 GM/DL Procalcitonin 0.05 <0.10 NG/ML Influenza Type A (RT-PCR) Not Detected Not Detecte Influenza Type B (RT-PCR) Not Detected Not Detecte SARS-CoV-2 RNA (RT-PCR) Detected H Not Detecte Prothrombin Time 13.8 12.2-14.7 SEC INR Comment 1.0 0.8-1.4 Activated Partial Thromboplast Time 31 24-35 SEC My Orders Orders - JULIANNE VASQUEZ MD Cbc With Automated Diff (06/07/21 14:44) Comprehensive Metabolic Panel (06/07/21 14:44) Blood Culture (06/07/21 14:44) Sputum Culture (06/07/21 14:44) Protime With Inr (06/07/21 14:44) Partial Thromboplastin Time (06/07/21 14:44) Chest 1 View, Ap/Pa Only (06/07/21 14:44) Ed Iv/Invasive Line Start (06/07/21 14:44) Ed Iv/Invasive Line Start (06/07/21 14:44) Vital Signs Adult Sepsis Patie Q15M (06/07/21 14:44) O2 (06/07/21 14:44) Remove Rings In Anticipation O (06/07/21 14:44) Lactic Acid Analyzer (06/07/21 14:44) Covid 19 Inhouse Test (06/07/21 14:44) Influenza A And B By Pcr (06/07/21 14:44) Procalcitonin (Pct) (06/07/21 14:44) Hs C Reactive Protein (06/07/21 14:44) Acetaminophen Tablet (Tylenol Tablet) (06/07/21 14:45) Ns Iv 1000 Ml (Sodium Chloride 0.9%) (06/07/21 14:45) Manual Differential (06/07/21 14:43) Medications Given in ED Current Medications Medications Dose Ordered Sig/Shannan Route Start Time Stop Time Status Last Admin Dose Admin Acetaminophen 1,000 mg ONCE ONCE PO 06/07/21 14:45 06/07/21 14:47 DC 06/07/21 14:53 1,000 MG Vital Signs/I&O 06/07/21 14:33 Pulse 73 Resp 18 B/P (MAP) 195/141 (159) Pulse Ox 99 O2 Delivery Room Air Capillary Refill : Less Than 3 Seconds Blood Pressure Mean: 159 Progress Note #1: Time: 16:50 Progress Note 65-year-old female who presents with a history of interstitial lung disease and Covid symptoms x1 day. Patient became concerned due to low oxygen sats at 85% at home this afternoon. She is not oxygen dependent. Symptoms started at around 1 AM last night. Evaluation today includes a physical exam, sepsis lab work included Covid and flu testing and chest x-ray. She is PCR Covid test positive. Flu negative. Labs are reviewed and are all within acceptable range. She does have chronic kidney disease that appears stable. No elevated white count, pro calcitonin at 0.05 -electrolytes are normal. She has maintained 97 to 99% room air saturations while in the department. No increased work of breathing. She is given a liter of normal saline. I have discussed with her the natural course and progression of Covid infection to include potential respiratory failure. As she is early in her course I told her to check her oxygen saturations at home regularly. If she drops below 90 or has any other emergent concerns she needs to come back to the emergency room. I also discussed with the patient monoclonal antibody therapy for Covid. We discussed that it is under emergency use authorization still through the FDA. We discussed risks and benefits and patient is eager to have the infusion. Will fill out the order form for her to get this done early this week. Progress Note #2: Time: 17:22 Progress Note Called back into the room as the patient was being discharged. She was complaining of a raw, scratchy feeling throat. She states that it feels very "sore". I reexamined her oropharynx and noted that she has what appears to be thrush on the hard palate at the posterior pharynx. Patient has quite a intense gag reflex so it was difficult to assess the tonsillar pillars. She did not have any thrush on the buccal mucosa. Nothing on the tongue. But quite a bit on the hard palate posteriorly. I initially thought on primary evaluation on admission to the ER that this was mucus as the patient was so very dehydrated on exam and had lots of mucus in the anterior portion of her oropharynx. I advised the patient that I will add nystatin to her medications. We will send this to [place]. Diagnostic Imaging Diagonstic Imaging: Xray Plain Films/CT/US/NM/MRI: chest Comments [facility], [place] NAME: ADDY SIMMONS [facility] REC#: [id number] PT STATUS: REG ER : 1955 PHYSICIAN: JULIANNE VASQUEZ MD ADMIT DATE: 06/07/21/ER Draft Date of Exam:06/07/21 CHEST 1 VIEW, AP/PA ONLY EXAMINATION: Chest 1 view. HISTORY: Cough and fever. COMPARISON: 10/04/2018. FINDINGS: The lungs are clear without edema or pneumonia. No pleural effusion or pneumothorax. Heart size is normal. IMPRESSION: Clear lungs. Dictated on workstation # [id number] Dict: 06/07/21 1514 Trans: 06/07/21 1516 [facility] [id number] Interpreted by: TWAANA DURÁN MD Electronically signed by: Departure Impression Primary Impression: COVID-19 Additional Impressions: Interstitial lung disease Oral thrush Disposition: 01 HOME, SELF-CARE Condition: Stable Departure-Patient Inst. Decision time for Depature: 16:58 Referrals: ANALI MENJIVAR MD (PCP/Family) Primary Care Physician Patient Instructions: COVID-19 Overview Add. Discharge Instructions: Continue your home medications as previously prescribed. Check your oxygen level at home regularly. If you develop any shortness of breath, oxygen saturations that are less than 90%, fever that does not resolve with Tylenol or any other emergent concerning symptoms please come back to the emergency room for reevaluation. I have filled out the order form for you to receive the monoclonal antibody infusion. The hospital will call you with an appointment time. If you do not hear from us tomorrow, please call up to the hospital for an appointment time. Please follow-up with your family doctor. You will need to quarantine for 10 days starting today for your Covid infection Scripts Nystatin (Nystatin) 100,000 Unit/1 Ml Oral.susp [id number] UNITS PO Q6H for 10 Days, #200 ML 1 teaspoon, swish and swallow 4 times a day for 10 days. Keep the medication in your mouth several minutes before swallowing Prov: JULIANNE VASQUEZ MD 06/07/21 Copy Copies To 1: ANALI MENJIVAR MD, KATHRYN M MD Jun 07, 2021 14:49
[2021-06-07 14:54] LABS: BASOPHILS % (AUTO) 0 % (0-10); EOSINOPHILS % (AUTO) 0 % (0-10); HEMATOCRIT 47 % (35-52); HEMOGLOBIN 14.9 g/dL (11.5-16.0); LYMPHOCYTES # (AUTO) 2.5 X 10^3 (1.0-4.0); LYMPHOCYTES % (AUTO) 31 % (12-44); MEAN CORPUSCULAR HEMOGLOBIN 28 pg (25-34); MEAN CORPUSCULAR HGB CONC 32 g/dL (32-36); MEAN CORPUSCULAR VOLUME 88 fL (80-99); MEAN PLATELET VOLUME 10.5 fL (9.0-12.2); MONOCYTES # (AUTO) 1.8 X 10^3 (0.0-1.0); MONOCYTES % (AUTO) 23 % (0-12); NEUTROPHILS # (AUTO) 3.8 X 10^3 (1.8-7.8); NEUTROPHILS % (AUTO) 46 % (42-75); PLATELET COUNT 228 10^3/uL (130-400); WHITE BLOOD COUNT 8.1 10^3/uL (4.3-11.0)
[2021-06-07 15:06] LABS: ALBUMIN 4.1 GM/DL (3.2-4.5)
[2021-06-07 15:07] LABS: POTASSIUM 3.9 MMOL/L (3.6-5.0)
[2021-06-07 15:08] LABS: CALCIUM 9.3 MG/DL (8.5-10.1)
[2021-06-07 15:09] LABS: TOTAL PROTEIN 6.8 GM/DL (6.4-8.2)
[2021-06-07 15:11] LABS: BILIRUBIN,TOTAL 0.2 MG/DL (0.1-1.0)
[2021-06-07 15:13] LABS: CREATININE SERUM 1.4 MG/DL (0.60-1.30)
--- NOTE | 2021-06-07 15:16 | Diagnostic Imaging Report ---
EXAMINATION: Chest 1 view. HISTORY: Cough and fever. COMPARISON: 10/04/2018. FINDINGS: The lungs are clear without edema or pneumonia. No pleural effusion or pneumothorax. Heart size is normal. IMPRESSION: Clear lungs. Dictated by: Dictated on workstation # [id number]
[2021-06-07 15:34] LABS: BAND NEUTROPHILS 0 %; BASOPHILS % (MANUAL) 0 %; EOSINOPHILS % (MANUAL) 0 %; LYMPHOCYTES % (MANUAL) 28 %; MONOCYTES % (MANUAL) 18 %; NEUTROPHILS % (MANUAL) 54 %; RBC MORPH NORMAL
[2021-06-07 15:58] LABS: PROTHROMBIN TIME PATIENT 13.8 SEC (12.2-14.7)
[2021-06-07 17:24] VITALS: BP 168/80
[2021-06-07] MEDS ORDERED: NYST1000 PO (17:28)
== END 2021-06-07 17:24 | disposition home or self-care (01) ==
LOC: EDUNIT# 14:08 → ER 14:12
DX: U07.1 COVID-19 (principal); B37.0 Candidal stomatitis; I10 Essential (primary) hypertension; E78.00 Pure hypercholesterolemia, unspecified; F41.9 Anxiety disorder, unspecified; Z79.899 Other long term (current) drug therapy
CPT/HCPCS: 36415; 71045; 80053; 83605; 84145; 85007; 85027; 85610; 85730; 86141; 87040; 87636; 96360

== ENCOUNTER 2021-06-11 09:16 | Outpatient (CLI) | payer SELFPAY ==
[~2021-06-11] VITALS: Ht 154.9 cm; Wt 72.6 kg
[~2021-06-11 09:16] MED LIST changes: +NYST1000 PO
[2021-06-11] MEDS ORDERED: EPINEPHrine INJECTION 1 MG/ML AMP IM PRN (09:30)
[2021-06-11] MEDS ORDERED: BAMLANIVIMAB 700 MG/ETESEVIMAB 1,400 MG IN NS IV ONE ×3 (09:30)
[2021-06-11] MEDS ORDERED: diphenhydrAMINE 50 MG/ML INJ (BENADRYL) IV PRN (09:30)
[2021-06-11] MEDS ORDERED: ACETAMINOPHEN 500 MG TAB (TYLENOL) PO PRN (09:30)
[2021-06-11] MEDS ORDERED: ONDANSETRON 4 MG/2 ML (SDV) Z0FRAN IV PRN (09:30)
[2021-06-11 09:33] VITALS: BP 142/82
[2021-06-11 10:50] VITALS: BP 148/79
== END 2021-06-11 10:56 | disposition home or self-care (01) ==
LOC: INFUSION 09:16
PROVIDERS: ATTEND Emergency Medicine
DX: U07.1 COVID-19 (principal)

== ENCOUNTER 2021-06-29 09:20 | Inpatient (IN) | payer SELFPAY ==
[~2021-06-29] VITALS: Ht 155 cm; Wt 70.8 kg
[2021-06-29] MEDS ORDERED: NS (IVPB) 250 ML IV ONE (09:45)
[2021-06-29 10:01] VITALS: BP 141/88
[2021-06-29 10:52] LABS: BASOPHILS % (AUTO) 0 % (0-10); EOSINOPHILS % (AUTO) 0 % (0-10); HEMATOCRIT 46 % (35-52); HEMOGLOBIN 14.7 g/dL (11.5-16.0); LYMPHOCYTES # (AUTO) 1.2 10^3/uL (1.0-4.0); LYMPHOCYTES % (AUTO) 23 % (12-44); MEAN CORPUSCULAR HEMOGLOBIN 27 pg (25-34); MEAN CORPUSCULAR HGB CONC 32 g/dL (32-36); MEAN CORPUSCULAR VOLUME 85 fL (80-99); MEAN PLATELET VOLUME 11.1 fL (9.0-12.2); MONOCYTES # (AUTO) 0.7 10^3/uL (0.0-1.0); MONOCYTES % (AUTO) 14 % (0-12); NEUTROPHILS # (AUTO) 3.3 10^3/uL (1.8-7.8); NEUTROPHILS % (AUTO) 63 % (42-75); PLATELET COUNT 262 10^3/uL (130-400); WHITE BLOOD COUNT 5.3 10^3/uL (4.3-11.0)
[2021-06-29] MEDS: NS IV 1000 ML 1,000 ML IV SCH ×2 (11:05→20:12)
[2021-06-29] MEDS: AZITHROMYCIN INJECTION 500 MG in NS (IVPB) 250 ML IV SCH ×2 (11:06→12:59)
[2021-06-29 11:10] LABS: ALBUMIN 3.8 GM/DL (3.2-4.5); BILIRUBIN,TOTAL 0.3 MG/DL (0.1-1.0); CALCIUM 9.3 MG/DL (8.5-10.1); CREATININE SERUM 1.42 MG/DL (0.60-1.30); POTASSIUM 3.5 MMOL/L (3.6-5.0); TOTAL PROTEIN 6.4 GM/DL (6.4-8.2)
--- NOTE | 2021-06-29 11:24 | Diagnostic Imaging Report ---
INDICATION: Pneumonia. TIME OF EXAM: 10:51 AM. COMPARISON: Correlation is made with the prior chest from 08/06/2019. FINDINGS: The heart size is normal. There are patchy infiltrates in the left upper lobe as well as bilateral mid and lower lung stoll, consistent with pneumonia. No effusion or pneumothorax is detected. IMPRESSION: Bilateral patchy infiltrates, consistent with pneumonia. Dictated by: Dictated on workstation # [id number]
[2021-06-29 11:52] VITALS: BP 139/91
[2021-06-29 15:55] VITALS: BP 139/91
[2021-06-29 16:06] VITALS: BP 149/82
--- NOTE | 2021-06-29 16:42 | History & Physical ---
History of Present Illness History of Present Illness Reason for visit/HPI PT IS A 65 Y/O FEMALE WHO IS KNOWN TO ME FROM CLINIC. SHE PRESENTED TO THE OFFICE TODAY WITH COMPLAINT OF EXTREME FATIGUE AND COUGH. PT WAS DIAGNOSED WITH COVID ON 06/07/2021, RECEIVED THE MONOCLONAL ANTIBODIES ON 06/11/2021. PT FELT BETTER INITIALLY, THEN SHE WENT BACK TO WORK AND FELT POORLY, STAYED AT HOME A FEW DAYS, AND TRIED TO GO BACK TO WORK AGAIN ONLY TO FEEL SO BAD THAT SHE STAYED AT HOME AND HAS BEEN MINIMALLY ACTIVE SINCE GOING HOME FROM WORK - SHE HAS BEEN LYING AROUND AT HOME AND NOT TAKING ANY OF HER MEDICATIONS FOR ABOUT 2 WEEKS. PER HER DTR'S REPORT, HER MOM HAS BEEN RUNNING A FEVER OFF AND ON SINCE 06/07/2021. SHE STARTED TO HAVE NAUSEA AND VOMITING ABOUT 2 - 3 DAYS AGO. Date of Admission Jun 29, 2021 at 09:20 Date Seen by a Provider: Jun 29, 2021 Time Seen by a Provider: 16:30 Attending Physician Anali Maya MD Admitting Physician Anali Maya MD Consult Allergies and Home Medications Allergies Coded Allergies: No Known Drug Allergies (Verified , 09/01/07) Patient Home Medication List Home Medication List Reviewed: Yes Albuterol Sulfate (Albuterol Sulfate) 2.5 Mg/3 Ml Vial.neb, 2.5 MG IH Q4H Prescribed by: VLADISLAV ROBERT on 08/06/19 112 Amlodipine Besylate (Amlodipine Besylate) 5 Mg Tablet, 10 MG PO DAILY Prescribed by: ANALI MAYA on 10/05/18 09 Amoxicillin/Potassium Clav (Augmentin 875-125 Tablet) 1 Each Tablet, 1 EACH PO BID Prescribed by: ANALI MAYA on 10/05/18 09 Atorvastatin Calcium (Atorvastatin Calcium) 20 Mg Tablet, 20 MG PO DAILY, (Reported) Entered as Reported by: CARL FU on 10/02/18 112 Azithromycin (Zithromax) 500 Mg Tablet, 500 MG PO DAILY Prescribed by: VLADISLAV ROBERT on 08/06/19 112 Cefdinir (Cefdinir) 300 Mg Capsule, 300 MG PO BID Prescribed by: VLADISLAV ROBERT on 08/06/19 112 Gabapentin (Gabapentin) 300 Mg Capsule, 300 MG PO HS, (Reported) Entered as Reported by: BREANA GUTIERREZ on 09/30/18 1038 Gabapentin (Gabapentin) 100 Mg Capsule, 100 MG PO DAILY, (Reported) Entered as Reported by: BREANA Powell MATT on 09/30/18 1038 Guaifenesin/Dextromethorphan (Mucinex Dm ER 1,200-60 mg Tab) 1 Each Tbmp.12hr, 1 EACH PO BID Prescribed by: VLADISLAV ROBERT on 08/06/19 1129 Hydralazine HCl (Hydralazine HCl) 10 Mg Tablet, 10 MG PO Q6H Prescribed by: ANALI MAYA on 10/05/18 09 Ipratropium/Albuterol Sulfate (Iprat-Albut 0.5-3(2.5) mg/3 ml) 3 Ml Ampul.neb, 3 ML INH RTQ4HR PRN for SOA Prescribed by: ANALI MAYA on 10/05/18 09 Lactobac Cmb #3/Fos/Pantethine (Probiotic & Acidophilus Cap) 1 Each Capsule, 1 EACH PO BID Prescribed by: ANALI MAYA on 10/05/18 09 Loratadine (Loratadine) 10 Mg Tablet, 10 MG PO DAILY, (Reported) Entered as Reported by: CARL FU on 10/02/18 1121 Losartan Potassium (Losartan Potassium) 50 Mg Tablet, 50 MG PO DAILY Prescribed by: ANALI MAYA on 10/05/18 09 Methylprednisolone (Medrol) 4 Mg Tab.ds.pk, 4 MG PO UD Prescribed by: VLADISLAV ROBERT on 08/06/19 112 Metoprolol Succinate (Metoprolol Succinate) 50 Mg Tab.er.24h, 75 MG PO BID Prescribed by: ANALI MAYA on 10/05/18 09 Nebulizer (Compact Compressor Nebulizer) 1 Each Each, EACH MC, (DME) Prescribed by: VLADISLAV ROBERT on 08/06/19 112 Nystatin (Nystatin) 100,000 Unit/1 Ml Oral.susp, 500,000 UNITS PO Q6H Prescribed by: JULIANNE VASQUEZ on 06/07/21 1728 Potassium Chloride (Potassium Chloride) 10 Meq Tablet.er, 10 MEQ PO DAILY, (Reported) Entered as Reported by: DEREK FISHMAN on 07/02/15 1833 Prednisone (Prednisone) 20 Mg Tab, 20 MG PO DAILY@0700 Prescribed by: ANALI MAYA on 10/05/18 0902 Rituximab (Rituxan) 100 Mg/10 Ml Conc, IV UD, (Reported) Entered as Reported by: CARL FU on 10/02/18 1135 Ubidecarenone (Co Q-10) 200 Mg Capsule, 200 MG PO DAILY, (Reported) Entered as Reported by: CARL FU on 10/02/18 1121 Venlafaxine HCl (Effexor Xr) 150 Mg Cap.er.24h, 150 MG PO DAILY, (Reported) Entered as Reported by: BREANA GUTIERREZ on 09/30/18 1038 Past Gbqllwv-Mqbigt-Dcpwpo Hx Patient Social History Marrital Status: Number of Children: 1 Number of living children: 1 Employed/Student: employed ([employer]) Tobacco Use?: No Smoking Status: Never a Smoker Use of E-Cig and/or Vaping dev: No Substance use?: Yes Alcohol Use?: No Pt feels they are or have been: Yes Immunizations Up To Date First/Initial COVID19 Vaccinat: vaccinated Second COVID19 Vaccination [place]: vaccinated PED Vaccines UTD: Yes Seasonal Allergies Seasonal Allergies: Yes Current Status Advance Directives: No Communicates: Verbally Primary Language: Wolof Preferred Spoken Language: Wolof Is interpretation needed?: No Sensory deficits: Vision impairment Implanted or Applied Medical D: None Past Medical History Surgeries: Gallbladder (2007) Currently Using CPAP: No Currently Using BIPAP: No High Cholesterol, Hypertension Neuropathy 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 History: Menopausal Renal Failure Gastroesophageal Reflux Hypothyroidsim Loss of Vision: Denies Hearing Impairment: Denies Anxiety, Depression Blood Disorders: Yes (ANEMIA) Adverse Reaction/Blood Tranf: No CHURG Lilibeth 07/01/2015 Family Medical History No Pertinent Family Hx Review of Systems Constitutional: No chills, No dizziness; fever, malaise, weakness, weight loss EENTM: No hearing loss, No hoarseness, No throat pain, No throat swelling Respiratory: cough, dyspnea on exertion, short of breath Cardiovascular: No chest pain, No edema, No palpitations Gastrointestinal: No abdominal pain; loss of appetite, nausea; No vomiting Genitourinary: no symptoms reported Musculoskeletal: back pain, muscle weakness Skin: no symptoms reported Psychiatric/Neurological: Anxiety, Depressed, Weakness All Other Systems Reviewed Negative Unless Noted: Yes Physical Exam Vital Signs Vital Signs - First Documented 06/29/21 10:01 Temp 37.6 Pulse 66 Resp 20 B/P (MAP) 141/88 (105) Pulse Ox 96 O2 Delivery Room Air Capillary Refill : Height, Weight, BMI Height: 5'1.00" Weight: 169lbs. 4.8oz. 76.028014di; 29.46 BMI Method:Stated General Appearance: No Apparent Distress, WD/WN Eyes: Bilateral Eye Normal Inspection, Bilateral Eye PERRL, Bilateral Eye EOMI HEENT: PERRL/EOMI, Pharynx Normal Neck: Full Range of Motion, Normal Inspection, Non Tender, Supple Respiratory: Chest Non Tender, Crackles (CRACKLES IN BASES BILATERALLY), Decreased Breath Sounds Cardiovascular: Regular Rate, Rhythm, No Murmur, Normal Peripheral Pulses Gastrointestinal: Normal Bowel Sounds, No Organomegaly, No Pulsatile Mass, Non Tender, Soft Rectal: Deferred Back: Normal Inspection, No CVA Tenderness, No Vertebral Tenderness Extremity: Normal Capillary Refill, Normal Range of Motion, Non Tender, No Calf Tenderness, No Pedal Edema Neurologic/Psychiatric: Alert, Oriented x3, No Motor/Sensory Deficits, Normal Mood/Affect Skin: Normal Color, Warm/Dry Lymphatic: No Adenopathy Assessment/Plan Assessment and Plan POST-COVID BACTERIAL PNEUMONIA DEHYDRATION HYPOKALEMIA ACUTE RENAL INSUFFICIENCY FEVER NAUSEA BACK PAIN MUSCLE ACHES HYPERTENSION PERIPHERAL NEUROPATHY DEPRESSION HYPOTHYROIDISM GERD POST-COVID BACTERIAL PNEUMONIA - PT ON IV CEFEPIME AND AZITHROMYCIN - REPEAT CXR ON 06/30/2021 - MAT PROTOCOL DEHYDRATION WITH HYPOKALEMIA - IV FLUID BOLUS X 1 LITER - NORMAL SALINE 100ML/HR - REPEAT LABS TOMORROW ACUTE ON CHRONIC RENAL INSUFFICIENCY - REPEAT LABS TOMORROW FEVER - PRN TYLENOL NAUSEA - PRN ZOFRAN BACK PAIN - PRN TYLENOL, USE LIDOCAINE PATCHES ON AM OFF HS. MUSCLE ACHES - SHOULD IMPROVE WITH HYDRATION - HOLD STATIN HYPERTENSION - RESUME LOSARTAN, MONITOR PRESSURES AND MAY NEED TO RESUME AMLODIPINE PERIPHERAL NEUROPATHY -WAIT FOR RECONCILIATION OF MEDICATIONS AND RESTART GABAPENTIN IF NEEDED FOR PAIN DEPRESSION - RESUME HOME MEDICATION ONCE MEDICATIONS RECONCILED. HYPOTHYROIDISM - CHECK LABS - RESUME HOME MEDICATIONS GERD - PPI THERAPY WHILE IN HOSPITAL DVT PROPHYLAXIS WITH LOVENOX AND SCD'S GI PROPHYLAXIS WITH PROBIOTIC AND PPI Admission Diagnosis POST-COVID BACTERIAL PNEUMONIA DEHYDRATION HYPOKALEMIA ACUTE RENAL INSUFFICIENCY FEVER NAUSEA BACK PAIN MUSCLE ACHES HYPERTENSION PERIPHERAL NEUROPATHY DEPRESSION HYPOTHYROIDISM GERD Admission Status: Inpatient Order (span 2 midnights) Reason for Inpatient Admission: INPT ADMISSION FOR PNEUMONIA, WEAKNESS, DEHYDRATION - WILL REQUIRE ABOUT 48-72 HOURS FOR STABILIZATION. ANALI MAYA MD Jun 29, 2021 16:42
[2021-06-29] MEDS ORDERED: LOSARTAN 50 MG (COZAAR) TAB PO NR (17:00)
[2021-06-29] MEDS: POTASSIUM CL 10MEQ/50ML IVPB 50 ML IV SCH ×2 (17:11→18:05)
[2021-06-29] MEDS: LACTOBACILLUS ACIDOPHILUS (PROBIOTIC) CAPSULE PO SCH (17:23)
[2021-06-29] MEDS: ONDANSETRON 4 MG/2 ML (SDV) Z0FRAN IVP PRN (18:39)
[2021-06-29 18:57] LABS: BILIRUBIN,URINE NEGATIVE (NEGATIVE); CLARITY,URINE SL CLOUDY; COLOR,URINE YELLOW; GLUCOSE, URINE (UA) NEGATIVE (NEGATIVE); KETONES,URINE NEGATIVE (NEGATIVE); LEUKOCYTE ESTERASE ,URINE NEGATIVE (NEGATIVE); NITRITE,URINE NEGATIVE (NEGATIVE); PROTEIN,URINE 2+ (NEGATIVE)
[2021-06-29 19:14] LABS: BACTERIA,URINE NEGATIVE /HPF; RBC,URINE RARE /HPF; SQUAMOUS EPITHELIAL CELL,UR RARE /HPF
[2021-06-29] MEDS: CEFEPIME INJECTION 2,000 MG in NS (IVPB) 50 ML IV SCH (20:08)
[2021-06-29 20:41] VITALS: BP 152/78
[2021-06-29] MEDS: RT-ALBUTEROL HFA 8.5 GM INHALER IH SCH (21:51)
[2021-06-29 23:15] VITALS: BP 150/73
[2021-06-30] MEDS: NS IV 1000 ML 1,000 ML IV SCH ×3 (01:34→23:35)
[2021-06-30] MEDS: RT-ALBUTEROL HFA 8.5 GM INHALER IH SCH ×4 (02:52→21:42)
[2021-06-30 03:54] VITALS: BP 139/78
[2021-06-30 04:37] LABS: BASOPHILS % (AUTO) 0 % (0-10); EOSINOPHILS % (AUTO) 0 % (0-10); HEMATOCRIT 39 % (35-52); HEMOGLOBIN 12.4 g/dL (11.5-16.0); LYMPHOCYTES # (AUTO) 2.3 10^3/uL (1.0-4.0); LYMPHOCYTES % (AUTO) 40 % (12-44); MEAN CORPUSCULAR HEMOGLOBIN 28 pg (25-34); MEAN CORPUSCULAR HGB CONC 32 g/dL (32-36); MEAN CORPUSCULAR VOLUME 86 fL (80-99); MEAN PLATELET VOLUME 11.2 fL (9.0-12.2); MONOCYTES # (AUTO) 1.2 10^3/uL (0.0-1.0); MONOCYTES % (AUTO) 20 % (0-12); NEUTROPHILS # (AUTO) 2.3 10^3/uL (1.8-7.8); NEUTROPHILS % (AUTO) 40 % (42-75); PLATELET COUNT 221 10^3/uL (130-400); WHITE BLOOD COUNT 5.8 10^3/uL (4.3-11.0)
[2021-06-30] MEDS ORDERED: ACETAMINOPHEN 500 MG TAB (TYLENOL) ONE (04:40)
[2021-06-30] MEDS: ACETAMINOPHEN 500 MG TAB (TYLENOL) PO PRN (04:41)
[2021-06-30 04:55] LABS: POTASSIUM 3.3 MMOL/L (3.6-5.0)
[2021-06-30 04:56] LABS: CALCIUM 8.1 MG/DL (8.5-10.1)
[2021-06-30 04:58] LABS: TOTAL PROTEIN 5.3 GM/DL (6.4-8.2)
[2021-06-30 04:59] LABS: BILIRUBIN,TOTAL 0.3 MG/DL (0.1-1.0)
[2021-06-30 05:01] LABS: CREATININE SERUM 1.34 MG/DL (0.60-1.30)
[2021-06-30 05:11] LABS: BAND NEUTROPHILS 1 %; LYMPHOCYTES % (MANUAL) 34 %; MONOCYTES % (MANUAL) 20 %; NEUTROPHILS % (MANUAL) 43 %
[2021-06-30 05:12] LABS: MICROCYTOSIS SLIGHT
[2021-06-30 07:35] VITALS: BP 144/65
[2021-06-30] MEDS ORDERED: KCL 20 MEQ TAB (K-DUR) PO ONE (08:45)
--- NOTE | 2021-06-30 08:48 | Progress Note ---
Subjective All Other Systems Reviewed All Other Systems Reviewed: Yes Objective Exam Vital Signs Vital Signs Date Time Temp Pulse Resp B/P (MAP) Pulse Ox O2 Delivery O2 Flow Rate FiO2 06/30/21 07:35 36.1 79 20 144/65 (91) 95 Room Air 06/30/21 07:00 60 06/30/21 03:54 37.2 80 17 139/78 (98) 92 Room Air 06/30/21 02:52 93 Room Air 06/30/21 01:00 76 06/29/21 23:15 36.3 75 18 150/73 (98) 93 Room Air 06/29/21 21:52 93 Room Air 06/29/21 20:41 36.7 75 20 152/78 (102) 91 Room Air 06/29/21 19:00 89 06/29/21 16:06 37.4 80 18 149/82 (104) 94 Room Air 06/29/21 15:55 37.8 81 96 06/29/21 13:00 81 06/29/21 11:52 37.8 77 20 139/91 (107) 96 Room Air 06/29/21 11:03 90 06/29/21 10:38 Room Air 06/29/21 10:01 37.6 66 20 141/88 (105) 96 Room Air I & O 06/30/21 07:00 Intake Total 1100 ml Balance 1100 ml General Appearance: No Apparent Distress, WD/WN Eyes: Bilateral Eye Normal Inspection, Bilateral Eye PERRL, Bilateral Eye EOMI HEENT: PERRL/EOMI, Pharynx Normal Neck: Full Range of Motion, Normal Inspection, Non Tender, Supple Respiratory: Chest Non Tender, Crackles (CRACKLES IN BASES BILATERALLY), Decreased Breath Sounds Cardiovascular: Regular Rate, Rhythm, No Murmur, Normal Peripheral Pulses Gastrointestinal: Normal Bowel Sounds, No Organomegaly, No Pulsatile Mass, Non Tender, Soft Rectal: Deferred Back: Normal Inspection, No CVA Tenderness, No Vertebral Tenderness Extremity: Normal Capillary Refill, Normal Range of Motion, Non Tender, No Calf Tenderness, No Pedal Edema Neurologic/Psychiatric: Alert, Oriented x3, No Motor/Sensory Deficits, Normal Mood/Affect Skin: Normal Color, Warm/Dry Lymphatic: No Adenopathy Results Lab Laboratory Tests 06/29/21 10:25: Influenza Type A Antigen NEGATIVE, Influenza Type B Antigen NEGATIVE, SARS-CoV-2 RNA (RT-PCR) Negative 06/29/21 10:30: White Blood Count 5.3, Red Blood Count 5.39H, Hemoglobin 14.7, Hematocrit 46, Mean Corpuscular Volume 85, Mean Corpuscular Hemoglobin 27, Mean Corpuscular Hemoglobin Concent 32, Red Cell Distribution Width 14.2, Platelet Count 262, Mean Platelet Volume 11.1, Immature Granulocyte % (Auto) 0, Neutrophils (%) (Auto) 63, Lymphocytes (%) (Auto) 23, Monocytes (%) (Auto) 14H, Eosinophils (%) (Auto) 0, Basophils (%) (Auto) 0, Neutrophils # (Auto) 3.3, Lymphocytes # (Auto) 1.2, Monocytes # (Auto) 0.7, Eosinophils # (Auto) 0.0, Basophils # (Auto) 0.0, Immature Granulocyte # (Auto) 0.0, Sodium Level 139, Potassium Level 3.5L, Chloride Level 108H, Carbon Dioxide Level 18L, Anion Gap 13, Blood Urea Nitrogen 16, Creatinine 1.42H, Estimat Glomerular Filtration Rate 37, BUN/Creatinine Ratio 11, Glucose Level 116H, Lactic Acid Level 1.10, Calcium Level 9.3, Corrected Calcium 9.5, Total Bilirubin 0.3, Aspartate Amino Transf (AST/SGOT) 38H, Alanine Aminotransferase (ALT/SGPT) 28, Alkaline Phosphatase 87, Total Protein 6.4, Albumin 3.8 06/29/21 14:06: Coronavirus (COVID-19)(PCR) Negative 06/29/21 18:44: Urine Color YELLOW, Urine Clarity SL CLOUDY, Urine pH 6.0, Urine Specific [place] 1.025H, Urine Protein 2+H, Urine Glucose (UA) NEGATIVE, Urine Ketones NEGATIVE, Urine Nitrite NEGATIVE, Urine Bilirubin NEGATIVE, Urine Urobilinogen 0.2, Urine Leukocyte Esterase NEGATIVE, Urine RBC (Auto) TRACE-IH, Urine RBC RARE, Urine WBC 2-5, Urine Squamous Epithelial Cells RARE, Urine Crystals NONE, Urine Bacteria NEGATIVE, Urine Casts NONE, Urine Mucus NEGATIVE, Urine Culture Indicated NO 06/30/21 04:10: White Blood Count 5.8, Red Blood Count 4.49, Hemoglobin 12.4, Hematocrit 39, Mean Corpuscular Volume 86, Mean Corpuscular Hemoglobin 28, Mean Corpuscular Hemoglobin Concent 32, Red Cell Distribution Width 14.3, Platelet Count 221, Mean Platelet Volume 11.2, Immature Granulocyte % (Auto) 0, Neutrophils (%) (Auto) 40L, Lymphocytes (%) (Auto) 40, Monocytes (%) (Auto) 20H, Eosinophils (%) (Auto) 0, Basophils (%) (Auto) 0, Neutrophils # (Auto) 2.3, Lymphocytes # (Auto) 2.3, Monocytes # (Auto) 1.2H, Eosinophils # (Auto) 0.0, Basophils # (Auto) 0.0, Immature Granulocyte # (Auto) 0.0, Neutrophils % (Manual) 43, Lymphocytes % (Manual) 34, Monocytes % (Manual) 20, Band Neutrophils 1, Microcytosis SLIGHT, Sodium Level 141, Potassium Level 3.3L, Chloride Level 111H, Carbon Dioxide Level 20L, Anion Gap 10, Blood Urea Nitrogen 16, Creatinine 1.34H, Estimat Glomerular Filtration Rate 40, BUN/Creatinine Ratio 12, Glucose Level 90, Calcium Level 8.1L, Corrected Calcium 8.9, Total Bilirubin 0.3, Aspartate Amino Transf (AST/SGOT) 27, Alanine Aminotransferase (ALT/SGPT) 21, Alkaline Phosphatase 68, Total Protein 5.3L, Albumin 3.0L Assessment/Plan Assessment/Plan Admission Dx POST-COVID BACTERIAL PNEUMONIA DEHYDRATION HYPOKALEMIA ACUTE RENAL INSUFFICIENCY FEVER NAUSEA BACK PAIN MUSCLE ACHES HYPERTENSION PERIPHERAL NEUROPATHY DEPRESSION HYPOTHYROIDISM GERD Assessment and Plan POST-COVID BACTERIAL PNEUMONIA DEHYDRATION HYPOKALEMIA ACUTE RENAL INSUFFICIENCY FEVER NAUSEA BACK PAIN MUSCLE ACHES HYPERTENSION PERIPHERAL NEUROPATHY DEPRESSION HYPOTHYROIDISM GERD POST-COVID BACTERIAL PNEUMONIA - PT ON IV CEFEPIME AND AZITHROMYCIN - REPEAT CXR ON 06/30/2021 - MAT PROTOCOL DEHYDRATION WITH HYPOKALEMIA - IV FLUID BOLUS X 1 LITER - NORMAL SALINE 100ML/HR - REPEAT LABS TOMORROW ACUTE ON CHRONIC RENAL INSUFFICIENCY - REPEAT LABS TOMORROW FEVER - PRN TYLENOL NAUSEA - PRN ZOFRAN BACK PAIN - PRN TYLENOL, USE LIDOCAINE PATCHES ON AM OFF HS. MUSCLE ACHES - SHOULD IMPROVE WITH HYDRATION - HOLD STATIN HYPERTENSION - RESUME LOSARTAN, MONITOR PRESSURES AND MAY NEED TO RESUME AMLODIPINE PERIPHERAL NEUROPATHY -WAIT FOR RECONCILIATION OF MEDICATIONS AND RESTART GABAPENTIN IF NEEDED FOR PAIN DEPRESSION - RESUME HOME MEDICATION ONCE MEDICATIONS RECONCILED. HYPOTHYROIDISM - CHECK LABS - RESUME HOME MEDICATIONS GERD - PPI THERAPY WHILE IN HOSPITAL DVT PROPHYLAXIS WITH LOVENOX AND SCD'S GI PROPHYLAXIS WITH PROBIOTIC AND PPI Admission Dx POST-COVID BACTERIAL PNEUMONIA DEHYDRATION HYPOKALEMIA ACUTE RENAL INSUFFICIENCY FEVER NAUSEA BACK PAIN MUSCLE ACHES HYPERTENSION PERIPHERAL NEUROPATHY DEPRESSION HYPOTHYROIDISM GERD Clinical Quality Measures Admission Status Admission Dx POST-COVID BACTERIAL PNEUMONIA DEHYDRATION HYPOKALEMIA ACUTE RENAL INSUFFICIENCY FEVER NAUSEA BACK PAIN MUSCLE ACHES HYPERTENSION PERIPHERAL NEUROPATHY DEPRESSION HYPOTHYROIDISM GERD ANALI MENJIVAR MD Jun 30, 2021 08:48
[2021-06-30] MEDS: ONDANSETRON 4 MG/2 ML (SDV) Z0FRAN IVP PRN (09:47)
[2021-06-30] MEDS: LOSARTAN 50 MG (COZAAR) TAB PO SCH (09:50)
[2021-06-30] MEDS: LACTOBACILLUS ACIDOPHILUS (PROBIOTIC) CAPSULE PO SCH ×3 (09:50→17:44)
[2021-06-30] MEDS: PANTOPRAZOLE 40 MG (PROTONIX) TAB PO SCH (09:50)
[2021-06-30] MEDS: AZITHROMYCIN INJECTION 500 MG in NS (IVPB) 250 ML IV SCH (09:51)
[2021-06-30] MEDS: CEFEPIME INJECTION 2,000 MG in NS (IVPB) 50 ML IV SCH ×2 (09:51→21:34)
--- NOTE | 2021-06-30 10:34 | Diagnostic Imaging Report ---
INDICATION: Lower respiratory infection. EXAMINATION: PA and lateral chest. FINDINGS: There are patchy alveolar nodular infiltrates in both lower lungs and a focus also present in the left upper lobe. The pattern and distribution of these is unchanged compared to the previous day. IMPRESSION: Multifocal patchy alveolar infiltrates, consistent with pneumonia. Stable since the previous day. Dictated by: Dictated on workstation # [id number]
[2021-06-30] MEDS ORDERED: LEVO50TA6 PO (12:20)
[2021-06-30] MEDS ORDERED: AMLO-250 PO (12:20)
[2021-06-30] MEDS ORDERED: METO50TA7 PO (12:20)
[2021-06-30] MEDS ORDERED: MULT-1067 PO (12:20)
[2021-06-30] MEDS ORDERED: MYCO500T34 PO (12:20)
[2021-06-30] MEDS ORDERED: FAMO40TA6 PO (12:20)
[2021-06-30] MEDS ORDERED: LORA10TA72 PO (12:20)
[2021-06-30] MEDS ORDERED: CLN.1T PO (12:20)
[2021-06-30] MEDS ORDERED: VENL150T PO (12:20)
[2021-06-30] MEDS ORDERED: LOSA50TA63 PO (12:20)
[2021-06-30] MEDS ORDERED: POTA10TA37 PO (12:20)
[2021-06-30] MEDS ORDERED: GABA300C PO (12:20)
[2021-06-30] MEDS ORDERED: OXYB5TAB13 PO (12:22)
--- NOTE | 2021-06-30 13:19 | Physical Therapy Progress Note ---
Therapy Progress Note Patient is up independently in room and states she does not need PT. PT educated patient on importance of ambulating in hallway and to sit up in chair to improve pulmonary function and improve endurance. Patient voices understanding. No skilled PT indicated. 1 visit MARS SANCHEZ PT Jun 30, 2021 13:19
[2021-06-30 15:14] VITALS: BP 157/85
[2021-06-30 23:55] VITALS: BP 151/77
[2021-07-01] MEDS: RT-ALBUTEROL HFA 8.5 GM INHALER IH SCH ×2 (02:56→08:52)
[2021-07-01] MEDS: ACETAMINOPHEN 500 MG TAB (TYLENOL) PO PRN (05:25)
[2021-07-01 05:53] LABS: BASOPHILS % (AUTO) 0 % (0-10); EOSINOPHILS % (AUTO) 0 % (0-10); HEMATOCRIT 38 % (35-52); LYMPHOCYTES # (AUTO) 1.4 10^3/uL (1.0-4.0); LYMPHOCYTES % (AUTO) 23 % (12-44); MEAN CORPUSCULAR HEMOGLOBIN 27 pg (25-34); MEAN CORPUSCULAR HGB CONC 32 g/dL (32-36); MEAN CORPUSCULAR VOLUME 86 fL (80-99); MEAN PLATELET VOLUME 10.9 fL (9.0-12.2); MONOCYTES # (AUTO) 1.2 10^3/uL (0.0-1.0); MONOCYTES % (AUTO) 20 % (0-12); NEUTROPHILS # (AUTO) 3.3 10^3/uL (1.8-7.8); NEUTROPHILS % (AUTO) 56 % (42-75); PLATELET COUNT 221 10^3/uL (130-400); WHITE BLOOD COUNT 5.8 10^3/uL (4.3-11.0)
[2021-07-01 06:06] LABS: POTASSIUM 3.5 MMOL/L (3.6-5.0)
[2021-07-01 06:07] LABS: CALCIUM 8.6 MG/DL (8.5-10.1)
[2021-07-01 06:11] LABS: CREATININE SERUM 1.18 MG/DL (0.60-1.30)
[2021-07-01] MEDS ORDERED: KCL 20 MEQ TAB (K-DUR) PO SCH (07:00)
[2021-07-01 08:00] VITALS: BP 144/85
[2021-07-01] MEDS: CEFEPIME INJECTION 2,000 MG in NS (IVPB) 50 ML IV SCH (08:45)
[2021-07-01] MEDS: PANTOPRAZOLE 40 MG (PROTONIX) TAB PO SCH (08:46)
[2021-07-01] MEDS: LACTOBACILLUS ACIDOPHILUS (PROBIOTIC) CAPSULE PO SCH (08:46)
[2021-07-01] MEDS: LOSARTAN 50 MG (COZAAR) TAB PO SCH (08:46)
[2021-07-01] MEDS ORDERED: VENlafaxine XR 75 MG (EFFEXOR XR) CAP PO SCH (08:57)
[2021-07-01] MEDS ORDERED: meTOproloL SUCCINATE 50 MG (TOPROL XL) TAB PO SCH (09:00)
[2021-07-01] MEDS ORDERED: OXYBUTYNIN (DITROPAN) 5 MG TAB PO SCH (09:00)
[2021-07-01] MEDS ORDERED: amLODIPine 5 MG (NORVASC) TAB PO SCH (09:00)
[2021-07-01] MEDS ORDERED: NON-FORMULARY MEDICATION 1 EA EA (Mycophenolate Mofetil (Cellcept) 500 MG) PO SCH (09:00)
[2021-07-01] MEDS ORDERED: AZITHROMYCIN 250 MG TAB (ZITHROMAX) PO SCH (09:00)
[2021-07-01] MEDS ORDERED: LEVOTHYROXINE 50 MCG (LEVOTHROID) TAB PO SCH (09:00)
[2021-07-01] MEDS ORDERED: LOSARTAN 50 MG (COZAAR) TAB PO SCH (09:00)
--- NOTE | 2021-07-01 09:15 | Discharge Summary ---
Diagnosis/Chief Complaint Date of Admission Jun 29, 2021 at 09:20 Date of Discharge Reason Hospital Visit PT IS A 65 Y/O FEMALE WHO IS KNOWN TO ME FROM CLINIC. SHE PRESENTED TO THE OFFICE TODAY WITH COMPLAINT OF EXTREME FATIGUE AND COUGH. PT WAS DIAGNOSED WITH COVID ON 06/07/2021, RECEIVED THE MONOCLONAL ANTIBODIES ON 06/11/2021. PT FELT BETTER INITIALLY, THEN SHE WENT BACK TO WORK AND FELT POORLY, STAYED AT HOME A FEW DAYS, AND TRIED TO GO BACK TO WORK AGAIN ONLY TO FEEL SO BAD THAT SHE STAYED AT HOME AND HAS BEEN MINIMALLY ACTIVE SINCE GOING HOME FROM WORK - SHE HAS BEEN LYING AROUND AT HOME AND NOT TAKING ANY OF HER MEDICATIONS FOR ABOUT 2 WEEKS. PER HER DTR'S REPORT, HER MOM HAS BEEN RUNNING A FEVER OFF AND ON SINCE 06/07/2021. SHE STARTED TO HAVE NAUSEA AND VOMITING ABOUT 2 - 3 DAYS AGO. Discharge Summary Discharge Physical Examination Allergies: Coded Allergies: No Known Drug Allergies (Verified , 09/01/07) Vitals & I&Os Vital Signs Date Time Temp Pulse Resp B/P (MAP) Pulse Ox O2 Delivery O2 Flow Rate FiO2 07/01/21 08:52 98 Room Air 07/01/21 08:00 36.5 78 18 144/85 (104) Hospital Course Pending Labs Laboratory Tests 07/01/21 05:45: White Blood Count 5.8, Red Blood Count 4.38, Hemoglobin 12.0, Hematocrit 38, Mean Corpuscular Volume 86, Mean Corpuscular Hemoglobin 27, Mean Corpuscular Hem oglobin Concent 32, Red Cell Distribution Width 14.6, Platelet Count 221, Mean Platelet Volume 10.9, Immature Granulocyte % (Auto) 0, Neutrophils (%) (Auto) 56, Lymphocytes (%) (Auto) 23, Monocytes (%) (Auto) 20, Eosinophils (%) (Auto) 0, Basophils (%) (Auto) 0, Neutrophils # (Auto) 3.3, Lymphocytes # (Auto) 1.4, Monocytes # (Auto) 1.2, Eosinophils # (Auto) 0.0, Basophils # (Auto) 0.0, Immature Granulocyte # (Auto) 0.0, Sodium Level 143, Potassium Level 3.5, Chloride Level 112, Carbon Dioxide Level 20, Anion Gap 11, Blood Urea Nitrogen 10, Creatinine 1.18, Estimat Glomerular Filtration Rate 46, BUN/Creatinine Ratio 8, Glucose Level 96, Calcium Level 8.6 Discharge Instructions to patient/family Please see electronic discharge instructions given to patient. Discharge Medications Reviewed and agree with Discharge Medication list on patient's Discharge Instruction sheet ANALI MENJIVAR MD Jul 01, 2021 09:15
[2021-07-01] MEDS ORDERED: LACT1CAP57 PO (09:18)
[2021-07-01] MEDS ORDERED: CEFD300C3 PO (09:18)
[2021-07-01] MEDS ORDERED: ALBU18HF2 INH (09:18)
[2021-07-01] MEDS ORDERED: AZIT250T12 PO (09:18)
--- NOTE | 2021-07-01 09:19 | Discharge Inst-Simple/Standard ---
Discharge Inst-Standard Reconcile Patient Problems Problems Reviewed?: Yes Discharge Medications New, Converted or Re-Newed RX: Transmitted to Pharmacy Patient Instructions/Follow Up Plan of Care/Instructions/FU: 1 [facility] Activity as Tolerated: Yes Discharge Diet: Regular Diet Return to The Hospital For: ANY WORSENING CHEST PAIN, SHORTNESS OF BREATH, DIZZINESS OR LIFETHREATENING ILLNESS OR INJURY Medication List: Active Scripts Active Ventolin Hfa (Albuterol Sulfate) 18 Gm Hfa.aer.ad 18 Gm INH Q6H Probiotic & Acidophilus Cap (Lactobac Cmb #3/Fos/Pantethine) 1 Each Capsule 1 Each PO TID Cefdinir 300 Mg Capsule 300 Mg PO BID Azithromycin 250 Mg Tablet 250 Mg PO DAILY Reported Oxybutynin Chloride 5 Mg Tablet 2.5 Mg PO DAILY TAKES OF A 5MG TAB Potassium Chloride 10 Meq Tab.er.prt 10 Meq PO DAILY Venlafaxine HCl ER (Venlafaxine HCl) 150 Mg Tab.er.24 150 Mg PO DAILY Centrum Adults Tablet (Multivitamin/Iron/Folic Acid) 1 Each Tablet 1 Each PO DAILY Clonidine HCl 0.1 Mg Tablet 0.1 Mg PO HS Claritin (Loratadine) 10 Mg Tab.rapdis 10 Mg PO DAILY Levothyroxine Sodium 50 Mcg Tablet 50 Mcg PO DAILY Famotidine 40 Mg Tablet 40 Mg PO DAILY Amlodipine Besylate 5 Mg Tablet 5 Mg PO DAILY Cellcept (Mycophenolate Mofetil) 500 Mg Tablet 500 Mg PO BID Neurontin (Gabapentin) 300 Mg Capsule 300 Mg PO HS Metoprolol Succinate 50 Mg Tab.er.24h 50 Mg PO BID Losartan Potassium 50 Mg Tablet 50 Mg PO DAILY LAST FILLED 02-05-2021 #60/60 DAY SUPPLY Atorvastatin Calcium 20 Mg Tablet 20 Mg PO DAILY Lab results: Laboratory Tests Test 07/01/21 05:45 Range/Units White Blood Count 5.8 4.3-11.0 10^3/uL Red Blood Count 4.38 3.80-5.11 10^6/uL Hemoglobin 12.0 11.5-16.0 g/dL Hematocrit 38 35-52 % Mean Corpuscular Volume 86 80-99 fL Mean Corpuscular Hemoglobin 27 25-34 pg Mean Corpuscular Hemoglobin Concent 32 32-36 g/dL Red Cell Distribution Width 14.6 H 10.0-14.5 % Platelet Count 221 130-400 10^3/uL Mean Platelet Volume 10.9 9.0-12.2 fL Immature Granulocyte % (Auto) 0 % Neutrophils (%) (Auto) 56 42-75 % Lymphocytes (%) (Auto) 23 12-44 % Monocytes (%) (Auto) 20 H 0-12 % Eosinophils (%) (Auto) 0 0-10 % Basophils (%) (Auto) 0 0-10 % Neutrophils # (Auto) 3.3 1.8-7.8 10^3/uL Lymphocytes # (Auto) 1.4 1.0-4.0 10^3/uL Monocytes # (Auto) 1.2 H 0.0-1.0 10^3/uL Eosinophils # (Auto) 0.0 0.0-0.3 10^3/uL Basophils # (Auto) 0.0 0.0-0.1 10^3/uL Immature Granulocyte # (Auto) 0.0 0.0-0.1 10^3/uL Sodium Level 143 135-145 MMOL/L Potassium Level 3.5 L 3.6-5.0 MMOL/L Chloride Level 112 H 98-107 MMOL/L Carbon Dioxide Level 20 L 21-32 MMOL/L Anion Gap 11 5-14 MMOL/L Blood Urea Nitrogen 10 7-18 MG/DL Creatinine 1.18 0.60-1.30 MG/DL Estimat Glomerular Filtration Rate 46 BUN/Creatinine Ratio 8 Glucose Level 96 70-105 MG/DL Calcium Level 8.6 8.5-10.1 MG/DL My orders: Orders - ANALI MENJIVAR MD [facility] Req (06/30/21 11:33) Patient Visit (06/30/21 ) Azithromycin Tablet (Zithromax Tablet) (07/01/21 09:00) Amlodipine Tablet (Norvasc Tablet) (07/01/21 09:00) Clonidine Tablet (Catapres Tablet) (07/01/21 21:00) Gabapentin Capsule/Tablet (Neurontin Cap (07/01/21 21:00) Levothyroxine Tablet (Synthroid Tablet) (07/01/21 09:00) Metoprolol Succinate (Xl) Tab (Toprol Xl (07/01/21 09:00) Oxybutynin Tablet (Ditropan Tablet) (07/01/21 09:00) (Nf) Mycophenolate Mofetil (Cellcept) (07/01/21 09:00) Venlafaxine Xr Capsule (Effexor Xr Capsu (07/01/21 08:57) Attending Discharge Inpt/Inobs (07/01/21 09:15) ANALI MENJIVAR MD Jul 01, 2021 09:19
--- NOTE | 2021-07-01 09:38 | Diagnostic Imaging Report ---
INDICATION: Pneumonia. PA and lateral chest obtained at 09:13 a.m. and compared to 06/30/2021. FINDINGS: Heart and mediastinal silhouette are normal in appearance. There is no change in bibasilar infiltrates compared to yesterday. There is no pneumothorax or pleural fluid collection. IMPRESSION: Stable bilateral infiltrates compared to yesterday. Dictated by: Dictated on workstation # [id number]
[2021-07-01] MEDS ORDERED: GABAPENTIN 300 MG (NEURONTIN) CAP PO SCH (21:00)
[2021-07-01] MEDS ORDERED: cloNIDine 0.1 MG (CATAPRES) TAB PO SCH (21:00)
== END 2021-07-01 10:10 | disposition home or self-care (01) | DRG 640 ==
LOC: 4TH 09:20
PROVIDERS: ADMIT Family Medicine; ATTEND Family Medicine
DX: E86.0 Dehydration (principal); J15.9 Unspecified bacterial pneumonia; U09.9 Post COVID-19 condition, unspecified; E78.00 Pure hypercholesterolemia, unspecified; G62.9 Polyneuropathy, unspecified; K21.9 Gastro-esophageal reflux disease without esophagitis; E03.9 Hypothyroidism, unspecified; F41.9 Anxiety disorder, unspecified; F32.A Depression, unspecified; E87.6 Hypokalemia; N18.9 Chronic kidney disease, unspecified; R11.0 Nausea; M79.10 Myalgia, unspecified site; I12.9 Hypertensive chronic kidney disease with stage 1 through stage 4 chronic kidney disease, or unspecified chronic kidney disease; Z20.822 Contact with and (suspected) exposure to COVID-19
CPT/HCPCS: 36410; 36415; 71046; 76937; 80048; 80053; 81000; 83605; 83735; 85007; 85025; 85027; 87040; 87635; 87636; 87804; 94640; 94760

== ENCOUNTER 2021-07-05 13:06 | Emergency (ER) | payer SELFPAY ==
[~2021-07-05] VITALS: Ht 162.6 cm; Wt 70.3 kg
[~2021-07-05 13:06] MED LIST changes: +ALBU18HF2 INH; +AZIT250T12 PO; +FAMO40TA6 PO; +GABA300C PO; +LORA10TA72 PO; +MULT-1067 PO; +OXYB5TAB13 PO; +POTA10TA37 PO
--- NOTE | 2021-07-05 13:42 | ED General ---
General Stated Complaint: FEVER Source of Information: Patient, Family (Daughter) Exam Limitations: No Limitations History of Present Illness Date Seen by Provider: Jul 05, 2021 Time Seen by Provider: 13:22 Initial Comments Patient to ER by private conveyance with her daughter and chief complaint that she was dismissed from the hospital after on Tuesday, 4 days ago after being admitted for 2 days for pneumonia. 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 She follows at [facility]. Her last dose was in March. She has had a continued productive cough. She completed 5 days outpatient cefdinir and azithromycin and has continued malaise weakness anhedonia, anorexia and nausea. No diarrhea. She was tested negative for COVID-19 on Tuesday, 6 days ago. She has had 2 doses of Moderna COVID-19 vaccination. She has had an influenza vaccine. She has not had a booster yet. She does not require oxygen at baseline. She has a history of Raynaud's. She states that she lays her head down to go to sleep and wakes up at night in the morning and then lays around in bed and does not get up to eat and drink and when her daughter does not make her take her medicines she misses those as well. She did take her metoprolol today. Allergies and Home Medications Allergies Coded Allergies: No Known Drug Allergies (Verified , 09/01/07) Patient Home Medication List Home Medication List Reviewed: Yes Albuterol Sulfate (Ventolin Hfa) 18 Gm Hfa.aer.ad, 18 GM INH Q6H Prescribed by: ANALI MENJIVAR on 07/01/21917 Amlodipine Besylate (Amlodipine Besylate) 5 Mg Tablet, 5 MG PO DAILY, (Reported) Entered as Reported by: JAN BLACKMON on 06/30/21 1220 Atorvastatin Calcium (Atorvastatin Calcium) 20 Mg Tablet, 20 MG PO DAILY, (Reported) Entered as Reported by: CARL FU on 10/02/18 1121 Azithromycin (Azithromycin) 250 Mg Tablet, 250 MG PO DAILY Prescribed by: ANALI MENJIVAR on 07/01/21917 Cefdinir (Cefdinir) 300 Mg Capsule, 300 MG PO BID Prescribed by: ANALI MENJIVAR on 07/01/21917 Clonidine HCl (Clonidine HCl) 0.1 Mg Tablet, 0.1 MG PO HS, (Reported) Entered as Reported by: JAN BLACKMON on 06/30/21 122 Famotidine (Famotidine) 40 Mg Tablet, 40 MG PO DAILY, (Reported) Entered as Reported by: JAN BLACKMON on 06/30/21 122 Gabapentin (Neurontin) 300 Mg Capsule, 300 MG PO HS, (Reported) Entered as Reported by: JAN BLACKMON on 06/30/21 1220 Lactobac Cmb #3/Fos/Pantethine (Probiotic & Acidophilus Cap) 1 Each Capsule, 1 EACH PO TID Prescribed by: ANALI MENJIVAR on 07/01/21 0918 Levothyroxine Sodium (Levothyroxine Sodium) 50 Mcg Tablet, 50 MCG PO DAILY, (Reported) Entered as Reported by: JAN BLACKMON on 06/30/21 122 Loratadine (Claritin) 10 Mg Tab.rapdis, 10 MG PO DAILY, (Reported) Entered as Reported by: JAN BLACKMON on 06/30/21 122 Losartan Potassium (Losartan Potassium) 50 Mg Tablet, 50 MG PO DAILY, (Reported) Entered as Reported by: JAN BLACKMON on 06/30/21 122 Metoprolol Succinate (Metoprolol Succinate) 50 Mg Tab.er.24h, 50 MG PO BID, (Reported) Entered as Reported by: JAN BLACKMON on 06/30/21 122 Multivitamin/Iron/Folic Acid (Centrum Adults Tablet) 1 Each Tablet, 1 EACH PO DAILY, (Reported) Entered as Reported by: JAN BLACKMON on 06/30/21 122 Mycophenolate Mofetil (Cellcept) 500 Mg Tablet, 500 MG PO BID, (Reported) Entered as Reported by: JAN BLACKMON on 06/30/21 122 Oxybutynin Chloride (Oxybutynin Chloride) 5 Mg Tablet, 2.5 MG PO DAILY, (Reported) Entered as Reported by: JAN BLACKMON on 06/30/21 122 Potassium Chloride (Potassium Chloride) 10 Meq Tab.er.prt, 10 MEQ PO DAILY, (Reported) Entered as Reported by: JAN BLACKMON on 06/30/21 122 Venlafaxine HCl (Venlafaxine HCl ER) 150 Mg Tab.er.24, 150 MG PO DAILY, (Report ed) Entered as Reported by: JAN BLACKMON on 06/30/21 1220 Discontinued Medications Albuterol Sulfate (Albuterol Sulfate) 2.5 Mg/3 Ml Vial.neb, 2.5 MG IH Q4H Discontinued Reason: Duplicate Order Prescribed by: VLADISLAV ROBERT on 08/06/19 112 Amlodipine Besylate (Amlodipine Besylate) 5 Mg Tablet, 10 MG PO DAILY Discontinued Reason: No Longer Taking Prescribed by: ANALI MENJIVAR on 10/05/18 09 Amoxicillin/Potassium Clav (Augmentin 875-125 Tablet) 1 Each Tablet, 1 EACH PO BID Discontinued Reason: No Longer Taking Prescribed by: ANALI MENJIVAR on 10/05/18 09 Azithromycin (Zithromax) 500 Mg Tablet, 500 MG PO DAILY Discontinued Reason: No Longer Taking Prescribed by: VLADISLAV ROBERT on 08/06/19 112 Cefdinir (Cefdinir) 300 Mg Capsule, 300 MG PO BID Discontinued Reason: No Longer Taking Prescribed by: VLADISLAV ROBERT on 08/06/19 112 Gabapentin (Gabapentin) 300 Mg Capsule, 300 MG PO HS, (Reported) Discontinued Reason: No Longer Taking Entered as Reported by: BREANA GUTIERREZ on 09/30/18 1038 Gabapentin (Gabapentin) 100 Mg Capsule, 100 MG PO DAILY, (Reported) Discontinued Reason: No Longer Taking Entered as Reported by: BREANA GUTIERREZ on 09/30/18 1038 Guaifenesin/Dextromethorphan (Mucinex Dm ER 1,200-60 mg Tab) 1 Each Tbmp.12hr, 1 EACH PO BID Discontinued Reason: No Longer Taking Prescribed by: VLADISLAV ROBERT on 08/06/19 1129 Hydralazine HCl (Hydralazine HCl) 10 Mg Tablet, 10 MG PO Q6H Discontinued Reason: No Longer Taking Prescribed by: ANALI MENJIVAR on 10/05/18 09 Ipratropium/Albuterol Sulfate (Iprat-Albut 0.5-3(2.5) mg/3 ml) 3 Ml Ampul.neb, 3 ML INH RTQ4HR PRN for SOA Discontinued Reason: No Longer Taking Prescribed by: ANALI MENJIVAR on 10/05/18 09 Lactobac Cmb #3/Fos/Pantethine (Probiotic & Acidophilus Cap) 1 Each Capsule, 1 EACH PO BID Discontinued Reason: No Longer Taking Prescribed by: ANALI MENJIVAR on 10/05/18 09 Loratadine (Loratadine) 10 Mg Tablet, 10 MG PO DAILY, (Reported) Discontinued Reason: No Longer Taking Entered as Reported by: CARL FU on 10/02/18 1121 Losartan Potassium (Losartan Potassium) 50 Mg Tablet, 50 MG PO DAILY Discontinued Reason: No Longer Taking Prescribed by: ANALI MENJIVAR on 10/05/18 09 Methylprednisolone (Medrol) 4 Mg Tab.ds.pk, 4 MG PO UD Discontinued Reason: No Longer Taking Prescribed by: VLADISLAV ROBERT on 08/06/19 1129 Metoprolol Succinate (Metoprolol Succinate) 50 Mg Tab.er.24h, 75 MG PO BID Discontinued Reason: No Longer Taking Prescribed by: ANALI MENJIVAR on 10/05/18901 Nebulizer (Compact Compressor Nebulizer) 1 Each Each, EACH MC, (DME) Discontinued Reason: No Longer Taking Prescribed by: VLADISLAV ROBERT on 08/06/19 1129 Nystatin (Nystatin) 100,000 Unit/1 Ml Oral.susp, 500,000 UNITS PO Q6H Discontinued Reason: No Longer Taking Prescribed by: JULIANNE VASQUEZ on 06/07/21 1728 Potassium Chloride (Potassium Chloride) 10 Meq Tablet.er, 10 MEQ PO DAILY, (Reported) Discontinued Reason: No Longer Taking Entered as Reported by: DEREK FISHMAN on 07/02/15 1833 Prednisone (Prednisone) 20 Mg Tab, 20 MG PO DAILY@0700 Discontinued Reason: No Longer Taking Prescribed by: ANALI MENJIVAR on 10/05/18 0902 Rituximab (Rituxan) 100 Mg/10 Ml Conc, IV UD, (Reported) Discontinued Reason: No Longer Taking Entered as Reported by: CARL FU on 10/02/18 1135 Ubidecarenone (Co Q-10) 200 Mg Capsule, 200 MG PO DAILY, (Reported) Discontinued Reason: No Longer Taking Entered as Reported by: CARL FU on 10/02/18 1121 Venlafaxine HCl (Effexor Xr) 150 Mg Cap.er.24h, 150 MG PO DAILY, (Reported) Discontinued Reason: No Longer Taking Entered as Reported by: BREANA GUTIERREZ on 09/30/18 1038 Review of Systems Review of Systems Constitutional: chills, fever, malaise EENTM: no symptoms reported; No ear discharge, No blurred vision Respiratory: see HPI, cough, phlegm, short of breath; No wheezing Cardiovascular: No chest pain, No Hx of Intervention, No palpitations Gastrointestinal: No abdominal pain, No constipation; loss of appetite, nausea, vomiting Genitourinary: No dysuria, No frequency Musculoskeletal: No back pain, No joint pain All Other Systems Reviewed Negative Unless Noted: Yes Past Woczfxb-Hvsaxe-Xdrqgn Hx Patient Social History Tobacco Use?: No Use of E-Cig and/or Vaping dev: No Substance use?: No Immunizations Up To Date Tetanus Booster (TDap): Unknown PED Vaccines UTD: Yes First/Initial COVID19 Vaccinat: vaccinated Second COVID19 Vaccination [place]: vaccinated Seasonal Allergies Seasonal Allergies: Yes Past Medical History Surgeries: Yes (ORAL SURGERY) Gallbladder Respiratory: Yes (INTERSTITIAL LUNG DISEASE--NO HOME O2, NO INHALERS OR NEBULIZERS) Currently Using CPAP: No Currently Using BIPAP: No Cardiac: Yes High Cholesterol, Hypertension Neurological: Yes Neuropathy 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 BASELINE CREATININE 1.7 ON AVERAGE) Renal Failure Gastrointestinal: Yes Gastroesophageal Reflux Musculoskeletal: Yes (POLYMYOSITIS) Endocrine: Yes (OVERLAP SYNDROME) Hypothyroidsim HEENT: No Loss of Vision: Denies Hearing Impairment: Denies Cancer: No Psychosocial: Yes Anxiety, Depression Integumentary: No Blood Disorders: Yes (ANEMIA) Adverse Reaction/Blood Tranf: No Family Medical History No Pertinent Family Hx Physical Exam-Suspected Sepsis Physical Exam Vital Signs Vital Signs - First Documented 07/05/21 13:20 Temp 37.2 Pulse 93 Resp 20 B/P (MAP) 134/80 (98) Pulse Ox 94 O2 Delivery Room Air Capillary Refill : Height, Weight, BMI Height: 5'1.00" Weight: 169lbs. 4.8oz. [id number]; 29.46 BMI Method:Stated General Appearance: Chronically ill, Moderate Distress Eyes: Bilateral Eye Normal Inspection, Bilateral Eye PERRL, Bilateral Eye EOMI HEENT: PERRL/EOMI; No Pharynx Normal (Dry oral mucosa) Neck: Full Range of Motion, Normal Inspection, Non Tender Respiratory: Lungs Clear, No Accessory Muscle Use, No Respiratory Distress, Decreased Breath Sounds Cardiovascular: Regular Rate, Rhythm, No Edema, Tachycardia (100 beats per) Gastrointestinal: Normal Bowel Sounds, Non Tender, Soft Extremity: Normal Capillary Refill, Normal Inspection, No Pedal Edema Neurologic/Psychiatric: Alert, Oriented x3, No Motor/Sensory Deficits Skin: normal color, warm/dry Focused Exam Lactate Level 07/05/21 14:04: Lactic Acid Level 2.32*H Lactic Acid Level Laboratory Tests Test 07/05/21 14:04 Lactic Acid Level 2.32 MMOL/L (0.50-2.00) *H Progress/Results/Core Measures Suspected Sepsis SIRS Temperature: Pulse: Respiratory Rate: Laboratory Tests 07/05/21 14:04: White Blood Count 8.5 Blood Pressure / Mean: 07/05/21 14:04: Lactic Acid Level 2.32*H Laboratory Tests 07/05/21 14:04: Creatinine 1.43H, INR Comment 1.0, Platelet Count 330, Total Bilirubin 0.4 Results/Orders Lab Results Laboratory Tests Test 07/05/21 13:27 07/05/21 14:04 Range/Units Influenza Type A (RT-PCR) Not Detected Not Detecte Influenza Type B (RT-PCR) Not Detected Not Detecte SARS-CoV-2 RNA (RT-PCR) Detected H Not Detecte White Blood Count 8.5 4.3-11.0 10^3/uL Red Blood Count 5.32 H 3.80-5.11 10^6/uL Hemoglobin 14.6 # 11.5-16.0 g/dL Hematocrit 47 35-52 % Mean Corpuscular Volume 87 80-99 fL Mean Corpuscular Hemoglobin 27 25-34 pg Mean Corpuscular Hemoglobin Concent 31 L 32-36 g/dL Red Cell Distribution Width 14.6 H 10.0-14.5 % Platelet Count 330 130-400 10^3/uL Mean Platelet Volume 11.3 9.0-12.2 fL Immature Granulocyte % (Auto) 0 % Neutrophils (%) (Auto) 65 42-75 % Lymphocytes (%) (Auto) 17 12-44 % Monocytes (%) (Auto) 16 H 0-12 % Eosinophils (%) (Auto) 1 0-10 % Basophils (%) (Auto) 0 0-10 % Neutrophils # (Auto) 5.5 1.8-7.8 10^3/uL Lymphocytes # (Auto) 1.5 1.0-4.0 10^3/uL Monocytes # (Auto) 1.4 H 0.0-1.0 10^3/uL Eosinophils # (Auto) 0.1 0.0-0.3 10^3/uL Basophils # (Auto) 0.0 0.0-0.1 10^3/uL Immature Granulocyte # (Auto) 0.0 0.0-0.1 10^3/uL Prothrombin Time 14.1 12.2-14.7 SEC INR Comment 1.0 0.8-1.4 Activated Partial Thromboplast Time 30 24-35 SEC Sodium Level 138 135-145 MMOL/L Potassium Level 4.2 3.6-5.0 MMOL/L Chloride Level 103 98-107 MMOL/L Carbon Dioxide Level 22 21-32 MMOL/L Anion Gap 13 5-14 MMOL/L Blood Urea Nitrogen 18 7-18 MG/DL Creatinine 1.43 H 0.60-1.30 MG/DL Estimat Glomerular Filtration Rate 37 BUN/Creatinine Ratio 13 Glucose Level 87 70-105 MG/DL Lactic Acid Level 2.32 *H 0.50-2.00 MMOL/L Calcium Level 9.7 8.5-10.1 MG/DL Corrected Calcium 9.7 8.5-10.1 MG/DL Total Bilirubin 0.4 0.1-1.0 MG/DL Aspartate Amino Transf (AST/SGOT) 44 H 5-34 U/L Alanine Aminotransferase (ALT/SGPT) 39 0-55 U/L Alkaline Phosphatase 82 40-136 U/L Total Protein 7.3 6.4-8.2 GM/DL Albumin 4.0 3.2-4.5 GM/DL My Orders Orders - TAMMIE SINGH Covid 19 Inhouse Test (07/05/21 13:33) Influenza A And B By Pcr (07/05/21 13:33) Cbc With Automated Diff (07/05/21 13:33) Comprehensive Metabolic Panel (07/05/21 13:33) Blood Culture (07/05/21 13:33) Sputum Culture (07/05/21 13:33) Urinalysis (07/05/21 13:33) Urine Culture (07/05/21 13:33) Protime With Inr (07/05/21 13:33) Partial Thromboplastin Time (07/05/21 13:33) Chest 1 View, Ap/Pa Only (07/05/21 13:33) Ed Iv/Invasive Line Start (07/05/21 13:33) Ed Iv/Invasive Line Start (07/05/21 13:33) Vital Signs Adult Sepsis Patie Q15M (07/05/21 13:33) Ondansetron Injection (Zofran Injectio (07/05/21 13:45) O2 (07/05/21 13:33) Remove Rings In Anticipation O (07/05/21 13:33) Lactic Acid Analyzer (07/05/21 13:33) Lactated Ringers (Lr 1000 Ml Iv Solution (07/05/21 13:45) Acetaminophen Tablet/Caplet (Tylenol T (07/05/21 13:45) Medications Given in ED Current Medications Medications Dose Ordered Sig/Shannan Route Start Time Stop Time Status Last Admin Dose Admin Acetaminophen 650 mg ONCE ONCE PO 07/05/21 13:45 07/05/21 13:46 DC 07/05/21 14:13 650 MG Lactated Ringer's 1,000 ml @ 0 mls/hr Q0M ONCE IV 07/05/21 13:45 07/05/21 13:46 DC 07/05/21 14:12 0 MLS/HR Ondansetron HCl 4 mg PRN PRN IV 07/05/21 13:45 07/05/21 14:13 DC 07/05/21 14:13 4 MG Vital Signs/I&O 07/05/21 13:20 Temp 37.2 Pulse 93 Resp 20 B/P (MAP) 134/80 (98) Pulse Ox 94 O2 Delivery Room Air Capillary Refill : Progress Note #1: Time: 13:40 Progress Note Patient has persistent cough fever chills malaise anorexia despite inpatient and outpatient antibiotic treatment. We will reswab her for COVID and influenza give her a liter of fluids. She says she been urinating plenty and had some swelling related to all the IV fluids from last week. Will treat with antibiotics if her COVID and influenza are negative. She has a 99 temperature right now so we will give her 650 mg Tylenol for the malaise/body aches/history of fever. Progress Note #2: Time: 15:51 Progress Note Patient states he feels better after the fluids. Her mouth is now moist. Patient states she has plenty of Zofran at home. We will give her some Tessalon Perles. She has a ProAir inhaler if she needs it. We will set her up for Paxil of then given her interstitial lung disease Diagnostic Imaging Diagonstic Imaging: Xray Plain Films/CT/US/NM/MRI: chest Comments NAME: ADDY SIMMONS [facility] REC#: [id number] PT STATUS: REG ER : 1955 PHYSICIAN: TAMMIE SINGH MD ADMIT DATE: 07/05/21/ER Draft Date of Exam:07/05/21 CHEST 1 VIEW, AP/PA ONLY INDICATION: SOA fever cough. TECHNIQUE: Single view chest 2:30 PM. CORRELATION STUDY: 07/01/2021. FINDINGS: Patchy bilateral pulmonary infiltrate-like opacities are present. There has been a change in the distribution and appearance of the infiltrates. The lung bases overall are improved. However, there is more focal, triangular shaped dense consolidation in the right mid to upper lung. Mediastinal structures are stable. IMPRESSION: Bilateral pulmonary infiltrate-like opacities compatible with pneumonia. However, there has been change in the distribution and appearance of the infiltrates. Findings may be related to multifocal pneumonia including Covid pneumonia. However, given the more focal area of consolidation in the right mid to upper lung field the possibility of superimposed bacterial-type pneumonia is not excluded Dictated on workstation # [id number] Dict: 07/05/21 1508 Trans: 07/05/21 1516 [facility] [id number] Interpreted by: EMILIA RINCON DO Electronically signed by: Reviewed: Reviewed by Me Departure Impression Primary Impression: COVID-19 Disposition: 01 HOME, SELF-CARE Condition: Stable Departure-Patient Inst. Decision time for Depature: 15:54 Referrals: ANALI MENJIVAR MD (PCP/Family) Primary Care Physician Patient Instructions: COVID-19 Overview Add. Discharge Instructions: Drink plenty of fluids. Take your Zofran as directed for nausea. Tessalon Perles 1 capsule every 6 hours as necessary for cough. Humidifiers and vapor rubs such as Vicks or Mentholatum. Return to the ER if you are having oxygen saturations consistently below 90% while at rest, intractable vomiting, dehydration or other worrisome symptoms. Paxlovid 150 mg initially followed by 100 mg twice a day for 5 days. Scripts [paxlovid] No Conflict Check 150 MG PO ONCE Dispense box and take 150 mg initially then 100 mg twice daily for 5 days. GFR 37. Prov: TAMMIE SINGH 07/05/21 Work/School Note: Work Release Form Date Seen in the Emergency Department: Jul 05, 2021 Return to Work: Jul 15, 2021 Restrictions: Return-No Fever (24hrs) Copy Copies To 1: ANALI MENJIVAR MD, TITUS J Jul 05, 2021 13:42
[2021-07-05] MEDS ORDERED: LACTATED RINGERS 1,000 ML IV ONE (13:45)
[2021-07-05] MEDS ORDERED: ACETAMINOPHEN 325 MG TABLET PO ONE (13:45)
[2021-07-05] MEDS ORDERED: ONDANSETRON 4 MG/2 ML (SDV) Z0FRAN IV PRN (13:45)
[2021-07-05 14:17] LABS: BASOPHILS % (AUTO) 0 % (0-10); EOSINOPHILS # (AUTO) 0.1 10^3/uL (0.0-0.3); EOSINOPHILS % (AUTO) 1 % (0-10); HEMATOCRIT 47 % (35-52); HEMOGLOBIN 14.6 g/dL (11.5-16.0); LYMPHOCYTES # (AUTO) 1.5 10^3/uL (1.0-4.0); LYMPHOCYTES % (AUTO) 17 % (12-44); MEAN CORPUSCULAR HEMOGLOBIN 27 pg (25-34); MEAN CORPUSCULAR HGB CONC 31 g/dL (32-36); MEAN CORPUSCULAR VOLUME 87 fL (80-99); MEAN PLATELET VOLUME 11.3 fL (9.0-12.2); MONOCYTES # (AUTO) 1.4 10^3/uL (0.0-1.0); MONOCYTES % (AUTO) 16 % (0-12); NEUTROPHILS # (AUTO) 5.5 10^3/uL (1.8-7.8); NEUTROPHILS % (AUTO) 65 % (42-75); PLATELET COUNT 330 10^3/uL (130-400); WHITE BLOOD COUNT 8.5 10^3/uL (4.3-11.0)
[2021-07-05 14:31] LABS: POTASSIUM 4.2 MMOL/L (3.6-5.0)
[2021-07-05 14:32] LABS: CALCIUM 9.7 MG/DL (8.5-10.1); PROTHROMBIN TIME PATIENT 14.1 SEC (12.2-14.7)
[2021-07-05 14:34] LABS: TOTAL PROTEIN 7.3 GM/DL (6.4-8.2)
[2021-07-05 14:35] LABS: BILIRUBIN,TOTAL 0.4 MG/DL (0.1-1.0)
[2021-07-05 14:37] LABS: CREATININE SERUM 1.43 MG/DL (0.60-1.30)
--- NOTE | 2021-07-05 15:18 | Diagnostic Imaging Report ---
INDICATION: SOA fever cough. TECHNIQUE: Single view chest 2:30 PM. CORRELATION STUDY: 07/01/2021. FINDINGS: Patchy bilateral pulmonary infiltrate-like opacities are present. There has been a change in the distribution and appearance of the infiltrates. The lung bases overall are improved. However, there is more focal, triangular shaped dense consolidation in the right mid to upper lung. Mediastinal structures are stable. IMPRESSION: Bilateral pulmonary infiltrate-like opacities compatible with pneumonia. However, there has been change in the distribution and appearance of the infiltrates. Findings may be related to multifocal pneumonia including Covid pneumonia. However, given the more focal area of consolidation in the right mid to upper lung field the possibility of superimposed bacterial-type pneumonia is not excluded Dictated by: Dictated on workstation # [id number]
[2021-07-05] MEDS ORDERED: paxlovid PO (15:56)
[2021-07-05 16:21] VITALS: BP 125/67
== END 2021-07-05 16:21 | disposition home or self-care (01) ==
LOC: EDUNIT# 13:06 → ER 13:10
DX: U07.1 COVID-19 (principal); I10 Essential (primary) hypertension; E78.00 Pure hypercholesterolemia, unspecified; K21.9 Gastro-esophageal reflux disease without esophagitis; F41.9 Anxiety disorder, unspecified; F32.9 Major depressive disorder, single episode, unspecified; E03.9 Hypothyroidism, unspecified; Z79.890 Hormone replacement therapy; Z79.899 Other long term (current) drug therapy
CPT/HCPCS: 36415; 71045; 80053; 83605; 85025; 85610; 85730; 87040; 87636

== ENCOUNTER → 2021-07-31 | Outpatient (CLI) | payer SELFPAY ==
[~2021-07-31] MED LIST changes: +paxlovid PO
== END ==
LOC: LAB 11:56
DX: M33.21 Polymyositis with respiratory involvement (principal); J84.9 Interstitial pulmonary disease, unspecified
CPT/HCPCS: 36415; 82085; 82550; 85652; 86141

== ENCOUNTER → 2021-12-24 | Outpatient (RCR) | payer MEDICARE, OTHER ==
[~2021-12-24] MED LIST changes: -VENL150C PO; +VENL150C3 PO
== END | disposition home or self-care (01) ==
PROVIDERS: ATTEND Internal Medicine
DX: M76.31 Iliotibial band syndrome, right leg (principal); M72.2 Plantar fascial fibromatosis; I10 Essential (primary) hypertension

== ENCOUNTER 2022-01-14 09:12 | Outpatient (RCR) | payer MEDICARE, OTHER | END 2022-01-24 | disposition home or self-care (01) | PROVIDERS: ATTEND Internal Medicine | DX: M76.31 Iliotibial band syndrome, right leg (principal); M72.2 Plantar fascial fibromatosis; I10 Essential (primary) hypertension ==

== ENCOUNTER → 2022-02-09 | Outpatient (CLI) | payer MEDICARE, OTHER ==
[~2022-02-09] MED LIST changes: +RT-ALBUTEROL SULF 2.5 MG/3 ML PRE-MIX VIAL INH ONE
== END ==
LOC: RT 08:43
PROVIDERS: ATTEND Internal Medicine
DX: J84.9 Interstitial pulmonary disease, unspecified (principal)
CPT/HCPCS: 94060; 94726; 94729

== ENCOUNTER → 2022-08-16 | Outpatient (CLI) | payer MEDICARE, OTHER ==
[~2022-08-16] MED LIST changes: +ALBU8.5H6 IH; +POTA-177 PO; -POTA10TA37 PO; -RT-ALBUINH IH
== END ==
LOC: RT 13:55
PROVIDERS: ATTEND Internal Medicine
DX: J84.10 Pulmonary fibrosis, unspecified (principal)
CPT/HCPCS: 94060; 94726; 94729

== ENCOUNTER 2022-12-31 12:06 | Emergency (ER) | payer MEDICARE, OTHER ==
[~2022-12-31] VITALS: Ht 154 cm; Wt 73.0 kg
[~2022-12-31 12:06] MED LIST changes: -RT-ALBUTEROL SULF 2.5 MG/3 ML PRE-MIX VIAL INH ONE
[2022-12-31] MEDS ORDERED: PANTOPRAZOLE 40 MG (PROTONIX) VIAL IV ONE (12:30)
[2022-12-31] MEDS ORDERED: ONDANSETRON 4 MG/2 ML (SDV) Z0FRAN IVP ONE (12:30)
--- NOTE | 2022-12-31 12:31 | ED Abdominal Pain ---
General Chief Complaint: Abdominal/GI Problems Stated Complaint: HIGH BLOOD PRESSURE | NAUSEA Nursing Triage Note: PT AMB TO RM 5 PT CO OF EPIGASTRIC DISCOMFORT 11/03. PT STATES HAS POOR APPETITE AND NAUSEA SINCE TUESDAY. PT STATES UNABLE TO TAKE PO B/P MEDS. PT WAS SENT TO ED BY DR MEJIA OFFICE. PT STATES HAS SX OF POSS UTI Source of Information: Patient Exam Limitations: No Limitations History of Present Illness Date Seen by Provider: Dec 31, 2022 Time Seen by Provider: 12:29 Initial Comments Patient is a 67-year-old female presents ED upper abdominal pain. Upper abdominal pain since Tuesday. She states she ate a sandwich started having pain in her upper abdomen. She cannot describe the pain but states it is constant. She states she does not feel well. She reports nausea with episode of vomiting while taking her blood pressure medication. Pain does not radiate. Patient states she has a history of hiatal hernia repair 14 years ago. She does have a history of autoimmune diseases and Rituximab injections. Patient states she is has a history of chronic kidney disease disease stage III. She reports history of elevated blood pressure. She states she has not been able to take her blood pressure medication over the past 2 days. She is on 5 different medication. She reports normal bowel movements. She reports some discomfort with urination but denies frequent urination or decreased urine output. History of cholecystectomy. Denies history of coronary artery disease, chest pain cough, shortness of breath fever, chills, headache or dizziness. Allergies and Home Medications Allergies Coded Allergies: No Known Drug Allergies (Verified , 09/01/07) Patient Home Medication List Home Medication List Reviewed: Yes Albuterol Sulfate (Ventolin Hfa) 18 Gm Hfa.aer.ad, 18 GM INH Q6H Prescribed by: ANALI MENJIVAR on 07/01/21917 Amlodipine Besylate (Amlodipine Besylate) 5 Mg Tablet, 5 MG PO DAILY, (Reported) Entered as Reported by: JAN BLACKMON on 06/30/21 1220 Atorvastatin Calcium (Atorvastatin Calcium) 20 Mg Tablet, 20 MG PO DAILY, (Reported) Entered as Reported by: CARL FU on 10/02/18 1121 Azithromycin (Azithromycin) 250 Mg Tablet, 250 MG PO DAILY Prescribed by: ANALI MENJIVAR on 07/01/21917 Cefdinir (Cefdinir) 300 Mg Capsule, 300 MG PO BID Prescribed by: ANALI MENJIVAR on 07/01/21917 Cephalexin (Cephalexin) 500 Mg Tablet, 500 MG PO BID Prescribed by: ANASTASIA VU on 12/31/22 1405 Clonidine HCl (Clonidine HCl) 0.1 Mg Tablet, 0.1 MG PO HS, (Reported) Entered as Reported by: JAN BLACKMON on 06/30/21 122 Famotidine (Famotidine) 40 Mg Tablet, 40 MG PO DAILY, (Reported) Entered as Reported by: JAN BLACKMON on 06/30/21 122 Gabapentin (Neurontin) 300 Mg Capsule, 300 MG PO HS, (Reported) Entered as Reported by: JAN BLACKMON on 06/30/21 122 Lactobac Cmb #3/Fos/Pantethine (Probiotic & Acidophilus Cap) 1 Each Capsule, 1 EACH PO TID Prescribed by: ANALI MENJIVAR on 07/01/21917 Levothyroxine Sodium (Levothyroxine Sodium) 50 Mcg Tablet, 50 MCG PO DAILY, (Reported) Entered as Reported by: JAN BLACKMON on 06/30/21 122 Loratadine (Claritin) 10 Mg Tab.rapdis, 10 MG PO DAILY, (Reported) Entered as Reported by: JAN BLACKMON on 06/30/21 122 Losartan Potassium (Losartan Potassium) 50 Mg Tablet, 50 MG PO DAILY, (Reported) Entered as Reported by: JAN BLACKMON on 06/30/21 122 Metoprolol Succinate (Metoprolol Succinate) 50 Mg Tab.er.24h, 50 MG PO BID, (Reported) Entered as Reported by: JAN BLACKMON on 06/30/21 122 Multivitamin/Iron/Folic Acid (Centrum Adults Tablet) 1 Each Tablet, 1 EACH PO DAILY, (Reported) Entered as Reported by: JAN BLACKMON on 06/30/21 122 Mycophenolate Mofetil (Cellcept) 500 Mg Tablet, 500 MG PO BID, (Reported) Entered as Reported by: JAN BLACKMON on 06/30/21 122 Ondansetron (Ondansetron Odt) 4 Mg Tab.rapdis, 4 MG SL Q4H PRN for NAUSEA/VOMITING Prescribed by: ANASTASIA VU on 12/31/22 1405 Oxybutynin Chloride (Oxybutynin Chloride) 5 Mg Tablet, 2.5 MG PO DAILY, (Reported) Entered as Reported by: JAN BLACKMON on 06/30/21 1222 Pantoprazole Sodium (Protonix) 40 Mg Tablet.dr, 40 MG PO DAILY Prescribed by: ANASTASIA VU on 12/31/22 1405 Potassium Chloride (Potassium Chloride) 10 Meq Tab.er.prt, 10 MEQ PO DAILY, (Reported) Entered as Reported by: JAN BLACKMON on 06/30/21 1220 Venlafaxine HCl (Venlafaxine HCl ER) 150 Mg Tab.er.24, 150 MG PO DAILY, (Reported) Entered as Reported by: JAN BLACKMON on 06/30/21 1220 [paxlovid] , 150 MG PO ONCE Prescribed by: TAMMIE SINGH on 07/05/21 1556 Review of Systems Review of Systems Constitutional: No chills, No diaphoresis, No fever; malaise, weakness EENTM: No Double Vision, No Eye Pain Cardiovascular: Denies See HPI Gastrointestinal: Abdominal Pain; Denies Diarrhea; Nausea, Vomiting Genitourinary: Denies Burning, Denies Discharge, Denies Drainage, Denies Frequency Musculoskeletal: No back pain, No joint pain Skin: No change in color All Other Systems Reviewed Negative Unless Noted: Yes Past Oeejzat-Jlkpbp-Mrxhuu Hx Patient Social History Tobacco Use?: No Substance use?: No Alcohol Use?: No Pt feels they are or have been: No Immunizations Up To Date Tetanus Booster (TDap): Unknown PED Vaccines UTD: Yes First/Initial COVID19 Vaccinat: AUGUST 2020 Second COVID19 Vaccination [place]: SEPTEMBER 2020 Third COVID19 Vaccination Date: AUGUST 2020 Seasonal Allergies Seasonal Allergies: Yes Past Medical History Surgery/Hospitalization HX: HITAL HERNIA REPAIR, B/P, GB Surgeries: Yes (ORAL SURGERY) Gallbladder Respiratory: Yes (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 BASELINE CREATININE 1.7 ON AVERAGE) Renal Failure Gastrointestinal: Yes Gastroesophageal Reflux Musculoskeletal: Yes (POLYMYOSITIS) Endocrine: Yes (OVERLAP SYNDROME) Hypothyroidsim HEENT: No Loss of Vision: Denies Hearing Impairment: Denies Cancer: No Psychosocial: Yes Anxiety, Depression Integumentary: No Blood Disorders: Yes (ANEMIA) Adverse Reaction/Blood Tranf: No Family Medical History No Pertinent Family Hx Physical Exam Vital Signs Vital Signs - First Documented 12/31/22 12:10 Temp 37.0 Pulse 81 Resp 18 B/P (MAP) 173/113 (133) Pulse Ox 97 Capillary Refill : Less Than 3 Seconds Height/Weight/BMI Height: 5'1.00" Weight: 169lbs. 4.8oz. [id number]; 30.00 BMI Method:Stated General Appearance: WD/WN, no apparent distress HEENT: PERRL/EOMI, normal ENT inspection, TMs normal, pharynx normal Neck: non-tender, full range of motion, supple, normal inspection Respiratory: chest non-tender, lungs clear, normal breath sounds, no respiratory distress, no accessory muscle use Cardiovascular: regular rate, rhythm, no edema, no gallop, no JVD Gastrointestinal: normal bowel sounds, soft, no organomegaly, tenderness (Epigastric tenderness on palpation. Normal bowel sounds throughout.) Extremities: normal range of motion, non-tender, normal inspection, no pedal edema Back: normal inspection, no CVA tenderness, no vertebral tenderness Skin: normal color, warm/dry Progress/Results/Core Measures Results/Orders Lab Results Laboratory Tests Test 12/31/22 12:18 12/31/22 12:45 Range/Units White Blood Count 12.3 H 4.3-11.0 10^3/uL Red Blood Count 5.83 H 3.80-5.11 10^6/uL Hemoglobin 16.5 H 11.5-16.0 g/dL Hematocrit 50 35-52 % Mean Corpuscular Volume 86 80-99 fL Mean Corpuscular Hemoglobin 28 25-34 pg Mean Corpuscular Hemoglobin Concent 33 32-36 g/dL Red Cell Distribution Width 13.8 10.0-14.5 % Platelet Count 371 130-400 10^3/uL Mean Platelet Volume 10.0 9.0-12.2 fL Immature Granulocyte % (Auto) 0 % Neutrophils (%) (Auto) 61 42-75 % Lymphocytes (%) (Auto) 29 12-44 % Monocytes (%) (Auto) 9 0-12 % Eosinophils (%) (Auto) 0 0-10 % Basophils (%) (Auto) 1 0-10 % Neutrophils # (Auto) 7.5 1.8-7.8 10^3/uL Lymphocytes # (Auto) 3.6 1.0-4.0 10^3/uL Monocytes # (Auto) 1.1 H 0.0-1.0 10^3/uL Eosinophils # (Auto) 0.0 0.0-0.3 10^3/uL Basophils # (Auto) 0.1 0.0-0.1 10^3/uL Immature Granulocyte # (Auto) 0.1 0.0-0.1 10^3/uL Sodium Level 145 135-145 MMOL/L Potassium Level 3.8 3.6-5.0 MMOL/L Chloride Level 108 H 98-107 MMOL/L Carbon Dioxide Level 22 21-32 MMOL/L Anion Gap 15 H 5-14 MMOL/L Blood Urea Nitrogen 18 7-18 MG/DL Creatinine 1.98 H 0.60-1.30 MG/DL Estimat Glomerular Filtration Rate 27 BUN/Creatinine Ratio 9 Glucose Level 134 H 70-105 MG/DL Calcium Level 10.8 H 8.5-10.1 MG/DL Corrected Calcium 10.4 H 8.5-10.1 MG/DL Magnesium Level 2.2 1.6-2.4 MG/DL Total Bilirubin 0.5 0.1-1.0 MG/DL Aspartate Amino Transf (AST/SGOT) 28 5-34 U/L Alanine Aminotransferase (ALT/SGPT) 18 0-55 U/L Alkaline Phosphatase 104 40-136 U/L Troponin I < 0.028 <0.028 NG/ML Total Protein 7.3 6.4-8.2 GM/DL Albumin 4.5 3.2-4.5 GM/DL Lipase 52 8-78 U/L Urine Color YELLOW Urine Clarity CLEAR Urine pH 5.5 5-9 Urine Specific Naper >=1.030 1.016-1.022 Urine Protein 3+ H NEGATIVE Urine Glucose (UA) NEGATIVE NEGATIVE Urine Ketones TRACE H NEGATIVE Urine Nitrite NEGATIVE NEGATIVE Urine Bilirubin 1+ H NEGATIVE Urine Urobilinogen 1.0 < = 1.0 MG/DL Urine Leukocyte Esterase 2+ H NEGATIVE Urine RBC (Auto) TRACE-I H NEGATIVE Urine RBC NONE /HPF Urine WBC 25-50 H /HPF Urine Squamous Epithelial Cells RARE /HPF Urine Crystals NONE /LPF Urine Bacteria FEW H /HPF Urine Casts NONE /LPF Urine Mucus NEGATIVE /LPF Urine Culture Indicated YES My Orders Orders - ENMANUEL MERRITT PA Cbc With Automated Diff (12/31/22 12:27) Comprehensive Metabolic Panel (12/31/22 12:27) Lipase (12/31/22 12:27) Magnesium (12/31/22 12:27) Troponin I Lamberto (12/31/22 12:27) Ekg Tracing (12/31/22 12:27) Chest 1 View, Ap/Pa Only (12/31/22 12:27) Ondansetron Injection (Zofran Injectio (12/31/22 12:30) Pantoprazole Injection (Protonix Injecti (12/31/22 12:30) Ua Culture If Indicated (12/31/22 12:31) Ct Abdomen/Pelvis Wo (12/31/22 12:27) Ns Iv 1000 Ml (Sodium Chloride 0.9%) (12/31/22 12:59) Urine Culture (12/31/22 12:45) Ceftriaxone Iv/Im (Rocephin Iv/Im) (12/31/22 13:35) Medications Given in ED Current Medications Medications Dose Ordered Sig/Shannan Route Start Time Stop Time Status Last Admin Dose Admin Ondansetron HCl 4 mg ONCE ONCE IVP 12/31/22 12:30 12/31/22 12:31 DC 12/31/22 12:49 4 MG Pantoprazole 40 mg ONCE ONCE IV 12/31/22 12:30 12/31/22 12:31 DC 12/31/22 12:49 40 MG Vital Signs/I&O 12/31/22 12/31/22 12:10 14:06 Temp 37.0 37.0 Pulse 81 74 Resp 18 18 B/P (MAP) 173/113 (133) 168/90 Pulse Ox 97 97 Blood Pressure Mean: 133 Comment Sinus rhythm with occasional ventricular premature complexes, T wave normality in lateral leads. 81 bpm, QRS duration 102 MS, QTc 439 MS Departure Communication (PCP) Reviewed previous ER visits, H&P, lab testing. Differential diagnosis, gastritis, peptic ulcer disease, pericarditis, ACS, pancreatitis. Pain started on Tuesday after eating a sandwich. Pain does not radiate. Nausea with dry heaving. 1 episode of vomiting. Patient has not been able to eat as much over the past 2 days becasue of the dry heaving. She has not been able to take her blood pressure medication over the past 2 days. Patient denies of any specific chest pain or shortness of breath. She does have a history of autoimmune disease. Receive rituximib injection. She has been taking Pepto with Tums with some improvement. Patient with a history of hiatal hernia repair. History of cholecystectomy. General lab work, EKG, troponin, chest x-ray, urinalysis and CT abdomen pelvis was ordered. CBC showed a slight elevated white blood count of 12. Normal hemoglobin and platelets. Chemistry showed a creatinine of 1.98 GFR 27. Creatinine in June was 1.43. Baseline average 1.7. Near close to her normal however slight change. could be result of not drinking or eating as much. normal liver enzymes, lipase, troponin. EKG showed sinus rhythm with occasional ventricular premature complexes. Did have some T wave inversions in V3 and V6 which appears similar to previous EKGs. She received Protonix, Zofran and started on liter of fluid. She denies chest pain or shortness of breath. Does not appear fluid overloaded. No appreciation of lower leg swelling. Her blood pressure has been staying around the 150 systolic. She does not necessarily require IV BP medication at this time. Patient does not appear toxic or septic. Her urinalysis did test positive for UTI. She did receive Rocephin 1g. CT abdomen pelvis without contrast bc of kidney function did not show any acute abnormality. Suspect this is more gastritis versus ulcer. Did discussed admission versus outpatient at this time for the change in kidney fucntion. My only concern if she continues to not eat or drink this could potentially worsen her kidney function. She did receive a liter of fluid here which would help. Did discuss with her and daughter at bedside the importance of drinking fluids. They felt like she could manage this at home at this time versus admission. I do think GI upper EGD would be further warranted if this pain progress. We will switch Pepcid to Protonix. Continue with Mylanta and Tums as needed. Avoid fatty foods or spicy foods. Discussed clear liquids diet for the next 3 days. this does not appear to be cardiac. Recommend recheck with your PCP in 2 days for reevaluation and lab work. If continue not wanting to eat or drink with continued weakness needs to return back to ED for admission. Family agree with this plan of action Impression Primary Impression: Upper abdominal pain Additional Impressions: CKD (chronic kidney disease) UTI (urinary tract infection) Disposition: 01 HOME, SELF-CARE Condition: Stable Departure-Patient Inst. Decision time for Depature: 13:36 Referrals: ANALI MENJIVAR MD (PCP/Family) Primary Care Physician FELICE RAI DO Patient Instructions: Gastritis (DC) Add. Discharge Instructions: Recommend clear liquids. Protonix for upper abdominal pain. May continue with Tums or Mylanta. Recommend following up with general surgery for further evaluation upper EGD may be warranted. If any worsening symptoms such as dehydration, weakness to return back to ED All discharge instructions reviewed with patient and/or family. Voiced understanding. Scripts Cephalexin (Cephalexin) 500 Mg Tablet 500 MG PO BID for 7 Days, #14 TAB Prov: ENMANUEL MERRITT 12/31/22 Ondansetron (Ondansetron Odt) 4 Mg Tab.rapdis 4 MG SL Q4H PRN for NAUSEA/VOMITING, #8 TAB Prov: ENMANUEL MERRITT 12/31/22 Pantoprazole Sodium (Protonix) 40 Mg Tablet.dr 40 MG PO DAILY, #20 TAB Prov: ENMANUEL MERRITT 12/31/22 ENMANUEL MERRITT Dec 31, 2022 12:31
[2022-12-31 12:36] LABS: BASOPHILS # (AUTO) 0.1 10^3/uL (0.0-0.1); BASOPHILS % (AUTO) 1 % (0-10); EOSINOPHILS % (AUTO) 0 % (0-10); HEMATOCRIT 50 % (35-52); HEMOGLOBIN 16.5 g/dL (11.5-16.0); LYMPHOCYTES # (AUTO) 3.6 10^3/uL (1.0-4.0); LYMPHOCYTES % (AUTO) 29 % (12-44); MEAN CORPUSCULAR HEMOGLOBIN 28 pg (25-34); MEAN CORPUSCULAR HGB CONC 33 g/dL (32-36); MEAN CORPUSCULAR VOLUME 86 fL (80-99); MONOCYTES # (AUTO) 1.1 10^3/uL (0.0-1.0); MONOCYTES % (AUTO) 9 % (0-12); NEUTROPHILS # (AUTO) 7.5 10^3/uL (1.8-7.8); NEUTROPHILS % (AUTO) 61 % (42-75); PLATELET COUNT 371 10^3/uL (130-400); WHITE BLOOD COUNT 12.3 10^3/uL (4.3-11.0)
[2022-12-31 12:38] LABS: ALBUMIN 4.5 GM/DL (3.2-4.5)
[2022-12-31 12:39] LABS: CHLORIDE 108 MMOL/L (98-107); POTASSIUM 3.8 MMOL/L (3.6-5.0); SODIUM 145 MMOL/L (135-145)
[2022-12-31 12:40] LABS: CALCIUM 10.8 MG/DL (8.5-10.1)
[2022-12-31 12:41] LABS: GLUCOSE 134 MG/DL (70-105); TOTAL PROTEIN 7.3 GM/DL (6.4-8.2)
[2022-12-31 12:42] LABS: CARBON DIOXIDE 22 MMOL/L (21-32)
[2022-12-31 12:43] LABS: BILIRUBIN,TOTAL 0.5 MG/DL (0.1-1.0)
[2022-12-31 12:44] LABS: ALKALINE PHOSPHATASE 104 U/L (40-136)
[2022-12-31 12:45] LABS: CREATININE SERUM 1.98 MG/DL (0.60-1.30); GFR ESTIMATED 27
[2022-12-31 12:46] LABS: BUN/CREATININE RATIO 9
[2022-12-31 12:48] LABS: ALANINE AMINOTRANSFERASE 18 U/L (0-55); MAGNESIUM 2.2 MG/DL (1.6-2.4)
[2022-12-31 12:49] LABS: LIPASE 52 U/L (8-78)
[2022-12-31 12:52] LABS: CLARITY,URINE CLEAR; COLOR,URINE YELLOW; GLUCOSE, URINE (UA) NEGATIVE (NEGATIVE); KETONES,URINE TRACE (NEGATIVE); LEUKOCYTE ESTERASE ,URINE 2+ (NEGATIVE); NITRITE,URINE NEGATIVE (NEGATIVE); PH,URINE 5.5 (5-9); PROTEIN,URINE 3+ (NEGATIVE)
--- NOTE | 2022-12-31 12:57 | Diagnostic Imaging Report ---
INDICATION: Chest pain. EXAMINATION: Chest 12/31/2022 COMPARISON: 07/05/2021 FINDINGS: The cardiomediastinal silhouette is unremarkable. The pulmonary vasculature is within normal limits. The lungs and pleural spaces are clear. IMPRESSION: No evidence of an acute cardiopulmonary process. Dictated by: Dictated on workstation # [id number]
[2022-12-31] MEDS ORDERED: NS IV 1000 ML 1,000 ML IV STA (12:59)
[2022-12-31 13:04] LABS: BACTERIA,URINE FEW /HPF; BILIRUBIN,URINE 1+ (NEGATIVE); SQUAMOUS EPITHELIAL CELL,UR RARE /HPF; WBC,URINE 25-50 /HPF
--- NOTE | 2022-12-31 13:14 | Diagnostic Imaging Report ---
PROCEDURE: CT abdomen and pelvis without contrast. TECHNIQUE: Multiple contiguous axial images were obtained through the abdomen and pelvis without the use of intravenous contrast. Auto Exposure Controls were utilized during the CT exam to meet ALARA standards for radiation dose reduction. INDICATION: Nausea and epigastric pain. COMPARISON: No priors for direct comparison. Its correlated with overlapped levels obtained at chest CT of 10/04/2018. FINDINGS: Lung bases are nonacute. The gallbladder is surgically absent. No pathological dilatation of the bile ducts. The liver is stable and unremarkable. The EG junction is unremarkable. The lower thoracic esophagus is nondilated. There is a fundal gastric diverticulum posteriorly, chronic, without evidence for its inflammation. Stomach, duodenum, small and large bowel are nondilated. No bowel obstruction. No perienteric or pericolonic edema. No segmental enteric inflammatory changes. There is a fatty umbilical hernia, noninflamed. The pancreas and peripancreatic fat are unremarkable. There is no hydroureteronephrosis. No perinephric or periureteric edema. There is no appendicitis or diverticulitis. There is a left ovarian cyst measuring 2.5 cm. The uterus and adnexa showed no acute-appearing abnormality. The urinary bladder is unopacified, grossly unremarkable. No free air or pneumatosis, abscess, hematoma, or other acute fluid collection. There is no ascites. There are no findings of intra or extraperitoneal hemorrhage. Peripheral calcifications associated with the right renal cyst are unchanged where visualized on the prior measuring 1.8 cm. The atherosclerotic aorta is nonaneurysmal. IMPRESSION: Small left ovarian cyst showed no appreciable complexity at 2.5 cm. No acute hepatobiliary, pancreatic, or urinary tract pathology. No bowel obstruction, inflammatory process, hemorrhage, or acute findings. Fatty umbilical hernia, noninflamed. Gastric diverticulum, noninflamed. Dictated by: Dictated on workstation # [id number]
[2022-12-31] MEDS ORDERED: cefTRIAXone IV/IM 1,000 MG in NS (IVPB) 50 ML IV STA (13:35)
[2022-12-31] MEDS ORDERED: ONDA4TAB11 SL ×2 (13:37→14:05)
[2022-12-31] MEDS ORDERED: CEPH500T PO ×2 (13:37→14:05)
[2022-12-31] MEDS ORDERED: PANT40TA2 PO ×2 (13:37→14:05)
[2022-12-31 14:06] VITALS: BP 168/90
== END 2022-12-31 14:08 | disposition home or self-care (01) ==
LOC: EDUNIT# 12:06 → ER 12:08
DX: R10.13 Epigastric pain (principal); R11.2 Nausea with vomiting, unspecified; N39.0 Urinary tract infection, site not specified; I12.9 Hypertensive chronic kidney disease with stage 1 through stage 4 chronic kidney disease, or unspecified chronic kidney disease; N18.30 Chronic kidney disease, stage 3 unspecified; Z79.899 Other long term (current) drug therapy; Z90.49 Acquired absence of other specified parts of digestive tract; Z79.620 Long term (current) use of immunosuppressive biologic
CPT/HCPCS: 36415; 71045; 74176; 80053; 81000; 83690; 83735; 84484; 85025; 87077; 87088; 87186; 93005

== ENCOUNTER 2023-01-21 12:28 | Inpatient (IN) | payer MEDICARE, OTHER ==
[~2023-01-21] VITALS: Ht 154.9 cm; Wt 78.9 kg
[~2023-01-21 12:28] MED LIST changes: +CEPH500T PO; +ONDA4TAB11 SL; +PANT40TA2 PO
[2023-01-21] MEDS ORDERED: NS IV 1000 ML 1,000 ML IV STA ×2 (12:59→14:34)
[2023-01-21 13:06] LABS: BASOPHILS # (AUTO) 0.1 10^3/uL (0.0-0.1); BASOPHILS % (AUTO) 1 % (0-10); EOSINOPHILS # (AUTO) 0.1 10^3/uL (0.0-0.3); EOSINOPHILS % (AUTO) 1 % (0-10); HEMATOCRIT 42 % (35-52); HEMOGLOBIN 13.7 g/dL (11.5-16.0); LYMPHOCYTES # (AUTO) 2.8 10^3/uL (1.0-4.0); LYMPHOCYTES % (AUTO) 32 % (12-44); MEAN CORPUSCULAR HEMOGLOBIN 29 pg (25-34); MEAN CORPUSCULAR HGB CONC 33 g/dL (32-36); MEAN CORPUSCULAR VOLUME 87 fL (80-99); MONOCYTES # (AUTO) 1.3 10^3/uL (0.0-1.0); MONOCYTES % (AUTO) 15 % (0-12); NEUTROPHILS # (AUTO) 4.5 10^3/uL (1.8-7.8); NEUTROPHILS % (AUTO) 51 % (42-75); PLATELET COUNT 302 10^3/uL (130-400); WHITE BLOOD COUNT 8.8 10^3/uL (4.3-11.0)
--- NOTE | 2023-01-21 13:09 | ED Neurological Problem ---
General Chief Complaint: Neuro-Stroke Like Symptoms Stated Complaint: HIGH BLOOD PRESSURE | SLURRED SPEECH | OFF BALANCE Nursing Triage Note: TO ROOM 01 WITH COMPLAINTS OF WAKING UP NOT FEELING RIGHT. STATES LEFT LEG WOULD NOT WORK RIGHT AND HAD SOME TROUBLE SPEAKING. WENT TO WORK AND WAS RUNNING INTO THINGS. PT STATES SHE WENT TO BED AT 1100 LAST NIGHT AND WAS NORMAL. Source: patient, family (daughter) Exam Limitations: no limitations History of Present Illness Date Seen by Provider: Jan 21, 2023 Time Seen by Provider: 12:38 Initial Comments Patient is a 67-year-old female who presents to the emergency department with a chief complaint of her left leg not functioning properly. Patient states that she went to bed "normal" at 11 PM last night. No complaints of illness. She woke up at 630 and states she thought her leg was kind of weak. She was able to get up and walk around, no falls reported. She went on to work. She walked int o a desk several times and was not able to be very coordinated at work and therefore decided to call her daughter and come to the emergency room. Daughter states that when she spoke to her on the phone her speech sounded slurred. Patient does not take any medications that would cause the symptoms. 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 She does have doctors to follow her at in [place]. She is not on any blood thinners, she does not take daily baby aspirin. She denies headache, vision changes. She is having no trouble swallowing. She denies any sensory disturbance. She does feel weak in her left leg and is slightly weak on exam in the left arm. Patient states she is normally very hypertensive however at triage vitals her systolic is 100. She is not tachycardic. She denies shortness of breath or chest pain. She did have a cardiac evaluation within the last 2 weeks. Timing/Duration: 4-6 hours Severity: mild Associated Symptoms: slurred speech, trouble walking Allergies and Home Medications Allergies Coded Allergies: No Known Drug Allergies (Verified , 09/01/07) Patient Home Medication List Home Medication List Reviewed: Yes Albuterol Sulfate (Ventolin Hfa) 18 Gm Hfa.aer.ad, 18 GM INH Q6H Prescribed by: ANALI MENJIVAR on 1/5/22 0918 Amlodipine Besylate (Amlodipine Besylate) 5 Mg Tablet, 5 MG PO DAILY, (Reported) Entered as Reported by: JNA BLACKMON on 06/30/21 122 Atorvastatin Calcium (Atorvastatin Calcium) 20 Mg Tablet, 20 MG PO DAILY, (Reported) Entered as Reported by: CARL FU on 10/02/18 1121 Azithromycin (Azithromycin) 250 Mg Tablet, 250 MG PO DAILY Prescribed by: ANALI MENJIVAR on 07/01/21917 Cefdinir (Cefdinir) 300 Mg Capsule, 300 MG PO BID Prescribed by: ANALI MENJIVAR on 07/01/21917 Cephalexin (Cephalexin) 500 Mg Tablet, 500 MG PO BID Prescribed by: ANASTASIA VU on 12/31/22 1405 Clonidine HCl (Clonidine HCl) 0.1 Mg Tablet, 0.1 MG PO HS, (Reported) Entered as Reported by: JAN BLACKMON on 06/30/21 122 Famotidine (Famotidine) 40 Mg Tablet, 40 MG PO DAILY, (Reported) Entered as Reported by: JAN BLACKMON on 06/30/21 122 Gabapentin (Neurontin) 300 Mg Capsule, 300 MG PO HS, (Reported) Entered as Reported by: JAN BLACKMON on 06/30/21 1220 Lactobac Cmb #3/Fos/Pantethine (Probiotic & Acidophilus Cap) 1 Each Capsule, 1 EACH PO TID Prescribed by: ANALI MENJIVAR on 07/01/21917 Levothyroxine Sodium (Levothyroxine Sodium) 50 Mcg Tablet, 50 MCG PO DAILY, (Reported) Entered as Reported by: JAN BLACKMON on 06/30/21 122 Loratadine (Claritin) 10 Mg Tab.rapdis, 10 MG PO DAILY, (Reported) Entered as Reported by: JAN BLACKMON on 06/30/21 122 Losartan Potassium (Losartan Potassium) 50 Mg Tablet, 50 MG PO DAILY, (Reported) Entered as Reported by: JAN BLACKMON on 06/30/21 122 Metoprolol Succinate (Metoprolol Succinate) 50 Mg Tab.er.24h, 50 MG PO BID, (Reported) Entered as Reported by: JAN BLACKMON on 06/30/21 122 Multivitamin/Iron/Folic Acid (Centrum Adults Tablet) 1 Each Tablet, 1 EACH PO DAILY, (Reported) Entered as Reported by: JAN BLACKMON on 06/30/21 1220 Mycophenolate Mofetil (Cellcept) 500 Mg Tablet, 500 MG PO BID, (Reported) Entered as Reported by: JAN BLACKMON on 06/30/21 1220 Ondansetron (Ondansetron Odt) 4 Mg Tab.rapdis, 4 MG SL Q4H PRN for NAUSEA/VOMITING Prescribed by: ANASTASIA VU on 12/31/22 1405 Oxybutynin Chloride (Oxybutynin Chloride) 5 Mg Tablet, 2.5 MG PO DAILY, (Reported) Entered as Reported by: JAN BLACKMON on 06/30/21 1222 Pantoprazole Sodium (Protonix) 40 Mg Tablet.dr, 40 MG PO DAILY Prescribed by: NAASTASIA VU on 12/31/22 1405 Potassium Chloride (Potassium Chloride) 10 Meq Tab.er.prt, 10 MEQ PO DAILY, (Reported) Entered as Reported by: JAN BLACKMON on 06/30/21 1220 Venlafaxine HCl (Venlafaxine HCl ER) 150 Mg Tab.er.24, 150 MG PO DAILY, (Reported) Entered as Reported by: JAN BLACKMON on 06/30/21 1220 [paxlovid] , 150 MG PO ONCE Prescribed by: TAMMIE SINGH on 07/05/21 1556 Review of Systems Review of Systems Constitutional: see HPI Eyes: No Symptoms Reported Ears, Nose, Mouth, Throat: no symptoms reported Respiratory: no symptoms reported Cardiovascular: no symptoms reported Gastrointestinal: no symptoms reported Genitourinary: no symptoms reported Musculoskeletal: no symptoms reported Skin: no symptoms reported Psychiatric/Neurological: Denies Headache; Weakness (Left leg) All Other Systems Reviewed Negative Unless Noted: Yes Past Rvqwmpk-Dlthbq-Qxayir Hx Patient Social History Tobacco Use?: No Substance use?: No Alcohol Use?: No Immunizations Up To Date Tetanus Booster (TDap): Unknown PED Vaccines UTD: Yes First/Initial COVID19 Vaccinat: AUGUST 2020 Second COVID19 Vaccination [place]: SEPTEMBER 2020 Third COVID19 Vaccination Date: AUGUST 2020 Seasonal Allergies Seasonal Allergies: Yes Past Medical History Surgery/Hospitalization HX: [facility] REPAIR, B/P, GB Surgeries: Yes (ORAL SURGERY) Gallbladder Respiratory: Yes (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 BASELINE CREATININE 1.7 ON AVERAGE) Renal Failure Gastrointestinal: Yes Gastroesophageal Reflux Musculoskeletal: Yes (POLYMYOSITIS) Endocrine: Yes (OVERLAP SYNDROME) Hypothyroidsim HEENT: No Loss of Vision: Denies Hearing Impairment: Denies Cancer: No Psychosocial: Yes Anxiety, Depression Integumentary: No Blood Disorders: Yes (ANEMIA) Adverse Reaction/Blood Tranf: No Family Medical History No Pertinent Family Hx Physical Exam Vital Signs Vital Signs - First Documented 01/21/23 12:35 Temp 36.3 Pulse 59 Resp 16 B/P (MAP) 100/57 (71) Pulse Ox 98 O2 Delivery Room Air Capillary Refill : Less Than 3 Seconds Height, Weight, BMI Height: 5'1.00" Weight: 169lbs. 4.8oz. 76.252419pl; 32.00 BMI Method:Stated General Appearance: WD/WN, no apparent distress HEENT: PERRL/EOMI, pharynx normal, other (tongue is midline) Neck: non-tender, full range of motion Respiratory: lungs clear, normal breath sounds, no respiratory distress, no accessory muscle use Cardiovascular: regular rate, rhythm, no murmur Peripheral Pulses: 2+ Radial Pulses (R), 2+ Radial Pulses (L) Gastrointestinal: normal bowel sounds, non tender, soft Extremities: normal range of motion, non-tender, normal inspection, no pedal edema, no calf tenderness, normal capillary refill Neurologic/Psychiatric: alert, normal mood/affect, oriented x 3, motor weakness; No sensory deficit Crainal Nerves: normal hearing, PERRL; No abnormal gag reflex; abnormal speech; No facial asymmetry, No facial droop, No facial paresthesias, No facial weakness, No gaze palsy, No hearing deficit (R), No hearing deficit (L), No tongue deviation to R, No tongue deviation to L Coordination/Gait: negative Romberg's sign, ABN nose to finger (L) Motor/Sensory: no sensory deficit, no pronator drift; No weak motor strength RUE; weak motor strength LUE (4/5); No weak motor strength RLE; weak motor strength LLE (4+/5) Skin: normal color, warm/dry Stroke NIH Stroke Scale Assessment Level of Consciousness: 0=Alert (0), Level of Consciousness-Questions: 0=Answers both month/age (0), LOC Commands: 0=Performs both tasks (0), Visual Henderson: 0=No visual loss (0), Facial Movement (Facial Paresis): 0=Normal symmetrical mnt (0), Motor Function-Arms Right: 0=No drift (0), Motor Funct ion-Arms Left: 0=No drift (0), Motor Function-Legs Right: 0=No drift (0), Motor Function-Legs Left: 0=No drift (0), Limb Ataxia: 2=Present in two limbs (2), Sensory: 0=Normal:no loss (0), Best Language: 0=No aphasia (0), Dysarthria: 1=Mild to moderate loss (1), Extinction & Inattention: 0=No abnormality (0), Total: Focused Exam Lactate Level 01/21/23 13:17: Lactic Acid Level 1.92 Lactic Acid Level Laboratory Tests Test 01/21/23 13:17 Lactic Acid Level 1.92 MMOL/L (0.50-2.00) Progress/Results/Core Measures Results/Orders Lab Results Laboratory Tests Test 01/21/23 12:50 01/21/23 13:06 01/21/23 13:17 Range/Units White Blood Count 8.8 4.3-11.0 10^3/uL Red Blood Count 4.76 3.80-5.11 10^6/uL Hemoglobin 13.7 11.5-16.0 g/dL Hematocrit 42 35-52 % Mean Corpuscular Volume 87 80-99 fL Mean Corpuscular Hemoglobin 29 25-34 pg Mean Corpuscular Hemoglobin Concent 33 32-36 g/dL Red Cell Distribution Width 13.6 10.0-14.5 % Platelet Count 302 130-400 10^3/uL Mean Platelet Volume 10.0 9.0-12.2 fL Immature Granulocyte % (Auto) 0 % Neutrophils (%) (Auto) 51 42-75 % Lymphocytes (%) (Auto) 32 12-44 % Monocytes (%) (Auto) 15 H 0-12 % Eosinophils (%) (Auto) 1 0-10 % Basophils (%) (Auto) 1 0-10 % Neutrophils # (Auto) 4.5 1.8-7.8 10^3/uL Lymphocytes # (Auto) 2.8 1.0-4.0 10^3/uL Monocytes # (Auto) 1.3 H 0.0-1.0 10^3/uL Eosinophils # (Auto) 0.1 0.0-0.3 10^3/uL Basophils # (Auto) 0.1 0.0-0.1 10^3/uL Immature Granulocyte # (Auto) 0.0 0.0-0.1 10^3/uL Prothrombin Time 13.2 12.2-14.7 SEC INR Comment 1.0 0.8-1.4 Activated Partial Thromboplast Time 24 24-35 SEC D-Dimer 0.33 0.00-0.49 UG/ML Sodium Level 143 135-145 MMOL/L Potassium Level 3.6 3.6-5.0 MMOL/L Chloride Level 108 H 98-107 MMOL/L Carbon Dioxide Level 26 21-32 MMOL/L Anion Gap 9 5-14 MMOL/L Blood Urea Nitrogen 20 H 7-18 MG/DL Creatinine 2.70 H 0.60-1.30 MG/DL Estimat Glomerular Filtration Rate 19 BUN/Creatinine Ratio 7 Glucose Level 87 70-105 MG/DL Calcium Level 9.9 8.5-10.1 MG/DL Corrected Calcium 9.9 8.5-10.1 MG/DL Total Bilirubin 0.3 0.1-1.0 MG/DL Aspartate Amino Transf (AST/SGOT) 19 5-34 U/L Alanine Aminotransferase (ALT/SGPT) 10 0-55 U/L Alkaline Phosphatase 80 40-136 U/L Troponin I < 0.028 <0.028 NG/ML Total Protein 6.1 L 6.4-8.2 GM/DL Albumin 4.0 3.2-4.5 GM/DL Glucometer 77 70-110 MG/DL Lactic Acid Level 1.92 0.50-2.00 MMOL/L My Orders Orders - JULIANNE VASQUEZ MD Cbc With Automated Diff (01/21/23 12:59) Protime With Inr (01/21/23 12:59) Partial Thromboplastin Time (01/21/23 12:59) Comprehensive Metabolic Panel (01/21/23 12:59) Fibrin Degradation Products (01/21/23 12:59) Troponin I Lamberto (01/21/23 12:59) Ua Culture If Indicated (01/21/23 12:59) Chest 1 View, Ap/Pa Only (01/21/23 12:59) Nothing By Mouth (01/21/23 Lunch) Accucheck Stat ONCE (01/21/23 12:59) Ed Iv/Invasive Line Start (01/21/23 12:59) Ed Iv/Invasive Line Start (01/21/23 12:59) Vital Signs Stroke Patient Q15M (01/21/23 12:59) Ct Head Wo-R/O Stroke (01/21/23 12:59) O2 (01/21/23 12:59) Monitor-Rhythm Ecg Trace Only (01/21/23 12:59) Dysphagia Screening Tool Q10MX1 (01/21/23 12:59) Post Thrombolytic Adminstratio (01/21/23 12:59) Lipid Panel (01/22/23 06:00) Lactic Acid Analyzer (01/21/23 12:59) Ns Iv 1000 Ml (Sodium Chloride 0.9%) (01/21/23 12:59) Ekg Tracing (01/21/23 13:09) Mri Brain W/O Contrast (01/21/23 13:43) Mra Head W/O Contrast (01/21/23 13:43) Ed Admission (Communication) (01/21/23 14:34) Ns Iv 1000 Ml (Sodium Chloride 0.9%) (01/21/23 14:34) Clopidogrel Tablet (Plavix Tablet) (01/21/23 14:45) Aspirin Chewable Tablet (Aspirin Chewabl (01/21/23 14:45) Medications Given in ED Current Medications Medications Dose Ordered Sig/Shannan Route Start Time Stop Time Status Last Admin Dose Admin Aspirin 81 mg ONCE ONCE PO 01/21/23 14:45 01/21/23 14:46 DC 01/21/23 14:50 81 MG Clopidogrel Bisulfate 300 mg ONCE ONCE PO 01/21/23 14:45 01/21/23 14:46 DC 01/21/23 14:50 300 MG Vital Signs/I&O 01/21/23 01/21/23 12:35 12:35 Temp 36.3 Pulse 59 Resp 16 B/P (MAP) 100/57 (71) Pulse Ox 98 98 O2 Delivery Room Air Room Air Blood Pressure Mean: 71 Admisison Planning May Need Admission (Planning): 13:55 Progress Progress Note : Time: 13:52 Initial ECG Impression Date: Jan 21, 2023 Initial ECG Impression Time: 09:30 Initial ECG Rate: 84 Initial ECG Rhythm: Normal Sinus Initial ECG Intervals MT 160 QRS [address]Tc [address] elevation or depression; no ectopy Diagnostic Imaging Diagonstic Imaging: Xray Comments [facility], [place], [place] NAME: ADDY SIMMONS [facility] REC#: [id number] PT STATUS: REG ER : 1955 PHYSICIAN: JULIANNE VASQUEZ MD ADMIT DATE: 01/21/23/ER Draft Date of Exam:01/21/23 CHEST 1 VIEW, AP/PA ONLY INDICATION: Difficulty speaking. COMPARISON: 12/31/2022. FINDINGS: The lungs are clear. There is no failure, effusion, or pneumothorax. IMPRESSION: Normal frontal chest. Dictated on workstation # [id number] Dict: 01/21/23 1317 Trans: 01/21/23 1319 [id number] Interpreted by: WHITNEY VELOZ Electronically signed by: Diagonstic Imaging: CT Plain Films/CT/US/NM/MRI: head Comments [facility], [place], [place] NAME: ADDY SIMMONS [facility] REC#: [id number] PT STATUS: REG ER : 1955 PHYSICIAN: JULIANNE VASQUEZ MD ADMIT DATE: 01/21/23/ER Signed Date of Exam:01/21/23 CT HEAD WO-R/O STROKE EXAMINATION: CT head without contrast. TECHNIQUE: Multiple contiguous axial images were obtained through the brain without the use of intravenous contrast. All CT scans use one or more of the following dose optimizing techniques: automated exposure control, MA and/or KvP adjustment based on patient size and exam type or iterative reconstruction. HISTORY: Left leg weakness. Difficulty speaking. COMPARISON: None available. FINDINGS: No large acute territorial ischemia, mass, or hemorrhage. No midline shift or mass effect. Decreased attenuation is seen in the periventricular and subcortical white matter. The ventricles and cortical sulci are prominent. The basilar cisterns are patent and unremarkable. The orbits are normal. Paranasal sinuses are normal. Mastoid air cells are clear. No soft tissue abnormality is seen. No osseous lesions or fractures are seen. IMPRESSION: 1. No large acute territorial ischemia, mass, or hemorrhage. 2. Chronic microvascular disease. 3. Generalized parenchymal volume loss. Dictated by: Dictated on workstation # [id number] Dict: 01/21/23 1315 Trans: 01/21/23 1323 [id number] Interpreted by: RYAN CEJA DO Electronically signed by: RYAN CEJA DO 01/21/23 1323 Comments [facility] [place] NAME: ADDY SIMMONS [facility] REC#: [id number] PT STATUS: REG ER : 1955 PHYSICIAN: JULIANNE VASQUEZ MD ADMIT DATE: 01/21/23/ER Draft Date of Exam:01/21/23 MRI BRAIN W/O CONTRAST EXAMINATION: MR imaging brain without contrast. TECHNIQUE: Multiplanar, multisequence MR imaging of the brain was performed without contrast. HISTORY: Left-sided weakness COMPARISON: 01/13/2023 FINDINGS: Mild diffuse cerebral volume loss with proportional enlargement of the ventricles and sulci. Mild diffuse T2/FLAIR hyperintensities throughout the supratentorial white matter of both cerebral hemispheres. There are no extra-axial fluid collections. There is a small focus of restricted diffusion within the right thalamus. Flow voids are normal for major intracranial arteries and dural venous sinuses. The visualized paranasal sinuses are normal. The mastoid air cells are clear. The orbits are normal. IMPRESSION: 1. Findings suggestive of a small acute lacunar infarct within the thalamus. 2. Mild chronic microangiopathy and volume loss. Critical finding. Results communicated to Dr. Vasquez by Dr. Gurmeet Bourgeois at 2:32 PM on 01/21/2023. Dictated on workstation # [id number] Dict: 01/21/23 1428 Trans: 01/21/23 1435 [facility] [id number] Interpreted by: ROXANA BOURGEOIS DO Electronically signed by: Departure Communication (Admissions) Time/Spoke to Admitting Phy: 13:[address] Velez ([facility]ist) admit IP to ICU Impression Primary Impression: CVA (cerebral vascular accident) Qualified Codes: I63.9 - Cerebral infarction, unspecified Disposition: ADMITTED INPATIENT Condition: Critical Admissions Decision to Admit Reason: Admit from ER (General) Decision to Admit/Date: Jan 21, 2023 Time/Decision to Admit Time: 13:52 Departure-Patient Inst. Referrals: ANALI MENJIVAR MD (PCP/Family) Primary Care Physician JULIANNE VASQUEZ MD Jan 21, 2023 13:09
[2023-01-21 13:10] LABS: PROTHROMBIN TIME PATIENT 13.2 SEC (12.2-14.7)
[2023-01-21 13:13] LABS: CHLORIDE 108 MMOL/L (98-107); FIBRIN DEGRADATION PRODUCTS 0.33 UG/ML (0.00-0.49); POTASSIUM 3.6 MMOL/L (3.6-5.0); SODIUM 143 MMOL/L (135-145)
[2023-01-21 13:14] LABS: CALCIUM 9.9 MG/DL (8.5-10.1)
[2023-01-21 13:15] LABS: GLUCOSE 87 MG/DL (70-105); TOTAL PROTEIN 6.1 GM/DL (6.4-8.2)
[2023-01-21 13:16] LABS: CARBON DIOXIDE 26 MMOL/L (21-32)
[2023-01-21 13:17] LABS: BILIRUBIN,TOTAL 0.3 MG/DL (0.1-1.0)
[2023-01-21 13:18] LABS: ALKALINE PHOSPHATASE 80 U/L (40-136)
[2023-01-21 13:19] LABS: GFR ESTIMATED 19
--- NOTE | 2023-01-21 13:19 | Diagnostic Imaging Report ---
EXAMINATION: CT head without contrast. TECHNIQUE: Multiple contiguous axial images were obtained through the brain without the use of intravenous contrast. All CT scans use one or more of the following dose optimizing techniques: automated exposure control, MA and/or KvP adjustment based on patient size and exam type or iterative reconstruction. HISTORY: Left leg weakness. Difficulty speaking. COMPARISON: None available. FINDINGS: No large acute territorial ischemia, mass, or hemorrhage. No midline shift or mass effect. Decreased attenuation is seen in the periventricular and subcortical white matter. The ventricles and cortical sulci are prominent. The basilar cisterns are patent and unremarkable. The orbits are normal. Paranasal sinuses are normal. Mastoid air cells are clear. No soft tissue abnormality is seen. No osseous lesions or fractures are seen. IMPRESSION: 1. No large acute territorial ischemia, mass, or hemorrhage. 2. Chronic microvascular disease. 3. Generalized parenchymal volume loss. Dictated by: Dictated on workstation # [id number]
[2023-01-21 13:20] LABS: BUN/CREATININE RATIO 7
--- NOTE | 2023-01-21 13:20 | Diagnostic Imaging Report ---
INDICATION: Difficulty speaking. COMPARISON: 12/31/2022. FINDINGS: The lungs are clear. There is no failure, effusion, or pneumothorax. IMPRESSION: Normal frontal chest. Dictated by: Dictated on workstation # [id number]
[2023-01-21 13:22] LABS: ALANINE AMINOTRANSFERASE 10 U/L (0-55)
--- NOTE | 2023-01-21 13:56 | History & Physical ---
History of Present Illness HPI/Chief Complaint Chief complaint: CVA HPI: This is a 67-year-old female clinic patient of Dr. Maya who recently saw Dr. Bertrand for cardiac evaluation who has a past medical history of polymyositis managed by rheumatology up at and chronic kidney disease managed by nephrology who presented to the ER brought by her daughter when she woke up this morning and felt like her leg was " acting funny" so she went to work at [employer] but kept on running into things and she called her daughter and her daughter thought her speech was slurred. To note she had not taken her blood pressure medications for about 4 days and had just filled them yesterday and she took those doses and again this morning less than 12 hours later so she was noted to be hypotensive requiring gentle IV fluids in the ER. She has a history of chronic kidney disease stage IV. CT scan was reviewed and stroke neurologist up at And they recommended MRA and MRI which showed a small lacunar stroke In the thalamus and MRA showed no evidence of large vessel thrombosis. it was recommended to start aspirin and Plavix statin check carotid ultrasound echocar diogram and monitor in the ICU. Her blood pressure is now much improved at 123/68. Dr. Bertrand has been consulted. She may need a loop recorder. Her daughter is a hospice nurse for [employer] and she is at the bedside. To note I did login to EMR and noted she had had a recent hospital stay in September for TIA. She did not mention this when I interviewed her. It also appears she has had some confusion regarding her medications currently as had reported in September. H&P HPI 10/17/22: Admission Diagnosis: Hypertensive emergency [I16.1] Principal Problem: Hypertensive emergency Active Problems: Positive GEMA (antinuclear antibody) Overlap syndrome (HCC) ILD (interstitial lung disease) (HCC) Polymyositis associated with autoimmune disease (HCC) Gastroesophageal reflux disease without esophagitis Uncontrolled hypertension NSIP (nonspecific interstitial pneumonia) (HCC) Progressive fibrosing interstitial lung disease (HCC) DC med list: CONTINUE taking these medications albuterol 0.083% 2.5 mg /3 mL (0.083 %) nebulizer solution; Commonly known as: PROVENTIL; Dose: 3 mL; Inhale 3 mL solution by nebulizer as directed every 4 hours as needed for Wheezing or Shortness of Breath.; Quantity: 180 mL; Refills: 11 amLODIPine 5 mg tablet; Commonly known as: NORVASC; Dose: 5 mg; Take one tablet by mouth daily.; Quantity: 90 tablet; Refills: 3 CENTRUM SILVER PO; Dose: 1 tablet; Refills: 0 cloNIDine HCL 0.1 mg tablet; Commonly known as: CATAPRES; Dose: 0.1 mg; Take one tablet by mouth at bedtime daily.; Quantity: 90 tablet; Refills: 2 famotidine 40 mg tablet; Commonly known as: PEPCID; Dose: 40 mg; TAKE ONE TABLET BY MOUTH DAILY; Quantity: 90 tablet; Refills: 3 gabapentin 300 mg capsule; Commonly known as: NEURONTIN; Dose: 300 mg; Take one capsule by mouth at bedtime daily.; Quantity: 90 capsule; Refills: 1 levothyroxine 50 mcg capsule; Commonly known as: TIROSINT; Dose: 50 mcg; Refills: 0 loratadine 10 mg tablet; Commonly known as: CLARITIN; Dose: 10 mg; Refills: 0 losartan 50 mg tablet; Commonly known as: COZAAR; Dose: 100 mg; Take two tablets by mouth daily.; Quantity: 60 tablet; Refills: 5 metoprolol tartrate 50 mg tablet; Commonly known as: LOPRESSOR; Dose: 50 mg; Take one tablet by mouth twice daily.; Quantity: 180 tablet; Refills: 1 minoxidiL 10 mg tablet; Commonly known as: LONITEN; Dose: 10 mg; Take one tablet by mouth twice daily.; Quantity: 30 tablet; Refills: 3 oxyBUTYnin chloride 5 mg tablet; Commonly known as: DITROPAN; Dose: 0.5 tablet; Refills: 0 potassium chloride 10 mEq tablet; Commonly known as: KLOR-CON 10; Dose: 10 mEq; Refills: 4 RITUXAN IV; Refills: 0 venlafaxine XR 150 mg capsule; Commonly known as: EFFEXOR XR; Dose: 150 mg; Refills: 0 STOP taking these medications metoprolol succinate XL 50 mg extended release tablet; Commonly known as: TOPROL XL Source: patient, family, RN/MD, old records Exam Limitations: no limitations Date Seen 01/21/23 Time Seen by a Provider: 14:30 Attending Physician Meghana Maya MD PCP Admitting Physician: Attending Physician: Referring Physician Date of Admission Home Medications & Allergies Home Medications Reviewed patient Home Medication Reconciliation performed by pharmacy medication reconciliations train control technician and/or nursing. Patients Allergies have been reviewed. Allergies Allergies Coded Allergies No Known Drug Allergies (Verified09/01/07) Past Lrsfmlz-Fxdbiy-Xllqcq Hx Past Med/Social Hx: Reviewed Nursing Past Med/Soc Hx, Reviewed and Corrections made Patient Social History Marrital Status: single Employed/Student: employed Alcohol Use: Denies Use Smoking Status: Never a Smoker 2nd Hand Smoke Exposure: No Recent Hopitalizations: No Immunizations Up To Date Tetanus Booster (TDap): Unknown Pediatric: Yes Seasonal Allergies Seasonal Allergies: Yes Past Medical History Surgeries: Gallbladder Respiratory: Pulmonary Fibrosis Currently Using CPAP: No Currently Using BIPAP: No Cardiac: High Cholesterol, Hypertension Neurological: Neuropathy Reproductive: No Menopausal Genitourinary: Renal Failure Gastrointestinal: Gastroesophageal Reflux polymyositis Endocrine: Hypothyroidsim Loss of Vision: Denies Hearing Impairment: Denies Psychosocial: Anxiety, Depression History of Blood Disorders: Yes (ANEMIA) Adverse Reaction to Blood Kumar: No Family History No Pertinent Family Hx Review of Systems Constitutional: see HPI, dizziness, malaise, weakness EENTM: no symptoms reported Respiratory: no symptoms reported Cardiovascular: no symptoms reported Gastrointestinal: no symptoms reported Genitourinary: no symptoms reported Musculoskeletal: back pain, joint pain Skin: no symptoms reported Psychiatric/Neurological: Anxiety, Depressed, Paresthesia, Weakness All Other Systems Reviewed Negative Unless Noted: Yes Physical Exam Physical Exam Vital Signs Vital Signs - First Documented 01/21/23 01/21/23 01/21/23 12:35 15:47 18:00 Temp 36.3 Pulse 59 Resp 16 B/P (MAP) 100/57 (71) Pulse Ox 98 O2 Delivery Room Air O2 Flow Rate 2.00 FiO2 21 Capillary Refill : Less Than 3 Seconds Height, Weight, BMI Height: 5'1.00" Weight: 169lbs. 4.8oz. [id number]; 32.00 BMI Method:Stated General Appearance: No Apparent Distress, WD/WN, Chronically ill Eyes: Bilateral Eye Normal Inspection, Bilateral Eye PERRL HEENT: PERRL/EOMI, Normal ENT Inspection, Pharynx Normal Neck: Full Range of Motion, Normal Inspection, Non Tender, Supple, Carotid Bruit Respiratory: Chest Non Tender, No Accessory Muscle Use, No Respiratory Distress, Crackles Cardiovascular: Regular Rate, Rhythm, No Edema, No Gallop, No JVD, No Murmur, Normal Peripheral Pulses Gastrointestinal: Normal Bowel Sounds, No Organomegaly, No Pulsatile Mass, Non Tender, Soft Back: Normal Inspection, No CVA Tenderness, No Vertebral Tenderness Extremity: Normal Capillary Refill, Normal Inspection, Normal Range of Motion, Non Tender, No Calf Tenderness, No Pedal Edema Neurologic/Psychiatric: Alert, Oriented x3, doll surgeon II-XII Norm as Tested, Abnormal Gait, Depressed Affect, Motor Weakness (left sided 3/5) Skin: Normal Color, Warm/Dry Lymphatic: No Adenopathy Results Results/Procedures Labs Laboratory Tests 01/21/23 12:50 Patient resulted labs reviewed. Assessment/Plan Admission Diagnosis Assessment: 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 Recent hospital stay at for TIA 09/2022 with hypertensive urgency Confusion and non-purposeful noncompliance with blood pressure medication currently and reported on records 09/2022 Polymyositis Chronic kidney disease stage IV Pulmonary fibrosis Immunocompromised with Rituxan GERD Hypothyroidism Plan: Aspirin Plavix and statin Echo and carotid ultrasound Cardiology evaluation Telemetry May need loop recorder Home meds Monitor blood pressure Gentle IV fluid PT and OT in inpatient rehab consult Admission Status: Inpatient Order (span 2 midnights) Reason for Inpatient Admission: CVA Diagnosis/Problems Diagnosis/Problems (1) CVA (cerebral vascular accident) Qualifiers: CVA mechanism: unspecified Qualified Codes: I63.9 - Cerebral infarction, unspecified (2) Interstitial lung disease Status: Acute (3) Polymyositis (4) Chronic renal disease, stage IV MARLEY CAMPA DO Jan 21, 2023 13:56
--- NOTE | 2023-01-21 14:35 | Diagnostic Imaging Report ---
EXAMINATION: MR imaging brain without contrast. TECHNIQUE: Multiplanar, multisequence MR imaging of the brain was performed without contrast. HISTORY: Left-sided weakness COMPARISON: 01/13/2023 FINDINGS: Mild diffuse cerebral volume loss with proportional enlargement of the ventricles and sulci. Mild diffuse T2/FLAIR hyperintensities throughout the supratentorial white matter of both cerebral hemispheres. There are no extra-axial fluid collections. There is a small focus of restricted diffusion within the right thalamus. Flow voids are normal for major intracranial arteries and dural venous sinuses. The visualized paranasal sinuses are normal. The mastoid air cells are clear. The orbits are normal. IMPRESSION: 1. Findings suggestive of a small acute lacunar infarct within the thalamus. 2. Mild chronic microangiopathy and volume loss. Critical finding. Results communicated to Dr. Ramirez by Dr. Gurmeet Mendoza at 2:32 PM on 01/21/2023. Dictated by: Dictated on workstation # [id number]
[2023-01-21] MEDS ORDERED: CLOPIDOGREL 300 MG TABLET PO ONE (14:45)
[2023-01-21] MEDS ORDERED: ASPIRIN 81 MG CHEWABLE TABLET PO ONE (14:45)
--- NOTE | 2023-01-21 14:52 | Diagnostic Imaging Report ---
PROCEDURE: MR angiography of the brain without the use of contrast. TECHNIQUE: 3D jkry-mn-ehtzky non contrast enhanced MR angiography of the head was performed. A source data was reformatted into rotating MIP projections. INDICATION: Left-sided weakness. Comparison: MRI of the brain on the same date. FINDINGS: The internal carotid arteries are of normal caliber. There are no areas of atherosclerotic narrowing. The nnnkdw-vl-Kssqlh is complete. The anterior and middle cerebral arteries are normal. The vertebral arteries are codominant. The basilar artery is normal. The posterior cerebral arteries are normal. There is no aneurysm or vascular malformation identified. IMPRESSION: 1. Normal MRA of the brain. Dictated by: Dictated on workstation # [id number]
[2023-01-21] MEDS ORDERED: NS IV 500 ML 500 ML IV PRN (15:15)
[2023-01-21] MEDS ORDERED: CALCIUM CARBONATE 500 MG CHEW TABLET PO PRN (15:15)
[2023-01-21] MEDS ORDERED: ANTACID SUSP 30 ML UDC (MYLANTA) PO PRN (15:15)
[2023-01-21] MEDS ORDERED: BISACODYL 10 MG SUPPOSITORY PR PRN (15:15)
[2023-01-21] MEDS ORDERED: LACTULOSE SYRUP 10GM/15ML (ENULOSE) 30ML UDC PO PRN (15:15)
[2023-01-21] MEDS ORDERED: MILK OF MAGNESIA 400 MG/5 ML 30 ML UDC PO PRN (15:15)
[2023-01-21] MEDS ORDERED: polyethylene glycoL POWDER 17 GM (MIRALAX) PACK PO PRN (15:15)
[2023-01-21] MEDS ORDERED: ONDANSETRON 4 MG (ZOFRAN) ORAL DISSOLVE TAB PO PRN (15:15)
[2023-01-21] MEDS ORDERED: diphenhydrAMINE 25 MG TAB (BENADRYL) PO PRN (15:15)
[2023-01-21] MEDS ORDERED: MELATONIN 3 MG TABLET PO PRN (15:15)
[2023-01-21] MEDS ORDERED: diphenhydrAMINE 50 MG/ML INJ (BENADRYL) IVP PRN (15:15)
[2023-01-21] MEDS ORDERED: HYDROmorphone 2 MG/ML VIAL (DILAUDID) IV PRN (15:15)
[2023-01-21] MEDS ORDERED: ONDANSETRON 4 MG/2 ML (SDV) Z0FRAN IV PRN (15:15)
[2023-01-21] MEDS ORDERED: ACETAMINOPHEN 325 MG TABLET PO PRN (15:15)
[2023-01-21 15:47] VITALS: BP 100/57
[2023-01-21] MEDS: NS IV 1000 ML 1,000 ML IV SCH (15:58)
[2023-01-21] MEDS ORDERED: RT-ALBUTEROL SULF 2.5 MG/3 ML PRE-MIX VIAL INH PRN (16:00)
--- NOTE | 2023-01-21 16:08 | Physical Therapy Evaluation ---
PT Evaluation-General Medical Diagnosis Admission Date Jan 21, 2023 at 14:59 Medical Diagnosis: CVA Onset Date: Jan 21, 2023 Therapy Diagnosis Therapy Diagnosis: Gait deficit ,strength deficit Height/Weight Height (Feet): 5 Height (Inches): 1.00 Weight (Pounds): 169 Weight (Ounces): 4.8 Precautions Precautions/Isolations: Fall Prevention, Standard Precautions Weight Bear Status Right Lower Extremity: Right Full Weight Bearing Left Lower Extremity: Left Full Weight Bearing Referral Physician: Dr. Velez Reason for Referral: Evaluation/Treatment Medical History Pertinent Medical History: HTN, Hypothroidism Social History Home: Apartment Current Living Status: Alone Entry Into Home: Level Entry Prior Prior Level of Function SCALE: Activities may be completed with or without assistive devices. 2-Qctqelgynk-yoceeuq completes the activity by him/herself with no assistance from a helper. 5-Set-up or Clean-up Assistance-helper sets up or cleans up; patient completes activity. [place] assists only prior to or following the activity. 4-Supervision or Touching Assistance-helper provides verbal cues and/or touching/steadying and/or contact guard assistance as patient completes activity. Assistance may be provided throughout the activity or intermittently. 3-Partial/Moderate Assistance-helper does LESS THAN HALF the effort. [place] lifts, holds or supports trunk or limbs, but provides less than half the effort. 2-Substantial/Maximal Assistance-helper does MORE THAN HALF the effort. [place] lifts or holds trunk or limbs and provides more than half the effort. 8-Ntauggprb-yvvkds does ALL the effort. Patient does none of the effort to complete the activity. Or, the assistance of 2 or more helpers is required for the patient to complete the activity. If activity was not attempted, code reason: 7-Patient Refused. 9-Not Applicable-not attempted and the patient did not perform the activity before the current illness, exacerbation or injury. 10-Not Attempted due to Environmental Limitations-(lack of equipment, weather restraints, etc.). 88-Not Attempted due to Medical Conditions or Safety Concerns. Bed Mobility: 6 Transfers (B,C,W/C): 6 Gait: 6 Stairs: 6 Indoor Mobility (Ambulation): Independent Stairs: Independent Prior Devices Use: None PT Evaluation-Current Subjective Patient lying supine in bed with daughter in room upon PT arrival, agreeable to treatment. Patient reports pain at 0/10. Objective Patient Orientation: Person, Place, Time, Situation Attachments: IV ROM/Strength ROM Lower Extremities WFLs BLEs in all planes Strength Lower Extremities Right LE 5/5; Left DF 3+/5, all other planes 5/5 Sensory Vision: Functional Hearing: Functional Sensation Right Upper Extremit: Intact Sensation Left Upper Extremity: Intact Transfers Roll Left to Right (QC): 4 Sit to Lying (QC): 4 Lying to Sitting/Side of Bed(Q: 4 Sit to Stand (QC): 4 Chair/Xsb-xn-Cxaoc Xfer(QC): 4 Gait Does the Patient Walk?: Yes Mode of Locomotion: Walk Anticipated Mode of Locomotion: Walk Walk 10 feet (QC): 3 Walk 50 ft with 2 Turns(QC): 3 Distance: 100' Gait Assistive Device: None Balance Sitting Static: Fair Sitting Dynamic: Fair Standing Static: Fair Standing Dynamic: Fair Assessment/Needs Patient tolerated treatment well. Requires SBA for all bed mobility and transfers. Patient minimally unsteady upon sitting at EOB. Patient requires CGA for sit to stand and demonstrates decrease in balance upon standing. Patient ambulates 100 feet with no AD, CGA for veering to the right at times. Patient left foot demonstrates mild drop foot and toes catch on the ground. She is able to minimally correct with verbal cues, but without focusing on it, catches her left foot with every step. Patient in bed post treatment with all needs met, nursing notified, call light in hand, daughter in the room. Rehab Potential: Fair PT Penitentiary Goals Penitentiary Goals PT .Net Developer Goals Time Frame: Feb 19, 2023 Roll Left & Right (QC): 6 Sit to Lying (QC): 6 Lying-Sitting on Side/Bed(QC): 6 Sit to Stand (QC): 6 Chair/Bei-oh-Barqx Xfer(QC): 6 Toilet Transfer (QC): 6 Does the Patient Walk: Yes Walk 10 feet (QC): 6 Walk 50ft with 2 Turns (QC): 6 Walk 150 ft (QC): 6 PT Plan Problem List Problem List: Activity Tolerance, Functional Strength, Safety, Balance, Gait, Transfer, Bed Mobility, ROM Treatment/Plan Treatment Plan: Continue Plan of Care Treatment Plan: Bed Mobility, Education, Functional Activity Ghanshyam, Functional Strength, Group Therapy, Gait, Safety, Therapeutic Exercise, Transfers Treatment Duration: Feb 24, 2023 Frequency: 6 times per week Estimated Hrs Per Day: .25 hour per day Patient and/or Family Agrees t: Yes Safety Risks/Education Patient Education: Gait Training, Transfer Techniques Teaching Recipient: Patient Teaching Methods: Demonstration, Discussion Response to Teaching: Verbalize Understanding, Return Demonstration Time Time In: 1534 Time Out: 1602 DATE: Jan 21, 2023 Total Billed Treatment Time: 28 Total Billed Treatment Visit, KATIE BRADLEY JOHN A PT Jan 21, 2023 16:08
--- NOTE | 2023-01-21 17:23 | Diagnostic Imaging Report ---
PROCEDURE: US carotid duplex, bilateral. TECHNIQUE: Multiple real-time grayscale images were obtained over the carotid arteries in various projections, bilaterally. Additional spectral analysis and color Doppler duplex images were also obtained. INDICATION: Stroke, CVA, hypertension, speech difficulty. COMPARISON: None. FINDINGS: Right carotid: The right common carotid artery demonstrates minimal intimal thickening. Carotid upstrokes are brisk. There is no significant atherosclerosis or high-grade stenosis. The vertebral artery is antegrade. The ICA and ECA appear patent. Left carotid: The left common carotid artery has mild atherosclerosis, particularly at the bulb. There is no significant stenosis appreciated. The ICA and ECA are patent. Carotid upstrokes are brisk. The vertebral artery is antegrade. Parameters based on the consensus panel grayscale and Doppler ultrasound criteria published April 2003, Radiology, Volume 229. DOPPLER (peak systolic velocity M/S Right Left CCA 0.85 0.76 ICA Proximal 0.61 1.03 ICA Mid 0.62 1.18 ICA Distal 0.57 0.65 RATIO 0.72 1.56 ECA 0.80 0.66 VERT 0.54 0.62 IMPRESSION: Mild atherosclerosis with no hemodynamically significant stenosis in the bilateral carotid arteries. Dictated by: Dictated on workstation # [id number]
[2023-01-21] MEDS: SENNOSIDES 8.6 MG (SENOKOT) TAB PO SCH (20:24)
[2023-01-21] MEDS: DOCUSATE SODIUM 100 MG CAPSULE PO SCH (20:24)
[2023-01-22] MEDS: NS IV 1000 ML 1,000 ML IV SCH ×2 (02:06→08:00)
[2023-01-22 04:54] LABS: BASOPHILS # (AUTO) 0.1 10^3/uL (0.0-0.1); BASOPHILS % (AUTO) 1 % (0-10); EOSINOPHILS # (AUTO) 0.2 10^3/uL (0.0-0.3); EOSINOPHILS % (AUTO) 2 % (0-10); HEMATOCRIT 36 % (35-52); HEMOGLOBIN 11.7 g/dL (11.5-16.0); LYMPHOCYTES # (AUTO) 2.9 10^3/uL (1.0-4.0); LYMPHOCYTES % (AUTO) 35 % (12-44); MEAN CORPUSCULAR HEMOGLOBIN 28 pg (25-34); MEAN CORPUSCULAR HGB CONC 32 g/dL (32-36); MEAN CORPUSCULAR VOLUME 88 fL (80-99); MEAN PLATELET VOLUME 10.4 fL (9.0-12.2); MONOCYTES # (AUTO) 1.2 10^3/uL (0.0-1.0); MONOCYTES % (AUTO) 14 % (0-12); NEUTROPHILS % (AUTO) 48 % (42-75); PLATELET COUNT 248 10^3/uL (130-400); WHITE BLOOD COUNT 8.2 10^3/uL (4.3-11.0)
[2023-01-22 05:01] LABS: ALBUMIN 3.1 GM/DL (3.2-4.5); POTASSIUM 3.6 MMOL/L (3.6-5.0)
[2023-01-22 05:02] LABS: CALCIUM 8.8 MG/DL (8.5-10.1)
[2023-01-22 05:03] LABS: TOTAL PROTEIN 4.8 GM/DL (6.4-8.2)
[2023-01-22 05:05] LABS: BILIRUBIN,TOTAL 0.3 MG/DL (0.1-1.0)
[2023-01-22 05:07] LABS: CREATININE SERUM 1.82 MG/DL (0.60-1.30); PHOSPHORUS 4.1 MG/DL (2.3-4.7)
[2023-01-22 05:10] LABS: MAGNESIUM 1.9 MG/DL (1.6-2.4)
[2023-01-22] MEDS ORDERED: POTASSIUM CL 10MEQ/50ML IVPB 50 ML IV SCH (06:00)
[2023-01-22] MEDS ORDERED: MAGNESIUM 1 GM/100 ML IVPB 100 ML IV SCH (06:00)
[2023-01-22] MEDS ORDERED: KCL 20 MEQ TAB (K-DUR) PO SCH (06:00)
[2023-01-22] MEDS ORDERED: KCL 20 MEQ TAB (K-DUR) PO ONE (06:15)
[2023-01-22] MEDS: MAGNESIUM 1 GM/100 ML IVPB 100 ML IV SCH ×2 (06:22→08:28)
--- NOTE | 2023-01-22 06:48 | Progress Note ---
Subjective Date Seen by a Provider: Jan 22, 2023 Time Seen by a Provider: 11:00 Subjective/Events-last exam Improved Needs intense therapy due to "dragging" left foot IRF transfer tomorrow Daughter at bedside Dr Bertrand appreciated No falls No pain Review of Systems General: Fatigue, Malaise Pulmonary: Dyspnea Focused Exam Lactate Level 01/21/23 13:17: Lactic Acid Level 1.92 Objective Exam Last Set of Vital Signs Vital Signs Date Time Temp Pulse Resp B/P (MAP) Pulse Ox O2 Delivery O2 Flow Rate FiO2 01/22/23 06:00 66 24 108/52 (70) 96 Nasal Cannula 2.00 01/22/23 04:00 96 01/21/23 15:47 36.3 Capillary Refill : Less Than 3 Seconds I&O Intake and Output 01/22/23 00:00 Intake Total 1650 ml Balance 1650 ml Intake Oral 650 ml IV Total 1000 ml # Voids 1 Daily Weight Change No General: Alert, Oriented X3, Cooperative, No Acute Distress Lungs: Clear to Auscultation, Normal Air Movement Neuro: Other Psych/Mental Status: Mental Status NL, Mood NL Results Lab Laboratory Tests 01/21/23 12:50: White Blood Count 8.8, Red Blood Count 4.76, Hemoglobin 13.7, Hematocrit 42, Mean Corpuscular Volume 87, Mean Corpuscular Hemoglobin 29, Mean Corpuscular Hemoglobin Concent 33, Red Cell Distribution Width 13.6, Platelet Count 302, Mean Platelet Volume 10.0, Immature Granulocyte % (Auto) 0, Neutrophils (%) (Auto) 51, Lymphocytes (%) (Auto) 32, Monocytes (%) (Auto) 15H, Eosinophils (%) (Auto) 1, Basophils (%) (Auto) 1, Neutrophils # (Auto) 4.5, Lymphocytes # (Auto) 2.8, Monocytes # (Auto) 1.3H, Eosinophils # (Auto) 0.1, Basophils # (Auto) 0.1, Immature Granulocyte # (Auto) 0.0, Prothrombin Time 13.2, INR Comment 1.0, Activated Partial Thromboplast Time 24, D-Dimer 0.33, Sodium Level 143, Potass ium Level 3.6, Chloride Level 108H, Carbon Dioxide Level 26, Anion Gap 9, Blood Urea Nitrogen 20H, Creatinine 2.70H, Estimat Glomerular Filtration Rate 19, BUN/Creatinine Ratio 7, Glucose Level 87, Calcium Level 9.9, Corrected Calcium 9.9, Total Bilirubin 0.3, Aspartate Amino Transf (AST/SGOT) 19, Alanine Aminotransferase (ALT/SGPT) 10, Alkaline Phosphatase 80, Troponin I < 0.028, Total Protein 6.1L, Albumin 4.0 01/21/23 13:06: Glucometer 77 01/21/23 13:17: Lactic Acid Level 1.92 01/22/23 04:30: White Blood Count 8.2, Red Blood Count 4.13, Hemoglobin 11.7, Hematocrit 36, Mean Corpuscular Volume 88, Mean Corpuscular Hemoglobin 28, Mean Corpuscular Hemoglobin Concent 32, Red Cell Distribution Width 13.5, Platelet Count 248, Mean Platelet Volume 10.4, Immature Granulocyte % (Auto) 0, Neutrophils (%) (Auto) 48, Lymphocytes (%) (Auto) 35, Monocytes (%) (Auto) 14H, Eosinophils (%) (Auto) 2, Basophils (%) (Auto) 1, Neutrophils # (Auto) 4.0, Lymphocytes # (Auto) 2.9, Monocytes # (Auto) 1.2H, Eosinophils # (Auto) 0.2, Basophils # (Auto) 0.1, Immature Granulocyte # (Auto) 0.0, Sodium Level 143, Potassium Level 3.6, Chloride Level 113H, Carbon Dioxide Level 22, Anion Gap 8, Blood Urea Nitrogen 20H, Creatinine 1.82H, Estimat Glomerular Filtration Rate 30, BUN/Creatinine Ratio 11, Glucose Level 94, Calcium Level 8.8, Corrected Calcium 9.5, Total Bilirubin 0.3, Aspartate Amino Transf (AST/SGOT) 18, Alanine Aminotransferase (ALT/SGPT) 9, Alkaline Phosphatase 67, Total Protein 4.8L, Albumin 3.1L, Phosphorus Level 4.1, Magnesium Level 1.9, Triglycerides Level 192H, Cholesterol Level 197, LDL Cholesterol Direct 146H, VLDL Cholesterol 38, HDL Cholesterol 27L Assessment/Plan Assessment/Plan Assess & Plan/Chief Complaint Assessment: 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 Recent hospital stay at for TIA 09/2022 with hypertensive urgency Confusion and non-purposeful noncompliance with blood pressure medication currently and reported on records 09/2022 Polymyositis Chronic kidney disease stage IV Pulmonary fibrosis Immunocompromised with Rituxan GERD Hypothyroidism Plan: Aspirin Plavix and statin Echo and carotid ultrasound reviewed Cardiology evaluation appreciated Telemetry May need loop recorder Home meds Monitor blood pressure HLIVF PT and OT in inpatient rehab consult ARU tomorrow Move to 4th floor Diagnosis/Problems Diagnosis/Problems (1) CVA (cerebral vascular accident) Qualifiers: Qualified Codes: I63.9 - Cerebral infarction, unspecified (2) Interstitial lung disease Status: Acute (3) Polymyositis (4) Chronic renal disease, stage IV MARLEY CAMPA DO Jan 22, 2023 06:47
--- NOTE | 2023-01-22 08:25 | Consultation-Cardiology ---
HPI-Cardiology Cardiology Consultation Date of Consultation 01/22/23 Date of Admission Time Seen by Provider: 08:21 Indication: Acute CVA HPI 67-year-old lady with a history of hypertension, questionable history of TIA in the past. Started to have slight sluggishness in her leg, came into the emergency room and she was diagnosed with acute thalamic infarct. Patient was admitted to ICU. On my evaluation she was laying down in bed, reporting that she is feeling better. Denied any chest pain. No shortness of breath. No palpitation. No arrhythmia detected on telemetry. Home Medications & Allergies Allergies: Coded Allergies: No Known Drug Allergies (Verified , 09/01/07) Home Medication List Reviewed: Yes UHY-Qharzv-Tnzpey Hx Patient Social History Marital Status: single Employed/Student: employed Smoking Status: Never a Smoker 2nd Hand Smoke Exposure: No Recent Hopitalizations: No Alcohol Use?: No Immunizations Up To Date Tetanus Booster (TDap): Unknown Past Medical History Discussed below Family Medical History Significant Family History: No Pertinent Family Hx Review of Systems-General Review of Systems Constitutional: see HPI, dizziness, malaise, weakness EENTM: no symptoms reported Respiratory: see HPI; No cough, No dyspnea on exertion, No hemoptysis, No orthopnea, No phlegm, No short of breath, No stridor, No wheezing, No other Cardiovascular: see HPI; No chest pain, No edema, No Hx of Intervention, No palpitations, No syncope, No vascular heart diseas, No other Gastrointestinal: no symptoms reported, see HPI Genitourinary: no symptoms reported Musculoskeletal: back pain, joint pain Skin: no symptoms reported Psychiatric/Neurological: Anxiety, Depressed, Paresthesia, Weakness All Other Systems Reviewed Negative Unless Noted: Yes Reviewed Test Results Reviewed Test Results Lab Laboratory Tests Test 01/21/23 12:50 01/21/23 13:06 01/21/23 13:17 01/22/23 04:30 Range/Units White Blood Count 8.8 8.2 4.3-11.0 10^3/uL Red Blood Count 4.76 4.13 3.80-5.11 10^6/uL Hemoglobin 13.7 11.7 11.5-16.0 g/dL Hematocrit 42 36 35-52 % Mean Corpuscular Volume 87 88 80-99 fL Mean Corpuscular Hemoglobin 29 28 25-34 pg Mean Corpuscular Hemoglobin Concent 33 32 32-36 g/dL Red Cell Distribution Width 13.6 13.5 10.0-14.5 % Platelet Count 302 248 130-400 10^3/uL Mean Platelet Volume 10.0 10.4 9.0-12.2 fL Immature Granulocyte % (Auto) 0 0 % Neutrophils (%) (Auto) 51 48 42-75 % Lymphocytes (%) (Auto) 32 35 12-44 % Monocytes (%) (Auto) 15 H 14 H 0-12 % Eosinophils (%) (Auto) 1 2 0-10 % Basophils (%) (Auto) 1 1 0-10 % Neutrophils # (Auto) 4.5 4.0 1.8-7.8 10^3/uL Lymphocytes # (Auto) 2.8 2.9 1.0-4.0 10^3/uL Monocytes # (Auto) 1.3 H 1.2 H 0.0-1.0 10^3/uL Eosinophils # (Auto) 0.1 0.2 0.0-0.3 10^3/uL Basophils # (Auto) 0.1 0.1 0.0-0.1 10^3/uL Immature Granulocyte # (Auto) 0.0 0.0 0.0-0.1 10^3/uL Prothrombin Time 13.2 12.2-14.7 SEC INR Comment 1.0 0.8-1.4 Activated Partial Thromboplast Time 24 24-35 SEC D-Dimer 0.33 0.00-0.49 UG/ML Sodium Level 143 143 135-145 MMOL/L Potassium Level 3.6 3.6 3.6-5.0 MMOL/L Chloride Level 108 H 113 H 98-107 MMOL/L Carbon Dioxide Level 26 22 21-32 MMOL/L Anion Gap 9 8 5-14 MMOL/L Blood Urea Nitrogen 20 H 20 H 7-18 MG/DL Creatinine 2.70 H 1.82 H 0.60-1.30 MG/DL Estimat Glomerular Filtration Rate 19 30 BUN/Creatinine Ratio 7 11 Glucose Level 87 94 70-105 MG/DL Calcium Level 9.9 8.8 8.5-10.1 MG/DL Corrected Calcium 9.9 9.5 8.5-10.1 MG/DL Total Bilirubin 0.3 0.3 0.1-1.0 MG/DL Aspartate Amino Transf (AST/SGOT) 19 18 5-34 U/L Alanine Aminotransferase (ALT/SGPT) 10 9 0-55 U/L Alkaline Phosphatase 80 67 40-136 U/L Troponin I < 0.028 <0.028 NG/ML Total Protein 6.1 L 4.8 L 6.4-8.2 GM/DL Albumin 4.0 3.1 L 3.2-4.5 GM/DL Glucometer 77 70-110 MG/DL Lactic Acid Level 1.92 0.50-2.00 MMOL/L Phosphorus Level 4.1 2.3-4.7 MG/DL Magnesium Level 1.9 1.6-2.4 MG/DL Triglycerides Level 192 H <150 MG/DL Cholesterol Level 197 < 200 MG/DL LDL Cholesterol Direct 146 H 1-129 MG/DL VLDL Cholesterol 38 5-40 MG/DL HDL Cholesterol 27 L 40-60 MG/DL Physical Exam Physical Exam Vital Signs Vital Signs - First Documented 01/21/23 01/21/23 01/21/23 12:35 15:47 18:00 Temp 36.3 Pulse 59 Resp 16 B/P (MAP) 100/57 (71) Pulse Ox 98 O2 Delivery Room Air O2 Flow Rate 2.00 FiO2 21 Capillary Refill : Less Than 3 Seconds Height, Weight, BMI Height: 5'1.00" Weight: 169lbs. 4.8oz. [id number]; 33.42 BMI Method:Stated General Appearance: No Apparent Distress, WD/WN, Chronically ill Eyes: Bilateral Eye Normal Inspection, Bilateral Eye PERRL HEENT: PERRL/EOMI, Normal ENT Inspection, Pharynx Normal Neck: Full Range of Motion, Normal Inspection, Non Tender, Supple, Carotid Bruit Respiratory: Chest Non Tender, No Accessory Muscle Use, No Respiratory Distress, Crackles Cardiovascular: Regular Rate, Rhythm, No Edema, No Gallop, No JVD, Normal Peripheral Pulses, Systolic Murmur Gastrointestinal: Normal Bowel Sounds, No Organomegaly, No Pulsatile Mass, Non Tender, Soft Back: Normal Inspection, No CVA Tenderness, No Vertebral Tenderness Extremity: Normal Capillary Refill, Normal Inspection, Normal Range of Motion, Non Tender, No Calf Tenderness, No Pedal Edema Neurologic/Psychiatric: Alert, 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 Started on aspirin and Plavix and statin Will evaluate 2D echo Monitor blood pressure Hypertension, currently controlled. Monitor blood pressure. Patient ran out off her blood pressure medication for 2 days. She was started back recently, did not check her blood pressure at home. Hyperlipidemia, LDL 146 Started on Lipitor 80 mg daily Monitor lipids Confusion, better at this time. History of polymyositis. Following with [facility], maintained on Rituxan. Chronic kidney disease stage IV. Continue to monitor renal function History of pulmonary fibrosis, clinically stable. Gastroesophageal reflux disease Hypothyroidism. Followed and managed by primary care physician SHRUTHI RODRIGEZ MD Jan 22, 2023 08:25
[2023-01-22] MEDS: ASPIRIN enteric coated 81MG TABLET PO SCH (08:29)
[2023-01-22] MEDS: CLOPIDOGREL 75 MG TABLET PO SCH (08:29)
--- NOTE | 2023-01-22 08:42 | Tele-ICU Consult ---
History of Present Illness History of Present Illness Date Seen by Provider: Jan 22, 2023 Time Seen by Provider: 08:37 Date of Admission (Tele-ICU Physician , Progress Note ) Service provided via interactive audio and video telecommunications E-CARE system to a patient admitted to ICU bed in [facility]. Patient is seen today due to persistent need of ICU care Available chart/ vitals / labs / Images reviewed Video assessment done using teleICU camera, rest of exam as per RN Discussed with RN Events overnight : 67 yo F admitted with new onset of weakness in leg, slurred speech on CTA and MRI/MRA showed a small lacunar infarct in thalamus, started on ASA, Plavix, statin. Has HTN, had not been taking meds for last 4 days Hx of CKD4, polymyositis-has ILD, + GEMA, GERD, On mycophenolate at home Followed at Had transient drop in BP, now better Speech is better, motor strength is better Reason for Visit: Acute CVA Allergies and Home Medications Allergies Coded Allergies: No Known Drug Allergies (Verified , 09/01/07) Home Medications Albuterol Sulfate 18 Gm Hfa.aer.ad, 18 GM INH Q6H Prescribed by: ANALI MENJIVAR on 07/01/21917 Amlodipine Besylate 5 Mg Tablet, 5 MG PO DAILY, (Reported) Atorvastatin Calcium 20 Mg Tablet, 20 MG PO DAILY, (Reported) Azithromycin 250 Mg Tablet, 250 MG PO DAILY Prescribed by: ANALI MENJIVAR on 07/01/21917 Cefdinir 300 Mg Capsule, 300 MG PO BID Prescribed by: ANALI MENJIVAR on 07/01/21917 Cephalexin 500 Mg Tablet, 500 MG PO BID Prescribed by: ANASTASIA VU on 12/31/22 1405 Clonidine HCl 0.1 Mg Tablet, 0.1 MG PO HS, (Reported) Famotidine 40 Mg Tablet, 40 MG PO DAILY, (Reported) Gabapentin 300 Mg Capsule, 300 MG PO HS, (Reported) Lactobac Cmb #3/Fos/Pantethine 1 Each Capsule, 1 EACH PO TID Prescribed by: ANALI MENJIVAR on 07/01/21917 Levothyroxine Sodium 50 Mcg Tablet, 50 MCG PO DAILY, (Reported) Loratadine 10 Mg Tab.rapdis, 10 MG PO DAILY, (Reported) Losartan Potassium 50 Mg Tablet, 50 MG PO DAILY, (Reported) LAST FILLED 02-05-2021 #60/60 DAY SUPPLY Metoprolol Succinate 50 Mg Tab.er.24h, 50 MG PO BID, (Reported) Multivitamin/Iron/Folic Acid 1 Each Tablet, 1 EACH PO DAILY, (Reported) Mycophenolate Mofetil 500 Mg Tablet, 500 MG PO BID, (Reported) Ondansetron 4 Mg Tab.rapdis, 4 MG SL Q4H PRN for NAUSEA/VOMITING Prescribed by: ANASTASIA VU on 12/31/22 1405 Oxybutynin Chloride 5 Mg Tablet, 2.5 MG PO DAILY, (Reported) TAKES OF A 5MG TAB Pantoprazole Sodium 40 Mg Tablet.dr, 40 MG PO DAILY Prescribed by: ANASTASIA VU on 12/31/22 1405 Potassium Chloride 10 Meq Tab.er.prt, 10 MEQ PO DAILY, (Reported) Venlafaxine HCl 150 Mg Tab.er.24, 150 MG PO DAILY, (Reported) [paxlovid] , 150 MG PO ONCE Dispense box and take 150 mg initially then 100 mg twice daily for 5 days. GFR 37. Prescribed by: TAMMIE SINGH on 07/05/21 1556 Past Medical/Social/Family Hx Patient Social History Marrital Status: single Employed/Student: employed Tobacco Use?: No Smoking Status: Never a Smoker Smokeless Tobacco Frequency: Never a User Use of E-Cig and/or Vaping dev: No E-Cig and/or Vaping Freq: Never a User Substance use?: No Alcohol Use?: No Pt stated abuse/neglect: No Immunizations Up To Date First/Initial COVID19 Vaccinat: AUGUST 2020 Second COVID19 Vaccination [place]: SEPTEMBER 2020 Tetanus Booster (TDap): Unknown Current Status Advance Directives: No Communicates: Verbally Primary Language: Malawian Preferred Spoken Language: Malawian Past Medical History DAWN Mcelroy 07/01/2015 Review of Systems Constitutional: see HPI EENTM: see HPI Respiratory: see HPI Cardiovascular: see HPI Gastrointestinal: see HPI Genitourinary: see HPI Musculoskeletal: see HPI Skin: see HPI Psychiatric/Neurological: See HPI Focused Exam Lactate Level 01/21/23 13:17: Lactic Acid Level 1.92 Height, Weight, BMI Height: 5'1.00" Weight: 169lbs. 4.8oz. 76.525869vq; 33.42 BMI Method:Stated Exam Exam Patient acknowledged, consented, and participated in this virtual visit which was conducted using real time audio/video Vital Signs Date Time Temp Pulse Resp B/P (MAP) Pulse Ox O2 Delivery O2 Flow Rate FiO2 01/22/23 07:58 36.0 01/22/23 07:00 61 20 113/61 (78) 93 Nasal Cannula 2.00 01/22/23 07:00 62 01/22/23 06:00 66 24 108/52 (70) 96 Nasal Cannula 2.00 01/22/23 05:00 65 19 109/48 (68) 95 Nasal Cannula 2.00 01/22/23 04:00 66 15 105/54 (71) 95 Nasal Cannula 2.00 01/22/23 04:00 Nasal Cannula 2.00 96 01/22/23 03:00 57 17 108/47 (67) 96 Nasal Cannula 2.00 01/22/23 02:00 64 18 102/48 (66) 95 Nasal Cannula 2.00 01/22/23 01:00 70 01/22/23 01:00 65 20 117/49 (71) 94 Nasal Cannula 2.00 01/22/23 00:00 60 17 110/55 (73) 95 Nasal Cannula 2.00 01/21/23 23:59 Nasal Cannula 2.00 95 01/21/23 23:00 59 18 108/57 (74) 98 Nasal Cannula 2.00 01/21/23 22:00 59 18 115/51 (72) 96 Nasal Cannula 2.00 01/21/23 21:00 63 21 117/63 (81) 95 Nasal Cannula 2.00 01/21/23 20:00 60 21 115/73 (87) 96 Nasal Cannula 2.00 01/21/23 20:00 Nasal Cannula 2.00 94 01/21/23 19:00 61 20 109/58 (75) 96 Nasal Cannula 2.00 01/21/23 19:00 60 01/21/23 18:00 64 19 112/56 (74) 91 Nasal Cannula 2.00 01/21/23 17:00 56 22 113/61 (78) 95 Room Air 01/21/23 16:00 55 19 114/57 (76) 98 Room Air 01/21/23 15:47 36.3 59 98 21 01/21/23 15:30 Room Air 01/21/23 15:15 60 20 122/57 (78) 92 Room Air 01/21/23 15:10 60 01/21/23 15:00 36.4 69 16 107/67 98 Room Air 01/21/23 12:35 36.3 59 16 100/57 (71) 98 Room Air 01/21/23 12:35 98 Room Air I & O 01/22/23 07:00 Intake Total 2100 ml Balance 2100 ml Height & Weight Height: 5'1.00" Weight: 169lbs. 4.8oz. [id number]; 33.42 BMI Method:Stated General Appearance: No Apparent Distress, WD/WN, Chronically ill HEENT: PERRL/EOMI, Normal ENT Inspection, Pharynx Normal Neck: Full Range of Motion, Normal Inspection, Non Tender, Supple, Carotid Bruit Respiratory: Chest Non Tender, Lungs Clear, No Accessory Muscle Use, No Respiratory Distress, Crackles, Other (no crackles heard by RN today) Cardiovascular: Regular Rate, Rhythm, No Edema, No Gallop, No JVD, Normal Peripheral Pulses, Systolic Murmur Capillary Refill: Less Than 3 Seconds Peripheral Pulses: 2+ Radial Pulses (R), 2+ Radial Pulses (L) Gastrointestinal: normal bowel sounds, non tender, soft Extremity: Normal Capillary Refill, Normal Inspection, Normal Range of Motion, Non Tender, No Calf Tenderness, No Pedal Edema Neurologic/Psychiatric: Alert, 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, 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
[2023-01-22] MEDS: SENNOSIDES 8.6 MG (SENOKOT) TAB PO SCH ×2 (09:00→19:52)
[2023-01-22] MEDS: DOCUSATE SODIUM 100 MG CAPSULE PO SCH ×2 (09:00→19:51)
--- NOTE | 2023-01-22 10:01 | Physical Therapy Daily Note ---
PT Daily Note-Current Subjective Pt. in bed, denies any pain and agrees to PT. Pain Section J - Health Conditions 1. Rarely or not at all 2. Occasionally 3. Frequently 4. Almost constantly 8. Unable to answer Pain Effect on Sleep: 1 Pain Interference with Therapy: 1 Pain Interference w/Day-to-Day: 1 Mental Status Patient Orientation: Person, Place, Time, Situation Attachments: IV Transfers SCALE: Activities may be completed with or without assistive devices. 3-Jfodpvzeaf-oohrrcx completes the activity by him/herself with no assistance from a helper. 5-Set-up or Clean-up Assistance-helper sets up or cleans up; patient completes activity. [place] assists only prior to or following the activity. 4-Supervision or Touching Assistance-helper provides verbal cues and/or touching/steadying and/or contact guard assistance as patient completes activity. Assistance may be provided throughout the activity or intermittently. 3-Partial/Moderate Assistance-helper does LESS THAN HALF the effort. [place] lifts, holds or supports trunk or limbs, but provides less than half the effort. 2-Substantial/Maximal Assistance-helper does MORE THAN HALF the effort. [place] lifts or holds trunk or limbs and provides more than half the effort. 1-Sheetpsma-rvxjdy does ALL the effort. Patient does none of the effort to complete the activity. Or, the assistance of 2 or more helpers is required for the patient to complete the activity. If activity was not attempted, code reason: 7-Patient Refused. 9-Not Applicable-not attempted and the patient did not perform the activity before the current illness, exacerbation or injury. 10-Not Attempted due to Environmental Limitations-(lack of equipment, weather restraints, etc.). 88-Not Attempted due to Medical Conditions or Safety Concerns. Sit to Lying (QC): 6 Lying to Sitting/Side of Bed(Q: 6 Sit to Stand (QC): 6 Weight Bearing Right Lower Extremity: Right Full Weight Bearing Left Lower Extremity: Left Full Weight Bearing Gait Training Distance: 150 ft Walk 10 feet (QC): 4 Walk 50 ft with 2 Turns(QC): 4 Walk 150 ft (QC): 4 Gait Persons Needed: 1 Gait Assistive Device: None wide KACY and arms moderately extended from her sides, frequent lateral deviat ions in gait path but no foot drop noted this date Treatments gait training Assessment Current Status: Good Progress Pt. had improved gait with improved L LE strength but continues to have deviations in gait path and some unsteadiness. Pt. is (I) with all transfers. Pt. returned to bed with call light and all needs met. PT Skilled Nursing Goals Client Server Programmer Goals PT Client Server Programmer Goals Time Frame: Feb 19, 2023 Roll Left & Right (QC): 6 Sit to Lying (QC): 6 Lying-Sitting on Side/Bed(QC): 6 Sit to Stand (QC): 6 Chair/Cwy-dh-Aphwt Xfer(QC): 6 Toilet Transfer (QC): 6 Does the Patient Walk: Yes Walk 10 feet (QC): 6 Walk 50ft with 2 Turns (QC): 6 Walk 150 ft (QC): 6 PT Plan Treatment/Plan Treatment Plan: Continue Plan of Care Treatment Plan: Bed Mobility, Education, Functional Activity Ghanshyam, Functional Strength, Group Therapy, Gait, Safety, Therapeutic Exercise, Transfers Treatment Duration: Feb 24, 2023 Frequency: 6 times per week Estimated Hrs Per Day: .25 hour per day Patient and/or Family Agrees t: Yes Time Time In: 919 Time Out: 929 DATE: Jan 22, 2023 Total Billed Treatment Time: 10 Total Billed Treatment 1, GT 10' ANDREIA SPENCE PT Jan 22, 2023 10:01
[2023-01-22] MEDS ORDERED: ONDANSETRON 4 MG (ZOFRAN) ORAL DISSOLVE TAB SL PRN (12:00)
[2023-01-22 14:04] VITALS: BP 144/77
[2023-01-22 14:30] VITALS: BP 166/71
[2023-01-22 15:57] VITALS: BP 170/79
[2023-01-22 19:12] VITALS: BP 175/87
[2023-01-22] MEDS: meTOproloL SUCCINATE 50 MG (TOPROL XL) TAB PO SCH (19:51)
[2023-01-22] MEDS ORDERED: cloNIDine 0.1 MG TABLET PO SCH (21:00)
[2023-01-22] MEDS ORDERED: GABAPENTIN 300 MG (NEURONTIN) CAP PO SCH (21:00)
[2023-01-22 23:58] VITALS: BP 127/57
[2023-01-23 04:00] VITALS: BP 135/74
[2023-01-23 06:04] LABS: BASOPHILS % (AUTO) 0 % (0-10); EOSINOPHILS # (AUTO) 0.2 10^3/uL (0.0-0.3); EOSINOPHILS % (AUTO) 2 % (0-10); HEMATOCRIT 39 % (35-52); HEMOGLOBIN 12.8 g/dL (11.5-16.0); LYMPHOCYTES # (AUTO) 2.4 10^3/uL (1.0-4.0); LYMPHOCYTES % (AUTO) 34 % (12-44); MEAN CORPUSCULAR HEMOGLOBIN 29 pg (25-34); MEAN CORPUSCULAR HGB CONC 33 g/dL (32-36); MEAN CORPUSCULAR VOLUME 86 fL (80-99); MEAN PLATELET VOLUME 10.4 fL (9.0-12.2); MONOCYTES # (AUTO) 0.9 10^3/uL (0.0-1.0); MONOCYTES % (AUTO) 13 % (0-12); NEUTROPHILS # (AUTO) 3.6 10^3/uL (1.8-7.8); NEUTROPHILS % (AUTO) 50 % (42-75); PLATELET COUNT 284 10^3/uL (130-400); WHITE BLOOD COUNT 7.1 10^3/uL (4.3-11.0)
[2023-01-23 06:29] LABS: ALBUMIN 3.6 GM/DL (3.2-4.5); BILIRUBIN,TOTAL 0.4 MG/DL (0.1-1.0); CALCIUM 9.1 MG/DL (8.5-10.1); CREATININE SERUM 1.59 MG/DL (0.60-1.30); MAGNESIUM 2.3 MG/DL (1.6-2.4); POTASSIUM 3.8 MMOL/L (3.6-5.0); TOTAL PROTEIN 5.8 GM/DL (6.4-8.2)
[2023-01-23] MEDS ORDERED: ASPI-1238 PO (06:49)
[2023-01-23] MEDS ORDERED: CLOP75TA28 PO (06:49)
[2023-01-23] MEDS ORDERED: ATOR80TA76 PO (06:49)
--- NOTE | 2023-01-23 06:50 | Discharge Summary ---
Diagnosis/Chief Complaint Date of Admission Jan 21, 2023 at 14:59 Date of Discharge Discharge Date: Jan 23, 2023 Discharge Diagnosis Assessment: 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 with left foot drop needs AFO Recent hospital stay at for TIA 09/2022 with hypertensive urgency Confusion and non-purposeful noncompliance with blood pressure medication currently and reported on records 09/2022 Polymyositis Chronic kidney disease stage IV Pulmonary fibrosis Immunocompromised with Rituxan GERD Hypothyroidism Plan: Aspirin Plavix and statin Echo and carotid ultrasound reviewed Cardiology evaluation appreciated Telemetry May need loop recorder Home meds Monitor blood pressure HLIVF PT and OT ARU today Discharge Summary Discharge Physical Examination Allergies: Coded Allergies: No Known Drug Allergies (Verified , 09/01/07) Vitals & I&Os Vital Signs Date Time Temp Pulse Resp B/P (MAP) Pulse Ox O2 Delivery O2 Flow Rate FiO2 01/23/23 12:45 01/23/23 12:25 36.4 60 18 96 Room Air 01/23/23 08:16 0.00 01/22/23 18:47 21 General Appearance: Alert, Oriented X3, Cooperative Respiratory: Clear to Auscultation Cardiovascular: Regular Rate Psych/Mental Status: Mental Status NL Hospital Course Was the Problem List Reviewed?: Yes Hospital course: Patient had an uneventful hospital course before discharging to inpatient rehab to obtain aggressive PT OT with AFO brace due to left foot drop. Patient was not a tPA candidate she presented considering her elevated creatinine we could not get CT angiogram but it did not appear as large thrombosis. MRI confirmed acute stroke of the right thalamus. Plavix and aspirin statin initiated per protocol. Carotid ultrasound was normal. Echocardiogram was reviewed by Dr. Bertrand. She will remain on telemetry. She was hesitant to come to patient rehab but due to the fact that she did not receive any therapy today she has a left foot drop we decided together with her daughter who is her first that would be in her best interest to come to inpatient rehab Labs (last 24 hrs) Laboratory Tests 01/21/23 12:50: White Blood Count 8.8, Red Blood Count 4.76, Hemoglobin 13.7, Hematocrit 42, Mean Corpuscular Volume 87, Mean Corpuscular Hemoglobin 29, Mean Corpuscular Hemoglobin Concent 33, Red Cell Distribution Width 13.6, Platelet Count 302, Mean Platelet Volume 10.0, Immature Granulocyte % (Auto) 0, Neutrophils (%) (Auto) 51, Lymphocytes (%) (Auto) 32, Monocytes (%) (Auto) 15H, Eosinophils (%) (Auto) 1, Basophils (%) (Auto) 1, Neutrophils # (Auto) 4.5, Lymphocytes # (Auto) 2.8, Monocytes # (Auto) 1.3H, Eosinophils # (Auto) 0.1, Basophils # (Auto) 0.1, Immature Granulocyte # (Auto) 0.0, Prothrombin Time 13.2, INR Comment 1.0, Activated Partial Thromboplast Time 24, D-Dimer 0.33, Sodium Level 143, P otassium Level 3.6, Chloride Level 108H, Carbon Dioxide Level 26, Anion Gap 9, Blood Urea Nitrogen 20H, Creatinine 2.70H, Estimat Glomerular Filtration Rate 19, BUN/Creatinine Ratio 7, Glucose Level 87, Calcium Level 9.9, Corrected Calcium 9.9, Total Bilirubin 0.3, Aspartate Amino Transf (AST/SGOT) 19, Alanine Aminotransferase (ALT/SGPT) 10, Alkaline Phosphatase 80, Troponin I < 0.028, Total Protein 6.1L, Albumin 4.0 01/21/23 13:06: Glucometer 77 01/21/23 13:17: Lactic Acid Level 1.92 01/22/23 04:30: White Blood Count 8.2, Red Blood Count 4.13, Hemoglobin 11.7, Hematocrit 36, Mean Corpuscular Volume 88, Mean Corpuscular Hemoglobin 28, Mean Corpuscular Hemoglobin Concent 32, Red Cell Distribution Width 13.5, Platelet Count 248, Mean Platelet Volume 10.4, Immature Granulocyte % (Auto) 0, Neutrophils (%) (Auto) 48, Lymphocytes (%) (Auto) 35, Monocytes (%) (Auto) 14H, Eosinophils (%) (Auto) 2, Basophils (%) (Auto) 1, Neutrophils # (Auto) 4.0, Lymphocytes # (Auto) 2.9, Monocytes # (Auto) 1.2H, Eosinophils # (Auto) 0.2, Basophils # (Auto) 0.1, Immature Granulocyte # (Auto) 0.0, Sodium Level 143, Potassium Level 3.6, Chloride Level 113H, Carbon Dioxide Level 22, Anion Gap 8, Blood Urea Nitrogen 20H, Creatinine 1.82H, Estimat Glomerular Filtration Rate 30, BUN/Creatinine Ra joe 11, Glucose Level 94, Calcium Level 8.8, Corrected Calcium 9.5, Total Bilirubin 0.3, Aspartate Amino Transf (AST/SGOT) 18, Alanine Aminotransferase (ALT/SGPT) 9, Alkaline Phosphatase 67, Total Protein 4.8L, Albumin 3.1L, Phosphorus Level 4.1, Magnesium Level 1.9, Triglycerides Level 192H, Cholesterol Level 197, LDL Cholesterol Direct 146H, VLDL Cholesterol 38, HDL Cholesterol 27L 01/23/23 05:34: White Blood Count 7.1, Red Blood Count 4.46, Hemoglobin 12.8, Hematocrit 39, Mean Corpuscular Volume 86, Mean Corpuscular Hemoglobin 29, Mean Corpuscular Hemoglobin Concent 33, Red Cell Distribution Width 13.5, Platelet Count 284, Mean Platelet Volume 10.4, Immature Granulocyte % (Auto) 0, Neutrophils (%) (Auto) 50, Lymphocytes (%) (Auto) 34, Monocytes (%) (Auto) 13H, Eosinophils (%) (Auto) 2, Basophils (%) (Auto) 0, Neutrophils # (Auto) 3.6, Lymphocytes # (Auto) 2.4, Monocytes # (Auto) 0.9, Eosinophils # (Auto) 0.2, Basophils # (Auto) 0.0, Immature Granulocyte # (Auto) 0.0, Sodium Level 143, Potassium Level 3.8, Chloride Level 113H, Carbon Dioxide Level 21, Anion Gap 9, Blood Urea Nitrogen 16, Creatinine 1.59H, Estimat Glomerular Filtration Rate 36, BUN/Creatinine Ratio 10, Glucose Level 99, Calcium Level 9.1, Corrected Calcium 9.4, Magnesium Level 2.3, Total Bilirubin 0.4, Aspartate Amino Transf (AST/SGOT) 15, Alanine Aminotransferase (ALT/SGPT) 9, Alkaline Phosphatase 82, Total Protein 5.8L, Albumin 3.6 Microbiology 01/21/23 MRSA Screen - Final, Complete MRSA not isolated Pending Labs Microbiology Date/Time Source Procedure Growth Status 01/21/23 16:00 Nasal MRSA Screen - Final MRSA not isolated Complete Laboratory Tests 01/21/23 12:50: White Blood Count 8.8, Red Blood Count 4.76, Hemoglobin 13.7, Hematocrit 42, Mean Corpuscular Volume 87, Mean Corpuscular Hemoglobin 29, Mean Corpuscular Hemoglobin Concent 33, Red Cell Distribution Width 13.6, Platelet Count 302, Mean Platelet Volume 10.0, Immature Granulocyte % (Auto) 0, Neutrophils (%) (Auto) 51, Lymphocytes (%) (Auto) 32, Monocytes (%) (Auto) 15, Eosinophils (%) (Auto) 1, Basophils (%) (Auto) 1, Neutrophils # (Auto) 4.5, Lymphocytes # (Auto) 2.8, Monocytes # (Auto) 1.3, Eosinophils # (Auto) 0.1, Basophils # (Auto) 0.1, Immature Granulocyte # (Auto) 0.0, Prothrombin Time 13.2, INR Comment 1.0, Activated Partial Thromboplast Time 24, D-Dimer 0.33, Sodium Level 143, Potassium Level 3.6, Chloride Level 108, Carbon Dioxide Level 26, Anion Gap 9, Blood Urea Nitrogen 20, Creatinine 2.70, Estimat Glomerular Filtration Rate 19, BUN/Creatinine Ratio 7, Glucose Level 87, Calcium Level 9.9, Corrected Calcium 9.9, Total Bilirubin 0.3, Aspartate Amino Transf (AST/SGOT) 19, Alanine Aminotransferase (ALT/SGPT) 10, Alkaline Phosphatase 80, Troponin I < 0.028, Total Protein 6.1, Albumin 4.0 01/21/23 13:06: Glucometer 77 01/21/23 13:17: Lactic Acid Level 1.92 01/22/23 04:30: White Blood Count 8.2, Red Blood Count 4.13, Hemoglobin 11.7, Hematocrit 36, Mean Corpuscular Volume 88, Mean Corpuscular Hemoglobin 28, Mean Corpuscular Hemoglobin Concent 32, Red Cell Distribution Width 13.5, Platelet Count 248, Mean Platelet Volume 10.4, Immature Granulocyte % (Auto) 0, Neutrophils (%) (Auto) 48, Lymphocytes (%) (Auto) 35, Monocytes (%) (Auto) 14, Eosinophils (%) (Auto) 2, Basophils (%) (Auto) 1, Neutrophils # (Auto) 4.0, Lymphocytes # (Auto) 2.9, Monocytes # (Auto) 1.2, Eosinophils # (Auto) 0.2, Basophils # (Auto) 0.1, Immature Granulocyte # (Auto) 0.0, Sodium Level 143, Potassium Level 3.6, Chloride Level 113, Carbon Dioxide Level 22, Anion Gap 8, Blood Urea Nitrogen 20, Creatinine 1.82, Estimat Glomerular Filtration Rate 30, BUN/Creatinine Ratio 11, Glucose Level 94, Calcium Level 8.8, Corrected Calcium 9.5, Total Bilirubin 0.3, Aspartate Amino Transf (AST/SGOT) 18, Alanine Aminotransferase (ALT/SGPT) 9, Alkaline Phosphatase 67, Total Protein 4.8, Albumin 3.1, Phosphorus Level 4.1, Magnesium Level 1.9, Triglycerides Level 192, Cholesterol Level 197, LDL Cholesterol Direct 146, VLDL Cholesterol 38, HDL Cholesterol 27 01/23/23 05:34: White Blood Count 7.1, Red Blood Count 4.46, Hemoglobin 12.8, Hematocrit 39, Mean Corpuscular Volume 86, Mean Corpuscular Hemoglobin 29, Mean Corpuscular Hemoglobin Concent 33, Red Cell Distribution Width 13.5, Platelet Count 284, Mean Platelet Volume 10.4, Immature Granulocyte % (Auto) 0, Neutrophils (%) (Auto) 50, Lymphocytes (%) (Auto) 34, Monocytes (%) (Auto) 13, Eosinophils (%) (Auto) 2, Basophils (%) (Auto) 0, Neutrophils # (Auto) 3.6, Lymphocytes # (Auto) 2.4, Monocytes # (Auto) 0.9, Eosinophils # (Auto) 0.2, Basophils # (Auto) 0.0, Immature Granulocyte # (Auto) 0.0, Sodium Level 143, Potassium Level 3.8, Chloride Level 113, Carbon Dioxide Level 21, Anion Gap 9, Blood Urea Nitrogen 16, Creatinine 1.59, Estimat Glomerular Filtration Rate 36, BUN/Creatinine Ratio 10, Glucose Level 99, Calcium Level 9.1, Corrected Calcium 9.4, Magnesium Level 2.3, Total Bilirubin 0.4, Aspartate Amino Transf (AST/SGOT) 15, Alanine Aminotransferase (ALT/SGPT) 9, Alkaline Phosphatase 82, Total Protein 5.8, Albumin 3.6 Discharge Home Medications: Active Scripts Active Aspirin EC (Aspirin) 81 Mg Tablet.dr 81 Mg PO DAILY Atorvastatin Calcium 80 Mg Tablet 80 Mg PO DAILY Clopidogrel (Clopidogrel Bisulfate) 75 Mg Tablet 75 Mg PO DAILY Ondansetron Odt (Ondansetron) 4 Mg Tab.rapdis 4 Mg SL Q4H PRN Protonix (Pantoprazole Sodium) 40 Mg Tablet.dr 40 Mg PO DAILY Reported Oxybutynin Chloride 5 Mg Tablet 2.5 Mg PO DAILY TAKES OF A 5MG TAB Potassium Chloride 10 Meq Tab.er.prt 10 Meq PO DAILY Venlafaxine HCl ER (Venlafaxine HCl) 150 Mg Tab.er.24 150 Mg PO DAILY Centrum Adults Tablet (Multivitamin/Iron/Folic Acid) 1 Each Tablet 1 Each PO DAILY Clonidine HCl 0.1 Mg Tablet 0.1 Mg PO HS Claritin (Loratadine) 10 Mg Tab.rapdis 10 Mg PO DAILY Levothyroxine Sodium 50 Mcg Tablet 50 Mcg PO DAILY Famotidine 40 Mg Tablet 40 Mg PO DAILY Amlodipine Besylate 5 Mg Tablet 5 Mg PO DAILY Neurontin (Gabapentin) 300 Mg Capsule 300 Mg PO HS Metoprolol Succinate 50 Mg Tab.er.24h 50 Mg PO BID Losartan Potassium 50 Mg Tablet 50 Mg PO DAILY LAST FILLED 02-05-2021 #60/60 DAY SUPPLY Instructions to patient/family Please see electronic discharge instructions given to patient. Diagnosis/Problems Diagnosis/Problems (1) CVA (cerebral vascular accident) Qualifiers: Qualified Codes: I63.9 - Cerebral infarction, unspecified (2) Interstitial lung disease Status: Acute (3) Polymyositis (4) Chronic renal disease, stage IV MARLEY CAMPA DO Jan 23, 2023 06:50
[2023-01-23 08:11] VITALS: BP 153/69
[2023-01-23] MEDS: DOCUSATE SODIUM 100 MG CAPSULE PO SCH (08:20)
[2023-01-23] MEDS: ASPIRIN enteric coated 81MG TABLET PO SCH (08:23)
[2023-01-23] MEDS: meTOproloL SUCCINATE 50 MG (TOPROL XL) TAB PO SCH (08:24)
[2023-01-23] MEDS: SENNOSIDES 8.6 MG (SENOKOT) TAB PO SCH (08:24)
[2023-01-23] MEDS: CLOPIDOGREL 75 MG TABLET PO SCH (08:24)
[2023-01-23] MEDS ORDERED: OXYBUTYNIN (DITROPAN) 5 MG TAB PO SCH (09:00)
[2023-01-23] MEDS ORDERED: KCL 10 MEQ TAB (MICRO K) PO SCH (09:00)
[2023-01-23] MEDS ORDERED: amLODIPine 5 MG TABLET PO SCH (09:00)
[2023-01-23] MEDS ORDERED: VENlafaxine XR 75 MG (EFFEXOR XR) CAP PO SCH (09:00)
[2023-01-23] MEDS ORDERED: PANTOPRAZOLE 40 MG (PROTONIX) TAB PO SCH (09:00)
[2023-01-23] MEDS ORDERED: LEVOTHYROXINE 50 MCG (LEVOTHROID) TAB PO SCH (09:00)
[2023-01-23] MEDS ORDERED: LOSARTAN 50 MG (COZAAR) TAB PO SCH (09:00)
[2023-01-23] MEDS ORDERED: LORATADINE (CLARITIN) 10 MG TAB PO SCH (09:00)
[2023-01-23] MEDS ORDERED: FAMOTIDINE 20 MG (PEPCID) TABLET PO SCH (09:00)
[2023-01-23] MEDS ORDERED: MULTIVIT W/MINERALS TAB (THERAGRAN M) PO SCH (09:00)
--- NOTE | 2023-01-23 10:22 | Cardiology Progress Note ---
Subjective Date Seen by Provider: Jan 23, 2023 Time Seen by Provider: 10:20 Subjective/Events-last exam Patient was seen at bedside laying down comfortably, reporting that she is feeling better and returned to baseline. Review of Systems General: No Chills, No Night Sweats, No Fatigue, No Malaise, No Appetite, No Other HEENT: No Head Aches, No Visual Changes, No Eye Pain, No Ear Pain, No Dysphasia, No Sinus Congestion, No Post Nasal Drip, No Sore Throat, No Other Pulmonary: No Dyspnea, No Cough, No Pleuritic Chest Pain, No Other Cardiovascular: No: Chest Pain, Palpitations, Orthopnea, Paroxysmal Noc. Dyspnea, Edema, Lt Headedness, Other Focused Exam Lactate Level 01/21/23 13:17: Lactic Acid Level 1.92 Objective-Cardiology Exam Last Set of Vital Signs Vital Signs 01/22/23 01/23/23 01/23/23 18:47 08:11 08:16 Temp 37.0 Pulse 57 Resp 18 B/P (MAP) 153/69 (97) Pulse Ox 97 O2 Delivery Room Air O2 Flow Rate 0.00 FiO2 21 I&O Intake and Output 01/23/23 00:00 Intake Total 1290 ml Balance 1290 ml Intake Oral 1090 ml IV Total 200 ml # Voids 6 General: Alert, Oriented X3, Cooperative, No Acute Distress HEENT: Atraumatic, PERRLA Neck: Supple, No JVD, No Thyromegaly Lungs: Clear to Auscultation, Normal Air Movement Heart: Regular Rate, Normal S1, Normal S2, No Murmurs Abdomen: Normal Bowel Sounds, Soft, No Tenderness, No Hepatosplenomegaly, No Masses Extremities: No Clubbing, No Cyanosis, No Edema, Normal Pulses, No Tenderness/Swelling Skin: No Rashes, No Breakdown, No Significant Lesion Neuro: Other Psych/Mental Status: Mental Status NL, Mood NL Results Lab Laboratory Tests 01/23/23 05:34 A/P-Cardiology Admission Diagnosis Acute CVA Hypertension Polymyositis Chronic kidney disease Assessment/Plan Acute CVA with left-sided weakness Acute lacunar infarct in the thalamus on MRI. Started on aspirin and Plavix and statin Okay for discharge and follow-up as an outpatient 2D echo was done on December 23, 2022 with normal LV size, EF 60 to 65%, mild mitral regurgitation, PA pressure 25 to 30 mmHg Hypertension, currently controlled. Monitor blood pressure. Patient ran out off her blood pressure medication for 2 days. She was started back recently, did not check her blood pressure at home. Hyperlipidemia, LDL 146 Started on Lipitor 80 mg daily Monitor lipids Confusion, better at this time. History of polymyositis. Following with [facility], maintained on Rituxan. Chronic kidney disease stage IV. Continue to monitor renal function History of pulmonary fibrosis, clinically stable. Gastroesophageal reflux disease Hypothyroidism. Followed and managed by primary care physician SHRUTHI RODRIGEZ MD Jan 23, 2023 10:22
[2023-01-23 12:25] VITALS: BP 138/72
== END 2023-01-23 12:45 | DRG 65 ==
LOC: EDUNIT# 12:28 → ER 12:30 → ICU 14:59 → 4TH 01-22 13:22
PROVIDERS: ADMIT Internal Medicine; ATTEND Internal Medicine
DX: I63.9 Cerebral infarction, unspecified (principal); G81.94 Hemiplegia, unspecified affecting left nondominant side; N18.4 Chronic kidney disease, stage 4 (severe); M33.20 Polymyositis, organ involvement unspecified; M21.372 Foot drop, left foot; R41.0 Disorientation, unspecified; R29.703 NIHSS score 3; I12.9 Hypertensive chronic kidney disease with stage 1 through stage 4 chronic kidney disease, or unspecified chronic kidney disease; J84.10 Pulmonary fibrosis, unspecified; E78.00 Pure hypercholesterolemia, unspecified; G62.9 Polyneuropathy, unspecified; K21.9 Gastro-esophageal reflux disease without esophagitis; E03.9 Hypothyroidism, unspecified; I34.0 Nonrheumatic mitral (valve) insufficiency; Z79.899 Other long term (current) drug therapy
CPT/HCPCS: 36415; 70450; 70544; 70551; 71045; 80053; 80061; 82947; 83605; 83735; 84100; 84484; 85025; 85379; 85610; 85730; 87081; 93005; 93041; 93306; 93880; 94760

== ENCOUNTER 2023-01-23 12:55 | Inpatient (IN) | payer MEDICARE, OTHER ==
[~2023-01-23] VITALS: Ht 155 cm; Wt 80.7 kg
--- NOTE | 2023-01-23 12:10 | PM&R Post Admission Assessment ---
PM&R Date of Visit: Jan 23, 2023 Time of Visit: 13:00 History of Present Illness Chief complaint: CVA with left-sided weakness and dysarthria found MRI confirmed acute stroke of right thalamus HPI: This is a 67-year-old female clinic patient of Dr. Maya who has a past medical history of polymyositis and chronic kidney disease with immunosuppression from Rituxan who presented to inpatient rehab following a CVA. She was hesitant about coming to inpatient rehab instead of going directly home but her daughter who is a hospice nurse and I highly recommended a short stay in inpatient rehab given the fact of confirmed CVA with left-sided weakness and left foot drop and continued episodes of dysarthria. Discharge summary from acute care: Hospital course: Patient had an uneventful hospital course before discharging to inpatient rehab to obtain aggressive PT OT with AFO brace due to left foot drop. Patient was not a tPA candidate she presented considering her elevated creatinine we could not get CT angiogram but it did not appear as large thrombosis. MRI confirmed acute stroke of the right thalamus. Plavix and aspirin statin initiated per protocol. Carotid ultrasound was normal. Echocardiogram was reviewed by Dr. Bertrand. She will remain on telemetry. She was hesitant to come to patient rehab but due to the fact that she did not receive any therapy today she has a left foot drop we decided together with her daughter who is her first that would be in her best interest to come to inpatient rehab Past Cdqjrhy-Dvaeqc-Exbdgc Hx Past Med/Social Hx: Reviewed Nursing Past Med/Soc Hx, Reviewed and Corrections made Patient Social History Marrital Status: single Employed/Student: employed ([employer]) Alcohol Use: Denies Use Smoking Status: Never a Smoker 2nd Hand Smoke Exposure: No Recent Hopitalizations: No Immunizations Up To Date Tetanus Booster (TDap): Unknown Pediatric: Yes Seasonal Allergies Seasonal Allergies: Yes Past Medical History Surgeries: Gallbladder Respiratory: Pulmonary Fibrosis Currently Using CPAP: No Currently Using BIPAP: No Cardiac: High Cholesterol, Hypertension Neurological: Neuropathy Reproductive: No Menopausal Genitourinary: Renal Failure Gastrointestinal: Gastroesophageal Reflux polymyositis Endocrine: Hypothyroidsim Loss of Vision: Denies Hearing Impairment: Denies Psychosocial: Anxiety, Depression History of Blood Disorders: Yes (ANEMIA) Adverse Reaction to Blood Kumar: No Family History No Pertinent Family Hx 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 Allergy/Meds/Data Review Allergies Coded Allergies: No Known Drug Allergies (Verified , 09/01/07) Home Medications Scheduled Amlodipine Besylate (Amlodipine Besylate), 5 MG PO DAILY, (Reported) Aspirin (Aspirin EC), 81 MG PO DAILY Atorvastatin Calcium (Atorvastatin Calcium), 80 MG PO DAILY Clonidine HCl (Clonidine HCl), 0.1 MG PO HS, (Reported) Clopidogrel Bisulfate (Clopidogrel), 75 MG PO DAILY Famotidine (Famotidine), 40 MG PO DAILY, (Reported) Gabapentin (Neurontin), 300 MG PO HS, (Reported) Levothyroxine Sodium (Levothyroxine Sodium), 50 MCG PO DAILY, (Reported) Loratadine (Claritin), 10 MG PO DAILY, (Reported) Losartan Potassium (Losartan Potassium), 50 MG PO DAILY, (Reported) Metoprolol Succinate (Metoprolol Succinate), 50 MG PO BID, (Reported) Multivitamin/Iron/Folic Acid (Centrum Adults Tablet), 1 EACH PO DAILY, (Reported) Oxybutynin Chloride (Oxybutynin Chloride), 2.5 MG PO DAILY, (Reported) Pantoprazole Sodium (Protonix), 40 MG PO DAILY Potassium Chloride (Potassium Chloride), 10 MEQ PO DAILY, (Reported) Venlafaxine HCl (Venlafaxine HCl ER), 150 MG PO DAILY, (Reported) Scheduled PRN Ondansetron (Ondansetron Odt), 4 MG SL Q4H PRN for NAUSEA/VOMITING Discontinued Medications Albuterol Sulfate (Ventolin Hfa), 18 GM INH Q6H Discontinued Reason: No Longer Taking Atorvastatin Calcium (Atorvastatin Calcium), 20 MG PO DAILY, (Reported) Azithromycin (Azithromycin), 250 MG PO DAILY Cefdinir (Cefdinir), 300 MG PO BID Cephalexin (Cephalexin), 500 MG PO BID Lactobac Cmb #3/Fos/Pantethine (Probiotic & Acidophilus Cap), 1 EACH PO TID Mycophenolate Mofetil (Cellcept), 500 MG PO BID, (Reported) Discontinued Reason: No Longer Taking [paxlovid], 150 MG PO ONCE Current Medications Current Medications Reviewed Review of Systems Constitutional: see HPI, dizziness, malaise, weakness EENTM: no symptoms reported Respiratory: no symptoms reported Cardiovascular: no symptoms reported Gastrointestinal: no symptoms reported Genitourinary: no symptoms reported Musculoskeletal: back pain, joint pain Skin: no symptoms reported Psychiatric/Neurological: Anxiety, Depressed, Numbness, Tremors, Weakness All Other Systems Reviewed Negative Unless Noted: Yes Physical Exam Physical Exam Vital Signs Capillary Refill : Height, Weight, BMI Height: 5'1.00" Weight: 169lbs. 4.8oz. [id number]; 33.42 BMI Method:Stated General Appearance: No Apparent Distress, WD/WN, Chronically ill Eyes: Bilateral Eye Normal Inspection, Bilateral Eye PERRL HEENT: PERRL/EOMI, Normal ENT Inspection, Pharynx Normal Neck: Full Range of Motion, Normal Inspection, Non Tender, Supple, Carotid Bruit Respiratory: Chest Non Tender, Lungs Clear, Normal Breath Sounds, No Accessory Muscle Use, No Respiratory Distress Cardiovascular: Regular Rate, Rhythm, No Edema, No Gallop, No JVD, No Murmur, Normal Peripheral Pulses Gastrointestinal: Normal Bowel Sounds, No Organomegaly, No Pulsatile Mass, Non Tender, Soft Back: Normal Inspection, No CVA Tenderness, No Vertebral Tenderness Extremity: Normal Capillary Refill, Normal Inspection, Normal Range of Motion (Except left leg 3/5 strength with left foot drop), Non Tender, No Calf Tenderness, No Pedal Edema Neurologic/Psychiatric: Alert, Oriented x3, No Motor/Sensory Deficits, Normal Mood/Affect, Abnormal Gait, Motor Weakness, Other (Dysarthria) Skin: Normal Color, Warm/Dry Lymphatic: No Adenopathy PM&R Medical Assessment & Plan REHAB/MEDICAL ASSESSMENT AND PLAN: REHAB IMPAIRMENT GROUP: CVA of right thalamus with left-sided weakness and dysarthria ETIOLOGIC DIAGNOSIS: Ischemic stroke of right thalamus not a tPA candidate The comorbidities that impact the patients function and/or functional outcome by: Chronic kidney disease stage IV, polymyositis, immunosuppressed with Rituxan, severe malignant hypertension REHAB PLAN: The patient is being admitted to our comprehensive inpatient rehabilitation facility and can tolerate the intensity of service consisting of at least: 180 minutes of therapy a day, 5 out of 7 days a week Rehab treatment will consist of: PT and OT will focus on regaining function with use of assistive devices with possible AFO for the left leg and foot will increase independence in ADLs and prevent falls while monitoring blood pressure The patient/family has a good understanding of our discharge process and will benefit from an interdisciplinary inpatient rehabilitation program. The patient has potential to make improvement and is in need of at least two of the following multidisciplinary therapies including but not limited to physical, occupational, speech, and prosthetics and orthotics. Additionally the patient will need services from respiratory, nutritional services, wound care, psychology, etc. (Customize this to each patient). Given the patients complex condition and risk of further medical complications, rehabilitation services cannot be safely or effectively provided at a lower level of care such as a senior living facility. BARRIERS TO DISCHARGE: Left-sided weakness with fall risk and labile blood pressure ESTIMATED LOS: 7 days DISPOSITION: Home alone with home health RELEVANT CHANGES SINCE PREADMISSION SCREENING: I have compared the patients medical and functional status at the time of the preadmission screening and there are: No changes PROGNOSIS: Good REHABILITATION GOALS: 1. PT and OT will focus on regaining function with use of assistive devices with possible AFO for the left leg and foot will increase independence in ADLs and prevent falls while monitoring blood pressure All the above goals were reviewed with the patient and he/she is in agreement. By signing this document, I acknowledge that I have personally performed a full physical examination on this patient within 24 hours of admission to this inpatient rehabilitation facility and have determined the patient to be able to tolerate the above course of treatment at an intensive level for a reasonable period of time. I will be completing a detailed individualized Plan of Care for this patient by day #4 of the patients stay based upon the Preadmission Screen, the Post-Admission Evaluation, and the therapy evaluations. Admission Dx/Comorbidities: (1) CVA (cerebral vascular accident) ICD Codes: I63.9 - Cerebral infarction, unspecified (2) Chronic renal disease, stage IV ICD Codes: N18.4 - Chronic kidney disease, stage 4 (severe) (3) Interstitial lung disease Status: Acute ICD Codes: J84.9 - Interstitial pulmonary disease, unspecified (4) Polymyositis ICD Codes: M33.20 - Polymyositis, organ involvement unspecified 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 with left foot drop needs AFO Recent hospital stay at for TIA 09/2022 with hypertensive urgency Confusion and non-purposeful noncompliance with blood pressure medication currently and reported on records 09/2022 Polymyositis Chronic kidney disease stage IV Pulmonary fibrosis Immunocompromised with Rituxan GERD Hypothyroidism Plan: Aspirin Plavix and statin Echo and carotid ultrasound reviewed Cardiology evaluation appreciated Telemetry May need loop recorder Home meds Monitor blood pressure PT and OT MARLEY CAMPA DO Jan 23, 2023 12:10
[~2023-01-23 12:55] MED LIST changes: +ACETAMINOPHEN 325 MG TABLET PO PRN; +ALPRAZolam 0.25 MG TABLET PO PRN; +ASPI-1238 PO; +ATOR80TA76 PO; +BISACODYL 10 MG SUPPOSITORY PR PRN; +CALCIUM CARBONATE 500 MG CHEW TABLET PO PRN; +CLOP75TA28 PO; +DOCUSATE SODIUM 100 MG CAPSULE PO PRN; +LACTULOSE SYRUP 10GM/15ML (ENULOSE) 30ML UDC PO PRN; +LOPERAMIDE 2 MG (IMODIUM) TABLET PO PRN; +MELATONIN 3 MG TABLET PO PRN; +ONDANSETRON 4 MG (ZOFRAN) ORAL DISSOLVE TAB PO PRN; +Sodium Phosphate/Sodium Biphosphate ADULT enema PR PRN; +diphenhydrAMINE 25 MG TABLET PO PRN; +guaiFENesin/CODEINE 10ML UDC PO PRN
[2023-01-23 13:00] VITALS: BP 205/91
[2023-01-23 13:08] VITALS: BP 194/92
[2023-01-23] MEDS ORDERED: hydrALAZINE INJECTION 20 MG/ML VIAL IV PRN (13:15)
[2023-01-23] MEDS ORDERED: cloNIDine 0.1 MG TABLET PO PRN (13:15)
[2023-01-23 13:20] VITALS: BP 184/92
[2023-01-23] MEDS ORDERED: diphenhydrAMINE 25 MG TABLET PO PRN (13:30)
[2023-01-23] MEDS ORDERED: ACETAMINOPHEN 325 MG TABLET PO PRN (13:30)
[2023-01-23] MEDS ORDERED: LACTULOSE SYRUP 10GM/15ML (ENULOSE) 30ML UDC PO PRN (13:30)
[2023-01-23] MEDS ORDERED: oxyCODONE IMMEDIATE RELEASE 5 MG TABLET PO PRN (13:30)
[2023-01-23] MEDS ORDERED: RT-ALBUTEROL SULF 2.5 MG/3 ML PRE-MIX VIAL INH PRN (13:30)
[2023-01-23] MEDS ORDERED: ANTACID SUSP 30 ML UDC (MYLANTA) PO PRN (13:30)
[2023-01-23] MEDS ORDERED: ONDANSETRON 4 MG (ZOFRAN) ORAL DISSOLVE TAB SL PRN (13:30)
[2023-01-23] MEDS ORDERED: MELATONIN 3 MG TABLET PO PRN (13:30)
[2023-01-23] MEDS ORDERED: CALCIUM CARBONATE 500 MG CHEW TABLET PO PRN (13:30)
[2023-01-23] MEDS ORDERED: BISACODYL 10 MG SUPPOSITORY PR PRN (13:30)
[2023-01-23] MEDS ORDERED: diphenhydrAMINE INJ 50 MG/ML VIAL IVP PRN (13:30)
[2023-01-23] MEDS ORDERED: polyethylene glycoL POWDER 17 GM (MIRALAX) PACK PO PRN (13:30)
[2023-01-23] MEDS ORDERED: ONDANSETRON 4 MG/2 ML (SDV) Z0FRAN IV PRN (13:30)
[2023-01-23] MEDS ORDERED: HYDROmorphone INJECTION 2 MG/ML VIAL IV PRN (13:30)
[2023-01-23] MEDS ORDERED: MILK OF MAGNESIA 400 MG/5 ML 30 ML UDC PO PRN (13:30)
[2023-01-23] MEDS: cloNIDine 0.1 MG TABLET PO SCH ×2 (13:39→20:50)
[2023-01-23 15:12] VITALS: BP 130/64
[2023-01-23 16:55] VITALS: BP 130/64
[2023-01-23 19:43] VITALS: BP 154/95
[2023-01-23 19:51] LABS: TRIGLYCERIDES 237 MG/DL (<150); VLDL CHOLESTEROL 47 MG/DL (5-40)
[2023-01-23 19:56] LABS: CHOLESTEROL 221 MG/DL (< 200); HDL CHOLESTEROL 33 MG/DL (40-60)
[2023-01-23] MEDS: DOCUSATE SODIUM 100 MG CAPSULE PO SCH (20:50)
[2023-01-23] MEDS: GABAPENTIN 300 MG CAPSULE PO SCH (20:50)
[2023-01-23] MEDS: polyethylene glycoL POWDER 17 GM (MIRALAX) PACK PO SCH (20:50)
[2023-01-23] MEDS: meTOproloL SUCCINATE 50 MG (TOPROL XL) TAB PO SCH (20:50)
[2023-01-23] MEDS: SENNA W/DOCUSATE (SENOKOT S) TABLET PO SCH (20:51)
[2023-01-23] MEDS ORDERED: SENNOSIDES 8.6 MG (SENOKOT) TAB PO SCH (21:00)
[2023-01-23] MEDS ORDERED: DOCUSATE SODIUM 100 MG CAPSULE PO SCH (21:00)
[2023-01-24 05:46] LABS: BASOPHILS % (AUTO) 1 % (0-10); EOSINOPHILS # (AUTO) 0.1 10^3/uL (0.0-0.3); EOSINOPHILS % (AUTO) 2 % (0-10); HEMATOCRIT 38 % (35-52); HEMOGLOBIN 12.3 g/dL (11.5-16.0); LYMPHOCYTES # (AUTO) 2.8 10^3/uL (1.0-4.0); LYMPHOCYTES % (AUTO) 34 % (12-44); MEAN CORPUSCULAR HEMOGLOBIN 28 pg (25-34); MEAN CORPUSCULAR HGB CONC 33 g/dL (32-36); MEAN CORPUSCULAR VOLUME 87 fL (80-99); MEAN PLATELET VOLUME 10.3 fL (9.0-12.2); MONOCYTES # (AUTO) 1.3 10^3/uL (0.0-1.0); MONOCYTES % (AUTO) 16 % (0-12); NEUTROPHILS # (AUTO) 3.9 10^3/uL (1.8-7.8); NEUTROPHILS % (AUTO) 48 % (42-75); PLATELET COUNT 260 10^3/uL (130-400); WHITE BLOOD COUNT 8.2 10^3/uL (4.3-11.0)
[2023-01-24 06:03] LABS: ALBUMIN 3.7 GM/DL (3.2-4.5); POTASSIUM 3.8 MMOL/L (3.6-5.0)
[2023-01-24 06:04] LABS: CALCIUM 9.4 MG/DL (8.5-10.1)
[2023-01-24 06:07] LABS: BILIRUBIN,TOTAL 0.4 MG/DL (0.1-1.0)
[2023-01-24 06:09] LABS: CREATININE SERUM 1.52 MG/DL (0.60-1.30)
--- NOTE | 2023-01-24 06:20 | PM&R Progress Note ---
Subjective HPI/CC On Admission Date Seen by Provider: Jan 24, 2023 Time Seen by Provider: 09:00 Subjective/Events-last exam 01/24/2023: Much improved overall Walking fairly well Left leg will be assessed for AFO if foot drop is still present Labs reviewed Review of Systems General: Fatigue, Malaise Objective Exam Vital Signs Vital Signs Date Time Temp Pulse Resp B/P (MAP) Pulse Ox O2 Delivery O2 Flow Rate FiO2 01/24/23 19:55 36.6 51 20 149/74 (99) 96 Room Air Capillary Refill : General Appearance: No Apparent Distress, WD/WN, Chronically ill HEENT: PERRL/EOMI, Normal ENT Inspection, Pharynx Normal Neck: Full Range of Motion, Normal Inspection, Non Tender, Supple, Carotid Bruit Respiratory: Chest Non Tender, Lungs Clear, Normal Breath Sounds, No Accessory Muscle Use, No Respiratory Distress Cardiovascular: Regular Rate, Rhythm, No Edema, No Gallop, No JVD, No Murmur, Normal Peripheral Pulses Gastrointestinal: Normal Bowel Sounds, No Organomegaly, No Pulsatile Mass, Non Tender, Soft Back: Normal Inspection, No CVA Tenderness, No Vertebral Tenderness Extremity: Normal Capillary Refill, Normal Inspection, Normal Range of Motion (Except left leg 3/5 strength with left foot drop), Non Tender, No Calf Tenderness, No Pedal Edema Neurologic/Psychiatric: Alert, Oriented x3, No Motor/Sensory Deficits, Normal Mood/Affect, Abnormal Gait, Motor Weakness, Other (Dysarthria) Skin: Normal Color, Warm/Dry Lymphatic: No Adenopathy Results/Procedures Lab Laboratory Tests 01/24/23 05:42 Patient resulted labs reviewed. FIM Transfers Therapy Code Descriptions/Definitions Functional [place] Measure: 0=Not Assessed/NA 4=Minimal Assistance 1=Total Assistance 5=Supervision or Setup 2=Maximal Assistance 6=Modified [place] 3=Moderate Assistance 7=Complete IndependenceSCALE: Activities may be completed with or without assistive devices. 0-Anzajhusrz-sglegfs completes the activity by him/herself with no assistance from a helper. 5-Set-up or Clean-up Assistance-helper sets up or cleans up; patient completes activity. [place] assists only prior to or following the activity. 4-Supervision or Touching Assistance-helper provides verbal cues and/or touching/steadying and/or contact guard assistance as patient completes activity. Assistance may be provided throughout the activity or intermittently. 3-Partial/Moderate Assistance-helper does LESS THAN HALF the effort. [place] lifts, holds or supports trunk or limbs, but provides less than half the effort. 2-Substantial/Maximal Assistance-helper does MORE THAN HALF the effort. [place] lifts or holds trunk or limbs and provides more than half the effort. 8-Qyqummuek-hdonep does ALL the effort. Patient does none of the effort to complete the activity. Or, the assistance of 2 or more helpers is required for the patient to complete the activity. If activity was not attempted, code reason: 7-Patient Refused. 9-Not Applicable-not attempted and the patient did not perform the activity before the current illness, exacerbation or injury. 10-Not Attempted due to Environmental Limitations-(lack of equipment, weather restraints, etc.). 88-Not Attempted due to Medical Conditions or Safety Concerns. 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 with left foot drop needs AFO Recent hospital stay at for TIA 09/2022 with hypertensive urgency Confusion and non-purposeful noncompliance with blood pressure medication currently and reported on records 09/2022 Polymyositis Chronic kidney disease stage IV Pulmonary fibrosis Immunocompromised with Rituxan GERD Hypothyroidism Plan: Aspirin Plavix and statin Echo and carotid ultrasound reviewed Cardiology evaluation appreciated Telemetry May need loop recorder Home meds Monitor blood pressure PT and OT 01/24/2023: Monitor closely Aggressive rehab Monitor BP (1) CVA (cerebral vascular accident) (2) Chronic renal disease, stage IV (3) Interstitial lung disease Status: Acute (4) Polymyositis MARLEY CAMPA DO Jan 24, 2023 06:20
[2023-01-24 07:38] VITALS: BP 154/95
[2023-01-24 07:56] VITALS: BP_SYST 154; BP_SYST 192; BP_DIAS 101; BP_DIAS 95
--- NOTE | 2023-01-24 08:07 | Physical Therapy Evaluation ---
PT Evaluation-General Medical Diagnosis Admission Date Jan 23, 2023 at 12:55 Medical Diagnosis: CVA Onset Date: Jan 21, 2023 Therapy Diagnosis Therapy Diagnosis: Weakness; Decreased functional mobility Height/Weight Height (Feet): 5 Height (Inches): 1.00 Weight (Pounds): 169 Weight (Ounces): 4.8 Precautions Precautions/Isolations: Fall Prevention, Standard Precautions Weight Bear Status Right Lower Extremity: Right Full Weight Bearing Left Lower Extremity: Left Full Weight Bearing Referral Physician: Ruthann Reason for Referral: Evaluation/Treatment Medical History Pertinent Medical History: HTN, Hypothroidism Additional Medical History Pulmonary Fibrosis, Anxiety, Depression, High Cholesterol, Hypertension, Neuropathy, Renal failure, GERD Current History CVA on 01/22/23; Admitted to ARU on 01/23/23 Reviewed History: Yes Social History Home: Apartment Current Living Status: Alone Entry Into Home: Level Entry PT Steps Into Home: 0 PT Steps Inside Home: 0 Pt lives in an apartment by herself with no steps and handicap accessible. Walk- in shower, no SC, GBs, standard toilet Prior Prior Level of Function SCALE: Activities may be completed with or without assistive devices. 4-Saldueheyz-xisqyne completes the activity by him/herself with no assistance from a helper. 5-Set-up or Clean-up Assistance-helper sets up or cleans up; patient completes activity. [place] assists only prior to or following the activity. 4-Supervision or Touching Assistance-helper provides verbal cues and/or touching/steadying and/or contact guard assistance as patient completes activity. Assistance may be provided throughout the activity or intermittently. 3-Partial/Moderate Assistance-helper does LESS THAN HALF the effort. [place] lifts, holds or supports trunk or limbs, but provides less than half the effort. 2-Substantial/Maximal Assistance-helper does MORE THAN HALF the effort. [place] lifts or holds trunk or limbs and provides more than half the effort. 1-Lyezdvhcv-bmtnbx does ALL the effort. Patient does none of the effort to complete the activity. Or, the assistance of 2 or more helpers is required for the patient to complete the activity. If activity was not attempted, code reason: 7-Patient Refused. 9-Not Applicable-not attempted and the patient did not perform the activity before the current illness, exacerbation or injury. 10-Not Attempted due to Environmental Limitations-(lack of equipment, weather restraints, etc.). 88-Not Attempted due to Medical Conditions or Safety Concerns. Bed Mobility: 6 Transfers (B,C,W/C): 6 Gait: 6 Stairs: 6 Wheelchair Mobility: 9 Indoor Mobility (Ambulation): Independent Stairs: Independent Prior Devices Use: None At PLOF, pt was Ind with no AD and driving. Pt does not have any AD. PT Evaluation-Current Subjective Pt is agreeable to PT Eval. Pain Numeric Pain Scale: 0-No Pain Location: No Pain Reported Section J - Health Conditions 1. Rarely or not at all 2. Occasionally 3. Frequently 4. Almost constantly 8. Unable to answer Pain Effect on Sleep: 1 Pain Interference with Therapy: 1 Pain Interference w/Day-to-Day: 1 Pt/Family Goals Safely return home Objective Patient Orientation: Person, Place, Time, Situation ROM/Strength ROM Upper Extremities See OT note ROM Lower Extremities WFL Strength Upper Extremities See OT note Strength Lower Extremities B LE MMT = 3+/5 grossly Integumentary/Posture Integumentary See nurses note Bowel Incontinence: No Bladder Incontinence: No Sensory Vision: Wears Glasses Hearing: Functional Hand Dominance: Right Sensation Right Upper Extremit: Intact Sensation Left Upper Extremity: Intact Sensation Right Lower Extremit: Intact Sensation Left Lower Extremity: Intact Transfers Roll Left & Right (QC): 4 (SBA ) Sit to Lying (QC): 4 (SBA) Lying to Sitting/Side of Bed(Q: 4 (SBA) Sit to Stand (QC): 4 (CGA) Chair/Abd-ge-Txipo Xfer(QC): 4 (CGA) Toilet Transfer (QC): 4 (CGA) Car Transfer (QC): 4 (CGA) Gait Does the Patient Walk?: Yes Mode of Locomotion: Walk Anticipated Mode of Locomotion: Walk Walk 10 feet (QC): 4 (CGA) Walk 50 ft with 2 Turns(QC): 4 (CGA) Walk 150 ft (QC): 4 (CGA) Walking 10ft/uneven surface-QC: 4 (CGA) Distance: 150ft Gait Assistive Device: None Wheelchair Training Does the Pt Use a Wheelchair?: No Wheel 50 ft with 2 turns (QC): 9 Wheel 150 ft (QC): 9 Type of Wheelchair: N/A Stairs #of Steps: 12 1 Step (curb) (QC): 4 (CGA) 4 Steps (QC): 4 (CGA) 12 Steps (QC): 4 (CGA) Balance Sitting Static: Normal Sitting Dynamic: Good Standing Static: Good Standing Dynamic: Good Picking up an Object (QC): 4 Special Test Comments [facility] standing balance scale = 4/5 (goal = 5/5) Treatment PT eval completed; SBA for bed mobility; CGA for transfers and walking with no AD, as well as stairs Assessment/Needs Pt tolerated PT well Rehab Potential: Good Post Rehab Potential-Barriers: balance Equipment Needs N/A PT Assistant Superintendent Goals Care Home Goals PT Care Home Goals Time Frame: Jan 31, 2023 Roll Left to Right (QC): 6 (Pt will be Mod I with all aspects of functional mobility with no AD, in order to be at PLOF and safely d/c home. ) Sit to Lying (QC): 6 (Pt will be Mod I with all aspects of functional mobility with no AD, in order to be at PLOF and safely d/c home. ) Lying-Sitting on Side/Bed(QC): 6 (Pt will be Mod I with all aspects of functional mobility with no AD, in order to be at PLOF and safely d/c home. ) Sit to Stand (QC): 6 (Pt will be Mod I with all aspects of functional mobility with no AD, in order to be at PLOF and safely d/c home. ) Chair/Gap-zf-Hbsnd Xfer(QC): 6 (Pt will be Mod I with all aspects of functional mobility with no AD, in order to be at PLOF and safely d/c home. ) Toilet/Commode Transfer (QC): 6 (Pt will be Mod I with all aspects of functional mobility with no AD, in order to be at PLOF and safely d/c home. ) Car Transfer (QC): 6 (Pt will be Mod I with all aspects of functional mobility with no AD, in order to be at PLOF and safely d/c home. ) Does the Patient Walk: Yes Walk 10 feet (QC): 6 (Pt will be Mod I with all aspects of functional mobility with no AD, in order to be at PLOF and safely d/c home. ) Walk 10ft-Uneven Surface(QC): 6 (Pt will be Mod I with all aspects of functional mobility with no AD, in order to be at PLOF and safely d/c home. ) Walk 50ft with 2 Turns (QC): 6 (Pt will be Mod I with all aspects of functional mobility with no AD, in order to be at PLOF and safely d/c home. ) Walk 150 ft (QC): 6 (Pt will be Mod I with all aspects of functional mobility w ith no AD, in order to be at PLOF and safely d/c home. ) Does the Pt use WC or Scooter?: No Wheel 50 feet with 2 turns (QC: 9 Type: N/A Wheel 150 feet: 9 Type: N/A 1 Step (curb) (QC): 6 (Pt will be Mod I with all aspects of functional mobility with no AD, in order to be at PLOF and safely d/c home. ) 4 Steps (QC): 6 (Pt will be Mod I with all aspects of functional mobility with no AD, in order to be at PLOF and safely d/c home. ) 12 Steps (QC): 6 (Pt will be Mod I with all aspects of functional mobility with no AD, in order to be at PLOF and safely d/c home. ) Picking up an Object (QC): 6 (Pt will be Mod I with all aspects of functional mobility with no AD, in order to be at PLOF and safely d/c home. ) [facility] standing balance goal = 5/5 PT Plan Problem List Problem List: Activity Tolerance, Functional Strength, Safety, Balance, Gait, Transfer, Bed Mobility Treatment/Plan Treatment Plan: Continue Plan of Care Treatment Plan: Bed Mobility, Concurrent Therapy, Education, Functional Activity Ghanshyam, Functional Strength, Group Therapy, Gait, Safety, Therapeutic Exercise, Transfers Treatment Duration: Jan 31, 2023 Frequency: At least 5 of 7 days/Wk (IRF) Estimated Hrs Per Day: 1.5 hours per day Patient and/or Family Agrees t: Yes Safety Risks/Education Patient Education: Gait Training, Transfer Techniques, Steps, Safety Issues Teaching Recipient: Patient Teaching Methods: Demonstration, Discussion Response to Teaching: Verbalize Understanding, Return Demonstration, Reinforcement Needed Discharge Recommendations Therapy Discharge Recommendati: Home & Family Discharge Status/Home Program Cont per POC Barriers to Progress balance Target Placement Home Time Time In: 800 Time Out: 830 DATE: Jan 24, 2023 Total Billed Treatment Time: 30 Total Billed Treatment 30 min EVL SWENSON,ROLY PT Jan 24, 2023 08:07
--- NOTE | 2023-01-24 08:24 | Cardiology Progress Note ---
Subjective Date Seen by Provider: Jan 24, 2023 Time Seen by Provider: 08:10 Subjective/Events-last exam Patient is sitting up in bed, denies any chest pain. Objective-Cardiology Exam Last Set of Vital Signs Vital Signs 01/24/23 09:00 Pulse 58 B/P (MAP) 134/69 (90) I&O Intake and Output 01/24/23 00:00 Intake Total 650 ml Balance 650 ml Intake Oral 650 ml # Voids 1 Daily Weight Change No General: Alert, Oriented X3 HEENT: Atraumatic, PERRLA Neck: +2 Carotid Pulse No Bruit Lungs: Clear to Auscultation Heart: Regular Rate, Normal S1, Normal S2 Abdomen: Soft, No Tenderness Extremities: No Edema Skin: No Rashes, No Significant Lesion Psych/Mental Status: Mental Status NL, Mood NL Results Lab Laboratory Tests 01/24/23 05:42 A/P-Cardiology Admission Diagnosis CVA HTN HLP CKD Assessment/Plan Acute CVA with left-sided weakness Acute lacunar infarct in the thalamus on MRI. Started on aspirin and Plavix and statin Continue on telemetry 2D echo was done on December 23, 2022 with normal LV size, EF 60 to 65%, mild mitral regurgitation, PA pressure 25 to 30 mmHg Hypertension, currently controlled. Monitor blood pressure. Patient ran out off her blood pressure medication for 2 days. She was started back recently, did not check her blood pressure at home. Hyperlipidemia, LDL 146 Started on Lipitor 80 mg daily Monitor lipids Confusion, better at this time. History of polymyositis. Following with [facility], maintained on Rituxan. Chronic kidney disease stage IV. Continue to monitor renal function History of pulmonary fibrosis, clinically stable. Gastroesophageal reflux disease Hypothyroidism. Followed and managed by primary care physician Supervisory-Addendum Brief Supervisory Addendum Participated in pt care: history, MDM, physical Personally performed: exam, history, MDM Care discussed with: ANASTASIA Results interpretation: Verified all documentation Notes: Patient was seen and evaluated with Yanira, examination performed, management plan was discussed, agree with the current scribed note, I made few changes to the note using Italic font Patient was seen at bedside, laying down comfortably Feeling better Continue to monitor, continue on aspirin and Plavix YANIRA GOOD Jan 24, 2023 08:24 SHRUTHI RODRIGEZ MD Jan 24, 2023 10:57
--- NOTE | 2023-01-24 08:39 | Occupational Therapy Eval ---
OT Evaluation-General/PLF Medical Diagnosis Admission Date Jan 23, 2023 at 12:55 Medical Diagnosis: CVA Onset Date: Jan 21, 2023 Therapy Diagnosis Therapy Diagnosis: UE weakness, impiared FMC Height/Weight Height (Feet): 5 Height (Inches): 1.00 Weight (Pounds): 169 Weight (Ounces): 4.8 Precautions Precautions/Isolations: Fall Prevention, Standard Precautions Referral Physician: Ruthann Referral Reason: Activity Tolerance, Self Care, Evaluation/Treatment, Strengthening/ROM Medical History Pertinent Medical History: HTN, Hypothroidism Current History 67-year-old female clinic patient of Dr. Bertrand for cardiac evaluation who has a past medical history of polymyositis managed by rheumatology up at and chronic kidney disease managed by nephrology who presented to the ER brought by her daughter when she woke up and felt like her leg was " acting funny" so she went to work at [employer] but kept on running into things and she called her daughter and her daughter thought her speech was slurred. To note she had not taken her blood pressure medications for about 4 days and had just refilled them, she took those doses and less than 12 hours later so she was noted to be hypotensive requiring gentle IV fluids in the ER. She has a history of chronic kidney disease stage IV. CT scan was reviewed and stroke neurologist up at And they recommended MRA and MRI which showed a small lacunar stroke In the thalamus and MRA showed no evidence of large vessel thrombosis. it was recommended to start aspirin and Plavix statin check carotid ultrasound echocardiogram and monitor in the ICU. Her blood pressure is now much improved. Dr. Bertrand has been consulted. She may need a loop recorder. Her daughter is a hospice nurse for [employer] [facility] and she is at the bedside. Reviewed History: Yes Social History Home: Apartment Current Living Status: Alone Entry Into Home: Level Entry Steps Into Home: 0 Steps Inside Home: 0 ADL-Prior Level of Function SCALE: Activities may be completed with or without assistive devices. 2-Cmodchciej-wgobthc completes the activity by him/herself with no assistance from a helper. 5-Set-up or Clean-up Assistance-helper sets up or cleans up; patient completes activity. [place] assists only prior to or following the activity. 4-Supervision or Touching Assistance-helper provides verbal cues and/or touching/steadying and/or contact guard assistance as patient completes activity. Assistance may be provided throughout the activity or intermittently. 3-Partial/Moderate Assistance-helper does LESS THAN HALF the effort. [place] lifts, holds or supports trunk or limbs, but provides less than half the effort. 2-Substantial/Maximal Assistance-helper does MORE THAN HALF the effort. [place] lifts or holds trunk or limbs and provides more than half the effort. 0-Wwgwoynqn-urxcfz does ALL the effort. Patient does none of the effort to complete the activity. Or, the assistance of 2 or more helpers is required for the patient to complete the activity. If activity was not attempted, code reason: 7-Patient Refused. 9-Not Applicable-not attempted and the patient did not perform the activity before the current illness, exacerbation or injury. 10-Not Attempted due to Environmental Limitations-(lack of equipment, weather restraints, etc.). 88-Not Attempted due to Medical Conditions or Safety Concerns. Self Care: Independent Functional Cognition: Independent DME/Equipment: Grab Bars, Shower DME/Equipment Comments no shower seats, regular toilet. no ambulatory devices Drive Self: Yes OT Current Status Subjective Agreeable to OT Mental Status/Objective Patient Orientation: Person, Place, Time, Situation Attachments: Telemetry Current Glasses/Contacts: Yes Hearing Aids: No Dentures/Partials: No Hand Dominance: Right Upper Extremity ROM BUE ROM WNLs Upper Extremity Coordination FMC LUE fair, RUE FMC Fair + Upper Extremity Strength 4/5 Grossly BUEs ADL-Treatment Eating (QC): 88 Oral Hygiene (QC): 88 Shower/Bathe Self (QC): 88 Upper Body Dressing (QC): 88 Lower Body Dressing (QC): 88 On/Off Footwear (QC): 88 Toileting Hygiene (QC): 88 Consulting w/ DR, QC to be obtained at next available opportunity.Patient reports missing her blue comb. Education OT Patient Education: Correct positioning, Home exercise program, Modified ADL techniques, Progress toward Goal/Update tx plan, Purpose of tx/functional activities, Reviewed precautions, Rehab process, Safety issues, Transfer techniques, Use of adapted equipment Teaching Recipient: Patient Teaching Methods: Demonstration, Discussion Response to Teaching: Verbalize Understanding, Reinforcement Needed BIMS CAM BIMS Expression of Ideas and Wants: Without Difficulty Understanding Verbal Content: Understands Brief Interview/Mental Status: Yes IRF [place] BIMS: IRF [place] BIMS Response (Comments) Value Repitition of Three Words Three 3 Recalls Socks Yes, No Cue Required 2 Recalls Blue Yes, No Cue Required 2 Recalls Bed Yes, No Cue Required 2 Year Correct 3 Month Accurate Within 5 Days 2 Day Correct 1 Total 15 Patient Normally Able to Recal: Staff Names and faces, That he/she in a hsp Should Staff Asses. 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 2=Patient will verbalize/demonstrate understanding of assistive devices/modifications for ADL. 3=Patient will improve strength/tolerance for activity to enable patient to perform ADL's. OT Education/Plan Problem List/Assessment Assessment: Decreased Activ Tolerance, Decreased UE Strength, Impaired Coordination (FMC), Impaired Self-Care Skills Discharge Recommendations Plan/Recommendations: Continue POC Treatment Plan/Plan of Care Treatment,Training & Education: Yes Patient would benefit from OT for education, treatment and training to promote independence in ADL's, mobility, safety and/or upper extremity function for ADL's. Plan of Care: ADL Retraining, Concurrent Therapy, Functional Mobility, Group Exercise/Act as Ind, UE Funct Exercise/Act, UE Neuromus Re-Ed/Coord Treatment Duration: Jan 31, 2023 Frequency: At least 5 of 7 days/Wk (IRF) Estimated Hrs Per Day: 1.5 hours per day Rehab Potential: Good Time Start Time: 08:30 Stop Time: 08:50 DATE: Jan 24, 2023 Total Time Billed (hr/min): 20 Billed Treatment Time EVM 20 min EBONY OCAMPO OT Jan 24, 2023 08:39
[2023-01-24 09:00] VITALS: BP 134/69
[2023-01-24] MEDS: PANTOPRAZOLE 40 MG (PROTONIX) TAB PO SCH (09:27)
[2023-01-24] MEDS: ASPIRIN enteric coated 81MG TABLET PO SCH (09:27)
[2023-01-24] MEDS: MULTIVIT W/MINERALS TAB (THERAGRAN M) PO SCH (09:27)
[2023-01-24] MEDS: cloNIDine 0.1 MG TABLET PO SCH ×3 (09:28→20:59)
[2023-01-24] MEDS: CLOPIDOGREL 75 MG TABLET PO SCH (09:28)
[2023-01-24] MEDS: LEVOTHYROXINE 50 MCG (LEVOTHROID) TAB PO SCH (09:28)
[2023-01-24] MEDS: LORATADINE (CLARITIN) 10 MG TAB PO SCH (09:28)
[2023-01-24] MEDS: FAMOTIDINE 20 MG TABLET PO SCH (09:28)
[2023-01-24] MEDS: OXYBUTYNIN (DITROPAN) 5 MG TAB PO SCH (09:29)
[2023-01-24] MEDS: amLODIPine 5 MG TABLET PO SCH (09:30)
[2023-01-24] MEDS: meTOproloL SUCCINATE 50 MG (TOPROL XL) TAB PO SCH ×2 (09:30→20:55)
[2023-01-24] MEDS: LOSARTAN 50 MG (COZAAR) TAB PO SCH (09:30)
[2023-01-24] MEDS: KCL 10 MEQ TAB (MICRO K) PO SCH (09:30)
[2023-01-24] MEDS: DOCUSATE SODIUM 100 MG CAPSULE PO SCH ×2 (09:31→20:53)
[2023-01-24] MEDS: polyethylene glycoL POWDER 17 GM (MIRALAX) PACK PO SCH ×2 (09:31→20:54)
[2023-01-24] MEDS: SENNA W/DOCUSATE (SENOKOT S) TABLET PO SCH ×2 (09:31→20:54)
--- NOTE | 2023-01-24 10:28 | Occupational Ther Daily Note ---
OT Current Status-Daily Note Subjective Pt alert, sitting in recliner. Took over care from OTR/L, 0850. [place] with PT [id number], skills of 2 clinicians required to work on higher level balance skills for independence with daily functional tasks. PT focusing on transfers, ambulation and balance while OT focusing on ADLs, cognition and balance for daily functional tasks. Mental Status/Objective Patient Orientation: Person, Place, Time, Situation Attachments: IV, Telemetry ADL-Treatment Pt retrieved items for dressing and shower with SBA, no AD. Pt completed shower standing 90% of the time using shower bench, grabbars and hand held shower with set up for covering IV and telemetry. Pt able to complete dressing by self though requires SBA when retrieving items. Pt complete oral care standing at sink with SBA for safety. After therapy, pt left in care of PT. All needs met. Therapy Code Descriptions/Definitions Functional [place] Measure: 0=Not Assessed/NA 4=Minimal Assistance 1=Total Assistance 5=Supervision or Setup 2=Maximal Assistance 6=Modified [place] 3=Moderate Assistance 7=Complete IndependenceSCALE: Activities may be completed with or without assistive devices. 2-Tntmpzyajt-jgxqacd completes the activity by him/herself with no assistance from a helper. 5-Set-up or Clean-up Assistance-helper sets up or cleans up; patient completes activity. [place] assists only prior to or following the activity. 4-Supervision or Touching Assistance-helper provides verbal cues and/or touching/steadying and/or contact guard assistance as patient completes activity. Assistance may be provided throughout the activity or intermittently. 3-Partial/Moderate Assistance-helper does LESS THAN HALF the effort. [place] lifts, holds or supports trunk or limbs, but provides less than half the effort. 2-Substantial/Maximal Assistance-helper does MORE THAN HALF the effort. [place] lifts or holds trunk or limbs and provides more than half the effort. 4-Kxivsrmqa-qmkbbq does ALL the effort. Patient does none of the effort to complete the activity. Or, the assistance of 2 or more helpers is required for the patient to complete the activity. If activity was not attempted, code reason: 7-Patient Refused. 9-Not Applicable-not attempted and the patient did not perform the activity before the current illness, exacerbation or injury. 10-Not Attempted due to Environmental Limitations-(lack of equipment, weather restraints, etc.). 88-Not Attempted due to Medical Conditions or Safety Concerns. Oral Hygiene (QC): 4 Shower/Bathe Self (QC): 5 Upper Body Dressing (QC): 4 Lower Body Dressing (QC): 4 On/Off Footwear: 4 Toileting Hygiene (QC): 6 Toilet Transfer (QC): 6 Pt does lean toward R side slightly requiring pt to reach to wall or stable item with ambulation. Pt requires 1 verbal cue to problem solve new routine when using different equipment to take shower. Education OT Patient Education: Energy conservation, Safety issues Teaching Recipient: Patient Teaching Methods: Demonstration, Discussion Response to Teaching: Verbalize Understanding, Return Demonstration OT Short Term Goals Short Term Goals Time Frame: Jan 28, 2023 Eatin Oral hygiene: 6 (standing) OT Latex Foam Worker Goals Latex Foam Worker Goals Time Frame: Jan 31, 2023 Acute change in mental status: 0 Inattention: 0 Disorganized thinkin Altered level of consciousness: 0 Toileting Hygiene (QC): 6 Shower/Bathe Self (QC): 6 Upper Body Dressing (QC): 6 Lower Body Dressing (QC): 6 On/Off Footwear (QC): 6 1=Demonstrate adherence to instructed precautions during ADL tasks. 2=Patient will verbalize/demonstrate understanding of assistive devices/modifications for ADL. 3=Patient will improve strength/tolerance for activity to enable patient to perform ADL's. OT Education/Plan Problem List/Assessment Assessment: Decreased Activ Tolerance, Decreased UE Strength, Impaired Cognition, Impaired Funct Balance, Impaired Self-Care Skills Discharge Recommendations Plan/Recommendations: Continue POC Treatment Plan/Plan of Care Patient would benefit from OT for education, treatment and training to promote independence in ADL's, mobility, safety and/or upper extremity function for ADL's. Plan of Care: ADL Retraining, Concurrent Therapy, Functional Mobility, Group Exercise/Act as Ind, UE Funct Exercise/Act, UE Neuromus Re-Ed/Coord Treatment Duration: Jan 31, 2023 Frequency: At least 5 of 7 days/Wk (IRF) Estimated Hrs Per Day: 1.5 hours per day Rehab Potential: Good Time Start Time: 08:50 Stop Time: 09:30 DATE: Jan 24, 2023 Total Time Billed (hr/min): 40 Billed Treatment Time 1 visit-ADL 3 (40 min) co-treat with PT 30 min, individual 10 min HOMER LOCO Jan 24, 2023 10:28
[2023-01-24] MEDS: VENlafaxine XR 75 MG (EFFEXOR XR) CAP PO SCH (10:40)
--- NOTE | 2023-01-24 11:31 | ST Cognitive Linguistic Eval ---
Speech Evaluation-General Medical Diagnosis CVA Onset Date: Jan 21, 2023 Therapy Diagnosis Therapy Diagnosis: WNL Cognition Precautions Precautions/Isolations: Fall Prevention, Standard Precautions Referral Referring Physician: Dr. Velez Reason for Referral: Evaluation/Treatment Medical History Pertinent Medical History: HTN, Hypothroidism Pulmonary Fibrosis, Anxiety, Depression, High Cholesterol, Hypertension, Neuropathy, Renal failure, GERD Current History CVA on 01/22/23; Admitted to ARU on 01/23/23 Reviewed History: Yes Social History Home: Apartment Current Living Status: Alone Speech PLF-Current Status Prior Level of Function Pt reports she lives alone in a disabled accessible apartment. She manages her own medications by reading the directions on each bottle and taking them at the time they say. Pt also manages her own finances by calling and paying with credit card over the phone. 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 Subjective Pt laying back in bed when REFRACTORY FURNACE DESIGNER arrives. Pt just finished with physical therapy and stated she is tired. Pt is pleasant and cooperative throughout the evaluation. Pt denies any changes to cognition, language, or swallowing. Pain Location: No Pain Reported Language Eval: Auditory Comprehends Simple Yes/No Ques: Functional Follows 1-Step Commands: Functional Follows General Conversations: Functional Language Eval: Verbal Language Completes Spontaneous Greeting: Functional Imitates Simple Words/Phrases: Functional Word Finding: Functional Requests Basic Needs: Functional Expresses Complex Ideas: Functional Objective Cognitive Domain Attention: WNL Memory: WNL Problem Solving: Functional Executive Functions: WNL Visuospatial Skills: WNL Composite Severity Rating: WNL Clock Drawing Severity Rating: WNL Score: 28 Objective Formal/Standardized Tests SLUMS Results Impression Pt's cognition appears to be WNL at this time. Pt does well with orientation, she is able to recall 4/5 words immediately and following a short delay. She completes basic problem solving. She generatively names 13 animals in 1 minutes. Pt is able to complete mental manipulation of 2, 3, 4 digit sequences in reverse order. She is able to following directions and complete the clock drawing with no difficulty. Pt is able to answer 4/4 questions following a short story. Pt is able to state how she manages her medications and finances at home and her system. She explains what her job requirements are at [employer] and she hopes to return to her position. Pt is able to tell REFRACTORY FURNACE DESIGNER about her daughter and her career. Pt recalls details from Tuesday when she had her stroke and the symptoms she noticed. Speech therapy services not recommended at this time. Speech-Plan Patient/Family Goals Patient/Family Goals: Pt's goal is to return home at [facility]. Pt also hopes to return to her position at [employer]. Treatment Plan Speech Therapy Treatment Plan: Discontinue ST, Goals Met Frequency: 1 time per week Estimated Hrs Per Day: .5 hour per day Rehab Potential: Good Pt/Family Agrees to Plan: Yes Safety Risks/Education Teaching Recipient: Patient Teaching Methods: Discussion Response to Teaching: Verbalize Understanding Education Topics Provided: Pt educated on the role of the REFRACTORY FURNACE DESIGNER, purpose of the evalution, results, and recommendations. Pt receptive and verbalized understanding. Time Speech Therapy Time In: 10:05 Speech Therapy Time Out: 10:35 DATE: Jan 24, 2023 Total Billed Time: 30 Billed Treatment Time S/L Nicole Mahoney Speech Therapy Jan 24, 2023 11:31
[2023-01-24 13:24] VITALS: BP 157/69
--- NOTE | 2023-01-24 13:29 | Physical Therapy Daily Note ---
PT Daily Note-Current Subjective Pt is agreeable to PT. Denies pain Co-Tx with OT from [id number], skills of 2 clinicians required to work on higher level balance skills for Ind with daily functional tasks. PT focusing on transfers, ambulation and balance, while OT focusing on ADLs, cognition and balance for daily functional tasks. Pain Numeric Pain Scale: 0-No Pain Location: No Pain Reported Section J - Health Conditions 1. Rarely or not at all 2. Occasionally 3. Frequently 4. Almost constantly 8. Unable to answer Pain Effect on Sleep: 1 Pain Interference with Therapy: 1 Pain Interference w/Day-to-Day: 1 Transfers SCALE: Activities may be completed with or without assistive devices. 4-Fmljybadud-oecztas completes the activity by him/herself with no assistance from a helper. 5-Set-up or Clean-up Assistance-helper sets up or cleans up; patient completes activity. [place] assists only prior to or following the activity. 4-Supervision or Touching Assistance-helper provides verbal cues and/or touching/steadying and/or contact guard assistance as patient completes activity. Assistance may be provided throughout the activity or intermittently. 3-Partial/Moderate Assistance-helper does LESS THAN HALF the effort. [place] lifts, holds or supports trunk or limbs, but provides less than half the effort. 2-Substantial/Maximal Assistance-helper does MORE THAN HALF the effort. [place] lifts or holds trunk or limbs and provides more than half the effort. 3-Oguacdhwc-tjwtkh does ALL the effort. Patient does none of the effort to complete the activity. Or, the assistance of 2 or more helpers is required for the patient to complete the activity. If activity was not attempted, code reason: 7-Patient Refused. 9-Not Applicable-not attempted and the patient did not perform the activity before the current illness, exacerbation or injury. 10-Not Attempted due to Environmental Limitations-(lack of equipment, weather restraints, etc.). 88-Not Attempted due to Medical Conditions or Safety Concerns. Sit to Lying (QC): 4 Lying to Sitting/Side of Bed(Q: 4 Sit to Stand (QC): 4 Chair/Yba-vi-Nnxgx Xfer(QC): 4 Toilet Transfer (QC): 4 Weight Bearing Right Lower Extremity: Right Full Weight Bearing Left Lower Extremity: Left Full Weight Bearing Gait Training Does the Patient Walk?: Yes Walk 10 feet (QC): 4 Walk 50 ft with 2 Turns(QC): 4 Walk 150 ft (QC): 4 Gait Persons Needed: 1 Gait Assistive Device: None Wheelchair Training Does the Pt Use a Wheelchair?: No Wheel 50 ft with 2 turns (QC): 9 Wheel 150 ft (QC): 9 Type of Wheelchair: N/A Treatments Co-Tx with OT from [id number], skills of 2 clinicians required to work on higher level balance skills for Ind with daily functional tasks. PT focusing on transfers, ambulation and balance, while OT focusing on ADLs, cognition and balance for daily functional tasks. Pt retrieved items for dressing and shower with SBA, no AD. Pt completed shower standing 90% of the time using shower bench, GBs and hand held shower with set up for covering IV and telemetry. Pt able to complete dressing by self though requires SBA when retrieving items. Pt complete oral care standing at sink with SBA for safety. Pt completed bed mobility and functional transfers with SBA. Pt ambulated 200ft and 100ft with no AD and CGA. Pt completed seated B LE Ther Ex x 15 reps each with the red Tband. Pt completed 10 min on the nu-step on level 1. Pt lying in bed upon completion of PT, with call light in reach and all needs met. Assessment Current Status: Good Progress Pt tolerated PT well, with good effort PT Correction Goals Hull And Deck Remover Goals PT Hull And Deck Remover Goals Time Frame: Jan 31, 2023 Roll Left & Right (QC): 6 (Pt will be Mod I with all aspects of functional mobility with no AD, in order to be at PLOF and safely d/c home. ) Sit to Lying (QC): 6 (Pt will be Mod I with all aspects of functional mobility with no AD, in order to be at PLOF and safely d/c home. ) Lying-Sitting on Side/Bed(QC): 6 (Pt will be Mod I with all aspects of functional mobility with no AD, in order to be at PLOF and safely d/c home. ) Sit to Stand (QC): 6 (Pt will be Mod I with all aspects of functional mobility with no AD, in order to be at PLOF and safely d/c home. ) Chair/Wwj-pk-Gjmuu Xfer(QC): 6 (Pt will be Mod I with all aspects of functional mobility with no AD, in order to be at PLOF and safely d/c home. ) Toilet Transfer (QC): 6 (Pt will be Mod I with all aspects of functional mobility with no AD, in order to be at PLOF and safely d/c home. ) Car Transfer (QC): 6 (Pt will be Mod I with all aspects of functional mobility with no AD, in order to be at PLOF and safely d/c home. ) Does the Patient Walk: Yes Walk 10 feet (QC): 6 (Pt will be Mod I with all aspects of functional mobility with no AD, in order to be at PLOF and safely d/c home. ) Walk 50ft with 2 Turns (QC): 6 (Pt will be Mod I with all aspects of functional mobility with no AD, in order to be at PLOF and safely d/c home. ) Walk 150 ft (QC): 6 (Pt will be Mod I with all aspects of functional mobility with no AD, in order to be at PLOF and safely d/c home. ) Walking 10ft on Uneven Surface: 6 (Pt will be Mod I with all aspects of functional mobility with no AD, in order to be at PLOF and safely d/c home. ) 1 Step (curb) (QC): 6 (Pt will be Mod I with all aspects of functional mobility with no AD, in order to be at PLOF and safely d/c home. ) 4 Steps (QC): 6 (Pt will be Mod I with all aspects of functional mobility with no AD, in order to be at PLOF and safely d/c home. ) 12 Steps (QC): 6 (Pt will be Mod I with all aspects of functional mobility with no AD, in order to be at PLOF and safely d/c home. ) Picking up an Object (QC): 6 (Pt will be Mod I with all aspects of functional mobility with no AD, in order to be at PLOF and safely d/c home. ) Does the Pt use WC or Scooter?: No Wheel 50 feet with 2 turns (QC: 9 Type: N/A Wheel 150 feet: 9 Type: N/A PT Plan Problem List Problem List: Activity Tolerance, Functional Strength, Safety, Balance, Gait, Transfer, Bed Mobility Treatment/Plan Treatment Plan: Continue Plan of Care Treatment Plan: Bed Mobility, Concurrent Therapy, Education, Functional Activity Ghanshyam, Functional Strength, Group Therapy, Gait, Safety, Therapeutic Exercise, Transfers Treatment Duration: Jan 31, 2023 Frequency: At least 5 of 7 days/Wk (IRF) Estimated Hrs Per Day: 1.5 hours per day Patient and/or Family Agrees t: Yes Safety Risks/Education Patient Education: Gait Training, Transfer Techniques, Safety Issues Teaching Recipient: Patient Teaching Methods: Demonstration, Discussion Response to Teaching: Verbalize Understanding, Return Demonstration, Reinforcement Needed Discharge Recommendations Therapy Discharge Recommendati: Home & Family Equpiment Recommendations-D/C: None Discharge Status/Home Program Cont per POC Barriers to Progress balance Target Placement Home Time Time In: 900 Time Out: 1000 DATE: Jan 24, 2023 Total Billed Treatment Time: 60 Total Billed Treatment 60 min total from [id number]; co-tx for 30 min from [id number] 1 visit FA x 2 GT x 1 EX x 1 ROLY SWENSON PT Jan 24, 2023 13:28
[2023-01-24 15:52] VITALS: BP 140/68
[2023-01-24 19:55] VITALS: BP 149/74
[2023-01-24] MEDS: GABAPENTIN 300 MG CAPSULE PO SCH (20:59)
--- NOTE | 2023-01-24 21:43 | Individualized Plan of Care ---
Individualized Plan of Care Rehab Nursing IPOC Order Admission Date Jan 23, 2023 at 12:55 Current Orders Orders Admission Order(Inpt,Obs,Sdc) (01/23/23 12:05) Vital Signs: Per Unit Policy ( 08,16,00 (01/23/23 12:05) Robby Randhawa 09,21 (01/23/23 12:05) Sequential Compression Device [id number] (01/23/23 12:05) Linotype Mechanic-Inpt Rehab Con (01/23/23 12:05) Rehab Nursing Orders-Ipoc (01/23/23 12:05) Physical Therapy Rehab Orders (01/23/23 12:05) Occupational Therapy Rehab Ord (01/23/23 12:05) Speech Therapy Rehab Orders (01/23/23 12:05) Cbc With Automated Diff (01/24/23 06:00) Comprehensive Metabolic Panel (01/24/23 06:00) Precautions (Aru) (01/23/23 12:05) Weekly Weight WEEK (01/23/23 12:05) Rehab-Intensity Of Therapy (01/23/23 12:05) Initiate Admission Nursing Pro .admission (01/23/23 12:05) Alprazolam Tablet (Alprazolam Tablet) (01/23/23 12:15) Calcium Carbonate Chew Tablet (Calcium C (01/23/23 12:15) Diphenhydramine Tablet (Benadryl Tablet) (01/23/23 12:15) Docusate Sodium Capsule (Colace Capsule) (01/23/23 21:00) Docusate Sodium Capsule (Colace Capsule) (01/23/23 12:15) Bisacodyl Suppository (Bisacodyl Supposi (01/23/23 12:15) Lactulose Oral Solution (Enulose Oral So (01/23/23 12:15) Na Phos/Na Biphos Enema (Fleet Enema Chace (01/23/23 12:15) Guaifenesin/Codeine Syrup (Robitussin Ac (01/23/23 12:15) Loperamide Tablet (Imodium Tablet) (01/23/23 12:15) Melatonin Tablet (Melatonin Tablet) (01/23/23 12:15) Polyethylene Glycol Powder Pkt (Miralax (01/23/23 21:00) Ondansetron Oral Dissolve Tab (Zofran (01/23/23 12:15) Senna S Tablet (Senokot S Tablet) (01/23/23 21:00) Acetaminophen Tablet (Acetaminophen Ta (01/23/23 12:15) Initiate Admission Nursing Pro .admission (01/23/23 12:05) Admission Arrival Bed Request (01/23/23 12:55) Transfer - Bed/Room/Location (01/23/23 12:58) Code/Resuscitation (01/23/23 13:15) Incentive Spirometry (Nursing) Q2H (01/23/23 13:15) General/Regular (01/23/23 Lunch) Albuterol Pre-Mix Nebs (Rt) (Albuterol (01/23/23 13:30) Aspirin Enteric Coated Tablet (Ecotrin T (01/24/23 09:00) Atorvastatin Tablet (Atorvastatin Tablet (01/24/23 09:00) Diphenhydramine Injection (Benadryl Inje (01/23/23 13:30) Diphenhydramine Tablet (Benadryl Tablet) (01/23/23 13:30) Docusate Sodium Capsule (Colace Capsule) (01/23/23 21:00) Bisacodyl Suppository (Bisacodyl Supposi (01/23/23 13:30) Lactulose Oral Solution (Enulose Oral So (01/23/23 13:30) Famotidine Tablet (Pepcid Tablet) (01/24/23 09:00) Gabapentin Capsule/Tablet (Neurontin Cap (01/23/23 21:00) Hydromorphone Injection (Dilaudid Inject (01/23/23 13:30) Levothyroxine Tablet (Synthroid Tablet) (01/24/23 09:00) Loratadine Tablet (Claritin Tablet) (01/24/23 09:00) Losartan Tablet (Cozaar Tablet) (01/24/23 09:00) Melatonin Tablet (Melatonin Tablet) (01/23/23 13:30) Magnesium Hydroxide Oral Susp (Mom Oral (01/23/23 13:30) Polyethylene Glycol Powder Pkt (Miralax (01/23/23 13:30) Antacid Suspension (Mylanta Suspension (01/23/23 13:30) Ondansetron Oral Dissolve Tab (Zofran (01/23/23 13:30) Oxybutynin Tablet (Ditropan Tablet) (01/24/23 09:00) Pantoprazole Tablet (Protonix Tablet) (01/24/23 09:00) Clopidogrel Tablet (Plavix Tablet) (01/24/23 09:00) Potassium Chloride (Tablet) (Klor Con Ta (01/24/23 09:00) Sennosides Tablet (Senokot Tablet) (01/23/23 21:00) Therapeutic Multivitamin Tab (Vitamins, (01/24/23 09:00) Calcium Carbonate Chew Tablet (Calcium C (01/23/23 13:30) Acetaminophen Tablet (Acetaminophen Ta (01/23/23 13:30) Venlafaxine Xr Capsule (Effexor Xr Capsu (01/24/23 09:00) Ondansetron Injection (Zofran Injectio (01/23/23 13:30) Amlodipine Tablet (Amlodipine Tablet) (01/24/23 09:00) Clonidine Tablet (Clonidine Tablet) (01/23/23 13:15) Metoprolol Succinate (Xl) Tab (Toprol Xl (01/23/23 21:00) Oxycodone Immediate Rel Tablet (Oxyir Ta (01/23/23 13:30) Consult Cardiology (01/23/23 13:15) Incentive Spirometry Initial (01/23/23 13:15) Mat Initiate Protocol (01/23/23 13:15) Svn Small Volume Nebulizer (01/23/23 13:15) Telemetry (01/23/23 13:15) Telemetry Nursing Assessment ( (01/23/23 13:15) Clonidine Tablet (Clonidine Tablet) (01/23/23 13:15) Hydralazine Injection (Apresoline Inject (01/23/23 13:15) Nursing Communication (Order) (01/23/23 13:28) Lipid Panel (01/23/23 19:24) Patient Visit (01/24/23 ) Pt Eval Low Complexity (01/24/23 ) Patient Visit (01/24/23 ) Speech Sound Lang Comp (01/24/23 ) Patient Visit (01/24/23 ) Functional Activities, Ea 15 (01/24/23 ) Exercise Therap, Ea 15 Min (01/24/23 ) Gait Training, Ea 15 Min (01/24/23 ) Enoxaparin Injection (Lovenox Injection) (01/25/23 09:00) Patient Visit (01/25/23 ) Gait Training, Ea 15 Min (01/25/23 ) Exercise Therap, Ea 15 Min (01/25/23 ) Functional Activities, Ea 15 (01/25/23 ) Rehab Nursing Orders: Ongoing Assess. of Cognitive Status, Ongoing Assess. of Function Status, Bladder Management, Bladder Scan, Bladder Training, Bowel Management, Bowel Training, Disease Management & Educaiton, DVT Prophylaxis, Fall Prevention, Fluid/Electrolyte/Nutrition Mgmt, Infection Prevention, Medication Management & Education, Management of Risks & Complications, Management of Skin Intergrity, Nutrition Management, Pain Management, Patient/Family Support, Safety Management Intensity of Therapy to be met Patient to be seen: Min.3h per day/5 of 7d PT IPOC Problem List: Activity Tolerance, Functional Strength, Safety, Balance, Gait, Transfer, Bed Mobility Treatment Plan: Continue Plan of Care Bed Mobility, Concurrent Therapy, Education, Functional Activity Ghanshyam, Functional Strength, Group Therapy, Gait, Safety, Therapeutic Exercise, Transfers Treatment Duration: Jan 31, 2023 Frequency: At least 5 of 7 days/Wk (IRF) Estimated Hrs Per Day: 1.5 hours per day OT IPOC Problems: Decreased Activ Tolerance, Decreased UE Strength, Impaired Cognition, Impaired Funct Balance, Impaired Self-Care Skills OT Treatment, Training and Edu: Yes Plan of Care: ADL Retraining, Concurrent Therapy, Functional Mobility, Group Exercise/Act as Ind, UE Funct Exercise/Act, UE Neuromus Re-Ed/Coord Treatment Duration: Jan 31, 2023 Frequency: At least 5 of 7 days/Wk (IRF) Estimated Hrs Per Day: 1.[address] IPOC Speech Therapy Treatment Plan: Discontinue ST, Goals Met Treatment Duration: Jan 25, 2023 Frequency: 1 time per week Estimated Hrs Per Day: .5 hour per day Linotype Mechanic/Case Mgmt Linotype Mechanic/Case Managemen: Discharge Planning Dietitian/Head Chef Dietitian/Head Chef to monitor nutritional status and make changes and/or recommendations as needed and work with speech pathology on dietary upgrades as the occur. Physician IPOC Medical Issues being managed closely and that require the 24 hour availability of a physician: Recent stroke with hypertensive urgency with left-sided weakness and fall risk along with polymyositis will place her at risk for additional decompensation so will need physician supervision to monitor Medical Issues: Bowel/Bladder Function, DVT Prophylaxis, Falls Precautions, Fluid/Electrolyte/Nutrition Balance, Infection Protection, Pain Management Brief Synthesis of Preadmission Screen, Post-Admission Evaluation, and Therapy Evaluations: PT and OT will focus on left-sided weakness to evaluate exactly what assistive devices she needs including an AFO if needed for left foot drop and close monitoring in the meantime to build stamina and increase independence in ADLs Medical Prognosis: Good Anticipated Length of Stay: 7 days MARLEY CAMPA DO Jan 24, 2023 21:43
--- NOTE | 2023-01-25 05:44 | PM&R Progress Note ---
Subjective HPI/CC On Admission Date Seen by Provider: Jan 25, 2023 Time Seen by Provider: 09:00 Subjective/Events-last exam 01/25/2023: Patient dramatically improved Left-sided weakness is much improved Maintain on Plavix and aspirin Telemetry remains Metoprolol stopped due to bradycardia 01/24/2023: Much improved overall Walking fairly well Left leg will be assessed for AFO if foot drop is still present Labs reviewed Review of Systems General: Fatigue, Malaise Objective Exam Vital Signs Vital Signs Date Time Temp Pulse Resp B/P (MAP) Pulse Ox O2 Delivery O2 Flow Rate FiO2 01/25/23 19:56 36.3 54 16 170/93 (118) 97 Room Air Capillary Refill : General Appearance: No Apparent Distress, WD/WN, Chronically ill HEENT: PERRL/EOMI, Normal ENT Inspection, Pharynx Normal Neck: Full Range of Motion, Normal Inspection, Non Tender, Supple, Carotid Bruit Respiratory: Chest Non Tender, Lungs Clear, Normal Breath Sounds, No Accessory Muscle Use, No Respiratory Distress Cardiovascular: Regular Rate, Rhythm, No Edema, No Gallop, No JVD, No Murmur, Normal Peripheral Pulses Gastrointestinal: Normal Bowel Sounds, No Organomegaly, No Pulsatile Mass, Non Tender, Soft Back: Normal Inspection, No CVA Tenderness, No Vertebral Tenderness Extremity: Normal Capillary Refill, Normal Inspection, Normal Range of Motion (Except left leg 3/5 strength with left foot drop), Non Tender, No Calf Tenderness, No Pedal Edema Neurologic/Psychiatric: Alert, Oriented x3, No Motor/Sensory Deficits, Normal Mood/Affect, Abnormal Gait, Motor Weakness, Other (Dysarthria) Skin: Normal Color, Warm/Dry Lymphatic: No Adenopathy Results/Procedures Lab Patient resulted labs reviewed. FIM Transfers Therapy Code Descriptions/Definitions Functional [place] Measure: 0=Not Assessed/NA 4=Minimal Assistance 1=Total Assistance 5=Supervision or Setup 2=Maximal Assistance 6=Modified [place] 3=Moderate Assistance 7=Complete IndependenceSCALE: Activities may be completed with or without assistive devices. 8-Umfjlsfwzx-uwjsmje completes the activity by him/herself with no assistance from a helper. 5-Set-up or Clean-up Assistance-helper sets up or cleans up; patient completes activity. [place] assists only prior to or following the activity. 4-Supervision or Touching Assistance-helper provides verbal cues and/or touching/steadying and/or contact guard assistance as patient completes activity. Assistance may be provided throughout the activity or intermittently. 3-Partial/Moderate Assistance-helper does LESS THAN HALF the effort. [place] lifts, holds or supports trunk or limbs, but provides less than half the effort. 2-Substantial/Maximal Assistance-helper does MORE THAN HALF the effort. [place] lifts or holds trunk or limbs and provides more than half the effort. 5-[place]-ow[place]ert does ALL the effort. Patient does none of the effort to complete the activity. Or, the assistance of 2 or more helpers is required for the patient to complete the activity. If activity was not attempted, code reason: 7-Patient Refused. 9-Not Applicable-not attempted and the patient did not perform the activity before the current illness, exacerbation or injury. 10-Not Attempted due to Environmental Limitations-(lack of equipment, weather restraints, etc.). 88-Not Attempted due to Medical Conditions or Safety Concerns. Roll Left to Right (QC): 4 (SBA ) Sit to Lying (QC): 4 Sit to Stand (QC): 4 Chair/Dil-dy-Wgjuv Xfer(QC): 4 Car Transfer (QC): 4 (CGA) Gait Training Does the Patient Walk?: Yes Walk 10 feet (QC): 4 Walk 50 ft with 2 Turns(QC): 4 Walk 150 ft (QC): 4 Walking 10ft/uneven surface-QC: 4 (CGA) Gait Persons Needed: 1 Gait Assistive Device: None Wheelchair Training Does the Pt Use a Wheelchair?: No Wheel 50 ft with 2 turns (QC): 9 Wheel 150 ft (QC): 9 Type of Wheelchair: N/A Stair Training #of Steps: 12 1 Step (curb) (QC): 4 (CGA) 4 Steps (QC): 4 (CGA) 12 Steps (QC): 4 (CGA) Balance Picking up an Object (QC): 4 ADL-Treatment Eating (QC): 88 Oral Hygiene (QC): 4 Shower/Bathe Self (QC): 5 Upper Body Dressing (QC): 4 Lower Body Dressing (QC): 4 On/Off Footwear (QC): 4 Toileting Hygiene (QC): 6 Toilet Transfer (QC): 6 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 with left foot drop needs AFO Recent hospital stay at for TIA 09/2022 with hypertensive urgency Confusion and non-purposeful noncompliance with blood pressure medication currently and reported on records 09/2022 Polymyositis Chronic kidney disease stage IV Pulmonary fibrosis Immunocompromised with Rituxan GERD Hypothyroidism Plan: Aspirin Plavix and statin Echo and carotid ultrasound reviewed Cardiology evaluation appreciated Telemetry May need loop recorder Home meds Monitor blood pressure PT and OT 01/24/2023: Monitor closely Aggressive rehab Monitor BP 01/25/2023: Supportive care Stop metoprolol (1) CVA (cerebral vascular accident) (2) Chronic renal disease, stage IV (3) Interstitial lung disease Status: Acute (4) Polymyositis MARLEY CAMPA DO Jan 25, 2023 05:44
--- NOTE | 2023-01-25 07:10 | Occupational Ther Daily Note ---
OT Current Status-Daily Note Subjective Pt resting in bed, easily woke. Pt agrees to therapy. No c/o pain. Nrsg in room for vital signs. Mental Status/Objective Patient Orientation: Person, Place, Time, Situation Attachments: Telemetry ADL-Treatment Pt independent with bed mobility. Pt independent with eating. Therapy Code Descriptions/Definitions Functional [place] Measure: 0=Not Assessed/NA 4=Minimal Assistance 1=Total Assistance 5=Supervision or Setup 2=Maximal Assistance 6=Modified [place] 3=Moderate Assistance 7=Complete IndependenceSCALE: Activities may be completed with or without assistive devices. 1-Sryxrzhtdk-brspnzo completes the activity by him/herself with no assistance from a helper. 5-Set-up or Clean-up Assistance-helper sets up or cleans up; patient completes activity. [place] assists only prior to or following the activity. 4-Supervision or Touching Assistance-helper provides verbal cues and/or touching/steadying and/or contact guard assistance as patient completes activity. Assistance may be provided throughout the activity or intermittently. 3-Partial/Moderate Assistance-helper does LESS THAN HALF the effort. [place] lifts, holds or supports trunk or limbs, but provides less than half the effort. 2-Substantial/Maximal Assistance-helper does MORE THAN HALF the effort. [place] lifts or holds trunk or limbs and provides more than half the effort. 7-Ezewhgqha-rgndgb does ALL the effort. Patient does none of the effort to complete the activity. Or, the assistance of 2 or more helpers is required for the patient to complete the activity. If activity was not attempted, code reason: 7-Patient Refused. 9-Not Applicable-not attempted and the patient did not perform the activity before the current illness, exacerbation or injury. 10-Not Attempted due to Environmental Limitations-(lack of equipment, weather restraints, etc.). 88-Not Attempted due to Medical Conditions or Safety Concerns. Eating (QC): 6 Other Treatment Pt given HEP for theraputty and theraband to increase strength, coordination and dexterity in B UE for daily functional tasks. Skilled instructions given for correct technique and modifications when needed. Instructions given and will continue with 2nd treatment for proficiency in exercises. After session, pt si tting on EOB with call light/phone in reach. All needs met in room. Education OT Patient Education: Exercise program Teaching Recipient: Patient Teaching Methods: Demonstration, Handout, Discussion Response to Teaching: Verbalize Understanding, Return Demonstration, Reinforcement Needed OT Short Term Goals Short Term Goals Time Frame: Jan 28, 2023 Eatin Oral hygiene: 6 (standing) OT Reference Investigator Goals Reference Investigator Goals Time Frame: Jan 31, 2023 Acute change in mental status: 0 Inattention: 0 Disorganized thinkin Altered level of consciousness: 0 Toileting Hygiene (QC): 6 Shower/Bathe Self (QC): 6 Upper Body Dressing (QC): 6 Lower Body Dressing (QC): 6 On/Off Footwear (QC): 6 1=Demonstrate adherence to instructed precautions during ADL tasks. 2=Patient will verbalize/demonstrate understanding of assistive devices/modifications for ADL. 3=Patient will improve strength/tolerance for activity to enable patient to perform ADL's. OT Education/Plan Problem List/Assessment Assessment: Decreased Activ Tolerance, Decreased UE Strength, Impaired Coor dination, Impaired Self-Care Skills Discharge Recommendations Plan/Recommendations: Continue POC Treatment Plan/Plan of Care Patient would benefit from OT for education, treatment and training to promote independence in ADL's, mobility, safety and/or upper extremity function for ADL's. Plan of Care: ADL Retraining, Concurrent Therapy, Functional Mobility, Group Exercise/Act as Ind, UE Funct Exercise/Act, UE Neuromus Re-Ed/Coord Treatment Duration: Jan 31, 2023 Frequency: At least 5 of 7 days/Wk (IRF) Estimated Hrs Per Day: 1.5 hours per day Rehab Potential: Good Time Start Time: 07:00 Stop Time: 07:30 DATE: Jan 25, 2023 Total Time Billed (hr/min): 30 Billed Treatment Time 1 visit-ADL 1 (15 min) EX 1 (15 min) [facility] Jan 25, 2023 07:09
[2023-01-25 07:20] VITALS: BP 165/73
[2023-01-25] MEDS: ASPIRIN enteric coated 81MG TABLET PO SCH (08:10)
[2023-01-25] MEDS: OXYBUTYNIN (DITROPAN) 5 MG TAB PO SCH (08:10)
[2023-01-25] MEDS: MULTIVIT W/MINERALS TAB (THERAGRAN M) PO SCH (08:10)
[2023-01-25] MEDS: KCL 10 MEQ TAB (MICRO K) PO SCH (08:12)
[2023-01-25] MEDS: FAMOTIDINE 20 MG TABLET PO SCH (08:13)
[2023-01-25] MEDS: VENlafaxine XR 75 MG (EFFEXOR XR) CAP PO SCH (08:13)
[2023-01-25] MEDS: CLOPIDOGREL 75 MG TABLET PO SCH (08:13)
[2023-01-25] MEDS: LEVOTHYROXINE 50 MCG (LEVOTHROID) TAB PO SCH (08:13)
[2023-01-25] MEDS: PANTOPRAZOLE 40 MG (PROTONIX) TAB PO SCH (08:13)
[2023-01-25] MEDS: LORATADINE (CLARITIN) 10 MG TAB PO SCH (08:13)
[2023-01-25] MEDS: amLODIPine 5 MG TABLET PO SCH (08:13)
[2023-01-25] MEDS: polyethylene glycoL POWDER 17 GM (MIRALAX) PACK PO SCH ×2 (08:16→20:45)
[2023-01-25] MEDS: DOCUSATE SODIUM 100 MG CAPSULE PO SCH ×2 (08:16→20:45)
[2023-01-25] MEDS: SENNA W/DOCUSATE (SENOKOT S) TABLET PO SCH ×2 (08:16→20:45)
[2023-01-25] MEDS: LOSARTAN 50 MG (COZAAR) TAB PO SCH (08:19)
[2023-01-25] MEDS: cloNIDine 0.1 MG TABLET PO SCH ×3 (08:37→20:48)
--- NOTE | 2023-01-25 08:40 | Cardiology Progress Note ---
Subjective Date Seen by Provider: Jan 25, 2023 Time Seen by Provider: 08:10 Subjective/Events-last exam Patient in bed, complaining of fatigue. Denies any chest pain or dizziness. Noted to be bradycardic Objective-Cardiology Exam Last Set of Vital Signs Vital Signs 01/25/23 07:20 Temp 36.1 Pulse 50 Resp 14 B/P (MAP) 165/73 (103) Pulse Ox 94 O2 Delivery Room Air I&O Intake and Output 01/25/23 00:00 Intake Total 940 ml Balance 940 ml Intake Oral 940 ml # Voids 5 # Bowel Movements 2 General: Alert, Oriented X3 HEENT: Atraumatic, PERRLA Neck: +2 Carotid Pulse No Bruit Lungs: Clear to Auscultation Heart: Regular Rate, Normal S1, Normal S2 Abdomen: Soft, No Tenderness Extremities: No Edema Skin: No Rashes, No Significant Lesion Psych/Mental Status: Mental Status NL, Mood NL A/P-Cardiology Admission Diagnosis CVA HTN HLP CKD Assessment/Plan Acute CVA with left-sided weakness Acute lacunar infarct in the thalamus on MRI. Started on aspirin and Plavix and statin Continue on telemetry Bradycardia, I will d/c Toprol XL, continue to monitor 2D echo was done on December 23, 2022 with normal LV size, EF 60 to 65%, mild mitral regurgitation, PA pressure 25 to 30 mmHg Hypertension, on multiple blood pressure medications. Toprol XL being discontinued d/t bradycardia, I will continue to monitor blood pressure. Hyperlipidemia, LDL 146 Started on Lipitor 80 mg daily Monitor lipids Confusion, better at this time. History of polymyositis. Following with [facility], maintained on Rituxan. Chronic kidney disease stage IV. Continue to monitor renal function History of pulmonary fibrosis, clinically stable. Gastroesophageal reflux disease Hypothyroidism. Followed and managed by primary care physician Supervisory-Addendum Brief Supervisory Addendum Participated in pt care: history, MDM, physical Personally performed: exam, history, MDM Care discussed with: ANASTASIA Results interpretation: Verified all documentation Notes: Patient was seen and evaluated with Yanira, examination performed, management plan was discussed, agree with the current scribed note, I made few changes to the note using Italic font Patient was seen at bedside, laying down comfortably, complaining of feeling sleepy Noted to be bradycardic Was on Toprol-XL 50 mg twice daily which will be stopped today Continue on clonidine and hydralazine Monitor blood pressure and heart rate YANIRA GOOD Jan 25, 2023 08:40 SHRUTHI RODRIGEZ MD Jan 25, 2023 08:51
--- NOTE | 2023-01-25 11:35 | Physical Therapy Daily Note ---
PT Daily Note-Current Subjective Pt reports she is doing well today, just a little tired. Pt is agreeable to PT. Pt denies pain. Pain Numeric Pain Scale: 0-No Pain Location: No Pain Reported Section J - Health Conditions 1. Rarely or not at all 2. Occasionally 3. Frequently 4. Almost constantly 8. Unable to answer Pain Effect on Sleep: 1 Pain Interference with Therapy: 1 Pain Interference w/Day-to-Day: 1 Transfers SCALE: Activities may be completed with or without assistive devices. 8-Auaognefee-xkiktvg completes the activity by him/herself with no assistance from a helper. 5-Set-up or Clean-up Assistance-helper sets up or cleans up; patient completes activity. [place] assists only prior to or following the activity. 4-Supervision or Touching Assistance-helper provides verbal cues and/or touching/steadying and/or contact guard assistance as patient completes activity. Assistance may be provided throughout the activity or intermittently. 3-Partial/Moderate Assistance-helper does LESS THAN HALF the effort. [place] lifts, holds or supports trunk or limbs, but provides less than half the effort. 2-Substantial/Maximal Assistance-helper does MORE THAN HALF the effort. [place] lifts or holds trunk or limbs and provides more than half the effort. 8-[place]-rwgvst does ALL the effort. Patient does none of the effort to complete the activity. Or, the assistance of 2 or more helpers is required for the patient to complete the activity. If activity was not attempted, code reason: 7-Patient Refused. 9-Not Applicable-not attempted and the patient did not perform the activity before the current illness, exacerbation or injury. 10-Not Attempted due to Environmental Limitations-(lack of equipment, weather restraints, etc.). 88-Not Attempted due to Medical Conditions or Safety Concerns. Lying to Sitting/Side of Bed(Q: 4 Sit to Stand (QC): 4 Chair/Fqw-yc-Gfswy Xfer(QC): 4 Toilet Transfer (QC): 4 Weight Bearing Right Lower Extremity: Right Full Weight Bearing Left Lower Extremity: Left Full Weight Bearing Gait Training Does the Patient Walk?: Yes Distance: 400ft x 2 Walk 10 feet (QC): 4 Walk 50 ft with 2 Turns(QC): 4 Walk 150 ft (QC): 4 Gait Persons Needed: 1 Gait Assistive Device: None Wheelchair Training Does the Pt Use a Wheelchair?: No Wheel 50 ft with 2 turns (QC): 9 Wheel 150 ft (QC): 9 Type of Wheelchair: N/A Treatments Pt completed supine > sit with SBA/Mod I. Pt completed functional transfers with SBA. Pt ambulated 400ft x 2 with no AD and CGA. Pt completed seated B LE Ther Ex x 15 reps each with the red Tband. Pt completed standing B LE Ther Ex x 10 reps each with B UE support and SBA. Pt required 1 seated RB during standing Ther Ex. Pt completed sit to stand x 10 reps with SBA. Pt completed 20 min on the nu-step on level 2. Pt completed a toilet transfer with SBA. Pt sitting in the recliner upon completion of PT with call light in hand and all needs met. Assessment Current Status: Good Progress Pt tolerated PT well with good effort PT Drapery Hand Goals Drapery Hand Goals PT Detention Goals Time Frame: Jan 31, 2023 Roll Left & Right (QC): 6 (Pt will be Mod I with all aspects of functional mobility with no AD, in order to be at PLOF and safely d/c home. ) Sit to Lying (QC): 6 (Pt will be Mod I with all aspects of functional mobility with no AD, in order to be at PLOF and safely d/c home. ) Lying-Sitting on Side/Bed(QC): 6 (Pt will be Mod I with all aspects of functional mobility with no AD, in order to be at PLOF and safely d/c home. ) Sit to Stand (QC): 6 (Pt will be Mod I with all aspects of functional mobility with no AD, in order to be at PLOF and safely d/c home. ) Chair/Ltc-rh-Pjrxk Xfer(QC): 6 (Pt will be Mod I with all aspects of functional mobility with no AD, in order to be at PLOF and safely d/c home. ) Toilet Transfer (QC): 6 (Pt will be Mod I with all aspects of functional mobility with no AD, in order to be at PLOF and safely d/c home. ) Car Transfer (QC): 6 (Pt will be Mod I with all aspects of functional mobility with no AD, in order to be at PLOF and safely d/c home. ) Does the Patient Walk: Yes Walk 10 feet (QC): 6 (Pt will be Mod I with all aspects of functional mobility with no AD, in order to be at PLOF and safely d/c home. ) Walk 50ft with 2 Turns (QC): 6 (Pt will be Mod I with all aspects of functional mobility with no AD, in order to be at PLOF and safely d/c home. ) Walk 150 ft (QC): 6 (Pt will be Mod I with all aspects of functional mobility with no AD, in order to be at PLOF and safely d/c home. ) Walking 10ft on Uneven Surface: 6 (Pt will be Mod I with all aspects of functional mobility with no AD, in order to be at PLOF and safely d/c home. ) 1 Step (curb) (QC): 6 (Pt will be Mod I with all aspects of functional mobility with no AD, in order to be at PLOF and safely d/c home. ) 4 Steps (QC): 6 (Pt will be Mod I with all aspects of functional mobility with no AD, in order to be at PLOF and safely d/c home. ) 12 Steps (QC): 6 (Pt will be Mod I with all aspects of functional mobility with no AD, in order to be at PLOF and safely d/c home. ) Picking up an Object (QC): 6 (Pt will be Mod I with all aspects of functional mobility with no AD, in order to be at PLOF and safely d/c home. ) Does the Pt use WC or Scooter?: No Wheel 50 feet with 2 turns (QC: 9 Type: N/A Wheel 150 feet: 9 Type: N/A PT Plan Problem List Problem List: Activity Tolerance, Functional Strength, Safety, Balance, Gait, Transfer, Bed Mobility Treatment/Plan Treatment Plan: Continue Plan of Care Treatment Plan: Bed Mobility, Concurrent Therapy, Education, Functional Activity Ghanshyam, Functional Strength, Group Therapy, Gait, Safety, Therapeutic Exercise, Transfers Treatment Duration: Jan 31, 2023 Frequency: At least 5 of 7 days/Wk (IRF) Estimated Hrs Per Day: 1.5 hours per day Patient and/or Family Agrees t: Yes Safety Risks/Education Patient Education: Gait Training, Transfer Techniques, Safety Issues Teaching Recipient: Patient Teaching Methods: Demonstration, Discussion Response to Teaching: Verbalize Understanding, Return Demonstration, Reinforcement Needed Discharge Recommendations Therapy Discharge Recommendati: Home & Family Equpiment Recommendations-D/C: None Discharge Status/Home Program Cont per POC Barriers to Progress Balance Target Placement Home Time Time In: 930 Time Out: 1100 DATE: Jan 25, 2023 Total Billed Treatment Time: 90 Total Billed Treatment 90 min 1 visit GT x 2 EX x 2 FA x 2 ROLY SWENSON PT Jan 25, 2023 11:35
[2023-01-25] MEDS: ENOXAPARIN 40 MG/0.4 ML SYRINGE SC SCH (12:04)
[2023-01-25 13:00] VITALS: BP 139/70
[2023-01-25 19:56] VITALS: BP 170/93
[2023-01-25] MEDS: GABAPENTIN 300 MG CAPSULE PO SCH (20:48)
--- NOTE | 2023-01-26 05:56 | PM&R Progress Note ---
Subjective HPI/CC On Admission Date Seen by Provider: Jan 26, 2023 Time Seen by Provider: 09:00 Subjective/Events-last exam 01/26/2023: Doing well No pain reported Team meeting discussion ensued DC Tuesday01/25/2023: Patient dramatically improved Left-sided weakness is much improved Maintain on Plavix and aspirin Telemetry remains Metoprolol stopped due to bradycardia 01/24/2023: Much improved overall Walking fairly well Left leg will be assessed for AFO if foot drop is still present Labs reviewed Review of Systems General: Fatigue, Malaise Objective Exam Vital Signs Vital Signs Date Time Temp Pulse Resp B/P (MAP) Pulse Ox O2 Delivery O2 Flow Rate FiO2 01/26/23 19:15 37.0 59 20 148/87 (107) 96 Room Air Capillary Refill : General Appearance: No Apparent Distress, WD/WN, Chronically ill HEENT: PERRL/EOMI, Normal ENT Inspection, Pharynx Normal Neck: Full Range of Motion, Normal Inspection, Non Tender, Supple, Carotid Bruit Respiratory: Chest Non Tender, Lungs Clear, Normal Breath Sounds, No Accessory Muscle Use, No Respiratory Distress Cardiovascular: Regular Rate, Rhythm, No Edema, No Gallop, No JVD, No Murmur, Normal Peripheral Pulses Gastrointestinal: Normal Bowel Sounds, No Organomegaly, No Pulsatile Mass, Non Tender, Soft Back: Normal Inspection, No CVA Tenderness, No Vertebral Tenderness Extremity: Normal Capillary Refill, Normal Inspection, Normal Range of Motion (Except left leg 3/5 strength with left foot drop), Non Tender, No Calf Tenderness, No Pedal Edema Neurologic/Psychiatric: Alert, Oriented x3, No Motor/Sensory Deficits, Normal Mood/Affect, Abnormal Gait, Motor Weakness, Other (Dysarthria) Skin: Normal Color, Warm/Dry Lymphatic: No Adenopathy Results/Procedures Lab Patient resulted labs reviewed. FIM Transfers Therapy Code Descriptions/Definitions Functional [place] Measure: 0=Not Assessed/NA 4=Minimal Assistance 1=Total Assistance 5=Supervision or Setup 2=Maximal Assistance 6=Modified [place] 3=Moderate Assistance 7=Complete IndependenceSCALE: Activities may be completed with or without assistive devices. 1-Sobfwvwvce-gkljdau completes the activity by him/herself with no assistance from a helper. 5-Set-up or Clean-up Assistance-helper sets up or cleans up; patient completes activity. [place] assists only prior to or following the activity. 4-Supervision or Touching Assistance-helper provides verbal cues and/or touching/steadying and/or contact guard assistance as patient completes activity. Assistance may be provided throughout the activity or intermittently. 3-Partial/Moderate Assistance-helper does LESS THAN HALF the effort. [place] lifts, holds or supports trunk or limbs, but provides less than half the effort. 2-Substantial/Maximal Assistance-helper does MORE THAN HALF the effort. [place] lifts or holds trunk or limbs and provides more than half the effort. 3-Wydoksbqb-updsfs does ALL the effort. Patient does none of the effort to complete the activity. Or, the assistance of 2 or more helpers is required for the patient to complete the activity. If activity was not attempted, code reason: 7-Patient Refused. 9-Not Applicable-not attempted and the patient did not perform the activity before the current illness, exacerbation or injury. 10-Not Attempted due to Environmental Limitations-(lack of equipment, weather restraints, etc.). 88-Not Attempted due to Medical Conditions or Safety Concerns. Roll Left to Right (QC): 4 (SBA ) Sit to Lying (QC): 4 Sit to Stand (QC): 4 Chair/Wff-oy-[place]rb[place] Xfer(QC): 4 Car Transfer (QC): 4 (CGA) Gait Training Does the Patient Walk?: Yes Distance: 400ft x 2 Walk 10 feet (QC): 4 Walk 50 ft with 2 Turns(QC): 4 Walk 150 ft (QC): 4 Walking 10ft/uneven surface-QC: 4 (CGA) Gait Persons Needed: 1 Gait Assistive Device: None Wheelchair Training Does the Pt Use a Wheelchair?: No Wheel 50 ft with 2 turns (QC): 9 Wheel 150 ft (QC): 9 Type of Wheelchair: N/A Stair Training #of Steps: 12 1 Step (curb) (QC): 4 (CGA) 4 Steps (QC): 4 (CGA) 12 Steps (QC): 4 (CGA) Balance Picking up an Object (QC): 4 ADL-Treatment Eating (QC): 6 Oral Hygiene (QC): 4 Shower/Bathe Self (QC): 5 Upper Body Dressing (QC): 4 Lower Body Dressing (QC): 4 On/Off Footwear (QC): 4 Toileting Hygiene (QC): 6 Toilet Transfer (QC): 6 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 with left foot drop needs AFO Recent hospital stay at for TIA 09/2022 with hypertensive urgency Confusion and non-purposeful noncompliance with blood pressure medication currently and reported on records 09/2022 Polymyositis Chronic kidney disease stage IV Pulmonary fibrosis Immunocompromised with Rituxan GERD Hypothyroidism Plan: Aspirin Plavix and statin Echo and carotid ultrasound reviewed Cardiology evaluation appreciated Telemetry May need loop recorder Home meds Monitor blood pressure PT and OT 01/24/2023: Monitor closely Aggressive rehab Monitor BP 01/25/2023: Supportive care Stop metoprolol 01/26/2023: DC Tuesday (1) CVA (cerebral vascular accident) (2) Chronic renal disease, stage IV (3) Interstitial lung disease Status: Acute (4) Polymyositis MARLEY CAMPA DO Jan 26, 2023 05:56
[2023-01-26 07:43] VITALS: BP 170/81
--- NOTE | 2023-01-26 08:05 | Physical Therapy Daily Note ---
PT Daily Note-Current Subjective Pt reports she is doing well today and is agreeable to PT. Pt reports she slept better and isn't as tired today. Pt denies pain. Pain Numeric Pain Scale: 0-No Pain Location: No Pain Reported Section J - Health Conditions 1. Rarely or not at all 2. Occasionally 3. Frequently 4. Almost constantly 8. Unable to answer Pain Effect on Sleep: 1 Pain Interference with Therapy: 1 Pain Interference w/Day-to-Day: 1 Transfers SCALE: Activities may be completed with or without assistive devices. 1-Aiaoxupzpy-tvlrygn completes the activity by him/herself with no assistance from a helper. 5-Set-up or Clean-up Assistance-helper sets up or cleans up; patient completes activity. [place] assists only prior to or following the activity. 4-Supervision or Touching Assistance-helper provides verbal cues and/or touching/steadying and/or contact guard assistance as patient completes activity. Assistance may be provided throughout the activity or intermittently. 3-Partial/Moderate Assistance-helper does LESS THAN HALF the effort. [place] li fts, holds or supports trunk or limbs, but provides less than half the effort. 2-Substantial/Maximal Assistance-helper does MORE THAN HALF the effort. [place] lifts or holds trunk or limbs and provides more than half the effort. 5-Kkeylimjn-ufjkay does ALL the effort. Patient does none of the effort to complete the activity. Or, the assistance of 2 or more helpers is required for the patient to complete the activity. If activity was not attempted, code reason: 7-Patient Refused. 9-Not Applicable-not attempted and the patient did not perform the activity before the current illness, exacerbation or injury. 10-Not Attempted due to Environmental Limitations-(lack of equipment, weather restraints, etc.). 88-Not Attempted due to Medical Conditions or Safety Concerns. Sit to Stand (QC): 6 Chair/Ypd-ip-Acqzy Xfer(QC): 6 Weight Bearing Right Lower Extremity: Right Full Weight Bearing Left Lower Extremity: Left Full Weight Bearing Gait Training Does the Patient Walk?: Yes Walk 10 feet (QC): 4 Walk 50 ft with 2 Turns(QC): 4 Walk 150 ft (QC): 4 Gait Persons Needed: 1 Gait Assistive Device: None Wheelchair Training Does the Pt Use a Wheelchair?: No Wheel 50 ft with 2 turns (QC): 9 Wheel 150 ft (QC): 9 Type of Wheelchair: N/A Treatments Pt donned B socks and shoes with set-up. Pt completed functional transfers with SBA/Mod I. Pt ambulated 400ft with no AD and CGA/SBA. Pt completed seated B LE Ther Ex x 15 reps each with the red Tband. Pt completed sit to stand x 10 reps with SBA/Mod I. Pt completed dynamic standing balance activities x 120ft each with CGA: forward/backward walking, B side stepping, forward walking with head turns, and forward walking with cervical flex/ext. Pt completed 20 min on the nu-step on level 2. Pt sitting up in the recliner with call light in reach and all needs met after treatment session. Assessment Current Status: Good Progress Pt tolerated PT well with good effort PT Primary Operator Goals Primary Operator Goals PT Custodial Goals Time Frame: Jan 31, 2023 Roll Left & Right (QC): 6 (Pt will be Mod I with all aspects of functional mobility with no AD, in order to be at PLOF and safely d/c home. ) Sit to Lying (QC): 6 (Pt will be Mod I with all aspects of functional mobility with no AD, in order to be at PLOF and safely d/c home. ) Lying-Sitting on Side/Bed(QC): 6 (Pt will be Mod I with all aspects of functional mobility with no AD, in order to be at PLOF and safely d/c home. ) Sit to Stand (QC): 6 (Pt will be Mod I with all aspects of functional mobility with no AD, in order to be at PLOF and safely d/c home. ) Chair/Ccv-bi-Ddkfd Xfer(QC): 6 (Pt will be Mod I with all aspects of functional mobility with no AD, in order to be at PLOF and safely d/c home. ) Toilet Transfer (QC): 6 (Pt will be Mod I with all aspects of functional mobility with no AD, in order to be at PLOF and safely d/c home. ) Car Transfer (QC): 6 (Pt will be Mod I with all aspects of functional mobility with no AD, in order to be at PLOF and safely d/c home. ) Does the Patient Walk: Yes Walk 10 feet (QC): 6 (Pt will be Mod I with all aspects of functional mobility with no AD, in order to be at PLOF and safely d/c home. ) Walk 50ft with 2 Turns (QC): 6 (Pt will be Mod I with all aspects of functional mobility with no AD, in order to be at PLOF and safely d/c home. ) Walk 150 ft (QC): 6 (Pt will be Mod I with all aspects of functional mobility with no AD, in order to be at PLOF and safely d/c home. ) Walking 10ft on Uneven Surface: 6 (Pt will be Mod I with all aspects of functional mobility with no AD, in order to be at PLOF and safely d/c home. ) 1 Step (curb) (QC): 6 (Pt will be Mod I with all aspects of functional mobility with no AD, in order to be at PLOF and safely d/c home. ) 4 Steps (QC): 6 (Pt will be Mod I with all aspects of functional mobility with no AD, in order to be at PLOF and safely d/c home. ) 12 Steps (QC): 6 (Pt will be Mod I with all aspects of functional mobility with no AD, in order to be at PLOF and safely d/c home. ) Picking up an Object (QC): 6 (Pt will be Mod I with all aspects of functional mobility with no AD, in order to be at PLOF and safely d/c home. ) Does the Pt use WC or Scooter?: No Wheel 50 feet with 2 turns (QC: 9 Type: N/A Wheel 150 feet: 9 Type: N/A PT Plan Problem List Problem List: Activity Tolerance, Functional Strength, Safety, Balance, Gait, Transfer, Bed Mobility Treatment/Plan Treatment Plan: Continue Plan of Care Treatment Plan: Bed Mobility, Concurrent Therapy, Education, Functional Activity Ghanshyam, Functional Strength, Group Therapy, Gait, Safety, Therapeutic Exercise, Transfers Treatment Duration: Jan 31, 2023 Frequency: At least 5 of 7 days/Wk (IRF) Estimated Hrs Per Day: 1.5 hours per day Patient and/or Family Agrees t: Yes Safety Risks/Education Patient Education: Gait Training, Transfer Techniques, Safety Issues Teaching Recipient: Patient Teaching Methods: Demonstration, Discussion Response to Teaching: Verbalize Understanding, Return Demonstration, Reinforcement Needed Discharge Recommendations Therapy Discharge Recommendati: Home & Family Equpiment Recommendations-D/C: None Discharge Status/Home Program Cont per POC Barriers to Progress Balance Target Placement Home Time Time In: 800 Time Out: 930 DATE: Jan 26, 2023 Total Billed Treatment Time: 90 Total Billed Treatment 90 min 1 visit GT x 2 FA x 2 EX x 1 NM x 1 ROLY SWENSON PT Jan 26, 2023 08:05
--- NOTE | 2023-01-26 09:29 | Cardiology Progress Note ---
Subjective Date Seen by Provider: Jan 26, 2023 Time Seen by Provider: 08:40 Subjective/Events-last exam Patient is up with PT, denies any dizziness or lightheadedness. Objective-Cardiology Exam Last Set of Vital Signs Vital Signs 01/27/23 07:38 Temp 36.1 Pulse 54 Resp 14 B/P (MAP) 184/79 (114) Pulse Ox 93 O2 Delivery Room Air I&O Intake and Output 01/27/23 00:00 Intake Total 1316 ml Balance 1316 ml Intake Oral 1316 ml # Voids 5 General: Alert, Oriented X3 HEENT: Atraumatic, PERRLA Neck: +2 Carotid Pulse No Bruit Lungs: Clear to Auscultation Heart: Regular Rate, Normal S1, Normal S2 Abdomen: Soft, No Tenderness Extremities: No Edema Skin: No Rashes, No Significant Lesion Psych/Mental Status: Mental Status NL, Mood NL A/P-Cardiology Admission Diagnosis CVA HTN HLP CKD Assessment/Plan Acute CVA with left-sided weakness Acute lacunar infarct in the thalamus on MRI. Started on aspirin and Plavix and statin Continue on telemetry Bradycardia, Toprol XL discontinued yesterday. Continue to monitor telemetry 2D echo was done on December 23, 2022 with normal LV size, EF 60 to 65%, mild mitral regurgitation, PA pressure 25 to 30 mmHg Hypertension, on multiple blood pressure medications. Toprol XL being discontinued d/t bradycardia, I will continue to monitor blood pressure. Hyperlipidemia, LDL 146 Started on Lipitor 80 mg daily Monitor lipids Confusion, better at this time. History of polymyositis. Following with [facility], maintained on Rituxan. Chronic kidney disease stage IV. Continue to monitor renal function History of pulmonary fibrosis, clinically stable. Gastroesophageal reflux disease Hypothyroidism. Followed and managed by primary care physician Supervisory-Addendum Brief Supervisory Addendum Participated in pt care: history, MDM, physical Personally performed: exam, history, MDM Care discussed with: ANASTASIA Results interpretation: Verified all documentation Notes: Late entry for January 26, 2023 Patient was seen and evaluated with Yanira, examination performed, management plan was discussed, agree with the current scribed note, I made few changes to the note using Italic font Patient was seen at bedside, sitting comfortably, feeling better No new complaint was reported No dizziness was reported Heart rate improving YANIRA GOOD Jan 26, 2023 09:29 SHRUTHI RODRIGEZ MD Jan 27, 2023 08:19
[2023-01-26] MEDS: cloNIDine 0.1 MG TABLET PO SCH ×3 (09:36→20:56)
[2023-01-26] MEDS: amLODIPine 5 MG TABLET PO SCH (09:36)
[2023-01-26] MEDS: ASPIRIN enteric coated 81MG TABLET PO SCH (09:36)
[2023-01-26] MEDS: LEVOTHYROXINE 50 MCG (LEVOTHROID) TAB PO SCH (09:36)
[2023-01-26] MEDS: MULTIVIT W/MINERALS TAB (THERAGRAN M) PO SCH (09:36)
[2023-01-26] MEDS: VENlafaxine XR 75 MG (EFFEXOR XR) CAP PO SCH (09:36)
[2023-01-26] MEDS: LORATADINE (CLARITIN) 10 MG TAB PO SCH (09:37)
[2023-01-26] MEDS: OXYBUTYNIN (DITROPAN) 5 MG TAB PO SCH (09:37)
[2023-01-26] MEDS: FAMOTIDINE 20 MG TABLET PO SCH (09:37)
[2023-01-26] MEDS: KCL 10 MEQ TAB (MICRO K) PO SCH (09:37)
[2023-01-26] MEDS: LOSARTAN 100 MG (COZAAR) TABLET PO SCH (09:37)
[2023-01-26] MEDS: PANTOPRAZOLE 40 MG (PROTONIX) TAB PO SCH (09:37)
[2023-01-26] MEDS: ENOXAPARIN 40 MG/0.4 ML SYRINGE SC SCH (09:38)
[2023-01-26] MEDS: DOCUSATE SODIUM 100 MG CAPSULE PO SCH ×2 (09:40→21:01)
[2023-01-26] MEDS: CLOPIDOGREL 75 MG TABLET PO SCH (09:40)
[2023-01-26] MEDS: polyethylene glycoL POWDER 17 GM (MIRALAX) PACK PO SCH ×2 (09:40→21:01)
[2023-01-26] MEDS: SENNA W/DOCUSATE (SENOKOT S) TABLET PO SCH ×2 (09:41→21:01)
--- NOTE | 2023-01-26 11:00 | Occupational Ther Daily Note ---
OT Current Status-Daily Note Subjective Pt alert, sitting in recliner. Pt agrees to therapy. No c/o pain. Mental Status/Objective Patient Orientation: Person, Place, Time, Situation Attachments: Telemetry ADL-Treatment Pt agrees to shower. Pt gathered clothing without LOB, no AE, independently. Independent with oral care standing at sink, Independent with eating. Independent with showering using grabbars, hand held shower and shower bench. Independent with all dressing. Independent with toileting. After therapy, pt sitting in recliner with call light/phone in reach. All needs met in room. Therapy Code Descriptions/Definitions Functional [place] Measure: 0=Not Assessed/NA 4=Minimal Assistance 1=Total Assistance 5=Supervision or Setup 2=Maximal Assistance 6=Modified [place] 3=Moderate Assistance 7=Complete IndependenceSCALE: Activities may be completed with or without assistive devices. 5-Zqvbmxqkru-pagpets completes the activity by him/herself with no assistance from a helper. 5-Set-up or Clean-up Assistance-helper sets up or cleans up; patient completes activity. [place] assists only prior to or following the activity. 4-Supervision or Touching Assistance-helper provides verbal cues and/or touching/steadying and/or contact guard assistance as patient completes activity. Assistance may be provided throughout the activity or intermittently. 3-Partial/Moderate Assistance-helper does LESS THAN HALF the effort. [place] lifts, holds or supports trunk or limbs, but provides less than half the effort. 2-Substantial/Maximal Assistance-helper does MORE THAN HALF the effort. [place] lifts or holds trunk or limbs and provides more than half the effort. 5-Rvazznjoe-rbwhvn does ALL the effort. Patient does none of the effort to complete the activity. Or, the assistance of 2 or more helpers is required for the patient to complete the activity. If activity was not attempted, code reason: 7-Patient Refused. 9-Not Applicable-not attempted and the patient did not perform the activity before the current illness, exacerbation or injury. 10-Not Attempted due to Environmental Limitations-(lack of equipment, weather restraints, etc.). 88-Not Attempted due to Medical Conditions or Safety Concerns. Eating (QC): 6 Oral Hygiene (QC): 6 Shower/Bathe Self (QC): 6 Upper Body Dressing (QC): 6 Lower Body Dressing (QC): 6 On/Off Footwear: 6 Toileting Hygiene (QC): 6 Toilet Transfer (QC): 6 OT Short Term Goals Short Term Goals Time Frame: Jan 28, 2023 Eatin Oral hygiene: 6 (standing) OT Watch Engine Operator Goals Senior Living Goals Time Frame: Jan 31, 2023 Acute change in mental status: 0 Inattention: 0 Disorganized thinkin Altered level of consciousness: 0 Toileting Hygiene (QC): 6 Shower/Bathe Self (QC): 6 Upper Body Dressing (QC): 6 Lower Body Dressing (QC): 6 On/Off Footwear (QC): 6 1=Demonstrate adherence to instructed precautions during ADL tasks. 2=Patient will verbalize/demonstrate understanding of assistive devices/modifications for ADL. 3=Patient will improve strength/tolerance for activity to enable patient to perform ADL's. OT Education/Plan Problem List/Assessment Assessment: Decreased Activ Tolerance Discharge Recommendations Plan/Recommendations: Continue POC Treatment Plan/Plan of Care Patient would benefit from OT for education, treatment and training to promote independence in ADL's, mobility, safety and/or upper extremity function for ADL's. Plan of Care: ADL Retraining, Concurrent Therapy, Functional Mobility, Group Exercise/Act as Ind, UE Funct Exercise/Act, UE Neuromus Re-Ed/Coord Treatment Duration: Jan 31, 2023 Frequency: At least 5 of 7 days/Wk (IRF) Estimated Hrs Per Day: 1.5 hours per day Rehab Potential: Good Time Start Time: 10:00 Stop Time: 11:00 DATE: Jan 26, 2023 Total Time Billed (hr/min): 60 Billed Treatment Time 1 visit-ADL 4 (60 min) [facility] LOC[facility] Jan 26, 2023 11:00
--- NOTE | 2023-01-26 14:08 | Occupational Ther Daily Note ---
OT Current Status-Daily Note Subjective Pt alert, sitting in recliner. Pt agrees to therapy. Pt appears fatigued. Mental Status/Objective Patient Orientation: Person, Place, Time, Situation Attachments: Telemetry ADL-Treatment Therapy Code Descriptions/Definitions Functional [place] Measure: 0=Not Assessed/NA 4=Minimal Assistance 1=Total Assistance 5=Supervision or Setup 2=Maximal Assistance 6=Modified [place] 3=Moderate Assistance 7=Complete IndependenceSCALE: Activities may be completed with or without assistive devices. 0-Buvpxvtcaj-oabasxu completes the activity by him/herself with no assistance from a helper. 5-Set-up or Clean-up Assistance-helper sets up or cleans up; patient completes activity. [place] assists only prior to or following the activity. 4-Supervision or Touching Assistance-helper provides verbal cues and/or touching/steadying and/or contact guard assistance as patient completes activity. Assistance may be provided throughout the activity or intermittently. 3-Partial/Moderate Assistance-helper does LESS THAN HALF the effort. [place] lifts, holds or supports trunk or limbs, but provides less than half the effort. 2-Substantial/Maximal Assistance-helper does MORE THAN HALF the effort. [place] lifts or holds trunk or limbs and provides more than half the effort. 5-Zqbnibvvd-hfpqlk does ALL the effort. Patient does none of the effort to complete the activity. Or, the assistance of 2 or more helpers is required for the patient to complete the activity. If activity was not attempted, code reason: 7-Patient Refused. 9-Not Applicable-not attempted and the patient did not perform the activity before the current illness, exacerbation or injury. 10-Not Attempted due to Environmental Limitations-(lack of equipment, weather restraints, etc.). 88-Not Attempted due to Medical Conditions or Safety Concerns. Other Treatment Independent for toileting. Pt ambulated without AD to complete laundry in laundry room. Pt able to reach into washer then place in dryer without LOB and activate. Pt returned to room and complete B UE theraband exercises, 1 set 10 reps 5 exercises. Skilled instruction for correct technique and modifications when needed. After therapy, pt sitting in recliner with call light/phone in reach. All needs met in room. OT Short Term Goals Short Term Goals Time Frame: Jan 28, 2023 Eatin Oral hygiene: 6 (standing) OT Jail Goals [place] Supervisor Goals Time Frame: Jan 31, 2023 Acute change in mental status: 0 Inattention: 0 Disorganized thinkin Altered level of consciousness: 0 Toileting Hygiene (QC): 6 Shower/Bathe Self (QC): 6 Upper Body Dressing (QC): 6 Lower Body Dressing (QC): 6 On/Off Footwear (QC): 6 1=Demonstrate adherence to instructed precautions during ADL tasks. 2=Patient will verbalize/demonstrate understanding of assistive devices/modifications for ADL. 3=Patient will improve strength/tolerance for activity to enable patient to perform ADL's. OT Education/Plan Problem List/Assessment Assessment: Decreased Activ Tolerance Discharge Recommendations Plan/Recommendations: Continue POC Treatment Plan/Plan of Care Patient would benefit from OT for education, treatment and training to promote independence in ADL's, mobility, safety and/or upper extremity function for ADL's. Plan of Care: ADL Retraining, Concurrent Therapy, Functional Mobility, Group Exercise/Act as Ind, UE Funct Exercise/Act, UE Neuromus Re-Ed/Coord Treatment Duration: Jan 31, 2023 Frequency: At least 5 of 7 days/Wk (IRF) Estimated Hrs Per Day: 1.5 hours per day Rehab Potential: Good Time Start Time: 13:00 Stop Time: 13:30 DATE: Jan 26, 2023 Total Time Billed (hr/min): 30 Billed Treatment Time 1 visit-FA 1 (20 min) EX 1 (10 min) [facility] LOC[facility] Jan 26, 2023 14:08
[2023-01-26 19:15] VITALS: BP 148/87
[2023-01-26] MEDS: GABAPENTIN 300 MG CAPSULE PO SCH (20:56)
[2023-01-27 07:38] VITALS: BP 184/79
--- NOTE | 2023-01-27 08:06 | Physical Therapy Daily Note ---
PT Daily Note-Current Subjective Pt reports she is doing well today and is agreeable to PT. Pt denies pain and reports she is less groggy than she has been. Ready to go home tomorrow. Pain Numeric Pain Scale: 0-No Pain Location: No Pain Reported Section J - Health Conditions 1. Rarely or not at all 2. Occasionally 3. Frequently 4. Almost constantly 8. Unable to answer Pain Effect on Sleep: 1 Pain Interference with Therapy: 1 Pain Interference w/Day-to-Day: 1 Transfers SCALE: Activities may be completed with or without assistive devices. 9-Sngnzhblvw-viepfsd completes the activity by him/herself with no assistance from a helper. 5-Set-up or Clean-up Assistance-helper sets up or cleans up; patient completes activity. [place] assists only prior to or following the activity. 4-Supervision or Touching Assistance-helper provides verbal cues and/or touching/steadying and/or contact guard assistance as patient completes activity. Assistance may be provided throughout the activity or intermittently. 3-Partial/Moderate Assistance-helper does LESS THAN HALF the effort. [place] lifts, holds or supports trunk or limbs, but provides less than half the effort. 2-Substantial/Maximal Assistance-helper does MORE THAN HALF the effort. [place] lifts or holds trunk or limbs and provides more than half the effort. 2-Stcbvjwjc-ojnxfs does ALL the effort. Patient does none of the effort to complete the activity. Or, the assistance of 2 or more helpers is required for the patient to complete the activity. If activity was not attempted, code reason: 7-Patient Refused. 9-Not Applicable-not attempted and the patient did not perform the activity before the current illness, exacerbation or injury. 10-Not Attempted due to Environmental Limitations-(lack of equipment, weather restraints, etc.). 88-Not Attempted due to Medical Conditions or Safety Concerns. Roll Left & Right (QC): 6 Sit to Lying (QC): 6 Lying to Sitting/Side of Bed(Q: 6 Sit to Stand (QC): 6 Chair/Dgy-xa-Oyeqa Xfer(QC): 6 Toilet Transfer (QC): 6 Car Transfer (QC): 6 Weight Bearing Right Lower Extremity: Right Full Weight Bearing Left Lower Extremity: Left Full Weight Bearing Gait Training Does the Patient Walk?: Yes Distance: 400ft x 2 Walk 10 feet (QC): 6 Walk 50 ft with 2 Turns(QC): 6 Walk 150 ft (QC): 6 Walking 10ft/uneven surface-QC: 6 Gait Assistive Device: None Wheelchair Training Does the Pt Use a Wheelchair?: No Wheel 50 ft with 2 turns (QC): 9 Wheel 150 ft (QC): 9 Type of Wheelchair: N/A Stair Training Stair Training: Handrails/: 1 handrail #of Steps: 12 1 Step (curb) (QC): 6 4 Steps (QC): 6 12 Steps (QC): 6 Stairs: Pattern: Reciprocal Balance Picking up an Object (QC): 6 Special Test Comments [facility] standing balance score = 5/5 Treatments QCs completed on this date. Pt completed all tasks at a 6/. Pt completed bed mobility and all functional transfers with Mod I. Pt completed dressing and bathroom routine with Mod I. Pt ambulated 400ft x 2 with no AD and Mod I. Pt completed car transfer and picking up an object with Mod I. Pt also ambulated over uneven surfaces with Mod I. 12 steps with 1 HR and Mod I, with reciprocal gait pattern. Pt completed seated B LE Ther Ex x 15 reps each with red Tband. Pt edu on HEP, with handouts provided. Pt completed 15 min on the nu-step on level 2. Pt sitting in the recliner after treatment with call light in reach, and all needs met. No questions or concerns about going home tomorrow. Assessment Current Status: Good Progress Pt tolerated PT well with good effort. Pt has progressed well with PT and has met all set goals. Plan to d/c home tomorrow (01/28/23) PT Nursing Home Goals [place] Entertainer Goals PT Nursing Home Goals Time Frame: Jan 31, 2023 Roll Left & Right (QC): 6 (Pt will be Mod I with all aspects of functional mobility with no AD, in order to be at PLOF and safely d/c home. ) Sit to Lying (QC): 6 (Pt will be Mod I with all aspects of functional mobility with no AD, in order to be at PLOF and safely d/c home. ) Lying-Sitting on Side/Bed(QC): 6 (Pt will be Mod I with all aspects of functional mobility with no AD, in order to be at PLOF and safely d/c home. ) Sit to Stand (QC): 6 (Pt will be Mod I with all aspects of functional mobility with no AD, in order to be at PLOF and safely d/c home. ) Chair/Qoh-ty-Buxka Xfer(QC): 6 (Pt will be Mod I with all aspects of functional mobility with no AD, in order to be at PLOF and safely d/c home. ) Toilet Transfer (QC): 6 (Pt will be Mod I with all aspects of functional mobility with no AD, in order to be at PLOF and safely d/c home. ) Car Transfer (QC): 6 (Pt will be Mod I with all aspects of functional mobility with no AD, in order to be at PLOF and safely d/c home. ) Does the Patient Walk: Yes Walk 10 feet (QC): 6 (Pt will be Mod I with all aspects of functional mobility with no AD, in order to be at PLOF and safely d/c home. ) Walk 50ft with 2 Turns (QC): 6 (Pt will be Mod I with all aspects of functional mobility with no AD, in order to be at PLOF and safely d/c home. ) Walk 150 ft (QC): 6 (Pt will be Mod I with all aspects of functional mobility with no AD, in order to be at PLOF and safely d/c home. ) Walking 10ft on Uneven Surface: 6 (Pt will be Mod I with all aspects of functional mobility with no AD, in order to be at PLOF and safely d/c home. ) 1 Step (curb) (QC): 6 (Pt will be Mod I with all aspects of functional mobility with no AD, in order to be at PLOF and safely d/c home. ) 4 Steps (QC): 6 (Pt will be Mod I with all aspects of functional mobility with no AD, in order to be at PLOF and safely d/c home. ) 12 Steps (QC): 6 (Pt will be Mod I with all aspects of functional mobility with no AD, in order to be at PLOF and safely d/c home. ) Picking up an Object (QC): 6 (Pt will be Mod I with all aspects of functional mobility with no AD, in order to be at PLOF and safely d/c home. ) Does the Pt use WC or Scooter?: No Wheel 50 feet with 2 turns (QC: 9 Type: N/A Wheel 150 feet: 9 Type: N/A PT Plan Problem List Problem List: Activity Tolerance, Functional Strength, Balance Treatment/Plan Treatment Plan: Continue Plan of Care (D/C home tomorrow ) Treatment Plan: Bed Mobility, Concurrent Therapy, Education, Functional Activity Ghanshyam, Functional Strength, Group Therapy, Gait, Safety, Therapeutic Exercise, Transfers Treatment Duration: Jan 31, 2023 Frequency: At least 5 of 7 days/Wk (IRF) Estimated Hrs Per Day: 1.5 hours per day Patient and/or Family Agrees t: Yes Safety Risks/Education Patient Education: Gait Training, Transfer Techniques, Steps, Issued Written HEP, Safety Issues Teaching Recipient: Patient Teaching Methods: Demonstration, Discussion Response to Teaching: Verbalize Understanding, Return Demonstration Discharge Recommendations Therapy Discharge Recommendati: Home & Family Equpiment Recommendations-D/C: None Discharge Status/Home Program Cont per POC; D/C home tomorrow 01/28/23 Barriers to Progress Balance Target Placement Home Time Time In: 800 Time Out: 930 DATE: Jan 27, 2023 Total Billed Treatment Time: 90 Total Billed Treatment 90 min 1 visit GT x 2 EX x 2 FA x 2 ROLY SWENSON PT Jan 27, 2023 08:06
--- NOTE | 2023-01-27 08:11 | Cardiology Progress Note ---
Subjective Date Seen by Provider: Jan 27, 2023 Time Seen by Provider: 08:10 Subjective/Events-last exam Patient sitting up in bed, denies any chest pain. States fatigue has improved since stopping beta anuj Objective-Cardiology Exam Last Set of Vital Signs Vital Signs 01/27/23 07:38 Temp 36.1 Pulse 54 Resp 14 B/P (MAP) 184/79 (114) Pulse Ox 93 O2 Delivery Room Air I&O Intake and Output 01/27/23 00:00 Intake Total 1316 ml Balance 1316 ml Intake Oral 1316 ml # Voids 5 General: Alert, Oriented X3 HEENT: Atraumatic, PERRLA Neck: +2 Carotid Pulse No Bruit Lungs: Clear to Auscultation Heart: Regular Rate, Normal S1, Normal S2 Abdomen: Soft, No Tenderness Extremities: No Edema Skin: No Rashes, No Significant Lesion Psych/Mental Status: Mental Status NL, Mood NL A/P-Cardiology Admission Diagnosis CVA HTN HLP CKD Assessment/Plan Acute CVA with left-sided weakness Acute lacunar infarct in the thalamus on MRI. Started on aspirin and Plavix and statin Continue on telemetry Bradycardia and fatigue, exacerbated by the use of beta blockers. Reporting improvement since stopping Toprol XL 2D echo was done on December 23, 2022 with normal LV size, EF 60 to 65%, mild mitral regurgitation, PA pressure 25 to 30 mmHg Hypertension, on multiple blood pressure medications, I will continue to monitor blood pressure. Hyperlipidemia, LDL 146 Started on Lipitor 80 mg daily Monitor lipids Confusion, better at this time. History of polymyositis. Following with [facility], maintained on Rituxan. Chronic kidney disease stage IV. Continue to monitor renal function History of pulmonary fibrosis, clinically stable. Gastroesophageal reflux disease Hypothyroidism. Followed and managed by primary care physician Supervisory-Addendum Brief Supervisory Addendum Participated in pt care: history, MDM, physical Personally performed: exam, history, MDM Care discussed with: ANASTASIA Results interpretation: Verified all documentation Notes: Patient was seen and evaluated with Jessie, examination performed, management plan was discussed, agree with the current scribed note, I made few changes to the note using Italic font Patient was seen at bedside, laying down comfortably, no new complain Heart rate is better, feeling better Dr. Krishna is covering starting tomorrow Arrange for follow-up as an outpatient JESSIE GOOD Jan 27, 2023 08:11 SHRUTHI RODRIGEZ MD Jan 27, 2023 08:20
[2023-01-27] MEDS: VENlafaxine XR 75 MG (EFFEXOR XR) CAP PO SCH (09:07)
[2023-01-27] MEDS: PANTOPRAZOLE 40 MG (PROTONIX) TAB PO SCH (09:07)
[2023-01-27] MEDS: cloNIDine 0.1 MG TABLET PO SCH ×3 (09:07→20:32)
[2023-01-27] MEDS: ENOXAPARIN 40 MG/0.4 ML SYRINGE SC SCH (09:07)
[2023-01-27] MEDS: amLODIPine 5 MG TABLET PO SCH (09:08)
[2023-01-27] MEDS: CLOPIDOGREL 75 MG TABLET PO SCH (09:08)
[2023-01-27] MEDS: MULTIVIT W/MINERALS TAB (THERAGRAN M) PO SCH (09:08)
[2023-01-27] MEDS: OXYBUTYNIN (DITROPAN) 5 MG TAB PO SCH (09:08)
[2023-01-27] MEDS: KCL 10 MEQ TAB (MICRO K) PO SCH (09:08)
[2023-01-27] MEDS: LEVOTHYROXINE 50 MCG (LEVOTHROID) TAB PO SCH (09:08)
[2023-01-27] MEDS: LOSARTAN 100 MG (COZAAR) TABLET PO SCH (09:08)
[2023-01-27] MEDS: ASPIRIN enteric coated 81MG TABLET PO SCH (09:08)
[2023-01-27] MEDS: FAMOTIDINE 20 MG TABLET PO SCH (09:09)
[2023-01-27] MEDS: LORATADINE (CLARITIN) 10 MG TAB PO SCH (09:09)
[2023-01-27] MEDS: SENNA W/DOCUSATE (SENOKOT S) TABLET PO SCH ×2 (09:19→20:33)
[2023-01-27] MEDS: DOCUSATE SODIUM 100 MG CAPSULE PO SCH ×2 (09:19→20:32)
[2023-01-27] MEDS: polyethylene glycoL POWDER 17 GM (MIRALAX) PACK PO SCH ×2 (09:19→20:33)
--- NOTE | 2023-01-27 10:57 | Occupational Ther Daily Note ---
OT Current Status-Daily Note Subjective Pt sleeping in recliner, woke to name. Pt agrees to therapy. No c/o pain. QC's gathered today. Mental Status/Objective Patient Orientation: Person, Place, Time, Situation Attachments: Telemetry ADL-Treatment Pt independent with all ADLs. Retrieves clothing and supplies without AD independently. Showering, pt stands 90% of the time and sits to cleanse feet using grabbars, hand held shower and shower bench. Therapy Code Descriptions/Definitions Functional [place] Measure: 0=Not Assessed/NA 4=Minimal Assistance 1=Total Assistance 5=Supervision or Setup 2=Maximal Assistance 6=Modified [place] 3=Moderate Assistance 7=Complete IndependenceSCALE: Activities may be completed with or without assistive devices. 5-Qqtyellysh-trjfnnf completes the activity by him/herself with no assistance from a helper. 5-Set-up or Clean-up Assistance-helper sets up or cleans up; patient completes activity. [place] assists only prior to or following the activity. 4-Supervision or Touching Assistance-helper provides verbal cues and/or touching/steadying and/or contact guard assistance as patient completes activity. Assistance may be provided throughout the activity or intermittently. 3-Partial/Moderate Assistance-helper does LESS THAN HALF the effort. [place] lifts, holds or supports trunk or limbs, but provides less than half the effort. 2-Substantial/Maximal Assistance-helper does MORE THAN HALF the effort. [place] lifts or holds trunk or limbs and provides more than half the effort. 2-Pphbnklqe-vyybve does ALL the effort. Patient does none of the effort to complete the activity. Or, the assistance of 2 or more helpers is required for the patient to complete the activity. If activity was not attempted, code reason: 7-Patient Refused. 9-Not Applicable-not attempted and the patient did not perform the activity before the current illness, exacerbation or injury. 10-Not Attempted due to Environmental Limitations-(lack of equipment, weather restraints, etc.). 88-Not Attempted due to Medical Conditions or Safety Concerns. Eating (QC): 6 Oral Hygiene (QC): 6 Shower/Bathe Self (QC): 6 Upper Body Dressing (QC): 6 Lower Body Dressing (QC): 6 On/Off Footwear: 6 Toileting Hygiene (QC): 6 Toilet Transfer (QC): 6 Other Treatment Pt requires skilled instruction for correct technique when completing B UE exercises using medium resistance. Pt completed 5 exercises 1 set 10 reps each. After session, pt sitting in recliner with call light/phone in reach. All need s met in room. BIMS CAM BIMS Expression of Ideas and Wants: Without Difficulty Understanding Verbal Content: Understands Brief Interview/Mental Status: Yes IRF [place] BIMS: IRF [place] BIMS Response (Comments) Value Repitition of Three Words Three 3 Recalls Socks Yes, No Cue Required 2 Recalls Blue Yes, No Cue Required 2 Recalls Bed Yes, No Cue Required 2 Year Correct 3 Month Accurate Within 5 Days 2 Day Correct 1 Total 15 Patient Normally Able to Recal: Current Session, Location of own room, Staff Names and faces, That he/she in a hsp Should Staff Asses. Mental St.: No CAM Mental Status Change/Baseline: 0 Inattention: 0 Disorganized thinkin Altered level of consciousness: 0 OT Short Term Goals Short Term Goals Time Frame: Jan 28, 2023 Eatin Oral hygiene: 6 (standing) OT Mcc Goals Mcc Goals Time Frame: Jan 31, 2023 Acute change in mental status: 0 Inattention: 0 Disorganized thinkin Altered level of consciousness: 0 Toileting Hygiene (QC): 6 (met) Shower/Bathe Self (QC): 6 (met) Upper Body Dressing (QC): 6 (met) Lower Body Dressing (QC): 6 (met) On/Off Footwear (QC): 6 (met) 1=Demonstrate adherence to instructed precautions during ADL tasks. 2=Patient will verbalize/demonstrate understanding of assistive devices/modifications for ADL. 3=Patient will improve strength/tolerance for activity to enable patient to perform ADL's. OT Education/Plan Problem List/Assessment Assessment: Decreased Activ Tolerance, Decreased UE Strength, Impaired Funct Balance Discharge Recommendations Plan/Recommendations: Continue POC Treatment Plan/Plan of Care Patient would benefit from OT for education, treatment and training to promote independence in ADL's, mobility, safety and/or upper extremity function for ADL's. Plan of Care: ADL Retraining, Concurrent Therapy, Functional Mobility, Group Exercise/Act as Ind, UE Funct Exercise/Act, UE Neuromus Re-Ed/Coord Treatment Duration: Jan 31, 2023 Frequency: At least 5 of 7 days/Wk (IRF) Estimated Hrs Per Day: 1.5 hours per day Rehab Potential: Good Time Start Time: 10:00 Stop Time: 11:00 DATE: Jan 27, 2023 Total Time Billed (hr/min): 60 Billed Treatment Time 1 visit-ADL 4 (60 min) HOMER LOCO Jan 27, 2023 10:57
--- NOTE | 2023-01-27 11:19 | PM&R Progress Note ---
Subjective HPI/CC On Admission Date Seen by Provider: Jan 27, 2023 Time Seen by Provider: 11:45 Subjective/Events-last exam 01/27/2023: Patient doing well Ready for discharge tomorrow Left-sided weakness resolved Dysarthria resolved 01/26/2023: Doing well No pain reported Team meeting discussion ensued DC Tuesday01/25/2023: Patient dramatically improved Left-sided weakness is much improved Maintain on Plavix and aspirin Telemetry remains Metoprolol stopped due to bradycardia 01/24/2023: Much improved overall Walking fairly well Left leg will be assessed for AFO if foot drop is still present Labs reviewed Review of Systems General: Fatigue, Malaise Objective Exam Vital Signs Vital Signs Date Time Temp Pulse Resp B/P (MAP) Pulse Ox O2 Delivery O2 Flow Rate FiO2 01/28/23 01:00 60 01/27/23 20:30 96 Room Air 01/27/23 19:36 36.4 16 169/78 (108) Capillary Refill : General Appearance: No Apparent Distress, WD/WN, Chronically ill HEENT: PERRL/EOMI, Normal ENT Inspection, Pharynx Normal Neck: Full Range of Motion, Normal Inspection, Non Tender, Supple, Carotid Bruit Respiratory: Chest Non Tender, Lungs Clear, Normal Breath Sounds, No Accessory Muscle Use, No Respiratory Distress Cardiovascular: Regular Rate, Rhythm, No Edema, No Gallop, No JVD, No Murmur, Normal Peripheral Pulses Gastrointestinal: Normal Bowel Sounds, No Organomegaly, No Pulsatile Mass, Non Tender, Soft Back: Normal Inspection, No CVA Tenderness, No Vertebral Tenderness Extremity: Normal Capillary Refill, Normal Inspection, Normal Range of Motion (Except left leg 3/5 strength with left foot drop), Non Tender, No Calf Tenderness, No Pedal Edema Neurologic/Psychiatric: Alert, Oriented x3, No Motor/Sensory Deficits, Normal Mood/Affect, Abnormal Gait, Motor Weakness, Other (Dysarthria) Skin: Normal Color, Warm/Dry Lymphatic: No Adenopathy Results/Procedures Lab Patient resulted labs reviewed. FIM Transfers Therapy Code Descriptions/Definitions Functional [place] Measure: 0=Not Assessed/NA 4=Minimal Assistance 1=Total Assistance 5=Supervision or Setup 2=Maximal Assistance 6=Modified [place] 3=Moderate Assistance 7=Complete IndependenceSCALE: Activities may be completed with or without assistive devices. 5-Mcdurxrwhv-vldchnx completes the activity by him/herself with no assistance from a helper. 5-Set-up or Clean-up Assistance-helper sets up or cleans up; patient completes activity. [place] assists only prior to or following the activity. 4-Supervision or Touching Assistance-helper provides verbal cues and/or touching/steadying and/or contact guard assistance as patient completes activ ity. Assistance may be provided throughout the activity or intermittently. 3-Partial/Moderate Assistance-helper does LESS THAN HALF the effort. [place] lifts, holds or supports trunk or limbs, but provides less than half the effort. 2-Substantial/Maximal Assistance-helper does MORE THAN HALF the effort. [place] lifts or holds trunk or limbs and provides more than half the effort. 0-Tkjpcpuqx-riteqq does ALL the effort. Patient does none of the effort to complete the activity. Or, the assistance of 2 or more helpers is required for the patient to complete the activity. If activity was not attempted, code reason: 7-Patient Refused. 9-Not Applicable-not attempted and the patient did not perform the activity before the current illness, exacerbation or injury. 10-Not Attempted due to Environmental Limitations-(lack of equipment, weather restraints, etc.). 88-Not Attempted due to Medical Conditions or Safety Concerns. Roll Left to Right (QC): 6 Sit to Lying (QC): 6 Sit to Stand (QC): 6 Chair/Cer-mm-Extht Xfer(QC): 6 Car Transfer (QC): 6 Gait Training Does the Patient Walk?: Yes Distance: 400ft x 2 Walk 10 feet (QC): 6 Walk 50 ft with 2 Turns(QC): 6 Walk 150 ft (QC): 6 Walking 10ft/uneven surface-QC: 6 Gait Persons Needed: 1 Gait Assistive Device: None Wheelchair Training Does the Pt Use a Wheelchair?: No Wheel 50 ft with 2 turns (QC): 9 Wheel 150 ft (QC): 9 Type of Wheelchair: N/A Stair Training Stair Training: Handrails/: 1 handrail #of Steps: 12 1 Step (curb) (QC): 6 4 Steps (QC): 6 12 Steps (QC): 6 Stairs: Pattern: Reciprocal Balance Picking up an Object (QC): 6 ADL-Treatment Eating (QC): 6 Oral Hygiene (QC): 6 Shower/Bathe Self (QC): 6 Upper Body Dressing (QC): 6 Lower Body Dressing (QC): 6 On/Off Footwear (QC): 6 Toileting Hygiene (QC): 6 Toilet Transfer (QC): 6 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 with left foot drop needs AFO Recent hospital stay at for TIA 09/2022 with hypertensive urgency Confusion and non-purposeful noncompliance with blood pressure medication currently and reported on records 09/2022 Polymyositis Chronic kidney disease stage IV Pulmonary fibrosis Immunocompromised with Rituxan GERD Hypothyroidism Plan: Aspirin Plavix and statin Echo and carotid ultrasound reviewed Cardiology evaluation appreciated Telemetry May need loop recorder Home meds Monitor blood pressure PT and OT 01/24/2023: Monitor closely Aggressive rehab Monitor BP 01/25/2023: Supportive care Stop metoprolol 01/26/2023: DC Tuesday01/27/2023: Discharge home tomorrow (1) CVA (cerebral vascular accident) (2) Chronic renal disease, stage IV (3) Interstitial lung disease Status: Acute (4) Polymyositis MARLEY CAMPA DO Jan 27, 2023 11:19
--- NOTE | 2023-01-27 14:15 | Physical Therapy Daily Note ---
PT Daily Note-Current Subjective Pt sitting in recliner upon arrival. Pt agrees to PT. Pain Location: No Pain Reported Section J - Health Conditions 1. Rarely or not at all 2. Occasionally 3. Frequently 4. Almost constantly 8. Unable to answer Pain Effect on Sleep: 1 Pain Interference with Therapy: 1 Pain Interference w/Day-to-Day: 1 Mental Status Patient Orientation: Person, Place, Time, Situation Attachments: Other-See Comments (Telemetry) Transfers SCALE: Activities may be completed with or without assistive devices. 9-Ekigsmecfk-egxlxqk completes the activity by him/herself with no assistance from a helper. 5-Set-up or Clean-up Assistance-helper sets up or cleans up; patient completes activity. [place] assists only prior to or following the activity. 4-Supervision or Touching Assistance-helper provides verbal cues and/or touching/steadying and/or contact guard assistance as patient completes activity. Assistance may be provided throughout the activity or intermittently. 3-Partial/Moderate Assistance-helper does LESS THAN HALF the effort. [place] lifts, holds or supports trunk or limbs, but provides less than half the effort. 2-Substantial/Maximal Assistance-helper does MORE THAN HALF the effort. [place] lifts or holds trunk or limbs and provides more than half the effort. 9-Fpqcginnt-rzxmae does ALL the effort. Patient does none of the effort to complete the activity. Or, the assistance of 2 or more helpers is required for the patient to complete the activity. If activity was not attempted, code reason: 7-Patient Refused. 9-Not Applicable-not attempted and the patient did not perform the activity before the current illness, exacerbation or injury. 10-Not Attempted due to Environmental Limitations-(lack of equipment, weather restraints, etc.). 88-Not Attempted due to Medical Conditions or Safety Concerns. Weight Bearing Right Lower Extremity: Right Full Weight Bearing Left Lower Extremity: Left Full Weight Bearing Exercises Supine Ex: Ankle pumps, Glut sets, Hip abd/add Supine Reps: 15 Seated Therapy Exercises: Ankle pumps, Long arc quads, Hip flexion, Hip abd/add, Glut set Seated Reps: 15 Treatments Since pt is fatigued for PM tx, INSTITUTIONAL ASSET MANAGER reviews written HEP for Seated & Supine Ex. INSTITUTIONAL ASSET MANAGER reviews safety and how to progress EX using Tband after d/c. Pt declines need for BR. Pt resting at end of tx, all needs met, call light in hand. Assessment Current Status: Good Progress Pt has improved TF & mobility while being on ARU unit. PT [facility] Goals Bus Matron Goals PT [facility] Goals Time Frame: Jan 31, 2023 Roll Left & Right (QC): 6 (Pt will be Mod I with all aspects of functional mobility with no AD, in order to be at PLOF and safely d/c home. ) Sit to Lying (QC): 6 (Pt will be Mod I with all aspects of functional mobility with no AD, in order to be at PLOF and safely d/c home. ) Lying-Sitting on Side/Bed(QC): 6 (Pt will be Mod I with all aspects of functional mobility with no AD, in order to be at PLOF and safely d/c home. ) Sit to Stand (QC): 6 (Pt will be Mod I with all aspects of functional mobility with no AD, in order to be at PLOF and safely d/c home. ) Chair/Kte-ej-Qosxz Xfer(QC): 6 (Pt will be Mod I with all aspects of functional mobility with no AD, in order to be at PLOF and safely d/c home. ) Toilet Transfer (QC): 6 (Pt will be Mod I with all aspects of functional mobility with no AD, in order to be at PLOF and safely d/c home. ) Car Transfer (QC): 6 (Pt will be Mod I with all aspects of functional mobility with no AD, in order to be at PLOF and safely d/c home. ) Does the Patient Walk: Yes Walk 10 feet (QC): 6 (Pt will be Mod I with all aspects of functional mobility with no AD, in order to be at PLOF and safely d/c home. ) Walk 50ft with 2 Turns (QC): 6 (Pt will be Mod I with all aspects of functional mobility with no AD, in order to be at PLOF and safely d/c home. ) Walk 150 ft (QC): 6 (Pt will be Mod I with all aspects of functional mobility with no AD, in order to be at PLOF and safely d/c home. ) Walking 10ft on Uneven Surface: 6 (Pt will be Mod I with all aspects of functional mobility with no AD, in order to be at PLOF and safely d/c home. ) 1 Step (curb) (QC): 6 (Pt will be Mod I with all aspects of functional mobility with no AD, in order to be at PLOF and safely d/c home. ) 4 Steps (QC): 6 (Pt will be Mod I with all aspects of functional mobility with no AD, in order to be at PLOF and safely d/c home. ) 12 Steps (QC): 6 (Pt will be Mod I with all aspects of functional mobility with no AD, in order to be at PLOF and safely d/c home. ) Picking up an Object (QC): 6 (Pt will be Mod I with all aspects of functional mobility with no AD, in order to be at PLOF and safely d/c home. ) Does the Pt use WC or Scooter?: No Wheel 50 feet with 2 turns (QC: 9 Type: N/A Wheel 150 feet: 9 Type: N/A PT Plan Treatment/Plan Treatment Plan: Continue Plan of Care Treatment Plan: Bed Mobility, Concurrent Therapy, Education, Functional Activity Ghanshyam, Functional Strength, Group Therapy, Gait, Safety, Therapeutic Exercise, Transfers Treatment Duration: Jan 31, 2023 Frequency: At least 5 of 7 days/Wk (IRF) Estimated Hrs Per Day: 1.5 hours per day Patient and/or Family Agrees t: Yes Time Time In: 1330 Time Out: 1400 DATE: Jan 27, 2023 Total Billed Treatment Time: 30 Total Billed Treatment 1, EX (20m) & FA (10m) GEGE HOPSON INSTITUTIONAL ASSET MANAGER Jan 27, 2023 14:15
[2023-01-27 19:36] VITALS: BP 169/78
[2023-01-27] MEDS: GABAPENTIN 300 MG CAPSULE PO SCH (20:32)
[2023-01-28] MEDS ORDERED: CLOP75TA28 PO (06:33)
[2023-01-28] MEDS ORDERED: CLN.1T PO (06:33)
[2023-01-28] MEDS ORDERED: ASPI-1238 PO (06:33)
[2023-01-28] MEDS ORDERED: AMLO-250 PO (06:33)
[2023-01-28] MEDS ORDERED: LOSA100T58 PO (06:33)
[2023-01-28] MEDS ORDERED: ATOR80TA76 PO (06:33)
--- NOTE | 2023-01-28 06:33 | Discharge Summary ---
Diagnosis/Chief Complaint Date of Admission Jan 23, 2023 at 12:55 Date of Discharge Discharge Date: Jan 28, 2023 Discharge Diagnosis Assessment: 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 with left foot drop needs AFO Recent hospital stay at for TIA 09/2022 with hypertensive urgency Confusion and non-purposeful noncompliance with blood pressure medication currently and reported on records 09/2022 Polymyositis Chronic kidney disease stage IV Pulmonary fibrosis Immunocompromised with Rituxan GERD Hypothyroidism Plan: Aspirin Plavix and statin Echo and carotid ultrasound reviewed Cardiology evaluation appreciated Telemetry May need loop recorder Home meds Monitor blood pressure PT and OT 01/24/2023: Monitor closely Aggressive rehab Monitor BP 01/25/2023: Supportive care Stop metoprolol 01/26/2023: DC Tuesday01/27/2023: Discharge home tomorrow (1) CVA (cerebral vascular accident) (2) Chronic renal disease, stage IV (3) Interstitial lung disease Status: Acute (4) Polymyositis Discharge Summary Discharge Physical Examination Allergies: Coded Allergies: No Known Drug Allergies (Verified , 09/01/07) Vitals & I&Os Vital Signs Date Time Temp Pulse Resp B/P (MAP) Pulse Ox O2 Delivery O2 Flow Rate FiO2 01/28/23 09:44 95 Room Air 01/28/23 07:35 36.4 58 16 154/83 (106) General Appearance: Alert, Oriented X3, Cooperative Respiratory: Clear to Auscultation Cardiovascular: Regular Rate Psych/Mental Status: Mental Status NL Hospital Course Was the Problem List Reviewed?: Yes Uneventful short course in ARU after suffering a CVA with left sided weakness and dysarthria. Plavix and ASA and statin maintained following ICU stay. BP was a challenge and Cardiology continued to monitor closely and some meds changes made. Overall her deficits had resolved and patient was deemed stable for DC and she declined any HH or outpatient PT. Labs (last 24 hrs) Laboratory Tests 01/23/23 05:34: Triglycerides Level 237H, Cholesterol Level 221H, LDL Cholesterol Direct 173H, VLDL Cholesterol 47H, HDL Cholesterol 33L 01/24/23 05:42: White Blood Count 8.2, Red Blood Count 4.36, Hemoglobin 12.3, Hematocrit 38, Mean Corpuscular Volume 87, Mean Corpuscular Hemoglobin 28, Mean Corpuscular Hemoglobin Concent 33, Red Cell Distribution Width 13.4, Platelet Count 260, Mean Platelet Volume 10.3, Immature Granulocyte % (Auto) 0, Neutrophils (%) (Auto) 48, Lymphocytes (%) (Auto) 34, Monocytes (%) (Auto) 16H, Eosinophils (%) (Auto) 2, Basophils (%) (Auto) 1, Neutrophils # (Auto) 3.9, Lymphocytes # (Auto) 2.8, Monocytes # (Auto) 1.3H, Eosinophils # (Auto) 0.1, Basophils # (Auto) 0.0, Immature Granulocyte # (Auto) 0.0, Sodium Level 143, Potassium Level 3.8, Chloride Level 113H, Carbon Dioxide Level 22, Anion Gap 8, Blood Urea Nitrogen 16, Creatinine 1.52H, Estimat Glomerular Filtration Rate 38, BUN/Creatinine Ratio 11, Glucose Level 98, Calcium Level 9.4, Corrected Calcium 9.6, Total Bilirubin 0.4, Aspartate Amino Transf (AST/SGOT) 15, Alanine Aminotransferase (ALT/SGPT) 9, Alkaline Phosphatase 82, Total Protein 6.0L, Albumin 3.7 Pending Labs Laboratory Tests 01/23/23 05:34: Triglycerides Level 237, Cholesterol Level 221, LDL Cholesterol Direct 173, VLDL Cholesterol 47, HDL Cholesterol 33 01/24/23 05:42: White Blood Count 8.2, Red Blood Count 4.36, Hemoglobin 12.3, Hematocrit 38, Mean Corpuscular Volume 87, Mean Corpuscular Hemoglobin 28, Mean Corpuscular Hemoglobin Concent 33, Red Cell Distribution Width 13.4, Platelet Count 260, Mean Platelet Volume 10.3, Immature Granulocyte % (Auto) 0, Neutrophils (%) (Auto) 48, Lymphocytes (%) (Auto) 34, Monocytes (%) (Auto) 16, Eosinophils (%) (Auto) 2, Basophils (%) (Auto) 1, Neutrophils # (Auto) 3.9, Lymphocytes # (Auto) 2.8, Monocytes # (Auto) 1.3, Eosinophils # (Auto) 0.1, Basophils # (Auto) 0.0, Immature Granulocyte # (Auto) 0.0, Sodium Level 143, Potassium Level 3.8, Chloride Level 113, Carbon Dioxide Level 22, Anion Gap 8, Blood Urea Nitrogen 16, Creatinine 1.52, Estimat Glomerular Filtration Rate 38, BUN/Creatinine Ratio 11, Glucose Level 98, Calcium Level 9.4, Corrected Calcium 9.6, Total Bilirubin 0.4, Aspartate Amino Transf (AST/SGOT) 15, Alanine Aminotransferase (ALT/SGPT) 9, Alkaline Phosphatase 82, Total Protein 6.0, Albumin 3.7 Discharge Home Medications: Active Scripts Active Losartan Potassium 100 Mg Tablet 100 Mg PO DAILY Clonidine HCl 0.1 Mg Tablet 0.1 Mg PO TID Aspirin EC (Aspirin) 81 Mg Tablet.dr 81 Mg PO DAILY Atorvastatin Calcium 80 Mg Tablet 80 Mg PO DAILY Clopidogrel (Clopidogrel Bisulfate) 75 Mg Tablet 75 Mg PO DAILY Amlodipine Besylate 5 Mg Tablet 5 Mg PO DAILY Ondansetron Odt (Ondansetron) 4 Mg Tab.rapdis 4 Mg SL Q4H PRN Protonix (Pantoprazole Sodium) 40 Mg Tablet.dr 40 Mg PO DAILY Reported Oxybutynin Chloride 5 Mg Tablet 2.5 Mg PO DAILY TAKES OF A 5MG TAB Potassium Chloride 10 Meq Tab.er.prt 10 Meq PO DAILY Venlafaxine HCl ER (Venlafaxine HCl) 150 Mg Tab.er.24 150 Mg PO DAILY Centrum Adults Tablet (Multivitamin/Iron/Folic Acid) 1 Each Tablet 1 Each PO DAILY Claritin (Loratadine) 10 Mg Tab.rapdis 10 Mg PO DAILY Levothyroxine Sodium 50 Mcg Tablet 50 Mcg PO DAILY Famotidine 40 Mg Tablet 40 Mg PO DAILY Neurontin (Gabapentin) 300 Mg Capsule 300 Mg PO HS Instructions to patient/family Please see electronic discharge instructions given to patient. Diagnosis/Problems Diagnosis/Problems (1) CVA (cerebral vascular accident) (2) Chronic renal disease, stage IV (3) Interstitial lung disease Status: Acute (4) Polymyositis MARLEY CAMPA DO Jan 28, 2023 06:33
[2023-01-28 07:35] VITALS: BP 154/83
[2023-01-28] MEDS: ASPIRIN enteric coated 81MG TABLET PO SCH (08:21)
[2023-01-28] MEDS: OXYBUTYNIN (DITROPAN) 5 MG TAB PO SCH (08:22)
[2023-01-28] MEDS: KCL 10 MEQ TAB (MICRO K) PO SCH (08:22)
[2023-01-28] MEDS: amLODIPine 5 MG TABLET PO SCH (08:22)
[2023-01-28] MEDS: LEVOTHYROXINE 50 MCG (LEVOTHROID) TAB PO SCH (08:22)
[2023-01-28] MEDS: MULTIVIT W/MINERALS TAB (THERAGRAN M) PO SCH (08:22)
[2023-01-28] MEDS: cloNIDine 0.1 MG TABLET PO SCH (08:22)
[2023-01-28] MEDS: VENlafaxine XR 75 MG (EFFEXOR XR) CAP PO SCH (08:22)
[2023-01-28] MEDS: FAMOTIDINE 20 MG TABLET PO SCH (08:22)
[2023-01-28] MEDS: LORATADINE (CLARITIN) 10 MG TAB PO SCH (08:22)
[2023-01-28] MEDS: ENOXAPARIN 40 MG/0.4 ML SYRINGE SC SCH (08:23)
[2023-01-28] MEDS: LOSARTAN 100 MG (COZAAR) TABLET PO SCH (08:23)
[2023-01-28] MEDS: PANTOPRAZOLE 40 MG (PROTONIX) TAB PO SCH (08:23)
[2023-01-28] MEDS: CLOPIDOGREL 75 MG TABLET PO SCH (08:23)
[2023-01-28] MEDS: SENNA W/DOCUSATE (SENOKOT S) TABLET PO SCH (08:26)
[2023-01-28] MEDS: polyethylene glycoL POWDER 17 GM (MIRALAX) PACK PO SCH (08:26)
[2023-01-28] MEDS: DOCUSATE SODIUM 100 MG CAPSULE PO SCH (08:26)
--- NOTE | 2023-01-28 13:38 | Therapy Team Discharge Summary ---
Therapy Discharge Summary Discharge Recommendations Date of Discharge Jan 28, 2023 at 10:40 Therapy D/C Recommendations: Home w/ Family Support, Physical Therapy Outpatient Physical Therapy Pt is a 67 y/o female s/p CVA on 01/22/23; Admitted to ARU on 01/23/23. At [facility], pt was Ind with no AD, driving, and working. Upon PT eval, pt was CGA/SBA for all aspects of functional mobility, including walking 150ft with no AD and 12 stairs. PT focused on B LE strength, balance/safety, endurance, walking, functional mobility, and Ind. Pt progressed well with PT and met all set goals. Pt d/c from ARU to home on 01/28/23; recommended OP PT. D/C from PT at this time. Roll Left to Right (QC): 6 Sit to Lying (QC): 6 Lying to Sitting/Side of Bed(Q: 6 Sit to Stand (QC): 6 Chair/Ijv-vl-Tlcuv Xfer(QC): 6 Toilet Transfer (QC): 6 Car Transfer (QC): 6 Does the Patient Walk: Yes Mode of Locomotion: Walk Anticipated Mode of Locomotion: Walk Walk 10 feet (QC): 6 Walk 50 ft with 2 Turns(QC): 6 Walk 150 ft (QC): 6 Walking 10ft on uneven surface: 6 Distance: 400ft x 2 Gait Assistive Device: None Does the Pt Use a Wheelchair: No Wheel 50 ft with 2 turns (QC): 9 Wheel 150 ft (QC): 9 Type of Wheelchair: N/A #of Steps: 12 1 Step (curb) (QC): 6 4 Steps (QC): 6 12 Steps (QC): 6 Balance Sitting Static: Normal Balance Sitting Dynamic: Normal Balance-Standing Static: Good Picking up an Object (QC): 6 Occupational Therapy Decreased Activ Tolerance, Decreased UE Strength, Impaired Funct Balance Eating (QC): 6 Oral Hygiene (QC): 6 Shower/Bathe Self (QC): 6 Upper Body Dressing (QC): 6 Lower Body Dressing (QC): 6 On/Off Footwear (QC): 6 Toileting Hygiene (QC): 6 PT Injection Wax Molder Goals Nursing Home Goals PT Nursing Home Goals Time Frame: Jan 31, 2023 Roll Left to Right (QC): 6 (Pt will be Mod I with all aspects of functional mobility with no AD, in order to be at PLOF and safely d/c home. ) Sit to Lying (QC): 6 (Pt will be Mod I with all aspects of functional mobility with no AD, in order to be at PLOF and safely d/c home. ) Lying-Sitting on Side/Bed(QC): 6 (Pt will be Mod I with all aspects of functi onal mobility with no AD, in order to be at PLOF and safely d/c home. ) Sit to Stand (QC): 6 (Pt will be Mod I with all aspects of functional mobility with no AD, in order to be at PLOF and safely d/c home. ) Chair/Uiw-fa-Lsyhp Xfer(QC): 6 (Pt will be Mod I with all aspects of functional mobility with no AD, in order to be at PLOF and safely d/c home. ) Toilet/Commode Transfer (QC): 6 (Pt will be Mod I with all aspects of functional mobility with no AD, in order to be at PLOF and safely d/c home. ) Car Transfer (QC): 6 (Pt will be Mod I with all aspects of functional mobility with no AD, in order to be at PLOF and safely d/c home. ) Does the Patient Walk: Yes Walk 10 feet (QC): 6 (Pt will be Mod I with all aspects of functional mobility with no AD, in order to be at PLOF and safely d/c home. ) Walk 10ft-Uneven Surface(QC): 6 (Pt will be Mod I with all aspects of functional mobility with no AD, in order to be at PLOF and safely d/c home. ) Walk 50ft with 2 Turns (QC): 6 (Pt will be Mod I with all aspects of functional mobility with no AD, in order to be at PLOF and safely d/c home. ) Walk 150 ft (QC): 6 (Pt will be Mod I with all aspects of functional mobility with no AD, in order to be at PLOF and safely d/c home. ) Does the Pt use WC or Scooter?: No Wheel 50 feet with 2 turns (QC: 9 Type: N/A Wheel 150 feet: 9 Type: N/A 1 Step (curb) (QC): 6 (Pt will be Mod I with all aspects of functional mobility with no AD, in order to be at PLOF and safely d/c home. ) 4 Steps (QC): 6 (Pt will be Mod I with all aspects of functional mobility with no AD, in order to be at PLOF and safely d/c home. ) 12 Steps (QC): 6 (Pt will be Mod I with all aspects of functional mobility with no AD, in order to be at PLOF and safely d/c home. ) Picking up an Object (QC): 6 (Pt will be Mod I with all aspects of functional mobility with no AD, in order to be at PLOF and safely d/c home. ) OT Nursing Home Goals Nursing Home Goals Time Frame: Jan 31, 2023 Acute change in mental status: 0 Inattention: 0 Disorganized thinkin Altered level of consciousness: 0 Toileting Hygiene (QC): 6 (met) Shower/Bathe Self (QC): 6 (met) Upper Body Dressing (QC): 6 (met) Lower Body Dressing (QC): 6 (met) On/Off Footwear (QC): 6 (met) 1=Demonstrate adherence to instructed precautions during ADL tasks. 2=Patient will verbalize/demonstrate understanding of assistive devices/modifications for ADL. 3=Patient will improve strength/tolerance for activity to enable patient to perform ADL's. ROLY SWENSON PT Jan 28, 2023 13:38
--- NOTE | 2023-01-31 12:21 | Occupational Ther Daily Note ---
OT Current Status-Daily Note Subjective LATE ENTRY FOR 01/25/2023: Pt alert, sitting in recliner. Pt agrees to therapy though fatigued from earlier therapies. No c/o pain. Mental Status/Objective Patient Orientation: Person, Place, Time, Situation ADL-Treatment Therapy Code Descriptions/Definitions Functional [place] Measure: 0=Not Assessed/NA 4=Minimal Assistance 1=Total Assistance 5=Supervision or Setup 2=Maximal Assistance 6=Modified [place] 3=Moderate Assistance 7=Complete IndependenceSCALE: Activities may be completed with or without assistive devices. 9-Fedavahxpv-jdbwxlp completes the activity by him/herself with no assistance from a helper. 5-Set-up or Clean-up Assistance-helper sets up or cleans up; patient completes activity. [place] assists only prior to or following the activity. 4-Supervision or Touching Assistance-helper provides verbal cues and/or touching/steadying and/or contact guard assistance as patient completes activity. Assistance may be provided throughout the activity or intermittently. 3-Partial/Moderate Assistance-helper does LESS THAN HALF the effort. [place] lifts, holds or supports trunk or limbs, but provides less than half the effort. 2-Substantial/Maximal Assistance-helper does MORE THAN HALF the effort. [place] lifts or holds trunk or limbs and provides more than half the effort. 8-Swonggeww-qmjaiy does ALL the effort. Patient does none of the effort to complete the activity. Or, the assistance of 2 or more helpers is required for the patient to complete the activity. If activity was not attempted, code reason: 7-Patient Refused. 9-Not Applicable-not attempted and the patient did not perform the activity before the current illness, exacerbation or injury. 10-Not Attempted due to Environmental Limitations-(lack of equipment, weather restraints, etc.). 88-Not Attempted due to Medical Conditions or Safety Concerns. Other Treatment Pt ambulates to therapy gym with SBA for safety. Pt completes B UE exercises to increase strength, stamina and L UE coordination for daily functional tasks. Pt is progressing with L UE coordination and strength to WFL when completing B UE tasks. Pt is able to reach and place small items in designated areas against gravity with minimal compensatory techniques with L UE. Pt tolerated all exercises well and no c/o pain. After session, pt sitting in recliner with call light/phone in reach. All needs met in room. OT Short Term Goals Short Term Goals Time Frame: Jan 28, 2023 Eatin Oral hygiene: 6 (standing) OT Nursing Home Goals Nursing Home Goals Time Frame: Jan 31, 2023 Acute change in mental status: 0 Inattention: 0 Disorganized thinkin Altered level of consciousness: 0 Toileting Hygiene (QC): 6 (met) Shower/Bathe Self (QC): 6 (met) Upper Body Dressing (QC): 6 (met) Lower Body Dressing (QC): 6 (met) On/Off Footwear (QC): 6 (met) 1=Demonstrate adherence to instructed precautions during ADL tasks. 2=Patient will verbalize/demonstrate understanding of assistive devices/modifications for ADL. 3=Patient will improve strength/tolerance for activity to enable patient to perform ADL's. OT Education/Plan Problem List/Assessment Assessment: Decreased Activ Tolerance, Decreased UE Strength Discharge Recommendations Plan/Recommendations: Continue POC Treatment Plan/Plan of Care Patient would benefit from OT for education, treatment and training to promote independence in ADL's, mobility, safety and/or upper extremity function for ADL's. Plan of Care: ADL Retraining, Concurrent Therapy, Functional Mobility, Group Exercise/Act as Ind, UE Funct Exercise/Act, UE Neuromus Re-Ed/Coord Treatment Duration: Jan 31, 2023 Frequency: At least 5 of 7 days/Wk (IRF) Estimated Hrs Per Day: 1.5 hours per day Rehab Potential: Good Time Start Time: 11:00 Stop Time: 12:00 DATE: Jan 31, 2023 Total Time Billed (hr/min): 60 Billed Treatment Time Late Entry for 01/25/2023: 1 visit-EX 4 (60 min) [facility] Jan 31, 2023 12:21
--- NOTE | 2023-01-31 13:10 | Therapy Team Discharge Summary ---
Therapy Discharge Summary Discharge Recommendations Date of Discharge Jan 28, 2023 at 10:40 Therapy D/C Recommendations: Home w/ Family Support, Physical Therapy Outpatient Physical Therapy Roll Left to Right (QC): 6 Sit to Lying (QC): 6 Lying to Sitting/Side of Bed(Q: 6 Sit to Stand (QC): 6 Chair/Ooc-lm-Zbndz Xfer(QC): 6 Toilet Transfer (QC): 6 Car Transfer (QC): 6 Does the Patient Walk: Yes Mode of Locomotion: Walk Anticipated Mode of Locomotion: Walk Walk 10 feet (QC): 6 Walk 50 ft with 2 Turns(QC): 6 Walk 150 ft (QC): 6 Walking 10ft on uneven surface: 6 Distance: 400ft x 2 Gait Assistive Device: None Does the Pt Use a Wheelchair: No Wheel 50 ft with 2 turns (QC): 9 Wheel 150 ft (QC): 9 Type of Wheelchair: N/A #of Steps: 12 1 Step (curb) (QC): 6 4 Steps (QC): 6 12 Steps (QC): 6 Balance Sitting Static: Normal Balance Sitting Dynamic: Normal Balance-Standing Static: Good Picking up an Object (QC): 6 Occupational Therapy Pt is a 67 y/o female s/p CVA on 01/22/23; Admitted to ARU on 01/23/23. At [facility], pt was Ind with no AD, driving, and working. Upon OT eval, pt was CGA/SBA for all aspects of functional mobility, no AD and 12 stairs, SBA/supervision for ADLs. OT focused on B UE strength, FMC, balance/safety, endurance, functional mobility, and Ind. Pt progressed well with OT and met all set goals. Pt d/c from ARU to home on 01/28/23;. D/C from OT at this time. Decreased Activ Tolerance, Decreased UE Strength Eating (QC): 6 Oral Hygiene (QC): 6 Shower/Bathe Self (QC): 6 Upper Body Dressing (QC): 6 Lower Body Dressing (QC): 6 On/Off Footwear (QC): 6 Toileting Hygiene (QC): 6 PT Secret Code Expert Goals Fdc Goals PT Secret Code Expert Goals Time Frame: Jan 31, 2023 Roll Left to Right (QC): 6 (Pt will be Mod I with all aspects of functional mobility with no AD, in order to be at PLOF and safely d/c home. ) Sit to Lying (QC): 6 (Pt will be Mod I with all aspects of functional mobility with no AD, in order to be at PLOF and safely d/c home. ) Lying-Sitting on Side/Bed(QC): 6 (Pt will be Mod I with all aspects of functional mobility with no AD, in order to be at PLOF and safely d/c home. ) Sit to Stand (QC): 6 (Pt will be Mod I with all aspects of functional mobility with no AD, in order to be at PLOF and safely d/c home. ) Chair/Sas-qc-Pmdbz Xfer(QC): 6 (Pt will be Mod I with all aspects of functional mobility with no AD, in order to be at PLOF and safely d/c home. ) Toilet/Commode Transfer (QC): 6 (Pt will be Mod I with all aspects of functional mobility with no AD, in order to be at PLOF and safely d/c home. ) Car Transfer (QC): 6 (Pt will be Mod I with all aspects of functional mobility with no AD, in order to be at PLOF and safely d/c home. ) Does the Patient Walk: Yes Walk 10 feet (QC): 6 (Pt will be Mod I with all aspects of functional mobility with no AD, in order to be at PLOF and safely d/c home. ) Walk 10ft-Uneven Surface(QC): 6 (Pt will be Mod I with all aspects of functional mobility with no AD, in order to be at PLOF and safely d/c home. ) Walk 50ft with 2 Turns (QC): 6 (Pt will be Mod I with all aspects of functional mobility with no AD, in order to be at PLOF and safely d/c home. ) Walk 150 ft (QC): 6 (Pt will be Mod I with all aspects of functional mobility with no AD, in order to be at PLOF and safely d/c home. ) Does the Pt use WC or Scooter?: No Wheel 50 feet with 2 turns (QC: 9 Type: N/A Wheel 150 feet: 9 Type: N/A 1 Step (curb) (QC): 6 (Pt will be Mod I with all aspects of functional mobility with no AD, in order to be at PLOF and safely d/c home. ) 4 Steps (QC): 6 (Pt will be Mod I with all aspects of functional mobility with no AD, in order to be at PLOF and safely d/c home. ) 12 Steps (QC): 6 (Pt will be Mod I with all aspects of functional mobility with no AD, in order to be at PLOF and safely d/c home. ) Picking up an Object (QC): 6 (Pt will be Mod I with all aspects of functional mobility with no AD, in order to be at PLOF and safely d/c home. ) OT Fdc Goals Fdc Goals Time Frame: Jan 31, 2023 Acute change in mental status: 0 Inattention: 0 Disorganized thinkin Altered level of consciousness: 0 Toileting Hygiene (QC): 6 (met) Shower/Bathe Self (QC): 6 (met) Upper Body Dressing (QC): 6 (met) Lower Body Dressing (QC): 6 (met) On/Off Footwear (QC): 6 (met) 1=Demonstrate adherence to instructed precautions during ADL tasks. 2=Patient will verbalize/demonstrate understanding of assistive devices/modifications for ADL. 3=Patient will improve strength/tolerance for activity to enable patient to perform ADL's. EBONY OCAMPO OT Jan 31, 2023 13:10
== END 2023-01-28 10:40 | disposition other institution (70) | DRG 57 ==
PROVIDERS: ADMIT Internal Medicine; ATTEND Internal Medicine
DX: I69.354 Hemiplegia and hemiparesis following cerebral infarction affecting left non-dominant side (principal); N18.4 Chronic kidney disease, stage 4 (severe); M33.20 Polymyositis, organ involvement unspecified; I69.322 Dysarthria following cerebral infarction; I69.398 Other sequelae of cerebral infarction; M21.372 Foot drop, left foot; I12.9 Hypertensive chronic kidney disease with stage 1 through stage 4 chronic kidney disease, or unspecified chronic kidney disease; J84.10 Pulmonary fibrosis, unspecified; E78.00 Pure hypercholesterolemia, unspecified; G62.9 Polyneuropathy, unspecified; K21.9 Gastro-esophageal reflux disease without esophagitis; E03.9 Hypothyroidism, unspecified; I34.0 Nonrheumatic mitral (valve) insufficiency; R41.0 Disorientation, unspecified; R00.1 Bradycardia, unspecified; T44.7X5A Adverse effect of beta-adrenoreceptor antagonists, initial encounter; Z79.82 Long term (current) use of aspirin; Z79.899 Other long term (current) drug therapy
CPT/HCPCS: 36415; 80053; 80061; 85025

== ENCOUNTER 2023-02-16 16:05 | Inpatient (IN) | payer MEDICARE, OTHER ==
[~2023-02-16] VITALS: Ht 159.4 cm; Wt 81.0 kg
[~2023-02-16 16:05] MED LIST changes: -ACETAMINOPHEN 325 MG TABLET PO PRN; -ALPRAZolam 0.25 MG TABLET PO PRN; -BISACODYL 10 MG SUPPOSITORY PR PRN; -CALCIUM CARBONATE 500 MG CHEW TABLET PO PRN; -DOCUSATE SODIUM 100 MG CAPSULE PO PRN; -LACTULOSE SYRUP 10GM/15ML (ENULOSE) 30ML UDC PO PRN; -LOPERAMIDE 2 MG (IMODIUM) TABLET PO PRN; +LOSA100T58 PO; -MELATONIN 3 MG TABLET PO PRN; -ONDANSETRON 4 MG (ZOFRAN) ORAL DISSOLVE TAB PO PRN; -Sodium Phosphate/Sodium Biphosphate ADULT enema PR PRN; -diphenhydrAMINE 25 MG TABLET PO PRN; -guaiFENesin/CODEINE 10ML UDC PO PRN
--- NOTE | 2023-02-16 16:19 | ED Cardiac General ---
History of Present Illness General Chief Complaint: Cardiac/General Problems Stated Complaint: LOW BLOOD PRESSURE Nursing Triage Note: ARRIVED VIA EMS FROM HOME. PT DESCRIBES A NEAR SYNCAPLE EPISODE AND LOW BP TODAY. FELT WEAK YESTERDAY. RECNENT CHANGE IN BP MED. Source: patient Exam Limitations: no limitations History of Present Illness Date Seen by Provider: Feb 16, 2023 Time Seen by Provider: 16:17 Initial Comments Patient is a 67-year-old female with a history of CVA who presents ED with generalized weakness. Weakness started yesterday. This became worse today. She had a job interview today had a near syncopal episode. She was having difficulty standing as she felt weak. Her daughter took her blood pressure which read in the 70s. She has a history of hypertension. She is on several different blood pressure medication. Her blood pressure read over 200 yesterday. Was recommended to start minoxidil which she took 2 doses yesterday as well as 1 dose this morning. She took her clonidine with amlodipine. EMS states blood pressure was 103/65. She is currently in physical therapy for her CVA. Left-sided deficits. She denies of any visual changes, sore throat, chest pain, shortness of breath, nausea, vomiting, diarrhea. Did have some abdominal pain today but did have a bowel movement with improvement. Denies of any urinary symptoms Allergies and Home Medications Allergies Coded Allergies: No Known Drug Allergies (Verified , 09/01/07) Patient Home Medication List Home Medication List Reviewed: Yes Acetaminophen (Tylenol) 325 Mg Tablet, 650 MG PO Q6H PRN for PAIN-MILD (1-4), (Reported) Entered as Reported by: SANDRA MILLARD on 02/17/231017 Last Action: Continued Amlodipine Besylate (Amlodipine Besylate) 5 Mg Tablet, 5 MG PO DAILY, (Reported) Entered as Reported by: SANDRA MILLARD on 02/17/231017 Last Action: Held Aspirin (Aspirin EC) 81 Mg Tablet.dr, 81 MG PO DAILY, (Reported) Entered as Reported by: SANDRA MILLARD on 02/17/231017 Last Action: Continued Atorvastatin Calcium (Atorvastatin Calcium) 80 Mg Tablet, 80 MG PO DAILY, (Reported) Entered as Reported by: SANDRA MILLARD on 02/17/231017 Last Action: Continued Clonidine HCl (Clonidine HCl) 0.1 Mg Tablet, 0.1 MG PO TID, (Reported) Entered as Reported by: SANDRA MILLARD on 02/17/231017 Last Action: Held Clopidogrel Bisulfate (Clopidogrel) 75 Mg Tablet, 75 MG PO DAILY, (Reported) Entered as Reported by: SANDRA MILLARD on 02/17/231017 Last Action: Continued Famotidine (Famotidine) 40 Mg Tablet, 40 MG PO DAILY, (Reported) Entered as Reported by: JAN BLACKMON on 06/30/211219 Last Action: Converted Gabapentin (Neurontin) 300 Mg Capsule, 300 MG PO HS, (Reported) Entered as Reported by: JAN BLACKMON on 06/30/211219 Last Action: Continued Levothyroxine Sodium (Levothyroxine Sodium) 50 Mcg Tablet, 50 MCG PO DAILY, (Reported) Entered as Reported by: JAN BLACKMON on 06/30/211219 Last Action: Continued Loratadine (Claritin) 10 Mg Tablet, 10 MG PO DAILY, (Reported) Entered as Reported by: SANDRA MILLARD on 02/17/231017 Last Action: Continued Losartan Potassium (Losartan Potassium) 100 Mg Tablet, 100 MG PO DAILY, (Reported) Entered as Reported by: SANDRA MILLARD on 02/17/231017 Last Action: Held Multivitamin/Iron/Folic Acid (Centrum Adults Tablet) 1 Each Tablet, 1 EACH PO DAILY, (Reported) Entered as Reported by: JAN BLACKMON on 06/30/211219 Last Action: Continued Oxybutynin Chloride (Oxybutynin Chloride) 5 Mg Tablet, 2.5 MG PO DAILY, (Reported) Entered as Reported by: JAN BLACKMON on 06/30/211221 Last Action: Continued Potassium Chloride (Potassium Chloride) 10 Meq Tab.er.prt, 10 MEQ PO DAILY, (Reported) Entered as Reported by: JAN BLACKMON on 06/30/211219 Last Action: Held Venlafaxine HCl (Venlafaxine HCl ER) 150 Mg Tab.er.24, 150 MG PO DAILY, (Reported) Entered as Reported by: JAN BLACKMON on 06/30/211219 Last Action: Converted Discontinued Medications Amlodipine Besylate (Amlodipine Besylate) 5 Mg Tablet, 5 MG PO DAILY Discontinued Reason: Duplicate Order Prescribed by: MARLEY CAMPA on 01/28/23632 Last Action: Discontinued Aspirin (Aspirin EC) 81 Mg Tablet., 81 MG PO DAILY Discontinued Reason: Duplicate Order Prescribed by: MARLEY CAMPA on 01/28/23632 Last Action: Discontinued Atorvastatin Calcium (Atorvastatin Calcium) 80 Mg Tablet, 80 MG PO DAILY Discontinued Reason: Duplicate Order Prescribed by: MARLEY CAMPA on 01/28/23632 Last Action: Discontinued Clonidine HCl (Clonidine HCl) 0.1 Mg Tablet, 0.1 MG PO TID Discontinued Reason: Duplicate Order Prescribed by: MARLEY CAMPA on 01/28/23632 Last Action: Discontinued Clopidogrel Bisulfate (Clopidogrel) 75 Mg Tablet, 75 MG PO DAILY Discontinued Reason: Duplicate Order Prescribed by: MARLEY CAMPA on 01/28/23632 Last Action: Discontinued Loratadine (Claritin) 10 Mg Tab.rapdis, 10 MG PO DAILY, (Reported) Discontinued Reason: No Longer Taking Entered as Reported by: JAN BLACKOMN on 06/30/21 1220 Last Action: Discontinued Losartan Potassium (Losartan Potassium) 100 Mg Tablet, 100 MG PO DAILY Discontinued Reason: Duplicate Order Prescribed by: MARLEY CAMPA on 01/28/23632 Last Action: Discontinued Minoxidil (Minoxidil) 10 Mg Tab, 10 MG PO BID, (Reported) Entered as Reported by: SANDRA MILLARD on 02/17/23 1018 Last Action: Held Ondansetron (Ondansetron Odt) 4 Mg Tab.rapdis, 4 MG SL Q4H PRN for NAUSEA/VOMITING Discontinued Reason: No Longer Taking Prescribed by: ANASTASIA VU on 12/31/221404 Last Action: Discontinued Pantoprazole Sodium (Protonix) 40 Mg Tablet., 40 MG PO DAILY Discontinued Reason: No Longer Taking Prescribed by: ANASTASIA VU on 12/31/221404 Last Action: Discontinued Review of Systems Review of Systems Constitutional: No chills, No diaphoresis EENTM: No Double Vision, No Eye Pain Respiratory: Denies Cough, Denies Orthopnea Cardiovascular: Denies Chest Pain Gastrointestinal: Denies Abdominal Pain, Denies Nausea, Denies Vomiting Genitourinary: Denies Discharge Musculoskeletal: No back pain Skin: No change in color, No change in hair/nails All Other Systems Reviewed Negative Unless Noted: Yes Past Ltzbhfk-Yxwvza-Obksjd Hx Patient Social History Tobacco Use?: No Substance use?: No Alcohol Use?: No Immunizations Up To Date Tetanus Booster (TDap): Unknown PED Vaccines UTD: Yes First/Initial COVID19 Vaccinat: AUGUST 2020 Second COVID19 Vaccination [place]: SEPTEMBER 2020 Third COVID19 Vaccination Date: AUGUST 2020 Seasonal Allergies Seasonal Allergies: Yes Past Medical History Surgery/Hospitalization HX: HIATAL HERNIA REPAIR, B/P, CHOLECYSTECTOMY, GERD, ANXIETY, STAGE 4 KIDNEY DX, INTERSTITIAL LUNG DX, PT TAKES IV RITUXAN INFUSIONS Q 6 MONTHS AT [facility] [place] IN [place], Surgeries: Yes (ORAL SURGERY) Gallbladder Respiratory: Yes (INTERSTITIAL LUNG DISEASE--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 BASELINE CREATININE 1.7 ON AVERAGE) Renal Failure Gastrointestinal: Yes Gastroesophageal Reflux Musculoskeletal: Yes (POLYMYOSITIS) Endocrine: Yes (OVERLAP SYNDROME) Hypothyroidsim HEENT: No Loss of Vision: Denies Hearing Impairment: Denies Cancer: No Psychosocial: Yes Anxiety, Depression Integumentary: No Blood Disorders: Yes (ANEMIA) Adverse Reaction/Blood Tranf: No Family Medical History No Pertinent Family Hx Physical Exam Vital Signs Vital Signs - First Documented 02/16/23 16:08 Temp 36.9 Pulse 75 Resp 16 B/P (MAP) 60/47 (51) Pulse Ox 97 O2 Delivery Room Air Capillary Refill : Less Than 3 Seconds Height, Weight, BMI Height: 5'1.00" Weight: 169lbs. 4.8oz. 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 Blood draw noted. Progress/Results/Core Measures Results/Orders Lab Results Laboratory Tests Test 02/16/23 16:36 02/16/23 18:00 Range/Units Urine Color YELLOW Urine Clarity CLEAR Urine pH 5.5 5-9 Urine Specific [facility] 1.010 L 1.016-1.022 Urine Protein TRACE H NEGATIVE Urine Glucose (UA) NEGATIVE NEGATIVE Urine Ketones NEGATIVE NEGATIVE Urine Nitrite NEGATIVE NEGATIVE Urine Bilirubin NEGATIVE NEGATIVE Urine Urobilinogen 0.2 < = 1.0 MG/DL Urine Leukocyte Esterase NEGATIVE NEGATIVE Urine RBC (Auto) TRACE H NEGATIVE Urine RBC NONE /HPF Urine WBC NONE /HPF Urine Squamous Epithelial Cells NONE /HPF Urine Crystals NONE /LPF Urine Bacteria NEGATIVE /HPF Urine Casts NONE /LPF Urine Mucus NEGATIVE /LPF Urine Culture Indicated NO White Blood Count 16.6 H 4.3-11.0 10^3/uL Red Blood Count 4.38 3.80-5.11 10^6/uL Hemoglobin 12.4 11.5-16.0 g/dL Hematocrit 39 35-52 % Mean Corpuscular Volume 88 80-99 fL Mean Corpuscular Hemoglobin 28 25-34 pg Mean Corpuscular Hemoglobin Concent 32 32-36 g/dL Red Cell Distribution Width 13.2 10.0-14.5 % Platelet Count 306 130-400 10^3/uL Mean Platelet Volume 10.4 9.0-12.2 fL Immature Granulocyte % (Auto) 1 % Neutrophils (%) (Auto) 61 42-75 % Lymphocytes (%) (Auto) 29 12-44 % Monocytes (%) (Auto) 10 0-12 % Eosinophils (%) (Auto) 0 0-10 % Basophils (%) (Auto) 0 0-10 % Neutrophils # (Auto) 10.0 H 1.8-7.8 10^3/uL Lymphocytes # (Auto) 4.7 H 1.0-4.0 10^3/uL Monocytes # (Auto) 1.6 H 0.0-1.0 10^3/uL Eosinophils # (Auto) 0.1 0.0-0.3 10^3/uL Basophils # (Auto) 0.1 0.0-0.1 10^3/uL Immature Granulocyte # (Auto) 0.1 0.0-0.1 10^3/uL Neutrophils % (Manual) 59 % Lymphocytes % (Manual) 30 % Monocytes % (Manual) 8 % Eosinophils % (Manual) 1 % Basophils % (Manual) 2 % Band Neutrophils 0 % Blood Morphology Comment NORMAL Prothrombin Time 13.6 12.2-14.7 SEC INR Comment 1.0 0.8-1.4 Activated Partial Thromboplast Time 32 24-35 SEC Sodium Level 144 135-145 MMOL/L Potassium Level 3.9 3.6-5.0 MMOL/L Chloride Level 115 H 98-107 MMOL/L Carbon Dioxide Level 18 L 21-32 MMOL/L Anion Gap 11 5-14 MMOL/L Blood Urea Nitrogen 24 H 7-18 MG/DL Creatinine 3.20 H 0.60-1.30 MG/DL Estimat Glomerular Filtration Rate 15 BUN/Creatinine Ratio 8 Glucose Level 119 H 70-105 MG/DL Lactic Acid Level 0.84 0.50-2.00 MMOL/L Calcium Level 8.6 8.5-10.1 MG/DL Corrected Calcium 8.8 8.5-10.1 MG/DL Magnesium Level 1.7 1.6-2.4 MG/DL Total Bilirubin 0.3 0.1-1.0 MG/DL Aspartate Amino Transf (AST/SGOT) 23 5-34 U/L Alanine Aminotransferase (ALT/SGPT) 16 0-55 U/L Alkaline Phosphatase 83 40-136 U/L Myoglobin 229.0 H 10.0-92.0 NG/ML Troponin I < 0.028 <0.028 NG/ML B-Type Natriuretic Peptide 56.4 <100.0 PG/ML Total Protein 5.2 L 6.4-8.2 GM/DL Albumin 3.7 3.2-4.5 GM/DL Lipase 58 8-78 U/L Micro Results Microbiology 02/16/23 Blood Culture - Preliminary, Resulted No growth 02/16/23 Blood Culture - Preliminary, Resulted No growth My Orders Orders - ENMANUEL MERRITT PA Cbc With Automated Diff (02/16/23 16:15) Magnesium (02/16/23 16:15) Chest 1 View, Ap/Pa Only (02/16/23 16:15) Ekg Tracing (02/16/23 16:15) Comprehensive Metabolic Panel (02/16/23 16:15) Myoglobin Serum (02/16/23 16:15) Protime With Inr (02/16/23 16:15) Partial Thromboplastin Time (02/16/23 16:15) O2 (02/16/23 16:15) Monitor-Rhythm Ecg Trace Only (02/16/23 16:15) Ed Iv/Invasive Line Start (02/16/23 16:15) Lipase (02/16/23 16:15) Bnp [place] (02/16/23 16:15) Troponin I [place] (02/16/23 16:15) Ns Iv 1000 Ml (Ns Iv 1000 Ml) (02/16/23 16:20) Ns Iv 1000 Ml (Ns Iv 1000 Ml) (02/16/23 16:20) Blood Culture (02/16/23 16:35) Lactic Acid Analyzer (02/16/23 16:35) Urinalysis (02/16/23 16:36) Norepinephrine 8 Mg/250 Ml (Norepinephri (02/16/23 16:45) Ct Head Wo (02/16/23 16:44) Atropine Inj 1 Mg Syringe (Atropine Inj (02/16/23 17:00) Atropine Injection (Atropine Injection) (02/16/23 17:01) Abdomen/Kub [place] (02/16/23 17:53) Cefepime Injection (Cefepime Injection) (02/16/23 18:00) Manual Differential (02/16/23 18:00) Ekg Tracing (02/16/23 18:22) Blood Culture (02/16/23 18:10) Ed Admission (Communication) (02/16/23 18:42) Medications Given in ED Vital Signs/I&O 02/16/23 02/16/23 02/16/23 02/16/23 16:08 16:49 17:12 17:15 Temp 36.9 Pulse 75 73 99 88 Resp 16 B/P (MAP) 60/47 (51) 72/37 136/51 83/41 Pulse Ox 97 O2 Delivery Room Air 02/16/23 02/16/23 02/16/23 17:22 20:45 20:47 Temp 36.9 Pulse 92 85 88 Resp 16 16 B/P (MAP) 63/39 127/60 (82) 113/74 Pulse Ox 95 94 O2 Delivery Room Air Room Air Blood Pressure Mean: 51 Comment Sinus rhythm, moderate voltage criteria for LVH, nonspecific T wave abnormality in the lateral leads. Prolonged QT interval, 77 bpm, QRS duration 96 MS, QTc 482 MS EKG : Comment Second EKG showed sinus bradycardia with first-degree AV block with occasional supraventricular premature complexes, moderate T wave abnormality in the anterior lateral leads. 49 bpm, QRS duration 88 MS, QTc 446 MS Critical Care Note Critical Care Start Time: 16:30 Stop Time: 17:20 Total Time (minutes) 50 Progress Severe hypotension that required fluid resuscitation, Levophed. Symptomatic bradycardia that required 1 mg of atropine Departure Communication (Admissions) Time/Spoke to Admitting Phy: 17:00 Consulted with cardiology who agreed to consult patient. Communication (PCP) Patient was hypotensive on arrival. Complain of generalized weakness and feeling tired. Symptoms started yesterday. Near syncopal today while at a interview. No chest pain short of breath abdominal pain vomiting or diarrhea. Increase her minoxidil 10 mg twice daily yesterday as well as this morning. She did take a clonidine which she takes 3 times a day. Currently on amlodipine and losartan for BP. She was hypertensive yesterday found to be hypotensive today. Concern that hypotension is secondary to blood pressure medication. Patient has residual left-sided deficits from previous stroke. Denies of any increase unilateral weakness, sensory changes. No evidence of facial droop. Alert and orient x4. GCS of 15. NIH was 2. Mild left-sided limb ataxia. Cardiac work- up was initiated. EKG showed sinus rhythm with 77 bpm. She did have a prolonged QT interval 450. Nonspecific T wave abnormality in the lateral leads which appears to be more chronic. Patient was started on 2 L of fluid with 2 peripheral IV. No significant improvement of her blood pressure. Started Levophed peripheral. Due to the Levophed started a central line which was placed in her right femoral vein. She agreed proceed with the procedure. Discussed potential risk and complications and patient acknowledges. Successful attempt with blood return and x-ray. Patient was started on 3 L fluid. Levophed drip stopped started at 0.05. Did had to decrease to 0.03 as she started becoming too hypertensive. She had an episode where she became bradycardic when the Levophed was started. Heart rate did drop down into the 30s. She started becoming diaphoretic. She was given atropine 1 mg and applied pads. Her heart rate did improve to the 100's. Improvement of her blood pressure as well. CBC showed elevated white blood count of 16. Blood cultures was added as well as a lactic acid. She was started on cefepime broad-spectrum antibiotics prophylactically. Urinalysis negative for infection. Chest x-ray was unremarkable. Due to her recent stroke did obtain a CT scan of her head which did not note any acute abnormality. Not currently in the timeframe for tPA or intervention. She is currently in PT. chemistry showed a creatinine of 3.50 and GFR 12 which shows acute on chronic kidney disease. Likely secondary to hypoperfusion. Cardiac work-up was unremarkable. Heart rate improved remained in the 80s. She remained asymptomatic. No chest pain, cough or shortness of breath or abdominal pain at this time. She did have abdominal pain today had a bowel movement which was unremarkable. Soft abdomen. Equal blood pressures bilateral. Currently on Plavix. Patient was discussed with Dr. Bertrand regarding admission. Continue with treatment as planned at this time. Will consult. Patient was discussed with Dr. Campa hospitalist who agreed to accept patient. No known cardiac history according to family and sister at bedside. Total critical care time 50 minutes. Impression Primary Impression: Hypotension Additional Impression: EARL (acute kidney injury) Disposition: 09 ADMITTED INPATIENT Condition: Stable Admissions Decision to Admit Reason: Admit from ER (General) Decision to Admit/Date: Feb 16, 2023 Time/Decision to Admit Time: 18:54 Departure-Patient Inst. Referrals: ANALI MENJIVAR MD (PCP/Family) Primary Care Physician ENMANUEL MERRITT Feb 16, 2023 16:19
[2023-02-16] MEDS ORDERED: NS IV 1000 ML 1,000 ML ONE (16:20)
[2023-02-16] MEDS ORDERED: NS IV 1000 ML 1,000 ML IV STA (16:20)
--- NOTE | 2023-02-16 16:36 | Diagnostic Imaging Report ---
INDICATION: Chest pain, near syncope. TECHNIQUE: Frontal chest obtained at 04:19 p.m. and compared to 01/21/2023. FINDINGS: Heart is borderline in size. There is no focal infiltrate or pneumothorax or pleural fluid. IMPRESSION: Borderline heart size with no acute process in the chest. Dictated by: Dictated on workstation # [id number]
[2023-02-16] MEDS ORDERED: NOREPINEPHRINE 8 MG/250 ML 250 ML IV SCH (16:45)
[2023-02-16] MEDS ORDERED: ATROPINE 1 MG/10 ML EMERGENCY SYRINGE IV ONE (17:00)
[2023-02-16] MEDS ORDERED: ATROPINE INJ 0.4 MG/ML SDV ONE (17:01)
[2023-02-16] MEDS ORDERED: CEFEPIME INJECTION 2,000 MG in NS (IVPB) 50 ML 50 ML IV ONE (18:00)
[2023-02-16 18:07] LABS: BASOPHILS # (AUTO) 0.1 10^3/uL (0.0-0.1); BASOPHILS % (AUTO) 0 % (0-10); EOSINOPHILS # (AUTO) 0.1 10^3/uL (0.0-0.3); EOSINOPHILS % (AUTO) 0 % (0-10); HEMATOCRIT 39 % (35-52); HEMOGLOBIN 12.4 g/dL (11.5-16.0); LYMPHOCYTES # (AUTO) 4.7 10^3/uL (1.0-4.0); LYMPHOCYTES % (AUTO) 29 % (12-44); MEAN CORPUSCULAR HEMOGLOBIN 28 pg (25-34); MEAN CORPUSCULAR HGB CONC 32 g/dL (32-36); MEAN CORPUSCULAR VOLUME 88 fL (80-99); MEAN PLATELET VOLUME 10.4 fL (9.0-12.2); MONOCYTES # (AUTO) 1.6 10^3/uL (0.0-1.0); MONOCYTES % (AUTO) 10 % (0-12); NEUTROPHILS % (AUTO) 61 % (42-75); PLATELET COUNT 306 10^3/uL (130-400); WHITE BLOOD COUNT 16.6 10^3/uL (4.3-11.0)
--- NOTE | 2023-02-16 18:17 | Diagnostic Imaging Report ---
INDICATION: Central line placement. COMPARISON: 12/31/2022. TECHNIQUE: Single radiograph of the abdomen dated 02/16/2023. FINDINGS: A central vascular catheter is present overlying the right inguinal region and the distal tip overlies the right sacral ala. Nonobstructive bowel gas pattern. No free air. No acute osseous abnormality. No suspicious radiopaque foreign body. IMPRESSION: Vascular catheter present extending from the right inguinal region so that the distal tip terminates overlying the right sacral ala. Dictated by: Dictated on workstation # [id number]
[2023-02-16 18:19] LABS: PROTHROMBIN TIME PATIENT 13.6 SEC (12.2-14.7)
[2023-02-16 18:21] LABS: ALBUMIN 3.7 GM/DL (3.2-4.5); CHLORIDE 115 MMOL/L (98-107)
[2023-02-16 18:22] LABS: POTASSIUM 3.9 MMOL/L (3.6-5.0); SODIUM 144 MMOL/L (135-145)
[2023-02-16 18:23] LABS: CALCIUM 8.6 MG/DL (8.5-10.1)
[2023-02-16 18:24] LABS: GLUCOSE 119 MG/DL (70-105); TOTAL PROTEIN 5.2 GM/DL (6.4-8.2)
[2023-02-16 18:25] LABS: CARBON DIOXIDE 18 MMOL/L (21-32)
[2023-02-16 18:26] LABS: BILIRUBIN,TOTAL 0.3 MG/DL (0.1-1.0)
[2023-02-16 18:27] LABS: ALKALINE PHOSPHATASE 83 U/L (40-136)
[2023-02-16 18:28] LABS: GFR ESTIMATED 15
[2023-02-16 18:29] LABS: BAND NEUTROPHILS 0 %; BASOPHILS % (MANUAL) 2 %; BUN/CREATININE RATIO 8; EOSINOPHILS % (MANUAL) 1 %; LYMPHOCYTES % (MANUAL) 30 %; MONOCYTES % (MANUAL) 8 %; NEUTROPHILS % (MANUAL) 59 %; RBC MORPH NORMAL
[2023-02-16 18:31] LABS: ALANINE AMINOTRANSFERASE 16 U/L (0-55); MAGNESIUM 1.7 MG/DL (1.6-2.4)
[2023-02-16 18:32] LABS: LIPASE 58 U/L (8-78)
[2023-02-16 18:37] LABS: BILIRUBIN,URINE NEGATIVE (NEGATIVE); CLARITY,URINE CLEAR; COLOR,URINE YELLOW; GLUCOSE, URINE (UA) NEGATIVE (NEGATIVE); KETONES,URINE NEGATIVE (NEGATIVE); LEUKOCYTE ESTERASE ,URINE NEGATIVE (NEGATIVE); NITRITE,URINE NEGATIVE (NEGATIVE); PH,URINE 5.5 (5-9); PROTEIN,URINE TRACE (NEGATIVE)
[2023-02-16 18:39] LABS: BACTERIA,URINE NEGATIVE /HPF
--- NOTE | 2023-02-16 18:45 | Diagnostic Imaging Report ---
PROCEDURE: CT head without contrast. TECHNIQUE: Multiple contiguous axial images were obtained through the brain without the use of intravenous contrast. Auto Exposure Controls were utilized during the CT exam to meet ALARA standards for radiation dose reduction. INDICATION: Syncope. COMPARISON: CT of the head on 01/13/2023. FINDINGS: The waterman-white matter differentiation is preserved. No acute intracranial hemorrhage. Scattered hypoattenuation within the periventricular and subcortical white matter. Generalized prominence of ventricles and cortical sulci. No intracranial mass or fluid collection. No midline shift or mass effect. Subarachnoid cisterns are maintained. The sella is normal. There are scattered calcifications within the intracranial vasculature. IMPRESSION: No acute intracranial hemorrhage. No large vascular territory estes-white loss. No intracranial mass, midline shift, or hydrocephalus. Mild bibasilar vessel ischemic disease. Mild global volume loss. Dictated by: Dictated on workstation # [id number]
[2023-02-16] MEDS ORDERED: ANTACID SUSPENSION 30 ML UDC PO PRN (21:15)
[2023-02-16] MEDS ORDERED: ONDANSETRON INJECTION 4 MG/2 ML (SDV) IV PRN (21:15)
[2023-02-16] MEDS ORDERED: ENOXAPARIN 40 MG/0.4 ML SYRINGE SC SCH (21:15)
[2023-02-16] MEDS ORDERED: ONDANSETRON 4 MG ORAL DISSOLVE TABLET PO PRN (21:15)
[2023-02-16] MEDS ORDERED: LACTULOSE SYRUP 10GM/15ML 30ML UDC PO PRN (21:15)
[2023-02-16] MEDS ORDERED: MELATONIN 3 MG TABLET PO PRN (21:15)
[2023-02-16] MEDS ORDERED: MILK OF MAGNESIA 400 MG/5 ML 30 ML UDC PO PRN (21:15)
[2023-02-16] MEDS ORDERED: morphine INJ 4 MG/ML 1 ML (VIAL/SYRINGE) IV PRN (21:15)
[2023-02-16] MEDS ORDERED: ACETAMINOPHEN 325 MG TABLET PO PRN (21:15)
[2023-02-16] MEDS ORDERED: BISACODYL 10 MG SUPPOSITORY PR PRN (21:15)
[2023-02-16] MEDS ORDERED: CALCIUM CARBONATE 500 MG CHEW TABLET PO PRN (21:15)
[2023-02-16] MEDS ORDERED: oxyCODONE IMMEDIATE RELEASE 5 MG TABLET PO PRN (21:15)
[2023-02-16] MEDS ORDERED: diphenhydrAMINE INJ 50 MG/ML VIAL IVP PRN (21:15)
[2023-02-16] MEDS ORDERED: NS IV 500 ML 500 ML IV PRN (21:15)
[2023-02-16] MEDS ORDERED: diphenhydrAMINE 25 MG TABLET PO PRN (21:15)
--- NOTE | 2023-02-16 21:18 | Tele-ICU Progress Note ---
Subjective Date Seen by a Provider: Feb 16, 2023 Subjective/Events-last exam This virtual visit was conducted using real time audio/video. Thank you for asking us to see this patient for critical care services due to anti-hypertenive induced hypotension (60/47). Recent events: PE: VSS. 113/67 0n Levo. O2 sat 97% on RA. HEENT: No obvious masses, adenopathy or JVD. Chest: clear to auscultation. CV: RRR S1 S2 No murmur or added sounds. Abd: Non-tender. Bowel sounds Y. : Unremarkable. 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 No obvious focal findings. Extremities: No edema. Capillary refill < 3 seconds. Skin: unremarkable. Results: Elevated WCC 16.6, BUN 24, Creat 3.2, BG 119. CXR: Clear. Available chart/ vitals / labs / images reviewed. Video assessment done using teleICU camera, rest of exam as per RN. A/P: Critical Care: critically ill patient. Cont. Levophed, IVF. Discussed with UZIEL Kaur. Asked RN to reach out to eICU if any questions or concerns later. Time spent with patient/coordination of care with other health professionals (mins): 20 Sepsis Event Evaluation Height, Weight, BMI Height: 5'1.00" Weight: 169lbs. 4.8oz. 76.777923vm; 32.00 BMI Method:Stated Focused Exam Lactate Level 02/16/23 18:00: Lactic Acid Level 0.84 Lactic Acid Level Laboratory Tests Test 02/16/23 18:00 Lactic Acid Level 0.84 MMOL/L (0.50-2.00) Exam Exam Patient acknowledged, consented, and participated in this virtual visit which was conducted using real time audio/video Vital Signs Date Time Temp Pulse Resp B/P (MAP) Pulse Ox O2 Delivery O2 Flow Rate FiO2 02/16/23 17:22 92 63/39 02/16/23 17:15 88 83/41 02/16/23 17:12 99 136/51 02/16/23 16:49 73 72/37 02/16/23 16:08 36.9 75 16 60/47 (51) 97 Room Air Height & Weight Height: 5'1.00" Weight: 169lbs. 4.8oz. 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 Critical Care: Critically Ill Patient (See free text) JAQUELINE VEE MD Feb 16, 2023 21:18
[2023-02-16] MEDS: NOREPINEPHRINE 8 MG/250 ML 250 ML IV SCH (21:42)
[2023-02-16 22:07] VITALS: BP 127/60
[2023-02-16] MEDS ORDERED: RT-ALBUTEROL SULF 2.5 MG/3 ML PRE-MIX VIAL INH PRN (22:15)
[2023-02-16] MEDS: NS IV 1000 ML 1,000 ML IV SCH (22:25)
[2023-02-17 04:42] LABS: BASOPHILS % (AUTO) 0 % (0-10); EOSINOPHILS # (AUTO) 0.1 10^3/uL (0.0-0.3); EOSINOPHILS % (AUTO) 1 % (0-10); HEMATOCRIT 32 % (35-52); HEMOGLOBIN 10.6 g/dL (11.5-16.0); LYMPHOCYTES % (AUTO) 26 % (12-44); MEAN CORPUSCULAR HEMOGLOBIN 29 pg (25-34); MEAN CORPUSCULAR HGB CONC 33 g/dL (32-36); MEAN CORPUSCULAR VOLUME 87 fL (80-99); MEAN PLATELET VOLUME 10.3 fL (9.0-12.2); MONOCYTES # (AUTO) 1.4 10^3/uL (0.0-1.0); MONOCYTES % (AUTO) 12 % (0-12); NEUTROPHILS # (AUTO) 7.2 10^3/uL (1.8-7.8); NEUTROPHILS % (AUTO) 61 % (42-75); PLATELET COUNT 245 10^3/uL (130-400); WHITE BLOOD COUNT 11.8 10^3/uL (4.3-11.0)
[2023-02-17 05:18] LABS: ALBUMIN 3.1 GM/DL (3.2-4.5); BILIRUBIN,TOTAL 0.3 MG/DL (0.1-1.0); CALCIUM 8.1 MG/DL (8.5-10.1); CREATININE SERUM 2.71 MG/DL (0.60-1.30); MAGNESIUM 1.5 MG/DL (1.6-2.4); PHOSPHORUS 3.5 MG/DL (2.3-4.7); POTASSIUM 3.6 MMOL/L (3.6-5.0); TOTAL PROTEIN 4.8 GM/DL (6.4-8.2)
[2023-02-17] MEDS ORDERED: POTASSIUM CL 10MEQ/50ML IVPB 50 ML IV SCH (06:00)
[2023-02-17] MEDS ORDERED: POTASSIUM CHLORIDE 20 MEQ TABLET PO SCH (06:00)
[2023-02-17] MEDS ORDERED: MAGNESIUM 1 GM/100 ML IVPB 100 ML IV SCH (06:00)
[2023-02-17] MEDS: CEFEPIME INJECTION 1,000 MG in NS (IVPB) 50 ML 50 ML IV SCH ×2 (06:20→17:45)
[2023-02-17] MEDS: NS IV 1000 ML 1,000 ML IV SCH ×3 (06:20→21:45)
[2023-02-17] MEDS: DOCUSATE SODIUM 100 MG CAPSULE PO SCH ×2 (08:45→20:24)
[2023-02-17] MEDS: SENNOSIDES 8.6 MG TABLET PO SCH ×2 (08:45→20:24)
--- NOTE | 2023-02-17 09:22 | Diagnostic Imaging Report ---
INDICATION: Hypotension Frontal chest obtained at 4:26 a.m. compared to 02/16/2023 Heart is borderline in size. Mediastinal silhouette is unremarkable. The lungs are clear. There is no pneumothorax or pleural fluid. IMPRESSION: No acute process in the chest. Dictated by: Dictated on workstation # [id number]
--- NOTE | 2023-02-17 09:47 | Tele-ICU Progress Note ---
Subjective Date Seen by a Provider: Feb 17, 2023 Time Seen by a Provider: 09:47 Subjective/Events-last exam 1 Sepsis Event Evaluation Height, Weight, BMI Height: 5'1.00" Weight: 169lbs. 4.8oz. [id number]; 31.24 BMI Method:Stated Focused Exam Lactate Level 02/16/23 18:00: Lactic Acid Level 0.84 Exam Exam Patient acknowledged, consented, and participated in this virtual visit which was conducted using real time audio/video Vital Signs Date Time Temp Pulse Resp B/P (MAP) Pulse Ox O2 Delivery O2 Flow Rate FiO2 02/17/23 08:00 36.8 02/17/23 06:00 83 107/70 (82) 98 Room Air 02/17/23 05:00 84 18 96/52 (67) 100 Room Air 02/17/23 04:00 98 Room Air 02/17/23 04:00 36.9 87 120/60 (80) Room Air 02/17/23 03:00 82 20 106/57 (73) 99 Room Air 02/17/23 02:00 85 22 95/58 (70) 99 Room Air 02/17/23 01:00 80 02/17/23 01:00 76 94/47 (63) 99 Room Air 02/17/23 00:00 76 24 104/47 (66) 98 Room Air 02/16/23 23:54 98 Room Air 02/16/23 23:00 83 102/51 (68) 98 Room Air 02/16/23 22:30 81 21 98 Room Air 02/16/23 22:14 97 Room Air 02/16/23 22:07 36.9 75 97 21 02/16/23 22:05 80 02/16/23 22:00 81 21 100/70 (80) 98 Room Air 02/16/23 21:42 87 127/60 02/16/23 21:30 58 22 132/89 (103) 100 Room Air 02/16/23 21:20 98 Room Air 02/16/23 21:16 36.5 87 120/60 (80) 97 Room Air 02/16/23 21:15 81 16 120/61 (80) 100 Room Air 02/16/23 21:00 84 16 113/67 (82) 95 Room Air 02/16/23 20:47 36.9 88 16 113/74 94 Room Air 02/16/23 20:45 85 16 127/60 (82) 95 Room Air 02/16/23 17:22 92 63/39 02/16/23 17:15 88 83/41 02/16/23 17:12 99 136/51 02/16/23 16:49 73 72/37 02/16/23 16:08 36.9 75 16 60/47 (51) 97 Room Air I & O 02/17/23 07:00 Intake Total 2300 ml Output Total 625 ml Balance 1675 ml Height & Weight Height: 5'1.00" Weight: 169lbs. 4.8oz. [id number]; 31.24 BMI Method:Stated General Appearance: No Apparent Distress, WD/WN HEENT: PERRL/EOMI, TMs Normal, Normal ENT Inspection, Pharynx Normal Neck: Full Range of Motion, Normal Inspection, Non Tender, Supple Respiratory: Chest Non Tender, Lungs Clear, Normal Breath Sounds, No Respiratory Distress Cardiovascular: Regular Rate, Rhythm, No Edema, No Gallop, No JVD, No Murmur Capillary Refill: Less Than 3 Seconds Peripheral Pulses: 1+ Dorsalis Pedis (R), 1+ Left Dors-Pedis (L) (see free text) Neurologic/Psychiatric: Alert, Oriented x3, No Motor/Sensory Deficits, Normal Mood/Affect, blocklayer II-XII Norm as Tested Skin: Normal Color, Warm/Dry Results Lab Laboratory Tests 02/16/23 18:00 02/17/23 04:29 Assessment/Plan Assessment/Plan 1 LEONARDA GUERRERO MD Feb 17, 2023 09:47
[2023-02-17] MEDS ORDERED: ASPI-1238 PO (10:18)
[2023-02-17] MEDS ORDERED: ATOR80TA76 PO (10:18)
[2023-02-17] MEDS ORDERED: ACET325T38 PO (10:18)
[2023-02-17] MEDS ORDERED: CLN.1T PO (10:18)
[2023-02-17] MEDS ORDERED: CLOP75TA28 PO (10:18)
[2023-02-17] MEDS ORDERED: LORA10TA76 PO (10:18)
[2023-02-17] MEDS ORDERED: NF-MINO10T PO (10:18)
[2023-02-17] MEDS ORDERED: LOSA100T58 PO (10:18)
[2023-02-17] MEDS ORDERED: AMLO-250 PO (10:18)
[2023-02-17] MEDS ORDERED: ACETAMINOPHEN 325 MG TABLET PO PRN (11:00)
[2023-02-17] MEDS ORDERED: FAMOTIDINE 20 MG TABLET PO NR (11:30)
--- NOTE | 2023-02-17 11:56 | Consultation-Cardiology ---
HPI-Cardiology Cardiology Consultation Date of Consultation 02/17/23 Date of Admission Time Seen by Provider: 11:52 Indication: Hypotension HPI 67-year-old lady with history of CVA, has history of hypertension resistant to multiple medication, had an episode of hypotension yesterday after work. She became lightheaded, severely hypotensive. Came in to the emergency room. Was i n acute renal failure in addition to her hypotension. Feeling better after receiving IV fluid. Denied any chest pain. No palpi tation. No full syncope Home Medications & Allergies Allergies: Coded Allergies: No Known Drug Allergies (Verified , 09/01/07) Home Medication List Reviewed: Yes [id number] Hx Patient Social History Marital Status: Employed/Student: employed Smoking Status: Never a Smoker 2nd Hand Smoke Exposure: No Recent Hopitalizations: No Alcohol Use?: No Immunizations Up To Date Tetanus Booster (TDap): Unknown Past Medical History Discussed below Family Medical History Significant Family History: No Pertinent Family Hx Review of Systems-General Review of Systems Constitutional: No chills, No diaphoresis; malaise, weakness EENTM: see HPI, no symptoms reported Respiratory: no symptoms reported, see HPI Cardiovascular: see HPI Gastrointestinal: no symptoms reported, see HPI Genitourinary: no symptoms reported, see HPI Musculoskeletal: No back pain Skin: No change in color, No change in hair/nails Psychiatric/Neurological: No Symptoms Reported, See HPI All Other Systems Reviewed Negative Unless Noted: Yes Reviewed Test Results Reviewed Test Results Lab Laboratory Tests Test 02/16/23 16:36 02/16/23 18:00 02/17/23 04:29 Range/Units Urine Color YELLOW Urine Clarity CLEAR Urine pH 5.5 5-9 Urine Specific [place] 1.010 L 1.016-1.022 Urine Protein TRACE H NEGATIVE Urine Glucose (UA) NEGATIVE NEGATIVE Urine Ketones NEGATIVE NEGATIVE Urine Nitrite NEGATIVE NEGATIVE Urine Bilirubin NEGATIVE NEGATIVE Urine Urobilinogen 0.2 < = 1.0 MG/DL Urine Leukocyte Esterase NEGATIVE NEGATIVE Urine RBC (Auto) TRACE H NEGATIVE Urine RBC NONE /HPF Urine WBC NONE /HPF Urine Squamous Epithelial Cells NONE /HPF Urine Crystals NONE /LPF Urine Bacteria NEGATIVE /HPF Urine Casts NONE /LPF Urine Mucus NEGATIVE /LPF Urine Culture Indicated NO White Blood Count 16.6 H 11.8 H 4.3-11.0 10^3/uL Red Blood Count 4.38 3.70 L 3.80-5.11 10^6/uL Hemoglobin 12.4 10.6 L 11.5-16.0 g/dL Hematocrit 39 32 L 35-52 % Mean Corpuscular Volume 88 87 80-99 fL Mean Corpuscular Hemoglobin 28 29 25-34 pg Mean Corpuscular Hemoglobin Concent 32 33 32-36 g/dL Red Cell Distribution Width 13.2 13.2 10.0-14.5 % Platelet Count 306 245 130-400 10^3/uL Mean Platelet Volume 10.4 10.3 9.0-12.2 fL Immature Granulocyte % (Auto) 1 0 % Neutrophils (%) (Auto) 61 61 42-75 % Lymphocytes (%) (Auto) 29 26 12-44 % Monocytes (%) (Auto) 10 12 0-12 % Eosinophils (%) (Auto) 0 1 0-10 % Basophils (%) (Auto) 0 0 0-10 % Neutrophils # (Auto) 10.0 H 7.2 1.8-7.8 10^3/uL Lymphocytes # (Auto) 4.7 H 3.0 1.0-4.0 10^3/uL Monocytes # (Auto) 1.6 H 1.4 H 0.0-1.0 10^3/uL Eosinophils # (Auto) 0.1 0.1 0.0-0.3 10^3/uL Basophils # (Auto) 0.1 0.0 0.0-0.1 10^3/uL Immature Granulocyte # (Auto) 0.1 0.0 0.0-0.1 10^3/uL Neutrophils % (Manual) 59 % Lymphocytes % (Manual) 30 % Monocytes % (Manual) 8 % Eosinophils % (Manual) 1 % Basophils % (Manual) 2 % Band Neutrophils 0 % Blood Morphology Comment NORMAL Prothrombin Time 13.6 12.2-14.7 SEC INR Comment 1.0 0.8-1.4 Activated Partial Thromboplast Time 32 24-35 SEC Sodium Level 144 143 135-145 MMOL/L Potassium Level 3.9 3.6 3.6-5.0 MMOL/L Chloride Level 115 H 117 H 98-107 MMOL/L Carbon Dioxide Level 18 L 19 L 21-32 MMOL/L Anion Gap 11 7 5-14 MMOL/L Blood Urea Nitrogen 24 H 23 H 7-18 MG/DL Creatinine 3.20 H 2.71 #H 0.60-1.30 MG/DL Estimat Glomerular Filtration Rate 15 19 BUN/Creatinine Ratio 8 8 Glucose Level 119 H 102 70-105 MG/DL Lactic Acid Level 0.84 0.50-2.00 MMOL/L Calcium Level 8.6 8.1 L 8.5-10.1 MG/DL Corrected Calcium 8.8 8.8 8.5-10.1 MG/DL Magnesium Level 1.7 1.5 L 1.6-2.4 MG/DL Total Bilirubin 0.3 0.3 0.1-1.0 MG/DL Aspartate Amino Transf (AST/SGOT) 23 19 5-34 U/L Alanine Aminotransferase (ALT/SGPT) 16 13 0-55 U/L Alkaline Phosphatase 83 70 40-136 U/L Myoglobin 229.0 H 10.0-92.0 NG/ML Troponin I < 0.028 <0.028 NG/ML B-Type Natriuretic Peptide 56.4 <100.0 PG/ML Total Protein 5.2 L 4.8 L 6.4-8.2 GM/DL Albumin 3.7 3.1 L 3.2-4.5 GM/DL Lipase 58 8-78 U/L Phosphorus Level 3.5 2.3-4.7 MG/DL Physical Exam Physical Exam Vital Signs Vital Signs - First Documented 02/16/23 02/16/23 16:08 22:07 Temp 36.9 Pulse 75 Resp 16 B/P (MAP) 60/47 (51) Pulse Ox 97 O2 Delivery Room Air FiO2 21 Capillary Refill : Less Than 3 Seconds Height, Weight, BMI Height: 5'1.00" Weight: 169lbs. 4.8oz. [id number]; 31.24 BMI Method:Stated General Appearance: No Apparent Distress, WD/WN HEENT: PERRL/EOMI, TMs Normal, Normal ENT Inspection, Pharynx Normal Neck: Full Range of Motion, Normal Inspection, Non Tender, Supple Respiratory: Chest Non Tender, Lungs Clear, Normal Breath Sounds, No Respiratory Distress Cardiovascular: Regular Rate, Rhythm, No Edema, No Gallop, No JVD, No Murmur Gastrointestinal: Normal Bowel Sounds, No Organomegaly, No Pulsatile Mass, Non Tender Neurologic/Psychiatric: Alert, Oriented x3, No Motor/Sensory Deficits, Normal Mood/Affect, cosmetic consultant II-XII Norm as Tested Skin: Normal Color, Warm/Dry A/P-Cardiology Admission Diagnosis Near syncope Hypotension Resistant hypertension History of CVA Assessment/Plan Near syncope, severe hypotension Patient has resistant hypertension on multiple medication. Currently holding medication, discontinue minoxidil. Cannot tolerate JESSA inhibitor and/or ARB. Acute on chronic renal failure Chronic kidney disease stage IV Monitored and managed by primary care physician Dehydration, better at this time. History of acute CVA with left-sided weakness Acute lacunar infarct in the thalamus on MRI. Started on aspirin and Plavix and statin Continue on telemetry Bradycardia and fatigue, exacerbated by the use of beta blockers. Intolerant to beta-blockers 2D echo was done on December 23, 2022 with normal LV size, EF 60 to 65%, mild mitral regurgitation, PA pressure 25 to 30 mmHg Hyperlipidemia, Maintained on Lipitor 80 mg daily Monitor lipids Confusion, better at this time. History of polymyositis. Following with [facility], maintained on Rituxan. Chronic kidney disease stage IV. Continue to monitor renal function History of pulmonary fibrosis, clinically stable. Gastroesophageal reflux disease Hypothyroidism. Followed and managed by primary care physician SHRUTHI RODRIGEZ MD Feb 17, 2023 11:56
--- NOTE | 2023-02-17 13:17 | History & Physical ---
KATE CLIFFORD 02/17/23 1317: History of Present Illness History of Present Illness Reason for visit/HPI Carolann Angel is a 67 year old female with a pmh of stage 4 CKD, polymyositis, ILD, HTN, and recent CVA on 01/28. She came into the ED yesterday with generalized weakness that started the day prior and had a near syncopal episode yesterday. At that time her daughter took her blood pressure and found a systolic pressure in the 70s, and it had been >200 the day prior. She takes clonidine and amlodipine for her HTN and she also was recommended to take minoxidil and took two doses of 10mg the day before she came in the ED. When I spoke with her this morning she denies headache, chest pain, shortness of breath, abdominal pain. She admits to left sided weakness, which is attributed to her recent CVA 3 weeks ago. Date of Admission Feb 16, 2023 at 20:56 Date Seen by a Provider: Feb 17, 2023 I consulted on this patient on 02/17/23 13:12 Attending Physician Meghana Maya MD Admitting Physician Admitting Physician: Yana Campa DO Attending Physician: Yana Campa DO Consult Allergies and Home Medications Allergies Coded Allergies: No Known Drug Allergies (Verified , 09/01/07) Patient Home Medication List Acetaminophen (Tylenol) 325 Mg Tablet, 650 MG PO Q6H PRN for PAIN-MILD (1-4), (Reported) Entered as Reported by: SANDRA MILLARD on 02/17/231017 Last Action: Continued Amlodipine Besylate (Amlodipine Besylate) 5 Mg Tablet, 5 MG PO DAILY, (Reported) Entered as Reported by: SANDRA MILLARD on 02/17/231017 Last Action: Held Aspirin (Aspirin EC) 81 Mg Tablet.dr, 81 MG PO DAILY, (Reported) Entered as Reported by: SANDRA MILLARD on 02/17/231017 Last Action: Continued Atorvastatin Calcium (Atorvastatin Calcium) 80 Mg Tablet, 80 MG PO DAILY, (Reported) Entered as Reported by: SANDRA MILLARD on 02/17/231017 Last Action: Continued Clonidine HCl (Clonidine HCl) 0.1 Mg Tablet, 0.1 MG PO TID, (Reported) Entered as Reported by: SANDRA MILLARD on 02/17/231017 Last Action: Held Clopidogrel Bisulfate (Clopidogrel) 75 Mg Tablet, 75 MG PO DAILY, (Reported) Entered as Reported by: SANDRA MILLARD on 02/17/231017 Last Action: Continued Famotidine (Famotidine) 40 Mg Tablet, 40 MG PO DAILY, (Reported) Entered as Reported by: JAN BLACKMON on 06/30/211219 Last Action: Converted Gabapentin (Neurontin) 300 Mg Capsule, 300 MG PO HS, (Reported) Entered as Reported by: JAN BLACKMON on 06/30/211219 Last Action: Continued Levothyroxine Sodium (Levothyroxine Sodium) 50 Mcg Tablet, 50 MCG PO DAILY, (Reported) Entered as Reported by: JAN BLACKMON on 06/30/211219 Last Action: Continued Loratadine (Claritin) 10 Mg Tablet, 10 MG PO DAILY, (Reported) Entered as Reported by: SANDRA MILLARD on 02/17/231017 Last Action: Continued Losartan Potassium (Losartan Potassium) 100 Mg Tablet, 100 MG PO DAILY, (Reported) Entered as Reported by: SANDRA MILLARD on 02/17/231017 Last Action: Held Minoxidil (Minoxidil) 10 Mg Tab, 10 MG PO BID, (Reported) Entered as Reported by: SANDRA MILLARD on 02/17/231017 Last Action: Held Multivitamin/Iron/Folic Acid (Centrum Adults Tablet) 1 Each Tablet, 1 EACH PO DAILY, (Reported) Entered as Reported by: JAN BLACKMON on 06/30/211219 Last Action: Continued Oxybutynin Chloride (Oxybutynin Chloride) 5 Mg Tablet, 2.5 MG PO DAILY, (Reported) Entered as Reported by: JAN BLACKMON on 06/30/211221 Last Action: Continued Potassium Chloride (Potassium Chloride) 10 Meq Tab.er.prt, 10 MEQ PO DAILY, (Reported) Entered as Reported by: JAN BLACKMON on 06/30/211219 Last Action: Held Venlafaxine HCl (Venlafaxine HCl ER) 150 Mg Tab.er.24, 150 MG PO DAILY, (Reported) Entered as Reported by: JAN BLACKMON on 06/30/211219 Last Action: Converted Discontinued Medications Amlodipine Besylate (Amlodipine Besylate) 5 Mg Tablet, 5 MG PO DAILY Discontinued Reason: Duplicate Order Prescribed by: YANA CAMPA on 01/28/23632 Last Action: Discontinued Aspirin (Aspirin EC) 81 Mg Tablet.dr, 81 MG PO DAILY Discontinued Reason: Duplicate Order Prescribed by: YANA CAMPA on 01/28/23632 Last Action: Discontinued Atorvastatin Calcium (Atorvastatin Calcium) 80 Mg Tablet, 80 MG PO DAILY Discontinued Reason: Duplicate Order Prescribed by: YANA CAMPA on 01/28/23632 Last Action: Discontinued Clonidine HCl (Clonidine HCl) 0.1 Mg Tablet, 0.1 MG PO TID Discontinued Reason: Duplicate Order Prescribed by: YANA CAMPA on 01/28/23632 Last Action: Discontinued Clopidogrel Bisulfate (Clopidogrel) 75 Mg Tablet, 75 MG PO DAILY Discontinued Reason: Duplicate Order Prescribed by: YANA CAMPA on 01/28/23632 Last Action: Discontinued Loratadine (Claritin) 10 Mg Tab.rapdis, 10 MG PO DAILY, (Reported) Discontinued Reason: No Longer Taking Entered as Reported by: JAN BLACKMON on 06/30/21 1220 Last Action: Discontinued Losartan Potassium (Losartan Potassium) 100 Mg Tablet, 100 MG PO DAILY Discontinued Reason: Duplicate Order Prescribed by: YANA CAMPA on 01/28/23632 Last Action: Discontinued Ondansetron (Ondansetron Odt) 4 Mg Tab.rapdis, 4 MG SL Q4H PRN for NAUSEA/VOMITING Discontinued Reason: No Longer Taking Prescribed by: ANASTASIA VU on 12/31/221404 Last Action: Discontinued Pantoprazole Sodium (Protonix) 40 Mg Tablet., 40 MG PO DAILY Discontinued Reason: No Longer Taking Prescribed by: ANASTASIA VU on 12/31/221404 Last Action: Discontinued Past Ybvhqgx-Cbjfnk-Vqscve Hx Patient Social History Marrital Status: Employed/Student: employed Tobacco Use?: No Smoking Status: Never a Smoker Use of E-Cig and/or Vaping dev: No Substance use?: No Alcohol Use?: No Pt feels they are or have been: No Immunizations Up To Date First/Initial COVID19 Vaccinat: AUGUST 2020 Second COVID19 Vaccination [place]: SEPTEMBER 2020 Tetanus Booster (TDap): Unknown PED Vaccines UTD: Yes Seasonal Allergies Seasonal Allergies: Yes Current Status Advance Directives: No Primary Language: Citizen Of [place] Preferred Spoken Language: Citizen Of [place] Is interpretation needed?: No Sensory deficits: Vision impairment Additional sensory deficits: CONTACTS Implanted or Applied Medical D: None Past Medical History Surgeries: Gallbladder Currently Using CPAP: No Currently Using BIPAP: No High Cholesterol, Hypertension Neuropathy [employer] History: Menopausal Renal Failure Gastroesophageal Reflux Hypothyroidsim Loss of Vision: Denies Hearing Impairment: Denies Anxiety, Depression Blood Disorders: Yes (ANEMIA) Adverse Reaction/Blood Tranf: No ASHLEYYemi Lilibeth 07/01/2015 Family Medical History No Pertinent Family Hx Review of Systems Constitutional: no symptoms reported, see HPI Respiratory: no symptoms reported, see HPI Cardiovascular: no symptoms reported, see HPI Gastrointestinal: no symptoms reported, see HPI All Other Systems Reviewed Negative Unless Noted: Yes Physical Exam Vital Signs Vital Signs - First Documented 02/16/23 02/16/23 16:08 22:07 Temp 36.9 Pulse 75 Resp 16 B/P (MAP) 60/47 (51) Pulse Ox 97 O2 Delivery Room Air FiO2 21 Capillary Refill : Less Than 3 Seconds Height, Weight, BMI Height: 5'1.00" Weight: 169lbs. 4.8oz. 76.003456co; 31.24 BMI Method:Stated General Appearance: No Apparent Distress, WD/WN Neck: Normal Inspection, Supple Respiratory: Chest Non Tender, Lungs Clear, Normal Breath Sounds, No Accessory Muscle Use, No Respiratory Distress Cardiovascular: Regular Rate, Rhythm, No Edema, No Gallop, No JVD, No Murmur, Normal Peripheral Pulses Neurologic/Psychiatric: Alert, Normal Mood/Affect Skin: Normal Color, Warm/Dry Assessment/Plan Assessment and Plan Assessment and Plan - Hypotension > patient currently maintained on levophed drip > BP stable now at 107/70 this morning, MAP 82 > discussed with patient holding ambulatory blood pressure medications, and discontinuing minoxidil use > continue IV fluids - Excessive use of anti-hypertensive medications > holding ambulatory BP meds for now as BP is still mildly low even on levophed drip > d/c further use of minoxidil - Polymyositis - Interstitial Lung Disease - Hypertension > holding ambulatory BP meds - Chronic Kidney Disease > Cr was 3.5 on admission, likely prerenal EARL on CKD secondary to hypotensive episode > downward trend, Cr 2.71 this morning > continue IV fluids YANA CAMPA DO 02/18/23 0444: History of Present Illness History of Present Illness Reason for visit/HPI Chief complaint: Syncope due to hypotension from meds HPI: This is a 67-year-old female known to me from admission from CVA completed rehab course and was just returning to work when she suffered a syncopal episode and found to have severe hypotension requiring aggressive IV fluid resuscitation and ICU admission with pressor therapy. She was found to have acute on chronic kidney disease. Apparently she has been taking minoxidil in the past due to hair loss but she restarted it for elevated blood pressure it was taking 10 mg twice daily in addition of clonidine and apparently she became extremely hypotensive. Currently she is doing much better and will move down to fourth floor. Time Seen by a Provider: 11:00 Allergies and Home Medications Allergies Coded Allergies: No Known Drug Allergies (Verified , 09/01/07) Patient Home Medication List Home Medication List Reviewed: Yes Acetaminophen (Tylenol) 325 Mg Tablet, 650 MG PO Q6H PRN for PAIN-MILD (1-4), (Reported) Entered as Reported by: SANDRA MILLARD on 02/17/231017 Last Action: Continued Amlodipine Besylate (Amlodipine Besylate) 5 Mg Tablet, 5 MG PO DAILY, (Reported) Entered as Reported by: SANDRA MILLARD on 02/17/231017 Last Action: Held Aspirin (Aspirin EC) 81 Mg Tablet.dr, 81 MG PO DAILY, (Reported) Entered as Reported by: SANDRA MILLARD on 02/17/23 101 Last Action: Continued Atorvastatin Calcium (Atorvastatin Calcium) 80 Mg Tablet, 80 MG PO DAILY, (Reported) Entered as Reported by: SANDRA MILLARD on 02/17/231017 Last Action: Continued Clonidine HCl (Clonidine HCl) 0.1 Mg Tablet, 0.1 MG PO TID, (Reported) Entered as Reported by: SANDRA MILLARD on 02/17/23 101 Last Action: Held Clopidogrel Bisulfate (Clopidogrel) 75 Mg Tablet, 75 MG PO DAILY, (Reported) Entered as Reported by: SANDRA MILLARD on 02/17/231017 Last Action: Continued Famotidine (Famotidine) 40 Mg Tablet, 40 MG PO DAILY, (Reported) Entered as Reported by: JAN BLACKMON on 06/30/211219 Last Action: Converted Gabapentin (Neurontin) 300 Mg Capsule, 300 MG PO HS, (Reported) Entered as Reported by: JAN BLACKMON on 06/30/211219 Last Action: Continued Levothyroxine Sodium (Levothyroxine Sodium) 50 Mcg Tablet, 50 MCG PO DAILY, (Reported) Entered as Reported by: JAN BLACKMON on 06/30/211219 Last Action: Continued Loratadine (Claritin) 10 Mg Tablet, 10 MG PO DAILY, (Reported) Entered as Reported by: SANDRA MILLARD on 02/17/231017 Last Action: Continued Losartan Potassium (Losartan Potassium) 100 Mg Tablet, 100 MG PO DAILY, (Reported) Entered as Reported by: SANDRA MILLARD on 02/17/231017 Last Action: Held Minoxidil (Minoxidil) 10 Mg Tab, 10 MG PO BID, (Reported) Entered as Reported by: SANDRA MILLARD on 02/17/231017 Last Action: Held Multivitamin/Iron/Folic Acid (Centrum Adults Tablet) 1 Each Tablet, 1 EACH PO DAILY, (Reported) Entered as Reported by: JAN BLACKMON on 06/30/211219 Last Action: Continued Oxybutynin Chloride (Oxybutynin Chloride) 5 Mg Tablet, 2.5 MG PO DAILY, (Reported) Entered as Reported by: JAN BLACKMON on 06/30/211221 Last Action: Continued Potassium Chloride (Potassium Chloride) 10 Meq Tab.er.prt, 10 MEQ PO DAILY, (Reported) Entered as Reported by: JAN BLACKMON on 06/30/211219 Last Action: Held Venlafaxine HCl (Venlafaxine HCl ER) 150 Mg Tab.er.24, 150 MG PO DAILY, (Reported) Entered as Reported by: JAN BLACKMON on 06/30/211219 Last Action: Converted Discontinued Medications Amlodipine Besylate (Amlodipine Besylate) 5 Mg Tablet, 5 MG PO DAILY Discontinued Reason: Duplicate Order Prescribed by: YANA CAMPA on 01/28/23632 Last Action: Discontinued Aspirin (Aspirin EC) 81 Mg Tablet.dr, 81 MG PO DAILY Discontinued Reason: Duplicate Order Prescribed by: YANA CAMPA on 01/28/23632 Last Action: Discontinued Atorvastatin Calcium (Atorvastatin Calcium) 80 Mg Tablet, 80 MG PO DAILY Discontinued Reason: Duplicate Order Prescribed by: YANA CAMPA on 01/28/23632 Last Action: Discontinued Clonidine HCl (Clonidine HCl) 0.1 Mg Tablet, 0.1 MG PO TID Discontinued Reason: Duplicate Order Prescribed by: YANA CAMPA on 01/28/23632 Last Action: Discontinued Clopidogrel Bisulfate (Clopidogrel) 75 Mg Tablet, 75 MG PO DAILY Discontinued Reason: Duplicate Order Prescribed by: YANA CAMPA on 01/28/23632 Last Action: Discontinued Loratadine (Claritin) 10 Mg Tab.rapdis, 10 MG PO DAILY, (Reported) Discontinued Reason: No Longer Taking Entered as Reported by: JAN BLACKMON on 06/30/21 1220 Last Action: Discontinued Losartan Potassium (Losartan Potassium) 100 Mg Tablet, 100 MG PO DAILY Discontinued Reason: Duplicate Order Prescribed by: YANA CAMPA on 01/28/23632 Last Action: Discontinued Ondansetron (Ondansetron Odt) 4 Mg Tab.rapdis, 4 MG SL Q4H PRN for NAUSEA/VOMITING Discontinued Reason: No Longer Taking Prescribed by: ANASTASIA VU on 12/31/221404 Last Action: Discontinued Pantoprazole Sodium (Protonix) 40 Mg Tablet.dr, 40 MG PO DAILY Discontinued Reason: No Longer Taking Prescribed by: ANASTASIA VU on 12/31/221404 Last Action: Discontinued Past Szwmpjy-Imjjcs-Urnmgh Hx Patient Social History Marrital Status: single Employed/Student: employed Smoking Status: Never a Smoker Past Medical History High Cholesterol, Hypertension Stroke Review of Systems Constitutional: see HPI, dizziness, malaise, weakness Physical Exam General Appearance: No Apparent Distress, WD/WN, Chronically ill Eyes: Bilateral Eye Normal Inspection, Bilateral Eye PERRL, Bilateral Eye EOMI HEENT: PERRL/EOMI, Normal ENT Inspection, Pharynx Normal Neck: Full Range of Motion, Normal Inspection, Non Tender, Supple, Carotid Bruit Respiratory: Chest Non Tender, Lungs Clear, Normal Breath Sounds, No Accessory Muscle Use, No Respiratory Distress Cardiovascular: Regular Rate, Rhythm, No Edema, No Gallop, No JVD, No Murmur, Normal Peripheral Pulses Gastrointestinal: Normal Bowel Sounds, No Organomegaly, No Pulsatile Mass, Non Tender, Soft Back: Normal Inspection, No CVA Tenderness, No Vertebral Tenderness Extremity: Normal Capillary Refill, Normal Inspection, Normal Range of Motion, Non Tender, No Calf Tenderness, No Pedal Edema Neurologic/Psychiatric: Alert, Oriented x3, No Motor/Sensory Deficits, Normal Mood/Affect Skin: Normal Color, Warm/Dry Lymphatic: No Adenopathy Assessment/Plan Assessment and Plan Assessment: Hypotensive shock due to minoxidil and clonidine Acute on chronic kidney disease with failure Recent CVA Plan: Moved to fourth floor Admission Diagnosis Admission Status: Inpatient Order (span 2 midnights) Reason for Inpatient Admission: Hypovolemic shock Supervisory-Addendum Brief Verification & Attestation Participated in pt care: history, MDM, physical Personally performed: exam, history, MDM, supervision of care Care discussed with: Medical Student Procedures: n/a Results interpretation: Verified all documentation Verification and Attestation of Medical Student E/M Service A medical student performed and documented this service in my presence. I reviewed and verified all information documented by the medical student and made modifications to such information, when appropriate. I personally performed the physical exam and medical decision making. Yana Campa, Feb 18, 2023,04:44 KATE CLIFFORD Feb 17, 2023 13:17 YANA CAMPA DO Feb 18, 2023 04:44
[2023-02-17] MEDS: NOREPINEPHRINE 8 MG/250 ML 250 ML IV SCH (14:00)
[2023-02-17] MEDS ORDERED: GABAPENTIN 300 MG CAPSULE PO SCH (21:00)
[2023-02-17] MEDS ORDERED: ENOXAPARIN 30 MG/0.3 ML SYRINGE SC SCH (21:00)
[2023-02-17] MEDS: cloNIDine 0.1 MG TABLET PO SCH (21:44)
[2023-02-18] MEDS: CEFEPIME INJECTION 1,000 MG in NS (IVPB) 50 ML 50 ML IV SCH (06:06)
[2023-02-18] MEDS: NS IV 1000 ML 1,000 ML IV SCH (06:06)
[2023-02-18] MEDS ORDERED: LEVOTHYROXINE 50 MCG TABLET PO SCH (06:30)
[2023-02-18] MEDS ORDERED: VENlafaxine XR 75 MG (EFFEXOR XR) CAP PO SCH (07:00)
[2023-02-18] MEDS ORDERED: LORATADINE 10 MG TABLET PO SCH (09:00)
[2023-02-18] MEDS ORDERED: OXYBUTYNIN 5 MG TABLET PO SCH (09:00)
[2023-02-18] MEDS ORDERED: CLOPIDOGREL 75 MG TABLET PO SCH (09:00)
[2023-02-18] MEDS ORDERED: ASPIRIN enteric coated 81MG TABLET PO SCH (09:00)
[2023-02-18] MEDS ORDERED: FAMOTIDINE 20 MG TABLET PO SCH (09:00)
[2023-02-18] MEDS ORDERED: THERAPEUTIC MULTIVITAMIN W/MINERALS TABLET PO SCH (09:00)
--- NOTE | 2023-02-18 09:02 | Cardiology Progress Note ---
Subjective Date Seen by Provider: Feb 18, 2023 Time Seen by Provider: 09:01 Subjective/Events-last exam Patient was seen at bedside, laying down comfortably, feeling better. Focused Exam Lactate Level 02/16/23 18:00: Lactic Acid Level 0.84 Objective-Cardiology Exam Last Set of Vital Signs Vital Signs 02/16/23 02/18/23 02/18/23 22:07 07:50 08:15 Temp 36.5 Pulse 89 Resp 24 B/P (MAP) 158/89 (112) Pulse Ox 99 O2 Delivery Room Air O2 Flow Rate 0.00 FiO2 21 I&O Intake and Output 02/18/23 00:00 Intake Total 3200 ml Output Total 1400 ml Balance 1800 ml Intake Oral 1100 ml IV Total 2100 ml Output Urine Total 1400 ml General: Alert, Oriented X3, Cooperative HEENT: Atraumatic, PERRLA Neck: Supple, No JVD, No Thyromegaly Lungs: Clear to Auscultation, Normal Air Movement Heart: Regular Rate, Normal S1, Normal S2, No Murmurs Abdomen: Normal Bowel Sounds, Soft, No Tenderness, No Hepatosplenomegaly, No Masses Extremities: No Clubbing, No Cyanosis, No Edema, Normal Pulses, No Tenderness/Swelling Skin: No Rashes, No Breakdown, No Significant Lesion Neuro: Normal Speech, Normal Tone, Sensation Intact Psych/Mental Status: Mental Status NL, Mood NL A/P-Cardiology Admission Diagnosis Near syncope Hypotension Resistant hypertension History of CVA Assessment/Plan Near syncope, severe hypotension Patient has resistant hypertension on multiple medication. Probably secondary to minoxidil and clonidine Cannot tolerate JESSA inhibitor and/or ARB. Cannot tolerate beta-blockers or calcium channel blockers due to bradycardia Starting back clonidine at 0.1 mg twice daily Blood pressure appears to be better. I will accept blood pressure less than 160 Acute on chronic renal failure Chronic kidney disease stage IV Monitored and managed by primary care physician Please consider nephrology consultation Dehydration, better at this time. History of acute CVA with left-sided weakness Acute lacunar infarct in the thalamus on MRI. Started on aspirin and Plavix and statin Continue on telemetry Bradycardia and fatigue, exacerbated by the use of beta blockers. Intolerant to beta-blockers 2D echo was done on December 23, 2022 with normal LV size, EF 60 to 65%, mild mitral regurgitation, PA pressure 25 to 30 mmHg Hyperlipidemia, Maintained on Lipitor 80 mg daily Monitor lipids Confusion, better at this time. History of polymyositis. Following with [facility], maintained on Rituxan. Chronic kidney disease stage IV. Continue to monitor renal function History of pulmonary fibrosis, clinically stable. Gastroesophageal reflux disease Hypothyroidism. Followed and managed by primary care physician SHRUTHI RODRIGEZ MD Feb 18, 2023 09:02
[2023-02-18] MEDS: DOCUSATE SODIUM 100 MG CAPSULE PO SCH (09:16)
[2023-02-18] MEDS: SENNOSIDES 8.6 MG TABLET PO SCH (09:17)
[2023-02-18] MEDS: cloNIDine 0.1 MG TABLET PO SCH (09:34)
--- NOTE | 2023-02-18 11:41 | Discharge Summary ---
Diagnosis/Chief Complaint Date of Admission Feb 16, 2023 at 20:56 Date of Discharge Discharge Date: Feb 18, 2023 Discharge Diagnosis Assessment: Hypotensive shock due to minoxidil and clonidine Acute on chronic kidney disease with failure Recent CVA Reason Hospital Visit Chief complaint: Syncope due to hypotension from meds HPI: This is a 67-year-old female known to me from admission from CVA completed rehab course and was just returning to work when she suffered a syncopal episode and found to have severe hypotension requiring aggressive IV fluid resuscitation and ICU admission with pressor therapy. She was found to have acute on chronic kidney disease. Apparently she has been taking minoxidil in the past due to hair loss but she restarted it for elevated blood pressure it was taking 10 mg twice daily in addition of clonidine and apparently she became extremely hypotensive. Currently she is doing much better and will move down to fourth floor. Discharge Summary Discharge Physical Examination Allergies: Coded Allergies: No Known Drug Allergies (Verified , 09/01/07) Vitals & I&Os Vital Signs Date Time Temp Pulse Resp B/P (MAP) Pulse Ox O2 Delivery O2 Flow Rate FiO2 02/18/23 08:15 99 Room Air 0.00 02/18/23 07:50 36.5 89 24 158/89 (112) 02/16/23 22:07 21 General Appearance: Alert, Oriented X3, Cooperative Respiratory: Clear to Auscultation Cardiovascular: Regular Rate Psych/Mental Status: Mental Status NL Hospital Course Was the Problem List Reviewed?: Yes Carolann Angel is a 67 year old female with past medical history of stage 4 CKD, ILD, HTN, polymyositis, and recent CVA on 01/28/23. She came into the ED on Tuesday (02/16) with generalized weakness that started the day prior and a near syncopal episode. She was brought into the ED and found to have a BP of 60/47. She takes clonidine and amlodipine for her HTN. She was previously prescribed Minoxidil in the past for hair loss. She recently was told she should use that for her blood pressure as well. She took two doses of 10mg Minoxidil the day prior to coming to the ED. She required vasopressor therapy with Levophed and IV fluid resuscitation to stabilize her BP. Her labs were significant for leukocytosis of 16.6 for which she was started on Cefepime and creatinine of 3.5. She had a chest xray, head CT, and abdominal xray (because of reported abdominal pain) and all were negative for any acute pathologies. On day 2 of her hospital stay (02/17) her Levophed drip was discontinued and her ambulatory clonidine 0.1 mg BID was restarted, she remained on IV fluids. She had a repeat chest xray that again was negative for any acute pathologies. Her blood pressure on day 3 (02/18) was 158/89 (MAP 112). Her leukocytosis improved to 11.8 and her creatinine trended down to 2.71. Given the improvement in her lab values and stabilization of her blood pressure she is ready to be discharged. KATE CLIFFORD Labs (last 24 hrs) Laboratory Tests 02/16/23 16:36: Urine Color YELLOW, Urine Clarity CLEAR, Urine pH 5.5, Urine Specific [place] 1.010L, Urine Protein TRACEH, Urine Glucose (UA) NEGATIVE, Urine Ketones NEGATIVE, Urine Nitrite NEGATIVE, Urine Bilirubin NEGATIVE, Urine Urobilinogen 0.2, Urine Leukocyte Esterase NEGATIVE, Urine RBC (Auto) TRACEH, Urine RBC NONE, Urine WBC NONE, Urine Squamous Epithelial Cells NONE, Urine Crystals NONE, Urine Bacteria NEGATIVE, Urine Casts NONE, Urine Mucus NEGATIVE, Urine Culture Indicated NO 02/16/23 18:00: White Blood Count 16.6H, Red Blood Count 4.38, Hemoglobin 12.4, Hematocrit 39, Mean Corpuscular Volume 88, Mean Corpuscular Hemoglobin 28, Mean Corpuscular Hemoglobin Concent 32, Red Cell Distribution Width 13.2, Platelet Count 306, Mean Platelet Volume 10.4, Immature Granulocyte % (Auto) 1, Neutrophils (%) (Auto) 61, Lymphocytes (%) (Auto) 29, Monocytes (%) (Auto) 10, Eosinophils (%) (Auto) 0, Basophils (%) (Auto) 0, Neutrophils # (Auto) 10.0H, Lymphocytes # (Auto) 4.7H, Monocytes # (Auto) 1.6H, Eosinophils # (Auto) 0.1, Basophils # (Auto) 0.1, Immature Granulocyte # (Auto) 0.1, Neutrophils % (Manual) 59, Lymphocytes % (Manual) 30, Monocytes % (Manual) 8, Eosinophils % (Manual) 1, Basophils % (Manual) 2, Band Neutrophils 0, Blood Morphology Comment NORMAL, Prothrombin Time 13.6, INR Comment 1.0, Activated Partial Thromboplast Time 32, Sodium Level 144, Potassium Level 3.9, Chloride Level 115H, Carbon Dioxide Level 18L, Anion Gap 11, Blood Urea Nitrogen 24H, Creatinine 3.20H, Estimat Glomerular Filtration Rate 15, BUN/Creatinine Ratio 8, Glucose Level 119H, Lactic Acid Level 0.84, Calcium Level 8.6, Corrected Calcium 8.8, Magnesium Level 1.7, Total Bilirubin 0.3, Aspartate Amino Transf (AST/SGOT) 23, Alanine Aminotransferase (ALT/SGPT) 16, Alkaline Phosphatase 83, Myoglobin 229.0H, Troponin I < 0.028, B- Type Natriuretic Peptide 56.4, Total Protein 5.2L, Albumin 3.7, Lipase 58 02/17/23 04:29: White Blood Count 11.8H, Red Blood Count 3.70L, Hemoglobin 10.6L, Hematocrit 32L , Mean Corpuscular Volume 87, Mean Corpuscular Hemoglobin 29, Mean Corpuscular Hemoglobin Concent 33, Red Cell Distribution Width 13.2, Platelet Count 245, Mean Platelet Volume 10.3, Immature Granulocyte % (Auto) 0, Neutrophils (%) (Auto) 61, Lymphocytes (%) (Auto) 26, Monocytes (%) (Auto) 12, Eosinophils (%) (Auto) 1, Basophils (%) (Auto) 0, Neutrophils # (Auto) 7.2, Lymphocytes # (Auto) 3.0, Monocytes # (Auto) 1.4H, Eosinophils # (Auto) 0.1, Basophils # (Auto) 0.0, Immature Granulocyte # (Auto) 0.0, Sodium Level 143, Potassium Level 3.6, Chloride Level 117H, Carbon Dioxide Level 19L, Anion Gap 7, Blood Urea Nitrogen 23H, Creatinine 2.71#H, Estimat Glomerular Filtration Rate 19, BUN/Creatinine Ratio 8, Glucose Level 102, Calcium Level 8.1L, Corrected Calcium 8.8, Magnesium Level 1.5L, Total Bilirubin 0.3, Aspartate Amino Transf (AST/SGOT) 19, Alanine Aminotransferase (ALT/SGPT) 13, Alkaline Phosphatase 70, Total Protein 4.8L, Albumin 3.1L, Phosphorus Level 3.5 Microbiology 02/16/23 MRSA Screen - Final, Complete MRSA not isolated 02/16/23 Blood Culture - Preliminary, Resulted No growth Pending Labs Microbiology Date/Time Source Procedure Growth Status 02/16/23 21:01 Nasal MRSA Screen - Final MRSA not isolated Complete 02/16/23 18:10 [place] Blood Culture - Preliminary No growth Resulted 02/16/23 18:00 [place] Blood Culture - Preliminary No growth Resulted Laboratory Tests 02/16/23 16:36: Urine Color YELLOW, Urine Clarity CLEAR, Urine pH 5.5, Urine Specific [place] 1.010, Urine Protein TRACE, Urine Glucose (UA) NEGATIVE, Urine Ketones NEGATIVE, Urine Nitrite NEGATIVE, Urine Bilirubin NEGATIVE, Urine Urobilinogen 0.2, Urine Leukocyte Esterase NEGATIVE, Urine RBC (Auto) TRACE, Urine RBC NONE, Urine WBC NONE, Urine Squamous Epithelial Cells NONE, Urine Crystals NONE, Urine Bacteria NEGATIVE, Urine Casts NONE, Urine Mucus NEGATIVE, Urine Culture Indicated NO 02/16/23 18:00: White Blood Count 16.6, Red Blood Count 4.38, Hemoglobin 12.4, Hematocrit 39, Mean Corpuscular Volume 88, Mean Corpuscular Hemoglobin 28, Mean Corpuscular Hemoglobin Concent 32, Red Cell Distribution Width 13.2, Platelet Count 306, Mean Platelet Volume 10.4, Immature Granulocyte % (Auto) 1, Neutrophils (%) (Auto) 61, Lymphocytes (%) (Auto) 29, Monocytes (%) (Auto) 10, Eosinophils (%) (Auto) 0, Basophils (%) (Auto) 0, Neutrophils # (Auto) 10.0, Lymphocytes # (Auto) 4.7, Monocytes # (Auto) 1.6, Eosinophils # (Auto) 0.1, Basophils # (Auto) 0.1, Immature Granulocyte # (Auto) 0.1, Neutrophils % (Manual) 59, Lymphocytes % (Manual) 30, Monocytes % (Manual) 8, Eosinophils % (Manual) 1, Basophils % (Manual) 2, Band Neutrophils 0, Blood Morphology Comment NORMAL, Prothrombin Time 13.6, INR Comment 1.0, Activated Partial Thromboplast Time 32, Sodium Level 144, Potassium Level 3.9, Chloride Level 115, Carbon Dioxide Level 18, Anion Gap 11, Blood Urea Nitrogen 24, Creatinine 3.20, Estimat Glomerular Filtration Rate 15, BUN/Creatinine Ratio 8, Glucose Level 119, Lactic Acid Level 0.84, Calcium Level 8.6, Corrected Calcium 8.8, Magnesium Level 1.7, Total Bilirubin 0.3, Aspartate Amino Transf (AST/SGOT) 23, Alanine Aminotransferase (ALT/SGPT) 16, Alkaline Phosphatase 83, Myoglobin 229.0, Troponin I < 0.028, B-Type Natriuretic Peptide 56.4, Total Protein 5.2, Albumin 3.7, Lipase 58 02/17/23 04:29: White Blood Count 11.8, Red Blood Count 3.70, Hemoglobin 10.6, Hematocrit 32, Mean Corpuscular Volume 87, Mean Corpuscular Hemoglobin 29, Mean Corpuscular Hemoglobin Concent 33, Red Cell Distribution Width 13.2, Platelet Count 245, Mean Platelet Volume 10.3, Immature Granulocyte % (Auto) 0, Neutrophils (%) (Auto) 61, Lymphocytes (%) (Auto) 26, Monocytes (%) (Auto) 12, Eosinophils (%) (Auto) 1, Basophils (%) (Auto) 0, Neutrophils # (Auto) 7.2, Lymphocytes # (Auto) 3.0, Monocytes # (Auto) 1.4, Eosinophils # (Auto) 0.1, Basophils # (Auto) 0.0, Immature Granulocyte # (Auto) 0.0, Sodium Level 143, Potassium Level 3.6, Chloride Level 117, Carbon Dioxide Level 19, Anion Gap 7, Blood Urea Nitrogen 23, Creatinine 2.71, Estimat Glomerular Filtration Rate 19, BUN/Creatinine Ratio 8, Glucose Level 102, Calcium Level 8.1, Corrected Calcium 8.8, Magnesium Level 1.5, Total Bilirubin 0.3, Aspartate Amino Transf (AST/SGOT) 19, Alanine Aminotransferase (ALT/SGPT) 13, Alkaline Phosphatase 70, Total Protein 4.8, Albumin 3.1, Phosphorus Level 3.5 Discharge Home Medications: Active Scripts Active Reported Claritin (Loratadine) 10 Mg Tablet 10 Mg PO DAILY Tylenol (Acetaminophen) 325 Mg Tablet 650 Mg PO Q6H PRN Atorvastatin Calcium 80 Mg Tablet 80 Mg PO DAILY Losartan Potassium 100 Mg Tablet 100 Mg PO DAILY Clopidogrel (Clopidogrel Bisulfate) 75 Mg Tablet 75 Mg PO DAILY Aspirin EC (Aspirin) 81 Mg Tablet.dr 81 Mg PO DAILY Clonidine HCl 0.1 Mg Tablet 0.1 Mg PO TID Amlodipine Besylate 5 Mg Tablet 5 Mg PO DAILY Oxybutynin Chloride 5 Mg Tablet 2.5 Mg PO DAILY TAKES OF A 5MG TAB Potassium Chloride 10 Meq Tab.er.prt 10 Meq PO DAILY Venlafaxine HCl ER (Venlafaxine HCl) 150 Mg Tab.er.24 150 Mg PO DAILY Centrum Adults Tablet (Multivitamin/Iron/Folic Acid) 1 Each Tablet 1 Each PO DAILY Levothyroxine Sodium 50 Mcg Tablet 50 Mcg PO DAILY Famotidine 40 Mg Tablet 40 Mg PO DAILY Neurontin (Gabapentin) 300 Mg Capsule 300 Mg PO HS Instructions to patient/family Please see electronic discharge instructions given to patient. MARLEY CAMPA DO Feb 18, 2023 11:41
--- NOTE | 2023-02-18 13:19 | Progress Note ---
KATE CLIFFORD 02/18/23 1319: Progress Note Carolann Angel is a 67 year old female with past medical history of stage 4 CKD, ILD, HTN, polymyositis, and recent CVA on 01/28/23. She came into the ED on Tuesday (02/16) with generalized weakness that started the day prior and a near syncopal episode. She was brought into the ED and found to have a BP of 60/47. She takes clonidine and amlodipine for her HTN. She was previously prescribed Minoxidil in the past for hair loss. She recently was told she should use that for her blood pressure as well. She took two doses of 10mg Minoxidil the day prior to coming to the ED. She required vasopressor therapy with Levophed and IV fluid resuscitation to stabilize her BP. Her labs were significant for leukocytosis of 16.6 for which she was started on Cefepime and creatinine of 3.5. She had a chest xray, head CT, and abdominal xray (because of reported abdominal pain) and all were negative for any acute pathologies. On day 2 of her hospital stay (02/17) her Levophed drip was discontinued and her ambulatory clonidine 0.1 mg BID was restarted, she remained on IV fluids. She had a repeat chest xray that again was negative for any acute pathologies. Her blood pressure on day 3 (02/18) was 158/89 (MAP 112). Her leukocytosis improved to 11.8 and her creatinine trended down to 2.71. Given the improvement in her lab values and s tabilization of her blood pressure she is ready to be discharged. YANA CAMPA DO 02/18/232050: Supervisory-Addendum Brief Verification & Attestation Participated in pt care: history, MDM, physical Personally performed: exam, history, MDM, supervision of care Care discussed with: Medical Student Procedures: n/a Results interpretation: Verified all documentation Verification and Attestation of Medical Student E/M Service A medical student performed and documented this service in my presence. I reviewed and verified all information documented by the medical student and made modifications to such information, when appropriate. I personally performed the physical exam and medical decision making. Yana Campa Feb 18, 2023,20:51 KATE CLIFFORD Feb 18, 2023 13:19 YANA CAMPA DO Feb 18, 2023 20:51
--- NOTE | 2023-02-18 13:33 | Physical Therapy Progress Note ---
Therapy Progress Note Upon PT arrival to room, RN discharging patient to home at [facility], per patient report. Patient declined skilled PT need. MARS SANCHEZ PT Feb 18, 2023 13:33
== END 2023-02-18 13:47 | disposition home or self-care (01) | DRG 292 ==
LOC: EDUNIT# 16:05 → ER 16:07 → ICU 20:56 → UNDODISIN 02-17 21:48
PROVIDERS: ADMIT Internal Medicine; ATTEND Internal Medicine
PROC: 06HM33Z Insertion of Infusion Device into Right Femoral Vein, Percutaneous Approach (ICD-10-PCS; principal; 2023-02-16)
DX: R57.9 Shock, unspecified (principal); I69.354 Hemiplegia and hemiparesis following cerebral infarction affecting left non-dominant side; N17.9 Acute kidney failure, unspecified; N18.4 Chronic kidney disease, stage 4 (severe); J84.9 Interstitial pulmonary disease, unspecified; M33.20 Polymyositis, organ involvement unspecified; M35.1 Other overlap syndromes; I12.9 Hypertensive chronic kidney disease with stage 1 through stage 4 chronic kidney disease, or unspecified chronic kidney disease; T46.7X5A Adverse effect of peripheral vasodilators, initial encounter; T46.5X5A Adverse effect of other antihypertensive drugs, initial encounter; R00.1 Bradycardia, unspecified; T46.1X5A Adverse effect of calcium-channel blockers, initial encounter; R53.83 Other fatigue; E86.0 Dehydration; R41.0 Disorientation, unspecified; H54.7 Unspecified visual loss; K21.9 Gastro-esophageal reflux disease without esophagitis; F41.9 Anxiety disorder, unspecified; E78.00 Pure hypercholesterolemia, unspecified; G62.9 Polyneuropathy, unspecified; I34.0 Nonrheumatic mitral (valve) insufficiency; E03.9 Hypothyroidism, unspecified; Z79.82 Long term (current) use of aspirin; Z79.899 Other long term (current) drug therapy
CPT/HCPCS: 36415; 36556; 51702; 70450; 71045; 74018; 80053; 81000; 83605; 83690; 83735; 83874; 83880; 84100; 84484; 85007; 85025; 85027; 85610; 85730; 87040; 87081; 93005; 93041

== ENCOUNTER 2023-02-23 08:13 | Outpatient (RCR) | payer MEDICARE, OTHER ==
[~2023-02-23 08:13] MED LIST changes: +ACET325T38 PO; +LORA10TA76 PO; +NF-MINO10T PO
== END 2023-02-24 | disposition home or self-care (01) ==
PROVIDERS: ATTEND Nurse Practitioner Family
DX: I63.9 Cerebral infarction, unspecified (principal); I10 Essential (primary) hypertension

== ENCOUNTER 2023-03-23 05:39 | Outpatient (CLI) | payer MEDICARE, OTHER ==
[~2023-03-23] VITALS: Ht 154.9 cm; Wt 74.9 kg
[2023-03-30] MEDS ORDERED: SUCR1TAB36 PO (09:07)
[2023-03-30] MEDS ORDERED: PANT40TA52 PO (09:07)
[2023-03-30] MEDS ORDERED: CLON1PAT33 TD (09:07)
== END 2023-03-30 09:17 | disposition home or self-care (01) ==
LOC: PREOP 05:39
PROVIDERS: ATTEND Surgery
DX: Z01.818 Encounter for other preprocedural examination (principal)

== ENCOUNTER 2023-03-24 08:47 | Outpatient (RCR) | payer MEDICARE, OTHER | END 2023-03-26 | disposition home or self-care (01) | PROVIDERS: ATTEND Nurse Practitioner Family | DX: I69.359 Hemiplegia and hemiparesis following cerebral infarction affecting unspecified side (principal); I10 Essential (primary) hypertension ==

== ENCOUNTER 2023-04-14 09:45 | Outpatient (RCR) | payer MEDICARE, OTHER ==
[~2023-04-14 09:45] MED LIST changes: +CLON1PAT33 TD; +PANT40TA52 PO; +SUCR1TAB36 PO
== END 2023-04-14 10:30 | disposition home or self-care (01) ==
PROVIDERS: ATTEND Nurse Practitioner Family
DX: I69.359 Hemiplegia and hemiparesis following cerebral infarction affecting unspecified side (principal); I10 Essential (primary) hypertension; R26.89 Other abnormalities of gait and mobility

== ENCOUNTER 2023-04-19 10:27 | Day surgery (SDC) | payer MEDICARE, OTHER ==
[~2023-04-19] VITALS: Ht 154.9 cm; Wt 74.9 kg
[2023-04-19] MEDS ORDERED: LACTATED RINGERS 1,000 ML 1,000 ML IV STA (11:04)
[2023-04-19] MEDS ORDERED: HURRICAINE EXT TUBE (BENZOCAINE) XX PRN (11:15)
[2023-04-19] MEDS ORDERED: proPOfol INJECTION 200 MG/20 ML VIAL IV ONE (11:17)
[2023-04-19 11:18] VITALS: BP 167/78
--- NOTE | 2023-04-19 11:34 | Progress Note-Post Operative ---
Post-Operative Progess Note Surgeon (s)/Kiln Remover (s) Surgeon GUERA NOVAK DO Kiln Remover: n/a Pre-Operative Diagnosis GERD Post-Operative Diagnosis paraesophageal hernia Procedure & Operative Findings Date of Procedure 04/19/23 Procedure Performed/Findings EGD w/ biopsies Anesthesia Type Per DO Estimated Blood Loss Estimated blood loss (mL): none Specimens/Packing Specimens Removed antrum and GE junction biopsies GUERA NOVAK DO Apr 19, 2023 11:34
[2023-04-19 11:35] VITALS: BP 161/98
--- NOTE | 2023-04-19 11:35 | Discharge Inst-Simple/Standard ---
Discharge Inst-Standard Patient Instructions/Follow Up Plan of Care/Instructions/FU: 2 weeks Juan Daniel Activity as Tolerated: Yes Discharge Diet: Regular Diet GUERA NOVAK DO Apr 19, 2023 11:35
[2023-04-19 13:15] VITALS: BP 161/98
--- NOTE | 2023-04-19 13:41 | Anesthesia-General Post-Op ---
MAC Patient Condition Mental Status/LOC: Same as Preop Cardiovascular: Satisfactory Nausea/Vomiting: Absent Respiratory: Satisfactory Pain: Controlled Complications: Absent Post Op Complications Complications None Follow Up Care/Instructions Patient Instructions None needed. Anesthesiology Discharge Order Discharge Order Patient was doing well after the procedure with no complaints, stable vital signs, no apparent adverse anesthesia problems. No complications reported per nursing. ISABEL MAGALLANES DO Apr 19, 2023 13:41
--- NOTE | 2023-04-19 19:12 | OPERATIVE REPORT ---
DATE OF SERVICE: 04/19/2023 PREOPERATIVE DIAGNOSIS: Gastroesophageal reflux disease. POSTOPERATIVE DIAGNOSIS: Paraesophageal hernia. PROCEDURES: EGD with biopsy. SURGEON: Guera Frances DO ANESTHESIA: Per MDA. ESTIMATED BLOOD LOSS: None. COMPLICATIONS: None. INDICATIONS: The patient is a 67-year-old female with GERD symptoms. She understands risks and benefits of procedure and wished to proceed. Consent was signed and in chart. DESCRIPTION OF PROCEDURE: The patient was taken to endoscopy suite, placed in left lateral recumbent position. Timeout was performed. Scope was inserted in the mouth, down the esophagus, stomach and duodenum without difficulty. There were no polyps, masses or ulcerations within the duodenum. Scope was slowly retracted back until stomach where it was further insufflated. No polyps, masses or ulcerations. Biopsy of the antrum was obtained. Scope was retroflexed noting a paraesophageal hernia. No polyps, masses or ulcerations. Scope was returned to its normal position, slowly withdrawn until the distal esophagus. Biopsy of the GE junction was obtained. No polyps, masses or ulcerations. Scope was slowly retracted back until completely removed. The patient tolerated the procedure well without complications, taken to recovery room in stable condition. RECOMMENDATIONS: The patient will follow up in 2 weeks. Continue current medications. We will await biopsy results to see how her symptoms are doing. Job ID: [id number] DocumentID: [id number] Dictated Date: 04/19/2023 11:35:02 Small Brake Form Operator Date: 04/19/2023 19:12:00 Dictated By: GUERA FRANCES DO
== END 2023-04-19 13:15 | disposition home or self-care (01) ==
LOC: ENDO 10:27
PROVIDERS: ATTEND Surgery
DX: K44.9 Diaphragmatic hernia without obstruction or gangrene (principal); K21.00 Gastro-esophageal reflux disease with esophagitis, without bleeding; K31.89 Other diseases of stomach and duodenum